=== PATIENT | male | born 1945 | race Caucasian/White ===

== ENCOUNTER 2022-04-04 09:41 | Outpatient (CLI) | payer MEDICARE, SELFPAY | END 2022-04-04 09:42 | disposition home or self-care (01) | LOC: CT 09:46 | PROVIDERS: Visit Provider Internal Medicine Hematology & Oncology | DX: C18.9 Malignant neoplasm of colon, unspecified (principal) | CPT/HCPCS: 80053; 82378; 85025 ==

== ENCOUNTER 2022-09-10 09:00 | Outpatient (RCR) | payer MEDICARE, SELFPAY ==
--- NOTE | 2022-08-13 14:25 | URNOTE ---
Request received for authorization forKathleen ([id number]). Prior authorization is not required per [facility] Injectable Drug Authorization List.
--- NOTE | 2022-08-15 12:15 | ONC.NURNOTE ---
Dx: anemia of chronic kidney disease
[2022-09-03 11:30] VITALS: BP 175/72; PULSE 78; RESP 18; TEMP 36.6; O2SAT 95
[2022-09-03] MEDS: ferumoxytoL 510 MG in 0.9 % SODIUM CHLORIDE 250 ml 250 ML 534 MG IVPB (12:05)
[2022-09-10] MEDS: ferumoxytoL 510 MG in 0.9 % SODIUM CHLORIDE 250 ml 250 ML 1068 MG IVPB (12:03)
[2022-09-10 12:32] VITALS: BP 188/71; PULSE 47; RESP 16; TEMP 36.4; O2SAT 97
[2022-09-10 13:01] VITALS: BP 166/60; PULSE 46; RESP 18; TEMP 36.6; O2SAT 96
== END 2022-10-11 23:59 | disposition home or self-care (01) ==
LOC: CCIC 09:00
PROVIDERS: Visit Provider Internal Medicine Medical Oncology
DX: C18.9 Malignant neoplasm of colon, unspecified (principal)
CPT/HCPCS: 96365; 96374; 99212; 99214; 99215; J7050; Q0138

== ENCOUNTER 2023-05-05 10:34 | Emergency (ER) | payer MEDICARE, SELFPAY ==
[2023-05-05] VITALS (23 sets, daily range): BP systolic 152–191; BP diastolic 61–84; PULSE 54–66; RESP 16; TEMP 36.7; O2SAT 90–94; BMI 47.3
--- NOTE | 2023-05-05 11:22 | CRLHL7_ITS ---
For Patients: As a result of the Cures Act, medical imaging exams and procedure reports are released immediately into your electronic medical record. You may view this report before your referring provider. If you have questions, please contact your health care provider. INDICATION: Shortness of breath. TECHNIQUE: Chest 2 view(s) COMPARISON: Chest radiograph dated 03/26/2018. FINDINGS: Cardiomediastinal silhouette and pulmonary vasculature are normal. Streaky right basilar opacities, likely atelectasis. No focal consolidation. No significant layering pleural effusion. No pneumothorax. Multilevel degenerative changes of the visualized spine. IMPRESSION: Streaky right basilar opacities, likely atelectasis. No focal consolidation. Dictated by Hyacinth Jaramillo MD @ 05/05/2023 1:21:28 PM (Electronically Signed)
--- NOTE | 2023-05-05 11:22 | CRLHL7_ITS ---
For Patients: As a result of the Century Cures Act, medical imaging exams and procedure reports are released immediately into your electronic medical record. You may view this report before your referring provider. If you have questions, please contact your health care provider. INDICATION: L FLANK PAIN, HX OF STONE TECHNIQUE: CT abdomen and pelvis without contrast. COMPARISON: CT chest abdomen pelvis on 04/03/2021 and priors FINDINGS: LOWER CHEST: The heart is normal in size. No pericardial effusion. Coronary artery calcifications. Similar-appearing right basilar atelectasis/scarring with right lower thoracic pleural calcifications and thickening ABDOMEN/PELVIS: Stable low-density 1.2 centimeter lesion at the superior right hepatic lobe, likely benign cyst/hemangioma. The spleen is unremarkable. Pancreatic atrophy. No focal pancreatic lesions or ductal dilatation. The adrenal glands are unremarkable. No renal calculi. No hydroureteronephrosis. There is a dense exophytic cystic-like lesion at the upper pole of the left kidney, incompletely evaluated on this examination but favored to represent a hemorrhagic cyst. Low-density exophytic cystic lesion in the interpolar region of the right kidney measuring approximately 2.8 centimeters on this exam, likely representing a simple cyst, unchanged. There is some perinephric stranding of the left kidney. The bladder is unremarkable in appearance. The seminal vesicles, and prostate are unremarkable in appearance. No evidence of bowel obstruction. The appendix is normal in appearance. Sigmoid diverticulosis with some questionable faint pericolonic inflammatory changes. No free fluid or free air. No pathologically enlarged lymph nodes throughout the abdomen or pelvis. No abdominal aortic aneurysm. SOFT TISSUE/MUSCULOSKELETAL: Fat containing left inguinal hernia. No acute fracture or malalignment. 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 IMPRESSION: 1. No obstructing stones. No hydroureteronephrosis. 2. Minimal left perinephric stranding, a nonspecific finding. 3. Sigmoid diverticulosis with questionable faint pericolonic inflammatory changes, equivocal for mild acute sigmoid diverticulosis. 4. Hyperdense exophytic cystic lesion at the upper pole of the left kidney, favored to represent a hemorrhagic cyst, incompletely characterized on this exam. Recommend nonemergent, outpatient CT or MRI with a renal protocol for further assessment. Please note that all CT scans at this facility use dose modulation, iterative reconstruction, and/or weight-based dosing when appropriate to reduce radiation dose to as low as reasonably achievable. Dictated by Alfredo Smith MD @ 05/05/2023 12:40:42 PM (Electronically Signed)
--- OUTSIDE RECORDS SUMMARY | 2023-05-05 11:57 | XMS_ITS | Clinical Summary ---
Author Name Unknown Organization [facility] Address [address] [place] [address] Care Team Providers Care Process Equipment Operator Name Role Phone Clover Delaney M.D. Primary Care Provider [phone] Source Comments Patient records contain information from all sites at [facility]. For routine questions regarding patient records, call [phone] during business hours, M-F 8:00 AM - 5:00 PM Central Time. Record requests for emergency care only can be directed to [phone] at any time.[facility] Allergies Active Allergy Reactions Criticality Noted Date Comments Epinephrine Palpitations High 11/11/2012 Tachycardia Penicillins Itching,Rash Medium 11/11/2012 Medications Medication Sig Dispensed Refills Start Date End Date Status miscellaneous medical supply mis CPAP Supplies See Instructions, CPAP machine, mask 1 ea x 4 refills, headgear 1 ea x 2 refills, tubing 1 ea x 4 refills, filters 2 ea per month, tub 1 ea x 2 refills, mask seal 1 ea x 2 refills DX G47.33, length of need 99, 1 each, 0 Refill(s) 0 10/20/2016 Active miscellaneous medical supply misc Head Gear for CPAP Machine See Instructions, fax to patient at [phone], 1 each 0 01/17/2014 Active MULTIVITAMIN ORAL Daily Multiple Vitamins See Instructions, Take 1 tablet by mouth daily. 0 07/23/2013 Active ONETOUCH DELICA LANCETS 33 gauge misc 3 08/02/2018 Active loperamide (IMODIUM A-D) 2 mg tablet Take 2 mg by mouth as needed. 0 Active aspirin 81 mg chewable tablet Chew 1 tablet (81 mg total) daily. 90 tablet 3 01/06/2020 Active cyanocobalamin (VITAMIN B12) 1,000 mcg tablet Take 1,000 mcg by mouth daily. 0 Active DME CPAPIndications:Obs tructive Sleep Apnea Adult DME Order 1 each 0 08/27/2021 Active OneTouch Ultra Test stripsIndications:D iabetes Mellitus Type 2 (HCC) Use to test once daily 100 strip 3 12/31/2021 Active UltiCare Pen Needle 31 gauge x 1/4 needleIndications:D iabetes Mellitus Type 2 With Diabetic Neuropathy Hyperglycemic (HCC) Use to inject insulin daily 100 each 3 03/31/2022 Active pen needle, diabetic (UltiCare Pen Needle) 32 gauge x 1/4 needle 1 Injection daily. 100 each 3 04/07/2022 Active cholecalciferol (VITAMIN D3) 50 mcg (2,000 Unit) tablet Take 50 mcg by mouth daily. 0 Active multivitamin-eye (PRESERVISION LUTEIN) 226 mg-90 mg-5 mg-0.8 mg capsule Take 2 capsules by mouth daily. 0 Active iron,carbonyl-vitam in C (VITRON-C) 65 mg iron- [address] tablet Take 65 mg of iron by mouth daily. Do not crush or chew. 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 8 each 3 06/09/2022 4 Active irbesartan (AVAPRO) 75 mg tablet Take 1 tablet (75 mg total) by mouth daily. 90 tablet 3 07/29/2022 Active carvediloL (COREG) 12.5 mg tablet TAKE ONE TABLET BY MOUTH TWICE A DAY WITH MEALS 180 tablet 3 09/03/2022 Active glipiZIDE (GLUCOTROL XL) 10 mg 24 hr tabletIndications:D iabetes Mellitus Type 2 Hyperglycemia (HCC) Take 2 tablets (20 mg total) by mouth daily. 180 tablet 3 09/05/2022 Active predniSONE (DELTASONE) 5 mg tablet TAKE ONE TABLET BY MOUTH ONE TIME DAILY 90 tablet 3 10/23/2022 Active prednisoLONE acetate (PRED FORTE) 1 % ophthalmic suspension Instill 1 drop in left eye once daily 5 mL 0 11/06/2022 Active prednisoLONE acetate (PRED FORTE) 1 % ophthalmic suspension place 1 drop into the left eye once daily. 5 mL 0 11/06/2022 Active torsemide (DEMADEX) 10 mg tablet Take 3 tablets (30 mg total) by mouth daily. 270 tablet 3 01/16/2023 4 Active prednisoLONE acetate (PRED FORTE) 1 % ophthalmic suspension place 1 drop into the left eye once daily. 5 mL 0 02/05/2023 Active polyethylene glycol-electrolytes (GoLYTELY) 236-22.74-6.74 -5.86 gram solutionIndications :Cancer Colon Transverse Personal History Drink 1st portion of prep at 6 PM the evening before. 2nd portion must be started 3 hours before and finished 2 hours prior to report time 4000 mL 0 03/09/2023 Active insulin glargine (Lantus Solostar U-100 Insulin) 100 unit/mL (3 mL) injectionIndication s:Diabetes Mellitus Type 2 Hyperglycemia (HCC) Inject 16 Units under the skin at bedtime. 15 mL 3 03/16/2023 Active amLODIPine (NORVASC) 10 mg tablet Take 1 tablet (10 mg total) by mouth daily. 90 tablet 3 03/30/2023 4 Active doxazosin (CARDURA) 2 mg tablet Take 1 tablet (2 mg total) by mouth daily. 90 tablet 3 04/07/2023 4 Active sodium bicarbonate 650 mg tablet Take 1 tablet (650 mg total) by mouth 2 (two) times a day. 180 tablet 3 04/07/2023 Active sevelamer carbonate (RENVELA) 800 mg tablet Take 1 tablet (800 mg total) by mouth 3 (three) times a day with meals. 270 tablet 3 04/07/2023 4 Active calcium carbonate (TUMS) 500 mg (200 mg calcium) chewable tablet Chew 1 tablet (200 mg of calcium total) 3 (three) times a day with meals. 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 Sewell (oncology, [place]), follow up Dr. Sewell 6-12 months with CEA and labs Future colonoscopies: clear liquid diet (no red liquids) 2-3 days prior ? to beginning colonoscopy preparation. An alternate large-volume ? preparation should be used, given the inadequacy the of the initial ? preparation 03/2022. ? 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 Has benign features. Per oncology and repeat imaging was stable as of 03/2020 and determined to be benign ([facility]). 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 Did not tolerate CCB. Last Assessment & Plan: Tolerating lisinopril 5mg. BP not controlled. Increase to 10mg and recheck BMP in 2-3 weeks. Resolved Problems Problem Noted Date Diagnosed Date Resolved Date Unspecified Purulent Endophthalmitis Left Eye 11/12/19 22 03/04/2022 Wound Foot Open Subsequent Left 01/30/2018 07/01/2018 Wound Foot Open Subsequent Right 01/30/2018 07/01/2018 Wound Lower Leg Open Subsequent Right 01/30/2018 07/01/2018 Enterocolitis Due To Clostri dium Difficile Not Specified As Recurrent 01/29/2018 07/01/2018 Failure Renal Acute (Acute Kidney Injury) 01/26/2018 02/11/2019 Wound Foot Open Initial Right 01/26/2018 03/08/2018 Wound Foot Open Initial Left 01/26/2018 03/08/2018 Edema Leg 01/22/2018 07/01/2018 Fatigue 12/01/2017 07/01/2018 Overview: Added automatically from request for surgery [id number] Hematochezia 11/09/2017 07/01/2018 Overview: Added automatically from request for surgery [id number] Diarrhea 11/09/2017 09/28/2018 Overview: S/P recurrent c diff. Tolerates 1500mg metformin per day. Cancer Colon Family History 01/19/2015 01/06/2020 Encounters Date Type Department Care Team Description 05/05/2023 Refill Department of Community Internal Medicine in [address] [place] [phone] Clover Delaney M.D. Med Refill 04/21/2023 12:33 PM VE TEACHER - 04/21/2023 11:59 PM VE TEACHER Hospital Encounter Department of Laboratory Medicine in [address] [phone] Clover Delaney M.D. Chronic Kidney Disease (CKD), Stage 3b Glomerular Filtration Rate (GFR) 30 To 44 (HCC); 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) Discharge Disposition: Home or Self Care 04/17/2023 Orders Only Department of [facility] Internal Medicine in [place] [address] [place] [phone] Clover Delaney M.D. 04/15/2023 Orders Only Division of Nephrology and Hypertension in [address] [phone] Yris Hughes, L.G.S.W., M.S.W. Chronic Kidney Disease Stage 5 Glomerular Filtration Rate Less Than 15 (HCC) (Primary Dx) 04/13/2023 Orders Only Department of [facility] Internal Medicine in [place] [address] [place] [phone] Clover Delaney M.D. 04/07/2023 1:50 PM VE TEACHER Ancillary Procedure Department of Gastroenterology 04/07/2023 1:01 PM VE TEACHER - 04/07/2023 11:59 PM VE TEACHER Hospital Encounter Division of Gastroenterology in [place], [place] [address] [place] [address] Clover Delaney M.D. Cancer Colon Transverse Personal History Discharge Disposition: Home or Self Care 04/07/2023 9:15 AM VE TEACHER Telemedicine Division of Nephrology and Hypertension in [place], [place] [address] [place] [address] Mónica Portillo APRN, C.N.P., M.S. Hypertension And Chronic Kidney Disease Stage 5 (HCC) (Primary Dx); Proteinuria; 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; Acute Metabolic Acidosis; Hyperphosphatemia; Hypocalcemia 04/06/2023 10:30 AM VE TEACHER Diagnostic Department of Family Medicine, [facility], in [address] [place] [address] Mónica Portillo APRN, C.N.P., M.S. Hypertension And Chronic Kidney Disease Stage 5 (HCC) Discharge Disposition: Home or Self Care 04/01/2023 Orders [facility] [place] [place] [address] [place] [address] Frances Farah R.N. Chronic Kidney Disease (CKD), Stage 3b Glomerular Filtration Rate (GFR) 30 To 44 (HCC) (Primary Dx); Chronic Kidney Disease Stage 4 Glomerular Filtration Rate 15-29 (HCC) 03/30/2023 2:00 PM VE TEACHER Infusion Department of Infusion Therapy in [address] [phone] Mónica Portillo APRN, C.N.P., M.S. Anemia Of Chronic Renal Disease (Primary Dx) 03/30/2023 1:00 PM VE TEACHER Nurse Only Department of Family Medicine, [facility], in [address] [phone] Mónica Portillo APRN, C.N.P., M.S. Basilia Santiago L.P.N. Blood Pressure Check Discharge Disposition: Home or Self Care 03/30/2023 12:14 PM VE TEACHER - 03/30/2023 11:59 PM VE TEACHER Hospital Encounter Department of Laboratory Medicine in [address] [phone] Mónica Portillo APRN C.N.P., M.S. Hypertension And Chronic Kidney Disease Stage 5 (HCC); Anemia Of Chronic Renal Disease Discharge Disposition: Home or Self Care 03/30/2023 12:13 PM VE TEACHER Hospital Encounter Department of Laboratory Medicine in [address] [phone] Mónica Portillo APRN C.N.P., M.S. Hypertension And Chronic Kidney Disease Stage 5 (HCC); Anemia Of Chronic Renal Disease Discharge Disposition: Home or Self Care 03/30/2023 Clinical Communication Department of [facility] Internal Medicine in [place] [address] [place] [phone] Clover Delaney M.D. Follow-up Orders (Patient returning call to [place] to a Kathleen? I do not see any message./ ) 03/30/2023 Orders Only Division of Nephrology and Hypertension in [place], [place] [address] [place] [address] Mónica Portillo APRN, C.N.P., M.S. Hypertension And Chronic Kidney Disease Stage 5 (HCC) (Primary Dx) 03/30/2023 Orders Only Division of Nephrology and Hypertension in [place], [place] [address] [place] [address] Mónica Portillo APRN, C.N.P., M.S. 03/27/2023 Nurse Triage Department of Community Internal Medicine in [place] [address] [place] [phone] Tahira Melton R.N. Earwilbert 03/11/2023 Refill Division of Nephrology and Hypertension in [place], [place] [address] [place] [address] Mónica Portillo APRN, C.N.PJosé Luis, M.S. Med Refill 03/11/2023 Refill Department of [facility] Internal Medicine in [place] [address] [place] [phone] Clover Delaney M.D. Med Refill 03/09/2023 Clinical Communication Department of [facility] Internal Medicine in [address] [place] [phone] Clover Delaney M.D. 03/06/2023 3:00 PM VE TEACHER Office Visit Department of Ophthalmology in [place], [place] [address] [place] [phone] Justin Bunch M.D. 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 Anemia Of Chronic Renal Disease (Primary Dx) 03/02/2023 12:36 PM VE TEACHER - 03/02/2023 11:59 PM VE TEACHER Hospital Encounter Department of Laboratory Medicine in [address] [phone] Mónica Portillo APRN, C.N.P., M.S. Anemia Of Chronic Renal Disease Discharge Disposition: Home or Self Care 03/02/2023 8:30 AM VE TEACHER Telemedicine Division of Nephrology and Hypertension in [place], [place] [address] [place] [phone] Mónica Portillo APRN, Kassandra.N.P., M.S. Hypertension And Chronic Kidney Disease Stage 5 (HCC) (Primary Dx); Anemia Of Chronic Renal Disease 03/02/2023 Orders Only Division of Nephrology and Hypertension in [place], [place] [address] [place] [phone] Mónica Portillo APRN, C.N.P., M.S. 03/02/2023 Clinical Communication Department of Infusion Therapy in [address] [phone] Elaina Rueda R.N. Med Question (Feraheme) 02/26/2023 8:59 AM CDT - 02/26/2023 11:59 PM CDT Hospital Encounter Department of Laboratory Medicine in [address] [place] [phone] Mónica Portillo APRN, C.N.P., M.S. 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 Med Refill from Last 3 Months Immunizations Name Administration Dates Next Due DTaP (Infanrix, Tripedia) 05/08/2008 HepA Adult 11/22/1999,05/17/1999 HepB, Unspecified 09/05/2022(Deferred: Other) Influenza (IM) Preservative Free 01/25/2009,11/0 04/2007 Influenza Split 01/25/2009, 8,02/15/1997,1995 Influenza high dose QV(65 ye ars or older) (PF) 03/10/2022,02/02/2021 Influenza, Seasonal, Injectable 02/18/20 14,03/10/2006,03/10/2006,2004,03/27/2005,04/03/2003,04/03/2003,1 06/07/2001,04/06/2002,04/22/2001, 001,05/01/2000,05/01/2000,03/18/1999,,03/26/1998,03/26/1998,02/15/19 97,02/16/1996 Influenza, Unspecified 03/10/2016,03/08/2015, PCV13 03/08/2015 PPSV23 02/11/2019,03/01/2009,02/16/1996 RZV (SHINGRIX) 09/05/2022(Deferred: Patient dec ision) SARS-COV-2 (COVID-19) - PFIZ ER (12 years or older) 06/19/2020 SARS-COV-2 (COVID-19) - PFIZ ER TS(12 years or older) 10/05/2021 Td Preservative Free (TENIVA C, DECAVAC) 02/11/2019 Td, (Adult) Unspecified 02/16/1996 Tdap 05/08/2008 Tuberculin Skin Test, Unspecified 02/02/2018 influenza high dose (65 year s or older) (PF) 02/11/2019,02/10/2018,03/17/2017,2015,03/08/2015 influenza vaccine QV(FLUBLOK ) (18 years or older) (PF) 01/27/2020 Family History Medical History Relation Name Comments Pancreatic cancer Aunt paternal Cancer Father Sea Sanchez colon Colon cancer Father Sea Sanchez 4 1/2 yrs later after diagnosed Suicide Attempts Maternal Grandfather Benja Bermeo Com mitted suicide in 1955 Anesthesia problems Mother Nora Sanchez ponv Cancer Mother Nora Sanchez colon Colon cancer Mother Nora Sanchez Had it for 7 to 8 yrs prior to Depression Mother Nora Sanchez Hypertension Mother Nora Sanchez Obesity Mother Nora Sanchez Rectal cancer Mother Nora Sanchez Stroke Paternal Grandfather Zurdo sanchez in March 1960 Cancer Sister Kristin Sanchez colon Colon cancer Sister Kristin Sanchez A survivor, lance gnosed March 2005 Depression Sister Kristin Hargrovetad Hypertension Sister Kristin Ruizd Obesity Sister Kristin Sanchez Sleep apnea Sister Kristin Sanchez Heart disease Neg Hx Relation Name Status Comments Aunt paternal Father Sea Sanchez Maternal Grandfather Benja Bermeo Mother Nora Sanchez Paternal Grandfather Zurdo sanchez Sister Kristin Sanchez Alive Social History Tobacco Use Types Packs/Day Years Used Date Smoking Tobacco: Former Cigarettes 0 19 0 1961 - 12/26/1980 Smokeless Tobacco: Never Tobacco Cessation:Counseling Given: Not Answered Alcohol Use Standard Drinks/Week Comments Yes 0 (1 standard drink = 0.6 oz pur e alcohol) Maybe one drink per month Humiliation, Afraid, Rape, and Kick questionnair e Answer Date Recorded Within the last year, have y ou been afraid of your partner or ex-partner? No 07/28/2022 Within the last year, have y ou been humiliated or emotionally abused in other ways by your partner or ex-partner? No Within the last year, have y ou been kicked, hit, slapped, or otherwise physically hurt by your partner or ex-partner? No 07/28/2022 Within the last year, have y ou been raped or forced to have any kind of sexual activity by your partner or ex-partner? No 07/28/2022 Social Connection and Isolation Panel [NHANES] A nswer Date Recorded In a typical week, how many times do you talk on the phone with family, friends, or neighbors? Once a week 07/29/19 How often do you get togethe r with friends or relatives? Once a week 07/28/2022 How often do you attend chur ch or restorationism services? Never 07/28/2022 Do you belong to any clubs o r organizations such as taoist groups, unions, fraternal or athletic groups, or school groups? Yes 07/28/2022 How often do you attend meet ings of the clubs or organizations you belong to? 1 to 4 times per year 07/28/2022 Are you , , di vorced, , never , or living with a partner? 07/28/2022 AUDIT-C Answer Date Recorded Q1: How often do you have a drink containing alc ohol? Monthly or less 07/28/2022 Q2: How many drinks containi ng alcohol do you have on a typical day when you are drinking? 1 or 2 07/28/2022 Q3: How often do you have si x or more drinks on one occasion? Never 07/28/2022 Overall Financial Resource Strain (CARDIA) Answe r Date Recorded How hard is it for you to pa y for the very basics like food, housing, medical care, and heating? Not very hard 07/28/2022 PHQ-2 Answer Date Recorded PHQ-2 Score 0 06/06/2022 [facility] - Occupational Stress Questionnaire Answer Date Recorded Do you feel stress - tense, restless, nervous, or anxious, or unable to sleep at night because your mind is troubled all the time - these days? Only a little 07/28/2022 Exercise Vital Sign Answer Date Recorde d On average, how many days pe r week do you engage in moderate to strenuous exercise (like a brisk walk)? 4 days 07/28/2022 On average, how many minutes do you engage in exercise at this level? 30 min 07/28/2022 Hunger Vital Sign Answer Date Recorded Within the past 12 months, y ou worried that your food would run out before you got the money to buy more. Never true 07/29/19 23 Within the past 12 months, t he food you bought just didn't last and you didn't have money to get more. Never true 07/28/2022 PRAPARE - Transportation Answer Date Re corded In the past 12 months, has l ack of transportation kept you from medical appointments or from getting medications? No 06/2022 In the past 12 months, has l ack of transportation kept you from meetings, work, or from getting things needed for daily living? No 07/28/2022 Housing Stability Vital Sign Answer Awais e Recorded In the last 12 months, was t here a time when you were not able to pay the mortgage or rent on time? No 07/28/2022 In the last 12 months, how many places have you lived? 1 07/28/2022 In the last 12 months, was t here a time when you did not have a steady place to sleep or slept in a snf (including now)? No 07/28/2022 Depression Answer Date Recor ded PHQ-9 Total Score (max 27) 4 06/06 Nutrition Answer Date Recorded Nutrition: EVOO Fat Source Yes 07/28 On average, how many serving s of fruits and vegetables do you eat per day (serving size is equal to 1 cup or approximately the size of a tennis ball)? 4-5 07/28/2022 Dental Answer Date Recorded Dental: Regular Dentist Yes 06/20/19 Employment Answer Date Recorded Employment status Employed and actively working without restrictions 07/28/2022 Education Answer Date Recorded What is the highest level of school you have completed or the highest degree you have received? Professional school degree (e.g., MD, DDS, DVM, NACHO) 10/10/2020 Sex and Gender Information Value Date Recorded Sex Assigned at Male 05/13/2021 10:11 AM VE TEACHER Gender Identity Male 11/02/2017 7:22 PM CDT Sexual Orientation Straight 11/02/2017 7: 22 PM CDT Last Filed Vital Signs Vital Sign Reading Time Taken Comments Blood Pressure 174/83 04/07/2023 2:34 PM VE TEACHER Pulse 56 04/07/2023 2:34 PM VE TEACHER Temperature 36.7 ??C (98.1 ??F) 04/07/2023 2 :34 PM VE TEACHER Respiratory Rate 17 04/07/2023 2:34 PM VE TEACHER Oxygen Saturation 96% 04/07/2023 2:3 4 PM VE TEACHER Inhaled Oxygen Concentration - - Weight 152 kg (335 lb) 03/02/2023 8:22 AM VE TEACHER patient reported Height 177.8 cm (5' 10) 04/07/2023 1:1 9 PM VE TEACHER Body Mass Index 48.5 03/31/2022 2:55 PM VE TEACHER Plan of Treatment Upcoming Encounters Date Type Department Care Team (Latest Contact Info) Description 05/28/2023 10:00 AM VE TEACHER Appointment Department of Laboratory Medicine in [place] [address] [place] [address] Mónica Portillo APRN, C.N.P., M.S. [address] [place] [phone] 05/28/2023 10:10 AM VE TEACHER Appointment Department of Laboratory Medicine in [place] [address] [place] [phone] Mónica Portillo APRN, C.N.P., M.S. [address] [place] [phone] 05/29/2023 8:00 AM VE TEACHER Office Visit Department of Community Internal Medicine in [place] [address] [place] [phone] Clover Delaney M.D. [address] [place] [phone] Discharge Disposition: Home or Self Care 05/29/2023 10:15 AM VE TEACHER Appointment Department of Radiology, [facility], in [place], [place] [address] [place] [phone] Mónica Portillo APRN, C.N.P., M.S. [address] [place] [phone] 05/29/2023 1:00 PM VE TEACHER Procedure visit Department of Urology in [place], [place] [address] [place] [phone] Mónica Portillo APRN, C.N.P., M.S. [address] [place] [phone] 05/29/2023 3:00 PM VE TEACHER Education Division of Nephrology and Hypertension in [place], [place] [address] [place] [phone] Mónica Portillo APRN, C.N.P., M.S. [address] [place] [phone] Sandeep Galicia R.Garima [address] [place] [phone] 05/29/2023 4:00 PM VE TEACHER Comprehensive Visit Division of Nephrology and Hypertension in [place], [place] [address] [place] [phone] Sera Casiano M.D., Ph.D. [address] [place] [phone] 06/15/2023 2:00 PM VE TEACHER Ancillary Procedure Department of Ophthalmology in [place], [place] [address] [place] [phone] Justin Bunch M.D. [address] [place] [phone] 06/15/2023 2:30 PM VE TEACHER Ancillary Procedure Department of Ophthalmology in [place], [place] [address] [place] [phone] Justin Bunch M.D. [address] [place] [phone] 06/15/2023 2:45 PM VE TEACHER Office Visit Department of Ophthalmology in [place], [place] [address] [place] [phone] Justin Bunch M.D. [address] [place] [address] Health Maintenance Due Date Last Done Comments Visit: Medicare Annual Wellness 1945 Zoster Vaccines (1 of 2) 1964 Hepatitis B Vaccines (1 of 3 - Risk 3-dose series) 2005 Diabetic Office Visit with F oot Exam 02/12/2021 02/13/2020 (Performed elsewhere), 02/11/2019, 01/11/2015 Influenza Vaccine (#1) 2023 , 02/02/2021, 01/27/2020, Additional history exists Depression Screening (Annual PHQ-2) 04/27/2023 Fall Risk Screen (Annual) 04/27/2023 Hemoglobin A1C 06/29/2023 03/30/2023, 05/28, 03/31/2022, Additional history exists Office Visit for Blood Press ure Check / Re-check 06/29/2023 03/30/2023 Visit: Chronic Disease, age 18+ 09/06/2023 3, 09/05/2022 Dilated Eye Exam 03/06/2024 03/06/2023, , 09/08/2022, Additional history exists Creatinine Level (Kidney Fun ction Test) 03/30/2024 03/30/2023, 02/26/2023, 09/01/2022, Additional history exists Potassium Level 03/30/2024 03/30/2023, 110 05/2022, 09/01/2022, Additional history exists Sodium Level 03/30/2024 03/30/2023, 110 05/2022, 09/01/2022, Additional history exists Urine Albumin 03/30/2024 03/30/2023, 0511/2022, 07/25/2022, Additional history exists DTaP,Tdap,and Td Vaccines (4 - Td or Tdap) 02/11/2029 02/11/2019, 05/08/2008, 05/08/2008, Additional history exists Hepatitis A Vaccines Completed 11/22/1999, 05/17/19 00 Abdominal Aortic Aneurysm (A AA) Screen Discontinued 07/22/2017, 03/14/1998, 02/10/1998 Hepatitis C Screening Completed 01/27/2018 Pneumococcal vaccine (65+ years) Completed 02/11/2019, 03/08/2015, 03/01/2009, Additional history exists COVID-19 Vaccine Completed 01/24/2023, , 10/05/2021, Additional history exists Colonoscopy Discontinued 04/07/2023, 03/27, 04/08/2022, Additional history exists Colorectal Cancer Surveillance Discontinued CT Colonography Discontinued Cologuard Discontinued Procedures Procedure Name Priority Date/Time Associated Diagnosis Comments ANCA VASCULITIS PANEL, S Routine 04/21/2023 12:38 PM VE TEACHER Chronic Kidney Disease (CKD), Stage 3b Glomerular Filtration Rate (GFR) 30 To 44 (HCC) 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) SURGICAL PATHOLOGY Routine 04/07/2023 2: 10 PM VE TEACHER GASTROENTEROLOGY IMAGE EXAM Routine 04/07/2023 1:50 PM VE TEACHER COLONOSCOPY Routine 04/07/2023 1:48 PM VE TEACHER Cancer Colon Transverse Personal History COLONOSCOPY Routine 04/07/2023 1:48 PM VE TEACHER Cancer Colon Transverse Personal History GLUCOSE POCT, B Routine 04/07/2023 1:28 PM VE TEACHER URINALYSIS WITH MICROSCOPIC Routine 03/30/2023 1:12 PM VE TEACHER Hypertension And Chronic Kidney Disease Stage 5 (HCC) Anemia Of Chronic Renal Disease ALBUMIN, RANDOM, U Routine 03/30/2023 1: 12 PM VE TEACHER Hypertension And Chronic Kidney Disease Stage 5 (HCC) Anemia Of Chronic Renal Disease HEMOGLOBIN A1C, B Routine 03/30/2023 12: 21 PM VE TEACHER Hypertension And Chronic Kidney Disease Stage 5 (HCC) Anemia Of Chronic Renal Disease RENAL FUNCTION PANEL, S Routine 12/04/20 23 12:21 PM VE TEACHER Hypertension And Chronic Kidney Disease Stage 5 (HCC) Anemia Of Chronic Renal Disease CBC WITHOUT DIFFERENTIAL, B Routine 03/30/2023 12:21 PM VE TEACHER Hypertension And Chronic Kidney Disease Stage 5 (HCC) Anemia Of Chronic Renal Disease OPTICAL COHERENCE TOMOGRAPHY - MACULA/RETINA - OU - BOTH EYES Routine 03/06/2023 4:28 PM VE TEACHER 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) ANGIOGRAPHY - OU - BOTH EYES Routine 03/06/2023 4:27 PM VE TEACHER 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) OPHTHALMOLOGY IMAGE EXAM Routine 03/06/2023 12:00 AM VE TEACHER CBC WITH DIFFERENTIAL, B Routine 03/02/2023 12:41 PM VE TEACHER Anemia Of Chronic Renal Disease PARATHYROID HORMONE (PTH), S Routine 02/26/2023 9:14 AM CDT Chronic Kidney Disease Stage 4 Glomerular Filtration Rate 15-29 (HCC) Anemia Of Chronic Renal Disease 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) Proteinuria IRON AND TOT IRON-BINDING CAPACITY, S/P Routine 02/26/2023 9:14 AM CDT Chronic Kidney Disease Stage 4 Glomerular Filtration Rate 15-29 (HCC) Anemia Of Chronic Renal Disease 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) Proteinuria FERRITIN, S Routine 02/26/2023 9:14 AM CDT Chronic Kidney Disease Stage 4 Glomerular Filtration Rate 15-29 (HCC) Anemia Of Chronic Renal Disease 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) Proteinuria RENAL FUNCTION PANEL, S Routine 02/27/20 9:14 AM CDT Chronic Kidney Disease Stage 4 Glomerular Filtration Rate 15-29 (HCC) Anemia Of Chronic Renal Disease 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) Proteinuria CBC WITHOUT DIFFERENTIAL, B Routine 02/26/2023 9:14 AM CDT Chronic Kidney Disease Stage 4 Glomerular Filtration Rate 15-29 (HCC) Anemia Of Chronic Renal Disease 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 LAB BLOOD ADD-ON Performing Organization Address City/State/[facility] Co de Phone Number [facility] [address] [place] [address] [facility] [address] [place] [address] * Surgical Pathology (04/07/2023 2:10 PM VE TEACHER) Pathologist [facility] 04/08/2023 3:39 PM VE TEACHER DTL Report electronically signed by Jayce Rogers M.D. I verify that I have examined all relevant slides/materials for the specimen(s) and rendered or confirmed the diagnosis. 04/08/2023 3:39 PM VE TEACHER DTL Gross Description Received in formalin labeled with the patient's name, medical record number, and colon-cecum, descending colon, sigmoid are eightpale ventura-pink irregular soft tissues, ranging from 0.3-1.1 cm in greatest dimension. The largest fragment is bisected and submittedentirely in cassette A1 with the remaining fragments. ??Grossed by AJB. 04/08/2023 3:39 PM VE TEACHER DTL Interpretation FINAL DIAGNOSIS A. Colon, cecum, descending, sigmoid, endoscopic biopsy: Tubular adenoma, low-grade dysplasia. 04/08/2023 3:39 PM VE TEACHER DTL Polyp (Colon) 04/07/2023 2:1 0 PM VE TEACHER Wilfred Lott M.D. LAB SURG PATH ORD ERABLES Performing Organization Address City/[facility]/ZIP Co de Phone Number [facility] [address] [place] [address], [facility] DTL [address] [place] [address] * Colonoscopy-Gastroenterology Image Exam (04/07/2023 1:50 PM VE TEACHER) 04/07/2023 1:48 PM VE TEACHER Narrative [facility] - 04/07/2023 2:54 PM VE TEACHER This order has been created and auto-finalized to support the import of images acquired without order. The clinical documentation to support these images can be found on the encounter that produced images. Provider Not In System IMG NON RAD IMAGI NG PROCEDURES Performing Organization Address City/[facility] Co de Phone Number [facility] NA * Colonoscopy (04/07/2023 1:48 PM VE TEACHER) 04/07/2023 1:48 PM VE TEACHER Impressions [employer] - 04/07/2023 2:47 PM VE TEACHER Post-op Diagnoses: ? - Diverticulosis in the sigmoid colon. ? - Patent end-to-end colo-colonic anastomosis, characterized by healthy ? appearing mucosa. ? - Three 3 to 4 mm polyps in the sigmoid colon, in the descending colon ? and in the cecum, removed with a cold snare. Resected and retrieved. ? - The examination was otherwise normal on direct and retroflexion views. Narrative [employer] - 04/07/2023 2:47 PM VE TEACHER Gonda 9 GI GI Patient Name: Philip Sanchez Date of : 1945 Age: 77 Procedure Date: 04/07/2023 Procedure: ? Colonoscopy Providers: ? Wilfred Lott MD, PANCHITO Alvarez ? (Fellow) Referring Provider: ?Clover Delaney Pre-op Diagnoses: ?High risk colon cancer surveillance: Personal ? history of colon cancer Recommendation: ? - Follow up recommendations for patients with polyps identified during ? colonoscopy are impacted by several factors including polyp ? characteristics (size, number and histology), adequacy of colonic ? preparation and pertinent family history. For [facility] providers, ? detailed recommendations are available as an AskMayoExpert Care Process ? Model: <[email or web address] ? There may be some circumstances, specifically those patients with a ? personal or family history of significant colorectal neoplasms where ? these guidelines may not apply. Consider consultation in ? Gastroenterology for all other polyp findings or for patients who are ? not at average risk. Findings: ? Diverticula were found in the sigmoid colon. ? There was evidence of a prior end-to-end colo-colonic anastomosis at 40 ? cm in the sigmoid colon. This was patent and was characterized by ? healthy appearing mucosa. The anastomosis was traversed. ? Three sessile polyps were found in the sigmoid colon, descending colon ? and cecum. The polyps were 3 to 4 mm in size. These polyps were removed ? with a cold snare. Resection and retrieval were complete. ? The exam was otherwise without abnormality on direct and retroflexion ? views. Procedural Details: ? The patient was seen, evaluated, history reviewed, airway and heart-lung ? exams were performed by licensed provider and were satisfactory for ? planned level of sedation care. ? The risks, benefits and alternatives for the procedure and sedation were ? discussed and informed consent was obtained. A procedural pause was ? conducted in the presence of assisting personnel to verify the correct ? patient identity and procedure to be performed. Throughout the ? procedure, the patient's blood pressure, pulse, and oxygen saturations ? were monitored continuously. The Pediatric Colonoscope was introduced ? under direct vision through the anus and advanced to 3 cm into the ? ileum. The colonoscopy was performed without difficulty. The patient ? tolerated the procedure well. The quality of the bowel preparation was ? evaluated using the BBPS ([place] Bowel Preparation Scale) with scores ? of: Right Colon = 3, Transverse Colon = 3 and Left Colon = 3 (entire ? mucosa seen well with no residual staining, small fragments of stool or ? opaque liquid). The total BBPS score equals 9. Estimated Blood Loss: ?Estimated blood loss was minimal. Complications: ? No immediate complications. Sedation: ? No sedation administered. Attending Participation: I personally performed the entire procedure. Wilfred Lott MD 04/07/2023 2:46:49 PM This report has been signed electronically. Number of Addenda: 0 Clover Delaney M.D. GI PROCEDURE ORDERA BLEAsh Performing Organization Address [facility] Co de Phone Number [facility] NA * Glucose, POCT (04/07/2023 1:28 PM VE TEACHER) Glucose, POCT, B 134 70 - 140 mg/dL 04/07/2023 1:31 PM VE TEACHER [facility] Cap[facility] 04/07/2023 1:31 PM VE TEACHER [facility] Blood 04/07/2023 1:28 PM VE TEACHER 04/07/2023 1:31 PM VE TEACHER Unknown Provider LAB POCT ORDERABLES- MANUAL Performing Organization Address [facility] Co de Phone Number [facility] [address] [place] [address], [facility] POC [address] [place] [address] * (ABNORMAL) Albumin, Random, Urine (03/30/2023 1:12 PM VE TEACHER) Pathologist [facility] Microalbumin 2148.9 mg/L 03/30/2023 1:47 PM VE TEACHER CNFL Creatinine 31 mg/dL 03/30/2023 1:26 PM VE TEACHER CNFL Albumin/Creatinin e Ratio 6932(H) <17 mg/g 03/30/2023 1:47 PM VE TEACHER CNFL Urine (Urine, Midstream) 03/30/2023 1:12 PM VE TEACHER 03/30/2023 1:12 PM VE TEACHER Mónica Portillo APRN, C.N.P., M.S. LAB URINE ORDERABLES Performing Organization Address City/State/[facility] Co de Phone Number [facility] [address] [place] [address], [facility] CNFL [facility] [place] [address] * (ABNORMAL) Urinalysis with Microscopic: Urine, Midstream (03/30/2023 1:12 PM VE TEACHER) Pathologist [facility] Source Urine, Urine, Midstream 03/30/2023 1:12 PM VE TEACHER CNFL Clarity Clear Clear 03/30/2023 1:15 PM VE TEACHER CNFL Color Yellow 03/30/2023 1:15 PM VE TEACHER CNFL Comment: ----REFERENCE VALUE---- Colorless Yellow Susana Blood Small(A) Negative 03/30/2023 1:15 PM VE TEACHER CNFL Nitrite Negative Negative 03/30/2023 1:15 PM VE TEACHER CNFL Leukocyte Esterase Negative Negative 03/30/2023 1:15 PM VE TEACHER CNFL Protein >=300(A) mg/dL 03/30/2023 1:15 PM VE TEACHER CNFL Comment: ----REFERENCE VALUE---- Negative Trace Glucose 100(A) Negative mg/dL 03/30/2023 1:15 PM VE TEACHER CNFL Ketones, QI(U) Negative Negative mg/dL 03/30/2023 1:15 PM VE TEACHER CNFL Bilirubin Negative Negative 03/30/2023 1:15 PM VE TEACHER CNFL pH 5.5 5.0 - 8.0 03/30/2023 1:15 PM VE TEACHER CNFL Specific [place] 1.020 1.001 - 1.035 03/30/2023 1:15 PM VE TEACHER CNFL Urobilinogen 0.2 0.2 - 1.0 mg/dL 03/30/2023 1:15 PM VE TEACHER CNFL White Blood Cells Occ-3 /hpf 03/30/2023 1:47 PM VE TEACHER CNFL Comment: ----REFERENCE VALUE---- Males: 0-3 Females: 0-10 Unknown: 0-10 Red Blood Cells 3-10(A) 0 - 2 /hpf 1:47 PM VE TEACHER CNFL Urine (Urine, Midstream) 03/30/2023 1:12 PM VE TEACHER 03/30/2023 1:12 PM VE TEACHER Kassandra Couch APRN.N.P., M.S. LAB URINE ORDERABLES Performing Organization Address City/State/[facility] Co de Phone Number [facility] [address] [place] [address], [facility] CNFL [facility] [place] [address] * (ABNORMAL) Renal Function Panel (03/30/2023 12:21 PM VE TEACHER) Only the most recent of2 resultswithin the time period is included. Potassium, P 5.0 3.6 - 5.2 mmol/L 03/30/2023 12:57 PM VE TEACHER CNFL Sodium, P 140 135 - 145 mmol/L 03/30/2023 12:57 PM VE TEACHER CNFL Chloride, P 105 98 - 107 mmol/L 03/30/2023 12:57 PM VE TEACHER CNFL Bicarbonate, P 19(L) 22 - 29 mmol/L 03/30/2023 12:57 PM VE TEACHER CNFL Anion Gap, P 16(H) 7 - 15 03/30/2023 12:57 PM VE TEACHER CNFL BUN (Blood Urea Nitrogen), P 79(H) 8 - 24 mg/dL 03/30/2023 12:57 PM VE TEACHER CNFL Creatinine 4.12(H) 0.74 - 1.35 mg/dL 03/30/2023 12:57 PM VE TEACHER CNFL Estimated GFR (eGFR) <15(L) >=60 mL/min/BSA 03/30/2023 12:57 PM VE TEACHER CNFL Comment: Estimated GFR calculated using the 2020 CKD_EPI creatinine equation. Calcium, Total, P 8.6(L) 8.8 - 10.2 mg/dL 03/30/2023 12:57 PM VE TEACHER CNFL Glucose, P 167(H) 70 - 140 mg/dL 03/30/2023 12:57 PM VE TEACHER CNFL Albumin, P 3.8 3.5 - 5.0 g/dL 03/30/2023 12:57 PM VE TEACHER CNFL Phosphorus (Inorganic), P 7.3(H) 2.5 - 4.5 mg/dL 03/30/2023 12:57 PM VE TEACHER CNFL Blood (Blood, Venous) 03/30/2023 12:21 PM VE TEACHER 03/30/2023 12:23 PM VE TEACHER Mónica Portillo APRN C.N.P., M.S. LAB BLOOD ADD-ON Performing Organization Address City/State/[facility] Co de Phone Number [facility] [address] [place] [address], [facility] [address] * (ABNORMAL) CBC without Differential (03/30/2023 12:21 PM VE TEACHER) Only the most recent of2 resultswithin the time period is included. Hemoglobin 9.9(L) 13.2 - 16.6 g/dL 03/30/2023 12:33 PM VE TEACHER CNFL Hematocrit 30.9(L) 38.3 - 48.6 % 03/30/2023 12:33 PM VE TEACHER CNFL Erythrocytes 3.26(L) 4.35 - 5.65 x10(12)/L 03/30/2023 12:33 PM VE TEACHER CNFL MCV 94.8 78.2 - 97.9 fL 03/30/2023 12:33 PM VE TEACHER CNFL RBC Distrib Width 14.4 11.8 - 14.5 % 03/30/2023 12:33 PM VE TEACHER CNFL Platelet Count 182 135 - 317 x10(9)/L 03/30/2023 12:33 PM VE TEACHER CNFL Leukocytes 10.0(H) 3.4 - 9.6 x10(9)/L 03/30/2023 12:33 PM VE TEACHER CNFL Blood (Blood, Venous) 03/30/2023 12:21 PM VE TEACHER 03/30/2023 12:23 PM VE TEACHER Mónica Portillo APRN, C.N.P., M.S. LAB BLOOD ADD-ON Performing Organization Address [facility] [place] [address], [place] [address] * (ABNORMAL) Hemoglobin A1c (03/30/2023 12:21 PM VE TEACHER) Hemoglobin A1c, B 6.8(H) 4.2 - 5.6 % 03/30/2023 12:36 PM VE TEACHER CNFL Comment: Hemoglobin A1c values greater than or equal to 6.5 percent are diagnostic for diabetes mellitus. ??Diagnosis should be confirmed by repeat testing. ??In diabetic patients, HbA1c goals should be discussed with healthcare provider. Blood (Blood, Venous) 03/30/2023 12:21 PM VE TEACHER 03/30/2023 12:23 PM VE TEACHER Drew Couch APRNNTaylor., M.S. LAB BLOOD ADD-ON Performing Organization Address City/[facility] Co de Phone Number [address] [address], [facility] [place] [address] * Optical Coherence Tomography (OCT) - Macula/Retina - OU - Both Eyes (03/06/2023 4:28 PM VE TEACHER) Narrative OPHTHALMOLOGY IMAGING EXAM - 03/06/2023 4:28 PM VE TEACHER See interpretation in note section Jon Juarez M.D. OPHPAT TOMOGRAP HY Performing Organization Address [facility]/ZIP Co de Phone Number OPHTHALMOLOGY IMAGING EXAM * Fluorescein Angiography - OU - Both Eyes (03/06/2023 4:27 PM VE TEACHER) Narrative OPHTHALMOLOGY IMAGING EXAM - 03/06/2023 4:27 PM VE TEACHER Pt declined Jon FLORES PHOTOGRA PHY Performing Organization Address [facility]/ZIP Co de Phone Number OPHTHALMOLOGY IMAGING EXAM * Eyes Spectralis OCT-Ophthalmology Image Exam (03/06/2023 12:00 AM VE TEACHER) Narrative [facility] - 03/06/2023 2:10 PM VE TEACHER This order has been created and auto-finalized to support the import of images acquired without order. The clinical documentation to support these images can be found on the encounter that produced images. Provider Not In System IMG NON RAD IMAGI NG PROCEDURES Performing Organization Address [facility] Co de Phone Number [facility] NA * (ABNORMAL) CBC with Differential, Blood (03/02/2023 12:41 PM VE TEACHER) Hemoglobin 9.7(L) 13.2 - 16.6 g/dL 03/02/2023 1:10 PM VE TEACHER CNFL Hematocrit 29.4(L) 38.3 - 48.6 % 03/02/2023 1:10 PM VE TEACHER CNFL Erythrocytes 3.17(L) 4.35 - 5.65 x10(12)/L 03/02/2023 1:10 PM VE TEACHER CNFL MCV 92.7 78.2 - 97.9 fL 03/02/2023 1:10 PM VE TEACHER CNFL RBC Distrib Width 14.4 11.8 - 14.5 % 03/02/2023 1:10 PM VE TEACHER CNFL Platelet Count 180 135 - 317 x10(9)/L 03/02/2023 1:10 PM VE TEACHER CNFL Leukocytes 10.3(H) 3.4 - 9.6 x10(9)/L 03/02/2023 1:10 PM VE TEACHER CNFL Neutrophils 8.51(H) 1.56 - 6.45 x10(9)/L 03/02/2023 1:10 PM VE TEACHER CNFL Lymphocytes 0.87(L) 0.95 - 3.07 x10(9)/L 03/02/2023 1:10 PM VE TEACHER CNFL Monocytes 0.71 0.26 - 0.81 x10(9)/L 03/02/2023 1:10 PM VE TEACHER CNFL Eosinophils 0.14 0.03 - 0.48 x10(9)/L 03/02/2023 1:10 PM VE TEACHER CNFL Basophils <0.04 0.01 - 0.08 x10(9)/L 03/02/2023 1:10 PM VE TEACHER CNFL Blood (Blood, Venous) 03/02/2023 12:41 PM VE TEACHER 03/02/2023 12:55 PM VE TEACHER Kassandra Couch APRN.N.P., M.S. LAB BLOOD ADD-ON Performing Organization Address City/[facility]/ZIP Co de Phone Number [facility] [address] [place] [address], [facility] [place] [address] * (ABNORMAL) Iron and Total Iron-Binding Capacity (02/26/2023 9:14 AM CDT) Iron 75 50 - 150 mcg/dL 02/26/2023 12:09 PM CDT RDWG Total Iron Binding Capacity 223(L) 250 - 400 mcg/dL 02/26/2023 12:09 PM CDT RDWG Percent Saturation 34 14 - 50 % 02/26/2023 12:09 PM CDT RDWG Blood (Blood, Venous) 02/26/2023 9:14 AM CDT 02/26/2023 11:45 AM CDT Kassandra Couch APRN.N.P., M.S. LAB BLOOD ADD-ON [facility] [address] [place] [address], [facility] in [address] [address] * (ABNORMAL) Parathyroid Hormone (PTH) (02/26/2023 9:14 AM CDT) Parathyroid Hormone (PTH), S 140(H) 15 - 65 pg/mL 02/26/2023 12:18 PM CDT RDW Comment: Biotin has been identified by the soil conservation aide as a potential interfering substance. Higher concentrations of biotin may be found in multivitamins, hair/nail supplements, and workout supplements. If the result does not match clinical observations, repeat testing after patient refrains from the use of supplements for at least 12 hours. Blood (Blood, Venous) 02/26/2023 9:14 AM CDT 02/26/2023 11:45 AM CDT Kassandra Couch APRN.N.P., M.S. LAB BLOOD ADD-ON [facility] [address] [place] [address], [facility] in [address] [phone] * (ABNORMAL) Ferritin (02/26/2023 9:14 AM CDT) Ferritin, S 533(H) 31 - 409 mcg/L 02/26/2023 12:18 PM CDT RDWG Comment: Biotin has been identified by the soil conservation aide as a potential interfering substance. Higher concentrations of biotin may be found in multivitamins, hair/nail supplements, and workout supplements. If the result does not match clinical observations, repeat testing after patient refrains from the use of supplements for at least 12 hours. Blood (Blood, Venous) 02/26/2023 9:14 AM CDT 02/26/2023 11:45 AM CDT Mónica Jordan Portillo APRN, C.N.P., M.S. LAB BLOOD ADD-ON [facility] [address] [id number], [place] RDWG [facility] [place] [address] [phone] from Last 3 Months Advance Directives For more information, please contact: [phone] Documents on File Type Date Recorded Patient Packer Expl anation Advance Directives 12/22/2017 11:40 AM Hea lt Care Directive Latest Code Status on File Code Status Date Activated Date Inactivated Comments Full Code 03/03/2022 7:19 AM 03/03/2022 1:38 PM Question Answer Comments Full Code: Not Discussed Due to: Not medically appropriate Code Status History Code Status Date Activated Date Inactivated Comments Full Code 01/29/2018 9:20 PM 02/02/2018 5:38 PM Question Answer Comments Full Code: Discussed Full Code 01/18/2018 12:19 AM 01/26/2018 6:38 PM Question Answer Comments Full Code: Not Discussed Due to: Patient not available Full Code 12/08/2017 4:40 PM 12/08/2017 6:46 PM Question Answer Comments Full Code: Discussed Full Code 12/08/2017 12:53 PM 12/08/2017 4:40 PM Question Answer Comments Full Code: Discussed Healthcare Agents on File Name Relationship Healthcare Agent Brenttx solo Communication Sayra Elkesabinemanfred Spouse Health Care Agent Kathie Doranjordan Daughter First Alternate Health Care Agent Monicakristian Boggs Daughter First Alternate Health Care Agent Care Teams Process Equipment Operator Relationship Specialty Start Date End Date Clover Delaney M.D. [address] [place] [phone] PCP - General Internal Medicine 11/23/17
--- OUTSIDE RECORDS SUMMARY | 2023-05-05 11:57 | XMS_ITS | Encounter Summary ---
Author Name Unknown Organization [facility] Address [address] [place] [address] Care Team Providers Care Tank Calibrator Name Role Phone Clover Delaney M.D. Primary Care Provider [phone]- [phone] Encounter Details Date Type Department Care Team (Latest Contact Info) Description 04/21/2023 12:33 PM QC ANALYST - 04/21/2023 11:59 PM QC ANALYST Hospital Encounter Department of Laboratory Medicine in [address] [phone] Clover Delaney M.D. 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 Never 07/28/2022 Do you belong to any clubs o r organizations such as restoration groups, unions, fraternal or athletic groups, or [...] Answer Date Recorded PHQ-2 Score 0 06/06/2022 [facility] [place] of Occupat ional Health - Occupational Stress [...] place to sleep or slept in a usp (including now)? No 07/28/2022 Depression Answer Date [...] Date Recorded Dental: Regular Dentist Yes 06/20/19 21 Employment Answer Date Recorded Employment status Employed and actively working without restrictions 07/28/2022 Education Answer Date Recorded What is the highest level of school you have completed or the highest degree you have received? Professional school degree (e.g., MD, DDS, DVM, NACHO) 10/10/2020 Sex and Gender Information Value Date Recorded Sex Assigned at Male 05/13/2021 10:11 AM QC ANALYST Gender Identity Male 11/02/2017 7:22 PM CDT Sexual Orientation Straight 11/02/2017 7: 22 PM CDT documented as of this encounter Medications at Time of Discharge Medication Sig Dispensed Refills Start Date End Date amLODIPine (NORVASC) 10 mg tablet Take 1 tablet (10 mg total) by mouth daily. 90 tablet 3 03/30/2023 03/29/2024 aspirin 81 mg chewable tablet Chew 1 tablet (81 mg total) daily. 90 tablet 3 01/06/2020 carvediloL (COREG) 12.5 mg tablet TAKE ONE TABLET BY MOUTH TWICE A DAY WITH MEALS 180 tablet 3 09/03/2022 cholecalciferol (VITAMIN D3) 50 mcg (2,000 Unit) tablet Take 50 mcg by mouth daily. 0 cyanocobalamin (VITAMIN B12) 1,000 mcg tablet Take 1,000 mcg by mouth daily. 0 DME CPAPIndications:Obstruct ysabel Sleep Apnea Adult DME Order 1 each 0 08/27/2021 doxazosin (CARDURA) 2 mg tablet Take 1 tablet (2 mg total) by mouth daily. 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 1 each 1 06/09/2022 glipiZIDE (GLUCOTROL XL) 10 mg 24 hr tabletIndications:Diabet es Mellitus Type 2 Hyperglycemia (HCC) Take 2 tablets (20 mg total) by mouth daily. 180 tablet 3 09/05/2022 insulin glargine (Lantus Solostar U-100 Insulin) 100 unit/mL (3 mL) injectionIndications:Subha betes Mellitus Type 2 Hyperglycemia (HCC) Inject 16 Units under the skin at bedtime. 15 mL 3 03/16/2023 irbesartan (AVAPRO) 75 mg tablet Take 1 tablet (75 mg total) by mouth daily. 90 tablet 3 07/29/2022 iron,carbonyl-vitamin C (VITRON-C) 65 mg iron- [address] tablet Take 65 mg of iron by mouth daily. Do not crush or chew. 0 loperamide (IMODIUM A-D) 2 mg tablet Take 2 mg by mouth as needed. 0 miscellaneous medical supply [facility] [place]AP Supplies See Instructions, CPAP machine, mask 1 ea x 4 refills, headgear 1 ea x 2 refills, tubing 1 ea x 4 refills, filters 2 ea per month, tub 1 ea x 2 refills, mask seal 1 ea x 2 refills DX G47.33, length of need 99, 1 each, 0 Refill(s) 0 10/20/2016 miscellaneous medical supply [facility] Head Gear for CPAP Machine See Instructions, fax to patient at [phone], 1 each 0 01/17/2014 MULTIVITAMIN ORAL Daily Multiple Vitamins See Instructions, Take 1 tablet by mouth daily. 0 07/23/2013 multivitamin-eye (PRESERVISION LUTEIN) 226 mg-90 mg-5 mg-0.8 mg capsule Take 2 capsules by mouth daily. 0 ONETOUCH DELICA LANCETS 33 gauge [facility] 3 08/02/2018 OneTouch Ultra Test stripsIndications:Diabet es Mellitus Type 2 (HCC) Use to test once daily 100 strip 3 12/31/2021 polyethylene glycol-electrolytes (GoLYTELY) 236-22.74-6.74 -5.86 gram solutionIndications:Canc er Colon Transverse Personal History Drink 1st portion of prep at 6 PM the evening before. 2nd portion must be started 3 hours before and finished 2 hours prior to report time 4000 mL 0 03/09/2023 prednisoLONE acetate (PRED FORTE) 1 % ophthalmic suspension Instill 1 drop in left eye once daily 5 mL 0 11/06/2022 prednisoLONE acetate (PRED FORTE) 1 % ophthalmic suspension place 1 drop into the left eye once daily. 5 mL 0 11/06/2022 prednisoLONE acetate (PRED FORTE) 1 % ophthalmic suspension place 1 drop into the left eye once daily. 5 mL 0 02/05/2023 predniSONE (DELTASONE) 5 mg tablet TAKE ONE TABLET BY MOUTH ONE TIME DAILY 90 tablet 3 10/23/2022 sevelamer carbonate (RENVELA) 800 mg tablet Take 1 tablet (800 mg total) by mouth 3 (three) times a day with meals. 270 tablet 3 04/07/2023 04/06/2024 sodium bicarbonate 650 mg tablet Take 1 tablet (650 mg total) by mouth 2 (two) times a day. 180 tablet 3 04/07/2023 torsemide (DEMADEX) 10 mg tablet Take 3 tablets (30 mg total) by mouth daily. 270 tablet 3 01/16/2023 01/16/2024 UltiCare Pen Needle 31 gauge x 1/4 needleIndications:Diabet es Mellitus Type 2 With Diabetic Neuropathy Hyperglycemic (HCC) Use to inject insulin daily 100 each 3 03/31/2022 documented as of this encounter Plan of Treatment Upcoming Encounters Date Type Department Care Team (Latest Contact Info) Description 05/28/2023 10:00 AM QC ANALYST Appointment Department of Laboratory Medicine in [place] [address] [place] [phone] Mónica Portillo APRN, C.N.P., M.S. [address] [place] [phone] 05/28/2023 10:10 AM QC ANALYST Appointment Department of Laboratory Medicine in [place] [address] [place] [phone] Mónica Portillo APRN, C.N.P., M.S. [address] [place] [phone] 05/29/2023 8:00 AM QC ANALYST Office Visit Department of Community Internal Medicine in [place] [address] [place] [phone] Clover Delaney M.D. [address] [place] [phone] Discharge Disposition: Home or Self Care 05/29/2023 10:15 AM QC ANALYST Appointment Department of Radiology, [facility] in [place], [place] [address] [place] [phone] Mónica Portillo APRN, C.N.P., M.S. [address] [place] [phone] 05/29/2023 1:00 PM QC ANALYST Procedure visit Department of Urology in [place], [place] [address] [place] [phone] Mónica Portillo APRN, C.N.P., M.S. [address] [place] [phone] 05/29/2023 3:00 PM QC ANALYST Education Division of Nephrology and Hypertension in [place], [place] [address] [place] [phone] Mónica Portillo APRN, C.NJosé LuisP., M.S. [address] [place] [phone] Sandeep Galicia R.N. [address] [place] [phone] 05/29/2023 4:00 PM QC ANALYST Comprehensive Visit Division of Nephrology and Hypertension in [place], [place] [address] [place] [phone] Sera Casiano M.D., Ph.D. [address] [place] [phone] 06/15/2023 2:00 PM QC ANALYST Ancillary Procedure Department of Ophthalmology in [place], [place] [address] [place] [phone] Justin Bunch M.D. [address] [place] [phone] 06/15/2023 2:30 PM QC ANALYST Ancillary Procedure Department of Ophthalmology in [place], [place] [address] [place] [phone] Justin Bunch M.D. [address] [place] [phone] 06/15/2023 2:45 PM QC ANALYST Office Visit Department of Ophthalmology in [place], [place] [address] [place] [phone] Justin Bunch M.D. 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 [address] [place] [phone] PCP - General Internal Medicine 11/23/17 documented as of this encounter
--- OUTSIDE RECORDS SUMMARY | 2023-05-05 11:57 | XMS_ITS | Encounter Summary ---
Author Name Unknown Organization [facility] Address [address] [place] [address] Care Team Providers Care Small Craft Operator Name Role Phone Cloevr Delaney M.D. Primary Care Provider [phone]- [phone] Reason for Visit * Reason Comments Med Refill Encounter Details Date Type Department Care Team (Late st Contact Info) Description 05/05/2023 Refill Department of Community Internal Medicine in [address] [place] [phone] Clover Delaney M.D. [address] [place] [phone] Med Refill Social History Tobacco Use Types Packs/Day Years [...] often do you attend chur ch or islam services? Never 07/28/2022 Do you belong to any clubs o r organizations such as confucianist groups, unions, fraternal or athletic groups, or [...] Answer Date Recorded PHQ-2 Score 0 06/06/2022 [facility] of Occupat ional Health - Occupational Stress [...] place to sleep or slept in a custodial (including now)? No 07/28/2022 Depression Answer Date [...] Sex Assigned at Male 05/13/2021 10:11 AM ORTHOPAEDIC GENERAL Gender Identity Male 11/02/2017 7:22 PM CDT Sexual Orientation Straight 11/02/2017 7: 22 PM CDT documented as of this encounter Plan of Treatment Upcoming Encounters Date Type Department Care Team (Latest Contact Info) Description 05/28/2023 10:00 AM ORTHOPAEDIC GENERAL Appointment Department of Laboratory Medicine in [place], [place] [address] [place] [phone] Mónica Portillo APRN, C.N.P., M.S. [address] [place] [phone] 05/28/2023 10:10 AM ORTHOPAEDIC GENERAL Appointment Department of Laboratory Medicine in [place], [place] [address] [place] [phone] Mónica Portillo APRN, C.N.P., M.S. [address] [place] [phone] 05/29/2023 8:00 AM ORTHOPAEDIC GENERAL Office Visit Department of Community Internal Medicine in [place], [place] [address] [place] [phone] Clover Delaney M.D. [address] [place] [phone] Discharge Disposition: Home or Self Care 05/29/2023 10:15 AM ORTHOPAEDIC GENERAL Appointment Department of Radiology, [facility], in [place], [place] [address] [place] [phone] Mónica Portillo APRN, C.N.P., M.S. [address] [place] [phone] 05/29/2023 1:00 PM ORTHOPAEDIC GENERAL Procedure visit Department of Urology in [place], [place] [address] [place] [phone] Mónica Portillo APRN, C.N.P., M.S. [address] [place] [phone] 05/29/2023 3:00 PM ORTHOPAEDIC GENERAL Education Division of Nephrology and Hypertension in [place], [place] [address] [place] [phone] Mónica Portillo APRN, C.N.P., M.S. [address] [place] [phone] Sandeep Galicia R.N. [address] [place] [phone] 05/29/2023 4:00 PM ORTHOPAEDIC GENERAL Comprehensive Visit Division of Nephrology and Hypertension in [address] [phone] Sera Casiano M.D., Ph.D. [address] [place] [phone] 06/15/2023 2:00 PM ORTHOPAEDIC GENERAL Ancillary Procedure Department of Ophthalmology in [place], [place] [address] [place] [phone] Justin Bunch M.D. [address] [place] [phone] 06/15/2023 2:30 PM ORTHOPAEDIC GENERAL Ancillary Procedure Department of Ophthalmology in [address] [phone] Justin Bunch M.D. [address] [place] [phone] 06/15/2023 2:45 PM ORTHOPAEDIC GENERAL Office Visit Department of Ophthalmology in [address] [phone] Justin Bunch M.D. [address] [place] [phone] documented as of this encounter Visit Diagnoses Not on filedocumented in this encounter Additional Health Concerns Assessment Noted Time PHQ-9 Depression Total Score: 4 06/06/19 23 2:04 PM ORTHOPAEDIC GENERAL documented as of this encounter Care Teams Small Craft Operator Relationship Specialty Start Date End Date Clover Delaney M.D. [address] [place] [phone] PCP - General Internal Medicine 11/23/17 documented as of this encounter
--- OUTSIDE RECORDS SUMMARY | 2023-05-05 11:57 | XMS_ITS ---
Author Name Unknown Organization [facility] Address [address] [place] [address] Care Team Providers Care Experimental Outboard Motors Mechanic Name Role Phone Unavailable Unavailable Unavailable Surgery Details Not on file Complications Check Surgery Details section. Procedure Estimated Blood Loss Check Surgery Details section. Procedure Findings Check Surgery Details section. Procedure Specimens Taken Check Surgery Details section.
--- OUTSIDE RECORDS SUMMARY | 2023-05-05 11:57 | XMS_ITS ---
Author Name Unknown Organization [facility] Address [address] [place] [address] Care Team Providers Care Linen Room Houseperson Name Role Phone Clover Delaney M.D. Primary Care Provider Active Problems Problem Noted Date Diagnosed Date Anemia Of Chronic Renal Disease 07/29/2022 Anemia Iron Deficiency 07/29/2022 Vitrectomy Status Post 03/18/2022 Diabetes Mellitus Type 2 Wit h Proliferative Diabetic Retinopathy Without Macular Edema Bilateral 11/11/2021 Glaucoma Neovascular 11/09/2021 Overview: Added automatically from request for surgery [id number] Cancer Colon Transverse Personal History 020 Overview: 03/2018 No evidence of metastatic disease, stable colon, diverticulosis on CT 04/09/2020 ([facility] CT, [facility]) Repeat colonoscopy fall [address] Sewell (oncology, [place]), follow up Dr. Sewell 6-12 months with [...] of 03/2020 and determined to be benign ([facility]). Leukocytosis 01/22/2018 Malignant Neoplasm [...] 10mg and recheck BMP in 2-3 weeks. Current Oncology Plans darbepoetin kerri (ARANESP)* Plan Start Date:10/03/2022 Plan Provider:Mónica Portillo APRN, C.N.P., M.S. Linked Problems Malignant Neoplasm Of Transv erse Colon (HCC)Anemia Of Chronic Renal Disease Treatment Medications No medications scheduled. Past Plans Infusion Therapy 1 Plan Name Start Date Discontinue Date Treatment Medications Discontinue Reason Plan Provider FERUMOXYTOL (FERAHEME) 07/29/2022 09/03/2022 No medications scheduled. Therapy Complete Mónica Portillo APRN, C.N.P., M.S. ELECTROLYTE ADMINISTRATION 07/29/2022 12/17/2020 No medications scheduled. Upgrade 2019 Therapy Plan Conversion Tahira Fall M.D. Radiation Treatments * No radiation treatments are documented for this patient in [facility]. Treatments may have been administered in another system. Resolved Problems Problem Noted Date Diagnosed Date [...] Overview: Added automatically from request for surgery [id number] Hematochezia 11/09/2017 07/01/2018 Overview: Added automatically from request for surgery [id number] Diarrhea 11/09/2017 09/28/2018 Overview: S/P recurrent c diff. Tolerates 1500mg metformin per day. Cancer Colon Family History 01/19/2015 01/06/2020
--- OUTSIDE RECORDS SUMMARY | 2023-05-05 11:57 | XMS_ITS | Referral Summary ---
Author Name Unknown Organization [facility] Address [address] [place] [address] Care Team Providers Care Engineering Inspection Assistant Name Role Phone Clover Delaney M.D. Primary Care Provider [phone] Source Comments Patient records contain information from all sites at [facility]. For routine questions regarding patient records, call [phone] during business hours, M-F 8:00 AM - 5:00 PM Central Time. Record requests for emergency care only can be directed to [phone] at any time.[facility] Encounters Date Type Department Care Team Description 05/05/2023 Refill Department of Community Internal Medicine in [place] [address] [place] [address] Clover Delaney M.D. Med Refill 04/21/2023 12:33 PM OUTSIDE [employer]S SALESMAN - 04/21/2023 11:59 PM [employer]IDE [employer]S SALESMAN Hospital Encounter Department of Laboratory Medicine in [address] [address] Clover Delaney M.D. 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 04/15/2023 Orders Only Division of Nephrology and Hypertension in [place], [place] [address] [place] [address] Yris Hughes L.G.SSita., M.S.W. Chronic Kidney Disease Stage 5 Glomerular Filtration Rate Less Than 15 (HCC) (Primary Dx) 04/13/2023 Orders Only Department of Community Internal Medicine in [place] [address] [place] [address] Clover Delaney M.D. 04/07/2023 1:50 PM OUTSIDE [employer]S SALESMAN Ancillary Procedure Department of Gastroenterology 04/07/2023 1:01 PM OUTSIDE [employer]S SALESMAN - 04/07/2023 11:59 PM OUTSIDE [employer]S SALESMAN Hospital Encounter Division of Gastroenterology in [place], [place] [address] [place] [address] Clover Delaney M.D. Cancer Colon Transverse Personal History Discharge Disposition: Home or Self Care 04/07/2023 9:15 AM OUTSIDE PARTS SALESMAN Telemedicine Division of Nephrology and Hypertension in [place], [place] [address] [place] [address] Mónica Portillo APRN, C.N.P., M.S. Hypertension And Chronic Kidney Disease Stage 5 (HCC) (Primary Dx); Proteinuria; 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; Acute Metabolic Acidosis; Hyperphosphatemia; Hypocalcemia 04/06/2023 10:30 AM OUTSIDE PARTS SALESMAN Diagnostic Department of Family Medicine, [facility], in [place], [place] [address] [place] [address] Mónica Portillo APRN, C.N.P., M.S. Hypertension And Chronic Kidney Disease Stage 5 (HCC) Discharge Disposition: Home or Self Care 04/01/2023 Orders Only Division of Nephrology and Hypertension, [facility], in [place], [place] [address] [place] [address] Frances Madden R.N. Chronic Kidney Disease (CKD), Stage 3b Glomerular Filtration Rate (GFR) 30 To 44 (HCC) (Primary Dx); Chronic Kidney Disease Stage 4 Glomerular Filtration Rate 15-29 (HCC) 03/30/2023 Clinical Communication Department of Pending Sale To [facility] in [address] [place] [address] Clover Delaney M.D. Follow-up Orders (Patient returning call to [place] to jaquan HebertKathleen? I do not see any message./ ) 03/30/2023 Orders Only Division of Nephrology and Hypertension in [place], [place] [address] [place] [address] Mónica Portillo APRN, C.N.P., M.S. Hypertension And Chronic Kidney Disease Stage 5 (HCC) (Primary Dx) 03/30/2023 Orders Only Division of Nephrology and Hypertension in [place], [place] [address] [place] [address] Mónica Portillo APRN, C.N.P., M.S. 03/30/2023 2:00 PM [employer]IDE [employer]S SALESMAN Infusion Department of Infusion Therapy in [address] [address] Mónica Portillo APRN, Kassandra.N.P., M.S. Anemia Of Chronic Renal Disease (Primary Dx) 03/30/2023 12:14 PM OUTSIDE PARTS SALESMAN - 03/30/2023 11:59 PM OUT[employer]IDE PARTS SALESMAN Hospital Encounter Department of Laboratory Medicine in [address] [phone] Mónica Portillo APRN, C.N.P., M.S. Hypertension And Chronic Kidney Disease Stage 5 (HCC); Anemia Of Chronic Renal Disease Discharge Disposition: Home or Self Care 03/30/2023 12:13 PM [employer]IDE [employer]S SALESMAN Hospital Encounter Department of Laboratory Medicine in [address] [address] Mónica Portillo APRN, C.N.P., M.S. Hypertension And Chronic Kidney Disease Stage 5 (HCC); Anemia Of Chronic Renal Disease Discharge Disposition: Home or Self Care 03/30/2023 1:00 PM [employer]IDE [employer]S SALESMAN Nurse Only Department of Family Medicine, [facility], in [address] [address] Mónica Portillo APRN, C.N.P., M.S. Basilia Santiago L.P.N. Blood Pressure Check Discharge Disposition: Home or Self Care 03/27/2023 Nurse Triage Department of Pending Sale To [facility] in [address] [place] [address] Tahira Melton R.N. Earache 03/11/2023 Refill Division of Nephrology and Hypertension in [address] [address] Mónica Portillo APRN, C.NLesa, M.S. Med Refill 03/11/2023 Refill Department of Pending Sale To [facility] in [address] [place] [address] Clover Delaney M.D. Med Refill 03/09/2023 Clinical Communication Department of Pending Sale To [facility] [place] [address] [place] [address] Clover Delaney M.D. 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 03/02/2023 Clinical Communication Department of Infusion Therapy in [address] [address] Elaina Rueda, RJosé LuisN. Med Question ([facility]) 03/02/2023 1:30 PM OUT[employer]IDE [employer]S SALESMAN Infusion Department of Infusion Therapy in [address] [address] Mónica Portillo APRN, C.N.P., M.S. Anemia Of Chronic Renal Disease (Primary Dx) 03/02/2023 12:36 PM OUTSIDE [employer]S SALESMAN - 03/02/2023 11:59 PM OUTSIDE [employer]S SALESMAN Hospital Encounter Department of Laboratory Medicine in [address] [address] Mónica Portillo APRN, C.N.P., M.S. Anemia Of Chronic Renal Disease Discharge Disposition: Home or Self Care 03/02/2023 8:30 AM OUTSIDE PARTS SALESMAN Telemedicine Division of Nephrology and Hypertension in [place], [place] [address] [place] [address] Mónica Portillo APRN, C.N.P., M.S. Hypertension And Chronic Kidney Disease Stage 5 (HCC) (Primary Dx); Anemia Of Chronic Renal Disease 02/26/2023 8:59 AM CDT - 02/26/2023 11:59 PM CDT Hospital Encounter Department of Laboratory Medicine in [place], [place] [address] [place] [address] [address] [facility] [address] Mónica Portillo APRN, C.N.P., M.S. 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 Med Refill from Last 3 Months Allergies Active Allergy Reactions Criticality Noted Date Comments Epinephrine Palpitations High 11/11/2012 Tachycardia Penicillins Itching,Rash Medium 11/11/2012 Medications Medication Sig Dispensed Refills Start Date End Date Status miscellaneous medical supply [facility] CPAP Supplies See Instructions, CPAP machine, mask 1 ea x 4 refills, headgear 1 ea x 2 refills, tubing 1 ea x 4 refills, filters 2 ea per month, tub 1 ea x 2 refills, mask seal 1 ea x 2 refills DX G47.33, length of need 99, 1 each, 0 Refill(s) 0 10/20/2016 Active miscellaneous medical supply [facility] Head Gear for CPAP Machine See Instructions, fax to patient at [phone], 1 each 0 01/17/2014 Active MULTIVITAMIN ORAL Daily Multiple Vitamins See Instructions, Take 1 tablet by mouth daily. 0 07/23/2013 Active ONETOUCH DELICA LANCETS 33 gauge [facility] 3 08/02/2018 Active loperamide (IMODIUM A-D) 2 [...] Active flash glucose scanning reader (FREESTYLE BRIONNA) miscIndications:Subha betes Mellitus Type 2 With Proliferative Diabetic [...] Overview: Added automatically from request for surgery [id number] Cancer Colon Transverse Personal History 020 Overview: 03/2018 No evidence of metastatic disease, stable colon, diverticulosis on CT 04/09/2020 ([facility], [facility]) Repeat colonoscopy fall [address] Sewell (oncology, [place]), follow up Dr. Sewell 6-12 months with [...] of 03/2020 and determined to be benign ([facility]). Leukocytosis 01/22/2018 Malignant Neoplasm Of [...] Overview: Added automatically from request for surgery [id number] Hematochezia 11/09/2017 07/01/2018 Overview: Added automatically from request for surgery [id number] Diarrhea 11/09/2017 09/28/2018 Overview: S/P recurrent c diff. Tolerates 1500mg metformin per day. Cancer Colon Family History 01/19/2015 01/06/2020 Immunizations Name Administration Dates Next Due DTaP [...] ) (18 years or older) (PF) 01/27/2020 Social History Tobacco Use Types Packs/Day Years [...] often do you attend chur ch or presybeterian services? Never 07/28/2022 Do you belong to any clubs o r organizations such as samaritan groups, unions, fraternal or athletic groups, or [...] Answer Date Recorded PHQ-2 Score 0 06/06/2022 [facility] Occupat ional [facility] - Occupational Stress Questionnaire Answer Date Recorded [...] place to sleep or slept in a mcfp (including now)? No 07/28/2022 Depression Answer Date [...] Sex Assigned at Male 05/13/2021 10:11 AM OUTSIDE [employer]S SALESMAN Gender Identity Male 11/02/2017 7:22 PM CDT Sexual Orientation Straight 11/02/2017 7: 22 PM CDT Last Filed Vital Signs Vital Sign Reading Time Taken Comments Blood Pressure 174/83 04/07/2023 2:34 PM [employer]IDE [employer]S SALESMAN Pulse 56 04/07/2023 2:34 PM OUTSIDE [employer]S SALESMAN Temperature 36.7 ??C (98.1 ??F) 04/07/2023 2 :34 PM OUTSIDE PARTS SALESMAN Respiratory Rate 17 04/07/2023 2:34 PM OUTSIDE PARTS SALESMAN Oxygen Saturation 96% 04/07/2023 2:3 4 PM OUTSIDE PARTS SALESMAN Inhaled Oxygen Concentration - - Weight 152 kg (335 lb) 03/02/2023 8:22 AM OUTSIDE PARTS SALESMAN patient reported Height 177.8 cm (5' 10) 04/07/2023 1:1 9 PM OUTSIDE PARTS SALESMAN Body Mass Index 48.5 03/31/2022 2:55 PM OUTSIDE PARTS SALESMAN Plan of Treatment Upcoming Encounters Date Type Department Care Team (Latest Contact Info) Description 05/28/2023 10:00 AM OUTSIDE PARTS SALESMAN Appointment Department of Laboratory Medicine in [place] [address] [place] [phone] Mónica Portillo APRN, C.N.P., M.S. [address] [place] [phone] 05/28/2023 10:10 AM OUTSIDE PARTS SALESMAN Appointment Department of Laboratory Medicine in [place], [place] [address] [place] [address] Mónica Portillo APRN, C.N.P., M.S. [address] [place] [phone] 05/29/2023 8:00 AM OUTSIDE PARTS SALESMAN Office Visit Department of Community Internal Medicine in [place], [place] [address] [place] [address] Clover Delaney M.D. [address] [place] [phone] Discharge Disposition: Home or Self Care 05/29/2023 10:15 AM OUTSIDE PARTS SALESMAN Appointment Department of Radiology, [facility], in [place], [place] [address] [place] [address] Mónica Portillo APRN, C.N.P., M.S. [address] [place] [phone] 05/29/2023 1:00 PM OUTSIDE [employer]S SALESMAN Procedure visit Department of Urology in [place], [place] [address] [place] [address] Mónica Portillo APRN, C.N.P., M.S. [address] [place] [phone] 05/29/2023 3:00 PM OUTSIDE PARTS SALESMAN Education Division of Nephrology and Hypertension in [place], [place] [address] [place] [phone] Mónica Portillo APRN, C.N.P., M.S. [address] [place] [phone] Sandeep Galicia R.N. [address] [place] [phone] 05/29/2023 4:00 PM OUTSIDE [employer]S SALESMAN Comprehensive Visit Division of Nephrology and Hypertension in [place], [place] [address] [place] [address] Sera Casiano M.D., Ph.D. [address] [place] [phone] 06/15/2023 2:00 PM OUT[employer]IDE [employer]S SALESMAN Ancillary Procedure Department of Ophthalmology in [place], [place] [address] [place] [phone] Justin Bunch M.D. [address] [place] [phone] 06/15/2023 2:30 PM [employer]S SALESMAN Ancillary Procedure Department of Ophthalmology in [place], [place] [address] [place] [phone] Justin Bunch M.D. [address] [place] [phone] 06/15/2023 2:45 PM OUT[employer]IDE [employer]S SALESMAN Office Visit Department of Ophthalmology in [place], [place] [address] [place] [phone] Justin Bunch M.D. 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) SURGICAL PATHOLOGY Routine 04/07/2023 2: 10 PM OUT[employer]IDE PARTS SALESMAN GASTROENTEROLOGY IMAGE EXAM Routine 04/07/2023 1:50 PM OUTSIDE [employer]S SALESMAN COLONOSCOPY Routine 04/07/2023 1:48 PM OUT[employer]IDE [employer]S SALESMAN Cancer Colon Transverse Personal History COLONOSCOPY Routine 04/07/2023 1:48 PM OUT[employer]IDE [employer]S SALESMAN Cancer Colon Transverse Personal History GLUCOSE POCT, B Routine 04/07/2023 1:28 PM [employer]SIDE [employer]S SALESMAN URINALYSIS WITH MICROSCOPIC Routine 03/30/2023 1:12 PM [employer]IDE [employer]S SALESMAN Hypertension And Chronic Kidney Disease Stage 5 (HCC) Anemia Of Chronic Renal Disease ALBUMIN, RANDOM, U Routine 03/30/2023 1: 12 PM OUT[employer]IDE [employer]S SALESMAN Hypertension And Chronic Kidney Disease Stage 5 (HCC) Anemia Of Chronic Renal Disease HEMOGLOBIN A1C, B Routine 03/30/2023 12: 21 PM OUTSIDE [employer]S SALESMAN Hypertension And Chronic Kidney Disease Stage 5 (HCC) Anemia Of Chronic Renal Disease RENAL FUNCTION PANEL, S Routine 03/30/20 12:21 PM OUTSIDE [employer]S SALESMAN Hypertension And Chronic Kidney Disease Stage 5 (HCC) Anemia Of Chronic Renal Disease CBC WITHOUT DIFFERENTIAL, B Routine 03/30/2023 12:21 PM OUTSIDE [employer]S SALESMAN Hypertension And Chronic Kidney Disease Stage 5 (HCC) Anemia Of Chronic Renal Disease OPTICAL COHERENCE TOMOGRAPHY - MACULA/RETINA - OU - BOTH EYES Routine 03/06/2023 4:28 PM [employer]IDE [employer]S SALESMAN 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) ANGIOGRAPHY - OU - BOTH EYES Routine 03/06/2023 4:27 PM OUTSIDE [employer]S SALESMAN 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) OPHTHALMOLOGY IMAGE EXAM Routine 03/06/2023 12:00 AM OUTSIDE PARTS SALESMAN CBC WITH DIFFERENTIAL, B Routine 03/02/2023 12:41 PM OUTSIDE PARTS SALESMAN Anemia Of Chronic Renal Disease PARATHYROID HORMONE [...] Cytoplasmic Antibodies) Vasculitis Panel (04/21/2023 12:38 PM OUTSIDE PARTS SALESMAN) Pathologist [facility] Myeloperoxidase Ab, S <0.2 <0.4 (Negative ) U 04/22/2023 9:00 AM [facility] PARTS SALESM[facility] Protein[facility] 3 Ab (PR3), S <0.2 <0.4 (Negative ) U 04/22/2023 9:00 AM OUTSIDE PARTS SALESMAN [facility] Blood (Blood, Venous) 04/21/2023 12:38 PM OUTSIDE PARTS SALESMAN 04/22/2023 7:07 AM OUTSIDE PARTS SALESMAN Clover Delaney M.D. LAB BLOOD ADD-ON [facility] [address] [place] [address] [facility] [address] [place] [address] * Surgical Pathology (04/07/2023 2:10 PM OUTSIDE PARTS SALESMAN) Pathologist [facility] 04/08/2023 3:39 PM OUTSIDE PARTS SALESMAN DTL Report electronically signed by Jayce Rogers M.D. I verify that I have examined all relevant slides/materials for the specimen(s) and rendered or confirmed the diagnosis. 04/08/2023 3:39 PM OUTSIDE PARTS SALESMAN DTL Gross Description Received in formalin labeled with the patient's name, medical record number, and colon-cecum, descending colon, sigmoid are eightpale ventura-pink irregular soft tissues, ranging from 0.3-1.1 cm in greatest dimension. The largest fragment is bisected and submittedentirely in cassette A1 with the remaining fragments. ??Grossed by AJB. 04/08/2023 3:39 PM OUTSIDE PARTS SALESMAN DTL Interpretation FINAL DIAGNOSIS A. Colon, cecum, descending, sigmoid, endoscopic biopsy: Tubular adenoma, low-grade dysplasia. 04/08/2023 3:39 PM OUTSIDE PARTS SALESMAN DTL Polyp (Colon) 04/07/2023 2:1 0 PM OUTSIDE PARTS SALESMAN Wilfred Lott M.D. LAB SURG PATH ORD ERABLES Performing Organization Address City/[facility]/ZIP Co de Phone Number [facility] [address] [place] [address], [facility] DTL [address] [place] [address] * Colonoscopy-Gastroenterology Image Exam (04/07/2023 1:50 PM OUTSIDE PARTS SALESMAN) 04/07/2023 1:48 PM OUTSIDE PARTS SALESMAN Narrative IIMS - 04/07/2023 2:54 PM OUTSIDE PARTS SALESMAN This order has been created and auto-finalized to support the import of images acquired without order. The clinical documentation to support these images can be found on the encounter that produced images. Provider Not In System IMG NON RAD IMAGI NG PROCEDURES Performing Organization Address [facility] Co de Phone Number IIOR NA * Colonoscopy (04/07/2023 1:48 PM OUTSIDE PARTS SALESMAN) 04/07/2023 1:48 PM OUTSIDE PARTS SALESMAN Impressions [employer] - 04/07/2023 2:47 PM OUTSIDE [employer]S SALESMAN Post-op Diagnoses: ? - Diverticulosis in the sigmoid colon. ? - Patent end-to-end colo-colonic anastomosis, characterized by healthy ? appearing mucosa. ? - Three 3 to 4 mm polyps in the sigmoid colon, in the descending colon ? and in the cecum, removed with a cold snare. Resected and retrieved. ? - The examination was otherwise normal on direct and retroflexion views. Narrative [employer] - 04/07/2023 2:47 PM OUTSIDE PARTS SALESMAN Gonda 9 GI GI Patient Name: Philip Patel Date of : 1945 Age: 77 Procedure [...] ? preparation and pertinent family history. For [facility] providers, ? detailed recommendations are available as an AskMayoExpert Care Process ? Model: <[email or web address] ? There may be some circumstances, specifically [...] preparation was ? evaluated using the BBPS ([place] Bowel Preparation Scale) with scores ? of: [...] Addenda: 0 Clover Delaney M.D. GI PROCEDURE DAMION PEPE MATT BEGUM NA * Glucose, POCT (04/07/2023 1:28 PM OUTSIDE PARTS SALESMAN) Glucose, POCT, B 134 70 - 140 mg/dL 04/07/2023 1:31 PM OUTSIDE PARTS SALESMAN PCMO Site Capillary 04/07/2023 1:31 PM OUTSIDE [employer]S SALESMAN PCMO Blood 04/07/2023 1:28 PM OUTSIDE PARTS SALESMAN 04/07/2023 1:31 PM OUTSIDE PARTS SALESMAN Unknown Provider LAB POCT ORDERABLES- MANUAL POC RST ORIENTAL [facility]THOD[facility] OUTPATIENT LABS [address] [place] [address], [facility] PCMO [facility] POC [address] [place] [address] * (ABNORMAL) Albumin, Random, Urine (03/30/2023 1:12 PM OUTSIDE [employer]S SALESMAN) Microalbumin 2148.9 mg/L 03/30/2023 1:47 PM OUTSIDE PARTS SALESMAN CNFL Creatinine 31 mg/dL 03/30/2023 1:26 PM OUTSIDE PARTS SALESMAN CNFL Albumin/Creatinin e Ratio 6932(H) <17 mg/g 03/30/2023 1:47 PM OUTSIDE PARTS SALESMAN CNFL Urine (Urine, Midstream) 03/30/2023 1:12 PM OUTSIDE [employer]S SALESMAN 03/30/2023 1:12 PM OUTSIDE PARTS SALESMAN Drew Couch APRNN.P., M.S. LAB URINE ORDERABLES Performing Organization Address City/[facility]/ZIP Co de Phone Number [facility] [address] [place] [phone], [facility] in [address] [address] * (ABNORMAL) Urinalysis with Microscopic: Urine, Midstream (03/30/2023 1:12 PM OUTSIDE [employer]S SALESMAN) Source Urine, Urine, Midstream 03/30/2023 1:12 PM OUTSIDE [employer]S SALESMAN CNFL Clarity Clear Clear 03/30/2023 1:15 PM OUTSIDE PARTS SALESMAN CNFL Color Yellow 03/30/2023 1:15 PM OUTSIDE PARTS SALESMAN CNFL Comment: ----REFERENCE VALUE---- Colorless Yellow Susana Blood Small(A) Negative 03/30/2023 1:15 PM OUTSIDE PARTS SALESMAN CNFL Nitrite Negative Negative 03/30/2023 1:15 PM OUTSIDE [employer]S SALESMAN CNFL Leukocyte Esterase Negative Negative 03/30/2023 1:15 PM OUTSIDE [employer]S SALESMAN CNFL Protein >=300(A) mg/dL 03/30/2023 1:15 PM OUTSIDE PARTS SALESMAN CNFL Comment: ----REFERENCE VALUE---- Negative Trace Glucose 100(A) Negative mg/dL 03/30/2023 1:15 PM OUTSIDE PARTS SALESMAN CNFL Ketones, QI(U) Negative Negative mg/dL 03/30/2023 1:15 PM OUTSIDE PARTS SALESMAN CNFL Bilirubin Negative Negative 03/30/2023 1:15 PM OUTSIDE PARTS SALESMAN CNFL pH 5.5 5.0 - 8.0 03/30/2023 1:15 PM OUTSIDE PARTS SALESMAN CNFL Specific [place] 1.020 1.001 - 1.035 03/30/2023 1:15 PM OUTSIDE PARTS SALESMAN CNFL Urobilinogen 0.2 0.2 - 1.0 mg/dL 03/30/2023 1:15 PM OUTSIDE [employer]S SALESMAN CNFL White Blood Cells Occ-3 /hpf 03/30/2023 1:47 PM OUTSIDE PARTS SALESMAN CNFL Comment: ----REFERENCE VALUE---- Males: 0-3 Females: 0-10 Unknown: 0-10 Red Blood Cells 3-10(A) 0 - 2 /hpf 1:47 PM OUTSIDE [employer]S SALESMAN CNFL Urine (Urine, Midstream) 03/30/2023 1:12 PM OUTSIDE [employer]S SALESMAN 03/30/2023 1:12 PM OUTSIDE [employer]S SALESMAN Mónica Portillo APRN C.N.P., M.S. LAB URINE ORDERABLES Performing Organization Address City/State/[facility] Co de Phone Number [facility] [address] [place] [phone], [facility] CNFL [facility] in [address] [address] * (ABNORMAL) Renal Function Panel (03/30/2023 12:21 PM OUTSIDE [employer]S SALESMAN) Only the most recent of2 resultswithin the time period is included. Potassium, P 5.0 3.6 - 5.2 mmol/L 03/30/2023 12:57 PM OUTSIDE [employer]S SALESMAN CNFL Sodium, P 140 135 - 145 mmol/L 03/30/2023 12:57 PM OUTSIDE [employer]S SALESMAN CNFL Chloride, P 105 98 - 107 mmol/L 03/30/2023 12:57 PM OUTSIDE PARTS SALESMAN CNFL Bicarbonate, P 19(L) 22 - 29 mmol/L 03/30/2023 12:57 PM OUTSIDE PARTS SALESMAN CNFL Anion Gap, P 16(H) 7 - 15 03/30/2023 12:57 PM OUTSIDE PARTS SALESMAN CNFL BUN (Blood Urea Nitrogen), P 79(H) 8 - 24 mg/dL 03/30/2023 12:57 PM OUTSIDE PARTS SALESMAN CNFL Creatinine 4.12(H) 0.74 - 1.35 mg/dL 03/30/2023 12:57 PM OUTSIDE PARTS SALESMAN CNFL Estimated GFR (eGFR) <15(L) >=60 mL/min/BSA 03/30/2023 12:57 PM OUTSIDE PARTS SALESMAN CNFL Comment: Estimated GFR calculated using the 2020 CKD_EPI creatinine equation. Calcium, Total, P 8.6(L) 8.8 - 10.2 mg/dL 03/30/2023 12:57 PM OUTSIDE PARTS SALESMAN CNFL Glucose, P 167(H) 70 - 140 mg/dL 03/30/2023 12:57 PM OUTSIDE PARTS SALESMAN CNFL Albumin, P 3.8 3.5 - 5.0 g/dL 03/30/2023 12:57 PM OUTSIDE PARTS SALESMAN CNFL Phosphorus (Inorganic), P 7.3(H) 2.5 - 4.5 mg/dL 03/30/2023 12:57 PM OUTSIDE PARTS SALESMAN CNFL Blood (Blood, Venous) 03/30/2023 12:21 PM OUTSIDE PARTS SALESMAN 03/30/2023 12:23 PM OUTSIDE PARTS SALESMAN Mónica Portillo APRN C.N.P., M.S. LAB BLOOD ADD-ON [facility] [address] [place] [address], [facility] CNFL [facility] in [address] [address] * (ABNORMAL) CBC without Differential (03/30/2023 12:21 PM OUTSIDE PARTS SALESMAN) Only the most recent of2 resultswithin the time period is included. Hemoglobin 9.9(L) 13.2 - 16.6 g/dL 03/30/2023 12:33 PM OUTSIDE PARTS SALESMAN CNFL Hematocrit 30.9(L) 38.3 - 48.6 % 03/30/2023 12:33 PM OUTSIDE PARTS SALESMAN CNFL Erythrocytes 3.26(L) 4.35 - 5.65 x10(12)/L 03/30/2023 12:33 PM OUTSIDE PARTS SALESMAN CNFL MCV 94.8 78.2 - 97.9 fL 03/30/2023 12:33 PM OUTSIDE PARTS SALESMAN CNFL RBC Distrib Width 14.4 11.8 - 14.5 % 03/30/2023 12:33 PM OUTSIDE PARTS SALESMAN CNFL Platelet Count 182 135 - 317 x10(9)/L 03/30/2023 12:33 PM OUTSIDE PARTS SALESMAN CNFL Leukocytes 10.0(H) 3.4 - 9.6 x10(9)/L 03/30/2023 12:33 PM OUTSIDE PARTS SALESMAN CNFL Blood (Blood, Venous) 03/30/2023 12:21 PM OUTSIDE PARTS SALESMAN 03/30/2023 12:23 PM OUTSIDE PARTS SALESMAN Mónica Portillo APRN, C.N.P., M.S. LAB BLOOD ADD-ON [facility] [address] [place] [address], [facility] [place] [address] * (ABNORMAL) Hemoglobin A1c (03/30/2023 12:21 PM OUTSIDE PARTS SALESMAN) Hemoglobin A1c, B 6.8(H) 4.2 - 5.6 % 03/30/2023 12:36 PM OUTSIDE PARTS SALESMAN CNFL Comment: Hemoglobin A1c values greater than or equal to 6.5 percent are diagnostic for diabetes mellitus. ??Diagnosis should be confirmed by repeat testing. ??In diabetic patients, HbA1c goals should be discussed with healthcare provider. Blood (Blood, Venous) 03/30/2023 12:21 PM OUTSIDE PARTS SALESMAN 03/30/2023 12:23 PM OUTSIDE PARTS SALESMAN Drew Couch APRNNTaylor., M.S. LAB BLOOD ADD-ON Performing Organization Address [facility] Co de Phone Number [facility] [address] [place] [address], [facility] CNFL [facility] in [address] [address] * Optical Coherence Tomography (OCT) - Macula/Retina - OU - Both Eyes (03/06/2023 4:28 PM OUTSIDE PARTS SALESMAN) Narrative OPHTHALMOLOGY IMAGING EXAM - 03/06/2023 4:28 PM OUTSIDE PARTS SALESMAN See interpretation in note section Jon Juarez M.D. OPHTH TOMOGRAP HY Performing Organization Address [facility] Co de Phone Number OPHTHALMOLOGY IMAGING EXAM * Fluorescein Angiography - OU - Both Eyes (03/06/2023 4:27 PM OUTSIDE PARTS SALESMAN) Narrative OPHTHALMOLOGY IMAGING EXAM - 03/06/2023 4:27 PM OUTSIDE PARTS SALESMAN Pt declined Jon Juarez M.D. OPHTH PHOTOGRA PHY Performing Organization Address [facility] de Phone Number OPHTHALMOLOGY IMAGING EXAM * Eyes Spectralis OCT-Ophthalmology Image Exam (03/06/2023 12:00 AM OUTSIDE PARTS SALESMAN) Narrative IIMS - 03/06/2023 2:10 PM OUTSIDE PARTS SALESMAN This order has been created and auto-finalized to support the import of images acquired without order. The clinical documentation to support these images can be found on the encounter that produced images. Provider Not In System IMG NON RAD IMAGI NG PROCEDURES Performing Organization Address [facility] Co de Phone Number IIMS NA * (ABNORMAL) CBC with Differential, Blood (03/02/2023 12:41 PM OUTSIDE PARTS SALESMAN) Hemoglobin 9.7(L) 13.2 - 16.6 g/dL 03/02/2023 1:10 PM OUTSIDE PARTS SALESMAN CNFL Hematocrit 29.4(L) 38.3 - 48.6 % 03/02/2023 1:10 PM OUTSIDE PARTS SALESMAN CNFL Erythrocytes 3.17(L) 4.35 - 5.65 x10(12)/L 03/02/2023 1:10 PM OUTSIDE PARTS SALESMAN CNFL MCV 92.7 78.2 - 97.9 fL 03/02/2023 1:10 PM OUTSIDE PARTS SALESMAN CNFL RBC Distrib Width 14.4 11.8 - 14.5 % 03/02/2023 1:10 PM OUTSIDE PARTS SALESMAN CNFL Platelet Count 180 135 - 317 x10(9)/L 03/02/2023 1:10 PM OUTSIDE PARTS SALESMAN CNFL Leukocytes 10.3(H) 3.4 - 9.6 x10(9)/L 03/02/2023 1:10 PM OUTSIDE PARTS SALESMAN CNFL Neutrophils 8.51(H) 1.56 - 6.45 x10(9)/L 03/02/2023 1:10 PM OUTSIDE PARTS SALESMAN CNFL Lymphocytes 0.87(L) 0.95 - 3.07 x10(9)/L 03/02/2023 1:10 PM OUTSIDE PARTS SALESMAN CNFL Monocytes 0.71 0.26 - 0.81 x10(9)/L 03/02/2023 1:10 PM OUTSIDE PARTS SALESMAN CNFL Eosinophils 0.14 0.03 - 0.48 x10(9)/L 03/02/2023 1:10 PM OUTSIDE PARTS SALESMAN CNFL Basophils <0.04 0.01 - 0.08 x10(9)/L 03/02/2023 1:10 PM OUTSIDE PARTS SALESMAN CNFL Blood (Blood, Venous) 03/02/2023 12:41 PM OUTSIDE PARTS SALESMAN 03/02/2023 12:55 PM OUTSIDE PARTS SALESMAN Mónica Portillo APRN C.N.P., M.S. LAB BLOOD ADD-ON [facility] [address] [place] [address], BANNER[facility] in [address] [address] * (ABNORMAL) Iron and Total Iron-Binding Capacity (02/26/2023 9:14 AM CDT) [facility] Iron 75 50 - 150 mcg/dL 02/26/2023 12:09 PM CDT [facility] Total Iron Binding Capacity 223(L) 250 - 400 mcg/dL 02/26/2023 12:09 PM CDT [facility] Percent Saturation 34 14 - 50 % 02/26/2023 12:09 PM CDT [facility] Blood (Blood, Venous) 02/26/2023 9:14 AM CDT 02/26/2023 11:45 AM CDT Mónica Portillo APRN, C.N.P., M.S. LAB BLOOD ADD-ON [facility] [address] [place] [address], [facility] [place] [address] * (ABNORMAL) Parathyroid Hormone (PTH) (02/26/2023 9:14 AM CDT) Parathyroid Hormone (PTH), S 140(H) 15 - 65 pg/mL 02/26/2023 12:18 PM CDT [facility] Comment: Biotin has been identified by the medical affairs manager as a potential interfering substance. Higher concentrations of biotin may be found in multivitamins, hair/nail supplements, and workout supplements. If the result does not match clinical observations, repeat testing after patient refrains from the use of supplements for at least 12 hours. Blood (Blood, Venous) 02/26/2023 9:14 AM CDT 02/26/2023 11:45 AM CDT Mónica Portillo APRN, C.N.P., M.S. LAB BLOOD ADD-ON [facility] [address] [facility] [place] [address], [facility] in [place] [address] [place] [phone] * (ABNORMAL) Ferritin (02/26/2023 9:14 AM CDT) Ferritin, S 533(H) 31 - 409 mcg/L 02/26/2023 12:18 PM CDT [facility] Comment: Biotin has been identified by the medical affairs manager as a potential interfering substance. Higher concentrations of biotin may be found in multivitamins, hair/nail supplements, and workout supplements. If the result does not match clinical observations, repeat testing after patient refrains from the use of supplements for at least 12 hours. Blood (Blood, Venous) 02/26/2023 9:14 AM CDT 02/26/2023 11:45 AM CDT Mónica Portillo APRN, C.N.P., M.S. LAB BLOOD ADD-ON [facility] [address] [place] [address], [facility] in [place] [address] [place] [address] from Last 3 Months Advance Directives For more information, please contact: [phone] Documents on File Type Date Recorded Patient Neighborhood Conservation Officer Expl anation Advance Directives 12/22/2017 11:40 AM [facility] lt Care Directive Latest Code Status on [...] Agents on File Name Relationship Healthcare Agent Relationshi p Communication Sayra Amanda Spouse Health Care Agent Kathie Silveira Daughter First Alternate Health Care Agent Monica Boggs Daughter First Alternate Health Care Agent Care Teams Engineering Inspection Assistant Relationship Specialty Start Date End Date Clover Delaney M.D. [address] [place] [phone] PCP - General Internal Medicine 11/23/17
--- OUTSIDE RECORDS SUMMARY | 2023-05-05 11:58 | XMS_ITS | Encounter Summary ---
Author Name Unknown Organization [facility] Address [address] [place] [address] Care Team Providers Care Dielectric Testing Machine Operator Name Role Phone Clover Delaney M.D. Primary Care Provider [phone] Encounter Details Date Type Department Care Team (Late st Contact Info) Description 04/17/2023 Orders Only Department of Community Internal Medicine in [place], [place] [address] [place] [address] [place] [phone] Clover Delaney M.D. [address] [place] [address] Social History Tobacco Use Types Packs/Day Years [...] often do you attend chur ch or amish services? Never 07/28/2022 Do you belong to any clubs o r organizations such as bahai groups, unions, fraternal or athletic groups, or [...] Answer Date Recorded PHQ-2 Score 0 06/06/2022 [facility] - Occupational Stress [...] place to sleep or slept in a halfway (including now)? No 07/28/2022 Depression Answer Date [...] Sex Assigned at Male 05/13/2021 10:11 AM BEAUTY ADVISOR Gender Identity Male 11/02/2017 7:22 PM CDT Sexual Orientation Straight 11/02/2017 7: 22 PM CDT documented as of this encounter Plan of Treatment Upcoming Encounters Date Type Department Care Team (Latest Contact Info) Description 05/28/2023 10:00 AM BEAUTY ADVISOR Appointment Department of Laboratory Medicine in [place] [address] [place] [address] Mónica Portillo APRN, C.N.P., M.S. [address] [place] [phone] 05/28/2023 10:10 AM BEAUTY ADVISOR Appointment Department of Laboratory Medicine in [place] [address] [place] [phone] Mónica Portillo APRN, Kassandra.N.P., M.S. [address] [place] [phone] 05/29/2023 8:00 AM BEAUTY ADVISOR Office Visit Department of Community Internal Medicine in [place] [address] [place] [address] Clover Delaney M.D. [address] [place] [phone] Discharge Disposition: Home or Self Care 05/29/2023 10:15 AM BEAUTY ADVISOR Appointment Department of Radiology, [facility], in [place], [place] [address] [place] [phone] Mónica Portillo APRN, C.N.P., M.S. [address] [place] [phone] 05/29/2023 1:00 PM BEAUTY ADVISOR Procedure visit Department of Urology in [place], [place] [address] [place] [phone] Mónica Portillo APRN, Kassandra.N.P., M.S. [address] [place] [phone] 05/29/2023 3:00 PM BEAUTY ADVISOR Education Division of Nephrology and Hypertension in [place], [place] [address] [place] [phone] Mónica Portillo APRN, DrewNJosé LuisP., M.S. [address] [place] [phone] Sandeep Galicia R.N. [address] [place] [phone] 05/29/2023 4:00 PM BEAUTY ADVISOR Comprehensive Visit Division of Nephrology and Hypertension in [place], [place] [address] [place] [phone] Sera Casiano M.D., Ph.D. [address] [place] [phone] 06/15/2023 2:00 PM BEAUTY ADVISOR Ancillary Procedure Department of Ophthalmology in [place], [place] [address] [place] [phone] Justin Bunch M.D. [address] [place] [phone] 06/15/2023 2:30 PM BEAUTY ADVISOR Ancillary Procedure Department of Ophthalmology in [address] [phone] Justin Bunch M.D. [address] [place] [phone] 06/15/2023 2:45 PM BEAUTY ADVISOR Office Visit Department of Ophthalmology in [address] [phone] Justin Bunch M.D. [address] [place] [phone] documented as of this encounter Visit Diagnoses Not on filedocumented in this encounter Additional Health Concerns Assessment Noted Time PHQ-9 Depression Total Score: 4 06/06/19 23 2:04 PM BEAUTY ADVISOR documented as of this encounter Care Teams Dielectric Testing Machine Operator Relationship Specialty Start Date End Date Clover Delaney M.D. [address] [place] [phone] PCP - General Internal Medicine 11/23/17 documented as of this encounter
--- OUTSIDE RECORDS SUMMARY | 2023-05-05 11:58 | XMS_ITS | Encounter Summary ---
Author Name Unknown Organization [facility] Address [address] [place] [address] Care Team Providers Care Karate Instructor Name Role Phone Clover Delaney M.D. Primary Care Provider [phone] Reason for Referral * Outpatient (Routine) - Authorized Specialty Diagnoses / Procedures Referred By Yenny hunter Referred To Contact Nephrology and Hypertension Diagnoses Hypertension And Chronic Kidney Disease Stage 5 (HCC) Proteinuria Mónica Barry APRN, C.N.P., M.S. [address] [place] [phone] [facility] Referral ID Status Reason Start Date Expiration Date Visits Requested Visits Authorized [id number] Authorized Specialty Services Required 3 04/06/2024 1 1 Scheduling Instructions PLEASE ADD TO DR. LOUIS'S CALENDAR APRIL 21, [address] LOUIS'S SCHEDULE APRIL 21, 2023 PER HER REQUEST. THANKS! 1:[address] LOUIS'S CALENDAR APRIL 21 CAR ATTENDANT * Outpatient (Routine) - Authorized Specialty Diagnoses / Procedures Referred By Yenny t Referred To Contact Diagnoses Hypertension And Chronic Kidney Disease Stage 5 (HCC) Proteinuria Procedures URO Uroflow Mónica Barry APRN, C.N.P., M.S. [address] [place] [phone] [facility] Referral ID Status Reason Start Date Expiration Date V isits Requested Visits Authorized [id number] Authorized 04/07/2023 04/06/2024 1 1 CAR ATTENDANT * Outpatient (Routine) - Authorized Specialty Diagnoses / Procedures Referred By Contac t Referred To Contact Diagnoses Hypertension And Chronic Kidney Disease Stage 5 (HCC) Proteinuria Procedures US Kidneys Bilateral with Bladder Mónica Barry APRN, C.N.P., M.S. [address] [place] [phone] [facility] Referral ID Status Reason Start Date Expiration Date V isits Requested Visits Authorized [id number] Authorized 04/07/2023 04/06/2024 1 1 CAR ATTENDANT * Outpatient (Routine) - Authorized Specialty Diagnoses / Procedures Referred By Yenny hunter Referred To Contact Nutrition Diagnoses Hypertension And Chronic Kidney Disease Stage 5 (HCC) Proteinuria 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 Acute Metabolic Acidosis Hyperphosphatemia Hypocalcemia Mónica Barry APRN, C.N.P., M.S. [address] [place] [phone] [facility] Referral ID Status Reason Start Date Expiration Date V isits Requested Visits Authorized [id number] Authorized 04/07/2023 04/06/2024 1 1 Scheduling Instructions This appointment should ideally be scheduled AFTER the Optical Scientist Consults, but must at least be scheduled 48 hours after 24-hour urine collection is complete. Virtual visit is acceptable for this dietitian visit. Please coordinate labs with monthly CBC and okay for virtual follow up CAR ATTENDANT Reason for Visit * Outpatient (Routine) - Closed Specialty Diagnoses / Procedures Referred By Yenny hunter Referred To Contact Nephrology and Hypertension Mónica Barry APRN, C.N.P., M.S. [address] [place] [address] [facility] Referral ID Status Reason Start Date Expiration Date Visits Re quested Visits Authorized [id number] Closed 03/02/2023 03/01/2026 1 1 Encounter Details Date Type Department Care Team (Latest Contact Info) Description 04/07/2023 9:15 AM CLUB CAR ATTENDANT Telemedicine Division of Nephrology and Hypertension in [place], [place] [address] [place] [phone] Mónica Barry APRN, C.N.P., M.S. [address] [place] [phone] Hypertension And Chronic Kidney Disease Stage 5 (HCC) (Primary Dx); Proteinuria; 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; Acute Metabolic Acidosis; Hyperphosphatemia; Hypocalcemia Social History Tobacco Use Types Packs/Day Years [...] friends, or neighbors? Once a week 07/29/19 23 How often do you get togethe r with friends or relatives? Once a week 07/28/2022 How often do you attend chur ch or restorationist services? Never 07/28/2022 Do you belong to any clubs o r organizations such as congregation groups, unions, fraternal or athletic groups, or [...] Answer Date Recorded PHQ-2 Score 0 06/06/2022 [facility] Occupat ional Health - Occupational Stress [...] place to sleep or slept in a penitentiary (including now)? No 07/28/2022 Depression Answer Date [...] Sex Assigned at Male 05/13/2021 10:11 AM CLUB CAR ATTENDANT Gender Identity Male 11/02/2017 7:22 PM CDT Sexual Orientation Straight 11/02/2017 7: 22 PM CDT documented as of this encounter Progress Notes * Mónica Barry APRN, C.N.P., M.S. - 04/07/2023 9:15 AM CST SUBJECTIVE CHIEF COMPLAINT / REASON FOR VISIT Chronic kidney disease follow-up Follow-up conducted via real-time audio/video technology by Mónica Barry APRN, C.N.P., M.S. in [facility] to the patient in Patient's Home HISTORY OF PRESENT ILLNESS Mr. Patel is a 77 y.o. 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 He was seen for follow-up chronic kidney disease stage 4 -5 March 02, 2023 when creatinine spiked at 4.02 and GFR was 15 mL/min. At that time, Aranesp increased to 80 mcg every 4 weeks and he was counseled to obtain a home blood pressure monitor, measure and record vital signs daily. He presents for ongoing evaluation of chronic kidney disease. I was contacted by infusion therapy nurse April 01 when his blood pressure was elevated at the time of Aranesp injection. Amlodipine 10mg daily added that day. He does not have home blood pressures available for review but reports they have improved from systolics in the 140s and 150s and heart rate is always 50s. He attributes higher blood pressures to intermittent and self-limiting neuropathic pain to the right face. He did not initiate calcium carbonate phosphorus binding. He denies dyspnea, peripheral edema, chest pain, chest pressure, syncope, presyncope, appetite, nausea or vomiting, hematochezia or melena, dysuria or hematuria, change in urinary stream or difficulty voiding his bladder. Gastrointestinal: Positive for diarrhea (gi prep for colonoscopy later today). The following systems were negative: Constitutional, Respiratory, Cardiovascular, Genitourinary OBJECTIVE Vitals: 04/07/23 0907 PainSc: 0-No pain PHYSICAL EXAMINATION Constitutional General: He is not in acute distress. Neurological Mental Status: He is alert. Mental status is at baseline. Psychiatric Mood and Affect: Mood normal. Behavior: Behavior normal. ASSESSMENT / PLAN #1 Chronic kidney disease (CKD) stage 5, likely multifactorial and secondary to type 2 diabetes mellitus, hypertension, vasculitis, obesity, secondary FSGS and small-vessel renal disease Creatinine remains elevated at 4.12 and GFR is 14 mL/min. Electrolytes are satisfactory. I am alarmed his skyrocketed albumin creatinine ratio which has doubled over the last 6 months to 7000 mg. I will ask a collaborating medical equipment sales to assist with ruling out an acute process. Patient verbalizes u nderstanding and agreement with plan and follow-up in 4 weeks coordinated with next CBC and Aranesp. ADDENDUM: Dr. Louis recommends renal ultrasound and a uroflow to rule out urinary retention as acause. She may recommend kidney biopsy to determine if increased proteinuria and disease progression is related to diabetes or a recurrence/relapse of vasculitis. #2 CKD treatment options Referral placed for Kidney frog or oyster farmworker team to assist with reviewing CKD pathways and dialysis planning #3 Hypertension BP is persistently greater than goal. Albumin creatinine ratio has continued upward trend at [id number] mg per g. I am adding Doxazosin 2 mg at HS. He will continue to monitor home blood pressures and have these available for review when we meet again for follow-up. Anti-Hypertensives amLODIPine (NORVASC) 10 mg tablet Take 1 tablet (10 mg total) by mouth daily. carvediloL (COREG) 12.5 mg tablet TAKE ONE TABLET BY MOUTH TWICE A DAY WITH MEALS irbesartan (AVAPRO) 75 mg tablet Take 1 tablet (75 mg total) by mouth daily. torsemide (DEMADEX) 10 mg tablet Take 3 tablets (30 mg total) by mouth daily. #4 Anemia of CKD Hemoglobin is persistently less than goal at 9.9. February iron stores were replete. He has had 2 doses of Aranesp 80 mcg. I will increase the dose to 100 mcg every 4 weeks. #5 Hyperparathyroidism, renal secondary Persistent mild hypocalcemia. Phosphorus has continued upward trend at 7.3. Discontinue calcium carbonate 500 mg t.i.d. meals and snacks. Initiate sevelamer 800 mg t.i.d. and snacks. Continue vitaminD3 2000 International Unit daily. #6 Metabolic acidosis Bicarbonate is less than goal. Initiate sodium bicarbonate 650 mg twice daily. CAR ATTENDANT documented in this encounter Miscellaneous Notes * Addendum Note - Mónica Barry APRN, C.N.P., M.S. - 04/07/2023 9:15 AM CLUB CAR ATTENDANT Addended by: MÓNICA BARRY on: 04/23/2023 12:57 PM Modules accepted: Orders CAR ATTENDANT documented in this encounter Plan of Treatment Upcoming Encounters Date Type Department Care Team (Latest Contact Info) Description 05/28/2023 10:00 AM CLUB CAR ATTENDANT Appointment Department of Laboratory Medicine in [place], [place] [address] [place] [phone] Mónica Barry APRN, C.N.P., M.S. [address] [place] [phone] 05/28/2023 10:10 AM CLUB CAR ATTENDANT Appointment Department of Laboratory Medicine in [place], [place] [address] [place] [phone] Mónica Barry APRN, C.N.P., M.S. [address] [place] [phone] 05/29/2023 8:00 AM CLUB CAR ATTENDANT Office Visit Department of Community Internal Medicine in [place], [place] [address] [place] [phone] Clover Delaney M.D. [address] [place] [phone] Discharge Disposition: Home or Self Care 05/29/2023 10:15 AM CLUB CAR ATTENDANT Appointment Department of Radiology, [facility] in [place], [place] [address] [place] [address] Mónica Barry APRN, C.N.P., M.S. [address] [place] [phone] 05/29/2023 1:00 PM CLUB CAR ATTENDANT Procedure visit Department of Urology in [place], [place] [address] [place] [phone] Mónica Barry APRN, C.N.P., M.S. [address] [place] [phone] 05/29/2023 3:00 PM CLUB CAR ATTENDANT Education Division of Nephrology and Hypertension in [place], [place] [address] [place] [phone] Mónica Barry APRN, C.N.P., M.S. [address] [place] [phone] Sandeep Galicia R.N. [address] [place] [phone] 05/29/2023 4:00 PM CLUB CAR ATTENDANT Comprehensive Visit Division of Nephrology and Hypertension in [place], [place] [address] [place] [phone] Sera Casiano M.D., Ph.D. [address] [place] [phone] 06/15/2023 2:00 PM CLUB CAR ATTENDANT Ancillary Procedure Department of Ophthalmology in [place], [place] [address] [place] [phone] Justin Bunch M.D. [address] [place] [phone] 06/15/2023 2:30 PM CLUB CAR ATTENDANT Ancillary Procedure Department of Ophthalmology in [place], [place] [address] [place] [phone] Justin Bunch M.D. [address] [place] [phone] 06/15/2023 2:45 PM CLUB CAR ATTENDANT Office Visit Department of Ophthalmology in [place], [place] [address] [place] [phone] Justin Bunch M.D. [address] [place] [phone] Scheduled Orders Name Type Priority Associated Diagnoses Order Schedule Vitamin B12 Assay Lab Routine Hypertension And Chronic Kidney Disease Stage 5 (HCC) Proteinuria 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 Acute Metabolic Acidosis Hyperphosphatemia Hypocalcemia Expected: 05/01/2023, Expires: 04/07/2026 Folate Lab Routine Hypertension And Chronic Kidney Disease Stage 5 (HCC) Proteinuria 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 Acute Metabolic Acidosis Hyperphosphatemia Hypocalcemia Expected: 05/01/2023, Expires: 04/07/2026 US Kidneys Bilateral with Bladder Imaging RAD - Routine (most inpatients and all outpatients) Hypertension And Chronic Kidney Disease Stage 5 (HCC) Proteinuria Expected: 04/21/2023, Expires: 04/07/2024 URO Uroflow Procedure Routine Hypertension And Chronic Kidney Disease Stage 5 (HCC) Proteinuria Expected: 04/21/2023, Expires: 07/06/2024 Renal Function Panel Lab Routine Hypertension And Chronic Kidney Disease Stage 5 (HCC) Proteinuria Expected: 04/21/2023, Expires: 07/06/2024 Urinalysis with Microscopic: Urine, Midstream Lab Routine Hypertension And Chronic Kidney Disease Stage 5 (HCC) Proteinuria Expected: 04/21/2023, Expires: 07/06/2024 Cystatin C with Estimated GFR Lab Routine Hypertension And Chronic Kidney Disease Stage 5 (HCC) Proteinuria Expected: 04/21/2023, Expires: 07/06/2024 Scheduled Referrals Name Type Priority Associated Diagnoses Order Schedule Nutrition - Nephrology medical nutrition therapy consult (clinic) Outpatient Referral Routine Hypertension And Chronic Kidney Disease Stage 5 (HCC) Proteinuria 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 Acute Metabolic Acidosis Hyperphosphatemia Hypocalcemia Expected: 05/01/2023, Expires: 07/05/2024 Nephrology and Hypertension - General consult (clinic) Outpatient Referral Routine Hypertension And Chronic Kidney Disease Stage 5 (HCC) Proteinuria Expected: 04/21/2023, Expires: 07/06/2024 documented as of this encounter Visit Diagnoses Diagnosis Hypertension And Chronic Kidney Disease Stage 5 (HCC)- Primary Proteinuria 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 Acute Metabolic Acidosis Hyperphosphatemia Hypocalcemia documented in this encounter Additional Health Concerns Assessment Noted Time PHQ-9 Depression Total Score: 4 06/06/19 23 2:04 PM CLUB CAR ATTENDANT documented as of this encounter Care Teams Karate Instructor Relationship Specialty Start Date End Date Clover Delaney M.D. [address] [phone] PCP - General Internal Medicine 11/23/17 documented as of this encounter
--- OUTSIDE RECORDS SUMMARY | 2023-05-05 11:58 | XMS_ITS | Encounter Summary ---
Author Name Unknown Organization [facility] Address [address] [place] [address] Care Team Providers Care Engineering Test Mechanic Name Role Phone Clover Delaney M.D. Primary Care Provider [phone]- [phone] Encounter Details Date Type Department Care Team (Late st Contact Info) Description 03/30/2023 Orders Only Division of Nephrology and Hypertension in [place], [place] [address] [place] [address] Mónica Portillo, TRIXIE, C.N.P., M.S. [address] [place] [address] Social History Tobacco Use Types Packs/Day Years [...] often do you attend chur ch or sikh services? Never 07/28/2022 Do you belong to any clubs o r organizations such as rastafarian groups, unions, fraternal or athletic groups, or [...] Answer Date Recorded PHQ-2 Score 0 06/06/2022 [facility] [place] of Occupat ional Health - Occupational Stress [...] place to sleep or slept in a longterm (including now)? No 07/28/2022 Depression Answer Date [...] Sex Assigned at Male 05/13/2021 10:11 AM PRODUCT MARKETING INTERN Gender Identity Male 11/02/2017 7:22 PM CDT Sexual Orientation Straight 11/02/2017 7: 22 PM CDT documented as of this encounter Plan of Treatment Upcoming Encounters Date Type Department Care Team (Latest Contact Info) Description 05/28/2023 10:00 AM PRODUCT MARKETING INTERN Appointment Department of Laboratory Medicine in [place] [address] [place] [phone] Mónica Portillo APRN, C.N.P., M.S. [address] [place] [phone] 05/28/2023 10:10 AM PRODUCT MARKETING INTERN Appointment Department of Laboratory Medicine in [place] [address] [place] [phone] Mónica Portillo APRN, C.N.P., M.S. [address] [place] [phone] 05/29/2023 8:00 AM PRODUCT MARKETING INTERN Office Visit Department of Community Internal Medicine in [place] [address] [place] [phone] Clover Dealney M.D. [address] [place] [phone] Discharge Disposition: Home or Self Care 05/29/2023 10:15 AM PRODUCT MARKETING INTERN Appointment Department of Radiology, [facility], in [place], [place] [address] [place] [phone] Mónica Portillo APRN, Kassandra.N.P., M.S. [address] [place] [phone] 05/29/2023 1:00 PM PRODUCT MARKETING INTERN Procedure visit Department of Urology in [place], [place] [address] [place] [phone] Mónica Portillo APRN, C.N.P., M.S. [address] [place] [phone] 05/29/2023 3:00 PM PRODUCT MARKETING INTERN Education Division of Nephrology and Hypertension in [place], [place] [address] [place] [phone] Mónica Portillo APRN, C.NJosé LuisP., M.S. [address] [place] [phone] Sandeep Galicia R.N. [address] [place] [phone] 05/29/2023 4:00 PM PRODUCT MARKETING INTERN Comprehensive Visit Division of Nephrology and Hypertension in [place], [place] [address] [place] [phone] Sera Casiano M.D., Ph.D. [address] [place] [phone] 06/15/2023 2:00 PM PRODUCT MARKETING INTERN Ancillary Procedure Department of Ophthalmology in [address] [phone] Justin Bunch M.D. [address] [place] [phone] 06/15/2023 2:30 PM PRODUCT MARKETING INTERN Ancillary Procedure Department of Ophthalmology in [address] [phone] Justin Bunhc M.D. [address] [place] [phone] 06/15/2023 2:45 PM PRODUCT MARKETING INTERN Office Visit Department of Ophthalmology in [address] [phone] Justin Bunch M.D. [address] [place] [phone] documented as of this encounter Visit Diagnoses Not on filedocumented in this encounter Additional Health Concerns Assessment Noted Time PHQ-9 Depression Total Score: 4 06/06/19 23 2:04 PM PRODUCT MARKETING INTERN documented as of this encounter Care Teams Engineering Test Mechanic Relationship Specialty Start Date End Date Clover Delaney M.D. [address] [place] [phone] PCP - General Internal Medicine 11/23/17 documented as of this encounter
--- OUTSIDE RECORDS SUMMARY | 2023-05-05 11:58 | XMS_ITS | Encounter Summary ---
Author Name Unknown Organization [facility] Address [address] [place] [address] Care Team Providers Care Supervisor Photostat Name Role Phone Clover Delaney M.D. Primary Care Provider [phone]- [phone] Encounter Details Date Type Department Care Team (Late st Contact Info) Description 03/30/2023 Orders Only Division of Nephrology and Hypertension in [place], [place] [address] [place] [address] Mónica Portillo, TRIXIE, C.N.P., M.S. [address] [place] [address] Hypertension And Chronic Kidney Disease Stage 5 (HCC) (Primary Dx) Social History Tobacco Use Types Packs/Day Years [...] often do you attend chur ch or gnosticist services? Never 07/28/2022 Do you belong to any clubs o r organizations such as scientology groups, unions, fraternal or athletic groups, or [...] Answer Date Recorded PHQ-2 Score 0 06/06/2022 [facility] - Occupational Stress Questionnaire Answer [...] place to sleep or slept in a nursing home (including now)? No 07/28/2022 Depression Answer Date [...] Sex Assigned at Male 05/13/2021 10:11 AM SPECIAL EDUCATION BUS DRIVER Gender Identity Male 11/02/2017 7:22 PM CDT Sexual Orientation Straight 11/02/2017 7: 22 PM CDT documented as of this encounter Plan of Treatment Upcoming Encounters Date Type Department Care Team (Latest Contact Info) Description 05/28/2023 10:00 AM SPECIAL EDUCATION BUS DRIVER Appointment Department of Laboratory Medicine in [place], [place] [address] [place] [phone] Mónica Portillo APRN, C.N.P., M.S. [address] [place] [phone] 05/28/2023 10:10 AM SPECIAL EDUCATION BUS DRIVER Appointment Department of Laboratory Medicine in [place], [place] [address] [place] [phone] Mónica Portillo APRN, C.N.P., M.S. [address] [place] [phone] 05/29/2023 8:00 AM SPECIAL EDUCATION BUS DRIVER Office Visit Department of Community Internal Medicine in [place], [place] [address] [place] [phone] Clover Delaney M.D. [address] [place] [phone] Discharge Disposition: Home or Self Care 05/29/2023 10:15 AM SPECIAL EDUCATION BUS DRIVER Appointment Department of Radiology, [facility], in [place], [place] [address] [place] [phone] Mónica Portillo APRN, C.N.P., M.S. [address] [place] [phone] 05/29/2023 1:00 PM SPECIAL EDUCATION BUS DRIVER Procedure visit Department of Urology in [place], [place] [address] [place] [phone] Mónica Portillo APRN, C.N.P., M.S. [address] [place] [phone] 05/29/2023 3:00 PM SPECIAL EDUCATION BUS DRIVER Education Division of Nephrology and Hypertension in [place], [place] [address] [place] [phone] Mónica Portillo APRN, CJosé LuisN.P., M.S. [address] [place] [phone] Sandeep Galicia R.N. [address] [place] [phone] 05/29/2023 4:00 PM SPECIAL EDUCATION BUS DRIVER Comprehensive Visit Division of Nephrology and Hypertension in [place], [place] [address] [place] [phone] Sera Casiano M.D., Ph.D. [address] [place] [phone] 06/15/2023 2:00 PM SPECIAL EDUCATION BUS DRIVER Ancillary Procedure Department of Ophthalmology in [place], [place] [address] [place] [phone] Justin Bunch M.D. [address] [place] [phone] 06/15/2023 2:30 PM SPECIAL EDUCATION BUS DRIVER Ancillary Procedure Department of Ophthalmology in [address] [phone] Justin Bunch M.D. [address] [place] [phone] 06/15/2023 2:45 PM SPECIAL EDUCATION BUS DRIVER Office Visit Department of Ophthalmology in [address] [phone] Justin Bunch M.D. [address] [place] [phone] Scheduled Orders Name Type Priority Associated Diagnoses Orde r Schedule NEP Blood pressure check ([place], [place], [facility] Only) PFT Routine Hypertension And Chronic Kidney Disease Stage 5 (HCC) Expected: 04/06/2023, Expires: 06/28/2024 documented as of this encounter Visit Diagnoses Diagnosis Hypertension And Chronic Kidney Disease Stage 5 (HCC)- Primary documented in this encounter Additional Health Concerns Assessment Noted Time PHQ-9 Depression Total Score: 4 06/06/19 23 2:04 PM SPECIAL EDUCATION BUS DRIVER documented as of this encounter Care Teams Supervisor Photostat Relationship Specialty Start Date End Date Clover Delaney M.D. [address] [place] [phone] PCP - General Internal Medicine 11/23/17 documented as of this encounter
--- OUTSIDE RECORDS SUMMARY | 2023-05-05 11:58 | XMS_ITS | Encounter Summary ---
Author Name Unknown Organization [facility] Address [address] [place] [address] Care Team Providers Care Ash Handler Name Role Phone Clover Delaney M.D. Primary Care Provider [phone]- [phone] Encounter Details Date Type Department Care Team (Latest Contact Info) Description 04/07/2023 1:50 PM COMMUNICATIONS WRITER Ancillary Procedure Department of Gastroenterology Social History Tobacco Use Types Packs/Day Years [...] often do you attend chur ch or moravian services? Never 07/28/2022 Do you belong to any clubs o r organizations such as caodaism groups, unions, fraternal or athletic groups, or [...] Answer Date Recorded PHQ-2 Score 0 06/06/2022 [facility] - Occupational Stress Questionnaire Answer Date Recorded [...] Sex Assigned at Male 05/13/2021 10:11 AM COMMUNICATIONS WRITER Gender Identity Male 11/02/2017 7:22 PM CDT Sexual Orientation Straight 11/02/2017 7: 22 PM CDT documented as of this encounter Plan of Treatment Upcoming Encounters Date Type Department Care Team (Latest Contact Info) Description 05/28/2023 10:00 AM COMMUNICATIONS WRITER Appointment Department of Laboratory Medicine in [address] [place] [address] Mónica Portillo, TRIXIE, C.N.P., M.S. [address] [place] [phone] 05/28/2023 10:10 AM COMMUNICATIONS WRITER Appointment Department of Laboratory Medicine in [place], [place] [address] [place] [phone] Mónica Portillo APRN, C.N.P., M.S. [address] [place] [phone] 05/29/2023 8:00 AM COMMUNICATIONS WRITER Office Visit Department of Community Internal Medicine in [place], [place] [address] [place] [phone] Clover Delaney M.D. [address] [place] [phone] Discharge Disposition: Home or Self Care 05/29/2023 10:15 AM COMMUNICATIONS WRITER Appointment Department of Radiology, [facility] in [place], [place] [address] [place] [address] Mónica Portillo APRN, C.N.P., M.S. [address] [place] [phone] 05/29/2023 1:00 PM COMMUNICATIONS WRITER Procedure visit Department of Urology in [place], [place] [address] [place] [phone] Mónica Portillo APRN, C.N.P., M.S. [address] [place] [phone] 05/29/2023 3:00 PM COMMUNICATIONS WRITER Education Division of Nephrology and Hypertension in [place], [place] [address] [place] [phone] Mónica Portillo APRN, C.N.P., M.S. [address] [place] [phone] Sandeep Galicia R.N. [address] [place] [phone] 05/29/2023 4:00 PM COMMUNICATIONS WRITER Comprehensive Visit Division of Nephrology and Hypertension in [place], [place] [address] [place] [phone] Sera Casiano M.D., Ph.D. [address] [place] [phone] 06/15/2023 2:00 PM COMMUNICATIONS WRITER Ancillary Procedure Department of Ophthalmology in [place], [place] [address] [place] [phone] Justin Bunch M.D. [address] [place] [phone] 06/15/2023 2:30 PM COMMUNICATIONS WRITER Ancillary Procedure Department of Ophthalmology in [place], [place] [address] [place] [phone] Justin Bunch M.D. [address] [place] [phone] 06/15/2023 2:45 PM COMMUNICATIONS WRITER Office Visit Department of Ophthalmology in [place], [place] [address] [place] [phone] Justin Bunch M.D. [address] [place] [phone] documented as of this encounter Procedures Procedure Name Priority Date/Time Associated Diagnosis Comments GASTROENTEROLOGY IMAGE EXAM Routine 04/07/2023 1:50 PM COMMUNICATIONS WRITER documented in this encounter Results * Colonoscopy-Gastroenterology Image Exam (04/07/2023 1:50 PM COMMUNICATIONS WRITER) 04/07/2023 1:48 PM COMMUNICATIONS WRITER Narrative IIMS - 04/07/2023 2:54 PM COMMUNICATIONS WRITER This order has been created and auto-finalized to support the import of images acquired without order. The clinical documentation to support these images can be found on the encounter that produced images. Provider Not In System IMG NON RAD IMAGI NG PROCEDURES IIMS NA documented in this encounter Visit Diagnoses Not on filedocumented in this encounter Additional Health Concerns Assessment Noted Time PHQ-9 Depression Total Score: 4 06/06/19 23 2:04 PM COMMUNICATIONS WRITER documented as of this encounter Care Teams Ash Handler Relationship Specialty Start Date End Date Clover Delaney M.D. [address] [place] [phone] PCP - General Internal Medicine 11/23/17 documented as of this encounter
--- OUTSIDE RECORDS SUMMARY | 2023-05-05 11:58 | XMS_ITS | Encounter Summary ---
Author Name Unknown Organization [facility] Address [address] [place] [address] Care Team Providers Care Rock Cutter Name Role Phone Clover Delaney M.D. Primary Care Provider [phone]- [phone] Reason for Visit * Reason Comments Injection Visit Aranesp * Episode Based Medications (Routine) - Pending Review Specialty Diagnoses / Procedures Referred By Yenny t Referred To Contact Diagnoses Malignant Neoplasm Of Transverse Colon (HCC) Anemia Of Chronic Renal Disease Procedures AK DARBEPOETIN KERRI, NON-ESRD [place] DARBEPOETIN KERRI, ESRD USE Mónica Portillo APRN, C.N.P., M.S. [address] [place] [phone] [facility] Region Referral ID Status Reason Start Date Expiration Date V isits Requested Visits Authorized [id number] Pending Review 09/03/2022 09/03/2023 12 12 Encounter Details Date Type Department Care Team (Late st Contact Info) Description 03/30/2023 2:00 PM TRUST CLERK Infusion Department of Infusion Therapy in [address] [phone] Mónica Portillo APRN, C.N.P., M.S. [address] [place] [phone] Anemia Of Chronic Renal Disease (Primary Dx) Social History Tobacco Use Types [...] often do you attend chur ch or roman catholic services? Never 07/28/2022 Do you belong to any clubs o r organizations such as voodoo groups, unions, fraternal or athletic groups, or [...] Answer Date Recorded PHQ-2 Score 0 06/06/2022 [facility] - Occupational Stress [...] place to sleep or slept in a long term (including now)? No 07/28/2022 Depression Answer Date [...] Sex Assigned at Male 05/13/2021 10:11 AM TRUST CLERK Gender Identity Male 11/02/2017 7:22 PM CDT Sexual Orientation Straight 11/02/2017 7: 22 PM CDT documented as of this encounter Last Filed Vital Signs Vital Sign Reading Time Taken Comments Blood Pressure 210/90 03/30/2023 1:00 PM TRUST CLERK Pulse - - Temperature - - Respiratory Rate - - Oxygen Saturation - - Inhaled Oxygen Concentration - - Weight - - Height - - Body Mass Index - - documented in this encounter Progress Notes * Clare Eagle R.N. - 03/30/2023 2:00 PM CST Pt here for aranesp injection today. Pt stated he had his b/p taken in FP X3 and readings very high. I had pt sit for a few minutes and b/p taken manually. Reading very high. Msg sent to Mónica Portillo CNP. Orders received to proceed with Aranesp today. RX sent to pts pharmacy for amlodipine. Pt instructed to take daily and have b/p rechecked at the end of the week. Pt verbalized understanding. T CLERK documented in this encounter Plan of Treatment Upcoming Encounters Date Type Department Care Team (Latest Contact Info) Description 05/28/2023 10:00 AM TRUST CLERK Appointment Department of Laboratory Medicine in [address] [place] [address] Mónica Portillo APRN, C.N.P., M.S. [address] [place] [phone] 05/28/2023 10:10 AM TRUST CLERK Appointment Department of Laboratory Medicine in [place], [place] [address] [place] [phone] Mónica Portillo APRN, C.N.P., M.S. [address] [place] [phone] 05/29/2023 8:00 AM TRUST CLERK Office Visit Department of Community Internal Medicine in [place], [place] [address] [place] [phone] Clover Delaney M.D. [address] [place] [phone] Discharge Disposition: Home or Self Care 05/29/2023 10:15 AM TRUST CLERK Appointment Department of Radiology, [facility] in [place], [place] [address] [place] [phone] Mónica Portillo APRN, C.N.P., M.S. [address] [place] [phone] 05/29/2023 1:00 PM TRUST CLERK Procedure visit Department of Urology in [place], [place] [address] [place] [phone] Mónica Portillo APRN, C.N.P., M.S. [address] [place] [phone] 05/29/2023 3:00 PM TRUST CLERK Education Division of Nephrology and Hypertension in [place], [place] [address] [place] [phone] Mónica Portillo APRN, C.N.P., M.S. [address] [place] [phone] Sandeep Galicia R.N. [address] [place] [phone] 05/29/2023 4:00 PM TRUST CLERK Comprehensive Visit Division of Nephrology and Hypertension in [place], [place] [address] [place] [phone] Sera Casiano M.D., Ph.D. [address] [place] [phone] 06/15/2023 2:00 PM TRUST CLERK Ancillary Procedure Department of Ophthalmology in [place], [place] [address] [place] [phone] Justin Bunch M.D. [address] [place] [phone] 06/15/2023 2:30 PM TRUST CLERK Ancillary Procedure Department of Ophthalmology in [place], [place] [address] [place] [phone] Justin Bunch M.D. [address] [place] [phone] 06/15/2023 2:45 PM TRUST CLERK Office Visit Department of Ophthalmology in [place], [place] [address] [place] [phone] Justin Bunch M.D. 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 [address] [place] [phone] PCP - General Internal Medicine 11/23/17 documented as of this encounter
--- OUTSIDE RECORDS SUMMARY | 2023-05-05 11:58 | XMS_ITS | Encounter Summary ---
Author Name Unknown Organization [facility] Address [address] [place] [address] Care Team Providers Care Visual Basic Programmer Name Role Phone Clover Delaney M.D. Primary Care Provider [phone]- [phone] Reason for Referral * Outpatient (Routine) - Closed Specialty Diagnoses / Procedures Referred By Yenny hunter Referred To Contact Diagnoses Cancer Colon Transverse Personal History Procedures Colonoscopy Clover Delaney M.D. [address] [place] [address] [facility] Referral ID Status Reason Start Date Expiration Date Visits Re quested Visits Authorized [id number] Closed 03/09/2023 03/08/2024 1 1 AVED ROLLER INSPECTOR Reason for Visit * Outpatient (Routine) - Closed Specialty Diagnoses / Procedures Referred By Yenny hunter Referred To Contact Diagnoses Cancer Colon Transverse Personal History Procedures Colonoscopy Clover Delaney M.D. [address] [place] [address] [facility] Referral ID Status Reason Start Date Expiration Date Visits Re quested Visits Authorized [id number] Closed 03/09/2023 03/08/2024 1 1 Encounter Details Date Type Department Care Team (Latest Contact Info) Description 04/07/2023 1:01 PM ENGRAVED ROLLER INSPECTOR - 04/07/2023 11:59 PM ENGRAVED ROLLER INSPECTOR Hospital Encounter Division of Gastroenterology in [place], [place] [address] [place] [address] Clover Delaney M.D. [address] [place] [phone] Cancer Colon Transverse Personal History Discharge Disposition: Home or Self Care Social [...] often do you attend chur ch or shinto services? Never 07/28/2022 Do you belong to any clubs o r organizations such as sabianism groups, unions, fraternal or athletic groups, or [...] Answer Date Recorded PHQ-2 Score 0 06/06/2022 [facility] - Occupational [...] place to sleep or slept in a residential (including now)? No 07/28/2022 Depression Answer Date [...] Sex Assigned at Male 05/13/2021 10:11 AM ENGRAVED ROLLER INSPECTOR Gender Identity Male 11/02/2017 7:22 PM CDT Sexual Orientation Straight 11/02/2017 7: 22 PM CDT documented as of this encounter Last Filed Vital Signs Vital Sign Reading Time Taken Comments Blood Pressure 174/83 04/07/2023 2:34 PM ENGRAVED ROLLER INSPECTOR Pulse 56 04/07/2023 2:34 PM ENGRAVED ROLLER INSPECTOR Temperature 36.7 ??C (98.1 ??F) 04/07/2023 2:34 PM CS T Respiratory Rate 17 04/07/2023 2:34 PM ENGRAVED ROLLER INSPECTOR Oxygen Saturation 96% 04/07/2023 2:34 PM ENGRAVED ROLLER INSPECTOR Inhaled Oxygen Concentration - - Weight - - Height 177.8 cm (5' 10) 04/07/2023 1:19 PM ENGRAVED ROLLER INSPECTOR Body Mass Index - - documented in this encounter Medications at Time of Discharge [...] Take 1,000 mcg by mouth daily. 0 doxazosin (CARDURA) 2 mg tablet Take 1 tablet (2 mg total) by mouth daily. 90 tablet 3 04/07/2023 04/06/2024 glipiZIDE (GLUCOTROL XL) 10 mg 24 hr [...] daily. Do not crush or chew. 0 MULTIVITAMIN ORAL Daily Multiple Vitamins See Instructions, Take 1 tablet by mouth daily. 0 07/23/2013 multivitamin-eye (PRESERVISION LUTEIN) 226 mg-90 mg-5 mg-0.8 mg capsule Take 2 capsules by mouth daily. 0 polyethylene glycol-electrolytes (GoLYTELY) 236-22.74-6.74 -5.86 gram solutionIndications:Canc er Colon Transverse Personal History Drink 1st portion of prep at 6 PM the evening before. 2nd portion must be started 3 hours before and finished 2 hours prior to report time 4000 mL 0 03/09/2023 prednisoLONE acetate (PRED FORTE) 1 % ophthalmic suspension Instill 1 drop in left eye once daily 5 mL 0 11/06/2022 predniSONE (DELTASONE) 5 mg tablet TAKE ONE TABLET BY MOUTH ONE TIME DAILY 90 tablet 3 10/23/2022 torsemide (DEMADEX) 10 mg tablet Take 3 tablets (30 mg total) by mouth daily. 270 tablet 3 01/16/2023 01/16/2024 DME CPAPIndications:Obstruct ysabel Sleep Apnea Adult DME Order 1 each 0 08/27/2021 flash glucose scanning reader (FREESTYLE BRIONNA) miscIndications:Diabetes [...] 14 (fourteen) days. 1 each 1 06/09/2022 loperamide (IMODIUM A-D) 2 mg tablet Take 2 mg by mouth as needed. 0 miscellaneous medical supply [facility] CPAP Supplies See Instructions, CPAP machine, mask 1 ea x 4 refills, headgear 1 ea x 2 refills, tubing 1 ea x 4 refills, filters 2 ea per month, tub 1 ea x 2 refills, mask seal 1 ea x 2 refills DX G47.33, length of need 99, 1 each, 0 Refill(s) 0 10/20/2016 miscellaneous medical supply [facility] Head Gear for CPAP Machine See Instructions, fax to patient at [phone], 1 each 0 01/17/2014 ONETOUCH DELICA LANCETS 33 gauge misc 3 08/02/2018 OneTouch Ultra Test stripsIndications:Diabet es Mellitus Type 2 (HCC) Use to test once daily 100 strip 3 12/31/2021 prednisoLONE acetate (PRED FORTE) 1 % ophthalmic suspension place 1 drop into the left eye once daily. 5 mL 0 11/06/2022 prednisoLONE acetate (PRED FORTE) 1 % ophthalmic suspension place 1 drop into the left eye once daily. 5 mL 0 02/05/2023 sevelamer carbonate (RENVELA) 800 mg tablet Take 1 tablet (800 mg total) by mouth 3 (three) times a day with meals. 270 tablet 3 04/07/2023 04/06/2024 sodium bicarbonate 650 mg tablet Take 1 tablet (650 mg total) by mouth 2 (two) times a day. 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 [address] [place] [phone] 05/28/2023 10:10 AM ENGRAVED ROLLER INSPECTOR Appointment Department of Laboratory Medicine in [place] [address] [place] [address] Mónica Portillo APRN, C.N.P., M.S. [address] [place] [phone] 05/29/2023 8:00 AM ENGRAVED ROLLER INSPECTOR Office Visit Department of Community Internal Medicine in [place] [address] [place] [phone] Clover Delaney M.D. [address] [place] [phone] Discharge Disposition: Home or Self Care 05/29/2023 10:15 AM ENGRAVED ROLLER INSPECTOR Appointment Department of Radiology, [facility], in [place], [place] [address] [place] [phone] Mónica Portillo APRN, C.N.P., M.S. [address] [place] [phone] 05/29/2023 1:00 PM ENGRAVED ROLLER INSPECTOR Procedure visit Department of Urology in [place], [place] [address] [place] [phone] Mónica Portillo APRN, C.N.P., M.S. [address] [place] [phone] 05/29/2023 3:00 PM ENGRAVED ROLLER INSPECTOR Education Division of Nephrology and Hypertension in [place], [place] [address] [place] [phone] Mónica Portillo APRN, Buddy., M.S. [address] [place] [phone] Sandeep Galicia R.N. [address] [place] [phone] 05/29/2023 4:00 PM ENGRAVED ROLLER INSPECTOR Comprehensive Visit Division of Nephrology and Hypertension in [place], [place] [address] [place] [phone] Sera Casiano M.D., Ph.D. [address] [place] [phone] 06/15/2023 2:00 PM ENGRAVED ROLLER INSPECTOR Ancillary Procedure Department of Ophthalmology in [place], [place] [address] [place] [phone] Justin Bunch M.D. [address] [place] [phone] 06/15/2023 2:30 PM ENGRAVED ROLLER INSPECTOR Ancillary Procedure Department of Ophthalmology in [place], [place] [address] [place] [phone] Justin Bunch M.D. [address] [place] [phone] 06/15/2023 2:45 PM ENGRAVED ROLLER INSPECTOR Office Visit Department of Ophthalmology in [place], [place] [address] [place] [phone] Justin Bunch M.D. [address] [place] [phone] Scheduled Orders Name Type Priority Associated Diagnoses Orde r Schedule Glucose, POCT Point of Care Testing-Docked Device Routine Cancer Colon Transverse Personal History Routine lab collection (next collection) for 1 Occurrences starting 04/07/2023 until 04/07/2023 documented as of this encounter Procedures Procedure Name Priority Date/Time Associated Diagnosis Comments SURGICAL PATHOLOGY Routine 04/07/2023 2: 10 PM ENGRAVED ROLLER INSPECTOR COLONOSCOPY Routine 04/07/2023 1:48 PM ENGRAVED ROLLER INSPECTOR Cancer Colon Transverse Personal History COLONOSCOPY Routine 04/07/2023 1:48 PM ENGRAVED ROLLER INSPECTOR Cancer Colon Transverse Personal History GLUCOSE POCT, B Routine 04/07/2023 1:28 PM ENGRAVED ROLLER INSPECTOR documented in this encounter Results * Surgical Pathology (04/07/2023 2:10 PM ENGRAVED ROLLER INSPECTOR) 04/08/2023 3:39 PM ENGRAVED ROLLER INSPECTOR DTL Report electronically signed by Jayce Rogers M.D. I verify that I have examined all relevant slides/materials for the specimen(s) and rendered or confirmed the diagnosis. 04/08/2023 3:39 PM ENGRAVED ROLLER INSPECTOR DTL Gross Description Received in formalin labeled with the patient's name, medical record number, and colon-cecum, descending colon, sigmoid are eightpale ventura-pink irregular soft tissues, ranging from 0.3-1.1 cm in greatest dimension. The largest fragment is bisected and submittedentirely in cassette A1 with the remaining fragments. ??Grossed by AJB. 04/08/2023 3:39 PM ENGRAVED ROLLER INSPECTOR DTL Interpretation FINAL DIAGNOSIS A. Colon, cecum, descending, sigmoid, endoscopic biopsy: Tubular adenoma, low-grade dysplasia. 04/08/2023 3:39 PM ENGRAVED ROLLER INSPECTOR DTL Polyp (Colon) 04/07/2023 2:1 0 PM ENGRAVED ROLLER INSPECTOR Wilfred Lott M.D. LAB SURG PATH ORD ERABLES [facility] [address] [place] [address], [facility] DTL [address] [place] [address] * Colonoscopy (04/07/2023 1:48 PM ENGRAVED ROLLER INSPECTOR) 04/07/2023 1:48 PM ENGRAVED ROLLER INSPECTOR Impressions WITTER PROVATION - 04/07/2023 2:47 PM ENGRAVED ROLLER INSPECTOR Post-op Diagnoses: ? - Diverticulosis in the sigmoid colon. ? - Patent end-to-end colo-colonic anastomosis, characterized by healthy ? appearing mucosa. ? - Three 3 to 4 mm polyps in the sigmoid colon, in the descending colon ? and in the cecum, removed with a cold snare. Resected and retrieved. ? - The examination was otherwise normal on direct and retroflexion views. Narrative WITTER PROVATION - 04/07/2023 2:47 PM ENGRAVED ROLLER INSPECTOR Gonda 9 GI GI Patient Name: Philip Patel Date of : 1945 Age: 77 Procedure Date: 04/07/2023 Procedure: ? Colonoscopy Providers: ? Wilfred Lott MD, PANCHITO Alvarez ? (Fellow) Referring Provider: ?Clover EmmaJosé Luis Delaney Pre-op Diagnoses: ?High risk colon cancer surveillance: Personal ? history of colon cancer Recommendation: ? - Follow up recommendations for patients with polyps identified during ? colonoscopy are impacted by several factors including polyp ? characteristics (size, number and histology), adequacy of colonic ? preparation and pertinent family history. For [facility] providers, ? detailed recommendations are available as an [email or web address] Care Process ? Model: <[email or web address] ? There may be some circumstances, [...] preparation was ? evaluated using the BBPS ([place] Bowel Preparation Scale) with scores ? of: [...] 0 Clover Delaney M.D. GI PROCEDURE ORDERA BLES MATT BEGUM NA * Glucose, POCT (04/07/2023 1:28 PM ENGRAVED ROLLER INSPECTOR) Glucose, POCT, B 134 70 - 140 mg/dL 04/07/2023 1:31 PM ENGRAVED ROLLER INSPECTOR PCMO Site Capillary 04/07/2023 1:31 PM ENGRAVED ROLLER INSPECTOR PCMO Blood 04/07/2023 1:28 PM ENGRAVED ROLLER INSPECTOR 04/07/2023 1:31 PM ENGRAVED ROLLER INSPECTOR Unknown Provider LAB POCT ORDERABLES- MANUAL Performing Organization Address City/[facility]/ZIP Co de Phone Number POC [facility] [address] [place] [address], [facility] [address] [facility] [place] [address] documented in this encounter Visit Diagnoses Diagnosis Cancer Colon Transverse Personal History documented in this encounter Administered Medications Inactive Administered Medications - up to 3 most recent administrations Medication Order MAR Action Action Date Dose Rate Site simethicone drops (MYLICON) As needed, Starting on Thu04/07/23 at 1408, Intra-Op Given 04/07/2023 2:08 PM ENGRAVED ROLLER INSPECTOR 1 mg Colon documented in this encounter Additional Health Concerns Assessment Noted Time PHQ-9 Depression Total Score: 4 06/06/19 23 2:04 PM ENGRAVED ROLLER INSPECTOR documented as of this encounter Care Teams Visual Basic Programmer Relationship Specialty Start Date End Date Clover Delaney M.D. [address] [place] [phone] PCP - General Internal Medicine 11/23/17 documented as of this encounter
--- OUTSIDE RECORDS SUMMARY | 2023-05-05 11:58 | XMS_ITS | Encounter Summary ---
Author Name Unknown Organization [facility] Address [address] [place] [address] Care Team Providers Care Plate Take Out Worker Name Role Phone Clover Delaney M.D. Primary Care Provider [phone] Reason for Referral * Specialty Diagnoses / Procedures Referred By Yenny hunter Referred To Contact [facility] [address] [place] [address] [facility] Referral ID Status Reason Start Date Expiration Date Visits Re quested Visits Authorized Scheduling Instructions Please coordinate with next in person CKD appointment TIONAL SERVICES SPECIALIST Encounter Details Date Type Department Care Team ([facility] st Contact Info) Description 04/01/2023 Orders Only Division of Nephrology and Hypertension, [facility], in [place], [place] [address] [place] [phone] Frances Farah R.N. [address] [place] [phone] Chronic Kidney Disease (CKD), Stage 3b Glomerular Filtration Rate (GFR) 30 To 44 (HCC) (Primary Dx); Chronic Kidney Disease Stage 4 Glomerular Filtration Rate 15-29 (HCC) Social History Tobacco Use Types Packs/Day Years [...] often do you attend chur ch or christianity services? Never 07/28/2022 Do you belong to any clubs o r organizations such as oriental orthodox groups, unions, fraternal or athletic groups, or [...] Answer Date Recorded PHQ-2 Score 0 06/06/2022 [facility] - Occupational Stress Questionnaire Answer Date [...] place to sleep or slept in a assisted (including now)? No 07/28/2022 Depression Answer Date [...] Answer Date Recorded Dental: Regular Dentist Yes 02/24/20 21 Employment Answer Date Recorded Employment status Employed and actively working without restrictions 07/28/2022 Education Answer Date Recorded What is the highest level of school you have completed or the highest degree you have received? Professional school degree (e.g., , MAREK, DVM, NACHO) 10/10/2020 Sex and Gender Information Value Date Recorded Sex Assigned at Male 05/13/2021 10:11 AM VOCATIONAL SERVICES SPECIALIST Gender Identity Male 11/02/2017 7:22 PM CDT Sexual Orientation Straight 11/02/2017 7: 22 PM CDT documented as of this encounter Plan of Treatment Upcoming Encounters Date Type Department Care Team (Latest Contact Info) Description 05/28/2023 10:00 AM VOCATIONAL SERVICES SPECIALIST Appointment Department of Laboratory Medicine in [place], [place] [address] [place] [address] Mónica Portillo APRN, C.N.P., M.S. [address] [place] [phone] 05/28/2023 10:10 AM VOCATIONAL SERVICES SPECIALIST Appointment Department of Laboratory Medicine in [place], [place] [address] [place] [address] Mónica Portillo APRN, C.N.P., M.S. [address] [place] [phone] 05/29/2023 8:00 AM VOCATIONAL SERVICES SPECIALIST Office Visit Department of Community Internal Medicine in [place], [place] [address] [place] [address] Clover Delaney M.D. [address] [place] [phone] Discharge Disposition: Home or Self Care 05/29/2023 10:15 AM VOCATIONAL SERVICES SPECIALIST Appointment Department of Radiology, [facility] in [place], [place] [address] [place] [address] Mónica Portillo APRN, C.N.P., M.S. [address] [place] [phone] 05/29/2023 1:00 PM VOCATIONAL SERVICES SPECIALIST Procedure visit Department of Urology in [place], [place] [address] [place] [phone] Mónica Portillo APRN, C.N.P., M.S. [address] [place] [phone] 05/29/2023 3:00 PM VOCATIONAL SERVICES SPECIALIST Education Division of Nephrology and Hypertension in [place], [place] [address] [place] [phone] Mónica Portillo APRN, C.N.P., M.S. [address] [place] [phone] Sandeep Galicia R.N. [address] [place] [phone] 05/29/2023 4:00 PM VOCATIONAL SERVICES SPECIALIST Comprehensive Visit Division of Nephrology and Hypertension in [place], [place] [address] [place] [phone] Sera Casiano M.D., Ph.D. [address] [place] [phone] 06/15/2023 2:00 PM VOCATIONAL SERVICES SPECIALIST Ancillary Procedure Department of Ophthalmology in [address] [phone] Justin Bunch M.D. [address] [place] [phone] 06/15/2023 2:30 PM VOCATIONAL SERVICES SPECIALIST Ancillary Procedure Department of Ophthalmology in [address] [phone] Justin Bunch M.D. [address] [place] [phone] 06/15/2023 2:45 PM VOCATIONAL SERVICES SPECIALIST Office Visit Department of Ophthalmology in [place], [place] [address] [place] [address] Justin Bunch M.D. [address] [place] [address] Scheduled Referrals Name Type Priority Associated Diagnoses Order Schedule Nephrology - Chronic kidney disease education visit (clinic) Outpatient Referral Routine Chronic Kidney Disease Stage 4 Glomerular Filtration Rate 15-29 (HCC) Expected: 04/01/2023 (Approximate), Expires: 06/30/2024 documented as of this encounter Visit Diagnoses Diagnosis Chronic Kidney Disease (CKD), Stage 3b Glomerular Filtration Rate (GFR) 30 To 44 (HCC)- Primary Chronic Kidney Disease Stage 4 Glomerular Filtration Rate 15-29 (HCC) documented in this encounter Additional Health Concerns Assessment Noted Time PHQ-9 Depression Total Score: 4 06/06/19 23 2:04 PM VOCATIONAL SERVICES SPECIALIST documented as of this encounter Care Teams Plate Take Out Worker Relationship Specialty Start Date End Date Clover Delaney M.D. [address] [place] [phone] PCP - General Internal Medicine 11/23/17 documented as of this encounter
--- OUTSIDE RECORDS SUMMARY | 2023-05-05 11:58 | XMS_ITS | Encounter Summary ---
Author Name Unknown Organization [facility] Address [address] [place] [id number] Care Team Providers Care Pharmaceutical Assistant Name Role Phone Clover Delaney M.D. Primary Care Provider +1- [phone] Reason for Visit * Reason Comments Nurse Visit BP check Encounter Details Date Type Department Care Team (Late st Contact Info) Description 04/06/2023 10:30 AM OYSTER WASHER Diagnostic Department of Family Medicine, [facility], in [address] [place] [phone] Mónica Portillo APRN, C.N.P., M.S. [address] [place] [phone] Hypertension And Chronic Kidney Disease Stage 5 [...] often do you attend chur ch or latter-day services? Never 07/28/2022 Do you belong to any clubs o r organizations such as hinduism groups, unions, fraternal or athletic groups, or [...] Answer Date Recorded PHQ-2 Score 0 06/06/2022 [facility] of Occupat ional Health - Occupational Stress [...] place to sleep or slept in a intermediate (including now)? No 07/28/2022 Depression Answer Date [...] have received? Professional school degree (e.g., , DDS, DVM, NACHO) 10/10/2020 Sex and Gender Information Value Date Recorded Sex Assigned at Male 05/13/2021 10:11 AM OYSTER WASHER Gender Identity Male 11/02/2017 7:22 PM CDT Sexual Orientation Straight 11/02/2017 7: 22 PM CDT documented as of this encounter Last Filed Vital Signs Vital Sign Reading Time Taken Comments Blood Pressure 162/74 04/06/2023 10:25 AM OYSTER WASHER Pulse - - Temperature - - Respiratory Rate - - Oxygen Saturation - - Inhaled Oxygen Concentration - - Weight - - Height - - Body Mass Index - - documented in this encounter Progress Notes * Renata Jiang, L.P.N. - 04/06/2023 10:30 AM CST Riccardo is seen today for a blood pressure visit as ordered by Mónica Portillo. Visit was conducted inclinic. Today's blood pressure reading and prior two readings: BP Readings from Last 3 Encounters: 04/06/23 (!) 162/74 03/30/23 (!) 210/90 03/30/23 (!) 213/82 . Medication list was reconciled, and patient is taking their blood pressure medication as prescribed. The patient reports no acute symptoms of hypertension Based on today's readings: The provider will be notified of today's visit and the patient was dismissed ER WASHER documented in this encounter Plan of Treatment Upcoming Encounters Date Type Department Care Team (Latest Contact Info) Description 05/28/2023 10:00 AM OYSTER WASHER Appointment Department of Laboratory Medicine in [place], [place] [address] [place] [place] [address] Mónica Portillo APRN, C.N.P., M.S. [address] [place] [phone] 05/28/2023 10:10 AM OYSTER WASHER Appointment Department of Laboratory Medicine in [place], [place] [address] [place] [address] Mónica Portillo APRN, C.N.P., M.S. [address] [place] [phone] 05/29/2023 8:00 AM OYSTER WASHER Office Visit Department of Community Internal Medicine in [place] [address] [place] [address] Clover Delaney M.D. [address] [place] [address] Discharge Disposition: Home or Self Care 05/29/2023 10:15 AM OYSTER WASHER Appointment Department of Radiology, [facility] in [place], [place] [address] [place] [address] Mónica Portillo APRN, C.N.P., M.S. [address] [place] [phone] 05/29/2023 1:00 PM OYSTER WASHER Procedure visit Department of Urology in [place], [place] [address] [place] [address] Mónica Portillo APRN, C.N.P., M.S. [address] [place] [phone] 05/29/2023 3:00 PM OYSTER WASHER Education Division of Nephrology and Hypertension in [place], [place] [address] [place] [address] Mónica Portillo APRN, C.N.P., M.S. [address] [place] [phone] Sandeep Galicia R.N. [address] [place] [phone] 05/29/2023 4:00 PM OYSTER WASHER Comprehensive Visit Division of Nephrology and Hypertension in [place], [place] [address] [place] [phone] Sera Casiano M.D., Ph.D. [address] [place] [phone] 06/15/2023 2:00 PM OYSTER WASHER Ancillary Procedure Department of Ophthalmology in [place], [place] [address] [place] [phone] Justin Bunch M.D. [address] [place] [phone] 06/15/2023 2:30 PM OYSTER WASHER Ancillary Procedure Department of Ophthalmology in [place], [place] [address] [place] [phone] Justin Bunch M.D. [address] [place] [phone] 06/15/2023 2:45 PM OYSTER WASHER Office Visit Department of Ophthalmology in [place], [place] [address] [place] [phone] Justin Bunch M.D. [address] [place] [phone] documented as of this encounter Visit Diagnoses Diagnosis Hypertension And Chronic Kidney Disease Stage 5 (HCC) documented in this encounter Additional Health Concerns Assessment Noted Time PHQ-9 Depression Total Score: 4 06/06/19 23 2:04 PM OYSTER WASHER documented as of this encounter Care Teams Pharmaceutical Assistant Relationship Specialty Start Date End Date Clover Delaney M.D. [address] [place] [phone] PCP - General Internal Medicine 11/23/17 documented as of this encounter
--- OUTSIDE RECORDS SUMMARY | 2023-05-05 11:58 | XMS_ITS | Encounter Summary ---
Author Name Unknown Organization [facility] Address [address] [place] [address] Care Team Providers Care Special Tax Auditor Name Role Phone Clover Delaney M.D. Primary Care Provider +1- [phone] Encounter Details Date Type Department Care Team (Late st Contact Info) Description 04/13/2023 Orders Only Department of Community Internal Medicine in [place], [place] [address] [place] [address] [place] [phone] Clover Delaney M.D. [address] [place] [address] Social History Tobacco Use Types [...] often do you attend chur ch or voodoo services? Never 07/28/2022 Do you belong to any clubs o r organizations such as zoroastrian groups, unions, fraternal or athletic groups, or [...] Answer Date Recorded PHQ-2 Score 0 06/06/2022 [facility] of Occupat ional Health - Occupational [...] Sex Assigned at Male 05/13/2021 10:11 AM SEED TESTER Gender Identity Male 11/02/2017 7:22 PM CDT Sexual Orientation Straight 11/02/2017 7: 22 PM CDT documented as of this encounter Plan of Treatment Upcoming Encounters Date Type Department Care Team (Latest Contact Info) Description 05/28/2023 10:00 AM SEED TESTER Appointment Department of Laboratory Medicine in [place] [address] [place] [address] Mónica Portillo APRN, C.N.P., M.S. [address] [place] [phone] 05/28/2023 10:10 AM SEED TESTER Appointment Department of Laboratory Medicine in [place] [address] [place] [address] Mónica Portillo APRN, Kassandra.N.P., M.S. [address] [place] [phone] 05/29/2023 8:00 AM SEED TESTER Office Visit Department of Community Internal Medicine in [place] [address] [place] [address] Clover Delaney M.D. [address] [place] [phone] Discharge Disposition: Home or Self Care 05/29/2023 10:15 AM SEED TESTER Appointment Department of Radiology, [facility], in [place], [place] [address] [place] [phone] Mónica Portillo APRN, C.N.P., M.S. [address] [place] [phone] 05/29/2023 1:00 PM SEED TESTER Procedure visit Department of Urology in [place], [place] [address] [place] [phone] Mónica Portillo APRN, Kassandra.N.P., M.S. [address] [place] [phone] 05/29/2023 3:00 PM SEED TESTER Education Division of Nephrology and Hypertension in [place], [place] [address] [place] [phone] Mónica Portillo APRN, DrewNJosé LuisP., M.S. [address] [place] [phone] Sandeep Galicia R.N. [address] [place] [phone] 05/29/2023 4:00 PM SEED TESTER Comprehensive Visit Division of Nephrology and Hypertension in [place], [place] [address] [place] [phone] Sera Casiano M.D., Ph.D. [address] [place] [phone] 06/15/2023 2:00 PM SEED TESTER Ancillary Procedure Department of Ophthalmology in [place], [place] [address] [place] [phone] Justin Bunch M.D. [address] [place] [phone] 06/15/2023 2:30 PM SEED TESTER Ancillary Procedure Department of Ophthalmology in [address] [phone] Justin Bunch M.D. [address] [place] [phone] 06/15/2023 2:45 PM SEED TESTER Office Visit Department of Ophthalmology in [address] [phone] Justin Bunch M.D. [address] [place] [phone] documented as of this encounter Visit Diagnoses Not on filedocumented in this encounter Additional Health Concerns Assessment Noted Time PHQ-9 Depression Total Score: 4 06/06/19 23 2:04 PM SEED TESTER documented as of this encounter Care Teams Special Tax Auditor Relationship Specialty Start Date End Date Clover Delaney M.D. [address] [place] [address] PCP - General Internal Medicine 11/23/17 documented as of this encounter
--- OUTSIDE RECORDS SUMMARY | 2023-05-05 11:58 | XMS_ITS | Encounter Summary ---
Author Name Unknown Organization [facility] Address [address] [place] [address] Care Team Providers Care International Recruiter Name Role Phone Clover Delaney M.D. Primary Care Provider +1- [phone] Reason for Visit * Reason Onset Date Comments Follow-up Orders 03/30/2023 Patient returni ng call to [employer] to [employer]? I do not see any message. Encounter Details Date Type Department Care Team (Latest Contact Info) Description 03/30/2023 Clinical Communication Department of Community Internal Medicine in [address] [place] [phone] Clover Delaney M.D. [address] [place] [phone] Follow-up Orders (Patient returning call to [employer] to [employer]? I do not see any message./ ) Social History Tobacco Use Types Packs/Day Years [...] often do you attend chur ch or baptism services? Never 07/28/2022 Do you belong to any clubs o r organizations such as uatsdin groups, unions, fraternal or athletic groups, or [...] Answer Date Recorded PHQ-2 Score 0 06/06/2022 [facility] of Occupat ional Health - Occupational [...] Sex Assigned at Male 05/13/2021 10:11 AM EDUCATION PARAPROFESSIONAL Gender Identity Male 11/02/2017 7:22 PM CDT Sexual Orientation Straight 11/02/2017 7: 22 PM CDT documented as of this encounter Plan of Treatment Upcoming Encounters Date Type Department Care Team (Latest Contact Info) Description 05/28/2023 10:00 AM EDUCATION PARAPROFESSIONAL Appointment Department of Laboratory Medicine in [place] [address] [place] [address] Mónica Portillo APRN, C.N.P., M.S. [address] [place] [phone] 05/28/2023 10:10 AM EDUCATION PARAPROFESSIONAL Appointment Department of Laboratory Medicine in [place] [address] [place] [address] Mónica Portillo APRN, C.N.P., M.S. [address] [place] [phone] 05/29/2023 8:00 AM EDUCATION PARAPROFESSIONAL Office Visit Department of Community Internal Medicine in [place] [address] [place] [address] Clover Delaney M.D. [address] [place] [phone] Discharge Disposition: Home or Self Care 05/29/2023 10:15 AM EDUCATION PARAPROFESSIONAL Appointment Department of Radiology, [facility], in [place], [place] [address] [place] [phone] Mónica Portillo APRN, C.N.P., M.S. [address] [place] [phone] 05/29/2023 1:00 PM EDUCATION PARAPROFESSIONAL Procedure visit Department of Urology in [place], [place] [address] [place] [phone] Mónica Portillo APRN, Kassandra.N.P., M.S. [address] [place] [phone] 05/29/2023 3:00 PM EDUCATION PARAPROFESSIONAL Education Division of Nephrology and Hypertension in [place], [place] [address] [place] [phone] Mónica Portillo APRN, C.N.P., M.S. [address] [place] [phone] Sandeep Galicia R.N. [address] [place] [phone] 05/29/2023 4:00 PM EDUCATION PARAPROFESSIONAL Comprehensive Visit Division of Nephrology and Hypertension in [place], [place] [address] [place] [phone] Sera Casiano M.D., Ph.D. [address] [place] [phone] 06/15/2023 2:00 PM EDUCATION PARAPROFESSIONAL Ancillary Procedure Department of Ophthalmology in [place], [place] [address] [place] [phone] Justin Bunch M.D. [address] [place] [phone] 06/15/2023 2:30 PM EDUCATION PARAPROFESSIONAL Ancillary Procedure Department of Ophthalmology in [place], [place] [address] [place] [phone] Justin Bunch M.D. [address] [place] [phone] 06/15/2023 2:45 PM EDUCATION PARAPROFESSIONAL Office Visit Department of Ophthalmology in [place], [place] [address] [place] [phone] Justin Bunch M.D. [address] [place] [phone] documented as of this encounter Visit Diagnoses Not on filedocumented in this encounter Additional Health Concerns Assessment Noted Time PHQ-9 Depression Total Score: 4 06/06/19 23 2:04 PM EDUCATION PARAPROFESSIONAL documented as of this encounter Care Teams International Recruiter Relationship Specialty Start Date End Date Clover Delaney M.D. [address] [place] [phone] PCP - General Internal Medicine 11/23/17 documented as of this encounter
--- OUTSIDE RECORDS SUMMARY | 2023-05-05 11:58 | XMS_ITS | Encounter Summary ---
Author Name Unknown Organization [facility] Address [address] [place] [address] Care Team Providers Care Lumber Stacker Operator Name Role Phone Clover Delaney M.D. Primary Care Provider +1- [phone] Reason for Referral * Outpatient (Routine) - Authorized Specialty Diagnoses / Procedures Referred By Contac t Referred To Contact Social Work Diagnoses Chronic Kidney Disease Stage 5 Glomerular Filtration Rate Less Than 15 (HCC) Rst Nep Ellen [address] [place] [address] [facility] Referral ID Status Reason Start Date Expiration Date V isits Requested Visits Authorized [id number] Authorized 04/15/2023 04/14/2024 1 1 ITAL WARD CLERK Encounter Details Date Type Department Care Team (Late st Contact Info) Description 04/15/2023 Orders Only Division of Nephrology and Hypertension in [place], [place] [address] [place] [phone] Yris Hughes L.G.SWilda, M.S.W. Chronic Kidney Disease Stage 5 Glomerular Filtration Rate Less Than 15 (HCC) (Primary Dx) Social History Tobacco Use [...] often do you attend chur ch or yarsani services? Never 07/28/2022 Do you belong to any clubs o r organizations such as jainism groups, unions, fraternal or athletic groups, or [...] Answer Date Recorded PHQ-2 Score 0 06/06/2022 [facility] of Occupat ional Health - Occupational Stress [...] money to buy more. Never true 07/29/19 Within the past 12 months, t he [...] Sex Assigned at Male 05/13/2021 10:11 AM HOSPITAL WARD CLERK Gender Identity Male 11/02/2017 7:22 PM CDT Sexual Orientation Straight 11/02/2017 7: 22 PM CDT documented as of this encounter Plan of Treatment Upcoming Encounters Date Type Department Care Team (Latest Contact Info) Description 05/28/2023 10:00 AM HOSPITAL WARD CLERK Appointment Department of Laboratory Medicine in [place] [address] [place] [phone] Mónica Portillo APRN, C.N.P., M.S. [address] [place] [phone] 05/28/2023 10:10 AM HOSPITAL WARD CLERK Appointment Department of Laboratory Medicine in [place] [address] [place] [phone] Mónica Portillo APRN, C.N.P., M.S. [address] [place] [phone] 05/29/2023 8:00 AM HOSPITAL WARD CLERK Office Visit Department of Community Internal Medicine in [place] [address] [place] [phone] Clover Delaney M.D. [address] [place] [phone] Discharge Disposition: Home or Self Care 05/29/2023 10:15 AM HOSPITAL WARD CLERK Appointment Department of Radiology, [facility] in [place], [place] [address] [place] [phone] Mónica Portillo APRN, C.NTaylor., M.S. [address] [place] [phone] 05/29/2023 1:00 PM HOSPITAL WARD CLERK Procedure visit Department of Urology in [place], [place] [address] [place] [address] Mónica Portillo APRN, C.NTaylor., M.S. [address] [place] [phone] 05/29/2023 3:00 PM HOSPITAL WARD CLERK Education Division of Nephrology and Hypertension in [place], [place] [address] [place] [phone] Mónica Portillo APRN, C.NTaylor., M.S. [address] [place] [phone] Sandeep Galicia R.N. [address] [place] [phone] 05/29/2023 4:00 PM HOSPITAL WARD CLERK Comprehensive Visit Division of Nephrology and Hypertension in [place], [place] [address] [place] [phone] Sera Casiano M.D., Ph.D. [address] [place] [phone] 06/15/2023 2:00 PM HOSPITAL WARD CLERK Ancillary Procedure Department of Ophthalmology in [place], [place] [address] [place] [phone] Justin Bunch M.D. [address] [place] [phone] 06/15/2023 2:30 PM HOSPITAL WARD CLERK Ancillary Procedure Department of Ophthalmology in [place], [place] [address] [place] [address] Justin Bunch M.D. [address] [place] [phone] 06/15/2023 2:45 PM HOSPITAL WARD CLERK Office Visit Department of Ophthalmology in [place], [place] [address] [place] [address] Justin Bunch M.D. [address] [place] [address] Scheduled Referrals Name Type Priority Associated Diagnoses Orde r Schedule Social Work - General consult (clinic) Outpatient Referral Routine Chronic Kidney Disease Stage 5 Glomerular Filtration Rate Less Than 15 (HCC) Expected: 05/06/2023 (Approximate), Expires: 07/14/2024 documented as of this encounter Visit Diagnoses Diagnosis Chronic Kidney Disease Stage 5 Glomerular Filtration Rate Less Than 15 (HCC)- Primary documented in this encounter Additional Health Concerns Assessment Noted Time PHQ-9 Depression Total Score: 4 06/06/19 23 2:04 PM HOSPITAL WARD CLERK documented as of this encounter Care Teams Lumber Stacker Operator Relationship Specialty Start Date End Date Clover Delaney M.D. [address] [place] [phone] PCP - General Internal Medicine 11/23/17 documented as of this encounter
--- OUTSIDE RECORDS SUMMARY | 2023-05-05 11:59 | XMS_ITS | Encounter Summary ---
Author Name Unknown Organization [facility] Address [address] [place] [address] Care Team Providers Care Cross Tie Cutter Name Role Phone Clover Delaney M.D. Primary Care Provider +[phone]- [phone] Reason for Visit * Reason Onset Date Comments Earache 03/27/2023 Encounter Details Date Type Department Care Team (Late st Contact Info) Description 03/27/2023 Nurse Triage Department of Community Internal Medicine in [address] [place] [address] Tahira Melton, RJosé LuisNJosé Luis [address] [place] [phone] Earache Social History Tobacco Use Types Packs/Day Years [...] often do you attend chur ch or synagogue services? Never 07/28/2022 Do you belong to [...] Answer Date Recorded PHQ-2 Score 0 06/06/2022 [facility] of Occupat ional Health - [...] place to sleep or slept in a [place] health care facility (including now)? No 07/28/2022 Depression Answer Date [...] Sex Assigned at Male 05/13/2021 10:11 AM CLINICAL PHLEBOTOMIST Gender Identity Male 11/02/2017 7:22 PM CDT Sexual Orientation Straight 11/02/2017 7: 22 PM CDT documented as of this encounter Miscellaneous Notes * Telephone Encounter - Tahira Melton R.N. - 03/27/2023 9:34 AM CLINICAL PHLEBOTOMIST Chief Complaint / Reason for Call Patient is a 77 y.o. male calling regarding Earache. Assessment Concern: Stabbing sharp pain on Right side of face and ear (mainly in the ear). No redness or swelling. No warmth. No hearing changes. No drainage from the ear. 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 Pain rating an 8. Present for: Episode has been present for 2 days. Home cares tried: Acetaminophen and heating pad. Calling to request: An appointment The recommended disposition is See a health care provider within 4 hours. Care Advice Patient/Caregiver understands and will follow care advice?: Yes, able to teach back SEE HCP WITHIN 4 HOURS: PAIN MEDICINES: * For pain relief, you can take either acetaminophen, ibuprofen, or naproxen. * They are sjes-smd-lageepl (OTC) pain drugs. You can buy them at the drugstore. * ACETAMINOPHEN - REGULAR STRENGTH TYLENOL: Take 650 mg (two 325 mg pills) by mouth every 4 to 6 hours as needed. Each Regular Strength Tylenol pill has 325 mg of acetaminophen. The most you should take is 10 pills a day (3,250 mg total). Note: In [place], the maximum is 12 pills a day (3,900 mg total). * ACETAMINOPHEN - EXTRA STRENGTH TYLENOL: Take 1,000 mg (two 500 mg pills) every 6 to 8 hours as needed. Each Extra Strength Tylenol pill has 500 mg of acetaminophen. The most you should take is 6 pills a day (3,000 mg total). Note: In [place], the maximum is 8 pills a day (4,000 mg total). * IBUPROFEN (E.G., MOTRIN, ADVIL): Take 400 mg (two 200 mg pills) by mouth every 6 hours. The most you should take is 6 pills a day (1,200 mg total). * NAPROXEN (E.G., ALEVE): Take 220 mg (one 220 mg pill) by mouth every 8 to 12 hours as needed. Youmay take 440 mg (two 220 mg pills) for your first dose. The most you should take is 3 pills a day (660 mg total). Note: In [place], the maximum is 2 pills a day (one every 12 hours; 440 mg total). * Use the lowest amount of medicine that makes your pain better. PAIN MEDICINES - EXTRA NOTES AND WARNINGS: * Follow these dosing instructions unless your doctor (or AUTOMOTIVE PROJECT ENGINEER/PA) has told you to take a different dose. * Acetaminophen is thought to be safer than ibuprofen or naproxen in people over 65 years old. Acetaminophen is in many OTC and prescription medicines. It might be in more than one medicine that you are taking. You need to be careful and not take an overdose. An acetaminophen overdose can hurt the liver. * [facility], the company that makes Tylenol, has different maximum dosage instructions for Tylenol in [place] than in the [place]. [place], the company that makes Aleve, has different dosage maximum instructions for Aleve in [place] and the [place]. * CAUTION: Do not take acetaminophen if you have liver disease. * CAUTION: Do not take ibuprofen or naproxen if you have stomach problems, kidney disease, are , or have been told by your doctor to avoid this type of anti-inflammatory drug. Do not take ibuprofen or naproxen for more than 7 days without consulting your doctor. If you take blood thinners, ibuprofen and naproxen can increase the risk of bleeding. * Before taking any medicine, read all the instructions on the package. CALL BACK IF: * You become worse Patient was warm transferred toMehnaz, Patient Appointment Desktop Support Specialist at the clinic for further assistance. and Endpoint: 4. Reason for Visit: Right face and ear pain . Video Visit: not discussed Reason for Disposition [1] SEVERE pain AND [2] not improved 2 hours after taking analgesic medication (e.g., ibuprofen or acetaminophen) Protocols used: [id number] ICAL PHLEBOTOMIST documented in this encounter Plan of Treatment Upcoming Encounters Date Type Department Care Team (Latest Contact Info) Description 05/28/2023 10:00 AM CLINICAL PHLEBOTOMIST Appointment Department of Laboratory Medicine in [place] [address] [place] [address] Mónica Portillo APRN, C.N.P., M.S. [address] [place] [address] 05/28/2023 10:10 AM CLINICAL PHLEBOTOMIST Appointment Department of Laboratory Medicine in [place], [place] [address] [place] [phone] Mónica Portillo APRN, C.N.P., M.S. [address] [place] [address] 05/29/2023 8:00 AM CLINICAL PHLEBOTOMIST Office Visit Department of Community Internal Medicine in [place], [place] [address] [place] [phone] Clover Delaney M.D. [address] [place] [phone] Discharge Disposition: Home or Self Care 05/29/2023 10:15 AM CLINICAL PHLEBOTOMIST Appointment Department of Radiology, [facility] in [place], [place] [address] [place] [phone] Mónica Portillo APRN, C.N.P., M.S. [address] [place] [phone] 05/29/2023 1:00 PM CLINICAL PHLEBOTOMIST Procedure visit Department of Urology in [place], [place] [address] [place] [phone] Mónica Portillo APRN, C.N.P., M.S. [address] [place] [phone] 05/29/2023 3:00 PM CLINICAL PHLEBOTOMIST Education Division of Nephrology and Hypertension in [place], [place] [address] [place] [phone] Mónica Portillo APRN, C.N.P., M.S. [address] [place] [phone] Sandeep Galicia R.N. [address] [place] [phone] 05/29/2023 4:00 PM CLINICAL PHLEBOTOMIST Comprehensive Visit Division of Nephrology and Hypertension in [place], [place] [address] [place] [phone] Sera Casiano M.D., Ph.D. [address] [place] [phone] 06/15/2023 2:00 PM CLINICAL PHLEBOTOMIST Ancillary Procedure Department of Ophthalmology in [place], [place] [address] [place] [phone] Justin Bunch M.D. [address] [place] [phone] 06/15/2023 2:30 PM CLINICAL PHLEBOTOMIST Ancillary Procedure Department of Ophthalmology in [place], [place] [address] [place] [phone] Justin Bunch M.D. [address] [place] [phone] 06/15/2023 2:45 PM CLINICAL PHLEBOTOMIST Office Visit Department of Ophthalmology in [place], [place] [address] [place] [phone] Justin Bunch M.D. [address] [place] [phone] documented as of this encounter Visit Diagnoses Not on filedocumented in this encounter Additional Health Concerns Assessment Noted Time PHQ-9 Depression Total Score: 4 06/06/19 23 2:04 PM CLINICAL PHLEBOTOMIST documented as of this encounter Care Teams Cross Tie Cutter Relationship Specialty Start Date End Date Clover Delaney M.D. [address] [place] [phone] PCP - General Internal Medicine 11/23/17 documented as of this encounter
--- OUTSIDE RECORDS SUMMARY | 2023-05-05 11:59 | XMS_ITS | Encounter Summary ---
Author Name Unknown Organization [facility] Address [address] [place] [address] Care Team Providers Care Distribution Center Supervisor Name Role Phone Clover Delaney M.D. Primary Care Provider [phone]- [phone] Reason for Referral * Outpatient (Routine) - Authorized Specialty Diagnoses / Procedures Referred By Yenny t Referred To Contact Ophthalmology Justin Bunch M.D. 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 Never 07/28/2022 Do you belong to [...] Date Recorded PHQ-2 Score 0 06/06/2022 [facility] of Occupat ional Health - Occupational Stress [...] place to sleep or slept in a skilled nursing (including now)? No 07/28/2022 Depression Answer Date [...] Sex Assigned at Male 05/13/2021 10:11 AM COLLAR SEPARATOR Gender Identity Male 11/02/2017 7:22 PM CDT Sexual Orientation Straight 11/02/2017 7: 22 PM CDT documented as of this encounter Plan of Treatment Upcoming Encounters Date Type Department Care Team (Latest Contact Info) Description 05/28/2023 10:00 AM COLLAR SEPARATOR Appointment Department of Laboratory Medicine in [place] [address] [place] [address] Mónica Portillo APRN, C.N.P., M.S. [address] [place] [phone] 05/28/2023 10:10 AM COLLAR SEPARATOR Appointment Department of Laboratory Medicine in [place] [address] [place] [address] Mónica Portillo APRN, C.N.P., M.S. [address] [place] [phone] 05/29/2023 8:00 AM COLLAR SEPARATOR Office Visit Department of Community Internal Medicine in [place] [address] [place] [address] Clover Delaney M.D. [address] [place] [phone] Discharge Disposition: Home or Self Care 05/29/2023 10:15 AM COLLAR SEPARATOR Appointment Department of Radiology, [facility] in [place], [place] [address] [place] [phone] Mónica Portillo APRN, C.N.P., M.S. [address] [place] [phone] 05/29/2023 1:00 PM COLLAR SEPARATOR Procedure visit Department of Urology in [place], [place] [address] [place] [phone] Mónica Portillo APRN, C.N.P., M.S. [address] [place] [phone] 05/29/2023 3:00 PM COLLAR SEPARATOR Education Division of Nephrology and Hypertension in [place], [place] [address] [place] [phone] Mónica Portillo APRN, C.N.P., M.S. [address] [place] [phone] Sandeep Galicia R.Garima [address] [place] [phone] 05/29/2023 4:00 PM COLLAR SEPARATOR Comprehensive Visit Division of Nephrology and Hypertension in [place], [place] [address] [place] [phone] Sera Casiano M.D., Ph.D. [address] [place] [phone] 06/15/2023 2:00 PM COLLAR SEPARATOR Ancillary Procedure Department of Ophthalmology in [place], [place] [address] [place] [phone] Justin Bunch M.D. [address] [place] [phone] 06/15/2023 2:30 PM COLLAR SEPARATOR Ancillary Procedure Department of Ophthalmology in [place], [place] [address] [place] [phone] Justin Bunch M.D. [address] [place] [phone] 06/15/2023 2:45 PM COLLAR SEPARATOR Office Visit Department of Ophthalmology in [place], [place] [address] [place] [address] Justin Bunch M.D. 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 [address] [place] [address] PCP - General Internal Medicine 11/23/17 documented as of this encounter
--- OUTSIDE RECORDS SUMMARY | 2023-05-05 11:59 | XMS_ITS | Encounter Summary ---
Author Name Unknown Organization [facility] Address [address] [place] [address] Care Team Providers Care Executive Talent Acquisition Consultant Name Role Phone Clover Delaney M.D. Primary Care Provider [phone]- [phone] Reason for Referral * Outpatient (Routine) - Closed Specialty Diagnoses / Procedures Referred By Yenny t Referred To Contact Diagnoses Cancer Colon Transverse Personal History Procedures Colonoscopy Clover Delaney M.D. [address] [place] [address] [facility] Referral ID Status Reason Start Date Expiration Date Visits Re quested Visits Authorized [id number] Closed 03/09/2023 03/08/2024 1 1 [place] AND RESTAURANT Encounter Details Date Type Department Care Team (Late st Contact Info) Description 03/09/2023 Clinical Communication Department of [facility] Internal Medicine in [address] [place] [phone] Clover Delaney M.D. [address] [place] [address] Social History Tobacco Use Types [...] often do you attend chur ch or sabianist services? Never 07/28/2022 Do you belong to any clubs o r organizations such as buddhist groups, unions, fraternal or athletic groups, or [...] Answer Date Recorded PHQ-2 Score 0 06/06/2022 [facility] of Occupat ional [facility] - Occupational Stress Questionnaire Answer [...] place to sleep or slept in a retirement (including now)? No 07/28/2022 Depression Answer Date [...] Sex Assigned at Male 05/13/2021 10:11 AM RETAIL AND RESTAURANT Gender Identity Male 11/02/2017 7:22 PM CDT Sexual Orientation Straight 11/02/2017 7: 22 PM CDT documented as of this encounter Miscellaneous Notes * Telephone Encounter - Renata Jiang L.PJosé LuisN. - 03/09/2023 3:27 PM RETAIL AND RESTAURANT See portal message. [place] AND RESTAURANT documented in this encounter Plan of Treatment Upcoming Encounters Date Type Department Care Team (Latest Contact Info) Description 05/28/2023 10:00 AM RETAIL AND RESTAURANT Appointment Department of Laboratory Medicine in [place] [address] [place] [phone] Mónica Portillo APRN, C.N.P., M.S. [address] [place] [phone] 05/28/2023 10:10 AM RETAIL AND RESTAURANT Appointment Department of Laboratory Medicine in [place] [address] [place] [phone] Mónica Portillo APRN, C.N.P., M.S. [address] [place] [phone] 05/29/2023 8:00 AM RETAIL AND RESTAURANT Office Visit Department of Community Internal Medicine in [place] [address] [place] [phone] Clover Delaney M.D. [address] [place] [phone] Discharge Disposition: Home or Self Care 05/29/2023 10:15 AM RETAIL AND RESTAURANT Appointment Department of Radiology, [facility], in [place], [place] [address] [place] [phone] Mónica Portillo APRN, Kassandra.N.P., M.S. [address] [place] [phone] 05/29/2023 1:00 PM RETAIL AND RESTAURANT Procedure visit Department of Urology in [place], [place] [address] [place] [phone] Mónica Portillo APRN, C.N.P., M.S. [address] [place] [phone] 05/29/2023 3:00 PM RETAIL AND RESTAURANT Education Division of Nephrology and Hypertension in [place], [place] [address] [place] [phone] Mónica Portillo APRN, C.N.P., M.S. [address] [place] [phone] Sandeep Galicia R.N. [address] [place] [phone] 05/29/2023 4:00 PM RETAIL AND RESTAURANT Comprehensive Visit Division of Nephrology and Hypertension in [place], [place] [address] [place] [phone] Sera Casiano M.D., Ph.D. [address] [place] [phone] 06/15/2023 2:00 PM RETAIL AND RESTAURANT Ancillary Procedure Department of Ophthalmology in [place], [place] [address] [place] [phone] Justin Bunch M.D. [address] [place] [phone] 06/15/2023 2:30 PM RETAIL AND RESTAURANT Ancillary Procedure Department of Ophthalmology in [place], [place] [address] [place] [address] Justin Bunch M.D. [address] [place] [phone] 06/15/2023 2:45 PM RETAIL AND RESTAURANT Office Visit Department of Ophthalmology in [place], [place] [address] [place] [address] Justin Bunch M.D. [address] [place] [phone] documented as of this encounter Visit Diagnoses Diagnosis Cancer Colon Transverse Personal History- Primary documented in this encounter Additional Health Concerns Assessment Noted Time PHQ-9 Depression Total Score: 4 06/06/19 23 2:04 PM RETAIL AND RESTAURANT documented as of this encounter Care Teams Executive Talent Acquisition Consultant Relationship Specialty Start Date End Date Clover Delaney M.D. [address] [place] [phone] PCP - General Internal Medicine 11/23/17 documented as of this encounter
--- OUTSIDE RECORDS SUMMARY | 2023-05-05 11:59 | XMS_ITS | Encounter Summary ---
Author Name Unknown Organization [facility] Address [address] [place] [address] Care Team Providers Care Bung Dropper Name Role Phone Clover Delaney M.D. Primary Care Provider +1- [phone] Reason for Visit * Reason Comments Med Refill Encounter Details Date Type Department Care Team (Late st Contact Info) Description 03/11/2023 Refill Division of Nephrology and Hypertension in [place], [place] [address] [place] [phone] Mónica Portillo, TRIXIE, C.N.P., M.S. [address] [place] [phone] Med Refill Social History Tobacco Use Types [...] often do you attend chur ch or yarsanism services? Never 07/28/2022 Do you belong to [...] Answer Date Recorded PHQ-2 Score 0 06/06/2022 [facility] of Occupat ional Health - Occupational Stress [...] Sex Assigned at Male 05/13/2021 10:11 AM ACCOUNTS RECEIVABLE ACCOUNTANT Gender Identity Male 11/02/2017 7:22 PM CDT Sexual Orientation Straight 11/02/2017 7: 22 PM CDT documented as of this encounter Plan of Treatment Upcoming Encounters Date Type Department Care Team (Latest Contact Info) Description 05/28/2023 10:00 AM ACCOUNTS RECEIVABLE ACCOUNTANT Appointment Department of Laboratory Medicine in [place], [place] [address] [place] [address] Mónica Portillo APRN, C.N.P., M.S. [address] [place] [phone] 05/28/2023 10:10 AM ACCOUNTS RECEIVABLE ACCOUNTANT Appointment Department of Laboratory Medicine in [place], [place] [address] [place] [address] Mónica Portillo APRN, C.N.P., M.S. [address] [place] [phone] 05/29/2023 8:00 AM ACCOUNTS RECEIVABLE ACCOUNTANT Office Visit Department of Community Internal Medicine in [place], [place] [address] [place] [address] Clover Delaney M.D. [address] [place] [phone] Discharge Disposition: Home or Self Care 05/29/2023 10:15 AM ACCOUNTS RECEIVABLE ACCOUNTANT Appointment Department of Radiology, [facility], in [place], [place] [address] [place] [phone] Mónica Portillo APRN, C.N.P., M.S. [address] [place] [phone] 05/29/2023 1:00 PM ACCOUNTS RECEIVABLE ACCOUNTANT Procedure visit Department of Urology in [place], [place] [address] [place] [address] Mónica Portillo APRN, C.N.P., M.S. [address] [place] [phone] 05/29/2023 3:00 PM ACCOUNTS RECEIVABLE ACCOUNTANT Education Division of Nephrology and Hypertension in [place], [place] [address] [place] [phone] Mónica Portillo APRN, DrewNJosé LuisP., M.S. [address] [place] [phone] Sandeep Galicia R.N. [address] [place] [phone] 05/29/2023 4:00 PM ACCOUNTS RECEIVABLE ACCOUNTANT Comprehensive Visit Division of Nephrology and Hypertension in [place], [place] [address] [place] [phone] Sera Casiano M.D., Ph.D. [address] [place] [phone] 06/15/2023 2:00 PM ACCOUNTS RECEIVABLE ACCOUNTANT Ancillary Procedure Department of Ophthalmology in [place], [place] [address] [place] [phone] Justin Bunch M.D. [address] [place] [phone] 06/15/2023 2:30 PM ACCOUNTS RECEIVABLE ACCOUNTANT Ancillary Procedure Department of Ophthalmology in [address] [phone] Justin Bunch M.D. [address] [place] [phone] 06/15/2023 2:45 PM ACCOUNTS RECEIVABLE ACCOUNTANT Office Visit Department of Ophthalmology in [address] [phone] Justin Bunch M.D. [address] [place] [phone] documented as of this encounter Visit Diagnoses Not on filedocumented in this encounter Additional Health Concerns Assessment Noted Time PHQ-9 Depression Total Score: 4 06/06/19 23 2:04 PM ACCOUNTS RECEIVABLE ACCOUNTANT documented as of this encounter Care Teams Bung Dropper Relationship Specialty Start Date End Date Clover Delaney M.D. NPK[place]: [phone] [address] [place] [address] PCP - General Internal Medicine 11/23/17 documented as of this encounter
--- OUTSIDE RECORDS SUMMARY | 2023-05-05 11:59 | XMS_ITS | Encounter Summary ---
Author Name Unknown Organization [facility] Address [address] [place] [address] Care Team Providers Care Director Technical Name Role Phone Clover Delaney M.D. Primary Care Provider [phone] Reason for Visit * Reason Comments Blood Pressure Check * Outpatient (Routine) - Authorized Specialty Diagnoses / Procedures Referred By Contanthony t Referred To Contact Family Medicine Mónica Portillo APRN, C.N.P., M.S. [address] [place] [phone] [facility] Region Referral ID Status Reason Start Date Expiration Date V isits Requested Visits Authorized [id number] Authorized 03/02/2023 03/01/2026 1 1 Encounter Details Date Type Department Care Team (Late st Contact Info) Description 03/30/2023 1:00 PM LABOR DELIVERY SPECIALIST Nurse Only Department of Family Medicine, [facility], in [address] [address] Mónica Portillo APRN, C.N.P., M.S. [address] [place] [phone] Basilia Santiago L.P.N. [address] [place] [phone] Blood Pressure Check Discharge Disposition: Home or Self Care Social [...] 07/28/2022 How often do you attend chur or restorationism services? Never 07/28/2022 Do you belong to any clubs o r organizations such as latter-day groups, unions, fraternal or athletic groups, or [...] Answer Date Recorded PHQ-2 Score 0 06/06/2022 [facility] of Occupat ional Health [...] place to sleep or slept in a correction (including now)? No 07/28/2022 Depression Answer Date [...] Sex Assigned at Male 05/13/2021 10:11 AM LABOR DELIVERY SPECIALIST Gender Identity Male 11/02/2017 7:22 PM CDT Sexual Orientation Straight 11/02/2017 7: 22 PM CDT documented as of this encounter Last Filed Vital Signs Vital Sign Reading Time Taken Comments Blood Pressure 213/82 03/30/2023 12:43 PM LABOR DELIVERY SPECIALIST Pulse 50 03/30/2023 12:43 PM LABOR DELIVERY SPECIALIST Temperature - - Respiratory Rate - - Oxygen Saturation - - Inhaled Oxygen Concentration - - Weight - - Height - - Body Mass Index - - documented in this encounter Progress Notes * Basilia Santiago L.P.N. - 03/30/2023 1:00 PM CST Patient was here today in [place] for a blood pressure check and some lab results. He states that his home bp readings have been in the 190's systolically. 1st readin/81 Serial Avg's: 213/82 - 215/82 - 211/84 - 212/81 He is asymptomatic and the provider of the day stated he could go home. Will await your recommendations. He is currently taking his Avapro, 75 mg daily. R DELIVERY SPECIALIST documented in this encounter Plan of Treatment Upcoming Encounters Date Type Department Care Team (Latest Contact Info) Description 05/28/2023 10:00 AM LABOR DELIVERY SPECIALIST Appointment Department of Laboratory Medicine in [address] [place] [address] Mónica Portillo APRN, C.N.P., M.S. [address] [place] [address] 05/28/2023 10:10 AM LABOR DELIVERY SPECIALIST Appointment Department of Laboratory Medicine in [place], [place] [address] [place] [address] Mónica Portillo APRN, C.N.P., M.S. [address] [place] [address] 05/29/2023 8:00 AM LABOR DELIVERY SPECIALIST Office Visit Department of Community Internal Medicine in [place], [place] [address] [place] [address] Clover Delaney M.D. [address] [place] [phone] Discharge Disposition: Home or Self Care 05/29/2023 10:15 AM LABOR DELIVERY SPECIALIST Appointment Department of Radiology, [facility] in [place], [place] [address] [place] [address] Mónica Portillo APRN, C.N.P., M.S. [address] [place] [phone] 05/29/2023 1:00 PM LABOR DELIVERY SPECIALIST Procedure visit Department of Urology in [place], [place] [address] [place] [address] Mónica Portillo APRN, C.N.P., M.S. [address] [place] [phone] 05/29/2023 3:00 PM LABOR DELIVERY SPECIALIST Education Division of Nephrology and Hypertension in [place], [place] [address] [place] [address] Mónica Portillo APRN, C.N.P., M.S. [address] [place] [phone] Sandeep Galicia R.N. [address] [place] [phone] 05/29/2023 4:00 PM LABOR DELIVERY SPECIALIST Comprehensive Visit Division of Nephrology and Hypertension in [place], [place] [address] [place] [phone] Sera Casiano M.D., Ph.D. [address] [place] [phone] 06/15/2023 2:00 PM LABOR DELIVERY SPECIALIST Ancillary Procedure Department of Ophthalmology in [place], [place] [address] [place] [phone] Justin Bunch M.D. [address] [place] [phone] 06/15/2023 2:30 PM LABOR DELIVERY SPECIALIST Ancillary Procedure Department of Ophthalmology in [place], [place] [address] [place] [phone] Justin Bunch M.D. [address] [place] [phone] 06/15/2023 2:45 PM LABOR DELIVERY SPECIALIST Office Visit Department of Ophthalmology in [place], [place] [address] [place] [phone] Justin Bunch M.D. [address] [place] [phone] documented as of this encounter Visit Diagnoses Diagnosis Elevated Blood Pressure- Primary documented in this encounter Additional Health Concerns Assessment Noted Time PHQ-9 Depression Total Score: 4 06/06/19 23 2:04 PM LABOR DELIVERY SPECIALIST documented as of this encounter Care Teams Director Technical Relationship Specialty Start Date End Date Clover Delaney M.D. [address] [place] [phone] PCP - General Internal Medicine 11/23/17 documented as of this encounter
--- OUTSIDE RECORDS SUMMARY | 2023-05-05 11:59 | XMS_ITS | Encounter Summary ---
Author Name Unknown Organization [facility] Address [address] [place] [address] Care Team Providers Care Billing Administrator Name Role Phone Clover Delaney M.D. Primary Care Provider [phone] Encounter Details Date Type Department Care Team (Latest Contact Info) Description 03/30/2023 12:14 PM SENIOR MARKETING ANALYST - 03/30/2023 11:59 PM SENIOR MARKETING ANALYST Hospital Encounter Department of Laboratory Medicine in [address] [phone] Mónica Portillo, TRIXIE, C.N.P., M.S. [address] [place] [phone] Hypertension And Chronic Kidney Disease Stage 5 (HCC); Anemia Of Chronic Renal Disease Discharge Disposition: Home or Self Care Social [...] often do you attend chur ch or anabaptist services? Never 07/28/2022 Do you belong to any clubs o r organizations such as jain groups, unions, fraternal or athletic groups, or [...] Answer Date Recorded PHQ-2 Score 0 06/06/2022 [facility] of Occupat ional Health - Occupational Stress [...] Sex Assigned at Male 05/13/2021 10:11 AM SENIOR MARKETING ANALYST Gender Identity Male 11/02/2017 7:22 PM [...] 1,000 mcg by mouth daily. 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 180 tablet 3 09/05/2022 insulin glargine (Lantus Solostar U-100 Insulin) 100 unit/mL (3 mL) injectionIndications:Di abetes Mellitus Type 2 Hyperglycemia (HCC) Inject 16 [...] mouth as needed. 0 miscellaneous medical supply [facility] CPAP Supplies See Instructions, CPAP machine, mask 1 ea x 4 refills, headgear 1 ea x 2 refills, tubing 1 ea x 4 refills, filters 2 ea per month, tub 1 ea x 2 refills, mask seal 1 ea x 2 refills DX G47.33, length of need 99, 1 each, 0 Refill(s) 0 10/20/2016 miscellaneous medical supply [facility] Head Gear for CPAP Machine See Instructions, fax to patient at [phone], 1 each 0 01/17/2014 MULTIVITAMIN ORAL Daily Multiple Vitamins See Instructions, Take 1 tablet by mouth daily. 0 07/23/2013 multivitamin-eye (PRESERVISION LUTEIN) 226 mg-90 mg-5 mg-0.8 mg capsule Take 2 capsules by mouth daily. 0 ONETOUCH DELICA LANCETS 33 gauge [facility] 3 08/02/2018 OneTouch Ultra Test stripsIndications:Diabe daquan Mellitus Type 2 (HCC) Use to test once daily 100 strip 3 12/31/2021 pen needle, diabetic (UltiCare Pen Needle) 32 gauge x 1/4 needle 1 Injection daily. 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 0 03/02/2023 04/07/2023 documented as of this encounter Plan of Treatment Upcoming Encounters Date Type Department Care Team (Latest Contact Info) Description 05/28/2023 10:00 AM SENIOR MARKETING ANALYST Appointment Department of Laboratory Medicine in [place] [address] [place] [address] Mónica Portillo APRN, C.N.P., M.S. [address] [place] [phone] 05/28/2023 10:10 AM SENIOR MARKETING ANALYST Appointment Department of Laboratory Medicine in [place] [address] [place] [address] Mónica Portillo APRN, C.N.P., M.S. [address] [place] [phone] 05/29/2023 8:00 AM SENIOR MARKETING ANALYST Office Visit Department of Community Internal Medicine in [place] [address] [place] [address] Clover Delaney M.D. [address] [place] [phone] Discharge Disposition: Home or Self Care 05/29/2023 10:15 AM SENIOR MARKETING ANALYST Appointment Department of Radiology, [facility] in [place], [place] [address] [place] [phone] Mónica Portillo APRN, C.N.P., M.S. [address] [place] [phone] 05/29/2023 1:00 PM SENIOR MARKETING ANALYST Procedure visit Department of Urology in [place], [place] [address] [place] [phone] Mónica Portillo APRN, C.N.P., M.S. [address] [place] [phone] 05/29/2023 3:00 PM SENIOR MARKETING ANALYST Education Division of Nephrology and Hypertension in [place], [place] [address] [place] [phone] Mónica Portillo APRN, C.N.P., M.S. [address] [place] [phone] Sandeep Galicia R.Garima [address] [place] [phone] 05/29/2023 4:00 PM SENIOR MARKETING ANALYST Comprehensive Visit Division of Nephrology and Hypertension in [place], [place] [address] [place] [phone] Sera Casiano M.D., Ph.D. [address] [place] [phone] 06/15/2023 2:00 PM SENIOR MARKETING ANALYST Ancillary Procedure Department of Ophthalmology in [place], [place] [address] [place] [phone] Justin Bunch M.D. [address] [place] [phone] 06/15/2023 2:30 PM SENIOR MARKETING ANALYST Ancillary Procedure Department of Ophthalmology in [place], [place] [address] [place] [phone] Justin Bunch M.D. [address] [place] [phone] 06/15/2023 2:45 PM SENIOR MARKETING ANALYST Office Visit Department of Ophthalmology in [place], [place] [address] [place] [address] Justin Bunch M.D. [address] [place] [address] documented as of this encounter Procedures Procedure Name Priority Date/Time Associated Diagnosis Comments RENAL FUNCTION PANEL, S Routine 03/30/2023 12:21 PM SENIOR MARKETING ANALYST Hypertension And Chronic Kidney Disease Stage 5 (HCC) Anemia Of Chronic Renal Disease CBC WITHOUT DIFFERENTIAL, B Routine 03/30/2023 12:21 PM SENIOR MARKETING ANALYST Hypertension And Chronic Kidney Disease Stage 5 (HCC) Anemia Of Chronic Renal Disease HEMOGLOBIN A1C, B Routine 03/30/2023 12: 21 PM SENIOR MARKETING ANALYST Hypertension And Chronic Kidney Disease Stage 5 (HCC) Anemia Of Chronic Renal Disease documented in this encounter Results * (ABNORMAL) Hemoglobin A1c (03/30/2023 12:21 PM SENIOR MARKETING ANALYST) Hemoglobin A1c, B 6.8(H) 4.2 - 5.6 % 03/30/2023 12:36 PM SENIOR MARKETING ANALYST CNFL Comment: Hemoglobin A1c values greater than or equal to 6.5 percent are diagnostic for diabetes mellitus. ??Diagnosis should be confirmed by repeat testing. ??In diabetic patients, HbA1c goals should be discussed with healthcare provider. Blood (Blood, Venous) 03/30/2023 12:21 PM SENIOR MARKETING ANALYST 03/30/2023 12:23 PM SENIOR MARKETING ANALYST Mónica Portillo APRN C.N.P., M.S. LAB BLOOD ADD-ON [facility] [address] [place] [address], [facility] CN[facility] in [address] [address] * (ABNORMAL) Renal Function Panel (03/30/2023 12:21 PM SENIOR MARKETING ANALYST) Potassium, P 5.0 3.6 - 5.2 mmol/L 03/30/2023 12:57 PM SENIOR MARKETING ANALYST CNFL Sodium, P 140 135 - 145 mmol/L 03/30/2023 12:57 PM SENIOR MARKETING ANALYST CNFL Chloride, P 105 98 - 107 mmol/L 03/30/2023 12:57 PM SENIOR MARKETING ANALYST CNFL Bicarbonate, P 19(L) 22 - 29 mmol/L 03/30/2023 12:57 PM SENIOR MARKETING ANALYST CNFL Anion Gap, P 16(H) 7 - 15 03/30/2023 12:57 PM SENIOR MARKETING ANALYST [facility] BUN (Blood Urea Nitrogen), P 79(H) 8 - 24 mg/dL 03/30/2023 12:57 PM SENIOR MARKETING ANALYST CNFL Creatinine 4.12(H) 0.74 - 1.35 mg/dL 03/30/2023 12:57 PM SENIOR MARKETING ANALYST CNFL Estimated GFR (eGFR) <15(L) >=60 mL/min/BSA 03/30/2023 12:57 PM SENIOR MARKETING ANALYST CNFL Comment: Estimated GFR calculated using the 2020 CKD_EPI creatinine equation. Calcium, Total, P 8.6(L) 8.8 - 10.2 mg/dL 03/30/2023 12:57 PM SENIOR MARKETING ANALYST CNFL Glucose, P 167(H) 70 - 140 mg/dL 03/30/2023 12:57 PM SENIOR MARKETING ANALYST CNFL Albumin, P 3.8 3.5 - 5.0 g/dL 03/30/2023 12:57 PM SENIOR MARKETING ANALYST CNFL Phosphorus (Inorganic), P 7.3(H) 2.5 - 4.5 mg/dL 03/30/2023 12:57 PM SENIOR MARKETING ANALYST CNFL Blood (Blood, Venous) 03/30/2023 12:21 PM SENIOR MARKETING ANALYST 03/30/2023 12:23 PM SENIOR MARKETING ANALYST Kassandra Couch APRN.N.P., M.S. LAB BLOOD ADD-ON [facility] [address] [place] [address], [facility] in [address] [address] * (ABNORMAL) CBC without Differential (03/30/2023 12:21 PM SENIOR MARKETING ANALYST) Hemoglobin 9.9(L) 13.2 - 16.6 g/dL 03/30/2023 12:33 PM SENIOR MARKETING ANALYST CNFL Hematocrit 30.9(L) 38.3 - 48.6 % 03/30/2023 12:33 PM SENIOR MARKETING ANALYST CNFL Erythrocytes 3.26(L) 4.35 - 5.65 x10(12)/L 03/30/2023 12:33 PM SENIOR MARKETING ANALYST CNFL MCV 94.8 78.2 - 97.9 fL 03/30/2023 12:33 PM SENIOR MARKETING ANALYST CNFL RBC Distrib Width 14.4 11.8 - 14.5 % 03/30/2023 12:33 PM SENIOR MARKETING ANALYST CNFL Platelet Count 182 135 - 317 x10(9)/L 03/30/2023 12:33 PM SENIOR MARKETING ANALYST CNFL Leukocytes 10.0(H) 3.4 - 9.6 x10(9)/L 03/30/2023 12:33 PM SENIOR MARKETING ANALYST CNFL Blood (Blood, Venous) 03/30/2023 12:21 PM SENIOR MARKETING ANALYST 03/30/2023 12:23 PM SENIOR MARKETING ANALYST Kassandra Couch APRN.N.P., M.S. LAB BLOOD ADD-ON [facility] [address] [place] [address], [facility] in [address] [address] documented in this encounter Visit Diagnoses Diagnosis Hypertension And Chronic Kidney Disease Stage 5 (HCC) Anemia Of Chronic Renal Disease documented in this encounter Additional Health Concerns Assessment Noted Time PHQ-9 Depression Total Score: 4 06/06/19 23 2:04 PM SENIOR MARKETING ANALYST documented as of this encounter Care Teams Billing Administrator Relationship Specialty Start Date End Date Clover Delaney M.D. [address] [place] [phone] PCP - General Internal Medicine 11/23/17 documented as of this encounter
--- OUTSIDE RECORDS SUMMARY | 2023-05-05 11:59 | XMS_ITS | Encounter Summary ---
Author Name Unknown Organization [facility] Address [address] [place] [address] Care Team Providers Care Religious Healer Name Role Phone Clover Delaney M.D. Primary Care Provider [phone] Reason for Visit * Reason Comments Med Refill Encounter Details Date Type Department Care Team (Late st Contact Info) Description 03/11/2023 Refill Department of Community Internal Medicine in [address] [place] [phone] Clover Delaney M.D. [address] [place] [address] Med Refill Social History Tobacco [...] often do you attend chur ch or methodist services? Never 07/28/2022 Do you belong to any clubs o r organizations such as muslim groups, unions, fraternal or athletic groups, or [...] Answer Date Recorded PHQ-2 Score 0 06/06/2022 [facility] of Occupat ional Health - Occupational [...] Sex Assigned at Male 05/13/2021 10:11 AM TUBE PULLER Gender Identity Male 11/02/2017 7:22 PM CDT Sexual Orientation Straight 11/02/2017 7: 22 PM CDT documented as of this encounter Miscellaneous Notes * Telephone Encounter - Ellyn Cunningham - 03/11/2023 4:50 PM CST Nurse review: Unable to forward request to provider; Discrepancy; Patient taking Differently Primary Provider: Clover Delaney M.D. Requested Prescriptions Pending Prescriptions Disp Refills Lantus Solostar U-100 Insulin 100 unit/mL (3 mL) injection [Pharmacy Med Name: Lantus SoloStar Subcutaneous Solution Pen-injector 100 UNIT/ML] 30 mL 0 Sig: Inject 26 Units under the skin at bedtime. PULLER documented in this encounter Plan of Treatment Upcoming Encounters Date Type Department Care Team (Latest Contact Info) Description 05/28/2023 10:00 AM TUBE PULLER Appointment Department of Laboratory Medicine in [place] [address] [place] [address] Mónica Portillo APRN, C.N.P., M.S. [address] [place] [phone] 05/28/2023 10:10 AM TUBE PULLER Appointment Department of Laboratory Medicine in [place] [address] [place] [address] Mónica Portillo APRN, C.N.P., M.S. [address] [place] [phone] 05/29/2023 8:00 AM TUBE PULLER Office Visit Department of Community Internal Medicine in [place] [address] [place] [address] Clover Delaney M.D. [address] [place] [phone] Discharge Disposition: Home or Self Care 05/29/2023 10:15 AM TUBE PULLER Appointment Department of Radiology, [facility], [place] [address] [place] [address] Mónica Portillo APRN, Kassandra.N.P., M.S. [address] [place] [phone] 05/29/2023 1:00 PM TUBE PULLER Procedure visit Department of Urology in [place], [place] [address] [place] [place] [phone] Mónica Portillo APRN, C.NTaylor., M.S. [address] [place] [phone] 05/29/2023 3:00 PM TUBE PULLER Education Division of Nephrology and Hypertension in [place], [place] [address] [place] [phone] Mónica Portillo APRN, C.N.P., M.S. [address] [place] [phone] Sandepe Galicia R.N. [address] [place] [phone] 05/29/2023 4:00 PM TUBE PULLER Comprehensive Visit Division of Nephrology and Hypertension in [place], [place] [address] [place] [phone] Sera Casiano M.D., Ph.D. [address] [place] [phone] 06/15/2023 2:00 PM TUBE PULLER Ancillary Procedure Department of Ophthalmology in [place], [place] [address] [place] [place] [phone] Justin Bunch M.D. [address] [place] [phone] 06/15/2023 2:30 PM TUBE PULLER Ancillary Procedure Department of Ophthalmology in [place], [place] [address] [place] [place] [phone] Justin Bunch M.D. [address] [place] [address] 06/15/2023 2:45 PM TUBE PULLER Office Visit Department of Ophthalmology in [place], [place] [address] [place] [address] Justin Bunch M.D. [address] [place] [address] documented as of this encounter Visit Diagnoses Diagnosis Diabetes Mellitus Type 2 Hyperglycemia (HCC) documented in this encounter Additional Health Concerns Assessment Noted Time PHQ-9 Depression Total Score: 4 06/06/19 23 2:04 PM TUBE PULLER documented as of this encounter Care Teams Religious Healer Relationship Specialty Start Date End Date Clover Delaney M.D. [address] [place] [phone] PCP - General Internal Medicine 11/23/17 documented as of this encounter
--- OUTSIDE RECORDS SUMMARY | 2023-05-05 11:59 | XMS_ITS | Encounter Summary ---
Author Name Unknown Organization [facility] Address [address] [place] [address] Care Team Providers Care Mitten Sewer Name Role Phone Clover Delaney M.D. Primary Care Provider +1- [phone] Encounter Details Date Type Department Care Team (Latest Contact Info) Description 03/30/2023 12:13 PM [facility] Encounter Department of Laboratory Medicine in [address] [phone] Mónica Portillo, TRIXIE, C.N.P., M.S. 200 [place] [address] Hypertension And Chronic Kidney Disease Stage 5 [...] often do you attend chur ch or uatsdin services? Never 07/28/2022 Do you belong to any clubs o r organizations such as lutheran groups, unions, fraternal or athletic groups, or [...] Answer Date Recorded PHQ-2 Score 0 06/06/2022 [facility] of Occupat ional Health - Occupational Stress [...] Sex Assigned at Male 05/13/2021 10:11 AM VP RESPIRATORY Gender Identity Male 11/02/2017 7:22 PM CDT Sexual Orientation Straight 11/02/2017 7: 22 PM CDT documented as of this encounter Medications at Time of Discharge Medication Sig Dispensed Refills Start Date End Date aspirin 81 mg chewable tablet Chew 1 [...] mouth as needed. 0 miscellaneous medical supply misc CPAP Supplies See Instructions, CPAP machine, mask 1 ea x 4 refills, headgear 1 ea x 2 refills, tubing 1 ea x 4 refills, filters 2 ea per month, tub 1 ea x 2 refills, mask seal 1 ea x 2 refills DX G47.33, length of need 99, 1 each, 0 Refill(s) 0 10/20/2016 miscellaneous medical supply [facility] Head Gear for CPAP Machine See Instructions, fax to patient at [phone], 1 each 0 01/17/2014 MULTIVITAMIN ORAL Daily Multiple Vitamins See Instructions, Take 1 tablet by mouth daily. 0 07/23/2013 multivitamin-eye (PRESERVISION LUTEIN) 226 mg-90 mg-5 mg-0.8 mg capsule Take 2 capsules by mouth daily. 0 ONETOUCH DELICA LANCETS 33 gauge [facility] 3 08/02/2018 OneTouch Ultra Test stripsIndications:Diabe daquan [...] (Latest Contact Info) Description 05/28/2023 10:00 AM VP RESPIRATORY Appointment Department of Laboratory Medicine in [place] [address] [place] [phone] Mónica Portillo APRN, C.N.P., M.S. [address] [place] [phone] 05/28/2023 10:10 AM VP RESPIRATORY Appointment Department of Laboratory Medicine in [place] [address] [place] [address] Mónica Portillo APRN, C.N.P., M.S. [address] [place] [phone] 05/29/2023 8:00 AM VP RESPIRATORY Office Visit Department of Community Internal Medicine in [place] [address] [place] [address] Clover Delaney M.D. [address] [place] [phone] Discharge Disposition: Home or Self Care 05/29/2023 10:15 AM VP RESPIRATORY Appointment Department of Radiology, [facility], in [place], [place] [address] [place] [phone] Mónica Portillo APRN, C.N.P., M.S. [address] [place] [phone] 05/29/2023 1:00 PM VP RESPIRATORY Procedure visit Department of Urology in [place], [place] [address] [place] [phone] Mónica Portillo APRN, C.N.P., M.S. [address] [place] [phone] 05/29/2023 3:00 PM VP RESPIRATORY Education Division of Nephrology and Hypertension in [place], [place] [address] [place] [phone] Mónica Portillo APRN, C.NTaylor., M.S. [address] [place] [phone] Sandeep Galicia R.N. [address] [place] [phone] 05/29/2023 4:00 PM VP RESPIRATORY Comprehensive Visit Division of Nephrology and Hypertension in [place], [place] [address] [place] [phone] Sera Casiano M.D., Ph.D. [address] [place] [phone] 06/15/2023 2:00 PM VP RESPIRATORY Ancillary Procedure Department of Ophthalmology in [place], [place] [address] [place] [phone] Justin Bunch M.D. [address] [place] [phone] 06/15/2023 2:30 PM VP RESPIRATORY Ancillary Procedure Department of Ophthalmology in [place], [place] [address] [place] [phone] Justin Bunch M.D. [address] [place] [phone] 06/15/2023 2:45 PM VP RESPIRATORY Office Visit Department of Ophthalmology in [place], [place] [address] [place] [phone] Justin Bunch M.D. [address] [place] [address] [place] [phone] documented as of this encounter Procedures Procedure Name Priority Date/Time Associated Diagnosis Comments ALBUMIN, RANDOM, U Routine 03/30/2023 1: 12 PM VP RESPIRATORY Hypertension And Chronic Kidney Disease Stage 5 (HCC) Anemia Of Chronic Renal Disease URINALYSIS WITH MICROSCOPIC Routine 03/30/2023 1:12 PM VP RESPIRATORY Hypertension And Chronic Kidney Disease Stage 5 (HCC) Anemia Of Chronic Renal Disease documented in this encounter Results * (ABNORMAL) Urinalysis with Microscopic: Urine, Midstream (03/30/2023 1:12 PM VP RESPIRATORY) Source Urine, Urine, Midstream 03/30/2023 1:12 PM VP RESPIRATORY CNFL Clarity Clear Clear 03/30/2023 1:15 PM VP RESPIRATORY CNFL Color Yellow 03/30/2023 1:15 PM VP RESPIRATORY CNFL Comment: ----REFERENCE VALUE---- Colorless Yellow Susana Blood Small(A) Negative 03/30/2023 1:15 PM VP RESPIRATORY CNFL Nitrite Negative Negative 03/30/2023 1:15 PM VP RESPIRATORY CNFL Leukocyte Esterase Negative Negative 03/30/2023 1:15 PM VP RESPIRATORY CNFL Protein >=300(A) mg/dL 03/30/2023 1:15 PM VP RESPIRATORY CNFL Comment: ----REFERENCE VALUE---- Negative Trace Glucose 100(A) Negative mg/dL 03/30/2023 1:15 PM VP RESPIRATORY CNFL Ketones, QI(U) Negative Negative mg/dL 03/30/2023 1:15 PM VP RESPIRATORY CNFL Bilirubin Negative Negative 03/30/2023 1:15 PM VP RESPIRATORY CNFL pH 5.5 5.0 - 8.0 03/30/2023 1:15 PM VP RESPIRATORY CNFL Specific Mckinney 1.020 1.001 - 1.035 03/30/2023 1:15 PM VP RESPIRATORY CNFL Urobilinogen 0.2 0.2 - 1.0 mg/dL 03/30/2023 1:15 PM VP RESPIRATORY CNFL White Blood Cells Occ-3 /hpf 03/30/2023 1:47 PM VP RESPIRATORY CNFL Comment: ----REFERENCE VALUE---- Males: 0-3 Females: 0-10 Unknown: 0-10 Red Blood Cells 3-10(A) 0 - 2 /hpf 1:47 PM VP RESPIRATORY CNFL Urine (Urine, Midstream) 03/30/2023 1:12 PM VP RESPIRATORY 03/30/2023 1:12 PM VP RESPIRATORY Mónica Portillo APRN, C.N.P., M.S. LAB URINE ORDERABLES Performing Organization Address [facility] Co de Phone Number [facility] [address] [place] [address], [place] [address] * (ABNORMAL) Albumin, Random, Urine (03/30/2023 1:12 PM VP RESPIRATORY) Microalbumin 2148.9 mg/L 03/30/2023 1:47 PM VP RESPIRATORY CNFL Creatinine 31 mg/dL 03/30/2023 1:26 PM VP RESPIRATORY CNFL Albumin/Creatinin e Ratio 6932(H) <17 mg/g 03/30/2023 1:47 PM VP RESPIRATORY CNFL Urine (Urine, Midstream) 03/30/2023 1:12 PM VP RESPIRATORY 03/30/2023 1:12 PM VP RESPIRATORY Mónica Portillo APRN, C.N.P., M.S. LAB URINE ORDERABLES Performing Organization Address [facility] Co de Phone Number [facility] [address] [place] [address], [place] [address] documented in this encounter Visit Diagnoses Diagnosis Hypertension And Chronic Kidney Disease Stage 5 (HCC) Anemia Of Chronic Renal Disease documented in this encounter Additional Health Concerns Assessment Noted Time PHQ-9 Depression Total Score: 4 06/06/19 23 2:04 PM VP RESPIRATORY documented as of this encounter Care Teams Mitten Sewer Relationship Specialty Start Date End Date Clover Delaney M.D. [address] [place] [phone] PCP - General Internal Medicine 11/23/17 documented as of this encounter
--- OUTSIDE RECORDS SUMMARY | 2023-05-05 11:59 | XMS_ITS | Encounter Summary ---
Author Name Unknown Organization [facility] Address [address] [place] [address] Care Team Providers Care Automatic Wheel Line Operator Name Role Phone Clover Delaney M.D. Primary Care Provider +1- [phone] Encounter Details Date Type Department Care Team (Late st Contact Info) Description 03/06/2023 Ancillary Procedure Department of Ophthalmology Social History Tobacco Use Types Packs/Day Years [...] any clubs o r organizations such as mandaen groups, unions, fraternal or athletic groups, or [...] Date Recorded PHQ-2 Score 0 06/06/2022 [facility] of Occupat ional Health - Occupational [...] Sex Assigned at Male 05/13/2021 10:11 AM ASSEMBLER TRIM Gender Identity Male 11/02/2017 7:22 PM CDT Sexual Orientation Straight 11/02/2017 7: 22 PM CDT documented as of this encounter Plan of Treatment Upcoming Encounters Date Type Department Care Team (Latest Contact Info) Description 05/28/2023 10:00 AM ASSEMBLER TRIM Appointment Department of Laboratory Medicine in [address] [place] [phone] Mónica Portillo APRN, C.N.P., M.S. [address] [place] [phone] 05/28/2023 10:10 AM ASSEMBLER TRIM Appointment Department of Laboratory Medicine in [place], [place] [address] [place] [phone] Mónica Portillo APRN, C.N.P., M.S. [address] [place] [phone] 05/29/2023 8:00 AM ASSEMBLER TRIM Office Visit Department of Community Internal Medicine in [place], [place] [address] [place] [phone] Clover Delaney M.D. [address] [place] [phone] Discharge Disposition: Home or Self Care 05/29/2023 10:15 AM ASSEMBLER TRIM Appointment Department of Radiology, [facility], in [place], [place] [address] [place] [phone] Mónica Portillo APRN, C.N.P., M.S. [address] [place] [phone] 05/29/2023 1:00 PM ASSEMBLER TRIM Procedure visit Department of Urology in [place], [place] [address] [place] [phone] Mónica Portillo APRN, C.N.P., M.S. [address] [place] [phone] 05/29/2023 3:00 PM ASSEMBLER TRIM Education Division of Nephrology and Hypertension in [place], [place] [address] [place] [phone] Mónica Portillo APRN, C.N.P., M.S. [address] [place] [phone] Sandeep Galicia R.N. [address] [place] [phone] 05/29/2023 4:00 PM ASSEMBLER TRIM Comprehensive Visit Division of Nephrology and Hypertension in [place], [place] [address] [place] [phone] Sera Casiano M.D., Ph.D. [address] [place] [phone] 06/15/2023 2:00 PM ASSEMBLER TRIM Ancillary Procedure Department of Ophthalmology in [place], [place] [address] [place] [phone] Justin Bunch M.D. [address] [place] [phone] 06/15/2023 2:30 PM ASSEMBLER TRIM Ancillary Procedure Department of Ophthalmology in [place], [place] [address] [place] [phone] Justin Bunch M.D. [address] [place] [phone] 06/15/2023 2:45 PM ASSEMBLER TRIM Office Visit Department of Ophthalmology in [place], [place] [address] [place] [phone] Justin Bunch M.D. [address] [place] [phone] documented as of this encounter Procedures Procedure Name Priority Date/Time Associated Diagnosis Comments OPHTHALMOLOGY IMAGE EXAM Routine 03/06/2023 12:00 AM ASSEMBLER TRIM documented in this encounter Results * Eyes Spectralis OCT-Ophthalmology Image Exam (03/06/2023 12:00 AM ASSEMBLER TRIM) Narrative IIIL - 03/06/2023 2:10 PM ASSEMBLER TRIM This order has been created and auto-finalized [...] Total Score: 4 06/06/19 23 2:04 PM ASSEMBLER TRIM documented as of this encounter Care Teams Automatic Wheel Line Operator Relationship Specialty Start Date End Date Clover Delaney M.D. [address] [place] [phone] PCP - General Internal Medicine 11/23/17 documented as of this encounter
--- OUTSIDE RECORDS SUMMARY | 2023-05-05 11:59 | XMS_ITS | Encounter Summary ---
Author Name Unknown Organization [facility] Address [address] [place] [address] Care Team Providers Care Ship Yard Electrical Person Name Role Phone Clover Delaney M.D. Primary Care Provider +1- [phone] Reason for Visit * Outpatient (Routine) - Closed Specialty Diagnoses / Procedures Referred By Yenny t Referred To Contact Ophthalmology Jon Juarez M.D. [address] [place] [address] [facility] Referral ID Status Reason Start Date Expiration Date Visits Re quested Visits Authorized [id number] Closed 01/19/2023 01/18/2026 1 1 Encounter Details Date Type Department Care Team (Latest Contact Info) Description 03/06/2023 3:00 PM RESIDENTIAL DOOR UNIT INSTALLER Office Visit Department of Ophthalmology in [place], [place] [address] [place] [phone] Justin Bunch M.D. 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 Never 07/28/2022 Do you belong to any clubs o r organizations such as taoism groups, unions, fraternal or athletic groups, or [...] Answer Date Recorded PHQ-2 Score 0 06/06/2022 [facility] of Occupat ional Health - Occupational [...] Sex Assigned at Male 05/13/2021 10:11 AM RESIDENTIAL DOOR UNIT INSTALLER Gender Identity Male 11/02/2017 7:22 PM CDT Sexual Orientation Straight 11/02/2017 7: 22 PM CDT documented as of this encounter Progress Notes * Justin Bunch M.D. - 03/06/2023 3:00 PM CST Philip Patel was seen today. # Posterior vitreous detachment, RIGHT eye # hx Endophthalmitis, LEFT eye # hx Total retinal detachment, LEFT eye # Hypotony, LEFT eye -tap/inject (11/10/21 Mandviwala) after intravitreal injection on 11/05/21 -No growth on bacterial cultures -s/p PPV/PPL/360 retinectomy/endolaser/oil (Paez 03/03/22) # Aphakia, LEFT eye # Proliferative diabetic retinopathy, LEFT eye # Neovascular glaucoma, LEFT eye # Cataract, RIGHT eye # Anemia # Chronic kidney disease, stage 4 # Colon cancer # Granulomatosis with polyangiitis Selected imaging: OCT Macula 03/06/2023 : Right: foveal contour ok; tr temp and nasal IRF, MA and IRF superiorly Left: tabletop fibrotic bands; IRF with loss of foveal contour; choroidal folds Impression 03/06/2023 : Mr Patel feels that his vision is better in both eyes. He was seen in 12/2022 for new floaters andPVD right eye with suspicious superior retinal area, for which he underwent laser retinopexy. He did not have fluorescein angiography today due to his concern for destabilizing CKD. We discussed the low but non- zero risk of FA in this situation. If retinopathy worsens then we will rediscuss. Plan FU 14-16 weeks with OCT macula DENTIAL DOOR UNIT INSTALLER documented in this encounter Plan of Treatment Upcoming Encounters Date Type Department Care Team (Latest Contact Info) Description 05/28/2023 10:00 AM RESIDENTIAL DOOR UNIT INSTALLER Appointment Department of Laboratory Medicine in [address] [place] [place] [address] Mónica Portillo APRN, C.N.P., M.S. [address] [place] [phone] 05/28/2023 10:10 AM RESIDENTIAL DOOR UNIT INSTALLER Appointment Department of Laboratory Medicine in [place] [address] [place] [address] Mónica Portillo APRN, Kassandra.N.P., M.S. [address] [place] [phone] 05/29/2023 8:00 AM RESIDENTIAL DOOR UNIT INSTALLER Office Visit Department of Community Internal Medicine in [place] [address] [place] [phone] Clover Delaney M.D. [address] [place] [phone] Discharge Disposition: Home or Self Care 05/29/2023 10:15 AM RESIDENTIAL DOOR UNIT INSTALLER Appointment Department of Radiology, [facility], in [place], [place] [address] [place] [address] Mónica Portillo APRN, C.N.P., M.S. [address] [place] [phone] 05/29/2023 1:00 PM RESIDENTIAL DOOR UNIT INSTALLER Procedure visit Department of Urology in [place], [place] [address] [place] [address] Mónica Portillo APRN, C.N.P., M.S. [address] [place] [phone] 05/29/2023 3:00 PM RESIDENTIAL DOOR UNIT INSTALLER Education Division of Nephrology and Hypertension in [place], [place] [address] [place] [phone] Mónica Portillo APRN, C.N.P., M.S. [address] [place] [phone] Sandeep Galicia R.N. [address] [place] [phone] 05/29/2023 4:00 PM RESIDENTIAL DOOR UNIT INSTALLER Comprehensive Visit Division of Nephrology and Hypertension in [place], [place] [address] [place] [phone] Sera Casiano M.D., Ph.D. [address] [place] [phone] 06/15/2023 2:00 PM RESIDENTIAL DOOR UNIT INSTALLER Ancillary Procedure Department of Ophthalmology in [place], [place] [address] [place] [phone] Justin Bunch M.D. [address] [place] [phone] 06/15/2023 2:30 PM RESIDENTIAL DOOR UNIT INSTALLER Ancillary Procedure Department of Ophthalmology in [address] [phone] Justin Bunch M.D. [address] [place] [phone] 06/15/2023 2:45 PM RESIDENTIAL DOOR UNIT INSTALLER Office Visit Department of Ophthalmology in [address] [phone] Justin Bunch M.D. 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 [address] [place] [phone] PCP - General Internal Medicine 11/23/17 documented as of this encounter
--- OUTSIDE RECORDS SUMMARY | 2023-05-05 12:00 | XMS_ITS | Encounter Summary ---
Author Name Unknown Organization [facility] Address [address] [place] [address] Care Team Providers Care Manager Hospitality Name Role Phone Clover Delaney M.D. Primary Care Provider +1- [phone] Encounter Details Date Type Department Care Team (Late st Contact Info) Description 03/02/2023 Orders Only Division of Nephrology and Hypertension in [place], [place] [address] [place] [address] Mónica Portillo, TRIXIE, C.N.P., M.S. [address] [place] [address] Social History Tobacco Use Types Packs/Day Years [...] often do you attend chur ch or catholic services? Never 07/28/2022 Do you belong to any clubs o r organizations such as adventism groups, unions, fraternal or athletic groups, or [...] Answer Date Recorded PHQ-2 Score 0 06/06/2022 [facility] of Occupat ional Health - Occupational Stress [...] Sex Assigned at Male 05/13/2021 10:11 AM SCHEDULE CLERK Gender Identity Male 11/02/2017 7:22 PM CDT Sexual Orientation Straight 11/02/2017 7: 22 PM CDT documented as of this encounter Plan of Treatment Upcoming Encounters Date Type Department Care Team (Latest Contact Info) Description 05/28/2023 10:00 AM SCHEDULE CLERK Appointment Department of Laboratory Medicine in [place] [address] [place] [phone] Mónica Portillo APRN, C.N.P., M.S. [address] [place] [phone] 05/28/2023 10:10 AM SCHEDULE CLERK Appointment Department of Laboratory Medicine in [place] [address] [place] [address] Mónica Portillo APRN, C.N.P., M.S. [address] [place] [phone] 05/29/2023 8:00 AM SCHEDULE CLERK Office Visit Department of Community Internal Medicine in [place] [address] [place] [phone] Clover Delaney M.D. [address] [place] [phone] Discharge Disposition: Home or Self Care 05/29/2023 10:15 AM SCHEDULE CLERK Appointment Department of Radiology, [facility], in [place], [place] [address] [place] [phone] Mónica Portillo APRN, Kassandra.N.P., M.S. [address] [place] [phone] 05/29/2023 1:00 PM SCHEDULE CLERK Procedure visit Department of Urology in [place], [place] [address] [place] [phone] Mónica Portillo APRN, C.N.P., M.S. [address] [place] [phone] 05/29/2023 3:00 PM SCHEDULE CLERK Education Division of Nephrology and Hypertension in [place], [place] [address] [place] [phone] Mónica Portillo APRN, C.NJosé LuisP., M.S. [address] [place] [phone] Sandeep Galicia R.N. [address] [place] [phone] 05/29/2023 4:00 PM SCHEDULE CLERK Comprehensive Visit Division of Nephrology and Hypertension in [place], [place] [address] [place] [phone] Sera Casiano M.D., Ph.D. [address] [place] [phone] 06/15/2023 2:00 PM SCHEDULE CLERK Ancillary Procedure Department of Ophthalmology in [address] [phone] Justin Bunch M.D. [address] [place] [phone] 06/15/2023 2:30 PM SCHEDULE CLERK Ancillary Procedure Department of Ophthalmology in [address] [address] Justin Bunch M.D. [address] [place] [phone] 06/15/2023 2:45 PM SCHEDULE CLERK Office Visit Department of Ophthalmology in [address] [phone] Justin Bunch M.D. [address] [place] [phone] documented as of this encounter Visit Diagnoses Not on filedocumented in this encounter Additional Health Concerns Assessment Noted Time PHQ-9 Depression Total Score: 4 06/06/19 23 2:04 PM SCHEDULE CLERK documented as of this encounter Care Teams Manager Hospitality Relationship Specialty Start Date End Date Clovre Delaney M.D. [address] [place] [phone] PCP - General Internal Medicine 11/23/17 documented as of this encounter
--- OUTSIDE RECORDS SUMMARY | 2023-05-05 12:00 | XMS_ITS | Encounter Summary ---
Author Name Unknown Organization [facility] Address [address] [place] [address] Care Team Providers Care Activated Sludge Operator Name Role Phone Clover Delaney M.D. 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 200 [place] [address] [facility] Region Referral ID Status Reason Start Date Expiration Date V isits Requested Visits Authorized [id number] Pending Review 09/03/2022 09/03/2023 12 12 Encounter Details Date Type Department Care Team (Late st Contact Info) Description 03/02/2023 1:30 PM CELLULAR EQUIPMENT INSTALLER Infusion Department of Infusion Therapy in [address] [phone] Mónica Portillo APRN, C.N.P., M.S. [address] [place] [phone] Anemia Of Chronic Renal Disease (Primary Dx) [...] often do you attend chur ch or muslim services? Never 07/28/2022 Do you belong to any clubs o r organizations such as judaism groups, unions, fraternal or athletic groups, or [...] Answer Date Recorded PHQ-2 Score 0 06/06/2022 [facility] - [...] Sex Assigned at Male 05/13/2021 10:11 AM CELLULAR EQUIPMENT INSTALLER Gender Identity Male 11/02/2017 7:22 PM CDT Sexual Orientation Straight 11/02/2017 7: 22 PM CDT documented as of this encounter Miscellaneous Notes * Addendum Note - Elle Hawley R.N. - 03/02/2023 1:30 PM CSTAddended by: ELLE HAWLEY on: 03/06/2023 11:24 AM Modules accepted: Orders ULAR EQUIPMENT INSTALLER documented in this encounter Plan of Treatment Upcoming Encounters Date Type Department Care Team (Latest Contact Info) Description 05/28/2023 10:00 AM CELLULAR EQUIPMENT INSTALLER Appointment Department of Laboratory Medicine in [place] [address] [place] [address] Mónica Portillo APRN, C.N.P., M.S. [address] [place] [phone] 05/28/2023 10:10 AM CELLULAR EQUIPMENT INSTALLER Appointment Department of Laboratory Medicine in [place], [place] [address] [place] [place] [address] Mónica Portillo APRN, C.N.P., M.S. [address] [place] [phone] 05/29/2023 8:00 AM CELLULAR EQUIPMENT INSTALLER Office Visit Department of Community Internal Medicine in [place], [place] [address] [place] [address] Clover Delaney M.D. [address] [place] [phone] Discharge Disposition: Home or Self Care 05/29/2023 10:15 AM CELLULAR EQUIPMENT INSTALLER Appointment Department of Radiology, [facility], in [place], [place] [address] [place] [phone] Mónica Portillo APRN, C.N.P., M.S. [address] [place] [phone] 05/29/2023 1:00 PM CELLULAR EQUIPMENT INSTALLER Procedure visit Department of Urology in [place], [place] [address] [place] [phone] Mónica Portillo APRN, C.N.P., M.S. [address] [place] [phone] 05/29/2023 3:00 PM CELLULAR EQUIPMENT INSTALLER Education Division of Nephrology and Hypertension in [place], [place] [address] [place] [phone] Mónica Portillo APRN, C.N.P., M.S. [address] [place] [phone] Sandeep Galicia R.N. [address] [place] [phone] 05/29/2023 4:00 PM CELLULAR EQUIPMENT INSTALLER Comprehensive Visit Division of Nephrology and Hypertension in [place], [place] [address] [place] [phone] Sera Casiano M.D., Ph.D. [address] [place] [phone] 06/15/2023 2:00 PM CELLULAR EQUIPMENT INSTALLER Ancillary Procedure Department of Ophthalmology in [place], [place] [address] [place] [address] Justin Bunch M.D. [address] [place] [phone] 06/15/2023 2:30 PM CELLULAR EQUIPMENT INSTALLER Ancillary Procedure Department of Ophthalmology in [place], [place] [address] [place] [phone] Justin Bunch M.D. [address] [place] [phone] 06/15/2023 2:45 PM CELLULAR EQUIPMENT INSTALLER Office Visit Department of Ophthalmology in [place], [place] [address] [place] [phone] Justin Bunch M.D. 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 [address] [place] [address] PCP - General Internal Medicine 11/23/17 documented as of this encounter
--- OUTSIDE RECORDS SUMMARY | 2023-05-05 12:00 | XMS_ITS | Encounter Summary ---
Author Name Unknown Organization [facility] Address [address] [place] [address] Care Team Providers Care College Physics Instructor Name Role Phone Clover Delaney M.D. Primary Care Provider [phone]- [phone] Reason for Referral * Outpatient (Routine) - Closed Specialty Diagnoses / Procedures Referred By Yenny hunter Referred To Contact Nephrology and Hypertension Mónica Portillo APRN, C.NJosé LuisP., M.S. [address] [place] [phone] [facility] Referral ID Status Reason Start Date Expiration Date Visits Re quested Visits Authorized [id number] Closed 03/02/2023 03/01/2026 1 1 Scheduling Instructions Please coordinate labs with monthly CBC at [facility] and virtual follow up thanks HORSE DRIVER Reason for Visit * Reason Comments Chronic Kidney Disease * Outpatient (Routine) - Closed Specialty Diagnoses / Procedures Referred By Yenny hunter Referred To Contact Nephrology and Hypertension Mónica Portillo APRN, C.N.P., M.S. [address] [place] [phone] [facility] Referral ID Status Reason Start Date Expiration Date Visits Re quested Visits Authorized [id number] Closed 09/03/2022 09/02/2025 1 1 Encounter Details Date Type Department Care Team (Latest Contact Info) Description 03/02/2023 8:30 AM SHOW HORSE DRIVER Telemedicine Division of Nephrology and Hypertension in [place], [place] [address] [place] [address] Mónica Portillo APRN C.N.P., M.S. [address] [place] [address] Hypertension And Chronic Kidney Disease Stage 5 (HCC) (Primary Dx); Anemia Of Chronic Renal Disease Social History Tobacco Use Types Packs/Day Years [...] place to sleep or slept in a group home (including now)? No 07/28/2022 Depression Answer [...] Sex Assigned at Male 05/13/2021 10:11 AM SHOW HORSE DRIVER Gender Identity Male 11/02/2017 7:22 PM CDT Sexual Orientation Straight 11/02/2017 7: 22 PM CDT documented as of this encounter Last Filed Vital Signs Vital Sign Reading Time Taken Comments Blood Pressure - - Pulse - - Temperature - - Respiratory Rate - - Oxygen Saturation - - Inhaled Oxygen Concentration - - Weight 152 kg (335 lb) 03/02/2023 8:22 AM SHOW HORSE DRIVER narayan guzman reported Height - - Body Mass Index 48.5 03/31/2022 2:55 PM SHOW HORSE DRIVER documented in this encounter Progress Notes * Mónica Portillo APRN, C.N.P., M.S. - 03/02/2023 8:30 AM CST SUBJECTIVE CHIEF COMPLAINT / REASON FOR VISIT Chief Complaint Patient presents with Chronic Kidney Disease Follow up conducted via real-time audio/video technology by Mónica Portillo APRN, C.N.P., M.S. in [facility] to the patient in Patient's Home HISTORY OF PRESENT ILLNESS Mr. Patel is a 77 y.o. 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 He was seen for follow-up chronic kidney disease stage 4 September 03, 2022 when creatinine was 3.10 and GFR was 20 mL/min. At that time, 2 Feraheme infusions and monthly Aranesp 60 mcg, consideration for G LP 1 agonist and dialysis Education were recommended. He presents virtually for ongoing evaluation of chronic kidney disease. Unfortunately due to multiple medical events During the month of January; retinal tear, his fell with injuries and then was COVID positive, he missed January Aranesp injection. He reports that his vision has improved and he is working with a sports medicine trainer for improved balance and strength. He admits to dietary indiscretions of high sodium meals and increased caloric intake with sweets. He reports fasting blood glucose of 102 this morning. Home blood pressures range from 140-150 systolic. He says his home blood pressure monitor will not record the diastolic reading. He endorses fatigue tells me that he feels old.He denies chest pain, chest pressure, syncope or presyncope. REVIEW OF SYSTEMS OBJECTIVE Vitals: 03/02/23 0822 BP: Comment: unable to get accurate reading on home machine PainSc: 0-No pain PHYSICAL EXAMINATION Constitutional General: He is not in acute distress. Neurological Mental Status: He is alert and oriented to person, place, and time. Psychiatric Mood and Affect: Mood normal. Behavior: Behavior normal. ASSESSMENT / PLAN #1 Chronic kidney disease (CKD) stage 4-5, likely multifactorial and secondary to type 2 diabetes mellitus, hypertension, vasculitis, obesity, secondary FSGS and small-vessel renal disease Creatinine has spiked at 4.02 and GFR is 15 mL/min. Electrolytes are satisfactory. He reports fasting labs and little to no fluid intake in the 12 hours preceding lab draw. I am reluctant to increaseirbesartan in the setting of elevated creatinine and because I am unable to assess his fluid volume, I am not comfortable increasing the torsemide today. He agrees with the following: Plan Increase Aranesp to 80 mcg monthly beginning with today's injection. Obtain OMRON or comparable home blood pressure monitor. Measure and record daily weight and BP. Measure 3 BP is daily 1 hour after taking a.m. medications and record average or lowest BP. Schedule nurse blood pressure check and compare with home BP monitor. Repeat renal function panel and microalbumin coordinated with monthly CBC. Virtual CKD follow-up 1 month. #2 CKD treatment options Renal replacement therapy options Education has been scheduled for March 03. #3 Hypertension For control. Plan as above. Anti-Hypertensives carvediloL (COREG) 12.5 mg tablet TAKE ONE TABLET BY MOUTH TWICE A DAY WITH MEALS irbesartan (AVAPRO) 75 mg tablet Take 1 tablet (75 mg total) by mouth daily. torsemide (DEMADEX) 10 mg tablet Take 3 tablets (30 mg total) by mouth daily. #4 Anemia of CKD Hemoglobin trended downward at 9.2. #5 Hyperparathyroidism, renal secondary Mild hypocalcemia. Phosphorus and PTH have trended upward. Recommend dietary phosphorus moderation and in addition, add calcium carbonate 500 mg t.i.d. meals and snacks. Continue vitamin D3 2000 International Unit daily. #6 Metabolic acidosis screening At goal without oral replacement. HORSE DRIVER documented in this encounter Plan of Treatment Upcoming Encounters Date Type Department Care Team (Latest Contact Info) Description 05/28/2023 10:00 AM SHOW HORSE DRIVER Appointment Department of Laboratory Medicine in [place] [address] [place] [address] Mónica Portillo APRN, Kassandra.N.P., M.S. [address] [place] [phone] 05/28/2023 10:10 AM SHOW HORSE DRIVER Appointment Department of Laboratory Medicine in [place], [place] [address] [place] [address] Mónica Portillo APRN, C.N.P., M.S. [address] [place] [phone] 05/29/2023 8:00 AM SHOW HORSE DRIVER Office Visit Department of Community Internal Medicine in [place], [place] [address] [place] [address] Clover Delaney M.D. [address] [place] [address] Discharge Disposition: Home or Self Care 05/29/2023 10:15 AM SHOW HORSE DRIVER Appointment Department of Radiology, [facility], in [place], [place] [address] [place] [phone] Mónica Portillo APRN, C.N.P., M.S. [address] [place] [phone] 05/29/2023 1:00 PM SHOW HORSE DRIVER Procedure visit Department of Urology in [place], [place] [address] [place] [phone] Mónica Portillo APRN, C.N.P., M.S. [address] [place] [phone] 05/29/2023 3:00 PM SHOW HORSE DRIVER Education Division of Nephrology and Hypertension in [place], [place] [address] [place] [phone] Mónica Portillo APRN, C.N.P., M.S. [address] [place] [phone] Sandeep Galicia R.N. [address] [place] [phone] 05/29/2023 4:00 PM SHOW HORSE DRIVER Comprehensive Visit Division of Nephrology and Hypertension in [place], [place] [address] [place] [phone] Sera Casiano M.D., Ph.D. [address] [place] [phone] 06/15/2023 2:00 PM SHOW HORSE DRIVER Ancillary Procedure Department of Ophthalmology in [place], [place] [address] [place] [phone] Justin Bunch M.D. [address] [place] [phone] 06/15/2023 2:30 PM SHOW HORSE DRIVER Ancillary Procedure Department of Ophthalmology in [place], [place] [address] [place] [phone] Justin Bunch M.D. [address] [place] [phone] 06/15/2023 2:45 PM SHOW HORSE DRIVER Office Visit Department of Ophthalmology in [place], [place] [address] [place] [phone] Justin Bunch M.D. [address] [place] [phone] Scheduled Referrals Name Type Priority Associated Diagnoses Order Schedule Nephrology and Hypertension office visit (clinic) Outpatient Referral Routine Expected: 04/01/2023, Expires: 05/30/2024 documented as of this encounter Results * (ABNORMAL) Urinalysis with Microscopic: Urine, Midstream (03/30/2023 1:12 PM SHOW HORSE DRIVER) Source Urine, Urine, Midstream 03/30/2023 1:12 PM SHOW HORSE DRIVER CNFL Clarity Clear Clear 03/30/2023 1:15 PM SHOW HORSE DRIVER CNFL Color Yellow 03/30/2023 1:15 PM SHOW HORSE DRIVER CNFL Comment: ----REFERENCE VALUE---- Colorless Yellow Susana Blood Small(A) Negative 03/30/2023 1:15 PM SHOW HORSE DRIVER CNFL Nitrite Negative Negative 03/30/2023 1:15 PM SHOW HORSE DRIVER CNFL Leukocyte Esterase Negative Negative 03/30/2023 1:15 PM SHOW HORSE DRIVER CNFL Protein >=300(A) mg/dL 03/30/2023 1:15 PM SHOW HORSE DRIVER CNFL Comment: ----REFERENCE VALUE---- Negative Trace Glucose 100(A) Negative mg/dL 03/30/2023 1:15 PM SHOW HORSE DRIVER CNFL Ketones, QI(U) Negative Negative mg/dL 03/30/2023 1:15 PM SHOW HORSE DRIVER CNFL Bilirubin Negative Negative 03/30/2023 1:15 PM SHOW HORSE DRIVER CNFL pH 5.5 5.0 - 8.0 03/30/2023 1:15 PM SHOW HORSE DRIVER CNFL Specific [place] 1.020 1.001 - 1.035 03/30/2023 1:15 PM SHOW HORSE DRIVER CNFL Urobilinogen 0.2 0.2 - 1.0 mg/dL 03/30/2023 1:15 PM SHOW HORSE DRIVER CNFL White Blood Cells Occ-3 /hpf 03/30/2023 1:47 PM SHOW HORSE DRIVER CNFL Comment: ----REFERENCE VALUE---- Males: 0-3 Females: 0-10 Unknown: 0-10 Red Blood Cells 3-10(A) 0 - 2 /hpf 1:47 PM SHOW HORSE DRIVER CNFL Urine (Urine, Midstream) 03/30/2023 1:12 PM SHOW HORSE DRIVER 03/30/2023 1:12 PM SHOW HORSE DRIVER Mónica Portillo APRN C.N.P., M.S. LAB URINE ORDERABLES Performing Organization Address City/State/[facility] [[email or web address]] Co de Phone Number [facility] [address] [place] [address], [facility] CNFL [facility] [place] [address] * (ABNORMAL) Albumin, Random, Urine (03/30/2023 1:12 PM SHOW HORSE DRIVER) Microalbumin 2148.9 mg/L 03/30/2023 1:47 PM SHOW HORSE DRIVER CNFL Creatinine 31 mg/dL 03/30/2023 1:26 PM SHOW HORSE DRIVER CNFL Albumin/Creatinin e Ratio 6932(H) <17 mg/g 03/30/2023 1:47 PM SHOW HORSE DRIVER CNFL Urine (Urine, Midstream) 03/30/2023 1:12 PM SHOW HORSE DRIVER 03/30/2023 1:12 PM SHOW HORSE DRIVER Mónica Portillo APRN C.N.P., M.S. LAB URINE ORDERABLES Performing Organization Address [facility]/ZIP Co de Phone Number [facility] [address] [place] [address], [address] [address] * (ABNORMAL) Hemoglobin A1c (03/30/2023 12:21 PM SHOW HORSE DRIVER) Hemoglobin A1c, B 6.8(H) 4.2 - 5.6 % 03/30/2023 12:36 PM SHOW HORSE DRIVER CNFL Comment: Hemoglobin A1c values greater than or equal to 6.5 percent are diagnostic for diabetes mellitus. ??Diagnosis should be confirmed by repeat testing. ??In diabetic patients, HbA1c goals should be discussed with healthcare provider. Blood (Blood, Venous) 03/30/2023 12:21 PM SHOW HORSE DRIVER 03/30/2023 12:23 PM SHOW HORSE DRIVER Mónica Portillo APRN, C.N.P., M.S. LAB BLOOD ADD-ON Performing Organization Address City/[facility]/ZIP Co de Phone Number [facility] [place] [facility] [address] [place] [phone], [facility] in [address] [address] * (ABNORMAL) Renal Function Panel (03/30/2023 12:21 PM SHOW HORSE DRIVER) Potassium, P 5.0 3.6 - 5.2 mmol/L 03/30/2023 12:57 PM SHOW HORSE DRIVER CNFL Sodium, P 140 135 - 145 mmol/L 03/30/2023 12:57 PM SHOW HORSE DRIVER CNFL Chloride, P 105 98 - 107 mmol/L 03/30/2023 12:57 PM SHOW HORSE DRIVER CNFL Bicarbonate, P 19(L) 22 - 29 mmol/L 03/30/2023 12:57 PM SHOW HORSE DRIVER CNFL Anion Gap, P 16(H) 7 - 15 03/30/2023 12:57 PM SHOW HORSE DRIVER CNFL BUN (Blood Urea Nitrogen), P 79(H) 8 - 24 mg/dL 03/30/2023 12:57 PM SHOW HORSE DRIVER CNFL Creatinine 4.12(H) 0.74 - 1.35 mg/dL 03/30/2023 12:57 PM SHOW HORSE DRIVER CNFL Estimated GFR (eGFR) <15(L) >=60 mL/min/BSA 03/30/2023 12:57 PM SHOW HORSE DRIVER CNFL Comment: Estimated GFR calculated using the 2020 CKD_EPI creatinine equation. Calcium, Total, P 8.6(L) 8.8 - 10.2 mg/dL 03/30/2023 12:57 PM SHOW HORSE DRIVER CNFL Glucose, P 167(H) 70 - 140 mg/dL 03/30/2023 12:57 PM SHOW HORSE DRIVER CNFL Albumin, P 3.8 3.5 - 5.0 g/dL 03/30/2023 12:57 PM SHOW HORSE DRIVER CNFL Phosphorus (Inorganic), P 7.3(H) 2.5 - 4.5 mg/dL 03/30/2023 12:57 PM SHOW HORSE DRIVER CNFL Blood (Blood, Venous) 03/30/2023 12:21 PM SHOW HORSE DRIVER 03/30/2023 12:23 PM SHOW HORSE DRIVER Mónica Portillo APRN C.N.P., M.S. LAB BLOOD ADD-ON Performing Organization Address City/State/[facility] [[email or web address]] Co de Phone Number [facility] [address] [place] [address], [facility] CNFL [facility] [place] [address] * (ABNORMAL) CBC without Differential (03/30/2023 12:21 PM SHOW HORSE DRIVER) Hemoglobin 9.9(L) 13.2 - 16.6 g/dL 03/30/2023 12:33 PM SHOW HORSE DRIVER CNFL Hematocrit 30.9(L) 38.3 - 48.6 % 03/30/2023 12:33 PM SHOW HORSE DRIVER CNFL Erythrocytes 3.26(L) 4.35 - 5.65 x10(12)/L 03/30/2023 12:33 PM SHOW HORSE DRIVER CNFL MCV 94.8 78.2 - 97.9 fL 03/30/2023 12:33 PM SHOW HORSE DRIVER CNFL RBC Distrib Width 14.4 11.8 - 14.5 % 03/30/2023 12:33 PM SHOW HORSE DRIVER CNFL Platelet Count 182 135 - 317 x10(9)/L 03/30/2023 12:33 PM SHOW HORSE DRIVER CNFL Leukocytes 10.0(H) 3.4 - 9.6 x10(9)/L 03/30/2023 12:33 PM SHOW HORSE DRIVER CNFL Blood (Blood, Venous) 03/30/2023 12:21 PM SHOW HORSE DRIVER 03/30/2023 12:23 PM SHOW HORSE DRIVER Mónica Portillo APRN, C.N.P., M.S. LAB BLOOD ADD-ON [facility] [address] [place] [address], [facility] CNFL [facility] in [address] [address] documented in this encounter Visit Diagnoses Diagnosis Hypertension And Chronic Kidney Disease Stage 5 (HCC)- Primary Anemia Of Chronic Renal Disease documented in this encounter Additional Health Concerns Assessment Noted Time PHQ-9 Depression Total Score: 4 06/06/19 23 2:04 PM SHOW HORSE DRIVER documented as of this encounter Care Teams College Physics Instructor Relationship Specialty Start Date End Date Clover Delaney M.D. NPKatlin: [phone] [address] [place] [address] PCP - General Internal Medicine 11/23/17 documented as of this encounter
--- OUTSIDE RECORDS SUMMARY | 2023-05-05 12:00 | XMS_ITS | Encounter Summary ---
Author Name Unknown Organization [facility] Address [address] [place] [address] Care Team Providers Care Body Presser Name Role Phone Clover Delaney M.D. 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 200 [place] [address] [facility] Region Referral ID Status Reason Start Date Expiration Date V isits Requested Visits Authorized [id number] Pending Review 09/03/2022 09/03/2023 12 12 Encounter Details Date Type Department Care Team (Latest Contact Info) Description 03/02/2023 12:36 PM ACCOUNT FINANCIAL MANAGER - 03/02/2023 11:59 PM ACCOUNT FINANCIAL MANAGER Hospital Encounter Department of Laboratory Medicine in [address] [phone] Mónica Portillo APRN, C.N.P., M.S. [address] [place] [phone] Anemia Of Chronic Renal Disease Discharge Disposition: [...] often do you attend chur ch or yazdanism services? Never 07/28/2022 Do you belong to any clubs o r organizations such as roman catholic groups, unions, fraternal or athletic groups, or [...] Answer Date Recorded PHQ-2 Score 0 06/06/2022 [facility] - Occupational Stress Questionnaire Answer Date [...] place to sleep or slept in a care home (including now)? No 07/28/2022 Depression Answer [...] have received? Professional school degree (e.g., MD, MAREK, DVM, NACHO) 10/10/2020 Sex and Gender Information Value Date Recorded Sex Assigned at Male 05/13/2021 10:11 AM ACCOUNT FINANCIAL MANAGER Gender Identity Male 11/02/2017 7:22 PM CDT [...] by mouth daily. 180 tablet 3 09/05/2022 irbesartan (AVAPRO) 75 mg tablet Take 1 tablet (75 mg total) by mouth daily. 90 tablet 3 07/29/2022 iron,carbonyl-vitamin C (VITRON-C) 65 mg iron- [address] tablet Take 65 mg of iron by mouth daily. Do not crush or chew. 0 loperamide (IMODIUM A-D) 2 mg tablet Take 2 mg by mouth as needed. 0 miscellaneous medical supply [facility] CPAP Supplies See Instructions, CPAP machine, mask 1 ea x 4 refills, headgear 1 ea x 2 refills, tubing 1 ea x 4 refills, filters 2 ea per month, tub 1 ea x 2 refills, mask seal 1 ea x 2 refills DX G47.33, length of need 99, 1 each, 0 Refill(s) 0 10/20/2016 miscellaneous medical supply [facility] Head Gear for CPAP Machine See Instructions, fax to patient at [phone], 1 each 0 01/17/2014 MULTIVITAMIN ORAL Daily Multiple Vitamins See Instructions, Take 1 tablet by mouth daily. 0 07/23/2013 multivitamin-eye (PRESERVISION LUTEIN) 226 mg-90 mg-5 mg-0.8 mg capsule Take 2 capsules by mouth daily. 0 ONETOUCH DELICA LANCETS 33 gauge [facility] 3 08/02/2018 OneTouch Ultra Test stripsIndications:Diabe daquan Mellitus Type 2 (HCC) Use to test once daily 100 strip 3 12/31/2021 pen needle, diabetic (UltiCare Pen Needle) 32 gauge x 1/4 needle 1 Injection daily. 100 each 3 04/07/2022 prednisoLONE acetate (PRED FORTE) 1 % ophthalmic [...] a day with meals. 0 03/02/2023 04/07/2023 insulin glargine (Lantus Solostar U-100 Insulin) 100 unit/mL (3 mL) injectionIndications:Di abetes Mellitus Type 2 Hyperglycemia (HCC) Inject 26 Units under the skin at bedtime. 30 mL 3 01/27/2022 03/16/2023 documented as of this encounter Plan of Treatment Upcoming Encounters Date Type Department Care Team (Latest Contact Info) Description 05/28/2023 10:00 AM ACCOUNT FINANCIAL MANAGER Appointment Department of Laboratory Medicine in [place] [address] [place] [address] Mónica Portillo APRN, C.N.P., M.S. [address] [place] [phone] 05/28/2023 10:10 AM ACCOUNT FINANCIAL MANAGER Appointment Department of Laboratory Medicine in [place] [address] [place] [phone] Mónica Portillo APRN, C.N.P., M.S. [address] [place] [phone] 05/29/2023 8:00 AM ACCOUNT FINANCIAL MANAGER Office Visit Department of Community Internal Medicine in [place] [address] [place] [address] Clover Delaney M.D. [address] [place] [phone] Discharge Disposition: Home or Self Care 05/29/2023 10:15 AM ACCOUNT FINANCIAL MANAGER Appointment Department of Radiology, [facility], in [place], [place] [address] [place] [phone] Mónica Portillo APRN, C.N.P., M.S. [address] [place] [phone] 05/29/2023 1:00 PM ACCOUNT FINANCIAL MANAGER Procedure visit Department of Urology in [place], [place] [address] [place] [address] Mónica Portillo APRN, C.N.P., M.S. [address] [place] [phone] 05/29/2023 3:00 PM ACCOUNT FINANCIAL MANAGER Education Division of Nephrology and Hypertension in [place], [place] [address] [place] [phone] Mónica Portillo APRN, C.N.P., M.S. [address] [place] [phone] Sandeep Galicia R.N. [address] [place] [phone] 05/29/2023 4:00 PM ACCOUNT FINANCIAL MANAGER Comprehensive Visit Division of Nephrology and Hypertension in [place], [place] [address] [place] [phone] Sera Casiano M.D., Ph.D. [address] [place] [phone] 06/15/2023 2:00 PM ACCOUNT FINANCIAL MANAGER Ancillary Procedure Department of Ophthalmology in [place], [place] [address] [place] [phone] Justin Bunch M.D. [address] [place] [phone] 06/15/2023 2:30 PM ACCOUNT FINANCIAL MANAGER Ancillary Procedure Department of Ophthalmology in [place], [place] [address] [place] [phone] Justin Bunch M.D. [address] [place] [phone] 06/15/2023 2:45 PM ACCOUNT FINANCIAL MANAGER Office Visit Department of Ophthalmology in [place], [place] [address] [place] [phone] Justin Bunch M.D. [address] [place] [phone] documented as of this encounter Procedures Procedure Name Priority Date/Time Associated Diagnosis Comments CBC WITH DIFFERENTIAL, B Routine 03/02/2023 12:41 PM ACCOUNT FINANCIAL MANAGER Anemia Of Chronic Renal Disease documented in this encounter Results * (ABNORMAL) CBC with Differential, Blood (03/02/2023 12:41 PM ACCOUNT FINANCIAL MANAGER) Hemoglobin 9.7(L) 13.2 - 16.6 g/dL 03/02/2023 1:10 PM ACCOUNT FINANCIAL MANAGER CNFL Hematocrit 29.4(L) 38.3 - 48.6 % 03/02/2023 1:10 PM ACCOUNT FINANCIAL MANAGER CNFL Erythrocytes 3.17(L) 4.35 - 5.65 x10(12)/L 03/02/2023 1:10 PM ACCOUNT FINANCIAL MANAGER CNFL MCV 92.7 78.2 - 97.9 fL 03/02/2023 1:10 PM ACCOUNT FINANCIAL MANAGER CNFL RBC Distrib Width 14.4 11.8 - 14.5 % 03/02/2023 1:10 PM ACCOUNT FINANCIAL MANAGER CNFL Platelet Count 180 135 - 317 x10(9)/L 03/02/2023 1:10 PM ACCOUNT FINANCIAL MANAGER CNFL Leukocytes 10.3(H) 3.4 - 9.6 x10(9)/L 03/02/2023 1:10 PM ACCOUNT FINANCIAL MANAGER CNFL Neutrophils 8.51(H) 1.56 - 6.45 x10(9)/L 03/02/2023 1:10 PM ACCOUNT FINANCIAL MANAGER CNFL Lymphocytes 0.87(L) 0.95 - 3.07 x10(9)/L 03/02/2023 1:10 PM ACCOUNT FINANCIAL MANAGER CNFL Monocytes 0.71 0.26 - 0.81 x10(9)/L 03/02/2023 1:10 PM ACCOUNT FINANCIAL MANAGER CNFL Eosinophils 0.14 0.03 - 0.48 x10(9)/L 03/02/2023 1:10 PM ACCOUNT FINANCIAL MANAGER CNFL Basophils <0.04 0.01 - 0.08 x10(9)/L 03/02/2023 1:10 PM ACCOUNT FINANCIAL MANAGER CNFL Blood (Blood, Venous) 03/02/2023 12:41 PM ACCOUNT FINANCIAL MANAGER 03/02/2023 12:55 PM ACCOUNT FINANCIAL MANAGER Mónica Portillo APRN, C.N.P., M.S. LAB BLOOD ADD-ON [facility] [address] [place] [address], [facility] CNFL [facility] in [address] [address] documented in this encounter Visit Diagnoses Diagnosis Anemia Of Chronic Renal Disease documented in this encounter Additional Health Concerns Assessment Noted Time PHQ-9 Depression Total Score: 4 06/06/19 23 2:04 PM ACCOUNT FINANCIAL MANAGER documented as of this encounter Care Teams Body Presser Relationship Specialty Start Date End Date Clover Delaney M.D. [address] [place] [phone] PCP - General Internal Medicine 11/23/17 documented as of this encounter
--- OUTSIDE RECORDS SUMMARY | 2023-05-05 12:00 | XMS_ITS | Encounter Summary ---
Author Name Unknown Organization [facility] Address [address] [place] [address] Care Team Providers Care Director Of Product Design Name Role Phone Clover Delaney M.D. Primary Care Provider +1- [phone] Reason for Visit * Reason Onset Date Comments Med Question 03/02/2023 Kamleshlj Encounter Details Date Type Department Care Team (Latest Contact Info) Description 03/02/2023 Clinical Communication Department of Infusion Therapy in [address] [phone] Elaina Rueda, RJosé LuisN. [address] [place] [phone] Med Question (Feraheme) Social History Tobacco Use Types Packs/Day Years [...] often do you attend chur ch or confucianism services? Never 07/28/2022 Do you belong to any clubs o r organizations such as temple groups, unions, fraternal or athletic groups, or [...] Answer Date Recorded PHQ-2 Score 0 06/06/2022 [facility] [place] [facility] Occupat ional Health - Occupational Stress [...] Sex Assigned at Male 05/13/2021 10:11 AM SR. PRICING ANALYST Gender Identity Male 11/02/2017 7:22 PM CDT Sexual Orientation Straight 11/02/2017 7: 22 PM CDT documented as of this encounter Plan of Treatment Upcoming Encounters Date Type Department Care Team (Latest Contact Info) Description 05/28/2023 10:00 AM SR. PRICING ANALYST Appointment Department of Laboratory Medicine in [place], [place] [address] [place] [address] Mónica Portillo APRN, C.N.P., M.S. [address] [place] [phone] 05/28/2023 10:10 AM SR. PRICING ANALYST Appointment Department of Laboratory Medicine in [place], [place] [address] [place] [address] Mónica Portillo APRN, C.N.P., M.S. [address] [place] [phone] 05/29/2023 8:00 AM SR. PRICING ANALYST Office Visit Department of Community Internal Medicine in [place], [place] [address] [place] [phone] Clover Delaney M.D. [address] [place] [phone] Discharge Disposition: Home or Self Care 05/29/2023 10:15 AM SR. PRICING ANALYST Appointment Department of Radiology, [facility], in [place], [place] [address] [place] [phone] Mónica Portillo APRN, C.N.P., M.S. [address] [place] [phone] 05/29/2023 1:00 PM SR. PRICING ANALYST Procedure visit Department of Urology in [place], [place] [address] [place] [address] Mónica Portillo APRN, C.N.P., M.S. [address] [place] [phone] 05/29/2023 3:00 PM SR. PRICING ANALYST Education Division of Nephrology and Hypertension in [place], [place] [address] [place] [phone] Mónica Portillo APRN, DrewNJosé LuisP., M.S. [address] [place] [phone] Sandeep Galicia R.N. [address] [place] [phone] 05/29/2023 4:00 PM SR. PRICING ANALYST Comprehensive Visit Division of Nephrology and Hypertension in [place], [place] [address] [place] [phone] Sera Casiano M.D., Ph.D. [address] [place] [phone] 06/15/2023 2:00 PM SR. PRICING ANALYST Ancillary Procedure Department of Ophthalmology in [place], [place] [address] [place] [phone] Justin Bunch M.D. [address] [place] [phone] 06/15/2023 2:30 PM SR. PRICING ANALYST Ancillary Procedure Department of Ophthalmology in [address] [phone] Justin Bunch M.D. [address] [place] [phone] 06/15/2023 2:45 PM SR. PRICING ANALYST Office Visit Department of Ophthalmology in [address] [phone] Justin Bunch M.D. [address] [place] [phone] documented as of this encounter Visit Diagnoses Not on filedocumented in this encounter Additional Health Concerns Assessment Noted Time PHQ-9 Depression Total Score: 4 06/06/19 23 2:04 PM SR. PRICING ANALYST documented as of this encounter Care Teams Director Of Product Design Relationship Specialty Start Date End Date Clover Delaney M.D. NPKatlin: [phone] [address] [place] [address] PCP - General Internal Medicine 11/23/17 documented as of this encounter
--- OUTSIDE RECORDS SUMMARY | 2023-05-05 12:00 | XMS_ITS | Encounter Summary ---
Author Name Unknown Organization [facility] Address [address] [place] [address] Care Team Providers Care Telephone Switchboard Operator Name Role Phone Clover Delaney M.D. Primary Care Provider [phone]- [phone] Encounter Details Date Type Department Care Team (Latest Contact Info) Description 02/26/2023 8:59 AM CDT - 02/26/2023 11:59 PM CDT Hospital Encounter Department of Laboratory Medicine in [address] [place] [phone] Mónica Portillo, TRIXIE, C.N.P., M.S. 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 No 07/28/2022 Depression Answer Date [...] Sex Assigned at Male 05/13/2021 10:11 AM LAW PROFESSOR Gender Identity Male 11/02/2017 7:22 PM CDT [...] Machine See Instructions, fax to patient at [phone], 1 each 0 01/17/2014 MULTIVITAMIN ORAL Daily [...] inject insulin daily 100 each 3 03/31/2022 insulin glargine (Lantus Solostar U-100 Insulin) 100 unit/mL (3 mL) injectionIndications:Di abetes Mellitus Type 2 Hyperglycemia (HCC) Inject 26 Units under the skin at bedtime. 30 mL 3 01/27/2022 03/16/2023 documented as of this encounter Plan of Treatment Upcoming Encounters Date Type Department Care Team (Latest Contact Info) Description 05/28/2023 10:00 AM LAW PROFESSOR Appointment Department of Laboratory Medicine in [place], [place] [address] [place] [address] Mónica Portillo APRN, C.N.P., M.S. [address] [place] [phone] 05/28/2023 10:10 AM LAW PROFESSOR Appointment Department of Laboratory Medicine in [place] [address] [place] [address] Mónica Portillo APRN, C.N.P., M.S. [address] [place] [phone] 05/29/2023 8:00 AM LAW PROFESSOR Office Visit Department of Community Internal Medicine in [place] [address] [place] [address] Clover Delaney M.D. [address] [place] [phone] Discharge Disposition: Home or Self Care 05/29/2023 10:15 AM LAW PROFESSOR Appointment Department of Radiology, [facility] in [place], [place] [address] [place] [phone] Mónica Portillo APRN, C.N.P., M.S. [address] [place] [phone] 05/29/2023 1:00 PM LAW PROFESSOR Procedure visit Department of Urology in [place], [place] [address] [place] [phone] Mónica Portillo APRN, C.N.P., M.S. [address] [place] [phone] 05/29/2023 3:00 PM LAW PROFESSOR Education Division of Nephrology and Hypertension in [place], [place] [address] [place] [phone] Mónica Portillo APRN, C.N.P., M.S. [address] [place] [phone] Sandeep Galicia R.N. [address] [place] [phone] 05/29/2023 4:00 PM LAW PROFESSOR Comprehensive Visit Division of Nephrology and Hypertension in [place], [place] [address] [place] [phone] Sera Casiano M.D., Ph.D. [address] [place] [phone] 06/15/2023 2:00 PM LAW PROFESSOR Ancillary Procedure Department of Ophthalmology in [place], [place] [address] [place] [phone] Justin Bunch M.D. [address] [place] [phone] 06/15/2023 2:30 PM LAW PROFESSOR Ancillary Procedure Department of Ophthalmology in [place], [place] [address] [place] [phone] Justin Bunch M.D. [address] [place] [phone] 06/15/2023 2:45 PM LAW PROFESSOR Office Visit Department of Ophthalmology in [address] [phone] Justin Bunch M.D. [address] [place] [phone] documented as of this encounter Procedures Procedure Name Priority Date/Time Associated Diagnosis Comments RENAL FUNCTION PANEL, S Routine 02/26/2023 9:14 AM CDT Chronic [...] Retinopathy Without Macular Edema Bilateral (HCC) Proteinuria PARATHYROID HORMONE (PTH), S Routine 02/26/2023 9:14 [...] Retinopathy Without Macular Edema Bilateral (HCC) Proteinuria documented in this encounter Results * (ABNORMAL) Parathyroid Hormone (PTH) (02/26/2023 9:14 AM CDT) Parathyroid Hormone (PTH), S 140(H) 15 - 65 pg/mL 02/26/2023 12:18 PM CDT [facility] Comment: Biotin has been identified by the geochemist as a potential interfering substance. Higher concentrations [...] M.S. LAB BLOOD ADD-ON [facility] [address] [place] [address], [facility] R[facility] [place] [address] * (ABNORMAL) Iron and Total Iron-Binding Capacity [...] M.S. LAB BLOOD ADD-ON [facility] [address] [place] [address], [facility] [place] in [address] [phone] * (ABNORMAL) Ferritin (02/26/2023 9:14 AM CDT) Ferritin, S 533(H) 31 - 409 mcg/L 02/26/2023 12:18 PM CDT [facility] Comment: Biotin has been identified by the geochemist as a potential interfering substance. Higher concentrations [...] M.S. LAB BLOOD ADD-ON [facility] [address] [place] [address], [facility] [place] [facility] [place] [address] [place] [address] * (ABNORMAL) Renal Function Panel (02/26/2023 9:14 AM CDT) Potassium, P 4.2 3.6 - 5.2 mmol/L 02/26/2023 12:05 PM CDT [facility] Sodium, P 142 135 - 145 mmol/L 02/26/2023 12:05 PM CDT [facility] Chloride, P 107 98 - 107 mmol/L 02/26/2023 12:05 PM CDT [facility] Bicarbonate, P 22 22 - 29 mmol/L 02/26/2023 12:05 PM CDT [facility] Anion Gap, P 13 7 - 15 02/26/2023 12:05 PM CDT [facility] BUN (Blood Urea Nitrogen), P 71(H) 8 - 24 mg/dL 02/26/2023 12:05 PM CDT [facility] Creatinine 4.02(H) 0.74 - 1.35 mg/dL 02/26/2023 12:05 PM CDT [facility] Estimated GFR (eGFR) <15(L) >=60 mL/min/BSA 02/26/2023 12:05 PM CDT [facility] Comment: Estimated GFR calculated using the 2020 CKD_EPI creatinine equation. Calcium, Total, P 8.6(L) 8.8 - 10.2 mg/dL 02/26/2023 12:05 PM CDT [facility] Glucose, P 100 70 - 140 mg/dL 02/26/2023 12:05 PM CDT [facility] Albumin, P 3.6 3.5 - 5.0 g/dL 02/26/2023 12:05 PM CDT [facility] Phosphorus (Inorganic), P 5.6(H) 2.5 - 4.5 mg/dL 02/26/2023 12:05 PM CDT [facility] Blood (Blood, Venous) 02/26/2023 9:14 AM CDT 02/26/2023 11:45 AM CDT Mónica Portillo APRN, C.N.P., M.S. LAB BLOOD ADD-ON [facility] [address] [facility] [address], [facility] RDWG [facility] [place] [facility] [place] [address] [place] [address] * (ABNORMAL) CBC without Differential (02/26/2023 9:14 AM CDT) [facility] Signature Hemoglobin 9.2(L) 13.2 - 16.6 g/dL 02/26/2023 11:58 AM CDT [facility] Hematocrit 29.2(L) 38.3 - 48.6 % 02/26/2023 11:58 AM CDT [facility] Erythrocytes 3.07(L) 4.35 - 5.65 x10(12)/L 02/26/2023 11:58 AM CDT [facility] MCV 95.1 78.2 - 97.9 fL 02/26/2023 11:58 AM CDT [facility] RBC Distrib Width 14.4 11.8 - 14.5 % 02/26/2023 11:58 AM CDT [facility] Platelet Count 189 135 - 317 x10(9)/L 02/26/2023 11:58 AM CDT [facility] Leukocytes 8.2 3.4 - 9.6 x10(9)/L 02/26/2023 11:58 AM CDT [facility] Blood (Blood, Venous) 02/26/2023 9:14 AM CDT 02/26/2023 11:45 AM CDT Mónica Portillo APRN, C.N.P., M.S. 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 [address] [place] [phone] PCP - General Internal Medicine 11/23/17 documented as of this encounter
--- OUTSIDE RECORDS SUMMARY | 2023-05-05 12:00 | XMS_ITS | Encounter Summary ---
Author Name Unknown Organization [facility] Address [address] [place] [address] Care Team Providers Care Curtain Stitcher Name Role Phone Clover Delaney M.D. Primary Care Provider +1- [phone] Reason for Visit * Reason Comments Patient Education Encounter Details Date Type Department Care Team (Latest Contact Info) Description 03/03/2023 11:00 AM COMMISSARY SUPERINTENDENT Telemedicine Department of Patient Education in [place], [place] [address] [place] [address] Mónica Portillo, TRIXIE, C.N.P., M.S. 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 Never 07/28/2022 Do you belong to any clubs o r organizations such as hoahaoism groups, unions, fraternal or athletic groups, or [...] Answer Date Recorded PHQ-2 Score 0 06/06/2022 [facility] of Occupat ional Health - Occupational Stress [...] Sex Assigned at Male 05/13/2021 10:11 AM COMMISSARY SUPERINTENDENT Gender Identity Male 11/02/2017 7:22 PM CDT Sexual Orientation Straight 11/02/2017 7: 22 PM CDT documented as of this encounter Plan of Treatment Upcoming Encounters Date Type Department Care Team (Latest Contact Info) Description 05/28/2023 10:00 AM COMMISSARY SUPERINTENDENT Appointment Department of Laboratory Medicine in [place] [address] [place] [address] Mónica Portillo APRN, C.N.P., M.S. [address] [place] [phone] 05/28/2023 10:10 AM COMMISSARY SUPERINTENDENT Appointment Department of Laboratory Medicine in [place] [address] [place] [address] Mónica Portillo APRN, C.N.P., M.S. [address] [place] [phone] 05/29/2023 8:00 AM COMMISSARY SUPERINTENDENT Office Visit Department of Community Internal Medicine in [place] [address] [place] [phone] Clover Delaney M.D. [address] [place] [phone] Discharge Disposition: Home or Self Care 05/29/2023 10:15 AM COMMISSARY SUPERINTENDENT Appointment Department of Radiology, [facility], in [place], [place] [address] [place] [phone] Mónica Portillo APRN, C.N.P., M.S. [address] [place] [phone] 05/29/2023 1:00 PM COMMISSARY SUPERINTENDENT Procedure visit Department of Urology in [place], [place] [address] [place] [phone] Mónica Portillo APRN, C.N.P., M.S. [address] [place] [phone] 05/29/2023 3:00 PM COMMISSARY SUPERINTENDENT Education Division of Nephrology and Hypertension in [place], [place] [address] [place] [phone] Mónica Portillo APRN, C.N.P., M.S. [address] [place] [phone] Sandeep Galicia R.N. [address] [place] [phone] 05/29/2023 4:00 PM COMMISSARY SUPERINTENDENT Comprehensive Visit Division of Nephrology and Hypertension in [place], [place] [address] [place] [phone] Sera Casiano M.D., Ph.D. [address] [place] [phone] 06/15/2023 2:00 PM COMMISSARY SUPERINTENDENT Ancillary Procedure Department of Ophthalmology in [place], [place] [address] [place] [phone] Justin Bunch M.D. [address] [place] [phone] 06/15/2023 2:30 PM COMMISSARY SUPERINTENDENT Ancillary Procedure Department of Ophthalmology in [place], [place] [address] [place] [phone] Justin Bunch M.D. [address] [place] [phone] 06/15/2023 2:45 PM COMMISSARY SUPERINTENDENT Office Visit Department of Ophthalmology in [place], [place] [address] [place] [phone] Justin Bunch M.D. 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 [address] [place] [phone] PCP - General Internal Medicine 11/23/17 documented as of this encounter
--- OUTSIDE RECORDS SUMMARY | 2023-05-05 12:00 | XMS_ITS | Encounter Summary ---
Author Name Unknown Organization [facility] Address [address] [place] [address] Care Team Providers Care Carbide Operator Name Role Phone Clover Delaney M.D. 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 [address] [place] [address] Rst Oph Ellen [address] [place] [address] Referral ID Status Reason Start Date Expiration Date V isits Requested Visits Authorized [id number] Authorized 03/06/2023 03/05/2024 3 3 Encounter Details Date Type Department Care Team (Latest Contact Info) Description 03/06/2023 1:45 PM BIOCHEMICAL DEVELOPMENT ENGINEER Procedure visit Department of Ophthalmology in [place], [place] [address] [place] [phone] Jon Juarez M.D. 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 No 07/28/2022 Depression Answer Date [...] Sex Assigned at Male 05/13/2021 10:11 AM BIOCHEMICAL DEVELOPMENT ENGINEER Gender Identity Male 11/02/2017 7:22 PM CDT Sexual Orientation Straight 11/02/2017 7: 22 PM CDT documented as of this encounter Plan of Treatment Upcoming Encounters Date Type Department Care Team (Latest Contact Info) Description 05/28/2023 10:00 AM BIOCHEMICAL DEVELOPMENT ENGINEER Appointment Department of Laboratory Medicine in [place], [place] [address] [place] [address] [phone] Mónica Portillo APRN, C.N.P., M.S. [address] [place] [phone] 05/28/2023 10:10 AM BIOCHEMICAL DEVELOPMENT ENGINEER Appointment Department of Laboratory Medicine in [place], [place] [address] [place] [phone] Mónica Portillo APRN, C.N.P., M.S. [address] [place] [phone] 05/29/2023 8:00 AM BIOCHEMICAL DEVELOPMENT ENGINEER Office Visit Department of Community Internal Medicine in [place], [place] [address] [place] [address] [phone] Clover Delaney M.D. [address] [place] [phone] Discharge Disposition: Home or Self Care 05/29/2023 10:15 AM BIOCHEMICAL DEVELOPMENT ENGINEER Appointment Department of Radiology, [facility], in [place], [place] [address] [place] [address] Mónica Portillo APRN, [place]assandra.N.P., M.S. [address] [place] [phone] 05/29/2023 1:00 PM BIOCHEMICAL DEVELOPMENT ENGINEER Procedure visit Department of Urology in [place], [place] [address] [place] [phone] Mónica Portillo APRN, C.N.P., M.S. [address] [place] [phone] 05/29/2023 3:00 PM BIOCHEMICAL DEVELOPMENT ENGINEER Education Division of Nephrology and Hypertension in [place], [place] [address] [place] [phone] Mónica Portillo APRN, C.N.P., M.S. [address] [place] [phone] Sandeep Galicia R.N. [address] [place] [phone] 05/29/2023 4:00 PM BIOCHEMICAL DEVELOPMENT ENGINEER Comprehensive Visit Division of Nephrology and Hypertension in [place], [place] [address] [place] [phone] Sera Casiano M.D., Ph.D. [address] [place] [phone] 06/15/2023 2:00 PM BIOCHEMICAL DEVELOPMENT ENGINEER Ancillary Procedure Department of Ophthalmology in [place], [place] [address] [place] [phone] Justin Bunch M.D. [address] [place] [phone] 06/15/2023 2:30 PM BIOCHEMICAL DEVELOPMENT ENGINEER Ancillary Procedure Department of Ophthalmology in [place], [place] [address] [place] [address] Justin Bunch M.D. [address] [place] [address] 06/15/2023 2:45 PM BIOCHEMICAL DEVELOPMENT ENGINEER Office Visit Department of Ophthalmology in [place], [place] [address] [place] [address] Justin Bunch M.D. 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 [address] [place] [phone] PCP - General Internal Medicine 11/23/17 documented as of this encounter
--- OUTSIDE RECORDS SUMMARY | 2023-05-05 12:00 | XMS_ITS | Encounter Summary ---
Author Name Unknown Organization [facility] Address [address] [place] [address] Care Team Providers Care Service Department Manager Name Role Phone Clover Delaney M.D. 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 [address] [place] [address] Rst Oph Ellen [address] [place] [address] Referral ID Status Reason Start Date Expiration Date V isits Requested Visits Authorized [id number] Authorized 03/06/2023 03/05/2024 3 3 Encounter Details Date Type Department Care Team (Latest Contact Info) Description 03/06/2023 2:40 PM HOSPITAL STAFF PHARMACIST Ancillary Procedure Department of Ophthalmology in [place], [place] [address] [place] [phone] Jon Juarez M.D. [address] [place] [address] Diabetes Mellitus Type 2 With [...] often do you attend chur ch or episcopalian services? Never 07/28/2022 Do you belong to any clubs o r organizations such as mandaeism groups, unions, fraternal or athletic groups, or [...] Date Recorded PHQ-2 Score 0 06/06/2022 [facility] - Occupational Stress Questionnaire [...] Assigned at Male 05/13/2021 10:11 AM HOSPITAL STAFF PHARMACIST Gender Identity Male 11/02/2017 7:22 PM CDT Sexual Orientation Straight 11/02/2017 7: 22 PM CDT documented as of this encounter Plan of Treatment Upcoming Encounters Date Type Department Care Team (Latest Contact Info) Description 05/28/2023 10:00 AM HOSPITAL STAFF PHARMACIST Appointment Department of Laboratory Medicine in [place], [place] [address] [place] [phone] Mónica Portillo APRN, C.N.P., M.S. [address] [place] [phone] 05/28/2023 10:10 AM HOSPITAL STAFF PHARMACIST Appointment Department of Laboratory Medicine in [place], [place] [address] [place] [address] [phone] Mónica Portillo APRN, C.N.P., M.S. [address] [place] [phone] 05/29/2023 8:00 AM HOSPITAL STAFF PHARMACIST Office Visit Department of Community Internal Medicine in [place], [place] [address] [place] [address] [phone] Clover Delaney M.D. [address] [place] [phone] Discharge Disposition: Home or Self Care 05/29/2023 10:15 AM HOSPITAL STAFF PHARMACIST Appointment Department of Radiology, [facility], in [place], [place] [address] [place] [address] Mónica Portillo APRN, Kassandra.N.P., M.S. [address] [place] [phone] 05/29/2023 1:00 PM HOSPITAL STAFF PHARMACIST Procedure visit Department of Urology in [place], [place] [address] [place] [phone] Mónica Portillo APRN, C.N.P., M.S. [address] [place] [phone] 05/29/2023 3:00 PM HOSPITAL STAFF PHARMACIST Education Division of Nephrology and Hypertension in [place], [place] [address] [place] [phone] Mónica Portillo APRN, C.N.P., M.S. [address] [place] [phone] Sandeep Galicia R.N. [address] [place] [phone] 05/29/2023 4:00 PM HOSPITAL STAFF PHARMACIST Comprehensive Visit Division of Nephrology and Hypertension in [place], [place] [address] [place] [phone] Sera Casiano M.D., Ph.D. [address] [place] [phone] 06/15/2023 2:00 PM HOSPITAL STAFF PHARMACIST Ancillary Procedure Department of Ophthalmology in [place], [place] [address] [place] [phone] Justin Bunch M.D. [address] [place] [phone] 06/15/2023 2:30 PM HOSPITAL STAFF PHARMACIST Ancillary Procedure Department of Ophthalmology in [place], [place] [address] [place] [address] Justin Bunch M.D. [address] [place] [address] 06/15/2023 2:45 PM HOSPITAL STAFF PHARMACIST Office Visit Department of Ophthalmology in [place], [place] [address] [place] [address] Justin Bunch M.D. 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 [address] [place] [phone] PCP - General Internal Medicine 11/23/17 documented as of this encounter
--- OUTSIDE RECORDS SUMMARY | 2023-05-05 12:01 | XMS_ITS | Encounter Summary ---
Author Name Unknown Organization [facility] Address [address] [place] [address] Care Team Providers Care Roulette Dealer Name Role Phone Clover Delaney M.D. Primary Care Provider [phone] Reason for Visit * Reason Onset Date Comments phone call 01/15/2023 Encounter Details Date Type Department Care Team (Late st Contact Info) Description 01/15/2023 Clinical Communication Division of Nephrology and Hypertension, [facility], in [place], [place] [address] [place] [phone] Mónica Portillo, TRIXIE, C.N.P., M.S. [address] [place] [phone] phone call Social History Tobacco Use Types Packs/Day Years [...] often do you attend chur ch or oriental orthodox services? Never 07/28/2022 Do you belong to any clubs o r organizations such as mormon groups, unions, fraternal or athletic groups, or [...] Answer Date Recorded PHQ-2 Score 0 06/06/2022 [facility] Occupat ional Health - Occupational Stress [...] place to sleep or slept in a senior living (including now)? No 07/28/2022 Depression Answer Date [...] Sex Assigned at Male 05/13/2021 10:11 AM CAT SCAN TECH Gender Identity Male 11/02/2017 7:22 PM CDT Sexual Orientation Straight 11/02/2017 7: 22 PM CDT documented as of this encounter Plan of Treatment Upcoming Encounters Date Type Department Care Team (Latest Contact Info) Description 05/28/2023 10:00 AM CAT SCAN TECH Appointment Department of Laboratory Medicine in [place] [address] [place] [address] [phone] Mónica Portillo APRN, C.N.P., M.S. [address] [place] [phone] 05/28/2023 10:10 AM CAT SCAN TECH Appointment Department of Laboratory Medicine in [place], [place] [address] [place] [address] [phone] Mónica Portillo APRN, C.N.P., M.S. [address] [place] [phone] 05/29/2023 8:00 AM CAT SCAN TECH Office Visit Department of Community Internal Medicine in [place] [address] [place] [phone] Clover Delaney M.D. [address] [place] [phone] Discharge Disposition: Home or Self Care 05/29/2023 10:15 AM CAT SCAN TECH Appointment Department of Radiology, [facility], in [place], [place] [address] [place] [phone] Mónica Portillo APRN, C.N.P., M.S. [address] [place] [phone] 05/29/2023 1:00 PM CAT SCAN TECH Procedure visit Department of Urology in [place], [place] [address] [place] [phone] Mónica Portillo APRN, Kassandra.N.P., M.S. [address] [place] [phone] 05/29/2023 3:00 PM CAT SCAN TECH Education Division of Nephrology and Hypertension in [place], [place] [address] [place] [phone] Mónica Portillo APRN, C.N.P., M.S. [address] [place] [phone] Sandeep Galicia R.N. [address] [place] [phone] 05/29/2023 4:00 PM CAT SCAN TECH Comprehensive Visit Division of Nephrology and Hypertension in [place], [place] [address] [place] [phone] Sera Casiano M.D., Ph.D. [address] [place] [phone] 06/15/2023 2:00 PM CAT SCAN TECH Ancillary Procedure Department of Ophthalmology in [place], [place] [address] [place] [phone] Justin Bunch M.D. [address] [place] [phone] 06/15/2023 2:30 PM CAT SCAN TECH Ancillary Procedure Department of Ophthalmology in [address] [phone] Justin Bunch M.D. [address] [place] [phone] 06/15/2023 2:45 PM CAT SCAN TECH Office Visit Department of Ophthalmology in [address] [phone] Justin Bunch M.D. [address] [place] [phone] documented as of this encounter Visit Diagnoses Not on filedocumented in this encounter Additional Health Concerns Assessment Noted Time PHQ-9 Depression Total Score: 4 06/06/19 23 2:04 PM CAT SCAN TECH documented as of this encounter Care Teams Roulette Dealer Relationship Specialty Start Date End Date Clover Delaney M.D. [address] [place] [phone] PCP - General Internal Medicine 11/23/17 documented as of this encounter
--- OUTSIDE RECORDS SUMMARY | 2023-05-05 12:01 | XMS_ITS | Encounter Summary ---
Author Name Unknown Organization [facility] Address [address] [place] [address] Care Team Providers Care Sampler Ovens Name Role Phone Clover Delaney M.D. Primary Care Provider +1- [phone] Reason for Visit * Reason Comments Injections aranesp * Episode Based Medications (Routine) - Pending Review Specialty Diagnoses / Procedures Referred By Yenny t Referred To Contact Diagnoses Malignant Neoplasm Of Transverse Colon (HCC) Anemia Of Chronic Renal Disease Procedures CO DARBEPOETIN KERRI, NON-ESRD CO DARBEPOETIN KERRI, ESRD USE Mónica Portillo APRN, C.N.P., M.S. [address] [place] [phone] [facility] Region Referral ID Status Reason Start Date Expiration Date V isits Requested Visits Authorized [id number] Pending Review 09/03/2022 09/03/2023 12 12 Encounter Details Date Type Department Care Team (Late st Contact Info) Description 01/06/2023 10:30 AM CDT Infusion Department of Infusion Therapy in [address] [phone] Mónica Portillo APRN, C.N.P., M.S. [address] [place] [phone] Anemia Of Chronic Renal Disease (Primary Dx) [...] often do you attend chur ch or orthodox services? Never 07/28/2022 Do you belong [...] Answer Date Recorded PHQ-2 Score 0 06/06/2022 [facility] of Occupat ional Health - [...] place to sleep or slept in a prison (including now)? No 07/28/2022 Depression Answer Date [...] Sex Assigned at Male 05/13/2021 10:11 AM CMS EXPERT Gender Identity Male 11/02/2017 7:22 PM CDT Sexual Orientation Straight 11/02/2017 7: 22 PM CDT documented as of this encounter Last Filed Vital Signs Vital Sign Reading Time Taken Comments Blood Pressure 171/74 01/06/2023 11:40 AM CDT Pulse 58 01/06/2023 11:40 AM CDT Temperature 36 ??C (96.8 ??F) 01/06/2023 11:40 AM CDT Respiratory Rate 18 01/06/2023 11:40 AM CDT Oxygen Saturation 98% 01/06/2023 11:40 AM CDT Inhaled Oxygen Concentration - - Weight - - Height - - Body Mass Index - - documented in this encounter Plan of Treatment Upcoming Encounters Date Type Department Care Team (Latest Contact Info) Description 05/28/2023 10:00 AM CMS EXPERT Appointment Department of Laboratory Medicine in [place] [address] [place] [address] Mónica Portillo APRN, C.N.P., M.S. [address] [place] [phone] 05/28/2023 10:10 AM CMS EXPERT Appointment Department of Laboratory Medicine in [place], [place] [address] [place] [address] Mónica Portillo APRN, C.N.P., M.S. [address] [place] [phone] 05/29/2023 8:00 AM CMS EXPERT Office Visit Department of Community Internal Medicine in [place], [place] [address] [place] [address] Clover Delaney M.D. [address] [place] [phone] Discharge Disposition: Home or Self Care 05/29/2023 10:15 AM CMS EXPERT Appointment Department of Radiology, [facility], in [place], [place] [address] [place] [address] Mónica Portillo APRN, C.N.P., M.S. [address] [place] [phone] 05/29/2023 1:00 PM CMS EXPERT Procedure visit Department of Urology in [place], [place] [address] [place] [phone] Mónica Portillo APRN, C.N.P., M.S. [address] [place] [phone] 05/29/2023 3:00 PM CMS EXPERT Education Division of Nephrology and Hypertension in [place], [place] [address] [place] [phone] Mónica Portillo APRN, C.N.P., M.S. [address] [place] [phone] Sandeep Galicia R.N. [address] [place] [phone] 05/29/2023 4:00 PM CMS EXPERT Comprehensive Visit Division of Nephrology and Hypertension in [place], [place] [address] [place] [phone] Sera Casiano M.D., Ph.D. [address] [place] [phone] 06/15/2023 2:00 PM CMS EXPERT Ancillary Procedure Department of Ophthalmology in [place], [place] [address] [place] [phone] Justin Bunch M.D. [address] [place] [phone] 06/15/2023 2:30 PM CMS EXPERT Ancillary Procedure Department of Ophthalmology in [place], [place] [address] [place] [phone] Justin Bunch M.D. [address] [place] [phone] 06/15/2023 2:45 PM CMS EXPERT Office Visit Department of Ophthalmology in [place], [place] [address] [place] [phone] Justin Bunch M.D. 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 [address] [place] [phone] PCP - General Internal Medicine 11/23/17 documented as of this encounter
--- OUTSIDE RECORDS SUMMARY | 2023-05-05 12:01 | XMS_ITS | Encounter Summary ---
Author Name Unknown Organization [facility] Address [address] [place] [address] Care Team Providers Care Lottery Clerk Name Role Phone Clover Delaney M.D. Primary Care Provider [phone]- [phone] Reason for Visit * Reason Comments Med Refill Encounter Details Date Type Department Care Team (Late st Contact Info) Description 01/12/2023 Refill Division of Nephrology and Hypertension, [facility], in [place], [place] [address] [place] [phone] Mónica Portillo, TRIXIE, C.N.P., M.S. [address] [place] [phone] Med Refill Social History Tobacco Use Types [...] often do you attend chur ch or caodaism services? Never 07/28/2022 Do you belong to any clubs o r organizations such as mosque groups, unions, fraternal or athletic groups, or [...] Answer Date Recorded PHQ-2 Score 0 06/06/2022 [facility] of Occupat ional Health - Occupational [...] Sex Assigned at Male 05/13/2021 10:11 AM BURN OUT SCARFING OPERATOR Gender Identity Male 11/02/2017 7:22 PM CDT Sexual Orientation Straight 11/02/2017 7: 22 PM CDT documented as of this encounter Miscellaneous Notes * Telephone Encounter - Cira García M.S.N., R.N. - 01/15/2023 3:43 PM CDT SUBJECTIVE CHIEF COMPLAINT / REASON FOR CALL Med Refill ASSESSMENT Mr. Patel reports that he did try torsemide 20 mg daily for about 1 month and found that his lower extremities were edematous and increase the torsemide dose independently to 30 mg daily. 30 mg daily did help alleviate the lower extremity swelling. Patient reports that systolic blood pressures are ranging 130-150. Mr. Patel has also started working with a personal banking officer and having the increased dose of torsemide at 30 mg is beneficial to exercise. PLAN Disposition/Recommendation: notified provider and awaiting recommendations. Will transfer message to Mónica Portillo APRN Information/Education: patient/caller able to teach back. Caller agreeable to plan of care: yes. The following references were used: nursing clinical judgement. documented in this encounter Plan of Treatment Upcoming Encounters Date Type Department Care Team (Latest Contact Info) Description 05/28/2023 10:00 AM BURN OUT SCARFING OPERATOR Appointment Department of Laboratory Medicine in [place] [address] [place] [address] Mónica Portillo APRN, C.N.P., M.S. [address] [place] [phone] 05/28/2023 10:10 AM BURN OUT SCARFING OPERATOR Appointment Department of Laboratory Medicine in [place], [place] [address] [address] Mónica Portillo APRN, C.N.P., M.S. [address] [place] [phone] 05/29/2023 8:00 AM BURN OUT SCARFING OPERATOR Office Visit Department of Community Internal Medicine in [place], [place] [address] Clover Delaney M.D. [address] [place] [phone] Discharge Disposition: Home or Self Care 05/29/2023 10:15 AM BURN OUT SCARFING OPERATOR Appointment Department of Radiology, [facility], in [place], [place] [address] [place] [phone] Mónica Portillo APRN, C.N.P., M.S. [address] [place] [phone] 05/29/2023 1:00 PM BURN OUT SCARFING OPERATOR Procedure visit Department of Urology in [place], [place] [address] [place] [phone] Mónica Portillo APRN, C.N.P., M.S. [address] [place] [phone] 05/29/2023 3:00 PM BURN OUT SCARFING OPERATOR Education Division of Nephrology and Hypertension in [place], [place] [address] [place] [phone] Mónica Portillo APRN, C.N.P., M.S. [address] [place] [phone] Sandeep Galicia R.N. [address] [place] [phone] 05/29/2023 4:00 PM BURN OUT SCARFING OPERATOR Comprehensive Visit Division of Nephrology and Hypertension in [place], [place] [address] [place] [phone] Sera Casiano M.D., Ph.D. [address] [place] [phone] 06/15/2023 2:00 PM BURN OUT SCARFING OPERATOR Ancillary Procedure Department of Ophthalmology in [place], [place] [address] [place] [address] Justin Bunch M.D. [address] [place] [phone] 06/15/2023 2:30 PM BURN OUT SCARFING OPERATOR Ancillary Procedure Department of Ophthalmology in [place], [place] [address] [place] [phone] Justin Bunch M.D. [address] [place] [phone] 06/15/2023 2:45 PM BURN OUT SCARFING OPERATOR Office Visit Department of Ophthalmology in [place], [place] [address] [place] [phone] Justin Bunch M.D. [address] [place] [phone] documented as of this encounter Visit Diagnoses Not on filedocumented in this encounter Additional Health Concerns Assessment Noted Time PHQ-9 Depression Total Score: 4 06/06/19 23 2:04 PM BURN OUT SCARFING OPERATOR documented as of this encounter Care Teams Lottery Clerk Relationship Specialty Start Date End Date Clover Delaney M.D. [address] [place] [phone] PCP - General Internal Medicine 11/23/17 documented as of this encounter
--- OUTSIDE RECORDS SUMMARY | 2023-05-05 12:01 | XMS_ITS | Encounter Summary ---
Author Name Unknown Organization [facility] Address [address] [place] [address] Care Team Providers Care Clinical Documentation Specialist Name Role Phone Clover Delaney M.D. Primary Care Provider [phone]- [phone] Reason for Visit * Reason Comments Med Refill Encounter Details Date Type Department Care Team (Late st Contact Info) Description 02/05/2023 Refill Department of Ophthalmology in [place], [place] [address] [place] [phone] Jon Juarez M.D. [address] [place] [phone] Med Refill Social History Tobacco Use Types [...] often do you attend chur ch or yazidism services? Never 07/28/2022 Do you belong to any clubs o r organizations such as anabaptism groups, unions, fraternal or athletic groups, or [...] Answer Date Recorded PHQ-2 Score 0 06/06/2022 [facility] of Occupat ional Health - Occupational Stress [...] Sex Assigned at Male 05/13/2021 10:11 AM ENVIRONMENTAL AIR SPECIALIST Gender Identity Male 11/02/2017 7:22 PM CDT Sexual Orientation Straight 11/02/2017 7: 22 PM CDT documented as of this encounter Plan of Treatment Upcoming Encounters Date Type Department Care Team (Latest Contact Info) Description 05/28/2023 10:00 AM ENVIRONMENTAL AIR SPECIALIST Appointment Department of Laboratory Medicine in [place] [address] [place] [address] Mónica Portillo APRN, Kassandra.N.P., M.S. [address] [place] [phone] 05/28/2023 10:10 AM ENVIRONMENTAL AIR SPECIALIST Appointment Department of Laboratory Medicine in [place] [address] [place] [address] Mónica Portillo APRN, Kassandra.N.P., M.S. [address] [place] [phone] 05/29/2023 8:00 AM ENVIRONMENTAL AIR SPECIALIST Office Visit Department of Community Internal Medicine in [place] [address] [place] [phone] Clover Delaney M.D. [address] [place] [phone] Discharge Disposition: Home or Self Care 05/29/2023 10:15 AM ENVIRONMENTAL AIR SPECIALIST Appointment Department of Radiology, [facility], in [place], [place] [address] [place] [phone] Mónica Portillo APRN, Kassandra.N.P., M.S. [address] [place] [phone] 05/29/2023 1:00 PM ENVIRONMENTAL AIR SPECIALIST Procedure visit Department of Urology in [place], [place] [address] [place] [phone] Mónica Portilol APRN, Kassandra.N.P., M.S. [address] [place] [phone] 05/29/2023 3:00 PM ENVIRONMENTAL AIR SPECIALIST Education Division of Nephrology and Hypertension in [place], [place] [address] [place] [phone] Mónica Portillo APRN, C.N.P., M.S. [address] [place] [phone] Sandeep Galicia R.N. [address] [place] [phone] 05/29/2023 4:00 PM ENVIRONMENTAL AIR SPECIALIST Comprehensive Visit Division of Nephrology and Hypertension in [place], [place] [address] [place] [phone] Sera Casiano M.D., Ph.D. [address] [place] [phone] 06/15/2023 2:00 PM ENVIRONMENTAL AIR SPECIALIST Ancillary Procedure Department of Ophthalmology in [place], [place] [address] [place] [phone] Justin Bunch M.D. [address] [place] [phone] 06/15/2023 2:30 PM ENVIRONMENTAL AIR SPECIALIST Ancillary Procedure Department of Ophthalmology in [address] [phone] Justin Bunch M.D. [address] [place] [phone] 06/15/2023 2:45 PM ENVIRONMENTAL AIR SPECIALIST Office Visit Department of Ophthalmology in [address] [phone] Justin Bunch M.D. [address] [place] [phone] documented as of this encounter Visit Diagnoses Not on filedocumented in this encounter Additional Health Concerns Assessment Noted Time PHQ-9 Depression Total Score: 4 06/06/19 23 2:04 PM ENVIRONMENTAL AIR SPECIALIST documented as of this encounter Care Teams Clinical Documentation Specialist Relationship Specialty Start Date End Date Clover Delaney M.D. [address] [place] [phone] PCP - General Internal Medicine 11/23/17 documented as of this encounter
--- OUTSIDE RECORDS SUMMARY | 2023-05-05 12:01 | XMS_ITS | Encounter Summary ---
Author Name Unknown Organization [facility] Address [address] [place] [address] Care Team Providers Care Churn Operator Margarine Name Role Phone Clover Delaney M.D. Primary Care Provider +1- [phone] Encounter Details Date Type Department Care Team (Latest Contact Info) Description 01/19/2023 Clinical Communication Department of Ophthalmology in [place], [place] [address] [place] [address] Provider, Unknown Social History Tobacco Use Types Packs/Day Years [...] often do you attend chur ch or jehovah's witness services? Never 07/28/2022 Do you belong to [...] 06/06/2022 [facility] - Occupational Stress Questionnaire Answer Date [...] place to sleep or slept in a fpc (including now)? No 07/28/2022 Depression Answer Date [...] Sex Assigned at Male 05/13/2021 10:11 AM CORN POPPER Gender Identity Male 11/02/2017 7:22 PM CDT Sexual Orientation Straight 11/02/2017 7: 22 PM CDT documented as of this encounter Miscellaneous Notes * Telephone Encounter - Yennifer Coello Ash - 01/19/2023 8:17 AM CDT ???We are considered an Urgent Eye Care clinic, we do see patients based on urgencies. There are a few questions we will go through with you to send to our on-call Diamond Finishing Supervisor to determine if we are able to offer you a more urgent appointment. Typically, it would be a same day or next day appointment. If our providers do not think it is necessary for you to be seen, you may be given medical advice. Regardless of the outcome, you should expect a call back from us within the next hour to let you know what our provider has considered.?? Which eye is bothering you? Patient only has one eye so right eye Have you had eye surgery in the past 90 days (with who and when)? NO Please describe all of the concerns/symptoms you are experiencing and how long it has been going on: Yesterday - black lacy line(moves all the time) blurry when looking at a white wall, Symptoms are staying the same, getting better, getting worse? Staying the same Have you noticed any changes in your vision? Blurry Are you currently having any pain with your eye(s)? (If so, on a scale of 1-10, 10 being the worst,what would you rate your pain)? NO Do you wear contact lens? NO Is there anything you have tried to do to help your eyes (warm/cold compress, irrigation, artificial tears, etc)? NO Are you followed by an eye doctor at [facility]? Dr. Bunch Do you see anyone regularly for eye exams? NO What is the best phone number to reach you at? [phone] If our provider would like to see you, about how long would it take to get to [facility]?1.5 hours Request taken by Yennifer documented in this encounter Plan of Treatment Upcoming Encounters Date Type Department Care Team (Latest Contact Info) Description 05/28/2023 10:00 AM CORN POPPER Appointment Department of Laboratory Medicine in [place], [place] [address] [place] [phone] Mónica Portillo, TRIXIE, C.N.P., M.S. [address] [place] [address] 05/28/2023 10:10 AM CORN POPPER Appointment Department of Laboratory Medicine in [place], [place] [address] [place] [address] Mónica Portillo APRN, C.N.P., M.S. [address] [place] [phone] 05/29/2023 8:00 AM CORN POPPER Office Visit Department of Community Internal Medicine in [place], [place] [address] [place] [address] Clover Delaney M.D. [address] [place] [phone] Discharge Disposition: Home or Self Care 05/29/2023 10:15 AM CORN POPPER Appointment Department of Radiology, [facility], in [place], [place] [address] [place] [phone] Mónica Portillo APRN, C.N.P., M.S. [address] [place] [phone] 05/29/2023 1:00 PM CORN POPPER Procedure visit Department of Urology in [place], [place] [address] [place] [phone] Mónica Portillo APRN, Kassandra.N.P., M.S. [address] [place] [phone] 05/29/2023 3:00 PM CORN POPPER Education Division of Nephrology and Hypertension in [place], [place] [address] [place] [phone] Mónica Portillo APRN, C.N.P., M.S. [address] [place] [phone] Sandeep Galicia R.N. [address] [place] [phone] 05/29/2023 4:00 PM CORN POPPER Comprehensive Visit Division of Nephrology and Hypertension in [place], [place] [address] [place] [phone] Sera Casiano M.D., Ph.D. [address] [place] [phone] 06/15/2023 2:00 PM CORN POPPER Ancillary Procedure Department of Ophthalmology in [place], [place] [address] [place] [phone] Justin Bunch M.D. [address] [place] [phone] 06/15/2023 2:30 PM CORN POPPER Ancillary Procedure Department of Ophthalmology in [place], [place] [address] [place] [phone] Justin Bunch M.D. [address] [place] [phone] 06/15/2023 2:45 PM CORN POPPER Office Visit Department of Ophthalmology in [place], [place] [address] [place] [phone] Justin Bunch M.D. [address] [place] [phone] documented as of this encounter Visit Diagnoses Not on filedocumented in this encounter Additional Health Concerns Assessment Noted Time PHQ-9 Depression Total Score: 4 06/06/19 23 2:04 PM CORN POPPER documented as of this encounter Care Teams Churn Operator Margarine Relationship Specialty Start Date End Date Clover Delaney M.D. [address] [place] [phone] PCP - General Internal Medicine 11/23/17 documented as of this encounter
--- OUTSIDE RECORDS SUMMARY | 2023-05-05 12:01 | XMS_ITS | Encounter Summary ---
Author Name Unknown Organization [facility] Address [address] [place] [address] Care Team Providers Care Trailer Rental Clerk Name Role Phone Clover Delaney M.D. 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 200 [place] [address] [facility] Region Referral ID Status Reason Start Date Expiration Date V isits Requested Visits Authorized [id number] Pending Review 09/03/2022 09/03/2023 12 12 Encounter Details Date Type Department Care Team (Latest Contact Info) Description 01/06/2023 10:19 AM CDT - 01/06/2023 11:59 PM CDT Hospital Encounter Department of Laboratory Medicine in [address] [phone] Mónica Portillo APRN, C.N.P., M.S. [address] [place] [phone] (work) Anemia Of Chronic Renal Disease Discharge Disposition: [...] How often do you attend chur or episcopal services? Never 07/28/2022 Do you belong to any clubs o r organizations such as confucianism groups, unions, fraternal or athletic groups, or [...] Answer Date Recorded PHQ-2 Score 0 06/06/2022 [facility] of Occupat ional Health [...] Sex Assigned at Male 05/13/2021 10:11 AM FABRICATION AND LAYOUT CRAFTSMAN Gender Identity Male 11/02/2017 7:22 PM CDT [...] mouth as needed. 0 miscellaneous medical supply [facility] CPAP Supplies See Instructions, CPAP machine, mask 1 ea x 4 refills, headgear 1 ea x 2 refills, tubing 1 ea x 4 refills, filters 2 ea per month, tub 1 ea x 2 refills, mask seal 1 ea x 2 refills DX G47.33, length of need 99, 1 each, 0 Refill(s) 0 10/20/2016 miscellaneous medical supply [facility] Head Gear for CPAP Machine See Instructions, fax to patient at [phone], 1 each 0 01/17/2014 MULTIVITAMIN ORAL Daily Multiple Vitamins See Instructions, Take 1 tablet by mouth daily. 0 07/23/2013 multivitamin-eye (PRESERVISION LUTEIN) 226 mg-90 mg-5 mg-0.8 mg capsule Take 2 capsules by mouth daily. 0 ONETOUCH DELICA LANCETS 33 gauge [facility] 3 08/02/2018 OneTouch Ultra Test stripsIndications:Diabe daquan [...] eye once daily. 5 mL 0 11/06/2022 predniSONE (DELTASONE) 5 mg tablet TAKE ONE TABLET BY MOUTH ONE TIME DAILY 90 tablet 3 10/23/2022 UltiCare Pen Needle 31 gauge x 1/4 needleIndications:Diabe daquan Mellitus Type 2 With Diabetic Neuropathy Hyperglycemic (HCC) Use to inject insulin daily 100 each 3 03/31/2022 insulin glargine (Lantus Solostar U-100 Insulin) 100 unit/mL (3 mL) injectionIndications:Di abetes Mellitus Type 2 Hyperglycemia (HCC) Inject 26 Units under the skin at bedtime. 30 mL 3 01/27/2022 03/16/2023 torsemide (DEMADEX) 20 mg tablet TAKE ONE TABLET BY MOUTH ONE TIME DAILY 90 tablet 3 09/03/2022 01/16/2023 documented as of this encounter Plan of Treatment Upcoming Encounters Date Type Department Care Team (Latest Contact Info) Description 05/28/2023 10:00 AM FABRICATION AND LAYOUT CRAFTSMAN Appointment Department of Laboratory Medicine in [place], [place] [address] [place] [address] Mónica Portillo APRN, C.N.P., M.S. [address] [place] [phone] 05/28/2023 10:10 AM FABRICATION AND LAYOUT CRAFTSMAN Appointment Department of Laboratory Medicine in [place], [place] [address] [place] [address] Mónica Portillo APRN, C.N.P., M.S. [address] [place] [phone] 05/29/2023 8:00 AM FABRICATION AND LAYOUT CRAFTSMAN Office Visit Department of Community Internal Medicine in [place], [place] [address] [place] [address] Clover Delaney M.D. [address] [place] [phone] Discharge Disposition: Home or Self Care 05/29/2023 10:15 AM FABRICATION AND LAYOUT CRAFTSMAN Appointment Department of Radiology, [facility], in [place], [place] [address] [place] [phone] Mónica Portillo APRN, C.N.P., M.S. [address] [place] [phone] 05/29/2023 1:00 PM FABRICATION AND LAYOUT CRAFTSMAN Procedure visit Department of Urology in [place], [place] [address] [place] [phone] Mónica Portillo APRN, Kassandra.N.P., M.S. [address] [place] [phone] 05/29/2023 3:00 PM FABRICATION AND LAYOUT CRAFTSMAN Education Division of Nephrology and Hypertension in [place], [place] [address] [place] [phone] Mónica Portillo APRN, C.NTaylor., M.S. [address] [place] [phone] Sandeep Galicia R.N. [address] [place] [phone] 05/29/2023 4:00 PM FABRICATION AND LAYOUT CRAFTSMAN Comprehensive Visit Division of Nephrology and Hypertension in [place], [place] [address] [place] [phone] Sera Casiano M.D., Ph.D. [address] [place] [phone] 06/15/2023 2:00 PM FABRICATION AND LAYOUT CRAFTSMAN Ancillary Procedure Department of Ophthalmology in [place], [place] [address] [place] [phone] Justin Bunch M.D. [address] [place] [phone] 06/15/2023 2:30 PM FABRICATION AND LAYOUT CRAFTSMAN Ancillary Procedure Department of Ophthalmology in [place], [place] [address] [place] [phone] Justin Bunch M.D. [address] [place] [phone] 06/15/2023 2:45 PM FABRICATION AND LAYOUT CRAFTSMAN Office Visit Department of Ophthalmology in [place], [place] [address] [place] [phone] Justin Bunch M.D. [address] [place] [address] documented as of this encounter Procedures Procedure Name Priority Date/Time Associated Diagnosis Comments CBC WITH DIFFERENTIAL, B Routine 01/06/2023 10:24 AM CDT Anemia Of Chronic Renal Disease documented in this encounter Results * (ABNORMAL) CBC with Differential, Blood (01/06/2023 10:24 AM CDT) Pathologist [facility] Hemoglobin 10.1(L) 13.2 - 16.6 g/dL 01/06/2023 10:45 AM CDT CNFL Hematocrit 31.3(L) 38.3 - 48.6 % 01/06/2023 10:45 AM CDT CNFL Erythrocytes 3.32(L) 4.35 - 5.65 x10(12)/L 01/06/2023 10:45 AM CDT CNFL MCV 94.3 78.2 - 97.9 fL 01/06/2023 10:45 AM CDT CNFL RBC Distrib Width 14.2 11.8 - 14.5 % 01/06/2023 10:45 AM CDT CNFL Platelet Count 186 135 - 317 x10(9)/L 01/06/2023 10:45 AM CDT CNFL Leukocytes 11.1(H) 3.4 - 9.6 x10(9)/L 01/06/2023 10:45 AM CDT CNFL Neutrophils 9.41(H) 1.56 - 6.45 x10(9)/L 01/06/2023 10:45 AM CDT CNFL Lymphocytes 0.70(L) 0.95 - 3.07 x10(9)/L 01/06/2023 10:45 AM CDT CNFL Monocytes 0.69 0.26 - 0.81 x10(9)/L 01/06/2023 10:45 AM CDT CNFL Eosinophils 0.20 0.03 - 0.48 x10(9)/L 01/06/2023 10:45 AM CDT CNFL Basophils 0.05 0.01 - 0.08 x10(9)/L 01/06/2023 10:45 AM CDT CNFL Blood (Blood, Venous) 01/06/2023 10:24 AM CDT 01/06/2023 10:25 AM CDT Mónica Portillo APRN, C.N.P., M.S. LAB BLOOD ADD-ON [facility] [address] [place] [phone], [facility] CNFL [facility] in [address] [address] documented in this encounter Visit Diagnoses Diagnosis Anemia Of Chronic Renal Disease documented in this encounter Additional Health Concerns Assessment Noted Time PHQ-9 Depression Total Score: 4 06/06/19 23 2:04 PM FABRICATION AND LAYOUT CRAFTSMAN documented as of this encounter Care Teams Trailer Rental Clerk Relationship Specialty Start Date End Date Clover Delaney M.D. [address] [place] [phone] PCP - General Internal Medicine 11/23/17 documented as of this encounter
--- OUTSIDE RECORDS SUMMARY | 2023-05-05 12:01 | XMS_ITS | Encounter Summary ---
Author Name Unknown Organization [facility] Address [address] [place] [address] Care Team Providers Care Hat Block Bench Hand Name Role Phone Clover Delaney M.D. Primary Care Provider [phone] [phone] Reason for Visit * Reason Comments Outpatient Infusion * Episode Based Medications (Routine) - Closed Specialty Diagnoses / Procedures Referred By Contanthony t Referred To Contact Diagnoses Anemia Of Chronic Renal Disease Anemia Iron Deficiency Procedures [place] FERUMOXYTOL NON-ESRD Mónica Portillo APRN, C.N.P., M.S. [address] [place] [phone] [facility] Region Referral ID Status Reason Start Date Expiration Date Visits Re quested Visits Authorized [id number] Closed 09/18/2022 09/18/2023 2 2 Encounter Details Date Type Department Care Team (Late st Contact Info) Description 11/28/2022 12:00 PM CDT Infusion Department of Infusion Therapy in [address] [phone] Mónica Portillo APRN, C.N.P., M.S. [address] [place] [phone] Anemia Of Chronic Renal Disease (Primary Dx); Anemia Iron Deficiency Social History Tobacco Use Types Packs/Day Years [...] often do you attend chur ch or pentecostal services? Never 07/28/2022 Do you belong to any clubs o r organizations such as denominational groups, unions, fraternal or athletic groups, or [...] Recorded PHQ-2 Score 0 06/06/2022 [facility] - Occupational Stress Questionnaire Answer Date Recorded [...] have received? Professional school degree (e.g., , DDAsh, DVM, NACHO) 10/10/2020 Sex and Gender Information Value Date Recorded Sex Assigned at Male 05/13/2021 10:11 AM TRUCK ENGINE TECHNICIAN Gender Identity Male 11/02/2017 7:22 PM CDT Sexual Orientation Straight 11/02/2017 7: 22 PM CDT documented as of this encounter Last Filed Vital Signs Vital Sign Reading Time Taken Comments Blood Pressure 209/61 11/28/2022 12:03 PM CDT Patient states that this is a normal blood preasure for him. Patient states that he has no symptoms of hypertension Pulse 55 11/28/2022 12:03 PM CDT Temperature 36 ??C (96.8 ??F) 11/28/2022 12: 03 PM CDT Respiratory Rate 18 11/28/2022 12:0 3 PM CDT Oxygen Saturation 98% 11/28/2022 12: 03 PM CDT Inhaled Oxygen Concentration - - Weight - - Height - - Body Mass Index - - documented in this encounter Plan of Treatment Upcoming Encounters Date Type Department Care Team (Latest Contact Info) Description 05/28/2023 10:00 AM TRUCK ENGINE TECHNICIAN Appointment Department of Laboratory Medicine in [place], [place] [address] [place] [address] Mónica Portillo APRN, C.N.P., M.S. [address] [place] [phone] 05/28/2023 10:10 AM TRUCK ENGINE TECHNICIAN Appointment Department of Laboratory Medicine in [place], [place] [address] [place] [phone] Mónica Portillo APRN, C.N.P., M.S. [address] [place] [phone] 05/29/2023 8:00 AM TRUCK ENGINE TECHNICIAN Office Visit Department of Community Internal Medicine in [address] [place] [address] Clover Delaney M.D. [address] [place] [phone] Discharge Disposition: Home or Self Care 05/29/2023 10:15 AM TRUCK ENGINE TECHNICIAN Appointment Department of Radiology, [facility], in [place], [place] [address] [place] [address] Mónica Portillo APRN, C.N.P., M.S. [address] [place] [phone] 05/29/2023 1:00 PM TRUCK ENGINE TECHNICIAN Procedure visit Department of Urology in [place], [place] [address] [place] [phone] Mónica Portillo APRN, C.N.P., M.S. [address] [place] [phone] 05/29/2023 3:00 PM TRUCK ENGINE TECHNICIAN Education Division of Nephrology and Hypertension in [place], [place] [address] [place] [phone] Mónica Portillo APRN, C.N.P., M.S. [address] [place] [phone] Sandeep Galicia R.N. [address] [place] [phone] 05/29/2023 4:00 PM TRUCK ENGINE TECHNICIAN Comprehensive Visit Division of Nephrology and Hypertension in [place], [place] [address] [place] [phone] Sera Casiano M.D., Ph.D. [address] [place] [phone] 06/15/2023 2:00 PM TRUCK ENGINE TECHNICIAN Ancillary Procedure Department of Ophthalmology in [place], [place] [address] [place] [phone] Justin Bunch M.D. [address] [place] [phone] 06/15/2023 2:30 PM TRUCK ENGINE TECHNICIAN Ancillary Procedure Department of Ophthalmology in [place], [place] [address] [place] [phone] Justin Bunch M.D. [address] [place] [phone] 06/15/2023 2:45 PM TRUCK ENGINE TECHNICIAN Office Visit Department of Ophthalmology in [place], [place] [address] [place] [phone] Justin Bunch M.D. 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 [address] [place] [phone] PCP - General Internal Medicine 7/30/18 documented as of this encounter
--- OUTSIDE RECORDS SUMMARY | 2023-05-05 12:01 | XMS_ITS | Encounter Summary ---
Author Name Unknown Organization [facility] Address [address] [place] [address] Care Team Providers Care Stitch Wheeler Name Role Phone Clover Delaney M.D. Primary Care Provider [phone]- [phone] Reason for Visit * Episode Based Medications (Routine) - Pending Review Specialty Diagnoses / Procedures Referred By Contanthony t Referred To Contact Diagnoses Malignant Neoplasm Of Transverse Colon (HCC) Anemia Of Chronic Renal Disease Procedures [place] DARBEPOETIN SHER, NON-ESRD [place] DARBEPOETIN SHER, ESRD USE Mónica Portillo APRN, C.N.P., M.S. 200 [place] [address] [facility] Region Referral ID Status Reason Start Date Expiration Date V isits Requested Visits Authorized [id number] Pending Review 09/03/2022 09/03/2023 12 12 Encounter Details Date Type Department Care Team (Latest Contact Info) Description 11/28/2022 11:35 AM CDT - 11/28/2022 11:59 PM CDT Hospital Encounter Department of Laboratory Medicine in [address] [phone] Mónica Portillo APRN, C.N.P., M.S. [address] [place] [phone] (work) Anemia Of Chronic Renal Disease Discharge [...] How often do you attend chur or faith services? Never 07/28/2022 Do you belong to any clubs o r organizations such as nondenominational groups, unions, fraternal or athletic groups, or [...] Recorded PHQ-2 Score 0 06/06/2022 [facility] of Occupat ional Health - Occupational [...] Sex Assigned at Male 05/13/2021 10:11 AM PHOTOCOPYING EQUIPMENT REPAIRER Gender Identity Male 11/02/2017 7:22 PM CDT [...] mouth as needed. 0 miscellaneous medical supply [facility] CPAP Supplies See Instructions, CPAP machine, mask 1 ea x 4 refills, headgear 1 ea x 2 refills, tubing 1 ea x 4 refills, filters 2 ea per month, tub 1 ea x 2 refills, mask seal 1 ea x 2 refills DX G47.33, length of need 99, 1 each, 0 Refill(s) 0 10/20/2016 miscellaneous medical supply [facility] Head Gear for CPAP Machine See Instructions, fax to patient at [phone], 1 each 0 01/17/2014 MULTIVITAMIN ORAL Daily Multiple Vitamins See Instructions, Take 1 tablet by mouth daily. 0 07/23/2013 multivitamin-eye (PRESERVISION LUTEIN) 226 mg-90 mg-5 mg-0.8 mg capsule Take 2 capsules by mouth daily. 0 ONETOUCH DELICA LANCETS 33 gauge [facility] 3 08/02/2018 OneTouch Ultra Test stripsIndications:Diabe daquan [...] (Latest Contact Info) Description 05/28/2023 10:00 AM PHOTOCOPYING EQUIPMENT REPAIRER Appointment Department of Laboratory Medicine in [place], [place] [address] [place] [address] Mónica Portillo APRN, C.N.P., M.S. [address] [place] [phone] 05/28/2023 10:10 AM PHOTOCOPYING EQUIPMENT REPAIRER Appointment Department of Laboratory Medicine in [place], [place] [address] [place] [phone] Mónica Portillo APRN, C.N.P., M.S. [address] [place] [phone] 05/29/2023 8:00 AM PHOTOCOPYING EQUIPMENT REPAIRER Office Visit Department of Community Internal Medicine in [place], [place] [address] [place] [address] Clover Delaney M.D. [address] [place] [phone] Discharge Disposition: Home or Self Care 05/29/2023 10:15 AM PHOTOCOPYING EQUIPMENT REPAIRER Appointment Department of Radiology, [facility], in [place], [place] [address] [place] [phone] Mónica Portillo APRN, C.N.P., M.S. [address] [place] [phone] 05/29/2023 1:00 PM PHOTOCOPYING EQUIPMENT REPAIRER Procedure visit Department of Urology in [place], [place] [address] [place] [phone] Mónica Portillo APRN, Kassandra.N.P., M.S. [address] [place] [phone] 05/29/2023 3:00 PM PHOTOCOPYING EQUIPMENT REPAIRER Education Division of Nephrology and Hypertension in [place], [place] [address] [place] [phone] Mónica Portillo APRN, C.NTaylor., M.S. [address] [place] [phone] Sandeep Galicia R.N. [address] [place] [phone] 05/29/2023 4:00 PM PHOTOCOPYING EQUIPMENT REPAIRER Comprehensive Visit Division of Nephrology and Hypertension in [place], [place] [address] [place] [phone] Sera Casiano M.D., Ph.D. [address] [place] [phone] 06/15/2023 2:00 PM PHOTOCOPYING EQUIPMENT REPAIRER Ancillary Procedure Department of Ophthalmology in [place], [place] [address] [place] [phone] Justni Bunch M.D. [address] [place] [phone] 06/15/2023 2:30 PM PHOTOCOPYING EQUIPMENT REPAIRER Ancillary Procedure Department of Ophthalmology in [place], [place] [address] [place] [phone] Justin Bunch M.D. [address] [place] [phone] 06/15/2023 2:45 PM PHOTOCOPYING EQUIPMENT REPAIRER Office Visit Department of Ophthalmology in [place], [place] [address] [place] [phone] Justin Bunch M.D. [address] [place] [phone] documented as of this encounter Procedures Procedure Name Priority Date/Time Associated Diagnosis Comments CBC WITH DIFFERENTIAL, B Routine 11/28/2022 11:45 AM CDT Anemia Of Chronic Renal Disease documented in this encounter Results * (ABNORMAL) CBC with Differential, Blood (11/28/2022 11:45 AM CDT) Pathologist [facility] Hemoglobin 9.6(L) 13.2 - 16.6 g/dL 11/28/2022 11:54 AM CDT CNFL Hematocrit 29.6(L) 38.3 - 48.6 % 11/28/2022 11:54 AM CDT CNFL Erythrocytes 3.12(L) 4.35 - 5.65 x10(12)/L 11/28/2022 11:54 AM CDT CNFL MCV 94.9 78.2 - 97.9 fL 11/28/2022 11:54 AM CDT CNFL RBC Distrib Width 14.4 11.8 - 14.5 % 11/28/2022 11:54 AM CDT CNFL Platelet Count 194 135 - 317 x10(9)/L 11/28/2022 11:54 AM CDT CNFL Leukocytes 11.1(H) 3.4 - 9.6 x10(9)/L 11/28/2022 11:54 AM CDT CNFL Neutrophils 9.62(H) 1.56 - 6.45 x10(9)/L 11/28/2022 11:54 AM CDT CNFL Lymphocytes 0.60(L) 0.95 - 3.07 x10(9)/L 11/28/2022 11:54 AM CDT CNFL Monocytes 0.65 0.26 - 0.81 x10(9)/L 11/28/2022 11:54 AM CDT CNFL Eosinophils 0.17 0.03 - 0.48 x10(9)/L 11/28/2022 11:54 AM CDT CNFL Basophils <0.04 0.01 - 0.08 x10(9)/L 11/28/2022 11:54 AM CDT CNFL Blood (Blood, Venous) 11/28/2022 11:45 AM CDT 11/28/2022 11:47 AM CDT Mónica Portillo APRN, C.N.P., M.S. LAB BLOOD ADD-ON [facility] [address] [place] [address], [facility] CNFL [facility] in [address] [address] documented in this encounter Visit Diagnoses Diagnosis Anemia Of Chronic Renal Disease documented in this encounter Additional Health Concerns Assessment Noted Time PHQ-9 Depression Total Score: 4 06/06/19 23 2:04 PM PHOTOCOPYING EQUIPMENT REPAIRER documented as of this encounter Care Teams Stitch Wheeler Relationship Specialty Start Date End Date Clover Delaney M.D. [address] [place] [phone] PCP - General Internal Medicine 11/23/17 documented as of this encounter
--- OUTSIDE RECORDS SUMMARY | 2023-05-05 12:01 | XMS_ITS | Encounter Summary ---
Author Name Unknown Organization [facility] Address [address] [place] [address] Care Team Providers Care Customer Advisor Specialist Name Role Phone Clover Delaney M.D. Primary Care Provider [phone]- [phone] Reason for Visit * Reason Comments Med Refill Encounter Details Date Type Department Care Team (Late st Contact Info) Description 11/06/2022 Refill Department of Ophthalmology in [place], [place] [address] [place] [phone] Jon Juarez M.D. [address] [place] [address] Med Refill Social History Tobacco Use Types [...] often do you attend chur ch or scientologist services? Never 07/28/2022 Do you belong to [...] Answer Date Recorded PHQ-2 Score 0 06/06/2022 [facility] [place] of Occupat ional Health - Occupational Stress [...] Sex Assigned at Male 05/13/2021 10:11 AM HARVEST WORKER FIELD CROP Gender Identity Male 11/02/2017 7:22 PM CDT Sexual Orientation Straight 11/02/2017 7: 22 PM CDT documented as of this encounter Miscellaneous Notes * Telephone Encounter - Cari Butcher - 11/06/2022 10:28 AM CDT Please send to [facility] documented in this encounter Plan of Treatment Upcoming Encounters Date Type Department Care Team (Latest Contact Info) Description 05/28/2023 10:00 AM HARVEST WORKER FIELD CROP Appointment Department of Laboratory Medicine in [place], [place] [address] [place] [address] Mónica Portillo APRN, C.N.P., M.S. [address] [place] [phone] 05/28/2023 10:10 AM HARVEST WORKER FIELD CROP Appointment Department of Laboratory Medicine in [place], [place] [address] [place] [address] Mónica Portillo APRN, C.N.P., M.S. [address] [place] [phone] 05/29/2023 8:00 AM HARVEST WORKER FIELD CROP Office Visit Department of Community Internal Medicine in [place], [place] [address] [place] [address] Clover Delaney M.D. [address] [place] [phone] Discharge Disposition: Home or Self Care 05/29/2023 10:15 AM HARVEST WORKER FIELD CROP Appointment Department of Radiology, [facility], in [place], [place] [address] [place] [phone] Mónica Portillo APRN, C.N.P., M.S. [address] [place] [phone] 05/29/2023 1:00 PM HARVEST WORKER FIELD CROP Procedure visit Department of Urology in [place], [place] [address] [place] [phone] Mónica Portillo APRN, Kassandra.N.P., M.S. [address] [place] [phone] 05/29/2023 3:00 PM HARVEST WORKER FIELD CROP Education Division of Nephrology and Hypertension in [place], [place] [address] [place] [phone] Mónica Portillo APRN, C.NTaylor., M.S. [address] [place] [phone] Sandeep Galicia R.N. [address] [place] [phone] 05/29/2023 4:00 PM HARVEST WORKER FIELD CROP Comprehensive Visit Division of Nephrology and Hypertension in [place], [place] [address] [place] [phone] Sera Casiano M.D., Ph.D. [address] [place] [phone] 06/15/2023 2:00 PM HARVEST WORKER FIELD CROP Ancillary Procedure Department of Ophthalmology in [place], [place] [address] [place] [phone] Justin Bunch M.D. [address] [place] [phone] 06/15/2023 2:30 PM HARVEST WORKER FIELD CROP Ancillary Procedure Department of Ophthalmology in [place], [place] [address] [place] [phone] Justin Bunch M.D. [address] [place] [phone] 06/15/2023 2:45 PM HARVEST WORKER FIELD CROP Office Visit Department of Ophthalmology in [place], [place] [address] [place] [phone] Justin Bunch M.D. [address] [place] [phone] documented as of this encounter Visit Diagnoses Not on filedocumented in this encounter Additional Health Concerns Assessment Noted Time PHQ-9 Depression Total Score: 4 06/06/19 23 2:04 PM HARVEST WORKER FIELD CROP documented as of this encounter Care Teams Customer Advisor Specialist Relationship Specialty Start Date End Date Clover Delaney M.D. [address] [place] [phone] PCP - General Internal Medicine 11/23/17 documented as of this encounter
--- OUTSIDE RECORDS SUMMARY | 2023-05-05 12:01 | XMS_ITS | Encounter Summary ---
Author Name Unknown Organization [facility] Address [address] [place] [address] Care Team Providers Care Reinforcing Steel Worker Wire Mesh Name Role Phone Clover Delaney M.D. Primary Care Provider [phone] Reason for Referral * Outpatient (Routine) - Closed Specialty Diagnoses / Procedures Referred By Yenny t Referred To Contact Ophthalmology Jon Juarez M.D. [address] [place] [address] [facility] Referral ID Status Reason Start Date Expiration Date Visits Re quested Visits Authorized [id number] Closed 01/19/2023 01/18/2026 1 1 Encounter Details Date Type Department Care Team (Latest Contact Info) Description 01/19/2023 11:00 AM CDT Office Visit Department of Ophthalmology in [place], [place] [address] [place] [phone] Jon Juarez M.D. [address] [place] [phone] Diabetes Mellitus Type 2 With Proliferative Diabetic [...] often do you attend chur ch or congregational services? Never 07/28/2022 Do you belong to any clubs o r organizations such as moravian groups, unions, fraternal or athletic groups, or [...] Answer Date Recorded PHQ-2 Score 0 06/06/2022 [facility] [place] of Occupat ional Health - Occupational Stress [...] Sex Assigned at Male 05/13/2021 10:11 AM FOOD PREPARATION WORKER Gender Identity Male 11/02/2017 7:22 PM CDT Sexual Orientation Straight 11/02/2017 7: 22 PM CDT documented as of this encounter Progress Notes * Jon Juarez M.D. - 01/19/2023 11:00 AM CDT Philip Jaret Patel was seen today. # Posterior vitreous detachment, RIGHT eye # Scant Vitreous hemorrhage, RIGHT eye # Endophthalmitis, LEFT eye # Total retinal detachment, LEFT eye # Hypotony, LEFT eye -status post tap/inject (11/10/21 Ann) after intravitreal injection on 11/05/21 -No growth on bacterial cultures -status post vitrectomy/pars plana lensectomy/360 retinectomy/endolaser/oil (Jeannine 03/03/22) # Aphakia, LEFT eye # Proliferative diabetic retinopathy, LEFT eye # Neovascular glaucoma, LEFT eye # Cataract, RIGHT eye # Anemia # Chronic kidney disease, stage 4 # Colon cancer # Granulomatosis with polyangiitis Imaging: OCT Macula 09/08/22: Right: Normal foveal contour; some scarce temporal and nasal IRF Left: tabletop fibrotic bands; IRF with loss of foveal contour; choroidal folds Impression 01/19/23: Patient here for urgent visit due to new floaters in right eye. Vision is mildly decreased (20/40 compared to 20/30 at last visit). There is a PVD on exam with scant VH. Superiorly suspicious area ofstrand of VH. This was lasered today. Plan: Laser retinopexy today Follow up in [address] Bunch with Optos fluorescein angiography and OCT macula both eyes documented in this encounter Plan of Treatment Upcoming Encounters Date Type Department Care Team (Latest Contact Info) Description 05/28/2023 10:00 AM FOOD PREPARATION WORKER Appointment Department of Laboratory Medicine in [place] [address] [place] [address] Mónica Portillo APRN, C.N.P., M.S. [address] [place] [phone] 05/28/2023 10:10 AM FOOD PREPARATION WORKER Appointment Department of Laboratory Medicine in [place], [place] [address] [place] [address] Mónica Portillo APRN, C.N.P., M.S. [address] [place] [phone] 05/29/2023 8:00 AM FOOD PREPARATION WORKER Office Visit Department of Community Internal Medicine in [place] [address] [place] [address] Clover Delaney M.D. [address] [place] [phone] Discharge Disposition: Home or Self Care 05/29/2023 10:15 AM FOOD PREPARATION WORKER Appointment Department of Radiology, [facility], in [place], [place] [address] [place] [phone] Mónica Portillo APRN, C.N.P., M.S. [address] [place] [phone] 05/29/2023 1:00 PM FOOD PREPARATION WORKER Procedure visit Department of Urology in [place], [place] [address] [place] [address] Mónica Portillo APRN, C.N.P., M.S. [address] [place] [phone] 05/29/2023 3:00 PM FOOD PREPARATION WORKER Education Division of Nephrology and Hypertension in [place], [place] [address] [place] [phone] Mónica Portillo APRN, CJosé LuisN.P., M.S. [address] [place] [phone] Sandeep Galicia R.N. [address] [place] [phone] 05/29/2023 4:00 PM FOOD PREPARATION WORKER Comprehensive Visit Division of Nephrology and Hypertension in [place], [place] [address] [place] [phone] Sera Casiano M.D., Ph.D. [address] [place] [phone] 06/15/2023 2:00 PM FOOD PREPARATION WORKER Ancillary Procedure Department of Ophthalmology in [place], [place] [address] [place] [phone] Justin Bunch M.D. [address] [place] [phone] 06/15/2023 2:30 PM FOOD PREPARATION WORKER Ancillary Procedure Department of Ophthalmology in [address] [phone] Justin Bunch M.D. [address] [place] [phone] 06/15/2023 2:45 PM FOOD PREPARATION WORKER Office Visit Department of Ophthalmology in [address] [phone] Justin Bunch M.D. [address] [place] [phone] Scheduled Referrals Name Type Priority Associated Diagnoses Order Schedule Ophthalmology office visit (clinic) Outpatient Referral Routine Expected: 02/18/2023 (Approximate), Expires: 04/20/2024 documented as of this encounter Results * Optical Coherence Tomography (OCT) - Macula/Retina - OU - Both Eyes (03/06/2023 4:28 PM FOOD PREPARATION WORKER) Narrative OPHTHALMOLOGY IMAGING EXAM - 03/06/2023 4:28 PM FOOD PREPARATION WORKER See interpretation in note section Jon Juarez M.D. 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 [address] [place] [phone] PCP - General Internal Medicine 11/23/17 documented as of this encounter
[2023-05-05 12:02] LABS: Troponin, Point-of-Care* 0.01 ng/ml (0.01-0.04)
[2023-05-05 12:02] LABS: Basophils Percent Auto 0.2 % (0.0-3.0); Hematocrit 27.9 % (37.0-53.0); Hemoglobin* 8.9 gm/dL (13.5-17.5); Immature Granulocytes Pct Auto 0.4 %; Lymphocytes Percent Auto 3.5 % (20-44); Mean Corpuscular HGB Conc 32 gm/dL (32-36); Mean Corpuscular Hemoglobin 31 pg (26-34); Mean Corpuscular Volume 96 fL (80-100); Monocytes Percent Auto 7.6 % (0.0-11.0); Neutrophils Percent Auto 87.3 % (42.0-72.0); Platelet Count* 157 K/uL (140-440); RDW Coefficient of Variation % 14.1 % (11.5-15.5); Red Blood Count 2.92 m/uL (4.30-5.90); White Blood Count* 12.68 K/uL (4.50-11.00)
--- OUTSIDE RECORDS SUMMARY | 2023-05-05 12:02 | XMS_ITS | Encounter Summary ---
Author Name Unknown Organization [facility] Address [address] [place] [address] Care Team Providers Care Rivet Passer Name Role Phone Clover Delaney M.D. Primary Care Provider [phone]- [phone] Encounter Details Date Type Department Care Team (Late st Contact Info) Description 09/08/2022 Orders Only Department of Ophthalmology in [place], [place] [address] [place] [address] Justin Bunch M.D. [address] [place] [phone] Diabetes Mellitus Type 2 With Proliferative Diabetic [...] often do you attend chur ch or lutheran services? Never 07/28/2022 Do you belong to any clubs o r organizations such as yazidi groups, unions, fraternal or athletic groups, or [...] Answer Date Recorded PHQ-2 Score 0 06/06/2022 [facility] [place] of Occupat ional Health - Occupational Stress [...] Sex Assigned at Male 05/13/2021 10:11 AM WHALE FISHERMAN Gender Identity Male 11/02/2017 7:22 PM CDT Sexual Orientation Straight 11/02/2017 7: 22 PM CDT documented as of this encounter Plan of Treatment Upcoming Encounters Date Type Department Care Team (Latest Contact Info) Description 05/28/2023 10:00 AM WHALE FISHERMAN Appointment Department of Laboratory Medicine in [place], [place] [address] [place] [phone] Mónica Portillo APRN, C.N.P., M.S. [address] [place] [phone] 05/28/2023 10:10 AM WHALE FISHERMAN Appointment Department of Laboratory Medicine in [place], [place] [address] [place] [address] Mónica Portillo APRN, C.N.P., M.S. [address] [place] [phone] 05/29/2023 8:00 AM WHALE FISHERMAN Office Visit Department of Community Internal Medicine in [place] [address] [place] [address] [phone] Colver Delaney M.D. [address] [place] [phone] Discharge Disposition: Home or Self Care 05/29/2023 10:15 AM WHALE FISHERMAN Appointment Department of Radiology, [facility], in [place], [place] [address] [place] [phone] Mónica Portillo APRN, C.N.P., M.S. [address] [place] [phone] 05/29/2023 1:00 PM WHALE FISHERMAN Procedure visit Department of Urology in [place], [place] [address] [place] [phone] Mónica Portillo APRN, C.N.P., M.S. [address] [place] [phone] 05/29/2023 3:00 PM WHALE FISHERMAN Education Division of Nephrology and Hypertension in [place], [place] [address] [place] [phone] Mónica Portillo APRN, C.NJosé LuisP., M.S. [address] [place] [phone] Sandeep Galicia R.N. [address] [place] [phone] 05/29/2023 4:00 PM WHALE FISHERMAN Comprehensive Visit Division of Nephrology and Hypertension in [place], [place] [address] [place] [phone] Sera Casiano M.D., Ph.D. [address] [place] [phone] 06/15/2023 2:00 PM WHALE FISHERMAN Ancillary Procedure Department of Ophthalmology in [place], [place] [address] [place] [phone] Justin Bunch M.D. [address] [place] [phone] 06/15/2023 2:30 PM WHALE FISHERMAN Ancillary Procedure Department of Ophthalmology in [address] [phone] Justin Bunch M.D. [address] [place] [phone] 06/15/2023 2:45 PM WHALE FISHERMAN Office Visit Department of Ophthalmology in [address] [phone] Justin Bunch M.D. 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 [address] [place] [phone] PCP - General Internal Medicine 11/23/17 documented as of this encounter
--- OUTSIDE RECORDS SUMMARY | 2023-05-05 12:02 | XMS_ITS | Encounter Summary ---
Author Name Unknown Organization [facility] Address [address] [place] [address] Care Team Providers Care Candy Waffle Assembler Name Role Phone Clover Delaney M.D. 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 200 [place] [address] [facility] Region Referral ID Status Reason Start Date Expiration Date V isits Requested Visits Authorized [id number] Pending Review 09/03/2022 09/03/2023 12 12 Encounter Details Date Type Department Care Team (Latest Contact Info) Description 10/03/2022 11:30 AM CDT - 10/03/2022 11:59 PM CDT Hospital Encounter Department of Laboratory Medicine in [address] [phone] Mónica Portillo APRN, C.N.P., M.S. [address] [place] [phone] (work) Anemia Of Chronic Renal Disease Discharge [...] How often do you attend chur or christianity services? Never 07/28/2022 Do you belong to any clubs o r organizations such as synagogue groups, unions, fraternal or athletic groups, or [...] Sex Assigned at Male 05/13/2021 10:11 AM REVERSER Gender Identity Male 11/02/2017 7:22 PM CDT [...] 1,000 mcg by mouth daily. 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 8 each 3 06/09/2022 06/09/2023 flash glucose sensor (FreeStyle Brionna 2 Sensor) kitIndications:Diabete s Mellitus Type 2 With Proliferative Diabetic Retinopathy Without Macular Edema Bilateral (HCC) Inject 1 each (1 kit total) under the skin every 14 (fourteen) days. 1 each 1 06/09/2022 glipiZIDE (GLUCOTROL XL) 10 mg 24 hr tabletIndications:Diab etes Mellitus Type 2 Hyperglycemia (HCC) Take 2 [...] mouth as needed. 0 miscellaneous medical supply [facility] CPAP Supplies See Instructions, CPAP machine, mask 1 ea x 4 refills, headgear 1 ea x 2 refills, tubing 1 ea x 4 refills, filters 2 ea per month, tub 1 ea x 2 refills, mask seal 1 ea x 2 refills DX G47.33, length of need 99, 1 each, 0 Refill(s) 0 10/20/2016 miscellaneous medical supply [facility] Head Gear for CPAP Machine See Instructions, fax to patient at [phone], 1 each 0 01/17/2014 MULTIVITAMIN ORAL Daily Multiple Vitamins See Instructions, Take 1 tablet by mouth daily. 0 07/23/2013 multivitamin-eye (PRESERVISION LUTEIN) 226 mg-90 mg-5 mg-0.8 mg capsule Take 2 capsules by mouth daily. 0 ONETOUCH DELICA LANCETS 33 gauge [facility] 3 08/02/2018 OneTouch Ultra Test stripsIndications:Diab etes Mellitus Type 2 (HCC) Use to test once daily 100 strip 3 12/31/2021 pen needle, diabetic (UltiCare Pen Needle) 32 gauge x 1/4 needle 1 Injection daily. 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 30 mL 3 01/27/2022 03/16/2023 prednisoLONE acetate (PRED FORTE) 1 % ophthalmic suspension Follow prednisolone taper in left eye per Dr. Paez's handout 5 mL 0 07/04/2022 11/06/2022 predniSONE (DELTASONE) 5 mg tablet TAKE ONE TABLET BY MOUTH ONE TIME DAILY 90 tablet 3 10/15/2021 10/23/2022 torsemide (DEMADEX) 20 mg tablet TAKE ONE TABLET BY MOUTH ONE TIME DAILY 90 tablet 3 09/03/2022 01/16/2023 documented as of this encounter Plan of Treatment Upcoming Encounters Date Type Department Care Team (Latest Contact Info) Description 05/28/2023 10:00 AM REVERSER Appointment Department of Laboratory Medicine in [place] [address] [place] [address] Mónica Portillo APRN, C.N.P., M.S. [address] [place] [phone] 05/28/2023 10:10 AM REVERSER Appointment Department of Laboratory Medicine in [place] [address] [place] [address] Mónica Portillo APRN, C.N.P., M.S. [address] [place] [phone] 05/29/2023 8:00 AM REVERSER Office Visit Department of Community Internal Medicine in [place] [address] [place] [address] Clover Delaney M.D. [address] [place] [phone] Discharge Disposition: Home or Self Care 05/29/2023 10:15 AM REVERSER Appointment Department of Radiology, [facility], in [place], [place] [address] [place] [phone] Mónica Portillo APRN, C.N.P., M.S. [address] [place] [phone] 05/29/2023 1:00 PM REVERSER Procedure visit Department of Urology in [place], [place] [address] [place] [phone] Mónica Portillo APRN, C.N.P., M.S. [address] [place] [phone] 05/29/2023 3:00 PM REVERSER Education Division of Nephrology and Hypertension in [place], [place] [address] [place] [phone] Mónica Portillo APRN, C.NTaylor., M.S. [address] [place] [phone] Sandeep Galicia R.N. [address] [place] [phone] 05/29/2023 4:00 PM REVERSER Comprehensive Visit Division of Nephrology and Hypertension in [place], [place] [address] [place] [phone] Sera Casiano M.D., Ph.D. [address] [place] [phone] 06/15/2023 2:00 PM REVERSER Ancillary Procedure Department of Ophthalmology in [place], [place] [address] [place] [phone] Justin Bunch M.D. [address] [place] [phone] 06/15/2023 2:30 PM REVERSER Ancillary Procedure Department of Ophthalmology in [place], [place] [address] [place] [phone] Justin Bunch M.D. [address] [place] [phone] 06/15/2023 2:45 PM REVERSER Office Visit Department of Ophthalmology in [place], [place] [address] [place] [phone] Justin Bunch M.D. [address] [place] [address] documented as of this encounter Procedures Procedure Name Priority Date/Time Associated Diagnosis Comments CBC WITH DIFFERENTIAL, B Routine 10/03/2022 11:43 AM CDT Anemia Of Chronic Renal Disease documented in this encounter Results * (ABNORMAL) CBC with Differential, Blood (10/03/2022 11:43 AM CDT) Hemoglobin 9.4(L) 13.2 - 16.6 g/dL 10/03/2022 12:04 PM CDT CNFL Hematocrit 29.4(L) 38.3 - 48.6 % 10/03/2022 12:04 PM CDT CNFL Erythrocytes 3.11(L) 4.35 - 5.65 x10(12)/L 10/03/2022 12:04 PM CDT CNFL MCV 94.5 78.2 - 97.9 fL 10/03/2022 12:04 PM CDT CNFL RBC Distrib Width 15.3(H) 11.8 - 14.5 % 10/03/2022 12:04 PM CDT CNFL Platelet Count 179 135 - 317 x10(9)/L 10/03/2022 12:04 PM CDT CNFL Leukocytes 10.5(H) 3.4 - 9.6 x10(9)/L 10/03/2022 12:04 PM CDT CNFL Neutrophils 8.94(H) 1.56 - 6.45 x10(9)/L 10/03/2022 12:04 PM CDT CNFL Lymphocytes 0.74(L) 0.95 - 3.07 x10(9)/L 10/03/2022 12:04 PM CDT CNFL Monocytes 0.58 0.26 - 0.81 x10(9)/L 10/03/2022 12:04 PM CDT CNFL Eosinophils 0.20 0.03 - 0.48 x10(9)/L 10/03/2022 12:04 PM CDT CNFL Basophils 0.05 0.01 - 0.08 x10(9)/L 10/03/2022 12:04 PM CDT CNFL Blood (Blood, Venous) 10/03/2022 11:43 AM CDT 10/03/2022 11:43 AM CDT Mónica Portillo APRN, C.N.P., M.S. LAB BLOOD ADD-ON [facility] [address] [place] [address], [facility] CNFL [facility] in [address] [address] documented in this encounter Visit Diagnoses Diagnosis Anemia Of Chronic Renal Disease documented in this encounter Additional Health Concerns Assessment Noted Time PHQ-9 Depression Total Score: 4 06/06/19 23 2:04 PM REVERSER documented as of this encounter Care Teams Candy Waffle Assembler Relationship Specialty Start Date End Date Clover Delaney M.D. [address] [place] [phone] PCP - General Internal Medicine 11/23/17 documented as of this encounter
--- OUTSIDE RECORDS SUMMARY | 2023-05-05 12:02 | XMS_ITS | Encounter Summary ---
Author Name Unknown Organization [facility] Address [address] [place] [address] Care Team Providers Care Auto Body Man Name Role Phone Clover Delaney M.D. Primary Care Provider +1- [phone] Reason for Visit * Reason Comments Med Refill Encounter Details Date Type Department Care Team (Late st Contact Info) Description 11/05/2022 Refill Department of Ophthalmology in [place], [place] [address] [place] [phone] Jon Juarez M.D. [address] [place] [phone] Med Refill Social History Tobacco Use Types [...] often do you attend chur ch or confucianist services? Never 07/28/2022 Do you belong to [...] Answer Date Recorded PHQ-2 Score 0 06/06/2022 [facility] of Occupat ional Health - Occupational Stress [...] Sex Assigned at Male 05/13/2021 10:11 AM DRILL SHARPENER Gender Identity Male 11/02/2017 7:22 PM CDT Sexual Orientation Straight 11/02/2017 7: 22 PM CDT documented as of this encounter Plan of Treatment Upcoming Encounters Date Type Department Care Team (Latest Contact Info) Description 05/28/2023 10:00 AM DRILL SHARPENER Appointment Department of Laboratory Medicine in [place] [address] [place] [address] Mónica Portillo APRN, Kassandra.N.P., M.S. [address] [place] [phone] 05/28/2023 10:10 AM DRILL SHARPENER Appointment Department of Laboratory Medicine in [place] [address] [place] [address] Mónica Portillo APRN, Kassandra.N.P., M.S. [address] [place] [phone] 05/29/2023 8:00 AM DRILL SHARPENER Office Visit Department of Community Internal Medicine in [place] [address] [place] [address] Clover Delaney M.D. [address] [place] [phone] Discharge Disposition: Home or Self Care 05/29/2023 10:15 AM DRILL SHARPENER Appointment Department of Radiology, [facility], in [place], [place] [address] [place] [phone] Mónica Portillo APRN, Kassandra.N.P., M.S. [address] [place] [phone] 05/29/2023 1:00 PM DRILL SHARPENER Procedure visit Department of Urology in [place], [place] [address] [place] [phone] Mónica Portillo APRN, Kassandra.N.P., M.S. [address] [place] [phone] 05/29/2023 3:00 PM DRILL SHARPENER Education Division of Nephrology and Hypertension in [place], [place] [address] [place] [phone] Mónica Portillo APRN, C.N.P., M.S. [address] [place] [phone] Sandeep Galicia R.N. [address] [place] [phone] 05/29/2023 4:00 PM DRILL SHARPENER Comprehensive Visit Division of Nephrology and Hypertension in [place], [place] [address] [place] [phone] Sera Casiano M.D., Ph.D. [address] [place] [phone] 06/15/2023 2:00 PM DRILL SHARPENER Ancillary Procedure Department of Ophthalmology in [place], [place] [address] [place] [phone] Justin Bunch M.D. [address] [place] [phone] 06/15/2023 2:30 PM DRILL SHARPENER Ancillary Procedure Department of Ophthalmology in [address] [phone] Justin Bunch M.D. [address] [place] [phone] 06/15/2023 2:45 PM DRILL SHARPENER Office Visit Department of Ophthalmology in [address] [phone] Justin Bunch M.D. [address] [place] [phone] documented as of this encounter Visit Diagnoses Not on filedocumented in this encounter Additional Health Concerns Assessment Noted Time PHQ-9 Depression Total Score: 4 06/06/19 23 2:04 PM DRILL SHARPENER documented as of this encounter Care Teams Auto Body Man Relationship Specialty Start Date End Date Clover Delaney M.D. [address] [place] [phone] PCP - General Internal Medicine 11/23/17 documented as of this encounter
--- OUTSIDE RECORDS SUMMARY | 2023-05-05 12:02 | XMS_ITS | Encounter Summary ---
Author Name Unknown Organization [facility] Address [address] [place] [address] Care Team Providers Care Pulper Operator Name Role Phone Clover Delaney M.D. Primary Care Provider +1- [phone] Reason for Visit * Reason Comments Injections aranesp * Episode Based Medications (Routine) - Pending Review Specialty Diagnoses / Procedures Referred By Yenny t Referred To Contact Diagnoses Malignant Neoplasm Of Transverse Colon (HCC) Anemia Of Chronic Renal Disease Procedures [place] DARBEPOETIN KERRI, NON-ESRD [place] DARBEPOETIN KERRI, ESRD USE Mónica Portillo APRN, C.N.P., M.S. [address] [place] [phone] [facility] Region Referral ID Status Reason Start Date Expiration Date V isits Requested Visits Authorized [id number] Pending Review 09/03/2022 09/03/2023 12 12 Encounter Details Date Type Department Care Team (Late st Contact Info) Description 10/03/2022 12:00 PM CDT Infusion Department of Infusion Therapy in [address] [phone] Mónica Portillo APRN, C.N.P., M.S. [address] [place] [phone] Anemia Of Chronic Renal Disease (Primary Dx) [...] often do you attend chur ch or cheondoism services? Never 07/28/2022 Do you belong to [...] Answer Date Recorded PHQ-2 Score 0 06/06/2022 [facility] of Occupat ional Health - Occupational [...] place to sleep or slept in a long-term (including now)? No 07/28/2022 Depression Answer Date [...] Sex Assigned at Male 05/13/2021 10:11 AM ELECTRONICS DETAIL DRAFTSPERSON Gender Identity Male 11/02/2017 7:22 PM CDT Sexual Orientation Straight 11/02/2017 7: 22 PM CDT documented as of this encounter Last Filed Vital Signs Vital Sign Reading Time Taken Comments Blood Pressure - - Pulse 47 10/03/2022 12:10 PM CDT Temperature 36 ??C (96.8 ??F) 10/03/2022 12:10 PM CDT Respiratory Rate 18 10/03/2022 12:10 PM CDT Oxygen Saturation 98% 10/03/2022 12:10 PM CDT Inhaled Oxygen Concentration - - Weight - - Height - - Body Mass Index - - documented in this encounter Plan of Treatment Upcoming Encounters Date Type Department Care Team (Latest Contact Info) Description 05/28/2023 10:00 AM ELECTRONICS DETAIL DRAFTSPERSON Appointment Department of Laboratory Medicine in [place] [address] [place] [phone] Mónica Portillo APRN, C.N.P., M.S. [address] [place] [phone] 05/28/2023 10:10 AM ELECTRONICS DETAIL DRAFTSPERSON Appointment Department of Laboratory Medicine in [place], [place] [address] [place] [phone] Mónica Portillo APRN, C.N.P., M.S. [address] [place] [phone] 05/29/2023 8:00 AM ELECTRONICS DETAIL DRAFTSPERSON Office Visit Department of Community Internal Medicine in [place], [place] [address] [place] [address] Clover Delaney M.D. 701 [place] [phone] Discharge Disposition: Home or Self Care 05/29/2023 10:15 AM ELECTRONICS DETAIL DRAFTSPERSON Appointment Department of Radiology, [facility] in [place], [place] [address] [place] [address] Mónica Portillo APRN, C.N.P., M.S. [address] [place] [phone] 05/29/2023 1:00 PM ELECTRONICS DETAIL DRAFTSPERSON Procedure visit Department of Urology in [place], [place] [address] [place] [phone] Mónica Portillo APRN, C.N.P., M.S. [address] [place] [phone] 05/29/2023 3:00 PM ELECTRONICS DETAIL DRAFTSPERSON Education Division of Nephrology and Hypertension in [place], [place] [address] [place] [phone] Mónica Portillo APRN, C.N.P., M.S. [address] [place] [phone] Sandeep Galicia R.N. [address] [place] [phone] 05/29/2023 4:00 PM ELECTRONICS DETAIL DRAFTSPERSON Comprehensive Visit Division of Nephrology and Hypertension in [place], [place] [address] [place] [phone] Sera Casiano M.D., Ph.D. [address] [place] [phone] 06/15/2023 2:00 PM ELECTRONICS DETAIL DRAFTSPERSON Ancillary Procedure Department of Ophthalmology in [place], [place] [address] [place] [address] Justin Bunch M.D. [address] [place] [phone] 06/15/2023 2:30 PM ELECTRONICS DETAIL DRAFTSPERSON Ancillary Procedure Department of Ophthalmology in [place], [place] [address] [place] [phone] Justin Bunch M.D. [address] [place] [phone] 06/15/2023 2:45 PM ELECTRONICS DETAIL DRAFTSPERSON Office Visit Department of Ophthalmology in [place], [place] [address] [place] [phone] Justin Bunch M.D. 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 [address] [place] [phone] PCP - General Internal Medicine 11/23/17 documented as of this encounter
--- OUTSIDE RECORDS SUMMARY | 2023-05-05 12:02 | XMS_ITS | Encounter Summary ---
Author Name Unknown Organization [facility] Address [address] [place] [address] Care Team Providers Care Radiology Services Manager Name Role Phone Clover Delaney M.D. Primary Care Provider +1- [phone] Reason for Visit * Episode Based Medications (Routine) - Pending Review Specialty Diagnoses / Procedures Referred By Contanthony t Referred To Contact Diagnoses Malignant Neoplasm Of Transverse Colon (HCC) Anemia Of Chronic Renal Disease Procedures [place] DARBEPOETIN KERRI, NON-ESRD [place] DARBEPOETIN KERRI, ESRD USE Mónica Portillo APRN, C.N.P., M.S. [address] [place] [phone] [facility] Region Referral ID Status Reason Start Date Expiration Date V isits Requested Visits Authorized [id number] Pending Review 09/03/2022 09/03/2023 12 12 Encounter Details Date Type Department Care Team (Late st Contact Info) Description 10/31/2022 12:00 PM CDT Infusion Department of Infusion Therapy in [address] [phone] Mónica Portillo APRN, C.N.P., M.S. [address] [place] [phone] Anemia Of Chronic Renal Disease (Primary Dx) [...] often do you attend chur ch or sikhism services? Never 07/28/2022 Do you belong to [...] 0 06/06/2022 [facility] of Occupat ional Health - [...] Sex Assigned at Male 05/13/2021 10:11 AM WORSHIP PASTOR Gender Identity Male 11/02/2017 7:22 PM CDT Sexual Orientation Straight 11/02/2017 7: 22 PM CDT documented as of this encounter Last Filed Vital Signs Vital Sign Reading Time Taken Comments Blood Pressure 10/31/2022 11:56 AM CDT patient states this is normal pressure for him. Patient has no verbal or non verbal complaints of hypertension Pulse 49 10/31/2022 11:56 AM CDT Temperature 36 ??C (96.8 ??F) 10/31/2022 11: 56 AM CDT Respiratory Rate 18 10/31/2022 11:5 6 AM CDT Oxygen Saturation 95% 10/31/2022 11: 56 AM CDT Inhaled Oxygen Concentration - - Weight - - Height - - Body Mass Index - - documented in this encounter Plan of Treatment Upcoming Encounters Date Type Department Care Team (Latest Contact Info) Description 05/28/2023 10:00 AM WORSHIP PASTOR Appointment Department of Laboratory Medicine in [place] [address] [place] [phone] Mónica Portillo APRN, C.N.P., M.S. [address] [place] [phone] 05/28/2023 10:10 AM WORSHIP PASTOR Appointment Department of Laboratory Medicine in [place] [address] [place] [phone] Mónica Portillo APRN, C.N.P., M.S. [address] [place] [phone] 05/29/2023 8:00 AM WORSHIP PASTOR Office Visit Department of Community Internal Medicine in [place], [place] [address] [place] [address] Clover Delaney M.D. [address] [place] [address] Discharge Disposition: Home or Self Care 05/29/2023 10:15 AM WORSHIP PASTOR Appointment Department of Radiology, [facility] in [place], [place] [address] [place] [address] Mónica Portillo APRN, C.N.P., M.S. [address] [place] [phone] 05/29/2023 1:00 PM WORSHIP PASTOR Procedure visit Department of Urology in [place], [place] [address] [place] [phone] Mónica Portillo APRN, C.N.P., M.S. [address] [place] [phone] 05/29/2023 3:00 PM WORSHIP PASTOR Education Division of Nephrology and Hypertension in [place], [place] [address] [place] [phone] Mónica Portillo APRN, C.N.P., M.S. [address] [place] [phone] Sandeep Galicia R.N. [address] [place] [phone] 05/29/2023 4:00 PM WORSHIP PASTOR Comprehensive Visit Division of Nephrology and Hypertension in [place], [place] [address] [place] [phone] Sera Casiano M.D., Ph.D. [address] [place] [phone] 06/15/2023 2:00 PM WORSHIP PASTOR Ancillary Procedure Department of Ophthalmology in [place], [place] [address] [place] [phone] Justin Bunch M.D. [address] [place] [phone] 06/15/2023 2:30 PM WORSHIP PASTOR Ancillary Procedure Department of Ophthalmology in [place], [place] [address] [place] [phone] Justin Bunch M.D. [address] [place] [phone] 06/15/2023 2:45 PM WORSHIP PASTOR Office Visit Department of Ophthalmology in [place], [place] [address] [place] [phone] Justin Bunch M.D. 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 [address] [place] [phone] PCP - General Internal Medicine 11/23/17 documented as of this encounter
--- OUTSIDE RECORDS SUMMARY | 2023-05-05 12:02 | XMS_ITS | Encounter Summary ---
Author Name Unknown Organization [facility] Address [address] [place] [address] Care Team Providers Care Technical Services Consultant Name Role Phone Clover Delaney M.D. Primary Care Provider +1- [phone] Encounter Details Date Type Department Care Team (Latest Contact Info) Description 10/31/2022 11:26 AM CDT - 10/31/2022 11:59 PM CDT Hospital Encounter Department of Laboratory Medicine in [address] [phone] Clover Delaney M.D. [address] [place] [phone] Anemia Discharge Disposition: Home or Self Care Social [...] often do you attend chur ch or mormonism services? Never 07/28/2022 Do you belong to [...] Answer Date Recorded PHQ-2 Score 0 06/06/2022 [facility] [place] of Occupat ional Health - Occupational Stress [...] Sex Assigned at Male 05/13/2021 10:11 AM PRICING STRATEGIST Gender Identity Male 11/02/2017 7:22 PM CDT [...] mouth as needed. 0 miscellaneous medical supply [facility] CPAP Supplies See Instructions, CPAP machine, mask 1 ea x 4 refills, headgear 1 ea x 2 refills, tubing 1 ea x 4 refills, filters 2 ea per month, tub 1 ea x 2 refills, mask seal 1 ea x 2 refills DX G47.33, length of need 99, 1 each, 0 Refill(s) 0 10/20/2016 miscellaneous medical supply [facility] Head Gear for CPAP Machine See Instructions, fax to patient at [phone], 1 each 0 01/17/2014 MULTIVITAMIN ORAL Daily Multiple Vitamins See Instructions, Take 1 tablet by mouth daily. 0 07/23/2013 multivitamin-eye (PRESERVISION LUTEIN) 226 mg-90 mg-5 mg-0.8 mg capsule Take 2 capsules by mouth daily. 0 ONETOUCH DELICA LANCETS 33 gauge [facility] 3 08/02/2018 OneTouch Ultra Test stripsIndications:Diab etes Mellitus Type 2 (HCC) Use to test once daily 100 strip 3 12/31/2021 pen needle, diabetic (UltiCare Pen Needle) 32 gauge x 1/4 needle 1 Injection daily. 100 each 3 04/07/2022 predniSONE (DELTASONE) 5 mg tablet TAKE ONE [...] Paez's handout 5 mL 0 07/04/2022 11/06/2022 torsemide (DEMADEX) 20 mg tablet TAKE ONE TABLET BY MOUTH ONE TIME DAILY 90 tablet 3 09/03/2022 01/16/2023 documented as of this encounter Plan of Treatment Upcoming Encounters Date Type Department Care Team (Latest Contact Info) Description 05/28/2023 10:00 AM PRICING STRATEGIST Appointment Department of Laboratory Medicine in [address] [place] [phone] Mónica Portillo APRN, C.N.P., M.S. [address] [place] [address] 05/28/2023 10:10 AM PRICING STRATEGIST Appointment Department of Laboratory Medicine in [place], [place] [address] [place] [phone] Mónica Portillo APRN, C.N.P., M.S. [address] [place] [phone] 05/29/2023 8:00 AM PRICING STRATEGIST Office Visit Department of Community Internal Medicine in [place], [place] [address] [place] [phone] Clover Delaney M.D. [address] [place] [phone] Discharge Disposition: Home or Self Care 05/29/2023 10:15 AM PRICING STRATEGIST Appointment Department of Radiology, [facility] in [place], [place] [address] [place] [phone] Mónica Portillo APRN, C.N.P., M.S. [address] [place] [phone] 05/29/2023 1:00 PM PRICING STRATEGIST Procedure visit Department of Urology in [place], [place] [address] [place] [phone] Mónica Portillo APRN, C.N.P., M.S. [address] [place] [phone] 05/29/2023 3:00 PM PRICING STRATEGIST Education Division of Nephrology and Hypertension in [place], [place] [address] [place] [phone] Mónica Portillo APRN, C.N.P., M.S. [address] [place] [phone] Sandeep Galicia R.N. [address] [place] [phone] 05/29/2023 4:00 PM PRICING STRATEGIST Comprehensive Visit Division of Nephrology and Hypertension in [place], [place] [address] [place] [phone] Sera Casiano M.D., Ph.D. [address] [place] [phone] 06/15/2023 2:00 PM PRICING STRATEGIST Ancillary Procedure Department of Ophthalmology in [place], [place] [address] [place] [phone] Justin Bunch M.D. [address] [place] [phone] 06/15/2023 2:30 PM PRICING STRATEGIST Ancillary Procedure Department of Ophthalmology in [place], [place] [address] [place] [phone] Justin Bunch M.D. [address] [place] [phone] 06/15/2023 2:45 PM PRICING STRATEGIST Office Visit Department of Ophthalmology in [place], [place] [address] [place] [phone] Justin Bunch M.D. [address] [place] [phone] documented as of this encounter Procedures Procedure Name Priority Date/Time Associated Diagnosis Comments CBC WITH DIFFERENTIAL, B Routine 10/31/2022 11:39 AM CDT Anemia documented in this encounter Results * (ABNORMAL) CBC with Differential, Blood (10/31/2022 11:39 AM CDT) Hemoglobin 9.2(L) 13.2 - 16.6 g/dL 10/31/2022 11:48 AM CDT CNFL Hematocrit 28.9(L) 38.3 - 48.6 % 10/31/2022 11:48 AM CDT CNFL Erythrocytes 3.04(L) 4.35 - 5.65 x10(12)/L 10/31/2022 11:48 AM CDT CNFL MCV 95.1 78.2 - 97.9 fL 10/31/2022 11:48 AM CDT CNFL RBC Distrib Width 14.7(H) 11.8 - 14.5 % 10/31/2022 11:48 AM CDT CNFL Platelet Count 159 135 - 317 x10(9)/L 10/31/2022 11:48 AM CDT CNFL Leukocytes 9.6 3.4 - 9.6 x10(9)/L 10/31/2022 11:48 AM CDT CNFL Neutrophils 8.31(H) 1.56 - 6.45 x10(9)/L 10/31/2022 11:48 AM CDT CNFL Lymphocytes 0.60(L) 0.95 - 3.07 x10(9)/L 10/31/2022 11:48 AM CDT CNFL Monocytes 0.55 0.26 - 0.81 x10(9)/L 10/31/2022 11:48 AM CDT CNFL Eosinophils 0.13 0.03 - 0.48 x10(9)/L 10/31/2022 11:48 AM CDT CNFL Basophils <0.04 0.01 - 0.08 x10(9)/L 10/31/2022 11:48 AM CDT CNFL Blood (Blood, Venous) 10/31/2022 11:39 AM CDT 10/31/2022 11:41 AM CDT Clover Delaney M.D. LAB BLOOD ADD-ON [facility] [address] [place] [phone], [facility] CNFL [facility] in [address] [address] documented in this encounter Visit Diagnoses Diagnosis Anemia documented in this encounter Additional Health Concerns Assessment Noted Time PHQ-9 Depression Total Score: 4 06/06/19 23 2:04 PM PRICING STRATEGIST documented as of this encounter Care Teams Technical Services Consultant Relationship Specialty Start Date End Date Clover Delaney M.D. [address] [place] [phone] PCP - General Internal Medicine 11/23/17 documented as of this encounter
--- OUTSIDE RECORDS SUMMARY | 2023-05-05 12:02 | XMS_ITS | Encounter Summary ---
Author Name Unknown Organization [facility] Address [address] [place] [address] Care Team Providers Care Hazmat Technician Name Role Phone Clover Delaney M.D. Primary Care Provider +1- [phone] Encounter Details Date Type Department Care Team (Late st Contact Info) Description 10/01/2022 Orders Only [facility] PCP [facility] NAVT Clvoer Delaney M.D. [address] [place] [phone] Social History Tobacco Use Types [...] How often do you attend chur or amish services? Never 07/28/2022 Do you [...] Answer Date Recorded PHQ-2 Score 0 06/06/2022 [facility] of Occupat ional Health - Occupational [...] Sex Assigned at Male 05/13/2021 10:11 AM DEPARTMENT HEAD JUNIOR COLLEGE Gender Identity Male 11/02/2017 7:22 PM CDT Sexual Orientation Straight 11/02/2017 7: 22 PM CDT documented as of this encounter Plan of Treatment Upcoming Encounters Date Type Department Care Team (Latest Contact Info) Description 05/28/2023 10:00 AM DEPARTMENT HEAD JUNIOR COLLEGE Appointment Department of Laboratory Medicine in [place] [address] [place] [phone] Mónica Portillo APRN, Kassandra.N.P., M.S. [address] [place] [phone] 05/28/2023 10:10 AM DEPARTMENT HEAD JUNIOR COLLEGE Appointment Department of Laboratory Medicine in [place], [place] [address] [place] [phone] Mónica Portillo APRN, C.N.P., M.S. [address] [place] [phone] 05/29/2023 8:00 AM DEPARTMENT HEAD JUNIOR COLLEGE Office Visit Department of Community Internal Medicine in [place], [place] [address] [place] [phone] Clover Delaney M.D. [address] [place] [phone] Discharge Disposition: Home or Self Care 05/29/2023 10:15 AM DEPARTMENT HEAD JUNIOR COLLEGE Appointment Department of Radiology, [facility], in [place], [place] [address] [place] [phone] Mónica Portillo APRN, Kassandra.N.P., M.S. [address] [place] [phone] 05/29/2023 1:00 PM DEPARTMENT HEAD JUNIOR COLLEGE Procedure visit Department of Urology in [place], [place] [address] [place] [phone] Mónica Portillo APRN, Kassandra.N.P., M.S. [address] [place] [phone] 05/29/2023 3:00 PM DEPARTMENT HEAD JUNIOR COLLEGE Education Division of Nephrology and Hypertension in [place], [place] [address] [place] [phone] Mónica Portillo APRN, Kassandra.N.P., M.S. [address] [place] [phone] Sandeep Galicia R.N. [address] [place] [phone] 05/29/2023 4:00 PM DEPARTMENT HEAD JUNIOR COLLEGE Comprehensive Visit Division of Nephrology and Hypertension in [place], [place] [address] [place] [phone] Sera Casiano M.D., Ph.D. [address] [place] [phone] 06/15/2023 2:00 PM DEPARTMENT HEAD JUNIOR COLLEGE Ancillary Procedure Department of Ophthalmology in [address] [phone] Justin Bunch M.D. [address] [place] [phone] 06/15/2023 2:30 PM DEPARTMENT HEAD JUNIOR COLLEGE Ancillary Procedure Department of Ophthalmology in [address] [phone] Justin Bunch M.D. [address] [place] [phone] 06/15/2023 2:45 PM DEPARTMENT HEAD JUNIOR COLLEGE Office Visit Department of Ophthalmology in [address] [phone] Justin Bunch M.D. [address] [place] [phone] documented as of this encounter Visit Diagnoses Not on filedocumented in this encounter Additional Health Concerns Assessment Noted Time PHQ-9 Depression Total Score: 4 06/06/19 23 2:04 PM DEPARTMENT HEAD JUNIOR COLLEGE documented as of this encounter Care Teams Hazmat Technician Relationship Specialty Start Date End Date Clover Delaney M.D. [address] [place] [phone] PCP - General Internal Medicine 11/23/17 documented as of this encounter
--- OUTSIDE RECORDS SUMMARY | 2023-05-05 12:02 | XMS_ITS | Encounter Summary ---
Author Name Unknown Organization [facility] Address [address] [place] [address] Care Team Providers Care Senior Policy Advisor Name Role Phone Clover Delaney M.D. Primary Care Provider +1- [phone] Reason for Visit * Reason Comments Med Refill Encounter Details Date Type Department Care Team (Late st Contact Info) Description 11/06/2022 Refill Department of Ophthalmology in [place], [place] [address] [place] [phone] Justin Bunch M.D. [address] [place] [phone] Med Refill Social History Tobacco Use Types [...] often do you attend chur ch or anabaptism services? Never 07/28/2022 Do you belong to any clubs o r organizations such as amish groups, unions, fraternal or athletic groups, or [...] Answer Date Recorded PHQ-2 Score 0 06/06/2022 [facility] [place] of Occupat ional Health - Occupational Stress [...] Assigned at Male 05/13/2021 10:11 AM BEAUTY DIRECTOR Gender Identity Male 11/02/2017 7:22 PM CDT Sexual Orientation Straight 11/02/2017 7: 22 PM CDT documented as of this encounter Miscellaneous Notes * Telephone Encounter - Cari Butcher - 11/06/2022 10:15 AM CDT Patient is leaving for vacation in about an hour. They are completely out of this medication. Last seen by Dr. Bunch on 09/12 Please send over medications if appropriate. documented in this encounter Plan of Treatment Upcoming Encounters Date Type Department Care Team (Latest Contact Info) Description 05/28/2023 10:00 AM BEAUTY DIRECTOR Appointment Department of Laboratory Medicine in [place] [address] [place] [phone] Mónica Portillo APRN, C.N.P., M.S. [address] [place] [phone] 05/28/2023 10:10 AM BEAUTY DIRECTOR Appointment Department of Laboratory Medicine in [place] [address] [place] [phone] Mónica Portillo APRN, C.N.P., M.S. [address] [place] [phone] 05/29/2023 8:00 AM BEAUTY DIRECTOR Office Visit Department of Community Internal Medicine in [place] [address] [place] [phone] Clover Delaney M.D. [address] [place] [phone] Discharge Disposition: Home or Self Care 05/29/2023 10:15 AM BEAUTY DIRECTOR Appointment Department of Radiology, [facility] in [place], [place] [address] [place] [phone] Mónica Portillo APRN, C.N.P., M.S. [address] [place] [phone] 05/29/2023 1:00 PM BEAUTY DIRECTOR Procedure visit Department of Urology in [place], [place] [address] [place] [phone] Mónica Portillo APRN, C.N.P., M.S. [address] [place] [phone] 05/29/2023 3:00 PM BEAUTY DIRECTOR Education Division of Nephrology and Hypertension in [place], [place] [address] [place] [phone] Mónica Portillo APRN, Kassandra.N.P., M.S. [address] [place] [phone] Sandeep Galicia R.NJosé Luis [address] [place] [phone] 05/29/2023 4:00 PM BEAUTY DIRECTOR Comprehensive Visit Division of Nephrology and Hypertension in [place], [place] [address] [place] [phone] Sera Casiano M.D., Ph.D. [address] [place] [phone] 06/15/2023 2:00 PM BEAUTY DIRECTOR Ancillary Procedure Department of Ophthalmology in [place], [place] [address] [place] [phone] Justin Bunch M.D. [address] [place] [phone] 06/15/2023 2:30 PM BEAUTY DIRECTOR Ancillary Procedure Department of Ophthalmology in [place], [place] [address] [place] [phone] Justin Bunch M.D. [address] [place] [phone] 06/15/2023 2:45 PM BEAUTY DIRECTOR Office Visit Department of Ophthalmology in [place], [place] [address] [place] [address] Justin Bunch M.D. [address] [place] [phone] documented as of this encounter Visit Diagnoses Not on filedocumented in this encounter Additional Health Concerns Assessment Noted Time PHQ-9 Depression Total Score: 4 06/06/19 23 2:04 PM BEAUTY DIRECTOR documented as of this encounter Care Teams Senior Policy Advisor Relationship Specialty Start Date End Date Clover Delaney M.D. [address] [place] [phone] PCP - General Internal Medicine 11/23/17 documented as of this encounter
--- OUTSIDE RECORDS SUMMARY | 2023-05-05 12:02 | XMS_ITS | Encounter Summary ---
Author Name Unknown Organization [facility] Address [address] [place] [address] Care Team Providers Care Ferris Wheel Attendant Name Role Phone Clover Delaney M.D. Primary Care Provider +1- [phone] Reason for Visit * Reason Comments Med Refill Encounter Details Date Type Department Care Team (Late st Contact Info) Description 10/21/2022 Refill Department of Family Medicine, [facility] [place], in [address] [place] [address] Clover Delaney M.D. [address] [place] [address] Med Refill Social History Tobacco [...] often do you attend chur ch or christian services? Never 07/28/2022 Do you belong to any clubs o r organizations such as presybeterian groups, unions, fraternal or athletic groups, or [...] Answer Date Recorded PHQ-2 Score 0 06/06/2022 [facility] [place] of Occupat ional Health - Occupational Stress [...] place to sleep or slept in a fci (including now)? No 07/28/2022 Depression Answer Date [...] Sex Assigned at Male 05/13/2021 10:11 AM SHIPPING ORDER CLERK Gender Identity Male 11/02/2017 7:22 PM CDT Sexual Orientation Straight 11/02/2017 7: 22 PM CDT documented as of this encounter Plan of Treatment Upcoming Encounters Date Type Department Care Team (Latest Contact Info) Description 05/28/2023 10:00 AM SHIPPING ORDER CLERK Appointment Department of Laboratory Medicine in [place] [address] [place] [phone] Mónica Portillo APRN, C.N.P., M.S. [address] [place] [phone] 05/28/2023 10:10 AM SHIPPING ORDER CLERK Appointment Department of Laboratory Medicine in [place], [place] [address] [place] [phone] Mónica Portillo APRN, C.N.P., M.S. [address] [place] [phone] 05/29/2023 8:00 AM SHIPPING ORDER CLERK Office Visit Department of Community Internal Medicine in [place] [address] [place] [phone] Clover Delaney M.D. [address] [place] [phone] Discharge Disposition: Home or Self Care 05/29/2023 10:15 AM SHIPPING ORDER CLERK Appointment Department of Radiology, [facility], in [place], [place] [address] [place] [phone] Mónica Portillo APRN, C.N.P., M.S. [address] [place] [phone] 05/29/2023 1:00 PM SHIPPING ORDER CLERK Procedure visit Department of Urology in [place], [place] [address] [place] [phone] Mónica Portillo APRN, Kassandra.N.P., M.S. [address] [place] [phone] 05/29/2023 3:00 PM SHIPPING ORDER CLERK Education Division of Nephrology and Hypertension in [place], [place] [address] [place] [phone] Mónica Portillo APRN, C.N.P., M.S. [address] [place] [phone] Sandeep Galicia R.N. [address] [place] [phone] 05/29/2023 4:00 PM SHIPPING ORDER CLERK Comprehensive Visit Division of Nephrology and Hypertension in [place], [place] [address] [place] [phone] Sera Casiano M.D., Ph.D. [address] [place] [phone] 06/15/2023 2:00 PM SHIPPING ORDER CLERK Ancillary Procedure Department of Ophthalmology in [place], [place] [address] [place] [phone] Justin Bunch M.D. [address] [place] [phone] 06/15/2023 2:30 PM SHIPPING ORDER CLERK Ancillary Procedure Department of Ophthalmology in [address] [phone] Justin Bunch M.D. [address] [place] [phone] 06/15/2023 2:45 PM SHIPPING ORDER CLERK Office Visit Department of Ophthalmology in [address] [phone] Justin Bunch M.D. [address] [place] [phone] documented as of this encounter Visit Diagnoses Not on filedocumented in this encounter Additional Health Concerns Assessment Noted Time PHQ-9 Depression Total Score: 4 06/06/19 23 2:04 PM SHIPPING ORDER CLERK documented as of this encounter Care Teams Ferris Wheel Attendant Relationship Specialty Start Date End Date Clover Delaney M.D. [address] [place] [phone] PCP - General Internal Medicine 11/23/17 documented as of this encounter
--- OUTSIDE RECORDS SUMMARY | 2023-05-05 12:02 | XMS_ITS | Encounter Summary ---
Author Name Unknown Organization [facility] Address [address] [place] [address] Care Team Providers Care Meat Cutting Teacher Name Role Phone Clover Delaney M.D. Primary Care Provider [phone]- [phone] Encounter Details Date Type Department Care Team (Late st Contact Info) Description 09/08/2022 Ancillary Procedure Department of Ophthalmology Social History [...] often do you attend chur ch or denominational services? Never 07/28/2022 Do you belong to [...] Answer Date Recorded PHQ-2 Score 0 06/06/2022 [facility] of Occupat ional Health - Occupational [...] Sex Assigned at Male 05/13/2021 10:11 AM BRAID FOLDER Gender Identity Male 11/02/2017 7:22 PM CDT Sexual Orientation Straight 11/02/2017 7: 22 PM CDT documented as of this encounter Plan of Treatment Upcoming Encounters Date Type Department Care Team (Latest Contact Info) Description 05/28/2023 10:00 AM BRAID FOLDER Appointment Department of Laboratory Medicine in [address] [place] [address] Mónica Portillo APRN, C.N.P., M.S. [address] [place] [phone] 05/28/2023 10:10 AM BRAID FOLDER Appointment Department of Laboratory Medicine in [place], [place] [address] [place] [phone] Mónica Portillo APRN, C.N.P., M.S. [address] [place] [phone] 05/29/2023 8:00 AM BRAID FOLDER Office Visit Department of Community Internal Medicine in [place], [place] [address] [place] [phone] Clover Delaney M.D. [address] [place] [phone] Discharge Disposition: Home or Self Care 05/29/2023 10:15 AM BRAID FOLDER Appointment Department of Radiology, [facility], in [place], [place] [address] [place] [phone] Mónica Portillo APRN, C.N.P., M.S. [address] [place] [phone] 05/29/2023 1:00 PM BRAID FOLDER Procedure visit Department of Urology in [place], [place] [address] [place] [phone] Mónica Portillo APRN, C.N.P., M.S. [address] [place] [phone] 05/29/2023 3:00 PM BRAID FOLDER Education Division of Nephrology and Hypertension in [place], [place] [address] [place] [phone] Mónica Portillo APRN, C.N.P., M.S. [address] [place] [phone] Sandeep Galicia R.N. [address] [place] [phone] 05/29/2023 4:00 PM BRAID FOLDER Comprehensive Visit Division of Nephrology and Hypertension in [place], [place] [address] [place] [phone] Sera Casiano M.D., Ph.D. [address] [place] [phone] 06/15/2023 2:00 PM BRAID FOLDER Ancillary Procedure Department of Ophthalmology in [place], [place] [address] [place] [phone] Justin Bunch M.D. [address] [place] [phone] 06/15/2023 2:30 PM BRAID FOLDER Ancillary Procedure Department of Ophthalmology in [place], [place] [address] [place] [phone] Justin Bunch M.D. [address] [place] [phone] 06/15/2023 2:45 PM BRAID FOLDER Office Visit Department of Ophthalmology in [place], [place] [address] [place] [phone] Justin Bunch M.D. [address] [place] [phone] documented as of this encounter Procedures Procedure Name Priority Date/Time Associated Diagnosis Comments OPHTHALMOLOGY IMAGE EXAM Routine 09/08/2022 12:00 AM CDT documented in this encounter Results * Eyes Spectralis OCT-Ophthalmology Image Exam (09/08/2022 12:00 AM CDT) Narrative IIIN - 09/08/2022 4:02 PM CDT This order has been created and auto-finalized [...] Total Score: 4 06/06/19 23 2:04 PM BRAID FOLDER documented as of this encounter Care Teams Meat Cutting Teacher Relationship Specialty Start Date End Date Clover Delaney M.D. [address] [place] [phone] PCP - General Internal Medicine 11/23/17 documented as of this encounter
--- OUTSIDE RECORDS SUMMARY | 2023-05-05 12:03 | XMS_ITS | Encounter Summary ---
Author Name Unknown Organization [facility] Address [address] [place] [address] Care Team Providers Care Supervisor [place] Name Role Phone Clover Delaney M.D. Primary Care Provider [phone] Reason for Referral * Outpatient (Routine) - Authorized Specialty Diagnoses / Procedures Referred By Yenny hunter Referred To Contact Sleep Medicine Diagnoses Obstructive Sleep Apnea Adult Clover Delaney M.D. [address] [place] [phone] [address] Phone: [phone] Referral ID Status Reason Start Date Expiration Date Visits Requested Visits Authorized [id number] Authorized Patient Preference 09/08/2022 09/08/2023 1 1 Reason for Visit * Reason Comments Shortness of Breath * Appointment Request (Routine) - Closed Specialty Diagnoses / Procedures Referred By Yenny hunter Referred To Contact Family Medicine Referral ID Status Reason Start Date Expiration Date Visits Re quested Visits Authorized [id number] Closed 09/02/2022 09/02/2023 1 1 Encounter Details Date Type Department Care Team (Latest Contact Info) Description 09/05/2022 2:00 PM CDT Office Visit Department of Community Internal Medicine in [place], [place] [address] [place] [address] [place] [address] Clover Delaney M.D. 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 Never 07/28/2022 Do you belong to any clubs o r organizations such as religion groups, unions, fraternal or athletic groups, or [...] Answer Date Recorded PHQ-2 Score 0 06/06/2022 [facility] - Occupational [...] Assigned at Male 05/13/2021 10:11 AM HARVEST FIELD TICKETER Gender Identity Male 11/02/2017 7:22 PM CDT Sexual Orientation Straight 11/02/2017 7: 22 PM CDT documented as of this encounter Last Filed Vital Signs Vital Sign Reading Time Taken Comments Blood Pressure 214/81 09/05/2022 1:55 PM CDT Pulse 58 09/05/2022 1:55 PM CDT Temperature 36.3 ??C (97.3 ??F) 09/05/2022 1 :55 PM CDT Respiratory Rate - - Oxygen Saturation 96% 09/05/2022 1:5 5 PM CDT room are at rest; 92% with exertion Inhaled Oxygen Concentration - - Weight 157 kg (346 lb 9 oz) 09/05/2022 1:55 PM CDT Height - - Body Mass Index 50.18 03/31/2022 2:55 PM HARVEST FIELD TICKETER documented in this encounter Progress Notes * Clover Delaney M.D. - 09/05/2022 2:00 PM CDT SUBJECTIVE CHIEF COMPLAINT / REASON FOR VISIT Philip Patel is a 76 y.o. male who presents for evaluation of Shortness of Breath. HISTORY OF PRESENT ILLNESS Here for evaluation of dyspnea on exertion, noted more when he was on a trip to [facility]] last month that required more walking. 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 He was prescribed darbepoetin infusions and had first Feraheme infusion on 09/04/22 with no change in symptoms yet. He is scheduled for second Feraheme infusion next week. Monitors home blood pressure daily and readings have been 140s/70s, (this morning was 144/73). Using Brionna he has had significantly better BG control. He is down to 20 units glargine daily and FBG Is under 90, during the day in the 180 postprandial. He does have some delay in getting his eyes adjusted in the morning, maybe 15 minutes. Uses CPAP religiously. The following portions of the patient's history were reviewed and updated as appropriate: allergies, current medications, family history, medical history, social history, surgical history, and problem list. Social History Tobacco Use Smoking status: Former Packs/day: 0.00 Years: 19.00 Pack years: 0.00 Types: Cigarettes Start date: 1961 Quit date: 12/26/1980 Years since quittin.7 Smokeless tobacco: Never Vaping Use Vaping Use: never used Substance Use Topics Alcohol use: Yes Comment: Maybe one drink per month Drug use: No Allergies Allergen Reactions Epinephrine Palpitations Tachycardia Penicillins Itching and Rash Current Outpatient Medications Medication Sig aspirin 81 mg chewable tablet Chew 1 tablet (81 mg total) daily. carvediloL (COREG) 12.5 mg tablet TAKE ONE TABLET BY MOUTH TWICE A DAY WITH MEALS cholecalciferol (VITAMIN D3) 50 mcg (2,000 Unit) tablet Take 50 mcg by mouth daily. cyanocobalamin (VITAMIN B12) 1,000 mcg tablet Take 1,000 mcg by mouth daily. DME CPAP DME Order flash glucose scanning reader (SendMeHome.comSTYLE BRIONNA) misc 1 each (1 Device total) every 14 (fourteen) days. flash glucose sensor (FreeStyle Brionna 2 Sensor) kit Inject 1 each (1 kit total) under the skin every 14 (fourteen) days. glipiZIDE (GLUCOTROL XL) 10 mg 24 hr tablet Take 1 tablet (10 mg total) by mouth daily. glipiZIDE (GLUCOTROL XL) 5 mg 24 hr tablet Take 1 tablet (5 mg total) by mouth daily with breakfast. With 10mg for total 15mg glipizide XL daily (Patient taking differently: Take 10 mg by mouth dailywith breakfast. With 10mg for total 20mg glipizide XL daily) insulin glargine (Lantus Solostar U-100 Insulin) 100 unit/mL (3 mL) injection Inject 26 Units underthe skin at bedtime. (Patient taking differently: Inject 22 Units under the skin at bedtime.) irbesartan (AVAPRO) 75 mg tablet Take 1 tablet (75 mg total) by mouth daily. iron,carbonyl-vitamin C (VITRON-C) 65 mg iron- [address] tablet Take 65 mg of iron by mouth daily. Do not crush or chew. loperamide (IMODIUM A-D) 2 mg tablet Take 2 mg by mouth as needed. miscellaneous medical supply [facility] CPAP Supplies See Instructions, CPAP machine, mask 1 ea x 4 refills, headgear 1 ea x 2 refills, tubing 1 ea x 4 refills, filters 2 ea per month, tub 1 ea x 2 refills, mask seal 1 ea x 2 refills DX G47.33, length of need 99, 1 each, 0 Refill(s) [facility] Head Gear for CPAP Machine See Instructions, fax to patient at [phone], 1 each MULTIVITAMIN ORAL Daily Multiple Vitamins See Instructions, Take 1 tablet by mouth daily. multivitamin-eye (PRESERVISION LUTEIN) 226 mg-90 mg-5 mg-0.8 mg capsule Take 2 capsules by mouth daily. ONETOUCH DELICA LANCETS 33 gauge [facility] OneTouch Ultra Test strips Use to test once daily pen needle, diabetic (UltiCare Pen Needle) 32 gauge x 1/4 needle 1 Injection daily. prednisoLONE acetate (PRED FORTE) 1 % ophthalmic suspension Follow prednisolone taper in left eye per Dr. Paez's handout predniSONE (DELTASONE) 5 mg tablet TAKE ONE TABLET BY MOUTH ONE TIME DAILY torsemide (DEMADEX) 20 mg tablet TAKE ONE TABLET BY MOUTH ONE TIME DAILY UltiCare Pen Needle 31 gauge x 1/4 needle Use to inject insulin daily OBJECTIVE PHYSICAL EXAMINATION BP (!) 214/81 (BP Location: Left arm, Patient Position: Sitting, Cuff Size: Large) Pulse (!) 58 Temp 36.3 ??C (Temporal) Wt (!) 157 kg SpO2 96% Comment: room are at rest; 92% with exertion BMI 50.18 kg/m?? Body mass index is 50.18 kg/m??. General: Alert and in no acute distress Neck: Supple without lymphadenopathy or bruit Respiratory: Effort is easy, lung sounds are clear to auscultation with no wheezes or crackles Cardiovascular: S1 & S2 are present, normal rate and rhythm, no murmur, no significant edema Musculoskeletal: Grossly intact, no deformities are noted, uses walking stick Skin: Normal color, temperature and moisture, no rashes or lesions are noted Neuro: Face symmetric. Speech and gait normal Psych: Behavior, mood, affect, cognition and insight are all appropriate DIAGNOSTICS Lab Results Component Value Date WBC 9.2 09/01/2022 HGB 8.9 (L) 09/01/2022 HCT 28.7 (L) 09/01/2022 MCV 96.0 09/01/2022 PLT 202 09/01/2022 Results for orders placed or performed during the hospital encounter of 09/01/22 Urinalysis with Microscopic: Urine, Midstream Result Value Ref Range Source Urine, Urine, Midstream Clarity Clear Clear Color Yellow Blood Negative Negative Nitrite Negative Negative Leukocyte Esterase Negative Negative Protein >=300 (A) mg/dL Glucose Negative Negative mg/dL Ketone Negative Negative mg/dL Bilirubin Negative Negative pH 5.5 5.0 - 8.0 Specific [place] 1.010 1.001 - 1.035 Urobilinogen 0.2 0.2 - 1.0 mg/dL White Blood Cells None Seen /hpf Red Blood Cells Occ-2 0 - 2 /hpf Hyaline Casts 1-3 /lpf Albumin, Random, Urine Result Value Ref Range Microalbumin 1436.4 mg/L Creatinine 42 mg/dL Albumin/Creatinine Ratio 3420 (H) <17 mg/g Lab Results Component Value Date HGBA1C 8.3 (H) 06/06/2022 ASSESSMENT / PLAN #1 Dyspnea On Exertion Multifactorial. His resting O2 was 96% today and 92% with exertion. He will get iron infusions and darbepoetin per nephrology. He will work on getting more daily activity. He will be referred to [facility] for evaluation of his CPAP/KIMBER therapy (see below). #2 Diabetes Mellitus Type 2 With Diabetic Neuropathy Hyperglycemic (HCC) BG better controlled. Discussed GLP1-RA like Ozempic per recommendation from nephrology. This wouldbe a good option for diabetes control in context of advanced kidney disease and morbid obesity. He has no absolute contraindications including no personal history of pancreatitis, or have had a medullary thyroid cancer, or have a family history of medullary thyroid cancer or MEN-2. 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 He cannot have CT or MRI with contrast due to his renal disease, so the only other available evaluation would be endoscopic ultrasound (with possible FNA if accessible). He would like to consider the GLP1-RA and read about it some more before deciding. Discussed that if he agrees to proceed, we would order and see whether insurance will cover, that we would start with low dose and increase each month or as tolerated, monitor for side effects, and likely decrease glipizide and/or insulin glargine. He will let me know if he'd like referral to pancreas clinic or if he would like to proceed with Ozempic. #3 Hypertension And Chronic Kidney Disease Stage 4 (HCC) Has been mildly high with goal <130/80. He is not willing to increase irbesartan yet, but that would be the next planned change if persistently above goal. Declined repeat blood pressure in officetoday since checking at home daily. Overview: Was doing well on lisinopril, until INDIO and hyperkalemia. Did not tolerate CCB. #4 Anemia Iron Deficiency As above, iron infusions and darbepoetin. 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 Appreciate nephrology assessment and plan. #6 Obstructive Sleep Apnea Adult Compliant with CPAP and has great benefit from using this. He states he cannot sleep without it. However, last evaluation was >20 years ago and has had a new machine after the recall. Would like to reassess, and he prefers to do this through [facility] and clinics. External medical referral ordered. Overview: The AHI/RDI was greater than or equal to 15 events per hour on 07/23/1993 Medications, proper use, and common and severe side effects were reviewed with the patient/caregiver. If new or concerning symptoms develop, patient/caregiver understands to seek medical attention. Patient/caregiver verbalizes understanding and acceptance of this plan of care and denies any further needs at this time. Return to clinic 6 months, or sooner as needed. I spent 35 minutes on the date of this visit in record review, coordination of care and face to face or virtual patient care regarding the above chronic conditions. Clover Delaney M.D. documented in this encounter Plan of Treatment Upcoming Encounters Date Type Department Care Team (Latest Contact Info) Description 05/28/2023 10:00 AM HARVEST FIELD TICKETER Appointment Department of Laboratory Medicine in [place], [place] [address] [place] [phone] Mónica Portillo APRN, C.N.P., M.S. [address] [place] [phone] 05/28/2023 10:10 AM HARVEST FIELD TICKETER Appointment Department of Laboratory Medicine in [place], [place] [address] [place] [phone] Mónica Portillo APRN, C.N.P., M.S. [address] [place] [phone] 05/29/2023 8:00 AM HARVEST FIELD TICKETER Office Visit Department of Community Internal Medicine in [place], [place] [address] [place] [phone] Clover Delaney M.D. [address] [place] [phone] Discharge Disposition: Home or Self Care 05/29/2023 10:15 AM HARVEST FIELD TICKETER Appointment Department of Radiology, [facility], in [place], [place] [address] [place] [address] Mónica Portillo APRN, Kassandra.N.P., M.S. [address] [place] [phone] 05/29/2023 1:00 PM HARVEST FIELD TICKETER Procedure visit Department of Urology in [place], [place] [address] [place] [phone] Mónica Portillo APRN, C.N.P., M.S. [address] [place] [phone] 05/29/2023 3:00 PM HARVEST FIELD TICKETER Education Division of Nephrology and Hypertension in [place], [place] [address] [place] [phone] Mónica Portillo APRN, Kassandra.N.P., M.S. [address] [place] [phone] Sandeep Galicia R.N. [address] [place] [phone] 05/29/2023 4:00 PM HARVEST FIELD TICKETER Comprehensive Visit Division of Nephrology and Hypertension in [place], [place] [address] [place] [phone] Sera Casiano M.D., Ph.D. [address] [place] [phone] 06/15/2023 2:00 PM HARVEST FIELD TICKETER Ancillary Procedure Department of Ophthalmology in [place], [place] [address] [place] [phone] Justin Bunch M.D. [address] [place] [phone] 06/15/2023 2:30 PM HARVEST FIELD TICKETER Ancillary Procedure Department of Ophthalmology in [place], [place] [address] [place] [address] [place] [address] Justin Bunch M.D. [address] [place] [address] 06/15/2023 2:45 PM HARVEST FIELD TICKETER Office Visit Department of Ophthalmology in [place], [place] [address] [place] [address] Justin Bunch M.D. 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 [address] [place] [address] PCP - General Internal Medicine 11/23/17 documented as of this encounter
--- OUTSIDE RECORDS SUMMARY | 2023-05-05 12:03 | XMS_ITS | Encounter Summary ---
Author Name Unknown Organization [facility] Address [address] [place] [address] Care Team Providers Care [place] Name Role Phone Clover Delaney M.D. Primary Care Provider [phone] Reason for Visit * Reason Comments Med Refill Encounter Details Date Type Department Care Team (Late st Contact Info) Description 09/03/2022 Refill Division of Nephrology and Hypertension in [place], [place] [address] [place] [address] Cameron Cuevas M.D. [address] [place] [address] Med Refill Social History Tobacco Use Types [...] any clubs o r organizations such as sikhism groups, unions, fraternal or athletic groups, or [...] Answer Date Recorded PHQ-2 Score 0 06/06/2022 [facility] Occup[facility] ional [facility] - Occupational Stress [...] Sex Assigned at Male 05/13/2021 10:11 AM SEWER CONTRACTOR Gender Identity Male 11/02/2017 7:22 PM CDT Sexual Orientation Straight 11/02/2017 7: 22 PM CDT documented as of this encounter Plan of Treatment Upcoming Encounters Date Type Department Care Team (Latest Contact Info) Description 05/28/2023 10:00 AM SEWER CONTRACTOR Appointment Department of Laboratory Medicine in [place] [address] [place] [address] Mónica Portillo APRN, C.N.P., M.S. [address] [place] [phone] 05/28/2023 10:10 AM SEWER CONTRACTOR Appointment Department of Laboratory Medicine in [place] [address] [place] [address] Mónica Portillo APRN, C.N.P., M.S. [address] [place] [phone] 05/29/2023 8:00 AM SEWER CONTRACTOR Office Visit Department of Community Internal Medicine in [place] [address] [place] [address] Clover Delaney M.D. [address] [place] [phone] Discharge Disposition: Home or Self Care 05/29/2023 10:15 AM SEWER CONTRACTOR Appointment Department of Radiology, [facility], in [place], [place] [address] [place] [phone] Mónica Portillo APRN, Kassandra.N.P., M.S. [address] [place] [phone] 05/29/2023 1:00 PM SEWER CONTRACTOR Procedure visit Department of Urology in [place], [place] [address] [place] [phone] Mónica Portillo APRN, C.N.P., M.S. [address] [place] [phone] 05/29/2023 3:00 PM SEWER CONTRACTOR Education Division of Nephrology and Hypertension in [place], [place] [address] [place] [phone] Mónica Portillo APRN, C.NJosé LuisP., M.S. [address] [place] [phone] Sandeep Galicia R.N. [address] [place] [phone] 05/29/2023 4:00 PM SEWER CONTRACTOR Comprehensive Visit Division of Nephrology and Hypertension in [address] [phone] Sera Casiano M.D., Ph.D. [address] [place] [phone] 06/15/2023 2:00 PM SEWER CONTRACTOR Ancillary Procedure Department of Ophthalmology in [address] [phone] Justin Bunch M.D. [address] [place] [phone] 06/15/2023 2:30 PM SEWER CONTRACTOR Ancillary Procedure Department of Ophthalmology in [address] [phone] Justin Bunch M.D. [address] [place] [phone] 06/15/2023 2:45 PM SEWER CONTRACTOR Office Visit Department of Ophthalmology in [address] [phone] Justin Bunch M.D. [address] [place] [phone] documented as of this encounter Visit Diagnoses Not on filedocumented in this encounter Additional Health Concerns Assessment Noted Time PHQ-9 Depression Total Score: 4 06/06/19 23 2:04 PM SEWER CONTRACTOR documented as of this encounter Care Teams [place] Relationship Specialty Start Date End Date Clover Delaney M.D. [address] [place] [phone] PCP - General Internal Medicine 11/23/17 documented as of this encounter
--- OUTSIDE RECORDS SUMMARY | 2023-05-05 12:03 | XMS_ITS | Encounter Summary ---
Author Name Unknown Organization [facility] Address [address] [place] [address] Care Team Providers Care Molded Goods Inspector Trimmer Name Role Phone Clover Delaney M.D. Primary Care Provider [phone]- [phone] Encounter Details Date Type Department Care Team (Latest Contact Info) Description 09/08/2022 2:50 PM CDT Ancillary Procedure Department of Ophthalmology in [place], [place] [address] [place] [address] Da Paez M.D. [address] [place] [phone] Diabetes Mellitus Type 2 With Proliferative Diabetic [...] often do you attend chur ch or church services? Never 07/28/2022 Do you belong to any clubs o r organizations such as yarsani groups, unions, fraternal or athletic groups, or [...] Answer Date Recorded PHQ-2 Score 0 06/06/2022 [facility] of Occupat ional Health - Occupational Stress [...] Sex Assigned at Male 05/13/2021 10:11 AM MOLECULAR PATHOLOGIST Gender Identity Male 11/02/2017 7:22 PM CDT Sexual Orientation Straight 11/02/2017 7: 22 PM CDT documented as of this encounter Plan of Treatment Upcoming Encounters Date Type Department Care Team (Latest Contact Info) Description 05/28/2023 10:00 AM MOLECULAR PATHOLOGIST Appointment Department of Laboratory Medicine in [place] [address] [place] [address] Mónica Portillo APRN, C.N.P., M.S. [address] [place] [phone] 05/28/2023 10:10 AM MOLECULAR PATHOLOGIST Appointment Department of Laboratory Medicine in [place], [place] [address] [place] [address] Mónica Portillo APRN, C.N.P., M.S. [address] [place] [phone] 05/29/2023 8:00 AM MOLECULAR PATHOLOGIST Office Visit Department of Community Internal Medicine in [place] [address] [place] [address] Clover Delaney M.D. [address] [place] [phone] Discharge Disposition: Home or Self Care 05/29/2023 10:15 AM MOLECULAR PATHOLOGIST Appointment Department of Radiology, [facility], in [place], [place] [address] [place] [phone] Mónica Portillo APRN, C.N.P., M.S. [address] [place] [phone] 05/29/2023 1:00 PM MOLECULAR PATHOLOGIST Procedure visit Department of Urology in [place], [place] [address] [place] [address] Mónica Portillo APRN, C.N.P., M.S. [address] [place] [phone] 05/29/2023 3:00 PM MOLECULAR PATHOLOGIST Education Division of Nephrology and Hypertension in [place], [place] [address] [place] [phone] Mónica Portillo APRN, CJosé LuisN.P., M.S. [address] [place] [phone] Sandeep Galicia R.N. [address] [place] [phone] 05/29/2023 4:00 PM MOLECULAR PATHOLOGIST Comprehensive Visit Division of Nephrology and Hypertension in [place], [place] [address] [place] [phone] Sera Casiano M.D., Ph.D. [address] [place] [phone] 06/15/2023 2:00 PM MOLECULAR PATHOLOGIST Ancillary Procedure Department of Ophthalmology in [place], [place] [address] [place] [phone] Justin Bunch M.D. [address] [place] [phone] 06/15/2023 2:30 PM MOLECULAR PATHOLOGIST Ancillary Procedure Department of Ophthalmology in [address] [place] [address] [phone] Justin Bunch M.D. [address] [place] [phone] 06/15/2023 2:45 PM MOLECULAR PATHOLOGIST Office Visit Department of Ophthalmology in [address] [place] [address] [address] Justin Bunch M.D. 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 Fundus photo type obtained is Color, Autofluorescence. Notes C/w exam Justin Bunch M.D. 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 [address] [place] [address] PCP - General Internal Medicine 11/23/17 documented as of this encounter
--- OUTSIDE RECORDS SUMMARY | 2023-05-05 12:03 | XMS_ITS | Encounter Summary ---
Author Name Unknown Organization [facility] Address [address] [place] [address] Care Team Providers Care Allocation Analyst Name Role Phone Clover Delaney M.D. Primary Care Provider [phone]- [phone] Encounter Details Date Type Department Care Team (Latest Contact Info) Description 09/08/2022 4:50 PM CDT Ancillary Procedure Department of Ophthalmology in [place], [place] [address] [place] [address] Justin Bunch M.D. [address] [place] [address] Unspecified Purulent Endophthalmitis Left Eye Social History Tobacco Use Types Packs/Day Years [...] any clubs o r organizations such as catholic groups, unions, fraternal or athletic groups, [...] Answer Date Recorded PHQ-2 Score 0 06/06/2022 [facility] [place] of Occupat ional Health - Occupational Stress [...] place to sleep or slept in a chcf (including now)? No 07/28/2022 Depression Answer Date [...] Sex Assigned at Male 05/13/2021 10:11 AM ORDER BUILDER LOADER Gender Identity Male 11/02/2017 7:22 PM CDT Sexual Orientation Straight 11/02/2017 7: 22 PM CDT documented as of this encounter Plan of Treatment Upcoming Encounters Date Type Department Care Team (Latest Contact Info) Description 05/28/2023 10:00 AM ORDER BUILDER LOADER Appointment Department of Laboratory Medicine in [place] [address] [place] [address] Mónica Portillo APRN, C.N.P., M.S. [address] [place] [phone] 05/28/2023 10:10 AM ORDER BUILDER LOADER Appointment Department of Laboratory Medicine in [place] [address] [place] [address] Mónica Portillo APRN, C.N.P., M.S. [address] [place] [phone] 05/29/2023 8:00 AM ORDER BUILDER LOADER Office Visit Department of Community Internal Medicine in [place] [address] [place] [address] Clover Delaney M.D. [address] [place] [phone] Discharge Disposition: Home or Self Care 05/29/2023 10:15 AM ORDER BUILDER LOADER Appointment Department of Radiology, [facility], in [place], [place] [address] [place] [phone] Mónica Portillo APRN, Kassandra.N.P., M.S. [address] [place] [phone] 05/29/2023 1:00 PM ORDER BUILDER LOADER Procedure visit Department of Urology in [place], [place] [address] [place] [phone] Mónica Portillo APRN, Kassandra.N.P., M.S. [address] [place] [phone] 05/29/2023 3:00 PM ORDER BUILDER LOADER Education Division of Nephrology and Hypertension in [place], [place] [address] [place] [phone] Mónica Portillo APRN, C.NTaylor., M.S. [address] [place] [phone] Sandeep Galicia R.N. [address] [place] [phone] 05/29/2023 4:00 PM ORDER BUILDER LOADER Comprehensive Visit Division of Nephrology and Hypertension in [place], [place] [address] [place] [phone] Sera Casiano M.D., Ph.D. [address] [place] [phone] 06/15/2023 2:00 PM ORDER BUILDER LOADER Ancillary Procedure Department of Ophthalmology in [place], [place] [address] [place] [phone] Justin Bunch M.D. [address] [place] [phone] 06/15/2023 2:30 PM ORDER BUILDER LOADER Ancillary Procedure Department of Ophthalmology in [address] [address] Justin Bunch M.D. [address] [place] [phone] 06/15/2023 2:45 PM ORDER BUILDER LOADER Office Visit Department of Ophthalmology in [address] [phone] Justin Bunch M.D. [address] [place] [phone] documented as of this encounter Procedures Procedure Name Priority Date/Time Associated Diagnosis Comments OPTICAL COHERENCE TOMOGRAPHY - MACULA/RETINA - OU - BOTH EYES Routine 09/08/2022 4:01 PM CDT Unspecified Purulent Endophthalmitis Left Eye documented in this encounter Results * Optical Coherence Tomography - Macula/Retina - OU - Both Eyes (09/08/2022 4:01 PM CDT) Narrative OPHTHALMOLOGY IMAGING EXAM - 10/27/2022 5:10 PM CDT Right Eye OCT device used was Spectralis . Left Eye OCT device used was Spectralis . Notes See interpretation in note section Justin Bunch M.D. OPHTH TOMOGRAPHY OPHTHALMOLOGY IMAGING EXAM documented in this encounter Visit Diagnoses Diagnosis Unspecified Purulent Endophthalmitis Left Eye documented in this encounter Additional Health Concerns Assessment Noted Time PHQ-9 Depression Total Score: 4 06/06/19 23 2:04 PM ORDER BUILDER LOADER documented as of this encounter Care Teams Allocation Analyst Relationship Specialty Start Date End Date Clover Delaney M.D. [address] [place] [address] PCP - General Internal Medicine 11/23/17 documented as of this encounter
--- OUTSIDE RECORDS SUMMARY | 2023-05-05 12:03 | XMS_ITS | Encounter Summary ---
Author Name Unknown Organization [facility] Address [address] [place] [address] Care Team Providers Care Microcomputer Support Specialist Name Role Phone Clover Delaney M.D. Primary Care Provider [phone]- [phone] Reason for Referral * Specialty Diagnoses / Procedures Referred By Contanthony t Referred To Contact Mónica Portillo APRN, C.N.P., M.S. [address] [place] [address] [facility] Referral ID Status Reason Start Date Expiration Date Visits Re quested Visits Authorized Scheduling Instructions Virtual education preferred Labs at [facility] please and okay for virtual follow up * Outpatient (Routine) - Closed Specialty Diagnoses / Procedures Referred By Yenny t Referred To Contact Nephrology and Hypertension Mónica Portillo APRN, C.NTaylor., M.S. [address] [place] [address] [facility] Referral ID Status Reason Start Date Expiration Date Visits Re quested Visits Authorized [id number] Closed 09/03/2022 09/02/2025 1 1 Scheduling Instructions Labs at [facility] please and okay for virtual follow up Reason for Visit * Outpatient (Routine) - Closed Specialty Diagnoses / Procedures Referred By Yenny hunter Referred To Contact Nephrology and Hypertension Mónica Portillo APRN, C.N.P., M.S. [address] [place] [address] [facility] Referral ID Status Reason Start Date Expiration Date Visits Re quested Visits Authorized [id number] Closed 07/29/2022 07/28/2025 1 1 Encounter Details Date Type Department Care Team (Latest Contact Info) Description 09/03/2022 9:15 AM CDT Telemedicine Division of Nephrology and Hypertension in [place], [place] [address] [place] [phone] Mónica Portillo APRN, C.N.P., M.S. [address] [place] [phone] Chronic Kidney Disease Stage 4 Glomerular Filtration Rate 15-29 (HCC) (Primary Dx); Anemia Of Chronic Renal Disease; Diabetes Mellitus [...] Answer Date Recorded PHQ-2 Score 0 06/06/2022 [facility] of Occupat ional [facility] - Occupational Stress Questionnaire Answer Date Recorded [...] Sex Assigned at Male 05/13/2021 10:11 AM MANAGER ADVANCED Gender Identity Male 11/02/2017 7:22 PM CDT Sexual Orientation Straight 11/02/2017 7: 22 PM CDT documented as of this encounter Last Filed Vital Signs Vital Sign Reading Time Taken Comments Blood Pressure 141/73 09/03/2022 9:04 AM CDT fro m a couple days Pulse - - Temperature - - Respiratory Rate - - Oxygen Saturation - - Inhaled Oxygen Concentration - - Weight - - Height - - Body Mass Index - - documented in this encounter Progress Notes * Mónica Portillo APRN, C.N.P., M.S. - 09/03/2022 9:15 AM CDT SUBJECTIVE CHIEF COMPLAINT / REASON FOR VISIT Chronic kidney disease follow-up Follow up via real-time audio/video technology by Mónica Portillo APRN, C.N.P., M.S. in [facility] to the patient in Patient's Home HISTORY OF PRESENT ILLNESS Mr. Patel is a 76 y.o. 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 He was seen for follow-up chronic kidney disease stage 4-5 July 29, 2022 when creatinine trended upward at 3.44 and CKD-EP I GFR was 18 mL/min. EGFR by Cystatin C was 11 mL/min. At that time, torsemide was reduced to 20 mg daily. Lisinopril was discontinued and irbesartan 75 mg daily was initi ated with goal BP 130/80 or less. Two Feraheme infusions were recommended at [facility] infusion center. He presents for ongoing evaluation of chronic kidney disease. He and his have just returned from there 50 year wedding anniversary trip to [place] and the [facility]. He notes that travel was difficult due to fatigue and he feels deconditioned. He endorses dyspnea after walking 100 ydswhen he requires a short rest before continuing onward. He has not monitor home blood pressures regularly since returning from his trip. He reports blood pressures in the low 140s systolic and 70s diastolic. Heart rate is in the 50s to 60s. He denies chest pain, chest pressure, syncope, presyncope,hematochezia or melena, dysuria or hematuria. Constitutional: Positive for fatigue. Eyes: Positive for visual problems. The following systems were negative: Skin, ENT, Respiratory, Cardiovascular, Gastrointestinal, Genitourinary, Hematologic, Musculoskeletal, Neurological, Psychiatric OBJECTIVE Vitals: 09/03/22 0904 BP: 141/73 Comment: from a couple days PainSc: 0-No pain PHYSICAL EXAMINATION Constitutional General: He is not in acute distress. Comments: Fatigued-appearing Skin Coloration: Skin is pale. Neurological Mental Status: He is alert and oriented to person, place, and time. Psychiatric Mood and Affect: Mood normal. Behavior: Behavior normal. ASSESSMENT / PLAN #1 Chronic kidney disease (CKD) stage 4, likely multifactorial and secondary to type 2 diabetes mellitus, hypertension, vasculitis, obesity, secondary FSGS and small-vessel renal disease Kidney function appears stable overall with downward trend in creatinine of 3.10 and GFR is 20 mL/min. Electrolytes are satisfactory. He agrees with the following plan: He will have 2 feraheme infusions at [facility]; one time this week and again next week. Anemia management plan will be monthly CBC with Aranesp 60 mcg; hold for hemoglobin greater than 11. I will ask the CKD RN to fax request to his [place] provider. He will discuss trial of a GLP-1 receptor agonist such as liraglutide or semaglutide if no contraindication and in effort to improve Hgb A1c and proteinuria. He will monitor BP and pulse daily and plan will be to increase irbesartan if BP is persistently greater than 130/80. He will attend virtual education: Renal replacement therapy options. We will discuss with CKD follow up in 3 months and formulate a dialysis plan in the event of ESKD. GLP-1 receptor agonists (like Victoza, Ozempic, Trulicity, Exenatide-LAR) are injections that increase endogenous insulin secretion and cause significant weight loss by decreasing appetite and increasing satiety. Some of these agents (Victoza, Ozempic, Trulicity) can be used in stage 5 kidney disease also. The use of these agents has been associated with nausea, vomiting and diarrhea, especially if doses are escalated quickly. These agents have been shown to be associated with decrease in progression of kidney disease, especially decrease in urinary albumin excretion. Patient who have had pancreatitis or pancreatic cancer, or have had a medullary thyroid cancer, or have a family history of m edullary thyroid cancer or MEN-2 should not use these agents. #2 CKD treatment options He will attend renal replacement therapy options education. We discussed option of home peritoneal dialysis. #3 Hypertension BP is greater than goal. Persistent severe albuminuria with upward trend in ACR. Plan as above. Anti-Hypertensives carvediloL (COREG) 12.5 mg tablet TAKE ONE TABLET BY MOUTH TWICE A DAY WITH MEALS irbesartan (AVAPRO) 75 mg tablet Take 1 tablet (75 mg total) by mouth daily. torsemide (DEMADEX) 20 mg tablet TAKE ONE TABLET BY MOUTH ONE TIME DAILY #4 Anemia of CKD Hemoglobin trended downward. Iron stores are not replete. Plan as above: 2 Feraheme infusions and recommend initiate monthly CBC with Aranesp 60 mcg; home for hemoglobin greater than 11. If unable toarrange monthly CBC and aranesp at [place], we will try to arrange anemia management at [place]. If unable to get the aranesp injections at [facility], he will travel to [facility]. #5 Hyperparathyroidism, renal secondary Calcium, phosphorus and PTH are in desired range. Phosphorus now improved. #6 Metabolic acidosis screening Bicarbonate is at goal without oral replacement. documented in this encounter Plan of Treatment Upcoming Encounters Date Type Department Care Team (Latest Contact Info) Description 05/28/2023 10:00 AM MANAGER ADVANCED Appointment Department of Laboratory Medicine in [place] [address] [place] [address] Mónica Portillo APRN, Kassandra.N.P., M.S. [address] [place] [address] 05/28/2023 10:10 AM MANAGER ADVANCED Appointment Department of Laboratory Medicine in [place], [place] [address] [address] Mónica Portillo APRN, C.N.P., M.S. [address] [place] [phone] 05/29/2023 8:00 AM MANAGER ADVANCED Office Visit Department of Community Internal Medicine in [place] [address] [place] [address] Clover Delaney M.D. [address] [place] [phone] Discharge Disposition: Home or Self Care 05/29/2023 10:15 AM MANAGER ADVANCED Appointment Department of Radiology, [facility], in [place], [place] [address] [place] [phone] Mónica Portillo APRN, C.N.P., M.S. [address] [place] [phone] 05/29/2023 1:00 PM MANAGER ADVANCED Procedure visit Department of Urology in [place], [place] [address] [place] [phone] Mónica Portillo APRN, C.N.P., M.S. [address] [place] [phone] 05/29/2023 3:00 PM MANAGER ADVANCED Education Division of Nephrology and Hypertension in [place], [place] [address] [place] [phone] Mónica Portillo APRN, C.N.P., M.S. [address] [place] [phone] Sandeep Galicia R.N. [address] [place] [phone] 05/29/2023 4:00 PM MANAGER ADVANCED Comprehensive Visit Division of Nephrology and Hypertension in [place], [place] [address] [place] [phone] Sera Casiano M.D., Ph.D. [address] [place] [phone] 06/15/2023 2:00 PM MANAGER ADVANCED Ancillary Procedure Department of Ophthalmology in [place], [place] [address] [place] [phone] Justin Bunch M.D. [address] [place] [phone] 06/15/2023 2:30 PM MANAGER ADVANCED Ancillary Procedure Department of Ophthalmology in [place], [place] [address] [place] [address] Justin Bunch M.D. [address] [place] [phone] 06/15/2023 2:45 PM MANAGER ADVANCED Office Visit Department of Ophthalmology in [place], [place] [address] [place] [phone] Justin Bunch M.D. 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 Higher concentrations [...] M.S. LAB BLOOD ADD-ON Performing Organization Address City/[facility]/ZIP Co de Phone Number [facility] [address] [place] [address], [facility] [place] [address] * (ABNORMAL) Iron and Total Iron-Binding Capacity [...] M.S. LAB BLOOD ADD-ON Performing Organization Address City/[facility] Co de Phone Number [facility] [address] [place] [address], [facility] in [address] [address] * (ABNORMAL) Ferritin (02/26/2023 9:14 AM CDT) Ferritin, S 533(H) 31 - 409 mcg/L 02/26/2023 12:18 PM CDT [facility] Comment: Biotin has been identified by the plastics engineering teacher as a potential interfering substance. Higher concentrations of biotin may be found in multivitamins, hair/nail supplements, and workout supplements. If the result does not match clinical observations, repeat testing after patient refrains from the use of supplements for at least 12 hours. Blood (Blood, Venous) 02/26/2023 9:14 AM CDT 02/26/2023 11:45 AM CDT Mónica Portillo APRN, C.N.P., M.S. LAB BLOOD ADD-ON [facility] [address] [place] [address], [facility] [place] [address] [place] [address] * (ABNORMAL) Renal Function Panel (02/26/2023 9:14 [...] 9:14 AM CDT 02/26/2023 11:45 AM CDT Drew Couch APRNNTaylor., M.S. LAB BLOOD ADD-ON Performing Organization Address City/[facility]/ZIP Co de Phone Number [facility] [address] [place] [address], [facility] RDW[facility] [place] [address] [place] [phone] * (ABNORMAL) CBC without Differential (02/26/2023 9:14 AM CDT) Hemoglobin 9.2(L) 13.2 - 16.6 g/dL 02/26/2023 [...] Kassandra Couch APRN.N.P., M.S. LAB BLOOD ADD-ON [facility] [address] [place] [address], [facility] 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 [address] [place] [address] PCP - General Internal Medicine 11/23/17 documented as of this encounter
--- OUTSIDE RECORDS SUMMARY | 2023-05-05 12:03 | XMS_ITS | Encounter Summary ---
Author Name Unknown Organization [facility] Address [address] [place] [address] Care Team Providers Care Plumbing Foreman Name Role Phone Clover Delaney M.D. Primary Care Provider +1- [phone] Encounter Details Date Type Department Care Team (Late st Contact Info) Description 09/08/2022 3:25 PM CDT Silent Schedule Department of Ophthalmology in [place], [place] [address] [place] [address] Justin Bunch M.D. [address] [place] [phone] Social History Tobacco Use Types Packs/Day Years [...] any clubs o r organizations such as spiritism groups, unions, fraternal or athletic groups, or [...] Answer Date Recorded PHQ-2 Score 0 06/06/2022 [facility] of Occupat ional Health - Occupational Stress [...] Sex Assigned at Male 05/13/2021 10:11 AM CEMENT PATCHER Gender Identity Male 11/02/2017 7:22 PM CDT Sexual Orientation Straight 11/02/2017 7: 22 PM CDT documented as of this encounter Plan of Treatment Upcoming Encounters Date Type Department Care Team (Latest Contact Info) Description 05/28/2023 10:00 AM CEMENT PATCHER Appointment Department of Laboratory Medicine in [place], [place] [address] [place] [address] Mónica Portillo APRN, C.N.P., M.S. [address] [place] [phone] 05/28/2023 10:10 AM CEMENT PATCHER Appointment Department of Laboratory Medicine in [place], [place] [address] [place] [address] Mónica Portillo APRN, C.N.P., M.S. [address] [place] [phone] 05/29/2023 8:00 AM CEMENT PATCHER Office Visit Department of Community Internal Medicine in [place] [address] [place] [address] Clover Delaney M.D. [address] [place] [phone] Discharge Disposition: Home or Self Care 05/29/2023 10:15 AM CEMENT PATCHER Appointment Department of Radiology, [facility], in [place], [place] [address] [place] [phone] Mónica Portillo APRN, C.N.P., M.S. [address] [place] [phone] 05/29/2023 1:00 PM CEMENT PATCHER Procedure visit Department of Urology in [place], [place] [address] [place] [phone] Mónica Portillo APRN, C.N.P., M.S. [address] [place] [phone] 05/29/2023 3:00 PM CEMENT PATCHER Education Division of Nephrology and Hypertension in [place], [place] [address] [place] [phone] Mónica Portillo APRN, C.N.P., M.S. [address] [place] [phone] Sandeep Galicia R.N. [address] [place] [phone] 05/29/2023 4:00 PM CEMENT PATCHER Comprehensive Visit Division of Nephrology and Hypertension in [place], [place] [address] [place] [phone] Sera Casiano M.D., Ph.D. [address] [place] [phone] 06/15/2023 2:00 PM CEMENT PATCHER Ancillary Procedure Department of Ophthalmology in [place], [place] [address] [place] [phone] Justin Bunch M.D. [address] [place] [phone] 06/15/2023 2:30 PM CEMENT PATCHER Ancillary Procedure Department of Ophthalmology in [address] [phone] Justin Bunch M.D. [address] [place] [phone] 06/15/2023 2:45 PM CEMENT PATCHER Office Visit Department of Ophthalmology in [address] [phone] Justin Bunch M.D. [address] [place] [phone] documented as of this encounter Procedures Procedure [...] EXAM documented in this encounter Visit Diagnoses Not on filedocumented in this encounter Additional Health Concerns Assessment Noted Time PHQ-9 Depression Total Score: 4 06/06/19 23 2:04 PM CEMENT PATCHER documented as of this encounter Care Teams Plumbing Foreman Relationship Specialty Start Date End Date Clover Delaney M.D. [address] [place] [phone] PCP - General Internal Medicine 11/23/17 documented as of this encounter
--- OUTSIDE RECORDS SUMMARY | 2023-05-05 12:03 | XMS_ITS | Encounter Summary ---
Author Name Unknown Organization [facility] Address [address] [place] [address] Care Team Providers Care Disease Control Inspector Name Role Phone Clover Delaney M.D. Primary Care Provider +1- [phone] Encounter Details Date Type Department Care Team (Late st Contact Info) Description 09/04/2022 Clinical Communication Division of Nephrology and Hypertension, [facility], in [place], [place] [address] [place] [phone] Mónica Portillo, TRIXIE, C.N.P., M.S. [address] [place] [address] Social History Tobacco Use Types Packs/Day Years [...] often do you attend chur ch or advent services? Never 07/28/2022 Do you belong to [...] Answer Date Recorded PHQ-2 Score 0 06/06/2022 [facility] of Occupat ional Health - [...] Sex Assigned at Male 05/13/2021 10:11 AM ANILINE PRESS WORKER Gender Identity Male 11/02/2017 7:22 PM CDT Sexual Orientation Straight 11/02/2017 7: 22 PM CDT documented as of this encounter Plan of Treatment Upcoming Encounters Date Type Department Care Team (Latest Contact Info) Description 05/28/2023 10:00 AM ANILINE PRESS WORKER Appointment Department of Laboratory Medicine in [place] [address] [place] [address] Mónica Portillo APRN, C.N.P., M.S. [address] [place] [phone] 05/28/2023 10:10 AM ANILINE PRESS WORKER Appointment Department of Laboratory Medicine in [place] [address] [place] [phone] Mónica Portillo APRN, Kassandra.N.P., M.S. [address] [place] [phone] 05/29/2023 8:00 AM ANILINE PRESS WORKER Office Visit Department of Community Internal Medicine in [place] [address] [place] [address] Clover Delaney M.D. [address] [place] [phone] Discharge Disposition: Home or Self Care 05/29/2023 10:15 AM ANILINE PRESS WORKER Appointment Department of Radiology, [facility], in [place], [place] [address] [place] [phone] Mónica Portillo APRN, C.N.P., M.S. [address] [place] [phone] 05/29/2023 1:00 PM ANILINE PRESS WORKER Procedure visit Department of Urology in [place], [place] [address] [place] [phone] Mónica Portillo APRN, Kassandra.N.P., M.S. [address] [place] [phone] 05/29/2023 3:00 PM ANILINE PRESS WORKER Education Division of Nephrology and Hypertension in [place], [place] [address] [place] [phone] Mónica Portillo APRN, DrewNJosé LuisP., M.S. [address] [place] [phone] Sandeep Galicia R.N. [address] [place] [phone] 05/29/2023 4:00 PM ANILINE PRESS WORKER Comprehensive Visit Division of Nephrology and Hypertension in [place], [place] [address] [place] [phone] Sera Casiano M.D., Ph.D. [address] [place] [phone] 06/15/2023 2:00 PM ANILINE PRESS WORKER Ancillary Procedure Department of Ophthalmology in [place], [place] [address] [place] [phone] Justin Bunch M.D. [address] [place] [phone] 06/15/2023 2:30 PM ANILINE PRESS WORKER Ancillary Procedure Department of Ophthalmology in [address] [phone] Justin Bunch M.D. [address] [place] [phone] 06/15/2023 2:45 PM ANILINE PRESS WORKER Office Visit Department of Ophthalmology in [address] [phone] Justin Bunch M.D. [address] [place] [phone] documented as of this encounter Visit Diagnoses Not on filedocumented in this encounter Additional Health Concerns Assessment Noted Time PHQ-9 Depression Total Score: 4 06/06/19 23 2:04 PM ANILINE PRESS WORKER documented as of this encounter Care Teams Disease Control Inspector Relationship Specialty Start Date End Date Clover Delaney M.D. [address] [place] [phone] PCP - General Internal Medicine 11/23/17 documented as of this encounter
--- OUTSIDE RECORDS SUMMARY | 2023-05-05 12:03 | XMS_ITS | Encounter Summary ---
Author Name Unknown Organization [facility] Address [address] [place] [address] Care Team Providers Care Clerical Proofreader Name Role Phone Clover Delaney M.D. Primary Care Provider +1- [phone] Encounter Details Date Type Department Care Team (Late st Contact Info) Description 09/08/2022 3:20 PM CDT Ancillary Procedure Department of Ophthalmology Social History [...] often do you attend chur ch or adventist services? Never 07/28/2022 Do you belong to any clubs o r organizations such as rastafari groups, unions, fraternal or athletic groups, or [...] Answer Date Recorded PHQ-2 Score 0 06/06/2022 [facility] of Occupat ional Health - [...] Sex Assigned at Male 05/13/2021 10:11 AM TRAINING AND DEVELOPMENT DIRECTOR Gender Identity Male 11/02/2017 7:22 PM CDT Sexual Orientation Straight 11/02/2017 7: 22 PM CDT documented as of this encounter Plan of Treatment Upcoming Encounters Date Type Department Care Team (Latest Contact Info) Description 05/28/2023 10:00 AM TRAINING AND DEVELOPMENT DIRECTOR Appointment Department of Laboratory Medicine in [address] [place] [address] Mónica Portillo, TRIXIE, C.N.P., M.S. [address] [place] [phone] 05/28/2023 10:10 AM TRAINING AND DEVELOPMENT DIRECTOR Appointment Department of Laboratory Medicine in [place], [place] [address] [place] [phone] Mónica Portillo APRN, C.N.P., M.S. [address] [place] [phone] 05/29/2023 8:00 AM TRAINING AND DEVELOPMENT DIRECTOR Office Visit Department of Community Internal Medicine in [place], [place] [address] [place] [phone] Clover Delaney M.D. [address] [place] [phone] Discharge Disposition: Home or Self Care 05/29/2023 10:15 AM TRAINING AND DEVELOPMENT DIRECTOR Appointment Department of Radiology, [facility] in [place], [place] [address] [place] [address] Mónica Portillo APRN, C.N.P., M.S. [address] [place] [phone] 05/29/2023 1:00 PM TRAINING AND DEVELOPMENT DIRECTOR Procedure visit Department of Urology in [place], [place] [address] [place] [phone] Mónica Portillo APRN, C.N.P., M.S. [address] [place] [phone] 05/29/2023 3:00 PM TRAINING AND DEVELOPMENT DIRECTOR Education Division of Nephrology and Hypertension in [place], [place] [address] [place] [phone] Mónica Portillo APRN, C.N.P., M.S. [address] [place] [phone] Sandeep Galicia R.N. [address] [place] [phone] 05/29/2023 4:00 PM TRAINING AND DEVELOPMENT DIRECTOR Comprehensive Visit Division of Nephrology and Hypertension in [place], [place] [address] [place] [phone] Sera Casiano M.D., Ph.D. [address] [place] [phone] 06/15/2023 2:00 PM TRAINING AND DEVELOPMENT DIRECTOR Ancillary Procedure Department of Ophthalmology in [place], [place] [address] [place] [phone] Justin Bunch M.D. [address] [place] [phone] 06/15/2023 2:30 PM TRAINING AND DEVELOPMENT DIRECTOR Ancillary Procedure Department of Ophthalmology in [place], [place] [address] [place] [phone] Justin Bunch M.D. [address] [place] [phone] 06/15/2023 2:45 PM TRAINING AND DEVELOPMENT DIRECTOR Office Visit Department of Ophthalmology in [place], [place] [address] [place] [phone] Justin Bunch M.D. [address] [place] [phone] documented as of this encounter Procedures Procedure Name Priority Date/Time Associated Diagnosis Comments OPHTHALMOLOGY IMAGE EXAM Routine 09/08/2022 3:20 PM CDT documented in this encounter Results * [employer]-Ophthalmology Image Exam (09/08/2022 3:20 PM CDT) 09/08/2022 3:17 PM CDT Narrative [facility]IM[facility] - 09/08/2022 3:27 PM CDT This order has been created [...] Total Score: 4 06/06/19 23 2:04 PM TRAINING AND DEVELOPMENT DIRECTOR documented as of this encounter Care Teams Clerical Proofreader Relationship Specialty Start Date End Date Clover Delaney M.D. [address] [place] [phone] PCP - General Internal Medicine 11/23/17 documented as of this encounter
--- OUTSIDE RECORDS SUMMARY | 2023-05-05 12:03 | XMS_ITS | Encounter Summary ---
Author Name Unknown Organization [facility] Address [address] [place] [address] Care Team Providers Care Popcorn Candy Maker Name Role Phone Clover Delaney M.D. Primary Care Provider +1- [phone] Reason for Visit * Reason Comments Retina Follow Up * Outpatient (Routine) - Closed Specialty Diagnoses / Procedures Referred By Yenny hunter Referred To Contact Ophthalmology Da Paez M.D. [address] [place] [phone] [facility] Referral ID Status Reason Start Date Expiration Date Visits Re quested Visits Authorized [id number] Closed 04/07/2022 04/06/2025 1 1 Encounter Details Date Type Department Care Team (Latest Contact Info) Description 09/08/2022 3:00 PM CDT Comprehensive Visit Department of Ophthalmology in [place], [place] [address] [place] [phone] Justin Bunch M.D. 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 Never 07/28/2022 Do you belong to [...] Answer Date Recorded PHQ-2 Score 0 06/06/2022 [facility]at ional [facility] - Occupational Stress Questionnaire Answer Date [...] Sex Assigned at Male 05/13/2021 10:11 AM RENAL CASE MANAGER Gender Identity Male 11/02/2017 7:22 PM CDT Sexual Orientation Straight 11/02/2017 7: 22 PM CDT documented as of this encounter Progress Notes * Justin Bunch M.D. - 09/08/2022 3:00 PM CDT Philip Jaret Patel was seen today. # Endophthalmitis, LEFT eye # Total retinal [...] loss of foveal contour; choroidal folds Impression 09/08/22: Previous Dr. Paez patient. Patient currently has oil in his LEFT eye after total retinal detachment repair after endophthalmitis in 02/2022. 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 Discussed poor prognosis in detail. He is currently comfortable without any new concerns or changes. Although the intra-ocular pressure measures 11 today, palpation suggests it is closer to 4, as before. We discussed options including observation versus surgery, including the possibility of multiple surgeries and destabilization of the eye that is currently comfortable. We also discussed the need to closely monitor the right eye given that his systemic health is not currently optimized. He will let us know if there are any new changes and we will follow very closely. Plan: FU 3 months with [facility] OCT and [employer] FA transit RIGHT documented in this encounter Plan of Treatment Upcoming Encounters Date Type Department Care Team (Latest Contact Info) Description 05/28/2023 10:00 AM RENAL CASE MANAGER Appointment Department of Laboratory Medicine in [place] [address] [place] [address] Mónica Portillo APRN, C.N.P., M.S. [address] [place] [phone] 05/28/2023 10:10 AM RENAL CASE MANAGER Appointment Department of Laboratory Medicine in [place] [address] [place] [phone] Mónica Portillo APRN, C.N.P., M.S. [address] [place] [phone] 05/29/2023 8:00 AM RENAL CASE MANAGER Office Visit Department of Community Internal Medicine in [place] [address] [place] [phone] Clover Delaney M.D. [address] [place] [phone] Discharge Disposition: Home or Self Care 05/29/2023 10:15 AM RENAL CASE MANAGER Appointment Department of Radiology, [facility], in [place], [place] [address] [place] [phone] Mónica Portillo APRN, C.N.P., M.S. [address] [place] [phone] 05/29/2023 1:00 PM RENAL CASE MANAGER Procedure visit Department of Urology in [place], [place] [address] [place] [phone] Mónica Portillo APRN, C.N.P., M.S. [address] [place] [phone] 05/29/2023 3:00 PM RENAL CASE MANAGER Education Division of Nephrology and Hypertension in [place], [place] [address] [place] [phone] Mónica Portillo APRN, C.N.P., M.S. [address] [place] [phone] Sandeep Galicia R.N. [address] [place] [phone] 05/29/2023 4:00 PM RENAL CASE MANAGER Comprehensive Visit Division of Nephrology and Hypertension in [place], [place] [address] [place] [phone] Sera Casiano M.D., Ph.D. [address] [place] [phone] 06/15/2023 2:00 PM RENAL CASE MANAGER Ancillary Procedure Department of Ophthalmology in [place], [place] [address] [place] [phone] Justin Bunch M.D. [address] [place] [phone] 06/15/2023 2:30 PM RENAL CASE MANAGER Ancillary Procedure Department of Ophthalmology in [place], [place] [address] [place] [phone] Justin Bunch M.D. [address] [place] [phone] 06/15/2023 2:45 PM RENAL CASE MANAGER Office Visit Department of Ophthalmology in [place], [place] [address] [place] [phone] Justin Bunch M.D. [address] [place] [phone] documented as of this encounter Results * [...] Retinopathy Without Macular Edema Bilateral (HCC)- Primary Unspecified Purulent Endophthalmitis Left Eye Glaucoma Neovascular Unspecified Purulent Endophthalmitis Left Eye documented in this encounter Additional Health Concerns Assessment Noted Time PHQ-9 Depression Total Score: 4 06/06/19 23 2:04 PM RENAL CASE MANAGER documented as of this encounter Care Teams Popcorn Candy Maker Relationship Specialty Start Date End Date Clover Delaney M.D. [address] [place] [phone] PCP - General Internal Medicine 11/23/17 documented as of this encounter
--- OUTSIDE RECORDS SUMMARY | 2023-05-05 12:04 | XMS_ITS | Encounter Summary ---
Author Name Unknown Organization [facility] Address [address] [place] [address] Care Team Providers Care Audit Spec Name Role Phone Clover Delaney M.D. Primary Care Provider [phone]- [phone] Encounter Details Date Type Department Care Team (Latest Contact Info) Description 09/01/2022 9:03 AM CDT - 09/01/2022 11:59 PM CDT Hospital Encounter Department of Laboratory Medicine in [address] [place] [phone] Mónica Portillo, TRIXIE, C.N.P., M.S. [address] [place] [phone] Anemia Of Chronic Renal Disease; Hypertension And Chronic Kidney Disease Stage 4 (HCC) Discharge Disposition: Home or Self Care [...] How often do you attend chur or catholic services? Never 07/28/2022 Do you [...] Answer Date Recorded PHQ-2 Score 0 06/06/2022 [facility] [place] of Occupat ional Health - Occupational Stress [...] place to sleep or slept in a half-way (including now)? No 07/28/2022 Depression Answer Date [...] Assigned at Male 05/13/2021 10:11 AM MANAGER SPECIAL EVENTS Gender Identity Male 11/02/2017 7:22 PM CDT Sexual Orientation Straight 11/02/2017 7: 22 PM CDT documented as of this encounter Medications at Time of Discharge Medication Sig Dispensed Refills Start Date End Date aspirin 81 mg chewable tablet Chew 1 tablet (81 mg total) daily. 90 tablet 3 01/06/2020 cholecalciferol (VITAMIN D3) 50 mcg (2,000 Unit) [...] 14 (fourteen) days. 1 each 1 06/09/2022 irbesartan (AVAPRO) 75 mg tablet Take 1 tablet (75 mg total) by mouth daily. 90 tablet 3 07/29/2022 iron,carbonyl-vitamin C (VITRON-C) 65 mg iron- [address] tablet Take 65 mg of iron by mouth daily. Do not crush or chew. 0 loperamide (IMODIUM A-D) 2 mg tablet Take 2 mg by mouth as needed. 0 miscellaneous medical supply [facility] CPAP Supplies See Instructions, CPAP machine, mask 1 ea x 4 refills, headgear 1 ea x 2 refills, tubing 1 ea x 4 refills, filters 2 ea per month, tub 1 ea x 2 refills, mask seal 1 ea x 2 refills DX G47.33, length of need 99, 1 each, 0 Refill(s) 0 10/20/2016 miscellaneous medical supply [facility] Head Gear for CPAP Machine See Instructions, fax to patient at [phone], 1 each 0 01/17/2014 MULTIVITAMIN ORAL Daily Multiple Vitamins See Instructions, Take 1 tablet by mouth daily. 0 07/23/2013 multivitamin-eye (PRESERVISION LUTEIN) 226 mg-90 mg-5 mg-0.8 mg capsule Take 2 capsules by mouth daily. 0 HearMeOutTOUCH DELICA LANCETS 33 gauge misc 3 08/02/2018 SensicoreTouch Ultra Test stripsIndications:Diab etes Mellitus Type 2 (HCC) Use to test once daily 100 strip 3 12/31/2021 pen needle, diabetic (UltiCare Pen Needle) 32 gauge x 1/4 needle 1 Injection daily. 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 90 tablet 3 01/27/2022 09/05/2022 glipiZIDE (GLUCOTROL XL) 5 mg 24 hr tablet Take 1 tablet (5 mg total) by mouth daily with breakfast. With 10mg for total 15mg glipizide XL daily 90 tablet 3 07/05/2022 09/05/2022 insulin glargine (Lantus Solostar U-100 Insulin) [...] BY MOUTH ONE TIME DAILY 90 tablet 1 01/13/2022 09/03/2022 documented as of this encounter Plan of Treatment Upcoming Encounters Date Type Department Care Team (Latest Contact Info) Description 05/28/2023 10:00 AM MANAGER SPECIAL EVENTS Appointment Department of Laboratory Medicine in [place] [address] [place] [address] Mónica Portillo APRN, C.N.P., M.S. [address] [place] [phone] 05/28/2023 10:10 AM MANAGER SPECIAL EVENTS Appointment Department of Laboratory Medicine in [place] [address] [place] [address] Mónica Portillo APRN, C.N.P., M.S. [address] [place] [phone] 05/29/2023 8:00 AM MANAGER SPECIAL EVENTS Office Visit Department of Community Internal Medicine in [place] [address] [place] [address] Clover Delaney M.D. [address] [place] [phone] Discharge Disposition: Home or Self Care 05/29/2023 10:15 AM MANAGER SPECIAL EVENTS Appointment Department of Radiology, [facility], in [place], [place] [address] [place] [phone] Mónica Portillo APRN, C.N.P., M.S. [address] [place] [phone] 05/29/2023 1:00 PM MANAGER SPECIAL EVENTS Procedure visit Department of Urology in [place], [place] [address] [place] [phone] Mónica Portillo APRN, C.N.P., M.S. [address] [place] [phone] 05/29/2023 3:00 PM MANAGER SPECIAL EVENTS Education Division of Nephrology and Hypertension in [place], [place] [address] [place] [phone] Mónica Portillo APRN, Buddy., M.S. [address] [place] [phone] Sandeep Galicia R.N. [address] [place] [phone] 05/29/2023 4:00 PM MANAGER SPECIAL EVENTS Comprehensive Visit Division of Nephrology and Hypertension in [place], [place] [address] [place] [phone] Sera Casiano M.D., Ph.D. [address] [place] [phone] 06/15/2023 2:00 PM MANAGER SPECIAL EVENTS Ancillary Procedure Department of Ophthalmology in [place], [place] [address] [place] [phone] Justin Bunch M.D. [address] [place] [phone] 06/15/2023 2:30 PM MANAGER SPECIAL EVENTS Ancillary Procedure Department of Ophthalmology in [place], [place] [address] [place] [phone] Justin Bunch M.D. [address] [place] [phone] 06/15/2023 2:45 PM MANAGER SPECIAL EVENTS Office Visit Department of Ophthalmology in [address] [phone] Justin Bunch M.D. [address] [place] [phone] documented as of this encounter Procedures Procedure Name Priority Date/Time Associated Diagnosis Comments ALBUMIN, RANDOM, U Routine 09/01/2022 9: 08 AM CDT Anemia Of Chronic Renal Disease Hypertension And Chronic Kidney Disease Stage 4 (HCC) URINALYSIS WITH MICROSCOPIC Routine 09/01/2022 9:08 AM CDT Anemia Of Chronic Renal Disease Hypertension And Chronic Kidney Disease Stage 4 (HCC) documented in this encounter Results * (ABNORMAL) Albumin, Random, Urine (09/01/2022 9:08 AM CDT) Microalbumin 1436.4 mg/L 09/01/2022 1:45 PM CDT [facility] Creatinine 42 mg/dL 09/01/2022 12:49 PM CDT [facility] Albumin/Creatinin e Ratio 3420(H) <17 mg/g 09/01/2022 1:45 PM CDT [facility] Urine (Urine, Midstream) 09/01/2022 9:08 AM CDT 09/01/2022 12:09 PM CDT Kassandra Couch APRN.N.P., M.S. LAB URINE ORDERABLES [facility] [address] [place] [address], [facility] [place] [address] [place] [phone] * (ABNORMAL) Urinalysis with Microscopic: Urine, Midstream (09/01/2022 9:08 AM CDT) Source Urine, Urine, Midstream 09/01/2022 12:09 PM CDT [facility] Clarity Clear Clear 09/01/2022 12:24 PM CDT [facility] Color Yellow 09/01/2022 12:24 PM CDT [facility] Comment: ----REFERENCE VALUE---- Colorless Yellow Susana Blood Negative Negative 09/01/2022 12:24 PM CDT [facility] Nitrite Negative Negative 09/01/2022 12:24 PM CDT [facility] Leukocyte Esterase Negative Negative 09/01/2022 12:24 PM CDT [facility] Protein >=300(A) mg/dL 09/01/2022 12:24 PM CDT [facility] Comment: ----REFERENCE VALUE---- Negative Trace Glucose Negative Negative mg/dL 09/01/2022 12:24 PM CDT [facility] Ketone Negative Negative mg/dL 09/01/2022 12:24 PM CDT [facility] Bilirubin Negative Negative 09/01/2022 12:24 PM CDT [facility] pH 5.5 5.0 - 8.0 09/01/2022 12:24 PM CDT [facility] Specific [place] 1.010 1.001 - 1.035 09/01/2022 12:24 PM CDT [facility] Urobilinogen 0.2 0.2 - 1.0 mg/dL 09/01/2022 12:24 PM CDT [facility] White Blood Cells None Seen /hpf 09/01/2022 12:26 PM CDT [facility] Comment: ----REFERENCE VALUE---- Males: 0-3 Females: 0-10 Unknown: 0-10 Red Blood Cells Occ-2 0 - 2 /hpf 12:26 PM CDT [facility] Hyaline Casts 1-3 /lpf 09/01/2022 12:26 PM CDT [facility] Urine (Urine, Midstream) 09/01/2022 9:08 AM CDT 09/01/2022 12:09 PM CDT Drew Couch APRNN.P., M.S. LAB URINE ORDERABLES [facility] [address] [facility] [place] [address], [facility] [place] [address] [place] [address] documented in this encounter Visit Diagnoses Diagnosis Anemia Of Chronic Renal Disease Hypertension And Chronic Kidney Disease Stage 4 (HCC) documented in this encounter Additional Health Concerns Assessment Noted Time PHQ-9 Depression Total Score: 4 06/06/19 23 2:04 PM MANAGER SPECIAL EVENTS documented as of this encounter Care Teams Audit Spec Relationship Specialty Start Date End Date Clover Delaney M.D. [address] [place] [phone] PCP - General Internal Medicine 11/23/17 documented as of this encounter
--- OUTSIDE RECORDS SUMMARY | 2023-05-05 12:04 | XMS_ITS | Encounter Summary ---
Author Name Unknown Organization [facility] Address [address] [place] [address] Care Team Providers Care Supervisor Abattoir Name Role Phone Clover Delaney M.D. Primary Care Provider [phone]- [phone] Encounter Details Date Type Department Care Team (Latest Contact Info) Description 07/25/2022 9:58 AM CDT - 07/25/2022 11:59 PM CDT Hospital Encounter Department of Laboratory Medicine in [address] [place] [phone] Mónica Portillo, TRIXIE, C.N.P., M.S. [address] [place] [phone] Hypertension And Chronic Kidney Disease Stage 4 (HCC); Anemia Of Chronic Renal Disease Discharge Disposition: Home or Self Care Social History Tobacco Use Types Packs/Day Years Used Date Smoking Tobacco: Former Cigarettes 0 36 0 1961 - 12/26/1980 Smokeless Tobacco: Never Alcohol Use Standard Drinks/Week Comments Yes 0 (1 standard drink = 0.6 oz pur e alcohol) Maybe one drink per month Humiliation, Afraid, Rape, and Kick questionnair e Answer Date Recorded Within the last year, have y ou been afraid of your partner or ex-partner? No 11/17/2021 Within the last year, have y ou been humiliated or emotionally abused in other ways by your partner or ex-partner? No Within the last year, have y ou been kicked, hit, slapped, or otherwise physically hurt by your partner or ex-partner? No 11/17/2021 Within the last year, have y ou been raped or forced to have any kind of sexual activity by your partner or ex-partner? No 11/17/2021 Social Connection and Isolat ion Panel [NHANES] Answer Date Recorded In a typical week, how many times do you talk on the phone with family, friends, or neighbors? More than three times a week 11/17/2021 How often do you get togethe r with friends or relatives? Twice a week 11/17/2021 How often do you attend chur or buddhist services? 1 to 4 times per year 11/17/2021 Do you belong to any clubs o r organizations such as episcopal groups, unions, fraternal or athletic groups, or school groups? Yes 11/17/2021 How often do you attend meet ings of the clubs or organizations you belong to? More than 4 times per year 11/17/2021 Are you , , di vorced, , never , or living with a partner? 11/17/2021 AUDIT-C Answer Date Recorded Q1: How often do you have a drink containing alc ohol? Monthly or less 11/17/2021 Q2: How many drinks containi ng alcohol do you have on a typical day when you are drinking? 1 or 2 11/17/2021 Q3: How often do you have si x or more drinks on one occasion? Never 11/17/2021 Overall Financial Resource Strain (CARDIA) Answe r Date Recorded How hard is it for you to pa y for the very basics like food, housing, medical care, and heating? Not hard at all 11/17/2021 PHQ-2 Answer Date Recorded PHQ-2 Score 0 06/06/2022 [facility] of Occupat ional Health - Occupational Stress Questionnaire Answer Date Recorded Do you feel stress - tense, restless, nervous, or anxious, or unable to sleep at night because your mind is troubled all the time - these days? Not at all 11/17/2021 Exercise Vital Sign Answer Date Recorde d On average, how many days pe r week do you engage in moderate to strenuous exercise (like a brisk walk)? 0 days 11/17/2021 On average, how many minutes do you engage in exercise at this level? 0 min 11/17/2021 Hunger Vital Sign Answer Date Recorded Within the past 12 months, y ou worried that your food would run out before you got the money to buy more. Never true 11/18/19 22 Within the past 12 months, t he food you bought just didn't last and you didn't have money to get more. Never true 11/17/2021 PRAPARE - Transportation Answer Date Re corded In the past 12 months, has l ack of transportation kept you from medical appointments or from getting medications? No 10/26 In the past 12 months, has l ack of transportation kept you from meetings, work, or from getting things needed for daily living? No 11/17/2021 Housing Stability Vital Sign Answer Awais e Recorded In the last 12 months, was t here a time when you were not able to pay the mortgage or rent on time? No 11/17/2021 In the last 12 months, how many places have you lived? 1 11/17/2021 In the last 12 months, was t here a time when you did not have a steady place to sleep or slept in a snf (including now)? No 11/17/2021 Depression Answer Date Recor ded PHQ-9 Total Score (max 27) 4 06/06 Nutrition Answer Date Recorded Nutrition: EVOO Fat Source Yes 11/17 On average, how many serving s of fruits and vegetables do you eat per day (serving size is equal to 1 cup or approximately the size of a tennis ball)? 2-3 11/17/2021 Dental Answer Date Recorded Dental: Regular Dentist Yes 06/20/19 21 Employment Answer Date Recorded Employment status Employed and actively working without restrictions 11/17/2021 Education Answer Date Recorded What is the highest level of school you have completed or the highest degree you have received? Professional school degree (e.g., MD, DDS, DVM, NACHO) 10/10/2020 Sex and Gender Information Value Date Recorded Sex Assigned at Male 05/13/2021 10:11 AM FOOD AND BEVERAGE ANALYST Gender Identity Male 11/02/2017 7:22 PM [...] 14 (fourteen) days. 1 each 1 06/09/2022 iron,carbonyl-vitamin C (VITRON-C) 65 mg iron- [address] tablet Take 65 mg of iron by mouth daily. Do not crush or chew. 0 loperamide (IMODIUM A-D) 2 mg tablet Take 2 mg by mouth as needed. 0 miscellaneous medical supply [facility] CPAP Supplies See Instructions, CPAP machine, mask 1 ea x 4 refills, headgear 1 ea x 2 refills, tubing 1 ea x 4 refills, filters 2 ea per month, tub 1 ea x 2 refills, mask seal 1 ea x 2 refills DX G47.33, length of need 99, 1 each, 0 Refill(s) 0 10/20/2016 miscellaneous medical supply [facility] Head Gear for CPAP Machine See Instructions, fax to patient at [phone], 1 each 0 01/17/2014 MULTIVITAMIN ORAL Daily Multiple Vitamins See Instructions, Take 1 tablet by mouth daily. 0 07/23/2013 multivitamin-eye (PRESERVISION LUTEIN) 226 mg-90 mg-5 mg-0.8 mg capsule Take 2 capsules by mouth daily. 0 ONETOUCH DELICA LANCETS 33 gauge misc 3 08/02/2018 OneTouch Ultra Test stripsIndications:Diab etes [...] at bedtime. 30 mL 3 01/27/2022 03/16/2023 lisinopriL (PRINIVIL,ZESTRIL) 40 mg tabletIndications:Hype rtension And Chronic Kidney Disease Stage 3 (HCC) Take 1 tablet (40 mg total) by mouth daily. 90 tablet 3 01/27/2022 07/29/2022 prednisoLONE acetate (PRED FORTE) 1 % ophthalmic suspension Follow prednisolone taper in left eye per Dr. Paez's handout 5 mL 0 07/04/2022 11/06/2022 predniSONE (DELTASONE) 5 mg tablet TAKE ONE TABLET BY MOUTH ONE TIME DAILY 90 tablet 3 10/15/2021 10/23/2022 torsemide (DEMADEX) 10 mg tablet Take 1 tablet (10 mg total) by mouth daily. 90 tablet 3 03/31/2022 07/29/2022 torsemide (DEMADEX) 20 mg tablet TAKE ONE TABLET BY MOUTH ONE TIME DAILY 90 tablet 1 01/13/2022 09/03/2022 documented as of this encounter Plan of Treatment Upcoming Encounters Date Type Department Care Team (Latest Contact Info) Description 05/28/2023 10:00 AM FOOD AND BEVERAGE ANALYST Appointment Department of Laboratory Medicine in [place], [place] [address] [place] [phone] Mónica Portillo APRN, C.N.P., M.S. [address] [place] [phone] 05/28/2023 10:10 AM FOOD AND BEVERAGE ANALYST Appointment Department of Laboratory Medicine in [place], [place] [address] [place] [phone] Mónica Portillo APRN, C.N.P., M.S. [address] [place] [phone] 05/29/2023 8:00 AM FOOD AND BEVERAGE ANALYST Office Visit Department of Community Internal Medicine in [place], [place] [address] [place] [phone] Clover Delaney M.D. [address] [place] [phone] Discharge Disposition: Home or Self Care 05/29/2023 10:15 AM FOOD AND BEVERAGE ANALYST Appointment Department of Radiology, [facility] in [place], [place] [address] [place] [phone] Mónica Portillo APRN, C.N.P., M.S. [address] [place] [phone] 05/29/2023 1:00 PM FOOD AND BEVERAGE ANALYST Procedure visit Department of Urology in [place], [place] [address] [place] [phone] Mónica Portillo APRN, C.N.P., M.S. [address] [place] [phone] 05/29/2023 3:00 PM FOOD AND BEVERAGE ANALYST Education Division of Nephrology and Hypertension in [place], [place] [address] [place] [phone] Mónica Portillo APRN, C.N.Allie., M.S. [address] [place] [phone] Sandeep Galicia R.N. [address] [place] [phone] 05/29/2023 4:00 PM FOOD AND BEVERAGE ANALYST Comprehensive Visit Division of Nephrology and Hypertension in [place], [place] [address] [place] [phone] Sera Casiano M.D., Ph.D. [address] [place] [phone] 06/15/2023 2:00 PM FOOD AND BEVERAGE ANALYST Ancillary Procedure Department of Ophthalmology in [place], [place] [address] [place] [phone] Justin Bunch M.D. [address] [place] [phone] 06/15/2023 2:30 PM FOOD AND BEVERAGE ANALYST Ancillary Procedure Department of Ophthalmology in [place], [place] [address] [place] [phone] Justin Bunch M.D. [address] [place] [phone] 06/15/2023 2:45 PM FOOD AND BEVERAGE ANALYST Office Visit Department of Ophthalmology in [place], [place] [address] [place] [address] Justin Bunch M.D. [address] [place] [address] documented as of this encounter Procedures Procedure Name Priority Date/Time Associated Diagnosis Comments ALBUMIN, RANDOM, U Routine 07/25/2022 10 :10 AM CDT Hypertension And Chronic Kidney Disease Stage 4 (HCC) Anemia Of Chronic Renal Disease URINALYSIS WITH MICROSCOPIC Routine 07/25/2022 10:10 AM CDT Hypertension And Chronic Kidney Disease Stage 4 (HCC) Anemia Of Chronic Renal Disease documented in this encounter Results * (ABNORMAL) Albumin, Random, Urine (07/25/2022 10:10 AM CDT) Microalbumin 974.3 mg/L 07/25/2022 12:56 PM CDT [facility] Creatinine 33 mg/dL 07/25/2022 12:40 PM CDT [facility] Albumin/Creatinin e Ratio 2952(H) <17 mg/g 07/25/2022 12:56 PM CDT [facility] Urine (Urine, Midstream) 07/25/2022 10:10 AM CDT 07/25/2022 11:52 AM CDT Kassandra Couch APRN.N.P., M.S. LAB URINE ORDERABLES [facility] [address] [place] [address], [facility] [place] [address] [place] [phone] * (ABNORMAL) Urinalysis with Microscopic: Urine, Midstream (07/25/2022 10:10 AM CDT) Source Urine, Urine, Midstream 07/25/2022 11:53 AM CDT [facility] Clarity Clear Clear 07/25/2022 12:05 PM CDT [facility] Color Yellow 07/25/2022 12:05 PM CDT [facility] Comment: ----REFERENCE VALUE---- Colorless Yellow Susana Blood Negative Negative 07/25/2022 12:05 PM CDT [facility] Nitrite Negative Negative 07/25/2022 12:05 PM CDT [facility] Leukocyte Esterase Negative Negative 07/25/2022 12:05 PM CDT [facility] Protein >=300(A) mg/dL 07/25/2022 12:05 PM CDT [facility] Comment: ----REFERENCE VALUE---- Negative Trace Glucose Negative Negative mg/dL 07/25/2022 12:05 PM CDT [facility] Ketone Negative Negative mg/dL 07/25/2022 12:05 PM CDT [facility] Bilirubin Negative Negative 07/25/2022 12:05 PM CDT [facility] pH 5.5 5.0 - 8.0 07/25/2022 12:05 PM CDT [facility] Specific [place] 1.010 1.001 - 1.035 07/25/2022 12:05 PM CDT [facility] Urobilinogen 0.2 0.2 - 1.0 mg/dL 07/25/2022 12:05 PM CDT [facility] White Blood Cells None Seen /hpf 07/25/2022 12:06 PM CDT [facility] Comment: ----REFERENCE VALUE---- Males: 0-3 Females: 0-10 Unknown: 0-10 Red Blood Cells Occ-2 0 - 2 /hpf 12:06 PM CDT [facility] Hyaline Casts 1-3 /lpf 07/25/2022 12:06 PM CDT [facility] Urine (Urine, Midstream) 07/25/2022 10:10 AM CDT 07/25/2022 11:52 AM CDT Mónica Portillo APRN C.N.P., M.S. LAB URINE ORDERABLES [facility] [address] [place] [address], [facility] [place] [address] [place] [phone] documented in this encounter Visit Diagnoses Diagnosis Hypertension And Chronic Kidney Disease Stage 4 (HCC) Anemia Of Chronic Renal Disease documented in this encounter Additional Health Concerns Assessment Noted Time PHQ-9 Depression Total Score: 4 06/06/19 23 2:04 PM FOOD AND BEVERAGE ANALYST documented as of this encounter Care Teams Supervisor Abattoir Relationship Specialty Start Date End Date Clover Delaney M.D. [address] [place] [phone] PCP - General Internal Medicine 11/23/17 documented as of this encounter
--- OUTSIDE RECORDS SUMMARY | 2023-05-05 12:04 | XMS_ITS | Encounter Summary ---
Author Name Unknown Organization [facility] Address [address] [place] [address] Care Team Providers Care Physician Specialist Name Role Phone Clover Delaney M.D. Primary Care Provider [phone] Encounter Details Date Type Department Care Team (Late st Contact Info) Description 08/19/2022 Clinical Communication Division of Nephrology and Hypertension, [facility], in [place], [place] [address] [place] [phone] Mónica Portillo, TRIXIE, C.N.P., M.S. [address] [place] [address] Social History Tobacco Use Types Packs/Day Years [...] any clubs o r organizations such as anabaptist groups, unions, fraternal or athletic groups, or [...] Answer Date Recorded PHQ-2 Score 0 06/06/2022 [facility] of Occupat ional Health - Occupational Stress [...] Sex Assigned at Male 05/13/2021 10:11 AM EXHAUST EQUIPMENT OPERATOR Gender Identity Male 11/02/2017 7:22 PM CDT Sexual Orientation Straight 11/02/2017 7: 22 PM CDT documented as of this encounter Plan of Treatment Upcoming Encounters Date Type Department Care Team (Latest Contact Info) Description 05/28/2023 10:00 AM EXHAUST EQUIPMENT OPERATOR Appointment Department of Laboratory Medicine in [place] [address] [place] [address] Mónica Portillo APRN, C.N.P., M.S. [address] [place] [phone] 05/28/2023 10:10 AM EXHAUST EQUIPMENT OPERATOR Appointment Department of Laboratory Medicine in [place] [address] [place] [phone] Mónica Portillo APRN, Kassandra.N.P., M.S. [address] [place] [phone] 05/29/2023 8:00 AM EXHAUST EQUIPMENT OPERATOR Office Visit Department of Community Internal Medicine in [place] [address] [place] [address] Clover Delaney M.D. [address] [place] [phone] Discharge Disposition: Home or Self Care 05/29/2023 10:15 AM EXHAUST EQUIPMENT OPERATOR Appointment Department of Radiology, [facility], in [place], [place] [address] [place] [phone] Mónica Portillo APRN, C.N.P., M.S. [address] [place] [phone] 05/29/2023 1:00 PM EXHAUST EQUIPMENT OPERATOR Procedure visit Department of Urology in [place], [place] [address] [place] [phone] Mónica Portillo APRN, Kassandra.N.P., M.S. [address] [place] [phone] 05/29/2023 3:00 PM EXHAUST EQUIPMENT OPERATOR Education Division of Nephrology and Hypertension in [place], [place] [address] [place] [phone] Mónica Portillo APRN, DrewNJosé LuisP., M.S. [address] [place] [phone] Sandeep Galicia R.N. [address] [place] [phone] 05/29/2023 4:00 PM EXHAUST EQUIPMENT OPERATOR Comprehensive Visit Division of Nephrology and Hypertension in [place], [place] [address] [place] [phone] Sera Casiano M.D., Ph.D. [address] [place] [phone] 06/15/2023 2:00 PM EXHAUST EQUIPMENT OPERATOR Ancillary Procedure Department of Ophthalmology in [place], [place] [address] [place] [phone] Justin Bunch M.D. [address] [place] [phone] 06/15/2023 2:30 PM EXHAUST EQUIPMENT OPERATOR Ancillary Procedure Department of Ophthalmology in [address] [phone] Justin Bunch M.D. [address] [place] [phone] 06/15/2023 2:45 PM EXHAUST EQUIPMENT OPERATOR Office Visit Department of Ophthalmology in [address] [phone] Justin Bunch M.D. [address] [place] [phone] documented as of this encounter Visit Diagnoses Not on filedocumented in this encounter Additional Health Concerns Assessment Noted Time PHQ-9 Depression Total Score: 4 06/06/19 23 2:04 PM EXHAUST EQUIPMENT OPERATOR documented as of this encounter Care Teams Physician Specialist Relationship Specialty Start Date End Date Clover Delaney M.D. [address] [place] [address] PCP - General Internal Medicine 11/23/17 documented as of this encounter
--- OUTSIDE RECORDS SUMMARY | 2023-05-05 12:04 | XMS_ITS | Encounter Summary ---
Author Name Unknown Organization [facility] Address [address] [place] [address] Care Team Providers Care Power Plant Installer Name Role Phone Clover Delaney M.D. Primary Care Provider [phone] Reason for Referral * Outpatient (Routine) - Authorized Specialty Diagnoses / Procedures Referred By Contanthony t Referred To Contact Nutrition Diagnoses Anemia Of Chronic Renal Disease Hypertension And Chronic Kidney Disease Stage 4 (HCC) Mónica Portillo APRN, C.NJosé LuisP., M.S. [address] [place] [phone] [facility] Referral ID Status Reason Start Date Expiration Date V isits Requested Visits Authorized [id number] Authorized 07/29/2022 07/29/2023 1 1 Scheduling Instructions This appointment should ideally be scheduled AFTER the Stationary Fireman Consults, but must at least be scheduled 48 hours after 24-hour urine collection is complete. Virtual visit is acceptable for this dietitian visit. Labs at [facility] and virtual follow up at patient's convenience during the month of August please * Outpatient (Routine) - Closed Specialty Diagnoses / Procedures Referred By Contanthony t Referred To Contact Nephrology and Hypertension Mónica Portillo APRN, C.N.Allie., M.S. [address] [place] [phone] [facility] Referral ID Status Reason Start Date Expiration Date Visits Re quested Visits Authorized [id number] Closed 07/29/2022 07/28/2025 1 1 Scheduling Instructions Labs at [facility] and virtual follow up at patient's convenience during the month of August please Reason for Visit * Reason Comments Nephropathy * Outpatient (Routine) - Closed Specialty Diagnoses / Procedures Referred By Yenny t Referred To Contact Nephrology and Hypertension Mónica Portillo APRN, C.N.Allie., M.S. [address] [place] [phone] [facility] Referral ID Status Reason Start Date Expiration Date Visits Re quested Visits Authorized [id number] Closed 04/10/2022 04/09/2025 1 1 Encounter Details Date Type Department Care Team (Latest Contact Info) Description 07/29/2022 10:00 AM CDT Office Visit Division of Nephrology and Hypertension in [place], [place] [address] [place] [phone] Mónica Portillo APRN, C.N.P., M.S. [address] [place] [phone] Anemia Of Chronic Renal Disease (Primary Dx); Hypertension And Chronic Kidney Disease Stage 4 (HCC) Social History Tobacco Use Types Packs/Day [...] often do you attend chur ch or hindu services? Never 07/28/2022 Do you belong to any clubs o r organizations such as jehovah's witness groups, unions, fraternal or athletic groups, or [...] Score 0 06/06/2022 [facility] [place] of Occupat ional Health - Occupational Stress [...] Sex Assigned at Male 05/13/2021 10:11 AM SUPERINTENDENT COMPRESSOR STATIONS Gender Identity Male 11/02/2017 7:22 PM CDT Sexual Orientation Straight 11/02/2017 7: 22 PM CDT documented as of this encounter Last Filed Vital Signs Vital Sign Reading Time Taken Comments Blood Pressure 179/73 07/29/2022 10:16 AM CDT Pulse 71 07/29/2022 10:16 AM CDT Temperature - - Respiratory Rate - - Oxygen Saturation - - Inhaled Oxygen Concentration - - Weight - - Height - - Body Mass Index - - documented in this encounter Progress Notes * Mónica Portillo APRN, C.N.P., M.S. - 07/29/2022 10:00 AM CDT SUBJECTIVE CHIEF COMPLAINT / REASON FOR VISIT Chief Complaint Patient presents with Nephropathy HISTORY OF PRESENT ILLNESS Mr. Patel is a very pleasant 76 y.o. 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 He was seen for follow-up chronic kidney disease stage 4 March 31, 2022 when creatinine was 3.27. At that time torsemide was increased to 30 mg daily. He presents for ongoing evaluation of chronic kidney disease. 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 He endorses fatigue. Daily oral water intake is typically less than 48 oz.. He tells me that his blood pressure is persistently elevated inclinic. He measures home blood pressures 3-4 times weekly and values range from 130-140 systolic and 70s diastolic. He reports heart rate is always in the 40s upon rising. Heart rate during the day is typically in the 50s. He struggles with diabetic and renal diet. He denies dyspnea, chest pain, chest pressure, syncope, presyncope, hematochezia or melena, dysuria or hematuria. Constitutional: Positive for fatigue. Eyes: Positive for visual problems. The following systems were negative: Skin, ENT, Respiratory, Cardiovascular, Gastrointestinal, Genitourinary, Hematologic, Musculoskeletal, Neurological, Psychiatric OBJECTIVE Vitals: 07/29/22 1016 BP: (!) 179/73 BP Location: Right arm Pulse: 71 PHYSICAL EXAMINATION Constitutional General: He is not in acute distress. Pulmonary Effort: Pulmonary effort is normal. Skin General: Skin is warm and dry. Neurological Mental Status: He is alert and oriented to person, place, and time. Gait: Gait abnormal. Comments: Ambulates with a cane Psychiatric Mood and Affect: Mood normal. Behavior: Behavior normal. ASSESSMENT / PLAN #1 Chronic kidney disease (CKD) stage 4-5, likely multifactorial and secondary to type 2 diabetes mellitus, hypertension, vasculitis history, obesity, secondary FSGS and small-vessel renal disease It was a pleasure to meet Mr. Patel today in clinic. Creatinine has trended upward at 3.44 and CKD-EP I GFR is 18 mL/min. EGFR by Cystatin C is 11 mL/min. Electrolytes are satisfactory. BUN to creatinine ratio is mildly elevated indicating pre renal azotemia. He agrees with plan to reduce torsemide to 20 mg daily. He will discontinue lisinopril and switch to irbesartan 75 mg daily. He will monitor home blood pressure daily with goal BP 130/80 or less. Will plan to uptitrate irbesartan as tolerated by stable creatinine in an effort to reduce severe proteinuria. He is not a candidate for SGL T2 inhibitor due to reduced GFR. He will provide a copy of my anemia management recommendations for 2 Feraheme infusions to his oncologist at the [facility]. Virtual CKD follow-up in 1 month with labs at [facility]. #2 CKD treatment options Today's focus was slowing the progression of renal disease with adequate blood pressure, adequate hydration, glycemic control, avoidance of any nephrotoxic medications and adjusting drug doses for level of estimated glomerular filtration rate (eGFR). He agrees with plan for nephrology registered dietitian referral and I will order renal replacement therapy options Education with follow-up in 1 month. #3 Hypertension Clinic BP is elevated. Recommend switch from lisinopril to irbesartan and reduce torsemide to 20 mgdaily. May need to reduce beta-luis antonio if persistent bradycardia. Anti-Hypertensives carvediloL (COREG) 12.5 mg tablet TAKE ONE TABLET BY MOUTH TWICE A DAY WITH MEALS torsemide (DEMADEX) 20 mg tablet TAKE ONE TABLET BY MOUTH ONE TIME DAILY irbesartan (AVAPRO) 75 mg tablet Take 1 tablet (75 mg total) by mouth daily. #4 Anemia of CKD Hemoglobin has been persistently less than goal. Iron stores are not replete. Recommend 2 Feraheme infusions. KDIGO guidelines recommend trial of IV iron if an increase in Hb concentration without starting MANJU treatment is desired and TSAT is less than 30% and ferritin is less than 500 ng/ml for adult CKD patients with anemia not on iron or MANJU therapy. #5 Hyperparathyroidism, renal secondary Calcium and PTH are in desired range. Phosphorus is greater than goal. Recommend dietary phosphorusmodification and nephrology dietitian referral. #6 Metabolic acidosis screening Bicarbonate is at goal without oral replacement. documented in this encounter Plan of Treatment Upcoming Encounters Date Type Department Care Team (Latest Contact Info) Description 05/28/2023 10:00 AM SUPERINTENDENT COMPRESSOR STATIONS Appointment Department of Laboratory Medicine in [place] [address] [place] [phone] Mónica Portillo APRN, C.N.P., M.S. [address] [place] [phone] 05/28/2023 10:10 AM SUPERINTENDENT COMPRESSOR STATIONS Appointment Department of Laboratory Medicine in [place] [address] [place] [phone] Mónica Portillo APRN, C.N.P., M.S. [address] [place] [phone] 05/29/2023 8:00 AM SUPERINTENDENT COMPRESSOR STATIONS Office Visit Department of Community Internal Medicine in [place] [address] [place] [phone] Clover Delaney M.D. [address] [place] [phone] Discharge Disposition: Home or Self Care 05/29/2023 10:15 AM SUPERINTENDENT COMPRESSOR STATIONS Appointment Department of Radiology, [facility], in [place], [place] [address] [place] [phone] Mónica Portillo APRN, C.N.P., M.S. [address] [place] [phone] 05/29/2023 1:00 PM SUPERINTENDENT COMPRESSOR STATIONS Procedure visit Department of Urology in [place], [place] [address] [place] [phone] Mónica Portillo APRN, C.NTaylor., M.S. [address] [place] [phone] 05/29/2023 3:00 PM SUPERINTENDENT COMPRESSOR STATIONS Education Division of Nephrology and Hypertension in [place], [place] [address] [place] [phone] Mónica Portillo APRN, C.NJosé LuisP., M.S. [address] [place] [phone] Sandeep Galicia R.N. [address] [place] [phone] 05/29/2023 4:00 PM SUPERINTENDENT COMPRESSOR STATIONS Comprehensive Visit Division of Nephrology and Hypertension in [place], [place] [address] [place] [phone] Sera Casiano M.D., Ph.D. [address] [place] [phone] 06/15/2023 2:00 PM SUPERINTENDENT COMPRESSOR STATIONS Ancillary Procedure Department of Ophthalmology in [place], [place] [address] [place] [phone] Justin Bunch M.D. [address] [place] [phone] 06/15/2023 2:30 PM SUPERINTENDENT COMPRESSOR STATIONS Ancillary Procedure Department of Ophthalmology in [place], [place] [address] [place] [address] Justin Bunch M.D. [address] [place] [address] 06/15/2023 2:45 PM SUPERINTENDENT COMPRESSOR STATIONS Office Visit Department of Ophthalmology in [place], [place] [address] [place] [address] Justin Bunch M.D. [address] [place] [address] Scheduled Referrals Name Type Priority Associated Diagnoses Order Schedule Nephrology and Hypertension office visit (clinic) Outpatient Referral Routine Expected: 09/01/2022, Expires: 10/28/2023 Nutrition - Nephrology medical nutrition therapy consult (clinic) Outpatient Referral Routine Anemia Of Chronic Renal Disease Hypertension And Chronic Kidney Disease Stage 4 (HCC) Expected: 09/01/2022, Expires: 10/29/2023 documented as of this encounter Results * Ferritin (09/01/2022 9:12 AM CDT) Ferritin, S 190 31 - 409 mcg/L 09/01/2022 12:40 PM CDT [facility] Comment: Biotin has been identified by the inspector hot forgings as a potential interfering substance. Higher concentrations of biotin may be found in multivitamins, hair/nail supplements, and workout supplements. If the result does not match clinical observations, repeat testing after patient refrains from the use of supplements for at least 12 hours. Blood (Blood, Venous) 09/01/2022 9:12 AM CDT 09/01/2022 12:11 PM CDT Mónica Portillo APRN C.N.P., M.S. LAB BLOOD ADD-ON [facility] [address] [place] [address], [facility] in [place] [address] [place] [phone] * Iron and Total Iron-Binding Capacity (09/01/2022 9:12 AM CDT) Iron 59 50 - 150 mcg/dL 09/01/2022 12:32 PM CDT [facility] Total Iron Binding Capacity 262 250 - 400 mcg/dL 09/01/2022 12:32 PM CDT [facility] Percent Saturation 23 14 - 50 % 09/01/2022 12:32 PM CDT [facility] Blood (Blood, Venous) 09/01/2022 9:12 AM CDT 09/01/2022 12:11 PM CDT Drew Couch APRNNTaylor., M.S. LAB BLOOD ADD-ON [facility] [address] [place] [address], [facility] in [address] [phone] * (ABNORMAL) Uric Acid (09/01/2022 9:12 AM CDT) Uric Acid, P 8.7(H) 3.7 - 8.0 mg/dL 09/01/2022 12:33 PM CDT [facility] Blood (Blood, Venous) 09/01/2022 9:12 AM CDT 09/01/2022 12:10 PM CDT Kassandra Couch APRN.N.P., M.S. LAB BLOOD ADD-ON [facility] [address] [place] [address], [facility] in [address] [phone] * (ABNORMAL) Parathyroid Hormone (PTH) (09/01/2022 9:12 AM CDT) Parathyroid Hormone (PTH), S 114(H) 15 - 65 pg/mL 09/01/2022 12:40 PM CDT [facility] Comment: Biotin has been identified by the inspector hot forgings as a potential interfering substance. Higher concentrations of biotin may be found in multivitamins, hair/nail supplements, and workout supplements. If the result does not match clinical observations, repeat testing after patient refrains from the use of supplements for at least 12 hours. Blood (Blood, Venous) 09/01/2022 9:12 AM CDT 09/01/2022 12:11 PM CDT Drew Couch APRNN.P., M.S. LAB BLOOD ADD-ON [facility] [address] [place] [address], [facility] [place] [address] [place] [phone] * (ABNORMAL) Renal Function Panel (09/01/2022 9:12 AM CDT) Potassium, P 4.6 3.6 - 5.2 mmol/L 09/01/2022 12:33 PM CDT [facility] Sodium, P 142 135 - 145 mmol/L 09/01/2022 12:33 PM CDT [facility] Chloride, P 107 98 - 107 mmol/L 09/01/2022 12:33 PM CDT [facility] Bicarbonate, P 22 22 - 29 mmol/L 09/01/2022 12:33 PM CDT [facility] Anion Gap, P 13 7 - 15 09/01/2022 12:33 PM CDT [facility] BUN (Blood Urea Nitrogen), P 63(H) 8 - 24 mg/dL 09/01/2022 12:33 PM CDT [facility] Creatinine 3.10(H) 0.74 - 1.35 mg/dL 09/01/2022 12:33 PM CDT [facility] Estimated GFR (eGFR) 20(L) >=60 mL/min/BSA 09/01/2022 12:33 PM CDT [facility] Comment: Estimated GFR calculated using the 2020 CKD_EPI creatinine equation. Calcium, Total, P 8.8 8.8 - 10.2 mg/dL 09/01/2022 12:33 PM CDT [facility] Glucose, P 113 70 - 140 mg/dL 09/01/2022 12:33 PM CDT [facility] Albumin, P 3.6 3.5 - 5.0 g/dL 09/01/2022 12:33 PM CDT [facility] Phosphorus (Inorganic), P 5.1(H) 2.5 - 4.5 mg/dL 09/01/2022 12:33 PM CDT [facility] Blood (Blood, Venous) 09/01/2022 9:12 AM CDT 09/01/2022 12:10 PM CDT Mónica Portillo APRN, C.N.P., M.S. LAB BLOOD ADD-ON [facility] [address] [place] [address], [facility] [place] [address] [place] [address] * (ABNORMAL) CBC without Differential (09/01/2022 9:12 AM CDT) Hemoglobin 8.9(L) 13.2 - 16.6 g/dL 09/01/2022 12:30 PM CDT [facility] Hematocrit 28.7(L) 38.3 - 48.6 % 09/01/2022 12:30 PM CDT [facility] Erythrocytes 2.99(L) 4.35 - 5.65 x10(12)/L 09/01/2022 12:30 PM CDT [facility] MCV 96.0 78.2 - 97.9 fL 09/01/2022 12:30 PM CDT [facility] RBC Distrib Width 15.2(H) 11.8 - 14.5 % 09/01/2022 12:30 PM CDT [facility] Platelet Count 202 135 - 317 x10(9)/L 09/01/2022 12:30 PM CDT [facility] Leukocytes 9.2 3.4 - 9.6 x10(9)/L 09/01/2022 12:30 PM CDT [facility] Blood (Blood, Venous) 09/01/2022 9:12 AM CDT 09/01/2022 12:11 PM CDT Drew Couch APRNNTaylor., M.S. LAB BLOOD ADD-ON Performing Organization Address City/[facility] Co de Phone Number [facility] [address] [place] [address], [facility] [place] [address] [place] [phone] * (ABNORMAL) Albumin, Random, Urine (09/01/2022 9:08 AM CDT) Microalbumin 1436.4 mg/L 09/01/2022 1:45 PM CDT [facility] Creatinine 42 mg/dL 09/01/2022 12:49 PM CDT [facility] Albumin/Creatinin e Ratio 3420(H) <17 mg/g 09/01/2022 1:45 PM CDT [facility] Urine (Urine, Midstream) 09/01/2022 9:08 AM CDT 09/01/2022 12:09 PM CDT Drew Couch APRNNTaylor., M.S. LAB URINE ORDERABLES Performing Organization Address [facility] Co de Phone Number [facility] [address] [place] [address], [facility] [place] [address] [place] [address], [place] [phone] * (ABNORMAL) Urinalysis with Microscopic: Urine, Midstream [...] 8.0 09/01/2022 12:24 PM CDT [facility] [address] 1.010 1.001 - 1.035 09/01/2022 12:24 PM [...] 9:08 AM CDT 09/01/2022 12:09 PM CDT Mónica Portillo APRN C.N.P., M.S. LAB URINE ORDERABLES [facility] [address] [place] [phone], [facility] [place] [address] [phone] documented in this encounter Visit Diagnoses Diagnosis Anemia Of Chronic Renal Disease- Primary Hypertension And Chronic Kidney Disease Stage 4 (HCC) documented in this encounter Additional Health Concerns Assessment Noted Time PHQ-9 Depression Total Score: 4 06/06/19 23 2:04 PM SUPERINTENDENT COMPRESSOR STATIONS documented as of this encounter Care Teams Power Plant Installer Relationship Specialty Start Date End Date Clover Delaney M.D. [address] [phone] PCP - General Internal Medicine 11/23/17 documented as of this encounter
--- OUTSIDE RECORDS SUMMARY | 2023-05-05 12:04 | XMS_ITS | Encounter Summary ---
Author Name Unknown Organization [facility] Address [address] [place] [address] Care Team Providers Care Powertrain Design Engineer Name Role Phone Clover Delaney M.D. Primary Care Provider +1- [phone] Encounter Details Date Type Department Care Team (Latest Contact Info) Description 09/01/2022 9:03 AM CDT - 09/01/2022 11:59 PM CDT Hospital Encounter Department of Laboratory Medicine in [address] [place] [phone] Mónica Portillo, TRIXIE, C.N.P., M.S. [address] [place] [phone] Anemia Of Chronic Renal Disease; Hypertension And [...] How often do you attend chur or gnosticist services? Never 07/28/2022 Do you [...] Answer Date Recorded PHQ-2 Score 0 06/06/2022 [facility] of Occupat ional Health - Occupational Stress [...] Sex Assigned at Male 05/13/2021 10:11 AM PHLEBOTOMIST MEDICAL LAB ASSISTANT Gender Identity Male 11/02/2017 7:22 PM CDT [...] mouth as needed. 0 miscellaneous medical supply [facility] CPAP Supplies See Instructions, CPAP machine, mask 1 ea x 4 refills, headgear 1 ea x 2 refills, tubing 1 ea x 4 refills, filters 2 ea per month, tub 1 ea x 2 refills, mask seal 1 ea x 2 refills DX G47.33, length of need 99, 1 each, 0 Refill(s) 0 10/20/2016 miscellaneous medical supply [facility] Head Gear for CPAP Machine See Instructions, fax to patient at [phone], 1 each 0 01/17/2014 MULTIVITAMIN ORAL Daily Multiple Vitamins See Instructions, Take 1 tablet by mouth daily. 0 07/23/2013 multivitamin-eye (PRESERVISION LUTEIN) 226 mg-90 mg-5 mg-0.8 mg capsule Take 2 capsules by mouth daily. 0 CitymapsTOUCH DELICA LANCETS 33 gauge misc 3 08/02/2018 ApartamaTouch Ultra Test stripsIndications:Diab etes Mellitus Type 2 [...] (Latest Contact Info) Description 05/28/2023 10:00 AM PHLEBOTOMIST MEDICAL LAB ASSISTANT Appointment Department of Laboratory Medicine in [place] [address] [place] [address] Mónica Portillo APRN, C.N.P., M.S. [address] [place] [phone] 05/28/2023 10:10 AM PHLEBOTOMIST MEDICAL LAB ASSISTANT Appointment Department of Laboratory Medicine in [place] [address] [place] [address] Mónica Portillo APRN, C.N.P., M.S. [address] [place] [phone] 05/29/2023 8:00 AM PHLEBOTOMIST MEDICAL LAB ASSISTANT Office Visit Department of Community Internal Medicine in [place] [address] [place] [address] Clover Delaney M.D. [address] [place] [phone] Discharge Disposition: Home or Self Care 05/29/2023 10:15 AM PHLEBOTOMIST MEDICAL LAB ASSISTANT Appointment Department of Radiology, [facility], in [place], [place] [address] [place] [phone] Mónica Portillo APRN, C.N.P., M.S. [address] [place] [phone] 05/29/2023 1:00 PM PHLEBOTOMIST MEDICAL LAB ASSISTANT Procedure visit Department of Urology in [place], [place] [address] [place] [phone] Mónica Portillo APRN, C.N.P., M.S. [address] [place] [phone] 05/29/2023 3:00 PM PHLEBOTOMIST MEDICAL LAB ASSISTANT Education Division of Nephrology and Hypertension in [place], [place] [address] [place] [phone] Mónica Portillo APRN, Buddy., M.S. [address] [place] [phone] Sandeep Galicia R.N. [address] [place] [phone] 05/29/2023 4:00 PM PHLEBOTOMIST MEDICAL LAB ASSISTANT Comprehensive Visit Division of Nephrology and Hypertension in [place], [place] [address] [place] [phone] Sera Casiano M.D., Ph.D. [address] [place] [phone] 06/15/2023 2:00 PM PHLEBOTOMIST MEDICAL LAB ASSISTANT Ancillary Procedure Department of Ophthalmology in [place], [place] [address] [place] [phone] Justin Bunch M.D. [address] [place] [phone] 06/15/2023 2:30 PM PHLEBOTOMIST MEDICAL LAB ASSISTANT Ancillary Procedure Department of Ophthalmology in [place], [place] [address] [place] [phone] Justin Bunch M.D. [address] [place] [phone] 06/15/2023 2:45 PM PHLEBOTOMIST MEDICAL LAB ASSISTANT Office Visit Department of Ophthalmology in [address] [phone] Justin Bunch M.D. [address] [place] [phone] documented as of this encounter Procedures Procedure Name Priority Date/Time Associated Diagnosis Comments RENAL FUNCTION PANEL, S Routine 09/01/2022 9:12 AM CDT Anemia Of Chronic Renal Disease Hypertension And Chronic Kidney Disease Stage 4 (HCC) IRON AND TOT IRON-BINDING CAPACITY, S/P Routine 09/01/2022 9:12 AM CDT Anemia Of Chronic Renal Disease Hypertension And Chronic Kidney Disease Stage 4 (HCC) CBC WITHOUT DIFFERENTIAL, B Routine 09/01/2022 9:12 AM CDT Anemia Of Chronic Renal Disease Hypertension And Chronic Kidney Disease Stage 4 (HCC) URIC ACID, S/P Routine 09/01/2022 9:12 AM CDT Anemia Of Chronic Renal Disease Hypertension And Chronic Kidney Disease Stage 4 (HCC) PARATHYROID HORMONE (PTH), S Routine 09/01/2022 9:12 AM CDT Anemia Of Chronic Renal Disease Hypertension And Chronic Kidney Disease Stage 4 (HCC) FERRITIN, S Routine 09/01/2022 9:12 AM CDT Anemia Of Chronic Renal Disease Hypertension And Chronic Kidney Disease Stage 4 (HCC) documented in this encounter Results * Ferritin (09/01/2022 9:12 AM CDT) Ferritin, S 190 31 - 409 mcg/L 09/01/2022 12:40 PM CDT [facility] Comment: Biotin has been identified by the manager heavy equipment as a potential interfering substance. Higher concentrations of biotin may be found in multivitamins, hair/nail supplements, and workout supplements. If the result does not match clinical observations, repeat testing after patient refrains from the use of supplements for at least 12 hours. Blood (Blood, Venous) 09/01/2022 9:12 AM CDT 09/01/2022 12:11 PM CDT Mónica Portillo APRN, C.N.P., M.S. LAB BLOOD ADD-ON [facility] [address] [place] [address], [facility] [place] [phone] * Iron and Total Iron-Binding Capacity (09/01/2022 9:12 AM CDT) Iron 59 50 - 150 mcg/dL 09/01/2022 12:32 PM CDT [facility] Total Iron Binding Capacity 262 250 - 400 mcg/dL 09/01/2022 12:32 PM CDT [facility] Percent Saturation 23 14 - 50 % 09/01/2022 12:32 PM CDT [facility] Blood (Blood, Venous) 09/01/2022 9:12 AM CDT 09/01/2022 12:11 PM CDT Mónica Portillo APRN, Kassandra.N.P., M.S. LAB BLOOD ADD-ON [facility] [place] [address], [facility] [place] [address] * (ABNORMAL) Uric Acid (09/01/2022 9:12 AM CDT) Uric Acid, P 8.7(H) 3.7 - 8.0 mg/dL 09/01/2022 12:33 PM CDT [facility] Blood (Blood, Venous) 09/01/2022 9:12 AM CDT 09/01/2022 12:10 PM CDT Kassandra Couch APRN.N.P., M.S. LAB BLOOD ADD-ON [facility] [address] [place] [address], [facility] [place] [address] * (ABNORMAL) Parathyroid Hormone (PTH) (09/01/2022 9:12 AM CDT) Parathyroid Hormone (PTH), S 114(H) 15 - 65 pg/mL 09/01/2022 12:40 PM CDT [facility] Comment: Biotin has been identified by the manager heavy equipment as a potential interfering substance. Higher concentrations of biotin may be found in multivitamins, hair/nail supplements, and workout supplements. If the result does not match clinical observations, repeat testing after patient refrains from the use of supplements for at least 12 hours. Blood (Blood, Venous) 09/01/2022 9:12 AM CDT 09/01/2022 12:11 PM CDT Mónica Portillo APRN, C.N.P., M.S. LAB BLOOD ADD-ON [facility] [address] [place] [address], [facility] [place] [address] [place] [address] * (ABNORMAL) Renal Function Panel (09/01/2022 9:12 [...] Kassandra Couch APRN.N.P., M.S. LAB BLOOD ADD-ON [facility] [address] [place] [address], [facility] [place] [address] [place] [address], [place] [address] * (ABNORMAL) CBC without Differential (09/01/2022 9:12 [...] CDT 09/01/2022 12:11 PM CDT Mónica Portillo APRN, C.N.P., M.S. LAB BLOOD ADD-ON [facility] [address] [address], [facility] [place] [address] [place] [phone] documented in this encounter Visit Diagnoses Diagnosis Anemia Of Chronic Renal Disease Hypertension And Chronic Kidney Disease Stage 4 (HCC) documented in this encounter Additional Health Concerns Assessment Noted Time PHQ-9 Depression Total Score: 4 06/06/19 23 2:04 PM PHLEBOTOMIST MEDICAL LAB ASSISTANT documented as of this encounter Care Teams Powertrain Design Engineer Relationship Specialty Start Date End Date Clover Delaney M.D. [facility] [place] [phone] PCP - General Internal Medicine 11/23/17 documented as of this encounter
--- OUTSIDE RECORDS SUMMARY | 2023-05-05 12:04 | XMS_ITS | Encounter Summary ---
Author Name Unknown Organization [facility] Address [address] [place] [id number] Care Team Providers Care Compensation Intern Name Role Phone Clover Delaney M.D. Primary Care Provider +1- [phone] Reason for Visit * Reason Onset Date Comments infusions 08/08/2022 Encounter Details Date Type Department Care Team (Late st Contact Info) Description 08/08/2022 Clinical Communication Division of Nephrology and Hypertension, [facility], in [place], [place] [address] [place] [phone] Mónica Portillo, TRIXIE, C.N.P., M.S. [address] [place] [phone] infusions Social History Tobacco Use Types Packs/Day Years [...] often do you attend chur ch or bahai services? Never 07/28/2022 Do you belong to any clubs o r organizations such as restorationism groups, unions, fraternal or athletic groups, or [...] Date Recorded PHQ-2 Score 0 06/06/2022 [facility] of Occupat ional Health - Occupational Stress [...] Sex Assigned at Male 05/13/2021 10:11 AM HOME SECURITY PROFESSIONAL Gender Identity Male 11/02/2017 7:22 PM CDT Sexual Orientation Straight 11/02/2017 7: 22 PM CDT documented as of this encounter Plan of Treatment Upcoming Encounters Date Type Department Care Team (Latest Contact Info) Description 05/28/2023 10:00 AM HOME SECURITY PROFESSIONAL Appointment Department of Laboratory Medicine in [place], [place] [address] [place] [address] Mónica Portillo APRN, C.N.P., M.S. [address] [place] [phone] 05/28/2023 10:10 AM HOME SECURITY PROFESSIONAL Appointment Department of Laboratory Medicine in [place], [place] [address] [place] [address] [address] Mónica Portillo APRN, Kassandra.N.P., M.S. [address] [place] [phone] 05/29/2023 8:00 AM HOME SECURITY PROFESSIONAL Office Visit Department of Community Internal Medicine in [place], [place] [address] [place] [address] [address] Clover Delaney M.D. [address] [place] [phone] Discharge Disposition: Home or Self Care 05/29/2023 10:15 AM HOME SECURITY PROFESSIONAL Appointment Department of Radiology, [facility], in [place], [place] [address] [place] [phone] Mónica Portillo APRN, Kassandra.N.P., M.S. [address] [place] [phone] 05/29/2023 1:00 PM HOME SECURITY PROFESSIONAL Procedure visit Department of Urology in [place], [place] [address] [place] [phone] Mónica Portillo APRN, Kassandra.N.P., M.S. [address] [place] [phone] 05/29/2023 3:00 PM HOME SECURITY PROFESSIONAL Education Division of Nephrology and Hypertension in [place], [place] [address] [place] [phone] Mónica Portillo APRN, C.N.P., M.S. [address] [place] [phone] Sandeep Galicia R.N. [address] [place] [phone] 05/29/2023 4:00 PM HOME SECURITY PROFESSIONAL Comprehensive Visit Division of Nephrology and Hypertension in [place], [place] [address] [place] [phone] Sera Casiano M.D., Ph.D. [address] [place] [phone] 06/15/2023 2:00 PM HOME SECURITY PROFESSIONAL Ancillary Procedure Department of Ophthalmology in [place], [place] [address] [place] [phone] Justin Bunch M.D. [address] [place] [phone] 06/15/2023 2:30 PM HOME SECURITY PROFESSIONAL Ancillary Procedure Department of Ophthalmology in [address] [phone] Justin Bunch M.D. [address] [place] [phone] 06/15/2023 2:45 PM HOME SECURITY PROFESSIONAL Office Visit Department of Ophthalmology in [address] [phone] Justin Bunch M.D. [address] [place] [phone] documented as of this encounter Visit Diagnoses Not on filedocumented in this encounter Additional Health Concerns Assessment Noted Time PHQ-9 Depression Total Score: 4 06/06/19 23 2:04 PM HOME SECURITY PROFESSIONAL documented as of this encounter Care Teams Compensation Intern Relationship Specialty Start Date End Date Clover Delaney M.D. [address] [place] [phone] PCP - General Internal Medicine 11/23/17 documented as of this encounter
--- OUTSIDE RECORDS SUMMARY | 2023-05-05 12:04 | XMS_ITS | Encounter Summary ---
Author Name Unknown Organization [facility] Address [address] [place] [address] Care Team Providers Care Wing Coverer Name Role Phone Clover Delaney M.D. Primary Care Provider +1- [phone] Reason for Visit * Reason Onset Date Comments Shortness of Breath 09/02/2022 Encounter Details Date Type Department Care Team (Late st Contact Info) Description 09/02/2022 Nurse Triage Department of Community Internal Medicine in [address] [place] [phone] Rachel Victoria, R.N. [address] [phone] Shortness of Breath Social History Tobacco Use Types Packs/Day Years [...] often do you attend chur ch or hinduism services? Never 07/28/2022 Do you belong to any clubs o r organizations such as zoroastrianism groups, unions, fraternal or athletic groups, or [...] Answer Date Recorded PHQ-2 Score 0 06/06/2022 [facility] - Occupational Stress Questionnaire [...] Sex Assigned at Male 05/13/2021 10:11 AM FACILITIES OPERATIONS TECHNICIAN Gender Identity Male 11/02/2017 7:22 PM CDT Sexual Orientation Straight 11/02/2017 7: 22 PM CDT documented as of this encounter Miscellaneous Notes * Telephone Encounter - Rachel Victoria R.N. - 09/02/2022 12:07 PM CDT Chief Complaint / Reason for Call Patient is a 76 y.o. male calling regarding Shortness of Breath. Assessment Concern: Patient is having shortness of breath with exertion and extreme fatigue. Denies shortness of breat at rest. States symptoms started when he went on a trip to [place] on 08/12/22 and have continued. States he is scheduled for an iron infusion tomorrow. Present for: since 08/12/22 Home cares tried: none Calling to request: appointment The recommended disposition is See a health care provider within 4 hours. Patient was warm transferred to, Dionna, Patient Appointment Woods Rider at the clinic for further assistance. Patient provided education on options if no clinic access is available within the recommended timeframe to include local Urgent Care or Emergency Department. Patient verbalizes understanding of this. Patient declined being seen in ED stating he will wait for available appointment. Reason for Disposition [1] MILD difficulty breathing (e.g., minimal/no SOB at rest, SOB with walking, pulse <100) AND [2] NEW-onset or WORSE than normal Protocols used: Breathing [id number] Care Advice Patient/Caregiver understands and will follow care advice?: Yes, able to teach back CALL BACK IF: * You become worse CARE ADVICE given per Breathing Difficulty (Adult) guideline. documented in this encounter Plan of Treatment Upcoming Encounters Date Type Department Care Team (Latest Contact Info) Description 05/28/2023 10:00 AM FACILITIES OPERATIONS TECHNICIAN Appointment Department of Laboratory Medicine in [place], [place] [address] [place] [place] [address] Mónica Portillo APRN, C.N.P., M.S. [address] [place] [phone] 05/28/2023 10:10 AM FACILITIES OPERATIONS TECHNICIAN Appointment Department of Laboratory Medicine in [place], [place] [address] [phone] Mónica Portillo APRN, C.N.P., M.S. [address] [place] [phone] 05/29/2023 8:00 AM FACILITIES OPERATIONS TECHNICIAN Office Visit Department of Community Internal Medicine in [place], [place] [address] [place] [address] Clover Delaney M.D. [address] [place] [phone] Discharge Disposition: Home or Self Care 05/29/2023 10:15 AM FACILITIES OPERATIONS TECHNICIAN Appointment Department of Radiology, [facility], in [place], [place] [address] [place] [phone] Mónica Portillo APRN, C.N.P., M.S. [address] [place] [phone] 05/29/2023 1:00 PM FACILITIES OPERATIONS TECHNICIAN Procedure visit Department of Urology in [place], [place] [address] [place] [phone] Mónica Portillo APRN, C.N.P., M.S. [address] [place] [phone] 05/29/2023 3:00 PM FACILITIES OPERATIONS TECHNICIAN Education Division of Nephrology and Hypertension in [place], [place] [address] [place] [phone] Mónica Portillo APRN, C.N.P., M.S. [address] [place] [phone] Sandeep Galicia R.N. [address] [place] [phone] 05/29/2023 4:00 PM FACILITIES OPERATIONS TECHNICIAN Comprehensive Visit Division of Nephrology and Hypertension in [place], [place] [address] [place] [phone] Sera Casiano M.D., Ph.D. [address] [place] [phone] 06/15/2023 2:00 PM FACILITIES OPERATIONS TECHNICIAN Ancillary Procedure Department of Ophthalmology in [place], [place] [address] [place] [phone] Justin Bunch M.D. [address] [place] [phone] 06/15/2023 2:30 PM FACILITIES OPERATIONS TECHNICIAN Ancillary Procedure Department of Ophthalmology in [place], [place] [address] [place] [phone] Justin Bunch M.D. [address] [place] [phone] 06/15/2023 2:45 PM FACILITIES OPERATIONS TECHNICIAN Office Visit Department of Ophthalmology in [place], [place] [address] [place] [phone] Justin Bunch M.D. [address] [place] [phone] documented as of this encounter Visit Diagnoses Not on filedocumented in this encounter Additional Health Concerns Assessment Noted Time PHQ-9 Depression Total Score: 4 06/06/19 23 2:04 PM FACILITIES OPERATIONS TECHNICIAN documented as of this encounter Care Teams Wing Coverer Relationship Specialty Start Date End Date Clover Delaney M.D. [address] [place] [phone] PCP - General Internal Medicine 11/23/17 documented as of this encounter
--- OUTSIDE RECORDS SUMMARY | 2023-05-05 12:05 | XMS_ITS | Encounter Summary ---
Author Name Unknown Organization [facility] Address [address] [place] [address] Care Team Providers Care Photonics Engineering Technician Name Role Phone Clover Delaney M.D. Primary Care Provider +1- [phone] Encounter Details Date Type Department Care Team (Late st Contact Info) Description 04/28/2022 Orders Only Department of Community Internal Medicine in [place], [place] [address] [place] [address] [place] [phone] Clover Delaney M.D. [address] [place] [phone] Hypertension And Chronic Kidney Disease Stage 4 (HCC) (Primary Dx) Social History Tobacco Use [...] How often do you attend chur or temple services? 1 to 4 times per year [...] PHQ-2 Answer Date Recorded PHQ-2 Score 0 06/07/2021 [facility] of Occupat ional Health - Occupational Stress [...] slept in a residential (including now)? No 11/17/2021 Depression Answer Date Recor ded PHQ-9 Total Score (max 27) 7 05/17 Nutrition Answer Date Recorded Nutrition: EVOO Fat [...] Sex Assigned at Male 05/13/2021 10:11 AM SEMAPHORE OPERATOR Gender Identity Male 11/02/2017 7:22 PM CDT Sexual Orientation Straight 11/02/2017 7: 22 PM CDT documented as of this encounter Plan of Treatment Upcoming Encounters Date Type Department Care Team (Latest Contact Info) Description 05/28/2023 10:00 AM SEMAPHORE OPERATOR Appointment Department of Laboratory Medicine in [place] [address] [place] [address] Mónica Portillo APRN, C.N.P., M.S. [address] [place] [phone] 05/28/2023 10:10 AM SEMAPHORE OPERATOR Appointment Department of Laboratory Medicine in [place] [address] [place] [address] Mónica Portillo APRN, C.N.P., M.S. [address] [place] [phone] 05/29/2023 8:00 AM SEMAPHORE OPERATOR Office Visit Department of Community Internal Medicine in [place] [address] [place] [address] Clover Delaney M.D. [address] [place] [phone] Discharge Disposition: Home or Self Care 05/29/2023 10:15 AM SEMAPHORE OPERATOR Appointment Department of Radiology, [facility], in [place], [place] [address] [place] [phone] Mónica Portillo APRN, C.N.P., M.S. [address] [place] [phone] 05/29/2023 1:00 PM SEMAPHORE OPERATOR Procedure visit Department of Urology in [place], [place] [address] [place] [phone] Mónica Portillo APRN, C.N.P., M.S. [address] [place] [phone] 05/29/2023 3:00 PM SEMAPHORE OPERATOR Education Division of Nephrology and Hypertension in [place], [place] [address] [place] [phone] Mónica Portillo APRN, C.N.P., M.S. [address] [place] [phone] Sandeep Galicia R.N. [address] [place] [phone] 05/29/2023 4:00 PM SEMAPHORE OPERATOR Comprehensive Visit Division of Nephrology and Hypertension in [place], [place] [address] [place] [phone] Sera Casiano M.D., Ph.D. [address] [place] [phone] 06/15/2023 2:00 PM SEMAPHORE OPERATOR Ancillary Procedure Department of Ophthalmology in [place], [place] [address] [place] [phone] Justin Bunch M.D. [address] [place] [phone] 06/15/2023 2:30 PM SEMAPHORE OPERATOR Ancillary Procedure Department of Ophthalmology in [place], [place] [address] [place] [phone] Justin Bunch M.D. [address] [place] [phone] 06/15/2023 2:45 PM SEMAPHORE OPERATOR Office Visit Department of Ophthalmology in [address] [phone] Justin Bunch M.D. [address] [place] [phone] documented as of this encounter Visit Diagnoses Diagnosis Hypertension And Chronic Kidney Disease Stage 4 (HCC)- Primary documented in this encounter Additional Health Concerns Assessment Noted Time PHQ-9 Depression Total Score: 7 05/17/19 21 11:27 AM SEMAPHORE OPERATOR documented as of this encounter Care Teams Photonics Engineering Technician Relationship Specialty Start Date End Date Clover Delaney M.D. [address] [place] [phone] PCP - General Internal Medicine 11/23/17 documented as of this encounter
--- OUTSIDE RECORDS SUMMARY | 2023-05-05 12:05 | XMS_ITS | Encounter Summary ---
Author Name Unknown Organization [facility] Address [address] [place] [address] Care Team Providers Care Slitter And Rewinder Name Role Phone Clover Delaney M.D. Primary Care Provider [phone] Encounter Details Date Type Department Care Team (Late st Contact Info) Description 06/07/2022 Orders Only Department of Community Internal Medicine in [place], [place] [address] [place] [address] [place] [phone] Clover Delaney M.D. [address] [place] [phone] Social History Tobacco Use Types [...] 11/17/2021 How often do you attend chur ch or buddhism services? 1 to 4 times per year [...] slept in a assisted (including now)? No 11/17/2021 Depression Answer Date [...] Sex Assigned at Male 05/13/2021 10:11 AM ASSOCIATE Gender Identity Male 11/02/2017 7:22 PM CDT Sexual Orientation Straight 11/02/2017 7: 22 PM CDT documented as of this encounter Plan of Treatment Upcoming Encounters Date Type Department Care Team (Latest Contact Info) Description 05/28/2023 10:00 AM ASSOCIATE Appointment Department of Laboratory Medicine in [place], [place] [address] [place] [phone] Mónica Portillo APRN, C.N.P., M.S. [address] [place] [phone] 05/28/2023 10:10 AM ASSOCIATE Appointment Department of Laboratory Medicine in [place], [place] [address] [place] [phone] Mónica Portillo APRN, C.N.P., M.S. [address] [place] [phone] 05/29/2023 8:00 AM ASSOCIATE Office Visit Department of Community Internal Medicine in [place], [place] [address] [place] [phone] Clover Delaney M.D. [address] [place] [phone] Discharge Disposition: Home or Self Care 05/29/2023 10:15 AM ASSOCIATE Appointment Department of Radiology, [facility], in [place], [place] [address] [place] [phone] Mónica Portillo APRN, C.N.P., M.S. [address] [place] [phone] 05/29/2023 1:00 PM ASSOCIATE Procedure visit Department of Urology in [place], [place] [address] [place] [phone] Mónica Portillo APRN, C.N.P., M.S. [address] [place] [phone] 05/29/2023 3:00 PM ASSOCIATE Education Division of Nephrology and Hypertension in [place], [place] [address] [place] [phone] Mónica Portillo APRN, DrewNJosé LuisP., M.S. [address] [place] [phone] Sandeep Galicia R.N. [address] [place] [phone] 05/29/2023 4:00 PM ASSOCIATE Comprehensive Visit Division of Nephrology and Hypertension in [place], [place] [address] [place] [phone] Sera Casiano M.D., Ph.D. [address] [place] [phone] 06/15/2023 2:00 PM ASSOCIATE Ancillary Procedure Department of Ophthalmology in [place], [place] [address] [place] [phone] Justin Bunch M.D. [address] [place] [phone] 06/15/2023 2:30 PM ASSOCIATE Ancillary Procedure Department of Ophthalmology in [address] [phone] Justin Bunch M.D. [address] [place] [phone] 06/15/2023 2:45 PM ASSOCIATE Office Visit Department of Ophthalmology in [address] [phone] Justin Bunch M.D. [address] [place] [phone] documented as of this encounter Visit Diagnoses Not on filedocumented in this encounter Additional Health Concerns Assessment Noted Time PHQ-9 Depression Total Score: 4 06/06/19 23 2:04 PM ASSOCIATE documented as of this encounter Care Teams Slitter And Rewinder Relationship Specialty Start Date End Date Clover Delaney M.D. [address] [place] [phone] PCP - General Internal Medicine 11/23/17 documented as of this encounter
--- OUTSIDE RECORDS SUMMARY | 2023-05-05 12:05 | XMS_ITS | Encounter Summary ---
Author Name Unknown Organization [facility] Address [address] [place] [address] Care Team Providers Care Priming Powder Premix Blender Name Role Phone Clover Delaney M.D. 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 [address] [place] [address] Referral ID Status Reason Start Date Expiration Date V isits Requested Visits Authorized [id number] Authorized 1 1 BRA TEACHER Reason for Visit * Reason Comments Fatigue * Appointment Request (Routine) - Closed Specialty Diagnoses / Procedures Referred By Yenny hunter Referred To Contact [facility] Referral ID Status Reason Start Date Expiration Date Visits Re quested Visits Authorized [id number] Closed 06/02/2022 06/02/2023 1 1 Encounter Details Date Type Department Care Team (Latest Contact Info) Description 06/06/2022 1:30 PM ALGEBRA TEACHER Office Visit Department of Community Internal Medicine in [address] [place] [phone] Clover Delaney M.D. 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 1 to 4 times per year 11/17/2021 Do you belong to any clubs o r organizations such as restorationist groups, unions, fraternal or athletic groups, or [...] Answer Date Recorded PHQ-2 Score 0 06/06/2022 [facility] - Occupational [...] slept in a [facility] (including now)? No 11/17/2021 Depression Answer Date [...] Sex Assigned at Male 05/13/2021 10:11 AM ALGEBRA TEACHER Gender Identity Male 11/02/2017 7:22 PM CDT Sexual Orientation Straight 11/02/2017 7: 22 PM CDT documented as of this encounter Last Filed Vital Signs Vital Sign Reading Time Taken Comments Blood Pressure 182/72 06/06/2022 1:31 PM ALGEBRA TEACHER Pulse 57 06/06/2022 1:31 PM ALGEBRA TEACHER Temperature 35.9 ??C (96.6 ??F) 06/06/2022 1:22 PM CS T Respiratory Rate - - Oxygen Saturation 95% 06/06/2022 1:31 PM ALGEBRA TEACHER Inhaled Oxygen Concentration - - Weight 157 kg (345 lb 10.9 oz) 06/06/2022 1:22 P M ALGEBRA TEACHER Height - - Body Mass Index 50.05 03/31/2022 2:55 PM ALGEBRA TEACHER documented in this encounter Progress Notes * Clover Delaney M.D. - 06/06/2022 1:30 PM CST SUBJECTIVE CHIEF COMPLAINT / REASON FOR VISIT Philip Patel is a 76 y.o. male who presents for evaluation of Fatigue. HISTORY OF PRESENT ILLNESS About 6-8 weeks of fatigue. May be some depression from difficulty with vision and lack of improvement with surgery. Also short of breath and limited exertion. No orthopnea. Uses CPAP and does feel rested when he wakes up after 8 hours, could nap 1 hour in pm and this is refreshing. Has been taking Vitron C 1 tablet daily since March. Tolerating. Had colonoscopy and despite 2 full days of clears and MiraLax prep, had poor prep in the transverse colon. Recommend follow up within 1 year. He saw oncology end of March. Deferred CT since he can't get contrast and labs were stable. At home, blood pressure has been fairly well controlled, 130-150 systolic after increase torsemide.He did note increase UOP after increased torsemide. Will still get some swelling at his ankles. Brought home blood pressure cuff to verify accuracy. Has had a URI with head congestion for 2 weeks. The following portions of the patient's history were reviewed and updated as appropriate: allergies, current medications, family history, medical history, social history, surgical history, and problem list. Social History Tobacco Use Smoking status: Former Packs/day: 0.00 Years: 36.00 Pack years: 0.00 Types: Cigarettes Start date: 1961 Quit date: 12/26/1980 Years since quittin.4 Smokeless tobacco: Never Vaping Use Vaping Use: never used Substance Use Topics Alcohol use: Yes Comment: Maybe one drink per month Drug use: No Allergies Allergen Reactions Epinephrine Palpitations Tachycardia Penicillins Itching and Rash Current Outpatient Medications Medication Sig aspirin 81 mg chewable tablet Chew 1 tablet (81 mg total) daily. BD Ultra-Fine Josefina Pen Needle 32 gauge x needle USE TO INJECT ONCE DAILY carvediloL (COREG) 12.5 mg tablet TAKE ONE TABLET BY MOUTH TWICE A DAY WITH MEALS cholecalciferol (VITAMIN D3) 50 mcg (2,000 Unit) tablet Take 50 mcg by mouth daily. cyanocobalamin (VITAMIN B12) 1,000 mcg tablet Take 1,000 mcg by mouth daily. DME CPAP DME Order glipiZIDE (GLUCOTROL XL) 10 mg 24 hr tablet Take 1 tablet (10 mg total) by mouth daily. insulin glargine (Lantus Solostar U-100 Insulin) 100 unit/mL (3 mL) injection Inject 26 Units underthe skin at bedtime. (Patient taking differently: Inject 18 Units under the skin at bedtime.) lisinopriL (PRINIVIL,ZESTRIL) 40 mg tablet Take 1 tablet (40 mg total) by mouth daily. loperamide (IMODIUM A-D) 2 mg tablet Take 2 mg by mouth 3 (three) times a day as needed. miscellaneous medical supply [facility] CPAP Supplies See Instructions, CPAP machine, mask 1 ea x 4 refills, headgear 1 ea x 2 refills, tubing 1 ea x 4 refills, filters 2 ea per month, tub 1 ea x 2 refills, mask seal 1 ea x 2 refills DX G47.33, length of need 99, 1 each, 0 Refill(s) miscellaneous medical supply [facility] Head Gear for CPAP Machine See Instructions, fax to patient at [phone], 1 each MULTIVITAMIN ORAL Daily Multiple Vitamins See Instructions, Take 1 tablet by mouth daily. multivitamin-eye (PRESERVISION LUTEIN) 226 mg-90 mg-5 mg-0.8 mg capsule Take 2 capsules by mouth daily. ONETOUCH DELICA LANCETS 33 gauge [facility] OneTouch Ultra Test strips Use to test once daily pen needle, diabetic (UltiCare Pen Needle) 32 gauge x 1/4 needle 1 Injection daily. prednisoLONE acetate (PRED FORTE) 1 % ophthalmic suspension Follow prednisolone taper in left eye per Dr. Paez's handout predniSONE (DELTASONE) 5 mg tablet TAKE ONE TABLET BY MOUTH ONE TIME DAILY torsemide (DEMADEX) 10 mg tablet Take 1 tablet (10 mg total) by mouth daily. torsemide (DEMADEX) 20 mg tablet TAKE ONE TABLET BY MOUTH ONE TIME DAILY UltiCare Pen Needle 31 gauge x 1/4 needle Use to inject insulin daily flash glucose sensor (FREESTYLE BRIONNA 10 DAY SENSOR) kit 1 each as directed. (Patient not taking: Reported on 06/06/2022) OBJECTIVE PHYSICAL EXAMINATION BP (!) 182/72 (BP Location: Left arm, Patient Position: Sitting, Cuff Size: Large) Pulse (!) 57 Temp (!) 35.9 ??C (Temporal) Wt (!) 157 kg BMI 50.05 kg/m?? Body mass index is 50.05 kg/m??. General: Alert and in no acute distress HEENT: Pupils are equal, round, and reactive, lids and conjunctivae clear without hemorrhages or exudates Auditory canals are normal without erythema or edema, TMs are pearly coyle and intact without erythema or effusion Oral cavity with moist mucosa, no lesions, posterior pharynx is normal without erythema or drainagepresent Neck: Supple without lymphadenopathy, or bruits Respiratory: Effort is easy, lung sounds are clear to auscultation with no wheezes or crackles Cardiovascular: S1 & S2 are present, normal rate and rhythm, no murmur, no significant edema Abdomen: Soft, non-tender, bowel sounds present Musculoskeletal: Grossly intact, no deformities are noted Skin: Mildly pale, normal temperature and moisture, no rashes or lesions are noted Neuro: Face symmetric. Speech and gait normal Psych: Behavior, mood, affect, cognition and insight are all appropriate DIAGNOSTICS Results for orders placed or performed during the hospital encounter of 04/08/22 Surgical Pathology Result Value Ref Range Report electronically signed by Eva Robles M.D., Ph.D. I verify that I have examined all relevant slides/materials for the specimen(s) and rendered or confirmed the diagnosis. Gross Description A: Received in formalin labeled with the patient's name, medical record number, and colon-colon, ascending colon are six pale ventura-pink polypoid soft tissues, ranging from 0.3-0.7 cm in greatest dimension. Specimens are submitted EN toto in cassette A1. Grossed by MBB. B: Received in formalin labeled with the patient's name, medical record number, and colon-colon, hepatic flexure is a 0.8 x 0.6 x 0.2 cm pale ventura-pink polypoid soft tissue. Specimen is trisected and submitted entirely in cassette B1. Grossed by MBB. Interpretation FINAL DIAGNOSIS A. Colon, ascending colon, polyps, endoscopic biopsy: Fragments of tubular adenoma, low grade dysplasia. B. Colon, hepatic flexure, polyp, endoscopic biopsy: Tubular adenoma, low grade dysplasia. Glucose, POCT Result Value Ref Range Glucose, POCT, B 162 (H) 70 - 140 mg/dL Site Capillary Lab Results Component Value Date HGBA1C 7.5 (H) 03/31/2022 Labs pending at time of visit. 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 Recommend resume checking blood glucose at least 2 times a day (fasting and 2 hourspostprandial) and increase glargine by 2 units every 3 days if consistently over 120 fasting. May also need to increase glipizide in the future. He may also benefit from the immediate feedback of User Replay CGM system, so will try to get that apprved again. #2 Hypertension And Chronic Kidney Disease Stage 4 (HCC) Not well controlled here, but has been well controlled at nephrology. Overview: Was doing well on lisinopril, until INDIO and hyperkalemia. Did not tolerate CCB. 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 Appreciate nephrology assessment. #4 Malignant Neoplasm Of Transverse Colon (HCC) No evidence of active disease. Will use golytely prep for next colonoscopy in 03/2023. 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 #6 Morbid Obesity Body Mass Index 50-50.9 Adult (HCC) Worsened with less physical activity. Will focus on management of DM. Also see #8. #7 Anemia On oral iron supplement. Repeat CBC planned in July. #8 Fatigue As above. Check TSH, CBC, A1c today. PHQ9 is not indicative of major depression but he has entertained the diagnosis. If improvement in his DM control and hgb with iron supplementation does not improve his energy level and mood, consider treating depressive disorder with medication and/or therapy. Other orders - Thyroid Function Richardson; Future; Expected date: 06/06/2022 - Hemoglobin A1c; Future; Expected date: 06/06/2022 - flash glucose sensor (FreeStyle Brionna 2 Sensor) kit; Inject 1 each (1 kit total) under the skin every 14 (fourteen) days., Starting Thu06/09/2022, Normal - flash glucose scanning reader (FREESTYLE BRIONNA) misc; 1 each (1 Device total) every 14 (fourteen)days., Starting Thu06/09/2022, Until Thu06/09/2023, Normal - Nutrition - Medical nutrition therapy consult (clinic); Future; Expected date: 06/09/2022 - Comprehensive Metabolic Panel; Future; Expected date: 06/06/2022 - CBC with Differential, Blood; Future; Expected date: 06/06/2022 Medications, proper use, and common and severe side effects were reviewed with the patient/caregiver. If new or concerning symptoms develop, patient/caregiver understands to seek medical attention. Patient/caregiver verbalizes understanding and acceptance of this plan of care and denies any further needs at this time. Return to clinic July (as previously ordered, after labs) or sooner as needed. I spent 33 minutes on the date of this visit in record review, coordination of care and face to face or virtual patient care regarding the above chronic conditions. Clover Delaney M.D. BRA TEACHER documented in this encounter Plan of Treatment Upcoming Encounters Date Type Department Care Team (Latest Contact Info) Description 05/28/2023 10:00 AM ALGEBRA TEACHER Appointment Department of Laboratory Medicine in [address] [place] [address] Mónica Portillo APRN, C.N.P., M.S. [address] [place] [phone] 05/28/2023 10:10 AM ALGEBRA TEACHER Appointment Department of Laboratory Medicine in [place] [address] [place] [address] Mónica Portillo APRN, Kassandra.N.P., M.S. [address] [place] [phone] 05/29/2023 8:00 AM ALGEBRA TEACHER Office Visit Department of Community Internal Medicine in [place] [address] [place] [address] Clover Delaney M.D. [address] [place] [phone] Discharge Disposition: Home or Self Care 05/29/2023 10:15 AM ALGEBRA TEACHER Appointment Department of Radiology, [facility], in [place], [place] [address] [place] [phone] Mónica Portillo APRN, C.N.P., M.S. [address] [place] [phone] 05/29/2023 1:00 PM ALGEBRA TEACHER Procedure visit Department of Urology in [place], [place] [address] [place] [phone] Mónica Portillo APRN, C.N.P., M.S. [address] [place] [phone] 05/29/2023 3:00 PM ALGEBRA TEACHER Education Division of Nephrology and Hypertension in [place], [place] [address] [place] [phone] Mónica Portillo APRN, C.N.P., M.S. [address] [place] [phone] Sandeep Galicia R.N. [address] [place] [phone] 05/29/2023 4:00 PM ALGEBRA TEACHER Comprehensive Visit Division of Nephrology and Hypertension in [place], [place] [address] [place] [phone] Sera Casiano M.D., Ph.D. [address] [place] [phone] 06/15/2023 2:00 PM ALGEBRA TEACHER Ancillary Procedure Department of Ophthalmology in [address] [phone] Justin Bunch M.D. [address] [place] [phone] 06/15/2023 2:30 PM ALGEBRA TEACHER Ancillary Procedure Department of Ophthalmology in [address] [phone] Justin Bunch M.D. [address] [place] [phone] 06/15/2023 2:45 PM ALGEBRA TEACHER Office Visit Department of Ophthalmology in [address] [phone] Justin Bunch M.D. 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) Expected: 06/09/2022 (Approximate), Expires: 09/07/2023 documented as of this encounter Procedures Procedure Name Priority Date/Time Associated Diagnosis Comments THYROID FUNCTION CASCADE, S Routine 06/06/2022 2:31 PM ALGEBRA TEACHER Hypertension And Chronic Kidney Disease Stage 4 (HCC) Anemia Fatigue CBC WITH DIFFERENTIAL, B Routine 06/06/2022 2:31 PM ALGEBRA TEACHER Anemia HEMOGLOBIN A1C, B Routine 06/06/2022 2:3 0 PM ALGEBRA TEACHER 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 LAB BLOOD ADD-[facility] [address] [place] [address], [facility] RDW[facility] in [place] [address] [place] [phone] * (ABNORMAL) CBC with Differential, Blood (06/06/2022 2:31 PM ALGEBRA TEACHER) Hemoglobin 9.6(L) 13.2 - 16.6 g/dL 06/06/2022 7:44 PM ALGEBRA TEACHER RDWG Hematocrit 30.0(L) 38.3 - 48.6 % 06/06/2022 7:44 PM ALGEBRA TEACHER RDWG Erythrocytes 3.21(L) 4.35 - 5.65 x10(12)/L 06/06/2022 7:44 PM ALGEBRA TEACHER RDWG MCV 93.5 78.2 - 97.9 fL 06/06/2022 7:44 PM ALGEBRA TEACHER RDWG RBC Distrib Width 14.0 11.8 - 14.5 % 06/06/2022 7:44 PM ALGEBRA TEACHER RDWG Platelet Count 226 135 - 317 x10(9)/L 06/06/2022 7:44 PM ALGEBRA TEACHER RDWG Leukocytes 12.0(H) 3.4 - 9.6 x10(9)/L 06/06/2022 7:44 PM ALGEBRA TEACHER RDWG Neutrophils 10.71(H) 1.56 - 6.45 x10(9)/L 06/06/2022 7:44 PM ALGEBRA TEACHER RDWG Lymphocytes 0.62(L) 0.95 - 3.07 x10(9)/L 06/06/2022 7:44 PM ALGEBRA TEACHER RDWG Monocytes 0.52 0.26 - 0.81 x10(9)/L 06/06/2022 7:44 PM ALGEBRA TEACHER RDWG Eosinophils 0.13 0.03 - 0.48 x10(9)/L 06/06/2022 7:44 PM ALGEBRA TEACHER RDWG Basophils 0.04 0.01 - 0.08 x10(9)/L 06/06/2022 7:44 PM ALGEBRA TEACHER RDWG Blood (Blood, Venous) 06/06/2022 2:31 PM ALGEBRA TEACHER 06/06/2022 7:17 PM ALGEBRA TEACHER Clover Delaney M.D. LAB BLOOD ADD[facility] [address] [place] [address], [facility] R[facility] in [place] [address] [place] [address] * (ABNORMAL) Hemoglobin A1c (06/06/2022 2:30 PM ALGEBRA TEACHER) Hemoglobin A1c, B 8.3(H) 4.2 - 5.6 % 06/06/2022 7:59 PM ALGEBRA TEACHER RDWG Comment: Hemoglobin A1c values greater than or equal to 6.5 percent are diagnostic for diabetes mellitus. ??Diagnosis should be confirmed by repeat testing. ??In diabetic patients, HbA1c goals should be discussed with healthcare provider. Blood (Blood, Peripheral Draw) 06/06/2022 2:30 PM ALGEBRA TEACHER 06/06/2022 7:17 PM ALGEBRA TEACHER Clover Delaney M.D. LAB BLOOD ADD-[facility] [address] [place] [address], [facility] in [place] [address] [place] [address] * (ABNORMAL) Comprehensive Metabolic Panel (06/06/2022 2:30 PM ALGEBRA TEACHER) Potassium, P 4.4 3.6 - 5.2 mmol/L 06/06/2022 7:49 PM ALGEBRA TEACHER RDWG Sodium, P 133(L) 135 - 145 mmol/L 06/06/2022 7:49 PM ALGEBRA TEACHER RDWG Chloride, P 98 98 - 107 mmol/L 06/06/2022 7:49 PM ALGEBRA TEACHER RDWG Bicarbonate, P 23 22 - 29 mmol/L 06/06/2022 7:49 PM ALGEBRA TEACHER RDWG Anion Gap, P 12 7 - 15 06/06/2022 7:49 PM ALGEBRA TEACHER RDWG BUN (Blood Urea Nitrogen), P 60(H) 8 - 24 mg/dL 06/06/2022 7:49 PM ALGEBRA TEACHER RDWG Creatinine 2.84(H) 0.74 - 1.35 mg/dL 06/06/2022 7:49 PM ALGEBRA TEACHER RDWG Estimated GFR (eGFR) 22(L) >=60 mL/min/BS A 06/06/2022 7:49 PM ALGEBRA TEACHER RDWG Comment: Estimated GFR calculated using the 2020 CKD_EPI creatinine equation. Calcium, Total, P 8.5(L) 8.8 - 10.2 mg/dL 06/06/2022 7:49 PM ALGEBRA TEACHER RDWG Glucose, P 435(CH) 70 - 140 mg/dL 06/06/2022 8:03 PM ALGEBRA TEACHER RDWG Protein, Total, P 6.4 6.3 - 7.9 g/dL 06/06/2022 7:49 PM ALGEBRA TEACHER RDWG Albumin, P 3.4(L) 3.5 - 5.0 g/dL 06/06/2022 7:49 PM ALGEBRA TEACHER RDWG Aspartate Aminotransferase (AST), P 18 8 - 48 U/L 06/06/2022 7:49 PM ALGEBRA TEACHER RDWG Alkaline Phosphatase, P 95 40 - 129 U/L 06/06/2022 7:49 PM ALGEBRA TEACHER RDWG Alanine Aminotransferase (ALT), P 14 7 - 55 U/L 06/06/2022 7:49 PM ALGEBRA TEACHER RDWG Bilirubin, Total, P 0.3 <=1.2 mg/dL 06/06/2022 7:49 PM ALGEBRA TEACHER RDWG Blood (Blood, Venous) 06/06/2022 2:30 PM ALGEBRA TEACHER 06/06/2022 7:18 PM ALGEBRA TEACHER Clover Delaney M.D. 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 [address] [place] [address] [place] [address] PCP - General Internal Medicine 11/23/17 documented as of this encounter
--- OUTSIDE RECORDS SUMMARY | 2023-05-05 12:05 | XMS_ITS | Encounter Summary ---
Author Name Unknown [facility] Address [address] [place] [address] Care Team Providers Care Allergy Specialist Name Role Phone Clover Delaney M.D. Primary Care Provider +1- [phone] Encounter Details Date Type Department Care Team (Late st Contact Info) Description 06/12/2022 Clinical Communication Department of Community Internal Medicine in [place], [place] [address] [place] [address] [place] [phone] Clover Delaney M.D. [address] [place] [address] Social History Tobacco Use Types [...] often do you attend chur ch or temple services? 1 to 4 times [...] Answer Date Recorded PHQ-2 Score 0 06/06/2022 [facility] ional [facility] - Occupational [...] slept in a halfway (including now)? No 11/17/2021 Depression Answer Date [...] Sex Assigned at Male 05/13/2021 10:11 AM SERVICE ENGINE REPAIRER Gender Identity Male 11/02/2017 7:22 PM CDT Sexual Orientation Straight 11/02/2017 7: 22 PM CDT documented as of this encounter Miscellaneous Notes * Telephone Encounter - Clover Murillo M.S., [place], C.C.T.C. - 06/12/2022 8:35 AM CST ----- Message from Clover Delaney M.D. sent at 06/09/2022 8:48 AM SERVICE ENGINE REPAIRER ----- Sorry if this is duplicate. Can you please check in with patient on BG today or tomorrow (I told him midweek)? Advised to increase glargine by 2 units every 3 days of consistently >120 fasting. Thank you. ICE ENGINE REPAIRER documented in this encounter Plan of Treatment Upcoming Encounters Date Type Department Care Team (Latest Contact Info) Description 05/28/2023 10:00 AM SERVICE ENGINE REPAIRER Appointment Department of Laboratory Medicine in [place] [address] [place] [phone] Mónica Portillo APRN, Kassandra.N.P., M.S. [address] [place] [phone] 05/28/2023 10:10 AM SERVICE ENGINE REPAIRER Appointment Department of Laboratory Medicine in [place] [address] [place] [phone] Mónica Portillo APRN, C.N.P., M.S. [address] [place] [phone] 05/29/2023 8:00 AM SERVICE ENGINE REPAIRER Office Visit Department of Community Internal Medicine in [place], [place] [address] [place] [phone] Clover Delaney M.D. [address] [place] [phone] Discharge Disposition: Home or Self Care 05/29/2023 10:15 AM SERVICE ENGINE REPAIRER Appointment Department of Radiology, [facility], in [place], [place] [address] [place] [phone] Mónica Portillo APRN, C.N.P., M.S. [address] [place] [phone] 05/29/2023 1:00 PM SERVICE ENGINE REPAIRER Procedure visit Department of Urology in [place], [place] [address] [place] [phone] Mónica Portillo APRN, C.N.P., M.S. [address] [place] [phone] 05/29/2023 3:00 PM SERVICE ENGINE REPAIRER Education Division of Nephrology and Hypertension in [place], [place] [address] [place] [phone] Mónica Portillo APRN, Kassandra.N.P., M.S. [address] [place] [phone] Sandeep Galicia R.N. [address] [place] [phone] 05/29/2023 4:00 PM SERVICE ENGINE REPAIRER Comprehensive Visit Division of Nephrology and Hypertension in [place], [place] [address] [place] [phone] Sera Casiano M.D., Ph.D. [address] [place] [phone] 06/15/2023 2:00 PM SERVICE ENGINE REPAIRER Ancillary Procedure Department of Ophthalmology in [place], [place] [address] [place] [phone] Justin Bunch M.D. [address] [place] [phone] 06/15/2023 2:30 PM SERVICE ENGINE REPAIRER Ancillary Procedure Department of Ophthalmology in [place], [place] [address] [place] [address] Justin Bunch M.D. [address] [place] [phone] 06/15/2023 2:45 PM SERVICE ENGINE REPAIRER Office Visit Department of Ophthalmology in [place], [place] [address] [place] [phone] Justin Bunch M.D. [address] [place] [phone] documented as of this encounter Visit Diagnoses Not on filedocumented in this encounter Additional Health Concerns Assessment Noted Time PHQ-9 Depression Total Score: 4 06/06/19 23 2:04 PM SERVICE ENGINE REPAIRER documented as of this encounter Care Teams Allergy Specialist Relationship Specialty Start Date End Date Clover Delaney M.D. [address] [place] [address] PCP - General Internal Medicine 11/23/17 documented as of this encounter
--- OUTSIDE RECORDS SUMMARY | 2023-05-05 12:05 | XMS_ITS | Encounter Summary ---
Author Name Unknown Organization [facility] Address [address] [place] [address] Care Team Providers Care Water Use Inspector Name Role Phone Clover Delaney M.D. Primary Care Provider +1- [phone] Encounter Details Date Type Department Care Team (Late st Contact Info) Description 07/05/2022 Orders Only Department of Community Internal Medicine in [place], [place] [address] [place] [address] [place] [phone] Clover Delaney M.D. [address] [place] [phone] Diabetes Mellitus Type 2 Hyperglycemia (HCC) Social [...] How often do you attend chur or evangelical services? 1 to 4 times per year [...] Answer Date Recorded PHQ-2 Score 0 06/06/2022 [facility] of Occupat ional Health - Occupational Stress [...] Sex Assigned at Male 05/13/2021 10:11 AM WINE PASTEURIZER Gender Identity Male 11/02/2017 7:22 PM CDT Sexual Orientation Straight 11/02/2017 7: 22 PM CDT documented as of this encounter Plan of Treatment Upcoming Encounters Date Type Department Care Team (Latest Contact Info) Description 05/28/2023 10:00 AM WINE PASTEURIZER Appointment Department of Laboratory Medicine in [place], [place] [address] [place] [address] Mónica Portillo APRN, C.N.P., M.S. [address] [place] [phone] 05/28/2023 10:10 AM WINE PASTEURIZER Appointment Department of Laboratory Medicine in [place], [place] [address] [place] [address] [phone] Mónica Portillo APRN, C.N.P., M.S. [address] [place] [phone] 05/29/2023 8:00 AM WINE PASTEURIZER Office Visit Department of Community Internal Medicine in [place], [place] [address] [place] [address] Clover Delaney M.D. [address] [place] [phone] Discharge Disposition: Home or Self Care 05/29/2023 10:15 AM WINE PASTEURIZER Appointment Department of Radiology, [facility], in [place], [place] [address] [place] [phone] Mónica Portillo APRN, C.N.P., M.S. [address] [place] [phone] 05/29/2023 1:00 PM WINE PASTEURIZER Procedure visit Department of Urology in [place], [place] [address] [place] [phone] Mónica Portillo APRN, Kassandra.N.P., M.S. [address] [place] [phone] 05/29/2023 3:00 PM WINE PASTEURIZER Education Division of Nephrology and Hypertension in [place], [place] [address] [place] [phone] Mónica Portillo APRN, C.N.P., M.S. [address] [place] [phone] Sandeep Galicia R.N. [address] [place] [phone] 05/29/2023 4:00 PM WINE PASTEURIZER Comprehensive Visit Division of Nephrology and Hypertension in [place], [place] [address] [place] [phone] Sera Casiano M.D., Ph.D. [address] [place] [phone] 06/15/2023 2:00 PM WINE PASTEURIZER Ancillary Procedure Department of Ophthalmology in [place], [place] [address] [place] [phone] Justin Bunch M.D. [address] [place] [phone] 06/15/2023 2:30 PM WINE PASTEURIZER Ancillary Procedure Department of Ophthalmology in [address] [phone] Justin Bunch M.D. [address] [place] [phone] 06/15/2023 2:45 PM WINE PASTEURIZER Office Visit Department of Ophthalmology in [address] [phone] Justin Bunch M.D. [address] [place] [phone] documented as of this encounter Visit Diagnoses Diagnosis Diabetes Mellitus Type 2 Hyperglycemia (HCC) documented in this encounter Additional Health Concerns Assessment Noted Time PHQ-9 Depression Total Score: 4 06/06/19 23 2:04 PM WINE PASTEURIZER documented as of this encounter Care Teams Water Use Inspector Relationship Specialty Start Date End Date Clover Delaney M.D. [address] [place] [phone] PCP - General Internal Medicine 11/23/17 documented as of this encounter
--- OUTSIDE RECORDS SUMMARY | 2023-05-05 12:05 | XMS_ITS | Encounter Summary ---
Author Name Unknown Organization [facility] Address [address] [place] [address] Care Team Providers Care Licensed Land Surveyor Name Role Phone Clover Delaney M.D. Primary Care Provider +1- [phone] Reason for Visit * Reason Comments Med Refill Encounter Details Date Type Department Care Team (Late st Contact Info) Description 07/04/2022 Refill Department of Ophthalmology in [place], [place] [address] [place] [phone] Jon Juarez M.D. [address] [place] [address] Med Refill Social History Tobacco Use Types [...] you attend chur ch or gnosticist services? 1 to 4 times per year [...] in a group home (including now)? No 11/17/2021 Depression Answer Date [...] Sex Assigned at Male 05/13/2021 10:11 AM HORSES OR MULES TEAMSTER Gender Identity Male 11/02/2017 7:22 PM CDT Sexual Orientation Straight 11/02/2017 7: 22 PM CDT documented as of this encounter Plan of Treatment Upcoming Encounters Date Type Department Care Team (Latest Contact Info) Description 05/28/2023 10:00 AM HORSES OR MULES TEAMSTER Appointment Department of Laboratory Medicine in [place], [place] [address] [place] [address] Mónica Portillo APRN, C.N.P., M.S. [address] [place] [phone] 05/28/2023 10:10 AM HORSES OR MULES TEAMSTER Appointment Department of Laboratory Medicine in [place], [place] [address] [place] [address] Mónica Portillo APRN, C.N.P., M.S. [address] [place] [phone] 05/29/2023 8:00 AM HORSES OR MULES TEAMSTER Office Visit Department of Community Internal Medicine in [place], [place] [address] [place] [address] Clover Delaney M.D. [address] [place] [phone] Discharge Disposition: Home or Self Care 05/29/2023 10:15 AM HORSES OR MULES TEAMSTER Appointment Department of Radiology, [facility], in [place], [place] [address] [place] [phone] Mónica Portillo APRN, C.N.P., M.S. [address] [place] [phone] 05/29/2023 1:00 PM HORSES OR MULES TEAMSTER Procedure visit Department of Urology in [place], [place] [address] [place] [address] Mónica Portillo APRN, C.N.P., M.S. [address] [place] [phone] 05/29/2023 3:00 PM HORSES OR MULES TEAMSTER Education Division of Nephrology and Hypertension in [place], [place] [address] [place] [phone] Mónica Portillo APRN, DrewNJosé LuisP., M.S. [address] [place] [phone] Sandeep Galicia R.N. [address] [place] [phone] 05/29/2023 4:00 PM HORSES OR MULES TEAMSTER Comprehensive Visit Division of Nephrology and Hypertension in [place], [place] [address] [place] [phone] Sera Casiano M.D., Ph.D. [address] [place] [phone] 06/15/2023 2:00 PM HORSES OR MULES TEAMSTER Ancillary Procedure Department of Ophthalmology in [place], [place] [address] [place] [phone] Justin Bunch M.D. [address] [place] [phone] 06/15/2023 2:30 PM HORSES OR MULES TEAMSTER Ancillary Procedure Department of Ophthalmology in [address] [phone] Justin Bunch M.D. [address] [place] [phone] 06/15/2023 2:45 PM HORSES OR MULES TEAMSTER Office Visit Department of Ophthalmology in [address] [phone] Justin Bunch M.D. [address] [place] [phone] documented as of this encounter Visit Diagnoses Not on filedocumented in this encounter Additional Health Concerns Assessment Noted Time PHQ-9 Depression Total Score: 4 06/06/19 23 2:04 PM HORSES OR MULES TEAMSTER documented as of this encounter Care Teams Licensed Land Surveyor Relationship Specialty Start Date End Date Clover Delaney M.D. NPKatlin: [phone] [address] [place] [address] PCP - General Internal Medicine 11/23/17 documented as of this encounter
--- OUTSIDE RECORDS SUMMARY | 2023-05-05 12:05 | XMS_ITS ---
Author Name Unknown Organization [facility] Address [address] [place] [address] Care Team Providers Care Prototype Model Maker Name Role Phone Clover Delaney M.D. Primary Care Provider +1- [phone] Kidney Concrete Journeyman Program Status:Identified (Enrolling) Start date:04/01/2023 Continued Care and Services Coordination
--- OUTSIDE RECORDS SUMMARY | 2023-05-05 12:05 | XMS_ITS | Encounter Summary ---
Author Name Unknown Organization [facility] Address [address] [place] [address] Care Team Providers Care Rn Obgyn Name Role Phone Clover Delaney M.D. Primary Care Provider +1- [phone] Reason for Visit * Reason Comments Med Refill Encounter Details Date Type Department Care Team (Late st Contact Info) Description 05/23/2022 Refill Department of Ophthalmology in [place], [place] [address] [place] [phone] Jon Juarez M.D. [address] [place] [phone] Med Refill Social History Tobacco Use Types [...] attend chur ch or jehovah's witness services? 1 to 4 times per year [...] Answer Date Recorded PHQ-2 Score 0 06/07/2021 [facility] of Occupat ional Health - Occupational [...] [place] [facility] ([place] [facility] No 11/17/2021 Depression Answer Date [...] Sex Assigned at Male 05/13/2021 10:11 AM INDUSTRIAL REGISTERED NURSE Gender Identity Male 11/02/2017 7:22 PM CDT Sexual Orientation Straight 11/02/2017 7: 22 PM CDT documented as of this encounter Miscellaneous Notes * Telephone Encounter - Edwina Hernandez - 05/23/2022 1:13 PM CST I found this communication from 04/18 regarding the pred forte rx: Hi Mr. Patel, I am one of the retina doctors working with Dr. Paez. Please continue to follow your instructions for your drops given to you by Dr. Paez until your appointment with Dr. Bunch in June 2022. Thanks! Jon Juarez MD STRIAL REGISTERED NURSE documented in this encounter Plan of Treatment Upcoming Encounters Date Type Department Care Team (Latest Contact Info) Description 05/28/2023 10:00 AM INDUSTRIAL REGISTERED NURSE Appointment Department of Laboratory Medicine in [place] [address] [place] [address] Mónica Portillo APRN, C.N.P., M.S. [address] [place] [phone] 05/28/2023 10:10 AM INDUSTRIAL REGISTERED NURSE Appointment Department of Laboratory Medicine in [place] [address] [place] [address] Mónica Portillo APRN, C.N.P., M.S. [address] [place] [phone] 05/29/2023 8:00 AM INDUSTRIAL REGISTERED NURSE Office Visit Department of Community Internal Medicine in [place] [address] [place] [address] Clover Delaney M.D. [address] [place] [phone] Discharge Disposition: Home or Self Care 05/29/2023 10:15 AM INDUSTRIAL REGISTERED NURSE Appointment Department of Radiology, [facility], in [place], [place] [address] [place] [phone] Mónica Portillo APRN, C.N.P., M.S. [address] [place] [phone] 05/29/2023 1:00 PM INDUSTRIAL REGISTERED NURSE Procedure visit Department of Urology in [place], [place] [address] [place] [address] Mónica Portillo APRN, C.N.P., M.S. [address] [place] [phone] 05/29/2023 3:00 PM INDUSTRIAL REGISTERED NURSE Education Division of Nephrology and Hypertension in [place], [place] [address] [place] [phone] Mónica Portillo APRN, Kassandra.N.P., M.S. [address] [place] [phone] Sandeep Galicia R.N. [address] [place] [phone] 05/29/2023 4:00 PM INDUSTRIAL REGISTERED NURSE Comprehensive Visit Division of Nephrology and Hypertension in [place], [place] [address] [place] [phone] Sera Casiano M.D., Ph.D. [address] [place] [phone] 06/15/2023 2:00 PM INDUSTRIAL REGISTERED NURSE Ancillary Procedure Department of Ophthalmology in [place], [place] [address] [place] [phone] Justin Bunch M.D. [address] [place] [phone] 06/15/2023 2:30 PM INDUSTRIAL REGISTERED NURSE Ancillary Procedure Department of Ophthalmology in [place], [place] [address] [place] [address] Justin Bunch M.D. [address] [place] [address] 06/15/2023 2:45 PM INDUSTRIAL REGISTERED NURSE Office Visit Department of Ophthalmology in [place], [place] [address] [place] [address] Justin Bunch M.D. [address] [place] [address] documented as of this encounter Visit Diagnoses Not on filedocumented in this encounter Additional Health Concerns Assessment Noted Time PHQ-9 Depression Total Score: 7 05/17/19 21 11:27 AM INDUSTRIAL REGISTERED NURSE documented as of this encounter Care Teams Rn Obgyn Relationship Specialty Start Date End Date Clover Delaney M.D. [address] [place] [address] PCP - General Internal Medicine 11/23/17 documented as of this encounter
--- OUTSIDE RECORDS SUMMARY | 2023-05-05 12:05 | XMS_ITS | Encounter Summary ---
Author Name Unknown Organization [facility] Address [address] [place] [address] Care Team Providers Care Electric Tape Slitter Name Role Phone Clover Delaney M.D. Primary Care Provider +1- [phone] Encounter Details Date Type Department Care Team (Late st Contact Info) Description 06/10/2022 Orders Only Pharmacy Prior Auth RO [phone] Sadia Bernardo Social History Tobacco Use Types Packs/Day Years [...] you attend chur ch or mormonism services? 1 to 4 times per year [...] Answer Date Recorded PHQ-2 Score 0 06/06/2022 [facility] Questionnaire Answer Date Recorded [...] Sex Assigned at Male 05/13/2021 10:11 AM WEIGHT AND TEST BAR CLERK Gender Identity Male 11/02/2017 7:22 PM CDT Sexual Orientation Straight 11/02/2017 7: 22 PM CDT documented as of this encounter Plan of Treatment Upcoming Encounters Date Type Department Care Team (Latest Contact Info) Description 05/28/2023 10:00 AM WEIGHT AND TEST BAR CLERK Appointment Department of Laboratory Medicine in [place] [address] [place] [address] Mónica Portillo APRN, C.N.P., M.S. [address] [place] [phone] 05/28/2023 10:10 AM WEIGHT AND TEST BAR CLERK Appointment Department of Laboratory Medicine in [place], [place] [address] [place] [address] Mónica Portillo APRN, Kassandra.N.P., M.S. [address] [place] [phone] 05/29/2023 8:00 AM WEIGHT AND TEST BAR CLERK Office Visit Department of [facility] Internal Medicine in [place] [address] [place] [phone] Clover Delaney M.D. [address] [place] [phone] Discharge Disposition: Home or Self Care 05/29/2023 10:15 AM WEIGHT AND TEST BAR CLERK Appointment Department of Radiology, [facility], in [place], [place] [address] [place] [phone] Mónica Portillo APRN, Kassandra.N.P., M.S. [address] [place] [phone] 05/29/2023 1:00 PM WEIGHT AND TEST BAR CLERK Procedure visit Department of Urology in [place], [place] [address] [place] [phone] Mónica Portillo APRN, Kassandra.N.P., M.S. [address] [place] [phone] 05/29/2023 3:00 PM WEIGHT AND TEST BAR CLERK Education Division of Nephrology and Hypertension in [place], [place] [address] [place] [phone] Mónica Portillo APRN, C.N.P., M.S. [address] [place] [phone] Sandeep Galicia R.N. [address] [place] [phone] 05/29/2023 4:00 PM WEIGHT AND TEST BAR CLERK Comprehensive Visit Division of Nephrology and Hypertension in [place], [place] [address] [place] [phone] Sera Casiano M.D., Ph.D. [address] [place] [phone] 06/15/2023 2:00 PM WEIGHT AND TEST BAR CLERK Ancillary Procedure Department of Ophthalmology in [place], [place] [address] [place] [phone] Justin Bunch M.D. [address] [place] [phone] 06/15/2023 2:30 PM WEIGHT AND TEST BAR CLERK Ancillary Procedure Department of Ophthalmology in [address] [phone] Justin Bunch M.D. [address] [place] [phone] 06/15/2023 2:45 PM WEIGHT AND TEST BAR CLERK Office Visit Department of Ophthalmology in [address] [phone] Justin Bunch M.D. [address] [place] [phone] documented as of this encounter Visit Diagnoses Not on filedocumented in this encounter Additional Health Concerns Assessment Noted Time PHQ-9 Depression Total Score: 4 06/06/19 23 2:04 PM WEIGHT AND TEST BAR CLERK documented as of this encounter Care Teams Electric Tape Slitter Relationship Specialty Start Date End Date Clover Delaney M.D. [address] [place] [phone] PCP - General Internal Medicine 11/23/17 documented as of this encounter
--- OUTSIDE RECORDS SUMMARY | 2023-05-05 12:05 | XMS_ITS | Encounter Summary ---
Author Name Unknown Organization [facility] Address [address] [place] [address] Care Team Providers Care Front Desk Team Member Name Role Phone Clover Delaney M.D. Primary Care Provider [phone] Encounter Details Date Type Department Care Team (Latest Contact Info) Description 07/25/2022 9:58 AM CDT - 07/25/2022 11:59 PM CDT Hospital Encounter Department of Laboratory Medicine in [address] [place] [phone] Mónica Portillo, TRIXIE, C.N.P., M.S. [address] [place] [phone] Hypertension And Chronic Kidney Disease Stage 4 [...] How often do you attend chur or presybeterian services? 1 to 4 times per year 11/17/2021 Do you belong to any clubs o r organizations such as shinto groups, unions, fraternal or athletic groups, or [...] Answer Date Recorded PHQ-2 Score 0 06/06/2022 [facility] [place] [facility] Occupat ional [facility] - Occupational Stress [...] slept in a correction (including now)? No 11/17/2021 Depression Answer Date [...] Sex Assigned at Male 05/13/2021 10:11 AM ORIENTOR Gender Identity Male 11/02/2017 7:22 PM CDT [...] as needed. 0 [facility]ellaneous medical [facility] [place] Supp[place] See Instructions, CPAP machine, mask 1 ea x 4 refills, headgear 1 ea x 2 refills, tubing 1 ea x 4 refills, filters 2 ea per month, tub 1 ea x 2 refills, mask seal 1 ea x 2 refills DX G47.33, length of need 99, 1 each, 0 Refill(s) 0 10/20/2016 miscellaneous medical supply [facility] Head Gear for CPAP Machine See Instructions, fax to patient at [phone], 1 each 0 01/17/2014 MULTIVITAMIN ORAL Daily [...] (Latest Contact Info) Description 05/28/2023 10:00 AM ORIENTOR Appointment Department of Laboratory Medicine in [place], [place] [address] [place] [address] Mónica Portillo APRN, C.N.P., M.S. [address] [place] [phone] 05/28/2023 10:10 AM ORIENTOR Appointment Department of Laboratory Medicine in [place], [place] [address] [place] [address] Mónica Portillo APRN, C.N.P., M.S. [address] [place] [phone] 05/29/2023 8:00 AM ORIENTOR Office Visit Department of Community Internal Medicine in [place], [place] [address] [place] [address] Clover Delaney M.D. [address] [place] [phone] Discharge Disposition: Home or Self Care 05/29/2023 10:15 AM ORIENTOR Appointment Department of Radiology, [facility] in [place], [place] [address] [place] [phone] Mónica Portillo APRN, C.N.P., M.S. [address] [place] [phone] 05/29/2023 1:00 PM ORIENTOR Procedure visit Department of Urology in [place], [place] [address] [place] [phone] Mónica Portillo APRN, C.N.P., M.S. [address] [place] [phone] 05/29/2023 3:00 PM ORIENTOR Education Division of Nephrology and Hypertension in [place], [place] [address] [place] [phone] Mónica Portillo APRN, C.N.Allie., M.S. [address] [place] [phone] Sandeep Galicia R.N. [address] [place] [phone] 05/29/2023 4:00 PM ORIENTOR Comprehensive Visit Division of Nephrology and Hypertension in [place], [place] [address] [place] [phone] Sera Casiano M.D., Ph.D. [address] [place] [phone] 06/15/2023 2:00 PM ORIENTOR Ancillary Procedure Department of Ophthalmology in [place], [place] [address] [place] [phone] Justin Bunch M.D. [address] [place] [phone] 06/15/2023 2:30 PM ORIENTOR Ancillary Procedure Department of Ophthalmology in [place], [place] [address] [place] [phone] Justin Bunch M.D. [address] [place] [phone] 06/15/2023 2:45 PM ORIENTOR Office Visit Department of Ophthalmology in [place], [place] [address] [place] [address] Justin Bunch M.D. [address] [place] [phone] documented as of this encounter Procedures Procedure Name Priority Date/Time Associated Diagnosis Comments RENAL FUNCTION PANEL, S Routine 07/25/2022 10:10 AM CDT Hypertension And Chronic Kidney Disease Stage 4 (HCC) Anemia Of Chronic Renal Disease CYSTATIN C WITH EGFR Routine 07/25/2022 10:10 AM CDT Hypertension And Chronic Kidney Disease Stage 4 (HCC) Anemia Of Chronic Renal Disease IRON AND TOT IRON-BINDING CAPACITY, S/P Routine 07/25/2022 10:10 AM CDT Hypertension And Chronic Kidney Disease Stage 4 (HCC) Anemia Of Chronic Renal Disease CBC WITHOUT DIFFERENTIAL, B Routine 07/25/2022 10:10 AM CDT Hypertension And Chronic Kidney Disease Stage 4 (HCC) Anemia Of Chronic Renal Disease PARATHYROID HORMONE (PTH), S Routine 07/25/2022 10:10 AM CDT Hypertension And Chronic Kidney Disease Stage 4 (HCC) Anemia Of Chronic Renal Disease FERRITIN, S Routine 07/25/2022 10:10 AM CDT Hypertension And Chronic Kidney Disease Stage 4 (HCC) Anemia Of Chronic Renal Disease documented in this encounter Results * Iron and Total Iron-Binding Capacity (07/25/2022 10:10 AM CDT) Iron 62 50 - 150 mcg/dL 07/25/2022 8:09 PM CDT RDWG Total Iron Binding Capacity 260 250 - 400 mcg/dL 07/25/2022 8:09 PM CDT RDW[facility] Percent Saturation 24 14 - 50 % 07/25/2022 8:09 PM CDT RDW[facility] Blood (Blood, Venous) 07/25/2022 10:10 AM CDT 07/25/2022 7:32 PM CDT Mónica Portillo APRN, C.N.P., M.S. LAB BLOOD ADD-ON Performing Organization Address City/[facility] Co de Phone Number [facility] [address] [place] [address], [facility] [place] [address] * Ferritin (07/25/2022 10:10 AM CDT) Ferritin, S 231 31 - 409 mcg/L 07/25/2022 8:11 PM CDT RDW Comment: Biotin has been identified by the garment looper as a potential interfering substance. Higher concentrations of biotin may be found in multivitamins, hair/nail supplements, and workout supplements. If the result does not match clinical observations, repeat testing after patient refrains from the use of supplements for at least 12 hours. Blood (Blood, Venous) 07/25/2022 10:10 AM CDT 07/25/2022 7:32 PM CDT Mónica Portillo APRN, C.N.P., M.S. LAB BLOOD ADD-ON Performing Organization Address [facility] Co de Phone Number [facility] [place] [address], [facility] [place] [address] * (ABNORMAL) Cystatin C with Estimated GFR (07/25/2022 10:10 AM CDT) eGFR by Cystatin C 11(L) >60 mL/min/BSA 07/27/2022 11:25 AM CDT DTL Comment: Estimated GFR calculated using the CKD-EPI Cystatin C (2012) equation. ----ADDITIONAL INFORMATION---- Cystatin C-based eGFR may differ substantially from creatinine- based eGFR in patients with abnormal muscle mass or acutely changing renal function. ??Please interpret together with relevant clinical features. On 09/20/2020 the cystatin C assay method changed. Cystatin C eGFR results > 50 ml/min/1.73m2 are approximately 10% lower with the new assay. Cystatin C 4.27(H) 0.67 - 1.21 mg/L 07/27/2022 11:25 AM CDT DTL Blood (Blood, Venous) 07/25/2022 10:10 AM CDT 07/27/2022 11:10 AM CDT Mónica Portillo APRN, C.N.P., M.S. LAB BLOOD ADD-ON [facility] [address] [place] [address], [facility] [address] [place] [address] * (ABNORMAL) Parathyroid Hormone (PTH) (07/25/2022 10:10 AM CDT) Parathyroid Hormone (PTH), S 102(H) 15 - 65 pg/mL 07/25/2022 8:11 PM CDT RDWG Comment: Biotin has been identified by the garment looper as a potential interfering substance. Higher concentrations of biotin may be found in multivitamins, hair/nail supplements, and workout supplements. If the result does not match clinical observations, repeat testing after patient refrains from the use of supplements for at least 12 hours. Blood (Blood, Venous) 07/25/2022 10:10 AM CDT 07/25/2022 7:32 PM CDT Mónica Portillo APRN, C.N.P., M.S. LAB BLOOD ADD-ON [facility] [address] [place] [address], [place] RDWG [facility] in [place] [address] [place] [phone] * (ABNORMAL) Renal Function Panel (07/25/2022 10:10 AM CDT) Potassium, P 4.2 3.6 - 5.2 mmol/L 07/25/2022 12:24 PM CDT RDWG Sodium, P 141 135 - 145 mmol/L 07/25/2022 12:24 PM CDT RDWG Chloride, P 105 98 - 107 mmol/L 07/25/2022 12:24 PM CDT RDWG Bicarbonate, P 22 22 - 29 mmol/L 07/25/2022 12:24 PM CDT RDWG Anion Gap, P 14 7 - 15 07/25/2022 12:24 PM CDT RDWG BUN (Blood Urea Nitrogen), P 75(H) 8 - 24 mg/dL 07/25/2022 12:24 PM CDT RDWG Creatinine 3.44(H) 0.74 - 1.35 mg/dL 07/25/2022 12:24 PM CDT RDWG Estimated GFR (eGFR) 18(L) >=60 mL/min/BSA 07/25/2022 12:24 PM CDT RDWG Comment: Estimated GFR calculated using the 2020 CKD_EPI creatinine equation. Calcium, Total, P 9.0 8.8 - 10.2 mg/dL 07/25/2022 12:24 PM CDT RDWG Glucose, P 84 70 - 140 mg/dL 07/25/2022 12:24 PM CDT RDWG Albumin, P 4.0 3.5 - 5.0 g/dL 07/25/2022 12:24 PM CDT RDWG Phosphorus (Inorganic), P 5.7(H) 2.5 - 4.5 mg/dL 07/25/2022 12:24 PM CDT RDWG Blood (Blood, Venous) 07/25/2022 10:10 AM CDT 07/25/2022 11:54 AM CDT Mónica Portillo APRN C.N.P., M.S. LAB BLOOD ADD-ON [facility] [address] [place] [address], [facility] RDWG [facility] [place] [address] [place] [phone] * (ABNORMAL) CBC without Differential (07/25/2022 10:10 AM CDT) Hemoglobin 9.7(L) 13.2 - 16.6 g/dL 07/25/2022 12:06 PM CDT RDWG Hematocrit 31.3(L) 38.3 - 48.6 % 07/25/2022 12:06 PM CDT RDWG Erythrocytes 3.29(L) 4.35 - 5.65 x10(12)/L 07/25/2022 12:06 PM CDT RDWG MCV 95.1 78.2 - 97.9 fL 07/25/2022 12:06 PM CDT RDWG RBC Distrib Width 14.4 11.8 - 14.5 % 07/25/2022 12:06 PM CDT RDWG Platelet Count 225 135 - 317 x10(9)/L 07/25/2022 12:06 PM CDT RDWG Leukocytes 11.8(H) 3.4 - 9.6 x10(9)/L 07/25/2022 12:06 PM CDT RDWG Blood (Blood, Venous) 07/25/2022 10:10 AM CDT 07/25/2022 11:55 AM CDT Mónica Portillo APRN, C.N.P., M.S. LAB BLOOD ADD-ON [facility] [address] [address], [facility] RDWG [facility] [place] [address] [place] [phone] documented in this encounter Visit Diagnoses Diagnosis Hypertension And Chronic Kidney Disease Stage 4 (HCC) Anemia Of Chronic Renal Disease documented in this encounter Additional Health Concerns Assessment Noted Time PHQ-9 Depression Total Score: 4 06/06/19 23 2:04 PM ORIENTOR documented as of this encounter Care Teams Front Desk Team Member Relationship Specialty Start Date End Date Clover Delaney M.D. [facility] [address] [facility] [place] [phone] PCP - General Internal Medicine 11/23/17 documented as of this encounter
--- NOTE | 2023-05-05 12:26 | ED.GENADULT ---
HPI - General Adult General Date Seen: 05/05/23 Chief complaint: Lower Extremity Swelling Stated complaint: Short of breath following kidney stone Time Seen by Provider: 05/05/23 11:13 Source: patient Mode of arrival: ambulatory Limitations: no limitations History of Present Illness HPI narrative: Patient is a 77-year-old male who comes in for evaluation of a few different concerns. 1., yesterday he had flank pain which he says was severe and felt like prior kidney stones. He has a history of stage 4 kidney disease and worries about his kidneys quite a bit. The pain is resolved but he wanted to make sure he did not have stone there. He also feels that he is urinating less today than usual although he is still making urine. He has not had any blood in his urine or dysuria. Secondly, for the past couple of weeks he has had more shortness of breath than usual, feels okay when he is sitting still but with any exertion he starts to get short of breath. Has not had chest pain. Denies fevers or cough. Thirdly, he was started on amlodipine for high blood pressure recently and then developed significant swelling in both legs. He discussed this with his prescribing doctor who recommended having the dose but he instead decided to stop it completely. Continues to note some swelling in his legs, no erythema or pain. No history of prior DVT or PE. He cannot have IV contrast secondary to his kidney status. He denies a history of congestive heart failure, coronary artery disease, or liver disease. He does not smoke, quit 1980. Here today with his . Related Data Home Medications Medication Instructions Recorded Confirmed aspirin 81 mg tablet,delayed 81 mg PO QDAY 04/14/22 05/05/23 release blood sugar diagnostic (OneTouch #10 ea 04/14/22 03/28/23 Ultra Test strips) carvedilol 12.5 mg tablet 12.5 mg PO DAILY 04/14/22 05/05/23 cholecalciferol (vitamin D3) 50 50 mcg PO QDAY 04/14/22 05/05/23 mcg (2,000 unit) capsule insulin glargine 100 unit/mL (3 16 unit subcut QHS 04/14/22 05/05/23 mL) subcutaneous pen (Lantus Solostar U-100 Insulin) mecobalamin (vitamin B12) 1,000 1,000 mcg PO QDAY 04/14/22 05/05/23 mcg chewable tablet multivitamin 1 tab PO QAM 04/14/22 05/05/23 pen needle, diabetic 31 gauge x #50 ea 04/14/22 03/28/2304/30 (UltiCare Pen Needle) pen needle, diabetic 32 gauge x #50 ea 04/14/22 03/28/2332 (BD Ultra-Fine Josefina Pen Needle) prednisolone acetate 1 % eye 2 drp ophthalmic (eye) DAILY 04/14/22 05/05/23 drops,suspension prednisone 5 mg tablet 5 mg PO QDAY 04/14/22 05/05/23 torsemide 10 mg tablet 30 mg PO QDAY 04/14/22 05/05/23 vit C 250 mg-vit E 200 unit-zinc 1 tab PO DAILY 04/14/22 03/28/23 12.5 mg-copper 1 [id number] tablet (ICaps AREDS2 (copper citrate)) irbesartan 75 mg tablet (Avapro) 75 mg PO DAILY 09/10/22 05/05/23 doxazosin 2 mg tablet 2 mg PO QDAY 04/13/23 05/05/23 glipizide 10 mg tablet, extended 20 mg PO DAILY 04/13/23 05/05/23 release 24 hr sevelamer HCl 800 mg tablet 800 mg PO TID 04/13/23 05/05/23 sodium bicarbonate 650 mg tablet 650 mg PO BID 04/13/23 05/05/23 amlodipine 10 mg tablet 10 mg PO DAILY 05/05/23 05/05/23 Allergies Allergy/AdvReac Type Severity Reaction Status Date / Time epinephrine Allergy Intermediate Hypertensio Verified 05/05/23 10:51 n Penicillins Allergy Verified 05/05/23 10:51 Review of Systems Status of ROS: Reports: 10 or more systems reviewed and unremarkable except as noted in History and below [facility] Social History Smoking Status: Former smoker How often do you have a drink containing alcohol: monthly or less AUDIT-C Alcohol total score: 1 Non-prescribed substance use: denies use service: No Exam Narrative: Exam Narrative: Vital signs as noted above. In general, an alert, nontoxic male, breathing easily. Head: Normocephalic, atraumatic. Eyes: Pupils are equal reactive. Extraocular movements are full. Conjunctivae are normal. No scleral icterus. ENT: Mucous membranes are moist. Delete Neck: Supple without lymphadenopathy. Heart: Regular rate and rhythm. No murmur or rub. Lungs: Clear bilaterally. No increased work of breathing, crackles or wheezes. Abdomen: Obese, soft, nontender. Extremities: Some edema noted in bilateral lower extremities, no calf tenderness or erythema. Neurologic: Patient is alert and oriented to person and place. Speech is fluent. Face is symmetric. Moves all extremities equally. Affect: Normal. Skin: Warm and dry. Well perfused. Const: Vital Signs, click to edit/add: Vital Signs - 24 hr 05/05/23 10:55 05/05/23 11:00 05/05/23 11:30 Temperature 98.0 F Pulse Rate 57 L 57 L Pulse Rate [Pulse Oximeter] 59 L Respiratory Rate 16 16 16 Blood Pressure 191/78 H 161/70 H Blood Pressure [Ri ght Upper Arm] 179/68 H Pulse Oximetry 93 94 [facility] 05/05/23 11:52 05/05/23 12:00 05/05/23 12:03 Temperature Pulse Rate 60 58 L 58 L Pulse Rate [Pulse Oximeter] Respiratory Rate 16 Blood Pressure 155/71 H Blood Pressure [Ri ght Upper Arm] Pulse Oximetry 91 93 92 [facility] 05/[facility]/23 12:17 05/05/23 12:30 05/05/23 12:32 Temperature Pulse Rate 62 58 L 61 Pulse Rate [Pulse Oximeter] Respiratory Rate 16 Blood Pressure 159/84 H Blood Pressure [Ri ght Upper Arm] Pulse Oximetry 91 94 92 [facility] 05/05/23 12:33 05/05/23 12:45 05/05/23 13:00 Temperature Pulse Rate 58 L 63 66 Pulse Rate [Pulse Oximeter] Respiratory Rate Blood Pressure Blood Pressure [Ri ght Upper Arm] Pulse Oximetry 94 90 94 [facility] 05/05/23 13:03 05/05/23 13:04 05/05/23 13:30 Temperature Pulse Rate 57 L 58 L 56 L Pulse Rate [Pulse Oximeter] Respiratory Rate 16 Blood Pressure 155/64 H Blood Pressure [Ri ght Upper Arm] Pulse Oximetry 93 92 93 [facility] 05/05/23 13:32 05/05/23 13:33 05/05/23 13:55 Temperature Pulse Rate 60 54 L 59 L Pulse Rate [Pulse Oximeter] Respiratory Rate 16 Blood Pressure 152/72 H Blood Pressure [Ri ght Upper Arm] Pulse Oximetry 93 94 93 Oxygen Delivery Me thod 05/05/23 14:00 05/05/23 14:03 05/05/23 14:15 Temperature Pulse Rate 60 58 L 54 L Pulse Rate [Pulse Oximeter] Respiratory Rate 16 Blood Pressure 153/61 H Blood Pressure [Ri ght Upper Arm] Pulse Oximetry 94 94 93 Oxygen Delivery Me thod 05/05/23 14:30 05/05/23 14:32 Temperature Pulse Rate 57 L 59 L Pulse Rate [Pulse Oximeter] Respiratory Rate 16 Blood Pressure 162/65 H Blood Pressure [Ri ght Upper Arm] Pulse Oximetry 94 93 Oxygen Delivery Me thod Documenting provider has reviewed patient's vital signs: yes Course Course ED Course: Patient presents with a few different concerns, left flank pain which has resolved, history of kidney stones, stable dyspnea on exertion over the past couple of weeks, and leg swelling which started after starting amiodarone. Am going to get a D-dimer, if this is elevated I would do Dopplers of the legs, but if normal I suspect that amiodarone is the culprit in terms of his lower extremity edema. Will get a chest x-ray and BNP to evaluate for possible congestive heart failure today. Labs to evaluate for kidney function, CT of the abdomen without contrast to evaluate for possible kidney stone or other renal pathology. EKG by my review showed a sinus rhythm, ventricular rate of 61, is first-degree AV block with a ND of 296. No concerning ST segment changes or T-wave abnormalities. Point of care troponin is 0.01. Chest x-ray by my review did not show evidence of infiltrate, effusion, or pulmonary edema. Radiology read this as unremarkable. Labs are notable for a white blood cell count of 12.7, hemoglobin of 8.9 which patient says is in his normal range of 8-10. His D-dimer was elevated at 1.28, I did Dopplers of bilateral lower extremities which were negative for clot. He was ambulatory around the emergency department without significant hypoxia, O2 sats were 91-94% when ambulatory. My suspicion for pulmonary embolism is low in the absence of tachycardia, tachypnea, chest pain and with persistent symptoms for 2 weeks. Atypical angina cannot be entirely ruled out. I have discussed all this with the patient and his . His creatinine today is 4.9, BUN of 83. Electrolytes are normal. His BNP is 3300, again I do not see evidence of fluid affecting his lungs, but I would say overall he appears to be fluid overloaded. TSH is normal. COVID, influenza and RSV are negative. CT scan by my review did not show a kidney stone stone or ureteral stone, hydronephrosis, did see some fat stranding around the left kidney. Final radiology read is as follows: FINDINGS: LOWER CHEST: The heart is normal in size. No pericardial effusion. Coronary artery calcifications. Similar-appearing right basilar atelectasis/scarring with right lower thoracic pleural calcifications and thickening ABDOMEN/PELVIS: Stable low-density 1.2 centimeter lesion at the superior right hepatic lobe, likely benign cyst/hemangioma. The spleen is unremarkable. Pancreatic atrophy. No focal pancreatic lesions or ductal dilatation. The adrenal glands are unremarkable. No renal calculi. No hydroureteronephrosis. There is a dense exophytic cystic-like lesion at the upper pole of the left kidney, incompletely evaluated on this examination but favored to represent a hemorrhagic cyst. Low-density exophytic cystic lesion in the interpolar region of the right kidney measuring approximately 2.8 centimeters on this exam, likely representing a simple cyst, unchanged. There is some perinephric stranding of the left kidney. The bladder is unremarkable in appearance. The seminal vesicles, and prostate are unremarkable in appearance. No evidence of bowel obstruction. The appendix is normal in appearance. Sigmoid diverticulosis with some questionable faint pericolonic inflammatory changes. No free fluid or free air. No pathologically enlarged lymph nodes throughout the abdomen or pelvis. No abdominal aortic aneurysm. SOFT TISSUE/MUSCULOSKELETAL: Fat containing left inguinal hernia. No acute fracture or malalignment. 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 IMPRESSION: 1. No obstructing stones. No hydroureteronephrosis. 2. Minimal left perinephric stranding, a nonspecific finding. 3. Sigmoid diverticulosis with questionable faint pericolonic inflammatory changes, equivocal for mild acute sigmoid diverticulosis. 4. Hyperdense exophytic cystic lesion at the upper pole of the left kidney, favored to represent a hemorrhagic cyst, incompletely characterized on this exam. Recommend nonemergent, outpatient CT or MRI with a renal protocol for further assessment. I spoke with Dr. Ordaz, who was on-call for Nephrology at [place] where the patient is followed. I reviewed all of these findings with her. Overall she felt the best course of action would be to have him increase his torsemide to 60 mg every morning. She notes that he is probably progressing closer toward needing dialysis. He was not able to urinate while here, we did a bladder scan which showed just a small amount, 30 mL of urine in the bladder. He notes he has not had very much to drink today. Will give some IV Lasix here. He has an appointment on May 29 with Nephrology, they will check in with him over the next week or so. She recommended if he is not losing weight on the higher dose of torsemide that he call the clinic. Return any time for acute worsening. Note patient was finally able to void after Lasix, UA dip has returned negative side from protein, cell counts are pending, will discharge patient in anticipation of these being normal. Vital Signs Vital signs: Initial Vital Signs Temperature 98.0 F 05/05/23 10:55 Temperature Source Temporal Artery Scan 05/05/23 10:55 Pulse Rate 59 L 05/05/23 10:55 Pulse Rhythm Regular 05/05/23 10:55 Pulse Strength 3+ Normal 05/05/23 10:55 Respiratory Rate 16 05/05/23 10:55 Blood Pressure 179/68 H 05/05/23 10:55 Blood Pressure Mean 105 05/05/23 10:55 Blood Pressure Position Sitting 05/05/23 10:55 Pulse Oximetry 93 05/05/23 10:55 Oxygen Delivery Method Room Air 05/05/23 10:55 Vital Signs Temperature 98.0 F 05/05/23 10:55 Pulse Rate 59 L 05/05/23 10:55 Respiratory Rate 16 05/05/23 10:55 Blood Pressure 179/68 H 05/05/23 10:55 Pulse Oximetry 93 05/05/23 10:55 Oxygen Delivery Method Room Air 05/05/23 10:55 Temperature 98.0 F 05/05/23 10:55 Pulse Rate 59 L 05/05/23 14:32 Respiratory Rate 16 05/05/23 14:32 Blood Pressure 162/65 H 05/05/23 14:32 Pulse Oximetry 93 05/05/23 14:32 Oxygen Delivery Method Room Air 05/05/23 10:55 Medications Administered Medications: Discontinued Medications Generic Name Dose Route Start Last Admin Trade Name Iza PRN Reason Stop Dose Admin Furosemide 40 mg 05/05/23 14:55 05/05/23 15:00 Furosemide 10 Mg/Ml Inj IVP 05/05/23 14:56 40 mg ONCE ONE Administration Medical Decision Making Lab Data Labs: Lab Results 05/05/23 05/05/23 05/05/23 Range/Units 11:23 11:30 15:30 WBC 12.68 H (4.50-11.00) K/uL RBC 2.92 L (4.30-5.90) m/uL Hgb 8.9 L (13.5-17.5) gm/dL Hct 27.9 L (37.0-53.0) % MCV 96 (80-100) fL MCH 31 (26-34) pg MCHC 32 (32-36) gm/dL RDW Coeff of Rita 14.1 (11.5-15.5) % Plt Count 157 (140-440) K/uL Neut % (Auto) 87.3 H (42.0-72.0) % Lymph % (Auto) 3.5 L (20-44) % Rice % (Auto) 7.6 (0.0-11.0) % Eos % (Auto) 1.0 (0.0-7.0) % Baso % (Auto) 0.2 (0.0-3.0) % Neut # (Auto) 11.10 H (1.7-7.0) K/uL Lymph # (Auto) 0.40 L (0.90-2.90) K/uL Rice # (Auto) 1.00 H (0.00-0.90) K/UL Eos # (Auto) 0.10 (0.00-0.50) K/uL Baso # (Auto) 0.00 (0.00-0.30) K/uL Abs Immat Gran (auto) 0.10 (0.00-0.30) K/uL Imm/Tot Granulo (auto) 0.4 % D-Dimer Quant (PE/DVT) 1.28 H (0.00-0.50) ug/ml Sodium 136 (135-149) mmol/L Potassium 4.9 (3.6-5.1) mmol/L Chloride 103 (96-114) mmol/L Carbon Dioxide 21 (20-32) mmol/L Anion Gap 12 (7-15) mEq/L BUN 83 H (7-30) mg/dL Creatinine 4.9 H (0.5-1.5) mg/dL Estimated Creat Clear 13.04 Estimated GFR 12 ml/min Glucose 66 (60-115) mg/dL Calcium 8.4 (8.4-10.6) mg/dL C-Reactive Protein 5.7 H (0.5-1.0) mg/dL NT-Pro-B Natriuret Pep 3330 pg/mL TSH 2.680 (0.270-4.200) uIU/mL Urine Color Yellow (Yellow) Urine Appearance Clear (Clear) Urine pH 5.5 (5.0-8.5) Ur Specific [place] 1.020 (1.000-1.030) Urine Protein 3+ A (Negative) Urine Glucose (UA) Negative (Negative) Urine Ketones Negative (Negative) Urine Blood 1+ A (Negative) Urine Nitrite Negative (Negative) Urine Bilirubin Negative (Negative) Urine Urobilinogen 0.2 (0.2-1.0) Ur Leukocyte Esterase Negative (Negative) SARS-CoV-2 (PCR) (Negative) Influenza Type A (PCR) (Negative) Influenza Type B (PCR) (Negative) RSV (PCR) (Negative) POC Troponin I 0.01 (0.01-0.04) ng/ml 05/05/23 Range/Units Unknown WBC (4.50-11.00) K/uL RBC (4.30-5.90) m/uL Hgb (13.5-17.5) gm/dL Hct (37.0-53.0) % MCV (80-100) fL MCH (26-34) pg MCHC (32-36) gm/dL RDW Coeff of Rita (11.5-15.5) % Plt Count (140-440) K/uL Neut % (Auto) (42.0-72.0) % Lymph % (Auto) (20-44) % Rice % (Auto) (0.0-11.0) % Eos % (Auto) (0.0-7.0) % Baso % (Auto) (0.0-3.0) % Neut # (Auto) (1.7-7.0) K/uL Lymph # (Auto) (0.90-2.90) K/uL Rice # (Auto) (0.00-0.90) K/UL Eos # (Auto) (0.00-0.50) K/uL Baso # (Auto) (0.00-0.30) K/uL Abs Immat Gran (auto) (0.00-0.30) K/uL Imm/Tot Granulo (auto) % D-Dimer Quant (PE/DVT) (0.00-0.50) ug/ml Sodium (135-149) mmol/L Potassium (3.6-5.1) mmol/L Chloride (96-114) mmol/L Carbon Dioxide (20-32) mmol/L Anion Gap (7-15) mEq/L BUN (7-30) mg/dL Creatinine (0.5-1.5) mg/dL Estimated Creat Clear Estimated GFR ml/min Glucose (60-115) mg/dL Calcium (8.4-10.6) mg/dL C-Reactive Protein (0.5-1.0) mg/dL NT-Pro-B Natriuret Pep pg/mL TSH (0.270-4.200) uIU/mL Urine Color (Yellow) Urine Appearance (Clear) Urine pH (5.0-8.5) Ur Specific [place] (1.000-1.030) Urine Protein (Negative) Urine Glucose (UA) (Negative) Urine Ketones (Negative) Urine Blood (Negative) Urine Nitrite (Negative) Urine Bilirubin (Negative) Urine Urobilinogen (0.2-1.0) Ur Leukocyte Esterase (Negative) SARS-CoV-2 (PCR) Negative SARS-CoV-2 (Negative) Influenza Type A (PCR) Negative PCR FLU A (Negative) Influenza Type B (PCR) Negative PCR FLU B (Negative) RSV (PCR) Negative PCR RSV (Negative) POC Troponin I (0.01-0.04) ng/ml Discharge Plan Discharge Clinical Impression: Renal failure, chronic Patient Disposition: Home, Self-Care Condition: Stable Instructions: Chronic Kidney Disease (ED) Additional Instructions: I spoke with 1 of the doctors on-call for the renal department at [place]. Her recommendation is that for both fluid overload and blood pressure we have you increase your torsemide dosing to 60 mg instead of 30 mg. You can take that all at once in the morning. She will let your nurse practitioner and Dr. Armenta know of today's events, and they will check in with you in the next week or so . If you are not losing weight over the next few days despite the higher dose of torsemide, please call the nephrology clinic at [place]. Follow-up as planned with Dr. Armenta. Your x-ray and ultrasound of your legs are both unremarkable. Return at any time for acute worsening. Prescriptions: No Action (DME) pen needle, diabetic [BD Ultra-Fine Josefina Pen Needle] 32 gauge x / needle See Rx Instructions .ROUTE .MEDSUPPLY Qty: 50 Patient Comments: USE TO INJECT ONCE DAILY Rx Instructions: As directed torsemide 10 mg tablet 30 mg PO QDAY Patient Comments: TAKE ONE TABLET BY MOUTH ONE TIME DAILY prednisolone acetate 1 % drops,suspension 2 drp ophthalmic (eye) DAILY Patient Comments: Follow prednisolone taper in left eye per Dr. Paez's handout insulin glargine [Lantus Solostar U-100 Insulin] 100 unit/mL (3 mL) insulin pen 16 unit subcut QHS prednisone 5 mg tablet 5 mg PO QDAY Patient Comments: TAKE ONE TABLET BY MOUTH ONE TIME DAILY carvedilol 12.5 mg tablet 12.5 mg PO DAILY Patient Comments: TAKE ONE TABLET BY MOUTH TWICE A DAY WITH MEALS (DME) OneTouch Ultra Test Strip See Rx Instructions .ROUTE .MEDSUPPLY Qty: 10 Patient Comments: Use to test once daily. Rx Instructions: As directed (DME) pen needle, diabetic [UltiCare Pen Needle] 31 gauge x 1/4 needle See Rx Instructions .ROUTE .MEDSUPPLY Qty: 50 Rx Instructions: As directed aspirin 81 mg tablet,delayed release (DR/EC) 81 mg PO QDAY cholecalciferol (vitamin D3) 50 mcg (2,000 unit) capsule 50 mcg PO QDAY mecobalamin (vitamin B12) 1,000 mcg tablet,chewable 1,000 mcg PO QDAY multivitamin Tablet 1 tab PO QAM ICaps AREDS2 (copper citrate) 250 mg-200 unit -12.5 mg-1 mg tablet 1 tab PO DAILY glipizide 10 mg tablet extended release 24hr 20 mg PO DAILY Patient Comments: TAKE ONE TABLET BY MOUTH ONE TIME DAILY doxazosin 2 mg tablet 2 mg PO QDAY sodium bicarbonate 650 mg tablet 650 mg PO BID sevelamer HCl 800 mg tablet 800 mg PO TID Rx Instructions: must administer with a meal/food irbesartan [Avapro] 75 mg tablet 75 mg PO DAILY amlodipine 10 mg tablet 10 mg PO DAILY Hold Instructions: Doctor's Order Follow Up/Referrals: Clover Boothe MD [Primary Care Provider] - Stand Alone Forms: [employer] Info Instructions
[2023-05-05 12:27] LABS: Chloride* 103 mmol/L (96-114); Potassium* 4.9 mmol/L (3.6-5.1); Sodium* 136 mmol/L (135-149)
[2023-05-05 12:30] LABS: Creatinine* 4.9 mg/dL (0.5-1.5); Est. Creatinine Clearance* 13.04; Estimated Glomerular Filt Rate 12 ml/min
[2023-05-05 12:31] LABS: Anion Gap 12 mEq/L (7-15); Blood Urea Nitrogen* 83 mg/dL (7-30); Calcium* 8.4 mg/dL (8.4-10.6); Carbon Dioxide* 21 mmol/L (20-32); Glucose* 66 mg/dL (60-115)
[2023-05-05 12:33] LABS: Slide Review Reflex No
[2023-05-05 12:34] LABS: C Reactive Protein* 5.7 mg/dL (0.5-1.0)
[2023-05-05 12:36] LABS: D Dimer Quantitative* 1.28 ug/ml (0.00-0.50)
[2023-05-05 12:39] LABS: PCR FLU A Negative PCR FLU A (Negative); PCR FLU B Negative PCR FLU B (Negative); PCR RSV Negative PCR RSV (Negative); SARS PCR* Negative SARS-CoV-2 (Negative)
[2023-05-05 12:49] LABS: NT Pro B Type NatriureticPept* 3330 pg/mL
--- NOTE | 2023-05-05 13:16 | CRLHL7_ITS ---
For Patients: As a result of the Century Cures Act, medical imaging exams and procedure reports are released immediately into your electronic medical record. You may view this report before your referring provider. If you have questions, please contact your health care provider. INDICATION: Bilateral leg swelling. TECHNIQUE: Ultrasound venous duplex bilateral lower extremity. Compression venous exam was performed using coyle-scale, color Doppler, and spectral Doppler analysis. COMPARISON: None. FINDINGS: Limitations: Slightly suboptimal examination secondary to body habitus and diffuse lower extremity swelling/edema. Deep veins: Sonographic imaging demonstrates the right and left common femoral, deep femoral, superficial femoral, popliteal, posterior tibial veins to be compressible. There is normal color Doppler blood flow within the right and left common femoral, femoral and popliteal arteries. Superficial veins: Greater saphenous vein is fully compressible. No popliteal cyst. IMPRESSION: No deep venous thrombosis identified within either lower extremity. Dictated by Bladimir Tucker MD @ 05/05/2023 2:51:46 PM (Electronically Signed)
--- NOTE | 2023-05-05 13:54 | PC.NURSE ---
Patient ambulated around unit. Maintained oxygen saturation of 91%-94%. Attempted to void and unable to at this time. MD notified.
--- NOTE | 2023-05-05 14:51 | ED.NURSE ---
Patient unable to void. bladder scanned fo 36cc. notified.
[2023-05-05] MEDS: FUROSEMIDE 10 MG/ML inj 40 MG IVP (15:00)
--- NOTE | 2023-05-05 15:32 | PC.NURSE ---
Pt able to void small amount of urine, sample sent to lab.
[2023-05-05 15:40] LABS: Appearance Urine Clear (Clear); Bilirubin Urine Negative (Negative); Blood Urine 1+ (Negative); Color Urine Yellow (Yellow); Glucose Urine Negative (Negative); Ketones Urine Negative (Negative); Leukocyte Esterase Urine Negative (Negative); Nitrite Urine Negative (Negative); Protein Urine 3+ (Negative); Urobilinogen Urine 0.2 (0.2-1.0); pH Urine 5.5 (5.0-8.5)
[2023-05-05 15:59] LABS: Amorphous Sediment Urine Few; RBC Urine 0-2 (0-2); Squamous Epithelial Cell Urine Few (None-Few); WBC Urine 0-2 (0-5)
[2023-05-05 16:00] LABS: Coarse Granular Casts Urine Few
== END 2023-05-05 16:38 | disposition home or self-care (01) ==
PROVIDERS: Emergency Provider Emergency Medicine; PCP Pediatrics
DX: N19 Unspecified kidney failure (principal); R06.02 Shortness of breath; R60.0 Localized edema
CPT/HCPCS: 36415; 51798; 71046; 74176; 80048; 81001; 83880; 84443; 84484; 85025; 85379; 86140; 87631; 93005; 93970; 96374; 99284; 99285; J1940

== ENCOUNTER 2023-05-06 12:44 | Outpatient (CLI) | payer MEDICARE, SELFPAY ==
--- OUTSIDE RECORDS SUMMARY | 2023-05-11 02:08 | XMS_ITS | Referral Summary ---
Author Name Unknown Organization [facility] Address [address] [place] [address] Care Team Providers Care Gear Coding Machine Operator Name Role Phone Clover Delaney M.D. Primary Care Provider [phone] Source Comments Patient records contain information from all sites at [facility]. For routine questions regarding patient records, call [phone] during business hours, M-F 8:00 AM - 5:00 PM Central Time. Record requests for emergency care only can be directed to [phone] at any time.[facility] Encounters Date Type Department Care Team Description 05/05/2023 Intake [facility] 05/05/2023 Refill Department of Community Internal Medicine in [address] [place] [address] Clover Delaney M.D. Med Refill 04/21/2023 12:33 PM TEST TECHNICIAN - 04/21/2023 11:59 PM TEST TECHNICIAN Hospital Encounter Department of Laboratory Medicine in [address] [phone] Clover Delaney M.D. 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 04/15/2023 Orders Only Division of Nephrology and Hypertension in [place], [place] [address] [place] [phone] Yris Hughes L.Boni.S.Bernabe., M.S.W. Chronic Kidney Disease Stage 5 Glomerular Filtration Rate Less Than 15 (HCC) (Primary Dx) 04/13/2023 Orders Only Department of Community Internal Medicine in [place] [address] [place] [address] Clover Delaney M.D. 04/07/2023 1:50 PM TEST TECHNICIAN Ancillary Procedure Department of Gastroenterology 04/07/2023 1:01 PM TEST TECHNICIAN - 04/07/2023 11:59 PM TEST TECHNICIAN Hospital Encounter Division of Gastroenterology in [place], [place] [address] [place] [phone] Clover Delaney M.D. Cancer Colon Transverse Personal History Discharge Disposition: Home or Self Care 04/07/2023 9:15 AM TEST TECHNICIAN Telemedicine Division of Nephrology and Hypertension in [place], [place] [address] [place] [phone] Mónica Portillo APRN, C.N.P., M.S. Hypertension And Chronic Kidney Disease Stage 5 (HCC) (Primary Dx); Proteinuria; 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; Acute Metabolic Acidosis; Hyperphosphatemia; Hypocalcemia 04/06/2023 10:30 AM TEST TECHNICIAN Diagnostic Department of Family Medicine, [facility], in [place], [place] [address] [place] [address] Mónica Portillo APRN, C.N.P., M.S. Hypertension And Chronic Kidney Disease Stage 5 (HCC) Discharge Disposition: Home or Self Care 04/01/2023 Orders Only Division of Nephrology and Hypertension, [facility], in [place], [place] [address] [place] [phone] Frances Farah R.N. Chronic Kidney Disease (CKD), Stage 3b Glomerular Filtration Rate (GFR) 30 To 44 (HCC) (Primary Dx); Chronic Kidney Disease Stage 4 Glomerular Filtration Rate 15-29 (HCC) 03/30/2023 Clinical Communication Department of [facility] Internal Medicine in [address] [place] [address] Clover Delaney M.D. Follow-up Orders (Patient returning call to [place] to jaquan Wang? I do not see any message./ ) 03/30/2023 Orders Only Division of Nephrology and Hypertension in [place], [place] [address] [place] [address] Mónica Portillo APRN, C.N.P., M.S. Hypertension And Chronic Kidney Disease Stage 5 (HCC) (Primary Dx) 03/30/2023 Orders Only Division of Nephrology and Hypertension in [place], [place] [address] [place] [address] Mónica Portillo APRN, C.N.P., M.S. 03/30/2023 2:00 PM TEST TECHNICIAN Infusion Department of Infusion Therapy in [address] [address] Mónica Portillo APRN, C.N.P., M.S. Anemia Of Chronic Renal Disease (Primary Dx) 03/30/2023 12:14 PM TEST TECHNICIAN - 03/30/2023 11:59 PM TEST TECHNICIAN Hospital Encounter Department of Laboratory Medicine in [address] [address] Mónica Portillo APRN, C.N.P., M.S. Hypertension And Chronic Kidney Disease Stage 5 (HCC); Anemia Of Chronic Renal Disease Discharge Disposition: Home or Self Care 03/30/2023 12:13 PM TEST TECHNICIAN Hospital Encounter Department of Laboratory Medicine in [address] [address] Mónica Portillo APRN, C.N.P., M.S. Hypertension And Chronic Kidney Disease Stage 5 (HCC); Anemia Of Chronic Renal Disease Discharge Disposition: Home or Self Care 03/30/2023 1:00 PM TEST TECHNICIAN Nurse Only Department of Family Medicine, [facility], in [address] [address] Mónica Portillo APRN, C.N.P., M.S. Basilia Santiago L.Allie.Cally. Blood Pressure Check Discharge Disposition: Home or Self Care 03/27/2023 Nurse Triage Department of [facility] Internal Medicine in [place] [address] [place] [address] Tahira Melton R.N. Earache 03/11/2023 Refill Division of Nephrology and Hypertension in [place], [place] [address] [place] [address] Mónica Portillo APRN, C.N.P., M.S. Med Refill 03/11/2023 Refill Department of [facility] Internal Medicine in [place] [address] [place] [address] Clover Delaney M.D. Med Refill 03/09/2023 Clinical Communication Department of [facility] Internal Medicine in [place] [address] [place] [address] Clover Delaney M.D. 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 03/02/2023 Clinical Communication Department of Infusion Therapy in [address] [phone] Elaina Rueda, RJosé LuisN. Med Question (Fereme) 03/02/2023 1:30 PM TEST TECHNICIAN Infusion Department of Infusion Therapy in [address] [phone] Mónica Portillo APRN, C.N.P., M.S. Anemia Of Chronic Renal Disease (Primary Dx) 03/02/2023 12:36 PM TEST TECHNICIAN - 03/02/2023 11:59 PM TEST TECHNICIAN Hospital Encounter Department of Laboratory Medicine in [address] [phone] Mónica Portillo APRN, C.N.P., M.S. Anemia Of Chronic Renal Disease Discharge Disposition: Home or Self Care 03/02/2023 8:30 AM TEST TECHNICIAN Telemedicine Division of Nephrology and Hypertension in [place], [place] [address] [place] [address] Mónica Portillo APRN, C.N.P., M.S. Hypertension And Chronic Kidney Disease Stage 5 (HCC) (Primary Dx); Anemia Of Chronic Renal Disease 02/26/2023 8:59 AM CDT - 02/26/2023 11:59 PM CDT Hospital Encounter Department of Laboratory Medicine in [address] [place] [address] Mónica Portillo APRN, C.N.Allie., M.S. 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); Proteinuria Discharge Disposition: Home or Self Care from Last 3 Months Allergies Active Allergy Reactions Criticality Noted Date Comments Epinephrine Palpitations High 11/11/2012 Tachycardia Penicillins Itching,Rash Medium 11/11/2012 Medications Medication Sig Dispensed Refills Start Date End Date Status miscellaneous medical supply [facility] CPAP Supplies See Instructions, CPAP machine, mask 1 ea x 4 refills, headgear 1 ea x 2 refills, tubing 1 ea x 4 refills, filters 2 ea per month, tub 1 ea x 2 refills, mask seal 1 ea x 2 refills DX G47.33, length of need 99, 1 each, 0 Refill(s) 0 10/20/2016 Active miscellaneous medical supply [facility] Head Gear for CPAP Machine See Instructions, fax to patient at [phone], 1 each 0 01/17/2014 Active MULTIVITAMIN ORAL Daily Multiple Vitamins See Instructions, Take 1 tablet by mouth daily. 0 07/23/2013 Active ONETOUCH DELICA LANCETS 33 gauge [facility] 3 08/02/2018 Active loperamide (IMODIUM A-D) 2 mg tablet Take 2 mg by mouth as needed. 0 Active aspirin 81 mg chewable tablet Chew 1 tablet (81 mg total) daily. 90 tablet 3 01/06/2020 Active cyanocobalamin (VITAMIN B12) 1,000 mcg tablet Take 1,000 mcg by mouth daily. 0 Active DME CPAPIndications:Ob structive Sleep Apnea Adult DME Order 1 each 0 08/27/2021 Active OneTouch Ultra Test stripsIndications: Diabetes Mellitus Type 2 (HCC) Use to test once daily 100 strip 3 12/31/2021 Active UltiCare Pen Needle 31 gauge x 1/4 needleIndications: Diabetes Mellitus Type 2 With Diabetic Neuropathy Hyperglycemic (HCC) Use to inject insulin daily 100 each 3 03/31/2022 Active cholecalciferol (VITAMIN D3) 50 mcg (2,000 Unit) tablet Take 50 mcg by mouth daily. 0 Active multivitamin-eye (PRESERVISION LUTEIN) 226 mg-90 mg-5 mg-0.8 mg capsule Take 2 capsules by mouth daily. 0 Active iron,carbonyl-shannan min C (VITRON-C) 65 mg iron- [address] tablet Take 65 mg of iron by mouth daily. Do not crush or chew. 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 1 each 1 06/09/2022 Active flash glucose scanning reader (FREESTYLE BRIONNA) miscIndications:Di abetes Mellitus Type 2 With Proliferative Diabetic Retinopathy [...] glipiZIDE (GLUCOTROL XL) 10 mg 24 hr tabletIndications: Diabetes Mellitus Type 2 Hyperglycemia (HCC) Take 2 [...] daily. 5 mL 0 02/05/2023 Active polyethylene glycol-electrolyte s (GoLYTELY) 236-22.74-6.74 -5.86 gram solutionIndication s:Cancer Colon Transverse Personal History Drink 1st portion of prep at 6 PM the evening before. 2nd portion must be started 3 hours before and finished 2 hours prior to report time 4000 mL 0 03/09/2023 Active insulin glargine (Lantus Solostar U-100 Insulin) 100 unit/mL (3 mL) injectionIndicatio ns:Diabetes Mellitus Type 2 Hyperglycemia (HCC) Inject 16 [...] meals. 270 tablet 3 04/07/2023 4 Active BD Ultra-Fine Josefina Pen Needle 32 gauge x 32 needle USE TO INJECT ONCE DAILY 100 each 3 05/08/2023 Active pen needle, diabetic (UltiCare Pen Needle) 32 gauge x 1/4 needle 1 Injection daily. 100 each 3 04/07/2022 4 Discontinued Hospital, Clinic, or Other Facility Administered Medication [...] Overview: Added automatically from request for surgery [id number] Cancer Colon Transverse Personal History 020 Overview: 03/2018 No evidence of metastatic disease, stable colon, diverticulosis on CT 04/09/2020 ([facility], [facility]) Repeat colonoscopy fall [address] Sewell (oncology, [place]), follow up Dr. Sewell 6-12 months with [...] of 03/2020 and determined to be benign ([facility]). Leukocytosis 01/22/2018 Malignant [...] Overview: Added automatically from request for surgery [id number] Hematochezia 11/09/2017 07/01/2018 Overview: Added automatically from request for surgery [id number] Diarrhea 11/09/2017 09/28/2018 Overview: S/P recurrent c diff. Tolerates 1500mg metformin per day. Cancer Colon Family History 01/19/2015 01/06/2020 Immunizations Name Administration Dates Next Due DTaP (Infanrix, [employer]) 05/08/2008 HepA Adult 11/22/1999,05/17/1999 HepB, Unspecified 09/05/2022(Deferred: Other) Influenza (IM) Preservative Free 01/25/2009,1104/2007 Influenza Split 01/25/2009, 8,02/15/1997,1995 Influenza high dose [...] How often do you attend chur or tenriism services? Never 07/28/2022 Do you belong to any clubs o r organizations such as christianity groups, unions, fraternal or athletic groups, or [...] to sleep or slept in a senior care (including now)? No 07/28/2022 Depression Answer Date [...] Sex Assigned at Male 05/13/2021 10:11 AM TEST TECHNICIAN Gender Identity Male 11/02/2017 7:22 PM CDT Sexual Orientation Straight 11/02/2017 7: 22 PM CDT Last Filed Vital Signs Vital Sign Reading Time Taken Comments Blood Pressure 174/83 04/07/2023 2:34 PM TEST TECHNICIAN Pulse 56 04/07/2023 2:34 PM TEST TECHNICIAN Temperature 36.7 ??C (98.1 ??F) 04/07/2023 2 :34 PM TEST TECHNICIAN Respiratory Rate 17 04/07/2023 2:34 PM TEST TECHNICIAN Oxygen Saturation 96% 04/07/2023 2:3 4 PM TEST TECHNICIAN Inhaled Oxygen Concentration - - Weight 152 kg (335 lb) 03/02/2023 8:22 AM TEST TECHNICIAN patient reported Height 177.8 cm (5' 10) 04/07/2023 1:1 9 PM TEST TECHNICIAN Body Mass Index 48.5 03/31/2022 2:55 PM TEST TECHNICIAN Plan of Treatment Upcoming Encounters Date Type Department Care Team (Latest Contact Info) Description 05/28/2023 10:00 AM TEST TECHNICIAN Appointment Department of Laboratory Medicine in [place] [address] [place] [place] [address] Mónica Portillo APRN, C.N.P., M.S. [address] [place] [phone] 05/28/2023 10:10 AM TEST TECHNICIAN Appointment Department of Laboratory Medicine in [place], [place] [address] [place] [place] [address] Mónica Portillo APRN, C.N.P., M.S. [address] [place] [phone] 05/29/2023 8:00 AM TEST TECHNICIAN Office Visit Department of Community Internal Medicine in [place], [place] [address] [address] Clover Delaney M.D. [address] [place] [phone] Discharge Disposition: Home or Self Care 05/29/2023 10:15 AM TEST TECHNICIAN Appointment Department of Radiology, [facility], in [place], [place] [address] [place] [phone] Mónica Portillo APRN, C.N.P., M.S. [address] [place] [phone] 05/29/2023 1:00 PM TEST TECHNICIAN Procedure visit Department of Urology in [place], [place] [address] [place] [phone] Mónica Portillo APRN, C.N.P., M.S. [address] [place] [phone] 05/29/2023 3:00 PM TEST TECHNICIAN Education Division of Nephrology and Hypertension in [place], [place] [address] [place] [phone] Mónica Portillo APRN, C.N.P., M.S. [address] [place] [phone] Sandeep Galicia R.N. [address] [place] [phone] 05/29/2023 4:00 PM TEST TECHNICIAN Comprehensive Visit Division of Nephrology and Hypertension in [address] [phone] Sera Casiano M.D., Ph.D. [address] [place] [phone] 06/15/2023 2:00 PM TEST TECHNICIAN Ancillary Procedure Department of Ophthalmology in [place], [place] [address] [place] [address] Justin Bunch M.D. [address] [place] [phone] 06/15/2023 2:30 PM TEST TECHNICIAN Ancillary Procedure Department of Ophthalmology in [place], [place] [address] [place] [phone] Justin Bunch M.D. [address] [place] [phone] 06/15/2023 2:45 PM TEST TECHNICIAN Office Visit Department of Ophthalmology in [place], [place] [address] [place] [phone] Justin Bunch M.D. 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) SURGICAL PATHOLOGY Routine 04/07/2023 2: 10 PM TEST TECHNICIAN GASTROENTEROLOGY IMAGE EXAM Routine 04/07/2023 1:50 PM TEST TECHNICIAN COLONOSCOPY Routine 04/07/2023 1:48 PM TEST TECHNICIAN Cancer Colon Transverse Personal History COLONOSCOPY Routine 04/07/2023 1:48 PM TEST TECHNICIAN Cancer Colon Transverse Personal History GLUCOSE POCT, B Routine 04/07/2023 1:28 PM TEST TECHNICIAN URINALYSIS WITH MICROSCOPIC Routine 03/30/2023 1:12 PM TEST TECHNICIAN Hypertension And Chronic Kidney Disease Stage 5 (HCC) Anemia Of Chronic Renal Disease ALBUMIN, RANDOM, U Routine 03/30/2023 1: 12 PM TEST TECHNICIAN Hypertension And Chronic Kidney Disease Stage 5 (HCC) Anemia Of Chronic Renal Disease HEMOGLOBIN A1C, B Routine 03/30/2023 12: 21 PM TEST TECHNICIAN Hypertension And Chronic Kidney Disease Stage 5 (HCC) Anemia Of Chronic Renal Disease RENAL FUNCTION PANEL, S Routine 03/30/20 12:21 PM TEST TECHNICIAN Hypertension And Chronic Kidney Disease Stage 5 (HCC) Anemia Of Chronic Renal Disease CBC WITHOUT DIFFERENTIAL, B Routine 03/30/2023 12:21 PM TEST TECHNICIAN Hypertension And Chronic Kidney Disease Stage 5 (HCC) Anemia Of Chronic Renal Disease OPTICAL COHERENCE TOMOGRAPHY - MACULA/RETINA - OU - BOTH EYES Routine 03/06/2023 4:28 PM TEST TECHNICIAN 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) ANGIOGRAPHY - OU - BOTH EYES Routine 03/06/2023 4:27 PM TEST TECHNICIAN 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) OPHTHALMOLOGY IMAGE EXAM Routine 03/06/2023 12:00 AM TEST TECHNICIAN CBC WITH DIFFERENTIAL, B Routine 03/02/2023 12:41 PM TEST TECHNICIAN Anemia Of Chronic Renal Disease PARATHYROID HORMONE [...] Cytoplasmic Antibodies) Vasculitis Panel (04/21/2023 12:38 PM TEST TECHNICIAN) Myeloperoxidase Ab, S <0.2 <0.4 (Negative ) U 04/22/2023 9:00 AM TEST TECHNICIAN [facility] Protein[facility] 3 Ab (PR3), S <0.2 <0.4 (Negative ) U 04/22/2023 9:00 AM TEST TECHNICIAN [facility] Blood (Blood, Venous) 04/21/2023 12:38 PM TEST TECHNICIAN 04/22/2023 7:07 AM TEST TECHNICIAN Clover Delaney M.D. LAB BLOOD ADD-ON [facility] [address] [place] [address] [facility] [address] [place] [address] * Surgical Pathology (04/07/2023 2:10 PM TEST TECHNICIAN) 04/08/2023 3:39 PM TEST TECHNICIAN DTL Report electronically signed by Jayce [place] M.D. I verify that I have examined all relevant slides/materials for the specimen(s) and rendered or confirmed the diagnosis. 04/08/2023 3:39 PM TEST TECHNICIAN DTL Gross Description Received in formalin labeled with the patient's name, medical record number, and colon-cecum, descending colon, sigmoid are eightpale ventura-pink irregular soft tissues, ranging from 0.3-1.1 cm in greatest dimension. The largest fragment is bisected and submittedentirely in cassette A1 with the remaining fragments. ??Grossed by AJB. 04/08/2023 3:39 PM TEST TECHNICIAN DTL Interpretation FINAL DIAGNOSIS A. Colon, cecum, descending, sigmoid, endoscopic biopsy: Tubular adenoma, low-grade dysplasia. 04/08/2023 3:39 PM TEST TECHNICIAN DTL Polyp (Colon) 04/07/2023 2:1 0 PM TEST TECHNICIAN Wilfred Lott M.D. LAB SURG PATH ORD ERABLES Performing Organization Address City/[facility]/ZIP Co de Phone Number [facility] [address] [place] [address], [facility] DTL [address] [place] [address] * Colonoscopy-Gastroenterology Image Exam (04/07/2023 1:50 PM TEST TECHNICIAN) 04/07/2023 1:48 PM TEST TECHNICIAN Narrative IIMS - 04/07/2023 2:54 PM TEST TECHNICIAN This order has been created and auto-finalized to support the import of images acquired without order. The clinical documentation to support these images can be found on the encounter that produced images. Provider Not In System IMG NON RAD IMAGI NG PROCEDURES Performing Organization Address [facility] Co de Phone Number IISC NA * Colonoscopy (04/07/2023 1:48 PM TEST TECHNICIAN) 04/07/2023 1:48 PM TEST TECHNICIAN Impressions [employer] - 04/07/2023 2:47 PM TEST TECHNICIAN Post-op Diagnoses: ? - Diverticulosis in the [...] Narrative [employer] - 04/07/2023 2:47 PM TEST TECHNICIAN Gonda 9 GI GI Patient Name: Philip [...] ? preparation and pertinent family history. For [facility] providers, ? detailed recommendations are available as an [email or web address] Care Process ? Model: <[email or web address] ? There may be some circumstances, [...] preparation was ? evaluated using the BBPS (Lejunior Bowel Preparation Scale) with scores ? of: [...] Clover Delaney M.D. GI PROCEDURE DAMION PEPE [employer] NA * Glucose, POCT (04/07/2023 1:28 PM TEST TECHNICIAN) Glucose, POCT, B 134 70 - 140 mg/dL 04/07/2023 1:31 PM TEST TECHNICIAN PCMO Site Capillary 04/07/2023 1:31 PM TEST TECHNICIAN PCMO Blood 04/07/2023 1:28 PM TEST TECHNICIAN 04/07/2023 1:31 PM TEST TECHNICIAN Unknown Provider LAB POCT ORDERABLES- MANUAL POC [facility] [address] [facility] [address] [place] [address], [facility] POC [address] [place] [address] * (ABNORMAL) Albumin, Random, Urine (03/30/2023 1:12 PM TEST TECHNICIAN) Microalbumin 2148.9 mg/L 03/30/2023 1:47 PM TEST TECHNICIAN CNFL Creatinine 31 mg/dL 03/30/2023 1:26 PM TEST TECHNICIAN CNFL Albumin/Creatinin e Ratio 6932(H) <17 mg/g 03/30/2023 1:47 PM TEST TECHNICIAN CNFL Urine (Urine, Midstream) 03/30/2023 1:12 PM TEST TECHNICIAN 03/30/2023 1:12 PM TEST TECHNICIAN Drew Couch APRNN.P., M.S. LAB URINE ORDERABLES Performing Organization Address City/State/[facility] Co de Phone Number [facility] [address] [place] [address], [facility] CNFL [facility] [place] [address] * (ABNORMAL) Urinalysis with Microscopic: Urine, Midstream (03/30/2023 1:12 PM TEST TECHNICIAN) Source Urine, Urine, Midstream 03/30/2023 1:12 PM TEST TECHNICIAN CNFL Clarity Clear Clear 03/30/2023 1:15 PM TEST TECHNICIAN CNFL Color Yellow 03/30/2023 1:15 PM TEST TECHNICIAN CNFL Comment: ----REFERENCE VALUE---- Colorless Yellow Susana Blood Small(A) Negative 03/30/2023 1:15 PM TEST TECHNICIAN CNFL Nitrite Negative Negative 03/30/2023 1:15 PM TEST TECHNICIAN CNFL Leukocyte Esterase Negative Negative 03/30/2023 1:15 PM TEST TECHNICIAN CNFL Protein >=300(A) mg/dL 03/30/2023 1:15 PM TEST TECHNICIAN CNFL Comment: ----REFERENCE VALUE---- Negative Trace Glucose 100(A) Negative mg/dL 03/30/2023 1:15 PM TEST TECHNICIAN CNFL Ketones, QI(U) Negative Negative mg/dL 03/30/2023 1:15 PM TEST TECHNICIAN CNFL Bilirubin Negative Negative 03/30/2023 1:15 PM TEST TECHNICIAN CNFL pH 5.5 5.0 - 8.0 03/30/2023 1:15 PM TEST TECHNICIAN CNFL Specific H[place]ita 1.020 1.001 - 1.035 03/30/2023 1:15 PM TEST TECHNICIAN CNFL Urobilinogen 0.2 0.2 - 1.0 mg/dL 03/30/2023 1:15 PM TEST TECHNICIAN CNFL White Blood Cells Occ-3 /hpf 03/30/2023 1:47 PM TEST TECHNICIAN CNFL Comment: ----REFERENCE VALUE---- Males: 0-3 Females: 0-10 Unknown: 0-10 Red Blood Cells 3-10(A) 0 - 2 /hpf 1:47 PM TEST TECHNICIAN CNFL Urine (Urine, Midstream) 03/30/2023 1:12 PM TEST TECHNICIAN 03/30/2023 1:12 PM TEST TECHNICIAN Mónica Portillo APRN C.N.P., M.S. LAB URINE ORDERABLES [facility] [address] [place] [address], [facility] CNFL [facility] [place] [address] * (ABNORMAL) Renal Function Panel (03/30/2023 12:21 PM TEST TECHNICIAN) Only the most recent of2 resultswithin the time period is included. Potassium, P 5.0 3.6 - 5.2 mmol/L 03/30/2023 12:57 PM TEST TECHNICIAN CNFL Sodium, P 140 135 - 145 mmol/L 03/30/2023 12:57 PM TEST TECHNICIAN CNFL Chloride, P 105 98 - 107 mmol/L 03/30/2023 12:57 PM TEST TECHNICIAN CNFL Bicarbonate, P 19(L) 22 - 29 mmol/L 03/30/2023 12:57 PM TEST TECHNICIAN CNFL Anion Gap, P 16(H) 7 - 15 03/30/2023 12:57 PM TEST TECHNICIAN CNFL BUN (Blood Urea Nitrogen), P 79(H) 8 - 24 mg/dL 03/30/2023 12:57 PM TEST TECHNICIAN CNFL Creatinine 4.12(H) 0.74 - 1.35 mg/dL 03/30/2023 12:57 PM TEST TECHNICIAN CNFL Estimated GFR (eGFR) <15(L) >=60 mL/min/BSA 03/30/2023 12:57 PM TEST TECHNICIAN CNFL Comment: Estimated GFR calculated using the 2020 CKD_EPI creatinine equation. Calcium, Total, P 8.6(L) 8.8 - 10.2 mg/dL 03/30/2023 12:57 PM TEST TECHNICIAN CNFL Glucose, P 167(H) 70 - 140 mg/dL 03/30/2023 12:57 PM TEST TECHNICIAN CNFL Albumin, P 3.8 3.5 - 5.0 g/dL 03/30/2023 12:57 PM TEST TECHNICIAN CNFL Phosphorus (Inorganic), P 7.3(H) 2.5 - 4.5 mg/dL 03/30/2023 12:57 PM TEST TECHNICIAN CNFL Blood (Blood, Venous) 03/30/2023 12:21 PM TEST TECHNICIAN 03/30/2023 12:23 PM TEST TECHNICIAN Mónica Portillo APRN C.N.P., M.S. LAB BLOOD ADD-ON Performing Organization Address [facility]/State/[facility] Co de Phone Number [facility] [address] [place] [phone], [facility] in [address] [address] * (ABNORMAL) CBC without Differential (03/30/2023 12:21 PM TEST TECHNICIAN) Only the most recent of2 resultswithin the time period is included. Hemoglobin 9.9(L) 13.2 - 16.6 g/dL 03/30/2023 12:33 PM TEST TECHNICIAN CNFL Hematocrit 30.9(L) 38.3 - 48.6 % 03/30/2023 12:33 PM TEST TECHNICIAN CNFL Erythrocytes 3.26(L) 4.35 - 5.65 x10(12)/L 03/30/2023 12:33 PM TEST TECHNICIAN CNFL MCV 94.8 78.2 - 97.9 fL 03/30/2023 12:33 PM TEST TECHNICIAN CNFL RBC Distrib Width 14.4 11.8 - 14.5 % 03/30/2023 12:33 PM TEST TECHNICIAN CNFL Platelet Count 182 135 - 317 x10(9)/L 03/30/2023 12:33 PM TEST TECHNICIAN CNFL Leukocytes 10.0(H) 3.4 - 9.6 x10(9)/L 03/30/2023 12:33 PM TEST TECHNICIAN CNFL Blood (Blood, Venous) 03/30/2023 12:21 PM TEST TECHNICIAN 03/30/2023 12:23 PM TEST TECHNICIAN Drew Couch APRNNTaylor., M.S. LAB BLOOD ADD-ON Performing Organization Address City/[facility] [place] [address], [facility] [place] [address] * (ABNORMAL) Hemoglobin A1c (03/30/2023 12:21 PM TEST TECHNICIAN) Hemoglobin A1c, B 6.8(H) 4.2 - 5.6 % 03/30/2023 12:36 PM TEST TECHNICIAN CNFL Comment: Hemoglobin A1c values greater than or equal to 6.5 percent are diagnostic for diabetes mellitus. ??Diagnosis should be confirmed by repeat testing. ??In diabetic patients, HbA1c goals should be discussed with healthcare provider. Blood (Blood, Venous) 03/30/2023 12:21 PM TEST TECHNICIAN 03/30/2023 12:23 PM TEST TECHNICIAN Kassandra Couch APRN.N.P., M.S. LAB BLOOD ADD-ON [address] [address], [place] [address] * Optical Coherence Tomography (OCT) - Macula/Retina - OU - Both Eyes (03/06/2023 4:28 PM TEST TECHNICIAN) Narrative OPHTHALMOLOGY IMAGING EXAM - 03/06/2023 4:28 PM TEST TECHNICIAN See interpretation in note section Jon ARITA TOMOGRAP HY Performing Organization Address [facility] de Phone Number OPHTHALMOLOGY IMAGING EXAM * Fluorescein Angiography - OU - Both Eyes (03/06/2023 4:27 PM TEST TECHNICIAN) Narrative OPHTHALMOLOGY IMAGING EXAM - 03/06/2023 4:27 PM TEST TECHNICIAN Pt declined Jon ARITA PHOTOGRA PHY Performing Organization Address [facility] de Phone Number OPHTHALMOLOGY IMAGING EXAM * Eyes Spectralis OCT-Ophthalmology Image Exam (03/06/2023 12:00 AM TEST TECHNICIAN) Narrative IIMS - 03/06/2023 2:10 PM TEST TECHNICIAN This order has been created and auto-finalized to support the import of images acquired without order. The clinical documentation to support these images can be found on the encounter that produced images. Provider Not In System IMG NON RAD IMAGI NG PROCEDURES Performing Organization Address [facility] Co de Phone Number IIMS NA * (ABNORMAL) CBC with Differential, Blood (03/02/2023 12:41 PM TEST TECHNICIAN) Hemoglobin 9.7(L) 13.2 - 16.6 g/dL 03/02/2023 1:10 PM TEST TECHNICIAN CNFL Hematocrit 29.4(L) 38.3 - 48.6 % 03/02/2023 1:10 PM TEST TECHNICIAN CNFL Erythrocytes 3.17(L) 4.35 - 5.65 x10(12)/L 03/02/2023 1:10 PM TEST TECHNICIAN CNFL MCV 92.7 78.2 - 97.9 fL 03/02/2023 1:10 PM TEST TECHNICIAN CNFL RBC Distrib Width 14.4 11.8 - 14.5 % 03/02/2023 1:10 PM TEST TECHNICIAN CNFL Platelet Count 180 135 - 317 x10(9)/L 03/02/2023 1:10 PM TEST TECHNICIAN CNFL Leukocytes 10.3(H) 3.4 - 9.6 x10(9)/L 03/02/2023 1:10 PM TEST TECHNICIAN CNFL Neutrophils 8.51(H) 1.56 - 6.45 x10(9)/L 03/02/2023 1:10 PM TEST TECHNICIAN CNFL Lymphocytes 0.87(L) 0.95 - 3.07 x10(9)/L 03/02/2023 1:10 PM TEST TECHNICIAN CNFL Monocytes 0.71 0.26 - 0.81 x10(9)/L 03/02/2023 1:10 PM TEST TECHNICIAN CNFL Eosinophils 0.14 0.03 - 0.48 x10(9)/L 03/02/2023 1:10 PM TEST TECHNICIAN CNFL Basophils <0.04 0.01 - 0.08 x10(9)/L 03/02/2023 1:10 PM TEST TECHNICIAN CNFL Blood (Blood, Venous) 03/02/2023 12:41 PM TEST TECHNICIAN 03/02/2023 12:55 PM TEST TECHNICIAN Mónica Portillo APRN C.N.P., M.S. LAB BLOOD ADD-ON [facility] [address] [place] [id number], [facility] in [address] [address] * (ABNORMAL) Iron and Total Iron-Binding Capacity (02/26/2023 9:14 AM CDT) [facility] Iron 75 50 - 150 mcg/dL 02/26/2023 12:09 PM CDT [facility] Total Iron Binding Capacity 223(L) 250 - 400 mcg/dL 02/26/2023 12:09 PM CDT [facility] Percent Saturation 34 14 - 50 % 02/26/2023 12:09 PM CDT [facility] Blood (Blood, Venous) 02/26/2023 9:14 AM CDT 02/26/2023 11:45 AM CDT Mónica Portillo APRN, C.N.P., M.S. LAB BLOOD ADD-ON [facility]NOTE 2[facility] [address] [address], [facility] [place] [address] * (ABNORMAL) Parathyroid Hormone (PTH) (02/26/2023 9:14 AM CDT) Parathyroid Hormone (PTH), S 140(H) 15 - 65 pg/mL 02/26/2023 12:18 PM CDT RDW Comment: Biotin has been identified by the ladle operator as a potential interfering substance. Higher concentrations [...] M.S. LAB BLOOD ADD-ON Performing Organization Address City/[facility]/ZIP Co de Phone Number [facility] [place]NOTE 2[facility] [place] [address], [facility] RDW[facility] [place] [address] * (ABNORMAL) Ferritin (02/26/2023 9:14 AM CDT) Ferritin, S 533(H) 31 - 409 mcg/L 02/26/2023 12:18 PM CDT [facility] Comment: Biotin has been identified by the ladle operator as a potential interfering substance. Higher concentrations of biotin may be found in multivitamins, hair/nail supplements, and workout supplements. If the result does not match clinical observations, repeat testing after patient refrains from the use of supplements for at least 12 hours. Blood (Blood, Venous) 02/26/2023 9:14 AM CDT 02/26/2023 11:45 AM CDT Mónica Portillo APRN, C.N.P., M.S. LAB BLOOD ADD-ON [facility] [address] [place] [address], [facility] R[facility] [place] [address] [place] [address] from Last 3 Months Advance Directives For more information, please contact: [phone] Documents on File Type Date Recorded Patient Manager Body Expl anation Advance Directives 12/22/2017 11:[address] [facility] Care Directive Latest Code Status on File [...] First Alternate Health Care Agent Care Teams Gear Coding Machine Operator Relationship Specialty Start Date End Date Clover Delaney M.D. [address] [place] [id number] PCP - General Internal Medicine 11/23/17
--- OUTSIDE RECORDS SUMMARY | 2023-05-11 02:08 | XMS_ITS | Clinical Summary ---
Author Name Unknown Organization [facility] Address [address] [place] [address] Care Team Providers Care Alto Singer Name Role Phone Clover Delaney M.D. Primary Care Provider [phone] Source Comments Patient records contain information from all sites at [facility]. For routine questions regarding patient records, call [phone] during business hours, M-F 8:00 AM - 5:00 PM Central Time. 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 100 each 3 [...] Overview: Added automatically from request for surgery [id number] Cancer Colon Transverse Personal History 020 Overview: 03/2018 No evidence of metastatic disease, stable colon, diverticulosis on CT 04/09/2020 ([facility], [facility]) Repeat colonoscopy fall [address] Sewell (oncology, [place]), follow up Dr. Sewell 6-12 months with [...] of 03/2020 and determined to be benign ([facility] records). Leukocytosis 01/22/2018 Malignant Neoplasm Of [...] Overview: Added automatically from request for surgery [id number] Hematochezia 11/09/2017 07/01/2018 Overview: Added automatically from request for surgery [id number] Diarrhea 11/09/2017 09/28/2018 Overview: S/P recurrent c diff. Tolerates 1500mg metformin per day. Cancer Colon Family History 01/19/2015 01/06/2020 Encounters Date Type Department Care Team Description 05/05/2023 Intake [facility] 05/05/2023 Refill Department of Community Internal Medicine in [place] [address] [place] [phone] Clover Delaney M.D. Med Refill 04/21/2023 12:33 PM PROCESS TREATER - 04/21/2023 11:59 PM PROCESS TREATER Hospital Encounter Department of Laboratory Medicine in [address] [phone] Clover Delaney M.D. 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 04/15/2023 Orders Only Division of Nephrology and Hypertension in [place], [place] [address] [place] [phone] Yris Hughes, L.G.S.W., M.S.W. Chronic Kidney Disease Stage 5 Glomerular Filtration Rate Less Than 15 (HCC) (Primary Dx) 04/13/2023 Orders Only Department of Community Internal Medicine in [place] [address] [place] [phone] Clover Delaney M.D. 04/07/2023 1:50 PM PROCESS TREATER Ancillary Procedure Department of Gastroenterology 04/07/2023 1:01 PM PROCESS TREATER - 04/07/2023 11:59 PM PROCESS TREATER Hospital Encounter Division of Gastroenterology in [place], [place] [address] [place] [phone] Clover Delaney M.D. Cancer Colon Transverse Personal History Discharge Disposition: Home or Self Care 04/07/2023 9:15 AM PROCESS TREATER Telemedicine Division of Nephrology and Hypertension in [place], [place] [address] [place] [address] Mónica Portillo APRN, C.N.P., M.S. Hypertension And Chronic Kidney Disease Stage 5 (HCC) (Primary Dx); Proteinuria; 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; Acute Metabolic Acidosis; Hyperphosphatemia; Hypocalcemia 04/06/2023 10:30 AM PROCESS TREATER Diagnostic Department of Family Medicine, [facility], in [address] [place] [address] Mónica Portillo APRN, C.N.P., M.S. Hypertension And Chronic Kidney Disease Stage 5 (HCC) Discharge Disposition: Home or Self Care 04/01/2023 Orders Only Division of Nephrology and Hypertension, [facility], [place], [place] [address] [place] [phone] Frances Farah R.N. Chronic Kidney Disease (CKD), Stage 3b Glomerular Filtration Rate (GFR) 30 To 44 (HCC) (Primary Dx); Chronic Kidney Disease Stage 4 Glomerular Filtration Rate 15-29 (HCC) 03/30/2023 2:00 PM PROCESS TREATER Infusion Department of Infusion Therapy in [address] [phone] Mónica Portillo APRN C.N.P., M.S. Anemia Of Chronic Renal Disease (Primary Dx) 03/30/2023 1:00 PM PROCESS TREATER Nurse Only Department of Family Medicine, [facility], in [address] [phone] Mónica Portillo APRN, C.N.P., M.S. Basilia Santiago L.P.N. Blood Pressure Check Discharge Disposition: Home or Self Care 03/30/2023 12:14 PM PROCESS TREATER - 03/30/2023 11:59 PM PROCESS TREATER Hospital Encounter Department of Laboratory Medicine in [address] [phone] Mónica Portillo APRN, C.N.P., M.S. Hypertension And Chronic Kidney Disease Stage 5 (HCC); Anemia Of Chronic Renal Disease Discharge Disposition: Home or Self Care 03/30/2023 12:13 PM PROCESS TREATER Hospital Encounter Department of Laboratory Medicine in [address] [phone] Mónica Portillo APRN, C.N.Leela, M.S. Hypertension And Chronic Kidney Disease Stage 5 (HCC); Anemia Of Chronic Renal Disease Discharge Disposition: Home or Self Care 03/30/2023 Clinical Communication Department of [facility] Internal Medicine in [place] [address] [place] [phone] Clover Delaney M.D. Follow-up Orders (Patient returning call to [place] to a Kathleen? I do not see any message./ ) 03/30/2023 Orders Only Division of Nephrology and Hypertension in [place], [place] [address] [place] [address] Mónica Portillo APRN, C.N.P., M.S. Hypertension And Chronic Kidney Disease Stage 5 (HCC) (Primary Dx) 03/30/2023 Orders Only Division of Nephrology and Hypertension in [place], [place] [address] [place] [address] Mónica Portillo APRN C.N.P., M.S. 03/27/2023 Nurse Triage Department of [facility] Internal Medicine in [place] [address] [place] [address] [phone] Tahira Melton R.N. Earache 03/11/2023 Refill Division of Nephrology and Hypertension in [place], [place] [address] [place] [address] Mónica Portillo APRN, C.N.PJosé Luis, M.S. Med Refill 03/11/2023 Refill Department of [facility] in [place] [address] [place] [phone] Clover Delaney M.D. Med Refill 03/09/2023 Clinical Communication Department of [facility] in [address] [place] [address] Clover Delaney M.D. 03/06/2023 3:00 PM PROCESS TREATER Office Visit Department of Ophthalmology in [place], [place] [address] [place] [address] Justin Bunch M.D. 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 Anemia Of Chronic Renal Disease (Primary Dx) 03/02/2023 12:36 PM PROCESS TREATER - 03/02/2023 11:59 PM PROCESS TREATER Hospital Encounter Department of Laboratory Medicine in [address] [phone] Mónica Portillo APRN, C.N.P., M.S. Anemia Of Chronic Renal Disease Discharge Disposition: Home or Self Care 03/02/2023 8:30 AM PROCESS TREATER Telemedicine Division of Nephrology and Hypertension in [place], [place] [address] [place] [address] Mónica Portillo APRN, C.N.P., M.S. Hypertension And Chronic Kidney Disease Stage 5 (HCC) (Primary Dx); Anemia Of Chronic Renal Disease 03/02/2023 Orders Only Division of Nephrology and Hypertension in [place], [place] [address] [place] [address] Mónica Portillo APRN, C.N.P., M.S. 03/02/2023 Clinical Communication Department of Infusion Therapy in [address] [phone] Elaina Rueda, ShoaibN. Med Question ([place]) 02/26/2023 8:59 AM CDT - 02/26/2023 11:59 PM CDT Hospital Encounter Department of Laboratory Medicine in [address] [place] [address] Mónica Portillo APRN, C.N.P., M.S. 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); Proteinuria Discharge Disposition: Home or Self Care from Last 3 Months Immunizations Name Administration [...] Comments Pancreatic cancer Aunt paternal Cancer Father eSa Sanchez colon Colon cancer Father Sea Sanchez 4 1/2 yrs later after diagnosed Suicide Attempts Maternal Grandfather Benja Bermeo Com mitted suicide in 1956 Anesthesia problems Mother Nora Sanchez ponv Cancer Mother Nora Sanchez colon Colon cancer Mother Nora Sanchez Had it for 7 to 8 yrs prior to Depression Mother Nora Sanchez Hypertension Mother Nora Sanchez Obesity Mother Nora Sanchez Rectal cancer Mother Nora Sanchez Stroke Paternal Grandfather Zurdo sanchez in March 1960 Cancer Sister Pat Amanda colon Colon cancer Sister Kristin Sanchez A survivor, lance gnosed March 2005 Depression Sister Pat Amanda Hypertension Sister Pat Amanda Obesity Sister Kristin Sanchez Sleep apnea Sister [...] week 07/28/2022 How often do you attend [facility] or mormon services? Never 07/28/2022 Do you belong to [...] 0 06/06/2022 [facility] - Occupational [...] Sex Assigned at Male 05/13/2021 10:11 AM PROCESS TREATER Gender Identity Male 11/02/2017 7:22 PM CDT Sexual Orientation Straight 11/02/2017 7: 22 PM CDT Last Filed Vital Signs Vital Sign Reading Time Taken Comments Blood Pressure 174/83 04/07/2023 2:34 PM PROCESS TREATER Pulse 56 04/07/2023 2:34 PM PROCESS TREATER Temperature 36.7 ??C (98.1 ??F) 04/07/2023 2 :34 PM PROCESS TREATER Respiratory Rate 17 04/07/2023 2:34 PM PROCESS TREATER Oxygen Saturation 96% 04/07/2023 2:3 4 PM PROCESS TREATER Inhaled Oxygen Concentration - - Weight 152 kg (335 lb) 03/02/2023 8:22 AM PROCESS TREATER patient reported Height 177.8 cm (5' 10) 04/07/2023 1:1 9 PM PROCESS TREATER Body Mass Index 48.5 03/31/2022 2:55 PM PROCESS TREATER Plan of Treatment Upcoming Encounters Date Type Department Care Team (Latest Contact Info) Description 05/28/2023 10:00 AM PROCESS TREATER Appointment Department of Laboratory Medicine in [place] [address] [place] [phone] Mónica Portillo APRN, Kassandra.N.P., M.S. [address] [place] [phone] 05/28/2023 10:10 AM PROCESS TREATER Appointment Department of Laboratory Medicine in [place] [address] [place] [phone] Mónica Portillo APRN, Kassandra.N.P., M.S. [address] [place] [phone] 05/29/2023 8:00 AM PROCESS TREATER Office Visit Department of Community Internal Medicine in [place] [address] [place] [phone] Clover Delaney M.D. [address] [place] [phone] Discharge Disposition: Home or Self Care 05/29/2023 10:15 AM PROCESS TREATER Appointment Department of Radiology, [facility], in [place], [place] [address] [place] [phone] Mónica Portillo APRN, C.N.P., M.S. [address] [place] [phone] 05/29/2023 1:00 PM PROCESS TREATER Procedure visit Department of Urology in [place], [place] [address] [place] [phone] Mónica Portillo APRN, Kassandra.N.P., M.S. [address] [place] [phone] 05/29/2023 3:00 PM PROCESS TREATER Education Division of Nephrology and Hypertension in [place], [place] [address] [place] [phone] Mónica Portillo APRN, C.N.P., M.S. [address] [place] [phone] Sandeep Galicia R.N. [address] [place] [phone] 05/29/2023 4:00 PM PROCESS TREATER Comprehensive Visit Division of Nephrology and Hypertension in [place], [place] [address] [place] [phone] Sera Casiano M.D., Ph.D. [address] [place] [phone] 06/15/2023 2:00 PM PROCESS TREATER Ancillary Procedure Department of Ophthalmology in [place], [place] [address] [place] [phone] Justin Bunch M.D. [address] [place] [phone] 06/15/2023 2:30 PM PROCESS TREATER Ancillary Procedure Department of Ophthalmology in [place], [place] [address] [place] [phone] Justin Bunch M.D. [address] [place] [phone] 06/15/2023 2:45 PM PROCESS TREATER Office Visit Department of Ophthalmology in [place], [place] [address] [place] [phone] Justin Bunch M.D. [address] [place] [phone] Health Maintenance Due Date Last Done Comments Visit: Medicare Annual Wellness 1945 Diabetic Office Visit with F oot Exam 02/12/2021 02/13/2020 (Performed elsewhere), 02/11/2019, 01/11/2015 Zoster Vaccines (2 of 2) 08/02/2021 06/07/2021 Depression Screening (Annual PHQ-2) 04/27/2023 Fall Risk Screen (Annual) 04/27/2023 Hemoglobin A1C 06/29/2023 03/30/2023, 05/28, 03/31/2022, Additional history exists Office Visit for Blood Press ure Check / Re-check 06/29/2023 03/30/2023 Visit: Chronic Disease, age 18+ 09/06/2023 , 09/05/2022 Dilated Eye Exam 03/06/2024 03/06/2023, , 09/08/2022, Additional history exists Creatinine Level (Kidney Fun ction Test) 03/30/2024 03/30/2023, 02/26/2023, 09/01/2022, Additional history exists Potassium Level 03/30/2024 03/30/2023, 11/0 05/2022, 09/01/2022, Additional history exists Sodium Level 03/30/2024 03/30/2023, 11/0 05/2022, 09/01/2022, Additional history exists Urine Albumin 03/30/2024 03/30/2023, 050 11/2022, 07/25/2022, Additional history exists DTaP,Tdap,and Td Vaccines (4 - Td or Tdap) 02/11/2029 02/11/2019, 05/08/2008, 05/08/2008, Additional history exists Hepatitis A Vaccines Completed 11/22/1999, 05/17/19 Abdominal Aortic Aneurysm (A AA) Screen Discontinued 07/22/2017, 03/14/1998, 02/10/1998 Hepatitis C Screening Completed 01/27/2018 Pneumococcal vaccine (65+ years) Completed 02/11/2019, 03/08/2015, 03/01/2009, Additional history exists COVID-19 Vaccine Completed 01/24/2023, , 10/05/2021, Additional history exists Influenza Vaccine Completed 03/05/2023, , 02/02/2021, Additional history exists Colonoscopy Discontinued 04/07/2023, 03/27, 04/08/2022, Additional history exists Colorectal Cancer Surveillance Discontinued CT Colonography Discontinued Cologuard Discontinued Procedures Procedure Name Priority Date/Time Associated Diagnosis Comments ANCA VASCULITIS PANEL, S Routine 04/21/2023 12:38 PM PROCESS TREATER Chronic Kidney Disease (CKD), Stage 3b Glomerular Filtration Rate (GFR) 30 To 44 (HCC) 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) SURGICAL PATHOLOGY Routine 04/07/2023 2: 10 PM PROCESS TREATER GASTROENTEROLOGY IMAGE EXAM Routine 04/07/2023 1:50 PM PROCESS TREATER COLONOSCOPY Routine 04/07/2023 1:48 PM PROCESS TREATER Cancer Colon Transverse Personal History COLONOSCOPY Routine 04/07/2023 1:48 PM PROCESS TREATER Cancer Colon Transverse Personal History GLUCOSE POCT, B Routine 04/07/2023 1:28 PM PROCESS TREATER URINALYSIS WITH MICROSCOPIC Routine 03/30/2023 1:12 PM PROCESS TREATER Hypertension And Chronic Kidney Disease Stage 5 (HCC) Anemia Of Chronic Renal Disease ALBUMIN, RANDOM, U Routine 03/30/2023 1: 12 PM PROCESS TREATER Hypertension And Chronic Kidney Disease Stage 5 (HCC) Anemia Of Chronic Renal Disease HEMOGLOBIN A1C, B Routine 03/30/2023 12: 21 PM PROCESS TREATER Hypertension And Chronic Kidney Disease Stage 5 (HCC) Anemia Of Chronic Renal Disease RENAL FUNCTION PANEL, S Routine 03/30/20 12:21 PM PROCESS TREATER Hypertension And Chronic Kidney Disease Stage 5 (HCC) Anemia Of Chronic Renal Disease CBC WITHOUT DIFFERENTIAL, B Routine 03/30/2023 12:21 PM PROCESS TREATER Hypertension And Chronic Kidney Disease Stage 5 (HCC) Anemia Of Chronic Renal Disease OPTICAL COHERENCE TOMOGRAPHY - MACULA/RETINA - OU - BOTH EYES Routine 03/06/2023 4:28 PM PROCESS TREATER 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) ANGIOGRAPHY - OU - BOTH EYES Routine 03/06/2023 4:27 PM PROCESS TREATER 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) OPHTHALMOLOGY IMAGE EXAM Routine 03/06/2023 12:00 AM PROCESS TREATER CBC WITH DIFFERENTIAL, B Routine 03/02/2023 12:41 PM PROCESS TREATER Anemia Of Chronic Renal Disease PARATHYROID HORMONE [...] Cytoplasmic Antibodies) Vasculitis Panel (04/21/2023 12:38 PM PROCESS TREATER) Myeloperoxidase Ab, S <0.2 <0.4 (Negative ) U 04/22/2023 9:00 AM PROCESS TREATER [facility] Proteinase 3 Ab (PR3), S <0.2 <0.4 (Negative ) U 04/22/2023 9:00 AM PROCESS TREATER [facility] Blood (Blood, Venous) 04/21/2023 12:38 PM PROCESS TREATER 04/22/2023 7:07 AM PROCESS TREATER Clover Delaney M.D. LAB BLOOD ADD-ON [facility] [address] [place] [address] [facility] [address] [place] [address] * Surgical Pathology (04/07/2023 2:10 PM PROCESS TREATER) Pathologist [facility] 04/08/2023 3:39 PM PROCESS TREATER DTL Report electronically signed by Jayce Rogers M.D. I verify that I have examined all relevant slides/materials for the specimen(s) and rendered or confirmed the diagnosis. 04/08/2023 3:39 PM PROCESS TREATER DTL Gross Description Received in formalin labeled with the patient's name, medical record number, and colon-cecum, descending colon, sigmoid are eightpale ventura-pink irregular soft tissues, ranging from 0.3-1.1 cm in greatest dimension. The largest fragment is bisected and submittedentirely in cassette A1 with the remaining fragments. ??Grossed by AJB. 04/08/2023 3:39 PM PROCESS TREATER DTL Interpretation FINAL DIAGNOSIS A. Colon, cecum, descending, sigmoid, endoscopic biopsy: Tubular adenoma, low-grade dysplasia. 04/08/2023 3:39 PM PROCESS TREATER DTL Polyp (Colon) 04/07/2023 2:1 0 PM PROCESS TREATER Wilfred Lott M.D. LAB SURG PATH ORD ERABLES [facility] [address] [place] [address], [facility] DTL [address] [place] [address] * Colonoscopy-Gastroenterology Image Exam (04/07/2023 1:50 PM PROCESS TREATER) 04/07/2023 1:48 PM PROCESS TREATER Narrative IIMS - 04/07/2023 2:54 PM PROCESS TREATER This order has been created and auto-finalized to support the import of images acquired without order. The clinical documentation to support these images can be found on the encounter that produced images. Provider Not In System IMG NON RAD IMAGI NG PROCEDURES IIOR NA * Colonoscopy (04/07/2023 1:48 PM PROCESS TREATER) 04/07/2023 1:48 PM PROCESS TREATER Impressions [facility] - 04/07/2023 2:47 PM PROCESS TREATER Post-op Diagnoses: ? - Diverticulosis in the sigmoid colon. ? - Patent end-to-end colo-colonic anastomosis, characterized by healthy ? appearing mucosa. ? - Three 3 to 4 mm polyps in the sigmoid colon, in the descending colon ? and in the cecum, removed with a cold snare. Resected and retrieved. ? - The examination was otherwise normal on direct and retroflexion views. Narrative [facility] - 04/07/2023 2:47 PM PROCESS TREATER Gonda 9 GI GI Patient Name: Philip [...] ? preparation and pertinent family history. For [facility] providers, ? detailed recommendations are available as an AskMayoExpert Care Process ? Model: <[email or web address] ? There may be some circumstances, specifically [...] preparation was ? evaluated using the BBPS (Orange Bowel Preparation Scale) with scores ? of: [...] Clover Delaney M.D. GI PROCEDURE ORDERA BLES Performing Organization Address City/[facility]/ZIP Co de Phone Number [facility] * Glucose, POCT (04/07/2023 1:28 PM PROCESS TREATER) Glucose, POCT, B 134 70 - 140 mg/dL 04/07/2023 1:31 PM PROCESS TREATER PCMO Site Capillary 04/07/2023 1:31 PM PROCESS TREATER PCMO Blood 04/07/2023 1:28 PM PROCESS TREATER 04/07/2023 1:31 PM PROCESS TREATER Unknown Provider LAB POCT ORDERABLES- MANUAL Performing Organization Address City/[facility] Co de Phone Number [facility] [address] [facility] [address] [place] [address] * (ABNORMAL) Albumin, Random, Urine (03/30/2023 1:12 PM PROCESS TREATER) Microalbumin 2148.9 mg/L 03/30/2023 1:47 PM PROCESS TREATER [facility] Creatinine 31 mg/dL 03/30/2023 1:26 PM PROCESS TREATER [facility] Albumin/Creatinin e Ratio 6932(H) <17 mg/g 03/30/2023 1:47 PM PROCESS TREATER [facility] Urine (Urine, Midstream) 03/30/2023 1:12 PM PROCESS TREATER 03/30/2023 1:12 PM PROCESS TREATER Mónica Portillo APRN, C.N.P., M.S. LAB URINE ORDERABLES [facility] [address] [place] [phone], [facility] CN[facility] in [address] [address] * (ABNORMAL) Urinalysis with Microscopic: Urine, Midstream (03/30/2023 1:12 PM PROCESS TREATER) Source Urine, Urine, Midstream 03/30/2023 1:12 PM PROCESS TREATER [facility] Clarity Clear Clear 03/30/2023 1:15 PM PROCESS TREATER [facility] Color Yellow 03/30/2023 1:15 PM PROCESS TREATER [facility] Comment: ----REFERENCE VALUE---- Colorless Yellow Susana Blood Small(A) Negative 03/30/2023 1:15 PM PROCESS TREATER CNFL Nitrite Negative Negative 03/30/2023 1:15 PM PROCESS TREATER CNFL Leukocyte Esterase Negative Negative 03/30/2023 1:15 PM PROCESS TREATER CN[facility] Protein >=300(A) mg/dL 03/30/2023 1:15 PM PROCESS TREATER CNFL Comment: ----REFERENCE VALUE---- Negative Trace Glucose 100(A) Negative mg/dL 03/30/2023 1:15 PM PROCESS TREATER CNFL Ketones, QI(U) Negative Negative mg/dL 03/30/2023 1:15 PM PROCESS TREATER CNFL Bilirubin Negative Negative 03/30/2023 1:15 PM PROCESS TREATER CNFL pH 5.5 5.0 - 8.0 03/30/2023 1:15 PM PROCESS TREATER CNFL Specific [place] 1.020 1.001 - 1.035 03/30/2023 1:15 PM PROCESS TREATER CNFL Urobilinogen 0.2 0.2 - 1.0 mg/dL 03/30/2023 1:15 PM PROCESS TREATER [facility] White Blood Cells Occ-3 /hpf 03/30/2023 1:47 PM PROCESS TREATER CNFL Comment: ----REFERENCE VALUE---- Males: 0-3 Females: 0-10 Unknown: 0-10 Red Blood Cells 3-10(A) 0 - 2 /hpf 1:47 PM PROCESS TREATER [facility] Urine (Urine, Midstream) 03/30/2023 1:12 PM PROCESS TREATER 03/30/2023 1:12 PM PROCESS TREATER Mónica Portillo APRN, C.N.P., M.S. LAB URINE ORDERABLES [facility] [address] [place] [id number], [facility] [place] [address] * (ABNORMAL) Renal Function Panel (03/30/2023 12:21 PM PROCESS TREATER) Only the most recent of2 resultswithin the time period is included. Potassium, P 5.0 3.6 - 5.2 mmol/L 03/30/2023 12:57 PM PROCESS TREATER CNFL Sodium, P 140 135 - 145 mmol/L 03/30/2023 12:57 PM PROCESS TREATER CNFL Chloride, P 105 98 - 107 mmol/L 03/30/2023 12:57 PM PROCESS TREATER CNFL Bicarbonate, P 19(L) 22 - 29 mmol/L 03/30/2023 12:57 PM PROCESS TREATER CNFL Anion Gap, P 16(H) 7 - 15 03/30/2023 12:57 PM PROCESS TREATER CNFL BUN (Blood Urea Nitrogen), P 79(H) 8 - 24 mg/dL 03/30/2023 12:57 PM PROCESS TREATER CNFL Creatinine 4.12(H) 0.74 - 1.35 mg/dL 03/30/2023 12:57 PM PROCESS TREATER CNFL Estimated GFR (eGFR) <15(L) >=60 mL/min/BSA 03/30/2023 12:57 PM PROCESS TREATER CNFL Comment: Estimated GFR calculated using the 2020 CKD_EPI creatinine equation. Calcium, Total, P 8.6(L) 8.8 - 10.2 mg/dL 03/30/2023 12:57 PM PROCESS TREATER CNFL Glucose, P 167(H) 70 - 140 mg/dL 03/30/2023 12:57 PM PROCESS TREATER CNFL Albumin, P 3.8 3.5 - 5.0 g/dL 03/30/2023 12:57 PM PROCESS TREATER CNFL Phosphorus (Inorganic), P 7.3(H) 2.5 - 4.5 mg/dL 03/30/2023 12:57 PM PROCESS TREATER CNFL Blood (Blood, Venous) 03/30/2023 12:21 PM PROCESS TREATER 03/30/2023 12:23 PM PROCESS TREATER Mónica Portillo APRN, C.N.P., M.S. LAB BLOOD ADD-ON [facility] [address] [place] [address], [facility] CNFL [facility] [place] [address] * (ABNORMAL) CBC without Differential (03/30/2023 12:21 PM PROCESS TREATER) Only the most recent of2 resultswithin the time period is included. Hemoglobin 9.9(L) 13.2 - 16.6 g/dL 03/30/2023 12:33 PM PROCESS TREATER CNFL Hematocrit 30.9(L) 38.3 - 48.6 % 03/30/2023 12:33 PM PROCESS TREATER CNFL Erythrocytes 3.26(L) 4.35 - 5.65 x10(12)/L 03/30/2023 12:33 PM PROCESS TREATER CNFL MCV 94.8 78.2 - 97.9 fL 03/30/2023 12:33 PM PROCESS TREATER CNFL RBC Distrib Width 14.4 11.8 - 14.5 % 03/30/2023 12:33 PM PROCESS TREATER CNFL Platelet Count 182 135 - 317 x10(9)/L 03/30/2023 12:33 PM PROCESS TREATER CNFL Leukocytes 10.0(H) 3.4 - 9.6 x10(9)/L 03/30/2023 12:33 PM PROCESS TREATER CNFL Blood (Blood, Venous) 03/30/2023 12:21 PM PROCESS TREATER 03/30/2023 12:23 PM PROCESS TREATER Mónica Portillo APRN, C.N.P., M.S. LAB BLOOD ADD-ON [address] [address], [facility] in [address] [address] * (ABNORMAL) Hemoglobin A1c (03/30/2023 12:21 PM PROCESS TREATER) Hemoglobin A1c, B 6.8(H) 4.2 - 5.6 % 03/30/2023 12:36 PM PROCESS TREATER CNFL Comment: Hemoglobin A1c values greater than or equal to 6.5 percent are diagnostic for diabetes mellitus. ??Diagnosis should be confirmed by repeat testing. ??In diabetic patients, HbA1c goals should be discussed with healthcare provider. Blood (Blood, Venous) 03/30/2023 12:21 PM PROCESS TREATER 03/30/2023 12:23 PM PROCESS TREATER Mónica Portillo APRN, C.N.P., M.S. LAB BLOOD ADD-ON Performing Organization Address [facility] Co de Phone Number [address] [address], [facility] in [address] [address] * Optical Coherence Tomography (OCT) - Macula/Retina - OU - Both Eyes (03/06/2023 4:28 PM PROCESS TREATER) Narrative OPHTHALMOLOGY IMAGING EXAM - 03/06/2023 4:28 PM PROCESS TREATER See interpretation in note section Jon Juarez M.D. OPHTH TOMOGRAP HY OPHTHALMOLOGY IMAGING EXAM * Fluorescein Angiography - OU - Both Eyes (03/06/2023 4:27 PM PROCESS TREATER) Narrative OPHTHALMOLOGY IMAGING EXAM - 03/06/2023 4:27 PM PROCESS TREATER Pt declined Jon Juarez M.D. OPHTH PHOTOGRA PHY OPHTHALMOLOGY IMAGING EXAM * Eyes Spectralis OCT-Ophthalmology Image Exam (03/06/2023 12:00 AM PROCESS TREATER) Narrative IIMS - 03/06/2023 2:10 PM PROCESS TREATER This order has been created and auto-finalized to support the import of images acquired without order. The clinical documentation to support these images can be found on the encounter that produced images. Provider Not In System IMG NON RAD IMAGI NG PROCEDURES [facility] NA * (ABNORMAL) CBC with Differential, Blood (03/02/2023 12:41 PM PROCESS TREATER) Hemoglobin 9.7(L) 13.2 - 16.6 g/dL 03/02/2023 1:10 PM PROCESS TREATER CNFL Hematocrit 29.4(L) 38.3 - 48.6 % 03/02/2023 1:10 PM PROCESS TREATER CNFL Erythrocytes 3.17(L) 4.35 - 5.65 x10(12)/L 03/02/2023 1:10 PM PROCESS TREATER CNFL MCV 92.7 78.2 - 97.9 fL 03/02/2023 1:10 PM PROCESS TREATER CNFL RBC Distrib Width 14.4 11.8 - 14.5 % 03/02/2023 1:10 PM PROCESS TREATER CNFL Platelet Count 180 135 - 317 x10(9)/L 03/02/2023 1:10 PM PROCESS TREATER CNFL Leukocytes 10.3(H) 3.4 - 9.6 x10(9)/L 03/02/2023 1:10 PM PROCESS TREATER CNFL Neutrophils 8.51(H) 1.56 - 6.45 x10(9)/L 03/02/2023 1:10 PM PROCESS TREATER CNFL Lymphocytes 0.87(L) 0.95 - 3.07 x10(9)/L 03/02/2023 1:10 PM PROCESS TREATER CNFL Monocytes 0.71 0.26 - 0.81 x10(9)/L 03/02/2023 1:10 PM PROCESS TREATER CNFL Eosinophils 0.14 0.03 - 0.48 x10(9)/L 03/02/2023 1:10 PM PROCESS TREATER CNFL Basophils <0.04 0.01 - 0.08 x10(9)/L 03/02/2023 1:10 PM PROCESS TREATER CNFL Blood (Blood, Venous) 03/02/2023 12:41 PM PROCESS TREATER 03/02/2023 12:55 PM PROCESS TREATER Drew Couch APRNNTaylor., M.S. LAB BLOOD ADD-ON [facility] [address] [place] [id number], [facility] CNFL [facility] in [address] [address] * (ABNORMAL) Iron and Total Iron-Binding Capacity (02/26/2023 9:14 AM CDT) Iron 75 50 - 150 mcg/dL 02/26/2023 12:09 PM CDT [facility] Total Iron Binding Capacity 223(L) 250 - 400 mcg/dL 02/26/2023 12:09 PM CDT [facility] Percent Saturation 34 14 - 50 % 02/26/2023 12:09 PM CDT [facility] Blood (Blood, Venous) 02/26/2023 9:14 AM CDT 02/26/2023 11:45 AM CDT Drew Couch APRNN.Allie., M.S. LAB BLOOD ADD-ON [facility] [address] [place] [address], [place] [facility] [place] [address] [place] [address] * (ABNORMAL) Parathyroid Hormone (PTH) (02/26/2023 9:14 AM CDT) Parathyroid Hormone (PTH), S 140(H) 15 - 65 pg/mL 02/26/2023 12:18 PM CDT [facility] Comment: Biotin has been identified by the associate chief nurse as a potential interfering substance. Higher concentrations [...] M.S. LAB BLOOD ADD-ON Performing Organization Address City/[facility] Co de Phone Number [facility] [address] [place] [address], [facility] in [address] [phone] * (ABNORMAL) Ferritin (02/26/2023 9:14 AM CDT) Ferritin, S 533(H) 31 - 409 mcg/L 02/26/2023 12:18 PM CDT [facility] Comment: Biotin has been identified by the associate chief nurse as a potential interfering substance. Higher concentrations of biotin may be found in multivitamins, hair/nail supplements, and workout supplements. If the result does not match clinical observations, repeat testing after patient refrains from the use of supplements for at least 12 hours. Blood (Blood, Venous) 02/26/2023 9:14 AM CDT 02/26/2023 11:45 AM CDT Drew Couch APRNNTaylor., M.S. LAB BLOOD ADD-ON Performing Organization Address City/[facility]/ZIP Co de Phone Number [facility] [address] [place] [address], [facility] in [place] [address] [place] [phone] from Last 3 Months Advance Directives For more information, please contact: [phone] Documents on File Type Date Recorded Patient Workshop Manager Expl anation Advance Directives 12/22/2017 11:40 AM [facility] Care Directive Latest Code Status on [...] Agents on File Name Relationship Healthcare [facility] Sayra Sanchez Spouse Health Care Agent Kathie Silveira Daughter First Alternate Health Care Agent Monica Flakita Daughter First Alternate Health Care Agent Care Teams Alto Singer Relationship Specialty Start Date End Date Clover Delaney M.D. [address] [place] [address] PCP - General Internal Medicine 11/23/17
--- OUTSIDE RECORDS SUMMARY | 2023-05-11 02:09 | XMS_ITS | Encounter Summary ---
Author Name Unknown Organization [facility] Address [address] [place] [address] Care Team Providers Care Call Or Contact Centre Team Leader Name Role Phone Clover Delaney M.D. Primary Care Provider [phone]- [phone] Reason for Visit * Reason Comments Nurse Visit BP check Encounter Details Date Type Department Care Team (Late st Contact Info) Description 04/06/2023 10:30 AM CARDIAC CATH TECH Diagnostic Department of Family Medicine, [facility], in [address] [place] [phone] Mónica Portillo APRN, C.N.P., M.S. [address] [place] [phone] Hypertension And Chronic Kidney Disease Stage 5 [...] often do you attend chur ch or baptist services? Never 07/28/2022 Do you belong to [...] Score 0 06/06/2022 [facility] [place] of Occupat ional Health - Occupational Stress [...] Sex Assigned at Male 05/13/2021 10:11 AM CARDIAC CATH TECH Gender Identity Male 11/02/2017 7:22 PM CDT Sexual Orientation Straight 11/02/2017 7: 22 PM CDT documented as of this encounter Last Filed Vital Signs Vital Sign Reading Time Taken Comments Blood Pressure 162/74 04/06/2023 10:25 AM CARDIAC CATH TECH Pulse - - Temperature - - Respiratory [...] today's visit and the patient was dismissed IAC CATH TECH documented in this encounter Plan of Treatment Upcoming Encounters Date Type Department Care Team (Latest Contact Info) Description 05/28/2023 10:00 AM CARDIAC CATH TECH Appointment Department of Laboratory Medicine in [place], [place] [address] [place] [place] [phone] Mónica Portillo APRN, C.N.P., M.S. [address] [place] [phone] 05/28/2023 10:10 AM CARDIAC CATH TECH Appointment Department of Laboratory Medicine in [place], [place] [address] [place] [place] [phone] Mónica Portillo APRN, C.N.P., M.S. [address] [place] [phone] 05/29/2023 8:00 AM CARDIAC CATH TECH Office Visit Department of Community Internal Medicine in [place] [id number] [place] [phone] Clover Delaney M.D. [address] [place] [address] Discharge Disposition: Home or Self Care 05/29/2023 10:15 AM CARDIAC CATH TECH Appointment Department of Radiology, [facility] in [place], [place] [address] [place] [address] Mónica Portillo APRN, C.N.P., M.S. [address] [place] [phone] 05/29/2023 1:00 PM CARDIAC CATH TECH Procedure visit Department of Urology in [place], [place] [address] [place] [phone] Mónica Portillo APRN, C.N.P., M.S. [address] [place] [phone] 05/29/2023 3:00 PM CARDIAC CATH TECH Education Division of Nephrology and Hypertension in [place], [place] [address] [place] [address] Mónica Portillo APRN, C.N.P., M.S. [address] [place] [phone] Sandeep Galicia R.N. [address] [place] [phone] 05/29/2023 4:00 PM CARDIAC CATH TECH Comprehensive Visit Division of Nephrology and Hypertension in [place], [place] [address] [place] [phone] Sera Casiano M.D., Ph.D. [address] [place] [phone] 06/15/2023 2:00 PM CARDIAC CATH TECH Ancillary Procedure Department of Ophthalmology in [place], [place] [address] [place] [phone] Justin Bunch M.D. [address] [place] [phone] 06/15/2023 2:30 PM CARDIAC CATH TECH Ancillary Procedure Department of Ophthalmology in [place], [place] [address] [place] [phone] Justin Bunch M.D. [address] [place] [phone] 06/15/2023 2:45 PM CARDIAC CATH TECH Office Visit Department of Ophthalmology in [place], [place] [address] [place] [phone] Justin Bunch M.D. [address] [place] [phone] documented as of this encounter Visit Diagnoses Diagnosis Hypertension And Chronic Kidney Disease Stage 5 (HCC) documented in this encounter Additional Health Concerns Assessment Noted Time PHQ-9 Depression Total Score: 4 06/06/19 23 2:04 PM CARDIAC CATH TECH documented as of this encounter Care Teams Call Or Contact Centre Team Leader Relationship Specialty Start Date End Date Clover Delaney M.D. [address] [place] [phone] PCP - General Internal Medicine 11/23/17 documented as of this encounter
--- OUTSIDE RECORDS SUMMARY | 2023-05-11 02:09 | XMS_ITS | Encounter Summary ---
Author Name Unknown Organization [facility] Address [address] [place] [address] Care Team Providers Care Design And Sales Consultant Name Role Phone Clover Delaney M.D. Primary Care Provider [phone]- [phone] Reason for Referral * Outpatient (Routine) - Authorized Specialty Diagnoses / Procedures Referred By Yenny hunter Referred To Contact Nephrology and Hypertension Diagnoses Hypertension And Chronic Kidney Disease Stage 5 (HCC) Proteinuria Mónica Barry APRN, C.N.P., M.S. [address] [place] [phone] [facility] Referral ID Status Reason Start Date Expiration Date Visits Requested Visits Authorized [id number] Authorized Specialty Services Required 3 04/06/2024 1 1 Scheduling Instructions PLEASE ADD TO DR. LOUIS'S CALENDAR APRIL 21, [address] LOUIS'S SCHEDULE APRIL 21, 2023 PER HER REQUEST. THANKS! 1:[address] LOUIS'S CALENDAR APRIL 21 ICAL LEAD * Outpatient (Routine) - Authorized Specialty Diagnoses / Procedures Referred By Yenny t Referred To Contact Diagnoses Hypertension And Chronic Kidney Disease Stage 5 (HCC) Proteinuria Procedures URO Uroflow Mónica Barry APRN, C.N.P., M.S. [address] [place] [phone] [facility] Referral ID Status Reason Start Date Expiration Date V isits Requested Visits Authorized [id number] Authorized 04/07/2023 04/06/2024 1 1 ICAL LEAD * Outpatient (Routine) - Authorized Specialty Diagnoses / Procedures Referred By Contac t Referred To Contact Diagnoses Hypertension And Chronic Kidney Disease Stage 5 (HCC) Proteinuria Procedures US Kidneys Bilateral with Bladder Mónica Barry APRN, C.N.P., M.S. [address] [place] [phone] [facility] Referral ID Status Reason Start Date Expiration Date V isits Requested Visits Authorized [id number] Authorized 04/07/2023 04/06/2024 1 1 ICAL LEAD * Outpatient (Routine) - Authorized Specialty Diagnoses / Procedures Referred By Yenny hunter Referred To Contact Nutrition Diagnoses Hypertension And Chronic Kidney Disease Stage 5 (HCC) Proteinuria 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 Acute Metabolic Acidosis Hyperphosphatemia Hypocalcemia Mónica Barry APRN, C.N.P., M.S. [address] [place] [phone] [facility] Referral ID Status Reason Start Date Expiration Date V isits Requested Visits Authorized [id number] Authorized 04/07/2023 04/06/2024 1 1 Scheduling Instructions This appointment should ideally be scheduled AFTER the Curtain Drier Consults, but must at least be scheduled 48 hours after 24-hour urine collection is complete. Virtual visit is acceptable for this dietitian visit. Please coordinate labs with monthly CBC and okay for virtual follow up ICAL LEAD Reason for Visit * Outpatient (Routine) - Closed Specialty Diagnoses / Procedures Referred By Yenny hunter Referred To Contact Nephrology and Hypertension Mónica Barry APRN, C.N.P., M.S. [address] [place] [address] [facility] Referral ID Status Reason Start Date Expiration Date Visits Re quested Visits Authorized [id number] Closed 03/02/2023 03/01/2026 1 1 Encounter Details Date Type Department Care Team (Latest Contact Info) Description 04/07/2023 9:15 AM SURGICAL LEAD Telemedicine Division of Nephrology and Hypertension in [place], [place] [address] [place] [phone] Mónica Barry APRN, C.N.P., M.S. [address] [place] [phone] Hypertension And Chronic Kidney Disease Stage 5 [...] often do you attend chur ch or alevism services? Never 07/28/2022 Do you belong to any clubs o r organizations such as religious groups, unions, fraternal or athletic groups, or [...] Answer Date Recorded PHQ-2 Score 0 06/06/2022 [facility] of Occupat ional Health [...] Sex Assigned at Male 05/13/2021 10:11 AM SURGICAL LEAD Gender Identity Male 11/02/2017 7:22 PM CDT Sexual Orientation Straight 11/02/2017 7: 22 PM CDT documented as of this encounter Progress Notes * Mónica Barry APRN, C.N.P., M.S. - 04/07/2023 9:15 AM CST SUBJECTIVE CHIEF COMPLAINT / REASON FOR VISIT Chronic kidney disease follow-up Follow-up conducted via real-time audio/video technology by Mónica Barry APRN, C.N.P., M.S. in [facility] to the patient in Patient's Home HISTORY OF PRESENT ILLNESS Mr. Patel is a 77 y.o. 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 I will ask a collaborating tool grinding machine operator to assist with ruling out an acute [...] CKD treatment options Referral placed for Kidney dragline oiler team to assist with reviewing CKD pathways and dialysis planning #3 Hypertension BP is persistently greater than goal. Albumin creatinine ratio has continued upward trend at [id number] mg per g. I am adding Doxazosin [...] Initiate sodium bicarbonate 650 mg twice daily. ICAL LEAD documented in this encounter Miscellaneous Notes * Addendum Note - Mónica Barry APRN, C.N.P., M.S. - 04/07/2023 9:15 AM SURGICAL LEAD Addended by: MÓNICA BARRY on: 04/23/2023 12:57 PM Modules accepted: Orders ICAL LEAD documented in this encounter Plan of Treatment Upcoming Encounters Date Type Department Care Team (Latest Contact Info) Description 05/28/2023 10:00 AM SURGICAL LEAD Appointment Department of Laboratory Medicine in [place], [place] [address] [place] [phone] Mónica Barry APRN, C.N.P., M.S. [address] [place] [phone] 05/28/2023 10:10 AM SURGICAL LEAD Appointment Department of Laboratory Medicine in [place], [place] [address] [place] [phone] Mónica Barry APRN, C.N.P., M.S. [address] [place] [phone] 05/29/2023 8:00 AM SURGICAL LEAD Office Visit Department of Community Internal Medicine in [place], [place] [address] [place] [phone] Clover Delaney M.D. [address] [place] [phone] Discharge Disposition: Home or Self Care 05/29/2023 10:15 AM SURGICAL LEAD Appointment Department of Radiology, [facility] in [place], [place] [address] [place] [address] Mónica Barry APRN, C.N.P., M.S. [address] [place] [phone] 05/29/2023 1:00 PM SURGICAL LEAD Procedure visit Department of Urology in [place], [place] [address] [place] [phone] Mónica Barry APRN, C.N.P., M.S. [address] [place] [phone] 05/29/2023 3:00 PM SURGICAL LEAD Education Division of Nephrology and Hypertension in [place], [place] [address] [place] [phone] Mónica Barry APRN, C.N.P., M.S. [address] [place] [phone] Sandeep Galicia R.N. [address] [place] [phone] 05/29/2023 4:00 PM SURGICAL LEAD Comprehensive Visit Division of Nephrology and Hypertension in [place], [place] [address] [place] [phone] Sera Casiano M.D., Ph.D. [address] [place] [phone] 06/15/2023 2:00 PM SURGICAL LEAD Ancillary Procedure Department of Ophthalmology in [place], [place] [address] [place] [phone] Justin Bunch M.D. [address] [place] [phone] 06/15/2023 2:30 PM SURGICAL LEAD Ancillary Procedure Department of Ophthalmology in [place], [place] [address] [place] [phone] Justin Bunch M.D. [address] [place] [phone] 06/15/2023 2:45 PM SURGICAL LEAD Office Visit Department of Ophthalmology in [place], [place] [address] [place] [phone] Justin Bunch M.D. [address] [place] [phone] Scheduled Orders Name Type Priority Associated Diagnoses [...] Total Score: 4 06/06/19 23 2:04 PM SURGICAL LEAD documented as of this encounter Care Teams Design And Sales Consultant Relationship Specialty Start Date End Date Clover Delaney M.D. [address] [place] [phone] PCP - General Internal Medicine 11/23/17 documented as of this encounter
--- OUTSIDE RECORDS SUMMARY | 2023-05-11 02:09 | XMS_ITS ---
Author Name Unknown Organization [facility] Address [address] [place] [address] Care Team Providers Care Protein Chemist Name Role Phone Unavailable Unavailable Unavailable Surgery Details Not on file Complications Check Surgery Details section. Procedure Estimated Blood Loss Check Surgery Details section. Procedure Findings Check Surgery Details section. Procedure Specimens Taken Check Surgery Details section.
--- OUTSIDE RECORDS SUMMARY | 2023-05-11 02:09 | XMS_ITS | Encounter Summary ---
Author Name Unknown Organization [facility] Address [address] [place] [address] Care Team Providers Care Data Communications Technician Name Role Phone Clover Delaney M.D. 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 Chronic Kidney Disease [...] often do you attend chur ch or zoroastrianism services? Never 07/28/2022 Do you belong to [...] Answer Date Recorded PHQ-2 Score 0 06/06/2022 [facility] of Occupat ional Health - Occupational Stress [...] Sex Assigned at Male 05/13/2021 10:11 AM CONTAINER PACKER OPERATOR Gender Identity Male 11/02/2017 7:22 PM CDT Sexual Orientation Straight 11/02/2017 7: 22 PM CDT documented as of this encounter Plan of Treatment Upcoming Encounters Date Type Department Care Team (Latest Contact Info) Description 05/28/2023 10:00 AM CONTAINER PACKER OPERATOR Appointment Department of Laboratory Medicine in [place] [address] [place] [address] Mónica Portillo APRN, C.N.P., M.S. [address] [place] [phone] 05/28/2023 10:10 AM CONTAINER PACKER OPERATOR Appointment Department of Laboratory Medicine in [place] [address] [place] [phone] Mónica Portillo APRN, C.N.P., M.S. [address] [place] [phone] 05/29/2023 8:00 AM CONTAINER PACKER OPERATOR Office Visit Department of Community Internal Medicine in [place] [address] [place] [phone] Clover Delaney M.D. [address] [place] [phone] Discharge Disposition: Home or Self Care 05/29/2023 10:15 AM CONTAINER PACKER OPERATOR Appointment Department of Radiology, [facility] in [place], [place] [address] [place] [phone] Mónica Portillo APRN, C.NTaylor., M.S. [address] [place] [phone] 05/29/2023 1:00 PM CONTAINER PACKER OPERATOR Procedure visit Department of Urology in [place], [place] [address] [place] [address] Mónica Portillo APRN, C.NTaylor., M.S. [address] [place] [phone] 05/29/2023 3:00 PM CONTAINER PACKER OPERATOR Education Division of Nephrology and Hypertension in [place], [place] [address] [place] [phone] Mónica Portillo APRN, C.NTaylor., M.S. [address] [place] [phone] Sandeep Galicia R.N. [address] [place] [phone] 05/29/2023 4:00 PM CONTAINER PACKER OPERATOR Comprehensive Visit Division of Nephrology and Hypertension in [place], [place] [address] [place] [phone] Sera Casiano M.D., Ph.D. [address] [place] [phone] 06/15/2023 2:00 PM CONTAINER PACKER OPERATOR Ancillary Procedure Department of Ophthalmology in [place], [place] [address] [place] [phone] Justin Bunch M.D. [address] [place] [phone] 06/15/2023 2:30 PM CONTAINER PACKER OPERATOR Ancillary Procedure Department of Ophthalmology in [place], [place] [address] [place] [address] Justin Bunch M.D. [address] [place] [phone] 06/15/2023 2:45 PM CONTAINER PACKER OPERATOR Office Visit Department of Ophthalmology in [place], [place] [address] [place] [address] Justin Bunch M.D. [address] [place] [address] Scheduled Referrals Name Type Priority Associated Diagnoses [...] Total Score: 4 06/06/19 23 2:04 PM CONTAINER PACKER OPERATOR documented as of this encounter Care Teams Data Communications Technician Relationship Specialty Start Date End Date Clover Delaney M.D. [address] [place] [phone] PCP - General Internal Medicine 11/23/17 documented as of this encounter
--- OUTSIDE RECORDS SUMMARY | 2023-05-11 02:09 | XMS_ITS | Encounter Summary ---
Author Name Unknown Organization [facility] Address [address] [place] [address] Care Team Providers Care Or Nurse Manager Name Role Phone Clover Delaney M.D. Primary Care Provider [phone]- [phone] Encounter Details Date Type Department Care Team (Late st Contact Info) Description 04/13/2023 Orders Only Department of Community Internal Medicine in [place], [place] [address] [place] [address] [place] [phone] Clover Delaney M.D. [address] [place] [phone] Social History Tobacco Use Types [...] [facility] of Occupat ional Health [...] Sex Assigned at Male 05/13/2021 10:11 AM GAS METER READER Gender Identity Male 11/02/2017 7:22 PM CDT Sexual Orientation Straight 11/02/2017 7: 22 PM CDT documented as of this encounter Plan of Treatment Upcoming Encounters Date Type Department Care Team (Latest Contact Info) Description 05/28/2023 10:00 AM GAS METER READER Appointment Department of Laboratory Medicine in [place] [address] [place] [address] Mónica Portillo APRN, C.N.P., M.S. [address] [place] [phone] 05/28/2023 10:10 AM GAS METER READER Appointment Department of Laboratory Medicine in [place] [address] [place] [phone] Mónica Portillo APRN, Kassandra.N.P., M.S. [address] [place] [phone] 05/29/2023 8:00 AM GAS METER READER Office Visit Department of Community Internal Medicine in [place] [address] [place] [address] Clover Delaney M.D. [address] [place] [phone] Discharge Disposition: Home or Self Care 05/29/2023 10:15 AM GAS METER READER Appointment Department of Radiology, [facility], in [place], [place] [address] [place] [phone] Mónica Portillo APRN, C.N.P., M.S. [address] [place] [phone] 05/29/2023 1:00 PM GAS METER READER Procedure visit Department of Urology in [place], [place] [address] [place] [phone] Mónica Portillo APRN, Kassandra.N.P., M.S. [address] [place] [phone] 05/29/2023 3:00 PM GAS METER READER Education Division of Nephrology and Hypertension in [place], [place] [address] [place] [phone] Mónica Portillo APRN, DrewNJosé LuisP., M.S. [address] [place] [phone] Sandeep Galicia R.N. [address] [place] [phone] 05/29/2023 4:00 PM GAS METER READER Comprehensive Visit Division of Nephrology and Hypertension in [place], [place] [address] [place] [phone] Sera Casiano M.D., Ph.D. [address] [place] [phone] 06/15/2023 2:00 PM GAS METER READER Ancillary Procedure Department of Ophthalmology in [place], [place] [address] [place] [phone] Justin Bunch M.D. [address] [place] [phone] 06/15/2023 2:30 PM GAS METER READER Ancillary Procedure Department of Ophthalmology in [address] [phone] Justin Bunch M.D. [address] [place] [phone] 06/15/2023 2:45 PM GAS METER READER Office Visit Department of Ophthalmology in [address] [phone] Justin Bunch M.D. [address] [place] [phone] documented as of this encounter Visit Diagnoses Not on filedocumented in this encounter Additional Health Concerns Assessment Noted Time PHQ-9 Depression Total Score: 4 06/06/19 23 2:04 PM GAS METER READER documented as of this encounter Care Teams Or Nurse Manager Relationship Specialty Start Date End Date Clover Delaney M.D. [address] [place] [phone] PCP - General Internal Medicine 11/23/17 documented as of this encounter
--- OUTSIDE RECORDS SUMMARY | 2023-05-11 02:09 | XMS_ITS | Encounter Summary ---
Author Name Unknown Organization [facility] Address [address] [place] [address] Care Team Providers Care It Systems Analyst Consultant Name Role Phone Clover Delaney M.D. Primary Care Provider [phone]- [phone] Encounter Details Date Type Department Care Team (Latest Contact Info) Description 04/21/2023 12:33 PM LAWN CARE SPECIALIST - 04/21/2023 11:59 PM LAWN CARE SPECIALIST Hospital Encounter Department of Laboratory Medicine in [address] [phone] Clover Delaney M.D. [address] [place] [phone] Chronic Kidney Disease (CKD), Stage 3b Glomerular [...] often do you attend chur ch or quaker services? Never 07/28/2022 Do you belong to [...] Answer Date Recorded PHQ-2 Score 0 06/06/2022 [facility] [place] of Occupat ional Health - Occupational Stress [...] Sex Assigned at Male 05/13/2021 10:11 AM LAWN CARE SPECIALIST Gender Identity Male 11/02/2017 7:22 PM [...] 04/06/2024 flash glucose scanning reader (FREESTYLE BRIONNA) miscIndications:Diabete [...] mouth as needed. 0 miscellaneous medical supply [facility] [place] Supp[place] See Instructions, CPAP machine, mask 1 ea x 4 refills, headgear 1 ea x 2 refills, tubing 1 ea x 4 refills, filters 2 ea per month, tub 1 ea x 2 refills, mask seal 1 ea x 2 refills DX G47.33, length of need 99, 1 each, 0 Refill(s) 0 10/20/2016 miscellaneous medical supply [facility] Head Gear for CPAP Machine See Instructions, fax to patient at [phone], 1 each 0 01/17/2014 MULTIVITAMIN ORAL Daily Multiple Vitamins See Instructions, Take 1 tablet by mouth daily. 0 07/23/2013 multivitamin-eye (PRESERVISION LUTEIN) 226 mg-90 mg-5 mg-0.8 mg capsule Take 2 capsules by mouth daily. 0 ONETOUCH DELICA LANCETS 33 gauge [facility] 3 08/02/2018 OneTouch Ultra Test stripsIndications:Diabe daquan Mellitus Type 2 (HCC) Use to test once daily 100 strip 3 12/31/2021 polyethylene glycol-electrolytes (GoLYTELY) 236-22.74-6.74 -5.86 gram solutionIndications:Can [...] inject insulin daily 100 each 3 03/31/2022 pen needle, diabetic (UltiCare Pen Needle) 32 gauge x 1/4 needle 1 Injection daily. 100 each 3 04/07/2022 05/08/2023 documented as of this encounter Plan of Treatment Upcoming Encounters Date Type Department Care Team (Latest Contact Info) Description 05/28/2023 10:00 AM LAWN CARE SPECIALIST Appointment Department of Laboratory Medicine in [place], [place] [address] [place] [address] [phone] Mónica Portillo APRN, C.N.P., M.S. [address] [place] [phone] 05/28/2023 10:10 AM LAWN CARE SPECIALIST Appointment Department of Laboratory Medicine in [place], [place] [address] [place] [phone] Mónica Portillo APRN, C.N.P., M.S. [address] [place] [phone] 05/29/2023 8:00 AM LAWN CARE SPECIALIST Office Visit Department of Community Internal Medicine in [place], [place] [address] [place] [address] [phone] Clover Delaney M.D. [address] [place] [phone] Discharge Disposition: Home or Self Care 05/29/2023 10:15 AM LAWN CARE SPECIALIST Appointment Department of Radiology, [facility], in [place], [place] [address] [place] [phone] Mónica Portillo APRN, C.N.P., M.S. [address] [place] [phone] 05/29/2023 1:00 PM LAWN CARE SPECIALIST Procedure visit Department of Urology in [place], [place] [address] [place] [phone] Mónica Portillo APRN, Kassandra.N.P., M.S. [address] [place] [phone] 05/29/2023 3:00 PM LAWN CARE SPECIALIST Education Division of Nephrology and Hypertension in [place], [place] [address] [place] [phone] Mónica Portillo APRN, Kassandra.N.P., M.S. [address] [place] [phone] Sandeep Galicia R.N. [address] [place] [phone] 05/29/2023 4:00 PM LAWN CARE SPECIALIST Comprehensive Visit Division of Nephrology and Hypertension in [place], [place] [address] [place] [phone] Sera Casiano M.D., Ph.D. [address] [place] [phone] 06/15/2023 2:00 PM LAWN CARE SPECIALIST Ancillary Procedure Department of Ophthalmology in [place], [place] [address] [place] [phone] Justin Bunch M.D. [address] [place] [phone] 06/15/2023 2:30 PM LAWN CARE SPECIALIST Ancillary Procedure Department of Ophthalmology in [place], [place] [address] [place] [phone] Justin Bunch M.D. [address] [place] [phone] 06/15/2023 2:45 PM LAWN CARE SPECIALIST Office Visit Department of Ophthalmology in [place], [place] [address] [place] [phone] Justin Bunch M.D. 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 LAB BLOOD ADD-ON [facility] [address] [place] [address] [facility] [address] 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 [address] [place] [phone] PCP - General Internal Medicine 11/23/17 documented as of this encounter
--- OUTSIDE RECORDS SUMMARY | 2023-05-11 02:09 | XMS_ITS ---
Author Name Unknown Organization [facility] Address [address] [place] [address] Care Team Providers Care Installation Engineer Name Role Phone Clover Delaney M.D. 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 Sewell (oncology, [place]), follow up Dr. Sewell 6-12 months with [...] of 03/2020 and determined to be benign ([facility] records). Leukocytosis 01/22/2018 Malignant Neoplasm [...] treatments are documented for this patient in [facility]. Treatments may have been administered in [...] Overview: Added automatically from request for surgery [id number] Hematochezia 11/09/2017 07/01/2018 Overview: Added automatically from request for surgery [id number] Diarrhea 11/09/2017 09/28/2018 Overview: S/P recurrent c diff. Tolerates 1500mg metformin per day. Cancer Colon Family History 01/19/2015 01/06/2020
--- OUTSIDE RECORDS SUMMARY | 2023-05-11 02:09 | XMS_ITS | Encounter Summary ---
Author Name Unknown Organization [facility] Address [address] [place] [address] Care Team Providers Care Television Agent Name Role Phone Clover Delaney M.D. Primary Care Provider +1- [phone] Reason for Referral * Outpatient (Routine) - Closed Specialty Diagnoses / Procedures Referred By Yenny hunter Referred To Contact Diagnoses Cancer Colon Transverse Personal History Procedures Colonoscopy Clover Delaney M.D. [address] [place] [address] [facility] Referral ID Status Reason Start Date Expiration Date Visits Re quested Visits Authorized [id number] Closed 03/09/2023 03/08/2024 1 1 INE QUILT STUFFER Reason for Visit * Outpatient (Routine) - Closed Specialty Diagnoses / Procedures Referred By Yenny hunter Referred To Contact Diagnoses Cancer Colon Transverse Personal History Procedures Colonoscopy Clover Delaney M.D. [address] [place] [address] [facility] Referral ID Status Reason Start Date Expiration Date Visits Re quested Visits Authorized [id number] Closed 03/09/2023 03/08/2024 1 1 Encounter Details Date Type Department Care Team (Latest Contact Info) Description 04/07/2023 1:01 PM MACHINE QUILT STUFFER - 04/07/2023 11:59 PM MACHINE QUILT STUFFER Hospital Encounter Division of Gastroenterology in [place], [place] [address] [place] [address] Clover Delaney M.D. [address] [place] [phone] Cancer Colon Transverse Personal History Discharge Disposition: [...] often do you attend chur ch or sabianism services? Never 07/28/2022 Do you belong to [...] Answer Date Recorded PHQ-2 Score 0 06/06/2022 [facility] of Occupat ional Health [...] Sex Assigned at Male 05/13/2021 10:11 AM MACHINE QUILT STUFFER Gender Identity Male 11/02/2017 7:22 PM CDT Sexual Orientation Straight 11/02/2017 7: 22 PM CDT documented as of this encounter Last Filed Vital Signs Vital Sign Reading Time Taken Comments Blood Pressure 174/83 04/07/2023 2:34 PM MACHINE QUILT STUFFER Pulse 56 04/07/2023 2:34 PM MACHINE QUILT STUFFER Temperature 36.7 ??C (98.1 ??F) 04/07/2023 2:34 PM CS T Respiratory Rate 17 04/07/2023 2:34 PM MACHINE QUILT STUFFER Oxygen Saturation 96% 04/07/2023 2:34 PM MACHINE QUILT STUFFER Inhaled Oxygen Concentration - - Weight - - Height 177.8 cm (5' 10) 04/07/2023 1:19 PM MACHINE QUILT STUFFER Body Mass Index - - documented in [...] as needed. 0 miscellaneous medical supply [facility] CPAP Supplies See Instructions, CPAP machine, mask 1 ea x 4 refills, headgear 1 ea x 2 refills, tubing 1 ea x 4 refills, filters 2 ea per month, tub 1 ea x 2 refills, mask seal 1 ea x 2 refills DX G47.33, length of need 99, 1 each, 0 Refill(s) 0 10/20/2016 miscellaneous medical supply [facility] Head Gear for CPAP Machine See Instructions, fax to patient at [phone], 1 each 0 01/17/2014 MULTIVITAMIN ORAL Daily Multiple Vitamins See Instructions, Take 1 tablet by mouth daily. 0 07/23/2013 multivitamin-eye (PRESERVISION LUTEIN) 226 mg-90 mg-5 mg-0.8 mg capsule Take 2 capsules by mouth daily. 0 ONETOUCH DELICA LANCETS [facility] 08/02/2018 OneTouch Ultra Test stripsIndications:Diabe daquan [...] (Latest Contact Info) Description 05/28/2023 10:00 AM MACHINE QUILT STUFFER Appointment Department of Laboratory Medicine in [place] [address] [place] [address] Mónica Portillo APRN, C.N.P., M.S. [address] [place] [phone] 05/28/2023 10:10 AM MACHINE QUILT STUFFER Appointment Department of Laboratory Medicine in [place], [place] [address] [place] [address] Mónica Portillo APRN, Kassandra.N.P., M.S. [address] [place] [phone] 05/29/2023 8:00 AM MACHINE QUILT STUFFER Office Visit Department of Community Internal Medicine in [place] [address] [place] [address] Clover Delaney M.D. [address] [place] [phone] Discharge Disposition: Home or Self Care 05/29/2023 10:15 AM MACHINE QUILT STUFFER Appointment Department of Radiology, [facility], in [place], [place] [address] [place] [address] Mónica Portillo APRN, C.N.P., M.S. [address] [place] [phone] 05/29/2023 1:00 PM MACHINE QUILT STUFFER Procedure visit Department of Urology in [place], [place] [address] [place] [phone] Mónica Portillo APRN, C.N.P., M.S. [address] [place] [phone] 05/29/2023 3:00 PM MACHINE QUILT STUFFER Education Division of Nephrology and Hypertension in [place], [place] [address] [place] [phone] Mónica Portillo APRN, C.NTaylor., M.S. [address] [place] [phone] Sandeep Galicia R.N. [address] [place] [phone] 05/29/2023 4:00 PM MACHINE QUILT STUFFER Comprehensive Visit Division of Nephrology and Hypertension in [place], [place] [address] [place] [phone] Sera Casiano M.D., Ph.D. [address] [place] [phone] 06/15/2023 2:00 PM MACHINE QUILT STUFFER Ancillary Procedure Department of Ophthalmology in [place], [place] [address] [place] [phone] Justin Bunch M.D. [address] [place] [phone] 06/15/2023 2:30 PM MACHINE QUILT STUFFER Ancillary Procedure Department of Ophthalmology in [place], [place] [address] [place] [phone] Justin Bunch M.D. [address] [place] [phone] 06/15/2023 2:45 PM MACHINE QUILT STUFFER Office Visit Department of Ophthalmology in [place], [place] [address] [place] [phone] Justin Bunch M.D. [address] [place] [address] [place] [address] Scheduled Orders Name Type Priority Associated Diagnoses Orde r Schedule Glucose, POCT Point of Care Testing-Docked Device Routine Cancer Colon Transverse Personal History Routine lab collection (next collection) for 1 Occurrences starting 04/07/2023 until 04/07/2023 documented as of this encounter Procedures Procedure Name Priority Date/Time Associated Diagnosis Comments SURGICAL PATHOLOGY Routine 04/07/2023 2: 10 PM MACHINE QUILT STUFFER COLONOSCOPY Routine 04/07/2023 1:48 PM MACHINE QUILT STUFFER Cancer Colon Transverse Personal History COLONOSCOPY Routine 04/07/2023 1:48 PM MACHINE QUILT STUFFER Cancer Colon Transverse Personal History GLUCOSE POCT, B Routine 04/07/2023 1:28 PM MACHINE QUILT STUFFER documented in this encounter Results * Surgical Pathology (04/07/2023 2:10 PM MACHINE QUILT STUFFER) 04/08/2023 3:39 PM MACHINE QUILT STUFFER DTL Report electronically signed by Jayce Rogers M.D. I verify that I have examined all relevant slides/materials for the specimen(s) and rendered or confirmed the diagnosis. 04/08/2023 3:39 PM MACHINE QUILT STUFFER DTL Gross Description Received in formalin labeled with the patient's name, medical record number, and colon-cecum, descending colon, sigmoid are eightpale ventura-pink irregular soft tissues, ranging from 0.3-1.1 cm in greatest dimension. The largest fragment is bisected and submittedentirely in cassette A1 with the remaining fragments. ??Grossed by AJB. 04/08/2023 3:39 PM MACHINE QUILT STUFFER DTL Interpretation FINAL DIAGNOSIS A. Colon, cecum, descending, sigmoid, endoscopic biopsy: Tubular adenoma, low-grade dysplasia. 04/08/2023 3:39 PM MACHINE QUILT STUFFER DTL Polyp (Colon) 04/07/2023 2:1 0 PM MACHINE QUILT STUFFER Wilfred Lott M.D. LAB SURG PATH ORD ERABLES [facility] [address] [place] [address], [facility] DT [address] [place] [address] * Colonoscopy (04/07/2023 1:48 PM MACHINE QUILT STUFFER) 04/07/2023 1:48 PM MACHINE QUILT STUFFER Impressions [employer] - 04/07/2023 2:47 PM MACHINE QUILT STUFFER Post-op Diagnoses: ? - Diverticulosis in the sigmoid colon. ? - Patent end-to-end colo-colonic anastomosis, characterized by healthy ? appearing mucosa. ? - Three 3 to 4 mm polyps in the sigmoid colon, in the descending colon ? and in the cecum, removed with a cold snare. Resected and retrieved. ? - The examination was otherwise normal on direct and retroflexion views. Narrative [employer] - 04/07/2023 2:47 PM MACHINE QUILT STUFFER Gonda 9 GI GI Patient Name: Philip [...] ? preparation and pertinent family history. For [facility] providers, ? detailed recommendations are available as an AskMayoExpert Care Process ? Model: <[email or web address] ? There may be some circumstances, specifically [...] preparation was ? evaluated using the BBPS ([place] Bowel Preparation Scale) with scores ? of: [...] Clover Delaney M.D. GI PROCEDURE ORDERA BLES [employer] NA * Glucose, POCT (04/07/2023 1:28 PM MACHINE QUILT STUFFER) Glucose, POCT, B 134 70 - 140 mg/dL 04/07/2023 1:31 PM MACHINE QUILT STUFFER PCMO Site Capillary 04/07/2023 1:31 PM MACHINE QUILT STUFFER PCMO Blood 04/07/2023 1:28 PM MACHINE QUILT STUFFER 04/07/2023 1:31 PM MACHINE QUILT STUFFER Unknown Provider LAB POCT ORDERABLES- MANUAL POC [facility] [address] [place] [address], [facility] POC [address] [place] [address] documented in this encounter Visit Diagnoses Diagnosis Cancer Colon Transverse Personal History documented in this encounter Administered Medications Inactive Administered Medications - up to 3 most recent administrations Medication Order MAR Action Action Date Dose Rate Site simethicone drops (MYLICON) As needed, Starting on Tu04/07/23 at 1408, Intra-Op Given 04/07/2023 2:08 PM MACHINE QUILT STUFFER 1 mg Colon documented in this encounter Additional Health Concerns Assessment Noted Time PHQ-9 Depression Total Score: 4 06/06/19 2:04 PM MACHINE QUILT STUFFER documented as of this encounter Care Teams Television Agent Relationship Specialty Start Date End Date Clover Delaney M.D. [address] [place] [phone] PCP - General Internal Medicine 11/23/17 documented as of this encounter
--- OUTSIDE RECORDS SUMMARY | 2023-05-11 02:09 | XMS_ITS | Encounter Summary ---
Author Name Unknown Organization [facility] Address [address] [place] [address] Care Team Providers Care Building Services Engineer Name Role Phone Clover Delaney M.D. Primary Care Provider [phone]- [phone] Encounter Details Date Type Department Care Team (Latest Contact Info) Description 05/05/2023 Intake [facility] Social History Tobacco Use Types Packs/Day Years [...] any clubs o r organizations such as anglican groups, unions, fraternal or athletic groups, or [...] Answer Date Recorded PHQ-2 Score 0 06/06/2022 [facility] of Occupat ional Health - Occupational [...] Sex Assigned at Male 05/13/2021 10:11 AM EVALUATION ANALYST Gender Identity Male 11/02/2017 7:22 PM CDT Sexual Orientation Straight 11/02/2017 7: 22 PM CDT documented as of this encounter Progress Notes * Trice Ordaz M.D., Ph.D. - 05/05/2023 1:56 PM CST Was called about this patient as documented in the ER note from today. 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 He was recently noted to have worsening proteinuria. There is a plan in place for an ultrasound and follow-up with Dr. North. The patient also receives ongoing CKD care from TRIXIE Portillo. The patient was noted to have worsening lower extremity edema with a negative evaluation in the ER.His creatinine was up to 4.9 but his other electrolytes were stable. He would stopped amlodipine because of worsening edema. I asked him to increase his torsemide from 30 mg daily to 60 mg daily. I will let Dr. North and TRIXIE Portillo know of his ED visit, and let him decide if he should be seen sooner than 05/29/23. UATION ANALYST documented in this encounter Plan of Treatment Upcoming Encounters Date Type Department Care Team (Latest Contact Info) Description 05/28/2023 10:00 AM EVALUATION ANALYST Appointment Department of Laboratory Medicine in [place] [address] [place] [address] Mónica Portillo APRN, C.N.P., M.S. [address] [place] [phone] 05/28/2023 10:10 AM EVALUATION ANALYST Appointment Department of Laboratory Medicine in [place] [address] [place] [address] Mónica Portillo APRN, C.N.P., M.S. [address] [place] [phone] 05/29/2023 8:00 AM EVALUATION ANALYST Office Visit Department of Community Internal Medicine in [place] [address] [place] [phone] Clover Delaney M.D. [address] [place] [phone] Discharge Disposition: Home or Self Care 05/29/2023 10:15 AM EVALUATION ANALYST Appointment Department of Radiology, [facility] in [place], [place] [address] [place] [phone] Mónica Portillo APRN, C.N.P., M.S. [address] [place] [phone] 05/29/2023 1:00 PM EVALUATION ANALYST Procedure visit Department of Urology in [place], [place] [address] [place] [phone] Mónica Portillo APRN, C.N.Allie., M.S. [address] [place] [phone] 05/29/2023 3:00 PM EVALUATION ANALYST Education Division of Nephrology and Hypertension in [place], [place] [address] [place] [phone] Mónica Portillo APRN, C.NTaylor., M.S. [address] [place] [phone] Sandeep Galicia R.N. [address] [place] [phone] 05/29/2023 4:00 PM EVALUATION ANALYST Comprehensive Visit Division of Nephrology and Hypertension in [place], [place] [address] [place] [phone] Sera Casiano M.D., Ph.D. [address] [place] [phone] 06/15/2023 2:00 PM EVALUATION ANALYST Ancillary Procedure Department of Ophthalmology in [place], [place] [address] [place] [phone] Justin Bunch M.D. [address] [place] [phone] 06/15/2023 2:30 PM EVALUATION ANALYST Ancillary Procedure Department of Ophthalmology in [place], [place] [address] [place] [phone] Justin Bunch M.D. [address] [place] [phone] 06/15/2023 2:45 PM EVALUATION ANALYST Office Visit Department of Ophthalmology in [place], [place] [address] [place] [address] Justin Bunch M.D. [address] [place] [phone] documented as of this encounter Visit Diagnoses Not on filedocumented in this encounter Additional Health Concerns Assessment Noted Time PHQ-9 Depression Total Score: 4 06/06/19 23 2:04 PM EVALUATION ANALYST documented as of this encounter Care Teams Building Services Engineer Relationship Specialty Start Date End Date Clover Delaney M.D. [address] [place] [phone] PCP - General Internal Medicine 11/23/17 documented as of this encounter
--- OUTSIDE RECORDS SUMMARY | 2023-05-11 02:09 | XMS_ITS | Encounter Summary ---
Author Name Unknown Organization [facility] Address [address] [place] [address] Care Team Providers Care Pilot Plant Supervisor Name Role Phone Clover Delaney M.D. Primary Care Provider +1- [phone] Encounter Details Date Type Department Care Team (Late st Contact Info) Description 04/17/2023 Orders Only Department of Community Internal Medicine in [place], [place] [address] [place] [address] [place] [phone] Clover Delaney M.D. [address] [place] [phone] Social History Tobacco Use Types [...] often do you attend chur ch or adventism services? Never 07/28/2022 Do you belong to [...] Date Recorded PHQ-2 Score 0 06/06/2022 [facility] of Occupat ional Health [...] Sex Assigned at Male 05/13/2021 10:11 AM CASEWORKER Gender Identity Male 11/02/2017 7:22 PM CDT Sexual Orientation Straight 11/02/2017 7: 22 PM CDT documented as of this encounter Plan of Treatment Upcoming Encounters Date Type Department Care Team (Latest Contact Info) Description 05/28/2023 10:00 AM CASEWORKER Appointment Department of Laboratory Medicine in [place] [address] [place] [address] Mónica Portillo APRN, C.N.P., M.S. [address] [place] [phone] 05/28/2023 10:10 AM CASEWORKER Appointment Department of Laboratory Medicine in [place] [address] [place] [phone] Mónica Portillo APRN, Kassandra.N.P., M.S. [address] [place] [phone] 05/29/2023 8:00 AM CASEWORKER Office Visit Department of Community Internal Medicine in [place] [address] [place] [address] Clover Delaney M.D. [address] [place] [phone] Discharge Disposition: Home or Self Care 05/29/2023 10:15 AM CASEWORKER Appointment Department of Radiology, [facility], in [place], [place] [address] [place] [phone] Mónica Portillo APRN, C.N.P., M.S. [address] [place] [phone] 05/29/2023 1:00 PM CASEWORKER Procedure visit Department of Urology in [place], [place] [address] [place] [phone] Mónica Portillo APRN, Kassandra.N.P., M.S. [address] [place] [phone] 05/29/2023 3:00 PM CASEWORKER Education Division of Nephrology and Hypertension in [place], [place] [address] [place] [phone] Mónica Portillo APRN, DrewNJosé LuisP., M.S. [address] [place] [phone] Sandeep Galicia R.N. [address] [place] [phone] 05/29/2023 4:00 PM CASEWORKER Comprehensive Visit Division of Nephrology and Hypertension in [place], [place] [address] [place] [phone] Sera Casiano M.D., Ph.D. [address] [place] [phone] 06/15/2023 2:00 PM CASEWORKER Ancillary Procedure Department of Ophthalmology in [place], [place] [address] [place] [phone] Justin Bunch M.D. [address] [place] [phone] 06/15/2023 2:30 PM CASEWORKER Ancillary Procedure Department of Ophthalmology in [address] [phone] Justin Bunch M.D. [address] [place] [phone] 06/15/2023 2:45 PM CASEWORKER Office Visit Department of Ophthalmology in [address] [phone] Justin Bunch M.D. [address] [place] [phone] documented as of this encounter Visit Diagnoses Not on filedocumented in this encounter Additional Health Concerns Assessment Noted Time PHQ-9 Depression Total Score: 4 06/06/19 23 2:04 PM CASEWORKER documented as of this encounter Care Teams Pilot Plant Supervisor Relationship Specialty Start Date End Date Clover Delaney M.D. [address] [place] [phone] PCP - General Internal Medicine 11/23/17 documented as of this encounter
--- OUTSIDE RECORDS SUMMARY | 2023-05-11 02:09 | XMS_ITS | Encounter Summary ---
Author Name Unknown Organization [facility] Address [address] [place] [address] Care Team Providers Care Machine Wedger Name Role Phone Clover Delaney M.D. Primary Care Provider +1- [phone] Reason for Visit * Reason Comments Med Refill Encounter Details Date Type Department Care Team (Late st Contact Info) Description 05/05/2023 Refill Department of Community Internal Medicine in [address] [place] [phone] Clover Delaney M.D. [address] [place] [phone] Med Refill Social History Tobacco [...] Answer Date Recorded PHQ-2 Score 0 06/06/2022 [facility] of Occupat ional Health - [...] Sex Assigned at Male 05/13/2021 10:11 AM MAINTENANCE SUPERINTENDENT Gender Identity Male 11/02/2017 7:22 PM CDT Sexual Orientation Straight 11/02/2017 7: 22 PM CDT documented as of this encounter Miscellaneous Notes * Telephone Encounter - Phuong Peres - 05/06/2023 8:08 AM CST Lab Results Component Value Date HGBA1C 6.8 (H) 03/30/2023 TENANCE SUPERINTENDENT documented in this encounter Plan of Treatment Upcoming Encounters Date Type Department Care Team (Latest Contact Info) Description 05/28/2023 10:00 AM MAINTENANCE SUPERINTENDENT Appointment Department of Laboratory Medicine in [place] [address] [place] [phone] Mónica Portillo APRN, C.N.P., M.S. [address] [place] [phone] 05/28/2023 10:10 AM MAINTENANCE SUPERINTENDENT Appointment Department of Laboratory Medicine in [place] [address] [place] [phone] Mónica Portillo APRN, C.N.P., M.S. [address] [place] [phone] 05/29/2023 8:00 AM MAINTENANCE SUPERINTENDENT Office Visit Department of Community Internal Medicine in [place] [address] [place] [phone] Clover Delaney M.D. [address] [place] [phone] Discharge Disposition: Home or Self Care 05/29/2023 10:15 AM MAINTENANCE SUPERINTENDENT Appointment Department of Radiology, [facility] in [place], [place] [address] [place] [phone] Mónica Portillo APRN, C.N.P., M.S. [address] [place] [phone] 05/29/2023 1:00 PM MAINTENANCE SUPERINTENDENT Procedure visit Department of Urology in [place], [place] [address] [place] [phone] Mónica Portillo APRN, C.NJosé LuisP., M.S. [address] [place] [phone] 05/29/2023 3:00 PM MAINTENANCE SUPERINTENDENT Education Division of Nephrology and Hypertension in [place], [place] [address] [place] [phone] Mónica Portillo APRN, C.N.Allie., M.S. [address] [place] [phone] Sandeep Galicia R.N. [address] [place] [phone] 05/29/2023 4:00 PM MAINTENANCE SUPERINTENDENT Comprehensive Visit Division of Nephrology and Hypertension in [place], [place] [address] [place] [phone] Sera Casiano M.D., Ph.D. [address] [place] [phone] 06/15/2023 2:00 PM MAINTENANCE SUPERINTENDENT Ancillary Procedure Department of Ophthalmology in [address] [phone] Justin Bunch M.D. [address] [place] [phone] 06/15/2023 2:30 PM MAINTENANCE SUPERINTENDENT Ancillary Procedure Department of Ophthalmology in [place], [place] [address] [place] [phone] Justin Bunch M.D. [address] [place] [phone] 06/15/2023 2:45 PM MAINTENANCE SUPERINTENDENT Office Visit Department of Ophthalmology in [place], [place] [address] [place] [address] Justin Bunch M.D. [address] [place] [phone] documented as of this encounter Visit Diagnoses Not on filedocumented in this encounter Additional Health Concerns Assessment Noted Time PHQ-9 Depression Total Score: 4 06/06/19 23 2:04 PM MAINTENANCE SUPERINTENDENT documented as of this encounter Care Teams Machine Wedger Relationship Specialty Start Date End Date Clover Delaney M.D. [address] [place] [phone] PCP - General Internal Medicine 11/23/17 documented as of this encounter
--- OUTSIDE RECORDS SUMMARY | 2023-05-11 02:09 | XMS_ITS | Encounter Summary ---
Author Name Unknown Organization [facility] Address [address] [place] [address] Care Team Providers Care Surgical Technology Instructor Name Role Phone Clover Delaney M.D. Primary Care Provider +1- [phone] Encounter Details Date Type Department Care Team (Latest Contact Info) Description 04/07/2023 1:50 PM COMMUNICATION MANAGER Ancillary Procedure Department of Gastroenterology Social History [...] PHQ-2 Score 0 06/06/2022 [facility] - Occupational Stress Questionnaire Answer Date Recorded [...] Sex Assigned at Male 05/13/2021 10:11 AM COMMUNICATION MANAGER Gender Identity Male 11/02/2017 7:22 PM CDT Sexual Orientation Straight 11/02/2017 7: 22 PM CDT documented as of this encounter Plan of Treatment Upcoming Encounters Date Type Department Care Team (Latest Contact Info) Description 05/28/2023 10:00 AM COMMUNICATION MANAGER Appointment Department of Laboratory Medicine in [address] [place] [address] Mónica Portillo, TRIXIE, C.N.P., M.S. [address] [place] [phone] 05/28/2023 10:10 AM COMMUNICATION MANAGER Appointment Department of Laboratory Medicine in [place], [place] [address] [place] [address] Mónica Portillo APRN, C.N.P., M.S. [address] [place] [phone] 05/29/2023 8:00 AM COMMUNICATION MANAGER Office Visit Department of Community Internal Medicine in [place], [place] [address] [place] [phone] Clover Delaney M.D. [address] [place] [phone] Discharge Disposition: Home or Self Care 05/29/2023 10:15 AM COMMUNICATION MANAGER Appointment Department of Radiology, [facility] in [place], [place] [address] [place] [address] Mónica Portillo APRN, C.N.P., M.S. [address] [place] [phone] 05/29/2023 1:00 PM COMMUNICATION MANAGER Procedure visit Department of Urology in [place], [place] [address] [place] [phone] Mónica Portillo APRN, C.N.P., M.S. [address] [place] [phone] 05/29/2023 3:00 PM COMMUNICATION MANAGER Education Division of Nephrology and Hypertension in [place], [place] [address] [place] [phone] Mónica Portillo APRN, C.N.P., M.S. [address] [place] [phone] Sandeep Galicia R.N. [address] [place] [phone] 05/29/2023 4:00 PM COMMUNICATION MANAGER Comprehensive Visit Division of Nephrology and Hypertension in [place], [place] [address] [place] [phone] Sera Casiano M.D., Ph.D. [address] [place] [phone] 06/15/2023 2:00 PM COMMUNICATION MANAGER Ancillary Procedure Department of Ophthalmology in [place], [place] [address] [place] [phone] Justin Bunch M.D. [address] [place] [phone] 06/15/2023 2:30 PM COMMUNICATION MANAGER Ancillary Procedure Department of Ophthalmology in [place], [place] [address] [place] [phone] Justin Bunch M.D. [address] [place] [phone] 06/15/2023 2:45 PM COMMUNICATION MANAGER Office Visit Department of Ophthalmology in [place], [place] [address] [place] [phone] Justin Bunch M.D. [address] [place] [phone] documented as of this encounter Procedures Procedure Name Priority Date/Time Associated Diagnosis Comments GASTROENTEROLOGY IMAGE EXAM Routine 04/07/2023 1:50 PM COMMUNICATION MANAGER documented in this encounter Results * Colonoscopy-Gastroenterology Image Exam (04/07/2023 1:50 PM COMMUNICATION MANAGER) 04/07/2023 1:48 PM COMMUNICATION MANAGER Narrative IIMS - 04/07/2023 2:54 PM COMMUNICATION MANAGER This order has been created and auto-finalized [...] Total Score: 4 06/06/19 23 2:04 PM COMMUNICATION MANAGER documented as of this encounter Care Teams Surgical Technology Instructor Relationship Specialty Start Date End Date Clover Delaney M.D. [address] [place] [phone] PCP - General Internal Medicine 11/23/17 documented as of this encounter
--- OUTSIDE RECORDS SUMMARY | 2023-05-11 02:10 | XMS_ITS | Encounter Summary ---
Author Name Unknown Organization [facility] [place] Address [address] [place] [address] Care Team Providers Care Bar Supervisor Name Role Phone Clover Delaney M.D. Primary Care Provider +1- [phone] Reason for Visit * Reason Comments Injection Visit Aranesp * Episode Based Medications (Routine) - Pending Review Specialty Diagnoses / Procedures Referred By Yenny t Referred To Contact Diagnoses Malignant Neoplasm Of Transverse Colon (HCC) Anemia Of Chronic Renal Disease Procedures NV DARBEPOETIN KERRI, NON-ESRD NV DARBEPOETIN KERRI, ESRD USE Mónica Portillo APRN, C.N.P., M.S. [address] [place] [phone] [facility] Region Referral ID Status Reason Start Date Expiration Date V isits Requested Visits Authorized [id number] Pending Review 09/03/2022 09/03/2023 12 12 Encounter Details Date Type Department Care Team (Late st Contact Info) Description 03/30/2023 2:00 PM ENGLISH PROFESSOR Infusion Department of Infusion Therapy in [address] [phone] Mónica Portillo APRN, C.N.P., M.S. [address] [place] [phone] Anemia Of Chronic Renal Disease (Primary Dx) [...] often do you attend chur ch or taoist services? Never 07/28/2022 Do you belong to [...] Answer Date Recorded PHQ-2 Score 0 06/06/2022 [facility] of Occupat ional Health - [...] Sex Assigned at Male 05/13/2021 10:11 AM ENGLISH PROFESSOR Gender Identity Male 11/02/2017 7:22 PM CDT Sexual Orientation Straight 11/02/2017 7: 22 PM CDT documented as of this encounter Last Filed Vital Signs Vital Sign Reading Time Taken Comments Blood Pressure 210/90 03/30/2023 1:00 PM ENGLISH PROFESSOR Pulse - - Temperature - - Respiratory [...] end of the week. Pt verbalized understanding. ISH PROFESSOR documented in this encounter Plan of Treatment Upcoming Encounters Date Type Department Care Team (Latest Contact Info) Description 05/28/2023 10:00 AM ENGLISH PROFESSOR Appointment Department of Laboratory Medicine in [address] [place] [address] Mónica Portillo APRN, C.N.P., M.S. [address] [place] [address] 05/28/2023 10:10 AM ENGLISH PROFESSOR Appointment Department of Laboratory Medicine in [place], [place] [address] [place] [phone] Mónica Portillo APRN, C.N.P., M.S. [address] [place] [phone] 05/29/2023 8:00 AM ENGLISH PROFESSOR Office Visit Department of Community Internal Medicine in [place], [place] [address] [place] [phone] Clover Delaney M.D. [address] [place] [phone] Discharge Disposition: Home or Self Care 05/29/2023 10:15 AM ENGLISH PROFESSOR Appointment Department of Radiology, [facility] in [place], [place] [address] [place] [phone] Mónica Portillo APRN, C.N.P., M.S. [address] [place] [phone] 05/29/2023 1:00 PM ENGLISH PROFESSOR Procedure visit Department of Urology in [place], [place] [address] [place] [phone] Mónica Portillo APRN, C.N.P., M.S. [address] [place] [phone] 05/29/2023 3:00 PM ENGLISH PROFESSOR Education Division of Nephrology and Hypertension in [place], [place] [address] [place] [phone] Mónica Portillo APRN, C.N.P., M.S. [address] [place] [phone] Sandeep Galicia R.N. [address] [place] [phone] 05/29/2023 4:00 PM ENGLISH PROFESSOR Comprehensive Visit Division of Nephrology and Hypertension in [place], [place] [address] [place] [phone] Sera Casiano M.D., Ph.D. [address] [place] [phone] 06/15/2023 2:00 PM ENGLISH PROFESSOR Ancillary Procedure Department of Ophthalmology in [place], [place] [address] [place] [phone] Justin Bunch M.D. [address] [place] [phone] 06/15/2023 2:30 PM ENGLISH PROFESSOR Ancillary Procedure Department of Ophthalmology in [place], [place] [address] [place] [phone] Justin Bunch M.D. [address] [place] [phone] 06/15/2023 2:45 PM ENGLISH PROFESSOR Office Visit Department of Ophthalmology in [place], [place] [address] [place] [phone] Justin Bunch M.D. [address] [place] [phone] documented as of this encounter Visit Diagnoses [...] chronic kidney disease Given 03/30/2023 1:58 PM ENGLISH PROFESSOR 80 mcg Right Upper Arm (Back) documented in this encounter Additional Health Concerns Assessment Noted Time PHQ-9 Depression Total Score: 4 06/06/19 23 2:04 PM ENGLISH PROFESSOR documented as of this encounter Care Teams Bar Supervisor Relationship Specialty Start Date End Date Clover Delaney M.D. [address] [place] [phone] PCP - General Internal Medicine 11/23/17 documented as of this encounter
--- OUTSIDE RECORDS SUMMARY | 2023-05-11 02:10 | XMS_ITS | Encounter Summary ---
Author Name Unknown Organization [facility] Address [address] [place] [address] Care Team Providers Care Director Of Land Name Role Phone Clover Delaney M.D. Primary Care Provider +1- [phone] Encounter Details Date Type Department Care Team (Latest Contact Info) Description 03/30/2023 12:13 PM [facility] Hospital Encounter Department of Laboratory Medicine in [address] [phone] Mónica Portillo, TRIXIE, C.N.P., M.S. 200 [place] [address] Hypertension And Chronic Kidney Disease Stage 5 [...] Date Recorded PHQ-2 Score 0 06/06/2022 [facility] of Occupat ional Health - Occupational Stress [...] Sex Assigned at Male 05/13/2021 10:11 AM INSIDE BARREL LATHE OPERATOR Gender Identity Male 11/02/2017 7:22 PM [...] 0 Refill(s) 0 10/20/[address] [facility] [place] Gear for CPAP Machine See Instructions, fax to patient at [phone], 1 each 0 01/17/2014 MULTIVITAMIN ORAL Daily Multiple Vitamins See Instructions, Take 1 tablet by mouth daily. 0 07/23/2013 multivitamin-eye (PRESERVISION LUTEIN) 226 mg-90 mg-5 mg-0.8 mg capsule Take 2 capsules by mouth daily. 0 ONETOUCH DELICA LANCETS [address] [facility] 3 08/02/2018 eBureauTouch Ultra Test stripsIndications:Diabe daquan Mellitus Type 2 [...] a day with meals. 0 03/02/2023 04/07/2023 pen needle, diabetic (UltiCare Pen Needle) 32 gauge x 1/4 needle 1 Injection daily. 100 each 3 04/07/2022 05/08/2023 documented as of this encounter Plan of Treatment Upcoming Encounters Date Type Department Care Team (Latest Contact Info) Description 05/28/2023 10:00 AM INSIDE BARREL LATHE OPERATOR Appointment Department of Laboratory Medicine in [place] [address] [place] [address] Mónica Portillo APRN, C.N.P., M.S. [address] [place] [phone] 05/28/2023 10:10 AM INSIDE BARREL LATHE OPERATOR Appointment Department of Laboratory Medicine in [place], [place] [address] [place] [phone] Mónica Portillo APRN, C.N.P., M.S. [address] [place] [phone] 05/29/2023 8:00 AM INSIDE BARREL LATHE OPERATOR Office Visit Department of Community Internal Medicine in [place] [address] [place] [phone] Clover Delaney M.D. [address] [place] [phone] Discharge Disposition: Home or Self Care 05/29/2023 10:15 AM INSIDE BARREL LATHE OPERATOR Appointment Department of Radiology, [facility], in [place], [place] [address] [place] [phone] Mónica Portillo APRN, C.N.P., M.S. [address] [place] [phone] 05/29/2023 1:00 PM INSIDE BARREL LATHE OPERATOR Procedure visit Department of Urology in [place], [place] [address] [place] [address] Mónica Portillo APRN, C.N.P., M.S. [address] [place] [phone] 05/29/2023 3:00 PM INSIDE BARREL LATHE OPERATOR Education Division of Nephrology and Hypertension in [place], [place] [address] [place] [phone] Mónica Portillo APRN, C.N.P., M.S. [address] [place] [phone] Sandeep Galicia R.N. [address] [place] [phone] 05/29/2023 4:00 PM INSIDE BARREL LATHE OPERATOR Comprehensive Visit Division of Nephrology and Hypertension in [place], [place] [address] [place] [phone] Sera Casiano M.D., Ph.D. [address] [place] [phone] 06/15/2023 2:00 PM INSIDE BARREL LATHE OPERATOR Ancillary Procedure Department of Ophthalmology in [place], [place] [address] [place] [phone] Justin Bunch M.D. [address] [place] [phone] 06/15/2023 2:30 PM INSIDE BARREL LATHE OPERATOR Ancillary Procedure Department of Ophthalmology in [place], [place] [address] [place] [phone] Justin Bunch M.D. [address] [place] [phone] 06/15/2023 2:45 PM INSIDE BARREL LATHE OPERATOR Office Visit Department of Ophthalmology in [place], [place] [address] [place] [phone] Justin Bunch M.D. [address] [place] [address] documented as of this encounter Procedures Procedure Name Priority Date/Time Associated Diagnosis Comments ALBUMIN, RANDOM, U Routine 03/30/2023 1: 12 PM INSIDE BARREL LATHE OPERATOR Hypertension And Chronic Kidney Disease Stage 5 (HCC) Anemia Of Chronic Renal Disease URINALYSIS WITH MICROSCOPIC Routine 03/30/2023 1:12 PM INSIDE BARREL LATHE OPERATOR Hypertension And Chronic Kidney Disease Stage 5 (HCC) Anemia Of Chronic Renal Disease documented in this encounter Results * (ABNORMAL) Urinalysis with Microscopic: Urine, Midstream (03/30/2023 1:12 PM INSIDE BARREL LATHE OPERATOR) Source Urine, Urine, Midstream 03/30/2023 1:12 PM INSIDE BARREL LATHE OPERATOR CNFL Clarity Clear Clear 03/30/2023 1:15 PM INSIDE BARREL LATHE OPERATOR CNFL Color Yellow 03/30/2023 1:15 PM INSIDE BARREL LATHE OPERATOR CNFL Comment: ----REFERENCE VALUE---- Colorless Yellow Susana Blood Small(A) Negative 03/30/2023 1:15 PM INSIDE BARREL LATHE OPERATOR CNFL Nitrite Negative Negative 03/30/2023 1:15 PM INSIDE BARREL LATHE OPERATOR CNFL Leukocyte Esterase Negative Negative 03/30/2023 1:15 PM INSIDE BARREL LATHE OPERATOR CNFL Protein >=300(A) mg/dL 03/30/2023 1:15 PM INSIDE BARREL LATHE OPERATOR CNFL Comment: ----REFERENCE VALUE---- Negative Trace Glucose 100(A) Negative mg/dL 03/30/2023 1:15 PM INSIDE BARREL LATHE OPERATOR CNFL Ketones, QI(U) Negative Negative mg/dL 03/30/2023 1:15 PM INSIDE BARREL LATHE OPERATOR CNFL Bilirubin Negative Negative 03/30/2023 1:15 PM INSIDE BARREL LATHE OPERATOR CNFL pH 5.5 5.0 - 8.0 03/30/2023 1:15 PM INSIDE BARREL LATHE OPERATOR CNFL Specific Kake 1.020 1.001 - 1.035 03/30/2023 1:15 PM INSIDE BARREL LATHE OPERATOR CNFL Urobilinogen 0.2 0.2 - 1.0 mg/dL 03/30/2023 1:15 PM INSIDE BARREL LATHE OPERATOR CNFL White Blood Cells Occ-3 /hpf 03/30/2023 1:47 PM INSIDE BARREL LATHE OPERATOR CNFL Comment: ----REFERENCE VALUE---- Males: 0-3 Females: 0-10 Unknown: 0-10 Red Blood Cells 3-10(A) 0 - 2 /hpf 1:47 PM INSIDE BARREL LATHE OPERATOR CNFL Urine (Urine, Midstream) 03/30/2023 1:12 PM INSIDE BARREL LATHE OPERATOR 03/30/2023 1:12 PM INSIDE BARREL LATHE OPERATOR Mónica Portillo APRN, C.N.P., M.S. LAB URINE ORDERABLES Performing Organization Address [facility] de Phone Number [facility] [address] [place] [address], [place] [address] * (ABNORMAL) Albumin, Random, Urine (03/30/2023 1:12 PM INSIDE BARREL LATHE OPERATOR) Microalbumin 2148.9 mg/L 03/30/2023 1:47 PM INSIDE BARREL LATHE OPERATOR CNFL Creatinine 31 mg/dL 03/30/2023 1:26 PM INSIDE BARREL LATHE OPERATOR CNFL Albumin/Creatinin e Ratio 6932(H) <17 mg/g 03/30/2023 1:47 PM INSIDE BARREL LATHE OPERATOR CNFL Urine (Urine, Midstream) 03/30/2023 1:12 PM INSIDE BARREL LATHE OPERATOR 03/30/2023 1:12 PM INSIDE BARREL LATHE OPERATOR Mónica Portillo APRN, C.N.P., M.S. LAB URINE ORDERABLES Performing Organization Address [facility] Co de Phone Number [address] [address], [address] [address] documented in this encounter Visit Diagnoses Diagnosis Hypertension And Chronic Kidney Disease Stage 5 (HCC) Anemia Of Chronic Renal Disease documented in this encounter Additional Health Concerns Assessment Noted Time PHQ-9 Depression Total Score: 4 06/06/19 23 2:04 PM INSIDE BARREL LATHE OPERATOR documented as of this encounter Care Teams Director Of Land Relationship Specialty Start Date End Date Clover Delaney M.D. [address] [place] [phone] PCP - General Internal Medicine 11/23/17 documented as of this encounter
--- OUTSIDE RECORDS SUMMARY | 2023-05-11 02:10 | XMS_ITS | Encounter Summary ---
Author Name Unknown Organization [facility] Address [address] [place] [address] Care Team Providers Care Language Path Name Role Phone Clover Delaney M.D. Primary Care Provider +1- [phone] Encounter Details Date Type Department Care Team (Late st Contact Info) Description 03/30/2023 Orders Only Division of Nephrology and Hypertension in [place], [place] [address] [place] [address] Mónica Portillo, TRIXIE, C.N.P., M.S. [address] [place] [address] Hypertension And Chronic Kidney Disease Stage 5 [...] any clubs o r organizations such as mormonism groups, unions, fraternal or athletic groups, or [...] PHQ-2 Score 0 06/06/2022 [facility] - Occupational Stress Questionnaire [...] Sex Assigned at Male 05/13/2021 10:11 AM SWEAT BOX ATTENDANT Gender Identity Male 11/02/2017 7:22 PM CDT Sexual Orientation Straight 11/02/2017 7: 22 PM CDT documented as of this encounter Plan of Treatment Upcoming Encounters Date Type Department Care Team (Latest Contact Info) Description 05/28/2023 10:00 AM SWEAT BOX ATTENDANT Appointment Department of Laboratory Medicine in [place], [place] [address] [place] [address] Mónica Potrillo APRN, C.N.P., M.S. [address] [place] [phone] 05/28/2023 10:10 AM SWEAT BOX ATTENDANT Appointment Department of Laboratory Medicine in [place], [place] [address] [place] [phone] Mónica Portillo APRN, C.N.P., M.S. [address] [place] [phone] 05/29/2023 8:00 AM SWEAT BOX ATTENDANT Office Visit Department of Community Internal Medicine in [place], [place] [address] [place] [phone] Clover Delaney M.D. [address] [place] [phone] Discharge Disposition: Home or Self Care 05/29/2023 10:15 AM SWEAT BOX ATTENDANT Appointment Department of Radiology, [facility], in [place], [place] [address] [place] [phone] Mónica Portillo APRN, C.N.P., M.S. [address] [place] [phone] 05/29/2023 1:00 PM SWEAT BOX ATTENDANT Procedure visit Department of Urology in [place], [place] [address] [place] [phone] Mónica Portillo APRN, C.N.P., M.S. [address] [place] [phone] 05/29/2023 3:00 PM SWEAT BOX ATTENDANT Education Division of Nephrology and Hypertension in [place], [place] [address] [place] [phone] Mónica Portillo APRN, CJosé LuisN.P., M.S. [address] [place] [phone] Sandeep Galicia R.N. [address] [place] [phone] 05/29/2023 4:00 PM SWEAT BOX ATTENDANT Comprehensive Visit Division of Nephrology and Hypertension in [place], [place] [address] [place] [phone] Sera Casiano M.D., Ph.D. [address] [place] [phone] 06/15/2023 2:00 PM SWEAT BOX ATTENDANT Ancillary Procedure Department of Ophthalmology in [place], [place] [address] [place] [phone] Justin Bunch M.D. [address] [place] [phone] 06/15/2023 2:30 PM SWEAT BOX ATTENDANT Ancillary Procedure Department of Ophthalmology in [address] [phone] Justin Bunch M.D. [address] [place] [phone] 06/15/2023 2:45 PM SWEAT BOX ATTENDANT Office Visit Department of Ophthalmology in [address] [phone] Justin Bunch M.D. [address] [place] [phone] Scheduled Orders Name Type Priority Associated Diagnoses [...] Total Score: 4 06/06/19 23 2:04 PM SWEAT BOX ATTENDANT documented as of this encounter Care Teams Language Path Relationship Specialty Start Date End Date Clover Delaney M.D. [address] [place] [phone] PCP - General Internal Medicine 11/23/17 documented as of this encounter
--- OUTSIDE RECORDS SUMMARY | 2023-05-11 02:10 | XMS_ITS | Encounter Summary ---
Author Name Unknown Organization [facility] Address [address] [place] [address] Care Team Providers Care Catering Barista Name Role Phone Clover Delaney M.D. Primary Care Provider [phone] Reason for Visit * Reason Onset Date Comments Follow-up Orders 03/30/2023 Patient returni ng call to [employer] to [employer]? I do not see any message. Encounter Details Date Type Department Care Team (Latest Contact Info) Description 03/30/2023 Clinical Communication Department of Community Internal Medicine in [address] [place] [phone] Clover Delaney M.D. [address] [place] [phone] Follow-up Orders (Patient returning call to [employer] to [employer]? I do not see any message./ ) [...] any clubs o r organizations such as orthodox groups, unions, fraternal or athletic groups, [...] Answer Date Recorded PHQ-2 Score 0 06/06/2022 [facility] Occupat ional [facility] - Occupational [...] place to sleep or slept in a alf (including now)? No 07/28/2022 Depression Answer Date [...] Sex Assigned at Male 05/13/2021 10:11 AM WELLNESS SPA MANAGER Gender Identity Male 11/02/2017 7:22 PM CDT Sexual Orientation Straight 11/02/2017 7: 22 PM CDT documented as of this encounter Plan of Treatment Upcoming Encounters Date Type Department Care Team (Latest Contact Info) Description 05/28/2023 10:00 AM WELLNESS SPA MANAGER Appointment Department of Laboratory Medicine in [place] [address] [place] [address] Mónica Portillo APRN, C.N.P., M.S. [address] [place] [phone] 05/28/2023 10:10 AM WELLNESS SPA MANAGER Appointment Department of Laboratory Medicine in [place] [address] [place] [address] Mónica Portillo APRN, C.N.P., M.S. [address] [place] [phone] 05/29/2023 8:00 AM WELLNESS SPA MANAGER Office Visit Department of Community Internal Medicine in [place] [address] [place] [address] Clover Delaney M.D. [address] [place] [phone] Discharge Disposition: Home or Self Care 05/29/2023 10:15 AM WELLNESS SPA MANAGER Appointment Department of Radiology, [facility], in [place], [place] [address] [place] [phone] Mónica Portillo APRN, C.N.P., M.S. [address] [place] [phone] 05/29/2023 1:00 PM WELLNESS SPA MANAGER Procedure visit Department of Urology in [place], [place] [address] [place] [phone] Mónica Portillo APRN, Kassandra.N.P., M.S. [address] [place] [phone] 05/29/2023 3:00 PM WELLNESS SPA MANAGER Education Division of Nephrology and Hypertension in [place], [place] [address] [place] [phone] Mónica Portillo APRN, C.N.P., M.S. [address] [place] [phone] Sandeep Galicia R.N. [address] [place] [phone] 05/29/2023 4:00 PM WELLNESS SPA MANAGER Comprehensive Visit Division of Nephrology and Hypertension in [place], [place] [address] [place] [phone] Sera Casiano M.D., Ph.D. [address] [place] [phone] 06/15/2023 2:00 PM WELLNESS SPA MANAGER Ancillary Procedure Department of Ophthalmology in [place], [place] [address] [place] [phone] Justin Bunch M.D. [address] [place] [phone] 06/15/2023 2:30 PM WELLNESS SPA MANAGER Ancillary Procedure Department of Ophthalmology in [place], [place] [address] [place] [phone] Justin Bunch M.D. [address] [place] [phone] 06/15/2023 2:45 PM WELLNESS SPA MANAGER Office Visit Department of Ophthalmology in [place], [place] [address] [place] [phone] Justin Bunch M.D. [address] [place] [phone] documented as of this encounter Visit Diagnoses Not on filedocumented in this encounter Additional Health Concerns Assessment Noted Time PHQ-9 Depression Total Score: 4 06/06/19 23 2:04 PM WELLNESS SPA MANAGER documented as of this encounter Care Teams Catering Barista Relationship Specialty Start Date End Date Clover Delaney M.D. [address] [place] [phone] PCP - General Internal Medicine 11/23/17 documented as of this encounter
--- OUTSIDE RECORDS SUMMARY | 2023-05-11 02:10 | XMS_ITS | Encounter Summary ---
Author Name Unknown Organization [facility] Address [address] [place] [address] Care Team Providers Care Excavating Contractor Name Role Phone Clover Delaney M.D. Primary Care Provider [phone] Reason for Visit * Reason Comments Med Refill Encounter Details Date Type Department Care Team (Late st Contact Info) Description 03/11/2023 Refill Division of Nephrology and Hypertension in [place], [place] [address] [place] [phone] Mónica Portillo, TRIXIE, C.N.P., M.S. [address] [place] [phone] Med Refill Social History Tobacco Use Types [...] any clubs o r organizations such as yarsanism groups, unions, fraternal or athletic groups, or [...] Recorded PHQ-2 Score 0 06/06/2022 [facility] of Occupat ional Health - Occupational Stress [...] Sex Assigned at Male 05/13/2021 10:11 AM METAL SPRAYER PRODUCTION Gender Identity Male 11/02/2017 7:22 PM CDT Sexual Orientation Straight 11/02/2017 7: 22 PM CDT documented as of this encounter Plan of Treatment Upcoming Encounters Date Type Department Care Team (Latest Contact Info) Description 05/28/2023 10:00 AM METAL SPRAYER PRODUCTION Appointment Department of Laboratory Medicine in [place], [place] [address] [place] [address] Mónica Portillo APRN, C.N.P., M.S. [address] [place] [phone] 05/28/2023 10:10 AM METAL SPRAYER PRODUCTION Appointment Department of Laboratory Medicine in [place], [place] [address] [place] [address] Mónica Portillo APRN, C.N.P., M.S. [address] [place] [phone] 05/29/2023 8:00 AM METAL SPRAYER PRODUCTION Office Visit Department of Community Internal Medicine in [place], [place] [address] [place] [address] Clover Delaney M.D. [address] [place] [phone] Discharge Disposition: Home or Self Care 05/29/2023 10:15 AM METAL SPRAYER PRODUCTION Appointment Department of Radiology, [facility], in [place], [place] [address] [place] [phone] Mónica Portillo APRN, C.N.P., M.S. [address] [place] [phone] 05/29/2023 1:00 PM METAL SPRAYER PRODUCTION Procedure visit Department of Urology in [place], [place] [address] [place] [address] Mónica Portillo APRN, C.N.P., M.S. [address] [place] [phone] 05/29/2023 3:00 PM METAL SPRAYER PRODUCTION Education Division of Nephrology and Hypertension in [place], [place] [address] [place] [phone] Mónica Portillo APRN, DrewNJosé LuisP., M.S. [address] [place] [phone] Sandeep Galicia R.N. [address] [place] [phone] 05/29/2023 4:00 PM METAL SPRAYER PRODUCTION Comprehensive Visit Division of Nephrology and Hypertension in [place], [place] [address] [place] [phone] Sera Casiano M.D., Ph.D. [address] [place] [phone] 06/15/2023 2:00 PM METAL SPRAYER PRODUCTION Ancillary Procedure Department of Ophthalmology in [place], [place] [address] [place] [phone] Justin Bunch M.D. [address] [place] [phone] 06/15/2023 2:30 PM METAL SPRAYER PRODUCTION Ancillary Procedure Department of Ophthalmology in [address] [phone] Justin Bunch M.D. [address] [place] [phone] 06/15/2023 2:45 PM METAL SPRAYER PRODUCTION Office Visit Department of Ophthalmology in [address] [phone] Justin Bunch M.D. [address] [place] [phone] documented as of this encounter Visit Diagnoses Not on filedocumented in this encounter Additional Health Concerns Assessment Noted Time PHQ-9 Depression Total Score: 4 06/06/19 23 2:04 PM METAL SPRAYER PRODUCTION documented as of this encounter Care Teams Excavating Contractor Relationship Specialty Start Date End Date Clover Delaney M.D. NPKatlin: [phone] [address] [place] [address] PCP - General Internal Medicine 11/23/17 documented as of this encounter
--- OUTSIDE RECORDS SUMMARY | 2023-05-11 02:10 | XMS_ITS | Encounter Summary ---
Author Name Unknown Organization [facility] Address [address] [place] [address] Care Team Providers Care Front Office Spec Name Role Phone Clover Delaney M.D. Primary Care Provider [phone] Reason for Visit * Reason Comments Blood Pressure Check * Outpatient (Routine) - Authorized Specialty Diagnoses / Procedures Referred By Contanthony t Referred To Contact Family Medicine Mónica Portillo APRN, C.N.P., M.S. [address] [place] [phone] [facility] Region Referral ID Status Reason Start Date Expiration Date V isits Requested Visits Authorized [id number] Authorized 03/02/2023 03/01/2026 1 1 Encounter Details Date Type Department Care Team (Late st Contact Info) Description 03/30/2023 1:00 PM AUTOMATIC CENTRIFUGAL STATION OPERATOR Nurse Only Department of Family Medicine, [facility], in [address] [phone] Mónica Portillo APRN, C.N.P., M.S. [address] [place] [phone] Basilia Santiago L.P.N. [address] [place] [phone] Blood Pressure Check Discharge Disposition: Home [...] How often do you attend chur or zoroastrianism services? Never 07/28/2022 Do you [...] Answer Date Recorded PHQ-2 Score 0 06/06/2022 [facility] of Occupat ional Health - Occupational Stress [...] Sex Assigned at Male 05/13/2021 10:11 AM AUTOMATIC CENTRIFUGAL STATION OPERATOR Gender Identity Male 11/02/2017 7:22 PM CDT Sexual Orientation Straight 11/02/2017 7: 22 PM CDT documented as of this encounter Last Filed Vital Signs Vital Sign Reading Time Taken Comments Blood Pressure 213/82 03/30/2023 12:43 PM AUTOMATIC CENTRIFUGAL STATION OPERATOR Pulse 50 03/30/2023 12:43 PM AUTOMATIC CENTRIFUGAL STATION OPERATOR Temperature - - Respiratory Rate - - Oxygen Saturation - - Inhaled Oxygen Concentration - - Weight - - Height - - Body Mass Index - - documented in this encounter Progress Notes * Basilia Santiago L.P.N. - 03/30/2023 1:00 PM CST Patient was here today in [place] for a blood pressure check and some lab results. He states that his home bp readings have been in the 190's systolically. 1st readin/81 Serial Avg's: 213/82 - 215/82 - 211/84 - 212/81 He is asymptomatic and the provider of the day stated he could go home. Will await your recommendations. He is currently taking his Avapro, 75 mg daily. MATIC CENTRIFUGAL STATION OPERATOR documented in this encounter Plan of Treatment Upcoming Encounters Date Type Department Care Team (Latest Contact Info) Description 05/28/2023 10:00 AM AUTOMATIC CENTRIFUGAL STATION OPERATOR Appointment Department of Laboratory Medicine in [address] [place] [address] Mónica Portillo APRN, C.N.P., M.S. [address] [place] [address] 05/28/2023 10:10 AM AUTOMATIC CENTRIFUGAL STATION OPERATOR Appointment Department of Laboratory Medicine in [place], [place] [address] [place] [address] Mónica Portillo APRN, C.N.P., M.S. [address] [place] [address] 05/29/2023 8:00 AM AUTOMATIC CENTRIFUGAL STATION OPERATOR Office Visit Department of Community Internal Medicine in [place], [place] [address] [place] [phone] Clover Delaney M.D. [address] [place] [phone] Discharge Disposition: Home or Self Care 05/29/2023 10:15 AM AUTOMATIC CENTRIFUGAL STATION OPERATOR Appointment Department of Radiology, [facility] in [place], [place] [address] [place] [address] Mónica Portillo APRN, C.N.P., M.S. [address] [place] [phone] 05/29/2023 1:00 PM AUTOMATIC CENTRIFUGAL STATION OPERATOR Procedure visit Department of Urology in [place], [place] [address] [place] [address] Mónica Portillo APRN, C.N.P., M.S. [address] [place] [phone] 05/29/2023 3:00 PM AUTOMATIC CENTRIFUGAL STATION OPERATOR Education Division of Nephrology and Hypertension in [place], [place] [address] [place] [address] Mónica Portillo APRN, C.N.P., M.S. [address] [place] [phone] Sandeep Galicia R.N. [address] [place] [phone] 05/29/2023 4:00 PM AUTOMATIC CENTRIFUGAL STATION OPERATOR Comprehensive Visit Division of Nephrology and Hypertension in [place], [place] [address] [place] [phone] Sera Casiano M.D., Ph.D. [address] [place] [phone] 06/15/2023 2:00 PM AUTOMATIC CENTRIFUGAL STATION OPERATOR Ancillary Procedure Department of Ophthalmology in [place], [place] [address] [place] [phone] Justin Bunch M.D. [address] [place] [phone] 06/15/2023 2:30 PM AUTOMATIC CENTRIFUGAL STATION OPERATOR Ancillary Procedure Department of Ophthalmology in [place], [place] [address] [place] [phone] Justin Bunch M.D. [address] [place] [phone] 06/15/2023 2:45 PM AUTOMATIC CENTRIFUGAL STATION OPERATOR Office Visit Department of Ophthalmology in [place], [place] [address] [place] [phone] Justin Bunch M.D. [address] [place] [phone] documented as of this encounter Visit Diagnoses Diagnosis Elevated Blood Pressure- Primary documented in this encounter Additional Health Concerns Assessment Noted Time PHQ-9 Depression Total Score: 4 06/06/19 23 2:04 PM AUTOMATIC CENTRIFUGAL STATION OPERATOR documented as of this encounter Care Teams Front Office Spec Relationship Specialty Start Date End Date Clover Delaney M.D. [address] [place] [phone] PCP - General Internal Medicine 11/23/17 documented as of this encounter
--- OUTSIDE RECORDS SUMMARY | 2023-05-11 02:10 | XMS_ITS | Encounter Summary ---
Author Name Unknown Organization [facility] Address [address] [place] [address] Care Team Providers Care Mercury Cracking Tester Name Role Phone Clover Delaney M.D. Primary Care Provider [phone] Reason for Visit * Reason Comments Med Refill Encounter Details Date Type Department Care Team (Late st Contact Info) Description 03/11/2023 Refill Department of Community Internal Medicine in [address] [place] [phone] Clover Delaney M.D. [address] [place] [address] Med Refill Social History Tobacco [...] Sex Assigned at Male 05/13/2021 10:11 AM BALL ROLLING MACHINE OPERATOR Gender Identity Male 11/02/2017 7:22 PM [...] 26 Units under the skin at bedtime. ROLLING MACHINE OPERATOR documented in this encounter Plan of Treatment Upcoming Encounters Date Type Department Care Team (Latest Contact Info) Description 05/28/2023 10:00 AM BALL ROLLING MACHINE OPERATOR Appointment Department of Laboratory Medicine in [place] [address] [place] [phone] Mónica Portillo APRN, C.N.P., M.S. [address] [place] [phone] 05/28/2023 10:10 AM BALL ROLLING MACHINE OPERATOR Appointment Department of Laboratory Medicine in [place] [address] [place] [phone] Mónica Portillo APRN, C.N.P., M.S. [address] [place] [phone] 05/29/2023 8:00 AM BALL ROLLING MACHINE OPERATOR Office Visit Department of Community Internal Medicine in [place] [address] [place] [phone] Clover Delaney M.D. [address] [place] [phone] Discharge Disposition: Home or Self Care 05/29/2023 10:15 AM BALL ROLLING MACHINE OPERATOR Appointment Department of Radiology, [facility], [place] [address] [place] [address] Mónica Portillo APRN, Kassandra.N.P., M.S. [address] [place] [phone] 05/29/2023 1:00 PM BALL ROLLING MACHINE OPERATOR Procedure visit Department of Urology in [place], [place] [address] [place] [phone] Mónica Portillo APRN, C.NTaylor., M.S. [address] [place] [phone] 05/29/2023 3:00 PM BALL ROLLING MACHINE OPERATOR Education Division of Nephrology and Hypertension in [place], [place] [address] [place] [phone] Mónica Portillo APRN, C.N.P., M.S. [address] [place] [phone] Sandeep Galicia R.N. [address] [place] [phone] 05/29/2023 4:00 PM BALL ROLLING MACHINE OPERATOR Comprehensive Visit Division of Nephrology and Hypertension in [place], [place] [address] [place] [phone] Sera Casiano M.D., Ph.D. [address] [place] [phone] 06/15/2023 2:00 PM BALL ROLLING MACHINE OPERATOR Ancillary Procedure Department of Ophthalmology in [place], [place] [address] [place] [phone] Justin Bunch M.D. [address] [place] [phone] 06/15/2023 2:30 PM BALL ROLLING MACHINE OPERATOR Ancillary Procedure Department of Ophthalmology in [place], [place] [address] [place] [phone] Justin Bunch M.D. [address] [place] [address] 06/15/2023 2:45 PM BALL ROLLING MACHINE OPERATOR Office Visit Department of Ophthalmology in [place], [place] [address] [place] [address] Justin Bunch M.D. [address] [place] [phone] documented as of this encounter Visit Diagnoses Diagnosis Diabetes Mellitus Type 2 Hyperglycemia (HCC) documented in this encounter Additional Health Concerns Assessment Noted Time PHQ-9 Depression Total Score: 4 06/06/19 23 2:04 PM BALL ROLLING MACHINE OPERATOR documented as of this encounter Care Teams Mercury Cracking Tester Relationship Specialty Start Date End Date Clover Delaney M.D. [address] [place] [phone] PCP - General Internal Medicine 11/23/17 documented as of this encounter
--- OUTSIDE RECORDS SUMMARY | 2023-05-11 02:10 | XMS_ITS | Encounter Summary ---
Author Name Unknown Organization [facility] Address [address] [place] [address] Care Team Providers Care Project Management Director Name Role Phone Clover Delaney M.D. Primary Care Provider +1- [phone] Encounter Details Date Type Department Care Team (Latest Contact Info) Description 03/30/2023 12:14 PM BASKET HAND BRAIDER - 03/30/2023 11:59 PM BASKET HAND BRAIDER Hospital Encounter Department of Laboratory Medicine in [address] [phone] Mónica Portillo, TRIXIE, C.N.P., M.S. [address] [place] [phone] Hypertension And Chronic Kidney Disease Stage 5 [...] Date Recorded PHQ-2 Score 0 06/06/2022 [facility] [place] of Occupat ional Health - Occupational Stress [...] Sex Assigned at Male 05/13/2021 10:11 AM BASKET HAND BRAIDER Gender Identity Male 11/02/2017 7:22 PM CDT [...] mouth as needed. 0 miscellaneous medical supply [facility] CPAP Supplies See Instructions, CPAP machine, mask 1 ea x 4 refills, headgear 1 ea x 2 refills, tubing 1 ea x 4 refills, filters 2 ea per month, tub 1 ea x 2 refills, mask seal 1 ea x 2 refills DX G47.33, length of need 99, 1 each, 0 Refill(s) 0 10/20/2016 miscellaneous medical supply [facility] Head Gear for CPAP Machine See Instructions, fax to patient at [phone], 1 each 0 01/17/2014 MULTIVITAMIN ORAL Daily Multiple Vitamins See Instructions, Take 1 tablet by mouth daily. 0 07/23/2013 multivitamin-eye (PRESERVISION LUTEIN) 226 mg-90 mg-5 mg-0.8 mg capsule Take 2 capsules by mouth daily. 0 ONETOUCH DELICA LANCETS 33 gauge [facility] 3 08/02/2018 OneTouch Ultra Test stripsIndications:Diabe daquan [...] (Latest Contact Info) Description 05/28/2023 10:00 AM BASKET HAND BRAIDER Appointment Department of Laboratory Medicine in [place], [place] [address] [place] [address] Mónica Portillo APRN, C.N.P., M.S. [address] [place] [phone] 05/28/2023 10:10 AM BASKET HAND BRAIDER Appointment Department of Laboratory Medicine in [place], [place] [address] [place] [address] Mónica Portillo APRN, C.N.P., M.S. [address] [place] [phone] 05/29/2023 8:00 AM BASKET HAND BRAIDER Office Visit Department of Community Internal Medicine in [place], [place] [address] [place] [address] Clover Delaney M.D. [address] [place] [phone] Discharge Disposition: Home or Self Care 05/29/2023 10:15 AM BASKET HAND BRAIDER Appointment Department of Radiology, [facility], in [place], [place] [address] [place] [phone] Mónica Portillo APRN, C.N.P., M.S. [address] [place] [phone] 05/29/2023 1:00 PM BASKET HAND BRAIDER Procedure visit Department of Urology in [place], [place] [address] [place] [phone] Mónica Portillo APRN, C.N.P., M.S. [address] [place] [phone] 05/29/2023 3:00 PM BASKET HAND BRAIDER Education Division of Nephrology and Hypertension in [place], [place] [address] [place] [phone] Mónica Portillo APRN, C.N.Allie., M.S. [address] [place] [phone] Sandeep Galicia R.N. [address] [place] [phone] 05/29/2023 4:00 PM BASKET HAND BRAIDER Comprehensive Visit Division of Nephrology and Hypertension in [place], [place] [address] [place] [phone] Sera Casiano M.D., Ph.D. [address] [place] [phone] 06/15/2023 2:00 PM BASKET HAND BRAIDER Ancillary Procedure Department of Ophthalmology in [place], [place] [address] [place] [phone] Justin Bunch M.D. [address] [place] [phone] 06/15/2023 2:30 PM BASKET HAND BRAIDER Ancillary Procedure Department of Ophthalmology in [place], [place] [address] [place] [phone] Justin Bunch M.D. [address] [place] [phone] 06/15/2023 2:45 PM BASKET HAND BRAIDER Office Visit Department of Ophthalmology in [place], [place] [address] [place] [phone] Justin Bunch M.D. [address] [place] [address] documented as of this encounter Procedures Procedure Name Priority Date/Time Associated Diagnosis Comments RENAL FUNCTION PANEL, S Routine 03/30/2023 12:21 PM BASKET HAND BRAIDER Hypertension And Chronic Kidney Disease Stage 5 (HCC) Anemia Of Chronic Renal Disease CBC WITHOUT DIFFERENTIAL, B Routine 03/30/2023 12:21 PM BASKET HAND BRAIDER Hypertension And Chronic Kidney Disease Stage 5 (HCC) Anemia Of Chronic Renal Disease HEMOGLOBIN A1C, B Routine 03/30/2023 12: 21 PM BASKET HAND BRAIDER Hypertension And Chronic Kidney Disease Stage 5 (HCC) Anemia Of Chronic Renal Disease documented in this encounter Results * (ABNORMAL) Hemoglobin A1c (03/30/2023 12:21 PM BASKET HAND BRAIDER) Hemoglobin A1c, B 6.8(H) 4.2 - 5.6 % 03/30/2023 12:36 PM BASKET HAND BRAIDER CNFL Comment: Hemoglobin A1c values greater than or equal to 6.5 percent are diagnostic for diabetes mellitus. ??Diagnosis should be confirmed by repeat testing. ??In diabetic patients, HbA1c goals should be discussed with healthcare provider. Blood (Blood, Venous) 03/30/2023 12:21 PM BASKET HAND BRAIDER 03/30/2023 12:23 PM BASKET HAND BRAIDER Mónica Portillo APRN C.N.P., M.S. LAB BLOOD ADD-ON [facility] [address] [place] [address], [place] CNFL [facility] in [address] [address] * (ABNORMAL) Renal Function Panel (03/30/2023 12:21 PM BASKET HAND BRAIDER) Pathologist [facility] Potassium, P 5.0 3.6 - 5.2 mmol/L 03/30/2023 12:57 PM BASKET HAND BRAIDER CNFL Sodium, P 140 135 - 145 mmol/L 03/30/2023 12:57 PM BASKET HAND BRAIDER CNFL Chloride, P 105 98 - 107 mmol/L 03/30/2023 12:57 PM BASKET HAND BRAIDER CNFL Bicarbonate, P 19(L) 22 - 29 mmol/L 03/30/2023 12:57 PM BASKET HAND BRAIDER CNFL Anion Gap, P 16(H) 7 - 15 03/30/2023 12:57 PM BASKET HAND BRAIDER CNFL BUN (Blood Urea Nitrogen), P 79(H) 8 - 24 mg/dL 03/30/2023 12:57 PM BASKET HAND BRAIDER CNFL Creatinine 4.12(H) 0.74 - 1.35 mg/dL 03/30/2023 12:57 PM BASKET HAND BRAIDER CNFL Estimated GFR (eGFR) <15(L) >=60 mL/min/BSA 03/30/2023 12:57 PM BASKET HAND BRAIDER CNFL Comment: Estimated GFR calculated using the 2020 CKD_EPI creatinine equation. Calcium, Total, P 8.6(L) 8.8 - 10.2 mg/dL 03/30/2023 12:57 PM BASKET HAND BRAIDER CNFL Glucose, P 167(H) 70 - 140 mg/dL 03/30/2023 12:57 PM BASKET HAND BRAIDER CNFL Albumin, P 3.8 3.5 - 5.0 g/dL 03/30/2023 12:57 PM BASKET HAND BRAIDER CNFL Phosphorus (Inorganic), P 7.3(H) 2.5 - 4.5 mg/dL 03/30/2023 12:57 PM BASKET HAND BRAIDER CNFL Blood (Blood, Venous) 03/30/2023 12:21 PM BASKET HAND BRAIDER 03/30/2023 12:23 PM BASKET HAND BRAIDER Mónica Portillo APRN C.N.P., M.S. LAB BLOOD ADD-ON [facility] [address] [place] [address], [facility] CNFL [facility] in [address] [address] * (ABNORMAL) CBC without Differential (03/30/2023 12:21 PM BASKET HAND BRAIDER) Hemoglobin 9.9(L) 13.2 - 16.6 g/dL 03/30/2023 12:33 PM BASKET HAND BRAIDER CNFL Hematocrit 30.9(L) 38.3 - 48.6 % 03/30/2023 12:33 PM BASKET HAND BRAIDER CNFL Erythrocytes 3.26(L) 4.35 - 5.65 x10(12)/L 03/30/2023 12:33 PM BASKET HAND BRAIDER CNFL MCV 94.8 78.2 - 97.9 fL 03/30/2023 12:33 PM BASKET HAND BRAIDER CNFL RBC Distrib Width 14.4 11.8 - 14.5 % 03/30/2023 12:33 PM BASKET HAND BRAIDER CNFL Platelet Count 182 135 - 317 x10(9)/L 03/30/2023 12:33 PM BASKET HAND BRAIDER CNFL Leukocytes 10.0(H) 3.4 - 9.6 x10(9)/L 03/30/2023 12:33 PM BASKET HAND BRAIDER CNFL Blood (Blood, Venous) 03/30/2023 12:21 PM BASKET HAND BRAIDER 03/30/2023 12:23 PM BASKET HAND BRAIDER Kassandra Couch APRN.N.P., M.S. LAB BLOOD ADD-ON [facility] [address] [place] [address], [facility] in [address] [address] documented in this encounter Visit Diagnoses Diagnosis Hypertension And Chronic Kidney Disease Stage 5 (HCC) Anemia Of Chronic Renal Disease documented in this encounter Additional Health Concerns Assessment Noted Time PHQ-9 Depression Total Score: 4 06/06/19 23 2:04 PM BASKET HAND BRAIDER documented as of this encounter Care Teams Project Management Director Relationship Specialty Start Date End Date Clover Delaney M.D. [address] [place] [address] [place] [address] PCP - General Internal Medicine 11/23/17 documented as of this encounter
--- OUTSIDE RECORDS SUMMARY | 2023-05-11 02:10 | XMS_ITS | Encounter Summary ---
Author Name Unknown Organization [facility] Address [address] [place] [address] Care Team Providers Care Medical Lab Assistant Name Role Phone Clover Delaney M.D. Primary Care Provider +1- [phone] Encounter Details Date Type Department Care Team (Late st Contact Info) Description 03/30/2023 Orders Only Division of Nephrology and Hypertension in [place], [place] [address] [place] [address] Mónica Portillo, TRIXIE, C.N.P., M.S. [address] [place] [address] Social History Tobacco Use Types Packs/Day Years [...] often do you attend chur ch or worship services? Never 07/28/2022 Do you belong to any clubs o r organizations such as baptism groups, unions, fraternal or athletic groups, or [...] Date Recorded PHQ-2 Score 0 06/06/2022 [facility] of Occupat ional Health - Occupational Stress [...] place to sleep or slept in a mcc (including now)? No 07/28/2022 Depression Answer Date [...] Sex Assigned at Male 05/13/2021 10:11 AM DIRECTOR OF MARKETING OPERATIONS Gender Identity Male 11/02/2017 7:22 PM CDT Sexual Orientation Straight 11/02/2017 7: 22 PM CDT documented as of this encounter Plan of Treatment Upcoming Encounters Date Type Department Care Team (Latest Contact Info) Description 05/28/2023 10:00 AM DIRECTOR OF MARKETING OPERATIONS Appointment Department of Laboratory Medicine in [place] [address] [place] [address] Mónica Portillo APRN, C.N.P., M.S. [address] [place] [phone] 05/28/2023 10:10 AM DIRECTOR OF MARKETING OPERATIONS Appointment Department of Laboratory Medicine in [place] [address] [place] [address] Mónica Portillo APRN, C.N.P., M.S. [address] [place] [phone] 05/29/2023 8:00 AM DIRECTOR OF MARKETING OPERATIONS Office Visit Department of Community Internal Medicine in [place] [address] [place] [address] Clover Delaney M.D. [address] [place] [phone] Discharge Disposition: Home or Self Care 05/29/2023 10:15 AM DIRECTOR OF MARKETING OPERATIONS Appointment Department of Radiology, [facility], in [place], [place] [address] [place] [phone] Mónica Portillo APRN, Kassandra.N.P., M.S. [address] [place] [phone] 05/29/2023 1:00 PM DIRECTOR OF MARKETING OPERATIONS Procedure visit Department of Urology in [place], [place] [address] [place] [phone] Mónica Portillo APRN, C.N.P., M.S. [address] [place] [phone] 05/29/2023 3:00 PM DIRECTOR OF MARKETING OPERATIONS Education Division of Nephrology and Hypertension in [place], [place] [address] [place] [phone] Mónica Portillo APRN, C.NJosé LuisP., M.S. [address] [place] [phone] Sandeep Galicia R.N. [address] [place] [phone] 05/29/2023 4:00 PM DIRECTOR OF MARKETING OPERATIONS Comprehensive Visit Division of Nephrology and Hypertension in [place], [place] [address] [place] [phone] Sera Casiano M.D., Ph.D. [address] [place] [phone] 06/15/2023 2:00 PM DIRECTOR OF MARKETING OPERATIONS Ancillary Procedure Department of Ophthalmology in [address] [phone] Justin Bunch M.D. [address] [place] [phone] 06/15/2023 2:30 PM DIRECTOR OF MARKETING OPERATIONS Ancillary Procedure Department of Ophthalmology in [address] [address] Justin Bunch M.D. [address] [place] [phone] 06/15/2023 2:45 PM DIRECTOR OF MARKETING OPERATIONS Office Visit Department of Ophthalmology in [address] [phone] Justin Bunch M.D. [address] [place] [phone] documented as of this encounter Visit Diagnoses Not on filedocumented in this encounter Additional Health Concerns Assessment Noted Time PHQ-9 Depression Total Score: 4 06/06/19 23 2:04 PM DIRECTOR OF MARKETING OPERATIONS documented as of this encounter Care Teams Medical Lab Assistant Relationship Specialty Start Date End Date Clover Delaney M.D. [address] [place] [phone] PCP - General Internal Medicine 11/23/17 documented as of this encounter
--- OUTSIDE RECORDS SUMMARY | 2023-05-11 02:10 | XMS_ITS | Encounter Summary ---
Author Name Unknown Organization [facility] Address [address] [place] [address] Care Team Providers Care Gluer Machine Setup Operator Name Role Phone Clover Delaney M.D. Primary Care Provider +1- [phone] Reason for Visit * Reason Onset Date Comments Earache 03/27/2023 Encounter Details Date Type Department Care Team (Late st Contact Info) Description 03/27/2023 Nurse Triage Department of Community Internal Medicine in [address] [place] [address] Tahira Melton, RJosé LuisNJosé Luis [address] [place] [phone] Earache Social History Tobacco Use Types Packs/Day [...] any clubs o r organizations such as methodist groups, unions, fraternal or athletic groups, or [...] Answer Date Recorded PHQ-2 Score 0 06/06/2022 [facility] of Occupat ional Health [...] Sex Assigned at Male 05/13/2021 10:11 AM WINDOWS SERVER SUPPORT TECHNICIAN Gender Identity Male 11/02/2017 7:22 PM CDT Sexual Orientation Straight 11/02/2017 7: 22 PM CDT documented as of this encounter Miscellaneous Notes * Telephone Encounter - Tahira Melton R.N. - 03/27/2023 9:34 AM WINDOWS SERVER SUPPORT TECHNICIAN Chief Complaint / Reason for Call Patient [...] acetaminophen, ibuprofen, or naproxen. * They are jlis-zgy-oifkhsx (OTC) pain drugs. You can buy them [...] these dosing instructions unless your doctor (or EXTERIOR DESIGNER/PA) has told you to take a different dose. * Acetaminophen is thought to be safer than ibuprofen or naproxen in people over 65 years old. Acetaminophen is in many OTC and prescription medicines. It might be in more than one medicine that you are taking. You need to be careful and not take an overdose. An acetaminophen overdose can hurt the liver. * [employer], the company that makes Tylenol, has different [...] Patient was warm transferred toMehnaz, Patient Appointment Sewer Builder at the clinic for further assistance. and Endpoint: 4. Reason for Visit: Right face and ear pain . Video Visit: not discussed Reason for Disposition [1] SEVERE pain AND [2] not improved 2 hours after taking analgesic medication (e.g., ibuprofen or acetaminophen) Protocols used: [id number] OWS SERVER SUPPORT TECHNICIAN documented in this encounter Plan of Treatment Upcoming Encounters Date Type Department Care Team (Latest Contact Info) Description 05/28/2023 10:00 AM WINDOWS SERVER SUPPORT TECHNICIAN Appointment Department of Laboratory Medicine in [place] [address] [place] [address] Mónica Portillo APRN, C.N.P., M.S. [address] [place] [address] 05/28/2023 10:10 AM WINDOWS SERVER SUPPORT TECHNICIAN Appointment Department of Laboratory Medicine in [place], [place] [address] [place] [phone] Mónica Portillo APRN, C.N.P., M.S. [address] [place] [address] 05/29/2023 8:00 AM WINDOWS SERVER SUPPORT TECHNICIAN Office Visit Department of Community Internal Medicine in [place], [place] [address] [place] [phone] Clover Delaney M.D. [address] [place] [phone] Discharge Disposition: Home or Self Care 05/29/2023 10:15 AM WINDOWS SERVER SUPPORT TECHNICIAN Appointment Department of Radiology, [facility] in [place], [place] [address] [place] [phone] Mónica Portillo APRN, C.N.P., M.S. [address] [place] [phone] 05/29/2023 1:00 PM WINDOWS SERVER SUPPORT TECHNICIAN Procedure visit Department of Urology in [place], [place] [address] [place] [phone] Mónica Portillo APRN, C.N.P., M.S. [address] [place] [phone] 05/29/2023 3:00 PM WINDOWS SERVER SUPPORT TECHNICIAN Education Division of Nephrology and Hypertension in [place], [place] [address] [place] [phone] Mónica Portillo APRN, C.N.P., M.S. [address] [place] [phone] Sandeep Galicia R.N. [address] [place] [phone] 05/29/2023 4:00 PM WINDOWS SERVER SUPPORT TECHNICIAN Comprehensive Visit Division of Nephrology and Hypertension in [place], [place] [address] [place] [phone] Sera Casiano M.D., Ph.D. [address] [place] [phone] 06/15/2023 2:00 PM WINDOWS SERVER SUPPORT TECHNICIAN Ancillary Procedure Department of Ophthalmology in [place], [place] [address] [place] [phone] Justin Bunch M.D. [address] [place] [phone] 06/15/2023 2:30 PM WINDOWS SERVER SUPPORT TECHNICIAN Ancillary Procedure Department of Ophthalmology in [place], [place] [address] [place] [phone] Justin Bunch M.D. [address] [place] [phone] 06/15/2023 2:45 PM WINDOWS SERVER SUPPORT TECHNICIAN Office Visit Department of Ophthalmology in [place], [place] [address] [place] [phone] Justin Bunch M.D. [address] [place] [phone] documented as of this encounter Visit Diagnoses Not on filedocumented in this encounter Additional Health Concerns Assessment Noted Time PHQ-9 Depression Total Score: 4 06/06/19 23 2:04 PM WINDOWS SERVER SUPPORT TECHNICIAN documented as of this encounter Care Teams Gluer Machine Setup Operator Relationship Specialty Start Date End Date Clover Delaney M.D. [address] [place] [phone] PCP - General Internal Medicine 11/23/17 documented as of this encounter
--- OUTSIDE RECORDS SUMMARY | 2023-05-11 02:10 | XMS_ITS | Encounter Summary ---
Author Name Unknown Organization [facility] Address [address] [place] [address] Care Team Providers Care Machine Hoop Maker Helper Name Role Phone Clover Delaney M.D. Primary Care Provider [phone] Reason for Referral * Specialty Diagnoses / Procedures Referred By Yenny hunter Referred To Contact [facility] [address] [place] [address] [facility] Referral ID Status Reason Start Date Expiration Date Visits Re quested Visits Authorized Scheduling Instructions Please coordinate with next in person CKD appointment MFITTER SUPERVISOR Encounter Details Date Type Department Care Team ([facility] st Contact Info) Description 04/01/2023 Orders Only Division of Nephrology and Hypertension, [facility], in [place], [place] [address] [place] [phone] Frances Farah R.N. [address] [place] [phone] Chronic Kidney Disease (CKD), Stage 3b Glomerular [...] Date Recorded PHQ-2 Score 0 06/06/2022 [facility] - Occupational Stress Questionnaire Answer [...] Sex Assigned at Male 05/13/2021 10:11 AM STEAMFITTER SUPERVISOR Gender Identity Male 11/02/2017 7:22 PM CDT Sexual Orientation Straight 11/02/2017 7: 22 PM CDT documented as of this encounter Plan of Treatment Upcoming Encounters Date Type Department Care Team (Latest Contact Info) Description 05/28/2023 10:00 AM STEAMFITTER SUPERVISOR Appointment Department of Laboratory Medicine in [place], [place] [address] [place] [address] Mónica Portillo APRN, C.N.P., M.S. [address] [place] [phone] 05/28/2023 10:10 AM STEAMFITTER SUPERVISOR Appointment Department of Laboratory Medicine in [place], [place] [address] [place] [address] Mónica Portillo APRN, C.N.P., M.S. [address] [place] [phone] 05/29/2023 8:00 AM STEAMFITTER SUPERVISOR Office Visit Department of Community Internal Medicine in [place], [place] [address] [place] [address] Clover Delaney M.D. [address] [place] [phone] Discharge Disposition: Home or Self Care 05/29/2023 10:15 AM STEAMFITTER SUPERVISOR Appointment Department of Radiology, [facility] in [place], [place] [address] [place] [address] Mónica Portillo APRN, C.N.P., M.S. [address] [place] [phone] 05/29/2023 1:00 PM STEAMFITTER SUPERVISOR Procedure visit Department of Urology in [place], [place] [address] [place] [phone] Mónica Portillo APRN, C.N.P., M.S. [address] [place] [phone] 05/29/2023 3:00 PM STEAMFITTER SUPERVISOR Education Division of Nephrology and Hypertension in [place], [place] [address] [place] [phone] Mónica Portillo APRN, C.N.P., M.S. [address] [place] [phone] Sandeep Galicia R.N. [address] [place] [phone] 05/29/2023 4:00 PM STEAMFITTER SUPERVISOR Comprehensive Visit Division of Nephrology and Hypertension in [place], [place] [address] [place] [phone] Sera Casiano M.D., Ph.D. [address] [place] [phone] 06/15/2023 2:00 PM STEAMFITTER SUPERVISOR Ancillary Procedure Department of Ophthalmology in [address] [phone] Justin Bunch M.D. [address] [place] [phone] 06/15/2023 2:30 PM STEAMFITTER SUPERVISOR Ancillary Procedure Department of Ophthalmology in [address] [phone] Justin Bunch M.D. [address] [place] [phone] 06/15/2023 2:45 PM STEAMFITTER SUPERVISOR Office Visit Department of Ophthalmology in [place], [place] [address] [place] [address] Justin Bunch M.D. [address] [place] [address] Scheduled Referrals Name Type Priority Associated Diagnoses [...] Total Score: 4 06/06/19 23 2:04 PM STEAMFITTER SUPERVISOR documented as of this encounter Care Teams Machine Hoop Maker Helper Relationship Specialty Start Date End Date Clover Delaney M.D. [address] [place] [phone] PCP - General Internal Medicine 11/23/17 documented as of this encounter
--- OUTSIDE RECORDS SUMMARY | 2023-05-11 02:11 | XMS_ITS | Encounter Summary ---
Author Name Unknown Organization [facility] Address [address] [place] [address] Care Team Providers Care Medical Information Officer Name Role Phone Clover Delaney M.D. Primary Care Provider +1- [phone] Encounter Details Date Type Department Care Team (Late st Contact Info) Description 03/02/2023 Orders Only Division of Nephrology and Hypertension in [place], [place] [address] [place] [address] Mónica Portillo, TRIXIE, C.N.P., M.S. [address] [place] [address] Social History Tobacco Use Types Packs/Day Years [...] often do you attend chur ch or jainism services? Never 07/28/2022 Do you belong to [...] Recorded PHQ-2 Score 0 06/06/2022 [facility] of Occupat ional Health - Occupational Stress [...] Sex Assigned at Male 05/13/2021 10:11 AM VOLUNTEER FIRE FIGHTER Gender Identity Male 11/02/2017 7:22 PM CDT Sexual Orientation Straight 11/02/2017 7: 22 PM CDT documented as of this encounter Plan of Treatment Upcoming Encounters Date Type Department Care Team (Latest Contact Info) Description 05/28/2023 10:00 AM VOLUNTEER FIRE FIGHTER Appointment Department of Laboratory Medicine in [place] [address] [place] [address] Mónica Portillo APRN, C.N.P., M.S. [address] [place] [phone] 05/28/2023 10:10 AM VOLUNTEER FIRE FIGHTER Appointment Department of Laboratory Medicine in [place] [address] [place] [address] Mónica Portillo APRN, C.N.P., M.S. [address] [place] [phone] 05/29/2023 8:00 AM VOLUNTEER FIRE FIGHTER Office Visit Department of Community Internal Medicine in [place] [address] [place] [address] Clover Delaney M.D. [address] [place] [phone] Discharge Disposition: Home or Self Care 05/29/2023 10:15 AM VOLUNTEER FIRE FIGHTER Appointment Department of Radiology, [facility], in [place], [place] [address] [place] [phone] Mónica Portillo APRN, Kassandra.N.P., M.S. [address] [place] [phone] 05/29/2023 1:00 PM VOLUNTEER FIRE FIGHTER Procedure visit Department of Urology in [place], [place] [address] [place] [phone] Mónica Portillo APRN, C.N.P., M.S. [address] [place] [phone] 05/29/2023 3:00 PM VOLUNTEER FIRE FIGHTER Education Division of Nephrology and Hypertension in [place], [place] [address] [place] [phone] Mónica Portillo APRN, C.NJosé LuisP., M.S. [address] [place] [phone] Sandeep Galicia R.N. [address] [place] [phone] 05/29/2023 4:00 PM VOLUNTEER FIRE FIGHTER Comprehensive Visit Division of Nephrology and Hypertension in [place], [place] [address] [place] [phone] Sera Casiano M.D., Ph.D. [address] [place] [phone] 06/15/2023 2:00 PM VOLUNTEER FIRE FIGHTER Ancillary Procedure Department of Ophthalmology in [address] [address] Justin Bunch M.D. [address] [place] [phone] 06/15/2023 2:30 PM VOLUNTEER FIRE FIGHTER Ancillary Procedure Department of Ophthalmology in [address] [phone] Justin Bunch M.D. [address] [place] [phone] 06/15/2023 2:45 PM VOLUNTEER FIRE FIGHTER Office Visit Department of Ophthalmology in [address] [address] Justin Bunch M.D. [address] [place] [phone] documented as of this encounter Visit Diagnoses Not on filedocumented in this encounter Additional Health Concerns Assessment Noted Time PHQ-9 Depression Total Score: 4 06/06/19 23 2:04 PM VOLUNTEER FIRE FIGHTER documented as of this encounter Care Teams Medical Information Officer Relationship Specialty Start Date End Date Clover Delaney M.D. [address] [place] [phone] PCP - General Internal Medicine 11/23/17 documented as of this encounter
--- OUTSIDE RECORDS SUMMARY | 2023-05-11 02:11 | XMS_ITS | Encounter Summary ---
Author Name Unknown Organization [facility] Address [address] [place] [address] Care Team Providers Care Life Skills Worker Name Role Phone Clover Delaney M.D. Primary Care Provider +1- [phone] Reason for Visit * Reason Comments Injections Aranesp 80mcg (hgb 9 .7) * Episode Based Medications (Routine) - Pending Review Specialty Diagnoses / Procedures Referred By Contac t Referred To Contact Diagnoses Malignant Neoplasm Of Transverse Colon (HCC) Anemia Of Chronic Renal Disease Procedures CO DARBEPOETIN KERRI, NON-ESRD CO DARBEPOETIN KERRI, ESRD USE Mónica Portillo APRN, C.N.P., M.S. 200 [place] [address] [facility] Region Referral ID Status Reason Start Date Expiration Date V isits Requested Visits Authorized [id number] Pending Review 09/03/2022 09/03/2023 12 12 Encounter Details Date Type Department Care Team (Late st Contact Info) Description 03/02/2023 1:30 PM INSOLE AND HEEL STIFFENER Infusion Department of Infusion Therapy in [address] [phone] Mónica Portillo APRN, C.N.P., M.S. [address] [place] [phone] Anemia Of Chronic Renal Disease (Primary [...] 06/06/2022 [facility] of Occupat ional Health [...] Sex Assigned at Male 05/13/2021 10:11 AM INSOLE AND HEEL STIFFENER Gender Identity Male 11/02/2017 7:22 PM CDT Sexual Orientation Straight 11/02/2017 7: 22 PM CDT documented as of this encounter Miscellaneous Notes * Addendum Note - Elle Hawley R.N. - 03/02/2023 1:30 PM CSTAddended by: ELLE HAWLEY on: 03/06/2023 11:24 AM Modules accepted: Orders LE AND HEEL STIFFENER documented in this encounter Plan of Treatment Upcoming Encounters Date Type Department Care Team (Latest Contact Info) Description 05/28/2023 10:00 AM INSOLE AND HEEL STIFFENER Appointment Department of Laboratory Medicine in [place] [address] [place] [address] Mónica Portillo APRN, C.N.P., M.S. [address] [place] [phone] 05/28/2023 10:10 AM INSOLE AND HEEL STIFFENER Appointment Department of Laboratory Medicine in [place], [place] [address] [place] [address] Mónica Portillo APRN, C.N.P., M.S. [address] [place] [phone] 05/29/2023 8:00 AM INSOLE AND HEEL STIFFENER Office Visit Department of Community Internal Medicine in [place], [place] [address] [place] [address] Clover Delaney M.D. [address] [place] [phone] Discharge Disposition: Home or Self Care 05/29/2023 10:15 AM INSOLE AND HEEL STIFFENER Appointment Department of Radiology, [facility], in [place], [place] [address] [place] [phone] Mónica Portillo APRN, C.N.P., M.S. [address] [place] [phone] 05/29/2023 1:00 PM INSOLE AND HEEL STIFFENER Procedure visit Department of Urology in [place], [place] [address] [place] [phone] Mónica Portillo APRN, C.N.P., M.S. [address] [place] [phone] 05/29/2023 3:00 PM INSOLE AND HEEL STIFFENER Education Division of Nephrology and Hypertension in [place], [place] [address] [place] [phone] Mónica Portillo APRN, C.N.P., M.S. [address] [place] [phone] Sandeep Galicia R.N. [address] [place] [phone] 05/29/2023 4:00 PM INSOLE AND HEEL STIFFENER Comprehensive Visit Division of Nephrology and Hypertension in [place], [place] [address] [place] [phone] Sera Casiano M.D., Ph.D. [address] [place] [phone] 06/15/2023 2:00 PM INSOLE AND HEEL STIFFENER Ancillary Procedure Department of Ophthalmology in [place], [place] [address] [place] [address] Justin Bunch M.D. [address] [place] [phone] 06/15/2023 2:30 PM INSOLE AND HEEL STIFFENER Ancillary Procedure Department of Ophthalmology in [place], [place] [address] [place] [phone] Justin Bunch M.D. [address] [place] [phone] 06/15/2023 2:45 PM INSOLE AND HEEL STIFFENER Office Visit Department of Ophthalmology in [place], [place] [address] [place] [phone] Justin Bunch M.D. [address] [place] [phone] documented as of this encounter Visit Diagnoses [...] chronic kidney disease Given 03/02/2023 1:23 PM INSOLE AND HEEL STIFFENER 80 mcg Oth er documented in this encounter Additional Health Concerns Assessment Noted Time PHQ-9 Depression Total Score: 4 06/06/19 2:04 PM INSOLE AND HEEL STIFFENER documented as of this encounter Care Teams Life Skills Worker Relationship Specialty Start Date End Date Clover Delaney M.D. [address] [address] PCP - General Internal Medicine 11/23/17 documented as of this encounter
--- OUTSIDE RECORDS SUMMARY | 2023-05-11 02:11 | XMS_ITS | Encounter Summary ---
Author Name Unknown Organization [facility] Address [address] [place] [address] Care Team Providers Care Mill Beam Fitter Name Role Phone Clover Delaney M.D. Primary Care Provider +1- [phone] Reason for Visit * Reason Onset Date Comments Med Question 03/02/2023 Kamleshlj Encounter Details Date Type Department Care Team (Latest Contact Info) Description 03/02/2023 Clinical Communication Department of Infusion Therapy in [address] [phone] Elaina Rueda, RJosé LuisN. [address] [place] [phone] Med Question (Feraheme) Social History Tobacco Use [...] Answer Date Recorded PHQ-2 Score 0 06/06/2022 [facility] of Occupat ional Health - Occupational Stress [...] Sex Assigned at Male 05/13/2021 10:11 AM JANITORIAL MANAGER Gender Identity Male 11/02/2017 7:22 PM CDT Sexual Orientation Straight 11/02/2017 7: 22 PM CDT documented as of this encounter Plan of Treatment Upcoming Encounters Date Type Department Care Team (Latest Contact Info) Description 05/28/2023 10:00 AM JANITORIAL MANAGER Appointment Department of Laboratory Medicine in [place], [place] [address] [place] [address] Mónica Portillo APRN, C.N.P., M.S. [address] [place] [phone] 05/28/2023 10:10 AM JANITORIAL MANAGER Appointment Department of Laboratory Medicine in [place], [place] [address] [place] [address] Mónica Portillo APRN, C.N.P., M.S. [address] [place] [phone] 05/29/2023 8:00 AM JANITORIAL MANAGER Office Visit Department of Community Internal Medicine in [place], [place] [address] [place] [address] Clover Delaney M.D. [address] [place] [phone] Discharge Disposition: Home or Self Care 05/29/2023 10:15 AM JANITORIAL MANAGER Appointment Department of Radiology, [facility], in [place], [place] [address] [place] [phone] Mónica Portillo APRN, C.N.P., M.S. [address] [place] [phone] 05/29/2023 1:00 PM JANITORIAL MANAGER Procedure visit Department of Urology in [place], [place] [address] [place] [address] Mónica Portillo APRN, C.N.P., M.S. [address] [place] [phone] 05/29/2023 3:00 PM JANITORIAL MANAGER Education Division of Nephrology and Hypertension in [place], [place] [address] [place] [phone] Mónica Portillo APRN, DrewNJosé LuisP., M.S. [address] [place] [phone] Sandeep Galicia R.N. [address] [place] [phone] 05/29/2023 4:00 PM JANITORIAL MANAGER Comprehensive Visit Division of Nephrology and Hypertension in [place], [place] [address] [place] [phone] Sera Casiano M.D., Ph.D. [address] [place] [phone] 06/15/2023 2:00 PM JANITORIAL MANAGER Ancillary Procedure Department of Ophthalmology in [place], [place] [address] [place] [phone] Justin Bunch M.D. [address] [place] [phone] 06/15/2023 2:30 PM JANITORIAL MANAGER Ancillary Procedure Department of Ophthalmology in [address] [address] Justin Bunch M.D. [address] [place] [phone] 06/15/2023 2:45 PM JANITORIAL MANAGER Office Visit Department of Ophthalmology in [address] [phone] Justin Bunch M.D. [address] [place] [phone] documented as of this encounter Visit Diagnoses Not on filedocumented in this encounter Additional Health Concerns Assessment Noted Time PHQ-9 Depression Total Score: 4 06/06/19 23 2:04 PM JANITORIAL MANAGER documented as of this encounter Care Teams Mill Beam Fitter Relationship Specialty Start Date End Date Clover Delaney M.D. NPKatlin: [phone] [address] [place] [address] PCP - General Internal Medicine 11/23/17 documented as of this encounter
--- OUTSIDE RECORDS SUMMARY | 2023-05-11 02:11 | XMS_ITS | Encounter Summary ---
Author Name Unknown Organization [facility] Address [address] [place] [address] Care Team Providers Care Review Coordinator Name Role Phone Clover Delaney M.D. Primary Care Provider +1- [phone] Reason for Referral * Outpatient (Routine) - Authorized Specialty Diagnoses / Procedures Referred By Yenny t Referred To Contact Ophthalmology Justin Bunch M.D. [address] [place] [address] [facility] Referral ID Status Reason Start Date Expiration Date V isits Requested Visits Authorized [id number] Authorized 03/06/2023 03/05/2026 1 1 WORKER Encounter Details Date Type Department Care Team (Late st Contact Info) Description 03/06/2023 Orders Only Department of Ophthalmology in [place], [place] [address] [place] [phone] Tanisha Epps Diabetes Mellitus Type 2 With [...] week 07/28/2022 How often do you attend [facility] or confucianism services? Never 07/28/2022 Do you [...] [facility] of Occupat ional Health - [...] Sex Assigned at Male 05/13/2021 10:11 AM CALL WORKER Gender Identity Male 11/02/2017 7:22 PM CDT Sexual Orientation Straight 11/02/2017 7: 22 PM CDT documented as of this encounter Plan of Treatment Upcoming Encounters Date Type Department Care Team (Latest Contact Info) Description 05/28/2023 10:00 AM CALL WORKER Appointment Department of Laboratory Medicine in [place] [address] [place] [address] Mónica Portillo APRN, C.N.P., M.S. [address] [place] [phone] 05/28/2023 10:10 AM CALL WORKER Appointment Department of Laboratory Medicine in [place] [address] [place] [phone] Mónica Portillo APRN, C.N.P., M.S. [address] [place] [phone] 05/29/2023 8:00 AM CALL WORKER Office Visit Department of Community Internal Medicine in [place] [address] [place] [address] Clover Delaney M.D. [address] [place] [phone] Discharge Disposition: Home or Self Care 05/29/2023 10:15 AM CALL WORKER Appointment Department of Radiology, [facility] in [place], [place] [address] [place] [phone] Mónica Portillo APRN, C.N.P., M.S. [address] [place] [phone] 05/29/2023 1:00 PM CALL WORKER Procedure visit Department of Urology in [place], [place] [address] [place] [phone] Mónica Portillo APRN, C.N.P., M.S. [address] [place] [phone] 05/29/2023 3:00 PM CALL WORKER Education Division of Nephrology and Hypertension in [place], [place] [address] [place] [phone] Mónica Portillo APRN, C.N.P., M.S. [address] [place] [phone] Sandeep Galicia R.Garima [address] [place] [phone] 05/29/2023 4:00 PM CALL WORKER Comprehensive Visit Division of Nephrology and Hypertension in [place], [place] [address] [place] [phone] Sera Casiano M.D., Ph.D. [address] [place] [phone] 06/15/2023 2:00 PM CALL WORKER Ancillary Procedure Department of Ophthalmology in [place], [place] [address] [place] [phone] Justin Bunch M.D. [address] [place] [phone] 06/15/2023 2:30 PM CALL WORKER Ancillary Procedure Department of Ophthalmology in [place], [place] [address] [place] [phone] Justin Bunch M.D. [address] [place] [phone] 06/15/2023 2:45 PM CALL WORKER Office Visit Department of Ophthalmology in [place], [place] [address] [place] [address] Justin Bunch M.D. [address] [place] [address] Scheduled Orders Name Type Priority Associated Diagnoses [...] Total Score: 4 06/06/19 23 2:04 PM CALL WORKER documented as of this encounter Care Teams Review Coordinator Relationship Specialty Start Date End Date Clover Delaney M.D. [address] [place] [address] PCP - General Internal Medicine 11/23/17 documented as of this encounter
--- OUTSIDE RECORDS SUMMARY | 2023-05-11 02:11 | XMS_ITS | Encounter Summary ---
Author Name Unknown Organization [facility] Address [address] [place] [address] Care Team Providers Care Home Companion Name Role Phone Clover Delaney M.D. 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 [address] [place] [address] Rst Oph Ellen [address] [place] [address] Referral ID Status Reason Start Date Expiration Date V isits Requested Visits Authorized [id number] Authorized 03/06/2023 03/05/2024 3 3 Encounter Details Date Type Department Care Team (Latest Contact Info) Description 03/06/2023 2:40 PM SWEET PICKLE MAKER Ancillary Procedure Department of Ophthalmology in [place], [place] [address] [place] [phone] Jon Juarez M.D. [address] [place] [address] Diabetes Mellitus Type 2 With [...] often do you attend chur ch or latter day services? Never 07/28/2022 Do you belong to [...] Answer Date Recorded PHQ-2 Score 0 06/06/[address] [facility] [place] [facility] - Occupational Stress Questionnaire Answer [...] place to sleep or slept in a detention (including now)? No 07/28/2022 Depression Answer Date [...] Sex Assigned at Male 05/13/2021 10:11 AM SWEET PICKLE MAKER Gender Identity Male 11/02/2017 7:22 PM CDT Sexual Orientation Straight 11/02/2017 7: 22 PM CDT documented as of this encounter Plan of Treatment Upcoming Encounters Date Type Department Care Team (Latest Contact Info) Description 05/28/2023 10:00 AM SWEET PICKLE MAKER Appointment Department of Laboratory Medicine in [place], [place] [address] [place] [address] Mónica Portillo APRN, C.N.P., M.S. [address] [place] [phone] 05/28/2023 10:10 AM SWEET PICKLE MAKER Appointment Department of Laboratory Medicine in [place], [place] [address] [place] [address] Mónica Portillo APRN, C.N.P., M.S. [address] [place] [phone] 05/29/2023 8:00 AM SWEET PICKLE MAKER Office Visit Department of Community Internal Medicine in [place], [place] [address] [place] [address] [address] Clover Delaney M.D. [address] [place] [phone] Discharge Disposition: Home or Self Care 05/29/2023 10:15 AM SWEET PICKLE MAKER Appointment Department of Radiology, [facility], in [place], [place] [address] [place] [address] Mónica Portillo APRN, Kassandra.N.P., M.S. [address] [place] [phone] 05/29/2023 1:00 PM SWEET PICKLE MAKER Procedure visit Department of Urology in [place], [place] [address] [place] [phone] Mónica Portillo APRN, C.N.P., M.S. [address] [place] [phone] 05/29/2023 3:00 PM SWEET PICKLE MAKER Education Division of Nephrology and Hypertension in [place], [place] [address] [place] [phone] Mónica Portillo APRN, C.N.P., M.S. [address] [place] [phone] Sandeep Galicia R.N. [address] [place] [phone] 05/29/2023 4:00 PM SWEET PICKLE MAKER Comprehensive Visit Division of Nephrology and Hypertension in [place], [place] [address] [place] [phone] Sera Casiano M.D., Ph.D. [address] [place] [phone] 06/15/2023 2:00 PM SWEET PICKLE MAKER Ancillary Procedure Department of Ophthalmology in [place], [place] [address] [place] [phone] Justin Bunch M.D. [address] [place] [phone] 06/15/2023 2:30 PM SWEET PICKLE MAKER Ancillary Procedure Department of Ophthalmology in [place], [place] [address] [place] [address] Justin Bunch M.D. [address] [place] [address] 06/15/2023 2:45 PM SWEET PICKLE MAKER Office Visit Department of Ophthalmology in [place], [place] [address] [place] [address] Justin Bunch M.D. 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 [address] [place] [phone] PCP - General Internal Medicine 11/23/17 documented as of this encounter
--- OUTSIDE RECORDS SUMMARY | 2023-05-11 02:11 | XMS_ITS | Encounter Summary ---
Author Name Unknown Organization [facility] Address [address] [place] [address] Care Team Providers Care Business Strategist Name Role Phone Clover Delaney M.D. Primary Care Provider +1- [phone] Reason for Visit * Episode Based Medications (Routine) - Pending Review Specialty Diagnoses / Procedures Referred By Contanthony t Referred To Contact Diagnoses Malignant Neoplasm Of Transverse Colon (HCC) Anemia Of Chronic Renal Disease Procedures ME DARBEPOETIN SHER, NON-ESRD ME DARBEPOETIN SHER, ESRD USE Mónica Portillo APRN, C.N.P., M.S. 200 [place] [address] [facility] Region Referral ID Status Reason Start Date Expiration Date V isits Requested Visits Authorized [id number] Pending Review 09/03/2022 09/03/2023 12 12 Encounter Details Date Type Department Care Team (Latest Contact Info) Description 03/02/2023 12:36 PM FIBERGLASS QUALITY TECHNICIAN - 03/02/2023 11:59 PM FIBERGLASS QUALITY TECHNICIAN Hospital Encounter Department of Laboratory Medicine in [address] [phone] Mónica Portillo APRN, C.N.P., M.S. [address] [place] [phone] Anemia Of Chronic Renal Disease Discharge Disposition: [...] Answer Date Recorded PHQ-2 Score 0 06/06/2022 [facility] - Occupational Stress Questionnaire Answer Date Recorded [...] Sex Assigned at Male 05/13/2021 10:11 AM FIBERGLASS QUALITY TECHNICIAN Gender Identity Male 11/02/2017 7:22 PM [...] mouth as needed. 0 miscellaneous medical supply [facility] CPAP Supplies See Instructions, CPAP machine, mask 1 ea x 4 refills, headgear 1 ea x 2 refills, tubing 1 ea x 4 refills, filters 2 ea per month, tub 1 ea x 2 refills, mask seal 1 ea x 2 refills DX G47.33, length of need 99, 1 each, 0 Refill(s) 0 10/20/2016 miscellaneous medical supply [facility] Head Gear for CPAP Machine See Instructions, fax to patient at [phone], 1 each 0 01/17/2014 MULTIVITAMIN ORAL Daily Multiple Vitamins See Instructions, Take 1 tablet by mouth daily. 0 07/23/2013 multivitamin-eye (PRESERVISION LUTEIN) 226 mg-90 mg-5 mg-0.8 mg capsule Take 2 capsules by mouth daily. 0 ONETOUCH DELICA LANCETS 33 gauge [facility] 3 08/02/2018 OneTouch Ultra Test stripsIndications:Diabe daquan [...] at bedtime. 30 mL 3 01/27/2022 03/16/2023 pen needle, diabetic (UltiCare Pen Needle) 32 gauge x 1/4 needle 1 Injection daily. 100 each 3 04/07/2022 05/08/2023 documented as of this encounter Plan of Treatment Upcoming Encounters Date Type Department Care Team (Latest Contact Info) Description 05/28/2023 10:00 AM FIBERGLASS QUALITY TECHNICIAN Appointment Department of Laboratory Medicine in [place] [address] [place] [address] Mónica Portillo APRN, C.N.P., M.S. [address] [place] [phone] 05/28/2023 10:10 AM FIBERGLASS QUALITY TECHNICIAN Appointment Department of Laboratory Medicine in [place] [address] [place] [phone] Mónica Portillo APRN, C.N.P., M.S. [address] [place] [phone] 05/29/2023 8:00 AM FIBERGLASS QUALITY TECHNICIAN Office Visit Department of Community Internal Medicine in [place], [place] [address] [place] [phone] Clover Delaney M.D. [address] [place] [phone] Discharge Disposition: Home or Self Care 05/29/2023 10:15 AM FIBERGLASS QUALITY TECHNICIAN Appointment Department of Radiology, [facility] in [place], [place] [address] [place] [phone] Mónica Portillo APRN, C.N.P., M.S. [address] [place] [phone] 05/29/2023 1:00 PM FIBERGLASS QUALITY TECHNICIAN Procedure visit Department of Urology in [place], [place] [address] [place] [phone] Mónica Portillo APRN, C.N.P., M.S. [address] [place] [phone] 05/29/2023 3:00 PM FIBERGLASS QUALITY TECHNICIAN Education Division of Nephrology and Hypertension in [place], [place] [address] [place] [phone] Mónica Portillo APRN, C.NTaylor., M.S. [address] [place] [phone] Sandeep Galicia R.N. [address] [place] [phone] 05/29/2023 4:00 PM FIBERGLASS QUALITY TECHNICIAN Comprehensive Visit Division of Nephrology and Hypertension in [address] [phone] Sera Casiano M.D., Ph.D. [address] [place] [phone] 06/15/2023 2:00 PM FIBERGLASS QUALITY TECHNICIAN Ancillary Procedure Department of Ophthalmology in [place], [place] [address] [place] [phone] Justin Bunch M.D. [address] [place] [phone] 06/15/2023 2:30 PM FIBERGLASS QUALITY TECHNICIAN Ancillary Procedure Department of Ophthalmology in [place], [place] [address] [place] [phone] Justin Bunch M.D. [address] [place] [phone] 06/15/2023 2:45 PM FIBERGLASS QUALITY TECHNICIAN Office Visit Department of Ophthalmology in [place], [place] [address] [place] [phone] Justin Bunch M.D. [address] [place] [phone] documented as of this encounter Procedures Procedure Name Priority Date/Time Associated Diagnosis Comments CBC WITH DIFFERENTIAL, B Routine 03/02/2023 12:41 PM FIBERGLASS QUALITY TECHNICIAN Anemia Of Chronic Renal Disease documented in this encounter Results * (ABNORMAL) CBC with Differential, Blood (03/02/2023 12:41 PM FIBERGLASS QUALITY TECHNICIAN) Hemoglobin 9.7(L) 13.2 - 16.6 g/dL 03/02/2023 1:10 PM FIBERGLASS QUALITY TECHNICIAN CNFL Hematocrit 29.4(L) 38.3 - 48.6 % 03/02/2023 1:10 PM FIBERGLASS QUALITY TECHNICIAN CNFL Erythrocytes 3.17(L) 4.35 - 5.65 x10(12)/L 03/02/2023 1:10 PM FIBERGLASS QUALITY TECHNICIAN CNFL MCV 92.7 78.2 - 97.9 fL 03/02/2023 1:10 PM FIBERGLASS QUALITY TECHNICIAN CNFL RBC Distrib Width 14.4 11.8 - 14.5 % 03/02/2023 1:10 PM FIBERGLASS QUALITY TECHNICIAN CNFL Platelet Count 180 135 - 317 x10(9)/L 03/02/2023 1:10 PM FIBERGLASS QUALITY TECHNICIAN CNFL Leukocytes 10.3(H) 3.4 - 9.6 x10(9)/L 03/02/2023 1:10 PM FIBERGLASS QUALITY TECHNICIAN CNFL Neutrophils 8.51(H) 1.56 - 6.45 x10(9)/L 03/02/2023 1:10 PM FIBERGLASS QUALITY TECHNICIAN CNFL Lymphocytes 0.87(L) 0.95 - 3.07 x10(9)/L 03/02/2023 1:10 PM FIBERGLASS QUALITY TECHNICIAN CNFL Monocytes 0.71 0.26 - 0.81 x10(9)/L 03/02/2023 1:10 PM FIBERGLASS QUALITY TECHNICIAN CNFL Eosinophils 0.14 0.03 - 0.48 x10(9)/L 03/02/2023 1:10 PM FIBERGLASS QUALITY TECHNICIAN CNFL Basophils <0.04 0.01 - 0.08 x10(9)/L 03/02/2023 1:10 PM FIBERGLASS QUALITY TECHNICIAN CNFL Blood (Blood, Venous) 03/02/2023 12:41 PM FIBERGLASS QUALITY TECHNICIAN 03/02/2023 12:55 PM FIBERGLASS QUALITY TECHNICIAN Mónica Portillo APRN C.N.P., M.S. LAB BLOOD ADD-ON [facility] [address] [place] [address], [facility] CNFL [facility] in [address] [address] documented in this encounter Visit Diagnoses Diagnosis Anemia Of Chronic Renal Disease documented in this encounter Additional Health Concerns Assessment Noted Time PHQ-9 Depression Total Score: 4 06/06/19 23 2:04 PM FIBERGLASS QUALITY TECHNICIAN documented as of this encounter Care Teams Business Strategist Relationship Specialty Start Date End Date Clover Delaney M.D. NPKatlin: [id number] [address] [place] [address] PCP - General Internal Medicine 11/23/17 documented as of this encounter
--- OUTSIDE RECORDS SUMMARY | 2023-05-11 02:11 | XMS_ITS | Encounter Summary ---
Author Name Unknown Organization [facility] Address [address] [place] [address] Care Team Providers Care Rest Room Attendant Name Role Phone Clover Delaney M.D. Primary Care Provider +1- [phone] Reason for Visit * Reason Comments Patient Education Encounter Details Date Type Department Care Team (Latest Contact Info) Description 03/03/2023 11:00 AM MAINTENANCE SCHEDULER Telemedicine Department of Patient Education in [place], [place] [address] [place] [address] Mónica Portillo, TRIXIE, C.N.P., M.S. [address] [place] [address] Chronic Kidney Disease Stage 4 Glomerular Filtration [...] How often do you attend chur or samaritan services? Never 07/28/2022 Do you belong to any clubs o r organizations such as baptist groups, unions, fraternal or athletic groups, or [...] Answer Date Recorded PHQ-2 Score 0 06/06/2022 [facility] of Occupat ional Health - Occupational Stress [...] Assigned at Male 05/13/2021 10:11 AM MAINTENANCE SCHEDULER Gender Identity Male 11/02/2017 7:22 PM CDT Sexual Orientation Straight 11/02/2017 7: 22 PM CDT documented as of this encounter Plan of Treatment Upcoming Encounters Date Type Department Care Team (Latest Contact Info) Description 05/28/2023 10:00 AM MAINTENANCE SCHEDULER Appointment Department of Laboratory Medicine in [place] [address] [place] [address] Mónica Portillo APRN, C.N.P., M.S. [address] [place] [phone] 05/28/2023 10:10 AM MAINTENANCE SCHEDULER Appointment Department of Laboratory Medicine in [place] [address] [place] [address] Mónica Portillo APRN, C.N.P., M.S. [address] [place] [phone] 05/29/2023 8:00 AM MAINTENANCE SCHEDULER Office Visit Department of Community Internal Medicine in [place] [address] [place] [phone] Clover Delaney M.D. [address] [place] [phone] Discharge Disposition: Home or Self Care 05/29/2023 10:15 AM MAINTENANCE SCHEDULER Appointment Department of Radiology, [facility], in [place], [place] [address] [place] [phone] Mónica Portillo APRN, C.N.P., M.S. [address] [place] [phone] 05/29/2023 1:00 PM MAINTENANCE SCHEDULER Procedure visit Department of Urology in [place], [place] [address] [place] [phone] Mónica Portillo APRN, C.N.P., M.S. [address] [place] [phone] 05/29/2023 3:00 PM MAINTENANCE SCHEDULER Education Division of Nephrology and Hypertension in [place], [place] [address] [place] [phone] Mónica Portillo APRN, C.N.P., M.S. [address] [place] [phone] Sandeep Galicia R.N. [address] [place] [phone] 05/29/2023 4:00 PM MAINTENANCE SCHEDULER Comprehensive Visit Division of Nephrology and Hypertension in [place], [place] [address] [place] [phone] Sera Casiano M.D., Ph.D. [address] [place] [phone] 06/15/2023 2:00 PM MAINTENANCE SCHEDULER Ancillary Procedure Department of Ophthalmology in [place], [place] [address] [place] [phone] Justin Bunch M.D. [address] [place] [phone] 06/15/2023 2:30 PM MAINTENANCE SCHEDULER Ancillary Procedure Department of Ophthalmology in [place], [place] [address] [place] [phone] Justin Bunch M.D. [address] [place] [phone] 06/15/2023 2:45 PM MAINTENANCE SCHEDULER Office Visit Department of Ophthalmology in [place], [place] [address] [place] [phone] Justin Bunch M.D. 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 [address] [place] [phone] PCP - General Internal Medicine 11/23/17 documented as of this encounter
--- OUTSIDE RECORDS SUMMARY | 2023-05-11 02:11 | XMS_ITS | Encounter Summary ---
Author Name Unknown Organization [facility] Address [address] [place] [address] Care Team Providers Care Reverse Logistics Analyst Name Role Phone Clover Delaney M.D. Primary Care Provider [phone]- [phone] Encounter Details Date Type Department Care Team [...] any clubs o r organizations such as congregational groups, unions, fraternal or athletic groups, or [...] 0 06/06/2022 [facility] of Occupat ional Health - [...] Sex Assigned at Male 05/13/2021 10:11 AM FIRE BOAT ENGINEER Gender Identity Male 11/02/2017 7:22 PM CDT Sexual Orientation Straight 11/02/2017 7: 22 PM CDT documented as of this encounter Plan of Treatment Upcoming Encounters Date Type Department Care Team (Latest Contact Info) Description 05/28/2023 10:00 AM FIRE BOAT ENGINEER Appointment Department of Laboratory Medicine in [address] [place] [phone] Mónica Portillo APRN, C.N.P., M.S. [address] [place] [phone] 05/28/2023 10:10 AM FIRE BOAT ENGINEER Appointment Department of Laboratory Medicine in [place], [place] [address] [place] [phone] Mónica Portillo APRN, C.N.P., M.S. [address] [place] [phone] 05/29/2023 8:00 AM FIRE BOAT ENGINEER Office Visit Department of Community Internal Medicine in [place], [place] [address] [place] [phone] Clover Delaney M.D. [address] [place] [phone] Discharge Disposition: Home or Self Care 05/29/2023 10:15 AM FIRE BOAT ENGINEER Appointment Department of Radiology, [facility], in [place], [place] [address] [place] [phone] Mónica Portillo APRN, C.N.P., M.S. [address] [place] [phone] 05/29/2023 1:00 PM FIRE BOAT ENGINEER Procedure visit Department of Urology in [place], [place] [address] [place] [phone] Mónica Portillo APRN, C.N.P., M.S. [address] [place] [phone] 05/29/2023 3:00 PM FIRE BOAT ENGINEER Education Division of Nephrology and Hypertension in [place], [place] [address] [place] [phone] Mónica Portillo APRN, C.N.P., M.S. [address] [place] [phone] Sandeep Galicia R.N. [address] [place] [phone] 05/29/2023 4:00 PM FIRE BOAT ENGINEER Comprehensive Visit Division of Nephrology and Hypertension in [place], [place] [address] [place] [phone] Sera Casiano M.D., Ph.D. [address] [place] [phone] 06/15/2023 2:00 PM FIRE BOAT ENGINEER Ancillary Procedure Department of Ophthalmology in [place], [place] [address] [place] [phone] Justin Bunch M.D. [address] [place] [phone] 06/15/2023 2:30 PM FIRE BOAT ENGINEER Ancillary Procedure Department of Ophthalmology in [place], [place] [address] [place] [phone] Justin Bunch M.D. [address] [place] [phone] 06/15/2023 2:45 PM FIRE BOAT ENGINEER Office Visit Department of Ophthalmology in [place], [place] [address] [place] [phone] Justin Bunch M.D. [address] [place] [phone] documented as of this encounter Procedures Procedure Name Priority Date/Time Associated Diagnosis Comments OPHTHALMOLOGY IMAGE EXAM Routine 03/06/2023 12:00 AM FIRE BOAT ENGINEER documented in this encounter Results * Eyes Spectralis OCT-Ophthalmology Image Exam (03/06/2023 12:00 AM FIRE BOAT ENGINEER) Narrative IINH - 03/06/2023 2:10 PM FIRE BOAT ENGINEER This order has been created and auto-finalized [...] Total Score: 4 06/06/19 23 2:04 PM FIRE BOAT ENGINEER documented as of this encounter Care Teams Reverse Logistics Analyst Relationship Specialty Start Date End Date Clover Delaney M.D. [address] [place] [phone] PCP - General Internal Medicine 11/23/17 documented as of this encounter
--- OUTSIDE RECORDS SUMMARY | 2023-05-11 02:11 | XMS_ITS | Encounter Summary ---
Author Name Unknown Organization [facility] Address [address] [place] [address] Care Team Providers Care Small Machine Bindery Operator Name Role Phone Clover Delaney M.D. Primary Care Provider +1- [phone] Reason for Visit * Outpatient (Routine) - Closed Specialty Diagnoses / Procedures Referred By Yenny t Referred To Contact Ophthalmology Jon Juarez M.D. [address] [place] [address] [facility] Referral ID Status Reason Start Date Expiration Date Visits Re quested Visits Authorized [id number] Closed 01/19/2023 01/18/2026 1 1 Encounter Details Date Type Department Care Team (Latest Contact Info) Description 03/06/2023 3:00 PM STATE'S ATTORNEY Office Visit Department of Ophthalmology in [place], [place] [address] [place] [phone] Justin Bunch M.D. [address] [place] [phone] Diabetes Mellitus Type 2 With [...] How often do you attend chur or hoahaoism services? Never 07/28/2022 Do you belong to any clubs o r organizations such as yazdanism groups, unions, fraternal or athletic groups, or [...] Sex Assigned at Male 05/13/2021 10:11 AM STATE'S ATTORNEY Gender Identity Male 11/02/2017 7:22 PM CDT [...] Plan FU 14-16 weeks with OCT macula E'S ATTORNEY documented in this encounter Plan of Treatment Upcoming Encounters Date Type Department Care Team (Latest Contact Info) Description 05/28/2023 10:00 AM STATE'S ATTORNEY Appointment Department of Laboratory Medicine in [address] [place] [phone] Mónica Portillo APRN, C.N.P., M.S. [address] [place] [phone] 05/28/2023 10:10 AM STATE'S ATTORNEY Appointment Department of Laboratory Medicine in [place] [address] [place] [phone] Mónica Portillo APRN, Kassandra.N.P., M.S. [address] [place] [phone] 05/29/2023 8:00 AM STATE'S ATTORNEY Office Visit Department of Community Internal Medicine in [place] [address] [place] [phone] Clover Delaney M.D. [address] [place] [phone] Discharge Disposition: Home or Self Care 05/29/2023 10:15 AM STATE'S ATTORNEY Appointment Department of Radiology, [facility], in [place], [place] [address] [place] [address] Mónica Portillo APRN, C.N.P., M.S. [address] [place] [phone] 05/29/2023 1:00 PM STATE'S ATTORNEY Procedure visit Department of Urology in [place], [place] [address] [place] [phone] Mónica Portillo APRN, C.N.P., M.S. [address] [place] [phone] 05/29/2023 3:00 PM STATE'S ATTORNEY Education Division of Nephrology and Hypertension in [place], [place] [address] [place] [phone] Mónica Portillo APRN, C.N.P., M.S. [address] [place] [phone] Snadeep Galicia R.N. [address] [place] [phone] 05/29/2023 4:00 PM STATE'S ATTORNEY Comprehensive Visit Division of Nephrology and Hypertension in [place], [place] [address] [place] [phone] Sera Casiano M.D., Ph.D. [address] [place] [phone] 06/15/2023 2:00 PM STATE'S ATTORNEY Ancillary Procedure Department of Ophthalmology in [place], [place] [address] [place] [phone] Justin Bunch M.D. [address] [place] [phone] 06/15/2023 2:30 PM STATE'S ATTORNEY Ancillary Procedure Department of Ophthalmology in [address] [phone] Justin Bunch M.D. [address] [place] [phone] 06/15/2023 2:45 PM STATE'S ATTORNEY Office Visit Department of Ophthalmology in [address] [phone] Justin Bunch M.D. 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 [address] [place] [phone] PCP - General Internal Medicine 11/23/17 documented as of this encounter
--- OUTSIDE RECORDS SUMMARY | 2023-05-11 02:11 | XMS_ITS | Encounter Summary ---
Author Name Unknown Organization [facility] Address [address] [place] [address] Care Team Providers Care Roving Department End Finder Name Role Phone Clover Delaney M.D. 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 [address] [place] [address] Rst Oph Ellen [address] [place] [address] Referral ID Status Reason Start Date Expiration Date V isits Requested Visits Authorized [id number] Authorized 03/06/2023 03/05/2024 3 3 Encounter Details Date Type Department Care Team (Latest Contact Info) Description 03/06/2023 1:45 PM MANUFACTURING SUPERVISOR Procedure visit Department of Ophthalmology in [place], [place] [address] [place] [phone] Jon Juarez M.D. [address] [place] [address] Diabetes Mellitus Type 2 With [...] any clubs o r organizations such as pentecostalism groups, unions, fraternal or athletic groups, or [...] Answer Date Recorded PHQ-2 Score 0 06/06/2022 [facility] - Occupational Stress Questionnaire [...] Sex Assigned at Male 05/13/2021 10:11 AM MANUFACTURING SUPERVISOR Gender Identity Male 11/02/2017 7:22 PM CDT Sexual Orientation Straight 11/02/2017 7: 22 PM CDT documented as of this encounter Plan of Treatment Upcoming Encounters Date Type Department Care Team (Latest Contact Info) Description 05/28/2023 10:00 AM MANUFACTURING SUPERVISOR Appointment Department of Laboratory Medicine in [place], [place] [address] [place] [address] Mónica Portillo APRN, C.N.P., M.S. [address] [place] [phone] 05/28/2023 10:10 AM MANUFACTURING SUPERVISOR Appointment Department of Laboratory Medicine in [place], [place] [address] [place] [address] [address] Mónica Portillo APRN, C.N.P., M.S. [address] [place] [phone] 05/29/2023 8:00 AM MANUFACTURING SUPERVISOR Office Visit Department of Community Internal Medicine in [place], [place] [address] [place] [address] Clover Delaney M.D. [address] [place] [phone] Discharge Disposition: Home or Self Care 05/29/2023 10:15 AM MANUFACTURING SUPERVISOR Appointment Department of Radiology, [facility], in [place], [place] [address] [place] [address] Mónica Portillo APRN, Kassandra.N.P., M.S. [address] [place] [phone] 05/29/2023 1:00 PM MANUFACTURING SUPERVISOR Procedure visit Department of Urology in [place], [place] [address] [place] [phone] Mónica Portillo APRN, C.N.P., M.S. [address] [place] [phone] 05/29/2023 3:00 PM MANUFACTURING SUPERVISOR Education Division of Nephrology and Hypertension in [place], [place] [address] [place] [phone] Mónica Portillo APRN, C.N.P., M.S. [address] [place] [phone] Sandeep Galicia R.N. [address] [place] [phone] 05/29/2023 4:00 PM MANUFACTURING SUPERVISOR Comprehensive Visit Division of Nephrology and Hypertension in [place], [place] [address] [place] [phone] Sera Casiano M.D., Ph.D. [address] [place] [phone] 06/15/2023 2:00 PM MANUFACTURING SUPERVISOR Ancillary Procedure Department of Ophthalmology in [place], [place] [address] [place] [phone] Justin Bunch M.D. [address] [place] [phone] 06/15/2023 2:30 PM MANUFACTURING SUPERVISOR Ancillary Procedure Department of Ophthalmology in [place], [place] [address] [place] [address] Justin Bunch M.D. [address] [place] [address] 06/15/2023 2:45 PM MANUFACTURING SUPERVISOR Office Visit Department of Ophthalmology in [place], [place] [address] [place] [address] Justin Bunch M.D. 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 [address] [place] [phone] PCP - General Internal Medicine 11/23/17 documented as of this encounter
--- OUTSIDE RECORDS SUMMARY | 2023-05-11 02:11 | XMS_ITS | Encounter Summary ---
Author Name Unknown Organization [facility] Address [address] [place] [address] Care Team Providers Care Kidney Trimmer Name Role Phone Clover Delaney M.D. Primary Care Provider [phone] Reason for Referral * Outpatient (Routine) - Closed Specialty Diagnoses / Procedures Referred By Yenny hunter Referred To Contact Nephrology and Hypertension Mónica Portillo APRN, C.NJosé LuisP., M.S. [address] [place] [phone] [facility] Referral ID Status Reason Start Date Expiration Date Visits Re quested Visits Authorized [id number] Closed 03/02/2023 03/01/2026 1 1 Scheduling Instructions Please coordinate labs with monthly CBC at [facility] and virtual follow up thanks E MAKER Reason for Visit * Reason Comments Chronic Kidney Disease * Outpatient (Routine) - Closed Specialty Diagnoses / Procedures Referred By Yenny hunter Referred To Contact Nephrology and Hypertension Mónica Portillo APRN, C.N.P., M.S. [address] [place] [phone] [facility] Referral ID Status Reason Start Date Expiration Date Visits Re quested Visits Authorized [id number] Closed 09/03/2022 09/02/2025 1 1 Encounter Details Date Type Department Care Team (Latest Contact Info) Description 03/02/2023 8:30 AM CABLE MAKER Telemedicine Division of Nephrology and Hypertension in [place], [place] [address] [place] [address] Mónica Portillo APRN C.N.P., M.S. [address] [place] [address] Hypertension And Chronic Kidney Disease Stage 5 [...] any clubs o r organizations such as latter day groups, unions, fraternal or athletic groups, or [...] Sex Assigned at Male 05/13/2021 10:11 AM CABLE MAKER Gender Identity Male 11/02/2017 7:22 PM CDT Sexual Orientation Straight 11/02/2017 7: 22 PM CDT documented as of this encounter Last Filed Vital Signs Vital Sign Reading Time Taken Comments Blood Pressure - - Pulse - - Temperature - - Respiratory Rate - - Oxygen Saturation - - Inhaled Oxygen Concentration - - Weight 152 kg (335 lb) 03/02/2023 8:22 AM CABLE MAKER narayan guzman reported Height - - Body Mass Index 48.5 03/31/2022 2:55 PM CABLE MAKER documented in this encounter Progress Notes * Móniac Portillo APRN, C.N.P., M.S. - 03/02/2023 8:30 AM CST SUBJECTIVE CHIEF COMPLAINT / REASON FOR VISIT Chief Complaint Patient presents with Chronic Kidney Disease Follow up conducted via real-time audio/video technology by Mónica Portillo APRN, C.N.P., M.S. in [facility] to the patient in Patient's Home HISTORY OF PRESENT ILLNESS Mr. Patel is a 77 y.o. 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 He [...] acidosis screening At goal without oral replacement. E MAKER documented in this encounter Plan of Treatment Upcoming Encounters Date Type Department Care Team (Latest Contact Info) Description 05/28/2023 10:00 AM CABLE MAKER Appointment Department of Laboratory Medicine in [place] [address] [place] [place] [address] Mónica Portillo APRN, Kassandra.N.P., M.S. [address] [place] [phone] 05/28/2023 10:10 AM CABLE MAKER Appointment Department of Laboratory Medicine in [place], [place] [address] [place] [place] [address] Mónica Portillo APRN, C.N.P., M.S. [address] [place] [phone] 05/29/2023 8:00 AM CABLE MAKER Office Visit Department of Community Internal Medicine in [place], [place] [address] [place] [address] Clover Delaney M.D. [address] [place] [address] Discharge Disposition: Home or Self Care 05/29/2023 10:15 AM CABLE MAKER Appointment Department of Radiology, [facility], in [place], [place] [address] [place] [phone] Mónica Portillo APRN, C.N.P., M.S. [address] [place] [phone] 05/29/2023 1:00 PM CABLE MAKER Procedure visit Department of Urology in [place], [place] [address] [place] [phone] Mónica Portillo APRN, C.N.P., M.S. [address] [place] [phone] 05/29/2023 3:00 PM CABLE MAKER Education Division of Nephrology and Hypertension in [place], [place] [address] [place] [phone] Mónica Portillo APRN, C.N.P., M.S. [address] [place] [phone] Sandeep Galicia R.N. [address] [place] [phone] 05/29/2023 4:00 PM CABLE MAKER Comprehensive Visit Division of Nephrology and Hypertension in [place], [place] [address] [place] [phone] Sera Casiano M.D., Ph.D. [address] [place] [phone] 06/15/2023 2:00 PM CABLE MAKER Ancillary Procedure Department of Ophthalmology in [place], [place] [address] [place] [phone] Justin Bunch M.D. [address] [place] [phone] 06/15/2023 2:30 PM CABLE MAKER Ancillary Procedure Department of Ophthalmology in [place], [place] [address] [place] [place] [phone] Justin Bunch M.D. [address] [place] [phone] 06/15/2023 2:45 PM CABLE MAKER Office Visit Department of Ophthalmology in [place], [place] [address] [place] [phone] Justin Bunch M.D. [address] [place] [phone] Scheduled Referrals Name Type Priority Associated Diagnoses Order Schedule Nephrology and Hypertension office visit (clinic) Outpatient Referral Routine Expected: 04/01/2023, Expires: 05/30/2024 documented as of this encounter Results * (ABNORMAL) Urinalysis with Microscopic: Urine, Midstream (03/30/2023 1:12 PM CABLE MAKER) Source Urine, Urine, Midstream 03/30/2023 1:12 PM CABLE MAKER CNFL Clarity Clear Clear 03/30/2023 1:15 PM CABLE MAKER CNFL Color Yellow 03/30/2023 1:15 PM CABLE MAKER CNFL Comment: ----REFERENCE VALUE---- Colorless Yellow Susana Blood Small(A) Negative 03/30/2023 1:15 PM CABLE MAKER CNFL Nitrite Negative Negative 03/30/2023 1:15 PM CABLE MAKER CNFL Leukocyte Esterase Negative Negative 03/30/2023 1:15 PM CABLE MAKER CNFL Protein >=300(A) mg/dL 03/30/2023 1:15 PM CABLE MAKER CNFL Comment: ----REFERENCE VALUE---- Negative Trace Glucose 100(A) Negative mg/dL 03/30/2023 1:15 PM CABLE MAKER CNFL Ketones, QI(U) Negative Negative mg/dL 03/30/2023 1:15 PM CABLE MAKER CNFL Bilirubin Negative Negative 03/30/2023 1:15 PM CABLE MAKER CNFL pH 5.5 5.0 - 8.0 03/30/2023 1:15 PM CABLE MAKER CNFL Specific Clare 1.020 1.001 - 1.035 03/30/2023 1:15 PM CABLE MAKER CNFL Urobilinogen 0.2 0.2 - 1.0 mg/dL 03/30/2023 1:15 PM CABLE MAKER CNFL White Blood Cells Occ-3 /hpf 03/30/2023 1:47 PM CABLE MAKER CNFL Comment: ----REFERENCE VALUE---- Males: 0-3 Females: 0-10 Unknown: 0-10 Red Blood Cells 3-10(A) 0 - 2 /hpf 1:47 PM CABLE MAKER CNFL Urine (Urine, Midstream) 03/30/2023 1:12 PM CABLE MAKER 03/30/2023 1:12 PM CABLE MAKER Mónica Portillo APRN C.N.P., M.S. LAB URINE ORDERABLES Performing Organization Address City/State/[facility] Co de Phone Number [facility] [address] [place] [address], [facility] CNFL [facility] [place] [address] * (ABNORMAL) Albumin, Random, Urine (03/30/2023 1:12 PM CABLE MAKER) Microalbumin 2148.9 mg/L 03/30/2023 1:47 PM CABLE MAKER CNFL Creatinine 31 mg/dL 03/30/2023 1:26 PM CABLE MAKER CNFL Albumin/Creatinin e Ratio 6932(H) <17 mg/g 03/30/2023 1:47 PM CABLE MAKER CNFL Urine (Urine, Midstream) 03/30/2023 1:12 PM CABLE MAKER 03/30/2023 1:12 PM CABLE MAKER Mónica Portillo APRN C.N.P., M.S. LAB URINE ORDERABLES Performing Organization Address [facility]/ZIP Co de Phone Number [facility] [address] [place] [address], [address] [address] * (ABNORMAL) Hemoglobin A1c (03/30/2023 12:21 PM CABLE MAKER) Hemoglobin A1c, B 6.8(H) 4.2 - 5.6 % 03/30/2023 12:36 PM CABLE MAKER CNFL Comment: Hemoglobin A1c values greater than or equal to 6.5 percent are diagnostic for diabetes mellitus. ??Diagnosis should be confirmed by repeat testing. ??In diabetic patients, HbA1c goals should be discussed with healthcare provider. Blood (Blood, Venous) 03/30/2023 12:21 PM CABLE MAKER 03/30/2023 12:23 PM CABLE MAKER Mónica Portillo APRN, C.N.P., M.S. LAB BLOOD ADD-ON Performing Organization Address City/[facility]/ZIP Co de Phone Number [facility] [address] [place] [phone], [facility] in [address] [address] * (ABNORMAL) Renal Function Panel (03/30/2023 12:21 PM CABLE MAKER) Potassium, P 5.0 3.6 - 5.2 mmol/L 03/30/2023 12:57 PM CABLE MAKER CNFL Sodium, P 140 135 - 145 mmol/L 03/30/2023 12:57 PM CABLE MAKER CNFL Chloride, P 105 98 - 107 mmol/L 03/30/2023 12:57 PM CABLE MAKER CNFL Bicarbonate, P 19(L) 22 - 29 mmol/L 03/30/2023 12:57 PM CABLE MAKER CNFL Anion Gap, P 16(H) 7 - 15 03/30/2023 12:57 PM CABLE MAKER CNFL BUN (Blood Urea Nitrogen), P 79(H) 8 - 24 mg/dL 03/30/2023 12:57 PM CABLE MAKER CNFL Creatinine 4.12(H) 0.74 - 1.35 mg/dL 03/30/2023 12:57 PM CABLE MAKER CNFL Estimated GFR (eGFR) <15(L) >=60 mL/min/BSA 03/30/2023 12:57 PM CABLE MAKER CNFL Comment: Estimated GFR calculated using the 2020 CKD_EPI creatinine equation. Calcium, Total, P 8.6(L) 8.8 - 10.2 mg/dL 03/30/2023 12:57 PM CABLE MAKER CNFL Glucose, P 167(H) 70 - 140 mg/dL 03/30/2023 12:57 PM CABLE MAKER CNFL Albumin, P 3.8 3.5 - 5.0 g/dL 03/30/2023 12:57 PM CABLE MAKER CNFL Phosphorus (Inorganic), P 7.3(H) 2.5 - 4.5 mg/dL 03/30/2023 12:57 PM CABLE MAKER CNFL Blood (Blood, Venous) 03/30/2023 12:21 PM CABLE MAKER 03/30/2023 12:23 PM CABLE MAKER Móniac Portillo APRN C.N.P., M.S. LAB BLOOD ADD-ON Performing Organization Address City/State/[facility] Co de Phone Number [facility] [address] [place] [address], [facility] CNFL [facility] [place] [address] * (ABNORMAL) CBC without Differential (03/30/2023 12:21 PM CABLE MAKER) Hemoglobin 9.9(L) 13.2 - 16.6 g/dL 03/30/2023 12:33 PM CABLE MAKER CNFL Hematocrit 30.9(L) 38.3 - 48.6 % 03/30/2023 12:33 PM CABLE MAKER CNFL Erythrocytes 3.26(L) 4.35 - 5.65 x10(12)/L 03/30/2023 12:33 PM CABLE MAKER CNFL MCV 94.8 78.2 - 97.9 fL 03/30/2023 12:33 PM CABLE MAKER CNFL RBC Distrib Width 14.4 11.8 - 14.5 % 03/30/2023 12:33 PM CABLE MAKER CNFL Platelet Count 182 135 - 317 x10(9)/L 03/30/2023 12:33 PM CABLE MAKER CNFL Leukocytes 10.0(H) 3.4 - 9.6 x10(9)/L 03/30/2023 12:33 PM CABLE MAKER CNFL Blood (Blood, Venous) 03/30/2023 12:21 PM CABLE MAKER 03/30/2023 12:23 PM CABLE MAKER Mónica Portillo APRN, C.N.P., M.S. LAB BLOOD ADD-ON [facility] [address] [place] [address], [facility] CNFL [facility] in [address] [address] documented in this encounter Visit Diagnoses Diagnosis Hypertension And Chronic Kidney Disease Stage 5 (HCC)- Primary Anemia Of Chronic Renal Disease documented in this encounter Additional Health Concerns Assessment Noted Time PHQ-9 Depression Total Score: 4 06/06/19 23 2:04 PM CABLE MAKER documented as of this encounter Care Teams Kidney Trimmer Relationship Specialty Start Date End Date Clover Delaney M.D. NPKatlin: [phone] [address] [place] [phone] PCP - General Internal Medicine 11/23/17 documented as of this encounter
--- OUTSIDE RECORDS SUMMARY | 2023-05-11 02:12 | XMS_ITS | Encounter Summary ---
Author Name Unknown Organization [facility] Address [address] [place] [address] Care Team Providers Care Credentialing Specialist Name Role Phone Clover Delaney M.D. Primary Care Provider [phone]- [phone] Reason for Visit * Reason Comments Med Refill Encounter Details Date Type Department Care Team (Late st Contact Info) Description 01/12/2023 Refill Division of Nephrology and Hypertension, [facility], in [place], [place] [address] [place] [phone] Mónica Portillo, TRIXIE, C.N.P., M.S. [address] [place] [phone] Med Refill Social History Tobacco Use Types [...] Answer Date Recorded PHQ-2 Score 0 06/06/2022 [facility] [...] Sex Assigned at Male 05/13/2021 10:11 AM CONSTRUCTION PLUMBER Gender Identity Male 11/02/2017 7:22 PM CDT [...] Patel has also started working with a assistant athletic trainer and having the increased dose of torsemide [...] (Latest Contact Info) Description 05/28/2023 10:00 AM CONSTRUCTION PLUMBER Appointment Department of Laboratory Medicine in [place] [address] [place] [place] [address] Mónica Portillo APRN, C.N.P., M.S. [address] [place] [phone] 05/28/2023 10:10 AM CONSTRUCTION PLUMBER Appointment Department of Laboratory Medicine in [place], [place] [address] [address] Mónica Portillo APRN, C.N.P., M.S. [address] [place] [phone] 05/29/2023 8:00 AM CONSTRUCTION PLUMBER Office Visit Department of Community Internal Medicine in [place], [place] [address] Clover Delaney M.D. [address] [place] [phone] Discharge Disposition: Home or Self Care 05/29/2023 10:15 AM CONSTRUCTION PLUMBER Appointment Department of Radiology, [facility], in [place], [place] [address] [place] [phone] Mónica Portillo APRN, C.N.P., M.S. [address] [place] [phone] 05/29/2023 1:00 PM CONSTRUCTION PLUMBER Procedure visit Department of Urology in [place], [place] [address] [place] [phone] Mónica Portillo APRN, C.N.P., M.S. [address] [place] [phone] 05/29/2023 3:00 PM CONSTRUCTION PLUMBER Education Division of Nephrology and Hypertension in [place], [place] [address] [place] [phone] Mónica Portillo APRN, C.N.P., M.S. [address] [place] [phone] Sandeep Galicia R.N. [address] [place] [phone] 05/29/2023 4:00 PM CONSTRUCTION PLUMBER Comprehensive Visit Division of Nephrology and Hypertension in [place], [place] [address] [place] [phone] Sera Casiano M.D., Ph.D. [address] [place] [phone] 06/15/2023 2:00 PM CONSTRUCTION PLUMBER Ancillary Procedure Department of Ophthalmology in [place], [place] [address] [place] [address] Justin Bunch M.D. [address] [place] [phone] 06/15/2023 2:30 PM CONSTRUCTION PLUMBER Ancillary Procedure Department of Ophthalmology in [place], [place] [address] [place] [phone] Justin Bunch M.D. [address] [place] [phone] 06/15/2023 2:45 PM CONSTRUCTION PLUMBER Office Visit Department of Ophthalmology in [place], [place] [address] [place] [phone] Justin Bunch M.D. [address] [place] [phone] documented as of this encounter Visit Diagnoses Not on filedocumented in this encounter Additional Health Concerns Assessment Noted Time PHQ-9 Depression Total Score: 4 06/06/19 23 2:04 PM CONSTRUCTION PLUMBER documented as of this encounter Care Teams Credentialing Specialist Relationship Specialty Start Date End Date Clover Delaney M.D. [address] [place] [phone] PCP - General Internal Medicine 11/23/17 documented as of this encounter
--- OUTSIDE RECORDS SUMMARY | 2023-05-11 02:12 | XMS_ITS | Encounter Summary ---
Author Name Unknown Organization [facility] Address [address] [place] [address] Care Team Providers Care Instructional Support Services Director Name Role Phone Clover Delaney M.D. Primary Care Provider [phone] Reason for Visit * Reason Comments Outpatient Infusion * Episode Based Medications (Routine) - Closed Specialty Diagnoses / Procedures Referred By Contanthony t Referred To Contact Diagnoses Anemia Of Chronic Renal Disease Anemia Iron Deficiency Procedures SD FERUMOXYTOL NON-ESRD Mónica Portillo APRN, C.N.P., M.S. [address] [place] [phone] [facility] Region Referral ID Status Reason Start Date Expiration Date Visits Re quested Visits Authorized [id number] Closed 09/18/2022 09/18/2023 2 2 Encounter Details Date Type Department Care Team (Late st Contact Info) Description 11/28/2022 12:00 PM CDT Infusion Department of Infusion Therapy in [address] [phone] Mónica Portillo APRN, C.N.P., M.S. [address] [place] [phone] Anemia Of Chronic Renal Disease (Primary Dx); [...] Answer Date Recorded PHQ-2 Score 0 06/06/2022 [facility] - Occupational Stress Questionnaire Answer Date Recorded [...] Sex Assigned at Male 05/13/2021 10:11 AM PREVOCATIONAL/REHABILITATION COUNSELOR Gender Identity Male 11/02/2017 7:22 PM CDT [...] (Latest Contact Info) Description 05/28/2023 10:00 AM PREVOCATIONAL/REHABILITATION COUNSELOR Appointment Department of Laboratory Medicine in [place], [place] [address] [place] [address] [phone] Mónica Portillo APRN, C.N.P., M.S. [address] [place] [phone] 05/28/2023 10:10 AM PREVOCATIONAL/REHABILITATION COUNSELOR Appointment Department of Laboratory Medicine in [place], [place] [address] [place] [address] [phone] Mónica Portillo APRN, C.N.P., M.S. [address] [place] [phone] 05/29/2023 8:00 AM PREVOCATIONAL/REHABILITATION COUNSELOR Office Visit Department of Community Internal Medicine in [address] [place] [phone] Clover Delaney M.D. [address] [place] [phone] Discharge Disposition: Home or Self Care 05/29/2023 10:15 AM PREVOCATIONAL/REHABILITATION COUNSELOR Appointment Department of Radiology, [facility], in [place], [place] [address] [place] [address] Mónica Portillo APRN, C.N.P., M.S. [address] [place] [phone] 05/29/2023 1:00 PM PREVOCATIONAL/REHABILITATION COUNSELOR Procedure visit Department of Urology in [place], [place] [address] [place] [phone] Mónica Portillo APRN, C.N.P., M.S. [address] [place] [phone] 05/29/2023 3:00 PM PREVOCATIONAL/REHABILITATION COUNSELOR Education Division of Nephrology and Hypertension in [place], [place] [address] [place] [phone] Mónica Portillo APRN, C.N.P., M.S. [address] [place] [phone] Sandeep Galicia R.N. [address] [place] [phone] 05/29/2023 4:00 PM PREVOCATIONAL/REHABILITATION COUNSELOR Comprehensive Visit Division of Nephrology and Hypertension in [place], [place] [address] [place] [phone] Sera Casiano M.D., Ph.D. [address] [place] [phone] 06/15/2023 2:00 PM PREVOCATIONAL/REHABILITATION COUNSELOR Ancillary Procedure Department of Ophthalmology in [place], [place] [address] [place] [phone] Justin Bunch M.D. [address] [place] [phone] 06/15/2023 2:30 PM PREVOCATIONAL/REHABILITATION COUNSELOR Ancillary Procedure Department of Ophthalmology in [place], [place] [address] [place] [phone] Justin Bunch M.D. [address] [place] [phone] 06/15/2023 2:45 PM PREVOCATIONAL/REHABILITATION COUNSELOR Office Visit Department of Ophthalmology in [place], [place] [address] [place] [phone] Justin Bunch M.D. [address] [place] [phone] documented as of this encounter Visit Diagnoses [...] Depression Total Score: 4 06/06/19 2:04 PM PREVOCATIONAL/REHABILITATION COUNSELOR documented as of this encounter Care Teams Instructional Support Services Director Relationship Specialty Start Date End Date Clover Delaney M.D. [address] [place] [phone] PCP - General Internal Medicine 7/30/18 documented as of this encounter
--- OUTSIDE RECORDS SUMMARY | 2023-05-11 02:12 | XMS_ITS | Encounter Summary ---
Author Name Unknown Organization [facility] Address [address] [place] [address] Care Team Providers Care Distribution Sales Manager Name Role Phone Clover Delaney M.D. Primary Care Provider [phone] Reason for Visit * Reason Onset Date Comments phone call 01/15/2023 Encounter Details Date Type Department Care Team (Late st Contact Info) Description 01/15/2023 Clinical Communication Division of Nephrology and Hypertension, [facility], in [place], [place] [address] [place] [phone] Mónica Portillo, TRIXIE, C.N.P., M.S. [address] [place] [phone] phone call Social History Tobacco Use Types [...] Answer Date Recorded PHQ-2 Score 0 06/06/2022 [facility] of Occupat ional Health - Occupational Stress [...] Sex Assigned at Male 05/13/2021 10:11 AM CLIENT PROJECT COORDINATOR Gender Identity Male 11/02/2017 7:22 PM CDT Sexual Orientation Straight 11/02/2017 7: 22 PM CDT documented as of this encounter Plan of Treatment Upcoming Encounters Date Type Department Care Team (Latest Contact Info) Description 05/28/2023 10:00 AM CLIENT PROJECT COORDINATOR Appointment Department of Laboratory Medicine in [place] [address] [place] [phone] Mónica Portillo APRN, C.N.P., M.S. [address] [place] [phone] 05/28/2023 10:10 AM CLIENT PROJECT COORDINATOR Appointment Department of Laboratory Medicine in [place], [place] [address] [place] [address] [phone] Mónica Portillo APRN, C.N.P., M.S. [address] [place] [phone] 05/29/2023 8:00 AM CLIENT PROJECT COORDINATOR Office Visit Department of Community Internal Medicine in [place] [address] [place] [phone] Clover Delaney M.D. [address] [place] [phone] Discharge Disposition: Home or Self Care 05/29/2023 10:15 AM CLIENT PROJECT COORDINATOR Appointment Department of Radiology, [facility], in [place], [place] [address] [place] [phone] Mónica Portillo APRN, C.N.P., M.S. [address] [place] [phone] 05/29/2023 1:00 PM CLIENT PROJECT COORDINATOR Procedure visit Department of Urology in [place], [place] [address] [place] [phone] Mónica Portillo APRN, Kassandra.N.P., M.S. [address] [place] [phone] 05/29/2023 3:00 PM CLIENT PROJECT COORDINATOR Education Division of Nephrology and Hypertension in [place], [place] [address] [place] [phone] Mónica Portillo APRN, C.N.P., M.S. [address] [place] [phone] Sandeep Galicia R.N. [address] [place] [phone] 05/29/2023 4:00 PM CLIENT PROJECT COORDINATOR Comprehensive Visit Division of Nephrology and Hypertension in [place], [place] [address] [place] [phone] Sera Casiano M.D., Ph.D. [address] [place] [phone] 06/15/2023 2:00 PM CLIENT PROJECT COORDINATOR Ancillary Procedure Department of Ophthalmology in [place], [place] [address] [place] [phone] Justin Bunch M.D. [address] [place] [phone] 06/15/2023 2:30 PM CLIENT PROJECT COORDINATOR Ancillary Procedure Department of Ophthalmology in [address] [phone] Justin Bunch M.D. [address] [place] [phone] 06/15/2023 2:45 PM CLIENT PROJECT COORDINATOR Office Visit Department of Ophthalmology in [address] [phone] Justin Bunch M.D. [address] [place] [phone] documented as of this encounter Visit Diagnoses Not on filedocumented in this encounter Additional Health Concerns Assessment Noted Time PHQ-9 Depression Total Score: 4 06/06/19 23 2:04 PM CLIENT PROJECT COORDINATOR documented as of this encounter Care Teams Distribution Sales Manager Relationship Specialty Start Date End Date Clover Delaney M.D. [address] [place] [phone] PCP - General Internal Medicine 11/23/17 documented as of this encounter
--- OUTSIDE RECORDS SUMMARY | 2023-05-11 02:12 | XMS_ITS | Encounter Summary ---
Author Name Unknown Organization [facility] Address [address] [place] [address] Care Team Providers Care Food Production Associate Name Role Phone Clover Delaney M.D. 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 200 [place] [phone] [facility] Region Referral ID Status Reason Start Date Expiration Date V isits Requested Visits Authorized [id number] Pending Review 09/03/2022 09/03/2023 12 12 Encounter Details Date Type Department Care Team (Latest Contact Info) Description 11/28/2022 11:35 AM CDT - 11/28/2022 11:59 PM CDT Hospital Encounter Department of Laboratory Medicine in [address] [phone] Mónica Portillo APRN, C.N.P., M.S. [address] [place] [phone] (work) Anemia Of Chronic Renal Disease Discharge [...] How often do you attend chur or latter day services? Never 07/28/2022 Do you belong to any clubs o r organizations such as islam groups, unions, fraternal or athletic groups, or [...] Answer Date Recorded PHQ-2 Score 0 06/06/2022 [employer] of Occupat ional Health - Occupational Stress [...] Assigned at Male 05/13/2021 10:11 AM MACHINE LAY OUT WORKER Gender Identity Male 11/02/2017 7:22 PM [...] mouth as needed. 0 miscellaneous medical supply [facility] [...] 0 Refill(s) 0 10/20/2016 miscellaneous medical [facility] Head Gear for CPAP Machine See Instructions, fax to patient at [phone], 1 each 0 01/17/2014 MULTIVITAMIN ORAL Daily Multiple Vitamins See Instructions, Take 1 tablet by mouth daily. 0 07/23/2013 multivitamin-eye (PRESERVISION LUTEIN) 226 mg-90 mg-5 mg-0.8 mg capsule Take 2 capsules by mouth daily. 0 ONETOUCH DELICA LANCETS 33 gauge [facility] 3 08/02/2018 OneTouch Ultra Test stripsIndications:Diabe daquan [...] Injection daily. 100 each 3 04/07/2022 05/08/2023 torsemide (DEMADEX) 20 mg tablet TAKE ONE TABLET BY MOUTH ONE TIME DAILY 90 tablet 3 09/03/2022 01/16/2023 documented as of this encounter Plan of Treatment Upcoming Encounters Date Type Department Care Team (Latest Contact Info) Description 05/28/2023 10:00 AM MACHINE LAY OUT WORKER Appointment Department of Laboratory Medicine in [place] [address] [place] [phone] Mónica Portillo APRN, C.N.P., M.S. [address] [place] [phone] 05/28/2023 10:10 AM MACHINE LAY OUT WORKER Appointment Department of Laboratory Medicine in [place], [place] [address] [place] [address] [phone] Mónica Portillo APRN, C.N.P., M.S. [address] [place] [phone] 05/29/2023 8:00 AM MACHINE LAY OUT WORKER Office Visit Department of Community Internal Medicine in [place], [place] [address] [place] [address] [phone] Clover Delaney M.D. [address] [place] [phone] Discharge Disposition: Home or Self Care 05/29/2023 10:15 AM MACHINE LAY OUT WORKER Appointment Department of Radiology, [facility], in [place], [place] [address] [place] [phone] Mónica Portillo APRN, C.N.P., M.S. [address] [place] [phone] 05/29/2023 1:00 PM MACHINE LAY OUT WORKER Procedure visit Department of Urology in [place], [place] [address] [place] [phone] Mónica Portillo APRN, Kassandra.N.P., M.S. [address] [place] [phone] 05/29/2023 3:00 PM MACHINE LAY OUT WORKER Education Division of Nephrology and Hypertension in [place], [place] [address] [place] [phone] Mónica Portillo APRN, C.N.P., M.S. [address] [place] [phone] Sandeep Galicia R.Garima [address] [place] [phone] 05/29/2023 4:00 PM MACHINE LAY OUT WORKER Comprehensive Visit Division of Nephrology and Hypertension in [place], [place] [address] [place] [phone] Sera Casiano M.D., Ph.D. [address] [place] [phone] 06/15/2023 2:00 PM MACHINE LAY OUT WORKER Ancillary Procedure Department of Ophthalmology in [place], [place] [address] [place] [phone] Justin Bunch M.D. [address] [place] [phone] 06/15/2023 2:30 PM MACHINE LAY OUT WORKER Ancillary Procedure Department of Ophthalmology in [place], [place] [address] [place] [phone] Justin Bunch M.D. [address] [place] [phone] 06/15/2023 2:45 PM MACHINE LAY OUT WORKER Office Visit Department of Ophthalmology in [place], [place] [address] [place] [phone] Justin Bunch M.D. [address] [place] [phone] documented as of this encounter Procedures Procedure Name Priority Date/Time Associated Diagnosis Comments CBC WITH DIFFERENTIAL, B Routine 11/28/2022 11:45 AM CDT Anemia Of Chronic Renal Disease documented in this encounter Results * (ABNORMAL) CBC with Differential, Blood (11/28/2022 11:45 AM CDT) Hemoglobin 9.6(L) 13.2 - 16.6 g/dL 11/28/2022 [...] M.S. LAB BLOOD ADD-ON Performing Organization Address City/State/[facility] Co de Phone Number [facility] [address] [place] [address], [facility] CNFL [facility] in [address] [address] documented in this encounter Visit Diagnoses Diagnosis Anemia Of Chronic Renal Disease documented in this encounter Additional Health Concerns Assessment Noted Time PHQ-9 Depression Total Score: 4 06/06/19 23 2:04 PM MACHINE LAY OUT WORKER documented as of this encounter Care Teams Food Production Associate Relationship Specialty Start Date End Date Clover Delaney M.D. [address] [place] [phone] PCP - General Internal Medicine 11/23/17 documented as of this encounter
--- OUTSIDE RECORDS SUMMARY | 2023-05-11 02:12 | XMS_ITS | Encounter Summary ---
Author Name Unknown Organization [facility] Address [address] [place] [address] Care Team Providers Care Equestrian Trainer Name Role Phone Clover Delaney M.D. Primary Care Provider [phone]- [phone] Reason for Visit * Episode Based Medications (Routine) - Pending Review Specialty Diagnoses / Procedures Referred By Contanthony t Referred To Contact Diagnoses Malignant Neoplasm Of Transverse Colon (HCC) Anemia Of Chronic Renal Disease Procedures IN DARBEPOETIN SHER, NON-ESRD IN DARBEPOETIN SHER, ESRD USE Mónica Portillo APRN, C.N.P., M.S. 200 [place] [phone] [facility] Region Referral ID Status Reason Start Date Expiration Date V isits Requested Visits Authorized [id number] Pending Review 09/03/2022 09/03/2023 12 12 Encounter Details Date Type Department Care Team (Latest Contact Info) Description 01/06/2023 10:19 AM CDT - 01/06/2023 11:59 PM CDT Hospital Encounter Department of Laboratory Medicine in [address] [phone] Mónica Portillo APRN, C.N.P., M.S. [address] [place] [phone] (work) Anemia Of Chronic Renal Disease Discharge [...] How often do you attend chur or lutheran services? Never 07/28/2022 Do you [...] Date Recorded PHQ-2 Score 0 06/06/2022 [facility] of Occupat ional Health - Occupational [...] Sex Assigned at Male 05/13/2021 10:11 AM HEALTHCARE EDUCATOR Gender Identity Male 11/02/2017 7:22 PM CDT [...] needed. 0 miscellaneous medical supply [facility] CPAP Supplies See Instructions, CPAP machine, mask 1 ea x 4 refills, headgear 1 ea x 2 refills, tubing 1 ea x 4 refills, filters 2 ea per month, tub 1 ea x 2 refills, mask seal 1 ea x 2 refills DX G47.33, length of need 99, 1 each, 0 Refill(s) 0 10/20/2016 miscellaneous medical supply [facility] Head Gear for CPAP Machine See Instructions, fax to patient at [phone], 1 each 0 01/17/2014 MULTIVITAMIN ORAL Daily Multiple Vitamins See Instructions, Take 1 tablet by mouth daily. 0 07/23/2013 multivitamin-eye (PRESERVISION LUTEIN) 226 mg-90 mg-5 mg-0.8 mg capsule Take 2 capsules by mouth daily. 0 ONETOUCH DELICA LANCETS 33 gauge [facility] 3 08/02/2018 OneTouch Ultra Test stripsIndications:Diabe daquan [...] (Latest Contact Info) Description 05/28/2023 10:00 AM HEALTHCARE EDUCATOR Appointment Department of Laboratory Medicine in [place] [address] [place] [phone] Mónica Portillo APRN, C.N.P., M.S. [address] [place] [phone] 05/28/2023 10:10 AM HEALTHCARE EDUCATOR Appointment Department of Laboratory Medicine in [place], [place] [address] [place] [phone] Mónica Portillo APRN, C.N.P., M.S. [address] [place] [phone] 05/29/2023 8:00 AM HEALTHCARE EDUCATOR Office Visit Department of Community Internal Medicine in [place], [place] [address] [place] [phone] Clover Delaney M.D. [address] [place] [phone] Discharge Disposition: Home or Self Care 05/29/2023 10:15 AM HEALTHCARE EDUCATOR Appointment Department of Radiology, [facility], in [place], [place] [address] [place] [phone] Mónica Portillo APRN, C.N.P., M.S. [address] [place] [phone] 05/29/2023 1:00 PM HEALTHCARE EDUCATOR Procedure visit Department of Urology in [place], [place] [address] [place] [phone] Mónica Portillo APRN, Kassandra.N.P., M.S. [address] [place] [phone] 05/29/2023 3:00 PM HEALTHCARE EDUCATOR Education Division of Nephrology and Hypertension in [place], [place] [address] [place] [phone] Mónica Portillo APRN, C.N.P., M.S. [address] [place] [phone] Sandeep Galicia R.Garima [address] [place] [phone] 05/29/2023 4:00 PM HEALTHCARE EDUCATOR Comprehensive Visit Division of Nephrology and Hypertension in [place], [place] [address] [place] [phone] Sera Casiano M.D., Ph.D. [address] [place] [phone] 06/15/2023 2:00 PM HEALTHCARE EDUCATOR Ancillary Procedure Department of Ophthalmology in [place], [place] [address] [place] [phone] Justin Bunch M.D. [address] [place] [phone] 06/15/2023 2:30 PM HEALTHCARE EDUCATOR Ancillary Procedure Department of Ophthalmology in [place], [place] [address] [place] [phone] Justin Bunch M.D. [address] [place] [phone] 06/15/2023 2:45 PM HEALTHCARE EDUCATOR Office Visit Department of Ophthalmology in [place], [place] [address] [place] [phone] Justin Bunch M.D. [address] [place] [phone] documented as of this encounter Procedures Procedure Name Priority Date/Time Associated Diagnosis Comments CBC WITH DIFFERENTIAL, B Routine 01/06/2023 10:24 AM CDT Anemia Of Chronic Renal Disease documented in this encounter Results * (ABNORMAL) CBC with Differential, Blood (01/06/2023 10:24 AM CDT) Hemoglobin 10.1(L) 13.2 - 16.6 g/dL 01/06/2023 [...] Portillo APRN, C.N.P., M.S. LAB BLOOD ADD-ON [facility] [address] [place] [address], [facility] CNFL [facility] in [address] [address] documented in this encounter Visit Diagnoses Diagnosis Anemia Of Chronic Renal Disease documented in this encounter Additional Health Concerns Assessment Noted Time PHQ-9 Depression Total Score: 4 06/06/19 23 2:04 PM HEALTHCARE EDUCATOR documented as of this encounter Care Teams Equestrian Trainer Relationship Specialty Start Date End Date Clover Delaney M.D. [address] [place] [phone] PCP - General Internal Medicine 11/23/17 documented as of this encounter
--- OUTSIDE RECORDS SUMMARY | 2023-05-11 02:12 | XMS_ITS | Encounter Summary ---
Author Name Unknown Organization [facility] Address [address] [place] [address] Care Team Providers Care Homogenizer Operator Name Role Phone Clover Delaney M.D. Primary Care Provider +1- [phone] Encounter Details Date Type Department Care Team (Latest Contact Info) Description 02/26/2023 8:59 AM CDT - 02/26/2023 11:59 PM CDT Hospital Encounter Department of Laboratory Medicine in [address] [place] [phone] Mónica Portillo, TRIXIE, C.N.P., M.S. [address] [place] [phone] Chronic Kidney Disease Stage 4 Glomerular Filtration [...] any clubs o r organizations such as evangelical groups, unions, fraternal or athletic groups, or [...] Answer Date Recorded PHQ-2 Score 0 06/06/2022 [facility] [place] of Occupat ional Health - Occupational Stress [...] Sex Assigned at Male 05/13/2021 10:11 AM VEHICLE CONTROLS ENGINEER Gender Identity Male 11/02/2017 7:22 PM [...] mouth as needed. 0 miscellaneous medical supply [facility] CPAP Supplies See Instructions, CPAP machine, mask 1 ea x 4 refills, headgear 1 ea x 2 refills, tubing 1 ea x 4 refills, filters 2 ea per month, tub 1 ea x 2 refills, mask seal 1 ea x 2 refills DX G47.33, length of need 99, 1 each, 0 Refill(s) 0 10/20/2016 miscellaneous medical supply [facility] Head Gear for CPAP Machine See Instructions, fax to patient at [phone], 1 each 0 01/17/2014 MULTIVITAMIN ORAL Daily Multiple Vitamins See Instructions, Take 1 tablet by mouth daily. 0 07/23/2013 multivitamin-eye (PRESERVISION LUTEIN) 226 mg-90 mg-5 mg-0.8 mg capsule Take 2 capsules by mouth daily. 0 ONETOUCH DELICA LANCETS 33 gauge [facility] 3 08/02/2018 OneTouch Ultra Test stripsIndications:Diabe daquan [...] (Latest Contact Info) Description 05/28/2023 10:00 AM VEHICLE CONTROLS ENGINEER Appointment Department of Laboratory Medicine in [place], [place] [address] [place] [address] Mónica Portillo APRN, C.N.P., M.S. [address] [place] [phone] 05/28/2023 10:10 AM VEHICLE CONTROLS ENGINEER Appointment Department of Laboratory Medicine in [place], [place] [address] [place] [phone] Mónica Portillo APRN, C.N.P., M.S. [address] [place] [phone] 05/29/2023 8:00 AM VEHICLE CONTROLS ENGINEER Office Visit Department of Community Internal Medicine in [place] [address] [place] [phone] Clover Delaney M.D. [address] [place] [phone] Discharge Disposition: Home or Self Care 05/29/2023 10:15 AM VEHICLE CONTROLS ENGINEER Appointment Department of Radiology, [facility], in [place], [place] [address] [place] [phone] Mónica Portillo APRN, Kassandra.N.P., M.S. [address] [place] [phone] 05/29/2023 1:00 PM VEHICLE CONTROLS ENGINEER Procedure visit Department of Urology in [place], [place] [address] [place] [phone] Mónica Portillo APRN, C.N.P., M.S. [address] [place] [phone] 05/29/2023 3:00 PM VEHICLE CONTROLS ENGINEER Education Division of Nephrology and Hypertension in [place], [place] [address] [place] [phone] Mónica Portillo APRN, C.N.P., M.S. [address] [place] [phone] Sandeep Galicia R.N. [address] [place] [phone] 05/29/2023 4:00 PM VEHICLE CONTROLS ENGINEER Comprehensive Visit Division of Nephrology and Hypertension in [place], [place] [address] [place] [phone] Sera Casiano M.D., Ph.D. [address] [place] [phone] 06/15/2023 2:00 PM VEHICLE CONTROLS ENGINEER Ancillary Procedure Department of Ophthalmology in [place], [place] [address] [place] [phone] Justin Bunch M.D. [address] [place] [phone] 06/15/2023 2:30 PM VEHICLE CONTROLS ENGINEER Ancillary Procedure Department of Ophthalmology in [address] [phone] Justin Bunch M.D. [address] [place] [phone] 06/15/2023 2:45 PM VEHICLE CONTROLS ENGINEER Office Visit Department of Ophthalmology in [address] [phone] Justin Bunch M.D. [address] [place] [phone] documented as of this encounter Procedures Procedure [...] Comment: Biotin has been identified by the pit tanner as a potential interfering substance. Higher concentrations of biotin may be found in multivitamins, hair/nail supplements, and workout supplements. If the result does not match clinical observations, repeat testing after patient refrains from the use of supplements for at least 12 hours. Blood (Blood, Venous) 02/26/2023 9:14 AM CDT 02/26/2023 11:45 AM CDT Mónica Portillo APRN, C.N.P., M.S. LAB BLOOD ADD-ON [facility] [address] [place] [address], [facility] [place] [address] * (ABNORMAL) Iron and Total Iron-Binding Capacity [...] Portillo APRN, C.N.P., M.S. LAB BLOOD ADD-ON [facility] [address] [place] [address], [facility] in [address] [phone] * (ABNORMAL) Ferritin (02/26/2023 9:14 AM CDT) Ferritin, S 533(H) 31 - 409 mcg/L 02/26/2023 12:18 PM CDT [facility] Comment: Biotin has been identified by the pit tanner as a potential interfering substance. Higher concentrations of biotin may be found in multivitamins, hair/nail supplements, and workout supplements. If the result does not match clinical observations, repeat testing after patient refrains from the use of supplements for at least 12 hours. Blood (Blood, Venous) 02/26/2023 9:14 AM CDT 02/26/2023 11:45 AM CDT Mónica Portillo APRN, C.N.P., M.S. LAB BLOOD ADD-ON [facility] [address] [place] [address], [facility] [place] [address] [facility] [address] * (ABNORMAL) Renal Function Panel (02/26/2023 9:14 AM CDT) [facility] Potassium, P 4.2 3.6 - 5.2 mmol/L [...] Portillo APRN, C.N.P., M.S. LAB BLOOD ADD-ON [facility] [address] [facility] [address], [facility] [place] [address] [place] [address] * (ABNORMAL) CBC without Differential (02/26/2023 9:14 AM CDT) [facility] Hemoglobin 9.2(L) 13.2 - 16.6 g/dL 02/26/2023 [...] Drew Couch APRNNTaylor., M.S. LAB BLOOD ADD-ON [facility] [place] [facility] [address] [address], 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 [address] [place] [address] PCP - General Internal Medicine 11/23/17 documented as of this encounter
--- OUTSIDE RECORDS SUMMARY | 2023-05-11 02:12 | XMS_ITS | Encounter Summary ---
Author Name Unknown Organization [facility] Address [address] [place] [address] Care Team Providers Care Aircraft Structure Mechanic Name Role Phone Clover Delaney M.D. Primary Care Provider +1- [phone] Reason for Visit * Reason Comments Injections aranesp * Episode Based Medications (Routine) - Pending Review Specialty Diagnoses / Procedures Referred By Yenny t Referred To Contact Diagnoses Malignant Neoplasm Of Transverse Colon (HCC) Anemia Of Chronic Renal Disease Procedures [place] DARBEPOETIN KERRI, NON-ESRD [place] DARBEPOETIN KERRI, ESRD USE Mónica Portillo APRN, C.N.P., M.S. [address] [place] [phone] [facility] Region Referral ID Status Reason Start Date Expiration Date V isits Requested Visits Authorized [id number] Pending Review 09/03/2022 09/03/2023 12 12 Encounter Details Date Type Department Care Team (Late st Contact Info) Description 01/06/2023 10:30 AM CDT Infusion Department of Infusion Therapy in [address] [phone] Mónica Portillo APRN, C.N.P., M.S. [address] [place] [phone] Anemia Of Chronic Renal Disease (Primary Dx) [...] any clubs o r organizations such as yazidism groups, unions, fraternal or athletic groups, or [...] Answer Date Recorded PHQ-2 Score 0 06/06/2022 [facility] of Occupat ional Health - Occupational [...] Assigned at Male 05/13/2021 10:11 AM WINDOWS DESKTOP ENGINEER Gender Identity Male 11/02/2017 7:22 PM [...] Contact Info) Description 05/28/2023 10:00 AM WINDOWS DESKTOP ENGINEER Appointment Department of Laboratory Medicine in [place] [address] [place] [address] Mónica Portillo APRN, C.N.P., M.S. [address] [place] [phone] 05/28/2023 10:10 AM WINDOWS DESKTOP ENGINEER Appointment Department of Laboratory Medicine in [place], [place] [address] [place] [phone] Mónica Portillo APRN, C.N.P., M.S. [address] [place] [phone] 05/29/2023 8:00 AM WINDOWS DESKTOP ENGINEER Office Visit Department of Community Internal Medicine in [place], [place] [address] [place] [address] Clover Delaney M.D. [address] [place] [phone] Discharge Disposition: Home or Self Care 05/29/2023 10:15 AM WINDOWS DESKTOP ENGINEER Appointment Department of Radiology, [facility], in [place], [place] [address] [place] [address] Mónica Portillo APRN, C.N.P., M.S. [address] [place] [phone] 05/29/2023 1:00 PM WINDOWS DESKTOP ENGINEER Procedure visit Department of Urology in [place], [place] [address] [place] [phone] Mónica Portillo APRN, C.N.P., M.S. [address] [place] [phone] 05/29/2023 3:00 PM WINDOWS DESKTOP ENGINEER Education Division of Nephrology and Hypertension in [place], [place] [address] [place] [phone] Mónica Portillo APRN, C.N.P., M.S. [address] [place] [phone] Sandeep Galicia R.N. [address] [place] [phone] 05/29/2023 4:00 PM WINDOWS DESKTOP ENGINEER Comprehensive Visit Division of Nephrology and Hypertension in [place], [place] [address] [place] [phone] Sera Casiano M.D., Ph.D. [address] [place] [phone] 06/15/2023 2:00 PM WINDOWS DESKTOP ENGINEER Ancillary Procedure Department of Ophthalmology in [place], [place] [address] [place] [phone] Justin Bunch M.D. [address] [place] [phone] 06/15/2023 2:30 PM WINDOWS DESKTOP ENGINEER Ancillary Procedure Department of Ophthalmology in [place], [place] [address] [place] [phone] Justin Bunch M.D. [address] [place] [phone] 06/15/2023 2:45 PM WINDOWS DESKTOP ENGINEER Office Visit Department of Ophthalmology in [place], [place] [address] [place] [phone] Justin Bunch M.D. [address] [place] [phone] documented as of this encounter Visit Diagnoses [...] Score: 4 06/06/19 23 2:04 PM WINDOWS DESKTOP ENGINEER documented as of this encounter Care Teams Aircraft Structure Mechanic Relationship Specialty Start Date End Date Clover Delaney M.D. [address] [place] [phone] PCP - General Internal Medicine 11/23/17 documented as of this encounter
--- OUTSIDE RECORDS SUMMARY | 2023-05-11 02:12 | XMS_ITS | Encounter Summary ---
Author Name Unknown Organization [facility] Address [address] [place] [address] Care Team Providers Care Industrial Economist Name Role Phone Clover Delaney M.D. Primary Care Provider +1 [phone] Reason for Referral * Outpatient (Routine) - Closed Specialty Diagnoses / Procedures Referred By Yenny t Referred To Contact Ophthalmology Jon Juarez M.D. [address] [place] [address] [facility] Referral ID Status Reason Start Date Expiration Date Visits Re quested Visits Authorized [id number] Closed 01/19/2023 01/18/2026 1 1 Encounter Details Date Type Department Care Team (Latest Contact Info) Description 01/19/2023 11:00 AM CDT Office Visit Department of Ophthalmology in [place], [place] [address] [place] [phone] Jon Juarez M.D. [address] [place] [phone] Diabetes Mellitus Type 2 With Proliferative Diabetic [...] PHQ-2 Score 0 06/06/2022 [facility] [place] of Occupat ional Health - Occupational Stress [...] Sex Assigned at Male 05/13/2021 10:11 AM DENTURES LAB TECHNICIAN Gender Identity Male 11/02/2017 7:22 PM [...] (Latest Contact Info) Description 05/28/2023 10:00 AM DENTURES LAB TECHNICIAN Appointment Department of Laboratory Medicine in [place] [address] [place] [address] Mónica Portillo APRN, C.N.P., M.S. [address] [place] [phone] 05/28/2023 10:10 AM DENTURES LAB TECHNICIAN Appointment Department of Laboratory Medicine in [place], [place] [address] [place] [address] Mónica Portillo APRN, C.N.P., M.S. [address] [place] [phone] 05/29/2023 8:00 AM DENTURES LAB TECHNICIAN Office Visit Department of Community Internal Medicine in [place] [address] [place] [address] Clover Delaney M.D. [address] [place] [phone] Discharge Disposition: Home or Self Care 05/29/2023 10:15 AM DENTURES LAB TECHNICIAN Appointment Department of Radiology, [facility], in [place], [place] [address] [place] [phone] Mónica Portillo APRN, C.N.P., M.S. [address] [place] [phone] 05/29/2023 1:00 PM DENTURES LAB TECHNICIAN Procedure visit Department of Urology in [place], [place] [address] [place] [address] Mónica Portillo APRN, C.N.P., M.S. [address] [place] [phone] 05/29/2023 3:00 PM DENTURES LAB TECHNICIAN Education Division of Nephrology and Hypertension in [place], [place] [address] [place] [phone] Mónica Portillo APRN, CJosé LuisN.P., M.S. [address] [place] [phone] Sandeep Galicia R.N. [address] [place] [phone] 05/29/2023 4:00 PM DENTURES LAB TECHNICIAN Comprehensive Visit Division of Nephrology and Hypertension in [place], [place] [address] [place] [phone] Sera Casiano M.D., Ph.D. [address] [place] [phone] 06/15/2023 2:00 PM DENTURES LAB TECHNICIAN Ancillary Procedure Department of Ophthalmology in [place], [place] [address] [place] [phone] Justin Bunch M.D. [address] [place] [phone] 06/15/2023 2:30 PM DENTURES LAB TECHNICIAN Ancillary Procedure Department of Ophthalmology in [address] [phone] Justin Bunch M.D. [address] [place] [phone] 06/15/2023 2:45 PM DENTURES LAB TECHNICIAN Office Visit Department of Ophthalmology in [address] [phone] Justin Bunch M.D. [address] [place] [phone] Scheduled Referrals Name Type Priority Associated Diagnoses Order Schedule Ophthalmology office visit (clinic) Outpatient Referral Routine Expected: 02/18/2023 (Approximate), Expires: 04/20/2024 documented as of this encounter Results * Optical Coherence Tomography (OCT) - Macula/Retina - OU - Both Eyes (03/06/2023 4:28 PM DENTURES LAB TECHNICIAN) Narrative OPHTHALMOLOGY IMAGING EXAM - 03/06/2023 4:28 PM DENTURES LAB TECHNICIAN See interpretation in note section Jon Juarez M.D. OPHPAT TOMOGRAP HY Performing Organization Address [facility] Co de Phone Number OPHTHALMOLOGY IMAGING EXAM * Fluorescein Angiography - OU - Both Eyes (03/06/2023 4:27 PM DENTURES LAB TECHNICIAN) Narrative OPHTHALMOLOGY IMAGING EXAM - 03/06/2023 4:27 PM DENTURES LAB TECHNICIAN Pt declined Jon ARITA PHOTOGRA PHY Performing Organization Address [facility] Co de Phone Number OPHTHALMOLOGY [...] Total Score: 4 06/06/19 23 2:04 PM DENTURES LAB TECHNICIAN documented as of this encounter Care Teams Industrial Economist Relationship Specialty Start Date End Date Clover Delaney M.D. [address] [place] [address] PCP - General Internal Medicine 11/23/17 documented as of this encounter
--- OUTSIDE RECORDS SUMMARY | 2023-05-11 02:12 | XMS_ITS | Encounter Summary ---
Author Name Unknown Organization [facility] Address [address] [place] [address] Care Team Providers Care Beet Topper Name Role Phone Clover Delaney M.D. Primary Care Provider +1- [phone] Reason for Visit * Reason Comments Med Refill Encounter Details Date Type Department Care Team (Late st Contact Info) Description 02/05/2023 Refill Department of Ophthalmology in [place], [place] [address] [place] [phone] Jon Juarez M.D. [address] [place] [phone] Med Refill Social History Tobacco Use Types [...] any clubs o r organizations such as jew groups, unions, fraternal or athletic groups, or [...] Answer Date Recorded PHQ-2 Score 0 06/06/2022 [facility] [place] of Occupat ional Health - Occupational Stress [...] Assigned at Male 05/13/2021 10:11 AM MANAGER MAIL Gender Identity Male 11/02/2017 7:22 PM CDT Sexual Orientation Straight 11/02/2017 7: 22 PM CDT documented as of this encounter Plan of Treatment Upcoming Encounters Date Type Department Care Team (Latest Contact Info) Description 05/28/2023 10:00 AM MANAGER MAIL Appointment Department of Laboratory Medicine in [place] [address] [place] [phone] Mónica Portillo APRN, Kassandra.N.P., M.S. [address] [place] [phone] 05/28/2023 10:10 AM MANAGER MAIL Appointment Department of Laboratory Medicine in [place] [address] [place] [address] Mónica Portillo APRN, Kassandra.N.P., M.S. [address] [place] [phone] 05/29/2023 8:00 AM MANAGER MAIL Office Visit Department of Community Internal Medicine in [place] [address] [place] [phone] Clover Delaney M.D. [address] [place] [phone] Discharge Disposition: Home or Self Care 05/29/2023 10:15 AM MANAGER MAIL Appointment Department of Radiology, [facility], in [place], [place] [address] [place] [phone] Mónica Portillo APRN, Kassandra.N.P., M.S. [address] [place] [phone] 05/29/2023 1:00 PM MANAGER MAIL Procedure visit Department of Urology in [place], [place] [address] [place] [phone] Mónica Portillo APRN, Kassandra.N.P., M.S. [address] [place] [phone] 05/29/2023 3:00 PM MANAGER MAIL Education Division of Nephrology and Hypertension in [place], [place] [address] [place] [phone] Mónica Portillo APRN, C.N.P., M.S. [address] [place] [phone] Sandeep Galicia R.N. [address] [place] [phone] 05/29/2023 4:00 PM MANAGER MAIL Comprehensive Visit Division of Nephrology and Hypertension in [place], [place] [address] [place] [phone] Sera Casiano M.D., Ph.D. [address] [place] [phone] 06/15/2023 2:00 PM MANAGER MAIL Ancillary Procedure Department of Ophthalmology in [place], [place] [address] [place] [phone] Justin Bunch M.D. [address] [place] [phone] 06/15/2023 2:30 PM MANAGER MAIL Ancillary Procedure Department of Ophthalmology in [address] [phone] Justin Bunch M.D. [address] [place] [phone] 06/15/2023 2:45 PM MANAGER MAIL Office Visit Department of Ophthalmology in [address] [phone] Justin Bunch M.D. [address] [place] [phone] documented as of this encounter Visit Diagnoses Not on filedocumented in this encounter Additional Health Concerns Assessment Noted Time PHQ-9 Depression Total Score: 4 06/06/19 23 2:04 PM MANAGER MAIL documented as of this encounter Care Teams Beet Topper Relationship Specialty Start Date End Date Clover Delaney M.D. [address] [place] [phone] PCP - General Internal Medicine 11/23/17 documented as of this encounter
--- OUTSIDE RECORDS SUMMARY | 2023-05-11 02:12 | XMS_ITS | Encounter Summary ---
Author Name Unknown Organization [facility] Address [address] [place] [address] Care Team Providers Care Supervisor [place] Name Role Phone Clover Delaney M.D. Primary Care Provider +1- [phone] Reason for Visit * Reason Comments Med Refill Encounter Details Date Type Department Care Team (Late st Contact Info) Description 11/06/2022 Refill Department of Ophthalmology in [place], [place] [address] [place] [phone] Jon Juarez M.D. [address] [place] [address] Med Refill Social History Tobacco Use Types [...] Answer Date Recorded PHQ-2 Score 0 06/06/2022 [facility] [place] of Occupat ional Health - Occupational Stress [...] Sex Assigned at Male 05/13/2021 10:11 AM CONTACT ASSEMBLER Gender Identity Male 11/02/2017 7:22 PM CDT Sexual Orientation Straight 11/02/2017 7: 22 PM CDT documented as of this encounter Miscellaneous Notes * Telephone Encounter - Cari Butcher - 11/06/2022 10:28 AM CDT Please send to [facility] documented in this encounter Plan of Treatment Upcoming Encounters Date Type Department Care Team (Latest Contact Info) Description 05/28/2023 10:00 AM CONTACT ASSEMBLER Appointment Department of Laboratory Medicine in [place], [place] [address] [place] [address] Mónica Portillo APRN, C.N.P., M.S. [address] [place] [phone] 05/28/2023 10:10 AM CONTACT ASSEMBLER Appointment Department of Laboratory Medicine in [place], [place] [address] [place] [address] Mónica Portillo APRN, C.N.P., M.S. [address] [place] [phone] 05/29/2023 8:00 AM CONTACT ASSEMBLER Office Visit Department of Community Internal Medicine in [place], [place] [address] [place] [address] Clover Delaney M.D. [address] [place] [phone] Discharge Disposition: Home or Self Care 05/29/2023 10:15 AM CONTACT ASSEMBLER Appointment Department of Radiology, [facility], in [place], [place] [address] [place] [phone] Mónica Portillo APRN, C.N.P., M.S. [address] [place] [phone] 05/29/2023 1:00 PM CONTACT ASSEMBLER Procedure visit Department of Urology in [place], [place] [address] [place] [phone] Mónica Portillo APRN, Kassandra.N.P., M.S. [address] [place] [phone] 05/29/2023 3:00 PM CONTACT ASSEMBLER Education Division of Nephrology and Hypertension in [place], [place] [address] [place] [phone] Mónica Portillo APRN, C.NTaylor., M.S. [address] [place] [phone] Sandeep Galicia R.N. [address] [place] [phone] 05/29/2023 4:00 PM CONTACT ASSEMBLER Comprehensive Visit Division of Nephrology and Hypertension in [place], [place] [address] [place] [phone] Sera Casiano M.D., Ph.D. [address] [place] [phone] 06/15/2023 2:00 PM CONTACT ASSEMBLER Ancillary Procedure Department of Ophthalmology in [place], [place] [address] [place] [phone] Justin Bunch M.D. [address] [place] [phone] 06/15/2023 2:30 PM CONTACT ASSEMBLER Ancillary Procedure Department of Ophthalmology in [place], [place] [address] [place] [phone] Justin Bunch M.D. [address] [place] [phone] 06/15/2023 2:45 PM CONTACT ASSEMBLER Office Visit Department of Ophthalmology in [place], [place] [address] [place] [phone] Justin Bunch M.D. [address] [place] [phone] documented as of this encounter Visit Diagnoses Not on filedocumented in this encounter Additional Health Concerns Assessment Noted Time PHQ-9 Depression Total Score: 4 06/06/19 23 2:04 PM CONTACT ASSEMBLER documented as of this encounter Care Teams Supervisor [place] Relationship Specialty Start Date End Date Clover Delaney M.D. [address] [place] [phone] PCP - General Internal Medicine 11/23/17 documented as of this encounter
--- OUTSIDE RECORDS SUMMARY | 2023-05-11 02:12 | XMS_ITS | Encounter Summary ---
Author Name Unknown Organization [facility] Address [address] [place] [address] Care Team Providers Care Sawmill Hand Name Role Phone Clover Delaney M.D. Primary Care Provider +1- [phone] Encounter Details Date Type Department Care Team (Latest Contact Info) Description 01/19/2023 Clinical Communication Department of Ophthalmology in [place], [place] [address] [place] [address] Provider, Unknown Social History Tobacco Use Types [...] any clubs o r organizations such as episcopalian groups, unions, fraternal or athletic groups, or [...] Answer Date Recorded PHQ-2 Score 0 06/06/2022 [facility] - Occupational Stress Questionnaire Answer Date [...] Assigned at Male 05/13/2021 10:11 AM ASSEMBLER ERECTOR Gender Identity Male 11/02/2017 7:22 PM CDT [...] with you to send to our on-call Nurse'S Assistant to determine if we are able to [...] you followed by an eye doctor at [facility]? Dr. Bunch Do you see anyone regularly for eye exams? NO What is the best phone number to reach you at? [phone] If our provider would like to see you, about how long would it take to get to [facility]?1.5 hours Request taken by Yennifer documented in this encounter Plan of Treatment Upcoming Encounters Date Type Department Care Team (Latest Contact Info) Description 05/28/2023 10:00 AM ASSEMBLER ERECTOR Appointment Department of Laboratory Medicine in [place], [place] [address] [place] [phone] Mónica Portillo, TRIXIE, C.N.P., M.S. [address] [place] [address] 05/28/2023 10:10 AM ASSEMBLER ERECTOR Appointment Department of Laboratory Medicine in [place], [place] [address] [place] [address] Mónica Portillo APRN, C.N.P., M.S. [address] [place] [phone] 05/29/2023 8:00 AM ASSEMBLER ERECTOR Office Visit Department of Community Internal Medicine in [place], [place] [address] [place] [address] Clover Delaney M.D. [address] [place] [phone] Discharge Disposition: Home or Self Care 05/29/2023 10:15 AM ASSEMBLER ERECTOR Appointment Department of Radiology, [facility], in [place], [place] [address] [place] [phone] Mónica Portillo APRN, C.N.P., M.S. [address] [place] [phone] 05/29/2023 1:00 PM ASSEMBLER ERECTOR Procedure visit Department of Urology in [place], [place] [address] [place] [phone] Mónica Portillo APRN, Kassandra.N.P., M.S. [address] [place] [phone] 05/29/2023 3:00 PM ASSEMBLER ERECTOR Education Division of Nephrology and Hypertension in [place], [place] [address] [place] [phone] Mónica Portillo APRN, C.N.P., M.S. [address] [place] [phone] Sandeep Galicia R.N. [address] [place] [phone] 05/29/2023 4:00 PM ASSEMBLER ERECTOR Comprehensive Visit Division of Nephrology and Hypertension in [place], [place] [address] [place] [phone] Sera Casiano M.D., Ph.D. [address] [place] [phone] 06/15/2023 2:00 PM ASSEMBLER ERECTOR Ancillary Procedure Department of Ophthalmology in [place], [place] [address] [place] [phone] Justin Bunch M.D. [address] [place] [phone] 06/15/2023 2:30 PM ASSEMBLER ERECTOR Ancillary Procedure Department of Ophthalmology in [place], [place] [address] [place] [phone] Justin Bunch M.D. [address] [place] [phone] 06/15/2023 2:45 PM ASSEMBLER ERECTOR Office Visit Department of Ophthalmology in [place], [place] [address] [place] [phone] Justin Bunch M.D. [address] [place] [phone] documented as of this encounter Visit Diagnoses Not on filedocumented in this encounter Additional Health Concerns Assessment Noted Time PHQ-9 Depression Total Score: 4 06/06/19 23 2:04 PM ASSEMBLER ERECTOR documented as of this encounter Care Teams Sawmill Hand Relationship Specialty Start Date End Date Clover Delaney M.D. [address] [place] [phone] PCP - General Internal Medicine 11/23/17 documented as of this encounter
--- OUTSIDE RECORDS SUMMARY | 2023-05-11 02:13 | XMS_ITS | Encounter Summary ---
Author Name Unknown Organization [facility] Address [address] [place] [address] Care Team Providers Care Patient Information Coordinator Name Role Phone Clover Delaney M.D. Primary Care Provider +1- [phone] Reason for Visit * Reason Comments Injections aranesp * Episode Based Medications (Routine) - Pending Review Specialty Diagnoses / Procedures Referred By Yenny t Referred To Contact Diagnoses Malignant Neoplasm Of Transverse Colon (HCC) Anemia Of Chronic Renal Disease Procedures FL DARBEPOETIN KERRI, NON-ESRD FL DARBEPOETIN KERRI, ESRD USE Mónica Portillo APRN, C.N.P., M.S. [address] [place] [phone] [facility] Region Referral ID Status Reason Start Date Expiration Date V isits Requested Visits Authorized [id number] Pending Review 09/03/2022 09/03/2023 12 12 Encounter Details Date Type Department Care Team (Late st Contact Info) Description 10/03/2022 12:00 PM CDT Infusion Department of Infusion Therapy in [address] [phone] Mónica Portillo APRN, C.N.P., M.S. [address] [place] [phone] Anemia Of Chronic Renal Disease (Primary Dx) [...] Sex Assigned at Male 05/13/2021 10:11 AM SERVICES REP Gender Identity Male 11/02/2017 7:22 PM CDT [...] (Latest Contact Info) Description 05/28/2023 10:00 AM SERVICES REP Appointment Department of Laboratory Medicine in [place] [address] [place] [address] Mónica Portillo APRN, C.N.P., M.S. [address] [place] [phone] 05/28/2023 10:10 AM SERVICES REP Appointment Department of Laboratory Medicine in [place], [place] [address] [place] [address] Mónica Portillo APRN, C.N.P., M.S. [address] [place] [phone] 05/29/2023 8:00 AM SERVICES REP Office Visit Department of Community Internal Medicine in [place], [place] [address] [place] [address] Clover Delaney M.D. 701 [place] [address] Discharge Disposition: Home or Self Care 05/29/2023 10:15 AM SERVICES REP Appointment Department of Radiology, [facility] in [place], [place] [address] [place] [address] Mónica Portillo APRN, C.N.P., M.S. [address] [place] [phone] 05/29/2023 1:00 PM SERVICES REP Procedure visit Department of Urology in [place], [place] [address] [place] [phone] Mónica Portillo APRN, C.N.P., M.S. [address] [place] [phone] 05/29/2023 3:00 PM SERVICES REP Education Division of Nephrology and Hypertension in [place], [place] [address] [place] [phone] Mónica Portillo APRN, C.N.P., M.S. [address] [place] [phone] Sandeep Galicia R.N. [address] [place] [phone] 05/29/2023 4:00 PM SERVICES REP Comprehensive Visit Division of Nephrology and Hypertension in [place], [place] [address] [place] [phone] Sera Casiano M.D., Ph.D. [address] [place] [phone] 06/15/2023 2:00 PM SERVICES REP Ancillary Procedure Department of Ophthalmology in [place], [place] [address] [place] [address] Justin Bunch M.D. [address] [place] [phone] 06/15/2023 2:30 PM SERVICES REP Ancillary Procedure Department of Ophthalmology in [place], [place] [address] [place] [phone] Justin Bunch M.D. [address] [place] [phone] 06/15/2023 2:45 PM SERVICES REP Office Visit Department of Ophthalmology in [place], [place] [address] [place] [phone] Justin Bunch M.D. [address] [place] [phone] documented as of this encounter Visit Diagnoses [...] Depression Total Score: 4 06/06/19 2:04 PM SERVICES REP documented as of this encounter Care Teams Patient Information Coordinator Relationship Specialty Start Date End Date Clover Delaney M.D. [address] [place] [phone] PCP - General Internal Medicine 11/23/17 documented as of this encounter
--- OUTSIDE RECORDS SUMMARY | 2023-05-11 02:13 | XMS_ITS | Encounter Summary ---
Author Name Unknown Organization [facility] Address [address] [place] [address] Care Team Providers Care Accounting Analyst Name Role Phone Clover Delaney M.D. Primary Care Provider +1- [phone] Encounter Details Date Type Department Care Team (Late st Contact Info) Description 09/08/2022 Orders Only Department of Ophthalmology in [place], [place] [address] [place] [address] Justin Bunch M.D. 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 [...] any clubs o r organizations such as faith groups, unions, fraternal or athletic groups, or [...] Answer Date Recorded PHQ-2 Score 0 06/06/2022 [facility] of Occupat ional Health - Occupational Stress [...] Sex Assigned at Male 05/13/2021 10:11 AM PARK ATTENDANT Gender Identity Male 11/02/2017 7:22 PM CDT Sexual Orientation Straight 11/02/2017 7: 22 PM CDT documented as of this encounter Plan of Treatment Upcoming Encounters Date Type Department Care Team (Latest Contact Info) Description 05/28/2023 10:00 AM PARK ATTENDANT Appointment Department of Laboratory Medicine in [place], [place] [address] [place] [address] Mónica Portillo APRN, C.N.P., M.S. [address] [place] [phone] 05/28/2023 10:10 AM PARK ATTENDANT Appointment Department of Laboratory Medicine in [place], [place] [address] [place] [address] Mónica Portillo APRN, C.N.P., M.S. [address] [place] [phone] 05/29/2023 8:00 AM PARK ATTENDANT Office Visit Department of Community Internal Medicine in [place] [address] [place] [address] [phone] Clover Delaney M.D. [address] [place] [phone] Discharge Disposition: Home or Self Care 05/29/2023 10:15 AM PARK ATTENDANT Appointment Department of Radiology, [facility], in [place], [place] [address] [place] [phone] Mónica Portillo APRN, C.N.P., M.S. [address] [place] [phone] 05/29/2023 1:00 PM PARK ATTENDANT Procedure visit Department of Urology in [place], [place] [address] [place] [phone] Mónica Portillo APRN, C.N.P., M.S. [address] [place] [phone] 05/29/2023 3:00 PM PARK ATTENDANT Education Division of Nephrology and Hypertension in [place], [place] [address] [place] [phone] Mónica Portillo APRN, C.NJosé LuisP., M.S. [address] [place] [phone] Sandeep Galicia R.N. [address] [place] [phone] 05/29/2023 4:00 PM PARK ATTENDANT Comprehensive Visit Division of Nephrology and Hypertension in [place], [place] [address] [place] [phone] Sera Casiano M.D., Ph.D. [address] [place] [phone] 06/15/2023 2:00 PM PARK ATTENDANT Ancillary Procedure Department of Ophthalmology in [place], [place] [address] [place] [phone] Justin Bunch M.D. [address] [place] [phone] 06/15/2023 2:30 PM PARK ATTENDANT Ancillary Procedure Department of Ophthalmology in [address] [phone] Justin Bunch M.D. [address] [place] [phone] 06/15/2023 2:45 PM PARK ATTENDANT Office Visit Department of Ophthalmology in [address] [phone] Justin Bunch M.D. 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 [address] [place] [phone] PCP - General Internal Medicine 11/23/17 documented as of this encounter
--- OUTSIDE RECORDS SUMMARY | 2023-05-11 02:13 | XMS_ITS | Encounter Summary ---
Author Name Unknown Organization [facility] Address [address] [place] [address] Care Team Providers Care Hand Inspector Name Role Phone Clover Delaney M.D. Primary Care Provider +1- [phone] Reason for Visit * Episode Based Medications (Routine) - Pending Review Specialty Diagnoses / Procedures Referred By Contanthony t Referred To Contact Diagnoses Malignant Neoplasm Of Transverse Colon (HCC) Anemia Of Chronic Renal Disease Procedures RI DARBEPOETIN SHER, NON-ESRD RI DARBEPOETIN SHER, ESRD USE Mónica Portillo APRN, C.N.P., M.S. 200 [place] [address] [facility] Region Referral ID Status Reason Start Date Expiration Date V isits Requested Visits Authorized [id number] Pending Review 09/03/2022 09/03/2023 12 12 Encounter Details Date Type Department Care Team (Latest Contact Info) Description 10/03/2022 11:30 AM CDT - 10/03/2022 11:59 PM CDT Hospital Encounter Department of Laboratory Medicine in [address] [phone] Mónica Portillo APRN, C.N.P., M.S. [address] [place] [phone] (work) Anemia Of Chronic Renal Disease Discharge [...] How often do you attend chur or hinduism services? Never 07/28/2022 Do you [...] Answer Date Recorded PHQ-2 Score 0 06/06/2022 [facility] of Occupat ional Health - Occupational [...] Sex Assigned at Male 05/13/2021 10:11 AM ADDICTION PSYCHIATRIST Gender Identity Male 11/02/2017 7:22 PM CDT [...] Machine See Instructions, fax to patient at [phone], 1 each 0 01/17/2014 MULTIVITAMIN ORAL Daily Multiple Vitamins See Instructions, Take 1 tablet by mouth daily. 0 07/23/2013 multivitamin-eye (PRESERVISION LUTEIN) 226 mg-90 mg-5 mg-0.8 mg capsule Take 2 capsules by mouth daily. 0 ONETOUCH DELICA LANCETS 33 gauge [facility] 3 08/02/2018 OneTouch Ultra Test stripsIndications:Diab etes Mellitus Type 2 (HCC) Use to test once daily 100 strip 3 12/31/2021 UltiCare Pen Needle 31 gauge x 1/4 [...] Injection daily. 100 each 3 04/07/2022 05/08/2023 prednisoLONE acetate (PRED FORTE) 1 % ophthalmic [...] (Latest Contact Info) Description 05/28/2023 10:00 AM ADDICTION PSYCHIATRIST Appointment Department of Laboratory Medicine in [place] [address] [place] [address] Mónica Portillo APRN, C.N.P., M.S. [address] [place] [phone] 05/28/2023 10:10 AM ADDICTION PSYCHIATRIST Appointment Department of Laboratory Medicine in [place], [place] [address] [place] [address] Mónica Portillo APRN, C.N.P., M.S. [address] [place] [phone] 05/29/2023 8:00 AM ADDICTION PSYCHIATRIST Office Visit Department of Community Internal Medicine in [place], [place] [address] [place] [address] Clover Delaney M.D. [address] [place] [phone] Discharge Disposition: Home or Self Care 05/29/2023 10:15 AM ADDICTION PSYCHIATRIST Appointment Department of Radiology, [facility], in [place], [place] [address] [place] [phone] Mónica Portillo APRN, C.N.P., M.S. [address] [place] [phone] 05/29/2023 1:00 PM ADDICTION PSYCHIATRIST Procedure visit Department of Urology in [place], [place] [address] [place] [phone] Mónica Portillo APRN, Kassandra.N.P., M.S. [address] [place] [phone] 05/29/2023 3:00 PM ADDICTION PSYCHIATRIST Education Division of Nephrology and Hypertension in [place], [place] [address] [place] [phone] Mónica Portillo APRN, C.NTaylor., M.S. [address] [place] [phone] Sandeep Galicia R.N. [address] [place] [phone] 05/29/2023 4:00 PM ADDICTION PSYCHIATRIST Comprehensive Visit Division of Nephrology and Hypertension in [place], [place] [address] [place] [phone] Sera Casiano M.D., Ph.D. [address] [place] [phone] 06/15/2023 2:00 PM ADDICTION PSYCHIATRIST Ancillary Procedure Department of Ophthalmology in [place], [place] [address] [place] [phone] Justin Bunch M.D. [address] [place] [phone] 06/15/2023 2:30 PM ADDICTION PSYCHIATRIST Ancillary Procedure Department of Ophthalmology in [place], [place] [address] [place] [phone] Justin Bunch M.D. [address] [place] [phone] 06/15/2023 2:45 PM ADDICTION PSYCHIATRIST Office Visit Department of Ophthalmology in [place], [place] [address] [place] [phone] Justin Bunch M.D. [address] [place] [phone] documented as of this encounter Procedures Procedure [...] Portillo APRN, C.N.P., M.S. LAB BLOOD ADD-ON [facility] [address] [place] [address], [facility] in [address] [address] documented in this encounter Visit Diagnoses Diagnosis Anemia Of Chronic Renal Disease documented in this encounter Additional Health Concerns Assessment Noted Time PHQ-9 Depression Total Score: 4 06/06/19 23 2:04 PM ADDICTION PSYCHIATRIST documented as of this encounter Care Teams Hand Inspector Relationship Specialty Start Date End Date Clover Delaney M.D. [address] [place] [phone] PCP - General Internal Medicine 11/23/17 documented as of this encounter
--- OUTSIDE RECORDS SUMMARY | 2023-05-11 02:13 | XMS_ITS | Encounter Summary ---
Author Name Unknown Organization [facility] Address [address] [place] [address] Care Team Providers Care Tailing Hand Name Role Phone Clover Delaney M.D. Primary Care Provider +1- [phone] Encounter Details Date Type Department Care Team (Late st Contact Info) Description 10/01/2022 Orders Only [facility] PCP [facility] NAVT Clover Delaney M.D. [address] [place] [address] Social History Tobacco Use [...] How often do you attend chur or roman catholic services? Never 07/28/2022 Do you belong to any clubs o r organizations such as buddhism groups, unions, fraternal or athletic groups, or [...] 0 06/06/2022 [facility] of Occupat ional Health - Occupational Stress [...] Sex Assigned at Male 05/13/2021 10:11 AM RUBBER TURNER Gender Identity Male 11/02/2017 7:22 PM CDT Sexual Orientation Straight 11/02/2017 7: 22 PM CDT documented as of this encounter Plan of Treatment Upcoming Encounters Date Type Department Care Team (Latest Contact Info) Description 05/28/2023 10:00 AM RUBBER TURNER Appointment Department of Laboratory Medicine in [place] [address] [place] [address] Mónica Portillo APRN, Kassandra.N.P., M.S. [address] [place] [phone] 05/28/2023 10:10 AM RUBBER TURNER Appointment Department of Laboratory Medicine in [place], [place] [address] [place] [address] Mónica Portillo APRN, C.N.P., M.S. [address] [place] [phone] 05/29/2023 8:00 AM RUBBER TURNER Office Visit Department of Community Internal Medicine in [place], [place] [address] [place] [address] Clover Delaney M.D. [address] [place] [phone] Discharge Disposition: Home or Self Care 05/29/2023 10:15 AM RUBBER TURNER Appointment Department of Radiology, [facility], in [place], [place] [address] [place] [phone] Mónica Portillo APRN, Kassandra.N.P., M.S. [address] [place] [phone] 05/29/2023 1:00 PM RUBBER TURNER Procedure visit Department of Urology in [place], [place] [address] [place] [phone] Mónica Portillo APRN, Kassandra.N.P., M.S. [address] [place] [phone] 05/29/2023 3:00 PM RUBBER TURNER Education Division of Nephrology and Hypertension in [place], [place] [address] [place] [phone] Mónica Portillo APRN, Kassandra.N.P., M.S. [address] [place] [phone] Sandeep Galicia R.N. [address] [place] [phone] 05/29/2023 4:00 PM RUBBER TURNER Comprehensive Visit Division of Nephrology and Hypertension in [place], [place] [address] [place] [phone] Sera Casiano M.D., Ph.D. [address] [place] [phone] 06/15/2023 2:00 PM RUBBER TURNER Ancillary Procedure Department of Ophthalmology in [address] [phone] Justin Bunch M.D. [address] [place] [phone] 06/15/2023 2:30 PM RUBBER TURNER Ancillary Procedure Department of Ophthalmology in [address] [phone] Justin Bunch M.D. [address] [place] [phone] 06/15/2023 2:45 PM RUBBER TURNER Office Visit Department of Ophthalmology in [address] [phone] Justin Bunch M.D. [address] [place] [phone] documented as of this encounter Visit Diagnoses Not on filedocumented in this encounter Additional Health Concerns Assessment Noted Time PHQ-9 Depression Total Score: 4 06/06/19 23 2:04 PM RUBBER TURNER documented as of this encounter Care Teams Tailing Hand Relationship Specialty Start Date End Date Clover Delaney M.D. [address] [place] [phone] PCP - General Internal Medicine 11/23/17 documented as of this encounter
--- OUTSIDE RECORDS SUMMARY | 2023-05-11 02:13 | XMS_ITS | Encounter Summary ---
Author Name Unknown Organization [facility] Address [address] [place] [address] Care Team Providers Care Pattern Chart Writer Name Role Phone Clover Delaney M.D. Primary Care Provider +1- [phone] Encounter Details Date Type Department Care Team [...] Sex Assigned at Male 05/13/2021 10:11 AM STOVE FITTER Gender Identity Male 11/02/2017 7:22 PM CDT Sexual Orientation Straight 11/02/2017 7: 22 PM CDT documented as of this encounter Plan of Treatment Upcoming Encounters Date Type Department Care Team (Latest Contact Info) Description 05/28/2023 10:00 AM STOVE FITTER Appointment Department of Laboratory Medicine in [address] [place] [address] Mónica Portillo APRN, C.N.P., M.S. [address] [place] [phone] 05/28/2023 10:10 AM STOVE FITTER Appointment Department of Laboratory Medicine in [place], [place] [address] [place] [phone] Mónica Portillo APRN, C.N.P., M.S. [address] [place] [phone] 05/29/2023 8:00 AM STOVE FITTER Office Visit Department of Community Internal Medicine in [place], [place] [address] [place] [phone] Clover Delaney M.D. [address] [place] [phone] Discharge Disposition: Home or Self Care 05/29/2023 10:15 AM STOVE FITTER Appointment Department of Radiology, [facility], in [place], [place] [address] [place] [phone] Mónica Portillo APRN, C.N.P., M.S. [address] [place] [phone] 05/29/2023 1:00 PM STOVE FITTER Procedure visit Department of Urology in [place], [place] [address] [place] [phone] Mónica Portillo APRN, C.N.P., M.S. [address] [place] [phone] 05/29/2023 3:00 PM STOVE FITTER Education Division of Nephrology and Hypertension in [place], [place] [address] [place] [phone] Mónica Portillo APRN, C.N.P., M.S. [address] [place] [phone] Sandeep Galicia R.N. [address] [place] [phone] 05/29/2023 4:00 PM STOVE FITTER Comprehensive Visit Division of Nephrology and Hypertension in [place], [place] [address] [place] [phone] Sera Casiano M.D., Ph.D. [address] [place] [phone] 06/15/2023 2:00 PM STOVE FITTER Ancillary Procedure Department of Ophthalmology in [place], [place] [address] [place] [phone] Justin Bunch M.D. [address] [place] [phone] 06/15/2023 2:30 PM STOVE FITTER Ancillary Procedure Department of Ophthalmology in [place], [place] [address] [place] [phone] Justin Bunch M.D. [address] [place] [phone] 06/15/2023 2:45 PM STOVE FITTER Office Visit Department of Ophthalmology in [place], [place] [address] [place] [phone] Justin Bunch M.D. [address] [place] [phone] documented as of this encounter Procedures Procedure Name Priority Date/Time Associated Diagnosis Comments OPHTHALMOLOGY IMAGE EXAM Routine 09/08/2022 12:00 AM CDT documented in this encounter Results * Eyes Spectralis OCT-Ophthalmology Image Exam (09/08/2022 12:00 AM CDT) Narrative IINE - 09/08/2022 4:02 PM CDT This order [...] Total Score: 4 06/06/19 23 2:04 PM STOVE FITTER documented as of this encounter Care Teams Pattern Chart Writer Relationship Specialty Start Date End Date Clover Delaney M.D. [address] [place] [address] PCP - General Internal Medicine 11/23/17 documented as of this encounter
--- OUTSIDE RECORDS SUMMARY | 2023-05-11 02:13 | XMS_ITS | Encounter Summary ---
Author Name Unknown Organization [facility] Address [address] [place] [address] Care Team Providers Care Biostatistics Director Name Role Phone Clover Delaney M.D. Primary Care Provider +1- [phone] Reason for Visit * Reason Comments Med Refill Encounter Details Date Type Department Care Team (Late st Contact Info) Description 10/21/2022 Refill Department of Family Medicine, [facility], in [address] [place] [address] Clover Delaney M.D. [address] [place] [address] Med Refill Social History Tobacco [...] often do you attend chur ch or faith services? Never 07/28/2022 Do you [...] Answer Date Recorded PHQ-2 Score 0 06/06/2022 [facility] of Occupat ional Health - Occupational Stress [...] Sex Assigned at Male 05/13/2021 10:11 AM HEALTH IT SPECIALIST Gender Identity Male 11/02/2017 7:22 PM CDT Sexual Orientation Straight 11/02/2017 7: 22 PM CDT documented as of this encounter Plan of Treatment Upcoming Encounters Date Type Department Care Team (Latest Contact Info) Description 05/28/2023 10:00 AM HEALTH IT SPECIALIST Appointment Department of Laboratory Medicine in [place] [address] [place] [address] [phone] Mónica Portillo APRN, C.N.P., M.S. [address] [place] [phone] 05/28/2023 10:10 AM HEALTH IT SPECIALIST Appointment Department of Laboratory Medicine in [place], [place] [address] [place] [address] [address] Mónica Portillo APRN, C.N.P., M.S. [address] [place] [phone] 05/29/2023 8:00 AM HEALTH IT SPECIALIST Office Visit Department of Community Internal Medicine in [place] [address] [place] [phone] Clover Delaney M.D. [address] [place] [phone] Discharge Disposition: Home or Self Care 05/29/2023 10:15 AM HEALTH IT SPECIALIST Appointment Department of Radiology, [facility], in [place], [place] [address] [place] [phone] Mónica Portillo APRN, C.N.P., M.S. [address] [place] [phone] 05/29/2023 1:00 PM HEALTH IT SPECIALIST Procedure visit Department of Urology in [place], [place] [address] [place] [phone] Mónica Portillo APRN, Kassandra.N.P., M.S. [address] [place] [phone] 05/29/2023 3:00 PM HEALTH IT SPECIALIST Education Division of Nephrology and Hypertension in [place], [place] [address] [place] [phone] Mónica Portillo APRN, C.N.P., M.S. [address] [place] [phone] Sandeep Galicia R.N. [address] [place] [phone] 05/29/2023 4:00 PM HEALTH IT SPECIALIST Comprehensive Visit Division of Nephrology and Hypertension in [place], [place] [address] [place] [phone] Sera Casiano M.D., Ph.D. [address] [place] [phone] 06/15/2023 2:00 PM HEALTH IT SPECIALIST Ancillary Procedure Department of Ophthalmology in [place], [place] [address] [place] [phone] Justin Bunch M.D. [address] [place] [phone] 06/15/2023 2:30 PM HEALTH IT SPECIALIST Ancillary Procedure Department of Ophthalmology in [address] [phone] Justin Bunch M.D. [address] [place] [phone] 06/15/2023 2:45 PM HEALTH IT SPECIALIST Office Visit Department of Ophthalmology in [address] [phone] Justin Bunch M.D. [address] [place] [phone] documented as of this encounter Visit Diagnoses Not on filedocumented in this encounter Additional Health Concerns Assessment Noted Time PHQ-9 Depression Total Score: 4 06/06/19 23 2:04 PM HEALTH IT SPECIALIST documented as of this encounter Care Teams Biostatistics Director Relationship Specialty Start Date End Date Clover Delaney M.D. [address] [place] [phone] PCP - General Internal Medicine 11/23/17 documented as of this encounter
--- OUTSIDE RECORDS SUMMARY | 2023-05-11 02:13 | XMS_ITS | Encounter Summary ---
Author Name Unknown Organization [facility] Address [address] [place] [address] Care Team Providers Care Bicycle Subassembler Name Role Phone Clover Delaney M.D. Primary Care Provider [phone]- [phone] Reason for Visit * Episode Based Medications (Routine) - Pending Review Specialty Diagnoses / Procedures Referred By Contanthony t Referred To Contact Diagnoses Malignant Neoplasm Of Transverse Colon (HCC) Anemia Of Chronic Renal Disease Procedures NV DARBEPOETIN KERRI, NON-ESRD [place] DARBEPOETIN KERRI, ESRD USE Mónica Portillo APRN, C.N.P., M.S. [address] [place] [phone] [facility] Region Referral ID Status Reason Start Date Expiration Date V isits Requested Visits Authorized [id number] Pending Review 09/03/2022 09/03/2023 12 12 Encounter Details Date Type Department Care Team (Late st Contact Info) Description 10/31/2022 12:00 PM CDT Infusion Department of Infusion Therapy in [address] [phone] Mónica Portillo APRN, C.N.P., M.S. [address] [place] [phone] Anemia Of Chronic Renal Disease (Primary Dx) [...] Date Recorded PHQ-2 Score 0 06/06/2022 [facility] of Occupat ional Health - Occupational [...] Sex Assigned at Male 05/13/2021 10:11 AM THERMOMETER PRODUCTION WORKER Gender Identity Male 11/02/2017 7:22 PM [...] (Latest Contact Info) Description 05/28/2023 10:00 AM THERMOMETER PRODUCTION WORKER Appointment Department of Laboratory Medicine in [place] [address] [place] [phone] Mónica Portillo APRN, C.N.P., M.S. [address] [place] [phone] 05/28/2023 10:10 AM THERMOMETER PRODUCTION WORKER Appointment Department of Laboratory Medicine in [place] [address] [place] [address] Mónica Portillo APRN, C.N.P., M.S. [address] [place] [phone] 05/29/2023 8:00 AM THERMOMETER PRODUCTION WORKER Office Visit Department of Community Internal Medicine in [place], [place] [address] [place] [address] Clover Delaney M.D. [address] [place] [address] Discharge Disposition: Home or Self Care 05/29/2023 10:15 AM THERMOMETER PRODUCTION WORKER Appointment Department of Radiology, [facility] in [place], [place] [address] [place] [address] Mónica Portillo APRN, C.N.P., M.S. [address] [place] [phone] 05/29/2023 1:00 PM THERMOMETER PRODUCTION WORKER Procedure visit Department of Urology in [place], [place] [address] [place] [phone] Mónica Portillo APRN, C.N.P., M.S. [address] [place] [phone] 05/29/2023 3:00 PM THERMOMETER PRODUCTION WORKER Education Division of Nephrology and Hypertension in [place], [place] [address] [place] [phone] Mónica Portillo APRN, C.N.P., M.S. [address] [place] [phone] Sandeep Galicia R.N. [address] [place] [phone] 05/29/2023 4:00 PM THERMOMETER PRODUCTION WORKER Comprehensive Visit Division of Nephrology and Hypertension in [place], [place] [address] [place] [phone] Sera Casiano M.D., Ph.D. [address] [place] [phone] 06/15/2023 2:00 PM THERMOMETER PRODUCTION WORKER Ancillary Procedure Department of Ophthalmology in [place], [place] [address] [place] [phone] Justin Bunch M.D. [address] [place] [phone] 06/15/2023 2:30 PM THERMOMETER PRODUCTION WORKER Ancillary Procedure Department of Ophthalmology in [place], [place] [address] [place] [phone] Justin Bunch M.D. [address] [place] [phone] 06/15/2023 2:45 PM THERMOMETER PRODUCTION WORKER Office Visit Department of Ophthalmology in [place], [place] [address] [place] [phone] Justin Bunch M.D. [address] [place] [phone] documented as of this encounter Visit Diagnoses [...] Depression Total Score: 4 06/06/19 2:04 PM THERMOMETER PRODUCTION WORKER documented as of this encounter Care Teams Bicycle Subassembler Relationship Specialty Start Date End Date Clover Delaney M.D. [address] [place] [phone] PCP - General Internal Medicine 11/23/17 documented as of this encounter
--- OUTSIDE RECORDS SUMMARY | 2023-05-11 02:13 | XMS_ITS | Encounter Summary ---
Author Name Unknown Organization [facility] Address [address] [place] [address] Care Team Providers Care Red Hat Linux Administrator Name Role Phone Clover Delaney M.D. Primary Care Provider +1- [phone] Encounter Details Date Type Department Care Team (Latest Contact Info) Description 10/31/2022 11:26 AM CDT - 10/31/2022 11:59 PM CDT Hospital Encounter Department of Laboratory Medicine in [address] [phone] Clover Delaney M.D. [address] [place] [phone] Anemia Discharge Disposition: Home or Self Care [...] Answer Date Recorded PHQ-2 Score 0 06/06/2022 [facility] [place] of Occupat ional Health - Occupational Stress [...] Assigned at Male 05/13/2021 10:11 AM ASSOCIATE PROFESSOR Gender Identity Male 11/02/2017 7:22 PM [...] mouth as needed. 0 miscellaneous medical supply [facility] CPAP Supplies See Instructions, CPAP machine, mask 1 ea x 4 refills, headgear 1 ea x 2 refills, tubing 1 ea x 4 refills, filters 2 ea per month, tub 1 ea x 2 refills, mask seal 1 ea x 2 refills DX G47.33, length of need 99, 1 each, 0 Refill(s) 0 10/20/2016 miscellaneous medical supply [facility] Head Gear for CPAP Machine See Instructions, fax to patient at [phone], 1 each 0 01/17/2014 MULTIVITAMIN ORAL Daily Multiple Vitamins See Instructions, Take 1 tablet by mouth daily. 0 07/23/2013 multivitamin-eye (PRESERVISION LUTEIN) 226 mg-90 mg-5 mg-0.8 mg capsule Take 2 capsules by mouth daily. 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 [address] [place] [phone] 05/28/2023 10:10 AM ASSOCIATE PROFESSOR Appointment Department of Laboratory Medicine in [place], [place] [address] [place] [phone] Mónica Portillo APRN, C.N.P., M.S. [address] [place] [phone] 05/29/2023 8:00 AM ASSOCIATE PROFESSOR Office Visit Department of Community Internal Medicine in [place], [place] [address] [place] [phone] Clover Delaney M.D. [address] [place] [phone] Discharge Disposition: Home or Self Care 05/29/2023 10:15 AM ASSOCIATE PROFESSOR Appointment Department of Radiology, [facility] in [place], [place] [address] [place] [phone] Mónica Portillo APRN, C.N.P., M.S. [address] [place] [phone] 05/29/2023 1:00 PM ASSOCIATE PROFESSOR Procedure visit Department of Urology in [place], [place] [address] [place] [phone] Mónica Portillo APRN, C.N.P., M.S. [address] [place] [phone] 05/29/2023 3:00 PM ASSOCIATE PROFESSOR Education Division of Nephrology and Hypertension in [place], [place] [address] [place] [phone] Mónica Portillo APRN, C.N.P., M.S. [address] [place] [phone] Sandeep Galicia R.N. [address] [place] [phone] 05/29/2023 4:00 PM ASSOCIATE PROFESSOR Comprehensive Visit Division of Nephrology and Hypertension in [place], [place] [address] [place] [phone] Sera Casiano M.D., Ph.D. [address] [place] [phone] 06/15/2023 2:00 PM ASSOCIATE PROFESSOR Ancillary Procedure Department of Ophthalmology in [place], [place] [address] [place] [phone] Justin Bunch M.D. [address] [place] [phone] 06/15/2023 2:30 PM ASSOCIATE PROFESSOR Ancillary Procedure Department of Ophthalmology in [place], [place] [address] [place] [phone] Justin Bunch M.D. [address] [place] [phone] 06/15/2023 2:45 PM ASSOCIATE PROFESSOR Office Visit Department of Ophthalmology in [place], [place] [address] [place] [phone] Justin Bunch M.D. [address] [place] [phone] documented as of this encounter Procedures Procedure [...] CDT Clover Delaney M.D. LAB BLOOD ADD-ON Performing Organization Address City/State/[facility] Co de Phone Number [facility] [address] [place] [address], [facility] in [address] [address] documented in this encounter Visit Diagnoses Diagnosis Anemia documented in this encounter Additional Health Concerns Assessment Noted Time PHQ-9 Depression Total Score: 4 06/06/19 23 2:04 PM ASSOCIATE PROFESSOR documented as of this encounter Care Teams Red Hat Linux Administrator Relationship Specialty Start Date End Date Clover Delaney M.D. [address] [place] [phone] PCP - General Internal Medicine 11/23/17 documented as of this encounter
--- OUTSIDE RECORDS SUMMARY | 2023-05-11 02:13 | XMS_ITS | Encounter Summary ---
Author Name Unknown Organization [facility] Address [address] [place] [address] Care Team Providers Care Electrical Maintenance Mechanic Name Role Phone Clover Delaney M.D. Primary Care Provider +1- [phone] Encounter Details Date Type Department Care Team [...] Answer Date Recorded PHQ-2 Score 0 06/06/2022 [facility] of Occupat ional Health - [...] Sex Assigned at Male 05/13/2021 10:11 AM STAFFING CLERK Gender Identity Male 11/02/2017 7:22 PM CDT Sexual Orientation Straight 11/02/2017 7: 22 PM CDT documented as of this encounter Plan of Treatment Upcoming Encounters Date Type Department Care Team (Latest Contact Info) Description 05/28/2023 10:00 AM STAFFING CLERK Appointment Department of Laboratory Medicine in [address] [place] [address] Mónica Portillo, TRIXIE, C.N.P., M.S. [address] [place] [phone] 05/28/2023 10:10 AM STAFFING CLERK Appointment Department of Laboratory Medicine in [place], [place] [address] [place] [address] Mónica Portillo APRN, C.N.P., M.S. [address] [place] [phone] 05/29/2023 8:00 AM STAFFING CLERK Office Visit Department of Community Internal Medicine in [place], [place] [address] [place] [phone] Clover Delaney M.D. [address] [place] [phone] Discharge Disposition: Home or Self Care 05/29/2023 10:15 AM STAFFING CLERK Appointment Department of Radiology, [facility] in [place], [place] [address] [place] [address] Mónica Portillo APRN, C.N.P., M.S. [address] [place] [phone] 05/29/2023 1:00 PM STAFFING CLERK Procedure visit Department of Urology in [place], [place] [address] [place] [phone] Mónica Portillo APRN, C.N.P., M.S. [address] [place] [phone] 05/29/2023 3:00 PM STAFFING CLERK Education Division of Nephrology and Hypertension in [place], [place] [address] [place] [phone] Mónica Portillo APRN, C.N.P., M.S. [address] [place] [phone] Sandeep Galicia R.N. [address] [place] [phone] 05/29/2023 4:00 PM STAFFING CLERK Comprehensive Visit Division of Nephrology and Hypertension in [place], [place] [address] [place] [phone] Sera Casiano M.D., Ph.D. [address] [place] [phone] 06/15/2023 2:00 PM STAFFING CLERK Ancillary Procedure Department of Ophthalmology in [place], [place] [address] [place] [phone] Justin Bunch M.D. [address] [place] [phone] 06/15/2023 2:30 PM STAFFING CLERK Ancillary Procedure Department of Ophthalmology in [place], [place] [address] [place] [phone] Justin Bunch M.D. [address] [place] [phone] 06/15/2023 2:45 PM STAFFING CLERK Office Visit Department of Ophthalmology in [place], [place] [address] [place] [phone] Justin Bunch M.D. [address] [place] [phone] documented as of this encounter Procedures Procedure [...] Total Score: 4 06/06/19 23 2:04 PM STAFFING CLERK documented as of this encounter Care Teams Electrical Maintenance Mechanic Relationship Specialty Start Date End Date Clover Delaney M.D. [address] [place] [phone] PCP - General Internal Medicine 11/23/17 documented as of this encounter
--- OUTSIDE RECORDS SUMMARY | 2023-05-11 02:13 | XMS_ITS | Encounter Summary ---
Author Name Unknown Organization [facility] Address [address] [place] [address] Care Team Providers Care Tape Cutter Name Role Phone Clover Delaney M.D. Primary Care Provider +1- [phone] Encounter Details Date Type Department Care Team (Latest Contact Info) Description 09/08/2022 4:50 PM CDT Ancillary Procedure Department of Ophthalmology in [place], [place] [address] [place] [address] Justin Bunch M.D. [address] [place] [phone] Unspecified Purulent Endophthalmitis Left Eye Social History [...] Answer Date Recorded PHQ-2 Score 0 06/06/2022 [facility] of Occupat ional Health - Occupational Stress [...] Assigned at Male 05/13/2021 10:11 AM COMMUNICATION AND OUTREACH MANAGER Gender Identity Male 11/02/2017 7:22 PM CDT Sexual Orientation Straight 11/02/2017 7: 22 PM CDT documented as of this encounter Plan of Treatment Upcoming Encounters Date Type Department Care Team (Latest Contact Info) Description 05/28/2023 10:00 AM COMMUNICATION AND OUTREACH MANAGER Appointment Department of Laboratory Medicine in [place] [address] [place] [address] Mónica Portillo APRN, C.N.P., M.S. [address] [place] [phone] 05/28/2023 10:10 AM COMMUNICATION AND OUTREACH MANAGER Appointment Department of Laboratory Medicine in [place] [address] [place] [address] Mónica Portillo APRN, C.N.P., M.S. [address] [place] [phone] 05/29/2023 8:00 AM COMMUNICATION AND OUTREACH MANAGER Office Visit Department of Community Internal Medicine in [place] [address] [place] [address] Clover Delaney M.D. [address] [place] [phone] Discharge Disposition: Home or Self Care 05/29/2023 10:15 AM COMMUNICATION AND OUTREACH MANAGER Appointment Department of Radiology, [facility], in [place], [place] [address] [place] [phone] Mónica Portillo APRN, Kassandra.N.P., M.S. [address] [place] [phone] 05/29/2023 1:00 PM COMMUNICATION AND OUTREACH MANAGER Procedure visit Department of Urology in [place], [place] [address] [place] [phone] Mónica Portillo APRN, Kassandra.N.P., M.S. [address] [place] [phone] 05/29/2023 3:00 PM COMMUNICATION AND OUTREACH MANAGER Education Division of Nephrology and Hypertension in [place], [place] [address] [place] [phone] Mónica Portillo APRN, C.NTaylor., M.S. [address] [place] [phone] Sandeep Galicia R.N. [address] [place] [phone] 05/29/2023 4:00 PM COMMUNICATION AND OUTREACH MANAGER Comprehensive Visit Division of Nephrology and Hypertension in [place], [place] [address] [place] [phone] Sera Casiano M.D., Ph.D. [address] [place] [phone] 06/15/2023 2:00 PM COMMUNICATION AND OUTREACH MANAGER Ancillary Procedure Department of Ophthalmology in [place], [place] [address] [place] [phone] Justin Bunch M.D. [address] [place] [phone] 06/15/2023 2:30 PM COMMUNICATION AND OUTREACH MANAGER Ancillary Procedure Department of Ophthalmology in [address] [phone] Justin Bunch M.D. [address] [place] [phone] 06/15/2023 2:45 PM COMMUNICATION AND OUTREACH MANAGER Office Visit Department of Ophthalmology in [address] [phone] Justin Bunch M.D. [address] [place] [phone] documented as of this encounter Procedures Procedure [...] Score: 4 06/06/19 23 2:04 PM COMMUNICATION AND OUTREACH MANAGER documented as of this encounter Care Teams Tape Cutter Relationship Specialty Start Date End Date Clover Delaney M.D. [address] [place] [phone] PCP - General Internal Medicine 11/23/17 documented as of this encounter
--- OUTSIDE RECORDS SUMMARY | 2023-05-11 02:13 | XMS_ITS | Encounter Summary ---
Author Name Unknown Organization [facility] Address [address] [place] [address] Care Team Providers Care Wildlife Officer Name Role Phone Clover Delaney M.D. Primary Care Provider +1- [phone] Reason for Visit * Reason Comments Med Refill Encounter Details Date Type Department Care Team (Late st Contact Info) Description 11/05/2022 Refill Department of Ophthalmology in [place], [place] [address] [place] [phone] Jon Juarez M.D. [address] [place] [phone] Med Refill Social History Tobacco Use Types [...] any clubs o r organizations such as adventist groups, unions, fraternal or athletic groups, or [...] Answer Date Recorded PHQ-2 Score 0 06/06/2022 [facility] [place] of Occupat ional Health - Occupational Stress [...] Sex Assigned at Male 05/13/2021 10:11 AM DETECTIVE CHIEF Gender Identity Male 11/02/2017 7:22 PM CDT Sexual Orientation Straight 11/02/2017 7: 22 PM CDT documented as of this encounter Plan of Treatment Upcoming Encounters Date Type Department Care Team (Latest Contact Info) Description 05/28/2023 10:00 AM DETECTIVE CHIEF Appointment Department of Laboratory Medicine in [place] [address] [place] [address] Mónica Portillo APRN, Kassandra.N.P., M.S. [address] [place] [phone] 05/28/2023 10:10 AM DETECTIVE CHIEF Appointment Department of Laboratory Medicine in [place] [address] [place] [address] Mónica Portillo APRN, Kassandra.N.P., M.S. [address] [place] [phone] 05/29/2023 8:00 AM DETECTIVE CHIEF Office Visit Department of Community Internal Medicine in [place] [address] [place] [address] Clover Delaney M.D. [address] [place] [phone] Discharge Disposition: Home or Self Care 05/29/2023 10:15 AM DETECTIVE CHIEF Appointment Department of Radiology, [facility], in [place], [place] [address] [place] [phone] Mónica Portillo APRN, Kassandra.N.P., M.S. [address] [place] [phone] 05/29/2023 1:00 PM DETECTIVE CHIEF Procedure visit Department of Urology in [place], [place] [address] [place] [phone] Mónica Portillo APRN, Kassandra.N.P., M.S. [address] [place] [phone] 05/29/2023 3:00 PM DETECTIVE CHIEF Education Division of Nephrology and Hypertension in [place], [place] [address] [place] [phone] Mónica Portillo APRN, C.N.P., M.S. [address] [place] [phone] Sandeep Galicia R.N. [address] [place] [phone] 05/29/2023 4:00 PM DETECTIVE CHIEF Comprehensive Visit Division of Nephrology and Hypertension in [place], [place] [address] [place] [phone] Sera Casiano M.D., Ph.D. [address] [place] [phone] 06/15/2023 2:00 PM DETECTIVE CHIEF Ancillary Procedure Department of Ophthalmology in [place], [place] [address] [place] [phone] Justin Bunch M.D. [address] [place] [phone] 06/15/2023 2:30 PM DETECTIVE CHIEF Ancillary Procedure Department of Ophthalmology in [address] [phone] Justin Bunch M.D. [address] [place] [phone] 06/15/2023 2:45 PM DETECTIVE CHIEF Office Visit Department of Ophthalmology in [address] [phone] Justin Bunch M.D. [address] [place] [phone] documented as of this encounter Visit Diagnoses Not on filedocumented in this encounter Additional Health Concerns Assessment Noted Time PHQ-9 Depression Total Score: 4 06/06/19 23 2:04 PM DETECTIVE CHIEF documented as of this encounter Care Teams Wildlife Officer Relationship Specialty Start Date End Date Clover Delaney M.D. [address] [place] [phone] PCP - General Internal Medicine 11/23/17 documented as of this encounter
--- OUTSIDE RECORDS SUMMARY | 2023-05-11 02:13 | XMS_ITS | Encounter Summary ---
Author Name Unknown Organization [facility] Address [address] [place] [address] Care Team Providers Care Commercial Announcer Name Role Phone Clover Delaney M.D. Primary Care Provider +1- [phone] Reason for Visit * Reason Comments Med Refill Encounter Details Date Type Department Care Team (Late st Contact Info) Description 11/06/2022 Refill Department of Ophthalmology in [place], [place] [address] [place] [phone] Justin Bunch M.D. [address] [place] [address] Med Refill Social History Tobacco Use Types [...] often do you attend chur ch or anglican services? Never 07/28/2022 Do you belong to [...] Answer Date Recorded PHQ-2 Score 0 06/06/2022 [facility] of Occupat ional Health - Occupational Stress [...] Sex Assigned at Male 05/13/2021 10:11 AM MEDICAL LIBRARIAN Gender Identity Male 11/02/2017 7:22 PM CDT [...] (Latest Contact Info) Description 05/28/2023 10:00 AM MEDICAL LIBRARIAN Appointment Department of Laboratory Medicine in [place] [address] [place] [address] Mónica Portillo APRN, C.N.P., M.S. [address] [place] [phone] 05/28/2023 10:10 AM MEDICAL LIBRARIAN Appointment Department of Laboratory Medicine in [place] [address] [place] [address] Mónica Portillo APRN, C.N.P., M.S. [address] [place] [phone] 05/29/2023 8:00 AM MEDICAL LIBRARIAN Office Visit Department of Community Internal Medicine in [place] [address] [place] [address] Clover Delaney M.D. [address] [place] [phone] Discharge Disposition: Home or Self Care 05/29/2023 10:15 AM MEDICAL LIBRARIAN Appointment Department of Radiology, [facility] in [place], [place] [address] [place] [phone] Mónica Portillo APRN, C.N.P., M.S. [address] [place] [phone] 05/29/2023 1:00 PM MEDICAL LIBRARIAN Procedure visit Department of Urology in [place], [place] [address] [place] [phone] Mónica Portillo APRN, C.N.P., M.S. [address] [place] [phone] 05/29/2023 3:00 PM MEDICAL LIBRARIAN Education Division of Nephrology and Hypertension in [place], [place] [address] [place] [phone] Mónica Portillo APRN, Kassandra.N.P., M.S. [address] [place] [phone] Sandeep Galicia R.NJosé Luis [address] [place] [phone] 05/29/2023 4:00 PM MEDICAL LIBRARIAN Comprehensive Visit Division of Nephrology and Hypertension in [place], [place] [address] [place] [phone] Sera Casiano M.D., Ph.D. [address] [place] [phone] 06/15/2023 2:00 PM MEDICAL LIBRARIAN Ancillary Procedure Department of Ophthalmology in [place], [place] [address] [place] [phone] Justin Bunch M.D. [address] [place] [phone] 06/15/2023 2:30 PM MEDICAL LIBRARIAN Ancillary Procedure Department of Ophthalmology in [place], [place] [address] [place] [phone] Justin Bunch M.D. [address] [place] [phone] 06/15/2023 2:45 PM MEDICAL LIBRARIAN Office Visit Department of Ophthalmology in [place], [place] [address] [place] [address] Justin Bunch M.D. [address] [place] [phone] documented as of this encounter Visit Diagnoses Not on filedocumented in this encounter Additional Health Concerns Assessment Noted Time PHQ-9 Depression Total Score: 4 06/06/19 23 2:04 PM MEDICAL LIBRARIAN documented as of this encounter Care Teams Commercial Announcer Relationship Specialty Start Date End Date Clover Delaney M.D. [address] [place] [phone] PCP - General Internal Medicine 11/23/17 documented as of this encounter
--- OUTSIDE RECORDS SUMMARY | 2023-05-11 02:14 | XMS_ITS | Encounter Summary ---
Author Name Unknown Organization [facility] Address [address] [place] [address] Care Team Providers Care Steward/Stewardess Dining Room Name Role Phone Clover Delaney M.D. Primary Care Provider +1- [phone] Reason for Visit * Reason Comments Retina Follow Up * Outpatient (Routine) - Closed Specialty Diagnoses / Procedures Referred By Yenny hunter Referred To Contact Ophthalmology Da Paez M.D. [address] [place] [phone] [facility] Referral ID Status Reason Start Date Expiration Date Visits Re quested Visits Authorized [id number] Closed 04/07/2022 04/06/2025 1 1 Encounter Details Date Type Department Care Team (Latest Contact Info) Description 09/08/2022 3:00 PM CDT Comprehensive Visit Department of Ophthalmology in [place], [place] [address] [place] [phone] Justin Bunch M.D. 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 [address] [place] [phone] 05/28/2023 10:10 AM SPONGE PACKER Appointment Department of Laboratory Medicine in [place] [address] [place] [address] Mónica Portillo APRN, C.N.P., M.S. [address] [place] [phone] 05/29/2023 8:00 AM SPONGE PACKER Office Visit Department of Community Internal Medicine in [place] [address] [place] [phone] Clover Delaney M.D. [address] [place] [phone] Discharge Disposition: Home or Self Care 05/29/2023 10:15 AM SPONGE PACKER Appointment Department of Radiology, [facility], in [place], [place] [address] [place] [phone] Mónica Portillo APRN, C.N.P., M.S. [address] [place] [phone] 05/29/2023 1:00 PM SPONGE PACKER Procedure visit Department of Urology in [place], [place] [address] [place] [phone] Mónica Portillo APRN, C.N.P., M.S. [address] [place] [phone] 05/29/2023 3:00 PM SPONGE PACKER Education Division of Nephrology and Hypertension in [place], [place] [address] [place] [phone] Mónica Portillo APRN, C.N.P., M.S. [address] [place] [phone] Sandeep Galicia R.N. [address] [place] [phone] 05/29/2023 4:00 PM SPONGE PACKER Comprehensive Visit Division of Nephrology and Hypertension in [place], [place] [address] [place] [phone] Sera Casiano M.D., Ph.D. [address] [place] [phone] 06/15/2023 2:00 PM SPONGE PACKER Ancillary Procedure Department of Ophthalmology in [place], [place] [address] [place] [phone] Justin Bunch M.D. [address] [place] [phone] 06/15/2023 2:30 PM SPONGE PACKER Ancillary Procedure Department of Ophthalmology in [place], [place] [address] [place] [phone] Justin Bunch M.D. [address] [place] [phone] 06/15/2023 2:45 PM SPONGE PACKER Office Visit Department of Ophthalmology in [place], [place] [address] [place] [phone] Justin Bunch M.D. [address] [place] [phone] documented as of this encounter Results * [...] Total Score: 4 06/06/19 23 2:04 PM SPONGE PACKER documented as of this encounter Care Teams Steward/Stewardess Dining Room Relationship Specialty Start Date End Date Clover Delaney M.D. [address] [place] [phone] PCP - General Internal Medicine 11/23/17 documented as of this encounter
--- OUTSIDE RECORDS SUMMARY | 2023-05-11 02:14 | XMS_ITS | Encounter Summary ---
Author Name Unknown Organization [facility] Address [address] [place] [address] Care Team Providers Care Oil Processing Technician Name Role Phone Clover Delaney M.D. Primary Care Provider +1- [phone] Reason for Visit * Reason Comments Med Refill Encounter Details Date Type Department Care Team (Late st Contact Info) Description 09/03/2022 Refill Division of Nephrology and Hypertension in [place], [place] [address] [place] [address] Cameron Cuevas M.D. [address] [place] [phone] Med Refill Social History Tobacco Use Types [...] often do you attend chur ch or mandaeism services? Never 07/28/2022 Do you belong to any clubs o r organizations such as gnosticism groups, unions, fraternal or athletic groups, or [...] Score 0 06/06/2022 [facility] [place] of Occupat ional Health - Occupational Stress [...] Sex Assigned at Male 05/13/2021 10:11 AM REGULATORY AFFAIRS COORDINATOR Gender Identity Male 11/02/2017 7:22 PM CDT Sexual Orientation Straight 11/02/2017 7: 22 PM CDT documented as of this encounter Plan of Treatment Upcoming Encounters Date Type Department Care Team (Latest Contact Info) Description 05/28/2023 10:00 AM REGULATORY AFFAIRS COORDINATOR Appointment Department of Laboratory Medicine in [place] [address] [place] [address] Mónica Portillo APRN, C.N.P., M.S. [address] [place] [phone] 05/28/2023 10:10 AM REGULATORY AFFAIRS COORDINATOR Appointment Department of Laboratory Medicine in [place] [address] [place] [address] Mónica Portillo APRN, C.N.P., M.S. [address] [place] [phone] 05/29/2023 8:00 AM REGULATORY AFFAIRS COORDINATOR Office Visit Department of Community Internal Medicine in [place] [address] [place] [phone] Clovre Delaney M.D. [address] [place] [phone] Discharge Disposition: Home or Self Care 05/29/2023 10:15 AM REGULATORY AFFAIRS COORDINATOR Appointment Department of Radiology, [facility], in [place], [place] [address] [place] [phone] Mónica Portillo APRN, Kassandra.N.P., M.S. [address] [place] [phone] 05/29/2023 1:00 PM REGULATORY AFFAIRS COORDINATOR Procedure visit Department of Urology in [place], [place] [address] [place] [phone] Mónica Portillo APRN, C.N.P., M.S. [address] [place] [phone] 05/29/2023 3:00 PM REGULATORY AFFAIRS COORDINATOR Education Division of Nephrology and Hypertension in [place], [place] [address] [place] [phone] Mónica Portillo APRN, C.NJosé LuisP., M.S. [address] [place] [phone] Sandeep Galicia R.N. [address] [place] [phone] 05/29/2023 4:00 PM REGULATORY AFFAIRS COORDINATOR Comprehensive Visit Division of Nephrology and Hypertension in [address] [phone] Sera Casiano M.D., Ph.D. [address] [place] [phone] 06/15/2023 2:00 PM REGULATORY AFFAIRS COORDINATOR Ancillary Procedure Department of Ophthalmology in [address] [phone] Justin Bunch M.D. [address] [place] [phone] 06/15/2023 2:30 PM REGULATORY AFFAIRS COORDINATOR Ancillary Procedure Department of Ophthalmology in [address] [phone] Jusitn Bunch M.D. [address] [place] [phone] 06/15/2023 2:45 PM REGULATORY AFFAIRS COORDINATOR Office Visit Department of Ophthalmology in [address] [phone] Justin Bunch M.D. [address] [place] [phone] documented as of this encounter Visit Diagnoses Not on filedocumented in this encounter Additional Health Concerns Assessment Noted Time PHQ-9 Depression Total Score: 4 06/06/19 23 2:04 PM REGULATORY AFFAIRS COORDINATOR documented as of this encounter Care Teams Oil Processing Technician Relationship Specialty Start Date End Date Clover Delaney M.D. [address] [place] [phone] PCP - General Internal Medicine 11/23/17 documented as of this encounter
--- OUTSIDE RECORDS SUMMARY | 2023-05-11 02:14 | XMS_ITS | Encounter Summary ---
Author Name Unknown Organization [facility] Address [address] [place] [address] Care Team Providers Care Certified Medical Records Coder Name Role Phone Clover Delaney M.D. Primary Care Provider +1- [phone] Reason for Visit * Reason Onset Date Comments Shortness of Breath 09/02/2022 Encounter Details Date Type Department Care Team (Late st Contact Info) Description 09/02/2022 Nurse Triage Department of Community Internal Medicine in [address] [place] [phone] Rachel Victoria, R.N. [address] [phone] Shortness of Breath Social History [...] Answer Date Recorded PHQ-2 Score 0 06/06/2022 [facility] [...] Sex Assigned at Male 05/13/2021 10:11 AM IT DATA ARCHITECT Gender Identity Male 11/02/2017 7:22 PM CDT [...] when he went on a trip to [place] on 08/12/22 and have continued. States he is scheduled for an iron infusion tomorrow. Present for: since 08/12/22 Home cares tried: none Calling to request: appointment The recommended disposition is See a health care provider within 4 hours. Patient was warm transferred to, Dionna, Patient Appointment Labor Training Manager at the clinic for further assistance. Patient [...] or WORSE than normal Protocols used: Breathing [id number]-[id number] Care Advice Patient/Caregiver understands and will follow care advice?: Yes, able to teach back CALL BACK IF: * You become worse CARE ADVICE given per Breathing Difficulty (Adult) guideline. documented in this encounter Plan of Treatment Upcoming Encounters Date Type Department Care Team (Latest Contact Info) Description 05/28/2023 10:00 AM IT DATA ARCHITECT Appointment Department of Laboratory Medicine in [place], [place] [address] [place] [address] Mónica Portillo APRN, C.N.P., M.S. [address] [place] [phone] 05/28/2023 10:10 AM IT DATA ARCHITECT Appointment Department of Laboratory Medicine in [place], [place] [address] [phone] Mónica Portillo APRN, C.N.P., M.S. [address] [place] [phone] 05/29/2023 8:00 AM IT DATA ARCHITECT Office Visit Department of Community Internal Medicine in [place], [place] [address] [place] [address] Clover Delaney M.D. [address] [place] [phone] Discharge Disposition: Home or Self Care 05/29/2023 10:15 AM IT DATA ARCHITECT Appointment Department of Radiology, [facility], in [place], [place] [address] [place] [phone] Mónica Portillo APRN, C.N.P., M.S. [address] [place] [phone] 05/29/2023 1:00 PM IT DATA ARCHITECT Procedure visit Department of Urology in [place], [place] [address] [place] [phone] Mónica Portillo APRN, C.N.P., M.S. [address] [place] [phone] 05/29/2023 3:00 PM IT DATA ARCHITECT Education Division of Nephrology and Hypertension in [place], [place] [address] [place] [phone] Mónica Portillo APRN, C.N.P., M.S. [address] [place] [phone] Sandeep Galicia R.N. [address] [place] [phone] 05/29/2023 4:00 PM IT DATA ARCHITECT Comprehensive Visit Division of Nephrology and Hypertension in [place], [place] [address] [place] [phone] Sera Casiano M.D., Ph.D. [address] [place] [phone] 06/15/2023 2:00 PM IT DATA ARCHITECT Ancillary Procedure Department of Ophthalmology in [place], [place] [address] [place] [phone] Justin Bunch M.D. [address] [place] [phone] 06/15/2023 2:30 PM IT DATA ARCHITECT Ancillary Procedure Department of Ophthalmology in [place], [place] [address] [place] [phone] Justin Bunch M.D. [address] [place] [phone] 06/15/2023 2:45 PM IT DATA ARCHITECT Office Visit Department of Ophthalmology in [place], [place] [address] [place] [phone] Justin Bunch M.D. [address] [place] [phone] documented as of this encounter Visit Diagnoses Not on filedocumented in this encounter Additional Health Concerns Assessment Noted Time PHQ-9 Depression Total Score: 4 06/06/19 23 2:04 PM IT DATA ARCHITECT documented as of this encounter Care Teams Certified Medical Records Coder Relationship Specialty Start Date End Date Clover Delaney M.D. [address] [place] [phone] PCP - General Internal Medicine 11/23/17 documented as of this encounter
--- OUTSIDE RECORDS SUMMARY | 2023-05-11 02:14 | XMS_ITS | Encounter Summary ---
Author Name Unknown Organization [facility] Address [address] [place] [address] Care Team Providers Care Shake Backboard Notcher Name Role Phone Clover Delaney M.D. Primary Care Provider +1- [phone] Encounter Details Date Type Department Care Team (Late st Contact Info) Description 09/04/2022 Clinical Communication Division of Nephrology and Hypertension, [facility], in [place], [place] [address] [place] [phone] Mónica Portillo, TRIXIE, C.N.P., M.S. [address] [place] [address] Social History Tobacco Use Types Packs/Day Years [...] Sex Assigned at Male 05/13/2021 10:11 AM VASCULAR NURSE Gender Identity Male 11/02/2017 7:22 PM CDT Sexual Orientation Straight 11/02/2017 7: 22 PM CDT documented as of this encounter Plan of Treatment Upcoming Encounters Date Type Department Care Team (Latest Contact Info) Description 05/28/2023 10:00 AM VASCULAR NURSE Appointment Department of Laboratory Medicine in [place] [address] [place] [address] Mónica Portillo APRN, C.N.P., M.S. [address] [place] [phone] 05/28/2023 10:10 AM VASCULAR NURSE Appointment Department of Laboratory Medicine in [place] [address] [place] [address] Mónica Portillo APRN, Kassandra.N.P., M.S. [address] [place] [phone] 05/29/2023 8:00 AM VASCULAR NURSE Office Visit Department of Community Internal Medicine in [place] [address] [place] [address] Clover Delaney M.D. [address] [place] [phone] Discharge Disposition: Home or Self Care 05/29/2023 10:15 AM VASCULAR NURSE Appointment Department of Radiology, [facility], in [place], [place] [address] [place] [phone] Mónica Portillo APRN, C.N.P., M.S. [address] [place] [phone] 05/29/2023 1:00 PM VASCULAR NURSE Procedure visit Department of Urology in [place], [place] [address] [place] [phone] Mónica Portillo APRN, Kassandra.N.P., M.S. [address] [place] [phone] 05/29/2023 3:00 PM VASCULAR NURSE Education Division of Nephrology and Hypertension in [place], [place] [address] [place] [phone] Mónica Portillo APRN, DrewNJosé LuisP., M.S. [address] [place] [phone] Sandeep Galicia R.N. [address] [place] [phone] 05/29/2023 4:00 PM VASCULAR NURSE Comprehensive Visit Division of Nephrology and Hypertension in [place], [place] [address] [place] [phone] Sera Casiano M.D., Ph.D. [address] [place] [phone] 06/15/2023 2:00 PM VASCULAR NURSE Ancillary Procedure Department of Ophthalmology in [place], [place] [address] [place] [phone] Justin Bunch M.D. [address] [place] [phone] 06/15/2023 2:30 PM VASCULAR NURSE Ancillary Procedure Department of Ophthalmology in [address] [phone] Justin Bunch M.D. [address] [place] [phone] 06/15/2023 2:45 PM VASCULAR NURSE Office Visit Department of Ophthalmology in [address] [phone] Justin Bunch M.D. [address] [place] [phone] documented as of this encounter Visit Diagnoses Not on filedocumented in this encounter Additional Health Concerns Assessment Noted Time PHQ-9 Depression Total Score: 4 06/06/19 23 2:04 PM VASCULAR NURSE documented as of this encounter Care Teams Shake Backboard Notcher Relationship Specialty Start Date End Date Clover Delaney M.D. [address] [place] [address] PCP - General Internal Medicine 11/23/17 documented as of this encounter
--- OUTSIDE RECORDS SUMMARY | 2023-05-11 02:14 | XMS_ITS | Encounter Summary ---
Author Name Unknown Organization [facility] Address [address] [place] [address] Care Team Providers Care Keyboarding Teacher Name Role Phone Clover Delaney M.D. Primary Care Provider +1- [phone] Encounter Details Date Type Department Care Team (Latest Contact Info) Description 09/01/2022 9:03 AM CDT - 09/01/2022 11:59 PM CDT Hospital Encounter Department of Laboratory Medicine in [address] [place] [phone] Mónica Portillo, TRIXIE, C.N.P., M.S. [address] [place] [phone] Anemia Of Chronic Renal Disease; Hypertension And [...] Answer Date Recorded PHQ-2 Score 0 06/06/2022 [facility] [place] of Occupat ional Health - Occupational Stress [...] Sex Assigned at Male 05/13/2021 10:11 AM SALT GRINDER Gender Identity Male 11/02/2017 7:22 PM CDT [...] Machine See Instructions, fax to patient at [phone], 1 each 0 01/17/2014 MULTIVITAMIN ORAL Daily [...] (Latest Contact Info) Description 05/28/2023 10:00 AM SALT GRINDER Appointment Department of Laboratory Medicine in [place], [place] [address] [place] [address] Mónica Portillo APRN, C.N.P., M.S. [address] [place] [phone] 05/28/2023 10:10 AM SALT GRINDER Appointment Department of Laboratory Medicine in [place], [place] [address] [place] [address] Mónica Portillo APRN, C.N.P., M.S. [address] [place] [phone] 05/29/2023 8:00 AM SALT GRINDER Office Visit Department of Community Internal Medicine in [place], [place] [address] [place] [address] Clover Delaney M.D. [address] [place] [phone] Discharge Disposition: Home or Self Care 05/29/2023 10:15 AM SALT GRINDER Appointment Department of Radiology, [facility] in [place], [place] [address] [place] [address] Mónica Portillo APRN, C.N.P., M.S. [address] [place] [phone] 05/29/2023 1:00 PM SALT GRINDER Procedure visit Department of Urology in [place], [place] [address] [place] [address] Mónica Portillo APRN, C.N.P., M.S. [address] [place] [phone] 05/29/2023 3:00 PM SALT GRINDER Education Division of Nephrology and Hypertension in [place], [place] [address] [place] [phone] Mónica Portillo APRN, DrewNTaylor., M.S. [address] [place] [phone] Sandeep Galicia R.N. [address] [place] [phone] 05/29/2023 4:00 PM SALT GRINDER Comprehensive Visit Division of Nephrology and Hypertension in [place], [place] [address] [place] [phone] Sera Casiano M.D., Ph.D. [address] [place] [phone] 06/15/2023 2:00 PM SALT GRINDER Ancillary Procedure Department of Ophthalmology in [place], [place] [address] [place] [phone] Justin Bunch M.D. [address] [place] [phone] 06/15/2023 2:30 PM SALT GRINDER Ancillary Procedure Department of Ophthalmology in [place], [place] [address] [place] [phone] Justin Bunch M.D. [address] [place] [phone] 06/15/2023 2:45 PM SALT GRINDER Office Visit Department of Ophthalmology in [address] [phone] Justin Bunch M.D. [address] [place] [phone] documented as of this encounter Procedures Procedure [...] Kassandra Couch APRN.N.P., M.S. LAB URINE ORDERABLES [facility] [address] [place] [address], [facility] RDW[facility] in [place] [address] [place] [phone] * (ABNORMAL) Urinalysis with Microscopic: Urine, Midstream [...] 8.0 09/01/2022 12:24 PM CDT RDWG Specific Erhard 1.010 1.001 - 1.035 09/01/2022 12:24 PM [...] Drew Couch APRNN.P., M.S. LAB URINE ORDERABLES [facility] [address] [place] [address], [facility] RDW[facility] in [place] [address] [facility] [place], [place] [address] documented in this encounter Visit Diagnoses Diagnosis Anemia Of Chronic Renal Disease Hypertension And Chronic Kidney Disease Stage 4 (HCC) documented in this encounter Additional Health Concerns Assessment Noted Time PHQ-9 Depression Total Score: 4 06/06/19 23 2:04 PM SALT GRINDER documented as of this encounter Care Teams Keyboarding Teacher Relationship Specialty Start Date End Date Clover Delaney M.D. [address] [place] [phone] PCP - General Internal Medicine 11/23/17 documented as of this encounter
--- OUTSIDE RECORDS SUMMARY | 2023-05-11 02:14 | XMS_ITS | Encounter Summary ---
Author Name Unknown Organization [facility] Address [address] [place] [address] Care Team Providers Care Auto Technician Mechanic Name Role Phone Clover Delaney M.D. Primary Care Provider +1- [phone] Reason for Referral * Specialty Diagnoses / Procedures Referred By Contanthony t Referred To Contact Mónica Portillo APRN, C.N.P., M.S. 200 [place] [address] [facility] Referral ID Status Reason Start Date Expiration Date Visits Re quested Visits Authorized Scheduling Instructions Virtual education preferred Labs at [facility] please and okay for virtual follow up * Outpatient (Routine) - Closed Specialty Diagnoses / Procedures Referred By Yenny t Referred To Contact Nephrology and Hypertension Mónica Portillo APRN, C.NTaylor., M.S. 200 [place] [address] [facility] Referral ID Status Reason Start Date Expiration Date Visits Re quested Visits Authorized [id number] Closed 09/03/2022 09/02/2025 1 1 Scheduling Instructions Labs at [facility] please and okay for virtual follow up Reason for Visit * Outpatient (Routine) - Closed Specialty Diagnoses / Procedures Referred By Yenny hunter Referred To Contact Nephrology and Hypertension Mónica Portillo APRN, C.N.P., M.S. [address] [place] [address] [facility] Referral ID Status Reason Start Date Expiration Date Visits Re quested Visits Authorized [id number] Closed 07/29/2022 07/28/2025 1 1 Encounter Details Date Type Department Care Team (Latest Contact Info) Description 09/03/2022 9:15 AM CDT Telemedicine Division of Nephrology and Hypertension in [place], [place] [address] [place] [phone] Mónica Portillo APRN, C.N.P., M.S. [address] [place] [phone] Chronic Kidney Disease Stage 4 Glomerular Filtration [...] Date Recorded PHQ-2 Score 0 06/06/2022 [facility] Occupat ional [facility] - Occupational Stress Questionnaire Answer [...] Sex Assigned at Male 05/13/2021 10:11 AM COMPO CASTER Gender Identity Male 11/02/2017 7:22 PM CDT [...] by Mónica Portillo APRN, C.N.P., M.S. in [facility] to the patient in Patient's Home HISTORY OF PRESENT ILLNESS Mr. Patel is a 76 y.o. 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 Two Feraheme infusions were recommended at [facility] infusion center. He presents for ongoing evaluation of chronic kidney disease. He and his have just returned from there 50 year wedding anniversary trip to [place] and the [facility]. He notes that travel was difficult due [...] He will have 2 feraheme infusions at [facility]; one time this week and again next week. Anemia management plan will be monthly CBC with Aranesp 60 mcg; hold for hemoglobin greater than 11. I will ask the CKD RN to fax request to his [facility] provider. He will discuss trial of a [...] unable toarrange monthly CBC and aranesp at [facility], we will try to arrange anemia management at [place]. If unable to get the aranesp injections at [facility], he will travel to [facility]. #5 Hyperparathyroidism, renal secondary Calcium, phosphorus and PTH are in desired range. Phosphorus now improved. #6 Metabolic acidosis screening Bicarbonate is at goal without oral replacement. documented in this encounter Plan of Treatment Upcoming Encounters Date Type Department Care Team (Latest Contact Info) Description 05/28/2023 10:00 AM COMPO CASTER Appointment Department of Laboratory Medicine in [place] [id number] [place] [address] Mónica Portillo APRN, Kassandra.N.P., M.S. 200 [place] [address] 05/28/2023 10:10 AM COMPO CASTER Appointment Department of Laboratory Medicine in [place], [place] [address] [address] Mónica Portillo APRN, C.N.P., M.S. [address] [place] [phone] 05/29/2023 8:00 AM COMPO CASTER Office Visit Department of Community Internal Medicine in [place] [id number] [place] [address] Clover Delaney M.D. [address] [place] [phone] Discharge Disposition: Home or Self Care 05/29/2023 10:15 AM COMPO CASTER Appointment Department of Radiology, [facility], in [place], [place] [address] [place] [phone] Mónica Portillo APRN, C.N.P., M.S. [address] [place] [phone] 05/29/2023 1:00 PM COMPO CASTER Procedure visit Department of Urology in [place], [place] [address] [place] [phone] Mónica Portillo APRN, C.N.P., M.S. [address] [place] [phone] 05/29/2023 3:00 PM COMPO CASTER Education Division of Nephrology and Hypertension in [place], [place] [address] [place] [phone] Mónica Portillo APRN, C.N.P., M.S. [address] [place] [phone] Sandeep Galicia R.N. [address] [place] [phone] 05/29/2023 4:00 PM COMPO CASTER Comprehensive Visit Division of Nephrology and Hypertension in [place], [place] [address] [place] [phone] Sera Casiano M.D., Ph.D. [address] [place] [phone] 06/15/2023 2:00 PM COMPO CASTER Ancillary Procedure Department of Ophthalmology in [place], [place] [address] [place] [phone] Justin Bunch M.D. [address] [place] [phone] 06/15/2023 2:30 PM COMPO CASTER Ancillary Procedure Department of Ophthalmology in [place], [place] [address] [place] [address] Justin Bunch M.D. [address] [place] [phone] 06/15/2023 2:45 PM COMPO CASTER Office Visit Department of Ophthalmology in [place], [place] [address] [place] [phone] Justin Bunch M.D. [address] [place] [phone] Scheduled Referrals Name Type Priority Associated Diagnoses [...] Comment: Biotin has been identified by the attache as a potential interfering substance. Higher concentrations [...] [facility]/ZIP Co de Phone Number [facility] [address] [place] [address], [facility] [place] [address] * (ABNORMAL) Iron and Total Iron-Binding Capacity [...] ADD-ON Performing Organization Address City/[facility] Co de Phone Number [facility] [address] [place] [address], [facility] in [address] [address] * (ABNORMAL) Ferritin (02/26/2023 9:14 AM CDT) Ferritin, S 533(H) 31 - 409 mcg/L 02/26/2023 12:18 PM CDT [facility] Comment: Biotin has been identified by the attache as a potential interfering substance. Higher concentrations of biotin may be found in multivitamins, hair/nail supplements, and workout supplements. If the result does not match clinical observations, repeat testing after patient refrains from the use of supplements for at least 12 hours. Blood (Blood, Venous) 02/26/2023 9:14 AM CDT 02/26/2023 11:45 AM CDT Mónica Portillo APRN, C.N.P., M.S. LAB BLOOD ADD-ON [facility] [address] [place] [address], [facility] in [place] [address] [place] [address] * (ABNORMAL) Renal Function Panel (02/26/2023 9:14 [...] [facility]/ZIP Co de Phone Number [facility] [place] [address] [place] [address], [facility] in [place] [address] [place] [phone] * (ABNORMAL) CBC without Differential (02/26/2023 9:14 [...] Kassandra Couch APRN.N.P., M.S. 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 [address] [place] [address] PCP - General Internal Medicine 11/23/17 documented as of this encounter
--- OUTSIDE RECORDS SUMMARY | 2023-05-11 02:14 | XMS_ITS | Encounter Summary ---
Author Name Unknown Organization [facility] Address [address] [place] [address] Care Team Providers Care Community Pharmacist Name Role Phone Clover Delaney M.D. Primary Care Provider +1- [phone] Reason for Referral * Outpatient (Routine) - Authorized Specialty Diagnoses / Procedures Referred By Yenny hunter Referred To Contact Sleep Medicine Diagnoses Obstructive Sleep Apnea Adult Clover Delaney M.D. [address] [place] [phone] [address] Phone: [phone] Referral ID Status Reason Start Date Expiration Date Visits Requested Visits Authorized [id number] Authorized Patient Preference 09/08/2022 09/08/2023 1 1 Reason for Visit * Reason Comments Shortness of Breath * Appointment Request (Routine) - Closed Specialty Diagnoses / Procedures Referred By Yenny hunter Referred To Contact Family Medicine Referral ID Status Reason Start Date Expiration Date Visits Re quested Visits Authorized [id number] Closed 09/02/2022 09/02/2023 1 1 Encounter Details Date Type Department Care Team (Latest Contact Info) Description 09/05/2022 2:00 PM CDT Office Visit Department of Community Internal Medicine in [place], [place] [address] [place] [address] [place] [address] Clovre Delaney M.D. [address] [place] [address] Dyspnea On Exertion (Primary Dx); [...] often do you attend chur ch or jain services? Never 07/28/2022 Do you belong to any clubs o r organizations such as scientologist groups, unions, fraternal or athletic groups, or [...] Recorded PHQ-2 Score 0 06/06/2022 [facility] of Occupat ional Health [...] Assigned at Male 05/13/2021 10:11 AM GAS DISTRIBUTION AND EMERGENCY CLERK Gender Identity Male 11/02/2017 7:22 PM [...] Body Mass Index 50.18 03/31/2022 2:55 PM GAS DISTRIBUTION AND EMERGENCY CLERK documented in this encounter Progress Notes * Clover Delaney M.D. - 09/05/2022 2:00 PM CDT SUBJECTIVE CHIEF COMPLAINT / REASON FOR VISIT Philip Patel is a 76 y.o. male who presents for evaluation of Shortness of Breath. HISTORY OF PRESENT ILLNESS Here for evaluation of dyspnea on exertion, noted more when he was on a trip to [facility] last month that required more walking. He [...] CPAP DME Order flash glucose scanning reader ([facility] [employer] [facility]) misc 1 each (1 Device total) [...] by mouth as needed. miscellaneous medical supply [facility] [place] CPAP Supplies See Instructions, CPAP machine, mask 1 ea x 4 refills, headgear 1 ea x 2 refills, tubing 1 ea x 4 refills, filters 2 ea per month, tub 1 ea x 2 refills, mask seal 1 ea x 2 refills DX G47.33, length of need 99, 1 each, 0 Refill(s) [facility] [place] Head Gear for CPAP Machine See Instructions, fax to patient at [phone], 1 each MULTIVITAMIN ORAL Daily Multiple Vitamins See Instructions, Take 1 tablet by mouth daily. multivitamin-eye (PRESERVISION LUTEIN) 226 mg-90 mg-5 mg-0.8 mg capsule Take 2 capsules by mouth daily. ONETOUCH DELICA LANCETS 33 gauge [facility] [place] OneTouch Ultra Test strips Use to test [...] Negative pH 5.5 5.0 - 8.0 Specific [place] 1.010 1.001 - 1.035 Urobilinogen 0.2 0.2 [...] daily activity. He will be referred to [facility] for evaluation of his CPAP/KIMBER [...] and he prefers to do this through [facility] and clinics. External medical referral ordered. Overview: [...] Contact Info) Description 05/28/2023 10:00 AM GAS DISTRIBUTION AND EMERGENCY CLERK Appointment Department of Laboratory Medicine in [place], [place] [address] [place] [address] Mónica Portillo APRN, C.N.P., M.S. [address] [place] [phone] 05/28/2023 10:10 AM GAS DISTRIBUTION AND EMERGENCY CLERK Appointment Department of Laboratory Medicine in [place], [place] [address] [place] [address] [address] Mónica Portillo APRN, C.N.P., M.S. [address] [place] [phone] 05/29/2023 8:00 AM GAS DISTRIBUTION AND EMERGENCY CLERK Office Visit Department of Community Internal Medicine in [place], [place] [address] [place] [address] Clover Delaney M.D. [address] [place] [phone] Discharge Disposition: Home or Self Care 05/29/2023 10:15 AM GAS DISTRIBUTION AND EMERGENCY CLERK Appointment Department of Radiology, [facility], in [place], [place] [address] [place] [address] Mónica Portillo APRN, Kassandra.N.P., M.S. [address] [place] [phone] 05/29/2023 1:00 PM GAS DISTRIBUTION AND EMERGENCY CLERK Procedure visit Department of Urology in [place], [place] [address] [place] [phone] Mónica Portillo APRN, C.N.P., M.S. [address] [place] [phone] 05/29/2023 3:00 PM GAS DISTRIBUTION AND EMERGENCY CLERK Education Division of Nephrology and Hypertension in [place], [place] [address] [place] [phone] Mónica Portillo APRN, Kassandra.N.P., M.S. [address] [place] [phone] Sandeep Galicia R.N. [address] [place] [phone] 05/29/2023 4:00 PM GAS DISTRIBUTION AND EMERGENCY CLERK Comprehensive Visit Division of Nephrology and Hypertension in [place], [place] [address] [place] [phone] Sera Casiano M.D., Ph.D. [address] [place] [phone] 06/15/2023 2:00 PM GAS DISTRIBUTION AND EMERGENCY CLERK Ancillary Procedure Department of Ophthalmology in [place], [place] [address] [place] [phone] Justin Bunch M.D. [address] [place] [phone] 06/15/2023 2:30 PM GAS DISTRIBUTION AND EMERGENCY CLERK Ancillary Procedure Department of Ophthalmology in [place], [place] [address] [place] [address] [place] [address] Justin Bunch M.D. [address] [place] [address] 06/15/2023 2:45 PM GAS DISTRIBUTION AND EMERGENCY CLERK Office Visit Department of Ophthalmology in [place], [place] [address] [place] [address] Justin Bunch M.D. [address] [place] [address] documented as of this encounter Visit Diagnoses [...] Score: 4 06/06/19 23 2:04 PM GAS DISTRIBUTION AND EMERGENCY CLERK documented as of this encounter Care Teams Community Pharmacist Relationship Specialty Start Date End Date Clover Delaney M.D. [address] [place] [address] PCP - General Internal Medicine 11/23/17 documented as of this encounter
--- OUTSIDE RECORDS SUMMARY | 2023-05-11 02:14 | XMS_ITS | Encounter Summary ---
Author Name Unknown Organization [facility] Address [address] [place] [address] Care Team Providers Care Diesel Engine Mechanic Apprentice Name Role Phone Clover Delaney M.D. Primary Care Provider +1- [phone] Encounter Details Date Type Department Care Team (Late st Contact Info) Description 09/08/2022 3:25 PM CDT Silent Schedule Department of Ophthalmology in [place], [place] [address] [place] [address] Justin Bunch M.D. [address] [place] [phone] Social History Tobacco Use Types Packs/Day Years [...] any clubs o r organizations such as hindu groups, unions, fraternal or athletic groups, or [...] Score 0 06/06/2022 [facility] of Occupat ional Health - Occupational Stress [...] Sex Assigned at Male 05/13/2021 10:11 AM FRUIT PICKER MACHINE OPERATOR Gender Identity Male 11/02/2017 7:22 PM CDT Sexual Orientation Straight 11/02/2017 7: 22 PM CDT documented as of this encounter Plan of Treatment Upcoming Encounters Date Type Department Care Team (Latest Contact Info) Description 05/28/2023 10:00 AM FRUIT PICKER MACHINE OPERATOR Appointment Department of Laboratory Medicine in [place], [place] [address] [place] [address] Mónica Portillo APRN, C.N.P., M.S. [address] [place] [phone] 05/28/2023 10:10 AM FRUIT PICKER MACHINE OPERATOR Appointment Department of Laboratory Medicine in [place], [place] [address] [place] [address] Mónica Portillo APRN, C.N.P., M.S. [address] [place] [phone] 05/29/2023 8:00 AM FRUIT PICKER MACHINE OPERATOR Office Visit Department of Community Internal Medicine in [place] [address] [place] [address] Clover Delaney M.D. [address] [place] [phone] Discharge Disposition: Home or Self Care 05/29/2023 10:15 AM FRUIT PICKER MACHINE OPERATOR Appointment Department of Radiology, [facility], in [place], [place] [address] [place] [phone] Mónica Portillo APRN, C.N.P., M.S. [address] [place] [phone] 05/29/2023 1:00 PM FRUIT PICKER MACHINE OPERATOR Procedure visit Department of Urology in [place], [place] [address] [place] [phone] Mónica Portillo APRN, C.N.P., M.S. [address] [place] [phone] 05/29/2023 3:00 PM FRUIT PICKER MACHINE OPERATOR Education Division of Nephrology and Hypertension in [place], [place] [address] [place] [phone] Mónica Portillo APRN, C.N.P., M.S. [address] [place] [phone] Sandeep Galicia R.N. [address] [place] [phone] 05/29/2023 4:00 PM FRUIT PICKER MACHINE OPERATOR Comprehensive Visit Division of Nephrology and Hypertension in [place], [place] [address] [place] [phone] Sera Casiano M.D., Ph.D. [address] [place] [phone] 06/15/2023 2:00 PM FRUIT PICKER MACHINE OPERATOR Ancillary Procedure Department of Ophthalmology in [place], [place] [address] [place] [phone] Justin Bunch M.D. [address] [place] [phone] 06/15/2023 2:30 PM FRUIT PICKER MACHINE OPERATOR Ancillary Procedure Department of Ophthalmology in [address] [phone] Justin Bunch M.D. [address] [place] [phone] 06/15/2023 2:45 PM FRUIT PICKER MACHINE OPERATOR Office Visit Department of Ophthalmology in [address] [address] Justin Bunch M.D. [address] [place] [phone] documented as of this encounter Procedures Procedure [...] Total Score: 4 06/06/19 23 2:04 PM FRUIT PICKER MACHINE OPERATOR documented as of this encounter Care Teams Diesel Engine Mechanic Apprentice Relationship Specialty Start Date End Date Clover Delaney M.D. [address] [place] [phone] PCP - General Internal Medicine 11/23/17 documented as of this encounter
--- OUTSIDE RECORDS SUMMARY | 2023-05-11 02:14 | XMS_ITS | Encounter Summary ---
Author Name Unknown Organization [facility] Address [address] [place] [address] Care Team Providers Care Critical Care Unit Nurse Name Role Phone Clover Delaney M.D. Primary Care Provider +1- [phone] Encounter Details Date Type Department Care Team (Late st Contact Info) Description 08/19/2022 Clinical Communication Division of Nephrology and Hypertension, [facility], in [place], [place] [address] [place] [phone] Mónica Portillo, TRIXIE, C.N.P., M.S. [address] [place] [address] Social History Tobacco Use Types Packs/Day Years [...] Sex Assigned at Male 05/13/2021 10:11 AM EYE PHYSICIAN Gender Identity Male 11/02/2017 7:22 PM CDT Sexual Orientation Straight 11/02/2017 7: 22 PM CDT documented as of this encounter Plan of Treatment Upcoming Encounters Date Type Department Care Team (Latest Contact Info) Description 05/28/2023 10:00 AM EYE PHYSICIAN Appointment Department of Laboratory Medicine in [place] [address] [place] [address] Mónica Portillo APRN, C.N.P., M.S. [address] [place] [phone] 05/28/2023 10:10 AM EYE PHYSICIAN Appointment Department of Laboratory Medicine in [place] [address] [place] [address] Mónica Portillo APRN, Kassandra.N.P., M.S. [address] [place] [phone] 05/29/2023 8:00 AM EYE PHYSICIAN Office Visit Department of Community Internal Medicine in [place] [address] [place] [address] Clover Delaney M.D. [address] [place] [phone] Discharge Disposition: Home or Self Care 05/29/2023 10:15 AM EYE PHYSICIAN Appointment Department of Radiology, [facility], in [place], [place] [address] [place] [phone] Mónica Portillo APRN, C.N.P., M.S. [address] [place] [phone] 05/29/2023 1:00 PM EYE PHYSICIAN Procedure visit Department of Urology in [place], [place] [address] [place] [phone] Mónica Portillo APRN, Kassandra.N.P., M.S. [address] [place] [phone] 05/29/2023 3:00 PM EYE PHYSICIAN Education Division of Nephrology and Hypertension in [place], [place] [address] [place] [phone] Mónica Portillo APRN, DrewNJosé LuisP., M.S. [address] [place] [phone] Sandeep Galicia R.N. [address] [place] [phone] 05/29/2023 4:00 PM EYE PHYSICIAN Comprehensive Visit Division of Nephrology and Hypertension in [place], [place] [address] [place] [phone] Sera Casiano M.D., Ph.D. [address] [place] [phone] 06/15/2023 2:00 PM EYE PHYSICIAN Ancillary Procedure Department of Ophthalmology in [place], [place] [address] [place] [phone] Justin Bunch M.D. [address] [place] [phone] 06/15/2023 2:30 PM EYE PHYSICIAN Ancillary Procedure Department of Ophthalmology in [address] [phone] Justin Bunch M.D. [address] [place] [phone] 06/15/2023 2:45 PM EYE PHYSICIAN Office Visit Department of Ophthalmology in [address] [phone] Justin Bunch M.D. [address] [place] [phone] documented as of this encounter Visit Diagnoses Not on filedocumented in this encounter Additional Health Concerns Assessment Noted Time PHQ-9 Depression Total Score: 4 06/06/19 23 2:04 PM EYE PHYSICIAN documented as of this encounter Care Teams Critical Care Unit Nurse Relationship Specialty Start Date End Date Clover Delaney M.D. [address] [place] [address] PCP - General Internal Medicine 11/23/17 documented as of this encounter
--- OUTSIDE RECORDS SUMMARY | 2023-05-11 02:14 | XMS_ITS | Encounter Summary ---
Author Name Unknown Organization [facility] Address [address] [place] [address] Care Team Providers Care Jack Spooler Tender Name Role Phone Clover Delaney M.D. Primary Care Provider +1- [phone] Encounter Details Date Type Department Care Team (Latest Contact Info) Description 09/08/2022 2:50 PM CDT Ancillary Procedure Department of Ophthalmology in [place], [place] [address] [place] [address] Da Paez M.D. 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 [...] Answer Date Recorded PHQ-2 Score 0 06/06/2022 [facility] of Occupat ional Health - Occupational Stress [...] Sex Assigned at Male 05/13/2021 10:11 AM STATIONARY PLANT OPERATORS Gender Identity Male 11/02/2017 7:22 PM CDT Sexual Orientation Straight 11/02/2017 7: 22 PM CDT documented as of this encounter Plan of Treatment Upcoming Encounters Date Type Department Care Team (Latest Contact Info) Description 05/28/2023 10:00 AM STATIONARY PLANT OPERATORS Appointment Department of Laboratory Medicine in [place] [address] [place] [address] Mónica Portillo APRN, C.N.P., M.S. [address] [place] [phone] 05/28/2023 10:10 AM STATIONARY PLANT OPERATORS Appointment Department of Laboratory Medicine in [place], [place] [address] [place] [address] Mónica Portillo APRN, C.N.P., M.S. [address] [place] [phone] 05/29/2023 8:00 AM STATIONARY PLANT OPERATORS Office Visit Department of Community Internal Medicine in [place] [address] [place] [address] Clover Delaney M.D. [address] [place] [phone] Discharge Disposition: Home or Self Care 05/29/2023 10:15 AM STATIONARY PLANT OPERATORS Appointment Department of Radiology, [facility], in [place], [place] [address] [place] [phone] Mónica Portillo APRN, C.N.P., M.S. [address] [place] [phone] 05/29/2023 1:00 PM [employer]ANT OPER[employer] Procedure visit Department of Urology in [place], [place] [address] [place] [address] Mónica Portillo APRN, C.N.P., M.S. [address] [place] [phone] 05/29/2023 3:00 PM [employer]ATIONARY PLANT OPERAT[employer] Education Division of Nephrology and Hypertension in [place], [place] [address] [place] [phone] Mónica Portillo APRN, CJosé LuisN.P., M.S. [address] [place] [phone] Sandeep Galicia R.N. [address] [place] [phone] 05/29/2023 4:00 PM [employer]ATION[employer] PLANT OPER[employer] Comprehensive Visit Division of Nephrology and Hypertension in [place], [place] [address] [place] [phone] Sera Casiano M.D., Ph.D. [address] [place] [phone] 06/15/2023 2:00 PM [employer] PLANT [employer]PER[employer] Ancillary Procedure Department of Ophthalmology in [place], [place] [address] [place] [phone] Justin Bunch M.D. [address] [place] [phone] 06/15/2023 2:30 PM [employer] PLANT OPER[employer] Ancillary Procedure Department of Ophthalmology in [address] [phone] uJstin Bunch M.D. [address] [place] [phone] 06/15/2023 2:45 PM [employer]ANT [employer] Office Visit Department of Ophthalmology in [address] [phone] Justin Bunch M.D. [address] [place] [phone] documented as of this encounter Procedures Procedure [...] Total Score: 4 06/06/19 23 2:04 PM [employer] documented as of this encounter Care Teams Jack Spooler Tender Relationship Specialty Start Date End Date Clover Delanye M.D. [address] [place] [address] PCP - General Internal Medicine 11/23/17 documented as of this encounter
--- OUTSIDE RECORDS SUMMARY | 2023-05-11 02:14 | XMS_ITS | Encounter Summary ---
Author Name Unknown Organization [facility] Address [address] [place] [address] Care Team Providers Care Mold Insert Changer Name Role Phone Clover Delaney M.D. Primary Care Provider +1- [phone] Encounter Details Date Type Department Care Team (Latest Contact Info) Description 09/01/2022 9:03 AM CDT - 09/01/2022 11:59 PM CDT Hospital Encounter Department of Laboratory Medicine in [address] [place] [phone] Mónica Portillo, TRIXIE, C.N.P., M.S. [address] [place] [phone] Anemia Of Chronic Renal Disease; Hypertension And [...] any clubs o r organizations such as sikh groups, unions, fraternal or athletic groups, or [...] Answer Date Recorded PHQ-2 Score 0 06/06/2022 [facility] of Occupat ional Health - Occupational Stress [...] Sex Assigned at Male 05/13/2021 10:11 AM ULTRASOUND TESTER Gender Identity Male 11/02/2017 7:22 PM [...] mouth as needed. 0 miscellaneous medical supply [facility] CPAP Supplies See Instructions, CPAP machine, mask 1 ea x 4 refills, headgear 1 ea x 2 refills, tubing 1 ea x 4 refills, filters 2 ea per month, tub 1 ea x 2 refills, mask seal 1 ea x 2 refills DX G47.33, length of need 99, 1 each, 0 Refill(s) 0 10/20/2016 miscellaneous medical supply [facility] Head Gear for CPAP Machine See Instructions, fax to patient at [phone], 1 each 0 01/17/2014 MULTIVITAMIN ORAL Daily [...] (Latest Contact Info) Description 05/28/2023 10:00 AM ULTRASOUND TESTER Appointment Department of Laboratory Medicine in [place], [place] [address] [place] [address] Mónica Portillo APRN, C.N.P., M.S. [address] [place] [phone] 05/28/2023 10:10 AM ULTRASOUND TESTER Appointment Department of Laboratory Medicine in [place], [place] [address] [place] [address] Mónica Portillo APRN, C.N.P., M.S. [address] [place] [phone] 05/29/2023 8:00 AM ULTRASOUND TESTER Office Visit Department of Community Internal Medicine in [place], [place] [address] [place] [address] Clover Delaney M.D. [address] [place] [phone] Discharge Disposition: Home or Self Care 05/29/2023 10:15 AM ULTRASOUND TESTER Appointment Department of Radiology, [facility] in [place], [place] [address] [place] [address] Mónica Portillo APRN, C.N.P., M.S. [address] [place] [phone] 05/29/2023 1:00 PM ULTRASOUND TESTER Procedure visit Department of Urology in [place], [place] [address] [place] [address] Mónica Portillo APRN, C.N.P., M.S. [address] [place] [phone] 05/29/2023 3:00 PM ULTRASOUND TESTER Education Division of Nephrology and Hypertension in [place], [place] [address] [place] [phone] Mónica Portillo APRN, DrewNTaylor., M.S. [address] [place] [phone] Sandeep Galicia R.N. [address] [place] [phone] 05/29/2023 4:00 PM ULTRASOUND TESTER Comprehensive Visit Division of Nephrology and Hypertension in [place], [place] [address] [place] [phone] Sera Casiano M.D., Ph.D. [address] [place] [phone] 06/15/2023 2:00 PM ULTRASOUND TESTER Ancillary Procedure Department of Ophthalmology in [place], [place] [address] [place] [phone] Justin Bunch M.D. [address] [place] [phone] 06/15/2023 2:30 PM ULTRASOUND TESTER Ancillary Procedure Department of Ophthalmology in [place], [place] [address] [place] [phone] Justin Bunch M.D. [address] [place] [phone] 06/15/2023 2:45 PM ULTRASOUND TESTER Office Visit Department of Ophthalmology in [address] [phone] Justin Bunch M.D. [address] [place] [phone] documented as of this encounter Procedures Procedure [...] Comment: Biotin has been identified by the hydrodynamics professor as a potential interfering substance. Higher concentrations [...] M.S. LAB BLOOD ADD-ON [facility] [address] [place] [address], [facility] RDWG [facility] [place] [address] * Iron and Total Iron-Binding Capacity (09/01/2022 9:12 AM CDT) Iron 59 50 - 150 mcg/dL 09/01/2022 12:32 PM CDT RDWG Total Iron Binding Capacity 262 250 - 400 mcg/dL 09/01/2022 12:32 PM CDT RDWG Percent Saturation 23 14 - 50 % 09/01/2022 12:32 PM CDT RDWG Blood (Blood, Venous) 09/01/2022 9:12 AM CDT 09/01/2022 12:11 PM CDT Kassandra Couch APRN.N.P., M.S. LAB BLOOD ADD-ON [facility] [place] [address], [facility] RDWG [facility] [place] [address] * (ABNORMAL) Uric Acid (09/01/2022 9:12 AM CDT) Uric Acid, P 8.7(H) 3.7 - 8.0 mg/dL 09/01/2022 12:33 PM CDT RDWG Blood (Blood, Venous) 09/01/2022 9:12 AM CDT 09/01/2022 12:10 PM CDT Kassandra Couch APRN.N.P., M.S. LAB BLOOD ADD-ON [facility] [address] [place] [address], [facility] RDWG [facility] [place] [address] * (ABNORMAL) Parathyroid Hormone (PTH) (09/01/2022 9:12 AM CDT) Parathyroid Hormone (PTH), S 114(H) 15 - 65 pg/mL 09/01/2022 12:40 PM CDT RDWG Comment: Biotin has been identified by the hydrodynamics professor as a potential interfering substance. Higher concentrations of biotin may be found in multivitamins, hair/nail supplements, and workout supplements. If the result does not match clinical observations, repeat testing after patient refrains from the use of supplements for at least 12 hours. Blood (Blood, Venous) 09/01/2022 9:12 AM CDT 09/01/2022 12:11 PM CDT Kassandra Couch APRN.N.P., M.S. LAB BLOOD ADD-ON [facility] [address] [place] [address], [facility] RDWG [facility] [place] [address] [place] [phone] * (ABNORMAL) Renal Function Panel (09/01/2022 9:12 [...] Kassandra Couch APRN.N.P., M.S. LAB BLOOD ADD-ON [facility] [address] [place] [address], [facility] RDWG [facility] [place] [address] [place] [phone] * (ABNORMAL) CBC without Differential (09/01/2022 9:12 [...] C.N.P., M.S. LAB BLOOD ADD-ON [facility] [address] [place] [address], [facility] [place] [address] [place] [address] documented in this encounter Visit Diagnoses Diagnosis Anemia Of Chronic Renal Disease Hypertension And Chronic Kidney Disease Stage 4 (HCC) documented in this encounter Additional Health Concerns Assessment Noted Time PHQ-9 Depression Total Score: 4 06/06/19 23 2:04 PM ULTRASOUND TESTER documented as of this encounter Care Teams Mold Insert Changer Relationship Specialty Start Date End Date Clover Delaney [facility].D. [address] [phone] PCP - General Internal Medicine 11/23/17 documented as of this encounter
--- OUTSIDE RECORDS SUMMARY | 2023-05-11 02:15 | XMS_ITS | Encounter Summary ---
Author Name Unknown Organization [facility] Address [address] [place] [address] Care Team Providers Care Wheel Press Clerk Name Role Phone Clover Delaney M.D. Primary Care Provider [phone] Encounter Details Date Type Department Care Team (Late st Contact Info) Description 06/10/2022 Orders Only Pharmacy Prior Auth RO [phone] Sadia Bernardo Social History Tobacco Use Types [...] often do you attend chur ch or pentecostalism services? 1 to 4 times per year [...] Answer Date Recorded PHQ-2 Score 0 06/06/2022 [facility] Answer [...] Sex Assigned at Male 05/13/2021 10:11 AM MAILS SUPERVISOR Gender Identity Male 11/02/2017 7:22 PM CDT Sexual Orientation Straight 11/02/2017 7: 22 PM CDT documented as of this encounter Plan of Treatment Upcoming Encounters Date Type Department Care Team (Latest Contact Info) Description 05/28/2023 10:00 AM MAILS SUPERVISOR Appointment Department of Laboratory Medicine in [place] [address] [place] [address] Mónica Portillo APRN, C.N.P., M.S. [address] [place] [phone] 05/28/2023 10:10 AM MAILS SUPERVISOR Appointment Department of Laboratory Medicine in [place], [place] [address] [place] [address] Mónica Portillo APRN, Kassandra.N.P., M.S. [address] [place] [phone] 05/29/2023 8:00 AM MAILS SUPERVISOR Office Visit Department of Community Internal Medicine in [place] [address] [place] [phone] Clover Delaney M.D. [address] [place] [phone] Discharge Disposition: Home or Self Care 05/29/2023 10:15 AM MAILS SUPERVISOR Appointment Department of Radiology, [facility], in [place], [place] [address] [place] [phone] Mónica Portillo APRN, Kassandra.N.P., M.S. [address] [place] [phone] 05/29/2023 1:00 PM MAILS SUPERVISOR Procedure visit Department of Urology in [place], [place] [address] [place] [phone] Mónica Portillo APRN, Kassandra.N.P., M.S. [address] [place] [phone] 05/29/2023 3:00 PM MAILS SUPERVISOR Education Division of Nephrology and Hypertension in [place], [place] [address] [place] [phone] Mónica Portillo APRN, C.N.P., M.S. [address] [place] [phone] Sandeep Galicia R.N. [address] [place] [phone] 05/29/2023 4:00 PM MAILS SUPERVISOR Comprehensive Visit Division of Nephrology and Hypertension in [place], [place] [address] [place] [phone] Sera Casiano M.D., Ph.D. [address] [place] [phone] 06/15/2023 2:00 PM MAILS SUPERVISOR Ancillary Procedure Department of Ophthalmology in [place], [place] [address] [place] [phone] Justin Bunch M.D. [address] [place] [phone] 06/15/2023 2:30 PM MAILS SUPERVISOR Ancillary Procedure Department of Ophthalmology in [address] [phone] Justin Bunch M.D. [address] [place] [phone] 06/15/2023 2:45 PM MAILS SUPERVISOR Office Visit Department of Ophthalmology in [address] [phone] Justin Bunch M.D. [address] [place] [phone] documented as of this encounter Visit Diagnoses Not on filedocumented in this encounter Additional Health Concerns Assessment Noted Time PHQ-9 Depression Total Score: 4 06/06/19 23 2:04 PM MAILS SUPERVISOR documented as of this encounter Care Teams Wheel Press Clerk Relationship Specialty Start Date End Date Clover Delaney M.D. [address] [place] [phone] PCP - General Internal Medicine 11/23/17 documented as of this encounter
--- OUTSIDE RECORDS SUMMARY | 2023-05-11 02:15 | XMS_ITS | Encounter Summary ---
Author Name Unknown Organization [facility] Address [address] [place] [address] Care Team Providers Care Clinical Exercise Physiologist Name Role Phone Clover Delaney M.D. Primary Care Provider [phone]- [phone] Encounter Details Date Type Department Care Team (Latest Contact Info) Description 07/25/2022 9:58 AM CDT - 07/25/2022 11:59 PM CDT Hospital Encounter Department of Laboratory Medicine in [address] [place] [phone] Mónica Portillo, TRIXIE, C.N.P., M.S. [address] [place] [phone] Hypertension And Chronic Kidney Disease Stage 4 [...] How often do you attend chur or baptism services? 1 to 4 times [...] Answer Date Recorded PHQ-2 Score 0 06/06/2022 [facility] [place] of Occupat ional Health - Occupational [...] in a long term (including now)? No 11/17/2021 Depression Answer Date [...] Sex Assigned at Male 05/13/2021 10:11 AM AS400 ADMINISTRATOR Gender Identity Male 11/02/2017 7:22 PM CDT [...] mouth as needed. 0 miscellaneous medical supply [facility] CPAP Supplies See Instructions, CPAP machine, mask 1 ea x 4 refills, headgear 1 ea x 2 refills, tubing 1 ea x 4 refills, filters 2 ea per month, tub 1 ea x 2 refills, mask seal 1 ea x 2 refills DX G47.33, length of need 99, 1 each, 0 Refill(s) 0 10/20/2016 miscellaneous medical supply [facility] Head Gear for CPAP Machine See Instructions, fax to patient at [phone], 1 each 0 01/17/2014 MULTIVITAMIN ORAL Daily [...] mouth daily. 90 tablet 3 01/27/2022 07/29/2022 pen needle, diabetic (UltiCare Pen Needle) 32 [...] (Latest Contact Info) Description 05/28/2023 10:00 AM AS400 ADMINISTRATOR Appointment Department of Laboratory Medicine in [place] [address] [place] [address] Mónica Portillo APRN, C.N.P., M.S. [address] [place] [phone] 05/28/2023 10:10 AM AS400 ADMINISTRATOR Appointment Department of Laboratory Medicine in [place] [address] [place] [phone] Mónica Portillo APRN, C.N.P., M.S. [address] [place] [phone] 05/29/2023 8:00 AM AS400 ADMINISTRATOR Office Visit Department of Community Internal Medicine in [place] [address] [place] [phone] Clover Delaney M.D. [address] [place] [phone] Discharge Disposition: Home or Self Care 05/29/2023 10:15 AM AS400 ADMINISTRATOR Appointment Department of Radiology, [facility] in [place], [place] [address] [place] [phone] Mónica Portillo APRN, C.N.P., M.S. [address] [place] [phone] 05/29/2023 1:00 PM AS400 ADMINISTRATOR Procedure visit Department of Urology in [place], [place] [address] [place] [phone] Mónica Portillo APRN, C.N.P., M.S. [address] [place] [phone] 05/29/2023 3:00 PM AS400 ADMINISTRATOR Education Division of Nephrology and Hypertension in [place], [place] [address] [place] [phone] Mónica Portillo APRN, Kassandra.N.P., M.S. [address] [place] [phone] Sandeep Galicia R.NJosé Luis [address] [place] [phone] 05/29/2023 4:00 PM AS400 ADMINISTRATOR Comprehensive Visit Division of Nephrology and Hypertension in [place], [place] [address] [place] [phone] Sera Casiano M.D., Ph.D. [address] [place] [phone] 06/15/2023 2:00 PM AS400 ADMINISTRATOR Ancillary Procedure Department of Ophthalmology in [place], [place] [address] [place] [phone] Justin Bunch M.D. [address] [place] [phone] 06/15/2023 2:30 PM AS400 ADMINISTRATOR Ancillary Procedure Department of Ophthalmology in [place], [place] [address] [place] [phone] Justin Bunch M.D. [address] [place] [phone] 06/15/2023 2:45 PM AS400 ADMINISTRATOR Office Visit Department of Ophthalmology in [place], [place] [address] [place] [address] Justin Bunch M.D. [address] [place] [address] documented as of this encounter Procedures Procedure [...] M.S. LAB BLOOD ADD-ON Performing Organization Address City/[facility]/ZIP Co de Phone Number [facility] [address] [address], [facility] [place] [address] * Ferritin (07/25/2022 10:10 AM CDT) Ferritin, S 231 31 - 409 mcg/L 07/25/2022 8:11 PM CDT RDW Comment: Biotin has been identified by the warehouse examiner as a potential interfering substance. Higher concentrations [...] M.S. LAB BLOOD ADD-ON Performing Organization Address [facility] de Phone Number [facility] [place] [address], [facility] [place] [address] * (ABNORMAL) Cystatin C with Estimated GFR [...] M.S. LAB BLOOD ADD-ON Performing Organization Address City/[facility]/ZIP Co de Phone Number [facility] [address] [place] [address], [facility] [address] [place] [address] * (ABNORMAL) Parathyroid Hormone (PTH) (07/25/2022 10:10 AM CDT) Parathyroid Hormone (PTH), S 102(H) 15 - 65 pg/mL 07/25/2022 8:11 PM CDT RDW Comment: Biotin has been identified by the warehouse examiner as a potential interfering substance. Higher concentrations of biotin may be found in multivitamins, hair/nail supplements, and workout supplements. If the result does not match clinical observations, repeat testing after patient refrains from the use of supplements for at least 12 hours. Blood (Blood, Venous) 07/25/2022 10:10 AM CDT 07/25/2022 7:32 PM CDT Drew Couch APRNNTaylor., M.S. LAB BLOOD ADD-ON [facility] [address] [place] [address], [place] RDWG [facility] [place] [address] [place] [address] * (ABNORMAL) Renal Function Panel (07/25/2022 10:10 [...] 10:10 AM CDT 07/25/2022 11:54 AM CDT Kassandra Couch APRN.N.P., M.S. LAB BLOOD ADD-ON [facility] [address] [place] [address], [facility] RDWG [facility] [place] [address] [place] [phone] * (ABNORMAL) CBC without Differential (07/25/2022 10:10 [...] Portillo APRN, C.N.P., M.S. LAB BLOOD ADD-ON [facility] [address] [place] [address], [facility] [place] [address] [place] [phone] documented in this encounter Visit Diagnoses Diagnosis Hypertension And Chronic Kidney Disease Stage 4 (HCC) Anemia Of Chronic Renal Disease documented in this encounter Additional Health Concerns Assessment Noted Time PHQ-9 Depression Total Score: 4 06/06/19 23 2:04 PM AS400 ADMINISTRATOR documented as of this encounter Care Teams Clinical Exercise Physiologist Relationship Specialty Start Date End Date Clover Delaney M.D. [address] [facility] [place] [phone] PCP - General Internal Medicine 11/23/17 documented as of this encounter
--- OUTSIDE RECORDS SUMMARY | 2023-05-11 02:15 | XMS_ITS | Encounter Summary ---
Author Name Unknown Organization [facility] Address [address] [place] [address] Care Team Providers Care Plant Inspector Name Role Phone Clover Delaney M.D. Primary Care Provider [phone]- [phone] Reason for Visit * Reason Onset Date Comments infusions 08/08/2022 Encounter Details Date Type Department Care Team (Late st Contact Info) Description 08/08/2022 Clinical Communication Division of Nephrology and Hypertension, [facility], in [place], [place] [address] [place] [phone] Mónica Portillo, TRIXIE, C.N.P., M.S. [address] [place] [phone] infusions Social History Tobacco Use Types Packs/Day [...] often do you attend chur ch or judaism services? Never 07/28/2022 Do you belong to [...] Answer Date Recorded PHQ-2 Score 0 06/06/2022 [facility] of Occupat ional Health - Occupational [...] Sex Assigned at Male 05/13/2021 10:11 AM MOLDED GOODS OPERATOR Gender Identity Male 11/02/2017 7:22 PM CDT Sexual Orientation Straight 11/02/2017 7: 22 PM CDT documented as of this encounter Plan of Treatment Upcoming Encounters Date Type Department Care Team (Latest Contact Info) Description 05/28/2023 10:00 AM MOLDED GOODS OPERATOR Appointment Department of Laboratory Medicine in [place], [place] [address] [place] [phone] Mónica Portillo APRN, C.N.P., M.S. [address] [place] [phone] 05/28/2023 10:10 AM MOLDED GOODS OPERATOR Appointment Department of Laboratory Medicine in [place], [place] [address] [place] [address] [phone] Mónica Portillo APRN, Kassandra.N.P., M.S. [address] [place] [phone] 05/29/2023 8:00 AM MOLDED GOODS OPERATOR Office Visit Department of Community Internal Medicine in [place], [place] [address] [place] [address] [phone] Clover Delaney M.D. [address] [place] [phone] Discharge Disposition: Home or Self Care 05/29/2023 10:15 AM MOLDED GOODS OPERATOR Appointment Department of Radiology, [facility], in [place], [place] [address] [place] [phone] Mónica Portillo APRN, Kassandra.N.P., M.S. [address] [place] [phone] 05/29/2023 1:00 PM MOLDED GOODS OPERATOR Procedure visit Department of Urology in [place], [place] [address] [place] [phone] Mónica Portillo APRN, Kassandra.N.P., M.S. [address] [place] [phone] 05/29/2023 3:00 PM MOLDED GOODS OPERATOR Education Division of Nephrology and Hypertension in [place], [place] [address] [place] [phone] Mónica Portillo APRN, C.N.P., M.S. [address] [place] [phone] Sandeep Galicia R.N. [address] [place] [phone] 05/29/2023 4:00 PM MOLDED GOODS OPERATOR Comprehensive Visit Division of Nephrology and Hypertension in [place], [place] [address] [place] [phone] Sera Casiano M.D., Ph.D. [address] [place] [phone] 06/15/2023 2:00 PM MOLDED GOODS OPERATOR Ancillary Procedure Department of Ophthalmology in [place], [place] [address] [place] [phone] Justin Bunch M.D. [address] [place] [phone] 06/15/2023 2:30 PM MOLDED GOODS OPERATOR Ancillary Procedure Department of Ophthalmology in [address] [phone] Justin Bunch M.D. [address] [place] [phone] 06/15/2023 2:45 PM MOLDED GOODS OPERATOR Office Visit Department of Ophthalmology in [address] [phone] Justin Bunch M.D. [address] [place] [phone] documented as of this encounter Visit Diagnoses Not on filedocumented in this encounter Additional Health Concerns Assessment Noted Time PHQ-9 Depression Total Score: 4 06/06/19 23 2:04 PM MOLDED GOODS OPERATOR documented as of this encounter Care Teams Plant Inspector Relationship Specialty Start Date End Date Clover Delaney M.D. [address] [place] [address] PCP - General Internal Medicine 11/23/17 documented as of this encounter
--- OUTSIDE RECORDS SUMMARY | 2023-05-11 02:15 | XMS_ITS | Encounter Summary ---
Author Name Unknown Organization [facility] Address [address] [place] [address] Care Team Providers Care Passenger Booking Clerk Name Role Phone Clover Delaney M.D. Primary Care Provider [phone]- [phone] Encounter Details Date Type Department Care Team (Late st Contact Info) Description 07/05/2022 Orders Only Department of Community Internal Medicine in [place], [place] [address] [place] [address] [place] [phone] Clover Delaney M.D. [address] [place] [address] Diabetes Mellitus Type 2 Hyperglycemia [...] How often do you attend chur or uatsdin services? 1 to 4 times per year [...] Answer Date Recorded PHQ-2 Score 0 06/06/2022 [facility] of Occupat ional Health - Occupational Stress [...] slept in a mcc (including now)? No 11/17/2021 Depression Answer Date [...] Sex Assigned at Male 05/13/2021 10:11 AM WIRE TWISTING MACHINE OPERATOR Gender Identity Male 11/02/2017 7:22 PM CDT Sexual Orientation Straight 11/02/2017 7: 22 PM CDT documented as of this encounter Plan of Treatment Upcoming Encounters Date Type Department Care Team (Latest Contact Info) Description 05/28/2023 10:00 AM WIRE TWISTING MACHINE OPERATOR Appointment Department of Laboratory Medicine in [place], [place] [address] [place] [phone] Mónica Portillo APRN, C.N.P., M.S. [address] [place] [phone] 05/28/2023 10:10 AM WIRE TWISTING MACHINE OPERATOR Appointment Department of Laboratory Medicine in [place], [place] [address] [place] [address] [phone] Mónica Portillo APRN, C.N.P., M.S. [address] [place] [phone] 05/29/2023 8:00 AM WIRE TWISTING MACHINE OPERATOR Office Visit Department of Community Internal Medicine in [place], [place] [address] [place] [phone] Clover Delaney M.D. [address] [place] [phone] Discharge Disposition: Home or Self Care 05/29/2023 10:15 AM WIRE TWISTING MACHINE OPERATOR Appointment Department of Radiology, [facility], in [place], [place] [address] [place] [phone] Mónica Portillo APRN, C.N.P., M.S. [address] [place] [phone] 05/29/2023 1:00 PM WIRE TWISTING MACHINE OPERATOR Procedure visit Department of Urology in [place], [place] [address] [place] [phone] Mónica Portillo APRN, Kassandra.N.P., M.S. [address] [place] [phone] 05/29/2023 3:00 PM WIRE TWISTING MACHINE OPERATOR Education Division of Nephrology and Hypertension in [place], [place] [address] [place] [phone] Mónica Portillo APRN, C.N.P., M.S. [address] [place] [phone] Sandeep Galicia R.N. [address] [place] [phone] 05/29/2023 4:00 PM WIRE TWISTING MACHINE OPERATOR Comprehensive Visit Division of Nephrology and Hypertension in [place], [place] [address] [place] [phone] Sera Casiano M.D., Ph.D. [address] [place] [phone] 06/15/2023 2:00 PM WIRE TWISTING MACHINE OPERATOR Ancillary Procedure Department of Ophthalmology in [place], [place] [address] [place] [phone] Justin Bunch M.D. [address] [place] [phone] 06/15/2023 2:30 PM WIRE TWISTING MACHINE OPERATOR Ancillary Procedure Department of Ophthalmology in [address] [phone] Justin Bunch M.D. [address] [place] [phone] 06/15/2023 2:45 PM WIRE TWISTING MACHINE OPERATOR Office Visit Department of Ophthalmology in [address] [phone] Justin Bunch M.D. [address] [place] [phone] documented as of this encounter Visit Diagnoses Diagnosis Diabetes Mellitus Type 2 Hyperglycemia (HCC) documented in this encounter Additional Health Concerns Assessment Noted Time PHQ-9 Depression Total Score: 4 06/06/19 23 2:04 PM WIRE TWISTING MACHINE OPERATOR documented as of this encounter Care Teams Passenger Booking Clerk Relationship Specialty Start Date End Date Clover Delaney M.D. [address] [place] [address] PCP - General Internal Medicine 11/23/17 documented as of this encounter
--- OUTSIDE RECORDS SUMMARY | 2023-05-11 02:15 | XMS_ITS | Encounter Summary ---
Author Name Unknown Organization [facility] Address [address] [place] [address] Care Team Providers Care Director Of Business Applications Name Role Phone Clover Delaney M.D. 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 [address] [place] [address] Referral ID Status Reason Start Date Expiration Date V isits Requested Visits Authorized [id number] Authorized 1 1 SPORTATION JOB TITLES Reason for Visit * Reason Comments Fatigue * Appointment Request (Routine) - Closed Specialty Diagnoses / Procedures Referred By Yenny hunter Referred To Contact Community Internal Medicine Referral ID Status Reason Start Date Expiration Date Visits Re quested Visits Authorized [id number] Closed 06/02/2022 06/02/2023 1 1 Encounter Details Date Type Department Care Team (Latest Contact Info) Description 06/06/2022 1:30 PM TRANSPORTATION JOB TITLES Office Visit Department of Community Internal Medicine in [address] [place] [phone] Clover Delaney M.D. [address] [place] [phone] Anemia (Primary Dx); Diabetes Mellitus Type 2 [...] week 11/17/2021 How often do you attend [facility] or cheondoism services? 1 to 4 times per year [...] slept in a fpc (including now)? No 11/17/2021 Depression Answer Date [...] Sex Assigned at Male 05/13/2021 10:11 AM TRANSPORTATION JOB TITLES Gender Identity Male 11/02/2017 7:22 PM CDT Sexual Orientation Straight 11/02/2017 7: 22 PM CDT documented as of this encounter Last Filed Vital Signs Vital Sign Reading Time Taken Comments Blood Pressure 182/72 06/06/2022 1:31 PM TRANSPORTATION JOB TITLES Pulse 57 06/06/2022 1:31 PM TRANSPORTATION JOB TITLES Temperature 35.9 ??C (96.6 ??F) 06/06/2022 1:22 PM CS T Respiratory Rate - - Oxygen Saturation 95% 06/06/2022 1:31 PM TRANSPORTATION JOB TITLES Inhaled Oxygen Concentration - - Weight 157 kg (345 lb 10.9 oz) 06/06/2022 1:22 P M TRANSPORTATION JOB TITLES Height - - Body Mass Index 50.05 03/31/2022 2:55 PM TRANSPORTATION JOB TITLES documented in this encounter Progress Notes * [...] a day as needed. miscellaneous medical supply [facility] CPAP Supplies See Instructions, CPAP machine, mask 1 ea x 4 refills, headgear 1 ea x 2 refills, tubing 1 ea x 4 refills, filters 2 ea per month, tub 1 ea x 2 refills, mask seal 1 ea x 2 refills DX G47.33, length of need 99, 1 each, 0 Refill(s) miscellaneous medical supply [facility] Head Gear for CPAP Machine See Instructions, fax to patient at [phone], 1 each MULTIVITAMIN ORAL Daily Multiple Vitamins See Instructions, Take 1 tablet by mouth daily. multivitamin-eye (PRESERVISION LUTEIN) 226 mg-90 mg-5 mg-0.8 mg capsule Take 2 capsules by mouth daily. ONETOUCH DELICA LANCETS 33 gauge [facility] OneTouch Ultra Test strips Use to test [...] also benefit from the immediate feedback of [employer] CGM system, so will try to get [...] and/or therapy. Other orders - Thyroid Function Crowheart; Future; Expected date: 06/06/2022 - Hemoglobin A1c; [...] the above chronic conditions. Clover Delaney M.D. SPORTATION JOB TITLES documented in this encounter Plan of Treatment Upcoming Encounters Date Type Department Care Team (Latest Contact Info) Description 05/28/2023 10:00 AM TRANSPORTATION JOB TITLES Appointment Department of Laboratory Medicine in [address] [place] [address] Mónica Portillo APRN, C.N.P., M.S. [address] [place] [phone] 05/28/2023 10:10 AM TRANSPORTATION JOB TITLES Appointment Department of Laboratory Medicine in [place] [address] [place] [address] Mónica Portillo APRN, Kassandra.N.P., M.S. [address] [place] [phone] 05/29/2023 8:00 AM TRANSPORTATION JOB TITLES Office Visit Department of Community Internal Medicine in [place] [address] [place] [address] Clover Delaney M.D. [address] [place] [phone] Discharge Disposition: Home or Self Care 05/29/2023 10:15 AM TRANSPORTATION JOB TITLES Appointment Department of Radiology, [facility], in [place], [place] [address] [place] [phone] Mónica Portillo APRN, C.N.P., M.S. [address] [place] [phone] 05/29/2023 1:00 PM TRANSPORTATION JOB TITLES Procedure visit Department of Urology in [place], [place] [address] [place] [phone] Mónica Portillo APRN, C.N.P., M.S. [address] [place] [phone] 05/29/2023 3:00 PM TRANSPORTATION JOB TITLES Education Division of Nephrology and Hypertension in [place], [place] [address] [place] [phone] Mónica Portillo APRN, C.N.P., M.S. [address] [place] [phone] Sandeep Galicia R.N. [address] [place] [phone] 05/29/2023 4:00 PM TRANSPORTATION JOB TITLES Comprehensive Visit Division of Nephrology and Hypertension in [place], [place] [address] [place] [phone] Sera Casiano M.D., Ph.D. [address] [place] [phone] 06/15/2023 2:00 PM TRANSPORTATION JOB TITLES Ancillary Procedure Department of Ophthalmology in [address] [phone] Justin Bunch M.D. [address] [place] [phone] 06/15/2023 2:30 PM TRANSPORTATION JOB TITLES Ancillary Procedure Department of Ophthalmology in [address] [phone] Justin Bunch M.D. [address] [place] [phone] 06/15/2023 2:45 PM TRANSPORTATION JOB TITLES Office Visit Department of Ophthalmology in [address] [phone] Justin Bunch M.D. 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) Expected: 06/09/2022 (Approximate), Expires: 09/07/2023 documented as of this encounter Procedures Procedure Name Priority Date/Time Associated Diagnosis Comments THYROID FUNCTION CASCADE, S Routine 06/06/2022 2:31 PM TRANSPORTATION JOB TITLES Hypertension And Chronic Kidney Disease Stage 4 (HCC) Anemia Fatigue CBC WITH DIFFERENTIAL, B Routine 06/06/2022 2:31 PM TRANSPORTATION JOB TITLES Anemia HEMOGLOBIN A1C, B Routine 06/06/2022 2:3 0 PM TRANSPORTATION JOB TITLES 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 LAB BLOOD ADD-ON [facility] [address] [place] [address], [facility] in [place] [address] [place] [phone] * (ABNORMAL) CBC with Differential, Blood (06/06/2022 2:31 PM TRANSPORTATION JOB TITLES) Hemoglobin 9.6(L) 13.2 - 16.6 g/dL 06/06/2022 7:44 PM TRANSPORTATION JOB TITLES [facility] Hematocrit 30.0(L) 38.3 - 48.6 % 06/06/2022 7:44 PM TRANSPORTATION JOB TITLES [facility] Erythrocytes 3.21(L) 4.35 - 5.65 x10(12)/L 06/06/2022 7:44 PM TRANSPORTATION JOB TITLES [facility] MCV 93.5 78.2 - 97.9 fL 06/06/2022 7:44 PM TRANSPORTATION JOB TITLES [facility] RBC Distrib Width 14.0 11.8 - 14.5 % 06/06/2022 7:44 PM TRANSPORTATION JOB TITLES [facility] Platelet Count 226 135 - 317 x10(9)/L 06/06/2022 7:44 PM TRANSPORTATION JOB TITLES [facility] Leukocytes 12.0(H) 3.4 - 9.6 x10(9)/L 06/06/2022 7:44 PM TRANSPORTATION JOB TITLES [facility] Neutrophils 10.71(H) 1.56 - 6.45 x10(9)/L 06/06/2022 7:44 PM TRANSPORTATION JOB TITLES [facility] Lymphocytes 0.62(L) 0.95 - 3.07 x10(9)/L 06/06/2022 7:44 PM TRANSPORTATION JOB TITLES [facility] Monocytes 0.52 0.26 - 0.81 x10(9)/L 06/06/2022 7:44 PM TRANSPORTATION JOB TITLES [facility] Eosinophils 0.13 0.03 - 0.48 x10(9)/L 06/06/2022 7:44 PM TRANSPORTATION JOB TITLES [facility] Basophils 0.04 0.01 - 0.08 x10(9)/L 06/06/2022 7:44 PM TRANSPORTATION JOB TITLES [facility] Blood (Blood, Venous) 06/06/2022 2:31 PM TRANSPORTATION JOB TITLES 06/06/2022 7:17 PM TRANSPORTATION JOB TITLES Clover Delaney M.D. LAB BLOOD ADD-ON [facility] [address] [place] [address], [facility] in [place] [address] [place] [address] * (ABNORMAL) Hemoglobin A1c (06/06/2022 2:30 PM TRANSPORTATION JOB TITLES) Hemoglobin A1c, B 8.3(H) 4.2 - 5.6 % 06/06/2022 7:59 PM TRANSPORTATION JOB TITLES [facility] Comment: Hemoglobin A1c values greater than or equal to 6.5 percent are diagnostic for diabetes mellitus. ??Diagnosis should be confirmed by repeat testing. ??In diabetic patients, HbA1c goals should be discussed with healthcare provider. Blood (Blood, Peripheral Draw) 06/06/2022 2:30 PM TRANSPORTATION JOB TITLES 06/06/2022 7:17 PM TRANSPORTATION JOB TITLES Clover Delaney M.D. LAB BLOOD ADD-ON [facility] [address] [place] [address], [facility] in [place] [address] [place] [address] * (ABNORMAL) Comprehensive Metabolic Panel (06/06/2022 2:30 PM TRANSPORTATION JOB TITLES) Potassium, P 4.4 3.6 - 5.2 mmol/L 06/06/2022 7:49 PM TRANSPORTATION JOB TITLES RDWG Sodium, P 133(L) 135 - 145 mmol/L 06/06/2022 7:49 PM TRANSPORTATION JOB TITLES [facility] Chloride, P 98 98 - 107 mmol/L 06/06/2022 7:49 PM TRANSPORTATION JOB TITLES [facility] Bicarbonate, P 23 22 - 29 mmol/L 06/06/2022 7:49 PM TRANSPORTATION JOB TITLES [facility] Anion Gap, P 12 7 - 15 06/06/2022 7:49 PM TRANSPORTATION JOB TITLES [facility] BUN (Blood Urea Nitrogen), P 60(H) 8 - 24 mg/dL 06/06/2022 7:49 PM TRANSPORTATION JOB TITLES [facility] Creatinine 2.84(H) 0.74 - 1.35 mg/dL 06/06/2022 7:49 PM TRANSPORTATION JOB TITLES [facility]DW[facility] Estimated GFR (eGFR) 22(L) >=60 mL/min/BS A 06/06/2022 7:49 PM TRANSPORTATION JOB TITLES [facility] Comment: Estimated GFR calculated using the 2020 CKD_EPI creatinine equation. Calcium, Total, P 8.5(L) 8.8 - 10.2 mg/dL 06/06/2022 7:49 PM TRANSPORTATION JOB TITLES RDW[facility] Glucose, P 435(CH) 70 - 140 mg/dL 06/06/2022 8:03 PM TRANSPORTATION JOB TITLES [facility] Protein, Total, P 6.4 6.3 - 7.9 g/dL 06/06/2022 7:49 PM TRANSPORTATION JOB TITLES [facility] Albumin, P 3.4(L) 3.5 - 5.0 g/dL 06/06/2022 7:49 PM TRANSPORTATION JOB TITLES [facility] Aspartate Aminotransferase (AST), P 18 8 - 48 U/L 06/06/2022 7:49 PM TRANSPORTATION JOB TITLES [facility] Alkaline Phosphatase, P 95 40 - 129 U/L 06/06/2022 7:49 PM TRANSPORTATION JOB TITLES [facility] Alanine Aminotransferase (ALT), P 14 7 - 55 U/L 06/06/2022 7:49 PM TRANSPORTATION JOB TITLES RDW[facility] Bilirubin, Total, P 0.3 <=1.2 mg/dL 06/06/2022 7:49 PM TRANSPORTATION JOB TITLES [facility] Blood (Blood, Venous) 06/06/2022 2:30 PM TRANSPORTATION JOB TITLES 06/06/2022 7:18 PM TRANSPORTATION JOB TITLES Clover Delaney M.D. LAB BLOOD ADD-ON [facility] [address] [place] [address], [facility] in [place] [address] [place] [address] documented in this encounter Visit Diagnoses Diagnosis [...] Total Score: 4 06/06/19 23 2:04 PM TRANSPORTATION JOB TITLES documented as of this encounter Care Teams Director Of Business Applications Relationship Specialty Start Date End Date Clover Delaney M.D. [address] [place] [address] [place] [phone] PCP - General Internal Medicine 11/23/17 documented as of this encounter
--- OUTSIDE RECORDS SUMMARY | 2023-05-11 02:15 | XMS_ITS | Encounter Summary ---
Author Name Unknown Organization [facility] Address [address] [place] [address] Care Team Providers Care Vehicle Delivery Worker Name Role Phone Clover Delaney M.D. Primary Care Provider [phone] Reason for Referral * Outpatient (Routine) - Authorized Specialty Diagnoses / Procedures Referred By Contanthony t Referred To Contact Nutrition Diagnoses Anemia Of Chronic Renal Disease Hypertension And Chronic Kidney Disease Stage 4 (HCC) Mónica Portillo APRN, C.NJosé LuisP., M.S. [address] [place] [phone] [facility] Referral ID Status Reason Start Date Expiration Date V isits Requested Visits Authorized [id number] Authorized 07/29/2022 07/29/2023 1 1 Scheduling Instructions This appointment should ideally be scheduled AFTER the [facility] Worker Consults, but must at least be scheduled 48 hours after 24-hour urine collection is complete. Virtual visit is acceptable for this dietitian visit. Labs at [facility] and virtual follow up at patient's convenience during the month of August please * Outpatient (Routine) - Closed Specialty Diagnoses / Procedures Referred By Contanthony t Referred To Contact Nephrology and Hypertension Mónica Portillo APRN, C.N.Allie., M.S. [address] [place] [phone] [facility] Referral ID Status Reason Start Date Expiration Date Visits Re quested Visits Authorized [id number] Closed 07/29/2022 07/28/2025 1 1 Scheduling Instructions Labs at [facility] and virtual follow up at patient's convenience during the month of August please Reason for Visit * Reason Comments Nephropathy * Outpatient (Routine) - Closed Specialty Diagnoses / Procedures Referred By Yenny t Referred To Contact Nephrology and Hypertension Mónica Portillo APRN, C.N.Allie., M.S. [address] [place] [phone] [facility] Referral ID Status Reason Start Date Expiration Date Visits Re quested Visits Authorized [id number] Closed 04/10/2022 04/09/2025 1 1 Encounter Details Date Type Department Care Team (Latest Contact Info) Description 07/29/2022 10:00 AM CDT Office Visit Division of Nephrology and Hypertension in [place], [place] [address] [place] [phone] Mónica Portillo APRN, C.N.P., M.S. [address] [place] [phone] Anemia Of Chronic Renal Disease (Primary Dx); [...] often do you attend chur ch or buddhist services? Never 07/28/2022 Do you belong to [...] Answer Date Recorded PHQ-2 Score 0 06/06/2022 [facility] [place] of Occupat ional Health - Occupational Stress [...] Sex Assigned at Male 05/13/2021 10:11 AM GLASSWARE MAKER Gender Identity Male 11/02/2017 7:22 PM [...] and maintained on prednisone and with flare [id number] in the setting of surgical intervention for [...] Feraheme infusions to his oncologist at [facility]. Virtual CKD follow-up in 1 month with labs at [facility]. #2 CKD treatment options Today's focus [...] (Latest Contact Info) Description 05/28/2023 10:00 AM GLASSWARE MAKER Appointment Department of Laboratory Medicine in [place] [address] [place] [phone] Mónica Portillo APRN, C.N.P., M.S. [address] [place] [phone] 05/28/2023 10:10 AM GLASSWARE MAKER Appointment Department of Laboratory Medicine in [place] [address] [place] [phone] Mónica Portillo APRN, C.N.P., M.S. [address] [place] [phone] 05/29/2023 8:00 AM GLASSWARE MAKER Office Visit Department of Community Internal Medicine in [place] [address] [place] [phone] Clover Delaney M.D. [address] [place] [phone] Discharge Disposition: Home or Self Care 05/29/2023 10:15 AM GLASSWARE MAKER Appointment Department of Radiology, [facility], in [place], [place] [address] [place] [address] Mónica Portillo APRN, C.N.P., M.S. [address] [place] [phone] 05/29/2023 1:00 PM GLASSWARE MAKER Procedure visit Department of Urology in [place], [place] [address] [place] [phone] Mónica Portillo APRN, C.NTaylor., M.S. [address] [place] [phone] 05/29/2023 3:00 PM GLASSWARE MAKER Education Division of Nephrology and Hypertension in [place], [place] [address] [place] [phone] Mónica Portillo APRN, C.NJosé LuisP., M.S. [address] [place] [phone] Sandeep Galicia R.N. [address] [place] [phone] 05/29/2023 4:00 PM GLASSWARE MAKER Comprehensive Visit Division of Nephrology and Hypertension in [place], [place] [address] [place] [phone] Sera Casiano M.D., Ph.D. [address] [place] [phone] 06/15/2023 2:00 PM GLASSWARE MAKER Ancillary Procedure Department of Ophthalmology in [place], [place] [address] [place] [phone] Justin Bunch M.D. [address] [place] [phone] 06/15/2023 2:30 PM GLASSWARE MAKER Ancillary Procedure Department of Ophthalmology in [place], [place] [address] [place] [phone] Justin Bunch M.D. [address] [place] [phone] 06/15/2023 2:45 PM GLASSWARE MAKER Office Visit Department of Ophthalmology in [place], [place] [address] [place] [address] Justin Bunch M.D. [address] [place] [phone] Scheduled Referrals Name Type Priority Associated Diagnoses [...] Comment: Biotin has been identified by the securities underwriter as a potential interfering substance. Higher concentrations of biotin may be found in multivitamins, hair/nail supplements, and workout supplements. If the result does not match clinical observations, repeat testing after patient refrains from the use of supplements for at least 12 hours. Blood (Blood, Venous) 09/01/2022 9:12 AM CDT 09/01/2022 12:11 PM CDT Mónica Portillo APRN C.N.P., M.S. LAB BLOOD ADD-ON [facility] [address] [place] [address], [facility] in [place] [address] [place] [phone] * Iron and Total Iron-Binding Capacity (09/01/2022 [...] Drew Couch APRNNTaylor., M.S. LAB BLOOD ADD-ON [facility] [address] [place] [address], [facility] in [address] [phone] * (ABNORMAL) Uric Acid (09/01/2022 9:12 AM CDT) Uric Acid, P 8.7(H) 3.7 - 8.0 mg/dL 09/01/2022 12:33 PM CDT [facility] Blood (Blood, Venous) 09/01/2022 9:12 AM CDT 09/01/2022 12:10 PM CDT Kassandra Couch APRN.N.P., M.S. LAB BLOOD ADD-ON [facility] [address] [place] [address], [facility] in [address] [phone] * (ABNORMAL) Parathyroid Hormone (PTH) (09/01/2022 9:12 AM CDT) Parathyroid Hormone (PTH), S 114(H) 15 - 65 pg/mL 09/01/2022 12:40 PM CDT [facility] Comment: Biotin has been identified by the securities underwriter as a potential interfering substance. Higher concentrations of biotin may be found in multivitamins, hair/nail supplements, and workout supplements. If the result does not match clinical observations, repeat testing after patient refrains from the use of supplements for at least 12 hours. Blood (Blood, Venous) 09/01/2022 9:12 AM CDT 09/01/2022 12:11 PM CDT Drew Couch APRNN.P., M.S. LAB BLOOD ADD-ON [facility] [address] [place] [address], [facility] in [place] [address] [place] [phone] * (ABNORMAL) Renal Function Panel (09/01/2022 9:12 [...] Portillo APRN, C.N.P., M.S. LAB BLOOD ADD-ON [facility] 701 [place] [address], [facility] in [place] 701 [place] [address] * (ABNORMAL) CBC without Differential (09/01/2022 9:12 [...] M.S. LAB BLOOD ADD-ON Performing Organization Address City/[facility] Co de Phone Number [facility] 701 [place] [address], [facility] in [place] [address] [place] [phone] * (ABNORMAL) Albumin, Random, Urine (09/01/2022 9:08 AM CDT) Microalbumin 1436.4 mg/L 09/01/2022 1:45 PM CDT [facility] Creatinine 42 mg/dL 09/01/2022 12:49 PM CDT [facility] Albumin/Creatinin e Ratio 3420(H) <17 mg/g 09/01/2022 1:45 PM CDT [facility] Urine (Urine, Midstream) 09/01/2022 9:08 AM CDT 09/01/2022 12:09 PM CDT Drew Couch APRNNTaylor., M.S. LAB URINE ORDERABLES Performing Organization Address [facility] Co de Phone Number [facility] 701 [place] [address], [facility] in [place] [address] [place] [address], [place] [phone] * (ABNORMAL) Urinalysis with Microscopic: Urine, Midstream [...] 8.0 09/01/2022 12:24 PM CDT [facility] Specific Una 1.010 1.001 - 1.035 09/01/2022 12:24 PM [...] Portillo APRN C.N.P., M.S. LAB URINE ORDERABLES [facility] [address] [address], [facility] in [place] [address] [phone] documented in this encounter Visit Diagnoses Diagnosis Anemia Of Chronic Renal Disease- Primary Hypertension And Chronic Kidney Disease Stage 4 (HCC) documented in this encounter Additional Health Concerns Assessment Noted Time PHQ-9 Depression Total Score: 4 06/06/19 23 2:04 PM GLASSWARE MAKER documented as of this encounter Care Teams Vehicle Delivery Worker Relationship Specialty Start Date End Date Clover Delaney M.D. [address] [phone] PCP - General Internal Medicine 11/23/17 documented as of this encounter
--- OUTSIDE RECORDS SUMMARY | 2023-05-11 02:15 | XMS_ITS | Encounter Summary ---
Author Name Unknown Organization [facility] Address [address] [place] [address] Care Team Providers Care Matting Press Tender Name Role Phone Clover Delaney M.D. Primary Care Provider +[phone]- [phone] Encounter Details Date Type Department Care Team (Latest Contact Info) Description 07/25/2022 9:58 AM CDT - 07/25/2022 11:59 PM CDT Hospital Encounter Department of Laboratory Medicine in [address] [place] [phone] Mónica Portillo, TRIXIE, C.N.P., M.S. [address] [place] [phone] Hypertension And Chronic Kidney Disease Stage 4 [...] How often do you attend chur or yarsanism services? 1 to 4 times per year [...] Answer Date Recorded PHQ-2 Score 0 06/06/2022 [facility] [place] of Occupat ional Health - Occupational Stress [...] slept in a detention (including now)? No 11/17/2021 Depression Answer Date [...] Sex Assigned at Male 05/13/2021 10:11 AM CANE FLUME WATCHMAN Gender Identity Male 11/02/2017 7:22 PM CDT [...] mouth as needed. 0 miscellaneous medical supply [facility] CPAP Supplies See Instructions, CPAP machine, mask 1 ea x 4 refills, headgear 1 ea x 2 refills, tubing 1 ea x 4 refills, filters 2 ea per month, tub 1 ea x 2 refills, mask seal 1 ea x 2 refills DX G47.33, length of need 99, 1 each, 0 Refill(s) 0 10/20/2016 miscellaneous medical supply [facility] [place] [place] Head Gear for CPAP Machine See Instructions, fax to patient at [phone], 1 each 0 01/17/2014 MULTIVITAMIN ORAL Daily [...] (Latest Contact Info) Description 05/28/2023 10:00 AM CANE FLUME WATCHMAN Appointment Department of Laboratory Medicine in [place] [address] [place] [phone] Mónica Portillo APRN, C.N.P., M.S. [address] [place] [phone] 05/28/2023 10:10 AM CANE FLUME WATCHMAN Appointment Department of Laboratory Medicine in [place] [address] [place] [phone] Mónica Portillo APRN, C.N.P., M.S. [address] [place] [phone] 05/29/2023 8:00 AM CANE FLUME WATCHMAN Office Visit Department of Community Internal Medicine in [place] [address] [place] [phone] Clover Delaney M.D. [address] [place] [phone] Discharge Disposition: Home or Self Care 05/29/2023 10:15 AM CANE FLUME WATCHMAN Appointment Department of Radiology, [facility] in [place], [place] [address] [place] [phone] Mónica Portillo APRN, C.N.P., M.S. [address] [place] [phone] 05/29/2023 1:00 PM CANE FLUME WATCHMAN Procedure visit Department of Urology in [place], [place] [address] [place] [phone] Mónica Portillo APRN, C.N.P., M.S. [address] [place] [phone] 05/29/2023 3:00 PM CANE FLUME WATCHMAN Education Division of Nephrology and Hypertension in [place], [place] [address] [place] [phone] Mónica Portillo APRN, Kassandra.N.P., M.S. [address] [place] [phone] Sandeep Galicia R.NoJsé Luis [address] [place] [phone] 05/29/2023 4:00 PM CANE FLUME WATCHMAN Comprehensive Visit Division of Nephrology and Hypertension in [place], [place] [address] [place] [phone] Sera Casiano M.D., Ph.D. [address] [place] [phone] 06/15/2023 2:00 PM CANE FLUME WATCHMAN Ancillary Procedure Department of Ophthalmology in [place], [place] [address] [place] [phone] Justin Bunch M.D. [address] [place] [phone] 06/15/2023 2:30 PM CANE FLUME WATCHMAN Ancillary Procedure Department of Ophthalmology in [place], [place] [address] [place] [phone] Justin Bunch M.D. [address] [place] [phone] 06/15/2023 2:45 PM CANE FLUME WATCHMAN Office Visit Department of Ophthalmology in [place], [place] [address] [place] [address] Justin Bunch M.D. [address] [place] [phone] documented as of this encounter Procedures Procedure [...] 10:10 AM CDT 07/25/2022 11:52 AM CDT Drew Cuoch APRNN.P., M.S. LAB URINE ORDERABLES [facility] [address] [place] [address], [facility] in [place] [address] [place] [address] * (ABNORMAL) Urinalysis with Microscopic: Urine, Midstream [...] 8.0 07/25/2022 12:05 PM CDT [facility] Specific [place] 1.010 1.001 - 1.035 07/25/2022 12:05 PM [...] Kassandra Couch APRN.N.P., M.S. LAB URINE ORDERABLES [facility] [address] [place] [address], [facility] in [place] [address] [place] [phone] documented in this encounter Visit Diagnoses Diagnosis Hypertension And Chronic Kidney Disease Stage 4 (HCC) Anemia Of Chronic Renal Disease documented in this encounter Additional Health Concerns Assessment Noted Time PHQ-9 Depression Total Score: 4 06/06/19 23 2:04 PM CANE FLUME WATCHMAN documented as of this encounter Care Teams Matting Press Tender Relationship Specialty Start Date End Date Clover Delaney M.D. [address] [place] [phone] PCP - General Internal Medicine 11/23/17 documented as of this encounter
--- OUTSIDE RECORDS SUMMARY | 2023-05-11 02:15 | XMS_ITS | Encounter Summary ---
Author Name Unknown Organization [facility] Address [address] [place] [address] Care Team Providers Care Drapery Sewer Hand Name Role Phone Clover Delaney M.D. Primary Care Provider [phone]- [phone] Encounter Details Date Type Department Care Team (Late st Contact Info) Description 06/07/2022 Orders Only Department of Community Internal Medicine in [place], [place] [address] [place] [address] [place] [phone] Clover Delaney M.D. [address] [place] [phone] Social History Tobacco Use Types [...] you attend chur ch or christianity services? 1 to 4 times per year 11/17/2021 Do you belong to any clubs o r organizations such as sabianist groups, unions, fraternal or athletic groups, or [...] Sex Assigned at Male 05/13/2021 10:11 AM DIAL POLISHER Gender Identity Male 11/02/2017 7:22 PM CDT Sexual Orientation Straight 11/02/2017 7: 22 PM CDT documented as of this encounter Plan of Treatment Upcoming Encounters Date Type Department Care Team (Latest Contact Info) Description 05/28/2023 10:00 AM DIAL POLISHER Appointment Department of Laboratory Medicine in [place], [place] [address] [place] [phone] Mónica Portillo APRN, C.N.P., M.S. [address] [place] [phone] 05/28/2023 10:10 AM DIAL POLISHER Appointment Department of Laboratory Medicine in [place], [place] [address] [place] [phone] Mónica Portillo APRN, C.N.P., M.S. [address] [place] [phone] 05/29/2023 8:00 AM DIAL POLISHER Office Visit Department of Community Internal Medicine in [place], [place] [address] [place] [phone] Clover Delaney M.D. [address] [place] [phone] Discharge Disposition: Home or Self Care 05/29/2023 10:15 AM DIAL POLISHER Appointment Department of Radiology, [facility], in [place], [place] [address] [place] [phone] Mónica Portillo APRN, C.N.P., M.S. [address] [place] [phone] 05/29/2023 1:00 PM DIAL POLISHER Procedure visit Department of Urology in [place], [place] [address] [place] [phone] Mónica Portillo APRN, C.N.P., M.S. [address] [place] [phone] 05/29/2023 3:00 PM DIAL POLISHER Education Division of Nephrology and Hypertension in [place], [place] [address] [place] [phone] Mónica Portillo APRN, DrewNJosé LuisP., M.S. [address] [place] [phone] Sandeep Galicia R.N. [address] [place] [phone] 05/29/2023 4:00 PM DIAL POLISHER Comprehensive Visit Division of Nephrology and Hypertension in [place], [place] [address] [place] [phone] Sera Casiano M.D., Ph.D. [address] [place] [phone] 06/15/2023 2:00 PM DIAL POLISHER Ancillary Procedure Department of Ophthalmology in [place], [place] [address] [place] [phone] Justin Bunch M.D. [address] [place] [phone] 06/15/2023 2:30 PM DIAL POLISHER Ancillary Procedure Department of Ophthalmology in [address] [phone] Justin Bunch M.D. [address] [place] [phone] 06/15/2023 2:45 PM DIAL POLISHER Office Visit Department of Ophthalmology in [address] [phone] Justin Bunch M.D. [address] [place] [phone] documented as of this encounter Visit Diagnoses Not on filedocumented in this encounter Additional Health Concerns Assessment Noted Time PHQ-9 Depression Total Score: 4 06/06/19 23 2:04 PM DIAL POLISHER documented as of this encounter Care Teams Drapery Sewer Hand Relationship Specialty Start Date End Date Clover Delaney M.D. [address] [place] [phone] PCP - General Internal Medicine 11/23/17 documented as of this encounter
--- OUTSIDE RECORDS SUMMARY | 2023-05-11 02:15 | XMS_ITS | Encounter Summary ---
Author Name Unknown Organization [facility] Address [address] [place] [address] Care Team Providers Care Training And Development Assistant Name Role Phone Clover Delaney M.D. Primary Care Provider Encounter Details Date Type Department Care Team (Late st Contact Info) Description 06/12/2022 Clinical Communication Department of Community Internal Medicine in [place], [place] [address] [place] [address] [place] [phone] Clover Delaney M.D. [address] [place] [address] Social History Tobacco Use Types [...] you attend chur ch or amish services? 1 to 4 times per year [...] Answer Date Recorded PHQ-2 Score 0 06/06/2022 [facility] of Occupat ional Health - Occupational Stress [...] slept in a retirement (including now)? No 11/17/2021 Depression Answer Date [...] Sex Assigned at Male 05/13/2021 10:11 AM FERRY BOAT CAPTAIN Gender Identity Male 11/02/2017 7:22 PM CDT Sexual Orientation Straight 11/02/2017 7: 22 PM CDT documented as of this encounter Miscellaneous Notes * Telephone Encounter - Clover Murillo M.S., [place], C.C.T.C. - 06/12/2022 8:35 AM CST ----- Message from Clover Delaney M.D. sent at 06/09/2022 8:48 AM FERRY BOAT CAPTAIN ----- Sorry if this is duplicate. Can you please check in with patient on BG today or tomorrow (I told him midweek)? Advised to increase glargine by 2 units every 3 days of consistently >120 fasting. Thank you. Y BOAT CAPTAIN documented in this encounter Plan of Treatment Upcoming Encounters Date Type Department Care Team (Latest Contact Info) Description 05/28/2023 10:00 AM FERRY BOAT CAPTAIN Appointment Department of Laboratory Medicine in [place] [address] [place] [phone] Mónica Portillo APRN, Kassandra.N.P., M.S. [address] [place] [phone] 05/28/2023 10:10 AM FERRY BOAT CAPTAIN Appointment Department of Laboratory Medicine in [place] [address] [place] [phone] Mónica Portillo APRN, C.N.P., M.S. [address] [place] [phone] 05/29/2023 8:00 AM FERRY BOAT CAPTAIN Office Visit Department of Community Internal Medicine in [place], [place] [address] [place] [phone] Clover Delaney M.D. [address] [place] [phone] Discharge Disposition: Home or Self Care 05/29/2023 10:15 AM FERRY BOAT CAPTAIN Appointment Department of Radiology, [facility], in [place], [place] [address] [place] [phone] Mónica Portillo APRN, C.N.P., M.S. [address] [place] [phone] 05/29/2023 1:00 PM FERRY BOAT CAPTAIN Procedure visit Department of Urology in [place], [place] [address] [place] [phone] Mónica Portillo APRN, C.N.P., M.S. [address] [place] [phone] 05/29/2023 3:00 PM FERRY BOAT CAPTAIN Education Division of Nephrology and Hypertension in [place], [place] [address] [place] [phone] Mónica Portillo APRN, Kassandra.N.P., M.S. [address] [place] [phone] Sandeep Galicia R.N. [address] [place] [phone] 05/29/2023 4:00 PM FERRY BOAT CAPTAIN Comprehensive Visit Division of Nephrology and Hypertension in [place], [place] [address] [place] [phone] Sera Casiano M.D., Ph.D. [address] [place] [phone] 06/15/2023 2:00 PM FERRY BOAT CAPTAIN Ancillary Procedure Department of Ophthalmology in [place], [place] [address] [place] [phone] Justin Bunch M.D. [address] [place] [phone] 06/15/2023 2:30 PM FERRY BOAT CAPTAIN Ancillary Procedure Department of Ophthalmology in [place], [place] [address] [place] [address] Justin Bunch M.D. [address] [place] [phone] 06/15/2023 2:45 PM FERRY BOAT CAPTAIN Office Visit Department of Ophthalmology in [place], [place] [address] [place] [phone] Justin Bunch M.D. [address] [place] [phone] documented as of this encounter Visit Diagnoses Not on filedocumented in this encounter Additional Health Concerns Assessment Noted Time PHQ-9 Depression Total Score: 4 06/06/19 23 2:04 PM FERRY BOAT CAPTAIN documented as of this encounter Care Teams Training And Development Assistant Relationship Specialty Start Date End Date Clover Delaney M.D. [address] [place] [phone] PCP - General Internal Medicine 11/23/17 documented as of this encounter
--- OUTSIDE RECORDS SUMMARY | 2023-05-11 02:15 | XMS_ITS | Encounter Summary ---
Author Name Unknown Organization [facility] Address [address] [place] [address] Care Team Providers Care Transactional Attorney Name Role Phone Clover Delaney M.D. Primary Care Provider +1- [phone] Reason for Visit * Reason Comments Med Refill Encounter Details Date Type Department Care Team (Late st Contact Info) Description 07/04/2022 Refill Department of Ophthalmology in [place], [place] [address] [place] [phone] Jon Juarez M.D. [address] [place] [address] Med Refill Social History Tobacco Use Types [...] you attend chur ch or mandaen services? 1 to 4 times per year [...] slept in a fci (including now)? No 11/17/2021 Depression Answer Date [...] Sex Assigned at Male 05/13/2021 10:11 AM HUMAN RESOURCES GENERALIST Gender Identity Male 11/02/2017 7:22 PM CDT Sexual Orientation Straight 11/02/2017 7: 22 PM CDT documented as of this encounter Plan of Treatment Upcoming Encounters Date Type Department Care Team (Latest Contact Info) Description 05/28/2023 10:00 AM HUMAN RESOURCES GENERALIST Appointment Department of Laboratory Medicine in [place], [place] [address] [place] [address] Mónica Portillo APRN, C.N.P., M.S. [address] [place] [phone] 05/28/2023 10:10 AM HUMAN RESOURCES GENERALIST Appointment Department of Laboratory Medicine in [place], [place] [address] [place] [address] Mónica Portillo APRN, C.N.P., M.S. [address] [place] [phone] 05/29/2023 8:00 AM HUMAN RESOURCES GENERALIST Office Visit Department of Community Internal Medicine in [place], [place] [address] [place] [address] Clover Delaney M.D. [address] [place] [phone] Discharge Disposition: Home or Self Care 05/29/2023 10:15 AM HUMAN RESOURCES GENERALIST Appointment Department of Radiology, [facility], in [place], [place] [address] [place] [phone] Mónica Portillo APRN, C.N.P., M.S. [address] [place] [phone] 05/29/2023 1:00 PM HUMAN RESOURCES GENERALIST Procedure visit Department of Urology in [place], [place] [address] [place] [address] Mónica Portillo APRN, C.N.P., M.S. [address] [place] [phone] 05/29/2023 3:00 PM HUMAN RESOURCES GENERALIST Education Division of Nephrology and Hypertension in [place], [place] [address] [place] [phone] Mónica Portillo APRN, DrewNJosé LuisP., M.S. [address] [place] [phone] Sandeep Galicia R.N. [address] [place] [phone] 05/29/2023 4:00 PM HUMAN RESOURCES GENERALIST Comprehensive Visit Division of Nephrology and Hypertension in [place], [place] [address] [place] [phone] Sera Casiano M.D., Ph.D. [address] [place] [phone] 06/15/2023 2:00 PM HUMAN RESOURCES GENERALIST Ancillary Procedure Department of Ophthalmology in [place], [place] [address] [place] [phone] Justin Bunch M.D. [address] [place] [phone] 06/15/2023 2:30 PM HUMAN RESOURCES GENERALIST Ancillary Procedure Department of Ophthalmology in [address] [phone] Justin Bunch M.D. [address] [place] [phone] 06/15/2023 2:45 PM HUMAN RESOURCES GENERALIST Office Visit Department of Ophthalmology in [address] [phone] Justin Bunch M.D. [address] [place] [phone] documented as of this encounter Visit Diagnoses Not on filedocumented in this encounter Additional Health Concerns Assessment Noted Time PHQ-9 Depression Total Score: 4 06/06/19 23 2:04 PM HUMAN RESOURCES GENERALIST documented as of this encounter Care Teams Transactional Attorney Relationship Specialty Start Date End Date Clover Delaney M.D. NPKatlin: [phone] [address] [place] [address] PCP - General Internal Medicine 11/23/17 documented as of this encounter
--- OUTSIDE RECORDS SUMMARY | 2023-05-11 02:16 | XMS_ITS ---
Author Name Unknown Organization [facility] Address [address] [place] [address] Care Team Providers Care Cullet Crusher And Washer Name Role Phone Clover Delaney M.D. Primary Care Provider +1- [phone] Kidney Risk Compliance Manager Program Status:Identified (Enrolling) Start date:04/01/2023 Continued Care and Services Coordination
--- OUTSIDE RECORDS SUMMARY | 2023-05-11 02:16 | XMS_ITS | Encounter Summary ---
Author Name Unknown Organization [facility] Address [address] [place] [address] Care Team Providers Care Pile Driving Technician Name Role Phone Clover Delaney M.D. Primary Care Provider +1- [phone] Encounter Details Date Type Department Care Team (Late st Contact Info) Description 04/28/2022 Orders Only Department of Community Internal Medicine in [place], [place] [address] [place] [address] [place] [phone] Clover Delaney M.D. [address] [place] [address] Hypertension And Chronic Kidney Disease [...] How often do you attend chur or spiritism services? 1 to 4 times per year [...] Answer Date Recorded PHQ-2 Score 0 06/07/2021 [facility] - Occupational Stress [...] Sex Assigned at Male 05/13/2021 10:11 AM RECREATION THERAPIST Gender Identity Male 11/02/2017 7:22 PM CDT Sexual Orientation Straight 11/02/2017 7: 22 PM CDT documented as of this encounter Plan of Treatment Upcoming Encounters Date Type Department Care Team (Latest Contact Info) Description 05/28/2023 10:00 AM RECREATION THERAPIST Appointment Department of Laboratory Medicine in [place] [address] [place] [address] Mónica Portillo APRN, C.N.P., M.S. [address] [place] [phone] 05/28/2023 10:10 AM RECREATION THERAPIST Appointment Department of Laboratory Medicine in [place] [address] [place] [address] Mónica Portillo APRN, C.N.P., M.S. [address] [place] [phone] 05/29/2023 8:00 AM RECREATION THERAPIST Office Visit Department of Community Internal Medicine in [place] [address] [place] [address] Clover Delaney M.D. [address] [place] [phone] Discharge Disposition: Home or Self Care 05/29/2023 10:15 AM RECREATION THERAPIST Appointment Department of Radiology, [facility], in [place], [place] [address] [place] [phone] Mónica Portillo APRN, C.N.P., M.S. [address] [place] [phone] 05/29/2023 1:00 PM RECREATION THERAPIST Procedure visit Department of Urology in [place], [place] [address] [place] [phone] Mónica Portillo APRN, C.N.P., M.S. [address] [place] [phone] 05/29/2023 3:00 PM RECREATION THERAPIST Education Division of Nephrology and Hypertension in [place], [place] [address] [place] [phone] Mónica Portillo APRN, C.N.P., M.S. [address] [place] [phone] Sandeep Galicia R.N. [address] [place] [phone] 05/29/2023 4:00 PM RECREATION THERAPIST Comprehensive Visit Division of Nephrology and Hypertension in [place], [place] [address] [place] [phone] Sera Casiano M.D., Ph.D. [address] [place] [phone] 06/15/2023 2:00 PM RECREATION THERAPIST Ancillary Procedure Department of Ophthalmology in [place], [place] [address] [place] [phone] Justin Bunch M.D. [address] [place] [phone] 06/15/2023 2:30 PM RECREATION THERAPIST Ancillary Procedure Department of Ophthalmology in [place], [place] [address] [place] [phone] Justin Bunch M.D. [address] [place] [phone] 06/15/2023 2:45 PM RECREATION THERAPIST Office Visit Department of Ophthalmology in [address] [phone] Justin Bunch M.D. [address] [place] [phone] documented as of this encounter Visit Diagnoses Diagnosis Hypertension And Chronic Kidney Disease Stage 4 (HCC)- Primary documented in this encounter Additional Health Concerns Assessment Noted Time PHQ-9 Depression Total Score: 7 05/17/19 21 11:27 AM RECREATION THERAPIST documented as of this encounter Care Teams Pile Driving Technician Relationship Specialty Start Date End Date Clover Delaney M.D. [address] [place] [phone] PCP - General Internal Medicine 11/23/17 documented as of this encounter
--- OUTSIDE RECORDS SUMMARY | 2023-05-11 02:16 | XMS_ITS | Encounter Summary ---
Author Name Unknown Organization [facility] Address [address] [place] [address] Care Team Providers Care Drum Worker Name Role Phone Clover Delaney M.D. Primary Care Provider +1- [phone] Reason for Visit * Reason Comments Med Refill Encounter Details Date Type Department Care Team (Late st Contact Info) Description 05/23/2022 Refill Department of Ophthalmology in [place], [place] [address] [place] [phone] Jon Juarez M.D. [address] [place] [phone] Med Refill Social History Tobacco Use Types [...] you attend chur ch or uatsdin services? 1 to 4 times [...] Answer Date Recorded PHQ-2 Score 0 06/07/2021 [facility] - [...] slept in a half-way (including now)? No 11/17/2021 Depression Answer Date [...] Sex Assigned at Male 05/13/2021 10:11 AM AIR BRAKE TESTER Gender Identity Male 11/02/2017 7:22 PM [...] in June 2022. Thanks! Jon Juarez MD BRAKE TESTER documented in this encounter Plan of Treatment Upcoming Encounters Date Type Department Care Team (Latest Contact Info) Description 05/28/2023 10:00 AM AIR BRAKE TESTER Appointment Department of Laboratory Medicine in [place] [address] [place] [address] Mónica Portillo APRN, C.N.P., M.S. [address] [place] [phone] 05/28/2023 10:10 AM AIR BRAKE TESTER Appointment Department of Laboratory Medicine in [place] [address] [place] [phone] Mónica Portillo APRN, C.N.P., M.S. [address] [place] [phone] 05/29/2023 8:00 AM AIR BRAKE TESTER Office Visit Department of Community Internal Medicine in [place] [address] [place] [address] Clover Delaney M.D. [address] [place] [phone] Discharge Disposition: Home or Self Care 05/29/2023 10:15 AM AIR BRAKE TESTER Appointment Department of Radiology, [facility], in [place], [place] [address] [place] [phone] Mónica Portillo APRN, C.N.P., M.S. [address] [place] [phone] 05/29/2023 1:00 PM AIR BRAKE TESTER Procedure visit Department of Urology in [place], [place] [address] [place] [address] Mónica Portillo APRN, C.N.P., M.S. [address] [place] [phone] 05/29/2023 3:00 PM AIR BRAKE TESTER Education Division of Nephrology and Hypertension in [place], [place] [address] [place] [phone] Mónica Portillo APRN, Kassandra.N.P., M.S. [address] [place] [phone] Sandeep Galicia R.N. [address] [place] [phone] 05/29/2023 4:00 PM AIR BRAKE TESTER Comprehensive Visit Division of Nephrology and Hypertension in [place], [place] [address] [place] [phone] Sera Casiano M.D., Ph.D. [address] [place] [phone] 06/15/2023 2:00 PM AIR BRAKE TESTER Ancillary Procedure Department of Ophthalmology in [place], [place] [address] [place] [phone] Justin Bunch M.D. [address] [place] [phone] 06/15/2023 2:30 PM AIR BRAKE TESTER Ancillary Procedure Department of Ophthalmology in [place], [place] [address] [place] [address] Justin Bunch M.D. [address] [place] [address] 06/15/2023 2:45 PM AIR BRAKE TESTER Office Visit Department of Ophthalmology in [place], [place] [address] [place] [address] Justin Bunch M.D. [address] [place] [phone] documented as of this encounter Visit Diagnoses Not on filedocumented in this encounter Additional Health Concerns Assessment Noted Time PHQ-9 Depression Total Score: 7 05/17/19 21 11:27 AM AIR BRAKE TESTER documented as of this encounter Care Teams Drum Worker Relationship Specialty Start Date End Date Clover Delaney M.D. [address] [place] [phone] PCP - General Internal Medicine 11/23/17 documented as of this encounter
== END 2023-05-06 12:45 | disposition home or self-care (01) ==
LOC: AMB 05-11 02:05
PROVIDERS: PCP Pediatrics; Visit Provider Family Medicine
DX: R53.1 Weakness (principal)
CPT/HCPCS: A0998

== ENCOUNTER 2023-08-16 13:05 | Emergency (ER) | payer MEDICARE, SELFPAY ==
[2023-08-16] VITALS (19 sets, daily range): BP systolic 148–203; BP diastolic 67–84; PULSE 45–61; RESP 18; TEMP 35.7; O2SAT 93–99; BMI 45.8
--- NOTE | 2023-08-16 13:47 | ED.WEAKNESS ---
HPI - Weakness General Date Seen: 08/16/23 <Martell Ang MD - Last Filed: 08/18/23 02:47> Chief complaint: Weakness <Martell Ang MD - Last Filed: 08/18/23 02:47> Stated complaint: Low pulse <Martell Ang MD - Last Filed: 08/18/23 02:47> Time Seen by Provider: 08/16/23 13:07 <Martell Ang MD - Last Filed: 08/18/23 02:47> Source: patient and family <Martell Ang MD - Last Filed: 08/18/23 02:47> Mode of arrival: ambulatory <Martell Ang MD - Last Filed: 08/18/23 02:47> Limitations: no limitations <Martell Ang MD - Last Filed: 08/18/23 02:47> History of Present Illness HPI Narrative: Started a new blood pressure medication, says they doubled the dose. Woke up with low pulse 45-47. Says he feels like he has rubber legs , has felt weaker than normal today. Reports he feels fine otherwise. Does have kidney failure and says he is anemic. -Date of Onset of Symptoms 07/27 Patient is a very nice gentleman who presents here with the above history. Ambulatory, cyanosis symptoms worse in the morning in any feels fine in the afternoon. He describes just weak legs when he is walking around, he does not describe any chest pain shortness of breath or feeling his heart rate is rapid or irregular. He does notice that it seems to be slower than normal. Normally was in the 50s and now is in the upper 40s, 50s he is also being diuresed, which she says is been working well as he has lost over 20 lb. His blood pressure is always been an issue in the recent addition of the clonidine, along with the increased dose of the torsemide is also Denies any fevers chills or sweats chest pain shortness of breath his legs are much less swollen than normal. 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 <Martell Ang MD - Last Filed: 08/18/23 02:47> MD Complaint: generalized weakness <Martell Ang MD - Last Filed: 08/18/23 02:47> Related Data Home medications: Home Medications Medication Instructions Recorded Confirmed aspirin 81 mg tablet,delayed 81 mg PO QDAY 04/14/22 08/16/23 release blood sugar diagnostic (OneTouch #10 ea 04/14/22 08/05/23 Ultra Test strips) carvedilol 12.5 mg tablet 12.5 mg PO DAILY 04/14/22 08/16/23 cholecalciferol (vitamin D3) 50 50 mcg PO QDAY 04/14/22 08/05/23 mcg (2,000 unit) capsule insulin glargine 100 unit/mL (3 16 unit subcut QHS 04/14/22 08/16/23 mL) subcutaneous pen (Lantus Solostar U-100 Insulin) mecobalamin (vitamin B12) 1,000 1,000 mcg PO QDAY 04/14/22 08/16/23 mcg chewable tablet multivitamin 1 tab PO QAM 04/14/22 08/16/23 pen needle, diabetic 31 gauge x #50 ea 04/14/22 08/05/23 1/4 (UltiCare Pen Needle) pen needle, diabetic 32 gauge x #50 ea 04/14/22 08/05/23 5/32 (BD Ultra-Fine Josefina Pen Needle) prednisolone acetate 1 % eye 2 drp ophthalmic (eye) DAILY 04/14/22 08/05/23 drops,suspension prednisone 5 mg tablet 5 mg PO QDAY 04/14/22 08/16/23 torsemide 10 mg tablet 30 mg PO QDAY 04/14/22 08/16/23 vit C 250 mg-vit E 200 unit-zinc 1 tab PO DAILY 04/14/22 08/16/23 12.5 mg-copper 1 as-arr-gyykzn tablet (ICaps AREDS2 (copper citrate)) irbesartan 75 mg tablet (Avapro) 75 mg PO DAILY 09/10/22 08/16/23 doxazosin 2 mg tablet 2 mg PO QDAY 04/13/23 08/05/23 sevelamer HCl 800 mg tablet 800 mg PO TID 04/13/23 08/16/23 sodium bicarbonate 650 mg tablet 650 mg PO BID 04/13/23 08/16/23 clonidine HCl 0.1 mg tablet 0.05 mg PO BID 08/05/23 08/16/23 tirzepatide 5 mg/0.5 mL 5 mg subcut QWEEK 08/05/23 08/16/23 subcutaneous pen injector (Cali) atorvastatin 40 mg tablet 40 mg PO DAILY 08/16/23 08/16/23 clonidine HCl 0.2 mg tablet 0.2 mg PO BID 08/16/23 08/16/23 doxazosin 4 mg tablet 4 mg PO DAILY 08/16/23 08/16/23 fluoxetine 10 mg capsule 10 mg PO DAILY 08/16/23 08/16/23 Previous Rx's Medication Instructions Recorded apixaban 2.5 mg tablet (Eliquis) 2.5 mg PO BID #60 tabs 08/16/23 <Martell Ang MD - Last Filed: 08/18/23 02:47> Allergies/Adverse reactions: Allergies Allergy/AdvReac Type Severity Reaction Status Date / Time epinephrine Allergy Intermediate Hypertensio Verified 08/16/23 13:14 n Penicillins Allergy Verified 08/16/23 13:14 <Martell Ang MD - Last Filed: 08/18/23 02:47> Review of Systems Status of ROS: Reports: 10 or more systems reviewed and unremarkable except as noted in History and below <Martell Ang MD - Last Filed: 08/18/23 02:47> [facility] Social History: Social History Smoking Status: Former smoker Do you use any of these nicotine containing products: None How often do you have a drink containing alcohol: monthly or less How often do you have six or more drinks on one occasion: Never AUDIT-C Alcohol total score: 1 Non-prescribed substance use: denies use service: No <Martell Ang MD - Last Filed: 08/18/23 02:47> Exam Narrative: Exam Narrative: On examination he appears to be in no distress in room 5, he appears to be pale. Pupils are equal round reactive to light there is no scleral icterus redness TM TMs are normal, I am unable to sees JVP due to the size of his neck, his lungs however are very clear with no wheezing crackles noted his heart sounds no clicks murmurs or gallops his abdomen is soft, obese, with no tenderness to palpation bowel sounds are normal, he has 2+ pitting edema in his lower extremities he moves all extremities independently well, there are no rashes. <Martell Ang MD - Last Filed: 08/18/23 02:47> Const: Vital Signs, click to edit/add: Vital Signs - 24 hr 08/16/23 13:08 08/16/23 14:16 08/16/23 14:18 Temperature 96.2 F L Pulse Rate 54 L 49 L Pulse Rate [Right Pulse Oximeter] 49 L Respiratory Rate 18 Blood Pressure 168/75 H Blood Pressure [Ri ght Upper Arm] 203/67 H Pulse Oximetry 99 96 96 Oxygen Delivery Me thod Room Air 08/16/23 14:30 08/16/23 14:32 08/16/23 14:45 Temperature Pulse Rate 48 L 51 L 50 L Pulse Rate [Right Pulse Oximeter] Respiratory Rate Blood Pressure 171/84 H Blood Pressure [Ri ght Upper Arm] Pulse Oximetry 95 96 97 Oxygen Delivery Me thod 08/16/23 15:00 08/16/23 15:01 08/16/23 15:02 Temperature Pulse Rate 54 L 45 L 46 L Pulse Rate [Right Pulse Oximeter] Respiratory Rate Blood Pressure 178/81 H Blood Pressure [Ri ght Upper Arm] Pulse Oximetry 96 96 95 Oxygen Delivery Me thod 08/16/23 15:15 08/16/23 15:30 08/16/23 15:33 Temperature Pulse Rate 51 L 50 L 50 L Pulse Rate [Right Pulse Oximeter] Respiratory Rate Blood Pressure 178/76 H Blood Pressure [Ri ght Upper Arm] Pulse Oximetry 96 97 93 Oxygen Delivery Me thod <Martell Ang MD - Last Filed: 08/18/23 02:47> Vital Signs, click to edit/add: Vital Signs - 24 hr 08/16/23 13:08 08/16/23 14:16 08/16/23 14:18 Temperature 96.2 F L Pulse Rate 54 L 49 L Pulse Rate [Right Pulse Oximeter] 49 L Respiratory Rate 18 Blood Pressure 168/75 H Blood Pressure [Ri ght Upper Arm] 203/67 H Pulse Oximetry 99 96 96 Oxygen Delivery Me thod Room Air 08/16/23 14:30 08/16/23 14:32 08/16/23 14:45 Temperature Pulse Rate 48 L 51 L 50 L Pulse Rate [Right Pulse Oximeter] Respiratory Rate Blood Pressure 171/84 H Blood Pressure [Ri ght Upper Arm] Pulse Oximetry 95 96 97 Oxygen Delivery Me thod 08/16/23 15:00 08/16/23 15:01 08/16/23 15:02 Temperature Pulse Rate 54 L 45 L 46 L Pulse Rate [Right Pulse Oximeter] Respiratory Rate Blood Pressure 178/81 H Blood Pressure [Ri ght Upper Arm] Pulse Oximetry 96 96 95 Oxygen Delivery Me thod 08/16/23 15:15 08/16/23 15:30 08/16/23 15:33 Temperature Pulse Rate 51 L 50 L 50 L Pulse Rate [Right Pulse Oximeter] Respiratory Rate Blood Pressure 178/76 H Blood Pressure [Ri ght Upper Arm] Pulse Oximetry 96 97 93 Oxygen Delivery Me thod <Abbe Poole MD - Last Filed: 08/16/23 16:40> Documenting provider has reviewed patient's vital signs: yes <Martell Ang MD - Last Filed: 08/18/23 02:47> Course Course ED Course: I spoke to the patient and . I signed out to . Anticipate discharge home on Eliquis and follow up with [facility] for JEANNA +/_ cardioversion. This can be through the Nephrolgist He sees a [facility]. <Martell Ang MD - Last Filed: 08/18/23 02:47> Vital Signs Vital signs: Initial Vital Signs Temperature 96.2 F L 08/16/23 13:08 Temperature Source Temporal Artery Scan 08/16/23 13:08 Pulse Rate 49 L 08/16/23 13:08 Pulse Rhythm Regular 08/16/23 13:08 Respiratory Rate 18 08/16/23 13:08 Blood Pressure 203/67 H 08/16/23 13:08 Blood Pressure Mean 112 H 08/16/23 13:08 Blood Pressure Position Sitting 08/16/23 13:08 Pulse Oximetry 99 08/16/23 13:08 Oxygen Delivery Method Room Air 08/16/23 13:08 Vital Signs Temperature 96.2 F L 08/16/23 13:08 Pulse Rate 49 L 08/16/23 13:08 Respiratory Rate 18 08/16/23 13:08 Blood Pressure 203/67 H 08/16/23 13:08 Pulse Oximetry 99 08/16/23 13:08 Oxygen Delivery Method Room Air 08/16/23 13:08 Temperature 96.2 F L 08/16/23 13:08 Pulse Rate 47 L 08/16/23 16:33 Respiratory Rate 18 08/16/23 13:08 Blood Pressure 148/77 H 08/16/23 16:33 Pulse Oximetry 97 08/16/23 16:33 Oxygen Delivery Method Room Air 08/16/23 13:08 <Martell Ang MD - Last Filed: 08/18/23 02:47> Initial Vital Signs Temperature 96.2 F L 08/16/23 13:08 Temperature Source Temporal Artery Scan 08/16/23 13:08 Pulse Rate 49 L 08/16/23 13:08 Pulse Rhythm Regular 08/16/23 13:08 Respiratory Rate 18 08/16/23 13:08 Blood Pressure 203/67 H 08/16/23 13:08 Blood Pressure Mean 112 H 08/16/23 13:08 Blood Pressure Position Sitting 08/16/23 13:08 Pulse Oximetry 99 08/16/23 13:08 Oxygen Delivery Method Room Air 08/16/23 13:08 Vital Signs Temperature 96.2 F L 08/16/23 13:08 Pulse Rate 49 L 08/16/23 13:08 Respiratory Rate 18 08/16/23 13:08 Blood Pressure 203/67 H 08/16/23 13:08 Pulse Oximetry 99 08/16/23 13:08 Oxygen Delivery Method Room Air 08/16/23 13:08 Temperature 96.2 F L 08/16/23 13:08 Pulse Rate 47 L 08/16/23 16:33 Respiratory Rate 18 08/16/23 13:08 Blood Pressure 148/77 H 08/16/23 16:33 Pulse Oximetry 97 08/16/23 16:33 Oxygen Delivery Method Room Air 08/16/23 13:08 <Abbe Poole MD - Last Filed: 08/16/23 16:40> Medications Administered Medications: Discontinued Medications Generic Name Dose Route Start Last Admin Trade Name Freq PRN Reason Stop Dose Admin Apixaban 2.5 mg 08/16/23 16:37 08/16/23 16:52 Apixaban 5 Mg Tablet PO 08/16/23 16:38 2.5 mg ONCE ONE Administration <Martell Ang MD - Last Filed: 08/18/23 02:47> Discontinued Medications Generic Name Dose Route Start Last Admin Trade Name Iza PRN Reason Stop Dose Admin Apixaban 2.5 mg 08/16/23 16:37 08/16/23 16:52 Apixaban 5 Mg Tablet PO 08/16/23 16:38 2.5 mg ONCE ONE Administration <Abbe Poole MD - Last Filed: 08/16/23 16:40> MDM - Weakness MDM Narrative Medical decision making narrative: Life-threatening differential diagnosis considered include stroke, coronary artery disease, pneumonia, and heart failure. Other differential diagnosis include but are not limited to electrolyte imbalances, anemia, medication reactions, and urinary tract infection Patient is in new onset AFib when I compared to other EKGs, his chads 2 score is elevated, with a number of 4, this would mandate that he go on anticoagulation on but also for the reason that he will need to likely have the cardioversion in the future, plus or minus jeanna. I think Eliquis is a better option for him than Xarelto, depending on what her laboratory work look like, I think a reasonable approach here would be to start him on anticoagulation, have him call his marriage and family teacher from [facility], get him in to see Cardiology therefore a formal consultation. I discussed with the patient and his . <Martell Ang MD - Last Filed: 08/18/23 02:47> Life-threatening differential diagnosis considered include stroke, coronary artery disease, pneumonia, and heart failure. Other differential diagnosis include but are not limited to electrolyte imbalances, anemia, medication reactions, and urinary tract infection Patient is in new onset AFib when I compared to other EKGs, his chads 2 score is elevated, with a number of 4, this would mandate that he go on anticoagulation on but also for the reason that he will need to likely have the cardioversion in the future, plus or minus jeanna. I think Eliquis is a better option for him than Xarelto, depending on what her laboratory work look like, I think a reasonable approach here would be to start him on anticoagulation, have him call his marriage and family teacher from [facility], get him in to see Cardiology therefore a formal consultation. I discussed with the patient and his . Lab results returned for this patient and was noted that his troponin returned at 0.14. This was repeated a couple hours later and was unchanged. Additionally his creatinine is at 4.8. This likely explains the increase in the troponin in his labs. The patient is denying having any chest pain. He needs to be placed on Eliquis but because of the renal function the dosage needs to be at 2.5 mg twice daily. This prescription is provided for him. He did receive his 1st dose here in the emergency department. Dr. Carlin Poole <Abbe Poole MD - Last Filed: 08/16/23 16:40> Differential Diagnosis Differential diagnosis: Likely acute myocardial infarction, anemia, hypoglycemia, hypothyroidism, rhabdomyolysis, sepsis and dehydration <Martell Ang MD - Last Filed: 08/18/23 02:47> Medical Records Attestation: I reviewed the patient's medical records. <Martell Ang MD - Last Filed: 08/18/23 02:47> Lab Data Attestation: I reviewed the patient's lab results. <Martell Ang MD - Last Filed: 08/18/23 02:47> Labs: Lab Results 08/16/23 08/16/23 Range/Units 14:15 15:18 WBC 11.56 H (4.50-11.00) K/uL RBC 2.88 L (4.30-5.90) m/uL Hgb 8.9 L (13.5-17.5) gm/dL Hct 27.0 L (37.0-53.0) % MCV 94 (80-100) fL MCH 31 (26-34) pg MCHC 33 (32-36) gm/dL RDW Coeff of Rita 14.8 (11.5-15.5) % Plt Count 156 (140-440) K/uL Neut % (Auto) 85.6 H (42.0-72.0) % Lymph % (Auto) 6.4 L (20-44) % Dixie % (Auto) 5.4 (0.0-11.0) % Eos % (Auto) 1.0 (0.0-7.0) % Baso % (Auto) 0.3 (0.0-3.0) % Neut # (Auto) 9.90 H (1.7-7.0) K/uL Lymph # (Auto) 0.70 L (0.90-2.90) K/uL Dixie # (Auto) 0.60 (0.00-0.90) K/UL Eos # (Auto) 0.10 (0.00-0.50) K/uL Baso # (Auto) 0.00 (0.00-0.30) K/uL Abs Immat Gran (auto) 0.20 (0.00-0.30) K/uL Imm/Tot Granulo (auto) 1.3 % INR 0.97 (0.91-1.10) APTT 27 (23-33) Seconds Sodium 133 L (135-149) mmol/L Potassium 4.1 (3.6-5.1) mmol/L Chloride 100 (96-114) mmol/L Carbon Dioxide 27 (20-32) mmol/L Anion Gap 6 L (7-15) mEq/L BUN 81 H (7-30) mg/dL Creatinine 4.8 H (0.5-1.5) mg/dL Estimated Creat Clear 13.31 Estimated GFR 12 ml/min Glucose 375 H* (60-115) mg/dL Calcium 8.7 (8.4-10.6) mg/dL Troponin I 0.14 H* (0.01-0.04) ng/mL NT-Pro-B Natriuret Pep 96836 pg/mL Lab Acknowledgement Test Added POC Troponin I 0.14 H (0.01-0.04) ng/ml Blood Type B Negative Antibody Screen NEGATIVE <Martell Ang MD - Last Filed: 08/18/23 02:47> Lab Results 08/16/23 08/16/23 Range/Units 14:15 15:18 WBC 11.56 H (4.50-11.00) K/uL RBC 2.88 L (4.30-5.90) m/uL Hgb 8.9 L (13.5-17.5) gm/dL Hct 27.0 L (37.0-53.0) % MCV 94 (80-100) fL MCH 31 (26-34) pg MCHC 33 (32-36) gm/dL RDW Coeff of Rita 14.8 (11.5-15.5) % Plt Count 156 (140-440) K/uL Neut % (Auto) 85.6 H (42.0-72.0) % Lymph % (Auto) 6.4 L (20-44) % Dixie % (Auto) 5.4 (0.0-11.0) % Eos % (Auto) 1.0 (0.0-7.0) % Baso % (Auto) 0.3 (0.0-3.0) % Neut # (Auto) 9.90 H (1.7-7.0) K/uL Lymph # (Auto) 0.70 L (0.90-2.90) K/uL Dixie # (Auto) 0.60 (0.00-0.90) K/UL Eos # (Auto) 0.10 (0.00-0.50) K/uL Baso # (Auto) 0.00 (0.00-0.30) K/uL Abs Immat Gran (auto) 0.20 (0.00-0.30) K/uL Imm/Tot Granulo (auto) 1.3 % INR 0.97 (0.91-1.10) APTT 27 (23-33) Seconds Sodium 133 L (135-149) mmol/L Potassium 4.1 (3.6-5.1) mmol/L Chloride 100 (96-114) mmol/L Carbon Dioxide 27 (20-32) mmol/L Anion Gap 6 L (7-15) mEq/L BUN 81 H (7-30) mg/dL Creatinine 4.8 H (0.5-1.5) mg/dL Estimated Creat Clear 13.31 Estimated GFR 12 ml/min Glucose 375 H* (60-115) mg/dL Calcium 8.7 (8.4-10.6) mg/dL Troponin I 0.14 H* (0.01-0.04) ng/mL NT-Pro-B Natriuret Pep 08522 pg/mL Lab Acknowledgement Test Added POC Troponin I 0.14 H (0.01-0.04) ng/ml Blood Type B Negative Antibody Screen NEGATIVE <Abbe Poole MD - Last Filed: 08/16/23 16:40> ECG Data Attestation: I personally reviewed and interpreted this ECG as follows: <Martell Ang MD - Last Filed: 08/18/23 02:47> ECG interpretation date: 08/16/23 <Martell Ang MD - Last Filed: 08/18/23 02:47> Prior ECG tracings: available for review <Martell Ang MD - Last Filed: 08/18/23 02:47> Interpretation: Atrial fibrillation with a controlled rate of 47, this is new in comparison to EKG from April 2023. When he was in sinus rhythm. <Martell Ang MD - Last Filed: 08/18/23 02:47> Discharge Plan Discharge Clinical Impression: Atrial fibrillation, Renal failure, chronic, Anemia, Bradycardia, Chronic hypertension <Martell Ang MD - Last Filed: 08/18/23 02:47> Patient Disposition: Home, Self-Care <Martell Ang MD - Last Filed: 08/18/23 02:47> Condition: Stable <Martell Ang MD - Last Filed: 08/18/23 02:47> Instructions: A-fib (Atrial Fibrillation) (ED), Chronic Kidney Disease (ED), Chronic Hypertension (DC), Bradycardia (ED), Anemia (ED), Blood Thinners (ED), Cardioversion (DC), Sick Sinus Syndrome (ED), Watchman Implant (DC) <Martell Ang MD - Last Filed: 08/18/23 02:47> Activity Level: Light activity <Martell Ang MD - Last Filed: 08/18/23 02:47> Light activity <Abbe Poole MD - Last Filed: 08/16/23 16:40> Prescriptions: New Eliquis 2.5 mg tablet 2.5 mg PO BID Qty: 60 2RF No Action (DME) pen needle, diabetic [BD Ultra-Fine Josefina Pen Needle] 32 gauge x 5/32 needle See Rx Instructions .ROUTE .MEDSUPPLY Qty: 50 Patient Comments: USE TO INJECT ONCE DAILY Rx Instructions: As directed torsemide 10 mg tablet 30 mg PO QDAY Patient Comments: TAKE ONE TABLET BY MOUTH ONE TIME DAILY prednisolone acetate 1 % drops,suspension 2 drp ophthalmic (eye) DAILY Patient Comments: Follow prednisolone taper in left eye per Dr. Paez's handout insulin glargine [Lantus Solostar U-100 Insulin] 100 unit/mL (3 mL) insulin pen 16 unit subcut QHS prednisone 5 mg tablet 5 mg PO QDAY Patient Comments: TAKE ONE TABLET BY MOUTH ONE TIME DAILY carvedilol 12.5 mg tablet 12.5 mg PO DAILY Patient Comments: TAKE ONE TABLET BY MOUTH TWICE A DAY WITH MEALS (DME) OneTouch Ultra Test Strip See Rx Instructions .ROUTE .MEDSUPPLY Qty: 10 Patient Comments: Use to test once daily. Rx Instructions: As directed (DME) pen needle, diabetic [UltiCare Pen Needle] 31 gauge x 1/4 needle See Rx Instructions .ROUTE .MEDSUPPLY Qty: 50 Rx Instructions: As directed aspirin 81 mg tablet,delayed release (DR/EC) 81 mg PO QDAY cholecalciferol (vitamin D3) 50 mcg (2,000 unit) capsule 50 mcg PO QDAY mecobalamin (vitamin B12) 1,000 mcg tablet,chewable 1,000 mcg PO QDAY multivitamin Tablet 1 tab PO QAM ICaps AREDS2 (copper citrate) 250 mg-200 unit -12.5 mg-1 mg tablet 1 tab PO DAILY doxazosin 2 mg tablet 2 mg PO QDAY sodium bicarbonate 650 mg tablet 650 mg PO BID sevelamer HCl 800 mg tablet 800 mg PO TID Rx Instructions: must administer with a meal/food clonidine HCl 0.1 mg tablet 0.05 mg PO BID Mounjaro 5 mg/0.5 mL pen injector 5 mg subcut QWEEK irbesartan [Avapro] 75 mg tablet 75 mg PO DAILY atorvastatin 40 mg tablet 40 mg PO DAILY clonidine HCl 0.2 mg tablet 0.2 mg PO BID fluoxetine 10 mg capsule 10 mg PO DAILY doxazosin 4 mg tablet 4 mg PO DAILY <Martell Ang MD - Last Filed: 08/18/23 02:47> Follow Up/Referrals: Provider,Not a Local [Referring] - <Martell Ang MD - Last Filed: 08/18/23 02:47> Stand Alone Forms: MyHealth Info Instructions <Martell Ang MD - Last Filed: 08/18/23 02:47>
--- OUTSIDE RECORDS SUMMARY | 2023-08-16 13:55 | XMS_ITS | Clinical Summary ---
Author Name Unknown Organization [facility] Address [address] [place] [address] Care Team Providers Care Copier Field Service Technician Name Role Phone Clover Delaney M.D. Primary Care Provider [phone] Source Comments Patient records contain information from all sites at [facility]. For routine questions regarding patient records, call [phone] during business hours, M-F 8:00 AM - 5:00 PM Central Time. Record requests for emergency care only can be directed to [phone] at any time.[facility] Allergies Active Allergy Reactions Criticality Noted Date Comments Amlodipine Edema High 07/10/2023 Epinephrine Palpitations High 11/11/2012 Tachycardia Penicillins Itching,Rash Medium 11/11/2012 Medications Medication Sig Dispensed Refills Start Date End Date Status miscellaneous medical supply [facility] CP[place] Supplies See Instructions, CPAP machine, mask 1 ea x 4 refills, headgear 1 ea x 2 refills, tubing 1 ea x 4 refills, filters 2 ea per month, tub 1 ea x 2 refills, mask seal 1 ea x 2 refills DX G47.33, length of need 99, 1 each, 0 Refill(s) 10/20/2016 Active miscellaneous medical supply [facility] Head Gear for CPAP Machine See Instructions, fax to patient at [phone], 1 each 01/17/2014 Active MULTIVITAMIN ORAL Daily Multiple Vitamins See Instructions, Take 1 tablet by mouth daily. 07/23/2013 Active ONETOUCH DELICA LANCETS 33 gauge misc 3 08/02/2018 Active loperamide (IMODIUM A-D) 2 mg tablet Take 2 mg by mouth as needed. Active aspirin 81 mg chewable tablet Chew 1 tablet (81 mg total) daily. 90 tablet 3 01/06/2020 Active cyanocobalamin (VITAMIN B12) 1,000 mcg tablet Take 1,000 mcg by mouth daily. 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 Active iron,carbonyl-vitam in C (VITRON-C) 65 mg iron- [address] tablet Take 65 mg of iron by mouth daily. Do not crush or chew. Active carvediloL (COREG) 12.5 mg tablet TAKE ONE TABLET BY MOUTH TWICE A DAY WITH MEALS 180 tablet 3 09/03/2022 Active predniSONE (DELTASONE) 5 mg tablet TAKE ONE TABLET BY MOUTH ONE TIME DAILY 90 tablet 3 10/23/2022 Active prednisoLONE acetate (PRED FORTE) 1 % ophthalmic suspension Instill 1 drop in left eye once daily 5 mL 11/06/2022 Active prednisoLONE acetate (PRED FORTE) 1 % ophthalmic suspension place 1 drop into the left eye once daily. 5 mL 11/06/2022 Active prednisoLONE acetate (PRED FORTE) 1 % ophthalmic suspension place 1 drop into the left eye once daily. 5 mL 02/05/2023 Active sodium bicarbonate 650 mg tablet Take 1 tablet (650 mg total) by mouth 2 (two) times a day. 180 tablet 3 04/07/2023 Active sevelamer carbonate (RENVELA) 800 mg tablet Take 1 tablet (800 mg total) by mouth 3 (three) times a day with meals. 270 tablet 3 04/07/2023 Active BD Ultra-Fine Josefina Pen Needle 32 gauge x needle USE TO INJECT ONCE DAILY 100 each 3 05/08/2023 Active OneTouch Ultra Test StripsIndications:D iabetes Mellitus Type 2 (HCC) Use to test once daily. 100 strip 3 06/03/2023 Active FLUoxetine (PROzac) 10 mg capsule Take 1 capsule (10 mg total) by mouth daily. 90 capsule 1 06/05/2023 Active doxazosin (CARDURA) 4 mg tablet Take 1 tablet (4 mg total) by mouth daily. 90 tablet 3 06/26/2023 5 Active tirzepatide (Mounjaro) 5 mg/0.5 mL pen injector injectionIndication s:Morbid Obesity (HCC) Inject 0.5 mL (5 mg total) under the skin every 7 (seven) days for 4 doses. 2 mL 07/21/2023 Active tirzepatide (Mounjaro) 7.5 mg/0.5 mL pen injector injectionIndication s:Morbid Obesity (HCC) Inject 0.5 mL (7.5 mg total) under the skin every 7 (seven) days for 4 doses. 2 mL 08/12/2023 4 Active tirzepatide (Mounjaro) 2.5 mg/0.5 mL pen injector injectionIndication s:Morbid Obesity (HCC) Inject 0.5 mL (2.5 mg total) under the skin every 7 (seven) days for 4 doses. From week 1 to week 4. 2 mL 06/29/2023 Active tirzepatide (Mounjaro) 10 mg/0.5 mL pen injector injectionIndication s:Morbid Obesity (HCC) Inject 0.5 mL (10 mg total) under the skin every 7 (seven) days. 6 mL 3 09/03/2023 5 Active atorvastatin (LIPITOR) 40 mg tabletIndications:M orbid Obesity (HCC) Take 1 tablet (40 mg total) by mouth daily. 90 tablet 3 06/29/2023 Active irbesartan (AVAPRO) 75 mg tablet Take 1 tablet (75 mg total) by mouth daily. 90 tablet 3 07/13/2023 Active cloNIDine (CATAPRES) 0.2 mg tablet Take 1 tablet (0.2 mg total) by mouth 2 (two) times a day. 180 tablet 3 08/05/2023 5 Active torsemide (DEMADEX) 20 mg tablet Take 3 tablets (60 mg total) by mouth daily. 270 tablet 3 08/05/2023 5 Active torsemide (DEMADEX) 20 mg tablet Take 2 tablets (40 mg total) by mouth daily. 180 tablet 3 06/26/2023 4 Discontinued cloNIDine (CATAPRES) 0.1 mg tablet Take 1 tablet (0.1 mg total) by mouth 2 (two) times a day. 180 tablet 3 07/17/2023 4 Discontinued Hospital, Clinic, or Other Facility Administered Medication Ordered Dose Route Frequency Start Date End Date Status sodium chloride 0.9 % injection 3 mL 3 mL IV As needed 09/08/2022 Active fluorescein 100 mg/mL (10 %) injection 500 mg (AK-FLUOR/FLUORESCEIN) 500 mg IV Once in imaging 09/08/2022 Active Active Problems Problem Noted Date Diagnosed Date Failure Renal End Stage 07/29/2023 Hypertension And Chronic Kidney Disease Stage 5 05/26/2023 Hyperparathyroidism 05/26/2023 Anemia Of Chronic Renal Disease 07/29/2022 Anemia Iron Deficiency 07/29/2022 Vitrectomy Status Post 03/18/2022 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 Sewell (oncology, [facility]), follow up Dr. Sewell 6-12 months with CEA and labs Future colonoscopies: clear liquid diet (no red liquids) 2-3 days prior to beginning colonoscopy preparation. An alternate large-volume preparation should be used, given the inadequacy the of the initial preparation 03/2022. - Given poor prep, recommend repeat colonoscopy w/i 1 year 03/2023 1.1cm tubular adenoma with low grade dysplasia. 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 Has benign features. Per oncology and repeat imaging was stable as of 03/2020 and determined to be benign ([facility]). 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 Tolerates 1500mg metformin per day. Cancer Colon Family History 01/19/2015 01/06/2020 Encounters Date Type Department Care Team Description 08/16/2023 Nurse Triage Department of [facility] Internal Medicine in [address] [place] [address] Philomena Raya R.N. Bradycardia; Weakness - Generalized 08/10/2023 Clinical Communication Division of Nephrology and Hypertension in [place], [place] [address] [place] [address] Kanwal Roberts RJosé LuisN. 08/05/2023 4:00 PM CDT External Outreach Division of Nephrology and Hypertension in [place], [place] [address] [place] [address] Sera Casiano M.D., Ph.D. Chronic Kidney Disease Stage 5 Glomerular Filtration Rate Less Than 15 (HCC) (Primary Dx); Preoperative Exam; Hypertension And Chronic Kidney Disease Stage 5 (HCC) 07/29/2023 2:40 PM CDT - 07/29/2023 11:59 PM CDT Hospital Encounter Division of Nephrology and Hypertension, [facility], in [place], [place] [address] [place] [address] Sera Casiano M.D., Ph.D. Sandeep Kuo M.D., Ph.D. Chronic Kidney Disease Stage 5 Glomerular Filtration Rate Less Than 15 (HCC) Discharge Disposition: Home or Self Care 07/29/2023 12:13 PM CDT - 07/29/2023 2:39 PM CDT Hospital Encounter Department of Radiology, [facility], in [place], [place] [address] [place] [address] Sera Casiano M.D., Ph.D. Chronic Kidney Disease Stage 5 Glomerular Filtration Rate Less Than 15 (HCC) Discharge Disposition: Home or Self Care 07/29/2023 10:52 AM CDT - 07/29/2023 12:12 PM CDT Hospital Encounter Department of Radiology, [place], [place] [address] [place] [address] Sera Casiano M.D., Ph.D. 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 07/23/2023 Clinical Communication Division of Nephrology and Hypertension in [place], [place] [address] [place] [address] Monica Ferreira R.N., C.M.S.R.N. 07/17/2023 1:00 PM CDT Virtual Visit Division of Nephrology and Hypertension in [place], [place] [address] [place] [address] Sera Casiano M.D., Ph.D. Kanwal Roberts R.N. Chronic Kidney Disease Stage 5 Glomerular Filtration Rate Less Than 15 (HCC) (Primary Dx) 07/17/2023 Orders Only Division of Nephrology and Hypertension in [place], [place] [address] [place] [address] Sera Casiano M.D., Ph.D. 07/11/2023 Refill Division of Nephrology and Hypertension in [place], [place] [address] [place] [address] Mónica Portillo APRN, C.N.P., M.S. Med Refill 07/10/2023 2:30 PM CDT Nurse Only Division of Nephrology and Hypertension in [place], [place] [address] [place] [address] Sera Casiano M.D., Ph.D. Aislinn Sharma R.N. home blood pressure monitor check 07/10/2023 1:00 PM CDT Comprehensive Visit Division of Nephrology and Hypertension in [place], [place] [address] [place] [address] Sera Casiano M.D., Ph.D. Elana Almonte, JANINAN, LD Chronic Kidney Disease Stage 5 Glomerular Filtration Rate Less Than 15 (HCC) 07/06/2023 9:06 AM CDT - 07/06/2023 11:59 PM CDT Hospital Encounter Department of Laboratory Medicine in [place] [address] [place] [address] Sera Casiano M.D., Ph.D. Hypertension And Chronic Kidney Disease Stage 5 (HCC); Proteinuria; 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 Discharge Disposition: Home or Self Care 07/06/2023 9:06 AM CDT - 07/06/2023 11:59 PM CDT Hospital Encounter Department of Laboratory Medicine in [place] [address] [place] [phone] Sera Casiano M.D., Ph.D. Hypertension And Chronic Kidney Disease Stage 5 (HCC); Proteinuria; 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 Discharge Disposition: Home or Self Care 06/30/2023 Orders Only Division of Nephrology and Hypertension in [place], [place] [address] [place] [phone] Sera Casiano M.D., Ph.D. 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 06/29/2023 1:30 PM TUBE PUSHER Comprehensive Visit Division of Endocrinology in [place], [place] [address] [place] [phone] Sera Casiano M.D., Ph.D. Cammy Silva M.D. Diabetes Mellitus Type 2 (HCC) (Primary Dx); Hypertension And Chronic Kidney Disease Stage 5 (HCC); Proteinuria; Insufficiency Adrenal Secondary (HCC); Morbid Obesity (HCC) 06/29/2023 11:47 AM TUBE PUSHER - 06/29/2023 11:59 PM TUBE PUSHER [facility] Department of Laboratory Medicine and Pathology, [facility], in [place], [place] [address] [place] [phone] Sera Casiano M.D., Ph.D. Hyperkalemia; 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 Discharge Disposition: Home or Self Care 06/26/2023 4:00 PM TUBE PUSHER Office Visit Division of Nephrology and Hypertension in [place], [place] [address] [place] [address] Sera Casiano M.D., Ph.D. Chronic Kidney Disease Stage 5 Glomerular Filtration Rate Less Than 15 (HCC) (Primary Dx); Hyperkalemia; 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 06/26/2023 3:00 PM TUBE PUSHER Education Division of Nephrology and Hypertension in [place], [place] [address] [place] [address] Sera Casiano M.D., Ph.D. Sandeep Galicia R.N. Chronic Kidney Disease Stage 4 Glomerular Filtration Rate 15-29 (HCC) 06/26/2023 8:15 AM TUBE PUSHER Internal E-Consult Division of Pulmonary Medicine in [address] [address] Louie Aleman M.D. 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 06/16/2023 Orders Only Division of Nephrology and Hypertension in [address] [address] Sandeep Galicia R.N. Chronic Kidney Disease Stage 4 Glomerular Filtration Rate 15-29 (HCC) (Primary Dx) 06/15/2023 3:20 PM TUBE PUSHER - 06/15/2023 11:59 PM TUBE PUSHER Hospital Encounter Department of Laboratory Medicine and Pathology, [facility] in [address] [address] Sera Casiano M.D., Ph.D. Chronic Kidney Disease Stage 5 Glomerular Filtration Rate Less Than 15 (HCC) Discharge Disposition: Home or Self Care 06/15/2023 2:45 PM TUBE PUSHER Office Visit Department of Ophthalmology in [address] [address] Justin Bunch M.D. 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 Sandeep Galicia R.Cally. Chronic Kidney Disease Stage 5 Glomerular Filtration Rate Less Than 15 (HCC) 06/15/2023 Orders Only Department of Ophthalmology in [place], [place] [address] [place] [phone] Bailey Campo C.O.A. 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 06/15/2023 Orders Only Division of Nephrology and Hypertension in [place], [place] [address] [place] [phone] Sera Casiano M.D., Ph.D. Chronic Kidney Disease Stage 5 Glomerular Filtration Rate Less Than 15 (HCC) (Primary Dx) 06/15/2023 Ancillary Procedure Department of Ophthalmology 06/15/2023 Orders Only Division of Nephrology and Hypertension in [place], [place] [address] [place] [phone] Sera Casiano M.D., Ph.D. Chronic Kidney Disease Stage 5 Glomerular Filtration Rate Less Than 15 (HCC) (Primary Dx) 06/12/2023 10:50 AM TUBE PUSHER - 06/12/2023 11:59 PM TUBE PUSHER Hospital Encounter Department of Laboratory Medicine in [address] [place] [address] Mónica Portillo APRN, C.N.P., M.S. Hypertension And Chronic Kidney Disease Stage 5 (HCC); Proteinuria; 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; Acute Metabolic Acidosis; Hyperphosphatemia; Hypocalcemia; Anemia Of Chronic Renal Disease Discharge Disposition: Home or Self Care 06/05/2023 Orders Only Department of Community Internal Medicine in [address] [place] [address] Clover Delaney M.D. 06/04/2023 Orders Only Division of Gastroenterology in [place], [place] [address] [place] [phone] Evelio Graham M.D. Genetic Susceptibility To Disease 06/04/2023 Clinical Communication Division of Nephrology and Hypertension in [place], [place] [address] [place] [phone] Sera Casiano M.D., Ph.D. Clarification on Aranesp 06/02/2023 Refill Department of Community Internal Medicine in [address] [place] [address] Karlene Rodríguez APRN, C.N.P., D.N.P. Med Refill 05/29/2023 4:00 PM TUBE PUSHER Comprehensive Visit Division of Nephrology and Hypertension in [place], [place] [address] [place] [phone] Sera Casiano M.D., Ph.D. 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 Sandeep Galicia, R.N. Chronic Kidney Disease Stage 5 Glomerular Filtration Rate Less Than 15 (HCC) (Primary Dx); Chronic Kidney Disease Stage 4 Glomerular Filtration Rate 15-29 (HCC) 05/29/2023 1:00 PM TUBE PUSHER Procedure visit Department of Urology in [place], [place] [address] [place] [phone] Mónica Portillo APRN, C.N.P., MLauren Jacobs Incomplete Bladder Emptying (Primary Dx); Hypertension And Chronic Kidney Disease Stage 5 (HCC); Proteinuria 05/29/2023 9:24 AM TUBE PUSHER - 05/29/2023 11:59 PM TUBE PUSHER Hospital Encounter Department of Radiology, [facility], in [place], [place] [address] [place] [address] Mónica Portillo APRN, C.N.P., M.S. Hypertension And Chronic Kidney Disease Stage 5 (HCC); Proteinuria Discharge Disposition: Home or Self Care 05/29/2023 8:00 AM TUBE PUSHER Office Visit Department of Community Internal Medicine in [place] [address] [place] [phone] Clover Delaney M.D. 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 Hypertension And Chronic Kidney Disease Stage 5 (HCC); Proteinuria Discharge Disposition: Home or Self Care 05/28/2023 10:00 AM TUBE PUSHER - 05/28/2023 10:01 AM TUBE PUSHER Hospital Encounter Department of Laboratory Medicine in [place] [address] [place] [phone] Mónica Portillo APRN, C.N.P., M.S. Hypertension And Chronic Kidney Disease Stage 5 (HCC); Proteinuria Discharge Disposition: Home or Self Care from Last 3 Months Immunizations Name Administration Dates Next Due DTaP (Infanrix, [employer]) 05/08/2008 HepA Adult 11/22/1999,05/17/1999 HepB Adult 02/21/2020 HepB Adult (HEPLISAV-B) 05/29/2023 HepB, Unspecified 09/05/2022(Deferred: Other) Influenza (IM) Preservative Free 01/25/2009,11/0 04/2007 Influenza Split 01/25/2009, 8,02/15/1997,1995 Influenza high dose QV(65 ye ars or older) (PF) 03/05/2023,03/10/2022,02/02/2021 Influenza, Seasonal, Injectable 02/18/20 14,03/10/2006,03/10/2006,2004,03/27/2005,04/03/2003,04/03/2003,1 06/07/2001,04/06/2002,04/22/2001, 001,05/01/2000,05/01/2000,03/18/1999,,03/26/1998,03/26/1998,02/15/19 97,02/16/1996 Influenza, Unspecified 03/10/2016,03/08/2015, PCV13 03/08/2015 PPSV23(Discontinued) 02/11/2019,03/01/2009,02/15 RSV: respiratory syncytial v irus (AREXVY) recombinant vaccine 03/05/2023 RZV (SHINGRIX) 09/05/2022(Deferred: Patient decision),06/07/2021 SARS-COV-2 (COVID-19) - PFIZ ER (Discontinued)(12 years or older) 06/19/2020 SARS-COV-2 (COVID-19) - PFIZ ER TS(Discontinued)(12 years or older) 10/05/2021 Td Preservative Free (TENIVA C, DECAVAC) 02/11/2019 Td, (Adult) Unspecified 02/16/1996 Tdap 05/08/2008 Tetanus Toxoid, Adsorbed (discontinued) 02/11/2019,02/16/1996 Tuberculin Skin Test, Unspecified 02/02/2018 influenza high dose (65 year s or older) (PF) 02/11/2019,02/10/2018,03/17/2017,2015,03/08/2015 influenza vaccine QV(FLUBLOK ) (18 years or older) (PF) 01/27/2020 influenza vaccine quad (FLUZONE/FLUARIX) (6 months and older)(PF) 01/27/2020,02/11/2019,02/10/2018,2016,03/10/2016,03/08/2015,02/17/2014,1 ,02/26/2008,03/10/2006, 005,04/03/2003,04/06/2002,04/22/2001,,03/18/1999,03/26/1998,02/15/19 97,02/16/1996 Family History Medical History Relation Name Comments [...] 8 yrs prior to Depression Mother Nora Hargrovetaemmanuelle Hypertension Mother Nora Hargrovetaemmanuelle Obesity Mother Nora Hargrovetaemmanuelle Rectal cancer Mother Nora Sanchez Stroke Paternal Grandfather Zurdo sanchez in March 1960 Cancer Sister Pat Jorstad colon Colon cancer Sister Pat Josabinetad A survivor, lance gnosed March 2005 Depression Sister Pat Jorstad Hypertension Sister Pat Jorstad Obesity Sister Pat Jorstad Sleep apnea Sister Pat Jorstad Heart disease Neg Hx Relation Name Status Comments Aunt paternal Father Sea Sanchez Maternal Grandfather Benja Bermeo Mother Nora Sanchez Paternal Grandfather Zurdo sanchez Sister Pat Josabinetaemmanuelle Alive Social History Tobacco Use Types Packs/Day Years Used Date Smoking Tobacco: Former Cigarettes 0 1961 - 12/26/1980 Passive Smoke Exposure: Never Smokeless Tobacco: Never Tobacco Cessation:Counseling Given: Not [...] 07/28/2022 PHQ-2 Answer Date Recorded PHQ-2 Score 2 05/28/2023 [facility] - Occupational Stress Questionnaire Answer Date [...] Assigned at Male 05/13/2021 10:11 AM TUBE PUSHER Gender Identity Male 11/02/2017 7:22 PM CDT Sexual Orientation Straight 11/02/2017 7: 22 PM CDT Last Filed Vital Signs Vital Sign Reading Time Taken Comments Blood Pressure 204/78 07/10/2023 3:05 PM CDT Pulse 52 06/15/2023 2:08 PM TUBE PUSHER Temperature 36.7 ??C (98.1 ??F) 04/07/2023 2:34 PM CS T Respiratory Rate 17 04/07/2023 2:34 PM TUBE PUSHER Oxygen Saturation 96% 04/07/2023 2:34 PM TUBE PUSHER Inhaled Oxygen Concentration - - Weight 157 kg (346 lb 2 oz) 07/10/2023 1:33 PM C DT Height 176.9 cm (5' 9.65) 07/10/2023 1:33 PM CD T Body Mass Index 50.17 07/10/2023 1:33 PM CDT Plan of Treatment Upcoming Encounters Date Type Department Care Team (Latest Contact Info) Description 08/19/2023 3:00 PM CDT Clinical Communication Virtual Review in [place], [place] [address] [place] [address] 08/21/2023 1:30 PM CDT Comprehensive Visit Division of Pulmonary Medicine in [place], [place] [address] [place] [phone] Gallito Crabtree M.D. [address] [place] [phone] 09/08/2023 10:00 AM CDT Appointment Department of Laboratory Medicine in [address] [place] [phone] Sera Casiano M.D., Ph.D. [address] [place] [phone] 09/08/2023 10:10 AM CDT Appointment Department of Laboratory Medicine in [address] [place] [phone] Sera Casiano M.D., Ph.D. [address] [place] [address] 09/28/2023 8:15 AM CDT Hospital Encounter Outpatient Surgery Unit in [place], [place] [address] [place] [address] Sandeep Kuo M.D., Ph.D. [address] [place] [phone] 09/28/2023 8:15 AM CDT - 09/28/2023 11:06 AM CDT Surgery [facility] [address] [place] [address] Sandeep Kuo M.D., Ph.D. 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) 09/28/2023 8:15 AM CDT Health Maintenance Due Date Last Done Comments Visit: Medicare Annual Wellness 1945 Diabetic Office Visit with F oot Exam 02/12/2021 02/13/2020 (Performed elsewhere), 02/11/2019, 01/11/2015 Zoster Vaccines (2 of 2) 08/02/2021 06/07/2021 COVID-19 Vaccine (2022-2 4 season) 2023 01/24/2023, 04/10/2022, 10/05/2021, Additional history exists Hepatitis B Vaccines (3 of 3 - Risk 3-dose series) 07/24/2023 05/29/2023, 02/21/2020 Hemoglobin A1C 09/29/2023 03/30/2023, 05/28, 03/31/2022, Additional history exists Office Visit for Blood Press ure Check / Re-check 10/23/2023 07/23/2023, 07/23/2023, 07/10/2023 Visit: Chronic Disease, age 18+ 05/29/2024 , 05/29/2023 Dilated Eye Exam 06/15/2024 06/15/2023, 01/2023, 01/19/2023, Additional history exists Urine Albumin 07/05/2024 07/06/2023, 12/07/2022, 09/01/2022, Additional history exists Creatinine Level (Kidney Fun ction Test) 07/28/2024 07/29/2023, 07/06/2023, 06/29/2023, Additional history exists Potassium Level 07/28/2024 07/29/2023, 06/25, 06/29/2023, Additional history exists Sodium Level 07/28/2024 07/29/2023, 06/25, 06/29/2023, Additional history exists DTaP,Tdap,and Td Vaccines (4 - Td or Tdap) 02/11/2029 02/11/2019, 05/08/2008, 05/08/2008, Additional history exists Hepatitis A Vaccines Completed 11/22/1999, 05/17/19 00 Abdominal Aortic Aneurysm (A AA) Screen Discontinued 07/22/2017, 03/14/1998, 02/10/1998 Pneumococcal vaccine (65+ years) Completed 02/11/2019, 03/08/2015, 03/01/2009, Additional history exists Influenza Vaccine Completed 03/05/2023, , 02/02/2021, Additional history exists RSV vaccine - (32-3 6 weeks) or 60+ years Completed 03/05/2023 Colonoscopy Discontinued 04/07/2023, 03/27, 04/08/2022, Additional history exists Colorectal Cancer Surveillance Discontinued Depression Screening (Annual PHQ-2) Completed 05/29/2023, 05/28/2023 Fall Risk Screen (Annual) Completed 05/29/2023 CT Colonography Discontinued Cologuard Discontinued Procedures Procedure Name Priority Date/Time Associated Diagnosis Comments US UPPER EXTREMITY BILATERAL DIALYSIS MAPPING RAD - Routine (most inpatients and all outpatients) 07/29/2023 2:41 PM CDT Chronic Kidney Disease Stage 5 Glomerular Filtration Rate Less Than 15 (HCC) CT CHEST WITHOUT IV CONTRAST RAD - Routine (most inpatients and all outpatients) 07/29/2023 11:22 AM CDT 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) MICROSCOPIC MANUAL Routine 07/29/2023 10:27 AM CDT DIPSTICK, U Routine 07/29/2023 10:27 AM CDT PH, U Routine 07/29/2023 10:27 AM CDT OSMOLALITY, U Routine 07/29/2023 10:27 AM CDT URINALYSIS WITH MICROSCOPIC Routine 07/29/2023 10:27 AM CDT 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) URIC ACID, S/P Routine 07/29/2023 10:17 AM CDT 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) PHOSPHORUS (INORGANIC), S Routine 07/29/2023 10:17 AM CDT 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) GLUCOSE, FASTING, S/P Routine 07/29/2023 10:17 AM CDT 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) C-REACTIVE PROTEIN (CRP), S/P Routine 07/29/2023 10:17 AM CDT 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) COMPREHENSIVE METABOLIC PANEL, S/P Routine 07/29/2023 10:17 AM CDT 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) CBC WITH DIFFERENTIAL, B Routine 07/29/2023 10:17 AM CDT 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) ANCA VASCULITIS PANEL, S Routine 07/29/2023 10:17 AM CDT 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) PULMONARY FUNCTION TESTS Routine 07/29/2023 9:02 AM CDT 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) ALBUMIN, RANDOM, U Routine 07/06/2023 9: 22 AM CDT Hypertension And Chronic Kidney Disease Stage 5 (HCC) Proteinuria 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 PROTEIN/CREATININE RATIO, RANDOM, URINE Routine 07/06/2023 9:22 AM CDT Hypertension And Chronic Kidney Disease Stage 5 (HCC) Proteinuria 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 URINALYSIS WITH MICROSCOPIC Routine 07/06/2023 9:22 AM CDT Hypertension And Chronic Kidney Disease Stage 5 (HCC) Proteinuria 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 FERRITIN, S Routine 07/06/2023 9:22 AM CDT Hypertension And Chronic Kidney Disease Stage 5 (HCC) Proteinuria 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 IRON AND TOT IRON-BINDING CAPACITY, S/P Routine 07/06/2023 9:22 AM CDT Hypertension And Chronic Kidney Disease Stage 5 (HCC) Proteinuria 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 CBC WITH DIFFERENTIAL, B Routine 07/06/2023 9:22 AM CDT Hypertension And Chronic Kidney Disease Stage 5 (HCC) Proteinuria 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 URIC ACID, S/P Routine 07/06/2023 9:22 AM CDT Hypertension And Chronic Kidney Disease Stage 5 (HCC) Proteinuria 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 CYSTATIN C WITH EGFR Routine 07/06/2023 9:22 AM CDT Hypertension And Chronic Kidney Disease Stage 5 (HCC) Proteinuria 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 RENAL FUNCTION PANEL, S Routine 07/06/2023 9:22 AM CDT Hypertension And Chronic Kidney Disease Stage 5 (HCC) Proteinuria 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 FERRITIN, S Routine 06/29/2023 12:11 PM TUBE PUSHER 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 IRON AND TOT IRON-BINDING CAPACITY, S/P Routine 06/29/2023 12:11 PM TUBE PUSHER 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 RENAL FUNCTION PANEL, S Routine 06/29/2023 12:11 PM TUBE PUSHER Hyperkalemia QUANTIFERON-TB GOLD PLUS, B Routine 06/15/2023 4:07 PM TUBE PUSHER Chronic Kidney Disease Stage 5 Glomerular Filtration Rate Less Than 15 (HCC) BASIC METABOLIC PANEL, S/P Routine 06/15/2023 4:06 PM TUBE PUSHER Chronic Kidney Disease Stage 5 Glomerular Filtration Rate Less Than 15 (HCC) HEPATITIS B SURFACE ANTIGEN Routine 06/15/2023 4:06 PM TUBE PUSHER Chronic Kidney Disease Stage 5 Glomerular Filtration Rate Less Than 15 (HCC) HCV AB W/REFLEX TO HCV PCR, S Routine 06/15/2023 4:06 PM TUBE PUSHER Chronic Kidney Disease Stage 5 Glomerular Filtration Rate Less Than 15 (HCC) HBC TOTAL AB, SERUM Routine 06/15/2023 4 :06 PM TUBE PUSHER Chronic Kidney Disease Stage 5 Glomerular Filtration Rate Less Than 15 (HCC) HBS ANTIBODY, SERUM Routine 06/15/2023 4 :06 PM TUBE PUSHER Chronic Kidney Disease Stage 5 Glomerular Filtration Rate Less Than 15 (HCC) OPTICAL COHERENCE TOMOGRAPHY - MACULA/RETINA - OU - BOTH EYES Routine 06/15/2023 2:26 PM TUBE PUSHER 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) OPHTHALMOLOGY IMAGE EXAM Routine 06/15/2023 12:00 AM TUBE PUSHER CBC WITH DIFFERENTIAL, B Routine 06/12/2023 10:53 AM TUBE PUSHER Anemia Of Chronic Renal Disease FOLATE, S Routine 06/12/2023 10:53 AM TUBE PUSHER Hypertension And Chronic Kidney Disease Stage 5 (HCC) Proteinuria 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 Acute Metabolic Acidosis Hyperphosphatemia Hypocalcemia VITAMIN B12 ASSAY, S Routine 06/12/2023 10:53 AM TUBE PUSHER Hypertension And Chronic Kidney Disease Stage 5 (HCC) Proteinuria 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 Acute Metabolic Acidosis Hyperphosphatemia Hypocalcemia URO UROFLOW Routine 05/29/2023 1:00 PM TUBE PUSHER Hypertension And Chronic Kidney Disease Stage 5 (HCC) Proteinuria US KIDNEYS BILATERAL WITH BLADDER RAD - Routine (most inpatients and all outpatients) 05/29/2023 10:33 AM TUBE PUSHER Hypertension And Chronic Kidney Disease Stage 5 (HCC) Proteinuria URINALYSIS WITH MICROSCOPIC Routine 05/28/2023 10:13 AM TUBE PUSHER Hypertension And Chronic Kidney Disease Stage 5 (HCC) Proteinuria CYSTATIN C WITH EGFR Routine 05/28/2023 10:08 AM TUBE PUSHER Hypertension And Chronic Kidney Disease Stage 5 (HCC) Proteinuria RENAL FUNCTION PANEL, S Routine 05/28/2023 10:08 AM TUBE PUSHER Hypertension And Chronic Kidney Disease Stage 5 (HCC) Proteinuria COLONOSCOPY Routine 04/07/2023 1:48 PM TUBE PUSHER Cancer Colon Transverse Personal History HEMOGLOBIN A1C, B Routine 03/30/2023 12:21 PM TUBE PUSHER Hypertension And Chronic Kidney Disease Stage 5 (HCC) Anemia Of Chronic Renal Disease US AORTA AAA SCREENING RAD - Routine (most inpatients and all outpatients) 07/22/2017 7:39 AM CDT Maintenance Health Adult from Last 3 Months or Most Recently Relevant to Health Maintenance Results * US Upper Extremity Bilateral Dialysis Mapping (07/29/2023 2:41 PM CDT) Anatomical Region Laterality Modality Upper Extremity, Ultrasound RST LOS, Ultrasound ARZ LOS, Ultrasound FLA LOS, Procedural, Vascular Interventional NWWI LOS Bilateral Ultrasound Impressions 07/29/2023 2:50 PM CDT Sonographic vein mapping with measurements per full report. Narrative 07/29/2023 2:50 PM CDT EXAM: US UPPER EXTREMITY BILATERAL DIALYSIS MAPPING Exam performed with color and spectral Doppler analysis. COMPARISON: None FINDINGS: RIGHT Deep Vein Assessment: Normal. Central Arterial Assessment: Normal. ARTERIAL DIAMETERS Brachial artery: 4.7 mm Radial artery: 2.4 mm Ulnar artery: 1.7 mm Distance from right elbow crease to brachial artery bifurcation: 2.5 cm below. CEPHALIC VEIN Upper humerus: 3.8 mm Mid humerus: 3.8 mm Lower humerus: 3.7 mm Antecubital fossa: 5.0 mm Upper forearm: 2.1 mm Mid forearm: 2.7 mm Wrist: 1.8 mm BASILIC VEIN Upper humerus: 4.5 mm Mid humerus: 1.9 mm Lower humerus: Antecubital fossa: Upper forearm: Mid forearm: Wrist: LEFT Deep Vein Assessment: Normal. Central Arterial Assessment: Normal. ARTERIAL DIAMETERS Brachial artery: 5.6 mm Radial artery: 1.8 mm Ulnar artery: 2.0 mm Distance from left elbow crease to brachial artery bifurcation: 2.7cm below. CEPHALIC VEIN Upper humerus: 3.4 mm Mid humerus: 2.9 mm Lower humerus: 2.7 mm Antecubital fossa: 2.4 mm Upper forearm: 1.7 mm Mid forearm: Wrist: BASILIC VEIN Upper humerus: 2.7 mm Mid humerus: 2.5 mm Lower humerus: 2.1 mm Antecubital fossa: 2.0 mm Upper forearm: 1.6 mm Mid forearm: Wrist: Stoddard: ( * ) = too small (<2mm) or not visualized ( X ) = not examined Procedure Note Prieto Brown M.D. - 07/29/2023 EXAM: US UPPER EXTREMITY BILATERAL DIALYSIS MAPPING Exam performed with color and spectral Doppler analysis. COMPARISON: None FINDINGS: RIGHT Deep Vein Assessment: Normal. Central Arterial Assessment: Normal. ARTERIAL DIAMETERS Brachial artery: 4.7 mm Radial artery: 2.4 mm Ulnar artery: 1.7 mm Distance from right elbow crease to brachial artery bifurcation: 2.5 cmbelow. CEPHALIC VEIN Upper humerus: 3.8 mm Mid humerus: 3.8 mm Lower humerus: 3.7 mm Antecubital fossa: 5.0 mm Upper forearm: 2.1 mm Mid forearm: 2.7 mm Wrist: 1.8 mm BASILIC VEIN Upper humerus: 4.5 mm Mid humerus: 1.9 mm Lower humerus: Antecubital fossa: Upper forearm: Mid forearm: Wrist: LEFT Deep Vein Assessment: Normal. Central Arterial Assessment: Normal. ARTERIAL DIAMETERS Brachial artery: 5.6 mm Radial artery: 1.8 mm Ulnar artery: 2.0 mm Distance from left elbow crease to brachial artery bifurcation: 2.7cmbelow. CEPHALIC VEIN Upper humerus: 3.4 mm Mid humerus: 2.9 mm Lower humerus: 2.7 mm Antecubital fossa: 2.4 mm Upper forearm: 1.7 mm Mid forearm: Wrist: BASILIC VEIN Upper humerus: 2.7 mm Mid humerus: 2.5 mm Lower humerus: 2.1 mm Antecubital fossa: 2.0 mm Upper forearm: 1.6 mm Mid forearm: Wrist: Stoddard: ( * ) = too small (<2mm) or not visualized ( X ) = not examined IMPRESSION: Sonographic vein mapping with measurements per full report. Sera Hyman M.D., Ph.D. IMG US PROCEDURES * CT Chest without IV Contrast (07/29/2023 11:22 AM CDT) Anatomical Region Laterality Modality Chest, Thoracic RST LOS, Tho racic ARZ LOS, Thoracic FLA LOS N/A Computed Tomography, Compute d Tomography Impressions 07/29/2023 2:29 PM CDT 1. Stable nodule in the right middle lobe should be benign. 2. New increased attenuation in a left renal cyst likely due to interval hemorrhage. Narrative 07/29/2023 2:29 PM CDT EXAM: CT CHEST WITHOUT IV CONTRAST COMPARISON: CT chest 08/26/[address] abdomen 02/07/2019 FINDINGS: Small nodule in the right middle lobe laterally (series 3, image 351) is unchanged since 08/26/2018. Tiny bilateral calcified granulomas. No new nodules. Scattered areas of scarring in the lower lungs without evidence of interstitial lung disease. No significant air trapping on expiratory imaging. Scattered nodes in the chest without adenopathy. Mildly patulous esophagus. Partially calcified pleural thickening in the right lower chest with some associated scarring/atelectasis in the adjacent right lower lobe. Marked coronary artery calcification. There is increased attenuation in the previously noted cyst in the upper pole of the left kidney (image 535). Hypertrophic changes in the spine. Mild degenerative changes both shoulders. Procedure Note Wilfred Bell M.D. - 07/29/2023 EXAM: CT CHEST WITHOUT IV CONTRAST COMPARISON: CT chest 08/26/[address] abdomen 02/07/2019 FINDINGS: Small nodule in the right middle lobe laterally (series 3, image 351) isunchanged since 08/26/2018. Tiny bilateral calcified granulomas. No newnodules. Scattered areas of scarring in the lower lungs without evidenceof interstitial lung disease. No significant air trapping on expiratory imaging. Scattered nodes in the chest without adenopathy. Mildly patulousesophagus. Partially calcified pleural thickening in the right lower chestwith some associated scarring/atelectasis in the adjacent right lowerlobe. Marked coronary artery calcification. There is increased attenuation inthe previously noted cyst in the upper pole of the left kidney ([id number]). Hypertrophic changes in the spine. Mild degenerative changes bothshoulders. IMPRESSION: 1. Stable nodule in the right middle lobe should be benign. 2. New increased attenuation in a left renal cyst likely due to intervalhemorrhage. Sera Hyman M.D., Ph.D. IMG CT PROCEDURES * (ABNORMAL) Dipstick, Urine (07/29/2023 10:27 AM CDT) Hemoglobin, QL, U Trace(A) Negative 07/29/2023 11:25 AM CDT DTL Leukocyte Esterase, U Negative Negative 07/29/2023 11:25 AM CDT DTL Nitrite, U Negative Negative 07/29/2023 11:25 AM CDT DTL Ketone, U Negative Negative mg/dL 07/29/2023 11:25 AM CDT DTL Glucose, U 150(A) Negative mg/dL 07/29/2023 11:25 AM CDT DTL Urine 07/29/2023 10:2 7 AM CDT 07/29/2023 10:35 AM CDT Sera Hyman M.D., Ph.D. LAB UR INE ORDERABLES Performing Organization Address [facility] Co de Phone Number [facility] [address] [place] [address] * (ABNORMAL) Microscopic Manual (07/29/2023 10:27 AM CDT) Microscopy Abnormal 07/29/2023 1:01 PM CDT DTL RBC <3 <3 /hpf 07/29/2023 1:01 PM CDT DTL WBC None Seen /hpf 07/29/2023 1:01 PM CDT DTL Comment: ----REFERENCE VALUE---- <4 ??(Males) <11 (Females) Casts, Hyaline Occas /lpf 07/29/2023 1:01 PM CDT DTL Casts, Fatty Occas(A) /lpf 07/29/2023 1:01 PM CDT DTL Fat, Free Occas(A) /hpf 07/29/2023 1:01 PM CDT DTL Oval Fat Body Occas(A) /hpf 07/29/2023 1:01 PM CDT DTL Urine 07/29/2023 10:2 7 AM CDT 07/29/2023 11:25 AM CDT Sera Hyman M.D., Ph.D. LAB UR INE ORDERABLES Performing Organization Address City/[facility]/ZIP Co de Phone Number [facility] [address] [place] [address] * pH, Urine (07/29/2023 10:27 AM CDT) pH, U 6.2 4.5 - 8.0 07/29/2023 11: 02 AM CDT DTL Urine 07/29/2023 10:2 7 AM CDT 07/29/2023 10:35 AM CDT Sera Hyman M.D., Ph.D. LAB UR INE ORDERABLES Performing Organization Address City/[facility] Co de Phone Number [facility] [address] [place] [address] * Osmolality, Urine (07/29/2023 10:27 AM CDT) Osmolality, U 323 150 - 1150 mOsm/kg 07/29/2023 11:02 AM CDT DTL Urine 07/29/2023 10:2 7 AM CDT 07/29/2023 10:35 AM CDT Sera Hyman M.D., Ph.D. LAB UR INE ORDERABLES Performing Organization Address City/[facility] Co de Phone Number [facility] 200 [place], [place] [phone] [place] [address] * (ABNORMAL) Urinalysis, with Microscopic: Urine, Midstream (07/29/2023 10:27 AM CDT) Only the most recent of3 resultswithin the time period is included. Source Urine, Urine, Midstream 07/29/2023 10:35 AM CDT DTL Color, U Yellow 07/29/2023 10:35 AM CDT DTL Clarity, U Clear 07/29/2023 10:35 AM CDT DTL Protein, U 308(H) <26 mg/dL 07/29/2023 11:44 AM CDT DTL Protein/Osmol ality 9.54(H) <0.42 ratio 07/29/2023 11:44 AM CDT DTL Predicted 24 HR Protein, U 8076(H) <229 mg/24 h 07/29/2023 11:44 AM CDT DTL Predicted Range 2563-08121 mg/24 h 07/29/2023 11:44 AM CDT DTL Comment Micro done on <10 mL 07/29/2023 1:01 PM CDT DTL Urine (Urine, Midstream) 07/29/2023 10:27 AM CDT 07/29/2023 10:35 AM CDT Sera Hyman M.D., Ph.D. LAB UR INE ORDERABLES Performing Organization Address City/[facility]/ZIP Co de Phone Number [facility] [address] [place] [address], [facility] [address] [place] [address] * ANCA (Antineutrophil Cytoplasmic Antibodies) Vasculitis Panel (07/29/2023 10:17 AM CDT) Pathologist [facility] [place] Myeloperoxidase Ab, S <0.2 <0.4 (Negative ) U 07/29/2023 4:45 PM CDT SDSC Proteinase 3 Ab (PR3), S <0.2 <0.4 (Negative ) U 07/29/2023 4:45 PM CDT [facility] Blood (Blood, Venous) 07/29/2023 10:17 AM CDT 07/29/2023 2:52 PM CDT Sera Hyman M.D., Ph.D. LAB BL OOD ADD-ON Performing Organization Address City/[facility]/ZIP Co de Phone Number [facility] [address] [place] [address] [facility][note 3] [address] [place] [address] * (ABNORMAL) CBC with Differential, Blood (07/29/2023 10:17 AM CDT) Only the most recent of3 resultswithin the time period is included. Hemoglobin 8.2(L) 13.2 - 16.6 g/dL 07/29/2023 11:03 AM CDT DTL Hematocrit 25.4(L) 38.3 - 48.6 % 07/29/2023 11:03 AM CDT DTL Erythrocytes 2.71(L) 4.35 - 5.65 x10(12)/L 07/29/2023 11:03 AM CDT DTL MCV 93.7 78.2 - 97.9 fL 07/29/2023 11:03 AM CDT DTL RBC Distrib Width 14.5 11.8 - 14.5 % 07/29/2023 11:03 AM CDT DTL Platelet Count 135 135 - 317 x10(9)/L 07/29/2023 11:03 AM CDT DTL Leukocytes 9.3 3.4 - 9.6 x10(9)/L 07/29/2023 11:03 AM CDT DTL Neutrophils 8.17(H) 1.56 - 6.45 x10(9)/L 07/29/2023 11:03 AM CDT [facility] Lymphocytes 0.49(L) 0.95 - 3.07 x10(9)/L 07/29/2023 11:03 AM CDT DTL Monocytes 0.54 0.26 - 0.81 x10(9)/L 07/29/2023 11:03 AM CDT DTL Eosinophils 0.12 0.03 - 0.48 x10(9)/L 07/29/2023 11:03 AM CDT DTL Basophils <0.03 0.01 - 0.08 x10(9)/L 07/29/2023 11:03 AM CDT DTL Blood (Blood, Venous) 07/29/2023 10:17 AM CDT 07/29/2023 10:45 AM CDT Sera Hyman M.D., Ph.D. LAB BL OOD ADD-ON [facility] [address] [place] [address], [facility] DTL [facility] [address] [place] [address] [facility] [address] [place] [address] * CRP (C-Reactive Protein) (07/29/2023 10:17 AM CDT) Pathologist [facility] C-Reactive Protein (CRP), S <3.0 <5.0 mg/L 07/29/2023 12:32 PM CDT DTL Blood (Blood, Venous) 07/29/2023 10:17 AM CDT 07/29/2023 10:55 AM CDT Sera Hyman M.D., Ph.D. LAB BL OOD ADD-ON Performing Organization Address City/[facility]/ZIP Co de Phone Number [facility] [address] [place] [address] * (ABNORMAL) Uric Acid (07/29/2023 10:17 AM CDT) Only the most recent of2 resultswithin the time period is included. Uric Acid, S 11.2(H) 3.7 - 8.0 mg/dL 07/29/2023 12:32 PM CDT DTL Blood (Blood, Venous) 07/29/2023 10:17 AM CDT 07/29/2023 10:55 AM CDT Sera Hyman M.D., Ph.D. LAB BL OOD ADD-ON Performing Organization Address [facility] Co de Phone Number [facility] 200 [place] [address], [facility] 200 [place] [address] * Phosphorus Inorganic (07/29/2023 10:17 AM CDT) Phosphorus (Inorganic), S 4.5 2.5 - 4.5 mg/dL 07/29/2023 12:32 PM CDT DTL Blood (Blood, Venous) 07/29/2023 10:17 AM CDT 07/29/2023 10:55 AM CDT Sera Hyman M.D., Ph.D. LAB BL OOD ADD-ON Performing Organization Address City/[facility]/ZIP Co de Phone Number [facility] [address] [place] [address], [facility] 200 [place] [address] * (ABNORMAL) Glucose, Fasting (07/29/2023 10:17 AM CDT) [facility] Glucose, P 256(H) 70 - 100 mg/dL 07/29/2023 11:15 AM CDT DTL Last Intake 16 hr 07/29/2023 10:52 AM CDT DTL Blood (Blood, Venous) 07/29/2023 10:17 AM CDT 07/29/2023 10:52 AM CDT Sera Hyman M.D., Ph.D. LAB BL OOD NON ADD-ON [facility] [address] [place] [address], [facility] 200 [place] [address] * (ABNORMAL) Comprehensive Metabolic Panel (07/29/2023 10:17 AM CDT) [facility] Potassium, S 4.2 3.6 - 5.2 mmol/L 07/29/2023 12:32 PM CDT DTL Sodium, S 137 135 - 145 mmol/L 07/29/2023 12:32 PM CDT DTL Chloride, S 98 98 - 107 mmol/L 07/29/2023 12:32 PM CDT DTL Bicarbonate, S 24 22 - 29 mmol/L 07/29/2023 12:32 PM CDT DTL Anion Gap 15 7 - 15 07/29/2023 12:32 PM CDT DTL BUN (Blood Urea Nitrogen), S 78(H) 8 - 24 mg/dL 07/29/2023 12:32 PM CDT DTL Creatinine 4.57(H) 0.74 - 1.35 mg/dL 07/29/2023 12:32 PM CDT DTL Estimated GFR (eGFR) <15(L) >=60 mL/min/BS A 07/29/2023 12:32 PM CDT DTL Comment: Estimated GFR calculated using the 2020 CKD_EPI creatinine equation. Calcium, Total, S 8.8 8.8 - 10.2 mg/dL 07/29/2023 12:32 PM CDT DTL Glucose, S CANCELED mg/dL 07/29/2023 10:55 AM CDT DTL Comment: Duplicate test request. Result canceled by the ancillary. Protein, Total, S 5.8(L) 6.3 - 7.9 g/dL 07/29/2023 12:32 PM CDT DTL Albumin, S 3.7 3.5 - 5.0 g/dL 07/29/2023 12:32 PM CDT DTL Aspartate Aminotransferase (AST), S 11 8 - 48 U/L 07/29/2023 12:32 PM CDT DTL Alkaline Phosphatase, S 80 40 - 129 U/L 07/29/2023 12:32 PM CDT DTL Alanine Aminotransferase (ALT), S 14 7 - 55 U/L 07/29/2023 12:32 PM CDT DTL Bilirubin, Total, S 0.7 0.0 - 1.2 mg/dL 07/29/2023 12:32 PM CDT DTL Blood (Blood, Venous) 07/29/2023 10:17 AM CDT 07/29/2023 10:55 AM CDT Sera Hyman M.D., Ph.D. LAB BL OOD ADD-ON [facility] [address] [place] [address], [facility] [address] [place] [address] * Pulmonary Function Tests (07/29/2023 9:02 AM CDT) FVC 2.15 L 07/29/2023 10:32 AM CDT [facility] FEV1 1.56 L 07/29/2023 10:32 AM CDT [facility] FEV1/FVC 72.56 % 07/29/2023 10:32 AM CDT [facility] JRD36-60% 1.03 L/s 07/29/2023 10:32 AM CDT [facility] PEF PRE 5.91 L/s 07/29/2023 10:32 AM CDT [facility] PIF PRE 3.35 L/s 07/29/2023 10:32 AM CDT [facility] FEF 50 % FIF 50 PRE 54.00 % 07/29/2023 10:32 AM CDT [facility] FET PRE 9.49 sec 07/29/2023 10:32 AM CDT [facility] DLCO 10.65 ml/(min*mm Hg) 07/29/2023 10:32 AM CDT [facility] DLCOc 14.91 ml/(min*mm Hg) 07/29/2023 10:32 AM CDT [facility] HB 7.40 g(Hb)/dL 07/29/2023 10:32 AM CDT [facility] VA 4.05 L 07/29/2023 10:32 AM CDT [facility] PulseRest 50.00 1/min 07/29/2023 10:32 AM CDT [facility] TLC 4.43 L 07/29/2023 10:32 AM CDT [facility] FRCPLETH PROVBASE 2.72 L 07/29/2023 10:32 AM CDT [facility] RV 1.96 L 07/29/2023 10:32 AM CDT [facility] RV % TLC PRE 44.12 % 07/29/2023 10:32 AM CDT [facility] 07/29/2023 9:02 AM CDT Impressions [facility] - 07/29/2023 10:32 AM CDT Abnormal study. Moderate restriction. Diffusing capacity ( adjusted for low hemoglobin) is mildly reduced consistent with pulmonary parenchymal and/or vascular process. Normal resting oximetry with exercise oximetry not performed due to fall risk. Compared to 06/11/2006, FEV1, FVC and DLCO are decreased. Narrative Procedure Note Da Reed M.D. - 07/29/2023 IMPRESSION: Abnormal study. Moderate restriction. Diffusing capacity ( adjusted forlow hemoglobin) is mildly reduced consistent with pulmonary parenchymaland/or vascular process. Normal resting oximetry with exercise oximetrynot performed due to fall risk. Compared to 06/11/2006, FEV1, FVC and DLCO are decreased. Sera Hyman M.D., Ph.D. PFT OR DERABLES MATT ARAYA [address] * (ABNORMAL) Renal Function Panel (07/06/2023 9:22 AM CDT) Only the most recent of3 resultswithin the time period is included. Potassium, P 4.3 3.6 - 5.2 mmol/L 07/06/2023 12:36 PM CDT [facility] Sodium, P 141 135 - 145 mmol/L 07/06/2023 12:36 PM CDT [facility] Chloride, P 103 98 - 107 mmol/L 07/06/2023 12:36 PM CDT [facility] Bicarbonate, P 25 22 - 29 mmol/L 07/06/2023 12:35 PM CDT [facility] Anion Gap, P 13 7 - 15 07/06/2023 12:36 PM CDT [facility] BUN (Blood Urea Nitrogen), P 77(H) 8 - 24 mg/dL 07/06/2023 12:35 PM CDT [facility] Creatinine 4.47(H) 0.74 - 1.35 mg/dL 07/06/2023 12:35 PM CDT [facility] Estimated GFR (eGFR) <15(L) >=60 mL/min/BSA 07/06/2023 12:35 PM CDT [facility] Comment: Estimated GFR calculated using the 2020 CKD_EPI creatinine equation. Calcium, Total, P 8.8 8.8 - 10.2 mg/dL 07/06/2023 12:35 PM CDT [facility] Glucose, P 198(H) 70 - 140 mg/dL 07/06/2023 12:35 PM CDT [facility] Albumin, P 3.8 3.5 - 5.0 g/dL 07/06/2023 12:35 PM CDT [facility] Phosphorus (Inorganic), P 5.6(H) 2.5 - 4.5 mg/dL 07/06/2023 12:35 PM CDT [facility] Blood (Blood, Venous) 07/06/2023 9:22 AM CDT 07/06/2023 11:51 AM CDT Sera Hyman M.D., Ph.D. LAB BL OOD ADD-ON [facility] [address] [place] [address], [place] RDWG [facility] in [place] [address] [place] [address] * (ABNORMAL) Cystatin C with Estimated GFR (07/06/2023 9:22 AM CDT) Only the most recent of2 resultswithin the time period is included. eGFR by Cystatin C 9(L) >60 mL/min/BSA 07/07/2023 12:38 PM CDT DTL Comment: Estimated GFR calculated using [...] lower with the new assay. Cystatin C 4.64(H) 0.67 - 1.21 mg/L 07/07/2023 12:38 PM CDT DTL Blood (Blood, Venous) 07/06/2023 9:22 AM CDT 07/07/2023 12:19 PM CDT Sera Hyman M.D., Ph.D. LAB BL OOD ADD-ON [facility] [address] [place] [address], [place] DTL [facility] [address] [place] [address] * (ABNORMAL) Iron and Total Iron-Binding Capacity (07/06/2023 9:22 AM CDT) Only the most recent of2 resultswithin the time period is included. Iron 52 50 - 150 mcg/dL 07/06/2023 12:48 PM CDT RDWG Total Iron Binding Capacity 222(L) 250 - 400 mcg/dL 07/06/2023 12:48 PM CDT [facility] Percent Saturation 23 14 - 50 % 07/06/2023 12:48 PM CDT [facility] Blood (Blood, Venous) 07/06/2023 9:22 AM CDT 07/06/2023 11:51 AM CDT Sera Hyman M.D., Ph.D. LAB BL OOD ADD-ON [facility] [address] [place] [address], [facility] RDWG [facility] in [address] [address] * (ABNORMAL) Albumin, Random, Urine (07/06/2023 9:22 AM CDT) Microalbumin 2309.6 mg/L 07/06/2023 1:30 PM CDT [facility] Creatinine 69 mg/dL 07/06/2023 12:51 PM CDT R[facility] Albumin/Creatinin e Ratio 3347(H) <17 mg/g 07/06/2023 1:30 PM CDT [facility] Urine (Urine, Voided) 07/06/2023 9:22 AM CDT 07/06/2023 11:59 AM CDT Sera Hyman M.D., Ph.D. LAB UR INE ORDERABLES [facility] [address] [place] [address], [facility] RDWG [facility] in [place] [address] [place] [id number] * (ABNORMAL) Protein/Creatinine Ratio, Random, Urine (07/06/2023 9:22 AM CDT) Protein, Total, Random, U 328 mg/dL 07/06/2023 1:30 PM CDT [facility] Creatinine, Random, U 68 16 - 326 mg/dL 07/06/2023 12:51 PM CDT [facility] Protein/Creati nine Ratio 4.82(H) <0.18 mg/mg 07/06/2023 1:30 PM CDT [facility] Urine (Urine, Midstream) 07/06/2023 9:22 AM CDT 07/06/2023 11:58 AM CDT Sera Hyman M.D., Ph.D. LAB UR INE ORDERABLES Performing Organization Address City/[facility]/ZIP Co de Phone Number [facility] [address] [place] [address], [facility] RDWG [facility] in [address] [address] * (ABNORMAL) Ferritin (07/06/2023 9:22 AM CDT) Only the most recent of2 resultswithin the time period is included. Ferritin, S 457(H) 31 - 409 mcg/L 07/06/2023 12:57 PM CDT RDWG Comment: Biotin has been identified by the physical director as a potential interfering substance. Higher concentrations of biotin may be found in multivitamins, hair/nail supplements, and workout supplements. If the result does not match clinical observations, repeat testing after patient refrains from the use of supplements for at least 12 hours. Blood (Blood, Venous) 07/06/2023 9:22 AM CDT 07/06/2023 11:51 AM CDT Sera Hyman M.D., Ph.D. LAB BL OOD ADD-ON Performing Organization Address City/[facility]/ZIP Co de Phone Number [facility] [address] [place] [address], [facility] RDWG [facility] in [address] [address] * QuantiFERON-Tb Gold Plus, Blood (06/15/2023 4:07 PM TUBE PUSHER) [facility] QuantiFERON-TB Gold Plus Result Negative Negative 06/16/2023 12:08 PM TUBE PUSHER SDS Comment: No interferon-gamma response to M. tuberculosis antigens was detected. Latent infection with M. tuberculosis is unlikely. A single negative result does not exclude infection with M. tuberculosis. In patients at high risk for M.tuberculosis infection, a second test should be considered in accordance with the 2017 ATS/IDSA/CDC Clinical Practice Guidelines for Diagnosis of Tuberculosis in Adults and Children [Kateryna KUHN et. al. Clin. Infect. Dis. 2017;64(2):111-115]. The reference range for the 'TB1 Ag minus Nil Result' and 'TB2 Ag minus Nil Result' is an Interferon-gamma level <0.35 IU/mL. TB1 Ag minus Nil Result 0.02 IU/mL 06/16/2023 12:08 PM TUBE PUSHER SDSC TB2 Ag minus Nil Result 0.01 IU/mL 06/16/2023 12:08 PM TUBE PUSHER SDSC Mitogen minus Nil Result 3.42 IU/mL 06/16/2023 12:08 PM TUBE PUSHER SDSC Nil Result 0.04 IU/mL 06/16/2023 12:08 PM TUBE PUSHER SDSC Blood (Blood, Venous) 06/15/2023 4:07 PM TUBE PUSHER 06/15/2023 5:59 PM TUBE PUSHER Narrative [facility] - 06/16/2023 12:08 PM TUBE PUSHER Specimen Information: Specimen ID: [id number] Specimen Type: Blood Specimen Collection Start Date: 06/15/2023 ??4:07 PM Specimen Received Date: 06/15/2023 ??5:59 PM Specimen ID: [id number] Specimen Type: Blood Specimen Collection Start Date: 06/15/2023 ??4:07 PM Specimen Received Date: 06/15/2023 ??5:59 PM Specimen ID: [id number] Specimen Type: Blood Specimen Collection Start Date: 06/15/2023 ??4:07 PM Specimen Received Date: 06/15/2023 ??5:59 PM Specimen ID: [id number] Specimen Type: Blood Specimen Collection Start Date: 06/15/2023 ??4:07 PM Specimen Received Date: 06/15/2023 ??5:59 PM Sera Hyman M.D., Ph.D. LAB [facility] BLOOD ORDERABLES Performing Organization Address City/[facility]/ZIP Co de Phone Number [facility] [address] [place], [place] [id number] [place] [address] [place] [address] * HCV Ab w/Reflex to HCV PCR, Serum (06/15/2023 4:06 PM TUBE PUSHER) [facility] HCV Ab, S Negative Negative 06/15/2023 10:21 PM TUBE PUSHER [facility] Comment:Gfxjje-ay-iaqdac rat io is <1.00. Blood (Blood, Venous) 06/15/2023 4:06 PM TUBE PUSHER 06/15/2023 8:15 PM TUBE PUSHER Sera Hyman M.D., Ph.D. LAB [facility] - BLOOD ORDERABLES Performing Organization Address [facility] Co de Phone Number [facility] [address] [place] [address] [facility][note 3] [address] [place] [address] * HBc Total Ab, Serum (06/15/2023 4:06 PM TUBE PUSHER) [facility] HBc Total Ab, S Negative Negative 06/15/2023 10:17 PM TUBE PUSHER [facility] Blood (Blood, Venous) 06/15/2023 4:06 PM TUBE PUSHER 06/15/2023 8:15 PM TUBE PUSHER Sera Hyman M.D., Ph.D. LAB [facility] - BLOOD ORDERABLES Performing Organization Address City/[facility]/ZIP Co de Phone Number [facility] [address] [place] [address] [facility][note 3] [address] [place] [address] * HBs Antibody, Serum (06/15/2023 4:06 PM TUBE PUSHER) HBs Antibody, S Negative 06/15/2023 10:18 PM TUBE PUSHER [facility] Comment: Patient is presumed to be not immune to infection with HBV. ----REFERENCE VALUE---- Unvaccinated: Negative Vaccinated: Positive HBs Antibody, Quantitative, S <5.0 mIU/mL 06/15/2023 10:18 PM TUBE PUSHER [facility] Comment: ----REFERENCE VALUE---- Unvaccinated: <5.0 Vaccinated: >=12.0 Blood (Blood, Venous) 06/15/2023 4:06 PM TUBE PUSHER 06/15/2023 8:15 PM TUBE PUSHER Sera Hyman M.D., Ph.D. LAB [facility]ITALTreasury Intelligence SolutionsFRANCISCAN HEALTH - BLOOD ORDERABLES Performing Organization Address [facility]/ZIP Co de Phone Number [facility] [address] [place] [address] [facility][note 3] [address] [place] [address] * Hepatitis B Surface Antigen (06/15/2023 4:06 PM TUBE PUSHER) Pathologist [facility] HBs Antigen, S Negative Negative 06/15/2023 10:03 PM TUBE PUSHER [facility] Blood (Blood, Venous) 06/15/2023 4:06 PM TUBE PUSHER 06/15/2023 8:15 PM TUBE PUSHER Sera Hyman M.D., Ph.D. LAB [facility]ITALTreasury Intelligence SolutionsOTHELLO COMMUN[facility] BLOOD ORDERABLES [facility] [address] [place] [address] [facility][note 3] [address] [place] [address] * (ABNORMAL) Basic Metabolic Panel (06/15/2023 4:06 PM TUBE PUSHER) Potassium, S 5.6(H) 3.6 - 5.2 mmol/L 06/15/2023 4:59 PM TUBE PUSHER DTL Sodium, S 142 135 - 145 mmol/L 06/15/2023 4:59 PM TUBE PUSHER DTL Chloride, S 105 98 - 107 mmol/L 06/15/2023 4:59 PM TUBE PUSHER DTL Bicarbonate, S 23 22 - 29 mmol/L 06/15/2023 4:59 PM TUBE PUSHER DTL Anion Gap 14 7 - 15 06/15/2023 4:59 PM TUBE PUSHER DTL BUN (Blood Urea Nitrogen), S 68(H) 8 - 24 mg/dL 06/15/2023 4:59 PM TUBE PUSHER DTL Creatinine 4.61(H) 0.74 - 1.35 mg/dL 06/15/2023 4:59 PM TUBE PUSHER DTL Estimated GFR (eGFR) <15(L) >=60 mL/min/BSA 06/15/2023 4:59 PM TUBE PUSHER DTL Comment: Estimated GFR calculated using the 2020 CKD_EPI creatinine equation. Calcium, Total, S 8.8 8.8 - 10.2 mg/dL 06/15/2023 4:59 PM TUBE PUSHER DTL Glucose, S 130 70 - 140 mg/dL 06/15/2023 4:59 PM TUBE PUSHER DTL Blood (Blood, Venous) 06/15/2023 4:06 PM TUBE PUSHER 06/15/2023 4:42 PM TUBE PUSHER Sera Hyman M.D., Ph.D. LAB BL OOD ADD-ON Performing Organization Address City/[facility]/ZIP Co de Phone Number [facility] [address] [place] [address], [facility] DTV[facility] [address] [place] [address] * Optical Coherence Tomography - Macula/Retina - OU - Both Eyes (06/15/2023 2:26 PM TUBE PUSHER) Narrative OPHTHALMOLOGY IMAGING EXAM - 06/15/2023 3:45 PM TUBE PUSHER Right Eye Reliability was good. OCT device used was Spectralis . Left Eye It was a technically difficult scan. OCT device used was Spectralis . Notes FREDY/JH See interpretation in note section Justin Bunch M.D. OPHTH TOMOGRAPHY OPHTHALMOLOGY IMAGING EXAM * Eyes Spectralis OCT-Ophthalmology Image Exam (06/15/2023 12:00 AM TUBE PUSHER) Narrative IIMS - 06/15/2023 2:28 PM TUBE PUSHER This order has been created and auto-finalized to support the import of images acquired without order. The clinical documentation to support these images can be found on the encounter that produced images. Provider Not In System IMG NON RAD IMAGI NG PROCEDURES Performing Organization Address [facility] Co de Phone Number [facility] NA * Folate (06/12/2023 10:53 AM TUBE PUSHER) Folate, S 12.6 >=4.0 mcg/L 06/13/2023 2:09 AM TUBE PUSHER ECLR Comment: Biotin has been identified by the physical director as a potential interfering substance. Higher concentrations of biotin may be found in multivitamins, hair/nail supplements, and workout supplements. If the result does not match clinical observations, repeat testing after patient refrains from the use of supplements for at least 12 hours. Blood (Blood, Venous) 06/12/2023 10:53 AM TUBE PUSHER 06/12/2023 9:30 PM TUBE PUSHER Mónica Portillo APRN, C.N.P., M.S. LAB BLOOD ADD-ON Performing Organization Address [facility] de Phone Number [facility] [address] [place] [address], [facility] ECLR [facility] [place] [address] * (ABNORMAL) Vitamin B12 Assay (06/12/2023 10:53 AM TUBE PUSHER) Vitamin B12 Assay, S 1249(H) 232 - 1245 ng/L 06/13/2023 2:09 AM TUBE PUSHER ECLR Comment: Biotin has been identified by the physical director as a potential interfering substance. Higher concentrations of biotin may be found in multivitamins, hair/nail supplements, and workout supplements. If the result does not match clinical observations, repeat testing after patient refrains from the use of supplements for at least 12 hours. Blood (Blood, Venous) 06/12/2023 10:53 AM TUBE PUSHER 06/12/2023 9:30 PM TUBE PUSHER Mónica Portillo APRN, C.N.P., M.S. LAB BLOOD ADD-ON [facility] [address] [place] [address], [facility] ECLR [facility] in [address] [address] * URO Uroflow (05/29/2023 1:00 PM TUBE PUSHER) Narrative Burke Hanna M.D. - 05/29/2023 1:00 PM TUBE PUSHER Burke Hanna M.D. ? 05/29/2023 ??4:49 PM Reason for visit: UROFLOW The patient is here for a complex uroflow via calibrated electronic equipment and residual urine checked by ultrasound. Indications: ??Incomplete bladder emptying Peak flow: ??16 ml/sec Average flow: ??8.6 ml/sec Voiding time: ??24.3 sec Total voided volume: ??208 mls Continuous (smooth) flow pattern Residual urine: ??45 ml by ultrasound Impression: Normal variant uroflow. Mónica Portillo APRN, C.N.P., M.S. UROL OGY ORDERABLES * US Kidneys Bilateral with Bladder (05/29/2023 10:33 AM TUBE PUSHER) Anatomical Region Laterality Modality Abdomen, Renal, Ultrasound R ST LOS, Ultrasound ARZ LOS, Ultrasound FLA LOS Bilateral Ultrasound Impressions 05/29/2023 11:37 AM TUBE PUSHER 1. Slightly thinned and hyperechoic appearance of the kidneys suggestive of chronic medical renal disease. No hydronephrosis. 2. The previously seen solid appearing lesion in the upper pole left kidney measuring up to 1.8 cm is not identified sonographically. This is likely due to the small size and location of the lesion. If clinically indicated, this can be better assessed with dedicated CT or MR. Narrative 05/29/2023 11:37 AM TUBE PUSHER EXAM: US KIDNEYS BILATERAL WITH BLADDER COMPARISON: US Kidney 01/15/2021, CT abdomen/pelvis 02/07/2019 FINDINGS: Right kidney: 12.3 cm. Cortical thickness: Mildly thinned. Parenchymal echogenicity: Slightly hyperechoic Collecting system: No hydronephrosis. Masses: There are several cysts in the right kidney. The largest of which measures up to 3.3 cm. Additional smaller cysts measuring up to 1.5 cm likely contains layering echogenic debris. Left kidney: 11.7 cm. Cortical thickness: Mildly thinned Parenchymal echogenicity: Slightly hyperechoic Collecting system: No hydronephrosis. Masses: Due to the small size and location, the previously seen solid appearing lesion in the upper pole left kidney measuring up to 1.[address] 02/07/2019 is not identified sonographically. Bladder: Normal. Procedure Note Da Noel M.D. - 05/29/2023 EXAM: US KIDNEYS BILATERAL WITH BLADDER COMPARISON: US Kidney 01/15/2021, CT abdomen/pelvis 02/07/2019 FINDINGS: Right kidney: 12.3 cm. Cortical thickness: Mildly thinned. Parenchymal echogenicity: Slightly hyperechoic Collecting system: No hydronephrosis. Masses: There are several cysts in the right kidney. The largest of whichmeasures up to 3.3 cm. Additional smaller cysts measuring up to 1.5 cmlikely contains layering echogenic debris. Left kidney: 11.7 cm. Cortical thickness: Mildly thinned Parenchymal echogenicity: Slightly hyperechoic Collecting system: No hydronephrosis. Masses: Due to the small size and location, the previously seen solidappearing lesion in the upper pole left kidney measuring up to 1.8 cm onCT 02/07/2019 is not identified sonographically. Bladder: Normal. IMPRESSION: 1. Slightly thinned and hyperechoic appearance of the kidneys suggestiveof chronic medical renal disease. No hydronephrosis. 2. The previously seen solid appearing lesion in the upper pole leftkidney measuring up to 1.8 cm is not identified sonographically. This islikely due to the small size and location of the lesion. If clinicallyindicated, this can be better assessed with dedicated CT or MR. Mónica Portillo APRN, C.N.P., M.S. IMG US PROCEDURES * (ABNORMAL) Hemoglobin A1c (03/30/2023 12:21 PM TUBE PUSHER) Hemoglobin A1c, B 6.8(H) 4.2 - 5.6 % 03/30/2023 12:36 PM TUBE PUSHER CNFL Comment: Hemoglobin A1c values greater than or equal to 6.5 percent are diagnostic for diabetes mellitus. ??Diagnosis should be confirmed by repeat testing. ??In diabetic patients, HbA1c goals should be discussed with healthcare provider. Blood (Blood, Venous) 03/30/2023 12:21 PM TUBE PUSHER 03/30/2023 12:23 PM TUBE PUSHER Mónica Portillo APRN, C.N.P., M.S. LAB BLOOD ADD-ON Performing Organization Address City/State/[facility] Co de Phone Number [facility] [address] [place] [address], [facility] CNFL [facility] in [address] [address] * US Aorta AAA Screening (07/22/2017 7:39 AM CDT) Anatomical Region Laterality Modality Abdomen, Pelvis N/A Ultrasound 07/22/2017 7:45 AM CDT Impressions 07/22/2017 7:47 AM CDT IMPRESSION: Significantly limited exam as detailed above as the proximal and mid abdominal aorta could not be visualized. Distal abdominal aorta and visualized common iliac arteries are nonaneurysmal. Narrative 07/22/2017 7:47 AM CDT EXAM: US AORTA AAA SCREENING COMPARISON: None. TECHNIQUE: Real-time imaging, spectral, and color flow doppler was performed in transverse and longitudinal planes utilizing high resolution transducer. FINDINGS: Despite multiple attempts, the proximal and mid abdominal aorta could not be visualized due to patient body habitus and obscuration. By report, patient was only able to lie in the left lateral decubitus position secondary to vertigo symptoms. Distal abdominal aorta is normal in caliber measuring 2.0 x 2.3 cm. Peak systolic velocity distal abdominal aorta is 84 cm/s. Iliac Artery measurements Right common iliac: 1.3 x 0.9 cm Left common iliac: 1.1 x 1.0 cm Procedure Note Dev Coats M.D. - 07/22/2017 EXAM: US AORTA AAA SCREENING COMPARISON: None. TECHNIQUE: Real-time imaging, spectral, and color flow doppler wasperformed in transverse and longitudinal planes utilizing high resolution transducer. FINDINGS: Despite multiple attempts, the proximal and mid abdominal aorta could notbe visualized due to patient body habitus and obscuration. By report, patientwas only able to lie in the left lateral decubitus position secondary tovertigo symptoms. Distal abdominal aorta is normal in caliber measuring 2.0 x 2.3 cm. Peak systolic velocity distal abdominal aorta is 84 cm/s. Iliac Artery measurements Right common iliac: 1.3 x 0.9 cm Left common iliac: 1.1 x 1.0 cm IMPRESSION: Significantly limited exam as detailed above as the proximaland mid abdominal aorta could not be visualized. Distal abdominal aorta andvisualized common iliac arteries are nonaneurysmal. Clover Delaney M.D. 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 Advance Directives 12/22/2017 11:40 AM a [facility] Care Directive * Full Code (Latest Code Status on File) Date Activated Date Inactivated Comments 03/03/2022 7:19 AM 03/03/2022 1:38 PM Question Answer Comments Full Code: Not Discussed Due to: Not medically appropriate * Full Code Date Activated Date Inactivated Comments 01/29/2018 9:20 PM 02/02/2018 5:38 PM Question Answer Comments Full Code: Discussed * Full Code Date Activated Date Inactivated Comments 01/18/2018 12:19 AM 01/26/2018 6:38 PM Question Answer Comments Full Code: Not Discussed Due to: Patient not available * Full Code Date Activated Date Inactivated Comments 12/08/2017 4:40 PM 12/08/2017 6:46 PM Question Answer Comments Full Code: Discussed * Full Code Date Activated Date Inactivated Comments 12/08/2017 12:53 PM 12/08/2017 4:40 PM Question Answer Comments Full Code: Discussed Healthcare Agents on File Name Relationship Healthcare Agent [facility] Communication Sayra Elkesabinemanfred Spouse Health Care Agent Kathie Silveira Daughter First Alternate Health Care Agent Monica Boggs Daughter First Alternate Health Care Agent Care Teams [employer] Technician Relationship Specialty Start Date End Date Clover Delaney M.D. [address] [place] [address] PCP - General Internal Medicine 11/23/17
--- OUTSIDE RECORDS SUMMARY | 2023-08-16 13:56 | XMS_ITS ---
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 Procedure Estimated Blood Loss Check Surgery Details section. Procedure Findings Check Surgery Details section. Procedure Specimens Taken Check Surgery Details section.
--- OUTSIDE RECORDS SUMMARY | 2023-08-16 13:56 | XMS_ITS | Encounter Summary ---
Author Name Unknown Organization [facility] Address [address] [place] [address] Care Team Providers Care Pet Caretaker Name Role Phone Clover Delaney M.D. Primary Care Provider [phone]- [phone] Reason for Referral * Outpatient (Routine) - Closed Specialty Diagnoses / Procedures Referred By Contac t Referred To Contact Nephrology and Hypertension / Dialysis Diagnoses Chronic Kidney Disease Stage 5 Glomerular Filtration Rate Less Than 15 (HCC) Sera Casiano M.D., Ph.D. [address] [place] [phone] [facility] Referral ID Status Reason Start Date Expiration Date Visits Re quested Visits Authorized [id number] Closed 06/26/2023 12/25/2024 1 1 Reason for Visit * Outpatient (Routine) - Closed Specialty Diagnoses / Procedures Referred By Contanthony t Referred To Contact Nephrology and Hypertension / Dialysis Diagnoses Chronic Kidney Disease Stage 5 Glomerular Filtration Rate Less Than 15 (HCC) Sera Casiano M.D., Ph.D. [address] [place] [phone] [facility] Referral ID Status Reason Start Date Expiration Date Visits Re quested Visits Authorized [id number] Closed 06/26/2023 12/25/2024 1 1 Encounter Details Date Type Department Care Team (Latest Contact Info) Description 07/29/2023 2:40 PM CDT - 07/29/2023 11:59 PM CDT Hospital Encounter Division of Nephrology and Hypertension, [facility], in [place], [place] [address] [place] [address] Sera Casiano M.D., Ph.D. [address] [place] [phone] Sandeep Kuo M.D., Ph.D. [address] [place] [phone] Chronic Kidney Disease Stage 5 Glomerular Filtration Rate Less Than 15 (HCC) Discharge Disposition: Home or Self Care Social History Tobacco Use Types Packs/Day Years Used Date Smoking Tobacco: Former Cigarettes 0 1961 - 12/26/1980 Passive Smoke Exposure: Never Smokeless Tobacco: Never Alcohol Use Standard Drinks/Week [...] week 07/28/2022 How often do you attend [facility] or confucianism services? Never 07/28/2022 Do [...] Answer Date Recorded PHQ-2 Score 2 05/28/2023 [facility] - [...] Sex Assigned at Male 05/13/2021 10:11 AM FOREMAN/PILE DRIVING AND ERECTION Gender Identity Male 11/02/2017 7:22 PM CDT Sexual Orientation Straight 11/02/2017 7: 22 PM CDT documented as of this encounter Medications at Time of Discharge Medication Sig Dispensed Refills Start Date End Date aspirin 81 mg chewable tablet Chew 1 tablet (81 mg total) daily. 90 tablet 3 01/06/2020 atorvastatin (LIPITOR) 40 mg tabletIndications:Morbid Obesity (HCC) Take 1 tablet (40 mg total) by mouth daily. 90 tablet 3 06/29/2023 BD Ultra-Fine Josefina Pen Needle 32 gauge x 5/32 needle USE TO INJECT ONCE DAILY 100 each 3 05/08/2023 carvediloL (COREG) 12.5 mg tablet TAKE ONE TABLET BY MOUTH TWICE A DAY WITH MEALS 180 tablet 3 09/03/2022 cholecalciferol (VITAMIN D3) 50 mcg (2,000 Unit) tablet Take 50 mcg by mouth daily. cyanocobalamin (VITAMIN B12) 1,000 mcg tablet Take 1,000 mcg by mouth daily. DME CPAPIndications:Obstruct ysabel Sleep Apnea Adult DME Order 1 each 08/27/2021 doxazosin (CARDURA) 4 mg tablet Take 1 tablet (4 mg total) by mouth daily. 90 tablet 3 06/26/2023 06/25/2024 FLUoxetine (PROzac) 10 mg capsule Take 1 capsule (10 mg total) by mouth daily. 90 capsule 1 06/05/2023 irbesartan (AVAPRO) 75 mg tablet Take 1 tablet (75 mg total) by mouth daily. 90 tablet 3 07/13/2023 iron,carbonyl-vitamin C (VITRON-C) 65 mg iron- [address] tablet Take 65 mg of iron by mouth daily. Do not crush or chew. loperamide (IMODIUM A-D) 2 mg tablet Take 2 mg by mouth as needed. miscellaneous medical supply [facility] CPAP Supplies See Instructions, CPAP machine, mask 1 ea x 4 refills, headgear 1 ea x 2 refills, tubing 1 ea x 4 refills, filters 2 ea per month, tub 1 ea x 2 refills, mask seal 1 ea x 2 refills DX G47.33, length of need 99, 1 each, 0 Refill(s) 10/20/2016 miscellaneous medical supply [facility] Head Gear for CPAP Machine See Instructions, fax to patient at [phone], 1 each 01/17/2014 MULTIVITAMIN ORAL Daily Multiple Vitamins See Instructions, Take 1 tablet by mouth daily. 07/23/2013 ONETOUCH DELICA LANCETS 33 gauge [facility] 3 08/02/2018 OneTouch Ultra Test StripsIndications:Diabet es Mellitus Type 2 (HCC) Use to test once daily. 100 strip 3 06/03/2023 prednisoLONE acetate (PRED FORTE) 1 % ophthalmic suspension Instill 1 drop in left eye once daily 5 mL 11/06/2022 prednisoLONE acetate (PRED FORTE) 1 % ophthalmic suspension place 1 drop into the left eye once daily. 5 mL 11/06/2022 prednisoLONE acetate (PRED FORTE) 1 % ophthalmic suspension place 1 drop into the left eye once daily. 5 mL 02/05/2023 predniSONE (DELTASONE) 5 mg tablet TAKE [...] times a day. 180 tablet 3 04/07/2023 tirzepatide (Mounjaro) 10 mg/0.5 mL pen injector injectionIndications:Mor bid Obesity (HCC) Inject 0.5 mL (10 mg total) under the skin every 7 (seven) days. 6 mL 3 09/03/2023 09/02/2024 tirzepatide (Mounjaro) 5 mg/0.5 mL pen injector injectionIndications:Mor bid Obesity (HCC) Inject 0.5 mL (5 mg total) under the skin every 7 (seven) days for 4 doses. 2 mL 07/21/2023 tirzepatide (Mounjaro) 7.5 mg/0.5 mL pen injector injectionIndications:Mor bid Obesity (HCC) Inject 0.5 mL (7.5 mg total) under the skin every 7 (seven) days for 4 doses. 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 180 tablet 3 07/17/2023 08/05/2023 torsemide (DEMADEX) 20 mg tablet Take 2 tablets (40 mg total) by mouth daily. 180 tablet 3 06/26/2023 08/05/2023 documented as of this encounter Consult Notes * Sandeep Kuo M.D., Ph.D. - 07/29/2023 2:40 PM CDT Patient is a 77-year-old male with chronic progressive renal failure here for hemodialysis access evaluation. Patient underwent ultrasound mapping earlier today and I also examined his arms using theSonoSite ultrasound here in the clinic. Appears that his best option for primary AV fistula is on the right side using the right brachial artery and right cephalic vein. 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 Patient understands this possibility of a second-stage procedure. Consent was obtained today in clinic for surgery as an outpatient under MAC anesthesia here at [facility] on Sep 03 2023. All questions were answered and consent was obtained here from the patient in the presence of his . documented in this encounter Plan of Treatment Upcoming Encounters Date Type Department Care Team (Latest Contact Info) Description 08/19/2023 3:00 PM CDT Clinical Communication Virtual Review in [address] [phone] 08/21/2023 1:30 PM CDT Comprehensive Visit Division of Pulmonary Medicine in [address] [phone] Gallito Crabtree M.D. [address] [place] [phone] 09/08/2023 10:00 AM CDT Appointment Department of Laboratory Medicine in [place] [address] [place] [phone] Sera Casiano M.D., Ph.D. [address] [place] [phone] 09/08/2023 10:10 AM CDT Appointment Department of Laboratory Medicine in [place] [address] [place] [address] Sera Casiano M.D., Ph.D. [address] [place] [phone] 09/28/2023 8:15 AM CDT Hospital Encounter Outpatient Surgery Unit in [place], [place] [address] [place] [address] Sandeep Kuo M.D., Ph.D. [address] [place] [address] 09/28/2023 8:15 AM CDT - 09/28/2023 11:06 AM CDT Surgery [facility] [address] [place] [address] Sandeep Kuo M.D., Ph.D. [address] [place] [address] CREATION FISTULA BRACHIOCEPHALIC ARTERIOVENOUS Scheduled Procedures Name Priority Associated Diagnoses Date/Ti me CREATION 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) 09/28/2023 8:15 AM CDT Scheduled Referrals Name Type Priority Associated Diagnoses Order Schedule Dialysis - Hemodialysis access consult (clinic) Outpatient Referral Routine Chronic Kidney Disease Stage 5 Glomerular Filtration Rate Less Than 15 (HCC) Once for 1 Occurrences starting 07/29/2023 until 07/29/2023 documented as of this encounter Visit Diagnoses Diagnosis Chronic Kidney Disease Stage 5 Glomerular Filtration Rate Less Than 15 (HCC) Failure Renal End Stage (HCC)- Primary Failure Renal End Stage (HCC) documented in this encounter Additional Health Concerns Assessment Noted Time PHQ-9 Depression Total Score: 4 06/06/19 23 2:04 PM FOREMAN/PILE DRIVING AND ERECTION documented as of this encounter Care Teams Pet Caretaker Relationship Specialty Start Date End Date Clover Delaney M.D. [address] [place] [address] PCP - General Internal Medicine 11/23/17 documented as of this encounter
--- OUTSIDE RECORDS SUMMARY | 2023-08-16 13:56 | XMS_ITS | Encounter Summary ---
Author Name Unknown Organization [facility] Address [address] [place] [address] Care Team Providers Care Support Services Specialist Name Role Phone Clover Delaney M.D. Primary Care Provider [phone]- [phone] Encounter Details Date Type Department Care Team (Latest Contact Info) Description 07/29/2023 9:49 AM CDT - 07/29/2023 10:51 AM CDT Hospital Encounter Department of Laboratory Medicine and Pathology, [facility], in [place], [place] [address] [place] [phone] Sera Casiano M.D., Ph.D. 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 miscellaneous medical supply [facility] CPAP Supplies See Instructions, CPAP machine, mask 1 ea x 4 refills, headgear 1 ea x 2 refills, tubing 1 ea x 4 refills, filters 2 ea per month, tub 1 ea x 2 refills, mask seal 1 ea x 2 refills DX G47.33, length of need 99, 1 each, 0 Refill(s) 10/20/2016 miscellaneous medical supply [facility] Head Gear for CPAP Machine See Instructions, fax to patient at [phone], 1 each 01/17/2014 MULTIVITAMIN ORAL Daily Multiple Vitamins See Instructions, Take 1 tablet by mouth daily. 07/23/2013 ONETOUCH DELICA LANCETS 33 gauge misc 3 08/02/2018 OneTouch Ultra Test StripsIndications:Diabet es [...] 06/26/2023 08/05/2023 documented as of this encounter Plan of Treatment Upcoming Encounters Date Type Department Care Team (Latest Contact Info) Description 08/19/2023 3:00 PM CDT Clinical Communication Virtual Review in [place], [place] 200 [place] [address] 08/21/2023 1:30 PM CDT Comprehensive Visit Division of Pulmonary Medicine in [place], [place] [address] [place] [phone] Gallito Crabtree M.D. [address] [place] [phone] 09/08/2023 10:00 AM CDT Appointment Department of Laboratory Medicine in [place] [address] [place] [address] Sera Casiano M.D., Ph.D. [address] [place] [phone] 09/08/2023 10:10 AM CDT Appointment Department of Laboratory Medicine in [place] [address] [place] [phone] Sera Casiano M.D., Ph.D. [address] [place] [phone] 09/28/2023 8:15 AM CDT Hospital Encounter Outpatient Surgery Unit in [place], [place] [address] [place] [phone] Sandeep Kuo M.D., Ph.D. [address] [place] [phone] 09/28/2023 8:15 AM CDT - 09/28/2023 11:06 AM CDT Surgery [facility] [address] [place] [phone] Sandeep Kuo M.D., Ph.D. 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 LAB BL OOD ADD-ON Performing Organization Address City/[facility]/ZIP Co de Phone Number [facility] 200 [place] [address], [facility] [address] [place] [address] * Phosphorus Inorganic (07/29/2023 10:17 AM CDT) Phosphorus (Inorganic), S 4.5 2.5 - 4.5 mg/dL 07/29/2023 12:32 PM CDT DTL Blood (Blood, Venous) 07/29/2023 10:17 AM CDT 07/29/2023 10:55 AM CDT Sera Hyman M.D., Ph.D. LAB BL OOD ADD-ON Performing Organization Address [facility] Co de Phone Number [facility] [address] [place] [address], [facility] [address] [place] [address] * (ABNORMAL) Glucose, Fasting (07/29/2023 10:17 AM CDT) Glucose, P 256(H) 70 - 100 mg/dL 07/29/2023 11:15 AM CDT DTL Last Intake 16 hr 07/29/2023 10:52 AM CDT DTL Blood (Blood, Venous) 07/29/2023 10:17 AM CDT 07/29/2023 10:52 AM CDT Sera Hyman M.D., Ph.D. LAB BL OOD NON ADD-ON Performing Organization Address City/[facility]/ZIP Co de Phone Number [facility] [address] [place] [address], [facility] [address] [place] [address] * CRP (C-Reactive Protein) (07/29/2023 10:17 AM CDT) [facility] C-Reactive Protein (CRP), S <3.0 <5.0 mg/L 07/29/2023 12:32 PM CDT DTL Blood (Blood, Venous) 07/29/2023 10:17 AM CDT 07/29/2023 10:55 AM CDT Sera Hyman M.D., Ph.D. LAB BL OOD ADD-ON [facility] [address] [place] [address], [facility] [address] [place] [address] * (ABNORMAL) Comprehensive Metabolic Panel (07/29/2023 10:17 AM CDT) [facility] Potassium, S 4.2 3.6 - 5.2 mmol/L [...] Hyman M.D., Ph.D. LAB BL OOD ADD-ON [facility] [address] [place] [address], [facility] [address] [place] [address] * (ABNORMAL) CBC with Differential, Blood (07/29/2023 10:17 AM CDT) Hemoglobin 8.2(L) 13.2 - 16.6 g/dL 07/29/2023 [...] - 6.45 x10(9)/L 07/29/2023 11:03 AM CDT DHPM Lymphocytes 0.49(L) 0.95 - 3.07 x10(9)/L 07/29/2023 11:03 AM CDT DTL Monocytes 0.54 0.26 - 0.81 x10(9)/L 07/29/2023 11:03 AM CDT DTL Eosinophils 0.12 0.03 - 0.48 x10(9)/L 07/29/2023 11:03 AM CDT DTL Basophils <0.03 0.01 - 0.08 x10(9)/L 07/29/2023 11:03 AM CDT DTL Blood (Blood, Venous) 07/29/2023 10:17 AM CDT 07/29/2023 10:45 AM CDT Sera Hyman M.D., Ph.D. LAB BL OOD ADD-ON [facility] [address] [place] [address], [facility] DTL [facility] [address] [place] [address] DHPM [facility] [address] [place] [address] * ANCA (Antineutrophil Cytoplasmic Antibodies) Vasculitis Panel (07/29/2023 10:17 AM CDT) Myeloperoxidase Ab, S <0.2 <0.4 (Negative ) U 07/29/2023 4:45 PM CDT [facility]SC Proteinase 3 Ab (PR3), S <0.2 <0.4 (Negative ) U 07/29/2023 4:45 PM CDT [facility] Blood (Blood, Venous) 07/29/2023 10:17 AM CDT 07/29/2023 2:52 PM CDT Sera Hyman M.D., Ph.D. LAB BL OOD ADD-ON [facility] [address] [place] [address] [facility] [address] 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 [address] [place] [address] PCP - General Internal Medicine 11/23/17 documented as of this encounter
--- OUTSIDE RECORDS SUMMARY | 2023-08-16 13:56 | XMS_ITS | Encounter Summary ---
Author Name Unknown Organization [facility] Address [address] [place] [address] Care Team Providers Care Inbound Telemarketer Name Role Phone Clover Delaney M.D. 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 [address] [place] [phone] [facility] Referral ID Status Reason Start Date Expiration Date Visits Re quested Visits Authorized [id number] Closed 06/30/2023 06/29/2024 1 1 Encounter Details Date Type Department Care Team (Latest Contact Info) Description 07/29/2023 10:52 AM CDT - 07/29/2023 12:12 PM CDT Hospital Encounter Department of Radiology, [facility], in [place], [place] [address] [place] [address] Sera Casiano M.D., Ph.D. 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 miscellaneous medical supply [facility] CPAP Supplies See Instructions, CPAP machine, mask 1 ea x 4 refills, headgear 1 ea x 2 refills, tubing 1 ea x 4 refills, filters 2 ea per month, tub 1 ea x 2 refills, mask seal 1 ea x 2 refills DX G47.33, length of need 99, 1 each, 0 Refill(s) 10/20/2016 miscellaneous medical supply [facility] Head Gear for CPAP Machine See Instructions, fax to patient at [phone], 1 each 01/17/2014 MULTIVITAMIN ORAL Daily Multiple Vitamins See Instructions, Take 1 tablet by mouth daily. 07/23/2013 ONETOUCH DELICA LANCETS 33 gauge [facility] 3 08/02/2018 OneTouch Ultra Test StripsIndications:Diabet es [...] PM CDT Clinical Communication Virtual Review in [place], [place] 200 [place] [phone] 08/21/2023 1:30 PM CDT Comprehensive Visit Division of Pulmonary Medicine in [place], [place] [address] [place] [phone] Gallito Crabtree M.D. [address] [place] [phone] 09/08/2023 10:00 AM CDT Appointment Department of Laboratory Medicine in [place], [place] [address] [place] [address] Sera Casiano M.D., Ph.D. [address] [place] [phone] 09/08/2023 10:10 AM CDT Appointment Department of Laboratory Medicine in [place], [place] [address] [place] [address] Sera Casiano M.D., Ph.D. [address] [place] [phone] 09/28/2023 8:15 AM CDT Hospital Encounter Outpatient Surgery Unit in [place], [place] [address] [place] [phone] Sandeep Kuo M.D., Ph.D. [address] [place] [phone] 09/28/2023 8:15 AM CDT - 09/28/2023 11:06 AM CDT Surgery [facility] [address] [place] [address] Sandeep Kuo M.D., Ph.D. 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 Hypertrophic changes in the spine. Mild degenerative changes bothshoulders. IMPRESSION: 1. Stable nodule in the right middle lobe should be benign. 2. New increased attenuation in a left renal cyst likely due to intervalhemorrhage. Sera Hyman M.D., Ph.D. 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 [address] [place] [phone] PCP - General Internal Medicine 11/23/17 documented as of this encounter
--- OUTSIDE RECORDS SUMMARY | 2023-08-16 13:56 | XMS_ITS | Encounter Summary ---
Author Name Unknown Organization [facility] Address [address] [place] [address] Care Team Providers Care Local Coordinator Name Role Phone Clover Delaney M.D. Primary Care Provider [phone] Reason for Visit * Reason Onset Date Comments Bradycardia 08/16/2023 Weakness - Generalized 08/16/2023 Encounter Details Date Type Department Care Team (Late st Contact Info) Description 08/16/2023 Nurse Triage Department of Community Internal Medicine in [address] [place] [phone] Philomena Raya, R.N. Bradycardia; Weakness - Generalized Social History Tobacco Use Types Packs/Day Years [...] any clubs o r organizations such as quaker groups, unions, fraternal or athletic groups, or [...] Answer Date Recorded PHQ-2 Score 2 05/28/2023 [facility] - [...] Sex Assigned at Male 05/13/2021 10:11 AM HITCHER Gender Identity Male 11/02/2017 7:22 PM CDT Sexual Orientation Straight 11/02/2017 7: 22 PM CDT documented as of this encounter Miscellaneous Notes * Telephone Encounter - Philomena Raya R.N. - 08/16/2023 12:40 PM CDT Chief Complaint / Reason for Call Patient is a 77 y.o. male calling regarding Bradycardia and Weakness - Generalized. Assessment Concern: He is in kidney failure, his clonidine was increased from 0.1 mg to 0.2 mg 11 days ago, his pulse is 45-47 for 4 the last hours, and he feels weak. His pulse is normally 50-55. States his legs feel like rubber. Present for: 4 hours Home cares tried: nothing Calling to request: advice The recommended disposition is Call EMS 911 Now. Declines calling [address] him to the nearest ED. Reason for Disposition [1] Dizziness, lightheadedness, or weakness AND [2] heart beating very slowly (e.g., < 50 / minute) Protocols used: Heart Rate and Heartbeat [id number] Care Advice Patient/Caregiver understands and will follow care advice?: Yes, able to teach back Heart Rate and Heartbeat [id number] Philomena Raya R.N. Sun Aug 16, 2023 12:46 PM Care Advice CALL EMS 911 NOW: documented in this encounter Plan of Treatment Upcoming Encounters Date Type Department Care Team (Latest Contact Info) Description 08/19/2023 3:00 PM CDT Clinical Communication Virtual Review in [place], [place] [address] [place] [phone] 08/21/2023 1:30 PM CDT Comprehensive Visit Division of Pulmonary Medicine in [place], [place] [address] [place] [phone] Gallito Crabtree M.D. [address] [place] [phone] 09/08/2023 10:00 AM CDT Appointment Department of Laboratory Medicine in [address] [place] [phone] Sera Casiano M.D., Ph.D. [address] [place] [phone] 09/08/2023 10:10 AM CDT Appointment Department of Laboratory Medicine in [place], [place] [address] [place] [phone] Sera Casiano M.D., Ph.D. [address] [place] [phone] 09/28/2023 8:15 AM CDT Hospital Encounter Outpatient Surgery Unit in [place], [place] [address] [place] [phone] Sandeep Kuo M.D., Ph.D. [address] [place] [phone] 09/28/2023 8:15 AM CDT - 09/28/2023 11:06 AM CDT Surgery [facility] [address] [place] [phone] Sandeep Kuo M.D., Ph.D. [address] [place] [phone] CREATION FISTULA BRACHIOCEPHALIC ARTERIOVENOUS Scheduled Procedures Name Priority Associated Diagnoses Date/Ti me CREATION 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) 09/28/2023 8:15 AM CDT documented as of this encounter Visit Diagnoses Not on filedocumented in this encounter Additional Health Concerns Assessment Noted Time PHQ-9 Depression Total Score: 4 06/06/19 23 2:04 PM HITCHER documented as of this encounter Care Teams Local Coordinator Relationship Specialty Start Date End Date Clover Delaney M.D. [address] [place] [phone] PCP - General Internal Medicine 11/23/17 documented as of this encounter
--- OUTSIDE RECORDS SUMMARY | 2023-08-16 13:56 | XMS_ITS | Referral Summary ---
Author Name Unknown Organization [facility] Address [address] [place] [address] Care Team Providers Care Medical Equipment Technician Name Role Phone Clover Delaney M.D. Primary Care Provider [phone] Source Comments Patient records contain information from all sites at [facility]. For routine questions regarding patient records, call [phone] during business hours, M-F 8:00 AM - 5:00 PM Central Time. Record requests for emergency care only can be directed to [phone] at any time.[facility] Encounters Date Type Department Care Team Description 08/16/2023 Nurse Triage Department of Community Internal Medicine in [place], [place] [address] [place] [address] [place] [address] Philomena Raya R.N. Bradycardia; Weakness - Generalized 08/10/2023 Clinical Communication Division of Nephrology and Hypertension in [place], [place] [address] [place] [address] Kanwal Roberts R.N. 08/05/2023 4:00 PM CDT External Outreach Division of Nephrology and Hypertension in [place], [place] [address] [place] [address] Sera Casiano M.D., Ph.D. Chronic Kidney Disease Stage 5 Glomerular Filtration Rate Less Than 15 (HCC) (Primary Dx); Preoperative Exam; Hypertension And Chronic Kidney Disease Stage 5 (HCC) 07/29/2023 Documentation Division of Nephrology and Hypertension in [place], [place] [address] [place] [phone] Kanwal Roberts R.N. 07/29/2023 9:49 AM CDT - 07/29/2023 10:51 AM CDT Hospital Encounter Department of Laboratory Medicine and Pathology, [place], [place] [address] [place] [phone] Sera Casiano M.D., Ph.D. 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 Sandeep Kuo M.D., Ph.D. Chronic Kidney Disease Stage 5 Glomerular Filtration Rate Less Than 15 (HCC) Discharge Disposition: Home or Self Care 07/29/2023 12:13 PM CDT - 07/29/2023 2:39 PM CDT Hospital Encounter Department of Radiology, [facility] in [place], [place] [address] [place] [phone] Sera Casiano M.D., Ph.D. Chronic Kidney Disease Stage 5 Glomerular Filtration Rate Less Than 15 (HCC) Discharge Disposition: Home or Self Care 07/23/2023 Clinical Communication Division of Nephrology and Hypertension in [place], [place] [address] [place] [address] Monica Ferreira R.N., C.M.S.R.N. 07/17/2023 Orders Only Division of Nephrology and Hypertension in [place], [place] [address] [place] [address] Sera Casiano M.D., Ph.D. 07/17/2023 1:00 PM CDT Virtual Visit Division of Nephrology and Hypertension in [place], [place] [address] [place] [address] Sera Casiano M.D., Ph.D. Kanwal Roberts, R.N. Chronic Kidney Disease Stage 5 Glomerular Filtration Rate Less Than 15 (HCC) (Primary Dx) 07/11/2023 Refill Division of Nephrology and Hypertension in [place], [place] [address] [place] [address] Mnóica Portillo APRN, C.N.P., M.S. Med Refill 07/10/2023 1:00 PM CDT Comprehensive Visit Division of Nephrology and Hypertension in [place], [place] [address] [place] [address] Sera Casiano M.D., Ph.D. Elana Almonte, JANINAN, LD Chronic Kidney Disease Stage 5 Glomerular Filtration Rate Less Than 15 (HCC) 07/10/2023 2:30 PM CDT Nurse Only Division of Nephrology and Hypertension in [place], [place] [address] [place] [address] Sera Casiano M.D., Ph.D. Aislinn Sharma, R.N. home blood pressure monitor check 07/06/2023 9:06 AM CDT - 07/06/2023 11:59 PM CDT Hospital Encounter Department of Laboratory Medicine in [address] [place] [address] Sera Casiano M.D., Ph.D. Hypertension And Chronic Kidney Disease Stage 5 (HCC); Proteinuria; 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 Discharge Disposition: Home or Self Care 07/06/2023 9:06 AM CDT - 07/06/2023 11:59 PM CDT Hospital Encounter Department of Laboratory Medicine in [place], [place] [address] [place] [address] Sera Casiano M.D., Ph.D. Hypertension And Chronic Kidney Disease Stage 5 (HCC); Proteinuria; 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 Discharge Disposition: Home or Self Care 06/30/2023 Orders Only Division of Nephrology and Hypertension in [place], [place] [address] [place] [address] Sera Casiano M.D., Ph.D. 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 06/29/2023 11:47 AM MACHINING AND ASSEMBLY SUPERVISOR - 06/29/2023 11:59 PM MACHINING AND ASSEMBLY SUPERVISOR Hospital Encounter Department of Laboratory Medicine and Pathology, [facility] in [place], [place] [address] [place] [address] Sera Casiano M.D., Ph.D. Hyperkalemia; 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 Discharge Disposition: Home or Self Care 06/29/2023 1:30 PM MACHINING AND ASSEMBLY SUPERVISOR Comprehensive Visit Division of Endocrinology in [place], [place] [address] [place] [address] Sera Casiano M.D., Ph.D. Cammy Silva M.D. Diabetes Mellitus Type 2 (HCC) (Primary Dx); Hypertension And Chronic Kidney Disease Stage 5 (HCC); Proteinuria; Insufficiency Adrenal Secondary (HCC); Morbid Obesity (HCC) 06/26/2023 3:00 PM MACHINING AND ASSEMBLY SUPERVISOR Education Division of Nephrology and Hypertension in [address] [address] Sera Casiano M.D., Ph.D. Sandeep Galicia RMonster. Chronic Kidney Disease Stage 4 Glomerular Filtration Rate 15-29 (HCC) 06/26/2023 4:00 PM MACHINING AND ASSEMBLY SUPERVISOR Office Visit Division of Nephrology and Hypertension in [place], [place] [address] [place] [phone] Sera Casiano M.D., Ph.D. Chronic Kidney Disease Stage 5 Glomerular Filtration Rate Less Than 15 (HCC) (Primary Dx); Hyperkalemia; 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 06/26/2023 8:15 AM MACHINING AND ASSEMBLY SUPERVISOR Internal E-Consult Division of Pulmonary Medicine in [address] [phone] Louie Aleman M.D. 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 06/16/2023 Orders Only Division of Nephrology and Hypertension in [address] [phone] Sandeep Galicia RJosé LuisNJosé Luis Chronic Kidney Disease Stage 4 Glomerular Filtration Rate 15-29 (HCC) (Primary Dx) 06/15/2023 Orders Only Department of Ophthalmology in [address] [phone] Bailey Campo C.O.A. 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, in [place], [place] [address] [place] [address] Sandeep Galicia, RJosé LuisN. 06/15/2023 Orders Only Division of Nephrology and Hypertension in [place], [place] [address] [place] [phone] Sera Casiano M.D., Ph.D. Chronic Kidney Disease Stage 5 Glomerular Filtration Rate Less Than 15 (HCC) (Primary Dx) 06/15/2023 3:20 PM MACHINING AND ASSEMBLY SUPERVISOR - 06/15/2023 11:59 PM MACHINING AND ASSEMBLY SUPERVISOR Hospital Encounter Department of Laboratory Medicine and Pathology, [facility] in [place], [place] [address] [place] [phone] Sera Casiano M.D., Ph.D. Chronic Kidney Disease Stage 5 Glomerular Filtration Rate Less Than 15 (HCC) Discharge Disposition: Home or Self Care 06/15/2023 Ancillary Procedure Department of Ophthalmology 06/15/2023 Orders Only Division of Nephrology and Hypertension in [place], [place] [address] [place] [phone] Sera Casiano M.D., Ph.D. Chronic Kidney Disease Stage 5 Glomerular Filtration Rate Less Than 15 (HCC) (Primary Dx) 06/15/2023 1:00 PM MACHINING AND ASSEMBLY SUPERVISOR Education Division of Nephrology and Hypertension in [place], [place] [address] [place] [phone] Sera Casiano M.D., Ph.D. Sandeep Galicia, R.N. Chronic Kidney Disease Stage 5 Glomerular Filtration Rate Less Than 15 (HCC) 06/15/2023 2:30 PM MACHINING AND ASSEMBLY SUPERVISOR Ancillary Procedure Department of Ophthalmology in [place], [place] [address] [place] [phone] Justin Bunch M.D. 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 Hypertension And Chronic Kidney Disease Stage 5 (HCC); Proteinuria; 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; Acute Metabolic Acidosis; Hyperphosphatemia; Hypocalcemia; Anemia Of Chronic Renal Disease Discharge Disposition: Home or Self Care 06/05/2023 Orders Only Department of Community Internal Medicine in [address] [place] [address] Clover Delaney M.D. 06/04/2023 Orders Only Division of Gastroenterology in [place], [place] [address] [place] [phone] Evelio Graham M.D. Genetic Susceptibility To Disease 06/04/2023 Clinical Communication Division of Nephrology and Hypertension in [place], [place] [address] [place] [phone] Sera Casiano M.D., Ph.D. Clarification on Aranes 06/02/2023 Refill Department of Community Internal Medicine in [place] [address] [place] [address] Karlene Rodríguez APRN, C.N.P., D.N.P. Med Refill 05/29/2023 3:00 PM MACHINING AND ASSEMBLY SUPERVISOR Education Division of Nephrology and Hypertension in [place], [place] [address] [place] [address] Mónica Portillo APRN, C.N.P., M.S. Sandeep Galicia, R.N. Chronic Kidney Disease Stage 5 Glomerular Filtration Rate Less Than 15 (HCC) (Primary Dx); Chronic Kidney Disease Stage 4 Glomerular Filtration Rate 15-29 (HCC) 05/29/2023 4:00 PM MACHINING AND ASSEMBLY SUPERVISOR Comprehensive Visit Division of Nephrology and Hypertension in [place], [place] [address] [place] [address] Sera Casiano M.D., Ph.D. 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 Lauren Madden Incomplete Bladder Emptying (Primary Dx); Hypertension And Chronic Kidney Disease Stage 5 (HCC); Proteinuria 05/29/2023 9:24 AM MACHINING AND ASSEMBLY SUPERVISOR - 05/29/2023 11:59 PM MACHINING AND ASSEMBLY SUPERVISOR Hospital Encounter Department of Radiology, [facility] in [place], [place] [address] [place] [address] Mónica Portillo APRN, C.N.P., M.S. Hypertension And Chronic Kidney Disease Stage 5 (HCC); Proteinuria Discharge Disposition: Home or Self Care 05/29/2023 8:00 AM MACHINING AND ASSEMBLY SUPERVISOR Office Visit Department of Community Internal Medicine in [place] [address] [place] [address] Clover Delaney M.D. Hypertension And Chronic Kidney [...] Home or Self Care 05/28/2023 10:02 AM MACHINING AND ASSEMBLY SUPERVISOR - 05/28/2023 11:59 PM MACHINING AND ASSEMBLY SUPERVISOR Hospital Encounter Department of Laboratory Medicine in [place] [address] [place] [phone] Mónica Portillo APRN, C.N.Allie., M.S. Hypertension And Chronic Kidney Disease Stage 5 (HCC); Proteinuria Discharge Disposition: Home or Self Care 05/28/2023 10:00 AM MACHINING AND ASSEMBLY SUPERVISOR - 05/28/2023 10:01 AM MACHINING AND ASSEMBLY SUPERVISOR Hospital Encounter Department of Laboratory Medicine in [address] [place] [address] Mónica Portillo APRN, C.N.P., M.S. Hypertension And Chronic Kidney Disease Stage 5 (HCC); Proteinuria Discharge Disposition: Home or Self Care from Last 3 Months Allergies Active Allergy Reactions Criticality Noted Date Comments Amlodipine Edema High 07/10/2023 Epinephrine Palpitations High 11/11/2012 Tachycardia Penicillins Itching,Rash Medium 11/11/2012 Medications Medication Sig Dispensed Refills Start Date End Date Status miscellaneous medical supply [facility] CPAP Supplies See Instructions, CPAP machine, mask 1 ea x 4 refills, headgear 1 ea x 2 refills, tubing 1 ea x 4 refills, filters 2 ea per month, tub 1 ea x 2 refills, mask seal 1 ea x 2 refills DX G47.33, length of need 99, 1 each, 0 Refill(s) 10/20/2016 Active miscellaneous medical supply [facility] Head Gear for CPAP Machine See Instructions, fax to patient at [phone], 1 each 01/17/2014 Active MULTIVITAMIN ORAL Daily [...] by mouth daily. 90 tablet 3 06/26/2023 Active tirzepatide (Mounjaro) 5 mg/0.5 mL pen [...] Overview: Added automatically from request for surgery [id number] Cancer Colon Transverse Personal History 020 Overview: 03/2018 No evidence of metastatic disease, stable colon, diverticulosis on CT 04/09/2020 ([facility], [facility]) Repeat colonoscopy fall [address] Sewell (oncology, [place]), follow up Dr. Sewell 6-12 months with [...] of 03/2020 and determined to be benign ([facility] records). Leukocytosis 01/22/2018 Malignant [...] Overview: Added automatically from request for surgery [id number] Hematochezia 11/09/2017 07/01/2018 Overview: Added automatically from request for surgery [id number] Diarrhea 11/09/2017 09/28/2018 Overview: S/P recurrent c [...] months and older)(PF) 01/27/2020,02/11/2019,02/10/2018,2016,03/10/2016,03/08/2015,02/17/2014,1 ,02/26/2008,03/10/2006, 005,04/03/2003,04/06/2002,04/22/2001,,03/18/1999,03/26/1998,02/15/19 97,02/16/1996 Social History Tobacco Use Types Packs/Day Years [...] any clubs o r organizations such as holiness groups, unions, fraternal or athletic groups, or [...] Answer Date Recorded PHQ-2 Score 2 05/28/2023 [facility] of Occupat [...] Sex Assigned at Male 05/13/2021 10:11 AM MACHINING AND ASSEMBLY SUPERVISOR Gender Identity Male 11/02/2017 7:22 PM CDT Sexual Orientation Straight 11/02/2017 7: 22 PM CDT Last Filed Vital Signs Vital Sign Reading Time Taken Comments Blood Pressure 204/78 07/10/2023 3:05 PM CDT Pulse 52 06/15/2023 2:08 PM MACHINING AND ASSEMBLY SUPERVISOR Temperature 36.7 ??C (98.1 ??F) 04/07/2023 2:34 PM CS T Respiratory Rate 17 04/07/2023 2:34 PM MACHINING AND ASSEMBLY SUPERVISOR Oxygen Saturation 96% 04/07/2023 2:34 PM MACHINING AND ASSEMBLY SUPERVISOR Inhaled Oxygen Concentration - - Weight 157 kg (346 lb 2 oz) 07/10/2023 1:33 PM C DT Height 176.9 cm (5' 9.65) 07/10/2023 1:33 PM CD T Body Mass Index 50.17 07/10/2023 1:33 PM CDT Plan of Treatment Upcoming Encounters Date Type Department Care Team (Latest Contact Info) Description 08/19/2023 3:00 PM CDT Clinical Communication Virtual Review in [place], [place] [address] [place] [address] 08/21/2023 1:30 PM CDT Comprehensive Visit Division of Pulmonary Medicine in [place], [place] [address] [place] [phone] Gallito Crabtree M.D. [address] [place] [phone] 09/08/2023 10:00 AM CDT Appointment Department of Laboratory Medicine in [place] [address] [place] [address] Sera Casiano M.D., Ph.D. [address] [place] [phone] 09/08/2023 10:10 AM CDT Appointment Department of Laboratory Medicine in [place] [address] [place] [phone] Sera Casiano M.D., Ph.D. [address] [place] [phone] 09/28/2023 8:15 AM CDT Hospital Encounter Outpatient Surgery Unit in [place], [place] [address] [place] [phone] Sandeep Kuo M.D., Ph.D. [address] [place] [phone] 09/28/2023 8:15 AM CDT - 09/28/2023 11:06 AM CDT Surgery [facility] [address] [place] [address] Sandeep Kuo M.D., Ph.D. 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) 09/28/2023 8:15 AM CDT Procedures Procedure Name Priority Date/Time Associated Diagnosis [...] Erythropoietin FERRITIN, S Routine 06/29/2023 12:11 PM MACHINING AND ASSEMBLY SUPERVISOR 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 IRON AND TOT IRON-BINDING CAPACITY, S/P Routine 06/29/2023 12:11 PM MACHINING AND ASSEMBLY SUPERVISOR 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 RENAL FUNCTION PANEL, S Routine 06/29/2023 12:11 PM MACHINING AND ASSEMBLY SUPERVISOR Hyperkalemia QUANTIFERON-TB GOLD PLUS, B Routine 06/15/2023 4:07 PM MACHINING AND ASSEMBLY SUPERVISOR Chronic Kidney Disease Stage 5 Glomerular Filtration Rate Less Than 15 (HCC) BASIC METABOLIC PANEL, S/P Routine 06/15/2023 4:06 PM MACHINING AND ASSEMBLY SUPERVISOR Chronic Kidney Disease Stage 5 Glomerular Filtration Rate Less Than 15 (HCC) HEPATITIS B SURFACE ANTIGEN Routine 06/15/2023 4:06 PM MACHINING AND ASSEMBLY SUPERVISOR Chronic Kidney Disease Stage 5 Glomerular Filtration Rate Less Than 15 (HCC) HCV AB W/REFLEX TO HCV PCR, S Routine 06/15/2023 4:06 PM MACHINING AND ASSEMBLY SUPERVISOR Chronic Kidney Disease Stage 5 Glomerular Filtration Rate Less Than 15 (HCC) HBC TOTAL AB, SERUM Routine 06/15/2023 4 :06 PM MACHINING AND ASSEMBLY SUPERVISOR Chronic Kidney Disease Stage 5 Glomerular Filtration Rate Less Than 15 (HCC) HBS ANTIBODY, SERUM Routine 06/15/2023 4 :06 PM MACHINING AND ASSEMBLY SUPERVISOR Chronic Kidney Disease Stage 5 Glomerular Filtration Rate Less Than 15 (HCC) OPTICAL COHERENCE TOMOGRAPHY - MACULA/RETINA - OU - BOTH EYES Routine 06/15/2023 2:26 PM MACHINING AND ASSEMBLY SUPERVISOR 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) OPHTHALMOLOGY IMAGE EXAM Routine 06/15/2023 12:00 AM MACHINING AND ASSEMBLY SUPERVISOR CBC WITH DIFFERENTIAL, B Routine 06/12/2023 10:53 AM MACHINING AND ASSEMBLY SUPERVISOR Anemia Of Chronic Renal Disease FOLATE, S Routine 06/12/2023 10:53 AM MACHINING AND ASSEMBLY SUPERVISOR Hypertension And Chronic Kidney Disease Stage 5 (HCC) Proteinuria 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 Acute Metabolic Acidosis Hyperphosphatemia Hypocalcemia VITAMIN B12 ASSAY, S Routine 06/12/2023 10:53 AM MACHINING AND ASSEMBLY SUPERVISOR Hypertension And Chronic Kidney Disease Stage 5 (HCC) Proteinuria 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 Acute Metabolic Acidosis Hyperphosphatemia Hypocalcemia URO UROFLOW Routine 05/29/2023 1:00 PM MACHINING AND ASSEMBLY SUPERVISOR Hypertension And Chronic Kidney Disease Stage 5 (HCC) Proteinuria US KIDNEYS BILATERAL WITH BLADDER RAD - Routine (most inpatients and all outpatients) 05/29/2023 10:33 AM MACHINING AND ASSEMBLY SUPERVISOR Hypertension And Chronic Kidney Disease Stage 5 (HCC) Proteinuria URINALYSIS WITH MICROSCOPIC Routine 05/28/2023 10:13 AM MACHINING AND ASSEMBLY SUPERVISOR Hypertension And Chronic Kidney Disease Stage 5 (HCC) Proteinuria CYSTATIN C WITH EGFR Routine 05/28/2023 10:08 AM MACHINING AND ASSEMBLY SUPERVISOR Hypertension And Chronic Kidney Disease Stage 5 (HCC) Proteinuria RENAL FUNCTION PANEL, S Routine 05/28/2023 10:08 AM MACHINING AND ASSEMBLY SUPERVISOR Hypertension And Chronic Kidney Disease Stage 5 (HCC) Proteinuria COLONOSCOPY Routine 04/07/2023 1:48 PM MACHINING AND ASSEMBLY SUPERVISOR Cancer Colon Transverse Personal History HEMOGLOBIN A1C, B Routine 03/30/2023 12:21 PM MACHINING AND ASSEMBLY SUPERVISOR Hypertension And Chronic Kidney Disease Stage 5 [...] the upper pole of the left kidney ([id number]). Hypertrophic changes in the spine. Mild degenerative [...] LAB UR INE ORDERABLES Performing Organization Address City/[facility]/ZIP Co de Phone Number [facility] [address] [facility] [address] [place] [address] * (ABNORMAL) Microscopic Manual (07/29/2023 10:27 AM [...] LAB UR INE ORDERABLES Performing Organization Address City/[facility]/ZIP Co de Phone Number [facility] [address] [place] [address] * pH, Urine (07/29/2023 10:27 AM CDT) Pathologist [facility] pH, U 6.2 4.5 - 8.0 07/29/2023 11: 02 AM CDT DTL Urine 07/29/2023 10:2 7 AM CDT 07/29/2023 10:35 AM CDT Sera Hyman M.D., Ph.D. LAB UR INE ORDERABLES Performing Organization Address City/[facility]/ZIP Co de Phone Number [facility] [address] [place] [address] * Osmolality, Urine (07/29/2023 10:27 AM CDT) [facility] Osmolality, U 323 150 - 1150 mOsm/kg 07/29/2023 11:02 AM CDT DT Urine 07/29/2023 10:2 7 AM CDT 07/29/2023 10:35 AM CDT Sera Hyman M.D., Ph.D. LAB UR INE ORDERABLES Performing Organization Address City/[facility]/ZIP Co de Phone Number [facility] 200 [place] [address] * (ABNORMAL) Urinalysis, with Microscopic: Urine, Midstream (07/29/2023 10:27 AM CDT) Only the most recent of3 resultswithin the time period is included. Pathologist [facility] Source Urine, Urine, Midstream 07/29/2023 10:35 AM CDT DTL Color, U Yellow 07/29/2023 10:35 AM CDT DTL Clarity, U Clear 07/29/2023 10:35 AM CDT DTL Protein, U 308(H) <26 mg/dL 07/29/2023 11:44 AM CDT DTL Protein/Osmol ality 9.54(H) <0.42 ratio 07/29/2023 11:44 AM CDT DTL Predicted 24 HR Protein, U 8076(H) <229 mg/24 h 07/29/2023 11:44 AM CDT DTL Predicted Range 2563-73677 mg/24 h 07/29/2023 11:44 AM CDT DTL Comment Micro done on <10 mL 07/29/2023 1:01 PM CDT DTL Urine (Urine, Midstream) 07/29/2023 10:27 AM CDT 07/29/2023 10:35 AM CDT Sera Hyman M.D., Ph.D. LAB UR INE ORDERABLES Performing Organization Address City/[facility]/ZIP Co de Phone Number [facility] [address] [place] [address], [facility] [address] [place] [address] * ANCA (Antineutrophil Cytoplasmic Antibodies) Vasculitis Panel (07/29/2023 10:17 AM CDT) Myeloperoxidase Ab, S <0.2 <0.4 (Negative ) U 07/29/2023 4:45 PM CDT SDSC Proteinase 3 Ab (PR3), S <0.2 <0.4 (Negative ) U 07/29/2023 4:45 PM CDT [facility] Blood (Blood, Venous) 07/29/2023 10:17 AM CDT 07/29/2023 2:52 PM CDT Sera Hyman M.D., Ph.D. LAB BL OOD ADD-ON [facility] [address] [place] [address] [facility] [address] [place] [address] * (ABNORMAL) CBC with Differential, Blood (07/29/2023 [...] Hyman M.D., Ph.D. LAB BL OOD ADD-ON [facility] [address] [place] [address], [facility] DTL [facility] [address] [place] [address] [facility] 200 [place] [address] * CRP (C-Reactive Protein) (07/29/2023 10:17 AM CDT) C-Reactive Protein (CRP), S <3.0 <5.0 mg/L 07/29/2023 12:32 PM CDT DTL Blood (Blood, Venous) 07/29/2023 10:17 AM CDT 07/29/2023 10:55 AM CDT Sera Hyman M.D., Ph.D. LAB BL OOD ADD-ON [facility] [address] [address] * (ABNORMAL) Uric Acid (07/29/2023 10:17 AM CDT) Only the most recent of2 resultswithin the time period is included. Uric Acid, S 11.2(H) 3.7 - 8.0 mg/dL 07/29/2023 12:32 PM CDT DTL Blood (Blood, Venous) 07/29/2023 10:17 AM CDT 07/29/2023 10:55 AM CDT Sera Hyman M.D., Ph.D. LAB BL OOD ADD-ON [facility] [address] 200 [place] [address] * Phosphorus Inorganic (07/29/2023 10:17 AM CDT) Phosphorus (Inorganic), S 4.5 2.5 - 4.5 mg/dL 07/29/2023 12:32 PM CDT DTL Blood (Blood, Venous) 07/29/2023 10:17 AM CDT 07/29/2023 10:55 AM CDT Sera Hyman M.D., Ph.D. LAB BL OOD ADD-ON [facility] 200 [place] [address], [facility] 200 [place] [address] * (ABNORMAL) Glucose, Fasting (07/29/2023 10:17 AM CDT) Glucose, P 256(H) 70 - 100 mg/dL 07/29/2023 11:15 AM CDT DTL Last Intake 16 hr 07/29/2023 10:52 AM CDT DTL Blood (Blood, Venous) 07/29/2023 10:17 AM CDT 07/29/2023 10:52 AM CDT Sera Hyman M.D., Ph.D. LAB BL OOD NON ADD-ON Performing Organization Address City/[facility]/ZIP Co de Phone Number [facility] 200 [place] [address], [facility] 200 [place] [address] * (ABNORMAL) Comprehensive Metabolic Panel (07/29/2023 10:17 AM CDT) Potassium, S 4.2 3.6 - 5.2 mmol/L [...] Hyman M.D., Ph.D. LAB BL OOD ADD-ON [facility] [address] [place] [address], [facility] [address] [place] [address] * Pulmonary Function Tests (07/29/2023 9:02 AM CDT) FVC 2.15 L 07/29/2023 10:[address] [facility] FEV1 1.56 L 07/29/2023 10:[address] [facility] FEV1/FVC 72.56 % 07/29/2023 10:[address] [facility] YKS63-50% 1.03 L/s 07/29/2023 10:[address] [facility] PEF PRE 5.91 L/s 07/29/2023 10:[address] [facility] PIF PRE 3.35 L/s 07/29/2023 10:[address] [facility] FEF 50 % FIF 50 PRE 54.00 % 07/29/2023 10:[address] [facility] FET PRE 9.49 sec 07/29/2023 10:[address] [facility] DLCO 10.65 ml/(min*mm Hg) 07/29/2023 10:[address] [facility] DLCOc 14.91 ml/(min*mm Hg) 07/29/2023 10:[address] [facility] HB 7.40 g(Hb)/dL 07/29/2023 10:[address] [facility] VA 4.05 L 07/29/2023 10:[address] [facility] PulseRest 50.00 1/min 07/29/2023 10:[address] [facility] TLC 4.43 L 07/29/2023 10:[address] [facility] FRCPLETH PROVBASE 2.72 L 07/29/2023 10:[address] [facility] RV 1.96 L 07/29/2023 10:[address] [facility] RV % TLC PRE 44.12 % 07/29/2023 10:[address] [facility] 07/29/2023 9:02 AM CDT Impressions [facility] - 07/29/2023 10:32 AM CDT Abnormal study. [...] Sera Hyman M.D., Ph.D. PFT OR DERABLES [facility] NA * (ABNORMAL) Renal Function Panel (07/06/2023 [...] Hyman M.D., Ph.D. LAB BL OOD ADD-ON [facility] [address] [facility] [place] [address], [facility] RDWG [facility] in [place] [address] [place] [address] * (ABNORMAL) Cystatin C with Estimated GFR [...] Hyman M.D., Ph.D. LAB BL OOD ADD-ON [facility] [address] [place] [address], [facility] DTL [facility] [address] [place] [address] * (ABNORMAL) Iron and Total Iron-Binding Capacity [...] LAB BL OOD ADD-ON Performing Organization Address City/[facility]/ZIP Co de Phone Number [facility] [address] [place] [address], [facility] RDWG [facility] in [place] [address] * (ABNORMAL) Albumin, Random, Urine (07/06/2023 9:22 AM CDT) Microalbumin 2309.6 mg/L 07/06/2023 1:30 PM CDT [facility] Creatinine 69 mg/dL 07/06/2023 12:51 PM CDT [facility] Albumin/Creatinin e Ratio 3347(H) <17 mg/g 07/06/2023 1:30 PM CDT [facility] Urine (Urine, Voided) 07/06/2023 9:22 AM CDT 07/06/2023 11:59 AM CDT Sera Hyman M.D., Ph.D. LAB UR INE ORDERABLES [facility] [address] [place] [address], [facility] RDWG [facility] in [address] [address] * (ABNORMAL) Protein/Creatinine Ratio, Random, Urine (07/06/2023 [...] Hyman M.D., Ph.D. LAB UR INE ORDERABLES [facility] [address] [place] [address], [facility] in [address] [address] * (ABNORMAL) Ferritin (07/06/2023 9:22 AM CDT) Only the most recent of2 resultswithin the time period is included. Ferritin, S 457(H) 31 - 409 mcg/L 07/06/2023 12:57 PM CDT RDW[facility] Comment: Biotin has been identified by the clay preparation supervisor as a potential interfering substance. Higher concentrations of biotin may be found in multivitamins, hair/nail supplements, and workout supplements. If the result does not match clinical observations, repeat testing after patient refrains from the use of supplements for at least 12 hours. Blood (Blood, Venous) 07/06/2023 9:22 AM CDT 07/06/2023 11:51 AM CDT Sera Hyman M.D., Ph.D. LAB BL OOD ADD-ON [facility] [address] [place] [address], [facility] RDWG [facility] in [place] [address] [place] [address] * QuantiFERON-Tb Gold Plus, Blood (06/15/2023 4:07 PM MACHINING AND ASSEMBLY SUPERVISOR) [facility] QuantiFERON-TB Gold Plus Result Negative Negative 06/16/2023 12:08 PM MACHINING AND ASSEMBLY SUPERVISOR SDSC Comment: No interferon-gamma response to M. tuberculosis antigens was detected. Latent infection with M. tuberculosis is unlikely. A single negative result does not exclude infection with M. tuberculosis. In patients at high risk for M.tuberculosis infection, a second test should be considered in accordance with the 2017 ATS/IDSA/CDC Clinical Practice Guidelines for Diagnosis of Tuberculosis in Adults and Children [Salbadorinsphiln DM et. al. Clin. Infect. Dis. 2017;64(2):111-115]. The reference range for the 'TB1 Ag minus Nil Result' and 'TB2 Ag minus Nil Result' is an Interferon-gamma level <0.35 IU/mL. TB1 Ag minus Nil Result 0.02 IU/mL 06/16/2023 12:08 PM MACHINING AND ASSEMBLY SUPERVISOR SDSC TB2 Ag minus Nil Result 0.01 IU/mL 06/16/2023 12:08 PM MACHINING AND ASSEMBLY SUPERVISOR SDSC Mitogen minus Nil Result 3.42 IU/mL 06/16/2023 12:08 PM MACHINING AND ASSEMBLY SUPERVISOR SDSC Nil Result 0.04 IU/mL 06/16/2023 12:08 PM MACHINING AND ASSEMBLY SUPERVISOR SDSC Blood (Blood, Venous) 06/15/2023 4:07 PM MACHINING AND ASSEMBLY SUPERVISOR 06/15/2023 5:59 PM MACHINING AND ASSEMBLY SUPERVISOR Narrative [facility] - 06/16/2023 12:08 PM MACHINING AND ASSEMBLY SUPERVISOR Specimen Information: Specimen ID: [id number] Specimen Type: Blood Specimen Collection Start Date: 06/15/2023 ??4:07 PM Specimen Received Date: 06/15/2023 ??5:59 PM Specimen ID: [id number] Specimen Type: Blood Specimen Collection Start Date: 06/15/2023 ??4:07 PM Specimen Received Date: 06/15/2023 ??5:59 PM Specimen ID: [id number] Specimen Type: Blood Specimen Collection Start Date: 06/15/2023 ??4:07 PM Specimen Received Date: 06/15/2023 ??5:59 PM Specimen ID: [id number] Specimen Type: Blood Specimen Collection Start Date: 06/15/2023 ??4:07 PM Specimen Received Date: 06/15/2023 ??5:59 PM Sera Hyman M.D., Ph.D. LAB [facility] BLOOD ORDERABLES Performing Organization Address City/[facility] Co de Phone Number [facility] [address] [place], [place] [address] [place] [address] [place] [address] [place] [address] * HCV Ab w/Reflex to HCV PCR, Serum (06/15/2023 4:06 PM MACHINING AND ASSEMBLY SUPERVISOR) Pathologist [facility] HCV Ab, S Negative Negative 06/15/2023 10:21 PM MACHINING AND ASSEMBLY SUPERVISOR [facility] Comment:Zulysm-iq-iqocap rat io is <1.00. Blood (Blood, Venous) 06/15/2023 4:06 PM MACHINING AND ASSEMBLY SUPERVISOR 06/15/2023 8:15 PM MACHINING AND ASSEMBLY SUPERVISOR Sera Hyman M.D., Ph.D. LAB [facility] BLOOD ORDERABLES Performing Organization Address City/[facility]/ZIP Co de Phone Number [facility] [address] [place] [address] [facility] [address] [address] * HBc Total Ab, Serum (06/15/2023 4:06 PM MACHINING AND ASSEMBLY SUPERVISOR) HBc Total Ab, S Negative Negative 06/15/2023 10:17 PM MACHINING AND ASSEMBLY SUPERVISOR [facility] Blood (Blood, Venous) 06/15/2023 4:06 PM MACHINING AND ASSEMBLY SUPERVISOR 06/15/2023 8:15 PM MACHINING AND ASSEMBLY SUPERVISOR Sera Hyman M.D., Ph.D. LAB [facility] BLOOD ORDERABLES [facility] [address] [place] [address] [facility] [address] [place] [address] * HBs Antibody, Serum (06/15/2023 4:06 PM MACHINING AND ASSEMBLY SUPERVISOR) HBs Antibody, S Negative 06/15/2023 10:18 PM MACHINING AND ASSEMBLY SUPERVISOR [facility] Comment: Patient is presumed to be not immune to infection with HBV. ----REFERENCE VALUE---- Unvaccinated: Negative Vaccinated: Positive HBs Antibody, Quantitative, S <5.0 mIU/mL 06/15/2023 10:18 PM MACHINING AND ASSEMBLY SUPERVISOR [facility] Comment: ----REFERENCE VALUE---- Unvaccinated: <5.0 Vaccinated: >=12.0 Blood (Blood, Venous) 06/15/2023 4:06 PM MACHINING AND ASSEMBLY SUPERVISOR 06/15/2023 8:15 PM MACHINING AND ASSEMBLY SUPERVISOR Sera Hyman M.D., Ph.D. LAB [facility] - BLOOD ORDERABLES Performing Organization Address City/[facility]/ZIP Co de Phone Number [facility] [address] [place] [address] [facility] [address] [place] [address] * Hepatitis B Surface Antigen (06/15/2023 4:06 PM MACHINING AND ASSEMBLY SUPERVISOR) HBs Antigen, S Negative Negative 06/15/2023 10:03 PM MACHINING AND ASSEMBLY SUPERVISOR [facility] Blood (Blood, Venous) 06/15/2023 4:06 PM MACHINING AND ASSEMBLY SUPERVISOR 06/15/2023 8:15 PM MACHINING AND ASSEMBLY SUPERVISOR Sera Hyman M.D., Ph.D. LAB [facility] BLOOD ORDERABLES [facility] [address] [place] [address] [facility] [address] [place] [address] * (ABNORMAL) Basic Metabolic Panel (06/15/2023 4:06 PM MACHINING AND ASSEMBLY SUPERVISOR) Potassium, S 5.6(H) 3.6 - 5.2 mmol/L 06/15/2023 4:59 PM MACHINING AND ASSEMBLY SUPERVISOR DTL Sodium, S 142 135 - 145 mmol/L 06/15/2023 4:59 PM MACHINING AND ASSEMBLY SUPERVISOR DTL Chloride, S 105 98 - 107 mmol/L 06/15/2023 4:59 PM MACHINING AND ASSEMBLY SUPERVISOR DTL Bicarbonate, S 23 22 - 29 mmol/L 06/15/2023 4:59 PM MACHINING AND ASSEMBLY SUPERVISOR DTL Anion Gap 14 7 - 15 06/15/2023 4:59 PM MACHINING AND ASSEMBLY SUPERVISOR DTL BUN (Blood Urea Nitrogen), S 68(H) 8 - 24 mg/dL 06/15/2023 4:59 PM MACHINING AND ASSEMBLY SUPERVISOR DTL Creatinine 4.61(H) 0.74 - 1.35 mg/dL 06/15/2023 4:59 PM MACHINING AND ASSEMBLY SUPERVISOR DTL Estimated GFR (eGFR) <15(L) >=60 mL/min/BSA 06/15/2023 4:59 PM MACHINING AND ASSEMBLY SUPERVISOR DTL Comment: Estimated GFR calculated using the 2020 CKD_EPI creatinine equation. Calcium, Total, S 8.8 8.8 - 10.2 mg/dL 06/15/2023 4:59 PM MACHINING AND ASSEMBLY SUPERVISOR DTL Glucose, S 130 70 - 140 mg/dL 06/15/2023 4:59 PM MACHINING AND ASSEMBLY SUPERVISOR DTL Blood (Blood, Venous) 06/15/2023 4:06 PM MACHINING AND ASSEMBLY SUPERVISOR 06/15/2023 4:42 PM MACHINING AND ASSEMBLY SUPERVISOR Sera Hyman M.D., Ph.D. LAB BL OOD ADD-ON [facility] [address] [place] [address], [place] [facility] [address] [place] [address] * Optical Coherence Tomography - Macula/Retina - OU - Both Eyes (06/15/2023 2:26 PM MACHINING AND ASSEMBLY SUPERVISOR) Narrative OPHTHALMOLOGY IMAGING EXAM - 06/15/2023 3:45 PM MACHINING AND ASSEMBLY SUPERVISOR Right Eye Reliability was good. OCT device used was Spectralis . Left Eye It was a technically difficult scan. OCT device used was Spectralis . Notes FREDY/JH See interpretation in note section Justin Bunch M.D. OPHTH TOMOGRAPHY Performing Organization Address [facility] Co de Phone Number OPHTHALMOLOGY IMAGING EXAM * Eyes Spectralis OCT-Ophthalmology Image Exam (06/15/2023 12:00 AM MACHINING AND ASSEMBLY SUPERVISOR) Narrative IIMS - 06/15/2023 2:28 PM MACHINING AND ASSEMBLY SUPERVISOR This order has been created and auto-finalized to support the import of images acquired without order. The clinical documentation to support these images can be found on the encounter that produced images. Provider Not In System IMG NON RAD IMAGI NG PROCEDURES Performing Organization Address [facility] Co de Phone Number [facility] NA * Folate (06/12/2023 10:53 AM MACHINING AND ASSEMBLY SUPERVISOR) Folate, S 12.6 >=4.0 mcg/L 06/13/2023 2:09 AM MACHINING AND ASSEMBLY SUPERVISOR ECLR Comment: Biotin has been identified by the clay preparation supervisor as a potential interfering substance. Higher concentrations of biotin may be found in multivitamins, hair/nail supplements, and workout supplements. If the result does not match clinical observations, repeat testing after patient refrains from the use of supplements for at least 12 hours. Blood (Blood, Venous) 06/12/2023 10:53 AM MACHINING AND ASSEMBLY SUPERVISOR 06/12/2023 9:30 PM MACHINING AND ASSEMBLY SUPERVISOR Kassandra Couch APRN.N.P., M.S. LAB BLOOD ADD-ON Performing Organization Address [facility] Co de Phone Number [facility] [address] [place] [address], [facility] ECLR [facility] in [address] [address] * (ABNORMAL) Vitamin B12 Assay (06/12/2023 10:53 AM MACHINING AND ASSEMBLY SUPERVISOR) Pathologist [facility] Vitamin B12 Assay, S 1249(H) 232 - 1245 ng/L 06/13/2023 2:09 AM MACHINING AND ASSEMBLY SUPERVISOR ECLR Comment: Biotin has been identified by the clay preparation supervisor as a potential interfering substance. Higher concentrations of biotin may be found in multivitamins, hair/nail supplements, and workout supplements. If the result does not match clinical observations, repeat testing after patient refrains from the use of supplements for at least 12 hours. Blood (Blood, Venous) 06/12/2023 10:53 AM MACHINING AND ASSEMBLY SUPERVISOR 06/12/2023 9:30 PM MACHINING AND ASSEMBLY SUPERVISOR Mónica Portillo APRN, C.N.P., M.S. LAB BLOOD ADD-ON [facility] [address] [place] [address], [facility] ECLR [facility] [place] [address] * URO Uroflow (05/29/2023 1:00 PM MACHINING AND ASSEMBLY SUPERVISOR) Narrative Burke Hanna M.D. - 05/29/2023 1:00 PM MACHINING AND ASSEMBLY SUPERVISOR Burke Hanna M.D. ? 05/29/2023 ??4:49 PM [...] Kidneys Bilateral with Bladder (05/29/2023 10:33 AM MACHINING AND ASSEMBLY SUPERVISOR) Anatomical Region Laterality Modality Abdomen, Renal, Ultrasound R ST LOS, Ultrasound ARZ LOS, Ultrasound FLA LOS Bilateral Ultrasound Impressions 05/29/2023 11:37 AM MACHINING AND ASSEMBLY SUPERVISOR 1. Slightly thinned and hyperechoic appearance of [...] CT or MR. Narrative 05/29/2023 11:37 AM MACHINING AND ASSEMBLY SUPERVISOR EXAM: US KIDNEYS BILATERAL WITH BLADDER COMPARISON: [...] * (ABNORMAL) Hemoglobin A1c (03/30/2023 12:21 PM MACHINING AND ASSEMBLY SUPERVISOR) Hemoglobin A1c, B 6.8(H) 4.2 - 5.6 % 03/30/2023 12:36 PM MACHINING AND ASSEMBLY SUPERVISOR CNFL Comment: Hemoglobin A1c values greater than or equal to 6.5 percent are diagnostic for diabetes mellitus. ??Diagnosis should be confirmed by repeat testing. ??In diabetic patients, HbA1c goals should be discussed with healthcare provider. Blood (Blood, Venous) 03/30/2023 12:21 PM MACHINING AND ASSEMBLY SUPERVISOR 03/30/2023 12:23 PM MACHINING AND ASSEMBLY SUPERVISOR Drew Couch APRNNTaylor., M.S. LAB BLOOD ADD-ON [facility] [address] [place] [address], [facility] in [address] [address] * US Aorta AAA Screening (07/22/2017 7:39 [...] andvisualized common iliac arteries are nonaneurysmal. 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 Care Directive * Full Code (Latest [...] Relationship Healthcare Agent Relationshi p Communication Sayra Elkersmanfred Spouse Health Care Agent Kathie Silveira Daughter First Alternate Health Care Agent Monica Boggs Daughter First Alternate Health Care Agent Care Teams Medical Equipment Technician Relationship Specialty Start Date End Date Clover Delaney M.D. [address] [place] [phone] PCP - General Internal Medicine 11/23/17
--- OUTSIDE RECORDS SUMMARY | 2023-08-16 13:56 | XMS_ITS | Encounter Summary ---
Author Name Unknown Organization [facility] Address [address] [place] [address] Care Team Providers Care Residential Specialist Name Role Phone Clover Delaney M.D. Primary Care Provider [phone] Encounter Details Date Type Department Care Team (Late st Contact Info) Description 07/29/2023 Documentation Division of Nephrology and Hypertension in [place], [place] [address] [place] [address] Kanwal Roberts, RLance [address] [place] [phone] Social History Tobacco Use Types Packs/Day Years [...] Date Recorded PHQ-2 Score 2 05/28/2023 [facility] Occupat ional Health - [...] Assigned at Male 05/13/2021 10:11 AM MANAGER CORPORATE COMMUNICATIONS Gender Identity Male 11/02/2017 7:22 PM CDT Sexual Orientation Straight 11/02/2017 7: 22 PM CDT documented as of this encounter Progress Notes * Kanwal Roberts, RJosé LuisNJosé Luis - 07/29/2023 12:05 PM CDT REFERRAL Sera Casiano M.D., Ph.D. CHIEF COMPLAINT/PURPOSE OF VISIT REASON FOR REFERRAL: Needs evaluation for permanent vascular access for dialysis PERTINENT PROCEDURAL HISTORY: Patient received vascular access education on 07/17/2023 with myself over the phone. He meets with Dr. Kuo today. He has not yet started dialysis. IMPRESSION/REPORT/PLAN Surgeon: Patient seen by Dr. Kuo Plan: Right Brachial cephalic AV fistula with possible subsequent superficialization after AVF matures. Surgery: Is scheduled for 09/03/2023. Checklist: The Checklist for Surgical Patients ([id number]) was given to the patient with the following instructions: Report to [facility] admissions at the time told to you when you call in the night before. Report fasting after midnight, no am breakfast, but take your am meds with water. Insulin Directions: Per Diabetes Medication Guidelines for [place]. Anticoagulation medications directions: Aspirin: Per Dr. Kuo, please hold your Aspirin for 5 days prior to procedure. LEXI: Next CKD appointment with Dr. Can Hyman is on 08/04 at 3:45 pm at the [facility]. Other: INFORMED CONSENT Patient signed the consent form electronically. documented in this encounter Plan of Treatment Upcoming Encounters Date Type Department Care Team (Latest Contact Info) Description 08/19/2023 3:00 PM CDT Clinical Communication Virtual Review in [place], [place] [address] [place] [address] 08/21/2023 1:30 PM CDT Comprehensive Visit Division of Pulmonary Medicine in [place], [place] [address] [place] [phone] Gallito Crabtree M.D. [address] [place] [phone] 09/08/2023 10:00 AM CDT Appointment Department of Laboratory Medicine in [address] [place] [address] Sera Casiano M.D., Ph.D. [address] [place] [phone] 09/08/2023 10:10 AM CDT Appointment Department of Laboratory Medicine in [place], [place] [address] [place] [address] Sera Casiano M.D., Ph.D. [address] [place] [phone] 09/28/2023 8:15 AM CDT Hospital Encounter Outpatient Surgery Unit in [place], [place] [address] [place] [phone] Sandeep Kuo M.D., Ph.D. [address] [place] [phone] 09/28/2023 8:15 AM CDT - 09/28/2023 11:06 AM CDT Surgery [facility] [address] [place] [address] Sandeep Kuo M.D., Ph.D. 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 [address] [place] [phone] PCP - General Internal Medicine 11/23/17 documented as of this encounter
--- OUTSIDE RECORDS SUMMARY | 2023-08-16 13:56 | XMS_ITS | Encounter Summary ---
Author Name Unknown Organization [facility] Address [address] [place] [address] Care Team Providers Care Head Inspector Name Role Phone Clover Delaney M.D. Primary Care Provider [phone]- [phone] Encounter Details Date Type Department Care Team (Late st Contact Info) Description 08/10/2023 Clinical Communication Division of Nephrology and Hypertension in [place], [place] [address] [place] [address] Kanwal Roberts, RJosé LuisNJosé Luis [address] [place] [phone] Social History Tobacco Use Types Packs/Day Years [...] How often do you attend chur or sabianist services? Never 07/28/2022 Do you [...] Answer Date Recorded PHQ-2 Score 2 05/28/2023 [facility] - Occupational [...] Sex Assigned at Male 05/13/2021 10:11 AM AUTOMOBILE UPHOLSTERER Gender Identity Male 11/02/2017 7:22 PM CDT Sexual Orientation Straight 11/02/2017 7: 22 PM CDT documented as of this encounter Miscellaneous Notes * Telephone Encounter - Kawnal Roberts R.N. - 08/10/2023 12:17 PM CDT RE: Surgical date change from 09/02 to September 27. Patient is not yet on dialysis. I spoke with Mr. Patel. He would like to accept the new surgical date of 09/28/2023 at this time. No further questions. Surgeon: Dr. Kuo Plan: Right Brachial cephalic AV fistula with possible subsequent superficialization after AVF matures Surgery: New date of 09/28/2023. Surgical Checklist ([id number]): Has been reviewed with the patient on 07/28 Insulin Directions: Per Diabetes Medication Guidelines for Mounjaro. Anticoagulation medications directions: Aspirin: Per Dr. Kuo, please hold your Aspirin for 5 days prior to procedure. LEXI: Pre-op exam occurred on 08/05/[address] Can Hyman documented in this encounter Plan of Treatment Upcoming Encounters Date Type Department Care Team (Latest Contact Info) Description 08/19/2023 3:00 PM CDT Clinical Communication Virtual Review in [place], [place] 200 [place] [address] 08/21/2023 1:30 PM CDT Comprehensive Visit Division of Pulmonary Medicine in [place], [place] [address] [place] [phone] Gallito Crabtree M.D. [address] [place] [phone] 09/08/2023 10:00 AM CDT Appointment Department of Laboratory Medicine in [place] [address] [place] [phone] Sera Casiano M.D., Ph.D. [address] [place] [phone] 09/08/2023 10:10 AM CDT Appointment Department of Laboratory Medicine in [place] [address] [place] [place] [phone] Sera Casiano M.D., Ph.D. [address] [place] [phone] 09/28/2023 8:15 AM CDT Hospital Encounter Outpatient Surgery Unit in [place], [place] [address] [place] [address] Sandeep Kuo M.D., Ph.D. [address] [place] [phone] 09/28/2023 8:15 AM CDT - 09/28/2023 11:06 AM CDT Surgery [facility] [address] [place] [address] Sandeep Kuo M.D., Ph.D. 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 [address] [place] [phone] PCP - General Internal Medicine 11/23/17 documented as of this encounter
--- OUTSIDE RECORDS SUMMARY | 2023-08-16 13:56 | XMS_ITS ---
Author Name Unknown Organization [facility] Address [address] [place] [address] Care Team Providers Care Sld Inclusion Teacher Name Role Phone Clover Delaney M.D. [...] Overview: Added automatically from request for surgery [id number] Cancer Colon Transverse Personal History 020 Overview: 03/2018 No evidence of metastatic disease, stable colon, diverticulosis on CT 04/09/2020 ([facility], [facility]) Repeat colonoscopy fall [address] Sewell (oncology, [place]), follow up Dr. Sewell 6-12 months with [...] of 03/2020 and determined to be benign ([facility] records). Leukocytosis 01/22/2018 Malignant [...] treatments are documented for this patient in [facility]. Treatments may have been administered in another [...] Overview: Added automatically from request for surgery [id number] Hematochezia 11/09/2017 07/01/2018 Overview: Added automatically from request for surgery [id number] Diarrhea 11/09/2017 09/28/2018 Overview: S/P recurrent c diff. Tolerates 1500mg metformin per day. Cancer Colon Family History 01/19/2015 01/06/2020
--- OUTSIDE RECORDS SUMMARY | 2023-08-16 13:56 | XMS_ITS | Encounter Summary ---
Author Name Unknown Organization [facility] Address [address] [place] [address] Care Team Providers Care Data Power Consultant Name Role Phone Clover Delaney M.D. Primary Care Provider +1- [phone] Encounter Details Date Type Department Care Team (Latest Contact Info) Description 07/29/2023 9:49 AM CDT - 07/29/2023 10:51 AM CDT Hospital Encounter Department of Laboratory Medicine and Pathology, [facility], in [place], [place] [address] [place] [phone] Sera Casiano M.D., Ph.D. 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 DME CPAPIndications:Obstruct yasbel Sleep Apnea Adult DME Order 1 each [...] by mouth as needed. miscellaneous medical supply [facility] [place] Supp[place] See Instructions, CPAP machine, mask 1 ea x 4 refills, headgear 1 ea x 2 refills, tubing 1 ea x 4 refills, filters 2 ea per month, tub 1 ea x 2 refills, mask seal 1 ea x 2 refills DX G47.33, length of need 99, 1 each, 0 Refill(s) 10/20/2016 miscellaneous medical supply [facility] [place] Head Gear for CPAP Machine See Instructions, fax to patient at [phone], 1 each 01/17/2014 MULTIVITAMIN ORAL Daily Multiple [...] PM CDT Clinical Communication Virtual Review in [place], [place] 200 [place] [address] 08/21/2023 1:30 PM CDT Comprehensive Visit Division of Pulmonary Medicine in [place], [place] [address] [place] [phone] Gallito Crabtree M.D. [address] [place] [phone] 09/08/2023 10:00 AM CDT Appointment Department of Laboratory Medicine in [place] [address] [place] [phone] Sera Casiano M.D., Ph.D. [address] [place] [phone] 09/08/2023 10:10 AM CDT Appointment Department of Laboratory Medicine in [place] [address] [place] [phone] Sera Casiano M.D., Ph.D. [address] [place] [phone] 09/28/2023 8:15 AM CDT Hospital Encounter Outpatient Surgery Unit in [place], [place] [address] [place] [phone] Sandeep Kou M.D., Ph.D. [address] [place] [phone] 09/28/2023 8:15 AM CDT - 09/28/2023 11:06 AM CDT Surgery [facility] [address] [place] [phone] Sandeep Kuo M.D., Ph.D. 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) documented in this encounter Results * (ABNORMAL) Microscopic Manual (07/29/2023 10:27 AM [...] LAB UR INE ORDERABLES Performing Organization Address [facility] Co de Phone Number [facility] 200 [place], [place] [address] 200 [place] [address] * (ABNORMAL) Dipstick, Urine (07/29/2023 10:27 AM [...] LAB UR INE ORDERABLES Performing Organization Address City/[facility] Co de Phone Number [facility] [address] [place] [address], [facility] [place] 200 [place] [address] * pH, Urine (07/29/2023 10:27 AM CDT) pH, U 6.2 4.5 - 8.0 07/29/2023 11: 02 AM CDT DTL Urine 07/29/2023 10:2 7 AM CDT 07/29/2023 10:35 AM CDT Sera Hyman M.D., Ph.D. LAB UR INE ORDERABLES Performing Organization Address City/[facility] Co de Phone Number [facility] 200 [place] [address] * Osmolality, Urine (07/29/2023 10:27 AM CDT) Pathologist [facility] Osmolality, U 323 150 - 1150 mOsm/kg 07/29/2023 11:02 AM CDT DTL Urine 07/29/2023 10:2 7 AM CDT 07/29/2023 10:35 AM CDT Sera Hyman M.D., Ph.D. LAB UR INE ORDERABLES Performing Organization Address [facility] de Phone Number [phone] [place] [address] * (ABNORMAL) Urinalysis, with Microscopic: Urine, Midstream (07/29/2023 10:27 AM CDT) Source Urine, Urine, Midstream 07/29/2023 10:35 AM CDT DTL Color, U Yellow 07/29/2023 10:35 AM CDT DTL Clarity, U Clear 07/29/2023 10:35 AM CDT DTL Protein, U 308(H) <26 mg/dL 07/29/2023 11:44 AM CDT DTL Protein/Osmol ality 9.54(H) <0.42 ratio 07/29/2023 11:44 AM CDT DTL Predicted 24 HR Protein, U 8076(H) <229 mg/24 h 07/29/2023 11:44 AM CDT DTL Predicted Range 2563-66564 mg/24 h 07/29/2023 11:44 AM CDT DTL Comment Micro done on <10 mL 07/29/2023 1:01 PM CDT DTL Urine (Urine, Midstream) 07/29/2023 10:27 AM CDT 07/29/2023 10:35 AM CDT Sera Hyman M.D., Ph.D. 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 [address] [place] [phone] PCP - General Internal Medicine 11/23/17 documented as of this encounter
--- OUTSIDE RECORDS SUMMARY | 2023-08-16 13:56 | XMS_ITS | Encounter Summary ---
Author Name Unknown Organization [facility] Address [address] [place] [address] Care Team Providers Care Wrapper Layer Name Role Phone Clover Delaney M.D. Primary Care Provider +1- [phone] Reason for Referral * Outpatient (Routine) - Authorized Specialty Diagnoses / Procedures Referred By Contac t Referred To Contact Diagnoses Preoperative Exam Procedures ECG 12 Lead Sera Casiano M.D., Ph.D. 200 [place] [address] [facility] Referral ID Status Reason Start Date Expiration Date V isits Requested Visits Authorized [id number] Authorized 08/05/2023 08/04/2024 1 1 Reason for Visit * Appointment Request (Routine) - Closed Specialty Diagnoses / Procedures Referred By Yenny t Referred To Contact Nephrology and Hypertension Referral ID Status Reason Start Date Expiration Date Visits Re quested Visits Authorized [id number] Closed 07/03/2023 07/02/2024 1 1 Encounter Details Date Type Department Care Team (Latest Contact Info) Description 08/05/2023 4:00 PM CDT External Outreach Division of Nephrology and Hypertension in [place], [place] 200 [place] [phone] Sera Casiano M.D., Ph.D. 200 [place] [address] Chronic Kidney Disease Stage 5 Glomerular Filtration Rate Less Than 15 (HCC) (Primary Dx); Preoperative Exam; Hypertension And Chronic Kidney Disease Stage 5 (HCC) Social History Tobacco Use Types Packs/Day [...] any clubs o r organizations such as christian groups, unions, fraternal or athletic groups, or [...] Answer Date Recorded PHQ-2 Score 2 05/28/2023 [facility]at ional Health - [...] Sex Assigned at Male 05/13/2021 10:11 AM ECOMMERCE MARKETING SPECIALIST Gender Identity Male 11/02/2017 7:22 PM CDT Sexual Orientation Straight 11/02/2017 7: 22 PM CDT documented as of this encounter Progress Notes * Sera Casiano M.D., Ph.D. - 08/05/2023 4:00 PM CDT PROGRESS NOTE SUBJECTIVE CHIEF COMPLAINT / REASON FOR VISIT Follow up CKD 5 [facility] Outreach Visit Location: [facility] HISTORY OF PRESENT ILLNESS Philip Patel is a 77 y.o. male who is seen for follow up. Patient's shortness of breath has resolved. Lower extremity edema is improved but remains present. No signs of uremia. He reports good urinary output. His BP at home ranges in the 170s/90s but in clinic it is usually in the 180s-200s/60s. We had increased doxazosin to 4 mg night time during his last visit. BP was still uncontrolled, therefore he was started on clonidine after our last visit and has tolerated it well. OBJECTIVE 180/60 pulse 67 PHYSICAL EXAMINATION Physical Exam Lungs are clear to auscultation (he had rhonchi previously). No signs of uremia, no asterixis. Lower extremity edema 3+ DIAGNOSTICS I have reviewed available labs in detail with patient. ASSESSMENT / PLAN #1 Preoperative Exam #2 Chronic Kidney Disease Stage 5 Glomerular Filtration Rate Less Than 15 (HCC) We discussed his CKD status, and risk of dialysis in the near future. He does not present signs of uremia, and would like to continue to close monitor and wait. We will continue with close monitoring. Low potassium diet. Rechecked potassium level is at goal BP device has been validated (nurse visit) Increase dose of clonidine to 0.2 mg BID and increase torsemide to 60 mg daily. Continue to monitor your BP Vascular access scheduled for August. Preop done today, pending EKG to be done next week. Continue Aranesp and Iron for anemia management Return visit in August at [facility]. Jessica Hyman M.D., Ph.D. * Sera Casiano M.D., Ph.D. - 08/05/2023 4:00 PM CDT LEXI for DIALYSIS ACCESS PROCEDURE (To be done within 3 months prior to the planned procedure) [x] Patient medically stable for his planned surgery [] Patient not medically stable for surgery Comments: He is currently at his baseline. No shortness of breath. Uncontrolled hypertension, antihypertensive therapy is being adjusted. Increased clonidine and torsemide during his visit today. EKG has been ordered and pending, anticipating to be normal, he may proceed with surgery if EKG is unremarkable. Anticoagulation/blood thinner Instruction (if applicable): No For Diabetics Last HbA1c (required within 3 months of the procedure): Lab Results Component Value Date HGBA1C 6.8 (H) 03/30/2023 Diabetic Instruction (if applicable): Continue weekly Mounjaro Serum Potassium - Required within 1 week of the procedure for non-dialysis patient [goal: 5.2 mEq/L or less] Plan to repeat Potassium on 09/02/2023 [facility] - Required the day of the procedure for dialysis patients with history of hyperkalemia Lab Results Component Value Date KSERUM 4.2 07/29/2023 CBC and Electrolytes (Required within 3 months): Reviewed EKG (not required unless > 60 y/o or if clinically indicated): Ordered and pending for next week documented in this encounter Plan of Treatment Upcoming Encounters Date Type Department Care Team (Latest Contact Info) Description 08/19/2023 3:00 PM CDT Clinical Communication Virtual Review in [place], [place] 200 [place] [address] 08/21/2023 1:30 PM CDT Comprehensive Visit Division of Pulmonary Medicine in [place], [place] [address] [place] [phone] Gallito Crabtree M.D. [address] [place] [phone] 09/08/2023 10:00 AM CDT Appointment Department of Laboratory Medicine in [place] [address] [place] [phone] Sera Casiano M.D., Ph.D. [address] [place] [phone] 09/08/2023 10:10 AM CDT Appointment Department of Laboratory Medicine in [place], [place] [address] [place] [phone] Sera Casiano M.D., Ph.D. [address] [place] [phone] 09/28/2023 8:15 AM CDT Hospital Encounter Outpatient Surgery Unit in [place], [place] [address] [place] [phone] Sandeep Kuo M.D., Ph.D. [address] [place] [phone] 09/28/2023 8:15 AM CDT - 09/28/2023 11:06 AM CDT Surgery [facility] [address] [place] [address] Sandeep Kuo M.D., Ph.D. [address] [place] [phone] CREATION FISTULA BRACHIOCEPHALIC ARTERIOVENOUS Scheduled Orders Name Type Priority Associated Diagnoses Orde r Schedule ECG 12 Lead ECG Routine Preoperative Exam Expected: 08/05/2023, Expires: 11/03/2024 CBC with Differential, Blood Lab Routine Chronic Kidney Disease Stage 5 Glomerular Filtration Rate Less Than 15 (HCC) Expected: 09/02/2023 (Approximate), Expires: 11/03/2024 Cystatin C with Estimated GFR Lab Routine Chronic Kidney Disease Stage 5 Glomerular Filtration Rate Less Than 15 (HCC) Expected: 09/02/2023 (Approximate), Expires: 11/03/2024 Ferritin Lab Routine Chronic Kidney Disease Stage 5 Glomerular Filtration Rate Less Than 15 (HCC) Expected: 09/02/2023, Expires: 11/03/2024 Iron and Total Iron-Binding Capacity Lab Routine Chronic Kidney Disease Stage 5 Glomerular Filtration Rate Less Than 15 (HCC) Expected: 09/02/2023, Expires: 11/03/2024 Renal Function Panel Lab Routine Chronic Kidney Disease Stage 5 Glomerular Filtration Rate Less Than 15 (HCC) Expected: 09/02/2023 (Approximate), Expires: 11/03/2024 Scheduled Procedures Name Priority Associated Diagnoses Date/Ti me 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 [address] [place] [phone] PCP - General Internal Medicine 11/23/17 documented as of this encounter
--- OUTSIDE RECORDS SUMMARY | 2023-08-16 13:57 | XMS_ITS | Encounter Summary ---
Author Name Unknown Organization [facility] Address [address] [place] [address] Care Team Providers Care Senior Microsoft Consultant Name Role Phone Clover Delaney M.D. Primary Care Provider [phone]- [phone] Encounter Details Date Type Department Care Team (Late st Contact Info) Description 07/17/2023 Orders Only Division of Nephrology and Hypertension in [place], [place] [address] [place] [address] Sera Casiano M.D., Ph.D. [address] [place] [address] Social History Tobacco Use Types Packs/Day Years [...] Answer Date Recorded PHQ-2 Score 2 05/28/2023 [facility] of Occupat ional Health - [...] Sex Assigned at Male 05/13/2021 10:11 AM COMMODITY SPECIALIST Gender Identity Male 11/02/2017 7:22 PM CDT Sexual Orientation Straight 11/02/2017 7: 22 PM CDT documented as of this encounter Plan of Treatment Upcoming Encounters Date Type Department Care Team (Latest Contact Info) Description 08/19/2023 3:00 PM CDT Clinical Communication Virtual Review in [place], [place] [address] [place] [address] 08/21/2023 1:30 PM CDT Comprehensive Visit Division of Pulmonary Medicine in [place], [place] [address] [place] [phone] Gallito Crabtree M.D. [address] [place] [phone] 09/08/2023 10:00 AM CDT Appointment Department of Laboratory Medicine in [place], [place] [address] [place] [phone] Sera Casiano M.D., Ph.D. [address] [place] [phone] 09/08/2023 10:10 AM CDT Appointment Department of Laboratory Medicine in [place], [place] [address] [place] [address] Sera Casiano M.D., Ph.D. [address] [place] [phone] 09/28/2023 8:15 AM CDT Hospital Encounter Outpatient Surgery Unit in [place], [place] [address] [place] [phone] Sandeep Kuo M.D., Ph.D. [address] [place] [phone] 09/28/2023 8:15 AM CDT - 09/28/2023 11:06 AM CDT Surgery [facility] [address] [place] [address] Sandeep Kuo M.D., Ph.D. 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 [address] [place] [phone] PCP - General Internal Medicine 11/23/17 documented as of this encounter
--- OUTSIDE RECORDS SUMMARY | 2023-08-16 13:57 | XMS_ITS | Encounter Summary ---
Author Name Unknown Organization [facility] Address [address] [place] [id number] Care Team Providers Care Gas Engine Operator Compressors Name Role Phone Clover Delaney M.D. Primary Care Provider +1- [phone] Reason for Visit * Outpatient (Routine) - Closed Specialty Diagnoses / Procedures Referred By Yenny t Referred To Contact Nutrition Diagnoses Chronic Kidney Disease Stage 5 Glomerular Filtration Rate Less Than 15 (HCC) Sera Casiano M.D., Ph.D. [address] [place] [phone] [facility] Referral ID Status Reason Start Date Expiration Date Visits Re quested Visits Authorized [id number] Closed 06/26/2023 12/25/2024 1 1 Encounter Details Date Type Department Care Team (Latest Contact Info) Description 07/10/2023 1:00 PM CDT Comprehensive Visit Division of Nephrology and Hypertension in [address] [place] [phone] Sera Casiano M.D., Ph.D. [address] [place] [phone] Elana Almonte, RDN, LD [address] [place] [address] [phone] Chronic Kidney Disease Stage 5 Glomerular Filtration Rate Less Than 15 (HCC) Social History Tobacco Use Types Packs/Day [...] Date Recorded PHQ-2 Score 2 05/28/2023 [facility] - Occupational [...] Sex Assigned at Male 05/13/2021 10:11 AM PICK PULLING MACHINE OPERATOR Gender Identity Male 11/02/2017 7:22 PM CDT Sexual Orientation Straight 11/02/2017 7: 22 PM CDT documented as of this encounter Last Filed Vital Signs Vital Sign Reading Time Taken Comments Blood Pressure - - Pulse - - Temperature - - Respiratory Rate - - Oxygen Saturation - - Inhaled Oxygen Concentration - - Weight 157 kg (346 lb 2 oz) 07/10/2023 1:33 PM C DT Height 176.9 cm (5' 9.65) 07/10/2023 1:33 PM CD T Body Mass Index 50.17 07/10/2023 1:33 PM CDT documented in this encounter Progress Notes * Elana Almonte, RDN, LD - 07/10/2023 1:00 PM CDT CHIEF COMPLAINT/REASON FOR VISIT MNT for CKD stage 5 Met with patient and spouse [id number] HISTORY OF PRESENT ILLNESS Pertinent PMH: HTN, DM, h/o colon cancer ASSESSMENT Relevant Social and Food/Nutrition Related History: Philip Raygoza Amanda reports he is eating no processed foods, they are label reading. He eats no tomatoes, or high potassium foods and is now watching his phosphorus intake. does the cooking andis interested in meal plans, recipes and possibly meal delivery services that may be helpful in regards to following the renal diet. He started on Mounjaro a week ago and has had a decreased appetiteever since. GI concerns: decrease appetitie, no other sx Weight changes: stable Nutrition Questionnaire Typical Daily Intake Breakfast: Perham 1 slice, one egg and butter and jam Morning Snack: None Noon Meal: Soup a cup and 1/2 sandwich Afternoon Snack: 1oz cheese and ritz crackers 7 Evening meal: Chicken breast, veggie Evening Snack: One cookie What are three of your most frequently consumed beverages?: Water, coffee and crystal light How much fluid do you drink in a day? (One cup is 8 ounces) : 41-50 ounces Beverage intake: Water, coffee and crystal light Vitamins/Supplement Intake: Yes D3, vitron-c, B-12, MVI Salt/Seasoning Use: no salt use Physical Activity: Reports doing walking for 0-15 minutes an average of None per week Nutrition Focused Physical Findings Morbid obesity BMI> 40 Pertinent labs: K+: 4.3 P: 4.9 (S), 5.6 (P) Cystatin C:4.64 eGFR by cystatin: 9 Pertinent Medications: Mounjaro, insulin, prednisone Weight History Ht Readings from Last 1 Encounters: 06/29/23 176.9 cm Wt Readings from Last 1 Encounters: 06/29/23 (!) 157 kg BMI Readings from Last 1 Encounters: 06/29/23 50.14 kg/m?? Estimation of Nutritional Needs: PROTEIN Weight:93 kg (adjusted body weight (due to obesity)) Protein Range: 0.6 to 0.8 grams/kg Protein Goal: 60 to 75 grams per day NUTRITION DIAGNOSIS Food- and nutrition-related knowledge deficit related to limited exposure to specific nutritional guidelines for CKD as evidenced by patient questions and diet recall. Nutrition Prescription/Recommendation 2784-1906 mg sodium; 75 g protein INTERVENTION Counseling: Discussed limiting sodium intake to 7136-0999 mg per day Encouraged continuing to limit processed foods Encouraged incorporating more plant based proteins into diet Discussed fluid intake Discussed adding more fruits and veggies into diet Education Materials provided: Guidelines on Controlling Sodium; Calorie and Protein Content of common Foods; Making Good Phosphorus Food Choices; Guidelines for a Potassium-Controlled Diet; kidney friendly shopping guide Also See Patient Education Record for information. MONITORING AND EVALUATION: Nutrition parameter to monitor: Food intake Desired Outcome: Maintain nutrition related lab values within target range Plan/Patient Goal(s): 1. 6858-6717 mg sodium 2. 75 gm total protein from both animal and plant-based sources 3. Avoid processed food 4.. At least 5+ fruits and vegetables daily FOLLOW UP PLAN: Provided name and phone number if questions should arise Time spent with patient (minutes): 45 documented in this encounter Plan of Treatment Upcoming Encounters Date Type Department Care Team (Latest Contact Info) Description 08/19/2023 3:00 PM CDT Clinical Communication Virtual Review in 200 [place] [phone] 08/21/2023 1:30 PM CDT Comprehensive Visit Division of Pulmonary Medicine in [address] [place] [phone] Gallito Crabtree M.D. [address] [place] [phone] 09/08/2023 10:00 AM CDT Appointment Department of Laboratory Medicine in [place] [address] [place] [phone] Sera Casiano M.D., Ph.D. [address] [place] [phone] 09/08/2023 10:10 AM CDT Appointment Department of Laboratory Medicine in [place] [address] [place] [phone] Sera Casiano M.D., Ph.D. [address] [place] [phone] 09/28/2023 8:15 AM CDT Hospital Encounter Outpatient Surgery Unit in [address] [place] [phone] Sandeep Kuo M.D., Ph.D. [address] [place] [phone] 09/28/2023 8:15 AM CDT - 09/28/2023 11:06 AM CDT Surgery [facility] [address] [place] [phone] Sandeep Kuo M.D., Ph.D. 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 [address] [place] [phone] PCP - General Internal Medicine 11/23/17 documented as of this encounter
--- OUTSIDE RECORDS SUMMARY | 2023-08-16 13:57 | XMS_ITS | Encounter Summary ---
Author Name Unknown Organization [facility] Address [address] [place] [id number] Care Team Providers Care Climbing Guide Name Role Phone Clover Delaney M.D. Primary Care Provider [phone]- [phone] Reason for Visit * Reason Comments home blood pressure monitor check * Outpatient (Routine) - Closed Specialty Diagnoses / Procedures Referred By Contanthony t Referred To Contact Nephrology and Hypertension Sera Casiano M.D., Ph.D. [address] [place] [phone] [facility] Referral ID Status Reason Start Date Expiration Date Visits Re quested Visits Authorized [id number] Closed 06/26/2023 12/25/2024 1 1 Encounter Details Date Type Department Care Team (Late st Contact Info) Description 07/10/2023 2:30 PM CDT Nurse Only Division of Nephrology and Hypertension in [place], [place] [address] [place] [phone] Sera Casiano M.D., Ph.D. [address] [place] [address] [phone] Aislinn Sharma R.N. [address] [place] [phone] home blood pressure monitor check Social History Tobacco Use Types Packs/Day Years [...] 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 - 07/10/2023 2:30 PM CDT Riccardo brought their OMRON home blood pressure monitoring device to the visit today for accuracy test. The patient's home device uses a upper arm cuff location. The left arm was used for measurement. The results were all differences between comparisons were 5 mmHg or less, the comparisons are acceptable and the device is considered accurate. The manual blood pressure readings taken during the test were as follows: BP Readings from Last 1 Encounters: 07/10/23 1505 (!) 78 07/10/23 1504 (!) 203/86 07/10/23 1501 (!) Denies signs/symptoms of stroke or heart attack. We reviewed these symptoms and to call 911 if theyoccur. He states his home blood pressure readings run 170- 182/76 and usually runs 20 points higher in the clinic setting. documented in this encounter Plan of Treatment Upcoming Encounters Date Type Department Care Team (Latest Contact Info) Description 08/19/2023 3:00 PM CDT Clinical Communication Virtual Review in [address] [phone] 08/21/2023 1:30 PM CDT Comprehensive Visit Division of Pulmonary Medicine in [place], [place] [address] [place] [phone] Gallito Crabtree M.D. [address] [place] [phone] 09/08/2023 10:00 AM CDT Appointment Department of Laboratory Medicine in [place] [address] [place] [phone] Sera Casiano M.D., Ph.D. [address] [place] [phone] 09/08/2023 10:10 AM CDT Appointment Department of Laboratory Medicine in [place] [address] [place] [phone] Sera Casiano M.D., Ph.D. [address] [place] [phone] 09/28/2023 8:15 AM CDT Hospital Encounter Outpatient Surgery Unit in [place], [place] [address] [place] [phone] Sandeep Kuo M.D., Ph.D. [address] [place] [phone] 09/28/2023 8:15 AM CDT - 09/28/2023 11:06 AM CDT Surgery [facility] [address] [place] [address] Sandeep Kuo M.D., Ph.D. [address] [place] [phone] CREATION FISTULA BRACHIOCEPHALIC ARTERIOVENOUS Scheduled Procedures Name Priority Associated Diagnoses Date/Ti me CREATION 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) 09/28/2023 8:15 AM CDT documented as of this encounter Visit Diagnoses Diagnosis Hypertension And Chronic Kidney Disease Stage 5 (HCC)- Primary Failure Renal End Stage (HCC) documented in this encounter Additional Health Concerns Assessment Noted Time PHQ-9 Depression Total Score: 4 06/06/19 23 2:04 PM SENIOR NATIONAL ACCOUNT MANAGER documented as of this encounter Care Teams Climbing Guide Relationship Specialty Start Date End Date Clover Delaney M.D. [address] [place] [phone] PCP - General Internal Medicine 11/23/17 documented as of this encounter
--- OUTSIDE RECORDS SUMMARY | 2023-08-16 13:57 | XMS_ITS | Encounter Summary ---
Author Name Unknown Organization [facility] Address [address] [place] [phone] Care Team Providers Care Manager Of It Name Role Phone Clover Delaney M.D. Primary Care Provider [phone]- [phone] Reason for Visit * Outpatient (Routine) - Closed Specialty Diagnoses / Procedures Referred By Contanthony t Referred To Contact Nephrology and Hypertension Sera Casiano M.D., Ph.D. [address] [place] [phone] [facility] Referral ID Status Reason Start Date Expiration Date Visits Re quested Visits Authorized [id number] Closed 06/26/2023 12/25/2024 1 1 Encounter Details Date Type Department Care Team (Late st Contact Info) Description 07/17/2023 1:00 PM CDT Virtual Visit Division of Nephrology and Hypertension in [place], [place] [address] [place] [phone] Sera Casiano M.D., Ph.D. [address] [place] [address] [phone] Kanwal Roberts R.N. [address] [place] [phone] Chronic Kidney Disease Stage 5 Glomerular Filtration [...] Answer Date Recorded PHQ-2 Score 2 05/28/2023 [facility] - Occupational Stress Questionnaire Answer [...] Sex Assigned at Male 05/13/2021 10:11 AM POWER TRUCK DRIVER Gender Identity Male 11/02/2017 7:22 PM CDT Sexual Orientation Straight 11/02/2017 7: 22 PM CDT documented as of this encounter Progress Notes * Kanwal Roberts, RMonster. - 07/17/2023 1:00 PM CDT REFERRAL Sera Casiano M.D., Ph.D. CHIEF COMPLAINT/PURPOSE OF VISIT REASON FOR REFERRAL: Needs education and evaluation for permanent vascular access for dialysis PERTINENT PROCEDURAL HISTORY: 77 y.o., male, referred for education and evaluation for permanent vascular access for dialysis. 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 His eGFR by Cystatin C is 9 mL/min. (He is not yet on dialysis, but will likely do dialysis at [facility]). He next sees CKD provider on 08/05/2023. Significant Medical History: obesity, colon malignant neoplasm, DM2, KIMBER, etc PACEMAKER: None noted. DIABETES: DM2: Mounjaro injectable ANTICOAGULATION: Takes Aspirin only. LABORATORY RESULTS: Please see [facility] for current labs. BMI: Body mass index is 50.17 kg/m??. VEIN MAPPING: Scheduled prior to consult. ECHOCARDIOGRAM: N/A PHONE ASSESSMENT Patient is right handed. He has no hand complaints. He is a diabetic and checks his blood sugars. Iinstructed him once the fistula side is known to not check blood sugars on that side anymore. IMPRESSION/REPORT/PLAN I reviewed the following booklets with the patient over the phone: Hemodialysis Catheters ([id number]),Hemodialysis Fistula and Graft ([id number]). I gave him an red/orange Save your Vein bracelet. Discussed with the patient, not able to do PD due to likely adhesion issues. All questions were answered. Surgeon: Patient will be seen by Dr. Kuo Plan: Consult on 07/29/23. documented in this encounter Plan of Treatment Upcoming Encounters Date Type Department Care Team (Latest Contact Info) Description 08/19/2023 3:00 PM CDT Clinical Communication Virtual Review in [place], [place] 200 [place] [address] 08/21/2023 1:30 PM CDT Comprehensive Visit Division of Pulmonary Medicine in [place], [place] [address] [place] [phone] Gallito Crabtree M.D. [address] [place] [phone] 09/08/2023 10:00 AM CDT Appointment Department of Laboratory Medicine in [place] [address] [place] [address] Sera Casiano M.D., Ph.D. [address] [place] [phone] 09/08/2023 10:10 AM CDT Appointment Department of Laboratory Medicine in [place] [address] [place] [phone] Sera Casiano M.D., Ph.D. [address] [place] [phone] 09/28/2023 8:15 AM CDT Hospital Encounter Outpatient Surgery Unit in [place], [place] [address] [place] [phone] Sandeep Kuo M.D., Ph.D. [address] [place] [phone] 09/28/2023 8:15 AM CDT - 09/28/2023 11:06 AM CDT Surgery [facility] [address] [place] [address] Sandeep Kuo M.D., Ph.D. [address] [place] [phone] CREATION FISTULA BRACHIOCEPHALIC ARTERIOVENOUS Scheduled Procedures Name Priority Associated Diagnoses Date/Ti me CREATION 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) 09/28/2023 8:15 AM CDT documented as of this encounter Visit Diagnoses Diagnosis Chronic Kidney Disease Stage 5 Glomerular Filtration Rate Less Than 15 (HCC)- Primary Failure Renal End Stage (HCC) documented in this encounter Additional Health Concerns Assessment Noted Time PHQ-9 Depression Total Score: 4 06/06/19 23 2:04 PM POWER TRUCK DRIVER documented as of this encounter Care Teams Manager Of It Relationship Specialty Start Date End Date Clover Delaney M.D. [address] [place] [phone] PCP - General Internal Medicine 11/23/17 documented as of this encounter
--- OUTSIDE RECORDS SUMMARY | 2023-08-16 13:57 | XMS_ITS | Encounter Summary ---
Author Name Unknown Organization [facility] Address [address] [place] [address] Care Team Providers Care Ammunition Storage Superintendent Name Role Phone Clover Delaney M.D. 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 [address] [place] [phone] [facility] Referral ID Status Reason Start Date Expiration Date V isits Requested Visits Authorized [id number] Authorized 06/30/2023 12/29/2024 1 1 LOADER OPERATOR Encounter Details Date Type Department Care Team (Late st Contact Info) Description 06/30/2023 Orders Only Division of Nephrology and Hypertension in [place], [place] [address] [place] [address] Sera Casiano M.D., Ph.D. 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 Never 07/28/2022 Do you belong to [...] Answer Date Recorded PHQ-2 Score 2 05/28/2023 [facility] [...] Sex Assigned at Male 05/13/2021 10:11 AM YARD LOADER OPERATOR Gender Identity Male 11/02/2017 7:22 PM CDT Sexual Orientation Straight 11/02/2017 7: 22 PM CDT documented as of this encounter Plan of Treatment Upcoming Encounters Date Type Department Care Team (Latest Contact Info) Description 08/19/2023 3:00 PM CDT Clinical Communication Virtual Review in [place], [place] [address] [place] [address] 08/21/2023 1:30 PM CDT Comprehensive Visit Division of Pulmonary Medicine in [place], [place] [address] [place] [phone] Gallito Crabtree M.D. [address] [place] [phone] 09/08/2023 10:00 AM CDT Appointment Department of Laboratory Medicine in [place], [place] [address] [place] [address] Sera Casiano M.D., Ph.D. [address] [place] [phone] 09/08/2023 10:10 AM CDT Appointment Department of Laboratory Medicine in [address] [place] [address] Sera Casiano M.D., Ph.D. [address] [place] [address] 09/28/2023 8:15 AM CDT Hospital Encounter Outpatient Surgery Unit in [place], [place] [address] [place] [address] Sandeep Kuo M.D., Ph.D. [address] [place] [phone] 09/28/2023 8:15 AM CDT - 09/28/2023 11:06 AM CDT Surgery [facility] OR [address] [place] [address] Sandeep Kuo M.D., Ph.D. 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 Hypertrophic changes in the spine. Mild degenerative changes bothshoulders. IMPRESSION: 1. Stable nodule in the right middle lobe should be benign. 2. New increased attenuation in a left renal cyst likely due to intervalhemorrhage. Sera Hyman M.D., Ph.D. IMG CT PROCEDURES * (ABNORMAL) Urinalysis, with Microscopic: Urine, Midstream [...] 07/29/2023 11:44 AM CDT DTL Predicted Range [id number] mg/24 h 07/29/2023 11:44 AM CDT DTL Comment Micro done on <10 mL 07/29/2023 1:01 PM CDT DTL Urine (Urine, Midstream) 07/29/2023 10:27 AM CDT 07/29/2023 10:35 AM CDT Sera Hyman M.D., Ph.D. LAB UR INE ORDERABLES Performing Organization Address City/[facility]/ZIP Co de Phone Number [facility] [address] 200 [place] [address] * (ABNORMAL) Uric Acid (07/29/2023 10:17 AM CDT) Uric Acid, S 11.2(H) 3.7 - 8.0 mg/dL 07/29/2023 12:32 PM CDT DTL Blood (Blood, Venous) 07/29/2023 10:17 AM CDT 07/29/2023 10:55 AM CDT Sera Hyman M.D., Ph.D. LAB BL OOD ADD-ON [facility] [address] 200 [place] [address] * Phosphorus Inorganic (07/29/2023 10:17 AM CDT) Phosphorus (Inorganic), S 4.5 2.5 - 4.5 mg/dL 07/29/2023 12:32 PM CDT DTL Blood (Blood, Venous) 07/29/2023 10:17 AM CDT 07/29/2023 10:55 AM CDT Sera Hyman M.D., Ph.D. LAB BL OOD ADD-ON Performing Organization Address City/[facility]/ZIP Co de Phone Number [facility] [address] 200 [place] [address] * (ABNORMAL) Glucose, Fasting (07/29/2023 10:17 AM CDT) Pathologist [facility] Glucose, P 256(H) 70 - 100 mg/dL 07/29/2023 11:15 AM CDT DTL Last Intake 16 hr 07/29/2023 10:52 AM CDT DTL Blood (Blood, Venous) 07/29/2023 10:17 AM CDT 07/29/2023 10:52 AM CDT Sera Hyman M.D., Ph.D. LAB BL OOD NON ADD-ON Performing Organization Address City/[facility]/ZIP Co de Phone Number [facility] 200 [place], [place] [phone] [place] [address] 200 [place] [address] * CRP (C-Reactive Protein) (07/29/2023 10:17 AM CDT) C-Reactive Protein (CRP), S <3.0 <5.0 mg/L 07/29/2023 12:32 PM CDT DTL Blood (Blood, Venous) 07/29/2023 10:17 AM CDT 07/29/2023 10:55 AM CDT Sera Hyman M.D., Ph.D. LAB BL OOD ADD-ON [facility] [address] [place] [address], [facility] [address] [place] [address] * (ABNORMAL) Comprehensive Metabolic Panel (07/29/2023 10:17 AM CDT) [facility] Potassium, S 4.2 3.6 - 5.2 mmol/L [...] Hyman M.D., Ph.D. LAB BL OOD ADD-ON [facility] 200 [place] [address], [facility] 200 [place] [address] * (ABNORMAL) CBC with Differential, Blood (07/29/2023 10:17 AM CDT) Pathologist [facility] Hemoglobin 8.2(L) 13.2 - 16.6 g/dL 07/29/2023 [...] City/[facility]/ZIP Co de Phone Number [facility] [address] [place] [address], [facility] DTL [facility] [address] [place] [address] [facility] [address] [place] [address] * ANCA (Antineutrophil Cytoplasmic Antibodies) Vasculitis Panel (07/29/2023 10:17 AM CDT) Pathologist [facility] Myeloperoxidase Ab, S <0.2 <0.4 (Negative ) U 07/29/2023 4:45 PM CDT [facility] Protein[facility] 3 Ab (PR3), S <0.2 <0.4 (Negative ) U 07/29/2023 4:45 PM CDT [facility] Blood (Blood, Venous) 07/29/2023 10:17 AM CDT 07/29/2023 2:52 PM CDT Sera Hyman M.D., Ph.D. LAB BL OOD ADD-ON [facility] [address] [place] [address] [facility] [address] [place] [address] * Pulmonary Function Tests (07/29/2023 9:02 AM CDT) FVC 2.15 L 07/29/2023 10:32 AM CDT [facility] FEV1 1.56 L 07/29/2023 10:32 AM CDT [facility] FEV1/FVC 72.56 % 07/29/2023 10:32 AM CDT [facility] XZI67-15% 1.03 L/s 07/29/2023 10:32 AM CDT [facility] PEF PRE 5.91 L/s 07/29/2023 10:32 AM CDT [facility] PIF PRE 3.35 L/s 07/29/2023 10:32 AM CDT [facility] FEF 50 % FIF 50 PRE 54.00 % 07/29/2023 10:32 AM CDT [facility] FET PRE 9.49 sec 07/29/2023 10:32 AM CDT [facility] DLCO 10.65 ml/(min*mm Hg) 07/29/2023 10:32 AM CDT [facility] DLCOc 14.91 ml/(min*mm Hg) 07/29/2023 10:32 AM CDT [facility] HB 7.40 g(Hb)/dL 07/29/2023 10:32 AM CDT [facility] VA 4.05 L 07/29/2023 10:32 AM CDT [facility] PulseRest 50.00 1/min 07/29/2023 10:32 AM CDT [facility] TLC 4.43 L 07/29/2023 10:32 AM CDT [facility] FRCPLETH PROVBASE 2.72 L 07/29/2023 10:32 AM CDT [facility] RV 1.96 L 07/29/2023 10:32 AM CDT [facility] RV % TLC PRE 44.12 % 07/29/2023 10:32 AM CDT [facility] 07/29/2023 9:02 AM CDT Impressions [facility] - 07/29/2023 10:32 AM CDT Abnormal study. [...] Sera Hyman M.D., Ph.D. 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 [address] [place] [phone] PCP - General Internal Medicine 11/23/17 documented as of this encounter
--- OUTSIDE RECORDS SUMMARY | 2023-08-16 13:57 | XMS_ITS | Encounter Summary ---
Author Name Unknown Organization [facility] Address [address] [place] [address] Care Team Providers Care Dietitian Therapeutic Name Role Phone Clover Delaney M.D. Primary Care Provider [phone] Encounter Details Date Type Department Care Team (Late st Contact Info) Description 06/30/2023 Orders Only Division of Nephrology and Hypertension in [place], [place] [address] [place] [address] Sera Casiano M.D., Ph.D. 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) (Primary [...] Answer Date Recorded PHQ-2 Score 2 05/28/2023 [facility] [place] [facility] - Occupational Stress [...] Assigned at Male 05/13/2021 10:11 AM CONSTRUCTION ASSISTANT Gender Identity Male 11/02/2017 7:22 PM CDT Sexual Orientation Straight 11/02/2017 7: 22 PM CDT documented as of this encounter Plan of Treatment Upcoming Encounters Date Type Department Care Team (Latest Contact Info) Description 08/19/2023 3:00 PM CDT Clinical Communication Virtual Review in [place], [place] 200 [place] [address] 08/21/2023 1:30 PM CDT Comprehensive Visit Division of Pulmonary Medicine in [place], [place] [address] [place] [phone] Gallito Crabtree M.D. [address] [place] [phone] 09/08/2023 10:00 AM CDT Appointment Department of Laboratory Medicine in [place] [address] [place] [phone] Sera Casiano M.D., Ph.D. [address] [place] [phone] 09/08/2023 10:10 AM CDT Appointment Department of Laboratory Medicine in [place] [address] [place] [phone] Sera Casiano M.D., Ph.D. [address] [place] [phone] 09/28/2023 8:15 AM CDT Hospital Encounter Outpatient Surgery Unit in [place], [place] [address] [place] [phone] Sandeep Kuo M.D., Ph.D. [address] [place] [phone] 09/28/2023 8:15 AM CDT - 09/28/2023 11:06 AM CDT Surgery [facility] OR [address] [place] [address] Sandeep Kuo M.D., Ph.D. 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 [address] [place] [address] PCP - General Internal Medicine 11/23/17 documented as of this encounter
--- OUTSIDE RECORDS SUMMARY | 2023-08-16 13:57 | XMS_ITS | Encounter Summary ---
Author Name Unknown Organization [facility] Address [address] [place] [address] Care Team Providers Care Mri Assistant Name Role Phone Clover Delaney M.D. Primary Care Provider [phone] Reason for Visit * Reason Comments Med Refill Encounter Details Date Type Department Care Team (Late st Contact Info) Description 07/11/2023 Refill Division of Nephrology and Hypertension in [place], [place] [address] [place] [phone] Mónica Portillo, TRIXIE, C.N.P., M.S. 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 [address] [place] [phone] 09/08/2023 10:00 AM CDT Appointment Department of Laboratory Medicine in [place] [address] [place] [phone] Sera Casiano M.D., Ph.D. [address] [place] [phone] 09/08/2023 10:10 AM CDT Appointment Department of Laboratory Medicine in [place], [place] [address] [place] [phone] Sera Casiano M.D., Ph.D. [address] [place] [phone] 09/28/2023 8:15 AM CDT Hospital Encounter Outpatient Surgery Unit in [place], [place] [address] [place] [phone] Sandeep Kuo M.D., Ph.D. [address] [place] [phone] 09/28/2023 8:15 AM CDT - 09/28/2023 11:06 AM CDT Surgery [facility]ST [facility] MAIN OR [address] [place] [address] Sandeep Kuo M.D., Ph.D. [address] [place] [phone] CREATION FISTULA BRACHIOCEPHALIC ARTERIOVENOUS Scheduled Procedures Name Priority Associated Diagnoses Date/Ti me CREATION 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) 09/28/2023 8:15 AM CDT documented as of this encounter Visit Diagnoses Not on filedocumented in this encounter Additional Health Concerns Assessment Noted Time PHQ-9 Depression Total Score: 4 06/06/19 23 2:04 PM TOBACCO WRAPPING MACHINE TENDER documented as of this encounter Care Teams Mri Assistant Relationship Specialty Start Date End Date Clover Delaney M.D. [address] [place] [address] PCP - General Internal Medicine 11/23/17 documented as of this encounter
--- OUTSIDE RECORDS SUMMARY | 2023-08-16 13:57 | XMS_ITS | Encounter Summary ---
Author Name Unknown Organization [facility] Address [address] [place] [address] Care Team Providers Care Hazmat Cdl A Driver Name Role Phone Clover Delaney M.D. Primary Care Provider [phone] Encounter Details Date Type Department Care Team (Latest Contact Info) Description 07/06/2023 9:06 AM CDT - 07/06/2023 11:59 PM CDT Hospital Encounter Department of Laboratory Medicine in [address] [place] [phone] Sera Casiano M.D., Ph.D. [address] [place] [address] Hypertension And Chronic Kidney Disease Stage 5 (HCC); Proteinuria; 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 Discharge Disposition: Home or Self Care Social [...] any clubs o r organizations such as tenriism groups, unions, fraternal or athletic groups, or [...] Answer Date Recorded PHQ-2 Score 2 05/28/2023 [facility] Occup[facility] ional Health - Occupational Stress [...] Sex Assigned at Male 05/13/2021 10:11 AM HEEL SEAT FILLER Gender Identity Male 11/02/2017 7:22 PM CDT [...] Ultra-Fine Josefina Pen Needle 32 gauge x /32 needle USE TO INJECT ONCE DAILY 100 [...] by mouth daily. 90 capsule 1 06/05/2023 iron,carbonyl-vitamin C (VITRON-C) 65 mg iron- [address] tablet Take 65 mg of iron by mouth daily. Do not crush or chew. loperamide (IMODIUM A-D) 2 mg tablet Take 2 mg by mouth as needed. miscellaneous medical [place] [facility] [place] See Instructions, CPAP machine, mask 1 ea x 4 refills, headgear 1 ea x 2 refills, tubing 1 ea x 4 refills, filters 2 ea per month, tub 1 ea x 2 refills, mask seal 1 ea x 2 refills DX G47.33, length of need 99, 1 each, 0 Refill(s) 10/20/2016 miscellaneous medical [place] [facility] [place] Head Gear for CPAP Machine See Instructions, fax to patient at [phone], 1 each 01/17/2014 MULTIVITAMIN ORAL Daily Multiple [...] 6 mL 3 09/03/2023 09/02/2024 tirzepatide (Mounjaro) 2.5 mg/0.5 mL pen injector injectionIndications:Mor bid Obesity (HCC) Inject 0.5 mL (2.5 mg total) under the skin every 7 (seven) days for 4 doses. From week 1 to week 4. 2 mL 06/29/2023 tirzepatide (Mounjaro) 5 mg/0.5 mL pen injector [...] inject insulin daily 100 each 3 03/31/2022 irbesartan (AVAPRO) 75 mg tablet Take 1 tablet (75 mg total) by mouth daily. 90 tablet 3 07/29/2022 07/13/2023 torsemide (DEMADEX) 20 mg tablet Take 2 tablets (40 mg total) by mouth daily. 180 tablet 3 06/26/2023 08/05/2023 documented as of this encounter Plan of Treatment Upcoming Encounters Date Type Department Care Team (Latest Contact Info) Description 08/19/2023 3:00 PM CDT Clinical Communication Virtual Review in [place], [place] 200 [place] [address] 08/21/2023 1:30 PM CDT Comprehensive Visit Division of Pulmonary Medicine in [place], [place] [address] [place] [phone] Gallito Crabtree M.D. [address] [place] [phone] 09/08/2023 10:00 AM CDT Appointment Department of Laboratory Medicine in [place] [address] [place] [address] Sera Casiano M.D., Ph.D. [address] [place] [phone] 09/08/2023 10:10 AM CDT Appointment Department of Laboratory Medicine in [place], [place] [address] [place] [phone] Sera Casiano M.D., Ph.D. [address] [place] [phone] 09/28/2023 8:15 AM CDT Hospital Encounter Outpatient Surgery Unit in [place], [place] [address] [place] [phone] Sandeep Kuo M.D., Ph.D. [address] [place] [address] 09/28/2023 8:15 AM CDT - 09/28/2023 11:06 AM CDT Surgery [facility]IN OR [address] [place] [address] Sandeep Kuo M.D., Ph.D. 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 Higher concentrations [...] LAB BL OOD ADD-ON Performing Organization Address [facility] Co de Phone Number [facility] [address] [place] [address], [facility] in [place] [address] [place] [phone] * (ABNORMAL) Iron and Total Iron-Binding Capacity (07/06/2023 9:22 AM CDT) Iron 52 50 - 150 mcg/dL 07/06/2023 12:48 PM CDT [facility] Total Iron Binding Capacity 222(L) 250 - 400 mcg/dL 07/06/2023 12:48 PM CDT [facility] Percent Saturation 23 14 - 50 % 07/06/2023 12:48 PM CDT [facility] Blood (Blood, Venous) 07/06/2023 9:22 AM CDT 07/06/2023 11:51 AM CDT Sera Hyman M.D., Ph.D. LAB BL OOD ADD-ON Performing Organization Address City/[facility]/ZIP Co de Phone Number [facility] [address] [place] [address], [facility] R[facility] in [place] [address] [place] [address] * (ABNORMAL) CBC with Differential, Blood (07/06/2023 9:22 AM CDT) Hemoglobin 7.4(L) 13.2 - 16.6 g/dL 07/06/2023 12:56 PM CDT [facility] Hematocrit 24.4(L) 38.3 - 48.6 % 07/06/2023 12:56 PM CDT [facility] Erythrocytes 2.47(L) 4.35 - 5.65 x10(12)/L 07/06/2023 12:56 PM CDT [facility] MCV 98.8(H) 78.2 - 97.9 fL 07/06/2023 12:56 PM CDT [facility] RBC Distrib Width 15.2(H) 11.8 - 14.5 % 07/06/2023 12:56 PM CDT [facility] Platelet Count 169 135 - 317 x10(9)/L 07/06/2023 12:56 PM CDT [facility] Leukocytes 7.9 3.4 - 9.6 x10(9)/L 07/06/2023 12:56 PM CDT [facility] Neutrophils 6.54(H) 1.56 - 6.45 x10(9)/L 07/06/2023 12:56 PM CDT [facility] Lymphocytes 0.63(L) 0.95 - 3.07 x10(9)/L 07/06/2023 12:56 PM CDT [facility] Monocytes 0.58 0.26 - 0.81 x10(9)/L 07/06/2023 12:56 PM CDT [facility] Eosinophils 0.13 0.03 - 0.48 x10(9)/L 07/06/2023 12:56 PM CDT [facility] Basophils 0.04 0.01 - 0.08 x10(9)/L 07/06/2023 12:56 PM CDT [facility] Blood (Blood, Venous) 07/06/2023 9:22 AM CDT 07/06/2023 11:51 AM CDT Sera Can Hyman M.D., Ph.D. LAB BL OOD ADD-ON [facility] [address] [place] [address], [facility] [place] [address] * (ABNORMAL) Uric Acid (07/06/2023 9:22 AM CDT) Uric Acid, P 10.4(H) 3.7 - 8.0 mg/dL 07/06/2023 12:35 PM CDT [facility] Blood (Blood, Venous) 07/06/2023 9:22 AM CDT 07/06/2023 11:51 AM CDT Sera Hyman M.D., Ph.D. LAB BL OOD ADD-ON Performing Organization Address City/[facility]/ZIP Co de Phone Number [facility] [address] [place] [address], [facility] [place] [address] * (ABNORMAL) Cystatin C with Estimated GFR (07/06/2023 9:22 AM CDT) eGFR by Cystatin C 9(L) >60 mL/min/BSA [...] Hyman M.D., Ph.D. LAB BL OOD ADD-ON [facility] [address] [place] [address], [facility] [address] [place] [address] * (ABNORMAL) Renal Function Panel (07/06/2023 9:22 AM CDT) Potassium, P 4.3 3.6 - 5.2 mmol/L [...] Hyman M.D., Ph.D. LAB BL OOD ADD-ON [facility] [address] [place] [address], [facility] R[facility] in [place] [address] [place] [address] documented in this encounter Visit Diagnoses Diagnosis Hypertension And Chronic Kidney Disease Stage 5 (HCC) Proteinuria 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 Failure Renal End Stage (HCC) documented in this encounter Additional Health Concerns Assessment Noted Time PHQ-9 Depression Total Score: 4 06/06/19 23 2:04 PM HEEL SEAT FILLER documented as of this encounter Care Teams Hazmat Cdl A Driver Relationship Specialty Start Date End Date Clover Delaney M.D. [address] [place] [phone] PCP - General Internal Medicine 11/23/17 documented as of this encounter
--- OUTSIDE RECORDS SUMMARY | 2023-08-16 13:57 | XMS_ITS | Encounter Summary ---
Author Name Unknown Organization [facility] Address [address] [place] [address] Care Team Providers Care Quality Manager Name Role Phone Clover Delaney M.D. Primary Care Provider [phone]- [phone] Encounter Details Date Type Department Care Team (Latest Contact Info) Description 07/06/2023 9:06 AM CDT - 07/06/2023 11:59 PM CDT Hospital Encounter Department of Laboratory Medicine in [address] [place] [phone] Sera Casiano M.D., Ph.D. [address] [place] [address] Hypertension And Chronic Kidney Disease Stage 5 [...] Answer Date Recorded PHQ-2 Score 2 05/28/2023 [facility] [place] of Occupat ional Health - Occupational Stress [...] Assigned at Male 05/13/2021 10:11 AM CLINICAL SERVICES ASSISTANT Gender Identity Male 11/02/2017 7:22 PM [...] by mouth as needed. miscellaneous medical supply [facility] CPAP Supplies See Instructions, CPAP machine, mask 1 ea x 4 refills, headgear 1 ea x 2 refills, tubing 1 ea x 4 refills, filters 2 ea per month, tub 1 ea x 2 refills, mask seal 1 ea x 2 refills DX G47.33, length of need 99, 1 each, 0 Refill(s) 10/20/2016 miscellaneous medical supply [facility] Head Gear for CPAP Machine See Instructions, fax to patient at [phone], 1 each 01/17/2014 MULTIVITAMIN ORAL Daily Multiple [...] PM CDT Clinical Communication Virtual Review in [place], [place] 200 [place] [address] 08/21/2023 1:30 PM CDT Comprehensive Visit Division of Pulmonary Medicine in [place], [place] [address] [place] [phone] Gallito Crabtree M.D. [address] [place] [phone] 09/08/2023 10:00 AM CDT Appointment Department of Laboratory Medicine in [place] [address] [place] [address] Sera Casiano M.D., Ph.D. [address] [place] [phone] 09/08/2023 10:10 AM CDT Appointment Department of Laboratory Medicine in [place], [place] [address] [place] [address] [phone] Sera Casiano M.D., Ph.D. [address] [place] [phone] 09/28/2023 8:15 AM CDT Hospital Encounter Outpatient Surgery Unit in [place], [place] [address] [place] [phone] Sandeep Kuo M.D., Ph.D. [address] [place] [address] 09/28/2023 8:15 AM CDT - 09/28/2023 11:06 AM CDT Surgery [facility] [address] [place] [address] Sandeep Kuo M.D., Ph.D. 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 LAB UR INE ORDERABLES Performing Organization Address City/[facility]/ZIP Co de Phone Number [facility] [address] [place] [address], [facility] [place] [address] * (ABNORMAL) Protein/Creatinine Ratio, Random, Urine (07/06/2023 [...] LAB UR INE ORDERABLES Performing Organization Address [facility] Co de Phone Number [facility] [address] [address], [facility] [place] [address] * (ABNORMAL) Urinalysis, with Microscopic: Urine, Midstream (07/06/2023 9:22 AM CDT) Source Urine, Urine, Midstream 07/06/2023 11:59 AM CDT [facility] Clarity Clear Clear 07/06/2023 12:06 PM CDT [facility] Color Yellow 07/06/2023 12:06 PM CDT [facility] Comment: ----REFERENCE VALUE---- Colorless Yellow Susana Blood Negative Negative 07/06/2023 12:06 PM CDT [facility] Nitrite Negative Negative 07/06/2023 12:06 PM CDT [facility] Leukocyte Esterase Negative Negative 07/06/2023 12:06 PM CDT [facility] Protein >=300(A) mg/dL 07/06/2023 12:06 PM CDT [facility] Comment: ----REFERENCE VALUE---- Negative Trace Glucose Trace(A) Negative mg/dL 07/06/2023 12:06 PM CDT [facility] Ketone Negative Negative mg/dL 07/06/2023 12:06 PM CDT [facility] Bilirubin Negative Negative 07/06/2023 12:06 PM CDT [facility] pH 5.5 5.0 - 8.0 07/06/2023 12:06 PM CDT [facility] Specific Mather 1.013 1.001 - 1.035 07/06/2023 12:06 PM CDT [facility] Urobilinogen 0.2 0.2 - 1.0 mg/dL 07/06/2023 12:06 PM CDT [facility] White Blood Cells None Seen /hpf 07/06/2023 12:09 PM CDT [facility] Comment: ----REFERENCE VALUE---- Males: 0-3 Females: 0-10 Unknown: 0-10 Red Blood Cells Occ-2 0 - 2 /hpf 12:09 PM CDT [facility] Hyaline Casts 1-3 /lpf 07/06/2023 12:09 PM CDT [facility] Urine (Urine, Midstream) 07/06/2023 9:22 AM CDT 07/06/2023 11:58 AM CDT Sera Hyman M.D., Ph.D. LAB UR INE ORDERABLES [facility] [address] [address], [facility] [place] [address] [phone] documented in this encounter Visit Diagnoses Diagnosis Hypertension And Chronic Kidney Disease Stage 5 (HCC) Proteinuria 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 Failure Renal End Stage (HCC) documented in this encounter Additional Health Concerns Assessment Noted Time PHQ-9 Depression Total Score: 4 06/06/19 23 2:04 PM CLINICAL SERVICES ASSISTANT documented as of this encounter Care Teams Quality Manager Relationship Specialty Start Date End Date Clover Delaney M.D. [address] [place] [phone] PCP - General Internal Medicine 11/23/17 documented as of this encounter
--- OUTSIDE RECORDS SUMMARY | 2023-08-16 13:57 | XMS_ITS | Encounter Summary ---
Author Name Unknown Organization [facility] Address [address] [place] [address] Care Team Providers Care Life Educator Name Role Phone Clover Delaney M.D. Primary Care Provider [phone]- [phone] Reason for Referral * Outpatient (Routine) - Closed Specialty Diagnoses / Procedures Referred By Contac t Referred To Contact Diagnoses Chronic Kidney Disease Stage 5 Glomerular Filtration Rate Less Than 15 (HCC) Procedures US Upper Extremity Bilateral Dialysis Mapping Sera Casiano M.D., Ph.D. [address] [place] [phone] [facility] Referral ID Status Reason Start Date Expiration Date Visits Re quested Visits Authorized [id number] Closed 06/26/2023 06/25/2024 1 1 Reason for Visit * Outpatient (Routine) - Closed Specialty Diagnoses / Procedures Referred By Contanthony t Referred To Contact Diagnoses Chronic Kidney Disease Stage 5 Glomerular Filtration Rate Less Than 15 (HCC) Procedures US Upper Extremity Bilateral Dialysis Mapping Sera Casiano M.D., Ph.D. [address] [place] [phone] [facility] Referral ID Status Reason Start Date Expiration Date Visits Re quested Visits Authorized [id number] Closed 06/26/2023 06/25/2024 1 1 Encounter Details Date Type Department Care Team (Latest Contact Info) Description 07/29/2023 12:13 PM CDT - 07/29/2023 2:39 PM CDT Hospital Encounter Department of Radiology, [facility], in [place], [place] [address] [place] [address] Sera Casiano M.D., Ph.D. [address] [place] [address] Chronic Kidney Disease Stage 5 Glomerular Filtration [...] Answer Date Recorded PHQ-2 Score 2 05/28/2023 [facility] of Occupat ional [facility] - Occupational Stress Questionnaire Answer Date [...] Sex Assigned at Male 05/13/2021 10:11 AM SUPERVISOR GENERAL Gender Identity Male 11/02/2017 7:22 PM [...] by mouth as needed. miscellaneous medical supply [facility] CPAP Supplies See Instructions, CPAP machine, mask 1 ea x 4 refills, headgear 1 ea x 2 refills, tubing 1 ea x 4 refills, filters 2 ea per month, tub 1 ea x 2 refills, mask seal 1 ea x 2 refills DX G47.33, length of need 99, 1 each, 0 Refill(s) 10/20/2016 [facility] Head Gear for CPAP Machine See Instructions, fax to patient at [phone], 1 each 01/17/2014 MULTIVITAMIN ORAL Daily Multiple Vitamins See Instructions, Take 1 tablet by mouth daily. 07/23/2013 ONETOUCH DELICA LANCETS 33 gauge [facility] 3 08/02/2018 OneTouch Ultra Test StripsIndications:Diabet es [...] PM CDT Clinical Communication Virtual Review in [place], [place] 200 [place] [phone] 08/21/2023 1:30 PM CDT Comprehensive Visit Division of Pulmonary Medicine in [place], [place] [address] [place] [phone] Gallito Crabtree M.D. [address] [place] [phone] 09/08/2023 10:00 AM CDT Appointment Department of Laboratory Medicine in [place], [place] [address] [place] [address] Sera Casiano M.D., Ph.D. [address] [place] [phone] 09/08/2023 10:10 AM CDT Appointment Department of Laboratory Medicine in [place], [place] [address] [place] [address] Sera Casiano M.D., Ph.D. [address] [place] [phone] 09/28/2023 8:15 AM CDT Hospital Encounter Outpatient Surgery Unit in [place], [place] [address] [place] [phone] Sandeep Kuo M.D., Ph.D. [address] [place] [phone] 09/28/2023 8:15 AM CDT - 09/28/2023 11:06 AM CDT Surgery [facility] [address] [place] [address] Sandeep Kuo M.D., Ph.D. [address] [place] [phone] CREATION FISTULA BRACHIOCEPHALIC ARTERIOVENOUS Scheduled Procedures Name [...] Glomerular Filtration Rate Less Than 15 (HCC) documented in this encounter Results * US Upper Extremity Bilateral Dialysis [...] Sera Hyman M.D., Ph.D. IMG US PROCEDURES documented in this encounter Visit Diagnoses Diagnosis Chronic Kidney Disease Stage 5 Glomerular Filtration Rate Less Than 15 (HCC) Failure Renal End Stage (HCC) documented in this encounter Additional Health Concerns Assessment Noted Time PHQ-9 Depression Total Score: 4 06/06/19 23 2:04 PM SUPERVISOR GENERAL documented as of this encounter Care Teams Life Educator Relationship Specialty Start Date End Date Clover Delaney M.D. 701 [facility] [place] [address] PCP - General Internal Medicine 11/23/17 documented as of this encounter
--- OUTSIDE RECORDS SUMMARY | 2023-08-16 13:57 | XMS_ITS | Encounter Summary ---
Author Name Unknown Organization [facility] Address [address] [place] [address] Care Team Providers Care Financial Solutions Advisor Name Role Phone Clover Delaney M.D. Primary Care Provider [phone] Reason for Referral * Outpatient (Routine) - Authorized Specialty Diagnoses / Procedures Referred By Contac t Referred To Contact Clover Delaney M.D. [address] [place] [address] [facility] Region Referral ID Status Reason Start Date Expiration Date V isits Requested Visits Authorized [id number] Authorized 06/30/2023 12/29/2024 1 1 Scheduling Instructions Nurse AWV Do not schedule prior to due date to ensure insurance coverage Visit: Medicare Annual Wellness Never done. [place] CITIZENSHIP Encounter Details Date Type Department Care Team (Late st Contact Info) Description 06/30/2023 Orders Only [facility] Clover Delaney M.D. [address] [place] [address] Social History Tobacco Use Types [...] Answer Date Recorded PHQ-2 Score 2 05/28/2023 [facility] - Occupational Stress Questionnaire Answer [...] Sex Assigned at Male 05/13/2021 10:11 AM TEACHER CITIZENSHIP Gender Identity Male 11/02/2017 7:22 PM CDT Sexual Orientation Straight 11/02/2017 7: 22 PM CDT documented as of this encounter Plan of Treatment Upcoming Encounters Date Type Department Care Team (Latest Contact Info) Description 08/19/2023 3:00 PM CDT Clinical Communication Virtual Review in [place], [place] 200 [place] [address] 08/21/2023 1:30 PM CDT Comprehensive Visit Division of Pulmonary Medicine in [place], [place] [address] [place] [phone] Gallito Crabtree M.D. [address] [place] [phone] 09/08/2023 10:00 AM CDT Appointment Department of Laboratory Medicine in [place] [address] [place] [phone] Sera Casiano M.D., Ph.D. [address] [place] [phone] 09/08/2023 10:10 AM CDT Appointment Department of Laboratory Medicine in [place], [place] [address] [place] [address] Sera Casiano M.D., Ph.D. [address] [place] [phone] 09/28/2023 8:15 AM CDT Hospital Encounter Outpatient Surgery Unit in [address] [phone] Sandeep Kuo M.D., Ph.D. [address] [place] [address] 09/28/2023 8:15 AM CDT - 09/28/2023 11:06 AM CDT Surgery [facility] [address] [place] [address] Sandeep Kuo M.D., Ph.D. 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) 09/28/2023 8:15 AM CDT Scheduled Referrals Name Type Priority Associated Diagnoses Orde r Schedule Primary Care nurse visit (clinic) - [facility] Region; Medicare Annual Wellness Outpatient Referral Routine Expected: 07/28/2023, Expires: 12/27/2023 documented as of this encounter Visit Diagnoses Not on filedocumented in this encounter Additional Health Concerns Assessment Noted Time PHQ-9 Depression Total Score: 4 06/06/19 23 2:04 PM TEACHER CITIZENSHIP documented as of this encounter Care Teams Financial Solutions Advisor Relationship Specialty Start Date End Date Clover Delaney M.D. [address] [place] [address] PCP - General Internal Medicine 11/23/17 documented as of this encounter
--- OUTSIDE RECORDS SUMMARY | 2023-08-16 13:57 | XMS_ITS | Encounter Summary ---
Author Name Unknown Organization [facility] Address [address] [place] [address] Care Team Providers Care Florist Designer Name Role Phone Clover Delaney M.D. Primary Care Provider [phone] Encounter Details Date Type Department Care Team (Late st Contact Info) Description 07/23/2023 Clinical Communication Division of Nephrology and Hypertension in [place], [place] [address] [place] [address] Monica Ferreira RMonster., C.M.S.R.N. [address] [place] [phone] Social History Tobacco Use Types Packs/Day Years [...] Date Recorded PHQ-2 Score 2 05/28/2023 [facility] [place] of Occupat ional Health - [...] Sex Assigned at Male 05/13/2021 10:11 AM BROACHING MACHINE SET UP OPERATOR Gender Identity Male 11/02/2017 7:22 PM CDT Sexual Orientation Straight 11/02/2017 7: 22 PM CDT documented as of this encounter Miscellaneous Notes * Telephone Encounter - Monica Ferreira R.N., C.M.S.R.N. - 07/23/2023 10:25 AM CDT Remote Patient Monitoring vitals for last 7 days Remote Monitoring- Vitals Last 7 days Systolic (Home) Diastolic (Home) 07/22/2023 9:12 AM 168 79 07/21/2023 2:21 PM 183 87 07/20/2023 9:57 AM 178 79 07/17/2023 12:30 PM 203 87 documented in this encounter Plan of Treatment Upcoming Encounters Date Type Department Care Team (Latest Contact Info) Description 08/19/2023 3:00 PM CDT Clinical Communication Virtual Review in [place], [place] 200 [place] [address] 08/21/2023 1:30 PM CDT Comprehensive Visit Division of Pulmonary Medicine in [place], [place] [address] [place] [phone] Gallito Crabtree M.D. [address] [place] [phone] 09/08/2023 10:00 AM CDT Appointment Department of Laboratory Medicine in [place] [address] [place] [address] Sera Casiano M.D., Ph.D. [address] [place] [phone] 09/08/2023 10:10 AM CDT Appointment Department of Laboratory Medicine in [place] [address] [place] [address] [address] Sera Casiano M.D., Ph.D. [address] [place] [phone] 09/28/2023 8:15 AM CDT Hospital Encounter Outpatient Surgery Unit in [address] [phone] Sandeep Kuo M.D., Ph.D. [address] [place] [address] 09/28/2023 8:15 AM CDT - 09/28/2023 11:06 AM CDT Surgery [facility] [address] [place] [address] Sandeep Kuo M.D., Ph.D. 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 [address] [place] [phone] PCP - General Internal Medicine 11/23/17 documented as of this encounter
--- OUTSIDE RECORDS SUMMARY | 2023-08-16 13:58 | XMS_ITS | Encounter Summary ---
Author Name Unknown Organization [facility] Address [address] [place] [address] Care Team Providers Care Psych Np Name Role Phone Clover Delaney M.D. Primary Care Provider +[phone]- [phone] Reason for Referral * Outpatient (Routine) - Closed Specialty Diagnoses / Procedures Referred By Yenny hunter Referred To Contact Nutrition Diagnoses Chronic Kidney Disease Stage 5 Glomerular Filtration Rate Less Than 15 (HCC) Sera Casiano M.D., Ph.D. 200 [place] [address] [facility] Referral ID Status Reason Start Date Expiration Date Visits Re quested Visits Authorized [id number] Closed 06/26/2023 12/25/2024 1 1 Scheduling Instructions VIDEO VISIT. This appointment should ideally be scheduled AFTER the Cryptographic Vulnerability Analyst Consults, but must at least be scheduled 48 hours after 24-hour urine collection is complete. Virtual visit is acceptable for this dietitian visit. P REMOVER * Outpatient (Routine) - Closed Specialty Diagnoses / Procedures Referred By Yenny hunter Referred To Contact Nephrology and Hypertension Sera Casiano M.D., Ph.D. 200 [place] [address] [facility] Referral ID Status Reason Start Date Expiration Date Visits Re quested Visits Authorized [id number] Closed 06/26/2023 12/25/2024 1 1 P REMOVER * Outpatient (Routine) - Closed Specialty Diagnoses / Procedures Referred By Contac t Referred To Contact Diagnoses Chronic Kidney Disease Stage 5 Glomerular Filtration Rate Less Than 15 (HCC) Procedures US Upper Extremity Bilateral Dialysis Mapping Sera Casiano M.D., Ph.D. [address] [place] [phone] [facility] Referral ID Status Reason Start Date Expiration Date Visits Re quested Visits Authorized [id number] Closed 06/26/2023 06/25/2024 1 1 P REMOVER * Outpatient (Routine) - Closed Specialty Diagnoses / Procedures Referred By Contac t Referred To Contact Nephrology and Hypertension / Dialysis Diagnoses Chronic Kidney Disease Stage 5 Glomerular Filtration Rate Less Than 15 (HCC) Sera Casiano M.D., Ph.D. [address] [place] [phone] [facility] Referral ID Status Reason Start Date Expiration Date Visits Re quested Visits Authorized [id number] Closed 06/26/2023 12/25/2024 1 1 P REMOVER * Outpatient (Routine) - Closed Specialty Diagnoses / Procedures Referred By Contac t Referred To Contact Nephrology and Hypertension Sera Casiano M.D., Ph.D. [address] [place] [phone] [facility] Referral ID Status Reason Start Date Expiration Date Visits Re quested Visits Authorized [id number] Closed 06/26/2023 12/25/2024 1 1 P REMOVER Reason for Visit * Outpatient (Routine) - Closed Specialty Diagnoses / Procedures Referred By Yenny hunter Referred To Contact Nephrology and Hypertension Sera Casiano M.D., Ph.D. [address] [place] [address] [facility] Referral ID Status Reason Start Date Expiration Date Visits Re quested Visits Authorized [id number] Closed 06/15/2023 12/14/2024 1 1 Encounter Details Date Type Department Care Team (Latest Contact Info) Description 06/26/2023 4:00 PM CLAMP REMOVER Office Visit Division of Nephrology and Hypertension in [place], [place] [address] [place] [phone] Sera Casiano M.D., Ph.D. [address] [place] [address] Chronic Kidney Disease Stage 5 Glomerular Filtration Rate Less Than 15 (HCC) (Primary Dx); Hyperkalemia; 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 Social History Tobacco Use Types Packs/Day Years [...] Answer Date Recorded PHQ-2 Score 2 05/28/2023 [facility] of Occupat ional [facility] - Occupational Stress Questionnaire Answer [...] Sex Assigned at Male 05/13/2021 10:11 AM CLAMP REMOVER Gender Identity Male 11/02/2017 7:22 PM CDT Sexual Orientation Straight 11/02/2017 7: 22 PM CDT documented as of this encounter Patient Instructions * Patient Instructions* Sera Casiano M.D., Ph.D. - 06/26/2023 4:00 PM CLAMP REMOVER Low potassium diet. Recheck potassium level on Thursday Bring your BP device for validation (nurse visit) Increase dose of doxazosin to 4 mg at bedtime Continue to monitor your BP Referral to vascular access clinic Ultrasound of arms to check for vessels for vascular access Dietitian appointment Continue Aranesp and Iron P REMOVER documented in this encounter Progress Notes * Sera Casiano M.D., Ph.D. - 06/26/2023 4:00 PM CST PROGRESS NOTE SUBJECTIVE CHIEF COMPLAINT / REASON FOR VISIT Follow up CKD progression now CKD 5 HISTORY OF PRESENT ILLNESS Philip Patel is a 77 y.o. male who is seen for follow up. Patient's lower extremity edema and shortness of breath have significantly improved as per his report. No signs of uremia. He reports good urinary output. His BP at home ranges in the 150s/60s but in clinic it is usually in the 180s-200s/60s. OBJECTIVE 200/60 pulse 56 PHYSICAL EXAMINATION Physical Exam Bilateral rhonchi at bases. No signs of uremia, no asterixis. Lower extremity edema 3+ DIAGNOSTICS I have reviewed available labs in detail with patient. ASSESSMENT / PLAN #1 Chronic Kidney Disease Stage 5 Glomerular Filtration Rate Less Than 15 (HCC) #2 Hyperkalemia #3 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 We discussed his CKD status, and risk of dialysis in the near future. He does not present signs of uremia, and would like to wait. We will continue with close monitoring. Low potassium diet. Recheck potassium level on Thursday Bring your BP device for validation (nurse visit) Increase dose of doxazosin to 4 mg at bedtime Continue to monitor your BP Referral to vascular access clinic Ultrasound of arms to check for vessels for vascular access Dietitian video appointment Continue Aranesp and Iron for anemia management Return visit in July to be done at [facility]. P REMOVER documented in this encounter Plan of Treatment Upcoming Encounters Date Type Department Care Team (Latest Contact Info) Description 08/19/2023 3:00 PM CDT Clinical Communication Virtual Review in [place], [place] [address] [place] [phone] 08/21/2023 1:30 PM CDT Comprehensive Visit Division of Pulmonary Medicine in [place], [place] [address] [place] [phone] Gallito Crabtree M.D. [address] [place] [phone] 09/08/2023 10:00 AM CDT Appointment Department of Laboratory Medicine in [place] [address] [place] [address] Sera Casiano M.D., Ph.D. [address] [place] [phone] 09/08/2023 10:10 AM CDT Appointment Department of Laboratory Medicine in [address] [place] [phone] Sera Casiano M.D., Ph.D. [address] [place] [phone] 09/28/2023 8:15 AM CDT Hospital Encounter Outpatient Surgery Unit in [place], [place] [address] [place] [phone] Sandeep Kuo M.D., Ph.D. [address] [place] [phone] 09/28/2023 8:15 AM CDT - 09/28/2023 11:06 AM CDT Surgery [facility] [address] [place] [address] Sandeep Kou M.D., Ph.D. 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) 09/28/2023 8:15 AM CDT Scheduled Referrals Name Type Priority Associated Diagnoses Order Schedule Nephrology nurse visit (clinic) Outpatient Referral Routine 1 Occurrences starting 06/26/2023 until 09/25/2024 Dialysis - Hemodialysis access consult (clinic) Outpatient Referral Routine Chronic Kidney Disease Stage 5 Glomerular Filtration Rate Less Than 15 (HCC) 1 Occurrences starting 06/26/2023 until 09/25/2024 Nephrology nurse visit (clinic) Outpatient Referral Routine Expected: 06/29/2023, Expires: 09/25/2024 Nutrition - Nephrology medical nutrition therapy consult (clinic) Outpatient Referral Routine Chronic Kidney Disease Stage 5 Glomerular Filtration Rate Less Than 15 (HCC) Expected: 06/26/2023 (Approximate), Expires: 09/25/2024 documented as of this encounter Results * US Upper Extremity [...] Hyman M.D., Ph.D. IMG US PROCEDURES * (ABNORMAL) Ferritin (06/29/2023 12:11 PM CLAMP REMOVER) Ferritin, S 487(H) 31 - 409 mcg/L 06/29/2023 1:44 PM CLAMP REMOVER DTL Blood (Blood, Venous) 06/29/2023 12:11 PM CLAMP REMOVER 06/29/2023 12:47 PM CLAMP REMOVER Sera Hyman M.D., Ph.D. LAB BL OOD ADD-ON Performing Organization Address City/[facility]/ZIP Co de Phone Number [facility] [address] [place] [address], [facility] 200 [place] [address] * (ABNORMAL) Iron and Total Iron-Binding Capacity (06/29/2023 12:11 PM CLAMP REMOVER) Pathologist [facility] Iron 51 50 - 150 mcg/dL 06/29/2023 1:44 PM CLAMP REMOVER DTL Total Iron Binding Capacity 221(L) 250 - 400 mcg/dL 06/29/2023 1:44 PM CLAMP REMOVER DTL Percent Saturation 23 14 - 50 % 06/29/2023 1:44 PM CLAMP REMOVER DTL Blood (Blood, Venous) 06/29/2023 12:11 PM CLAMP REMOVER 06/29/2023 12:47 PM CLAMP REMOVER Sera Hyman M.D., Ph.D. LAB BL OOD ADD-ON Performing Organization Address City/[facility] Co de Phone Number [facility] [address] [place] [address], [facility] DTL [facility] 200 [place] [address] * (ABNORMAL) Renal Function Panel (06/29/2023 12:11 PM CLAMP REMOVER) Potassium, S 4.5 3.6 - 5.2 mmol/L 06/29/2023 1:44 PM CLAMP REMOVER DTL Sodium, S 143 135 - 145 mmol/L 06/29/2023 1:44 PM CLAMP REMOVER DTL Chloride, S 104 98 - 107 mmol/L 06/29/2023 1:44 PM CLAMP REMOVER DTL Bicarbonate, S 24 22 - 29 mmol/L 06/29/2023 1:44 PM CLAMP REMOVER DTL Anion Gap 15 7 - 15 06/29/2023 1:44 PM CLAMP REMOVER DTL BUN (Blood Urea Nitrogen), S 69(H) 8 - 24 mg/dL 06/29/2023 1:44 PM CLAMP REMOVER DTL Creatinine 4.51(H) 0.74 - 1.35 mg/dL 06/29/2023 1:44 PM CLAMP REMOVER DTL Estimated GFR (eGFR) <15(L) >=60 mL/min/BSA 06/29/2023 1:44 PM CLAMP REMOVER DTL Comment: Estimated GFR calculated using the 2020 CKD_EPI creatinine equation. Calcium, Total, S 8.5(L) 8.8 - 10.2 mg/dL 06/29/2023 1:44 PM CLAMP REMOVER DTL Glucose, S 97 70 - 140 mg/dL 06/29/2023 1:44 PM CLAMP REMOVER DTL Albumin, S 4.0 3.5 - 5.0 g/dL 06/29/2023 1:44 PM CLAMP REMOVER DTL Phosphorus (Inorganic), S 4.9(H) 2.5 - 4.5 mg/dL 06/29/2023 1:44 PM CLAMP REMOVER DTL Blood (Blood, Venous) 06/29/2023 12:11 PM CLAMP REMOVER 06/29/2023 12:47 PM CLAMP REMOVER Sera Hyman M.D., Ph.D. LAB BL OOD ADD-ON [facility] [address] [place] [address], [facility] [address] [place] [address] documented in this encounter Visit Diagnoses Diagnosis Chronic Kidney Disease Stage 5 Glomerular Filtration Rate Less Than 15 (HCC)- Primary Hyperkalemia 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 Chronic Kidney Disease Stage 5 Glomerular Filtration Rate Less Than 15 (HCC) Failure Renal End Stage (HCC) documented in this encounter Additional Health Concerns Assessment Noted Time PHQ-9 Depression Total Score: 4 06/06/19 23 2:04 PM CLAMP REMOVER documented as of this encounter Care Teams Psych Np Relationship Specialty Start Date End Date Clover Delaney M.D. [address] [place] [address] PCP - General Internal Medicine 11/23/17 documented as of this encounter
--- OUTSIDE RECORDS SUMMARY | 2023-08-16 13:58 | XMS_ITS | Encounter Summary ---
Author Name Unknown Organization [facility] Address [address] [place] [address] Care Team Providers Care Support Merchandiser Name Role Phone Clover Delaney M.D. Primary Care Provider [phone] Reason for Referral * Specialty Diagnoses / Procedures Referred By Yenny hunter Referred To Contact RST [facility] [address] [place] [address] [facility] Referral ID Status Reason Start Date Expiration Date Visits Re quested Visits Authorized Scheduling Instructions Coordinate with Dr. North's visit please - kandice Hopkins LE GRINDER Encounter Details Date Type Department Care Team (Late st Contact Info) Description 06/16/2023 Orders Only Division of Nephrology and Hypertension in [place], [place] [address] [place] [phone] Sandeep Galicia, R.N. [address] [place] [phone] Chronic Kidney Disease Stage 4 Glomerular Filtration Rate 15-29 (HCC) (Primary Dx) Social History Tobacco Use Types Packs/Day Years Used Date Smoking Tobacco: Former Cigarettes 0 1961 - 12/26/1980 Smokeless Tobacco: Never [...] How often do you attend [facility] or jainism services? Never 07/28/2022 Do you belong to any clubs o r organizations such as advent groups, unions, fraternal or athletic groups, or [...] Date Recorded PHQ-2 Score 2 05/28/2023 [facility] of Occupat ional Health [...] Sex Assigned at Male 05/13/2021 10:11 AM NEEDLE GRINDER Gender Identity Male 11/02/2017 7:22 PM CDT Sexual Orientation Straight 11/02/2017 7: 22 PM CDT documented as of this encounter Plan of Treatment Upcoming Encounters Date Type Department Care Team (Latest Contact Info) Description 08/19/2023 3:00 PM CDT Clinical Communication Virtual Review in [place], [place] 200 [place] [address] 08/21/2023 1:30 PM CDT Comprehensive Visit Division of Pulmonary Medicine in [place], [place] [address] [place] [phone] Gallito Crabtree M.D. [address] [place] [phone] 09/08/2023 10:00 AM CDT Appointment Department of Laboratory Medicine in [place] [address] [place] [address] Sera Casiano M.D., Ph.D. [address] [place] [phone] 09/08/2023 10:10 AM CDT Appointment Department of Laboratory Medicine in [place] [address] [place] [phone] Sera Casiano M.D., Ph.D. [address] [place] [phone] 09/28/2023 8:15 AM CDT Hospital Encounter Outpatient Surgery Unit in [address] [phone] Sandeep Kuo M.D., Ph.D. [address] [place] [phone] 09/28/2023 8:15 AM CDT - 09/28/2023 11:06 AM CDT Surgery [facility] [address] [place] [phone] Sandeep Kuo M.D., Ph.D. 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) 09/28/2023 8:15 AM CDT Scheduled Referrals Name Type Priority Associated Diagnoses Order Schedule Nephrology - Chronic kidney disease education visit (clinic) Outpatient Referral Routine Chronic Kidney Disease Stage 4 Glomerular Filtration Rate 15-29 (HCC) Expected: 06/26/2023, Expires: 09/13/2024 documented as of this encounter Visit Diagnoses Diagnosis Chronic Kidney Disease Stage 4 Glomerular Filtration Rate 15-29 (HCC)- Primary Failure Renal End Stage (HCC) documented in this encounter Additional Health Concerns Assessment Noted Time PHQ-9 Depression Total Score: 4 06/06/19 23 2:04 PM NEEDLE GRINDER documented as of this encounter Care Teams Support Merchandiser Relationship Specialty Start Date End Date Clover Delaney M.D. [address] [place] [address] PCP - General Internal Medicine 11/23/17 documented as of this encounter
--- OUTSIDE RECORDS SUMMARY | 2023-08-16 13:58 | XMS_ITS | Encounter Summary ---
Author Name Unknown Organization [facility] Address [address] [place] [address] Care Team Providers Care Drier Unloader Name Role Phone Clover Delaney M.D. Primary Care Provider [phone]- [phone] Reason for Referral * Outpatient (Routine) - Authorized Specialty Diagnoses / Procedures Referred By Contanthony t Referred To Contact Ophthalmology Justin Bunch M.D. [address] [place] [address] [facility] Referral ID Status Reason Start Date Expiration Date V isits Requested Visits Authorized [id number] Authorized 06/15/2023 12/14/2024 1 1 T PAINTING AND SEALING SUPERVISOR Encounter Details Date Type Department Care Team (Late st Contact Info) Description 06/15/2023 Orders Only Department of Ophthalmology in [place], [place] [address] [place] [phone] Bailey Campo, C.OJosé LuisAJosé Luis [address] [place] [phone] Diabetes Mellitus Type 2 With Proliferative Diabetic [...] any clubs o r organizations such as orthodoxy groups, unions, fraternal or athletic groups, or [...] Answer Date Recorded PHQ-2 Score 2 05/28/2023 [facility]at [facility] - Occupational Stress [...] have received? Professional school degree (e.g., , MICKIS, DVM, NACHO) 10/10/2020 Sex and Gender Information Value Date Recorded Sex Assigned at Male 05/13/2021 10:11 AM CHEST PAINTING AND SEALING SUPERVISOR Gender Identity Male 11/02/2017 7:22 PM CDT Sexual Orientation Straight 11/02/2017 7: 22 PM CDT documented as of this encounter Plan of Treatment Upcoming Encounters Date Type Department Care Team (Latest Contact Info) Description 08/19/2023 3:00 PM CDT Clinical Communication Virtual Review in [place], [place] 200 [place] [address] 08/21/2023 1:30 PM CDT Comprehensive Visit Division of Pulmonary Medicine in [place], [place] [address] [place] [phone] Gallito Crabtree M.D. [address] [place] [phone] 09/08/2023 10:00 AM CDT Appointment Department of Laboratory Medicine in [place] [address] [place] [phone] Sera Casiano M.D., Ph.D. [address] [place] [phone] 09/08/2023 10:10 AM CDT Appointment Department of Laboratory Medicine in [place] [address] [place] [phone] Sera Casiano M.D., Ph.D. [address] [place] [phone] 09/28/2023 8:15 AM CDT Hospital Encounter Outpatient Surgery Unit in [address] [phone] Sandeep Kuo M.D., Ph.D. [address] [place] [phone] 09/28/2023 8:15 AM CDT - 09/28/2023 11:06 AM CDT Surgery [facility] [address] [place] [address] Sandeep Kuo M.D., Ph.D. 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) 09/28/2023 8:15 AM CDT Scheduled Referrals Name Type Priority Associated Diagnoses Order Schedule Ophthalmology office visit (clinic) Outpatient Referral Routine Expected: 09/13/2023 (Approximate), Expires: 06/15/2026 documented as of this encounter Visit Diagnoses Diagnosis 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 [address] [place] [phone] PCP - General Internal Medicine 11/23/17 documented as of this encounter
--- OUTSIDE RECORDS SUMMARY | 2023-08-16 13:58 | XMS_ITS | Encounter Summary ---
Author Name Unknown Organization [facility] Address [address] [place] [address] Care Team Providers Care Technician Plant And Maintenance Name Role Phone Clover Delaney M.D. Primary Care Provider [phone] Reason for Visit * Reason Onset Date Comments Pre-visit Intake 06/24/2023 Encounter Details Date Type Department Care Team (Latest Contact Info) Description 06/24/2023 9:45 AM DIRECTOR EXECUTIVE COMMUNICATIONS Clinical Communication Virtual Review in [place], [place] 200 [place] [phone] Pre-visit Intake Social History Tobacco Use Types Packs/Day Years [...] any clubs o r organizations such as protestant groups, unions, fraternal or athletic groups, or [...] Answer Date Recorded PHQ-2 Score 2 05/28/2023 [facility] of Occupat [...] Assigned at Male 05/13/2021 10:11 AM DIRECTOR EXECUTIVE COMMUNICATIONS Gender Identity Male 11/02/2017 7:22 PM CDT Sexual Orientation Straight 11/02/2017 7: 22 PM CDT documented as of this encounter Plan of Treatment Upcoming Encounters Date Type Department Care Team (Latest Contact Info) Description 08/19/2023 3:00 PM CDT Clinical Communication Virtual Review in [place], [place] [address] [place] [address] 08/21/2023 1:30 PM CDT Comprehensive Visit Division of Pulmonary Medicine in [place], [place] [address] [place] [phone] Gallito Crabtree M.D. [address] [place] [phone] 09/08/2023 10:00 AM CDT Appointment Department of Laboratory Medicine in [place] [address] [place] [address] Sera Casiano M.D., Ph.D. [address] [place] [phone] 09/08/2023 10:10 AM CDT Appointment Department of Laboratory Medicine in [place] [address] [place] [phone] Sera Casiano M.D., Ph.D. [address] [place] [phone] 09/28/2023 8:15 AM CDT Hospital Encounter Outpatient Surgery Unit in [place], [place] [address] [place] [phone] Sandeep Kuo M.D., Ph.D. [address] [place] [phone] 09/28/2023 8:15 AM CDT - 09/28/2023 11:06 AM CDT Surgery [facility] [address] [place] [address] Sandeep Kuo M.D., Ph.D. 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 [address] [place] [phone] PCP - General Internal Medicine 11/23/17 documented as of this encounter
--- OUTSIDE RECORDS SUMMARY | 2023-08-16 13:58 | XMS_ITS | Encounter Summary ---
Author Name Unknown Organization [facility] Address [address] [place] [address] Care Team Providers Care Editorial Project Manager Name Role Phone Clover Delaney M.D. Primary Care Provider [phone]- [phone] Encounter Details Date Type Department Care Team (Late st Contact Info) Description 06/15/2023 Orders Only Division of Nephrology and Hypertension in [place], [place] [address] [place] [address] Sera Casiano M.D., Ph.D. [address] [place] [address] Chronic Kidney Disease Stage 5 Glomerular Filtration [...] Answer Date Recorded PHQ-2 Score 2 05/28/2023 [facility] [...] Sex Assigned at Male 05/13/2021 10:11 AM MOTION PICTURE DIRECTOR Gender Identity Male 11/02/2017 7:22 PM CDT Sexual Orientation Straight 11/02/2017 7: 22 PM CDT documented as of this encounter Plan of Treatment Upcoming Encounters Date Type Department Care Team (Latest Contact Info) Description 08/19/2023 3:00 PM CDT Clinical Communication Virtual Review in [place], [place] 200 [place] [address] 08/21/2023 1:30 PM CDT Comprehensive Visit Division of Pulmonary Medicine in [place], [place] [address] [place] [phone] Gallito Crabtree M.D. [address] [place] [phone] 09/08/2023 10:00 AM CDT Appointment Department of Laboratory Medicine in [place] [address] [place] [phone] Sera Casiano M.D., Ph.D. [address] [place] [phone] 09/08/2023 10:10 AM CDT Appointment Department of Laboratory Medicine in [place] [address] [place] [phone] Sera Casiano M.D., Ph.D. [address] [place] [phone] 09/28/2023 8:15 AM CDT Hospital Encounter Outpatient Surgery Unit in [place], [place] [address] [place] [phone] Sandeep Kuo M.D., Ph.D. [address] [place] [phone] 09/28/2023 8:15 AM CDT - 09/28/2023 11:06 AM CDT Surgery [facility] [address] [place] [address] Sandeep Kuo M.D., Ph.D. 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 [...] Nil Result 0.02 IU/mL 06/16/2023 12:08 PM MOTION PICTURE DIRECTOR [facility] TB2 Ag minus Nil Result 0.01 IU/mL 06/16/2023 12:08 PM MOTION PICTURE DIRECTOR [facility] Mitogen minus Nil Result 3.42 IU/mL 06/16/2023 12:08 PM MOTION PICTURE DIRECTOR [facility] Nil Result 0.04 IU/mL 06/16/2023 12:08 PM MOTION PICTURE DIRECTOR [facility] Blood (Blood, Venous) 06/15/2023 4:07 PM MOTION PICTURE DIRECTOR 06/15/2023 5:59 PM MOTION PICTURE DIRECTOR Narrative [facility] - 06/16/2023 12:08 PM MOTION PICTURE DIRECTOR Specimen Information: Specimen ID: [id number] Specimen Type: Blood Specimen Collection Start Date: 06/15/2023 ??4:07 PM Specimen Received Date: 06/15/2023 ??5:59 PM Specimen ID: [id number] Specimen Type: Blood Specimen Collection Start Date: 06/15/2023 ??4:07 PM Specimen Received Date: 06/15/2023 ??5:59 PM Specimen ID: [id number] Specimen Type: Blood Specimen Collection Start Date: 06/15/2023 ??4:07 PM Specimen Received Date: 06/15/2023 ??5:59 PM Specimen ID: [id number] Specimen Type: Blood Specimen Collection Start Date: 06/15/2023 ??4:07 PM Specimen Received Date: 06/15/2023 ??5:59 PM Sera Hyman M.D., Ph.D. LAB [facility] BLOOD ORDERABLES Performing Organization Address City/[facility]/ZIP Co de Phone Number [address] [place], [place] [id number] [place] [address] [place] [address] * Hepatitis B Surface Antigen (06/15/2023 4:06 PM MOTION PICTURE DIRECTOR) HBs Antigen, S Negative Negative 06/15/2023 10:03 PM MOTION PICTURE DIRECTOR [facility] Blood (Blood, Venous) 06/15/2023 4:06 PM MOTION PICTURE DIRECTOR 06/15/2023 8:15 PM MOTION PICTURE DIRECTOR Sera Hyman M.D., Ph.D. LAB [facility] BLOOD ORDERABLES Performing Organization Address [facility] Co de Phone Number [address] [place], [place] [phone] [place] [address] [place] [address] * HCV Ab w/Reflex to HCV PCR, Serum (06/15/2023 4:06 PM MOTION PICTURE DIRECTOR) HCV Ab, S Negative Negative 06/15/2023 10:21 PM MOTION PICTURE DIRECTOR [facility] Comment:Cswwxc-ao-laqoli rat io is <1.00. Blood (Blood, Venous) 06/15/2023 4:06 PM MOTION PICTURE DIRECTOR 06/15/2023 8:15 PM MOTION PICTURE DIRECTOR Sera Hyman M.D., Ph.D. LAB [facility] - BLOOD ORDERABLES [facility] [address] [place] [address] [facility] [address] [place] [address] * HBc Total Ab, Serum (06/15/2023 4:06 PM MOTION PICTURE DIRECTOR) HBc Total Ab, S Negative Negative 06/15/2023 10:17 PM MOTION PICTURE DIRECTOR [facility] Blood (Blood, Venous) 06/15/2023 4:06 PM MOTION PICTURE DIRECTOR 06/15/2023 8:15 PM MOTION PICTURE DIRECTOR Sera Hyman M.D., Ph.D. [facility]OD ORDERAB[facility] Performing Organization Address City/[facility]/ZIP Co de Phone Number [facility] [address] [place] [address] [facility] [address] [place] [address] * HBs Antibody, Serum (06/15/2023 4:06 PM MOTION PICTURE DIRECTOR) HBs Antibody, S Negative 06/15/2023 10:18 PM MOTION PICTURE DIRECTOR [facility] Comment: Patient is presumed to be not immune to infection with HBV. ----REFERENCE VALUE---- Unvaccinated: Negative Vaccinated: Positive HBs Antibody, Quantitative, S <5.0 mIU/mL 06/15/2023 10:18 PM MOTION PICTURE DIRECTOR [facility] Comment: ----REFERENCE VALUE---- Unvaccinated: <5.0 Vaccinated: >=12.0 Blood (Blood, Venous) 06/15/2023 4:06 PM MOTION PICTURE DIRECTOR 06/15/2023 8:15 PM MOTION PICTURE DIRECTOR Sera Hyman M.D., Ph.D. 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 [address] [place] [phone] PCP - General Internal Medicine 11/23/17 documented as of this encounter
--- OUTSIDE RECORDS SUMMARY | 2023-08-16 13:58 | XMS_ITS | Encounter Summary ---
Author Name Unknown Organization [facility] Address [address] [place] [address] Care Team Providers Care Bread Pan Greaser Name Role Phone Clover Delaney M.D. Primary Care Provider [phone]- [phone] Encounter Details Date Type Department Care Team (Late st Contact Info) Description 06/26/2023 3:00 PM ONLINE COMMUNITY MANAGER Education Division of Nephrology and Hypertension in [place], [place] [address] [place] [phone] Sera Casiano M.D., Ph.D. [address] [place] [phone] Sandeep Galicia, R.N. [address] [place] [phone] Chronic Kidney Disease Stage 4 Glomerular Filtration [...] How often do you attend chur or islam services? Never 07/28/2022 Do you [...] Answer Date Recorded PHQ-2 Score 2 05/28/2023 [employer] [place] [facility] - Occupational [...] Sex Assigned at Male 05/13/2021 10:11 AM ONLINE COMMUNITY MANAGER Gender Identity Male 11/02/2017 7:22 PM CDT Sexual Orientation Straight 11/02/2017 7: 22 PM CDT documented as of this encounter Progress Notes * Sandeep Galicia R.N. - 06/26/2023 3:00 PM CST Patient was here today for third education visit on renal replacement therapies with Kidney Kettle Coordinator Nurse patient states that he is feeling better than earlier this month. We reviewed patient'sblood pressure, dietary restrictions and weights. We discussed that he will need to plan soon for dialysis catheter/fistula placement soon at his local [facility] dialysis clinic in [place]. I discussed that the decision to stat dialysis is decided by a decision with Dr. Armenta and him. Patient and verbalized understanding. Contact information for Kidney Kettle Coordinator nurse was provided. Patient will be scheduled for follow up with Kidney Kettle Coordinator nurse. [place] COMMUNITY MANAGER documented in this encounter Plan of Treatment Upcoming Encounters Date Type Department Care Team (Latest Contact Info) Description 08/19/2023 3:00 PM CDT Clinical Communication Virtual Review in [place], [place] [address] [place] [address] 08/21/2023 1:30 PM CDT Comprehensive Visit Division of Pulmonary Medicine in [place], [place] [address] [place] [phone] Gallito Crabtree M.D. [address] [place] [phone] 09/08/2023 10:00 AM CDT Appointment Department of Laboratory Medicine in [place], [place] [address] [place] [address] [phone] Sera Casiano M.D., Ph.D. [address] [place] [phone] 09/08/2023 10:10 AM CDT Appointment Department of Laboratory Medicine in [place], [place] [address] [place] [address] [phone] Sera Casiano M.D., Ph.D. [address] [place] [phone] 09/28/2023 8:15 AM CDT Hospital Encounter Outpatient Surgery Unit in [place], [place] [address] [place] [phone] Sandeep Kuo M.D., Ph.D. [address] [place] [phone] 09/28/2023 8:15 AM CDT - 09/28/2023 11:06 AM CDT Surgery [facility] [address] [place] [address] Sandeep Kuo M.D., Ph.D. 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 [address] [place] [phone] PCP - General Internal Medicine 11/23/17 documented as of this encounter
--- OUTSIDE RECORDS SUMMARY | 2023-08-16 13:58 | XMS_ITS | Encounter Summary ---
Author Name Unknown Organization [facility] Address [address] [place] [address] Care Team Providers Care Belt Turner Name Role Phone Clover Delaney M.D. Primary Care Provider [phone]- [phone] Encounter Details Date Type Department Care Team (Latest Contact Info) Description 06/15/2023 3:20 PM OFFSET PROOF PRESS OPERATOR - 06/15/2023 11:59 PM [facility] Hospital Encounter Department of Laboratory Medicine and Pathology, [facility], in [place], [place] [address] [place] [address] Sera Casiano M.D., Ph.D. [address] [place] [phone] Chronic Kidney Disease Stage 5 Glomerular Filtration [...] often do you attend chur ch or zoroastrian services? Never 07/28/2022 Do you [...] Answer Date Recorded PHQ-2 Score 2 05/28/2023 [facility] of Occupat ional Health - Occupational Stress [...] Sex Assigned at Male 05/13/2021 10:11 AM OFFSET PROOF PRESS OPERATOR Gender Identity Male 11/02/2017 7:22 PM CDT Sexual Orientation Straight 11/02/2017 7: 22 PM CDT documented as of this encounter Medications at Time of Discharge Medication Sig Dispensed Refills Start Date End Date aspirin 81 mg chewable tablet Chew 1 tablet (81 mg total) daily. 90 tablet 3 01/06/2020 BD Ultra-Fine Josefina Pen Needle 32 gauge [...] Apnea Adult DME Order 1 each 08/27/2021 FLUoxetine (PROzac) 10 mg capsule Take 1 capsule (10 mg total) by mouth daily. 90 capsule 1 06/05/2023 iron,carbonyl-vitamin C (VITRON-C) 65 mg iron- [address] tablet Take 65 mg of iron by mouth daily. Do not crush or chew. loperamide (IMODIUM A-D) 2 mg tablet Take 2 mg by mouth as needed. miscellaneous medical supply [facility] [...] each, 0 Refill(s) 10/20/2016 miscellaneous medical supply [facility] Head Gear for CPAP Machine See Instructions, fax to patient at [phone], 1 each 01/17/2014 MULTIVITAMIN ORAL Daily Multiple Vitamins See Instructions, Take 1 tablet by mouth daily. 07/23/2013 ONETOUCH DELICA LANCETS 33 gauge [facility] 3 08/02/2018 OneTouch Ultra Test StripsIndications:Diabet es [...] inject insulin daily 100 each 3 03/31/2022 amLODIPine (NORVASC) 5 mg tablet Take 1 tablet (5 mg total) by mouth daily. 90 tablet 3 05/29/2023 06/16/2023 doxazosin (CARDURA) 2 mg tablet Take 1 tablet (2 mg total) by mouth daily. 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 1 each 1 06/09/2022 06/29/2023 glipiZIDE (GLUCOTROL XL) 10 mg 24 hr tabletIndications:Diabet es Mellitus Type 2 With Proliferative Diabetic Retinopathy Without Macular Edema Bilateral (HCC) Take 2 tablets (20 mg total) by mouth daily. 180 tablet 3 05/29/2023 06/29/2023 insulin glargine (Lantus Solostar U-100 Insulin) 100 unit/mL (3 mL) injectionIndications:Subha betes Mellitus Type 2 Hyperglycemia (HCC) Inject 16 Units under the skin at bedtime. 15 mL 3 03/16/2023 06/29/2023 irbesartan (AVAPRO) 75 mg tablet Take 1 tablet (75 mg total) by mouth daily. 90 tablet 3 07/29/2022 07/13/2023 torsemide (DEMADEX) 10 mg tablet Take 3 tablets (30 mg total) by mouth daily. 270 tablet 3 01/16/2023 06/26/2023 documented as of this encounter Plan of Treatment Upcoming Encounters Date Type Department Care Team (Latest Contact Info) Description 08/19/2023 3:00 PM CDT Clinical Communication Virtual Review in [place], [place] 200 [place] [address] 08/21/2023 1:30 PM CDT Comprehensive Visit Division of Pulmonary Medicine in [place], [place] [address] [place] [phone] Gallito Crabtree M.D. [address] [place] [phone] 09/08/2023 10:00 AM CDT Appointment Department of Laboratory Medicine in [place] [address] [place] [phone] Sera Casiano M.D., Ph.D. [address] [place] [phone] 09/08/2023 10:10 AM CDT Appointment Department of Laboratory Medicine in [place] [address] [place] [phone] Sera Casiano M.D., Ph.D. [address] [place] [phone] 09/28/2023 8:15 AM CDT Hospital Encounter Outpatient Surgery Unit in [place], [place] [address] [place] [phone] Sandeep Kuo M.D., Ph.D. [address] [place] [phone] 09/28/2023 8:15 AM CDT - 09/28/2023 11:06 AM CDT Surgery [facility] OR [address] [place] [phone] Sandeep Kuo M.D., Ph.D. 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 Rate Less Than 15 (HCC) HCV AB W/REFLEX TO HCV PCR, S Routine 06/15/2023 4:06 PM OFFSET PROOF PRESS OPERATOR Chronic Kidney Disease Stage 5 Glomerular Filtration Rate Less Than 15 (HCC) HBC TOTAL AB, SERUM Routine 06/15/2023 4 :06 PM OFFSET PROOF PRESS OPERATOR Chronic Kidney Disease Stage 5 Glomerular Filtration Rate Less Than 15 (HCC) HBS ANTIBODY, SERUM Routine 06/15/2023 4 :06 PM OFFSET PROOF PRESS OPERATOR Chronic Kidney Disease Stage 5 Glomerular Filtration Rate Less Than 15 (HCC) HEPATITIS B SURFACE ANTIGEN Routine 06/15/2023 4:06 PM OFFSET PROOF PRESS OPERATOR Chronic Kidney Disease Stage 5 Glomerular Filtration Rate Less Than 15 (HCC) BASIC METABOLIC PANEL, S/P Routine 06/15/2023 4:06 PM OFFSET PROOF PRESS OPERATOR Chronic Kidney Disease Stage 5 Glomerular Filtration Rate Less Than 15 (HCC) documented in this encounter Results * QuantiFERON-Tb Gold Plus, Blood (06/15/2023 4:07 PM OFFSET PROOF PRESS OPERATOR) [facility] QuantiFERON-TB Gold Plus Result Negative Negative 06/16/2023 12:08 PM OFFSET PROOF PRESS OPERATOR [facility] Comment: No interferon-gamma response to M. tuberculosis antigens was detected. Latent infection with M. tuberculosis is unlikely. A single negative result does not exclude infection with M. tuberculosis. In patients at high risk for M.tuberculosis infection, a second test should be considered in accordance with the 2017 ATS/IDSA/CDC Clinical Practice Guidelines for Diagnosis of Tuberculosis in Adults and Children [Lewinsohn DM et. al. Clin. Infect. Dis. 2017;64(2):111-115]. The reference range for the 'TB1 Ag minus Nil Result' and 'TB2 Ag minus Nil Result' is an Interferon-gamma level <0.35 IU/mL. TB1 Ag minus Nil Result 0.02 IU/mL 06/16/2023 12:08 PM OFFSET PROOF PRESS OPERATOR [facility] TB2 Ag minus Nil Result 0.01 IU/mL 06/16/2023 12:08 PM OFFSET PROOF PRESS OPERATOR [facility] Mitogen minus Nil Result 3.42 IU/mL 06/16/2023 12:08 PM OFFSET PROOF PRESS OPERATOR [facility] Nil Result 0.04 IU/mL 06/16/2023 12:08 PM OFFSET PROOF PRESS OPERATOR [facility] Blood (Blood, Venous) 06/15/2023 4:07 PM OFFSET PROOF PRESS OPERATOR 06/15/2023 5:59 PM OFFSET PROOF PRESS OPERATOR Narrative [facility] - 06/16/2023 12:08 PM OFFSET PROOF PRESS OPERATOR Specimen Information: Specimen ID: [id number] Specimen Type: Blood Specimen Collection Start Date: 06/15/2023 ??4:07 PM Specimen Received Date: 06/15/2023 ??5:59 PM Specimen ID: [id number] Specimen Type: Blood Specimen Collection Start Date: 06/15/2023 ??4:07 PM Specimen Received Date: 06/15/2023 ??5:59 PM Specimen ID: [id number] Specimen Type: Blood Specimen Collection Start Date: 06/15/2023 ??4:07 PM Specimen Received Date: 06/15/2023 ??5:59 PM Specimen ID: [id number] Specimen Type: Blood Specimen Collection Start Date: 06/15/2023 ??4:07 PM Specimen Received Date: 06/15/2023 ??5:59 PM Sera Hyman M.D., Ph.D. LAB [facility] [facility] - BLOOD ORDERABLES [facility] [address] [place] [address] [facility] Laboratories [facility] [address] [place] [address] * (ABNORMAL) Basic Metabolic Panel (06/15/2023 4:06 PM OFFSET PROOF PRESS OPERATOR) Pathologist [facility] Potassium, S 5.6(H) 3.6 - 5.2 mmol/L 06/15/2023 4:59 PM OFFSET PROOF PRESS OPERATOR DTL Sodium, S 142 135 - 145 mmol/L 06/15/2023 4:59 PM OFFSET PROOF PRESS OPERATOR DTL Chloride, S 105 98 - 107 mmol/L 06/15/2023 4:59 PM OFFSET PROOF PRESS OPERATOR DTL Bicarbonate, S 23 22 - 29 mmol/L 06/15/2023 4:59 PM OFFSET PROOF PRESS OPERATOR DTL Anion Gap 14 7 - 15 06/15/2023 4:59 PM OFFSET PROOF PRESS OPERATOR DTL BUN (Blood Urea Nitrogen), S 68(H) 8 - 24 mg/dL 06/15/2023 4:59 PM OFFSET PROOF PRESS OPERATOR DTL Creatinine 4.61(H) 0.74 - 1.35 mg/dL 06/15/2023 4:59 PM OFFSET PROOF PRESS OPERATOR DTL Estimated GFR (eGFR) <15(L) >=60 mL/min/BSA 06/15/2023 4:59 PM OFFSET PROOF PRESS OPERATOR DTL Comment: Estimated GFR calculated using the 2020 CKD_EPI creatinine equation. Calcium, Total, S 8.8 8.8 - 10.2 mg/dL 06/15/2023 4:59 PM OFFSET PROOF PRESS OPERATOR DTL Glucose, S 130 70 - 140 mg/dL 06/15/2023 4:59 PM OFFSET PROOF PRESS OPERATOR DTL Blood (Blood, Venous) 06/15/2023 4:06 PM OFFSET PROOF PRESS OPERATOR 06/15/2023 4:42 PM OFFSET PROOF PRESS OPERATOR Sera Hyamn M.D., Ph.D. LAB BL OOD ADD-ON [facility] [address] [place] [address], [facility] [address] [place] [address] * Hepatitis B Surface Antigen (06/15/2023 4:06 PM OFFSET PROOF PRESS OPERATOR) Pathologist [facility] HBs Antigen, S Negative Negative 06/15/2023 10:03 PM OFFSET PROOF PRESS OPERATOR [facility] Blood (Blood, Venous) 06/15/2023 4:06 PM OFFSET PROOF PRESS OPERATOR 06/15/2023 8:15 PM OFFSET PROOF PRESS OPERATOR Sera Hymna M.D., Ph.D. [facility] [address] [place] [address] [facility] [address] [place] [address] * HCV Ab w/Reflex to HCV PCR, Serum (06/15/2023 4:06 PM OFFSET PROOF PRESS OPERATOR) HCV Ab, S Negative Negative 06/15/2023 10:21 PM OFFSET PROOF PRESS OPERATOR [facility] Comment:Pwpcec-[id number] rat io is <1.00. Blood (Blood, Venous) 06/15/2023 4:06 PM OFFSET PROOF PRESS OPERATOR 06/15/2023 8:15 PM OFFSET PROOF PRESS OPERATOR Sera Hyman M.D., Ph.D. LAB [facility] BLOOD ORDERABLES Performing Organization Address City/[facility]/ZIP Co de Phone Number [facility] [address] [place] [address] [facility] [address] [place] [address] * HBc Total Ab, Serum (06/15/2023 4:06 PM OFFSET PROOF PRESS OPERATOR) HBc Total Ab, S Negative Negative 06/15/2023 10:17 PM OFFSET PROOF PRESS OPERATOR [facility] Blood (Blood, Venous) 06/15/2023 4:06 PM OFFSET PROOF PRESS OPERATOR 06/15/2023 8:15 PM OFFSET PROOF PRESS OPERATOR Sera Hyman M.D., Ph.D. LAB [facility] BLOOD ORDERABLES [facility] [address] [place] [address] [facility] [address] [place] [address] * HBs Antibody, Serum (06/15/2023 4:06 PM OFFSET PROOF PRESS OPERATOR) HBs Antibody, S Negative 06/15/2023 10:18 PM OFFSET PROOF PRESS OPERATOR [facility] Comment: Patient is presumed to be not immune to infection with HBV. ----REFERENCE VALUE---- Unvaccinated: Negative Vaccinated: Positive HBs Antibody, Quantitative, S <5.0 mIU/mL 06/15/2023 10:18 PM OFFSET PROOF PRESS OPERATOR [facility] Comment: ----REFERENCE VALUE---- Unvaccinated: <5.0 Vaccinated: >=12.0 Blood (Blood, Venous) 06/15/2023 4:06 PM OFFSET PROOF PRESS OPERATOR 06/15/2023 8:15 PM OFFSET PROOF PRESS OPERATOR Sera Hyman M.D., Ph.D. LAB [place] [facility] - BLOOD ORDERABLES [facility] [address] [place] [address] [facility] [address] 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 [address] [place] [phone] PCP - General Internal Medicine 11/23/17 documented as of this encounter
--- OUTSIDE RECORDS SUMMARY | 2023-08-16 13:58 | XMS_ITS | Encounter Summary ---
Author Name Unknown Organization [facility] Address [address] [place] [address] Care Team Providers Care Dorr Operator Name Role Phone Clover Delaney M.D. Primary Care Provider [phone]- [phone] Encounter Details Date Type Department Care Team (Late st Contact Info) Description 06/15/2023 Ancillary Procedure Department of Ophthalmology Social History [...] Answer Date Recorded PHQ-2 Score 2 05/28/2023 [facility] Occupat ional Health [...] Sex Assigned at Male 05/13/2021 10:11 AM ALTERATIONS SUPERVISOR Gender Identity Male 11/02/2017 7:22 PM CDT Sexual Orientation Straight 11/02/2017 7: 22 PM CDT documented as of this encounter Plan of Treatment Upcoming Encounters Date Type Department Care Team (Latest Contact Info) Description 08/19/2023 3:00 PM CDT Clinical Communication Virtual Review in [place], [place] [address] [place] [address] 08/21/2023 1:30 PM CDT Comprehensive Visit Division of Pulmonary Medicine in [place], [place] [address] [place] [phone] Gallito Crabtree M.D. [address] [place] [phone] 09/08/2023 10:00 AM CDT Appointment Department of Laboratory Medicine in [place], [place] [address] [place] [address] Sera Casiano M.D., Ph.D. [address] [place] [phone] 09/08/2023 10:10 AM CDT Appointment Department of Laboratory Medicine in [place], [place] [address] [place] [address] Sera Casiano M.D., Ph.D. [address] [place] [phone] 09/28/2023 8:15 AM CDT Hospital Encounter Outpatient Surgery Unit in [place], [place] [address] [place] [phone] Sandeep Kuo M.D., Ph.D. [address] [place] [phone] 09/28/2023 8:15 AM CDT - 09/28/2023 11:06 AM CDT Surgery [facility] [address] [place] [address] Sandeep Kuo M.D., Ph.D. [address] [place] [phone] CREATION FISTULA BRACHIOCEPHALIC ARTERIOVENOUS Scheduled Procedures Name Priority Associated Diagnoses Date/Ti me CREATION 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) 09/28/2023 8:15 AM CDT documented as of this encounter Procedures Procedure Name Priority Date/Time Associated Diagnosis Comments OPHTHALMOLOGY IMAGE EXAM Routine 06/15/2023 12:00 AM ALTERATIONS SUPERVISOR documented in this encounter Results * Eyes Spectralis OCT-Ophthalmology Image Exam (06/15/2023 12:00 AM ALTERATIONS SUPERVISOR) Narrative [facility] - 06/15/2023 2:28 PM ALTERATIONS SUPERVISOR This order has been created and [...] Total Score: 4 06/06/19 23 2:04 PM ALTERATIONS SUPERVISOR documented as of this encounter Care Teams Dorr Operator Relationship Specialty Start Date End Date Clover Delaney M.D. [address] [place] [phone] PCP - General Internal Medicine 11/23/17 documented as of this encounter
--- OUTSIDE RECORDS SUMMARY | 2023-08-16 13:58 | XMS_ITS | Encounter Summary ---
Author Name Unknown Organization [facility] Address [address] [place] [address] Care Team Providers Care Supervisor Electronic Testing Name Role Phone Clover Delaney M.D. Primary Care Provider [phone] Reason for Referral * Outpatient (Routine) - Authorized Specialty Diagnoses / Procedures Referred By Yenny hunter Referred To Contact Endocrinology Diagnoses Diabetes Mellitus Type 2 (HCC) Cammy Silva M.D. [address] [place] [address] [facility] Referral ID Status Reason Start Date Expiration Date V isits Requested Visits Authorized [id number] Authorized 06/29/2023 12/28/2024 1 1 NICS SYSTEMS TECHNICIAN * Medication Prior Authorization - Closed Specialty Diagnoses / Procedures Referred By Yenny hunter Referred To Contact Diagnoses Morbid Obesity (HCC) Cammy Silva M.D. [address] [place] [address] Referral ID Status Reason Start Date Expiration Date Visits Re quested Visits Authorized [id number] Closed 1 1 NICS SYSTEMS TECHNICIAN * Medication Prior Authorization - Authorized Specialty Diagnoses / Procedures Referred By Contac t Referred To Contact Diagnoses Morbid Obesity (HCC) Cammy Silva M.D. [address] [place] [phone] Referral ID Status Reason Start Date Expiration Date V isits Requested Visits Authorized [id number] Authorized 07/01/2023 06/30/2024 1 1 NICS SYSTEMS TECHNICIAN * Medication Prior Authorization - Closed Specialty Diagnoses / Procedures Referred By Yenny t Referred To Contact Diagnoses Morbid Obesity (HCC) Cammy Silva M.D. [address] [place] [phone] Referral ID Status Reason Start Date Expiration Date Visits Re quested Visits Authorized [id number] Closed 1 1 NICS SYSTEMS TECHNICIAN * Medication Prior Authorization - Closed Specialty Diagnoses / Procedures Referred By Yenny hunter Referred To Contact Diagnoses Morbid Obesity (HCC) Cammy Silva M.D. [address] [place] [phone] Referral ID Status Reason Start Date Expiration Date Visits Re quested Visits Authorized [id number] Closed 1 1 NICS SYSTEMS TECHNICIAN * Specialty Diagnoses / Procedures Referred By Contanthony t Referred To Contact Cammy Silva M.D. [address] [place] [phone] [facility] Referral ID Status Reason Start Date Expiration Date Visits Re quested Visits Authorized NICS SYSTEMS TECHNICIAN Reason for Visit * Outpatient (Routine) - Closed Specialty Diagnoses / Procedures Referred By Yenny hunter Referred To Contact Endocrinology Diagnoses Hypertension And Chronic Kidney Disease Stage 5 (HCC) Proteinuria Sera Casiano M.D., Ph.D. [address] [place] [address] [facility] Referral ID Status Reason Start Date Expiration Date Visits Re quested Visits Authorized [id number] Closed 05/29/2023 11/27/2024 1 1 Encounter Details Date Type Department Care Team (Latest Contact Info) Description 06/29/2023 1:30 PM AVIONICS SYSTEMS TECHNICIAN Comprehensive Visit Division of Endocrinology in [place], [place] [address] [place] [phone] Sera Casiano M.D., Ph.D. [address] [place] [address] Cammy Silva M.D. [address] [place] [address] Diabetes Mellitus Type 2 (HCC) (Primary Dx); Hypertension And Chronic Kidney Disease Stage 5 (HCC); Proteinuria; Insufficiency Adrenal Secondary (HCC); Morbid Obesity (HCC) Social History Tobacco Use Types Packs/Day [...] Answer Date Recorded PHQ-2 Score 2 05/28/2023 [facility] - Occupational Stress Questionnaire Answer Date [...] Sex Assigned at Male 05/13/2021 10:11 AM AVIONICS SYSTEMS TECHNICIAN Gender Identity Male 11/02/2017 7:22 PM CDT Sexual Orientation Straight 11/02/2017 7: 22 PM CDT documented as of this encounter Last Filed Vital Signs Vital Sign Reading Time Taken Comments Blood Pressure - - Pulse - - Temperature - - Respiratory Rate - - Oxygen Saturation - - Inhaled Oxygen Concentration - - Weight 157 kg (345 lb 14.4 oz) 06/29/2023 1:19 P M AVIONICS SYSTEMS TECHNICIAN in shoes Height 176.9 cm (5' 9.65) 06/29/2023 1:19 PM CS T in shoes Body Mass Index 50.14 06/29/2023 1:19 PM AVIONICS SYSTEMS TECHNICIAN documented in this encounter Consult Notes * Cammy Silva M.D. - 06/29/2023 1:30 PM CST SUBJECTIVE CHIEF COMPLAINT / REASON FOR VISIT Philip Patel is a 77 y.o. male who presents for an evaluation of diabetes mellitus. 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 He reports being diagnosed with type 2 diabetes over 12-15 years ago through routine blood work. Hewas initially on metformin and has been on long-acting insulin for 8-10 years now. Metformin was eventually discontinued due to decline on renal function. His most recent GFR is <15 and he is now being prepared for hemodialysis which will be started within the next 3 months. He is also on ARB. He is currently on insulin Lantus 14 units at bedtime and glipizide 20 mg daily. He has been prescribed CGM Syncano Brionna 2 but unfortunately he has experienced difficulties obtaining data from thesensor. He has checked his capillary glucose through a meter but we were not able to obtain data ontoday's visit. I was able only to see the average glucose for the last 7, 14 and 30 days which has been ranging from 90-95 mg/dL. He reports experiencing fasting glucose always below 100 mg/dL and has now regularly taken glucose tablets to bring those numbers up to 100 mg/dL. He reports experiencing occasionally hypoglycemia symptoms but not objective evidence of glucose <70 mg/dL. His last HbA1C was 6.8% on 03/30/2023 with a hemoglobin level of 9.9%. His last LDL was 114 and he is not on statin therapy. 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 He has been following regularly with Ophthalmology here at [place]. Last visit on 06/15/2023. The following portions of the patient's history were reviewed and updated as appropriate: allergies, current medications, family history, medical history, social history, surgical history, and problem list. REVIEW OF SYSTEMS REVIEW OF SYSTEMS As HPI OBJECTIVE PHYSICAL EXAM Constitutional Appearance: Normal appearance. Feet Comments: Declined monofilament test as this will be performed by his PCP in November Neurological General: No focal deficit present. Mental Status: He is alert. Diagnostics Lab Results Component Value Date GLUCOSE 97 06/29/2023 Lab Results Component Value Date HGBA1C 6.8 (H) 03/30/2023 ASSESSMENT / PLAN #1 Type 2 diabetes mellitus, HbA1C 6.8% in the context of chronic normocytic anemia #2 Chronic kidney disease stage 5 on preparation for hemodialysis #3 Morbid obesity BMI 50 #4 High ASCVD with LDL 114 #5 On chronic glucocorticoid therapy for vasculitis management, likely high risk for secondary adrenal insufficiency We discussed that due to chronic anemia, his HbA1C values could be impacted by it in terms of interpretation. However, with the limited information obtained from glucometer and last HbA1C, one could conclude that his endogenous insulin production is preserved at this point in time. In addition, because weight management will have a positive impact on glycemic control and decreasing cardiovascular risk, we will start GIP/GLPA RA with Tirzepatide (Mounjaro) at 2.5 mg weekly and will be uptitrated to a maintenance dose of 10 mg to 12 mg weekly depending on medication tolerance. Patient was advised Mounjaro should be discontinued if develops pancreatitis, diarrhea, vomiting, heartburn, intractable abdominal pain, and to let me know about this. We expect an average of 15% weight loss within 12-18 months of Mounjaro use. Patient does not any contraindication for initiation ofMounjaro such as history of medullary thyroid carcinoma (MTC), personal or family history of Multiple Endocrine Neoplasia syndrome type 2 (MEN 2), nor history of pancreatitis or pancreatic cancer. We have set up glucose target goals as fasting glucose to be <150 mg/dL and postprandial glucose<200 mg/dL. The safest strategy is to avoid hypoglycemia events which are most likely to occur with glipizide and supratherapeutic doses of long acting insulin. We recommend stopping glipizide altogether now, and continue insulin Lantus 10 units at bedtime until pharmacy delivers Mounjaro. Once he starts Mounjaro, he should stop insulin Lantus altogether. He could monitor capillary glucose only 2-3 times a week at fasting. We will also recommend starting high intensity statin such as atorvastatin 40 mg daily aiming for an LDL >70. Regarding chronic glucocorticoid use, Pulmonology will evaluate whether patient should stop prednisone in an in person visit based on e-consultation note. 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 Evaluating endogenous cortisol production (AM cortisol holding prednisone for 24 hours) would be useful to safely discontinue prednisone. I have referred him to [facility] RN for further discussion of sick day rules, perioperative glucocorticoid management, and I have activated his adrenal action plan. Recommendations: - Stop glipizide now - Decrease insulin Lantus to 10 units nightly until tirzepatide is initiated. He is aware to decrease dosage by 2 units if fasting glucose is persistently found <100 mg/dL. Stop insulin altogetheronce Tirzepatide is initiated. - Start tirzepatide 2.5 mg weekly (week 1-4), then increase to 5 mg weekly (week 5-8), then increase to 7.5 mg weekly (week 9-12), and up to 10 mg weekly from week 13 and onwards. Based on medicationtolerance we can further increase the dose up to 12 mg weekly. He is aware to stop medication if experiencing severe nausea, vomiting, abdominal pain, diarrhea/constipation and notify me through portal messaging system. 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 To be determined by Pulmonology. - HbA1C and lipid panel in 6 months - Return visit [facility] at [facility] Complications: proliferative diabetic retinopathy, Chronic kidney disease stage 5, and peripheral neuropathy Self-monitoring of blood glucose: 2-3 days/week, Goal hemoglobin A1C: less than 8 Goal capillary plasma glucose: fasting and preprandial 100-140 mg/dL Frequency of hemoglobin A1C measurement: Every 6 months Frequency of eye exam: as determined by Ophthalmology Patient verbalized understanding and agreed with plan. Case seen and discussed with Supervisor Steno Pool Dr. Ochoa. Cammy Jacques MD Endocrinology Fellow Pager [phone] NICS SYSTEMS TECHNICIAN Associated attestation - Edmundo Ochoa M.D. - 06/29/2023 4:08 PM AVIONICS SYSTEMS TECHNICIAN I saw and evaluated the patient, participating in the thakkar portions of the service. I reviewed the fellow???s note. I agree with the fellow???s findings and plan. documented in this encounter Plan of Treatment Upcoming Encounters Date Type Department Care Team (Latest Contact Info) Description 08/19/2023 3:00 PM CDT Clinical Communication Virtual Review in [place], [place] [address] [place] [address] 08/21/2023 1:30 PM CDT Comprehensive Visit Division of Pulmonary Medicine in [address] [phone] Gallito Crabtree M.D. [address] [place] [phone] 09/08/2023 10:00 AM CDT Appointment Department of Laboratory Medicine in [place] [address] [place] [address] Sera Casiano M.D., Ph.D. [address] [place] [phone] 09/08/2023 10:10 AM CDT Appointment Department of Laboratory Medicine in [place] [address] [place] [address] Sera Casiano M.D., Ph.D. [address] [place] [phone] 09/28/2023 8:15 AM CDT Hospital Encounter Outpatient Surgery Unit in [address] [phone] Sandeep Kuo M.D., Ph.D. [address] [place] [phone] 09/28/2023 8:15 AM CDT - 09/28/2023 11:06 AM CDT Surgery [facility] [address] [place] [address] Sandeep Kuo M.D., Ph.D. [address] [place] [address] CREATION FISTULA BRACHIOCEPHALIC ARTERIOVENOUS Scheduled Orders Name Type Priority Associated Diagnoses Orde r Schedule Hemoglobin A1c Lab Routine Diabetes Mellitus Type 2 (HCC) Expected: 12/30/2023 (Approximate), Expires: 09/28/2024 Lipid Panel Lab Routine Diabetes Mellitus Type 2 (HCC) Expected: 12/30/2023 (Approximate), Expires: 09/28/2024 Scheduled Procedures Name Priority Associated Diagnoses Date/Ti me CREATION 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) 09/28/2023 8:15 AM CDT Scheduled Referrals Name Type Priority Associated Diagnoses Order Schedule Endocrinology - [facility] nurse education visit (clinic) Outpatient Referral Routine Insufficiency Adrenal Secondary (HCC) Expected: 12/30/2023 (Approximate), Expires: 09/28/2024 Endocrinology office visit (clinic) Outpatient Referral Routine Diabetes Mellitus Type 2 (HCC) Expected: 12/30/2023 (Approximate), Expires: 09/28/2024 documented as of this encounter Visit Diagnoses Diagnosis Diabetes Mellitus Type 2 (HCC)- Primary Hypertension And Chronic Kidney Disease Stage 5 (HCC) Proteinuria Insufficiency Adrenal Secondary (HCC) Morbid Obesity (HCC) Failure Renal End Stage (HCC) documented in this encounter Additional Health Concerns Assessment Noted Time PHQ-9 Depression Total Score: 4 06/06/19 23 2:04 PM AVIONICS SYSTEMS TECHNICIAN documented as of this encounter Care Teams Supervisor Electronic Testing Relationship Specialty Start Date End Date Clover Delaney M.D. [address] [place] [phone] PCP - General Internal Medicine 11/23/17 documented as of this encounter
--- OUTSIDE RECORDS SUMMARY | 2023-08-16 13:58 | XMS_ITS | Encounter Summary ---
Author Name Unknown Organization [facility] Address [address] [place] [address] Care Team Providers Care Painting Contractor Name Role Phone Clover Delaney M.D. Primary Care Provider [phone]- [phone] Encounter Details Date Type Department Care Team (Latest Contact Info) Description 06/29/2023 11:47 AM AUTOMOTIVE ENGINEERING TEACHER - 06/29/2023 11:59 PM [facility] Hospital Encounter Department of Laboratory Medicine and Pathology, [facility], in [place], [place] [address] [place] [phone] Sera Casiano M.D., Ph.D. [address] [place] [phone] Hyperkalemia; Anemia Of Renal Failure Chronic Kidney [...] Answer Date Recorded PHQ-2 Score 2 05/28/2023 [facility] - Occupational Stress [...] Sex Assigned at Male 05/13/2021 10:11 AM AUTOMOTIVE ENGINEERING TEACHER Gender Identity Male 11/02/2017 7:22 PM [...] by mouth as needed. miscellaneous medical supply [facility] CPAP Supplies See Instructions, CPAP machine, mask 1 ea x 4 refills, headgear 1 ea x 2 refills, tubing 1 ea x 4 refills, filters 2 ea per month, tub 1 ea x 2 refills, mask seal 1 ea x 2 refills DX G47.33, length of need 99, 1 each, 0 Refill(s) 10/20/2016 miscellaneous medical supply [facility] Head Gear for CPAP Machine See Instructions, fax to patient at [phone], 1 each 01/17/2014 MULTIVITAMIN ORAL Daily Multiple Vitamins See Instructions, Take 1 tablet by mouth daily. 07/23/2013 ONETOUCH DELICA LANCETS 33 gauge [facility] 3 08/02/2018 OneTouch Ultra Test StripsIndications:Diabet es [...] PM CDT Clinical Communication Virtual Review in [place], [place] [address] [place] [address] 08/21/2023 1:30 PM CDT Comprehensive Visit Division of Pulmonary Medicine in [place], [place] [address] [place] [phone] Gallito Crabtree M.D. [address] [place] [phone] 09/08/2023 10:00 AM CDT Appointment Department of Laboratory Medicine in [place] [address] [place] [address] Sera Casiano M.D., Ph.D. [address] [place] [phone] 09/08/2023 10:10 AM CDT Appointment Department of Laboratory Medicine in [place], [place] [address] [place] [address] Sera Casiano M.D., Ph.D. [address] [place] [phone] 09/28/2023 8:15 AM CDT Hospital Encounter Outpatient Surgery Unit in [place], [place] [address] [place] [phone] Sandeep Kuo M.D., Ph.D. [address] [place] [address] 09/28/2023 8:15 AM CDT - 09/28/2023 11:06 AM CDT Surgery [facility] [address] [place] [address] Sandeep Kuo M.D., Ph.D. [address] [place] [address] CREATION FISTULA BRACHIOCEPHALIC ARTERIOVENOUS Scheduled Procedures Name Priority Associated Diagnoses Date/Ti me CREATION 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) 09/28/2023 8:15 AM CDT documented as of this encounter Procedures Procedure Name Priority Date/Time Associated Diagnosis Comments RENAL FUNCTION PANEL, S Routine 06/29/2023 12:11 PM AUTOMOTIVE ENGINEERING TEACHER Hyperkalemia IRON AND TOT IRON-BINDING CAPACITY, S/P Routine 06/29/2023 12:11 PM AUTOMOTIVE ENGINEERING TEACHER 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 FERRITIN, S Routine 06/29/2023 12:11 PM AUTOMOTIVE ENGINEERING TEACHER 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 documented in this encounter Results * (ABNORMAL) Ferritin (06/29/2023 12:11 PM AUTOMOTIVE ENGINEERING TEACHER) Ferritin, S 487(H) 31 - 409 mcg/L 06/29/2023 1:44 PM AUTOMOTIVE ENGINEERING TEACHER DTL Blood (Blood, Venous) 06/29/2023 12:11 PM AUTOMOTIVE ENGINEERING TEACHER 06/29/2023 12:47 PM AUTOMOTIVE ENGINEERING TEACHER Sera Hyman M.D., Ph.D. LAB BL OOD ADD-ON [facility] [address] [place] [address], [place] DTL [facility] [address] [place] [address] * (ABNORMAL) Iron and Total Iron-Binding Capacity (06/29/2023 12:11 PM AUTOMOTIVE ENGINEERING TEACHER) Iron 51 50 - 150 mcg/dL 06/29/2023 1:44 PM AUTOMOTIVE ENGINEERING TEACHER DTL Total Iron Binding Capacity 221(L) 250 - 400 mcg/dL 06/29/2023 1:44 PM AUTOMOTIVE ENGINEERING TEACHER DTL Percent Saturation 23 14 - 50 % 06/29/2023 1:44 PM AUTOMOTIVE ENGINEERING TEACHER DTL Blood (Blood, Venous) 06/29/2023 12:11 PM AUTOMOTIVE ENGINEERING TEACHER 06/29/2023 12:47 PM AUTOMOTIVE ENGINEERING TEACHER Sera Hyman M.D., Ph.D. LAB BL OOD ADD-ON [facility] [address] [place] [address], [facility] [address] [place] [address] * (ABNORMAL) Renal Function Panel (06/29/2023 12:11 PM AUTOMOTIVE ENGINEERING TEACHER) Pathologist [facility] Potassium, S 4.5 3.6 - 5.2 mmol/L 06/29/2023 1:44 PM AUTOMOTIVE ENGINEERING TEACHER DTL Sodium, S 143 135 - 145 mmol/L 06/29/2023 1:44 PM AUTOMOTIVE ENGINEERING TEACHER DTL Chloride, S 104 98 - 107 mmol/L 06/29/2023 1:44 PM AUTOMOTIVE ENGINEERING TEACHER DTL Bicarbonate, S 24 22 - 29 mmol/L 06/29/2023 1:44 PM AUTOMOTIVE ENGINEERING TEACHER DTL Anion Gap 15 7 - 15 06/29/2023 1:44 PM AUTOMOTIVE ENGINEERING TEACHER DTL BUN (Blood Urea Nitrogen), S 69(H) 8 - 24 mg/dL 06/29/2023 1:44 PM AUTOMOTIVE ENGINEERING TEACHER DTL Creatinine 4.51(H) 0.74 - 1.35 mg/dL 06/29/2023 1:44 PM AUTOMOTIVE ENGINEERING TEACHER DTL Estimated GFR (eGFR) <15(L) >=60 mL/min/BSA 06/29/2023 1:44 PM AUTOMOTIVE ENGINEERING TEACHER DTL Comment: Estimated GFR calculated using the 2020 CKD_EPI creatinine equation. Calcium, Total, S 8.5(L) 8.8 - 10.2 mg/dL 06/29/2023 1:44 PM AUTOMOTIVE ENGINEERING TEACHER DTL Glucose, S 97 70 - 140 mg/dL 06/29/2023 1:44 PM AUTOMOTIVE ENGINEERING TEACHER DTL Albumin, S 4.0 3.5 - 5.0 g/dL 06/29/2023 1:44 PM AUTOMOTIVE ENGINEERING TEACHER DTL Phosphorus (Inorganic), S 4.9(H) 2.5 - 4.5 mg/dL 06/29/2023 1:44 PM AUTOMOTIVE ENGINEERING TEACHER DTL Blood (Blood, Venous) 06/29/2023 12:11 PM AUTOMOTIVE ENGINEERING TEACHER 06/29/2023 12:47 PM AUTOMOTIVE ENGINEERING TEACHER Sera Hyman M.D., Ph.D. LAB BL OOD ADD-ON [facility] [address] [place] [address], [facility] DTL [facility] [address] [place] [phone] documented in this encounter Visit Diagnoses Diagnosis Hyperkalemia 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 Failure Renal End Stage (HCC) documented in this encounter Additional Health Concerns Assessment Noted Time PHQ-9 Depression Total Score: 4 06/06/19 23 2:04 PM AUTOMOTIVE ENGINEERING TEACHER documented as of this encounter Care Teams Painting Contractor Relationship Specialty Start Date End Date Clover Delaney M.D. [address] [place] [address] PCP - General Internal Medicine 11/23/17 documented as of this encounter
--- OUTSIDE RECORDS SUMMARY | 2023-08-16 13:58 | XMS_ITS | Encounter Summary ---
Author Name Unknown Organization [facility] Address [address] [place] [address] Care Team Providers Care Blend Plant Operator Name Role Phone Clover Delaney M.D. Primary Care Provider +1- [phone] Reason for Referral * Outpatient (Routine) - Closed Specialty Diagnoses / Procedures Referred By Contanthony t Referred To Contact Nephrology and Hypertension Sera Casiano M.D., Ph.D. [address] [place] [phone] [facility] Referral ID Status Reason Start Date Expiration Date Visits Re quested Visits Authorized [id number] Closed 06/15/2023 12/14/2024 1 1 Scheduling Instructions 4 PM OR OUTSIDE SALES REPRESENTATIVE Encounter Details Date Type Department Care Team (Late st Contact Info) Description 06/15/2023 Orders Only Division of Nephrology and Hypertension in [place], [place] [address] [place] [phone] Sera Casiano M.D., Ph.D. [address] [place] [phone] Chronic Kidney Disease Stage 5 Glomerular Filtration [...] Answer Date Recorded PHQ-2 Score 2 05/28/2023 [facility] of Occupat ional Health - Occupational Stress [...] Assigned at Male 05/13/2021 10:11 AM SENIOR OUTSIDE SALES REPRESENTATIVE Gender Identity Male 11/02/2017 7:22 PM CDT Sexual Orientation Straight 11/02/2017 7: 22 PM CDT documented as of this encounter Plan of Treatment Upcoming Encounters Date Type Department Care Team (Latest Contact Info) Description 08/19/2023 3:00 PM CDT Clinical Communication Virtual Review in [place], [place] 200 [place] [address] 08/21/2023 1:30 PM CDT Comprehensive Visit Division of Pulmonary Medicine in [address] [phone] Gallito Crabtree M.D. [address] [place] [phone] 09/08/2023 10:00 AM CDT Appointment Department of Laboratory Medicine in [place] [address] [place] [address] Sera Casiano M.D., Ph.D. [address] [place] [phone] 09/08/2023 10:10 AM CDT Appointment Department of Laboratory Medicine in [place], [place] [address] [place] [phone] Sera Casiano M.D., Ph.D. [address] [place] [phone] 09/28/2023 8:15 AM CDT Hospital Encounter Outpatient Surgery Unit in [address] [address] Sandeep Kuo M.D., Ph.D. [address] [place] [address] 09/28/2023 8:15 AM CDT - 09/28/2023 11:06 AM CDT Surgery [facility] OR [address] [place] [address] Sandeep Kuo M.D., Ph.D. 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) 09/28/2023 8:15 AM CDT Scheduled Referrals Name Type Priority Associated Diagnoses Order Schedule Nephrology and Hypertension office visit (clinic) Outpatient Referral Routine Expected: 06/26/2023, Expires: 09/12/2024 documented as of this encounter Results * (ABNORMAL) Basic Metabolic Panel (06/15/2023 4:06 PM SENIOR OUTSIDE SALES REPRESENTATIVE) Potassium, S 5.6(H) 3.6 - 5.2 mmol/L 06/15/2023 4:59 PM SENIOR OUTSIDE SALES REPRESENTATIVE DTL Sodium, S 142 135 - 145 mmol/L 06/15/2023 4:59 PM SENIOR OUTSIDE SALES REPRESENTATIVE DTL Chloride, S 105 98 - 107 mmol/L 06/15/2023 4:59 PM SENIOR OUTSIDE SALES REPRESENTATIVE DTL Bicarbonate, S 23 22 - 29 mmol/L 06/15/2023 4:59 PM SENIOR OUTSIDE SALES REPRESENTATIVE DTL Anion Gap 14 7 - 15 06/15/2023 4:59 PM SENIOR OUTSIDE SALES REPRESENTATIVE DTL BUN (Blood Urea Nitrogen), S 68(H) 8 - 24 mg/dL 06/15/2023 4:59 PM SENIOR OUTSIDE SALES REPRESENTATIVE DTL Creatinine 4.61(H) 0.74 - 1.35 mg/dL 06/15/2023 4:59 PM SENIOR OUTSIDE SALES REPRESENTATIVE DTL Estimated GFR (eGFR) <15(L) >=60 mL/min/BSA 06/15/2023 4:59 PM SENIOR OUTSIDE SALES REPRESENTATIVE DTL Comment: Estimated GFR calculated using the 2020 CKD_EPI creatinine equation. Calcium, Total, S 8.8 8.8 - 10.2 mg/dL 06/15/2023 4:59 PM SENIOR OUTSIDE SALES REPRESENTATIVE DTL Glucose, S 130 70 - 140 mg/dL 06/15/2023 4:59 PM SENIOR OUTSIDE SALES REPRESENTATIVE DTL Blood (Blood, Venous) 06/15/2023 4:06 PM SENIOR OUTSIDE SALES REPRESENTATIVE 06/15/2023 4:42 PM SENIOR OUTSIDE SALES REPRESENTATIVE Sera Hyman M.D., Ph.D. LAB BL OOD ADD-ON [facility] [address] [place] [address], [facility] [place] [place] [address] [place] [address] documented in this encounter Visit Diagnoses Diagnosis Chronic Kidney Disease Stage 5 Glomerular Filtration Rate Less Than 15 (HCC)- Primary Failure Renal End Stage (HCC) documented in this encounter Additional Health Concerns Assessment Noted Time PHQ-9 Depression Total Score: 4 06/06/19 23 2:04 PM SENIOR OUTSIDE SALES REPRESENTATIVE documented as of this encounter Care Teams Blend Plant Operator Relationship Specialty Start Date End Date Clover Delaney M.D. [address] [place] [phone] PCP - General Internal Medicine 11/23/17 documented as of this encounter
--- OUTSIDE RECORDS SUMMARY | 2023-08-16 13:58 | XMS_ITS | Encounter Summary ---
Author Name Unknown Organization [facility] Address [address] [place] [address] Care Team Providers Care Civil Engineering Designer Name Role Phone Clover Delaney M.D. Primary Care Provider [phone]- [phone] Reason for Visit * Outpatient (Routine) - Closed Specialty Diagnoses / Procedures Referred By Contac t Referred To Contact Pulmonary Medicine Diagnoses 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) Procedures Pulmonary Medicine - Abnormal CXR or CT eConsult Sera Casiano M.D., Ph.D. [address] [place] [phone] [facility] Referral ID Status Reason Start Date Expiration Date Visits Re quested Visits Authorized [id number] Closed 06/01/2023 05/31/2024 1 1 Encounter Details Date Type Department Care Team (Latest Contact Info) Description 06/26/2023 8:15 AM LAWN MOWER OPERATOR Internal E-Consult Division of Pulmonary Medicine in [place], [place] [address] [place] [phone] Louie Aleman M.D. [address] [place] [phone] 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) Social History Tobacco Use Types Packs/Day [...] Answer Date Recorded PHQ-2 Score 2 05/28/2023 [facility] - Occupational Stress Questionnaire Answer [...] Assigned at Male 05/13/2021 10:11 AM LAWN MOWER OPERATOR Gender Identity Male 11/02/2017 7:22 PM CDT Sexual Orientation Straight 11/02/2017 7: 22 PM CDT documented as of this encounter Consult Notes * Louie Aleman M.D. - 06/26/2023 8:15 AM CST SUBJECTIVE This is an eConsult note. REFERRAL SOURCE Dr. Sera Hyman. REASON FOR CONSULT ANCA-associated vasculitis. HISTORY OF PRESENT ILLNESS Mr. 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 Review of Mr. Patel's medical records indicate that he has been seen by our Pulmonary colleague, Dr. Gallito Crabtree, for his ANCA-related vasculitis since 1997 with the last visits occurring in 2017. At that time Mr. Patel was felt to have inactive ANCA-related vasculitis. He was being treated for C. difficile infection. Prednisone dose reduction from 40 mg per day was advised. Mr. Patel's last visit in our Pulmonary Clinic occurred with Dr. Luis Carrion, in April 2018 atwhich time Mr. Patel had appeared to have no relevant symptoms related to his underlying vasculitis. Mr. Patel's prednisone dose at that time was 5 mg per day. I gather he has continued on this dose of prednisone since. Review of Mr. Patel's medical records indicate that his last chest imaging was a CT scan of the chest performed back in August of 2018. Pulmonary function testing was last performed in 2006 and demonstrated a complex restrictive pattern with a normal diffusing capacity. 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 Patel is a 77-year-old ex-smoker who has a history of ANCA-associated vasculitis dating back to the 1990s and was seen by our Pulmonary colleagues. He appears to have had mainly renal involvement. However, his pulmonary function testing back in 2006 demonstrated abnormal results. I gather that Mr. Patel's vasculitis is felt to have been inactive in recent years. However, it is difficult to comment on his current pulmonary aspects in the absence of relevant information such as recent chest imaging or pulmonary function testing. Mr. Patel would benefit from seeing one of our Pulmonary colleagues in Pulmonary Vasculitis Clinic for a reassessment of his ANCA-related vasculitis situation, particularly regarding the question of eventually discontinuing current low-dose prednisone treatment. Chest radiography and pulmonary function testing would be informative. #2 Abnormal pulmonary function results, 2006 #3 Chronic kidney disease, stage 5 #4 Hypertension #5 Anemia Louie Aleman M.D. CT CT Job ID: [id number] MOWER OPERATOR documented in this encounter Plan of Treatment Upcoming Encounters Date Type Department Care Team (Latest Contact Info) Description 08/19/2023 3:00 PM CDT Clinical Communication Virtual Review in [place], [place] 200 [place] [address] 08/21/2023 1:30 PM CDT Comprehensive Visit Division of Pulmonary Medicine in [place], [place] [address] [place] [phone] Gallito Crabtree M.D. [address] [place] [phone] 09/08/2023 10:00 AM CDT Appointment Department of Laboratory Medicine in [address] [place] [phone] Sera Casiano M.D., Ph.D. [address] [place] [phone] 09/08/2023 10:10 AM CDT Appointment Department of Laboratory Medicine in [place], [place] [address] [place] [address] Sera Casiano M.D., Ph.D. [address] [place] [phone] 09/28/2023 8:15 AM CDT Hospital Encounter Outpatient Surgery Unit in [place], [place] [address] [place] [address] Sandeep Kuo M.D., Ph.D. [address] [place] [phone] 09/28/2023 8:15 AM CDT - 09/28/2023 11:06 AM CDT Surgery [facility] [address] [place] [address] Sandeep Kuo M.D., Ph.D. [address] [place] [phone] CREATION FISTULA BRACHIOCEPHALIC ARTERIOVENOUS Scheduled Procedures Name [...] Score: 4 06/06/19 23 2:04 PM LAWN MOWER OPERATOR documented as of this encounter Care Teams Civil Engineering Designer Relationship Specialty Start Date End Date Clover Delaney M.D. [address] [place] [phone] PCP - General Internal Medicine 11/23/17 documented as of this encounter
--- OUTSIDE RECORDS SUMMARY | 2023-08-16 13:58 | XMS_ITS | Encounter Summary ---
Author Name Unknown Organization [facility] Address [address] [place] [address] Care Team Providers Care Orthophotography Technician Name Role Phone Clover Delaney M.D. Primary Care Provider [phone]- [phone] Encounter Details Date Type Department Care Team (Late st Contact Info) Description 06/15/2023 Clinical Communication Division of Nephrology and Hypertension, [facility], in [place], [place] [address] [place] [address] Sandeep Galicia, RJosé LuisN. [address] [place] [phone] Social History Tobacco Use Types Packs/Day Years [...] do you attend chur or yarsanism services? Never 07/28/2022 Do you [...] Answer Date Recorded PHQ-2 Score 2 05/28/2023 [facility] of Occupat ional Health - Occupational [...] Sex Assigned at Male 05/13/2021 10:11 AM CONCESSIONIST Gender Identity Male 11/02/2017 7:22 PM CDT Sexual Orientation Straight 11/02/2017 7: 22 PM CDT documented as of this encounter Miscellaneous Notes * Telephone Encounter - Sandeep Galicia R.N. - 06/15/2023 3:04 PM CST I called patient to discuss that I spoke with Dr. North about him stopping Norvasc, and increasing Torsemide daily to 40 mg I discussed that she would like for him to get labs today as ordered by Dr. North and she would like to move his appointment up to ThursdayJune 25 at 3:45 pm. Patient verbalized understanding plan. ESSIONIST documented in this encounter Plan of Treatment Upcoming Encounters Date Type Department Care Team (Latest Contact Info) Description 08/19/2023 3:00 PM CDT Clinical Communication Virtual Review in [place], [place] 200 [place] [address] 08/21/2023 1:30 PM CDT Comprehensive Visit Division of Pulmonary Medicine in [address] [phone] Gallito Crabtree M.D. [address] [place] [phone] 09/08/2023 10:00 AM CDT Appointment Department of Laboratory Medicine in [place] [address] [place] [address] Sera Casiano M.D., Ph.D. [address] [place] [phone] 09/08/2023 10:10 AM CDT Appointment Department of Laboratory Medicine in [place] [address] [place] [address] Sera Casiano M.D., Ph.D. [address] [place] [phone] 09/28/2023 8:15 AM CDT Hospital Encounter Outpatient Surgery Unit in [address] [phone] Sandeep Kuo M.D., Ph.D. [address] [place] [phone] 09/28/2023 8:15 AM CDT - 09/28/2023 11:06 AM CDT Surgery [facility] OR [address] [place] [address] Sandeep Kuo M.D., Ph.D. 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 [address] [place] [phone] PCP - General Internal Medicine 11/23/17 documented as of this encounter
--- OUTSIDE RECORDS SUMMARY | 2023-08-16 13:59 | XMS_ITS | Encounter Summary ---
Author Name Unknown Organization [facility] Address [address] [place] [address] Care Team Providers Care Correctional Cook Name Role Phone Clover Delaney M.D. Primary Care Provider [phone]- [phone] Encounter Details Date Type Department Care Team (Late st Contact Info) Description 06/15/2023 1:00 PM CAR STEREO INSTALLER Education Division of Nephrology and Hypertension in [place], [place] [address] [place] [phone] Sera Casiano M.D., Ph.D. [address] [place] [phone] Sandeep Galicia, R.N. [address] [place] [phone] Chronic Kidney Disease Stage 5 Glomerular Filtration [...] Answer Date Recorded PHQ-2 Score 2 05/28/2023 [facility] [place] of Occupat ional Health - Occupational Stress [...] Sex Assigned at Male 05/13/2021 10:11 AM CAR STEREO INSTALLER Gender Identity Male 11/02/2017 7:22 PM CDT Sexual Orientation Straight 11/02/2017 7: 22 PM CDT documented as of this encounter Last Filed Vital Signs Vital Sign Reading Time Taken Comments Blood Pressure 189/70 06/15/2023 2:08 PM CAR STEREO INSTALLER Pulse 52 06/15/2023 2:08 PM CAR STEREO INSTALLER Temperature - - Respiratory Rate - - Oxygen Saturation - - Inhaled Oxygen Concentration - - Weight 157 kg (345 lb 7.4 oz) 06/15/2023 2:08 PM CAR STEREO INSTALLER Height - - Body Mass Index 49.18 05/29/2023 7:57 AM CAR STEREO INSTALLER documented in this encounter Progress Notes * Sandeep Galicia R.N. - 06/15/2023 1:00 PM CST Patient was here today for second education visit on renal replacement therapies with Kidney Bender Machine Nurse. Patient reports that he noted leg swelling so stopped taking Norvasc this past Thursday. I communicated to him that I would speak with Dr North and discuss stopping Norvasc and dialysis plan. Patient was noted to be hypertensive at 189/70, HR 52. We discussed starting in center hemodialysis, dialysis catheter placement and dialysis fistula at length with patient and . Patientinstructed to report to local ER or pimary if symptoms worsen. He reports that he feels better thanwhen we saw on May 29. Patient reported that he is comfortable starting in center hemodialysis in [facility] if nephrology deem it necessary. Contact information for Kidney Care Advocatenurse was provided. Patient will be scheduled for follow up with Kidney Bender Machine nurse. STEREO INSTALLER documented in this encounter Plan of Treatment Upcoming Encounters Date Type Department Care Team (Latest Contact Info) Description 08/19/2023 3:00 PM CDT Clinical Communication Virtual Review in [place], [place] 200 [place] [phone] 08/21/2023 1:30 PM CDT Comprehensive Visit Division of Pulmonary Medicine in [place], [place] [address] [place] [phone] Gallito Crabtree M.D. [address] [place] [phone] 09/08/2023 10:00 AM CDT Appointment Department of Laboratory Medicine in [place], [place] [address] [place] [address] Sera Casiano M.D., Ph.D. [address] [place] [phone] 09/08/2023 10:10 AM CDT Appointment Department of Laboratory Medicine in [place], [place] [address] [place] [address] Sera Casiano M.D., Ph.D. [address] [place] [phone] 09/28/2023 8:15 AM CDT Hospital Encounter Outpatient Surgery Unit in [place], [place] [address] [place] [phone] Sandeep Kuo M.D., Ph.D. [address] [place] [phone] 09/28/2023 8:15 AM CDT - 09/28/2023 11:06 AM CDT Surgery [facility] OR [address] [place] [address] Sandeep Kuo M.D., Ph.D. [address] [place] [phone] CREATION FISTULA BRACHIOCEPHALIC ARTERIOVENOUS Scheduled Procedures Name [...] Total Score: 4 06/06/19 23 2:04 PM CAR STEREO INSTALLER documented as of this encounter Care Teams Correctional Cook Relationship Specialty Start Date End Date Clover Delaney M.D. [address] [place] [phone] PCP - General Internal Medicine 11/23/17 documented as of this encounter
--- OUTSIDE RECORDS SUMMARY | 2023-08-16 13:59 | XMS_ITS | Encounter Summary ---
Author Name Unknown Organization [facility] Address [address] [place] [address] Care Team Providers Care Tax Accountant Name Role Phone Clover Delaney M.D. Primary Care Provider [phone] [phone] Reason for Visit * Reason Comments Med Refill Encounter Details Date Type Department Care Team (Late st Contact Info) Description 06/02/2023 Refill Department of Community Internal Medicine in [address] [place] [phone] Karlene Rodríguez, TRIXIE, C.N.P., D.N.P. [address] [place] [phone] Med Refill Social History Tobacco Use Types [...] Answer Date Recorded PHQ-2 Score 2 05/28/2023 [facility] of Occupat ional Health - Occupational Stress [...] Sex Assigned at Male 05/13/2021 10:11 AM JUKE BOX SERVICER Gender Identity Male 11/02/2017 7:22 PM CDT Sexual Orientation Straight 11/02/2017 7: 22 PM CDT documented as of this encounter Miscellaneous Notes * Telephone Encounter - Alanis Rodriguez - 06/03/2023 7:44 AM CST Lab Results Component Value Date HGBA1C 6.8 (H) 03/30/2023 BOX SERVICER documented in this encounter Plan of Treatment Upcoming Encounters Date Type Department Care Team (Latest Contact Info) Description 08/19/2023 3:00 PM CDT Clinical Communication Virtual Review in [place], [place] 200 [place] [address] 08/21/2023 1:30 PM CDT Comprehensive Visit Division of Pulmonary Medicine in [place], [place] [address] [place] [phone] Gallito Crabtree M.D. [address] [place] [phone] 09/08/2023 10:00 AM CDT Appointment Department of Laboratory Medicine in [place] [address] [place] [address] Sera Casiano M.D., Ph.D. [address] [place] [phone] 09/08/2023 10:10 AM CDT Appointment Department of Laboratory Medicine in [place] [address] [place] [address] Sera Casiano M.D., Ph.D. [address] [place] [phone] 09/28/2023 8:15 AM CDT Hospital Encounter Outpatient Surgery Unit in [place], [place] [address] [place] [phone] Sandeep Kuo M.D., Ph.D. [address] [place] [phone] 09/28/2023 8:15 AM CDT - 09/28/2023 11:06 AM CDT Surgery [facility] OR [address] [place] [address] Sandeep Kuo M.D., Ph.D. 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 [address] [place] [address] PCP - General Internal Medicine 11/23/17 documented as of this encounter
--- OUTSIDE RECORDS SUMMARY | 2023-08-16 13:59 | XMS_ITS | Encounter Summary ---
Author Name Unknown Organization [facility] Address [address] [place] [address] Care Team Providers Care Ios Software Engineer Name Role Phone Clover Delaney M.D. Primary Care Provider [phone]- [phone] Reason for Visit * Reason Comments Incomplete Bladder Emptying * Outpatient (Routine) - Closed Specialty Diagnoses / Procedures Referred By Yenny t Referred To Contact Diagnoses Hypertension And Chronic Kidney Disease Stage 5 (HCC) Proteinuria Procedures URO Uroflow Mónica Portillo APRN, C.N.P., M.S. [address] [place] [phone] [facility] Referral ID Status Reason Start Date Expiration Date Visits Re quested Visits Authorized [id number] Closed 04/07/2023 04/06/2024 1 1 Encounter Details Date Type Department Care Team (Latest Contact Info) Description 05/29/2023 1:00 PM AIRCRAFT LOG CLERK Procedure visit Department of Urology in [place], [place] [address] [place] [phone] Mónica Portillo APRN, C.N.P., M.S. [address] [place] [phone] Lauren Madden [address] [place] [phone] Incomplete Bladder Emptying (Primary Dx); Hypertension And Chronic Kidney Disease Stage 5 (HCC); Proteinuria Social History Tobacco Use Types [...] often do you attend chur ch or rastafarian services? Never 07/28/2022 Do you belong to [...] Answer Date Recorded PHQ-2 Score 2 05/28/2023 [facility] - [...] Sex Assigned at Male 05/13/2021 10:11 AM AIRCRAFT LOG CLERK Gender Identity Male 11/02/2017 7:22 PM CDT Sexual Orientation Straight 11/02/2017 7: 22 PM CDT documented as of this encounter Progress Notes * Lauren Madden - 05/29/2023 1:00 PM CST CHIEF COMPLAINT Patient here for a complex uroflow via calibrated electronic equipment and a residual urine check by ultrasound. IMPRESSION/REPORT/PLAN Mónica Portillo APRN, C.N.P., M.S. ordered the patient to have a complex uroflow with residual urine check via ultrasound. Patient hada moderate urge to void. Uroflow was completed at this time. Patient voided 208 mL's and had a ultrasound residual of 45 mL's. Patient rates pain at 0 on the 0 to 10 pain scale post procedure. RAFT LOG CLERK documented in this encounter Procedure Notes * Burke Hanna M.D. - 05/29/2023 1:00 PM CSTAssociated Order(s): URO UROFLOW Reason for visit: UROFLOW The patient is here for a complex uroflow via calibrated electronic equipment and residual urine checked by ultrasound. Indications: Incomplete bladder emptying Peak flow: 16 ml/sec Average flow: 8.6 ml/sec Voiding time: 24.3 sec Total voided volume: 208 mls Continuous (smooth) flow pattern Residual urine: 45 ml by ultrasound Impression: Normal variant uroflow. RAFT LOG CLERK documented in this encounter Plan of Treatment Upcoming Encounters Date Type Department Care Team (Latest Contact Info) Description 08/19/2023 3:00 PM CDT Clinical Communication Virtual Review in [place], [place] 200 [place] [address] 08/21/2023 1:30 PM CDT Comprehensive Visit Division of Pulmonary Medicine in [place], [place] [address] [place] [phone] Gallito Crabtree M.D. [address] [place] [phone] 09/08/2023 10:00 AM CDT Appointment Department of Laboratory Medicine in [place] [address] [place] [phone] Sera Casiano M.D., Ph.D. [address] [place] [phone] 09/08/2023 10:10 AM CDT Appointment Department of Laboratory Medicine in [place] [address] [place] [phone] Sera Casiano M.D., Ph.D. [address] [place] [phone] 09/28/2023 8:15 AM CDT Hospital Encounter Outpatient Surgery Unit in [place], [place] [address] [place] [phone] Sandeep Kou M.D., Ph.D. [address] [place] [phone] 09/28/2023 8:15 AM CDT - 09/28/2023 11:06 AM CDT Surgery [facility] [address] [place] [phone] Sandeep Kuo M.D., Ph.D. 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 - 05/29/2023 1:00 PM AIRCRAFT LOG CLERK Burke Hanna M.D. ? 05/29/2023 ??4:49 PM [...] ultrasound Impression: Normal variant uroflow. Mónica Portillo APRN C.N.P., M.S. UROL OGY ORDERABLES documented in this encounter Visit Diagnoses Diagnosis Incomplete Bladder Emptying- Primary Hypertension And Chronic Kidney Disease Stage 5 (HCC) Proteinuria Failure Renal End Stage (HCC) documented in this encounter Additional Health Concerns Assessment Noted Time PHQ-9 Depression Total Score: 4 06/06/19 23 2:04 PM AIRCRAFT LOG CLERK documented as of this encounter Care Teams Ios Software Engineer Relationship Specialty Start Date End Date Clover Delaney M.D. [address] [place] [phone] PCP - General Internal Medicine 11/23/17 documented as of this encounter
--- OUTSIDE RECORDS SUMMARY | 2023-08-16 13:59 | XMS_ITS | Encounter Summary ---
Author Name Unknown Organization [facility] Address [address] [place] [address] Care Team Providers Care Timber Robber Name Role Phone Clover Delaney M.D. Primary Care Provider [phone] Reason for Referral * Specialty Diagnoses / Procedures Referred By Yenny hunter Referred To Contact RST [facility] [address] [place] [phone] [facility] Referral ID Status Reason Start Date Expiration Date Visits Re quested Visits Authorized Scheduling Instructions Patient requested appt on 06/15 while they are here for Opth appt. Schedule with Sandeep SERVICE CONSULTANT Reason for Visit * Reason Comments Chronic Kidney Disease Encounter Details Date Type Department Care Team (Late st Contact Info) Description 05/29/2023 3:00 PM JOB SERVICE CONSULTANT Education Division of Nephrology and Hypertension in [place], [place] [address] [place] [phone] Mónica Portillo, TRIXIE, C.N.P., M.S. [address] [place] [phone] Sandeep Galicia, R.N. [address] [place] [phone] Chronic Kidney Disease Stage 5 Glomerular Filtration [...] PHQ-2 Score 2 05/28/2023 [facility] - Occupational [...] Sex Assigned at Male 05/13/2021 10:11 AM JOB SERVICE CONSULTANT Gender Identity Male 11/02/2017 7:22 PM CDT Sexual Orientation Straight 11/02/2017 7: 22 PM CDT documented as of this encounter Progress Notes * Sandeep Galicia R.N. - 05/29/2023 3:00 PM CST Patient was here today for first education visit on renal replacement therapies with Kidney Production Sound Mixer Nurse. We reviewed contents of education folder which included: 0533 Chronic Kidney Disease Treatment Options, 2877 Living Donor Kidney Transplant, 6228-01 Palliative and Supportive Care Service, 2540 Palliative Care for people with serious illness, 1181 Home Dialysis, 1181- 11 Basics of Hemodialysis, 1697 Basics of Peritoneal Dialysis. Contact information for Kidney Production Sound Mixer nurse was provided. Patient will be scheduled for follow up with Kidney Production Sound Mixer nurse. SERVICE CONSULTANT documented in this encounter Plan of Treatment Upcoming Encounters Date Type Department Care Team (Latest Contact Info) Description 08/19/2023 3:00 PM CDT Clinical Communication Virtual Review in [place], [place] 200 [place] [address] 08/21/2023 1:30 PM CDT Comprehensive Visit Division of Pulmonary Medicine in [place], [place] [address] [place] [phone] Gallito Crabtree M.D. [address] [place] [phone] 09/08/2023 10:00 AM CDT Appointment Department of Laboratory Medicine in [place], [place] [address] [place] [phone] Sera Casiano M.D., Ph.D. [address] [place] [phone] 09/08/2023 10:10 AM CDT Appointment Department of Laboratory Medicine in [place], [place] [address] [place] [phone] Sera Casiano M.D., Ph.D. [address] [place] [phone] 09/28/2023 8:15 AM CDT Hospital Encounter Outpatient Surgery Unit in [place], [place] [address] [place] [phone] Sandeep Kuo M.D., Ph.D. [address] [place] [phone] 09/28/2023 8:15 AM CDT - 09/28/2023 11:06 AM CDT Surgery [facility] [address] [place] [address] Sandeep Kuo M.D., Ph.D. 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) 09/28/2023 8:15 AM CDT Scheduled Referrals Name Type Priority Associated Diagnoses Order Schedule Nephrology - Chronic kidney disease education visit (clinic) Outpatient Referral Routine Chronic Kidney Disease Stage 5 Glomerular Filtration Rate Less Than 15 (HCC) Expected: 06/15/2023, Expires: 08/26/2024 documented as of this encounter Visit Diagnoses Diagnosis Chronic Kidney Disease Stage 5 Glomerular Filtration Rate Less Than 15 (HCC)- Primary Chronic Kidney Disease Stage 4 Glomerular Filtration Rate 15-29 (HCC) Failure Renal End Stage (HCC) documented in this encounter Additional Health Concerns Assessment Noted Time PHQ-9 Depression Total Score: 4 06/06/19 23 2:04 PM JOB SERVICE CONSULTANT documented as of this encounter Care Teams Timber Robber Relationship Specialty Start Date End Date Clover Delaney M.D. 701 [place] [phone] PCP - General Internal Medicine 11/23/17 documented as of this encounter
--- OUTSIDE RECORDS SUMMARY | 2023-08-16 13:59 | XMS_ITS | Encounter Summary ---
Author Name Unknown Organization [facility] Address [address] [place] [address] Care Team Providers Care Copra Sampler Name Role Phone Clover Delaney M.D. Primary Care Provider [phone]- [phone] Reason for Visit * Reason Onset Date Comments Clarification on Aranesp 06/04/2023 Encounter Details Date Type Department Care Team (Latest Contact Info) Description 06/04/2023 Clinical Communication Division of Nephrology and Hypertension in [place], [place] [address] [place] [phone] Sera Casiano M.D., Ph.D. [address] [place] [phone] Clarification on [facility] Social History Tobacco Use Types Packs/Day Years [...] Answer Date Recorded PHQ-2 Score 2 05/28/2023 [facility] Occupational Stress [...] Sex Assigned at Male 05/13/2021 10:11 AM NETWORK PROGRAMMER Gender Identity Male 11/02/2017 7:22 PM CDT Sexual Orientation Straight 11/02/2017 7: 22 PM CDT documented as of this encounter Miscellaneous Notes * Telephone Encounter - Kirstie Ramirez - 06/04/2023 8:18 AM CST Caller is: other: Authorization YES Preferred Communication Method: [phone] Reason for call: [facility] [place] called regarding the Aranesp order that they receivedfrom Dr. North for Mr. Patel. They need parameters on when to give the medication as well as whether Dr. North wants them to check hemoglobin every time and then give Aranesp if below 10, or just give without doing labs. ORK PROGRAMMER documented in this encounter Plan of Treatment Upcoming Encounters Date Type Department Care Team (Latest Contact Info) Description 08/19/2023 3:00 PM CDT Clinical Communication Virtual Review in [address] [phone] 08/21/2023 1:30 PM CDT Comprehensive Visit Division of Pulmonary Medicine in [address] [phone] Gallito Crabtree M.D. [address] [place] [phone] 09/08/2023 10:00 AM CDT Appointment Department of Laboratory Medicine in [place] [address] [place] [phone] Sera Casiano M.D., Ph.D. [address] [place] [phone] 09/08/2023 10:10 AM CDT Appointment Department of Laboratory Medicine in [place] [address] [place] [phone] Sera Casiano M.D., Ph.D. [address] [place] [phone] 09/28/2023 8:15 AM CDT Hospital Encounter Outpatient Surgery Unit in [place], [place] [address] [place] [address] Sandeep Kuo M.D., Ph.D. [address] [place] [address] 09/28/2023 8:15 AM CDT - 09/28/2023 11:06 AM CDT Surgery [facility] [address] [place] [address] Sandeep Kuo M.D., Ph.D. 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 [address] [place] [phone] PCP - General Internal Medicine 11/23/17 documented as of this encounter
--- OUTSIDE RECORDS SUMMARY | 2023-08-16 13:59 | XMS_ITS | Encounter Summary ---
Author Name Unknown Organization [facility] Address [address] [place] [address] Care Team Providers Care Statistician Theoretical Name Role Phone Clover Delaney M.D. Primary Care Provider [phone] [phone] Reason for Visit * Episode Based Medications (Routine) - Pending Review Specialty Diagnoses / Procedures Referred By Contac t Referred To Contact Diagnoses Malignant Neoplasm Of Transverse Colon (HCC) Anemia Of Chronic Renal Disease Procedures [place] DARBEPOETIN SHER, NON-ESRD [place] DARBEPOETIN SHER, ESRD USE Mónica Portillo APRN, C.N.P., M.S. 200 [place] [phone] [facility] Region Referral ID Status Reason Start Date Expiration Date V isits Requested Visits Authorized [id number] Pending Review 09/03/2022 04/26/2024 12 12 Encounter Details Date Type Department Care Team (Latest Contact Info) Description 06/12/2023 10:50 AM CARPENTER MATE - 06/12/2023 11:59 PM CARPENTER MATE Hospital Encounter Department of Laboratory Medicine in [address] [place] [phone] Mónica Portillo APRN, C.N.P., M.S. [address] [place] [phone] Hypertension And Chronic Kidney Disease Stage 5 [...] Date Recorded PHQ-2 Score 2 05/28/2023 [facility] [...] Sex Assigned at Male 05/13/2021 10:11 AM CARPENTER MATE Gender Identity Male 11/02/2017 7:22 PM CDT [...] by mouth as needed. miscellaneous medical supply [facility] CPAP Supplies See Instructions, CPAP machine, mask 1 ea x 4 refills, headgear 1 ea x 2 refills, tubing 1 ea x 4 refills, filters 2 ea per month, tub 1 ea x 2 refills, mask seal 1 ea x 2 refills DX G47.33, length of need 99, 1 each, 0 Refill(s) 10/20/2016 miscellaneous medical supply [facility] Head Gear for CPAP Machine See Instructions, fax to patient at [phone], 1 each 01/17/2014 MULTIVITAMIN ORAL Daily Multiple [...] PM CDT Clinical Communication Virtual Review in [place], [place] [address] [place] [address] 08/21/2023 1:30 PM CDT Comprehensive Visit Division of Pulmonary Medicine in [place], [place] [address] [place] [phone] Gallito Crabtree M.D. [address] [place] [phone] 09/08/2023 10:00 AM CDT Appointment Department of Laboratory Medicine in [place] [address] [place] [phone] Sera Casiano M.D., Ph.D. [address] [place] [phone] 09/08/2023 10:10 AM CDT Appointment Department of Laboratory Medicine in [place], [place] [address] [place] [phone] Sera Casiano M.D., Ph.D. [address] [place] [address] 09/28/2023 8:15 AM CDT Hospital Encounter Outpatient Surgery Unit in [place], [place] [address] [place] [address] Sandeep Kuo M.D., Ph.D. [address] [place] [phone] 09/28/2023 8:15 AM CDT - 09/28/2023 11:06 AM CDT Surgery [facility] [address] [place] [address] Sandeep Kuo M.D., Ph.D. 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) 09/28/2023 8:15 AM CDT documented as of this encounter Procedures Procedure Name Priority Date/Time Associated Diagnosis Comments CBC WITH DIFFERENTIAL, B Routine 06/12/2023 10:53 AM CARPENTER MATE Anemia Of Chronic Renal Disease FOLATE, S Routine 06/12/2023 10:53 AM CARPENTER MATE Hypertension And Chronic Kidney Disease Stage 5 (HCC) Proteinuria 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 Acute Metabolic Acidosis Hyperphosphatemia Hypocalcemia VITAMIN B12 ASSAY, S Routine 06/12/2023 10:53 AM CARPENTER MATE Hypertension And Chronic Kidney Disease Stage 5 (HCC) Proteinuria 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 Acute Metabolic Acidosis Hyperphosphatemia Hypocalcemia documented in this encounter Results * (ABNORMAL) CBC with Differential, Blood (06/12/2023 10:53 AM CARPENTER MATE) Hemoglobin 7.4(L) 13.2 - 16.6 g/dL 06/12/2023 7:24 PM CARPENTER MATE [facility] Hematocrit 24.1(L) 38.3 - 48.6 % 06/12/2023 7:24 PM CARPENTER MATE [facility] Erythrocytes 2.42(L) 4.35 - 5.65 x10(12)/L 06/12/2023 7:24 PM CARPENTER MATE [facility] MCV 99.6(H) 78.2 - 97.9 fL 06/12/2023 7:24 PM CARPENTER MATE [facility] RBC Distrib Width 14.7(H) 11.8 - 14.5 % 06/12/2023 7:24 PM CARPENTER MATE [facility] Platelet Count 159 135 - 317 x10(9)/L 06/12/2023 7:24 PM CARPENTER MATE [facility] Leukocytes 7.6 3.4 - 9.6 x10(9)/L 06/12/2023 7:24 PM CARPENTER MATE [facility] Neutrophils 6.33 1.56 - 6.45 x10(9)/L 06/12/2023 7:23 PM CARPENTER MATE [facility] Lymphocytes 0.55(L) 0.95 - 3.07 x10(9)/L 06/12/2023 7:24 PM CARPENTER MATE [facility] Monocytes 0.52 0.26 - 0.81 x10(9)/L 06/12/2023 7:24 PM CARPENTER MATE [facility] Eosinophils 0.16 0.03 - 0.48 x10(9)/L 06/12/2023 7:24 PM CARPENTER MATE [facility] Basophils 0.03 0.01 - 0.08 x10(9)/L 06/12/2023 7:24 PM CARPENTER MATE [facility] Blood (Blood, Venous) 06/12/2023 10:53 AM CARPENTER MATE 06/12/2023 7:04 PM CARPENTER MATE Mónica Portillo APRN C.N.P., M.S. LAB BLOOD ADD-ON [facility] [address] [place] [address], [facility] RDWG [facility] [place] [address] [place] [address] * Folate (06/12/2023 10:53 AM CARPENTER MATE) Folate, S 12.6 >=4.0 mcg/L 06/13/2023 2:09 AM CARPENTER MATE ECLR Comment: Biotin has been identified by the stack yield engineer as a potential interfering substance. Higher concentrations of biotin may be found in multivitamins, hair/nail supplements, and workout supplements. If the result does not match clinical observations, repeat testing after patient refrains from the use of supplements for at least 12 hours. Blood (Blood, Venous) 06/12/2023 10:53 AM CARPENTER MATE 06/12/2023 9:30 PM CARPENTER MATE Mónica Portillo APRN, C.N.P., M.S. LAB BLOOD ADD-ON Performing Organization Address [facility] de Phone Number [facility] [address] [place] [address], [facility] ECLR [facility] [place] [address] * (ABNORMAL) Vitamin B12 Assay (06/12/2023 10:53 AM CARPENTER MATE) Vitamin B12 Assay, S 1249(H) 232 - 1245 ng/L 06/13/2023 2:09 AM CARPENTER MATE ECLR Comment: Biotin has been identified by the stack yield engineer as a potential interfering substance. Higher concentrations of biotin may be found in multivitamins, hair/nail supplements, and workout supplements. If the result does not match clinical observations, repeat testing after patient refrains from the use of supplements for at least 12 hours. Blood (Blood, Venous) 06/12/2023 10:53 AM CARPENTER MATE 06/12/2023 9:30 PM CARPENTER MATE Mónica Portillo APRN, C.N.P., M.S. LAB BLOOD ADD-ON Performing Organization Address [facility] Co de Phone Number [facility] [address] [place] [address], [facility] ECLR [employer] [address] [address] documented in this encounter Visit Diagnoses Diagnosis Hypertension And Chronic Kidney Disease Stage 5 (HCC) Proteinuria 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 Acute Metabolic Acidosis Hyperphosphatemia Hypocalcemia Anemia Of Chronic Renal Disease Failure Renal End Stage (HCC) documented in this encounter Additional Health Concerns Assessment Noted Time PHQ-9 Depression Total Score: 4 06/06/19 23 2:04 PM CARPENTER MATE documented as of this encounter Care Teams Statistician Theoretical Relationship Specialty Start Date End Date Clover Delaney M.D. [address] [place] [phone] PCP - General Internal Medicine 11/23/17 documented as of this encounter
--- OUTSIDE RECORDS SUMMARY | 2023-08-16 13:59 | XMS_ITS | Encounter Summary ---
Author Name Unknown Organization [facility] Address [address] [place] [address] Care Team Providers Care Museum Technician Name Role Phone Clover Delaney M.D. Primary Care Provider [phone] Encounter Details Date Type Department Care Team (Latest Contact Info) Description 06/15/2023 2:30 PM MEDICAL RECORDS RECEPTIONIST Ancillary Procedure Department of Ophthalmology in [place], [place] [address] [place] [address] Justin Bunch M.D. [address] [place] [address] Diabetes Mellitus Type 2 With Proliferative Diabetic [...] any clubs o r organizations such as mu-ism groups, unions, fraternal or athletic groups, or [...] Answer Date Recorded PHQ-2 Score 2 05/28/2023 [facility] - [...] Assigned at Male 05/13/2021 10:11 AM MEDICAL RECORDS RECEPTIONIST Gender Identity Male 11/02/2017 7:22 PM CDT Sexual Orientation Straight 11/02/2017 7: 22 PM CDT documented as of this encounter Plan of Treatment Upcoming Encounters Date Type Department Care Team (Latest Contact Info) Description 08/19/2023 3:00 PM CDT Clinical Communication Virtual Review in [place], [place] [address] [place] [address] 08/21/2023 1:30 PM CDT Comprehensive Visit Division of Pulmonary Medicine in [place], [place] [address] [place] [phone] Gallito Crabtree M.D. [address] [place] [phone] 09/08/2023 10:00 AM CDT Appointment Department of Laboratory Medicine in [place] [address] [place] [phone] Sera Casiano M.D., Ph.D. [address] [place] [phone] 09/08/2023 10:10 AM CDT Appointment Department of Laboratory Medicine in [place] [address] [place] [phone] Sera Casiano M.D., Ph.D. [address] [place] [phone] 09/28/2023 8:15 AM CDT Hospital Encounter Outpatient Surgery Unit in [place], [place] [address] [place] [phone] Sandeep Kuo M.D., Ph.D. [address] [place] [phone] 09/28/2023 8:15 AM CDT - 09/28/2023 11:06 AM CDT Surgery [facility] [address] [place] [address] Sandeep Kuo M.D., Ph.D. 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 OCT device used was Spectralis . Left Eye It was a technically difficult scan. OCT device used was Spectralis . Notes FREDY/JH See interpretation in note section Justin Bunch M.D. 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 [address] [place] [phone] PCP - General Internal Medicine 11/23/17 documented as of this encounter
--- OUTSIDE RECORDS SUMMARY | 2023-08-16 13:59 | XMS_ITS | Encounter Summary ---
Author Name Unknown Organization [facility] Address [address] [place] [address] Care Team Providers Care City Surveyor Name Role Phone Clover Delaney M.D. Primary Care Provider [phone]- [phone] Reason for Referral * Outpatient (Routine) - Authorized Specialty Diagnoses / Procedures Referred By Yenny hunter Referred To Contact [facility] Internal Medicine Clover Delaney M.D. [address] [place] [address] [facility] Region Referral ID Status Reason Start Date Expiration Date V isits Requested Visits Authorized [id number] Authorized 05/29/2023 11/27/2024 1 1 Scheduling Instructions DM, Labs ~1-[address] Reason for Visit * Reason Comments Medication Reaction amolodipine * Outpatient (Routine) - Closed Specialty Diagnoses / Procedures Referred By Yenny hunter Referred To Contact [facility] Internal Medicine Diagnoses Anemia Diabetes Mellitus Type 2 With Diabetic Neuropathy Hyperglycemic (HCC) Chronic Kidney Disease (CKD), Stage 3b 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 [address] [place] [phone] [facility] Region Referral ID Status Reason Start Date Expiration Date Visits Re quested Visits Authorized [id number] Closed 09/02/2022 09/01/2025 1 1 Encounter Details Date Type Department Care Team (Latest Contact Info) Description 05/29/2023 8:[address] Office Visit Department of Community Internal Medicine in [place], [place] [address] [place] [phone] Clvoer Delaney M.D. [address] [place] [address] Hypertension And Chronic Kidney Disease Stage 5 [...] B Discharge Disposition: Home or Self Care Social [...] Sex Assigned at Male 05/13/2021 10:[address] WORK[address] Gender Identity Male 11/02/2017 7:22 PM CDT Sexual Orientation Straight 11/02/2017 7: 22 PM CDT documented as of this encounter Last Filed Vital Signs Vital Sign Reading Time Taken Comments Blood Pressure 203/83 05/29/2023 8:[address] Pulse 54 05/29/2023 8:[address] Temperature - - Respiratory Rate - - Oxygen Saturation - - Inhaled Oxygen Concentration - - Weight 156 kg (343 lb 0.6 oz) 05/29/2023 7:[address] Height 178.5 cm (5' 10.28) 05/29/2023 7:57 AM Kassandra GOMEZ Body Mass Index 48.83 05/29/2023 7:[address] WORK[address] documented in this encounter Patient Instructions * Patient Instructions* Clover Delaney M.D. - 05/29/2023 8:[address] WORK[address] Check with insurance to see if and where (ie doctor's office? Pharmacy?) Shingrix (new shingles vaccine) is covered. You just need the 2nd dose likely at the pharmacy. ROAD WORKER documented in this encounter Progress Notes * Clover Delaney M.D. - 05/29/2023 8:00 AM CST SUBJECTIVE CHIEF COMPLAINT / REASON FOR VISIT Philip Patel is a 77 y.o. male who presents for evaluation of Medication Reaction (amolodipine). HISTORY OF PRESENT ILLNESS Patient is here for follow up of chronic conditions. Has urology and nephrology appointments today. He was seen in [place] ED 05/05/23 for edema after resuming amlodipine on 04/11/23. It was thoughtto be due to amlodipine. He was taken off amlodipine and now home blood pressure have risen to 150ssystolic (on torsemide 60mg). Was on increased torsemide since 05/05 (60mg daily) with improvement inedema gradually which continues to improve. He was getting lightheaded and feels weak when he is up. He notes that feeling has improved since cutting back torsemide to 30mg daily earlier this week atmy advice. He continues to have increased urine output. No gross hematuria. Appetite is down. Activity is verylimited. He spends a lot of time in his bed or recliner but is still working a little. Feels quite deconditioned. Patient is here to follow up chronic conditions. Hyperlipidemia The patient has hyperlipidemia of moderate severity and long standing duration. Patient has attempted cholesterol lowering measures in the diet and is compliant. LDL goal is under 70. Patient denies myalgias. Diabetes The patient has diabetes mellitus of moderate severity and long standing duration with no acute modifying factors. does follow diet as prescribed, does perform home glucose monitoring using Brionna. Patient reports blood sugars have been ranging 90s fasting, up to 130, lowest is 70s. Had 4 consecutive Brionna sensorsthat did not work. Present therapy includes Lantus 16 units. No polyuria, polydipsia, blurry vision, chest pain, dyspnea, dysesthesia or claudication. Last Hemoglobin A1c was 6.8. The following portions of the patient's history were reviewed and updated as appropriate: allergies, current medications, family history, medical history, social history, surgical history, and problem list. Social History Tobacco Use Smoking status: Former Packs/day: 0.00 Years: 19.00 Additional pack years: 0.00 Total pack years: 0.00 Types: Cigarettes Start date: 1961 [...] 5/32 needle USE TO INJECT ONCE DAILY carvediloL (COREG) 12.5 mg tablet TAKE ONE TABLET BY MOUTH TWICE A DAY WITH MEALS cholecalciferol (VITAMIN D3) 50 mcg (2,000 Unit) tablet Take 50 mcg by mouth daily. cyanocobalamin (VITAMIN B12) 1,000 mcg tablet Take 1,000 mcg by mouth daily. DME CPAP DME Order doxazosin (CARDURA) 2 mg tablet Take 1 tablet (2 mg total) by mouth daily. flash glucose scanning reader (FREESTYLE BRIONNA) misc 1 each (1 Device total) every 14 (fourteen) days. flash glucose sensor (FreeStyle Brionna 2 Sensor) kit Inject 1 each (1 kit total) under the skin every 14 (fourteen) days. glipiZIDE (GLUCOTROL XL) 10 mg 24 hr tablet Take 2 tablets (20 mg total) by mouth daily. insulin glargine (Lantus Solostar U-100 Insulin) 100 unit/mL (3 mL) injection Inject 16 Units underthe skin at bedtime. irbesartan (AVAPRO) 75 mg tablet Take 1 tablet (75 mg total) by mouth daily. iron,carbonyl-vitamin C (VITRON-C) 65 mg iron- [address] tablet Take 65 mg of iron by mouth daily. Do not crush or chew. loperamide (IMODIUM A-D) 2 mg tablet Take 2 mg by mouth as needed. [facility] CPAP Supplies See Instructions, CPAP machine, mask 1 ea x 4 refills, headgear 1 ea x 2 refills, tubing 1 ea x 4 refills, filters 2 ea per month, tub 1 ea x 2 refills, mask seal 1 ea x 2 refills DX G47.33, length of need 99, 1 each, 0 Refill(s) [facility] Head Gear for CPAP Machine See Instructions, fax to patient at [phone], 1 each MULTIVITAMIN ORAL Daily Multiple Vitamins See Instructions, Take 1 tablet by mouth daily. multivitamin-eye (PRESERVISION LUTEIN) 226 mg-90 mg-5 mg-0.8 mg capsule Take 2 capsules by mouth daily. ONETOUCH DELICA LANCETS 33 gauge [facility] OneTouch Ultra Test strips Use to test once daily prednisoLONE acetate (PRED FORTE) 1 % ophthalmic suspension Instill 1 drop in left eye once daily prednisoLONE acetate (PRED FORTE) 1 % ophthalmic suspension place 1 drop into the left eye once daily. prednisoLONE acetate (PRED FORTE) 1 % ophthalmic suspension place 1 drop into the left eye once daily. predniSONE (DELTASONE) 5 mg tablet TAKE ONE TABLET BY MOUTH ONE TIME DAILY sevelamer carbonate (RENVELA) 800 mg tablet Take 1 tablet (800 mg total) by mouth 3 (three) times aday with meals. sodium bicarbonate 650 mg tablet Take 1 tablet (650 mg total) by mouth 2 (two) times a day. torsemide (DEMADEX) 10 mg tablet Take 3 tablets (30 mg total) by mouth daily. UltiCare Pen Needle 31 gauge x 1/4 needle Use to inject insulin daily amLODIPine (NORVASC) 10 mg tablet Take 1 tablet (10 mg total) by mouth daily. polyethylene glycol-electrolytes (GoLYTELY) 236-22.74-6.74 -5.86 gram solution Drink 1st portion ofprep at 6 PM the evening before. 2nd portion must be started 3 hours before and finished 2 hours prior to report time OBJECTIVE PHYSICAL EXAMINATION BP (!) 207/70 (BP Location: Left arm, Patient Position: Sitting, Cuff Size: Large) Pulse (!) 51 Ht 178.5 cm Wt (!) 156 kg BMI 48.83 kg/m?? Body mass index is 48.83 kg/m??. BP (!) 203/83 (BP Location: Left arm, Patient Position: Sitting, Cuff Size: Large) General: Alert and in no acute distress HEENT: Pupils are equal, round, and reactive, lids and conjunctivae clear without hemorrhages or exudates Auditory canals are normal without erythema or edema, TMs are pearly coyle and intact without erythema Oral cavity with moist mucosa, no lesions, posterior pharynx is normal without erythema or drainagepresent Neck: Supple without lymphadenopathy Respiratory: Effort is easy, lung sounds are clear to auscultation with no wheezes or crackles Cardiovascular: S1 & S2 are present, normal rate and rhythm, no murmur, + bilateral leg edema Musculoskeletal: Grossly intact, no deformities are noted. Uses cane. Skin: Mild pallor, normal temperature and moisture, no rashes or lesions are noted Psych: Behavior, mood, affect, cognition and insight are all appropriate DIAGNOSTICS Results for orders placed or performed during the hospital encounter of 05/28/23 Urinalysis with Microscopic: Urine, Midstream Result Value Ref Range Source Urine, Urine, Midstream Clarity Clear Clear Color Yellow Blood Trace (A) Negative Nitrite Negative Negative Leukocyte Esterase Negative Negative Protein >=300 (A) mg/dL Glucose Negative Negative mg/dL Ketone Negative Negative mg/dL Bilirubin Negative Negative pH 6.5 5.0 - 8.0 Specific [place] 1.012 1.001 - 1.035 Urobilinogen 0.2 0.2 - 1.0 mg/dL White Blood Cells None Seen /hpf Red Blood Cells 3-10 (A) 0 - 2 /hpf Dysmorphic Red Blood Cells <=25 <=25 % Hyaline Casts 1-3 /lpf Lab Results Component Value Date HGBA1C 6.8 (H) 03/30/2023 Lab Results Component Value Date NA 140 05/28/2023 KSERUM 4.7 03/31/2022 KPLASMA 4.4 05/28/2023 CL 101 05/28/2023 BICARB 25 05/28/2023 CREATININE 4.24 (H) 05/28/2023 EGFRBLKAA 24 (L) 11/07/2021 EGFRNONBLKAA 21 (L) 11/07/2021 EGFR <15 (L) 05/28/2023 BUN 66 (H) 05/28/2023 ANIONGAP 14 05/28/2023 GLUCOSE 68 (L) 05/28/2023 GLUCOSEPOC 134 04/07/2023 CALCIUM 8.5 (L) 05/28/2023 ASSESSMENT / PLAN #1 Hypertension And Chronic Kidney Disease Stage 5 (HCC) Blood pressure is not controlled. He will see nephrology and urology today. Will note he continues to mobilize fluid on torsemide 30mg with less lightheadedness than 60mg dose. I don't recommend any dose or med changes today but will defer to specialist recommendations to get his blood pressure to goal. 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 Low Calcium. 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 Appreciate nephrology specialty input. #4 Morbid Obesity Body Mass Index 45.0-49.9 Adult (HCC) Worsened, though down since ED visit. 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 Discussed that he may wean glargine if FBG<100 3 days in a row or more. He will continue working with Brionna CGM and once daily fingerstickglucose testing. Mobility is limited due to vision changes causing limited depth perception. As a result he has beenreliant on cane. [employer] parking application completed for permanent permit. 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 #7 Cancer Colon Transverse Personal History Resolved per oncologists >5 years after surgery. Unable to resolve diagnosis since it is linked to Aranesp infusion order set. Overview: 03/2018 No evidence of metastatic disease, stable colon, diverticulosis on CT 04/09/2020 ([facility], [facility]) Repeat colonoscopy fall [address] Sewell (oncology, [place]), follow up Dr. Sewell 6-12 months with CEA and labs Future colonoscopies: clear liquid diet (no red liquids) 2-3 days prior to beginning colonoscopy preparation. An alternate large-volume preparation should be used, given the inadequacy the of the initial preparation 03/2022. - Given poor prep, recommend repeat colonoscopy within 1 year - 1.1cm tubular adenoma with low grade dysplasia: repeat 3 years per current guidelines which is age>80 and may be discontinued. #8 Maintenance Health Adult After discussion of benefits, risks, side effects, and alternatives to the recommended immunizations, the patient/parent gave verbal permission for the following immunizations, which were given today: Hep B #2 Recommend Shingrix #2 at the pharmacy (after checking with insurance coverage) #9 Anemia Anemia of chronic renal disease and iron deficiency. Has been getting darbepoetin at [place] but is interested in getting them at [place] but needs a form for this to be continued in that setting. This form should be completed by nephrology who prescribes this infusion therapy. #10 Diabetes Mellitus Type 2 With Diabetic Neuropathy (HCC) As above. Will do foot exam at summer visit. #11 Need Vaccine Immunization Hepatitis B - HepB: hepatitis B adult (Heplisav-B) vaccine (age 18 years and older) Other orders - [facility] office visit (clinic) - [facility] office visit (clinic); Future; Expected date: 11/27/2023 (After tests) Medications, proper use, and common and severe side effects were reviewed with the patient/caregiver. If new or concerning symptoms develop, patient/caregiver understands to seek medical attention. Patient/caregiver verbalizes understanding and acceptance of this plan of care and denies any further needs at this time. Return to clinic 6 months, or sooner as needed. I spent 45 minutes on the date of this visit in record review, coordination of care and face to face or virtual patient care regarding the above chronic conditions. Clover Delaney M.D. ROAD WORKER documented in this encounter Plan of Treatment Upcoming Encounters Date Type Department Care Team (Latest Contact Info) Description 08/19/2023 3:00 PM CDT Clinical Communication Virtual Review in [place], [place] [address] [place] [phone] 08/21/2023 1:30 PM CDT Comprehensive Visit Division of Pulmonary Medicine in [address] [phone] Gallito Crabtree M.D. [address] [place] [phone] 09/08/2023 10:00 AM CDT Appointment Department of Laboratory Medicine in [place], [place] [address] [place] [phone] Sera Casiano M.D., Ph.D. [address] [place] [phone] 09/08/2023 10:10 AM CDT Appointment Department of Laboratory Medicine in [place], [place] [address] [place] [phone] Sera Casiano M.D., Ph.D. [address] [place] [phone] 09/28/2023 8:15 AM CDT Hospital Encounter Outpatient Surgery Unit in [place], [place] [address] [place] [phone] Sandeep Kuo M.D., Ph.D. [address] [place] [phone] 09/28/2023 8:15 AM CDT - 09/28/2023 11:06 AM CDT Surgery [facility] [address] [place] [address] Sandeep Kuo M.D., Ph.D. 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) Expected: 11/27/2023 (Approximate), Expires: 05/29/2024 Scheduled Procedures Name Priority Associated Diagnoses Date/Ti me CREATION 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) 09/28/2023 8:15 AM CDT Scheduled Referrals Name Type Priority Associated Diagnoses Orde r Schedule [facility] office visit (clinic) Outpatient Referral Routine Expected: 11/27/2023 (Approximate), Expires: 08/26/2024 documented as of this encounter Visit Diagnoses Diagnosis Hypertension And Chronic Kidney Disease Stage 5 (HCC)- Primary Hyperparathyroidism (HCC) 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) Morbid Obesity Body Mass Index 45.0-49.9 Adult (HCC) 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 NPKatlin: [phone] [address] [place] [address] PCP - General Internal Medicine 11/23/17 documented as of this encounter
--- OUTSIDE RECORDS SUMMARY | 2023-08-16 13:59 | XMS_ITS | Encounter Summary ---
Author Name Unknown Organization [facility] Address [address] [place] [id number] Care Team Providers Care Segmental Paving Supervisor Name Role Phone Clover Delaney M.D. Primary Care Provider [phone]- [phone] Encounter Details Date Type Department Care Team (Late st Contact Info) Description 06/04/2023 Orders Only Division of Gastroenterology in [place], [place] [address] [place] [phone] Evelio Graham M.D. [address] [place] [phone] Genetic Susceptibility To Disease Social History Tobacco Use Types Packs/Day [...] Answer Date Recorded PHQ-2 Score 2 05/28/2023 [facility] [place] of Occupat ional Health - Occupational Stress [...] Sex Assigned at Male 05/13/2021 10:11 AM ADMINISTRATIVE SERVICES COORDINATOR Gender Identity Male 11/02/2017 7:22 PM CDT Sexual Orientation Straight 11/02/2017 7: 22 PM CDT documented as of this encounter Plan of Treatment Upcoming Encounters Date Type Department Care Team (Latest Contact Info) Description 08/19/2023 3:00 PM CDT Clinical Communication Virtual Review in [place], [place] 200 [place] [phone] 08/21/2023 1:30 PM CDT Comprehensive Visit Division of Pulmonary Medicine in [place], [place] [address] [place] [phone] Gallito Crabtree M.D. [address] [place] [phone] 09/08/2023 10:00 AM CDT Appointment Department of Laboratory Medicine in [place] [address] [place] [address] Sera Casiano M.D., Ph.D. [address] [place] [phone] 09/08/2023 10:10 AM CDT Appointment Department of Laboratory Medicine in [place] [address] [place] [phone] Sera Casiano M.D., Ph.D. [address] [place] [phone] 09/28/2023 8:15 AM CDT Hospital Encounter Outpatient Surgery Unit in [place], [place] [address] [place] [phone] Sandeep Kuo M.D., Ph.D. [address] [place] [phone] 09/28/2023 8:15 AM CDT - 09/28/2023 11:06 AM CDT Surgery [facility] [address] [place] [phone] Sandeep Kuo M.D., Ph.D. 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) 09/28/2023 8:15 AM CDT documented as of this encounter Procedures Procedure Name Priority Date/Time Associated Diagnosis Comments EXT TAPESTRY Routine 05/21/2021 12:00 AM ADMINISTRATIVE SERVICES COORDINATOR Genetic Susceptibility To Disease documented in this encounter Results * EXT Tapestry (05/21/2021 12:00 AM ADMINISTRATIVE SERVICES COORDINATOR) Gene Studied BRCA1,BRCA2,MLH1,MSH 2, MSH6,PMS2,EPCAM,APOB,L DLR,LDLRAP1,PCSK9 08/22/2021 12:00 AM CDT [facility] Genetic Disease Assessed Evaluation of 11 genes associated with Hereditary Breast and Ovarian Cancer, Dykes Syndrome and Familial Hypercholesterolemia. 08/22/2021 12:00 AM CDT [facility] Genetic Analysis Overall Interpretation Negative results through Tapestry do not replace diagnostic testing for patients with a personal or family history of cancer/hypercholestero lemia due to limitations with methodology. Consider a referral to a genetic counselor for diagnostic testing if warranted. 08/22/2021 12:00 AM CDT [facility] Genetic Analysis Report See Tapestry PDF Report No actionable gene changes were detected in the genes that cause Familial Hypercholesterolemia. The genes tested for this condition were APOB, LDLR, LDLRAP1, and PCSK9.No actionable gene changes were detected in the genes that cause Hereditary Breast and Ovarian Cancer. The genes tested for this condition were BRCA1 and BRCA2.No actionable gene changes were detected in the genes that cause Dykes Syndrome. The genes tested for this condition were MLH1, MSH2, MSH6, PMS2 and EPCAM. DNA extracted from your saliva sample was captured and enriched using a custom set of reagents (Thefuture.fm+ chemistry). Targeted regions were sequenced using an Illumina DNA sequencing system. Your sequence was matched to a modified version of the industry standard reference genome (GRCh38). Variant calling was completed using a customized version of [employer]'s [employer] software, requiring 20x coverage for validated variant calls. Copy Number Variants (CNVs) were called using a proprietary bioinformatics pipeline that compared the coverage profile of your sample with the coverage profiles of other reference set samples. [facility] Tagboard then analyzed the generated variant data for the exons and 10 bp of flanking intronic sequence (and select tagged intronic variants) of the 11 genes included in [place] from the atokore Database. Your sample was reviewed for single nucleotide variants (SNVs), indels up to 20 bp in length, and CNVs that are known or predicted to be actionable. NOTE: This assay has limited sensitivity to CNVs smaller than a few exons. APOB, PCSK9, and LDLR interpretation and reporting is specific to the Familial Hypercholesterolemia phenotype. Variants associated with other phenotypes such as Hypobetalipoproteinemi a are not included. Some known complex variants like the inversion of exons 1-7 in the MSH2 gene (Rolando inversion), exons 11-15 of the PMS2 gene, or variants within or immediately adjacent to long homopolymer runs are not analyzed or reported. There are regions that are not covered, such as deep intronic, promoter, and enhancer regions. This assay cannot detect all variants known to increase disease risk. Other clinical diagnostic testing for these conditions could identify variants not detected by this test. If you have had previous testing, these results should be taken into consideration during risk assessments and medical management. 08/22/2021 12:00 AM T [facility] Human Reference Sequence Assembly [id number] 08/22/2021 12:00 AM [facility] Saliva (Mouth) 05/21/2021 Evelio Graham M.D. LAB GENETI C TESTING [facility] [address] [facility], [address] [place] [address], [facility] [address] [facility], [address]. 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 [address] [place] [phone] PCP - General Internal Medicine 11/23/17 documented as of this encounter
--- OUTSIDE RECORDS SUMMARY | 2023-08-16 13:59 | XMS_ITS | Encounter Summary ---
Author Name Unknown Organization [facility] Address [address] [place] [address] Care Team Providers Care Curriculum Developer Name Role Phone Clover Delaney M.D. Primary Care Provider [phone]- [phone] Reason for Visit * Reason Comments Eye Exam * Outpatient (Routine) - Closed Specialty Diagnoses / Procedures Referred By Yenny hunter Referred To Contact Ophthalmology Justin Bunch M.D. [address] [place] [address] [facility] Referral ID Status Reason Start Date Expiration Date Visits Re quested Visits Authorized [id number] Closed 03/06/2023 03/05/2026 1 1 Encounter Details Date Type Department Care Team (Latest Contact Info) Description 06/15/2023 2:45 PM RAILWAY TRACK WORKER Office Visit Department of Ophthalmology in [place], [place] [address] [place] [phone] Justin Bunch M.D. 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 - 06/15/2023 2:45 PM CST Philip Patel was seen today for PDR/DME # Posterior vitreous detachment, RIGHT eye # [...] Granulomatosis with polyangiitis Selected imaging: OCT Macula 05/2023 Right: increased DME Left: tabletop fibrotic bands; IRF with loss of foveal contour; choroidal folds Impression 06/15/2023: Mr Patel feels that his vision is stable. He was last seen 02/2023. He did not have fluorescein angiography again today due to his concern for destabilizing CKD. His renal function is failing and arrangements are being made to start hemodialysis. Increased DME may improve with dialysis. Will observe closely Plan FU 12-14 weeks with OCT macula WAY TRACK WORKER documented in this encounter Plan of Treatment Upcoming Encounters Date Type Department Care Team (Latest Contact Info) Description 08/19/2023 3:00 PM CDT Clinical Communication Virtual Review in [place], [place] [address] [place] [address] 08/21/2023 1:30 PM CDT Comprehensive Visit Division of Pulmonary Medicine in [place], [place] [address] [place] [phone] Gallito Crabtree M.D. [address] [place] [phone] 09/08/2023 10:00 AM CDT Appointment Department of Laboratory Medicine in [place] [address] [place] [phone] Sera Casiano M.D., Ph.D. [address] [place] [phone] 09/08/2023 10:10 AM CDT Appointment Department of Laboratory Medicine in [place] [address] [place] [phone] Sera Casiano M.D., Ph.D. [address] [place] [phone] 09/28/2023 8:15 AM CDT Hospital Encounter Outpatient Surgery Unit in [place], [place] [address] [place] [phone] Sandeep Kuo M.D., Ph.D. [address] [place] [phone] 09/28/2023 8:15 AM CDT - 09/28/2023 11:06 AM CDT Surgery [facility] [address] [place] [address] Sandeep Kuo M.D., Ph.D. 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 [address] [place] [phone] PCP - General Internal Medicine 11/23/17 documented as of this encounter
--- OUTSIDE RECORDS SUMMARY | 2023-08-16 13:59 | XMS_ITS | Encounter Summary ---
Author Name Unknown Organization [facility] Address [address] [place] [address] Care Team Providers Care Milking Worker Name Role Phone Clover Delaney M.D. 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 [address] [place] [phone] [facility] Referral ID Status Reason Start Date Expiration Date Visits Re quested Visits Authorized [id number] Closed 06/01/2023 05/31/2024 1 1 ER SERVICE WAITER * Outpatient (Routine) - Closed Specialty Diagnoses / Procedures Referred By Contac t Referred To Contact Endocrinology Diagnoses Hypertension And Chronic Kidney Disease Stage 5 (HCC) Proteinuria Sera Casiano M.D., Ph.D. [address] [place] [phone] [facility] Referral ID Status Reason Start Date Expiration Date Visits Re quested Visits Authorized [id number] Closed 05/29/2023 11/27/2024 1 1 ER SERVICE WAITER Reason for Visit * Outpatient (Routine) - Closed Specialty Diagnoses / Procedures Referred By Yenny hunter Referred To Contact Nephrology and Hypertension Diagnoses Hypertension And Chronic Kidney Disease Stage 5 (HCC) Proteinuria Mónica Portillo APRN, C.N.P., M.S. [address] [place] [address] [facility] Referral ID Status Reason Start Date Expiration Date V isits Requested Visits Authorized [id number] Closed Specialty Services Required 04/07/2023 04/06/2024 1 1 Encounter Details Date Type Department Care Team (Latest Contact Info) Description 05/29/2023 4:00 PM SILVER SERVICE WAITER Comprehensive Visit Division of Nephrology and Hypertension in [place], [place] [address] [place] [phone] Sera Casiano M.D., Ph.D. 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) Social [...] Answer Date Recorded PHQ-2 Score 2 05/28/2023 [facility] of Occupat ional [facility] - Occupational Stress Questionnaire Answer Date [...] Sex Assigned at Male 05/13/2021 10:11 AM SILVER SERVICE WAITER Gender Identity Male 11/02/2017 7:22 PM CDT Sexual Orientation Straight 11/02/2017 7: 22 PM CDT documented as of this encounter Last Filed Vital Signs Vital Sign Reading Time Taken Comments Blood Pressure 225/83 05/29/2023 3:56 PM SILVER SERVICE WAITER Pulse 69 05/29/2023 3:56 PM SILVER SERVICE WAITER Temperature - - Respiratory Rate - - Oxygen Saturation - - Inhaled Oxygen Concentration - - Weight - - Height - - Body Mass Index - - documented in this encounter Progress Notes * Sera Casiano M.D., Ph.D. - 05/29/2023 4:00 PM CST PROGRESS NOTE SUBJECTIVE CHIEF COMPLAINT / REASON FOR VISIT CKD 4-5 in the setting of type 2 diabetes, hypertension, remote history of ANCA vasculitis HISTORY OF PRESENT ILLNESS Philip Patel is a 77 y.o. male who is seen for follow-up. Previously monitored by TRIXIE Portillo in CKD clinic. 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 He has been of cancer more than 5 yearsafter surgical intervention. His monitored by Dr. Sewell in [facility]. She has type 2 diabetes complicated with proliferative diabetic retinopathy. His diabetes has been better control. Currently on glipizide and insulin. He has a BMI of 48.8, and he has been wondering about initiation of a GLP1 agonist. He has obstructive sleep apnea and he is compliant with his CPAP. He has presented a relatively rapid decline on his kidney function over the past few months. He hasnot presented gross hematuria, no foamy urine. No changes in his urinary habits. He checks his blood pressure on a daily basis. His blood pressure yesterday was 150/70. Today in clinic he presents systolic blood pressure above 200. He is asymptomatic. He feels that his elevated blood pressures associated with white coat hypertension, as he usually gets elevated blood pressure in doctor's clinic visits. No chest pain, shortness of breath, no headaches, no blurred vision. Patient has not noticed any lightheadedness, dizziness, vision changes, diaphoresis, chest pain, difficulty breathing, or edema. Patient has not noticed any changes in urinary habits. No hesitancy tourinate, no difficulty to urinate. OBJECTIVE BP (!) 225/83 Pulse 69 PHYSICAL EXAMINATION Constitutional Appearance: Normal appearance. HENT Head: Normocephalic and atraumatic. Cardiovascular Rate and Rhythm: Normal rate and regular rhythm. Musculoskeletal General: Normal range of motion. Neurological General: No focal deficit present. Mental Status: He is alert. Mental status is at baseline. Psychiatric Mood and Affect: Mood normal. Thought Content: Thought content normal. DIAGNOSTICS I have reviewed available labs in detail with patient. ASSESSMENT / PLAN #1 Hypertension And Chronic Kidney Disease Stage 5 (HCC) #2 Proteinuria #3 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 I have met with Mr. Patel and his for the first time today. He they have previously met withpatient advocate. They are aware of his current kidney function. Patient is agreeable up on starting dialysis when needed. Patient is interested in home therapies. He is interested on peritoneal dialysis however he acknowledged that this may be challenging with his current weight and therefore his plans to lose weight prior to proceeding with any future plans of peritoneal dialysis are important.I have also mentioned to him that candidates for PD need to be evaluated by surgery, especially those that have prior history of abdominal surgeries such as his prior history of colon cancer surgical intervention. I anticipate that he will likely be started on in center hemodialysis, and posteriorly he can consider home therapies. I have explained to patient that unfortunately due to his kidney function his not a candidate for SGLT2 inhibitors, however he is interested on GLP 1 agonists. I have referred him to our colleagues in Endocrinology for further assistance, I appreciate their input. He will also follow-up with his PCP regarding initiation of Trulicity. There was a concern of possible ANCA flare causing a progression of his rapid decline in kidney function. ANCA titers were negative. This progression is likely associated with his longstanding type 2diabetes, especially after clinical presentation of diabetic retinopathy. I consider that at this current point a kidney biopsy will not be helpful as likely it will not exchange floor manager. He wonders if he should continue on chronic use of prednisone 5 mg daily. I will reach out to our colleagues in Pulmonary for their input. I have requested patient to bring his blood pressure home device to his next visit to check for accuracy. I have added amlodipine 5 mg daily to his current regimen. His currently at asymptomatic, however it is concerning that his systolic blood pressure in clinic today is above 200. We have reviewed concerning signs and symptoms for him to be evaluated in the emergency department if needed. Patient will continue to monitor his blood pressure at home and he will bring his blood pressure readingsto his next visit for antihypertensive medication adjustments. He was on 60 mg of torsemide for 2 we eks and he has now decreased to 30 mg daily. He will continue to monitor his weight on this currenttherapy as he may require a higher dose of torsemide in the near future. He has been receiving Aranesp once a month and he is requesting this therapy to be given at [facility]. I have faxed order for Aranesp to [facility] to be given 100 mcg per month. There is no acute indication of initiation of dialysis during this visit. We will continue to closely monitor. He requires close monitoring that we are planning to do at [facility]. Jessica Hyman M.D., Ph.D. ER SERVICE WAITER documented in this encounter Plan of Treatment Upcoming Encounters Date Type Department Care Team (Latest Contact Info) Description 08/19/2023 3:00 PM CDT Clinical Communication Virtual Review in [address] [phone] 08/21/2023 1:30 PM CDT Comprehensive Visit Division of Pulmonary Medicine in [address] [phone] Gallito Crabtree M.D. [address] [place] [phone] 09/08/2023 10:00 AM CDT Appointment Department of Laboratory Medicine in [place] [address] [place] [phone] Sera Casiano M.D., Ph.D. [address] [place] [phone] 09/08/2023 10:10 AM CDT Appointment Department of Laboratory Medicine in [place] [address] [place] [phone] Sera Casiano M.D., Ph.D. [address] [place] [phone] 09/28/2023 8:15 AM CDT Hospital Encounter Outpatient Surgery Unit in [address] [phone] Sandeep Kuo M.D., Ph.D. [address] [place] [address] 09/28/2023 8:15 AM CDT - 09/28/2023 11:06 AM CDT Surgery [facility] [address] [place] [address] Sandeep Kuo M.D., Ph.D. [address] [place] [address] CREATION FISTULA BRACHIOCEPHALIC ARTERIOVENOUS Scheduled Procedures Name Priority Associated Diagnoses Date/Ti me CREATION 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) 09/28/2023 8:15 AM CDT Scheduled Referrals Name Type Priority Associated Diagnoses Order Schedule Endocrinology - Diabetes consult (clinic) Outpatient Referral Routine Hypertension And Chronic Kidney Disease Stage 5 (HCC) Proteinuria Expected: 05/29/2023 (Approximate), Expires: 08/26/2024 documented as of this encounter Results * (ABNORMAL) Ferritin (07/06/2023 9:22 AM CDT) Ferritin, S 457(H) 31 - 409 mcg/L 07/06/2023 12:57 PM CDT [facility] Comment: Biotin has been identified by the materials specialist as a potential interfering substance. Higher concentrations of biotin may be found in multivitamins, hair/nail supplements, and workout supplements. If the result does not match clinical observations, repeat testing after patient refrains from the use of supplements for at least 12 hours. Blood (Blood, Venous) 07/06/2023 9:22 AM CDT 07/06/2023 11:51 AM CDT Sera Hyman M.D., Ph.D. LAB BL OOD ADD-ON [facility] [address] [place] [address], [facility] [place] [address] [place] [address] * (ABNORMAL) Iron and Total Iron-Binding Capacity [...] Hyman M.D., Ph.D. LAB BL OOD ADD-ON [facility] [address] [facility] [place] [address], [facility] [place] [address] [place] [address] * (ABNORMAL) CBC with Differential, Blood (07/06/2023 [...] Hyman M.D., Ph.D. LAB BL OOD ADD-ON [facility] [address] [place] [address], [place] [address], [facility] [place] [address] [place] [address], [place] [address] * (ABNORMAL) Uric Acid (07/06/2023 9:22 AM CDT) Uric Acid, P 10.4(H) 3.7 - 8.0 mg/dL 07/06/2023 12:35 PM CDT [facility] Blood (Blood, Venous) 07/06/2023 9:22 AM CDT 07/06/2023 11:51 AM CDT Sera Hyman M.D., Ph.D. LAB BL OOD ADD-ON [facility] [address] [place], [place] [address] in [address] [phone] * (ABNORMAL) Albumin, Random, Urine (07/06/2023 9:22 AM CDT) Microalbumin 2309.6 mg/L 07/06/2023 1:30 PM CDT [facility] Creatinine 69 mg/dL 07/06/2023 12:51 PM CDT [facility] Albumin/Creatinin e Ratio 3347(H) <17 mg/g 07/06/2023 1:30 PM CDT [facility] Urine (Urine, Voided) 07/06/2023 9:22 AM CDT 07/06/2023 11:59 AM CDT Sera Hyman M.D., Ph.D. LAB UR INE ORDERABLES Performing Organization Address City/[facility] [[email or web address]] Co de Phone Number [facility] [address] [place] [address] in [address] [phone] * (ABNORMAL) Protein/Creatinine Ratio, Random, Urine (07/06/2023 [...] LAB UR INE ORDERABLES Performing Organization Address City/[facility]/ZIP Co de Phone Number [facility] [address] [place] [address], [facility] [place] [address] [place] [address] * (ABNORMAL) Urinalysis, with Microscopic: Urine, Midstream [...] 8.0 07/06/2023 12:06 PM CDT [facility] Specific [place] 1.013 1.001 - 1.035 07/06/2023 12:06 PM [...] LAB UR INE ORDERABLES Performing Organization Address City/[facility]/ZIP Co de Phone Number [facility] [address] [place] [address], [facility] [place] [address] [place] [address] * (ABNORMAL) Cystatin C with Estimated GFR [...] Hyman M.D., Ph.D. LAB BL OOD ADD-ON [facility] [address] [place] [address], [place] [facility] [address] [place] [address] * (ABNORMAL) Renal Function Panel (07/06/2023 9:22 [...] Hyman M.D., Ph.D. 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 [address] [place] [phone] PCP - General Internal Medicine 11/23/17 documented as of this encounter
--- OUTSIDE RECORDS SUMMARY | 2023-08-16 13:59 | XMS_ITS | Encounter Summary ---
Author Name Unknown Organization [facility] Address [address] [place] [address] Care Team Providers Care Asthma Educator Name Role Phone Clover Delaney M.D. Primary Care Provider [phone]- [phone] Encounter Details Date Type Department Care Team (Late st Contact Info) Description 06/05/2023 Orders Only Department of Community Internal Medicine in [place], [place] [address] [place] [address] [place] [phone] Clover Delaney M.D. [address] [place] [address] Social History Tobacco Use Types [...] Answer Date Recorded PHQ-2 Score 2 05/28/2023 [facility] [place] of Occupat ional Health - Occupational Stress [...] Sex Assigned at Male 05/13/2021 10:11 AM REJOGGER Gender Identity Male 11/02/2017 7:22 PM CDT Sexual Orientation Straight 11/02/2017 7: 22 PM CDT documented as of this encounter Plan of Treatment Upcoming Encounters Date Type Department Care Team (Latest Contact Info) Description 08/19/2023 3:00 PM CDT Clinical Communication Virtual Review in [place], [place] 200 [place] [address] 08/21/2023 1:30 PM CDT Comprehensive Visit Division of Pulmonary Medicine in [place], [place] [address] [place] [phone] Gallito Crabtree M.D. [address] [place] [phone] 09/08/2023 10:00 AM CDT Appointment Department of Laboratory Medicine in [place] [address] [place] [address] Sera Casiano M.D., Ph.D. [address] [place] [phone] 09/08/2023 10:10 AM CDT Appointment Department of Laboratory Medicine in [place] [address] [place] [phone] Sera Casiano M.D., Ph.D. [address] [place] [phone] 09/28/2023 8:15 AM CDT Hospital Encounter Outpatient Surgery Unit in [place], [place] [address] [place] [phone] Sandeep Kuo M.D., Ph.D. [address] [place] [phone] 09/28/2023 8:15 AM CDT - 09/28/2023 11:06 AM CDT Surgery [facility] [address] [place] [address] Sandeep Kuo M.D., Ph.D. [address] [place] [phone] CREATION FISTULA BRACHIOCEPHALIC ARTERIOVENOUS Scheduled Procedures Name Priority Associated Diagnoses Date/Ti me CREATION 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) 09/28/2023 8:15 AM CDT documented as of this encounter Visit Diagnoses Not on filedocumented in this encounter Additional Health Concerns Assessment Noted Time PHQ-9 Depression Total Score: 4 06/06/19 23 2:04 PM REJOGGER documented as of this encounter Care Teams Asthma Educator Relationship Specialty Start Date End Date Clover Delaney M.D. [address] [place] [phone] PCP - General Internal Medicine 11/23/17 documented as of this encounter
--- OUTSIDE RECORDS SUMMARY | 2023-08-16 13:59 | XMS_ITS | Encounter Summary ---
Author Name Unknown Organization [facility] Address [address] [place] [address] Care Team Providers Care Marker Machine Attendant Name Role Phone Clover Delaney M.D. Primary Care Provider [phone]- [phone] Reason for Referral * Outpatient (Routine) - Closed Specialty Diagnoses / Procedures Referred By Yenny hunter Referred To Contact Diagnoses Hypertension And Chronic Kidney Disease Stage 5 (HCC) Proteinuria Procedures US Kidneys Bilateral with Bladder Mónica Portillo APRN, C.NTaylor., M.S. [address] [place] [phone] [facility] Referral ID Status Reason Start Date Expiration Date Visits Re quested Visits Authorized [id number] Closed 04/07/2023 04/06/2024 1 1 ORT COORDINATOR Reason for Visit * Outpatient (Routine) - Closed Specialty Diagnoses / Procedures Referred By Yenny hunter Referred To Contact Diagnoses Hypertension And Chronic Kidney Disease Stage 5 (HCC) Proteinuria Procedures US Kidneys Bilateral with Bladder Mónica Portillo APRN, C.NTaylor., M.S. [address] [place] [phone] [facility] Referral ID Status Reason Start Date Expiration Date Visits Re quested Visits Authorized [id number] Closed 04/07/2023 04/06/2024 1 1 Encounter Details Date Type Department Care Team (Latest Contact Info) Description 05/29/2023 9:24 AM SUPPORT COORDINATOR - 05/29/2023 11:59 PM SUPPORT COORDINATOR Hospital Encounter Department of Radiology, [facility], in [place], [place] [address] [place] [address] Mónica Portillo APRN, C.N.P., M.S. [address] [place] [address] Hypertension And Chronic Kidney Disease Stage 5 [...] How often do you attend chur or jewish services? Never 07/28/2022 Do you belong to [...] 2 05/28/2023 [facility] - Occupational Stress Questionnaire Answer [...] Sex Assigned at Male 05/13/2021 10:11 AM SUPPORT COORDINATOR Gender Identity Male 11/02/2017 7:22 PM [...] Apnea Adult DME Order 1 each 08/27/2021 iron,carbonyl-vitamin C (VITRON-C) 65 mg iron- [address] tablet Take 65 mg of iron by mouth daily. Do not crush or chew. loperamide (IMODIUM A-D) 2 mg tablet Take 2 mg by mouth as needed. miscellaneous medical supply [facility] CPAP Supplies See Instructions, CPAP machine, mask 1 ea x 4 refills, headgear 1 ea x 2 refills, tubing 1 ea x 4 refills, filters 2 ea per month, tub 1 ea x 2 refills, mask seal 1 ea x 2 refills DX G47.33, length of need 99, 1 each, 0 Refill(s) 10/20/2016 miscellaneous medical supply [facility] Head Gear for CPAP Machine See Instructions, fax to patient at [phone], 1 each 01/17/2014 MULTIVITAMIN ORAL Daily Multiple Vitamins See Instructions, Take 1 tablet by mouth daily. 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 8 each 3 06/09/2022 06/09/2023 amLODIPine (NORVASC) 5 mg tablet Take 1 [...] mouth daily. 90 tablet 3 07/29/2022 07/13/2023 OneTouch Ultra Test stripsIndications:Diabet es Mellitus Type 2 (HCC) Use to test once daily 100 strip 3 12/31/2021 06/03/2023 torsemide (DEMADEX) 10 mg tablet Take 3 tablets (30 mg total) by mouth daily. 270 tablet 3 01/16/2023 06/26/2023 documented as of this encounter Plan of Treatment Upcoming Encounters Date Type Department Care Team (Latest Contact Info) Description 08/19/2023 3:00 PM CDT Clinical Communication Virtual Review in [place], [place] 200 [place] [phone] 08/21/2023 1:30 PM CDT Comprehensive Visit Division of Pulmonary Medicine in [place], [place] [address] [place] [phone] Gallito Crabtree M.D. [address] [place] [phone] 09/08/2023 10:00 AM CDT Appointment Department of Laboratory Medicine in [place], [place] [address] [place] [address] Sera Casiano M.D., Ph.D. [address] [place] [phone] 09/08/2023 10:10 AM CDT Appointment Department of Laboratory Medicine in [place], [place] [address] [place] [address] Sera Casiano M.D., Ph.D. [address] [place] [phone] 09/28/2023 8:15 AM CDT Hospital Encounter Outpatient Surgery Unit in [place], [place] [address] [place] [phone] Sandeep Kuo M.D., Ph.D. [address] [place] [phone] 09/28/2023 8:15 AM CDT - 09/28/2023 11:06 AM CDT Surgery [facility] [address] [place] [address] Sandeep Kuo M.D., Ph.D. 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) 09/28/2023 8:15 AM CDT documented as of this encounter Procedures Procedure Name Priority Date/Time Associated Diagnosis Comments US KIDNEYS BILATERAL WITH BLADDER RAD - Routine (most inpatients and all outpatients) 05/29/2023 10:33 AM SUPPORT COORDINATOR Hypertension And Chronic Kidney Disease Stage 5 (HCC) Proteinuria documented in this encounter Results * US Kidneys Bilateral with Bladder (05/29/2023 10:33 AM SUPPORT COORDINATOR) Anatomical Region Laterality Modality Abdomen, Renal, Ultrasound R ST LOS, Ultrasound ARZ LOS, Ultrasound FLA LOS Bilateral Ultrasound Impressions 05/29/2023 11:37 AM SUPPORT COORDINATOR 1. Slightly thinned and hyperechoic appearance of [...] CT or MR. Narrative 05/29/2023 11:37 AM SUPPORT COORDINATOR EXAM: US KIDNEYS BILATERAL WITH BLADDER COMPARISON: [...] assessed with dedicated CT or MR. Mónica Portlilo APRN, C.N.P., M.S. IMG US PROCEDURES documented in this encounter Visit Diagnoses Diagnosis Hypertension And Chronic Kidney Disease Stage 5 (HCC) Proteinuria Failure Renal End Stage (HCC) documented in this encounter Additional Health Concerns Assessment Noted Time PHQ-9 Depression Total Score: 4 06/06/19 23 2:04 PM SUPPORT COORDINATOR documented as of this encounter Care Teams Marker Machine Attendant Relationship Specialty Start Date End Date Clover Delaney M.D. [address] [place] [phone] PCP - General Internal Medicine 11/23/17 documented as of this encounter
--- OUTSIDE RECORDS SUMMARY | 2023-08-16 14:00 | XMS_ITS | Encounter Summary ---
Author Name Unknown Organization [facility] Address [address] [place] [address] Care Team Providers Care Map Maker Name Role Phone Clover Delaney M.D. Primary Care Provider [phone]- [phone] Reason for Visit * Reason Comments Med Refill Encounter Details Date Type Department Care Team (Late st Contact Info) Description 05/05/2023 Refill Department of Community Internal Medicine in [address] [place] [phone] Clover Delaney M.D. [address] [place] [phone] Med Refill Social History Tobacco [...] Answer Date Recorded PHQ-2 Score 0 06/06/2022 [facility] - Occupational Stress Questionnaire Answer [...] Sex Assigned at Male 05/13/2021 10:11 AM DOOR MACHINE OPERATOR Gender Identity Male 11/02/2017 7:22 PM CDT Sexual Orientation Straight 11/02/2017 7: 22 PM CDT documented as of this encounter Miscellaneous Notes * Telephone Encounter - Jassi Peresi K - 05/06/2023 8:08 AM CST Lab Results Component Value Date HGBA1C 6.8 (H) 03/30/2023 MACHINE OPERATOR documented in this encounter Plan of Treatment Upcoming Encounters Date Type Department Care Team (Latest Contact Info) Description 08/19/2023 3:00 PM CDT Clinical Communication Virtual Review in [place], [place] 200 [place] [address] 08/21/2023 1:30 PM CDT Comprehensive Visit Division of Pulmonary Medicine in [place], [place] [address] [place] [phone] Gallito Crabtree M.D. [address] [place] [phone] 09/08/2023 10:00 AM CDT Appointment Department of Laboratory Medicine in [place] [address] [place] [phone] Sera Casiano M.D., Ph.D. [address] [place] [phone] 09/08/2023 10:10 AM CDT Appointment Department of Laboratory Medicine in [place] [address] [place] [phone] Sera Casiano M.D., Ph.D. [address] [place] [phone] 09/28/2023 8:15 AM CDT Hospital Encounter Outpatient Surgery Unit in [place], [place] [address] [place] [phone] Sandeep Kuo M.D., Ph.D. [address] [place] [phone] 09/28/2023 8:15 AM CDT - 09/28/2023 11:06 AM CDT Surgery [facility] [address] [place] [phone] Sandeep Kuo M.D., Ph.D. 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 [address] [place] [phone] PCP - General Internal Medicine 11/23/17 documented as of this encounter
--- OUTSIDE RECORDS SUMMARY | 2023-08-16 14:00 | XMS_ITS ---
Author Name Unknown Organization [facility] Address [address] [place] [address] Care Team Providers Care Supervisor Component Assembler Name Role Phone Clover Delaney M.D. Primary Care Provider +1 [phone] Status:Identified (Enrolling) Start date:04/01/2023 Continued Care and Services Coordination
--- OUTSIDE RECORDS SUMMARY | 2023-08-16 14:00 | XMS_ITS | Encounter Summary ---
Author Name Unknown Organization [facility] Address [address] [place] [address] Care Team Providers Care Change Director Name Role Phone Clover Delaney M.D. Primary Care Provider [phone] [phone] Encounter Details Date Type Department Care Team (Latest Contact Info) Description 05/28/2023 10:00 AM COATER CARBON PAPER - 05/28/2023 10:01 AM [facility] Hospital Encounter Department of Laboratory Medicine in [address] [place] [phone] Mónica Portillo, TRIXIE, C.N.P., M.S. [address] [place] [phone] Hypertension And Chronic Kidney Disease Stage 5 [...] Answer Date Recorded PHQ-2 Score 2 05/28/2023 [facility] of Occupat ional Health - Occupational Stress [...] Sex Assigned at Male 05/13/2021 10:11 AM COATER CARBON PAPER Gender Identity Male 11/02/2017 7:22 PM CDT [...] by mouth as needed. miscellaneous medical supply [facility] CPAP Supplies See Instructions, CPAP machine, mask 1 ea x 4 refills, headgear 1 ea x 2 refills, tubing 1 ea x 4 refills, filters 2 ea per month, tub 1 ea x 2 refills, mask seal 1 ea x 2 refills DX G47.33, length of need 99, 1 each, 0 Refill(s) 10/20/2016 miscellaneous medical supply [facility] Head Gear for CPAP Machine See Instructions, fax to patient at [phone], 1 each 01/17/2014 MULTIVITAMIN ORAL Daily Multiple Vitamins See Instructions, Take 1 tablet by mouth daily. 07/23/2013 ONETOUCH DELICA LANCETS 33 gauge [facility] 3 08/02/2018 prednisoLONE acetate (PRED FORTE) 1 [...] 8 each 3 06/09/2022 06/09/2023 amLODIPine (NORVASC) 10 mg tablet Take 1 tablet (10 mg total) by mouth daily. 90 tablet 3 03/30/2023 05/29/2023 doxazosin (CARDURA) 2 mg tablet Take 1 [...] by mouth daily. 180 tablet 3 09/05/2022 05/29/2023 insulin glargine (Lantus Solostar U-100 Insulin) 100 unit/mL (3 mL) injectionIndications:Subha betes Mellitus Type 2 Hyperglycemia (HCC) Inject 16 Units under the skin at bedtime. 15 mL 3 03/16/2023 06/29/2023 irbesartan (AVAPRO) 75 mg tablet Take 1 tablet (75 mg total) by mouth daily. 90 tablet 3 07/29/2022 07/13/2023 multivitamin-eye (PRESERVISION LUTEIN) 226 mg-90 mg-5 mg-0.8 mg capsule Take 2 capsules by mouth daily. 05/29/2023 OneTouch Ultra Test stripsIndications:Diabet es Mellitus Type 2 (HCC) Use to test once daily 100 strip 3 12/31/2021 06/03/2023 polyethylene glycol-electrolytes (GoLYTELY) 236-22.74-6.74 -5.86 gram solutionIndications:Canc er Colon Transverse Personal History Drink 1st portion of prep at 6 PM the evening before. 2nd portion must be started 3 hours before and finished 2 hours prior to report time 4000 mL 03/09/2023 05/29/2023 torsemide (DEMADEX) 10 mg tablet Take 3 tablets (30 mg total) by mouth daily. 270 tablet 3 01/16/2023 06/26/2023 documented as of this encounter Plan of Treatment Upcoming Encounters Date Type Department Care Team (Latest Contact Info) Description 08/19/2023 3:00 PM CDT Clinical Communication Virtual Review in [place], [place] 200 [place] [address] 08/21/2023 1:30 PM CDT Comprehensive Visit Division of Pulmonary Medicine in [place], [place] [address] [place] [phone] Gallito Crabtree M.D. [address] [place] [phone] 09/08/2023 10:00 AM CDT Appointment Department of Laboratory Medicine in [place] [address] [place] [phone] Sera Casiano M.D., Ph.D. [address] [place] [phone] 09/08/2023 10:10 AM CDT Appointment Department of Laboratory Medicine in [place] [address] [place] [phone] Sera Casiano M.D., Ph.D. [address] [place] [phone] 09/28/2023 8:15 AM CDT Hospital Encounter Outpatient Surgery Unit in [place], [place] [address] [place] [address] Sandeep Kuo M.D., Ph.D. [address] [place] [address] 09/28/2023 8:15 AM CDT - 09/28/2023 11:06 AM CDT Surgery [facility] [address] [place] [phone] Sandeep Kuo M.D., Ph.D. 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) 09/28/2023 8:15 AM CDT documented as of this encounter Procedures Procedure Name Priority Date/Time Associated Diagnosis Comments RENAL FUNCTION PANEL, S Routine 05/28/2023 10:08 AM COATER CARBON PAPER Hypertension And Chronic Kidney Disease Stage 5 (HCC) Proteinuria CYSTATIN C WITH EGFR Routine 05/28/2023 10:08 AM COATER CARBON PAPER Hypertension And Chronic Kidney Disease Stage 5 (HCC) Proteinuria documented in this encounter Results * (ABNORMAL) Cystatin C with Estimated GFR (05/28/2023 10:08 AM COATER CARBON PAPER) eGFR by Cystatin C 10(L) >60 mL/min/BSA 05/29/2023 1:20 PM COATER CARBON PAPER DTL Comment: Estimated GFR calculated using the [...] lower with the new assay. Cystatin C 4.35(H) 0.67 - 1.21 mg/L 05/29/2023 1:20 PM COATER CARBON PAPER DTL Blood (Blood, Venous) 05/28/2023 10:08 AM COATER CARBON PAPER 05/29/2023 12:56 PM COATER CARBON PAPER Mónica Portillo APRN, C.N.P., M.S. LAB BLOOD ADD-ON [facility] [address] [place] [address], [facility] [address] [place] [address] * (ABNORMAL) Renal Function Panel (05/28/2023 10:08 AM COATER CARBON PAPER) Potassium, P 4.4 3.6 - 5.2 mmol/L 05/28/2023 7:36 PM COATER CARBON PAPER RDWG Sodium, P 140 135 - 145 mmol/L 05/28/2023 7:36 PM COATER CARBON PAPER RDWG Chloride, P 101 98 - 107 mmol/L 05/28/2023 7:36 PM COATER CARBON PAPER RDWG Bicarbonate, P 25 22 - 29 mmol/L 05/28/2023 7:36 PM COATER CARBON PAPER RDWG Anion Gap, P 14 7 - 15 05/28/2023 7:36 PM COATER CARBON PAPER RDWG BUN (Blood Urea Nitrogen), P 66(H) 8 - 24 mg/dL 05/28/2023 7:36 PM COATER CARBON PAPER RDWG Creatinine 4.24(H) 0.74 - 1.35 mg/dL 05/28/2023 7:36 PM COATER CARBON PAPER RDWG Estimated GFR (eGFR) <15(L) >=60 mL/min/BSA 05/28/2023 7:36 PM COATER CARBON PAPER RDWG Comment: Estimated GFR calculated using the 2020 CKD_EPI creatinine equation. Calcium, Total, P 8.5(L) 8.8 - 10.2 mg/dL 05/28/2023 7:36 PM COATER CARBON PAPER RDWG Glucose, P 68(L) 70 - 140 mg/dL 05/28/2023 7:36 PM COATER CARBON PAPER RDWG Albumin, P 3.6 3.5 - 5.0 g/dL 05/28/2023 7:36 PM COATER CARBON PAPER RDWG Phosphorus (Inorganic), P 4.1 2.5 - 4.5 mg/dL 05/28/2023 7:36 PM COATER CARBON PAPER RDWG Blood (Blood, Venous) 05/28/2023 10:08 AM COATER CARBON PAPER 05/28/2023 7:36 PM COATER CARBON PAPER Mónica Portillo APRN, C.N.P., M.S. LAB BLOOD ADD-ON [facility] [address] [place] [address], [facility] RDWG [facility] in [place] [address] [place] [phone] documented in this encounter Visit Diagnoses Diagnosis Hypertension And Chronic Kidney Disease Stage 5 (HCC) Proteinuria Failure Renal End Stage (HCC) documented in this encounter Additional Health Concerns Assessment Noted Time PHQ-9 Depression Total Score: 4 06/06/19 23 2:04 PM COATER CARBON PAPER documented as of this encounter Care Teams Change Director Relationship Specialty Start Date End Date Clover Delaney M.D. [facility] [place] [phone] PCP - General Internal Medicine 11/23/17 documented as of this encounter
--- OUTSIDE RECORDS SUMMARY | 2023-08-16 14:00 | XMS_ITS | Encounter Summary ---
Author Name Unknown Organization [facility] Address [address] [place] [address] Care Team Providers Care Laboratory Cureman Name Role Phone Clover Delaney M.D. Primary Care Provider [phone] [phone] Encounter Details Date Type Department Care Team (Latest Contact Info) Description 05/28/2023 10:02 AM PHOTO PRINT SPECIALIST - 05/28/2023 11:59 PM [facility] Hospital Encounter Department of Laboratory Medicine in [address] [place] [phone] Mónica Portillo, TRIXIE, C.N.P., M.S. [address] [place] [phone] Hypertension And Chronic Kidney Disease Stage 5 [...] often do you attend chur ch or taoism services? Never 07/28/2022 Do you belong to any clubs o r organizations such as worship groups, unions, fraternal or athletic groups, or [...] Answer Date Recorded PHQ-2 Score 2 05/28/2023 [facility] of Occupat ional Health - Occupational Stress [...] Sex Assigned at Male 05/13/2021 10:11 AM PHOTO PRINT SPECIALIST Gender Identity Male 11/02/2017 7:22 PM [...] mouth as needed. miscellaneous medical supply [facility] CPAP Supplies See Instructions, CPAP machine, mask 1 ea x 4 refills, headgear 1 ea x 2 refills, tubing 1 ea x 4 refills, filters 2 ea per month, tub 1 ea x 2 refills, mask seal 1 ea x 2 refills DX G47.33, length of need 99, 1 each, 0 Refill(s) 10/20/2016 miscellaneous medical supply [facility] Head Gear for CPAP Machine See Instructions, fax to patient at [phone], 1 each 01/17/2014 MULTIVITAMIN ORAL Daily Multiple Vitamins See Instructions, Take 1 tablet by mouth daily. 07/23/2013 ONETOUCH DELICA LANCETS 33 gauge [facility] 3 08/02/2018 prednisoLONE acetate (PRED FORTE) 1 [...] PM CDT Clinical Communication Virtual Review in [place], [place] 200 [place] [address] 08/21/2023 1:30 PM CDT Comprehensive Visit Division of Pulmonary Medicine in [place], [place] [address] [place] [phone] Gallito Crabtree M.D. [address] [place] [phone] 09/08/2023 10:00 AM CDT Appointment Department of Laboratory Medicine in [place] [address] [place] [phone] Sera Casiano M.D., Ph.D. [address] [place] [phone] 09/08/2023 10:10 AM CDT Appointment Department of Laboratory Medicine in [place] [address] [place] [phone] Sera Casiano M.D., Ph.D. [address] [place] [phone] 09/28/2023 8:15 AM CDT Hospital Encounter Outpatient Surgery Unit in [place], [place] [address] [place] [address] Sandeep Kuo M.D., Ph.D. [address] [place] [address] 09/28/2023 8:15 AM CDT - 09/28/2023 11:06 AM CDT Surgery [facility] [address] [place] [phone] Sandeep Kuo M.D., Ph.D. 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) 09/28/2023 8:15 AM CDT documented as of this encounter Procedures Procedure Name Priority Date/Time Associated Diagnosis Comments URINALYSIS WITH MICROSCOPIC Routine 05/28/2023 10:13 AM PHOTO PRINT SPECIALIST Hypertension And Chronic Kidney Disease Stage 5 (HCC) Proteinuria documented in this encounter Results * (ABNORMAL) Urinalysis with Microscopic: Urine, Midstream (05/28/2023 10:13 AM PHOTO PRINT SPECIALIST) Source Urine, Urine, Midstream 05/28/2023 11:59 AM PHOTO PRINT SPECIALIST RDWG Clarity Clear Clear 05/28/2023 11:59 AM PHOTO PRINT SPECIALIST RDWG Color Yellow 05/28/2023 11:59 AM PHOTO PRINT SPECIALIST RDWG Comment: ----REFERENCE VALUE---- Colorless Yellow Susana Blood Trace(A) Negative 05/28/2023 11:59 AM PHOTO PRINT SPECIALIST RDWG Nitrite Negative Negative 05/28/2023 11:59 AM PHOTO PRINT SPECIALIST RDWG Leukocyte Esterase Negative Negative 05/28/2023 11:59 AM PHOTO PRINT SPECIALIST RDWG Protein >=300(A) mg/dL 05/28/2023 11:59 AM PHOTO PRINT SPECIALIST RDWG Comment: ----REFERENCE VALUE---- Negative Trace Glucose Negative Negative mg/dL 05/28/2023 11:59 AM PHOTO PRINT SPECIALIST RDWG Ketone Negative Negative mg/dL 05/28/2023 11:59 AM PHOTO PRINT SPECIALIST RDWG Bilirubin Negative Negative 05/28/2023 11:59 AM PHOTO PRINT SPECIALIST RDWG pH 6.5 5.0 - 8.0 05/28/2023 11:59 AM PHOTO PRINT SPECIALIST RDWG Specific [place] 1.012 1.001 - 1.035 05/28/2023 11:59 AM PHOTO PRINT SPECIALIST RDWG Urobilinogen 0.2 0.2 - 1.0 mg/dL 05/28/2023 11:59 AM PHOTO PRINT SPECIALIST RDWG White Blood Cells None Seen /hpf 05/28/2023 12:13 PM PHOTO PRINT SPECIALIST RDWG Comment: ----REFERENCE VALUE---- Males: 0-3 Females: 0-10 Unknown: 0-10 Red Blood Cells 3-10(A) 0 - 2 /hpf 12:13 PM PHOTO PRINT SPECIALIST RDWG Dysmorphic Red Blood Cells <=25 <=25 % 05/28/2023 12:13 PM PHOTO PRINT SPECIALIST RDWG Hyaline Casts 1-3 /lpf 05/28/2023 12:13 PM PHOTO PRINT SPECIALIST RDWG Urine (Urine, Midstream) 05/28/2023 10:13 AM PHOTO PRINT SPECIALIST 05/28/2023 11:30 AM PHOTO PRINT SPECIALIST Kassandra Couch APRN.N.P., M.S. LAB URINE ORDERABLES [facility] [address] [place] [address], [facility] R[facility] in [place] [address] [place] [phone] documented in this encounter Visit Diagnoses Diagnosis Hypertension And Chronic Kidney Disease Stage 5 (HCC) Proteinuria Failure Renal End Stage (HCC) documented in this encounter Additional Health Concerns Assessment Noted Time PHQ-9 Depression Total Score: 4 06/06/19 23 2:04 PM PHOTO PRINT SPECIALIST documented as of this encounter Care Teams Laboratory Cureman Relationship Specialty Start Date End Date Clover Delaney M.D. [address] [place] [phone] PCP - General Internal Medicine 11/23/17 documented as of this encounter
[2023-08-16 14:23] LABS: Basophils Percent Auto 0.3 % (0.0-3.0); Hemoglobin* 8.9 gm/dL (13.5-17.5); Immature Granulocytes Pct Auto 1.3 %; Lymphocytes Percent Auto 6.4 % (20-44); Mean Corpuscular HGB Conc 33 gm/dL (32-36); Mean Corpuscular Hemoglobin 31 pg (26-34); Mean Corpuscular Volume 94 fL (80-100); Monocytes Percent Auto 5.4 % (0.0-11.0); Neutrophils Percent Auto 85.6 % (42.0-72.0); Platelet Count* 156 K/uL (140-440); RDW Coefficient of Variation % 14.8 % (11.5-15.5); Red Blood Count 2.88 m/uL (4.30-5.90); White Blood Count* 11.56 K/uL (4.50-11.00)
[2023-08-16 14:26] LABS: Slide Review Reflex No
[2023-08-16 14:36] LABS: Chloride* 100 mmol/L (96-114); Potassium* 4.1 mmol/L (3.6-5.1); Sodium* 133 mmol/L (135-149)
[2023-08-16 14:38] LABS: INR 0.97 (0.91-1.10); Prothrombin Time 13.5 Seconds
[2023-08-16 14:39] LABS: Anion Gap 6 mEq/L (7-15); Carbon Dioxide* 27 mmol/L (20-32); Creatinine* 4.8 mg/dL (0.5-1.5); Est. Creatinine Clearance* 13.31; Estimated Glomerular Filt Rate 12 ml/min; Partial Thromboplastin Time* 27 Seconds (23-33)
[2023-08-16 14:40] LABS: Blood Urea Nitrogen* 81 mg/dL (7-30); Calcium* 8.7 mg/dL (8.4-10.6)
[2023-08-16 14:44] LABS: Glucose* 375 mg/dL (60-115)
[2023-08-16 14:54] LABS: NT Pro B Type NatriureticPept* 11500 pg/mL; Troponin I* 0.14 ng/mL (0.01-0.04)
[2023-08-16 16:33] LABS: Troponin, Point-of-Care* 0.14 ng/ml (0.01-0.04)
[2023-08-16] MEDS: APIXABAN 5 MG TABLET 2.5 MG PO (16:52)
== END 2023-08-16 16:56 | disposition home or self-care (01) ==
PROVIDERS: Emergency Medicine Emergency Medical Services; Emergency Provider Family Medicine; PCP Pediatrics
DX: I48.20 Chronic atrial fibrillation, unspecified (principal); N18.9 Chronic kidney disease, unspecified; D64.9 Anemia, unspecified; I10 Essential (primary) hypertension
CPT/HCPCS: 36415; 80048; 83880; 84484; 85025; 85610; 85730; 86850; 86900; 86901; 93005; 99284; A9270

== ENCOUNTER 2023-09-05 18:33 | Outpatient (CLI) | payer MEDICARE, SELFPAY ==
--- OUTSIDE RECORDS SUMMARY | 2023-09-06 06:14 | XMS_ITS | Encounter Summary ---
Author Name Unknown Organization [facility] Address [address] [place] [address] Care Team Providers Care Roller Gold Leaf Name Role Phone Clover Delaney M.D. Primary Care Provider [phone]- [phone] Reason for Visit * Reason Comments Med Refill Encounter Details Date Type Department Care Team (Late st Contact Info) Description 08/28/2023 Refill Department of Community Internal Medicine in [address] [place] [phone] Clover Delaney M.D. [address] [place] [phone] Med Refill Social History Tobacco Use Types Packs/Day Years Used Date Smoking Tobacco: Former Cigarettes 0 1961 - 12/26/1980 Passive Smoke Exposure: Never Smokeless Tobacco: Never Alcohol Use Standard Drinks/Week Comments Yes 0 (1 standard drink = 0.6 oz pur e alcohol) Maybe one drink per month [facility] Utilities Answer Date Recorded In the past 12 months has e electric, gas, oil, or water [employer] threatened to shut off services in your home? No 08/28/2023 Humiliation, Afraid, Rape, and Kick questionnair e [...] Answer Date Recorded PHQ-2 Score 2 05/28/2023 [facility] of Occupat ional Health - [...] exercise (like a brisk walk)? 0 days 08/28/2023 On average, how many minutes do you engage in exercise at this level? 0 min 08/28/2023 Hunger Vital Sign Answer Date Recorded Within the past 12 months, y ou worried that your food would run out before you got the money to buy more. Never true 08/28/19 24 Within the past 12 months, t he food you bought just didn't last and you didn't have money to get more. Never true 08/28/2023 PRAPARE - Transportation Answer Date Re corded In the past 12 months, has l ack of transportation kept you from medical appointments or from getting medications? No 06/2023 In the past 12 months, has l ack of transportation kept you from meetings, work, or from getting things needed for daily living? No 08/28/2023 Depression Answer Date Recor ded PHQ-9 Total Score (max 27) 4 06/06 Nutrition Answer Date Recorded On average, how many serving s of fruits and vegetables do you eat per day (serving size is equal to 1 cup or approximately the size of a tennis ball)? 3-5 08/28/2023 Dental Answer Date Recorded Dental: Regular Dentist Yes 06/20/19 Employment Answer Date Recorded Employment status Employed but not working due t o illness or injury 08/28/2023 Housing Stability Answer Date Recorded What is your living situation today? [facility] 08/28/2023 Education Answer Date Recorded What is the highest level of school you have completed or the highest degree you have received? Professional school degree (e.g., MD, DDS, DVM, NACHO) 10/10/2020 Sex and Gender Information Value Date Recorded Sex Assigned at Male 05/13/2021 10:11 AM CLOTH STRETCHER Gender Identity Male 11/02/2017 7:22 PM CDT Sexual Orientation Straight 11/02/2017 7: 22 PM CDT documented as of this encounter Miscellaneous Notes * Telephone Encounter - Markus Ellis - 08/31/2023 6:47 AM CDT Nurse review: Med Refill Team is unable to forward request to provider. Patient called for refills. According to patient's chart, should have refills remaining. Please call and verify with patient. Per EMR, Rx was faxed to [facility] on 08-18-23 for 8 sensors. Primary Provider: Clover Delaney M.D. Requested Prescriptions Pending Prescriptions Disp Refills flash glucose sensor (FreeStyle Brionna 2 Sensor) kit 8 each 0 documented in this encounter Plan of Treatment Upcoming Encounters Date Type Department Care Team (Latest Contact Info) Description 09/08/2023 10:00 AM CDT Appointment Department of Laboratory Medicine in [address] [place] [address] Sera Casiano M.D., Ph.D. [address] [place] [phone] 09/08/2023 10:10 AM CDT Appointment Department of Laboratory Medicine in [place] [address] [place] [address] Sera Casiano M.D., Ph.D. [address] [place] [phone] 09/08/2023 2:00 PM CDT Virtual Visit Department of Family Medicine, [facility], in [address] [phone] Clover Delaney M.D. [address] [place] [phone] Discharge Disposition: Home or Self Care 09/10/2023 10:45 AM CDT Clinical Communication Virtual Review in [address] [phone] 09/10/2023 2:30 PM CDT Ancillary Procedure Department of Cardiovascular Diseases in [address] [phone] Clover Delaney M.D. [address] [place] [phone] Discharge Disposition: Home or Self Care 09/14/2023 9:30 AM CDT Comprehensive Visit Division of Pulmonary Medicine in [place], [place] [address] [place] [phone] Luis Carrion M.B.BJosé LuisS. [address] [place] [phone] 10/01/2023 9:30 AM CDT Comprehensive Visit Department of Cardiovascular Diseases in [address] [phone] Nikko Dey M.D. [address] [place] [phone] Discharge Disposition: Home or Self Care 10/27/2023 2:25 PM CDT Appointment Department of Cardiovascular Diseases in [place], [place] [address] [place] [phone] Clover Delaney M.D. 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 [address] [place] [phone] PCP - General Internal Medicine 11/23/17 documented as of this encounter
--- OUTSIDE RECORDS SUMMARY | 2023-09-06 06:14 | XMS_ITS ---
Author Name Unknown Organization [facility] Address [address] [place] [address] Care Team Providers Care Medical Office Receptionist Name Role Phone Unavailable Unavailable Unavailable Surgery Details Not on file Complications Check Surgery Details section. Procedure Estimated Blood Loss Check Surgery Details section. Procedure Findings Check Surgery Details section. Procedure Specimens Taken Check Surgery Details section.
--- OUTSIDE RECORDS SUMMARY | 2023-09-06 06:14 | XMS_ITS | Encounter Summary ---
Author Name Unknown Organization [facility] Address [address] [place] [id number] Care Team Providers Care Catcher Helper Name Role Phone Clover Delaney M.D. Primary Care Provider [phone]- [phone] Reason for Visit * Reason Comments Med Refill Encounter Details Date Type Department Care Team (Late st Contact Info) Description 09/05/2023 Refill Department of Ophthalmology in [place], [place] [address] [place] [phone] Jon Juarez M.D. [address] [place] [phone] Med Refill Social History Tobacco Use Types Packs/Day Years Used Date Smoking Tobacco: Former Cigarettes 0 1961 - 12/26/1980 Passive Smoke Exposure: Never Smokeless Tobacco: Never Alcohol Use Standard Drinks/Week Comments Yes 0 (1 standard drink = 0.6 oz pur e alcohol) Maybe one drink per month [facility] Utilities Answer Date Recorded In the past 12 months has e [employer], gas, oil, or water [employer] threatened to shut off services in your [...] How often do you attend chur or pentecostal services? Never 07/28/2022 Do you [...] Answer Date Recorded PHQ-2 Score 2 05/28/2023 [facility] [place] of Occupat ional Health - Occupational Stress [...] your living situation today? I have a [facility] place to live 08/28/2023 Education Answer Date Recorded What is the highest level of school you have completed or the highest degree you have received? Professional school degree (e.g., MD, DDS, DVM, NACHO) 10/10/2020 Sex and Gender Information Value Date Recorded Sex Assigned at Male 05/13/2021 10:11 AM ASSESSMENT EXPERT Gender Identity Male 11/02/2017 7:22 PM CDT Sexual Orientation Straight 11/02/2017 7: 22 PM CDT documented as of this encounter Plan of Treatment Upcoming Encounters Date Type Department Care Team (Latest Contact Info) Description 09/08/2023 10:00 AM CDT Appointment Department of Laboratory Medicine in [place] [address] [place] [phone] Sera Casiano M.D., Ph.D. [address] [place] [phone] 09/08/2023 10:10 AM CDT Appointment Department of Laboratory Medicine in [address] [place] [phone] Sera Casiano M.D., Ph.D. [address] [place] [phone] 09/08/2023 2:00 PM CDT Virtual Visit Department of Family Medicine, [facility], in [address] [phone] Clover Delaney M.D. [address] [place] [phone] Discharge Disposition: Home or Self Care 09/10/2023 10:45 AM CDT Clinical Communication Virtual Review in [place], [place] 200 [place] [phone] 09/10/2023 2:30 PM CDT Ancillary Procedure Department of Cardiovascular Diseases in [address] [phone] Clover Delaney M.D. [address] [place] [phone] Discharge Disposition: Home or Self Care 09/14/2023 9:30 AM CDT Comprehensive Visit Division of Pulmonary Medicine in [place], [place] [address] [place] [phone] Luis Carrion M.B.B.S. [address] [place] [phone] 10/01/2023 9:30 AM CDT Comprehensive Visit Department of Cardiovascular Diseases in [place], [place] 701 [place] [phone] Nikko Dey M.D. [address] [place] [phone] Discharge Disposition: Home or Self Care 10/27/2023 2:25 PM CDT Appointment Department of Cardiovascular Diseases in [place], [place] [address] [place] [address] Clover Delaney M.D. [address] [place] [phone] Discharge Disposition: Home or Self Care documented as of this encounter Visit Diagnoses Not on filedocumented in this encounter Additional Health Concerns Assessment Noted Time PHQ-9 Depression Total Score: 4 06/06/19 23 2:04 PM ASSESSMENT EXPERT documented as of this encounter Care Teams Catcher Helper Relationship Specialty Start Date End Date Clover Delaney M.D. [address] [place] [phone] PCP - General Internal Medicine 11/23/17 documented as of this encounter
--- OUTSIDE RECORDS SUMMARY | 2023-09-06 06:14 | XMS_ITS | Encounter Summary ---
Author Name Unknown Organization [facility] Address [address] [place] [address] Care Team Providers Care Seismograph Chief Name Role Phone Clover Delaney M.D. Primary Care Provider [phone]- [phone] Encounter Details Date Type Department Care Team (Late st Contact Info) Description 09/01/2023 Clinical Communication Department of Community Internal Medicine in [address] [place] [phone] Clover Delaney M.D. [address] [place] [phone] Social History Tobacco Use Types Packs/Day Years Used Date Smoking Tobacco: Former Cigarettes 0 1961 - 12/26/1980 Passive Smoke Exposure: Never Smokeless Tobacco: Never Alcohol Use Standard Drinks/Week Comments Yes 0 (1 standard drink = 0.6 oz pur e alcohol) Maybe one drink per month [facility] Utilities Answer Date Recorded In the past 12 months has e [employer] gas, oil, or water [employer] threatened to shut off services in your [...] How often do you attend chur or voodoo services? Never 07/28/2022 Do you [...] Answer Date Recorded PHQ-2 Score 2 05/28/2023 [facility] [place] of Occupat ional Health - Occupational Stress [...] your living situation today? I have a [facility] place to live 08/28/2023 Education Answer Date Recorded What is the highest level of school you have completed or the highest degree you have received? Professional school degree (e.g., MD, DDS, DVM, NACHO) 10/10/2020 Sex and Gender Information Value Date Recorded Sex Assigned at Male 05/13/2021 10:11 AM INVESTIGATIVE AGENT Gender Identity Male 11/02/2017 7:22 PM CDT Sexual Orientation Straight 11/02/2017 7: 22 PM CDT documented as of this encounter Plan of Treatment Upcoming Encounters Date Type Department Care Team (Latest Contact Info) Description 09/08/2023 10:00 AM CDT Appointment Department of Laboratory Medicine in [place] [address] [place] [phone] Sera Casiano M.D., Ph.D. [address] [place] [phone] 09/08/2023 10:10 AM CDT Appointment Department of Laboratory Medicine in [address] [place] [phone] Sera Casiano M.D., Ph.D. [address] [place] [phone] 09/08/2023 2:00 PM CDT Virtual Visit Department of Family Medicine, [facility], in [address] [phone] Clover Delaney M.D. [address] [place] [phone] Discharge Disposition: Home or Self Care 09/10/2023 10:45 AM CDT Clinical Communication Virtual Review in [place], [place] 200 [place] [address] 09/10/2023 2:30 PM CDT Ancillary Procedure Department of Cardiovascular Diseases in [address] [phone] Clover Delaney M.D. [address] [place] [phone] Discharge Disposition: Home or Self Care 09/14/2023 9:30 AM CDT Comprehensive Visit Division of Pulmonary Medicine in [place], [place] [address] [place] [phone] Luis Carrion M.B.B.S. [address] [place] [phone] 10/01/2023 9:30 AM CDT Comprehensive Visit Department of Cardiovascular Diseases in [place], [place] 701 [place] [phone] Nikko Dey M.D. [address] [place] [phone] Discharge Disposition: Home or Self Care 10/27/2023 2:25 PM CDT Appointment Department of Cardiovascular Diseases in [place], [place] [address] [place] [address] Clover Delaney M.D. [address] [place] [phone] Discharge Disposition: Home or Self Care documented as of this encounter Visit Diagnoses Not on filedocumented in this encounter Additional Health Concerns Assessment Noted Time PHQ-9 Depression Total Score: 4 06/06/19 23 2:04 PM INVESTIGATIVE AGENT documented as of this encounter Care Teams Seismograph Chief Relationship Specialty Start Date End Date Clover Delaney M.D. [address] [place] [phone] PCP - General Internal Medicine 11/23/17 documented as of this encounter
--- OUTSIDE RECORDS SUMMARY | 2023-09-06 06:14 | XMS_ITS ---
Author Name Unknown Organization [facility] Address [address] [place] [address] Care Team Providers Care Power Manager Name Role Phone Clover Macias M.D. 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 Was doing well on lisinopril, until [place] and hyperkalemia. Did not tolerate CCB. Last Assessment & Plan: >>ASSESSMENT AND PLAN FOR HYPERTENSION AND CHRONIC KIDNEY DISEASE STAGE 4 WRITTEN ON 07/01/2018 3:01 PM BY CLOVER MACIAS M.D. Tolerating lisinopril 5mg. BP not controlled. Increase to 10mg and recheck BMP in 2-3 weeks. Hyperparathyroidism 05/26/2023 Anemia Of Chronic Renal Disease 07/29/2022 Anemia Iron Deficiency 07/29/2022 Vitrectomy Status Post 03/18/2022 Diabetes Mellitus Type 2 Wit h Proliferative Diabetic Retinopathy Without Macular Edema Bilateral 11/11/2021 Glaucoma Neovascular 11/09/2021 Overview: Added automatically from request for surgery [id number] Cancer Colon Transverse Personal History 020 Overview: 03/2018 No evidence of metastatic disease, stable colon, diverticulosis on CT 04/09/2020 ([facility], [facility]) Repeat colonoscopy fall [address] Sewell (oncology, [place]), follow up Dr. Sewell 6-12 months with [...] of 03/2020 and determined to be benign ([facility] records). 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 Past Plans Infusion Therapy 1 Plan Name Start Date Discontinue Date Treatment Medications Discontinue Reason Plan Provider darbepoetin kerri (ARANESP) 09/03/2022 08/26/2023 No medications scheduled. Therapy Complete Mónica Portillo APRN, C.N.P., M.S. FERUMOXYTOL (FERAHEME) 09/03/2022 09/03/2022 No medications scheduled. Therapy Complete Mónica Portillo APRN, C.N.P., M.S. ELECTROLYTE ADMINISTRATION 09/03/2022 12/17/2020 No medications scheduled. Upgrade 2019 Therapy Plan Conversion Tahira Fall M.D. Radiation Treatments * No radiation treatments are documented for this patient in [facility]. Treatments may have been administered [...] Wound Foot Open Initial Left 01/26/2018 03/08/2018 Leukocytosis 01/22/2018 08/28/2023 Edema Leg 01/22/2018 07/01/2018 Malignant Neoplasm Of Transverse Colon 12/12/2017 08/28/2023 Anemia 12/01/2017 05/26/2023 Overview: Due to colon cancer Fatigue 12/01/2017 07/01/2018 Overview: Added automatically from request for surgery [id number] Hematochezia 11/09/2017 07/01/2018 Overview: Added automatically from request for surgery [id number] Diarrhea 11/09/2017 09/28/2018 Overview: S/P recurrent c diff. Tolerates 1500mg metformin per day. Cancer Colon Family History 01/19/2015 01/06/2020 Chronic Kidney Disease (CKD) , Stage 3b Glomerular Filtration Rate (GFR) 30 To 44 10/08/2009 08/28/2023
--- OUTSIDE RECORDS SUMMARY | 2023-09-06 06:14 | XMS_ITS | Clinical Summary ---
Author Name Unknown Organization [facility] Address [address] [place] [address] Care Team Providers Care Litigation Attorney Name Role Phone Clover Macias M.D. Primary Care Provider [phone] Source Comments Patient records contain information from all sites at [facility]. For routine questions regarding patient records, call [phone] during business hours, M-F 8:00 AM - 5:00 PM Central Time. Record requests for emergency care only can be directed to [phone] at any time.[facility] Allergies Active Allergy Reactions Criticality Noted Date Comments Amlodipine Edema High 07/10/2023 Epinephrine Palpitations High 11/11/2012 Tachycardia Penicillins Itching,Rash Medium 11/11/2012 Medications Medication Sig Dispensed Refills Start Date End Date Status miscellaneous medical supply [facility] CPAP Supplies See Instructions, CPAP machine, mask 1 ea x 4 refills, headgear 1 ea x 2 refills, tubing 1 ea x 4 refills, filters 2 ea per month, tub 1 ea x 2 refills, mask seal 1 ea x 2 refills DX G47.33, length of need 99, 1 each, 0 Refill(s) 7 Active miscellaneous medical supply [facility] Head Gear for CPAP Machine See Instructions, fax to patient at [phone], 1 each 4 Active MULTIVITAMIN ORAL Daily Multiple Vitamins See Instructions, Take 1 tablet by mouth daily. 4 Active ONETOUCH DELICA LANCETS 33 gauge misc 3 9 Active loperamide (IMODIUM A-D) 2 mg tablet Take 2 mg by mouth as needed. Active aspirin 81 mg chewable tablet Chew 1 tablet (81 mg total) daily. 90 tablet 3 0 Active cyanocobalamin (VITAMIN B12) 1,000 mcg tablet Take 1,000 mcg by mouth daily. Active DME CPAPIndications:Ob structive Sleep Apnea Adult DME Order 1 each 2 Active UltiCare Pen Needle 31 gauge x 04/30 needleIndications: Diabetes Mellitus Type 2 With Diabetic Neuropathy Hyperglycemic (HCC) Use to inject insulin daily 100 each 3 2 Active cholecalciferol (VITAMIN D3) 50 mcg (2,000 Unit) tablet Take 50 mcg by mouth daily. Active iron,carbonyl-shannan min C (VITRON-C) 65 mg iron- [address] tablet Take 65 mg of iron by mouth daily. Do not crush or chew. Active predniSONE (DELTASONE) 5 mg tablet TAKE ONE TABLET BY MOUTH ONE TIME DAILY 90 tablet 3 3 Active prednisoLONE acetate (PRED FORTE) 1 % ophthalmic suspension Instill 1 drop in left eye once daily 5 mL 3 Active prednisoLONE acetate (PRED FORTE) 1 % ophthalmic suspension place 1 drop into the left eye once daily. 5 mL 3 Active prednisoLONE acetate (PRED FORTE) 1 % ophthalmic suspension place 1 drop into the left eye once daily. 5 mL 3 Active sodium bicarbonate 650 mg tablet Take 1 tablet (650 mg total) by mouth 2 (two) times a day. 180 tablet 3 3 Active sevelamer carbonate (RENVELA) 800 mg tablet Take 1 tablet (800 mg total) by mouth 3 (three) times a day with meals. 270 tablet 3 3 04/06/20 24 Active BD Ultra-Fine Josefina Pen Needle 32 gauge x needle USE TO INJECT ONCE DAILY 100 each 3 4 Active OneTouch Ultra Test StripsIndications: Diabetes Mellitus Type 2 (HCC) Use to test once daily. 100 strip 3 4 Active FLUoxetine (PROzac) 10 mg capsule Take 1 capsule (10 mg total) by mouth daily. 90 capsule 1 4 Active doxazosin (CARDURA) 4 mg tablet Take 1 tablet (4 mg total) by mouth daily. 90 tablet 3 4 06/26/19 25 Active tirzepatide (Mounjaro) 5 mg/0.5 mL pen injector injectionIndicatio ns:Morbid Obesity (HCC) Inject 0.5 mL (5 mg total) under the skin every 7 (seven) days for 4 doses. 2 mL 4 Active tirzepatide (Mounjaro) 7.5 mg/0.5 mL pen injector injectionIndicatio ns:Morbid Obesity (HCC) Inject 0.5 mL (7.5 mg total) under the skin every 7 (seven) days for 4 doses. 2 mL 4 Active tirzepatide (Mounjaro) 2.5 mg/0.5 mL pen injector injectionIndicatio ns:Morbid Obesity (HCC) Inject 0.5 mL (2.5 mg total) under the skin every 7 (seven) days for 4 doses. From week 1 to week 4. 2 mL 4 Active tirzepatide (Mounjaro) 10 mg/0.5 mL pen injector injectionIndicatio ns:Morbid Obesity (HCC) Inject 0.5 mL (10 mg total) under the skin every 7 (seven) days. 6 mL 3 4 09/03/19 25 Active atorvastatin (LIPITOR) 40 mg tabletIndications: Morbid Obesity (HCC) Take 1 tablet (40 mg total) by mouth daily. 90 tablet 3 4 Active irbesartan (AVAPRO) 75 mg tablet Take 1 tablet (75 mg total) by mouth daily. 90 tablet 3 4 Active cloNIDine (CATAPRES) 0.2 mg tablet Take 1 tablet (0.2 mg total) by mouth 2 (two) times a day. 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 1 each 4 Active torsemide (DEMADEX) 20 mg tablet Take 2 tablets (40 mg total) by mouth daily. 180 tablet 3 4 08/28/19 25 Active Eliquis 2.5 mg tablet Take 1 tablet by mouth 2 (two) times a day. 4 Active carvediloL (COREG) 12.5 mg tablet Take 0.5 tablets (6.25 mg total) by mouth 2 (two) times a day with meals. 180 tablet 4 Active flash glucose sensor (FreeStyle Brionna 2 Sensor) kitIndications:Lance betes Mellitus Type 2 With Proliferative Diabetic Retinopathy Without Macular Edema Bilateral (HCC) Inject 1 each (1 kit total) under the skin every 14 (fourteen) days. 6 kit 3 4 08/31/19 25 Active carvediloL (COREG) 12.5 mg tablet TAKE ONE TABLET BY MOUTH TWICE A DAY WITH MEALS 180 tablet 3 3 08/28/19 24 Discontinued torsemide (DEMADEX) 20 mg tablet Take 3 tablets (60 mg total) by mouth daily. 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 8 each 4 08/28/19 24 Discontinued(Reo rder) carvediloL (COREG) 12.5 mg tablet take one tablet by mouth twice a day with meals 180 tablet 4 08/28/19 24 Discontinued(Reo rder) Hospital, Clinic, or Other Facility Administered Medication [...] 4 WRITTEN ON 07/01/2018 3:01 PM BY DALIGGA, CLOVER M, M.D. Was doing well on lisinopril, until [...] Overview: Added automatically from request for surgery [id number] Cancer Colon Transverse Personal History 020 Overview: 03/2018 No evidence of metastatic disease, stable colon, diverticulosis on CT 04/09/2020 ([facility]) Repeat colonoscopy fall [address] Sewell (oncology, [place]), follow up Dr. Sewell 6-12 months with [...] of 03/2020 and determined to be benign ([facility] records). 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 Tolerates 1500mg metformin per day. Cancer Colon Family History 01/19/2015 01/06/2020 Chronic Kidney Disease (CKD) , Stage 3b Glomerular Filtration Rate (GFR) 30 To 44 10/08/2009 08/28/2023 Encounters Date Type Department Care Team Description 09/05/2023 Refill Department of Ophthalmology in [place], [place] [address] [place] [address] Jon Juarez M.D. Med Refill 09/01/2023 Clinical Communication Department of [facility] Internal Medicine in [place] [address] [place] [phone] Clover Macias M.D. 08/28/2023 3:30 PM CDT Office Visit Department of [facility] Internal Medicine in [place] [address] [place] [address] Clover Macias M.D. 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 Med Refill 08/27/2023 Refill Division of Nephrology and Hypertension in [address] [address] Mónica Portillo APRN, C.N.P., M.S. Med Refill 08/25/2023 Clinical Communication Division of Nephrology and Hypertension in [place], [place] [address] [place] [address] Sera Casiano M.D., Ph.D. infusion orders 08/25/2023 Refill Department of Ophthalmology in [place], [place] [address] [place] [phone] Jon Juarez M.D. Med Refill 08/22/2023 Nurse Triage Department of [facility] Internal Medicine in [place] [address] [place] [address] Savanah Gibson M.S.N., R.N. Hyperglycemia 08/21/2023 Orders Only Division of Endocrinology in [place], [place] [address] [place] [address] Cammy Silva M.D. Diabetes Mellitus Type 2 With Diabetic Neuropathy (HCC) (Primary Dx) 08/21/2023 Refill Department of [facility] Internal Medicine in [place] [address] [place] [address] Clover Macias M.D. Med Refill 08/20/2023 3:08 PM CDT - 08/20/2023 11:59 PM CDT Hospital Encounter Department of Radiology in [place] [address] [place] [address] Clover Macias M.D. Atrial Fibrillation Unspecified (HCC); Hypertensive Chronic Kidney Disease With Stage 5 Chronic Kidney Disease Or End Stage Renal Disease, Chronic Kidney Disease Stage 5 (HCC) Discharge Disposition: Home or Self Care 08/20/2023 3:07 PM CDT Hospital Encounter Department of Radiology in [place] [address] [place] [address] Clover Macias M.D. Atrial Fibrillation Unspecified (HCC); Hypertensive Chronic Kidney Disease With Stage 5 Chronic Kidney Disease Or End Stage Renal Disease, Chronic Kidney Disease Stage 5 (HCC) Discharge Disposition: Home or Self Care 08/20/2023 3:00 PM CDT - 08/20/2023 3:06 PM CDT Hospital Encounter Department of Laboratory Medicine in [place] [address] [place] [address] Clover Macias M.D. 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 08/19/2023 Orders Only Department of Community Internal Medicine in [address] [place] [address] Clover Macias M.D. Atrial Fibrillation Unspecified (HCC) (Primary Dx); Hypertensive Chronic Kidney Disease With Stage 5 Chronic Kidney Disease Or End Stage Renal Disease, Chronic Kidney Disease Stage 5 (HCC) 08/17/2023 Refill Department of [facility] Internal Medicine in [place] [address] [place] [address] Clover Macias M.D. Med Refill 08/16/2023 Nurse Triage Department of Community Internal Medicine in [place], [place] [address] [place] [address] [place] [address] Philomena Raya, R.N. Bradycardia; Weakness - Generalized 08/10/2023 Clinical Communication Division of Nephrology and Hypertension in [place], [place] [address] [place] [address] Kanwal Roberts, R.N. 08/05/2023 4:00 PM CDT External Outreach Division of Nephrology and Hypertension in [place], [place] [address] [place] [address] Sera Casiano M.D., Ph.D. Chronic Kidney Disease Stage 5 Glomerular Filtration Rate Less Than 15 (HCC) (Primary Dx); Preoperative Exam; Hypertensive Chronic Kidney Disease With Stage 5 Chronic Kidney Disease Or End Stage Renal Disease, Chronic Kidney Disease Stage 5 (HCC) 07/29/2023 2:40 PM CDT - 07/29/2023 11:59 PM CDT Hospital Encounter Division of Nephrology and Hypertension, [place], in [place], [place] [address] [place] [address] Sera Casiano M.D., Ph.D. Sandeep Kuo M.D., Ph.D. Chronic Kidney Disease Stage 5 Glomerular Filtration Rate Less Than 15 (HCC) Discharge Disposition: Home or Self Care 07/29/2023 12:13 PM CDT - 07/29/2023 2:39 PM CDT Hospital Encounter Department of Radiology, [place], [place] [address] [place] [address] Sera Casiano M.D., Ph.D. Chronic Kidney Disease Stage 5 Glomerular Filtration Rate Less Than 15 (HCC) Discharge Disposition: Home or Self Care 07/29/2023 10:52 AM CDT - 07/29/2023 12:12 PM CDT Hospital Encounter Department of Radiology, [place], [place] [address] [place] [address] Sera Casiano M.D., Ph.D. 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 07/23/2023 Clinical Communication Division of Nephrology and Hypertension in [place], [place] [address] [place] [address] Monica Ferreira R.N., C.M.S.R.N. 07/17/2023 1:00 PM CDT Virtual Visit Division of Nephrology and Hypertension in [place], [place] [address] [place] [address] Sera Casiano M.D., Ph.D. Kanwal Roberts R.Cally. Chronic Kidney Disease Stage 5 Glomerular Filtration Rate Less Than 15 (HCC) (Primary Dx) 07/17/2023 Orders Only Division of Nephrology and Hypertension in [place], [place] [address] [place] [address] Sera Casiano M.D., Ph.D. 07/11/2023 Refill Division of Nephrology and Hypertension in [place], [place] [address] [place] [address] Mónica Portillo APRN, C.N.P., M.S. Med Refill 07/10/2023 2:30 PM CDT Nurse Only Division of Nephrology and Hypertension in [place], [place] [address] [place] [phone] Sera Casiano M.D., Ph.D. Aislinn Sharma, R.N. home blood pressure monitor check 07/10/2023 1:00 PM CDT Comprehensive Visit Division of Nephrology and Hypertension in [place], [place] [address] [place] [phone] Sera Casiano M.D., Ph.D. Elana lAmonte, JANINAN, LD Chronic Kidney Disease Stage 5 Glomerular Filtration Rate Less Than 15 (HCC) 07/06/2023 9:06 AM CDT - 07/06/2023 11:59 PM CDT Hospital Encounter Department of Laboratory Medicine in [address] [place] [address] Sera Casiano M.D., Ph.D. Hypertension And Chronic Kidney Disease Stage 5 (HCC); Proteinuria; 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 Discharge Disposition: Home or Self Care 07/06/2023 9:06 AM CDT - 07/06/2023 11:59 PM CDT Hospital Encounter Department of Laboratory Medicine in [address] [place] [address] Sera Casiano M.D., Ph.D. Hypertension And Chronic Kidney Disease Stage 5 (HCC); Proteinuria; 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 Discharge Disposition: Home or Self Care 06/30/2023 Orders Only Division of Nephrology and Hypertension in [place], [place] [address] [place] [phone] Sera Casiano M.D., Ph.D. 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 Clover Macias M.D. 06/29/2023 1:30 PM ASSISTANT PROFESSOR OF BIOCHEMISTRY Comprehensive Visit Division of Endocrinology in [place], [place] [address] [place] [address] Sera Casiano M.D., Ph.D. Cammy Silva M.D. Diabetes Mellitus Type 2 (HCC) (Primary Dx); Hypertension And Chronic Kidney Disease Stage 5 (HCC); Proteinuria; Insufficiency Adrenal Secondary (HCC); Morbid Obesity (HCC) 06/29/2023 11:47 AM ASSISTANT PROFESSOR OF BIOCHEMISTRY - 06/29/2023 11:59 PM ASSISTANT PROFESSOR OF BIOCHEMISTRY Hospital Encounter Department of Laboratory Medicine and Pathology, [facility] in [place], [place] [address] [place] [address] Sera Casiano M.D., Ph.D. Hyperkalemia; 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 Discharge Disposition: Home or Self Care 06/26/2023 4:00 PM ASSISTANT PROFESSOR OF BIOCHEMISTRY Office Visit Division of Nephrology and Hypertension in [place], [place] [address] [place] [phone] Sera Casiano M.D., Ph.D. Chronic Kidney Disease Stage 5 Glomerular Filtration Rate Less Than 15 (HCC) (Primary Dx); Hyperkalemia; 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 06/26/2023 3:00 PM ASSISTANT PROFESSOR OF BIOCHEMISTRY Education Division of Nephrology and Hypertension in [address] [address] Sera Casiano M.D., Ph.D. Sandeep Galicia R.N. Chronic Kidney Disease Stage 4 Glomerular Filtration Rate 15-29 (HCC) 06/26/2023 8:15 AM ASSISTANT PROFESSOR OF BIOCHEMISTRY Internal E-Consult Division of Pulmonary Medicine in [address] [address] Louie Aleman M.D. 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 06/16/2023 Orders Only Division of Nephrology and Hypertension in [address] [address] Sandeep Galicia R.N. Chronic Kidney Disease Stage 4 Glomerular Filtration Rate 15-29 (HCC) (Primary Dx) 06/15/2023 3:20 PM ASSISTANT PROFESSOR OF BIOCHEMISTRY - 06/15/2023 11:59 PM ASSISTANT PROFESSOR OF BIOCHEMISTRY Hospital Encounter Department of Laboratory Medicine and Pathology, [facility], in [address] [address] Sera Casiano M.D., Ph.D. Chronic Kidney Disease Stage 5 Glomerular Filtration Rate Less Than 15 (HCC) Discharge Disposition: Home or Self Care 06/15/2023 2:45 PM ASSISTANT PROFESSOR OF BIOCHEMISTRY Office Visit Department of Ophthalmology in [place], [place] [address] [place] [address] Justin Bunch M.D. 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 Sandeep Galicia, R.N. Chronic Kidney Disease Stage 5 Glomerular Filtration Rate Less Than 15 (HCC) 06/15/2023 Orders Only Department of Ophthalmology in [place], [place] [address] [place] [phone] Bailey Campo C.O.A. 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 06/15/2023 Orders Only Division of Nephrology and Hypertension in [place], [place] [address] [place] [phone] Sera Casiano M.D., Ph.D. Chronic Kidney Disease Stage 5 Glomerular Filtration Rate Less Than 15 (HCC) (Primary Dx) 06/15/2023 Ancillary Procedure Department of Ophthalmology 06/15/2023 Orders Only Division of Nephrology and Hypertension in [place], [place] [address] [place] [phone] Sera Casiano M.D., Ph.D. Chronic Kidney Disease Stage 5 Glomerular Filtration Rate Less Than 15 (HCC) (Primary Dx) 06/12/2023 10:50 AM ASSISTANT PROFESSOR OF BIOCHEMISTRY - 06/12/2023 11:59 PM ASSISTANT PROFESSOR OF BIOCHEMISTRY Hospital Encounter Department of Laboratory Medicine in [address] [place] [address] Mónica Portillo APRN, C.N.P., M.S. Hypertension And Chronic Kidney Disease Stage 5 (HCC); Proteinuria; 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; Acute Metabolic Acidosis; Hyperphosphatemia; Hypocalcemia; Anemia Of Chronic Renal Disease Discharge Disposition: Home or Self Care from [...] Influenza, Unspecified 03/10/2016,03/08/2015, PCV13 03/08/2015 PPSV23 02/11/2019,03/01/2009,02/16/1996 RSV: respiratory syncytial v irus (AREXVY) recombinant [...] suicide in 1955 Anesthesia problems Mother Nora Hargrovetad ponv Cancer Mother Nora Hargrovetad colon Colon cancer Mother Nora Sanchez Had it for 7 to 8 yrs prior to Depression Mother Nora Hargorvetad Hypertension Mother Nora Hargrovetad Obesity Mother Nora Hargrovetad Rectal cancer Mother Nora Hargrovetad Stroke Paternal Grandfather Zurdo sanchez in March 1960 Cancer Sister Kristin Ruizemmanuelle colon Colon cancer Sister Kristin Sanchez A survivor, lance gnosed March 2005 Depression Sister Pat Jorstad Hypertension Sister Kristin Hargrovetad Obesity Sister Pat Delvintad Sleep apnea Sister Pat Delvintad Heart disease Neg Hx Relation Name Status [...] e alcohol) Maybe one drink per month [facility] Utilities Answer Date Recorded In the past 12 months has e [place], gas, oil, or water Client Outlook threatened to shut off services in your [...] Answer Date Recorded PHQ-2 Score 2 05/28/2023 [facility] [place] [facility] of Occupat ional [facility] - Occupational Stress Questionnaire [...] your living situation today? I have a [facility] place to live 08/28/2023 Education Answer Date Recorded What is the highest level of school you have completed or the highest degree you have received? Professional school degree (e.g., MD, DDS, DVM, NACHO) 10/10/2020 Sex and Gender Information Value Date Recorded Sex Assigned at Male 05/13/2021 10:11 AM ASSISTANT PROFESSOR OF BIOCHEMISTRY Gender Identity Male 11/02/2017 7:22 PM CDT Sexual Orientation Straight 11/02/2017 7: 22 PM CDT Last Filed Vital Signs Vital Sign Reading Time Taken Comments Blood Pressure 112/64 08/28/2023 4:16 PM CDT Pulse 52 08/28/2023 4:16 PM CDT Temperature 36.7 ??C (98.1 ??F) 04/07/2023 2:34 PM CS T Respiratory Rate 17 04/07/2023 2:34 PM ASSISTANT PROFESSOR OF BIOCHEMISTRY Oxygen Saturation 93% 08/28/2023 3:24 PM CDT Inhaled Oxygen Concentration - - Weight 148 kg (326 lb 8 oz) 08/28/2023 3:24 PM C DT Height 176.9 cm (5' 9.65) 07/10/2023 1:33 PM CD T Body Mass Index 47.33 07/10/2023 1:33 PM CDT Plan of Treatment Upcoming Encounters Date Type Department Care Team (Latest Contact Info) Description 09/08/2023 10:00 AM CDT Appointment Department of Laboratory Medicine in [place], [place] [address] [place] [phone] Sera Casiano M.D., Ph.D. 200 [place] [address] 09/08/2023 10:10 AM CDT Appointment Department of Laboratory Medicine in [place], [place] [address] [place] [address] Sera Casiano M.D., Ph.D. [address] [place] [phone] 09/08/2023 2:00 PM CDT Virtual Visit Department of Family Medicine, [facility], in [address] [phone] Clover Macias M.D. [address] [place] [phone] Discharge Disposition: Home or Self Care 09/10/2023 10:45 AM CDT Clinical Communication Virtual Review in [place], [place] 200 [place] [address] 09/10/2023 2:30 PM CDT Ancillary Procedure Department of Cardiovascular Diseases in [address] [address] Clover Macias M.D. [address] [place] [phone] Discharge Disposition: Home or Self Care 09/14/2023 9:30 AM CDT Comprehensive Visit Division of Pulmonary Medicine in [place], [place] [address] [place] [phone] Luis Carrion M.B.B.S. [address] [place] [phone] 10/01/2023 9:30 AM CDT Comprehensive Visit Department of Cardiovascular Diseases in [address] [phone] Nikko Dey M.D. [address] [place] [phone] Discharge Disposition: Home or Self Care 10/27/2023 2:25 PM CDT Appointment Department of Cardiovascular Diseases in [place], [place] [address] [place] [address] Clover Macias M.D. 701 [place] [phone] Discharge Disposition: Home or Self Care Health Maintenance Due Date Last Done Comments [...] 09/29/2023 03/30/2023, 05/28, 03/31/2022, Additional history exists Dilated Eye Exam 06/15/2024 06/15/2023, 01/2023, 01/19/2023, Additional history exists Urine Albumin 07/05/2024 07/06/2023, 1207/2022, 09/01/2022, Additional history exists Creatinine Level (Kidney Fun ction Test) 08/19/2024 08/20/2023, 07/29/2023, 07/06/2023, Additional history exists Potassium Level 08/19/2024 08/20/2023, 04/0 06/2023, 07/06/2023, Additional history exists Sodium Level 08/19/2024 08/20/2023, 04/0 06/2023, 07/06/2023, Additional history exists Office Visit for Blood Press ure Check / Re-check 08/27/2024 08/28/2023, 07/23/2023, 07/23/2023 Visit: Chronic Disease, age 18+ 08/27/2024 , 08/28/2023 DTaP,Tdap,and Td Vaccines (4 - Td or [...] Procedure Name Priority Date/Time Associated Diagnosis Comments ECG Routine 08/28/2023 4:11 PM CDT Atrial Fibrillation Unspecified (HCC) DX CHEST AP OR PA AND LATERAL 2 VIEWS RAD - Routine (most inpatients and all outpatients) 08/20/2023 3:39 PM CDT Atrial Fibrillation Unspecified (HCC) Hypertensive Chronic Kidney Disease With Stage 5 Chronic Kidney Disease Or End Stage Renal Disease, Chronic Kidney Disease Stage 5 (HCC) ECG Routine 08/20/2023 3:30 PM CDT Atrial Fibrillation Unspecified (HCC) Hypertensive Chronic Kidney Disease With Stage 5 Chronic Kidney Disease Or End Stage Renal Disease, Chronic Kidney Disease Stage 5 (HCC) MAGNESIUM, S Routine 08/20/2023 3:17 PM CDT Atrial Fibrillation Unspecified (HCC) Hypertensive Chronic Kidney Disease With Stage 5 Chronic Kidney Disease Or End Stage Renal Disease, Chronic Kidney Disease Stage 5 (HCC) THYROID FUNCTION CASCADE, S Routine 08/20/2023 3:17 PM CDT Atrial Fibrillation Unspecified (HCC) Hypertensive Chronic Kidney Disease With Stage 5 Chronic Kidney Disease Or End Stage Renal Disease, Chronic Kidney Disease Stage 5 (HCC) COMPREHENSIVE METABOLIC PANEL, S/P Routine 08/20/2023 3:17 PM CDT Atrial Fibrillation Unspecified (HCC) Hypertensive Chronic Kidney Disease With Stage 5 Chronic Kidney Disease Or End Stage Renal Disease, Chronic Kidney Disease Stage 5 (HCC) CBC WITHOUT DIFFERENTIAL, B Routine 08/20/2023 3:17 PM CDT Atrial Fibrillation Unspecified (HCC) Hypertensive Chronic Kidney Disease With Stage 5 Chronic Kidney Disease Or End Stage Renal Disease, Chronic Kidney Disease Stage 5 (HCC) US UPPER EXTREMITY BILATERAL DIALYSIS MAPPING RAD [...] Erythropoietin FERRITIN, S Routine 06/29/2023 12:11 PM ASSISTANT PROFESSOR OF BIOCHEMISTRY 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 IRON AND TOT IRON-BINDING CAPACITY, S/P Routine 06/29/2023 12:11 PM ASSISTANT PROFESSOR OF BIOCHEMISTRY 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 RENAL FUNCTION PANEL, S Routine 06/29/2023 12:11 PM ASSISTANT PROFESSOR OF BIOCHEMISTRY Hyperkalemia QUANTIFERON-TB GOLD PLUS, B Routine 06/15/2023 4:07 PM ASSISTANT PROFESSOR OF BIOCHEMISTRY Chronic Kidney Disease Stage 5 Glomerular Filtration Rate Less Than 15 (HCC) BASIC METABOLIC PANEL, S/P Routine 06/15/2023 4:06 PM ASSISTANT PROFESSOR OF BIOCHEMISTRY Chronic Kidney Disease Stage 5 Glomerular Filtration Rate Less Than 15 (HCC) HEPATITIS B SURFACE ANTIGEN Routine 06/15/2023 4:06 PM ASSISTANT PROFESSOR OF BIOCHEMISTRY Chronic Kidney Disease Stage 5 Glomerular Filtration Rate Less Than 15 (HCC) HCV AB W/REFLEX TO HCV PCR, S Routine 06/15/2023 4:06 PM ASSISTANT PROFESSOR OF BIOCHEMISTRY Chronic Kidney Disease Stage 5 Glomerular Filtration Rate Less Than 15 (HCC) HBC TOTAL AB, SERUM Routine 06/15/2023 4 :06 PM ASSISTANT PROFESSOR OF BIOCHEMISTRY Chronic Kidney Disease Stage 5 Glomerular Filtration Rate Less Than 15 (HCC) HBS ANTIBODY, SERUM Routine 06/15/2023 4 :06 PM ASSISTANT PROFESSOR OF BIOCHEMISTRY Chronic Kidney Disease Stage 5 Glomerular Filtration Rate Less Than 15 (HCC) OPTICAL COHERENCE TOMOGRAPHY - MACULA/RETINA - OU - BOTH EYES Routine 06/15/2023 2:26 PM ASSISTANT PROFESSOR OF BIOCHEMISTRY 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) OPHTHALMOLOGY IMAGE EXAM Routine 06/15/2023 12:00 AM ASSISTANT PROFESSOR OF BIOCHEMISTRY CBC WITH DIFFERENTIAL, B Routine 06/12/2023 10:53 AM ASSISTANT PROFESSOR OF BIOCHEMISTRY Anemia Of Chronic Renal Disease FOLATE, S Routine 06/12/2023 10:53 AM ASSISTANT PROFESSOR OF BIOCHEMISTRY Hypertension And Chronic Kidney Disease Stage 5 (HCC) Proteinuria 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 Acute Metabolic Acidosis Hyperphosphatemia Hypocalcemia VITAMIN B12 ASSAY, S Routine 06/12/2023 10:53 AM ASSISTANT PROFESSOR OF BIOCHEMISTRY Hypertension And Chronic Kidney Disease Stage 5 (HCC) Proteinuria 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 Acute Metabolic Acidosis Hyperphosphatemia Hypocalcemia COLONOSCOPY Routine 04/07/2023 1:48 PM ASSISTANT PROFESSOR OF BIOCHEMISTRY Cancer Colon Transverse Personal History HEMOGLOBIN A1C, B Routine 03/30/2023 12:21 PM ASSISTANT PROFESSOR OF BIOCHEMISTRY Hypertension And Chronic Kidney Disease Stage 5 (HCC) Anemia Of Chronic Renal Disease US AORTA AAA SCREENING RAD - Routine (most inpatients and all outpatients) 07/22/2017 7:39 AM CDT Maintenance Health Adult from Last 3 Months or Most Recently Relevant to Health Maintenance Results * ECG 12 Lead (08/28/2023 4:11 PM CDT) Only the most recent of2 resultswithin the time period is included. Ventricular Rate ECG/Min 43 BPM MUSE QRSD Interval 104 ms MUSE QT Interval 490 ms MUSE QTC Interval 414 ms MUSE R [place] -12 degrees MUSE T Wave [place] 95 degrees MUSE 08/28/2023 4:11 PM CDT 08/28/2023 4:15 PM CDT Impressions MUSE - 08/28/2023 4:15 PM CDT Atrial fibrillation with slow ventricular response Minimal voltage criteria for LVH, may be normal variant Nonspecific ST and T wave abnormality When compared with ECG of 20-Aug-2023 15:30, T wave inversion no longer evident in Lateral leads Reviewed by SHANITA Brennan Narrative Procedure Note Luis Armando Wilkins M.D. - 08/28/2023 IMPRESSION: Atrial fibrillation with slow ventricular response Minimal voltage criteria for LVH, may be normal variant Nonspecific ST and T wave abnormality When compared with ECG of 20-Aug-2023 15:30, T wave inversion no longer evident in Lateral leads Reviewed by SHANITA Brennan Clover Macias M.D. ECG ORDERABLES MUSE NA * DX Chest AP or PA and Lateral 2 Views (08/20/2023 3:39 PM CDT) Anatomical Region Laterality Modality Chest, Thoracic RST LOS, Tho racic ARZ LOS, Thoracic FLA LOS N/A Digital Radiography Impressions 08/20/2023 4:12 PM CDT Calcified pleural plaques right lung base. Nothing for pneumonia, pulmonary edema, pleural effusion, or pneumothorax. Heart is normal in size. Stable mediastinal contours. Comparison 04/30/2018. Narrative 08/20/2023 4:12 PM CDT EXAM: DX CHEST AP OR PA AND LATERAL 2 VIEWS Procedure Note Gisela Beltre M.D. - 08/20/2023 EXAM: DX CHEST AP OR PA AND LATERAL 2 VIEWS IMPRESSION: Calcified pleural plaques right lung base. Nothing for pneumonia,pulmonary edema, pleural effusion, or pneumothorax. Heart is normal insize. Stable mediastinal contours. Comparison 04/30/2018. Clover Macias M.D. IMG DIAGNOSTIC IMAG ING PROCEDURES * Thyroid Function [place] (08/20/2023 3:17 PM CDT) Pathologist [facility] TSH, Sensitive 2.7 0.3 - 4.2 mIU/L 08/20/2023 8:07 PM CDT [facility] Blood (Blood, Venous) 08/20/2023 3:17 PM CDT 08/20/2023 7:01 PM CDT Clover Macias M.D. LAB BLOOD ADD-ON [facility] [address] [facility] [place] [address], [facility] R[facility] [place] [address] [place] [address] * (ABNORMAL) CBC without Differential (08/20/2023 3:17 PM CDT) Pathologist [facility] Hemoglobin 8.5(L) 13.2 - 16.6 g/dL 08/20/2023 7:32 PM CDT [facility] Hematocrit 26.5(L) 38.3 - 48.6 % 08/20/2023 7:32 PM CDT [facility] Erythrocytes 2.76(L) 4.35 - 5.65 x10(12)/L 08/20/2023 7:32 PM CDT [facility] MCV 96.0 78.2 - 97.9 fL 08/20/2023 7:32 PM CDT [facility] RBC Distrib Width 15.0(H) 11.8 - 14.5 % 08/20/2023 7:32 PM CDT [facility] Platelet Count 146 135 - 317 x10(9)/L 08/20/2023 7:32 PM CDT [facility] Leukocytes 8.5 3.4 - 9.6 x10(9)/L 08/20/2023 7:32 PM CDT [facility] Blood (Blood, Venous) 08/20/2023 3:17 PM CDT 08/20/2023 7:01 PM CDT Clover Macias M.D. LAB BLOOD ADD-ON Performing Organization Address City/[facility]/ZIP Co de Phone Number [facility] [address] [facility] [place] [address], [facility] RDWG [facility] [place] [address] * Magnesium (08/20/2023 3:17 PM CDT) Magnesium, P 2.0 1.7 - 2.3 mg/dL 08/20/2023 7:37 PM CDT [facility] Blood (Blood, Venous) 08/20/2023 3:17 PM CDT 08/20/2023 7:00 PM CDT Clover Macias M.D. LAB BLOOD ADD-ON Performing Organization Address [facility] Co de Phone Number [facility] [address] [facility] [place] [address], [facility] RDWG [facility] [place] [address] [place] [address] * (ABNORMAL) Comprehensive Metabolic Panel (08/20/2023 3:17 PM CDT) Only the most recent of2 resultswithin the time period is included. Potassium, P 4.0 3.6 - 5.2 mmol/L 08/20/2023 7:37 PM CDT [facility] Sodium, P 135 135 - 145 mmol/L 08/20/2023 7:37 PM CDT [facility] Chloride, P 95(L) 98 - 107 mmol/L 08/20/2023 7:37 PM CDT [facility] Bicarbonate, P 27 22 - 29 mmol/L 08/20/2023 7:37 PM CDT [facility] Anion Gap, P 13 7 - 15 08/20/2023 7:37 PM CDT [facility] BUN (Blood Urea Nitrogen), P 72(H) 8 - 24 mg/dL 08/20/2023 7:37 PM CDT [facility] Creatinine 4.69(H) 0.74 - 1.35 mg/dL 08/20/2023 7:37 PM CDT [facility] Estimated GFR (eGFR) <15(L) >=60 mL/min/BS A 08/20/2023 7:37 PM CDT [facility] Comment: Estimated GFR calculated using the 2020 CKD_EPI creatinine equation. Calcium, Total, P 8.3(L) 8.8 - 10.2 mg/dL 08/20/2023 7:37 PM CDT [facility] Glucose, P 344(H) 70 - 140 mg/dL 08/20/2023 7:37 PM CDT [facility] Protein, Total, P 6.0(L) 6.3 - 7.9 g/dL 08/20/2023 7:37 PM CDT [facility] Albumin, P 3.8 3.5 - 5.0 g/dL 08/20/2023 7:37 PM CDT [facility] Aspartate Aminotransferase (AST), P 15 8 - 48 U/L 08/20/2023 7:37 PM CDT [facility] Alkaline Phosphatase, P 89 40 - 129 U/L 08/20/2023 7:37 PM CDT [facility] Alanine Aminotransferase (ALT), P 14 7 - 55 U/L 08/20/2023 7:37 PM CDT [facility] Bilirubin, Total, P 0.6 0.0 - 1.2 mg/dL 08/20/2023 7:37 PM CDT [facility] Blood (Blood, Venous) 08/20/2023 3:17 PM CDT 08/20/2023 7:00 PM CDT Clover Macias M.D. LAB BLOOD ADD-ON [facility] [address] [address], [facility] RDWG [facility] [place] [address] [phone] * US Upper Extremity Bilateral Dialysis Mapping [...] the upper pole of the left kidney (). Hypertrophic changes in the spine. Mild degenerative [...] LAB UR INE ORDERABLES Performing Organization Address [facility] Co de Phone Number [facility] [address] 200 [place] [address] * (ABNORMAL) Microscopic Manual (07/29/2023 10:27 AM [...] LAB UR INE ORDERABLES Performing Organization Address City/[facility]/ZIP Co de Phone Number [facility] [address] [place] [address] * pH, Urine (07/29/2023 10:27 AM CDT) pH, U 6.2 4.5 - 8.0 07/29/2023 11: 02 AM CDT DTL Urine 07/29/2023 10:2 7 AM CDT 07/29/2023 10:35 AM CDT Sera Hyman M.D., Ph.D. LAB UR INE ORDERABLES Performing Organization Address City/[facility] Co de Phone Number [facility] [address] [place] [address] * Osmolality, Urine (07/29/2023 10:27 AM CDT) Osmolality, U 323 150 - 1150 mOsm/kg 07/29/2023 11:02 AM CDT DTL Urine 07/29/2023 10:2 7 AM CDT 07/29/2023 10:35 AM CDT Sera Hyman M.D., Ph.D. LAB UR INE ORDERABLES Performing Organization Address City/[facility] Co de Phone Number [facility] [address] [place] [address] * (ABNORMAL) Urinalysis, with Microscopic: Urine, Midstream (07/29/2023 10:27 AM CDT) Only the most recent of2 resultswithin the time period is included. Source [...] 07/29/2023 11:44 AM CDT DTL Predicted Range 2563-32482 mg/24 h 07/29/2023 11:44 AM CDT DTL Comment Micro done on <10 mL 07/29/2023 1:01 PM CDT DTL Urine (Urine, Midstream) 07/29/2023 10:27 AM CDT 07/29/2023 10:35 AM CDT Sera Hyman M.D., Ph.D. LAB UR INE ORDERABLES Performing Organization Address City/[facility]/ZIP Co de Phone Number [facility] [address] [place] [address], [facility] [address] [place] [address] * ANCA (Antineutrophil Cytoplasmic Antibodies) Vasculitis Panel (07/29/2023 10:17 AM CDT) Pathologist [facility] Myeloperoxidase Ab, S <0.2 <0.4 (Negative ) U 07/29/2023 4:45 PM CDT SDSC Proteinase 3 Ab (PR3), S <0.2 <0.4 (Negative ) U 07/29/2023 4:45 PM CDT [facility] Blood (Blood, Venous) 07/29/2023 10:17 AM CDT 07/29/2023 2:52 PM CDT Sera Hyman M.D., Ph.D. LAB BL OOD ADD-ON [facility] [address] [place] [address] [facility] [address] [place] [address] * (ABNORMAL) CBC with Differential, Blood (07/29/2023 [...] - 6.45 x10(9)/L 07/29/2023 11:03 AM CDT PM Lymphocytes 0.49(L) 0.95 - 3.07 x10(9)/L 07/29/2023 [...] M.D., Ph.D. LAB BL OOD ADD-ON [facility] [address] [place] [address], [facility] DTL [facility] [address] [place] [address] [facility] [address] [place] [address] * CRP (C-Reactive Protein) (07/29/2023 10:17 AM CDT) C-Reactive Protein (CRP), S <3.0 <5.0 mg/L 07/29/2023 12:32 PM CDT DTL Blood (Blood, Venous) 07/29/2023 10:17 AM CDT 07/29/2023 10:55 AM CDT Sera Hyman M.D., Ph.D. LAB BL OOD ADD-ON Performing Organization Address City/[facility]/ZIP Co de Phone Number [facility] [address] [place] [address] * (ABNORMAL) Uric Acid (07/29/2023 10:17 AM CDT) Only the most recent of2 resultswithin the time period is included. Uric Acid, S 11.2(H) 3.7 - 8.0 mg/dL 07/29/2023 12:32 PM CDT DTL Blood (Blood, Venous) 07/29/2023 10:17 AM CDT 07/29/2023 10:55 AM CDT Sera Hyman M.D., Ph.D. LAB BL OOD ADD-ON Performing Organization Address [facility] Co de Phone Number [facility] 200 [place] [address], [facility] 200 [place] [address] * Phosphorus Inorganic (07/29/2023 10:17 AM CDT) Phosphorus (Inorganic), S 4.5 2.5 - 4.5 mg/dL 07/29/2023 12:32 PM CDT DTL Blood (Blood, Venous) 07/29/2023 10:17 AM CDT 07/29/2023 10:55 AM CDT Sera Hyman M.D., Ph.D. LAB BL OOD ADD-ON Performing Organization Address City/[facility]/ZIP Co de Phone Number [facility] 200 [place] [address], [facility] 200 [place] [address] * (ABNORMAL) Glucose, Fasting (07/29/2023 10:17 AM CDT) Pathologist [facility] Glucose, P 256(H) 70 - 100 mg/dL 07/29/2023 11:15 AM CDT DTL Last Intake 16 hr 07/29/2023 10:52 AM CDT DTL Blood (Blood, Venous) 07/29/2023 10:17 AM CDT 07/29/2023 10:52 AM CDT Sera Hyman M.D., Ph.D. LAB BL OOD NON ADD-ON [facility] 200 [place] [address], [facility] 200 [place] [address] * Pulmonary Function Tests (07/29/2023 9:02 AM CDT) [facility] FVC 2.15 L 07/29/2023 10:32 AM CDT [facility] FEV1 1.56 L 07/29/2023 10:32 AM CDT [facility] FEV1/FVC 72.56 % 07/29/2023 10:32 AM CDT [facility] UPX90-41% 1.03 L/s 07/29/2023 10:32 AM CDT [facility] PEF PRE 5.91 L/s 07/29/2023 10:32 AM CDT [facility] PIF PRE 3.35 L/s 07/29/2023 10:32 AM CDT [facility] FEF 50 % FIF 50 PRE 54.00 % 07/29/2023 10:32 AM CDT [facility] FET PRE 9.49 sec 07/29/2023 10:32 AM CDT [facility] DLCO 10.65 ml/(min*mm Hg) 07/29/2023 10:32 AM CDT [facility] DLCOc 14.91 ml/(min*mm Hg) 07/29/2023 10:32 AM CDT [facility] HB 7.40 g(Hb)/dL 07/29/2023 10:32 AM CDT [facility] VA 4.05 L 07/29/2023 10:32 AM CDT [facility] PulseRest 50.00 1/min 07/29/2023 10:32 AM CDT [facility] TLC 4.43 L 07/29/2023 10:32 AM CDT [facility] FRCPLETH PROVBASE 2.72 L 07/29/2023 10:32 AM CDT [facility] RV 1.96 L 07/29/2023 10:32 AM CDT [facility] RV % TLC PRE 44.12 % 07/29/2023 10:32 AM CDT [facility] 07/29/2023 9:02 AM CDT Impressions [facility] - 07/29/2023 10:32 AM CDT Abnormal [...] Sera Hyman M.D., Ph.D. PFT OR DERABLES [facility] NA * (ABNORMAL) Renal Function Panel [...] Hyman M.D., Ph.D. LAB BL OOD ADD-ON [facility] [address] [address], [facility] RDWG [facility] [place] [address] [phone] * (ABNORMAL) Cystatin C with Estimated GFR [...] M.D., Ph.D. LAB BL OOD ADD-ON [facility] [address] [place] [address], [facility] 200 [place] [address] * (ABNORMAL) Iron and Total Iron-Binding Capacity (07/06/2023 9:22 AM CDT) Only the most recent of2 resultswithin the time period is included. Pathologist [facility] Iron 52 50 - 150 mcg/dL 07/06/2023 12:48 PM CDT [facility] Total Iron Binding Capacity 222(L) 250 - 400 mcg/dL 07/06/2023 12:48 PM CDT [facility] Percent Saturation 23 14 - 50 % 07/06/2023 12:48 PM CDT [facility] Blood (Blood, Venous) 07/06/2023 9:22 AM CDT 07/06/2023 11:51 AM CDT Sera Hyman M.D., Ph.D. LAB BL OOD ADD-ON Performing Organization Address [facility] Co de Phone Number [facility] [address] [place] [address], [facility] RDWG [facility] [place] [address] [place] [address] * (ABNORMAL) Albumin, Random, Urine (07/06/2023 9:22 AM CDT) Microalbumin 2309.6 mg/L 07/06/2023 1:30 PM CDT [facility] Creatinine 69 mg/dL 07/06/2023 12:51 PM CDT [facility] Albumin/Creatinin e Ratio 3347(H) <17 mg/g 07/06/2023 1:30 PM CDT [facility] Urine (Urine, Voided) 07/06/2023 9:22 AM CDT 07/06/2023 11:59 AM CDT Sera Hyman M.D., Ph.D. LAB UR INE ORDERABLES Performing Organization Address [facility] Co de Phone Number [facility] [address] [place] [address], [facility] RDW[facility] in [address] [address] * (ABNORMAL) Protein/Creatinine Ratio, Random, Urine (07/06/2023 [...] LAB UR INE ORDERABLES Performing Organization Address City/[facility]/ZIP Co de Phone Number [facility] [address] [place] [place] [address], [facility] [place] [address] [address] * (ABNORMAL) Ferritin (07/06/2023 9:22 AM CDT) Only the most recent of2 resultswithin the time period is included. Pathologist [facility] Ferritin, S 457(H) 31 - 409 mcg/L 07/06/2023 12:57 PM CDT RDW Comment: Biotin has been identified by the lab systems analyst as a potential interfering substance. Higher concentrations [...] LAB BL OOD ADD-ON Performing Organization Address City/[facility] Co de Phone Number [facility] [address] [place] [address], [facility] [place] [address] [place] [phone] * QuantiFERON-Tb Gold Plus, Blood (06/15/2023 4:07 PM ASSISTANT PROFESSOR OF BIOCHEMISTRY) [facility] QuantiFERON-TB Gold Plus Result Negative Negative 06/16/2023 12:08 PM ASSISTANT PROFESSOR OF BIOCHEMISTRY [facility] Comment: No interferon-gamma response to M. [...] Nil Result 0.02 IU/mL 06/16/2023 12:08 PM ASSISTANT PROFESSOR OF BIOCHEMISTRY [facility] TB2 Ag minus Nil Result 0.01 IU/mL 06/16/2023 12:08 PM ASSISTANT PROFESSOR OF BIOCHEMISTRY [facility] Mitogen minus Nil Result 3.42 IU/mL 06/16/2023 12:08 PM ASSISTANT PROFESSOR OF BIOCHEMISTRY SDSC Nil Result 0.04 IU/mL 06/16/2023 12:08 PM ASSISTANT PROFESSOR OF BIOCHEMISTRY [facility] Blood (Blood, Venous) 06/15/2023 4:07 PM ASSISTANT PROFESSOR OF BIOCHEMISTRY 06/15/2023 5:59 PM ASSISTANT PROFESSOR OF BIOCHEMISTRY Narrative [facility] - 06/16/2023 12:08 PM ASSISTANT PROFESSOR OF BIOCHEMISTRY Specimen Information: Specimen ID: [id number] Specimen Type: Blood Specimen Collection Start Date: 06/15/2023 ??4:07 PM Specimen Received Date: 06/15/2023 ??5:59 PM Specimen ID: [id number] Specimen Type: Blood Specimen Collection Start Date: 06/15/2023 ??4:07 PM Specimen Received Date: 06/15/2023 ??5:59 PM Specimen ID: [id number] Specimen Type: Blood Specimen Collection Start Date: 06/15/2023 ??4:07 PM Specimen Received Date: 06/15/2023 ??5:59 PM Specimen ID: [id number] Specimen Type: Blood Specimen Collection Start Date: 06/15/2023 ??4:07 PM Specimen Received Date: 06/15/2023 ??5:59 PM Sera Hyman M.D., Ph.D. LAB [place] CROBIOLOGY - BLOOD ORDERABLES [facility] [address] [place] [id number] [facility] [address] [place] [id number] * HCV Ab w/Reflex to HCV PCR, Serum (06/15/2023 4:06 PM ASSISTANT PROFESSOR OF BIOCHEMISTRY) HCV Ab, S Negative Negative 06/15/2023 10:21 PM ASSISTANT PROFESSOR OF BIOCHEMISTRY [facility] Comment:[id number] rat io is <1.00. Blood (Blood, Venous) 06/15/2023 4:06 PM ASSISTANT PROFESSOR OF BIOCHEMISTRY 06/15/2023 8:15 PM ASSISTANT PROFESSOR OF BIOCHEMISTRY Sera Hyman M.D., Ph.D. LAB [facility] BLOOD ORDERABLES Performing Organization Address City/[facility]/ZIP Co de Phone Number [facility] [address] [place] [place] [id number] [place] [address] [place] [address] * HBc Total Ab, Serum (06/15/2023 4:06 PM ASSISTANT PROFESSOR OF BIOCHEMISTRY) Pathologist [facility] HBc Total Ab, S Negative Negative 06/15/2023 10:17 PM ASSISTANT PROFESSOR OF BIOCHEMISTRY [facility] Blood (Blood, Venous) 06/15/2023 4:06 PM ASSISTANT PROFESSOR OF BIOCHEMISTRY 06/15/2023 8:15 PM ASSISTANT PROFESSOR OF BIOCHEMISTRY Sera Hyman M.D., Ph.D. LAB [facility] BLOOD ORDERABLES Performing Organization Address [facility] Co de Phone Number [facility] [address] [place] [address] [place] [address] * HBs Antibody, Serum (06/15/2023 4:06 PM ASSISTANT PROFESSOR OF BIOCHEMISTRY) HBs Antibody, S Negative 06/15/2023 10:18 PM ASSISTANT PROFESSOR OF BIOCHEMISTRY [facility] Comment: Patient is presumed to be not immune to infection with HBV. ----REFERENCE VALUE---- Unvaccinated: Negative Vaccinated: Positive HBs Antibody, Quantitative, S <5.0 mIU/mL 06/15/2023 10:18 PM ASSISTANT PROFESSOR OF BIOCHEMISTRY [facility] Comment: ----REFERENCE VALUE---- Unvaccinated: <5.0 Vaccinated: >=12.0 Blood (Blood, Venous) 06/15/2023 4:06 PM ASSISTANT PROFESSOR OF BIOCHEMISTRY 06/15/2023 8:15 PM ASSISTANT PROFESSOR OF BIOCHEMISTRY Sera Hyman M.D., Ph.D. LAB [facility] BLOOD ORDERABLES Performing Organization Address City/[facility]/ZIP Co de Phone Number [facility] [address] [place] [address] [facility] [address] [place] [address] * Hepatitis B Surface Antigen (06/15/2023 4:06 PM ASSISTANT PROFESSOR OF BIOCHEMISTRY) Pathologist [facility] HBs Antigen, S Negative Negative 06/15/2023 10:03 PM ASSISTANT PROFESSOR OF BIOCHEMISTRY [facility] Blood (Blood, Venous) 06/15/2023 4:06 PM ASSISTANT PROFESSOR OF BIOCHEMISTRY 06/15/2023 8:15 PM ASSISTANT PROFESSOR OF BIOCHEMISTRY Sera Hyman M.D., Ph.D. LAB [facility] BLOOD ORDERABLES Performing Organization Address City/[facility]/ZIP Co de Phone Number [facility] [address] [place] [address] [facility] [address] [place] [address] * (ABNORMAL) Basic Metabolic Panel (06/15/2023 4:06 PM ASSISTANT PROFESSOR OF BIOCHEMISTRY) Potassium, S 5.6(H) 3.6 - 5.2 mmol/L 06/15/2023 4:59 PM ASSISTANT PROFESSOR OF BIOCHEMISTRY DTL Sodium, S 142 135 - 145 mmol/L 06/15/2023 4:59 PM ASSISTANT PROFESSOR OF BIOCHEMISTRY DTL Chloride, S 105 98 - 107 mmol/L 06/15/2023 4:59 PM ASSISTANT PROFESSOR OF BIOCHEMISTRY DTL Bicarbonate, S 23 22 - 29 mmol/L 06/15/2023 4:59 PM ASSISTANT PROFESSOR OF BIOCHEMISTRY DTL Anion Gap 14 7 - 15 06/15/2023 4:59 PM ASSISTANT PROFESSOR OF BIOCHEMISTRY DTL BUN (Blood Urea Nitrogen), S 68(H) 8 - 24 mg/dL 06/15/2023 4:59 PM ASSISTANT PROFESSOR OF BIOCHEMISTRY DTL Creatinine 4.61(H) 0.74 - 1.35 mg/dL 06/15/2023 4:59 PM ASSISTANT PROFESSOR OF BIOCHEMISTRY DTL Estimated GFR (eGFR) <15(L) >=60 mL/min/BSA 06/15/2023 4:59 PM ASSISTANT PROFESSOR OF BIOCHEMISTRY DTL Comment: Estimated GFR calculated using the 2020 CKD_EPI creatinine equation. Calcium, Total, S 8.8 8.8 - 10.2 mg/dL 06/15/2023 4:59 PM ASSISTANT PROFESSOR OF BIOCHEMISTRY DTL Glucose, S 130 70 - 140 mg/dL 06/15/2023 4:59 PM ASSISTANT PROFESSOR OF BIOCHEMISTRY DTL Blood (Blood, Venous) 06/15/2023 4:06 PM ASSISTANT PROFESSOR OF BIOCHEMISTRY 06/15/2023 4:42 PM ASSISTANT PROFESSOR OF BIOCHEMISTRY Sera Hyman M.D., Ph.D. LAB BL OOD ADD-ON Performing Organization Address [facility] de Phone Number [address] [address], [facility] [place] [address] * Optical Coherence Tomography - Macula/Retina - OU - Both Eyes (06/15/2023 2:26 PM ASSISTANT PROFESSOR OF BIOCHEMISTRY) Narrative OPHTHALMOLOGY IMAGING EXAM - 06/15/2023 3:45 PM ASSISTANT PROFESSOR OF BIOCHEMISTRY Right Eye Reliability was good. OCT device used was Spectralis . Left Eye It was a technically difficult scan. OCT device used was Spectralis . Notes FREDY/JH See interpretation in note section Justin Bunch M.D. OPHTH TOMOGRAPHY Performing Organization Address [facility] de Phone Number OPHTHALMOLOGY IMAGING EXAM * Eyes Spectralis OCT-Ophthalmology Image Exam (06/15/2023 12:00 AM ASSISTANT PROFESSOR OF BIOCHEMISTRY) Narrative IIMS - 06/15/2023 2:28 PM ASSISTANT PROFESSOR OF BIOCHEMISTRY This order has been created and auto-finalized to support the import of images acquired without order. The clinical documentation to support these images can be found on the encounter that produced images. Provider Not In System IMG NON RAD IMAGI NG PROCEDURES Performing Organization Address [facility] de Phone Number IIMS NA * Folate (06/12/2023 10:53 AM ASSISTANT PROFESSOR OF BIOCHEMISTRY) Folate, S 12.6 >=4.0 mcg/L 06/13/2023 2:09 AM ASSISTANT PROFESSOR OF BIOCHEMISTRY ECLR Comment: Biotin has been identified by the lab systems analyst as a potential interfering substance. Higher concentrations of biotin may be found in multivitamins, hair/nail supplements, and workout supplements. If the result does not match clinical observations, repeat testing after patient refrains from the use of supplements for at least 12 hours. Blood (Blood, Venous) 06/12/2023 10:53 AM ASSISTANT PROFESSOR OF BIOCHEMISTRY 06/12/2023 9:30 PM ASSISTANT PROFESSOR OF BIOCHEMISTRY Mónica Portillo APRN, C.N.P., M.S. LAB BLOOD ADD-ON Performing Organization Address [facility] Co de Phone Number [facility] [address] [place] [id number], [facility] ECLR [address] [address] * (ABNORMAL) Vitamin B12 Assay (06/12/2023 10:53 AM ASSISTANT PROFESSOR OF BIOCHEMISTRY) Pathologist [facility] Vitamin B12 Assay, S 1249(H) 232 - 1245 ng/L 06/13/2023 2:09 AM ASSISTANT PROFESSOR OF BIOCHEMISTRY ECLR Comment: Biotin has been identified by the lab systems analyst as a potential interfering substance. Higher concentrations of biotin may be found in multivitamins, hair/nail supplements, and workout supplements. If the result does not match clinical observations, repeat testing after patient refrains from the use of supplements for at least 12 hours. Blood (Blood, Venous) 06/12/2023 10:53 AM ASSISTANT PROFESSOR OF BIOCHEMISTRY 06/12/2023 9:30 PM ASSISTANT PROFESSOR OF BIOCHEMISTRY Mónica Portillo APRN, C.N.P., M.S. LAB BLOOD ADD-ON Performing Organization Address [facility] Co de Phone Number [facility] [address] [place] [address], [facility] ECLR [address] [address] * (ABNORMAL) Hemoglobin A1c (03/30/2023 12:21 PM ASSISTANT PROFESSOR OF BIOCHEMISTRY) Hemoglobin A1c, B 6.8(H) 4.2 - 5.6 % 03/30/2023 12:36 PM ASSISTANT PROFESSOR OF BIOCHEMISTRY CNFL Comment: Hemoglobin A1c values greater than or equal to 6.5 percent are diagnostic for diabetes mellitus. ??Diagnosis should be confirmed by repeat testing. ??In diabetic patients, HbA1c goals should be discussed with healthcare provider. Blood (Blood, Venous) 03/30/2023 12:21 PM ASSISTANT PROFESSOR OF BIOCHEMISTRY 03/30/2023 12:23 PM ASSISTANT PROFESSOR OF BIOCHEMISTRY Drew Couch APRNN.P., M.S. LAB BLOOD ADD-ON Performing Organization Address City/State/[facility] Co de Phone Number [facility] [place] [address], [facility] CNFL [place] [address] * US Aorta AAA Screening (07/22/2017 7:39 [...] andvisualized common iliac arteries are nonaneurysmal. Clover Macias M.D. IMG US PROCEDURES from Last 3 Months or Most Recently Relevant to Health Maintenance Advance Directives For more information, please contact: [phone] Documents on File Type Date Recorded Patient Health Center Assistant Expl anation Advance Directives 12/22/2017 11:40 AM a [facility] Care Directive * Full Code (Latest [...] Agents on File Name Relationship Healthcare Agent [facility] p Communication Sayra Amanda Spouse Health Care Agent Kathie Sil[place]ira Daughter First Alternate Health Care Agent Monica Boggs Daughter First Alternate Health Care Agent Care Teams Litigation Attorney Relationship Specialty Start Date End Date Clover Macias M.D. [address] [place] [id number] PCP - General Internal Medicine 11/23/17
--- OUTSIDE RECORDS SUMMARY | 2023-09-06 06:14 | XMS_ITS | Referral Summary ---
Author Name Unknown Organization [facility] Address [address] [place] [address] Care Team Providers Care Doctorate Of Chiropractic Name Role Phone Clover Macias M.D. Primary Care Provider [phone] Source Comments Patient records contain information from all sites at [facility]. For routine questions regarding patient records, call [phone] during business hours, M-F 8:00 AM - 5:00 PM Central Time. Record requests for emergency care only can be directed to [phone] at any time.[facility] Encounters Date Type Department Care Team Description 09/05/2023 Refill Department of Ophthalmology in [place], [place] [address] [place] [address] Jon Juarez M.D. Med Refill 09/01/2023 Clinical Communication Department of Community Internal Medicine in [place] [address] [place] [phone] Clover Macias M.D. 08/28/2023 Refill Department of Community Internal Medicine in [place] [address] [place] [phone] Clover Macias M.D. Med Refill 08/28/2023 3:30 PM CDT Office Visit Department of Community Internal Medicine in [place] [place] [address] Clover Macias M.D. Follow Up Exam (Primary [...] History Discharge Disposition: Home or Self Care 08/27/2023 Refill Division of Nephrology and Hypertension in [place], [place] [address] [place] [address] Mónica Portillo APRN, C.N.P., M.S. Med Refill 08/25/2023 Clinical Communication Division of Nephrology and Hypertension in [place], [place] [address] [place] [address] Sera Casiano M.D., Ph.D. infusion orders 08/25/2023 Refill Department of Ophthalmology in [place], [place] [address] [place] [address] Jon Juarez M.D. Med Refill 08/22/2023 Nurse Triage Department of Community Internal Medicine in [address] [place] [address] Savanah Gibson M.S.N., R.N. Hyperglycemia 08/21/2023 Orders Only Division of Endocrinology in [place], [place] [address] [place] [address] Cammy Silva M.D. 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 Med Refill 08/20/2023 3:08 PM CDT - 08/20/2023 11:59 PM CDT Hospital Encounter Department of Radiology in [place] [address] [place] [phone] Clover Macias M.D. Atrial Fibrillation Unspecified (HCC); Hypertensive Chronic Kidney Disease With Stage 5 Chronic Kidney Disease Or End Stage Renal Disease, Chronic Kidney Disease Stage 5 (HCC) Discharge Disposition: Home or Self Care 08/20/2023 3:07 PM CDT Hospital Encounter Department of Radiology in [place] [address] [place] [phone] Clover Macias M.D. Atrial Fibrillation Unspecified (HCC); Hypertensive Chronic Kidney Disease With Stage 5 Chronic Kidney Disease Or End Stage Renal Disease, Chronic Kidney Disease Stage 5 (HCC) Discharge Disposition: Home or Self Care 08/20/2023 3:00 PM CDT - 08/20/2023 3:06 PM CDT Hospital Encounter Department of Laboratory Medicine [place] [address] [place] [address] Clover Macias M.D. 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 08/19/2023 Orders Only Department of Community Internal Medicine in [place] [address] [place] [phone] Clover Macias M.D. Atrial Fibrillation Unspecified (HCC) (Primary Dx); Hypertensive Chronic Kidney Disease With Stage 5 Chronic Kidney Disease Or End Stage Renal Disease, Chronic Kidney Disease Stage 5 (HCC) 08/17/2023 Refill Department of [facility] Internal Medicine in [address] [place] [address] Clover Macias M.D. Med Refill 08/16/2023 Nurse Triage Department of [facility] Internal Medicine in [address] [place] [address] Philomena Raya R.N. Bradycardia; Weakness - Generalized 08/10/2023 Clinical Communication Division of Nephrology and Hypertension in [place], [place] [address] [place] [address] Kanwal Roberts RJosé LuisN. 08/05/2023 4:00 PM CDT External Outreach Division of Nephrology and Hypertension in [place], [place] [address] [place] [address] Sera Casiano M.D., Ph.D. Chronic Kidney Disease Stage 5 Glomerular Filtration Rate Less Than 15 (HCC) (Primary Dx); Preoperative Exam; Hypertensive Chronic Kidney Disease With Stage 5 Chronic Kidney Disease Or End Stage Renal Disease, Chronic Kidney Disease Stage 5 (HCC) 07/29/2023 Documentation Division of Nephrology and Hypertension in [place], [place] [address] [place] [address] Kanwal Roberts R.N. 07/29/2023 9:49 AM CDT - 07/29/2023 10:51 AM CDT Hospital Encounter Department of Laboratory Medicine and Pathology, [place], [place] [address] [place] [address] Sera Casiano M.D., Ph.D. 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 Sandeep Kuo M.D., Ph.D. Chronic Kidney Disease Stage 5 Glomerular Filtration Rate Less Than 15 (HCC) Discharge Disposition: Home or Self Care 07/29/2023 12:13 PM CDT - 07/29/2023 2:39 PM CDT Hospital Encounter Department of Radiology, [facility] in [place], [place] [address] [place] [address] Sera Casiano M.D., Ph.D. Chronic Kidney Disease Stage 5 Glomerular Filtration Rate Less Than 15 (HCC) Discharge Disposition: Home or Self Care 07/23/2023 Clinical Communication Division of Nephrology and Hypertension in [place], [place] [address] [place] [phone] Monica Ferreira, R.N., C.M.S.R.N. 07/17/2023 Orders Only Division of Nephrology and Hypertension in [place], [place] [address] [place] [phone] Sera Casiano M.D., Ph.D. 07/17/2023 1:00 PM CDT Virtual Visit Division of Nephrology and Hypertension in [place], [place] [address] [place] [phone] Sera Casinao M.D., Ph.D. Kanwal Roberts R.N. Chronic Kidney Disease Stage 5 Glomerular Filtration Rate Less Than 15 (HCC) (Primary Dx) 07/11/2023 Refill Division of Nephrology and Hypertension in [place], [place] [address] [place] [address] Mónica Portillo APRN, C.NTaylor., M.S. Med Refill 07/10/2023 1:00 PM CDT Comprehensive Visit Division of Nephrology and Hypertension in [place], [place] [address] [place] [address] Sera Casiano M.D., Ph.D. Elana Almonte, JANINAN, LD Chronic Kidney Disease Stage 5 Glomerular Filtration Rate Less Than 15 (HCC) 07/10/2023 2:30 PM CDT Nurse Only Division of Nephrology and Hypertension in [place], [place] [address] [place] [address] Sera Casiano M.D., Ph.D. Aislinn Sharma R.N. home blood pressure monitor check 07/06/2023 9:06 AM CDT - 07/06/2023 11:59 PM CDT Hospital Encounter Department of Laboratory Medicine in [place] [address] [place] [phone] Sera Casiano M.D., Ph.D. Hypertension And Chronic Kidney Disease Stage 5 (HCC); Proteinuria; 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 Discharge Disposition: Home or Self Care 07/06/2023 9:06 AM CDT - 07/06/2023 11:59 PM CDT Hospital Encounter Department of Laboratory Medicine in [place] [address] [place] [phone] Sera Casiano M.D., Ph.D. 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 06/29/2023 11:47 AM HYDROELECTRIC PLANT ELECTRICAL ENGINEER - 06/29/2023 11:59 PM HYDROELECT[employer]IC PLANT ELECTRICAL ENGINEER Hospital Encounter Department of Laboratory Medicine and Pathology, [facility] in [place], [place] [address] [place] [phone] Sera Casiano M.D., Ph.D. Hyperkalemia; 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 Discharge Disposition: Home or Self Care 06/29/2023 1:30 PM HY[employer] ELECTRICAL ENGINEER Comprehensive Visit Division of Endocrinology in [place], [place] [address] [place] [phone] Sera Casiano M.D., Ph.D. Cammy Silva M.D. Diabetes Mellitus Type 2 (HCC) (Primary Dx); Hypertension And Chronic Kidney Disease Stage 5 (HCC); Proteinuria; Insufficiency Adrenal Secondary (HCC); Morbid Obesity (HCC) 06/26/2023 3:00 PM HY[employer]OE[employer] PLANT ELECTRICAL ENGINEER Education Division of Nephrology and Hypertension in [place], [place] [address] [place] [phone] Sera Casiano M.D., Ph.D. Sandeep Galicia R.N. Chronic Kidney Disease Stage 4 Glomerular Filtration Rate 15-29 (HCC) 06/26/2023 4:00 PM HY[employer] ELECTRICAL ENGINEER Office Visit Division of Nephrology and Hypertension in [place], [place] [address] [place] [phone] Sera Casiano M.D., Ph.D. Chronic Kidney Disease Stage 5 Glomerular Filtration Rate Less Than 15 (HCC) (Primary Dx); Hyperkalemia; 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 06/26/2023 8:15 AM HY[employer]OELECT[employer]IC PLANT ELECTRICAL ENGINEER Internal E-Consult Division of Pulmonary Medicine in [place], [place] [address] [place] [phone] Louie Aleman M.D. 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 06/16/2023 Orders Only Division of Nephrology and Hypertension in [place], [place] [address] [place] [phone] Sandeep Galicia, R.N. Chronic Kidney Disease Stage 4 Glomerular Filtration Rate 15-29 (HCC) (Primary Dx) 06/15/2023 Orders Only Department of Ophthalmology in [place], [place] [address] [place] [phone] Bailey Campo, C.O.A. 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 06/15/2023 Orders Only Division of Nephrology and Hypertension in [place], [place] [address] [place] [phone] Sera Casiano M.D., Ph.D. Chronic Kidney Disease Stage 5 Glomerular Filtration Rate Less Than 15 (HCC) (Primary Dx) 06/15/2023 3:20 PM HY[employer]OE[employer] PLANT ELECTRICAL ENGINEER - 06/15/2023 11:59 PM HYDROELECTRIC PLANT ELECTRICAL ENGINEER Hospital Encounter Department of Laboratory Medicine and Pathology, [facility], in [place], [place] [address] [place] [phone] Sera Casiano M.D., Ph.D. Chronic Kidney Disease Stage 5 Glomerular Filtration Rate Less Than 15 (HCC) Discharge Disposition: Home or Self Care 06/15/2023 Ancillary Procedure Department of Ophthalmology 06/15/2023 Orders Only Division of Nephrology and Hypertension in [place], [place] [address] [place] [phone] Sera Casiano M.D., Ph.D. Chronic Kidney Disease Stage 5 Glomerular Filtration Rate Less Than 15 (HCC) (Primary Dx) 06/15/2023 1:00 PM HY[employer] ELECTRICAL ENGINEER Education Division of Nephrology and Hypertension in [place], [place] [address] [place] [phone] Sera Casiano M.D., Ph.D. Sandeep Galicia R.N. Chronic Kidney Disease Stage 5 Glomerular Filtration Rate Less Than 15 (HCC) 06/15/2023 2:30 PM HY[employer]OE[employer] ELECTRICAL ENGINEER Ancillary Procedure Department of Ophthalmology in [place], [place] [address] [place] [phone] Justin Bunch M.D. 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 Hypertension And [...] Date End Date Status miscellaneous medical supply misc CPAP Supplies See Instructions, CPAP machine, mask 1 ea x 4 refills, headgear 1 ea x 2 refills, tubing 1 ea x 4 refills, filters 2 ea per month, tub 1 ea x 2 refills, mask seal 1 ea x 2 refills DX G47.33, length of need 99, 1 each, 0 Refill(s) 7 Active miscellaneous medical supply [facility] Head Gear for CPAP Machine See Instructions, fax to patient at [phone], 1 each 4 Active MULTIVITAMIN ORAL Daily Multiple Vitamins See Instructions, Take 1 tablet by mouth daily. 4 Active ONETOUCH DELICA LANCETS 33 [facility] 3 9 Active loperamide (IMODIUM A-D) 2 [...] flash glucose sensor (FreeStyle Brionna 2 Sensor) kitIndications:Subha betes Mellitus Type 2 With Proliferative Diabetic [...] 24 Discontinued(Reo rder) FreeStyle Brionna 2 Sensor kitIndications:Subha betes Mellitus Type 2 With Proliferative Diabetic [...] Overview: Added automatically from request for surgery [id number] Cancer Colon Transverse Personal History 020 Overview: 03/2018 No evidence of metastatic disease, stable colon, diverticulosis on CT 04/09/2020 ([facility], [facility]) Repeat colonoscopy fall [address] Sewell (oncology, Fine), follow up Dr. Sewell 6-12 months with [...] of 03/2020 and determined to be benign ([facility] records). Obstructive Sleep Apnea Adult [...] Overview: Added automatically from request for surgery [id number] Hematochezia 11/09/2017 07/01/2018 Overview: Added automatically from request for surgery [id number] Diarrhea 11/09/2017 09/28/2018 Overview: S/P recurrent c diff. Tolerates 1500mg metformin per day. Cancer Colon Family History 01/19/2015 01/06/2020 Chronic Kidney Disease (CKD) , Stage 3b Glomerular Filtration Rate (GFR) 30 To 44 10/08/2009 08/28/2023 Immunizations Name Administration Dates Next Due DTaP [...] In the past 12 months has e [employer], gas, oil, or water [employer] threatened to shut off services in your [...] Answer Date Recorded PHQ-2 Score 2 05/28/2023 [facility] [place] of Occupat ional Health - Occupational Stress [...] your living situation today? I have a [facility] place to live 08/28/2023 Education Answer Date Recorded What is the highest level of school you have completed or the highest degree you have received? Professional school degree (e.g., , DDS, DVM, NACHO) 10/10/2020 Sex and Gender Information Value Date Recorded Sex Assigned at Male 05/13/2021 10:11 AM HYDROELECT[employer]IC PLANT ELECTRICAL ENGINEER Gender Identity Male 11/02/2017 7:22 PM CDT Sexual Orientation Straight 11/02/2017 7: 22 PM CDT Last Filed Vital Signs Vital Sign Reading Time Taken Comments Blood Pressure 112/64 08/28/2023 4:16 PM CDT Pulse 52 08/28/2023 4:16 PM CDT Temperature 36.7 ??C (98.1 ??F) 04/07/2023 2:34 PM CS T Respiratory Rate 17 04/07/2023 2:34 PM HYDROELECT[employer]IC PLANT ELECTRICAL ENGINEER Oxygen Saturation 93% 08/28/2023 3:24 PM CDT [...] CDT Appointment Department of Laboratory Medicine in [place] [address] [place] [address] Sera Casiano M.D., Ph.D. [address] [place] [phone] 09/08/2023 10:10 AM CDT Appointment Department of Laboratory Medicine in [place] [address] [place] [address] Sera Casiano M.D., Ph.D. [address] [place] [phone] 09/08/2023 2:00 PM CDT Virtual Visit Department of Family Medicine, [facility], in [address] [phone] Clover Macias M.D. [address] [place] [phone] Discharge Disposition: Home or Self Care 09/10/2023 10:45 AM CDT Clinical Communication Virtual Review in [address] [phone] 09/10/2023 2:30 PM CDT Ancillary Procedure Department of Cardiovascular Diseases in [address] [phone] Clover Macias M.D. [address] [place] [phone] Discharge Disposition: Home or Self Care 09/14/2023 9:30 AM CDT Comprehensive Visit Division of Pulmonary Medicine in [place], [place] [address] [place] [address] Luis Carrion M.B.B.S. [address] [place] [phone] 10/01/2023 9:30 AM CDT Comprehensive Visit Department of Cardiovascular Diseases in [address] [phone] Nikko Dey M.D. [address] [place] [phone] Discharge Disposition: Home or Self Care 10/27/2023 2:25 PM CDT Appointment Department of Cardiovascular Diseases in [place], [place] [address] [place] [phone] Clover Macias M.D. [address] [place] [phone] Discharge Disposition: Home or Self Care Procedures Procedure Name Priority Date/Time Associated Diagnosis [...] Erythropoietin FERRITIN, S Routine 06/29/2023 12:11 PM HY[employer]OELECT[employer]IC PLANT ELECTRICAL ENGINEER 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 IRON AND TOT IRON-BINDING CAPACITY, S/P Routine 06/29/2023 12:11 PM HYDROELECTRIC PLANT ELECTRICAL ENGINEER 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 RENAL FUNCTION PANEL, S Routine 06/29/2023 12:11 PM HYDROELECTRIC PLANT ELECTRICAL ENGINEER Hyperkalemia QUANTIFERON-TB GOLD PLUS, B Routine 06/15/2023 4:07 PM HYDROELECTRIC PLANT ELECTRICAL ENGINEER Chronic Kidney Disease Stage 5 Glomerular Filtration Rate Less Than 15 (HCC) BASIC METABOLIC PANEL, S/P Routine 06/15/2023 4:06 PM HYDROELECTRIC PLANT ELECTRICAL ENGINEER Chronic Kidney Disease Stage 5 Glomerular Filtration Rate Less Than 15 (HCC) HEPATITIS B SURFACE ANTIGEN Routine 06/15/2023 4:06 PM HYDROELECT[employer]IC PLANT ELECTRICAL ENGINEER Chronic Kidney Disease Stage 5 Glomerular Filtration Rate Less Than 15 (HCC) HCV AB W/REFLEX TO HCV PCR, S Routine 06/15/2023 4:06 PM HYDROELECTRIC PLANT ELECTRICAL ENGINEER Chronic Kidney Disease Stage 5 Glomerular Filtration Rate Less Than 15 (HCC) HBC TOTAL AB, SERUM Routine 06/15/2023 4 :06 PM HYDROELECTRIC PLANT ELECTRICAL ENGINEER Chronic Kidney Disease Stage 5 Glomerular Filtration Rate Less Than 15 (HCC) HBS ANTIBODY, SERUM Routine 06/15/2023 4 :06 PM HYDROELECTRIC PLANT ELECTRICAL ENGINEER Chronic Kidney Disease Stage 5 Glomerular Filtration Rate Less Than 15 (HCC) OPTICAL COHERENCE TOMOGRAPHY - MACULA/RETINA - OU - BOTH EYES Routine 06/15/2023 2:26 PM HYDROELECTRIC PLANT ELECTRICAL ENGINEER 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) OPHTHALMOLOGY IMAGE EXAM Routine 06/15/2023 12:00 AM HYDROELECTRIC PLANT ELECTRICAL ENGINEER CBC WITH DIFFERENTIAL, B Routine 06/12/2023 10:53 AM HYDROELECTRIC PLANT ELECTRICAL ENGINEER Anemia Of Chronic Renal Disease FOLATE, S Routine 06/12/2023 10:53 AM HYDROELECTRIC PLANT ELECTRICAL ENGINEER Hypertension And Chronic Kidney Disease Stage 5 (HCC) Proteinuria 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 Acute Metabolic Acidosis Hyperphosphatemia Hypocalcemia VITAMIN B12 ASSAY, S Routine 06/12/2023 10:53 AM HYDROELECTRIC PLANT ELECTRICAL ENGINEER Hypertension And Chronic Kidney Disease Stage 5 (HCC) Proteinuria 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 Acute Metabolic Acidosis Hyperphosphatemia Hypocalcemia COLONOSCOPY Routine 04/07/2023 1:48 PM HYDROELECTRIC PLANT ELECTRICAL ENGINEER Cancer Colon Transverse Personal History HEMOGLOBIN A1C, B Routine 03/30/2023 12:21 PM HYDROELECTRIC PLANT ELECTRICAL ENGINEER Hypertension And Chronic Kidney Disease Stage 5 [...] MUSE QTC Interval 414 ms MUSE R [place] -12 degrees MUSE T Wave [place] 95 degrees MUSE 08/28/2023 4:11 PM CDT [...] DIAGNOSTIC IMAG ING PROCEDURES * Thyroid Function [place] (08/20/2023 3:17 PM CDT) TSH, Sensitive 2.7 0.3 - 4.2 mIU/L 08/20/2023 8:07 PM CDT [facility] Blood (Blood, Venous) 08/20/2023 3:17 PM CDT 08/20/2023 7:01 PM CDT Clover Macias M.D. LAB BLOOD ADD-ON [facility] [address] [place] [address], [facility] RDW[facility] in [place] [address] [place] [phone] * (ABNORMAL) CBC without Differential (08/20/2023 3:17 PM CDT) Hemoglobin 8.5(L) 13.2 - 16.6 g/dL 08/20/2023 [...] M.D. LAB BLOOD ADD-ON Performing Organization Address City/[facility]/ZIP Co de Phone Number [facility] [address] [place] [id number], [facility] [address] [phone] * Magnesium (08/20/2023 3:17 PM CDT) Magnesium, P 2.0 1.7 - 2.3 mg/dL 08/20/2023 7:37 PM CDT [facility] Blood (Blood, Venous) 08/20/2023 3:17 PM CDT 08/20/2023 7:00 PM CDT Clover Macias M.D. LAB BLOOD ADD-ON Performing Organization Address [facility]/ZIP Co de Phone Number [facility] [address] [place] [phone], [facility] in [address] [phone] * (ABNORMAL) Comprehensive Metabolic Panel (08/20/2023 3:17 [...] CDT Clover Macias M.D. LAB BLOOD ADD-ON [facility] [address] [address], [facility] RDWG [facility] in [place] [address] [phone] * US Upper Extremity Bilateral Dialysis Mapping [...] UR INE ORDERABLES Performing Organization Address City/[facility]/ZIP Co de Phone Number [facility] [address] [place] [address] * (ABNORMAL) Microscopic Manual (07/29/2023 10:27 AM [...] UR INE ORDERABLES Performing Organization Address City/[facility]/ZIP Co de Phone Number [facility] [address] [place] [place] [address] * pH, Urine (07/29/2023 10:27 AM CDT) Pathologist [facility] pH, U 6.2 4.5 - 8.0 07/29/2023 11: 02 AM CDT DTL Urine 07/29/2023 10:2 7 AM CDT 07/29/2023 10:35 AM CDT Sera Hyman M.D., Ph.D. LAB UR INE ORDERABLES Performing Organization Address City/[facility]/ZIP Co de Phone Number [facility] [address] [place] [address] * Osmolality, Urine (07/29/2023 10:27 AM CDT) [facility] Osmolality, U 323 150 - 1150 mOsm/kg 07/29/2023 11:02 AM CDT DT Urine 07/29/2023 10:2 7 AM CDT 07/29/2023 10:35 AM CDT Sera Hyman M.D., Ph.D. LAB UR INE ORDERABLES Performing Organization Address City/[facility]/ZIP Co de Phone Number [facility] [address] [place] [address] * (ABNORMAL) Urinalysis, with Microscopic: Urine, Midstream (07/29/2023 10:27 AM CDT) Only the most recent of2 resultswithin the time period is included. Pathologist [facility] Source Urine, Urine, Midstream 07/29/2023 10:35 AM CDT DTL Color, U Yellow 07/29/2023 10:35 AM CDT DTL Clarity, U Clear 07/29/2023 10:35 AM CDT DTL Protein, U 308(H) <26 mg/dL 07/29/2023 11:44 AM CDT DTL Protein/Osmol ality 9.54(H) <0.42 ratio 07/29/2023 11:44 AM CDT DTL Predicted 24 HR Protein, U 8076(H) <229 mg/24 h 07/29/2023 11:44 AM CDT DTL Predicted Range 2563-38508 mg/24 h 07/29/2023 11:44 AM CDT DTL Comment Micro done on <10 mL 07/29/2023 1:01 PM CDT DTL Urine (Urine, Midstream) 07/29/2023 10:27 AM CDT 07/29/2023 10:35 AM CDT Sera Hyman M.D., Ph.D. LAB UR INE ORDERABLES Performing Organization Address City/[facility]/ZIP Co de Phone Number [facility] [address] [place] [address], [facility] [address] [place] [address] * ANCA (Antineutrophil Cytoplasmic Antibodies) Vasculitis Panel (07/29/2023 10:17 AM CDT) Myeloperoxidase Ab, S <0.2 <0.4 (Negative ) U 07/29/2023 4:45 PM CDT SDSC Proteinase 3 Ab (PR3), S <0.2 <0.4 (Negative ) U 07/29/2023 4:45 PM CDT [facility] Blood (Blood, Venous) 07/29/2023 10:17 AM CDT 07/29/2023 2:52 PM CDT Sera Hyman M.D., Ph.D. LAB BL OOD ADD-ON [facility] [address] [place] [address] [facility] [address] [place] [address] * (ABNORMAL) CBC with Differential, Blood (07/29/2023 [...] Hyman M.D., Ph.D. LAB BL OOD ADD-ON [facility] [address] [place] [address], [facility] [address] [place] [address] [facility]3] 200 [place] [address] * CRP (C-Reactive Protein) (07/29/2023 10:17 AM CDT) C-Reactive Protein (CRP), S <3.0 <5.0 mg/L 07/29/2023 12:32 PM CDT DTL Blood (Blood, Venous) 07/29/2023 10:17 AM CDT 07/29/2023 10:55 AM CDT Sera Hyman M.D., Ph.D. LAB BL OOD ADD-ON [facility] [address] [address] * (ABNORMAL) Uric Acid (07/29/2023 10:17 AM CDT) Only the most recent of2 resultswithin the time period is included. Uric Acid, S 11.2(H) 3.7 - 8.0 mg/dL 07/29/2023 12:32 PM CDT DTL Blood (Blood, Venous) 07/29/2023 10:17 AM CDT 07/29/2023 10:55 AM CDT Sera Hyman M.D., Ph.D. LAB BL OOD ADD-ON [facility] [address] [place], [place] [id number] [place] [address] * Phosphorus Inorganic (07/29/2023 10:17 AM CDT) Phosphorus (Inorganic), S 4.5 2.5 - 4.5 mg/dL 07/29/2023 12:32 PM CDT DTL Blood (Blood, Venous) 07/29/2023 10:17 AM CDT 07/29/2023 10:55 AM CDT Sera Hyman M.D., Ph.D. LAB BL OOD ADD-ON [facility] [address] 200 [place] [address] * (ABNORMAL) Glucose, Fasting (07/29/2023 10:17 AM CDT) Glucose, P 256(H) 70 - 100 mg/dL 07/29/2023 11:15 AM CDT DTL Last Intake 16 hr 07/29/2023 10:52 AM CDT DTL Blood (Blood, Venous) 07/29/2023 10:17 AM CDT 07/29/2023 10:52 AM CDT Sera Hyman M.D., Ph.D. LAB BL OOD NON ADD-ON Performing Organization Address City/[facility]/ZIP Co de Phone Number [facility] [address] [place] [address], [facility] [address] [place] [address] * Pulmonary Function Tests (07/29/2023 9:02 AM CDT) FVC 2.15 L 07/29/2023 10:32 AM CDT [facility] FEV1 1.56 L 07/29/2023 10:32 AM CDT [facility] FEV1/FVC 72.56 % 07/29/2023 10:32 AM CDT [facility] SUITE BHV50-17% 1.03 L/s 07/29/2023 10:32 AM CDT [facility] PEF PRE 5.91 L/s 07/29/2023 10:32 AM CDT [facility] PIF PRE 3.35 L/s 07/29/2023 10:32 AM CDT [facility] FEF 50 % FIF 50 PRE 54.00 % 07/29/2023 10:32 AM CDT [facility] FET PRE 9.49 sec 07/29/2023 10:32 AM CDT [facility] DLCO 10.65 ml/(min*mm Hg) 07/29/2023 10:32 AM CDT [facility] DLCOc 14.91 ml/(min*mm Hg) 07/29/2023 10:32 AM CDT [facility] HB 7.40 g(Hb)/dL 07/29/2023 10:32 AM CDT [facility] VA 4.05 L 07/29/2023 10:32 AM CDT [facility] PulseRest 50.00 1/min 07/29/2023 10:32 AM CDT [facility] TLC 4.43 L 07/29/2023 10:32 AM CDT [facility] FRCPLETH PROVBASE 2.72 L 07/29/2023 10:32 AM CDT [facility] RV 1.96 L 07/29/2023 10:32 AM CDT [facility] RV % TLC PRE 44.12 % 07/29/2023 10:32 AM CDT [facility] 07/29/2023 9:02 AM CDT Impressions [facility] - 07/29/2023 10:32 AM CDT Abnormal [...] BL OOD ADD-ON Performing Organization Address City/[facility]/ZIP Co de Phone Number [facility] [address] [place] [address], [place] RDWG [facility] [place] [address] [place] [address] * (ABNORMAL) Cystatin C with Estimated GFR [...] BL OOD ADD-ON Performing Organization Address City/[facility]/ZIP Co de Phone Number [facility] [address] [place] [address], [facility] DTL [facility] [address] [place] [address] * (ABNORMAL) Iron and Total Iron-Binding Capacity [...] BL OOD ADD-ON Performing Organization Address City/[facility]/ZIP Co de Phone Number [facility] [address] [place] [address], [facility] RDWG [facility] [place] [address] [place] [address] * (ABNORMAL) Albumin, Random, Urine (07/06/2023 9:22 AM CDT) Microalbumin 2309.6 mg/L 07/06/2023 1:30 PM CDT RDWG Creatinine 69 mg/dL 07/06/2023 12:51 PM CDT R[facility] Albumin/Creatinin e Ratio 3347(H) <17 mg/g 07/06/2023 1:30 PM CDT [facility] Urine (Urine, Voided) 07/06/2023 9:22 AM CDT 07/06/2023 11:59 AM CDT Sera Hyman M.D., Ph.D. LAB UR INE ORDERABLES Performing Organization Address City/[facility]/ZIP Co de Phone Number [facility] [address] [place] [address], [facility] RDWG [facility] [place] [address] [place] [phone] * (ABNORMAL) Protein/Creatinine Ratio, Random, Urine (07/06/2023 [...] UR INE ORDERABLES Performing Organization Address City/[facility]/ZIP Co de Phone Number [facility] [address] [place] [address], [facility] RDWG [facility] in [address] [address] * (ABNORMAL) Ferritin (07/06/2023 9:22 AM CDT) Only the most recent of2 resultswithin the time period is included. Pathologist [facility] Ferritin, S 457(H) 31 - 409 mcg/L 07/06/2023 12:57 PM CDT RDWG Comment: Biotin has been identified by the business project analyst as a potential interfering substance. Higher [...] BL OOD ADD-ON Performing Organization Address City/[facility]/ZIP Co de Phone Number [facility] [address] [place] [address], [facility] RDWG [facility] in [address] [address] * QuantiFERON-Tb Gold Plus, Blood (06/15/2023 4:07 PM HYDROELECTRIC PLANT ELECTRICAL ENGINEER) Pathologist [facility] QuantiFERON-TB Gold Plus Result Negative Negative 06/16/2023 12:08 PM HYDROELECTRIC PLANT ELECTRICAL ENGINEER [facility] Comment: No interferon-gamma response to M. tuberculosis [...] Nil Result 0.02 IU/mL 06/16/2023 12:08 PM HYDROELECTRIC PLANT ELECTRICAL ENGINEER SDSC TB2 Ag minus Nil Result 0.01 IU/mL 06/16/2023 12:08 PM HYDROELECTRIC PLANT ELECTRICAL ENGINEER SDSC Mitogen minus Nil Result 3.42 IU/mL 06/16/2023 12:08 PM HYDROELECTRIC PLANT ELECTRICAL ENGINEER SDSC Nil Result 0.04 IU/mL 06/16/2023 12:08 PM HYDROELECTRIC PLANT ELECTRICAL ENGINEER SDSC Blood (Blood, Venous) 06/15/2023 4:07 PM HYDROELECTRIC PLANT ELECTRICAL ENGINEER 06/15/2023 5:59 PM HYDROELECTRIC PLANT ELECTRICAL ENGINEER Narrative [facility] - 06/16/2023 12:08 PM HYDROELECTRIC PLANT ELECTRICAL ENGINEER Specimen Information: Specimen ID: [id number] Specimen Type: Blood Specimen Collection Start Date: 06/15/2023 ??4:07 PM Specimen Received Date: 06/15/2023 ??5:59 PM Specimen ID: [id number] Specimen Type: Blood Specimen Collection Start Date: 06/15/2023 ??4:07 PM Specimen Received Date: 06/15/2023 ??5:59 PM Specimen ID: [id number] Specimen Type: Blood Specimen Collection Start Date: 06/15/2023 ??4:07 PM Specimen Received Date: 06/15/2023 ??5:59 PM Specimen ID: [id number] Specimen Type: Blood Specimen Collection Start Date: 06/15/2023 ??4:07 PM Specimen Received Date: 06/15/2023 ??5:59 PM Sera Hyman M.D., Ph.D. LAB [facility]OD ORDER[facility]LES Performing Organization Address City/[facility]/ZIP Co de Phone Number [facility] [address] [place] [address] [facility] [address] [place] [address] * HCV Ab w/Reflex to HCV PCR, Serum (06/15/2023 4:06 PM HYDROELECTRIC PLANT ELECTRICAL ENGINEER) HCV Ab, S Negative Negative 06/15/2023 10:21 PM HYDROELECTRIC PLANT ELECTRICAL ENGINEER [facility] Comment:Xdwyrn-zn-mfhllt rat io is <1.00. Blood (Blood, Venous) 06/15/2023 4:06 PM HYDROELECTRIC PLANT ELECTRICAL ENGINEER 06/15/2023 8:15 PM HYDROELECTRIC PLANT ELECTRICAL ENGINEER Sera Hyman M.D., Ph.D. LAB [facility] - BLOOD ORDERABLES Performing Organization Address City/[facility] Co de Phone Number [facility] [address] [place] [address] [facility] [address] [place] [address] * HBc Total Ab, Serum (06/15/2023 4:06 PM HYDROELECTRIC PLANT ELECTRICAL ENGINEER) Pathologist [facility] HBc Total Ab, S Negative Negative 06/15/2023 10:17 PM HYDROELECTRIC PLANT ELECTRICAL ENGINEER [facility] Blood (Blood, Venous) 06/15/2023 4:06 PM HYDROELECTRIC PLANT ELECTRICAL ENGINEER 06/15/2023 8:15 PM HYDROELECTRIC PLANT ELECTRICAL ENGINEER Sera Hyman M.D., Ph.D. LAB [facility] - BLOOD ORDERABLES Performing Organization Address City/[facility]/ZIP Co de Phone Number [facility] [address] [place] [address] [facility] [address] [place] [address] * HBs Antibody, Serum (06/15/2023 4:06 PM HYDROELECTRIC PLANT ELECTRICAL ENGINEER) HBs Antibody, S Negative 06/15/2023 10:18 PM HYDROELECTRIC PLANT ELECTRICAL ENGINEER [facility] Comment: Patient is presumed to be not immune to infection with HBV. ----REFERENCE VALUE---- Unvaccinated: Negative Vaccinated: Positive HBs Antibody, Quantitative, S <5.0 mIU/mL 06/15/2023 10:18 PM HYDROELECTRIC PLANT ELECTRICAL ENGINEER [facility] Comment: ----REFERENCE VALUE---- Unvaccinated: <5.0 Vaccinated: >=12.0 Blood (Blood, Venous) 06/15/2023 4:06 PM HYDROELECTRIC PLANT ELECTRICAL ENGINEER 06/15/2023 8:15 PM HYDROELECTRIC PLANT ELECTRICAL ENGINEER Sera Hyman M.D., Ph.D. LAB [facility] BLOOD ORDERABLES Performing Organization Address City/[facility]/ZIP Co de Phone Number [place] [address] [place], [place] [address] [place] [address] [place] [address] * Hepatitis B Surface Antigen (06/15/2023 4:06 PM HYDROELECTRIC PLANT ELECTRICAL ENGINEER) HBs Antigen, S Negative Negative 06/15/2023 10:03 PM HYDROELECTRIC PLANT ELECTRICAL ENGINEER [facility] Blood (Blood, Venous) 06/15/2023 4:06 PM HYDROELECTRIC PLANT ELECTRICAL ENGINEER 06/15/2023 8:15 PM HYDROELECTRIC PLANT ELECTRICAL ENGINEER Sera Hyman M.D., Ph.D. LAB [facility] BLOOD ORDERABLES Performing Organization Address City/[facility]/ZIP Co de Phone Number [facility] [address] [place] [id number] [place] [address] [place] [address] * (ABNORMAL) Basic Metabolic Panel (06/15/2023 4:06 PM HYDROELECTRIC PLANT ELECTRICAL ENGINEER) Potassium, S 5.6(H) 3.6 - 5.2 mmol/L 06/15/2023 4:59 PM HYDROELECTRIC PLANT ELECTRICAL ENGINEER DTL Sodium, S 142 135 - 145 mmol/L 06/15/2023 4:59 PM HYDROELECTRIC PLANT ELECTRICAL ENGINEER DTL Chloride, S 105 98 - 107 mmol/L 06/15/2023 4:59 PM HYDROELECTRIC PLANT ELECTRICAL ENGINEER DTL Bicarbonate, S 23 22 - 29 mmol/L 06/15/2023 4:59 PM HYDROELECTRIC PLANT ELECTRICAL ENGINEER DTL Anion Gap 14 7 - 15 06/15/2023 4:59 PM HYDROELECTRIC PLANT ELECTRICAL ENGINEER DTL BUN (Blood Urea Nitrogen), S 68(H) 8 - 24 mg/dL 06/15/2023 4:59 PM HYDROELECTRIC PLANT ELECTRICAL ENGINEER DTL Creatinine 4.61(H) 0.74 - 1.35 mg/dL 06/15/2023 4:59 PM HYDROELECTRIC PLANT ELECTRICAL ENGINEER DTL Estimated GFR (eGFR) <15(L) >=60 mL/min/BSA 06/15/2023 4:59 PM HYDROELECTRIC PLANT ELECTRICAL ENGINEER DTL Comment: Estimated GFR calculated using the 2020 CKD_EPI creatinine equation. Calcium, Total, S 8.8 8.8 - 10.2 mg/dL 06/15/2023 4:59 PM HYDROELECTRIC PLANT ELECTRICAL ENGINEER DTL Glucose, S 130 70 - 140 mg/dL 06/15/2023 4:59 PM HYDROELECTRIC PLANT ELECTRICAL ENGINEER DTL Blood (Blood, Venous) 06/15/2023 4:06 PM HYDROELECTRIC PLANT ELECTRICAL ENGINEER 06/15/2023 4:42 PM HYDROELECTRIC PLANT ELECTRICAL ENGINEER Sera Hyman M.D., Ph.D. LAB BL OOD ADD-ON Performing Organization Address City/[facility]/[place] [address], [facility] [place] [place] [address] * Optical Coherence Tomography - Macula/Retina - OU - Both Eyes (06/15/2023 2:26 PM HYDROELECTRIC PLANT ELECTRICAL ENGINEER) Narrative OPHTHALMOLOGY IMAGING EXAM - 06/15/2023 3:45 PM HYDROELECTRIC PLANT ELECTRICAL ENGINEER Right Eye Reliability was good. OCT device used was Spectralis . Left Eye It was a technically difficult scan. OCT device used was Spectralis . Notes FREDY/JH See interpretation in note section Justin Bunch M.D. OPHTH TOMOGRAPHY Performing Organization Address City/[facility]/ZIP Co de Phone Number OPHTHALMOLOGY IMAGING EXAM * Eyes Spectralis OCT-Ophthalmology Image Exam (06/15/2023 12:00 AM HYDROELECTRIC PLANT ELECTRICAL ENGINEER) Narrative [facility] - 06/15/2023 2:28 PM HYDROELECTRIC PLANT ELECTRICAL ENGINEER This order has been created and auto-finalized to support the import of images acquired without order. The clinical documentation to support these images can be found on the encounter that produced images. Provider Not In System IMG NON RAD IMAGI NG PROCEDURES Performing Organization Address City/[facility] Co de Phone Number [facility] NA * Folate (06/12/2023 10:53 AM HYDROELECTRIC PLANT ELECTRICAL ENGINEER) Folate, S 12.6 >=4.0 mcg/L 06/13/2023 2:09 AM HYDROELECTRIC PLANT ELECTRICAL ENGINEER ECLR Comment: Biotin has been identified by the business project analyst as a potential interfering substance. Higher concentrations of biotin may be found in multivitamins, hair/nail supplements, and workout supplements. If the result does not match clinical observations, repeat testing after patient refrains from the use of supplements for at least 12 hours. Blood (Blood, Venous) 06/12/2023 10:53 AM HYDROELECTRIC PLANT ELECTRICAL ENGINEER 06/12/2023 9:30 PM HYDROELECTRIC PLANT ELECTRICAL ENGINEER Mónica Portillo APRN, C.N.P., M.S. LAB BLOOD ADD-ON Performing Organization Address [facility] Co de Phone Number [facility] [address] [place] [address], [facility] ECLR [place] [address] * (ABNORMAL) Vitamin B12 Assay (06/12/2023 10:53 AM HYDROELECTRIC PLANT ELECTRICAL ENGINEER) Vitamin B12 Assay, S 1249(H) 232 - 1245 ng/L 06/13/2023 2:09 AM HYDROELECTRIC PLANT ELECTRICAL ENGINEER ECLR Comment: Biotin has been identified by the business project analyst as a potential interfering substance. Higher concentrations of biotin may be found in multivitamins, hair/nail supplements, and workout supplements. If the result does not match clinical observations, repeat testing after patient refrains from the use of supplements for at least 12 hours. Blood (Blood, Venous) 06/12/2023 10:53 AM HYDROELECTRIC PLANT ELECTRICAL ENGINEER 06/12/2023 9:30 PM HYDROELECTRIC PLANT ELECTRICAL ENGINEER Mónica Portillo APRN, C.N.P., M.S. LAB BLOOD ADD-ON [facility] [address] [place] [address], [facility] ECLR [facility] [place] [address] [place] [address] * (ABNORMAL) Hemoglobin A1c (03/30/2023 12:21 PM HYDROELECTRIC PLANT ELECTRICAL ENGINEER) Hemoglobin A1c, B 6.8(H) 4.2 - 5.6 % 03/30/2023 12:36 PM HYDROELECTRIC PLANT ELECTRICAL ENGINEER CNFL Comment: Hemoglobin A1c values greater than or equal to 6.5 percent are diagnostic for diabetes mellitus. ??Diagnosis should be confirmed by repeat testing. ??In diabetic patients, HbA1c goals should be discussed with healthcare provider. Blood (Blood, Venous) 03/30/2023 12:21 PM HYDROELECTRIC PLANT ELECTRICAL ENGINEER 03/30/2023 12:23 PM HYDROELECTRIC PLANT ELECTRICAL ENGINEER Mónica Portillo APRN, C.N.P., M.S. LAB BLOOD ADD-ON 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 [address] [place] [phone] PCP - General Internal Medicine 11/23/17
--- OUTSIDE RECORDS SUMMARY | 2023-09-06 06:15 | XMS_ITS | Encounter Summary ---
Author Name Unknown Organization [facility] Address [address] [place] [address] Care Team Providers Care Features Editor Name Role Phone Clover Delaney M.D. Primary Care Provider [phone] Reason for Visit * Reason Onset Date Comments Hyperglycemia 08/22/2023 Encounter Details Date Type Department Care Team (Late st Contact Info) Description 08/22/2023 Nurse Triage Department of Community Internal Medicine in [address] [place] [phone] Savanah Gibson, M.S.N., R.N. Hyperglycemia Social History Tobacco Use Types Packs/Day Years [...] Answer Date Recorded PHQ-2 Score 2 05/28/2023 [facility] of Occupat ional Health - Occupational Stress [...] No 07/28/2022 Housing Stability Vital Sign Answer Aawis e Recorded In the last 12 months, [...] Sex Assigned at Male 05/13/2021 10:11 AM SHEET METAL LAYOUT WORKER Gender Identity Male 11/02/2017 7:22 PM CDT Sexual Orientation Straight 11/02/2017 7: 22 PM CDT documented as of this encounter Miscellaneous Notes * Telephone Encounter - Savanah Gibson M.S.N., R.N. - 08/22/2023 11:16 AM CDT Chief Complaint / Reason for Call Patient is a 77 y.o. male calling regarding Hyperglycemia. Assessment Concern: Patient reports he has had his diabetic medica ition changed. He was place d on Mounjaro ,takes 7.5 mg . He was started back on Lantus 15 units yesterday. Hs blood sugar today was 440 Present for: on going Home cares tried: called Endocrinology yesterday and nurse line today Calling to request: advice Patient is followed by endocrinology RST , assisted to switchboard for further assistance from specialty. The recommended disposition is Call PCP Now. Reason for Disposition Blood glucose > 400 mg/dL (22.2 mmol/L) Protocols used: Diabetes - High Blood Jphbl-SNUFT-AB Care Advice Patient/Caregiver understands and will follow care advice?: Yes, able to teach back Diabetes - High Blood Agtux-[id number] Savanah Gibson M.S.N., R.N. Sat Aug 22, 2023 11:28 AM Care Advice CALL PCP NOW: * You need to discuss this with your doctor (or GRANULATING MACHINE OPERATOR/PA). * I'll page the on-call provider now. If you haven't heard from the provider (or me) within 30 minutes, call again. ALTERNATE DISPOSITION - CALL YOUR SEASONAL TAX PREPARER NOW: * If you have a senior computer specialist (doctor, GRANULATING MACHINE OPERATOR, PA), call the specialist now. CALL BACK IF: * Vomiting occurs * Rapid breathing occurs * You become worse documented in this encounter Plan of Treatment Upcoming Encounters Date Type Department Care Team (Latest Contact Info) Description 09/08/2023 10:00 AM CDT Appointment Department of Laboratory Medicine in [place] [address] [place] [address] Sera Casiano M.D., Ph.D. [address] [place] [phone] 09/08/2023 10:10 AM CDT Appointment Department of Laboratory Medicine in [address] [place] [phone] Sera Casiano M.D., Ph.D. [address] [place] [phone] 09/08/2023 2:00 PM CDT Virtual Visit Department of Family Medicine, [facility], in [address] [phone] Clover Delaney M.D. [address] [place] [phone] Discharge Disposition: Home or Self Care 09/10/2023 10:45 AM CDT Clinical Communication Virtual Review in [place], [place] 200 [place] [address] 09/10/2023 2:30 PM CDT Ancillary Procedure Department of Cardiovascular Diseases in [address] [phone] Clover Delaney M.D. [address] [place] [phone] Discharge Disposition: Home or Self Care 09/14/2023 9:30 AM CDT Comprehensive Visit Division of Pulmonary Medicine in [place], [place] [address] [place] [phone] Luis Carrion M.B.B.S. [address] [place] [phone] 10/01/2023 9:30 AM CDT Comprehensive Visit Department of Cardiovascular Diseases in [address] [phone] Nikko Dey M.D. [address] [place] [address] [place] [phone] Discharge Disposition: Home or Self Care 10/27/2023 2:25 PM CDT Appointment Department of Cardiovascular Diseases in [place], [place] [address] [place] [address] Clover Delaney M.D. [address] [place] [phone] Discharge Disposition: Home or Self Care documented as of this encounter Visit Diagnoses Not on filedocumented in this encounter Additional Health Concerns Assessment Noted Time PHQ-9 Depression Total Score: 4 06/06/19 23 2:04 PM SHEET METAL LAYOUT WORKER documented as of this encounter Care Teams Features Editor Relationship Specialty Start Date End Date Clover Delaney M.D. [address] [place] [phone] PCP - General Internal Medicine 11/23/17 documented as of this encounter
--- OUTSIDE RECORDS SUMMARY | 2023-09-06 06:15 | XMS_ITS | Encounter Summary ---
Author Name Unknown Organization [facility] Address [address] [place] [address] Care Team Providers Care Compensation And Benefits Administrator Name Role Phone Clover Delaney M.D. Primary Care Provider +1- [phone] Reason for Visit * Reason Comments Med Refill Encounter Details Date Type Department Care Team (Late st Contact Info) Description 08/27/2023 Refill Division of Nephrology and Hypertension in [place], [place] [address] [place] [phone] Mónica Portillo, TRIXIE, C.N.P., M.S. [address] [place] [phone] Med Refill Social History Tobacco Use Types Packs/Day Years Used Date Smoking Tobacco: Former Cigarettes 0 1961 - 12/26/1980 Passive Smoke Exposure: Never Smokeless Tobacco: Never Alcohol Use Standard Drinks/Week Comments Yes 0 (1 standard drink = 0.6 oz pur e alcohol) Maybe one drink per month [facility] Utilities Answer Date Recorded In the past 12 months has e [employer], gas, oil, or water [employer] threatened to shut off services in your [...] often do you attend chur ch or episcopal services? Never 07/28/2022 Do you [...] Answer Date Recorded PHQ-2 Score 2 05/28/2023 [facility] [place] of Occupat ional Health - Occupational Stress [...] your living situation today? I have a [facility] place to live 08/28/2023 Education Answer Date Recorded What is the highest level of school you have completed or the highest degree you have received? Professional school degree (e.g., MD, DDS, DVM, NACHO) 10/10/2020 Sex and Gender Information Value Date Recorded Sex Assigned at Male 05/13/2021 10:11 AM ELECTRICAL PROSPECTING OPERATOR Gender Identity Male 11/02/2017 7:22 PM CDT Sexual Orientation Straight 11/02/2017 7: 22 PM CDT documented as of this encounter Plan of Treatment Upcoming Encounters Date Type Department Care Team (Latest Contact Info) Description 09/08/2023 10:00 AM CDT Appointment Department of Laboratory Medicine in [place] [address] [place] [address] Sera Casiano M.D., Ph.D. [address] [place] [phone] 09/08/2023 10:10 AM CDT Appointment Department of Laboratory Medicine in [address] [place] [address] Sera Casiano M.D., Ph.D. [address] [place] [phone] 09/08/2023 2:00 PM CDT Virtual Visit Department of Family Medicine, [facility], in [address] [phone] Clover Delaney M.D. [address] [place] [phone] Discharge Disposition: Home or Self Care 09/10/2023 10:45 AM CDT Clinical Communication Virtual Review in [place], [place] 200 [place] [address] 09/10/2023 2:30 PM CDT Ancillary Procedure Department of Cardiovascular Diseases in [address] [phone] Clover Delaney M.D. [address] [place] [phone] Discharge Disposition: Home or Self Care 09/14/2023 9:30 AM CDT Comprehensive Visit Division of Pulmonary Medicine in [address] [phone] Luis Carrion M.B.B.S. [address] [place] [phone] 10/01/2023 9:30 AM CDT Comprehensive Visit Department of Cardiovascular Diseases in [place], [place] 701 [place] [phone] Nikko Dey M.D. 701 [place] [phone] Discharge Disposition: Home or Self Care 10/27/2023 2:25 PM CDT Appointment Department of Cardiovascular Diseases in [place], [place] [address] [place] [address] Clover Delaney M.D. [address] [place] [phone] Discharge Disposition: Home or Self Care documented as of this encounter Visit Diagnoses Not on filedocumented in this encounter Additional Health Concerns Assessment Noted Time PHQ-9 Depression Total Score: 4 06/06/19 23 2:04 PM ELECTRICAL PROSPECTING OPERATOR documented as of this encounter Care Teams Compensation And Benefits Administrator Relationship Specialty Start Date End Date Clover Delaney M.D. [address] [place] [phone] PCP - General Internal Medicine 11/23/17 documented as of this encounter
--- OUTSIDE RECORDS SUMMARY | 2023-09-06 06:15 | XMS_ITS | Encounter Summary ---
Author Name Unknown Organization [facility] Address [address] [place] [address] Care Team Providers Care Mill Beam Fitter Name Role Phone Clover Delaney M.D. Primary Care Provider +1- [phone] Reason for Visit * Reason Comments Med Refill Encounter Details Date Type Department Care Team (Late st Contact Info) Description 08/25/2023 Refill Department of Ophthalmology in [place], [place] [address] [place] [phone] Jon Juarez M.D. [address] [place] [phone] Med Refill Social History Tobacco Use Types [...] often do you attend chur ch or mosque services? Never 07/28/2022 Do you belong to [...] Answer Date Recorded PHQ-2 Score 2 05/28/2023 [facility] of Occupat ional Health - [...] Sex Assigned at Male 05/13/2021 10:11 AM LIME PULLER Gender Identity Male 11/02/2017 7:22 PM CDT Sexual Orientation Straight 11/02/2017 7: 22 PM CDT documented as of this encounter Plan of Treatment Upcoming Encounters Date Type Department Care Team (Latest Contact Info) Description 09/08/2023 10:00 AM CDT Appointment Department of Laboratory Medicine in [place] [address] [place] [address] Sera Casiano M.D., Ph.D. [address] [place] [phone] 09/08/2023 10:10 AM CDT Appointment Department of Laboratory Medicine in [place], [place] [address] [place] [address] Sera Casiano M.D., Ph.D. [address] [place] [phone] 09/08/2023 2:00 PM CDT Virtual Visit Department of Family Medicine, [facility], in [address] [phone] Clover Delaney M.D. 701 [place] [phone] Discharge Disposition: Home or Self Care 09/10/2023 10:45 AM CDT Clinical Communication Virtual Review in [address] [address] 09/10/2023 2:30 PM CDT Ancillary Procedure Department of Cardiovascular Diseases in [address] [phone] Clover Delaney M.D. 701 [place] [phone] Discharge Disposition: Home or Self Care 09/14/2023 9:30 AM CDT Comprehensive Visit Division of Pulmonary Medicine in [address] [address] Luis Carrion M.B.B.S. [address] [place] [address] 10/01/2023 9:30 AM CDT Comprehensive Visit Department of Cardiovascular Diseases in [place], [place] [address] [place] [phone] Nikko Dey M.D. [address] [place] [phone] Discharge Disposition: Home or Self Care 10/27/2023 2:25 PM CDT Appointment Department of Cardiovascular Diseases in [place], [place] [address] [place] [address] Clover Delaney M.D. [address] [place] [phone] Discharge Disposition: Home or Self Care documented as of this encounter Visit Diagnoses Not on filedocumented in this encounter Additional Health Concerns Assessment Noted Time PHQ-9 Depression Total Score: 4 06/06/19 23 2:04 PM LIME PULLER documented as of this encounter Care Teams Mill Beam Fitter Relationship Specialty Start Date End Date Clover Delaney M.D. [address] [place] [phone] PCP - General Internal Medicine 11/23/17 documented as of this encounter
--- OUTSIDE RECORDS SUMMARY | 2023-09-06 06:15 | XMS_ITS | Encounter Summary ---
Author Name Unknown Organization [facility] Address [address] [place] [address] Care Team Providers Care Sql Dba Name Role Phone Clover Delaney M.D. Primary Care Provider +1- [phone] Encounter Details Date Type Department Care Team (Late st Contact Info) Description 08/21/2023 Orders Only Division of Endocrinology in [place], [place] [address] [place] [phone] Cammy Silva M.D. 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 Never 07/28/2022 Do you [...] Recorded PHQ-2 Score 2 05/28/2023 [facility] [place] of Occupat ional Health - Occupational Stress [...] your living situation today? I have a [facility] place to live 08/28/2023 Education Answer Date Recorded What is the highest level of school you have completed or the highest degree you have received? Professional school degree (e.g., , DDS, DVM, NACHO) 10/10/2020 Sex and Gender Information Value Date Recorded Sex Assigned at Male 05/13/2021 10:11 AM AIR CREW MEMBER Gender Identity Male 11/02/2017 7:22 PM CDT Sexual Orientation Straight 11/02/2017 7: 22 PM CDT documented as of this encounter Plan of Treatment Upcoming Encounters Date Type Department Care Team (Latest Contact Info) Description 09/08/2023 10:00 AM CDT Appointment Department of Laboratory Medicine in [place] [address] [place] [phone] Sera Casiano M.D., Ph.D. [address] [place] [phone] 09/08/2023 10:10 AM CDT Appointment Department of Laboratory Medicine in [address] [place] [address] Sera Casiano M.D., Ph.D. [address] [place] [phone] 09/08/2023 2:00 PM CDT Virtual Visit Department of Family Medicine, [facility], in [address] [phone] Clover Delaney M.D. [address] [place] [phone] Discharge Disposition: Home or Self Care 09/10/2023 10:45 AM CDT Clinical Communication Virtual Review in [place], [place] 200 [place] [address] 09/10/2023 2:30 PM CDT Ancillary Procedure Department of Cardiovascular Diseases in [address] [phone] Clover Delaney M.D. 701 [place] [phone] Discharge Disposition: Home or Self Care 09/14/2023 9:30 AM CDT Comprehensive Visit Division of Pulmonary Medicine in [place], [place] [address] [place] [phone] Luis Carrion M.B.B.S. [address] [place] [phone] 10/01/2023 9:30 AM CDT Comprehensive Visit Department of Cardiovascular Diseases in [place], [place] [address] [place] [phone] Nikko Dey M.D. [address] [place] [phone] Discharge Disposition: Home or Self Care 10/27/2023 2:25 PM CDT Appointment Department of Cardiovascular Diseases in [place], [place] [address] [place] [address] Clover Delaney M.D. 701 [place] [phone] Discharge Disposition: Home or Self Care Scheduled Orders Name Type Priority Associated Diagnoses Orde r Schedule Hemoglobin A1c Lab Routine Diabetes Mellitus Type 2 With Diabetic Neuropathy (HCC) Expected: 08/21/2023, Expires: 11/19/2024 Glucose, Fasting Lab Routine Diabetes Mellitus Type 2 With Diabetic Neuropathy (HCC) Expected: 08/21/2023, Expires: 11/19/2024 documented as of this encounter Visit Diagnoses Diagnosis Diabetes Mellitus Type 2 With Diabetic Neuropathy (HCC)- Primary documented in this encounter Additional Health Concerns Assessment Noted Time PHQ-9 Depression Total Score: 4 06/06/19 23 2:04 PM AIR CREW MEMBER documented as of this encounter Care Teams Sql Dba Relationship Specialty Start Date End Date Clover Delaney M.D. [address] [place] [phone] PCP - General Internal Medicine 11/23/17 documented as of this encounter
--- OUTSIDE RECORDS SUMMARY | 2023-09-06 06:15 | XMS_ITS | Encounter Summary ---
Author Name Unknown Organization [facility] Address [address] [place] [address] Care Team Providers Care Parts Picker Name Role Phone Clover Delaney M.D. Primary Care Provider [phone]- [phone] Reason for Visit * Reason Comments infusion orders Encounter Details Date Type Department Care Team (Latest Contact Info) Description 08/25/2023 Clinical Communication Division of Nephrology and Hypertension in [place], [place] [address] [place] [address] Sera Casiano M.D., Ph.D. [address] [place] [phone] infusion orders Social History Tobacco Use Types Packs/Day Years Used Date Smoking Tobacco: Former Cigarettes 0 1961 - 12/26/1980 Passive Smoke Exposure: Never Smokeless Tobacco: Never Alcohol Use Standard Drinks/Week Comments Yes 0 (1 standard drink = 0.6 oz pur e alcohol) Maybe one drink per month [facility] Utilities Answer Date Recorded In the past 12 months has e [employer], gas, oil, or water [employer] threatened to shut off services in your [...] How often do you attend chur or christian services? Never 07/28/2022 Do you [...] Answer Date Recorded PHQ-2 Score 2 05/28/2023 [facility] [place] of Occupat ional Health - Occupational Stress [...] your living situation today? I have a [facility] place to live 08/28/2023 Education Answer Date Recorded What is the highest level of school you have completed or the highest degree you have received? Professional school degree (e.g., MD, DDS, DVM, NACHO) 10/10/2020 Sex and Gender Information Value Date Recorded Sex Assigned at Male 05/13/2021 10:11 AM MOTOR CARRIER INSPECTOR Gender Identity Male 11/02/2017 7:22 PM CDT Sexual Orientation Straight 11/02/2017 7: 22 PM CDT documented as of this encounter Plan of Treatment Upcoming Encounters Date Type Department Care Team (Latest Contact Info) Description 09/08/2023 10:00 AM CDT Appointment Department of Laboratory Medicine in [place] [address] [place] [phone] Sera Casiano M.D., Ph.D. [address] [place] [phone] 09/08/2023 10:10 AM CDT Appointment Department of Laboratory Medicine in [address] [place] [address] Sera Casiano M.D., Ph.D. [address] [place] [phone] 09/08/2023 2:00 PM CDT Virtual Visit Department of Family Medicine, [facility], in [address] [phone] Clover Delaney M.D. 701 [place] [phone] Discharge Disposition: Home or Self Care 09/10/2023 10:45 AM CDT Clinical Communication Virtual Review in [place], [place] 200 [place] [address] 09/10/2023 2:30 PM CDT Ancillary Procedure Department of Cardiovascular Diseases in [address] [phone] Clover Delaney M.D. 701 [place] [phone] Discharge Disposition: Home or Self Care 09/14/2023 9:30 AM CDT Comprehensive Visit Division of Pulmonary Medicine in [place], [place] [address] [place] [phone] Luis Carrion M.B.B.S. [address] [place] [phone] 10/01/2023 9:30 AM CDT Comprehensive Visit Department of Cardiovascular Diseases in [place], [place] 701 [place] [phone] Nikko Dey M.D. 701 [place] [phone] Discharge Disposition: Home or Self Care 10/27/2023 2:25 PM CDT Appointment Department of Cardiovascular Diseases in [place], [place] [address] [place] [address] Clover Delaney M.D. 701 [place] [phone] Discharge Disposition: Home or Self Care documented as of this encounter Visit Diagnoses Not on filedocumented in this encounter Additional Health Concerns Assessment Noted Time PHQ-9 Depression Total Score: 4 06/06/19 23 2:04 PM MOTOR CARRIER INSPECTOR documented as of this encounter Care Teams Parts Picker Relationship Specialty Start Date End Date Clover Delaney M.D. [address] [place] [phone] PCP - General Internal Medicine 11/23/17 documented as of this encounter
--- OUTSIDE RECORDS SUMMARY | 2023-09-06 06:15 | XMS_ITS | Encounter Summary ---
Author Name Unknown Organization [facility] Address [address] [place] [address] Care Team Providers Care Aircraft Engine Dismantler Name Role Phone Clover Delaney M.D. 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 [address] [place] [address] [facility] Region Referral ID Status Reason Start Date Expiration Date V isits Requested Visits Authorized [id number] Authorized 08/20/2023 02/18/2025 1 1 Encounter Details Date Type Department Care Team (Late st Contact Info) Description 08/20/2023 Orders Only [facility] [address] [place] [phone] Barbara Diane, Pharm.D., R.Ph., [facility] [address] [place] [address] Diabetes Mellitus Type 2 With Proliferative Diabetic [...] How often do you attend chur or caodaism services? Never 07/28/2022 Do you [...] Answer Date Recorded PHQ-2 Score 2 05/28/2023 [facility] of Occupat ional [...] Assigned at Male 05/13/2021 10:11 AM MANAGER LEARNING Gender Identity Male 11/02/2017 7:22 PM CDT Sexual Orientation Straight 11/02/2017 7: 22 PM CDT documented as of this encounter Plan of Treatment Upcoming Encounters Date Type Department Care Team (Latest Contact Info) Description 09/08/2023 10:00 AM CDT Appointment Department of Laboratory Medicine in [place] [address] [place] [address] Sera Casiano M.D., Ph.D. [address] [place] [phone] 09/08/2023 10:10 AM CDT Appointment Department of Laboratory Medicine in [place] [address] [place] [address] Sera Casiano M.D., Ph.D. [address] [place] [phone] 09/08/2023 2:00 PM CDT Virtual Visit Department of Family Medicine, [facility], in [address] [phone] Clover Delaney M.D. [address] [place] [phone] Discharge Disposition: Home or Self Care 09/10/2023 10:45 AM CDT Clinical Communication Virtual Review in [place], [place] 200 [place] [address] 09/10/2023 2:30 PM CDT Ancillary Procedure Department of Cardiovascular Diseases in [address] [phone] Clover Delaney M.D. 701 [place] [phone] Discharge Disposition: Home or Self Care 09/14/2023 9:30 AM CDT Comprehensive Visit Division of Pulmonary Medicine in [place], [place] [address] [place] [address] Luis Carrion M.B.B.S. [address] [place] [phone] 10/01/2023 9:30 AM CDT Comprehensive Visit Department of Cardiovascular Diseases in [address] [address] Nikko Dey M.D. [address] [place] [phone] Discharge Disposition: Home or Self Care 10/27/2023 2:25 PM CDT Appointment Department of Cardiovascular Diseases in [place], [place] [address] [place] [address] Clover Delaney M.D. 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 701 [place] [phone] PCP - General Internal Medicine 11/23/17 documented as of this encounter
--- OUTSIDE RECORDS SUMMARY | 2023-09-06 06:15 | XMS_ITS | Encounter Summary ---
Author Name Unknown Organization [facility] Address [address] [place] [address] Care Team Providers Care Over [employer] Horizon Targeting Supervisor Name Role Phone Clover Delaney M.D. Primary Care Provider +1- [phone] Reason for Visit * Reason Comments Med Refill Encounter Details Date Type Department Care Team (Late st Contact Info) Description 08/21/2023 Refill Department of Community Internal Medicine in [address] [place] [phone] Clover Delaney M.D. [address] [place] [address] Med Refill Social History Tobacco [...] Answer Date Recorded PHQ-2 Score 2 05/28/2023 [facility] [place] of Occupat ional Health - Occupational Stress [...] Sex Assigned at Male 05/13/2021 10:11 AM COMMUNITY FACILITATOR Gender Identity Male 11/02/2017 7:22 PM CDT Sexual Orientation Straight 11/02/2017 7: 22 PM CDT documented as of this encounter Miscellaneous Notes * Telephone Encounter - Glendy Leggett - 08/21/2023 12:02 PM CDT RX for 8 each was escribed 08/18/23 to [facility] in [place] documented in this encounter Plan of Treatment Upcoming Encounters Date Type Department Care Team (Latest Contact Info) Description 09/08/2023 10:00 AM CDT Appointment Department of Laboratory Medicine in [place] [address] [place] [address] Sera Casiano M.D., Ph.D. [address] [place] [phone] 09/08/2023 10:10 AM CDT Appointment Department of Laboratory Medicine in [place] [address] [place] [address] Sera Casiano M.D., Ph.D. [address] [place] [phone] 09/08/2023 2:00 PM CDT Virtual Visit Department of Family Medicine, [facility], in [address] [phone] Clover Delaney M.D. [address] [place] [phone] Discharge Disposition: Home or Self Care 09/10/2023 10:45 AM CDT Clinical Communication Virtual Review in [address] [phone] 09/10/2023 2:30 PM CDT Ancillary Procedure Department of Cardiovascular Diseases in [address] [phone] Clover Delaney M.D. [address] [place] [phone] Discharge Disposition: Home or Self Care 09/14/2023 9:30 AM CDT Comprehensive Visit Division of Pulmonary Medicine in [place], [place] [address] [place] [address] Luis Carrion M.B.BJosé LuisS. [address] [place] [address] 10/01/2023 9:30 AM CDT Comprehensive Visit Department of Cardiovascular Diseases in [address] [phone] Nikko Dey M.D. [address] [place] [phone] Discharge Disposition: Home or Self Care 10/27/2023 2:25 PM CDT Appointment Department of Cardiovascular Diseases in [place], [place] [address] [place] [address] Clover Delaney M.D. 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 [address] [place] [phone] PCP - General Internal Medicine 11/23/17 documented as of this encounter
--- OUTSIDE RECORDS SUMMARY | 2023-09-06 06:15 | XMS_ITS | Encounter Summary ---
Author Name Unknown Organization [facility] Address [address] [place] [address] Care Team Providers Care Transportation Driver Name Role Phone Clover Delaney M.D. Primary Care Provider [phone]- [phone] Encounter Details Date Type Department Care Team (Latest Contact Info) Description 08/20/2023 3:00 PM CDT - 08/20/2023 3:06 PM CDT Hospital Encounter Department of Laboratory Medicine in [address] [place] [address] Clover Delaney M.D. [address] [place] [address] Atrial Fibrillation Unspecified (HCC); Hypertensive Chronic Kidney [...] often do you attend chur ch or rastafari services? Never 07/28/2022 Do you belong to [...] Date Recorded PHQ-2 Score 2 05/28/2023 [facility] [...] Sex Assigned at Male 05/13/2021 10:11 AM HORSE BREEDER Gender Identity Male 11/02/2017 7:22 PM CDT [...] INJECT ONCE DAILY 100 each 3 05/08/2023 cholecalciferol (VITAMIN D3) 50 mcg (2,000 Unit) tablet Take 50 mcg by mouth daily. cloNIDine (CATAPRES) 0.2 mg tablet Take 1 tablet (0.2 mg total) by mouth 2 (two) times a day. 180 tablet 3 08/05/2023 08/04/2024 cyanocobalamin (VITAMIN B12) 1,000 mcg tablet Take 1,000 mcg by mouth daily. DME CPAPIndications:Obstruct ysabel Sleep Apnea Adult DME Order 1 each 08/27/2021 doxazosin (CARDURA) 4 mg tablet Take 1 tablet (4 mg total) by mouth daily. 90 tablet 3 06/26/2023 06/25/2024 Eliquis 2.5 mg tablet Take 1 tablet by mouth 2 (two) times a day. 08/16/2023 FLUoxetine (PROzac) 10 mg capsule Take 1 capsule (10 mg total) by mouth daily. 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 1 each 08/18/2023 irbesartan (AVAPRO) 75 mg tablet Take 1 tablet (75 mg total) by mouth daily. 90 tablet 3 07/13/2023 iron,carbonyl-vitamin C (VITRON-C) 65 mg iron- [address] tablet Take 65 mg of iron by mouth daily. Do not crush or chew. loperamide (IMODIUM A-D) 2 mg tablet Take 2 mg by mouth as needed. miscellaneous medical supply [facility] CP[place] Supp[place] See Instructions, CPAP machine, mask 1 ea x 4 refills, headgear 1 ea x 2 refills, tubing 1 ea x 4 refills, filters 2 ea per month, tub 1 ea x 2 refills, mask seal 1 ea x 2 refills DX G47.33, length of need 99, 1 each, 0 Refill(s) 10/20/2016 [facility] Head Gear for CPAP Machine See Instructions, fax to patient at [phone], 1 each 01/17/2014 MULTIVITAMIN ORAL Daily Multiple [...] 6 mL 3 09/03/2023 09/02/2024 tirzepatide (Mounjaro) 7.5 mg/0.5 mL pen injector injectionIndications:Mor bid Obesity (HCC) Inject 0.5 mL (7.5 mg total) under the skin every 7 (seven) days for 4 doses. 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 8 each 08/18/2023 08/28/2023 torsemide (DEMADEX) 20 mg tablet Take 3 tablets (60 mg total) by mouth daily. 270 tablet 3 08/05/2023 08/28/2023 documented as of this encounter Plan of Treatment Upcoming Encounters Date Type Department Care Team (Latest Contact Info) Description 09/08/2023 10:00 AM CDT Appointment Department of Laboratory Medicine in [place] [address] [place] [address] Sera Casiano M.D., Ph.D. [address] [place] [phone] 09/08/2023 10:10 AM CDT Appointment Department of Laboratory Medicine in [place] [address] [place] [address] Sera Casiano M.D., Ph.D. [address] [place] [phone] 09/08/2023 2:00 PM CDT Virtual Visit Department of Family Medicine, [facility], in [address] [phone] Clover Delaney M.D. [address] [place] [phone] Discharge Disposition: Home or Self Care 09/10/2023 10:45 AM CDT Clinical Communication Virtual Review in [place], [place] [address] [place] [address] 09/10/2023 2:30 PM CDT Ancillary Procedure Department of Cardiovascular Diseases in [address] [phone] Clover Delaney M.D. [address] [place] [phone] Discharge Disposition: Home or Self Care 09/14/2023 9:30 AM CDT Comprehensive Visit Division of Pulmonary Medicine in [place], [place] [address] [place] [phone] Luis Carrion M.B.B.S. [address] [place] [phone] 10/01/2023 9:30 AM CDT Comprehensive Visit Department of Cardiovascular Diseases in [place], [place] [address] [place] [phone] Nikko Dey M.D. [address] [place] [phone] Discharge Disposition: Home or Self Care 10/27/2023 2:25 PM CDT Appointment Department of Cardiovascular Diseases in [place], [place] [address] [place] [phone] Clover Delaney M.D. [address] [place] [phone] Discharge Disposition: Home or Self Care documented as of this encounter Procedures Procedure Name Priority Date/Time Associated Diagnosis Comments THYROID FUNCTION CASCADE, S Routine 08/20/2023 3:17 [...] Disease, Chronic Kidney Disease Stage 5 (HCC) documented in this encounter Results * Magnesium (08/20/2023 3:17 PM CDT) Magnesium, P 2.0 1.7 - 2.3 mg/dL 08/20/2023 7:37 PM CDT [facility] Blood (Blood, Venous) 08/20/2023 3:17 PM CDT 08/20/2023 7:00 PM CDT Clover Delaney M.D. LAB BLOOD ADD-ON [facility] [address] [place] [address], [facility] in [address] [phone] * Thyroid Function [place] (08/20/2023 3:17 PM CDT) TSH, Sensitive 2.7 0.3 - 4.2 mIU/L 08/20/2023 8:07 PM CDT [facility] Blood (Blood, Venous) 08/20/2023 3:17 PM CDT 08/20/2023 7:01 PM CDT Clover Delaney M.D. LAB BLOOD ADD-ON [facility] [address] [place] [address], [facility] in [place] [address] [place] [address] * (ABNORMAL) Comprehensive Metabolic Panel (08/20/2023 3:17 PM CDT) Potassium, P 4.0 3.6 - 5.2 mmol/L [...] PM CDT 08/20/2023 7:00 PM CDT Clover Delaney M.D. LAB BLOOD ADD-ON [facility] 701 [place] [address], [facility] in [place] [address] [place] [address] * (ABNORMAL) CBC without Differential (08/20/2023 3:17 [...] PM CDT 08/20/2023 7:01 PM CDT Clover Delaney M.D. LAB BLOOD ADD-ON [facility] [address] [place] [address], [facility] in [place] [address] [place] [address] documented in this encounter Visit Diagnoses Diagnosis Atrial Fibrillation Unspecified (HCC) Hypertensive Chronic Kidney Disease With Stage 5 Chronic Kidney Disease Or End Stage Renal Disease, Chronic Kidney Disease Stage 5 (HCC) documented in this encounter Additional Health Concerns Assessment Noted Time PHQ-9 Depression Total Score: 4 06/06/19 23 2:04 PM HORSE BREEDER documented as of this encounter Care Teams Transportation Driver Relationship Specialty Start Date End Date Clover Delaney M.D. [address] [facility] [phone] PCP - General Internal Medicine 11/23/17 documented as of this encounter
--- OUTSIDE RECORDS SUMMARY | 2023-09-06 06:15 | XMS_ITS | Encounter Summary ---
Author Name Unknown Organization [facility] Address [address] [place] [address] Care Team Providers Care Laborer Yard Name Role Phone Clover Delaney M.D. Primary Care Provider +1- [phone] Encounter Details Date Type Department Care Team (Late st Contact Info) Description 08/19/2023 Orders Only Division of Endocrinology in [place], [place] [address] [place] [phone] Cammy Silva M.D. [address] [place] [phone] Social History Tobacco Use Types Packs/Day Years Used Date Smoking Tobacco: Former Cigarettes 0 1961 - 12/26/1980 Passive Smoke Exposure: Never Smokeless Tobacco: Never Alcohol Use Standard Drinks/Week Comments Yes 0 (1 standard drink = 0.6 oz pur e alcohol) Maybe one drink per month [facility] Utilities Answer Date Recorded In the past 12 months has e electric, gas, oil, or water company threatened to shut off services in your [...] Answer Date Recorded PHQ-2 Score 2 05/28/2023 [facility] of Occupat ional Health - Occupational Stress [...] your living situation today? I have a [facility] place to live 08/28/2023 Education Answer Date Recorded What is the highest level of school you have completed or the highest degree you have received? Professional school degree (e.g., , DDS, DVM, NACHO) 10/10/2020 Sex and Gender Information Value Date Recorded Sex Assigned at Male 05/13/2021 10:11 AM EDUCATION TRAINER Gender Identity Male 11/02/2017 7:22 PM CDT Sexual Orientation Straight 11/02/2017 7: 22 PM CDT documented as of this encounter Plan of Treatment Upcoming Encounters Date Type Department Care Team (Latest Contact Info) Description 09/08/2023 10:00 AM CDT Appointment Department of Laboratory Medicine in [address] [place] [address] Sera Casiano M.D., Ph.D. [address] [place] [phone] 09/08/2023 10:10 AM CDT Appointment Department of Laboratory Medicine in [address] [place] [address] Sera Casiano M.D., Ph.D. [address] [place] [phone] 09/08/2023 2:00 PM CDT Virtual Visit Department of Family Medicine, [facility], in [address] [phone] Clover Delaney M.D. [address] [place] [phone] Discharge Disposition: Home or Self Care 09/10/2023 10:45 AM CDT Clinical Communication Virtual Review in [place], [place] 200 [place] [address] 09/10/2023 2:30 PM CDT Ancillary Procedure Department of Cardiovascular Diseases in [address] [phone] Clover Delaney M.D. [address] [place] [phone] Discharge Disposition: Home or Self Care 09/14/2023 9:30 AM CDT Comprehensive Visit Division of Pulmonary Medicine in [place], [place] [address] [place] [phone] Luis Carrion M.B.B.S. [address] [place] [phone] 10/01/2023 9:30 AM CDT Comprehensive Visit Department of Cardiovascular Diseases in [place], [place] [address] [place] [phone] Nikko Dey M.D. [address] [place] [phone] Discharge Disposition: Home or Self Care 10/27/2023 2:25 PM CDT Appointment Department of Cardiovascular Diseases in [place], [place] [address] [place] [address] Clover Delaney M.D. [address] [place] [phone] Discharge Disposition: Home or Self Care documented as of this encounter Visit Diagnoses Not on filedocumented in this encounter Additional Health Concerns Assessment Noted Time PHQ-9 Depression Total Score: 4 06/06/19 23 2:04 PM EDUCATION TRAINER documented as of this encounter Care Teams Laborer Yard Relationship Specialty Start Date End Date Clover Delaney M.D. [address] [place] [phone] PCP - General Internal Medicine 11/23/17 documented as of this encounter
--- OUTSIDE RECORDS SUMMARY | 2023-09-06 06:15 | XMS_ITS | Encounter Summary ---
Author Name Unknown Organization [facility] Address [address] [place] [address] Care Team Providers Care Lodging House Keeper Name Role Phone Clover Delaney M.D. Primary Care Provider +1- [phone] Reason for Referral * Outpatient (Routine) - Authorized Specialty Diagnoses / Procedures Referred By Yenny hunter Referred To Contact Diagnoses Atrial Fibrillation Unspecified (HCC) Hypertensive Chronic Kidney Disease With Stage 5 Chronic Kidney Disease Or End Stage Renal Disease, Chronic Kidney Disease Stage 5 (HCC) Procedures Echo Transthoracic (TTE) Clover Delaney M.D. [address] [place] [address] [facility] Referral ID Status Reason Start Date Expiration Date V isits Requested Visits Authorized [id number] Authorized 08/19/2023 08/18/2024 1 1 * Outpatient (Routine) - Authorized Specialty Diagnoses / Procedures Referred By Yenny hunter Referred To Contact Diagnoses Atrial Fibrillation Unspecified (HCC) Hypertensive Chronic Kidney Disease With Stage 5 Chronic Kidney Disease Or End Stage Renal Disease, Chronic Kidney Disease Stage 5 (HCC) Procedures ECG Heart rhythm monitor (Holter) Clover Delaney M.D. [address] [place] [address] [facility] Region Referral ID Status Reason Start Date Expiration Date V isits Requested Visits Authorized [id number] Authorized 08/19/2023 08/18/2024 1 1 * Outpatient (Routine) - Closed Specialty Diagnoses / Procedures Referred By Contac t Referred To Contact Diagnoses Atrial Fibrillation Unspecified (HCC) Hypertensive Chronic Kidney Disease With Stage 5 Chronic Kidney Disease Or End Stage Renal Disease, Chronic Kidney Disease Stage 5 (HCC) Procedures ECG 12 Lead Clover Delaney M.D. [address] [place] [address] [facility] Region Referral ID Status Reason Start Date Expiration Date Visits Re quested Visits Authorized [id number] Closed 08/19/2023 08/18/2024 1 1 * Outpatient (Routine) - Closed Specialty Diagnoses / Procedures Referred By Contac t Referred To Contact Diagnoses Atrial Fibrillation Unspecified (HCC) Hypertensive Chronic Kidney Disease With Stage 5 Chronic Kidney Disease Or End Stage Renal Disease, Chronic Kidney Disease Stage 5 (HCC) Procedures DX Chest AP or PA and Lateral 2 Views Clover Delaney M.D. [address] [place] [address] [facility] Region Referral ID Status Reason Start Date Expiration Date Visits Re quested Visits Authorized [id number] Closed 08/19/2023 08/18/2024 1 1 Encounter Details Date Type Department Care Team (Late st Contact Info) Description 08/19/2023 Orders Only Department of Community Internal Medicine in [address] [place] [address] Clover Delaney M.D. [address] [place] [phone] Atrial Fibrillation Unspecified (HCC) (Primary Dx); Hypertensive Chronic Kidney Disease With Stage 5 Chronic Kidney Disease Or End Stage Renal Disease, Chronic Kidney Disease Stage 5 (HCC) Social History Tobacco Use Types Packs/Day Years Used Date Smoking Tobacco: Former Cigarettes 0 1961 - 12/26/1980 Passive Smoke Exposure: Never Smokeless Tobacco: Never Alcohol Use Standard Drinks/Week Comments Yes 0 (1 standard drink = 0.6 oz pur e alcohol) Maybe one drink per month [facility] [employer] Answer Date Recorded In the past 12 months has e electric, gas, oil, or water [employer] threatened to shut off services in your [...] Recorded PHQ-2 Score 2 05/28/2023 [facility] [place] of Occupat ional Health - Occupational Stress [...] your living situation today? I have a [facility] place to live 08/28/2023 Education Answer Date Recorded What is the highest level of school you have completed or the highest degree you have received? Professional school degree (e.g., MD, MICKIS, DVM, NACHO) 10/10/2020 Sex and Gender Information Value Date Recorded Sex Assigned at Male 05/13/2021 10:11 AM TWITCHELL OPERATOR Gender Identity Male 11/02/2017 7:22 PM CDT Sexual Orientation Straight 11/02/2017 7: 22 PM CDT documented as of this encounter Plan of Treatment Upcoming Encounters Date Type Department Care Team (Latest Contact Info) Description 09/08/2023 10:00 AM CDT Appointment Department of Laboratory Medicine in [place] [address] [place] [address] Sera Casiano M.D., Ph.D. [address] [place] [phone] 09/08/2023 10:10 AM CDT Appointment Department of Laboratory Medicine in [place] [address] [place] [address] Sera Casiano M.D., Ph.D. [address] [place] [phone] 09/08/2023 2:00 PM CDT Virtual Visit Department of Family Medicine, [facility], in [address] [phone] Clover Delaney M.D. [address] [place] [phone] Discharge Disposition: Home or Self Care 09/10/2023 10:45 AM CDT Clinical Communication Virtual Review in [place], [place] 200 [place] [address] 09/10/2023 2:30 PM CDT Ancillary Procedure Department of Cardiovascular Diseases in [address] [phone] Clover Delaney M.D. [address] [place] [phone] Discharge Disposition: Home or Self Care 09/14/2023 9:30 AM CDT Comprehensive Visit Division of Pulmonary Medicine in [place], [place] [address] [place] [phone] Luis Carrion M.B.BJosé LuisS. [address] [place] [phone] 10/01/2023 9:30 AM CDT Comprehensive Visit Department of Cardiovascular Diseases in [place], [place] [address] [place] [phone] Nikko Dey M.D. [address] [place] [phone] Discharge Disposition: Home or Self Care 10/27/2023 2:25 PM CDT Appointment Department of Cardiovascular Diseases in [place], [place] [address] [place] [phone] Clover Delaney M.D. [address] [place] [phone] Discharge Disposition: Home or Self Care Scheduled Orders Name Type Priority Associated Diagnoses Orde r Schedule ECG Heart rhythm monitor (Holter) Cardiac Services Routine Atrial Fibrillation Unspecified (HCC) Hypertensive Chronic Kidney Disease With Stage 5 Chronic Kidney Disease Or End Stage Renal Disease, Chronic Kidney Disease Stage 5 (HCC) Expected: 08/19/2023, Expires: 11/17/2024 Echo Transthoracic (TTE) Echocardiography Routine Atrial Fibrillation Unspecified (HCC) Hypertensive Chronic Kidney Disease With Stage 5 Chronic Kidney Disease Or End Stage Renal Disease, Chronic Kidney Disease Stage 5 (HCC) Expected: 08/19/2023, Expires: 11/17/2024 Home Overnight Oximetry PFT Routine Atrial Fibrillation Unspecified (HCC) Hypertensive Chronic Kidney Disease With Stage 5 Chronic Kidney Disease Or End Stage Renal Disease, Chronic Kidney Disease Stage 5 (HCC) Expected: 08/19/2023, Expires: 11/17/2024 documented as of this encounter Results * DX Chest AP or PA and [...] insize. Stable mediastinal contours. Comparison 04/30/2018. [facility]G PROCEDURES * ECG 12 Lead (08/20/2023 3:30 PM CDT) Ventricular Rate ECG/Min 50 BPM MUSE QRSD Interval 102 ms MUSE QT Interval 472 ms MUSE QTC Interval 430 ms MUSE R Spiro -12 degrees MUSE T Wave Spiro 128 degrees MUSE 08/20/2023 3:30 PM CDT 08/20/2023 3:49 PM CDT Impressions MUSE - 08/20/2023 3:49 PM CDT Atrial fibrillation with slow ventricular response Moderate voltage criteria for LVH, may be normal variant T wave abnormality, consider lateral ischemia Nonspecific ST abnormality When compared with ECG of 01-Dec-2017 20:09, Significant changes have occurred Reviewed by SHANITA Bernabe Narrative Procedure Note Akash Meeks M.D., Ph.D. - 08/20/2023 IMPRESSION: Atrial fibrillation with slow ventricular response Moderate voltage criteria for LVH, may be normal variant T wave abnormality, consider lateral ischemia Nonspecific ST abnormality When compared with ECG of 01-Dec-2017 20:09, Significant changes have occurred Reviewed by SHANITA Bernabe Clover Delaney M.D. ECG ORDERABLES MUSE NA * Magnesium (08/20/2023 3:17 PM CDT) Magnesium, P 2.0 1.7 - 2.3 mg/dL 08/20/2023 7:37 PM CDT [facility] Blood (Blood, Venous) 08/20/2023 3:17 PM CDT 08/20/2023 7:00 PM CDT Clover Delaney M.D. LAB BLOOD ADD-ON Performing Organization Address City/[facility]/ZIP Co de Phone Number [facility] [address] [place] [phone], [facility] in [place] [address] [place] [phone] * Thyroid Function [place] (08/20/2023 3:17 PM CDT) TSH, Sensitive 2.7 0.3 - 4.2 mIU/L 08/20/2023 8:07 PM CDT [facility] Blood (Blood, Venous) 08/20/2023 3:17 PM CDT 08/20/2023 7:01 PM CDT Clover Delaney M.D. LAB BLOOD ADD-ON [facility] [address] [place] [address], [facility] in [place] [address] [place] [address] * (ABNORMAL) Comprehensive Metabolic Panel (08/20/2023 3:17 [...] CDT Clover Delaney M.D. LAB BLOOD ADD-ON [facility] [address] [place] [address], [facility] in [place] [address] [place] [address] * (ABNORMAL) CBC without Differential (08/20/2023 3:17 [...] CDT Clover Delaney M.D. LAB BLOOD ADD-ON [facility] [address] [place] [address], [facility] in [place] [address] [place] [phone] documented in this encounter Visit Diagnoses Diagnosis Atrial Fibrillation Unspecified (HCC)- Primary Hypertensive Chronic Kidney Disease With Stage 5 Chronic Kidney Disease Or End Stage Renal Disease, Chronic Kidney Disease Stage 5 (HCC) Atrial Fibrillation Unspecified (HCC) Hypertensive Chronic Kidney Disease With Stage 5 Chronic Kidney Disease Or End Stage Renal Disease, Chronic Kidney Disease Stage 5 (HCC) Atrial Fibrillation Unspecified (HCC) Hypertensive Chronic Kidney Disease With Stage 5 Chronic Kidney Disease Or End Stage Renal Disease, Chronic Kidney Disease Stage 5 (HCC) documented in this encounter Additional Health Concerns Assessment Noted Time PHQ-9 Depression Total Score: 4 06/06/19 23 2:04 PM TWITCHELL OPERATOR documented as of this encounter Care Teams Lodging House Keeper Relationship Specialty Start Date End Date Clover Delaney M.D. [address] [place] [phone] PCP - General Internal Medicine 11/23/17 documented as of this encounter
--- OUTSIDE RECORDS SUMMARY | 2023-09-06 06:15 | XMS_ITS | Encounter Summary ---
Author Name Unknown Organization [facility] Address [address] [place] [address] Care Team Providers Care Dish Machine Operator Name Role Phone Clover Delaney M.D. Primary Care Provider [phone]- [phone] Reason for Referral * Outpatient (Routine) - Closed Specialty Diagnoses / Procedures Referred By Yenny hunter Referred To Contact Diagnoses Atrial Fibrillation Unspecified (HCC) Hypertensive Chronic Kidney Disease With Stage 5 Chronic Kidney Disease Or End Stage Renal Disease, Chronic Kidney Disease Stage 5 (HCC) Procedures DX Chest AP or PA and Lateral 2 Views Clover Delaney M.D. [address] [place] [address] [facility] Region Referral ID Status Reason Start Date Expiration Date Visits Re quested Visits Authorized [id number] Closed 08/19/2023 08/18/2024 1 1 Reason for Visit * Outpatient (Routine) - Closed Specialty Diagnoses / Procedures Referred By Contanthony hunter Referred To Contact Diagnoses Atrial Fibrillation Unspecified (HCC) Hypertensive Chronic Kidney Disease With Stage 5 Chronic Kidney Disease Or End Stage Renal Disease, Chronic Kidney Disease Stage 5 (HCC) Procedures DX Chest AP or PA and Lateral 2 Views Clover Delaney M.D. [address] [place] [address] [facility] Region Referral ID Status Reason Start Date Expiration Date Visits Re quested Visits Authorized [id number] Closed 08/19/2023 08/18/2024 1 1 Encounter Details Date Type Department Care Team (Latest Contact Info) Description 08/20/2023 3:08 PM CDT - 08/20/2023 11:59 PM CDT Hospital Encounter Department of Radiology in [address] [place] [phone] Clover Delaney M.D. 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 miscellaneous medical supply [facility] [...] each, 0 Refill(s) 10/20/2016 miscellaneous medical supply [facility] Head Gear for CPAP Machine See Instructions, fax to patient at [phone], 1 each 01/17/2014 MULTIVITAMIN ORAL Daily Multiple Vitamins See Instructions, Take 1 tablet by mouth daily. 07/23/2013 ONETOUCH DELICA LANCETS 33 gauge [facility] 3 08/02/2018 OneTouch Ultra Test StripsIndications:Diabet es [...] CDT Appointment Department of Laboratory Medicine in [place], [place] [address] [place] [address] Sera Casiano M.D., Ph.D. [address] [place] [phone] 09/08/2023 10:10 AM CDT Appointment Department of Laboratory Medicine in [place], [place] [address] [place] [phone] Sera Casiano M.D., Ph.D. [address] [place] [phone] 09/08/2023 2:00 PM CDT Virtual Visit Department of Family Medicine, [facility], in [address] [phone] Clover Delaney M.D. [address] [place] [phone] Discharge Disposition: Home or Self Care 09/10/2023 10:45 AM CDT Clinical Communication Virtual Review in [place], [place] [address] [place] [address] 09/10/2023 2:30 PM CDT Ancillary Procedure Department of Cardiovascular Diseases in [address] [address] Clover Delaney M.D. [address] [place] [phone] Discharge Disposition: Home or Self Care 09/14/2023 9:30 AM CDT Comprehensive Visit Division of Pulmonary Medicine in [place], [place] [address] [place] [phone] Luis Carrion M.B.B.S. [address] [place] [address] 10/01/2023 9:30 AM CDT Comprehensive Visit Department of Cardiovascular Diseases in [place], [place] [address] [place] [phone] Nikko Dey M.D. [address] [place] [phone] Discharge Disposition: Home or Self Care 10/27/2023 2:25 PM CDT Appointment Department of Cardiovascular Diseases in [place], [place] [address] [place] [address] Clover Delaney M.D. [address] [place] [phone] Discharge Disposition: Home or Self Care documented as of this encounter Procedures Procedure Name Priority Date/Time Associated Diagnosis Comments DX CHEST AP OR PA AND LATERAL 2 VIEWS RAD - Routine (most inpatients and all outpatients) 08/20/2023 3:39 PM CDT Atrial Fibrillation Unspecified (HCC) Hypertensive Chronic Kidney Disease With Stage 5 Chronic Kidney Disease Or End Stage Renal Disease, Chronic Kidney Disease Stage 5 (HCC) documented in this encounter Results * DX Chest AP [...] insize. Stable mediastinal contours. Comparison 04/30/2018. Clover Delaney M.D. IMG DIAGNOSTIC IMAG ING PROCEDURES documented in this encounter Visit Diagnoses Diagnosis Atrial Fibrillation Unspecified (HCC) Hypertensive Chronic Kidney Disease With Stage 5 Chronic Kidney Disease Or End Stage Renal Disease, Chronic Kidney Disease Stage 5 (HCC) documented in this encounter Additional Health Concerns Assessment Noted Time PHQ-9 Depression Total Score: 4 06/06/19 23 2:04 PM HEAD BATCHER documented as of this encounter Care Teams Dish Machine Operator Relationship Specialty Start Date End Date Clover Delaney M.D. [address] [place] [phone] PCP - General Internal Medicine 11/23/17 documented as of this encounter
--- OUTSIDE RECORDS SUMMARY | 2023-09-06 06:15 | XMS_ITS | Encounter Summary ---
Author Name Unknown Organization [facility] Address [address] [place] [address] Care Team Providers Care Skein Washer Name Role Phone Clover Delaney M.D. Primary Care Provider [phone]- [phone] Reason for Referral * Outpatient (Routine) - Closed Specialty Diagnoses / Procedures Referred By Yenny hunter Referred To Contact Diagnoses Atrial Fibrillation Unspecified (HCC) Hypertensive Chronic Kidney Disease With Stage 5 Chronic Kidney Disease Or End Stage Renal Disease, Chronic Kidney Disease Stage 5 (HCC) Procedures ECG 12 Lead Clover Delaney M.D. [address] [place] [address] [facility] Region Referral ID Status Reason Start Date Expiration Date Visits Re quested Visits Authorized [id number] Closed 08/19/2023 08/18/2024 1 1 Reason for Visit * Outpatient (Routine) - Closed Specialty Diagnoses / Procedures Referred By Yenny hunter Referred To Contact Diagnoses Atrial Fibrillation Unspecified (HCC) Hypertensive Chronic Kidney Disease With Stage 5 Chronic Kidney Disease Or End Stage Renal Disease, Chronic Kidney Disease Stage 5 (HCC) Procedures ECG 12 Lead Clover Delaney M.D. [address] [place] [phone] [facility] Region Referral ID Status Reason Start Date Expiration Date Visits Re quested Visits Authorized [id number] Closed 08/19/2023 08/18/2024 1 1 Encounter Details Date Type Department Care Team (Latest Contact Info) Description 08/20/2023 3:07 PM CDT Hospital Encounter Department of Radiology in [place], [place] [address] [place] [phone] Clover Delaney M.D. [address] [place] [phone] Atrial Fibrillation Unspecified (HCC); Hypertensive [...] week 07/28/2022 How often do you attend [facility]? 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 miscellaneous medical supply [facility] CPAP Supplies See Instructions, CPAP machine, mask 1 ea x 4 refills, headgear 1 ea x 2 refills, tubing 1 ea x 4 refills, filters 2 ea per month, tub 1 ea x 2 refills, mask seal 1 ea x 2 refills DX G47.33, length of need 99, 1 each, 0 Refill(s) 10/20/2016 miscellaneous medical supply [facility] Head Gear for CPAP Machine See Instructions, fax to patient at [phone], 1 each 01/17/2014 MULTIVITAMIN ORAL Daily Multiple Vitamins See Instructions, Take 1 tablet by mouth daily. 07/23/2013 ONETOUCH DELICA LANCETS 33 gauge [facility] 3 08/02/2018 OneTouch Ultra Test [...] CDT Appointment Department of Laboratory Medicine in [place], [place] [address] [place] [address] Sera Casiano M.D., Ph.D. [address] [place] [phone] 09/08/2023 10:10 AM CDT Appointment Department of Laboratory Medicine in [place], [place] [address] [place] [address] Sera Casiano M.D., Ph.D. [address] [place] [phone] 09/08/2023 2:00 PM CDT Virtual Visit Department of Family Medicine, [facility], in [address] [phone] Clover Delaney M.D. [address] [place] [phone] Discharge Disposition: Home or Self Care 09/10/2023 10:45 AM CDT Clinical Communication Virtual Review in [place], [place] [address] [place] [address] 09/10/2023 2:30 PM CDT Ancillary Procedure Department of Cardiovascular Diseases in [address] [phone] Colver Delaney M.D. [address] [place] [phone] Discharge Disposition: Home or Self Care 09/14/2023 9:30 AM CDT Comprehensive Visit Division of Pulmonary Medicine in [address] [phone] Luis Carrion M.B.B.S. [address] [place] [phone] 10/01/2023 9:30 AM CDT Comprehensive Visit Department of Cardiovascular Diseases in [address] [phone] Nikko Dey M.D. [address] [place] [phone] Discharge Disposition: Home or Self Care 10/27/2023 2:25 PM CDT Appointment Department of Cardiovascular Diseases in [place], [place] [address] [place] [phone] Clover Delaney M.D. [address] [place] [phone] Discharge Disposition: Home or Self Care documented as of this encounter Procedures Procedure Name Priority Date/Time Associated Diagnosis Comments ECG Routine 08/20/2023 3:30 PM CDT Atrial Fibrillation Unspecified (HCC) Hypertensive Chronic Kidney Disease With Stage 5 Chronic Kidney Disease Or End Stage Renal Disease, Chronic Kidney Disease Stage 5 (HCC) documented in this encounter Results * ECG 12 Lead (08/20/2023 3:30 PM CDT) Ventricular Rate ECG/Min 50 BPM MUSE QRSD Interval 102 ms MUSE QT Interval 472 ms MUSE QTC Interval 430 ms MUSE R [place] -12 degrees MUSE T Wave [place] 128 degrees MUSE 08/20/2023 3:30 PM CDT [...] Clover Delaney M.D. 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 [address] [place] [phone] PCP - General Internal Medicine 11/23/17 documented as of this encounter
--- OUTSIDE RECORDS SUMMARY | 2023-09-06 06:15 | XMS_ITS | Encounter Summary ---
Author Name Unknown Organization [facility] Address [address] [place] [address] Care Team Providers Care Boat Rental Clerk Name Role Phone Clover Macias M.D. 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 [address] [place] [address] [facility] Referral ID Status Reason Start Date Expiration Date V isits Requested Visits Authorized [id number] Authorized 09/01/2023 03/02/2025 1 1 * Outpatient (Routine) - Authorized Specialty Diagnoses / Procedures Referred By Contac t Referred To Contact Diagnoses Atrial Fibrillation Unspecified (HCC) Procedures ECG 12 Lead Clover Macias M.D. [address] [place] [address] [facility] Region Referral ID Status Reason Start Date Expiration Date V isits Requested Visits Authorized [id number] Authorized 08/28/2023 08/27/2024 1 1 Reason for Visit * Reason Comments Weakness - Generalized Encounter Details Date Type Department Care Team (Latest Contact Info) Description 08/28/2023 3:30 PM CDT Office Visit Department of [facility] Internal Medicine in [address] [place] [phone] Clover Macias M.D. [address] [place] [address] Follow Up Exam (Primary Dx); Weakness General; [...] e alcohol) Maybe one drink per month [facility] Utilities Answer Date Recorded In the past 12 months has [facility] W[employer], [employer], oil, or water [employer] threatened to shut off services in your [...] Answer Date Recorded PHQ-2 Score 2 05/28/2023 [facility] of Occupat ional [...] your living situation today? I have [facility] [employer] [facility] to live 08/28/2023 Education Answer Date Recorded What is the highest level of school you have completed or the highest degree you have received? Professional school degree (e.g., MD, DDS, DVM, NACHO) 10/10/2020 Sex and Gender Information Value Date Recorded Sex Assigned at Male 05/13/2021 10:11 AM SEAT MAKER Gender Identity Male 11/02/2017 7:22 PM CDT Sexual Orientation Straight 11/02/2017 7: 22 PM CDT documented as of this encounter Last Filed Vital Signs Vital Sign Reading Time Taken Comments Blood Pressure 112/64 08/28/2023 4:16 PM CDT Pulse 52 08/28/2023 4:16 PM CDT Temperature - - Respiratory Rate - - Oxygen Saturation 93% 08/28/2023 3:24 PM CDT Inhaled Oxygen Concentration - - Weight 148 kg (326 lb 8 oz) 08/28/2023 3:24 PM C DT Height - - Body Mass Index 47.33 07/10/2023 1:33 PM CDT documented in this encounter Patient Instructions * Patient Instructions* Clover Macias M.D. - 08/28/2023 3:30 PM CDT Xylimelts for dry mouth (over the counter) documented in this encounter Progress Notes * Clover Macias M.D. - 08/28/2023 3:30 PM CDT SUBJECTIVE CHIEF COMPLAINT / REASON FOR VISIT Philip Patel is a 77 y.o. male who presents for evaluation of Weakness - Generalized. HISTORY OF PRESENT ILLNESS Patient is here for follow up of chronic conditions and ER visit to [place] 08/15 and was diagnosed with atrial fibrillation with slow ventricular response. He was given Eliquis 2.5mg twice daily and remaining meds were unchanged. He has had more problems with fatigue and weakness and extreme dry mouth since clonidine was increased 08/04 (along with increase in torsemide from 40mg to 60mg daily) by Dr. Can Hyman in nephrology. His blood pressure has been well controlled on this regimen, however. Home blood pressure have been 114-137 systolic in the morning, with pulse rate of 40s at rest and increases to the 50s with activity. He feels better when pulse is higher. Edema has resolved. Has lost 25# on Mounjaro. Has had decreased appetite, dry mouth, mild dysphagia from clonidine. Glucose has been all over the place (eg 250 yesterday) insulin is up to 18u Lantus at night. He is eating 1500kcal.day at the most. The following portions of the patient's history were reviewed and updated as appropriate: allergies, current medications, family history, medical history, social history, surgical history, and problem list. Social History Tobacco Use Smoking status: Former Current packs/day: 0.00 Types: Cigarettes Start date: 1961 Quit date: 12/26/1980 Years since quittin.6 Passive exposure: Never Smokeless tobacco: Never Vaping Use Vaping status: never used Substance Use Topics Alcohol use: Yes Comment: Maybe one drink per month Drug use: No Allergies Allergen Reactions Amlodipine Edema Epinephrine Palpitations Tachycardia Penicillins Itching and Rash Current Outpatient Medications Medication Sig aspirin 81 mg chewable tablet Chew 1 tablet (81 mg total) daily. atorvastatin (LIPITOR) 40 mg tablet Take 1 tablet (40 mg total) by mouth daily. BD Ultra-Fine Josefina Pen Needle 32 gauge x needle USE TO INJECT ONCE DAILY carvediloL (COREG) 12.5 mg tablet take one tablet by mouth twice a day with meals cholecalciferol (VITAMIN D3) 50 mcg (2,000 Unit) tablet Take 50 mcg by mouth daily. cloNIDine (CATAPRES) 0.2 mg tablet Take 1 tablet (0.2 mg total) by mouth 2 (two) times a day. cyanocobalamin (VITAMIN B12) 1,000 mcg tablet Take 1,000 mcg by mouth daily. DME CPAP DME Order doxazosin (CARDURA) 4 mg tablet Take 1 tablet (4 mg total) by mouth daily. Eliquis 2.5 mg tablet Take 1 tablet by mouth 2 (two) times a day. FLUoxetine (PROzac) 10 mg capsule Take 1 capsule (10 mg total) by mouth daily. FreeStyle Brionna 2 [place] 1 each (1 Device total) as directed. FreeStyle Brionna 2 Sensor kit APPLY SENSOR EVERY 14 DAYS. irbesartan (AVAPRO) 75 mg tablet Take 1 tablet (75 mg total) by mouth daily. iron,carbonyl-vitamin C (VITRON-C) 65 mg iron- [address] tablet Take 65 mg of iron by mouth daily. Do not crush or chew. loperamide (IMODIUM A-D) 2 mg tablet Take 2 mg by mouth as needed. miscellaneous medical supply [facility] CPAP Supplies See Instructions, CPAP machine, mask 1 ea x 4 refills, headgear 1 ea x 2 refills, tubing 1 ea x 4 refills, filters 2 ea per month, tub 1 ea x 2 refills, mask seal 1 ea x 2 refills DX G47.33, length of need 99, 1 each, 0 Refill(s) [facility] Head Gear for CPAP Machine See Instructions, fax to patient at [phone], 1 each MULTIVITAMIN ORAL Daily Multiple Vitamins See Instructions, Take 1 tablet by mouth daily. ONETOUCH DELICA LANCETS 33 gauge [facility] OneTouch Ultra Test Strips Use to test once daily. prednisoLONE acetate (PRED FORTE) 1 [...] by mouth 2 (two) times a day. [START ON 09/03/2023] tirzepatide (Mounjaro) 10 mg/0.5 mL pen injector injection Inject 0.5 mL (10 mgtotal) under the skin every 7 (seven) days. tirzepatide (Mounjaro) 7.5 mg/0.5 mL pen injector injection Inject 0.5 mL (7.5 mg total) under the skin every 7 (seven) days for 4 doses. torsemide (DEMADEX) 20 mg tablet Take 3 tablets (60 mg total) by mouth daily. UltiCare Pen Needle 31 gauge x 1/4 needle Use to inject insulin daily tirzepatide (Mounjaro) 2.5 mg/0.5 mL pen injector injection Inject 0.5 mL (2.5 mg total) under the skin every 7 (seven) days for 4 doses. From week 1 to week 4. tirzepatide (Mounjaro) 5 mg/0.5 mL pen injector injection Inject 0.5 mL (5 mg total) under the skinevery 7 (seven) days for 4 doses. OBJECTIVE PHYSICAL EXAMINATION BP (!) 177/73 (BP Location: Left arm, Patient Position: Sitting, Cuff Size: Large) Pulse 66 Wt (!) 148 kg SpO2 93% BMI 47.33 kg/m?? Body mass index is 47.33 kg/m??. BP 112/64 (BP Location: Left arm, Patient Position: Sitting, Cuff Size: Large) (Standing) General: Alert and in no acute distress HEENT: Oral cavity with dry mucosa, impairing speech Neck: Supple without lymphadenopathy, no bruit Respiratory: Effort is easy, lung sounds are clear to auscultation with no wheezes or crackles Cardiovascular: S1 & S2 are present, bradycardic rate and regular rhythm, no murmur, no significant ankle edema Musculoskeletal: Grossly intact, no deformities are noted Skin: Normal color, temperature and moisture, no rashes or lesions are noted Neuro: Face symmetric. Speech and gait normal Psych: Behavior, mood, affect, cognition and insight are all appropriate DIAGNOSTICS Results for orders placed or performed in visit on 08/28/23 ECG 12 Lead Result Value Ref Range Ventricular Rate ECG/Min 43 BPM QRSD Interval 104 ms QT Interval 490 ms QTC Interval 414 ms R Conrath -12 degrees T Wave [place]rath 95 degrees *Note: Due to a large number of results and/or encounters for the requested time period, some results have not been displayed. A complete set of results can be found in Results Review. Lab Results Component Value Date HGBA1C 6.8 (H) 03/30/2023 ASSESSMENT / PLAN #1 Follow Up Exam -Medications reconciled and refilled as needed. Decrease torsemide back to 40mg daily. Maintain clonidine. Decrease carvedilol to 6.25mg twice daily. Report back on BP/HR/symptoms on Thursday or Thursday. -Outstanding results reviewed -Follow up appointment plan reviewed and patient demonstrates good understanding of follow up plan.Cardiology referral still in triage and echo/Holter unable to be scheduled until 6+ weeks from now.Will work on expediting any of this evaluation in order to proceed with his nephrology vascular access. -Questions and concerns addressed -Reviewed reasons for additional follow up assessment #2 Weakness General Likely due to bradycardia. Decrease carvedilol as above. Use walking stick. Continue good nutrition and hydration. Recommend trial of over the counter Xylimelts for dry mouth. #3 Atrial Fibrillation Unspecified (HCC) Slow ventricular response, elevated BNP in ED. Echo and Holter pending, cardiology pending as above. 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 Plan as above. 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 Continue titrating insulin. Will try to pick up attendant Brionna sensors today. #6 Anemia Iron Deficiency #7 Anemia Of Chronic Renal Disease Improved at last labs. Notify us if bleeding is noted as now on DOAC. 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 #9 Cancer Colon Transverse Personal History No current symptoms. Monitor clinically. Colonoscopy due 03/2026. 03/2018 No evidence of metastatic disease, stable colon, diverticulosis on CT 04/09/2020 ([facility] CT, [facility] records) Future colonoscopies: clear liquid diet (no red liquids) 2-3 days prior to beginning colonoscopy preparation. An alternate large-volume preparation should be used 03/2023 1.1cm tubular adenoma with low grade dysplasia. Guidelines repeat 3 years (03/2026--will be>80y) Medications, proper use, and common and severe side effects were reviewed with the patient/caregiver. If new or concerning symptoms develop, patient/caregiver understands to seek medical attention. Patient/caregiver verbalizes understanding and acceptance of this plan of care and denies any further needs at this time. I spent 50 minutes on the date of this visit in record review, coordination of care and face to face or virtual patient care regarding the above chronic conditions. Clover Macias M.D. documented in this encounter Miscellaneous Notes * Addendum Note - Clover Murillo M.S., R.N. - 08/28/2023 3:30 PM CDTAddended by: CLOVER MURILLO on: 09/01/2023 02:45 PM Modules accepted: Orders * Addendum Note - Clover Macias M.D. - 08/28/2023 3:30 PM CDTAddended by: CLOVER MACIAS on: 09/01/2023 05:26 PM Modules accepted: Orders documented in this encounter Plan of Treatment Upcoming Encounters Date Type Department Care Team (Latest Contact Info) Description 09/08/2023 10:00 AM CDT Appointment Department of Laboratory Medicine in [address] [place] [address] Sera Casiano M.D., Ph.D. [address] [place] [address] [place] [phone] 09/08/2023 10:10 AM CDT Appointment Department of Laboratory Medicine in [address] [place] [address] Sera Casiano M.D., Ph.D. [address] [place] [phone] 09/08/2023 2:00 PM CDT Virtual Visit Department of Family Medicine, [facility], in [address] [phone] Clover Macias M.D. [address] [place] [phone] Discharge Disposition: Home or Self Care 09/10/2023 10:45 AM CDT Clinical Communication Virtual Review in [place], [place] 200 [place] [address] 09/10/2023 2:30 PM CDT Ancillary Procedure Department of Cardiovascular Diseases in [address] [phone] Clover Macias M.D. [address] [place] [phone] Discharge Disposition: Home or Self Care 09/14/2023 9:30 AM CDT Comprehensive Visit Division of Pulmonary Medicine in [place], [place] [address] [place] [phone] Luis Carrion M.B.B.S. [address] [place] [phone] 10/01/2023 9:30 AM CDT Comprehensive Visit Department of Cardiovascular Diseases in [address] [place] [phone] Nikko Dey M.D. [address] [place] [phone] Discharge Disposition: Home or Self Care 10/27/2023 2:25 PM CDT Appointment Department of Cardiovascular Diseases in [place], [place] [address] [place] [address] Clover Macias M.D. 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 [address] [place] [address] PCP - General Internal Medicine 11/23/17 documented as of this encounter
--- OUTSIDE RECORDS SUMMARY | 2023-09-06 06:16 | XMS_ITS | Encounter Summary ---
Author Name Unknown Organization [facility] Address [address] [address] Care Team Providers Care Research Methodologist Name Role Phone Clover Delaney M.D. Primary Care Provider [phone]- [phone] Encounter Details Date Type Department Care Team (Late st Contact Info) Description 07/23/2023 Clinical Communication Division of Nephrology and Hypertension in [place], [place] [address] [place] [address] Monica Ferreira RMonster., C.M.S.R.N. [address] [place] [phone] Social History Tobacco Use Types Packs/Day Years [...] Date Recorded PHQ-2 Score 2 05/28/2023 [facility] of Occupat ional Health - Occupational Stress [...] Sex Assigned at Male 05/13/2021 10:11 AM DRYWALL MECHANIC Gender Identity Male 11/02/2017 7:22 PM CDT [...] CDT Appointment Department of Laboratory Medicine in [address] [place] [address] Sera Casiano M.D., Ph.D. [address] [place] [phone] 09/08/2023 10:10 AM CDT Appointment Department of Laboratory Medicine in [place] [address] [place] [address] Sera Casiano M.D., Ph.D. [address] [place] [phone] 09/08/2023 2:00 PM CDT Virtual Visit Department of Family Medicine, [facility] [place] [facility], in [address] [phone] Clover Delaney M.D. [address] [place] [phone] Discharge Disposition: Home or Self Care 09/10/2023 10:45 AM CDT Clinical Communication Virtual Review in [place], [place] 200 [place] [address] 09/10/2023 2:30 PM CDT Ancillary Procedure Department of Cardiovascular Diseases in [address] [phone] Clover Delaney M.D. [address] [place] [phone] Discharge Disposition: Home or Self Care 09/14/2023 9:30 AM CDT Comprehensive Visit Division of Pulmonary Medicine in [place], [place] [address] [place] [phone] Luis Carrion M.B.BJosé LuisS. [address] [place] [phone] 10/01/2023 9:30 AM CDT Comprehensive Visit Department of Cardiovascular Diseases in [address] [phone] Nikko Dey M.D. [address] [place] [phone] Discharge Disposition: Home or Self Care 10/27/2023 2:25 PM CDT Appointment Department of Cardiovascular Diseases in [place], [place] [address] [place] [phone] Clover Delaney M.D. [address] [place] [phone] Discharge Disposition: Home or Self Care documented as of this encounter Visit Diagnoses Not on filedocumented in this encounter Additional Health Concerns Assessment Noted Time PHQ-9 Depression Total Score: 4 06/06/19 23 2:04 PM DRYWALL MECHANIC documented as of this encounter Care Teams Research Methodologist Relationship Specialty Start Date End Date Clover Delaney M.D. [address] [place] [phone] PCP - General Internal Medicine 11/23/17 documented as of this encounter
--- OUTSIDE RECORDS SUMMARY | 2023-09-06 06:16 | XMS_ITS | Encounter Summary ---
Author Name Unknown Organization [facility] Address [address] [place] [address] Care Team Providers Care Youth Program Director Name Role Phone Clover Delaney M.D. Primary Care Provider [phone] Reason for Visit * Reason Comments Med Refill Encounter Details Date Type Department Care Team (Late st Contact Info) Description 08/17/2023 Refill Department of Community Internal Medicine in [address] [place] [phone] Clover Delaney M.D. [address] [place] [address] Med Refill Social History Tobacco [...] Answer Date Recorded PHQ-2 Score 2 05/28/2023 [facility] of Occupat ional Health - Occupational Stress [...] Sex Assigned at Male 05/13/2021 10:11 AM CLERK CHECKER Gender Identity Male 11/02/2017 7:22 PM CDT Sexual Orientation Straight 11/02/2017 7: 22 PM CDT documented as of this encounter Miscellaneous Notes * Telephone Encounter - Laura Cobian - 08/18/2023 8:42 AM CDT Lab Results Component Value Date HGBA1C 6.8 (H) 03/30/2023 Nurse review: Med Refill Team is unable to forward request to provider. Discrepancy: Verification Required. Medication Discontinued. Primary Provider: Clover Delaney M.D. Requested Prescriptions Pending Prescriptions Disp Refills FreeStyle Brionna 2 Sensor kit [Pharmacy Med Name: FreeStyle Brionna 2 Sensor Miscellaneous] 8 each 0 Sig: APPLY SENSOR EVERY 14 DAYS. documented in this encounter Plan of Treatment Upcoming Encounters Date Type Department Care Team (Latest Contact Info) Description 09/08/2023 10:00 AM CDT Appointment Department of Laboratory Medicine in [address] [place] [address] Sera Casiano M.D., Ph.D. [address] [place] [phone] 09/08/2023 10:10 AM CDT Appointment Department of Laboratory Medicine in [place] [address] [place] [address] Sera Casiano M.D., Ph.D. [address] [place] [phone] 09/08/2023 2:00 PM CDT Virtual Visit Department of Family Medicine, [facility], in [address] [phone] Clover Delaney M.D. [address] [place] [phone] Discharge Disposition: Home or Self Care 09/10/2023 10:45 AM CDT Clinical Communication Virtual Review in [place], [place] 200 [place] [address] 09/10/2023 2:30 PM CDT Ancillary Procedure Department of Cardiovascular Diseases in [address] [phone] Clover Delaney M.D. [address] [place] [phone] Discharge Disposition: Home or Self Care 09/14/2023 9:30 AM CDT Comprehensive Visit Division of Pulmonary Medicine in [place], [place] [address] [place] [phone] Luis Carrion M.B.B.S. [address] [place] [phone] 10/01/2023 9:30 AM CDT Comprehensive Visit Department of Cardiovascular Diseases in [address] [phone] Nikko Dey M.D. [address] [place] [phone] Discharge Disposition: Home or Self Care 10/27/2023 2:25 PM CDT Appointment Department of Cardiovascular Diseases in [place], [place] [address] [place] [phone] Clover Delaney M.D. 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 [address] [place] [place] [phone] PCP - General Internal Medicine 11/23/17 documented as of this encounter
--- OUTSIDE RECORDS SUMMARY | 2023-09-06 06:16 | XMS_ITS | Encounter Summary ---
Author Name Unknown Organization [facility] Address [address] [place] [address] Care Team Providers Care Concreter Name Role Phone Clover Delaney M.D. Primary Care Provider +1- [phone] Reason for Visit * Reason Onset Date Comments Bradycardia 08/16/2023 Weakness - Generalized 08/16/2023 Encounter Details Date Type Department Care Team (Late st Contact Info) Description 08/16/2023 Nurse Triage Department of Community Internal Medicine in [address] [place] [phone] Philomena Raya, R.N. Bradycardia; Weakness - Generalized [...] Sex Assigned at Male 05/13/2021 10:11 AM ATHLETIC GEAR CUSTODIAN Gender Identity Male 11/02/2017 7:22 PM CDT [...] minute) Protocols used: Heart Rate and Heartbeat [id number] Care Advice Patient/Caregiver understands and will follow care advice?: Yes, able to teach back Heart Rate and Heartbeat [id number] Philomena Raya R.N. Sun Aug 16, 2023 12:46 PM Care Advice CALL EMS 911 NOW: documented in this encounter Plan of Treatment Upcoming Encounters Date Type Department Care Team (Latest Contact Info) Description 09/08/2023 10:00 AM CDT Appointment Department of Laboratory Medicine in [place], [place] [address] [place] [address] Sera Casiano M.D., Ph.D. [address] [place] [phone] 09/08/2023 10:10 AM CDT Appointment Department of Laboratory Medicine in [place], [place] [address] [place] [place] [address] Sera Casiano M.D., Ph.D. [address] [place] [phone] 09/08/2023 2:00 PM CDT Virtual Visit Department of Family Medicine, [facility], in [address] [phone] Clover Delaney M.D. [address] [place] [phone] Discharge Disposition: Home or Self Care 09/10/2023 10:45 AM CDT Clinical Communication Virtual Review in [place], [place] 200 [place] [address] 09/10/2023 2:30 PM CDT Ancillary Procedure Department of Cardiovascular Diseases in [address] [phone] Clover Delaney M.D. [address] [place] [phone] Discharge Disposition: Home or Self Care 09/14/2023 9:30 AM CDT Comprehensive Visit Division of Pulmonary Medicine in [address] [phone] Luis Carrion M.B.BJosé LuisS. [address] [place] [phone] 10/01/2023 9:30 AM CDT Comprehensive Visit Department of Cardiovascular Diseases in [address] [phone] Nikko Dey M.D. [address] [place] [phone] Discharge Disposition: Home or Self Care 10/27/2023 2:25 PM CDT Appointment Department of Cardiovascular Diseases in [place], [place] [address] [place] [phone] Clover Delaney M.D. [address] [place] [phone] Discharge Disposition: Home or Self Care documented as of this encounter Visit Diagnoses Not on filedocumented in this encounter Additional Health Concerns Assessment Noted Time PHQ-9 Depression Total Score: 4 06/06/19 23 2:04 PM ATHLETIC GEAR CUSTODIAN documented as of this encounter Care Teams Concreter Relationship Specialty Start Date End Date Clover Delaney M.D. [address] [place] [address] PCP - General Internal Medicine 11/23/17 documented as of this encounter
--- OUTSIDE RECORDS SUMMARY | 2023-09-06 06:16 | XMS_ITS | Encounter Summary ---
Author Name Unknown Organization [facility] Address [address] [place] [address] Care Team Providers Care Heel Padder Name Role Phone Clover Delaney M.D. Primary Care Provider +1- [phone] Encounter Details Date Type Department Care Team (Late st Contact Info) Description 07/29/2023 Documentation Division of Nephrology and Hypertension in [place], [place] [address] [place] [address] Kanwal Roberts, RLance [address] [place] [phone] Social History Tobacco Use Types Packs/Day Years [...] How often do you attend chur or sabianism services? Never 07/28/2022 Do you [...] Answer Date Recorded PHQ-2 Score 2 05/28/2023 [facility] - Occupational [...] Sex Assigned at Male 05/13/2021 10:11 AM FOREIGN LEGAL CONSULTANT Gender Identity Male 11/02/2017 7:22 PM [...] dialysis. IMPRESSION/REPORT/PLAN Surgeon: Patient seen by Dr. uKo Plan: Right Brachial cephalic AV fistula with possible subsequent superficialization after AVF matures. Surgery: Is scheduled for 09/03/2023. Checklist: The Checklist for Surgical Patients ([id number]) was given to the patient with the following instructions: Report to [facility] admissions at the time told to you [...] on 08/04 at 3:45 pm at the [facility]. Other: INFORMED CONSENT Patient signed the consent form electronically. documented in this encounter Plan of Treatment Upcoming Encounters Date Type Department Care Team (Latest Contact Info) Description 09/08/2023 10:00 AM CDT Appointment Department of Laboratory Medicine in [place], [place] [address] [address] Sera Casiano M.D., Ph.D. [address] [place] [address] 09/08/2023 10:10 AM CDT Appointment Department of Laboratory Medicine in [place], [place] [address] [address] Sera Casiano M.D., Ph.D. [address] [place] [address] 09/08/2023 2:00 PM CDT Virtual Visit Department of Family Medicine, [facility], in [address] [phone] Clover Delaney M.D. [address] [place] [phone] Discharge Disposition: Home or Self Care 09/10/2023 10:45 AM CDT Clinical Communication Virtual Review in [place], [place] 200 [place] [address] 09/10/2023 2:30 PM CDT Ancillary Procedure Department of Cardiovascular Diseases in [address] [phone] Clover Delaney M.D. [address] [place] [phone] Discharge Disposition: Home or Self Care 09/14/2023 9:30 AM CDT Comprehensive Visit Division of Pulmonary Medicine in [address] [phone] Luis Carrion M.B.BJosé LuisS. [address] [place] [phone] 10/01/2023 9:30 AM CDT Comprehensive Visit Department of Cardiovascular Diseases in [address] [phone] Nikko Dey M.D. [address] [place] [phone] Discharge Disposition: Home or Self Care 10/27/2023 2:25 PM CDT Appointment Department of Cardiovascular Diseases in [place], [place] [address] [place] [phone] Clover Delaney M.D. [address] [place], [place] [phone] [phone] Discharge Disposition: Home or Self Care documented as of this encounter Visit Diagnoses Not on filedocumented in this encounter Additional Health Concerns Assessment Noted Time PHQ-9 Depression Total Score: 4 06/06/19 23 2:04 PM FOREIGN LEGAL CONSULTANT documented as of this encounter Care Teams Heel Padder Relationship Specialty Start Date End Date Clover Delaney M.D. [address] [place] [address] PCP - General Internal Medicine 11/23/17 documented as of this encounter
--- OUTSIDE RECORDS SUMMARY | 2023-09-06 06:16 | XMS_ITS | Encounter Summary ---
Author Name Unknown Organization [facility] Address [address] [place] [address] Care Team Providers Care Bath Solution Maker Name Role Phone Clover Delaney M.D. Primary Care Provider +1- [phone] Reason for Referral * Outpatient (Routine) - Authorized Specialty Diagnoses / Procedures Referred By Contac t Referred To Contact Diagnoses Preoperative Exam Procedures ECG 12 Lead Sera Casiano M.D., Ph.D. 200 [place] [address] [facility] Referral ID Status Reason Start Date Expiration Date V isits Requested Visits Authorized [id number] Authorized 08/05/2023 08/04/2024 1 1 Reason for Visit * Appointment Request (Routine) - Closed Specialty Diagnoses / Procedures Referred By Contanthony t Referred To Contact Nephrology and Hypertension Referral ID Status Reason Start Date Expiration Date Visits Re quested Visits Authorized [id number] Closed 07/03/2023 07/02/2024 1 1 Encounter Details Date Type Department Care Team (Latest Contact Info) Description 08/05/2023 4:00 PM CDT External Outreach Division of Nephrology and Hypertension in [place], [place] 200 [place] [phone] Sera Casiano M.D., Ph.D. 200 [place] [address] Chronic Kidney Disease Stage 5 Glomerular Filtration [...] Answer Date Recorded PHQ-2 Score 2 05/28/2023 [facility] of Occupat ional Health - Occupational Stress [...] Sex Assigned at Male 05/13/2021 10:11 AM ENROLLMENT COORDINATOR Gender Identity Male 11/02/2017 7:22 PM CDT Sexual Orientation Straight 11/02/2017 7: 22 PM CDT documented as of this encounter Progress Notes * Sera Casiano M.D., Ph.D. - 08/05/2023 4:00 PM CDT PROGRESS NOTE SUBJECTIVE CHIEF COMPLAINT / REASON FOR VISIT Follow up CKD 5 [facility] Outreach Visit Location: [facility] HISTORY OF PRESENT ILLNESS Philip Patel [...] anemia management Return visit in August at [facility]. Jessica Hyman M.D., Ph.D. * Sera Casiano [...] less] Plan to repeat Potassium on 09/02/2023 [facility] - Required the day of the procedure [...] CDT Appointment Department of Laboratory Medicine in [place], [place] [address] [place] [address] Sera Casiano M.D., Ph.D. [address] [place] [phone] 09/08/2023 10:10 AM CDT Appointment Department of Laboratory Medicine in [place], [place] [address] [place] [address] Sera Casiano M.D., Ph.D. [address] [place] [phone] 09/08/2023 2:00 PM CDT Virtual Visit Department of Family Medicine, [facility], in [address] [phone] Clover Delaney M.D. 701 [place] [phone] Discharge Disposition: Home or Self Care 09/10/2023 10:45 AM CDT Clinical Communication Virtual Review in [address] [phone] 09/10/2023 2:30 PM CDT Ancillary Procedure Department of Cardiovascular Diseases in [address] [phone] Clover Delaney M.D. 701 [place] [phone] Discharge Disposition: Home or Self Care 09/14/2023 9:30 AM CDT Comprehensive Visit Division of Pulmonary Medicine in [place], [place] [address] [place] [address] Luis Carrion M.B.B.S. [address] [place] [phone] 10/01/2023 9:30 AM CDT Comprehensive Visit Department of Cardiovascular Diseases in [address] [phone] Nikko Dey M.D. [address] [place] [phone] Discharge Disposition: Home or Self Care 10/27/2023 2:25 PM CDT Appointment Department of Cardiovascular Diseases in [place], [place] [address] [place] [address] Clover Delaney M.D. 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 NPKatlin: [id number] [address] [place] [address] PCP - General Internal Medicine 11/23/17 documented as of this encounter
--- OUTSIDE RECORDS SUMMARY | 2023-09-06 06:16 | XMS_ITS | Encounter Summary ---
Author Name Unknown Organization [facility] Address [address] [place] [address] Care Team Providers Care Certified Professional Midwife Name Role Phone Clover Delaney M.D. 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 [address] [place] [phone] [facility] Referral ID Status Reason Start Date Expiration Date Visits Re quested Visits Authorized [id number] Closed 06/26/2023 12/25/2024 1 1 Encounter Details Date Type Department Care Team (Latest Contact Info) Description 07/29/2023 2:40 PM CDT - 07/29/2023 11:59 PM CDT Hospital Encounter Division of Nephrology and Hypertension, [facility], in [place], [place] [address] [place] [address] Sera Casiano M.D., Ph.D. [address] [place] [phone] Sandeep Kuo M.D., Ph.D. [address] [place] [phone] Chronic Kidney Disease Stage 5 Glomerular Filtration [...] week 07/28/2022 How often do you attend [facility] or restorationism services? Never 07/28/2022 Do [...] Sex Assigned at Male 05/13/2021 10:11 AM LADIES' HAT TRIMMER Gender Identity Male 11/02/2017 7:22 PM CDT [...] by mouth as needed. miscellaneous medical supply [facility] [...] each, 0 Refill(s) 10/20/2016 miscellaneous medical supply [facility] Head Gear for CPAP Machine See Instructions, fax to patient at [phone], 1 each 01/17/2014 MULTIVITAMIN ORAL Daily Multiple Vitamins See Instructions, Take 1 tablet by mouth daily. 07/23/2013 ONETOUCH DELICA LANCETS 33 gauge [facility] [...] WITH MEALS 180 tablet 3 09/03/2022 08/28/2023 cloNIDine (CATAPRES) 0.1 mg tablet Take 1 [...] an outpatient under MAC anesthesia here at [facility] on Sep 03 2023. All questions were answered and consent was obtained here from the patient in the presence of his . documented in this encounter Plan of Treatment Upcoming Encounters Date Type Department Care Team (Latest Contact Info) Description 09/08/2023 10:00 AM CDT Appointment Department of Laboratory Medicine in [place] [address] [place] [address] Sera Casiano M.D., Ph.D. [address] [place] [phone] 09/08/2023 10:10 AM CDT Appointment Department of Laboratory Medicine in [place] [address] [place] [phone] Sera Casiano M.D., Ph.D. [address] [place] [phone] 09/08/2023 2:00 PM CDT Virtual Visit Department of Family Medicine, [facility], in [address] [phone] Clover Delaney M.D. [address] [place] [phone] Discharge Disposition: Home or Self Care 09/10/2023 10:45 AM CDT Clinical Communication Virtual Review in [place], [place] 200 [place] [address] 09/10/2023 2:30 PM CDT Ancillary Procedure Department of Cardiovascular Diseases in [address] [phone] Clover Delaney M.D. [address] [place] [phone] Discharge Disposition: Home or Self Care 09/14/2023 9:30 AM CDT Comprehensive Visit Division of Pulmonary Medicine in [place], [place] [address] [place] [phone] Luis Carrion M.B.BJosé LuisSJosé Luis [address] [place] [phone] 10/01/2023 9:30 AM CDT Comprehensive Visit Department of Cardiovascular Diseases in [address] [phone] Nikko Dey M.D. [address] [place] [phone] Discharge Disposition: Home or Self Care 10/27/2023 2:25 PM CDT Appointment Department of Cardiovascular Diseases in [place], [place] [address] [place] [phone] Clover Delaney M.D. [address] [place] [phone] Discharge Disposition: Home or Self Care Scheduled [...] Than 15 (HCC) documented in this encounter Additional Health Concerns Assessment Noted Time PHQ-9 Depression Total Score: 4 06/06/19 23 2:04 PM LADIES' HAT TRIMMER documented as of this encounter Care Teams Certified Professional Midwife Relationship Specialty Start Date End Date Clover Delaney M.D. [address] [place] [address] PCP - General Internal Medicine 11/23/17 documented as of this encounter
--- OUTSIDE RECORDS SUMMARY | 2023-09-06 06:16 | XMS_ITS | Encounter Summary ---
Author Name Unknown Organization [facility] Address [address] [place] [address] Care Team Providers Care Actuarial Internship Name Role Phone Clover Delaney M.D. Primary Care Provider +1- [phone] Encounter Details Date Type Department Care Team (Late st Contact Info) Description 08/10/2023 Clinical Communication Division of Nephrology and Hypertension in [place], [place] [address] [place] [address] Kanwal Roberts, RJosé LuisNJosé Luis [address] [place] [phone] Social History Tobacco Use Types Packs/Day Years [...] How often do you attend chur or jew services? Never 07/28/2022 Do you belong to [...] Assigned at Male 05/13/2021 10:11 AM TEST BAKER Gender Identity Male 11/02/2017 7:22 PM CDT Sexual Orientation Straight 11/02/2017 7: 22 PM CDT documented as of this encounter Miscellaneous Notes * Telephone Encounter - Kanwal Roberts R.N. - 08/10/2023 12:17 PM CDT [...] Surgery: New date of 09/28/2023. Surgical Checklist ([id number]): Has been reviewed with the patient on [...] CDT Appointment Department of Laboratory Medicine in [place] [address] [place] [address] Sera Casiano M.D., Ph.D. [address] [place] [phone] 09/08/2023 10:10 AM CDT Appointment Department of Laboratory Medicine in [place] [address] [place] [address] Sera Casiano M.D., Ph.D. [address] [place] [phone] 09/08/2023 2:00 PM CDT Virtual Visit Department of Family Medicine, [facility], in [address] [phone] Clover Delaney M.D. [address] [place] [phone] Discharge Disposition: Home or Self Care 09/10/2023 10:45 AM CDT Clinical Communication Virtual Review in [place], [place] 200 [place] [address] 09/10/2023 2:30 PM CDT Ancillary Procedure Department of Cardiovascular Diseases in [address] [phone] Clover Delaney M.D. 701 [place] [phone] Discharge Disposition: Home or Self Care 09/14/2023 9:30 AM CDT Comprehensive Visit Division of Pulmonary Medicine in [place], [place] [address] [place] [phone] Luis Carrion M.B.B.S. [address] [place] [phone] 10/01/2023 9:30 AM CDT Comprehensive Visit Department of Cardiovascular Diseases in [place], [place] [address] [place] [phone] Nikko Dey M.D. 701 [place] [phone] Discharge Disposition: Home or Self Care 10/27/2023 2:25 PM CDT Appointment Department of Cardiovascular Diseases in [place], [place] [address] [place] [phone] Clover Delaney M.D. [address] [place] [phone] Discharge Disposition: Home or Self Care documented as of this encounter Visit Diagnoses Not on filedocumented in this encounter Additional Health Concerns Assessment Noted Time PHQ-9 Depression Total Score: 4 06/06/19 23 2:04 PM TEST BAKER documented as of this encounter Care Teams Actuarial Internship Relationship Specialty Start Date End Date Clover Delaney M.D. [address] [place] [phone] PCP - General Internal Medicine 11/23/17 documented as of this encounter
--- OUTSIDE RECORDS SUMMARY | 2023-09-06 06:16 | XMS_ITS | Encounter Summary ---
Author Name Unknown Organization [facility] Address [address] [place] [address] Care Team Providers Care Used Car Make Ready Mechanic Name Role Phone Clover Delaney M.D. 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 [address] [place] [phone] [facility] Referral ID Status Reason Start Date Expiration Date Visits Re quested Visits Authorized [id number] Closed 06/26/2023 06/25/2024 1 1 Encounter Details Date Type Department Care Team (Latest Contact Info) Description 07/29/2023 12:13 PM CDT - 07/29/2023 2:39 PM CDT Hospital Encounter Department of Radiology, [facility], in [place], [place] [address] [place] [address] Sera Casiano M.D., Ph.D. [address] [place] [address] Chronic Kidney Disease Stage 5 Glomerular Filtration [...] Answer Date Recorded PHQ-2 Score 2 05/28/2023 [facility] of Occupat ional [facility] - Occupational Stress Questionnaire Answer [...] Assigned at Male 05/13/2021 10:11 AM SUPERVISOR TAPING Gender Identity Male 11/02/2017 7:22 PM CDT [...] by mouth as needed. miscellaneous medical supply [facility] [place] Supplies See Instructions, CPAP machine, mask 1 ea x 4 refills, headgear 1 ea x 2 refills, tubing 1 ea x 4 refills, filters 2 ea per month, tub 1 ea x 2 refills, mask seal 1 ea x 2 refills DX G47.33, length of need 99, 1 each, 0 Refill(s) 10/20/2016 miscellaneous medical supply [facility] Head Gear for CPAP Machine See Instructions, fax to patient at [phone], 1 each 01/17/2014 MULTIVITAMIN ORAL Daily Multiple Vitamins See Instructions, Take 1 tablet by mouth daily. 07/23/2013 ONETOUCH DELICA LANCETS 33 gauge [facility] 3 08/02/2018 OneTouch Ultra Test StripsIndications:Diabet es [...] CDT Appointment Department of Laboratory Medicine in [place], [place] [address] [place] [phone] Sera Casiano M.D., Ph.D. [address] [place] [address] 09/08/2023 10:10 AM CDT Appointment Department of Laboratory Medicine in [place], [place] [address] [place] [address] Sera Casiano M.D., Ph.D. [address] [place] [phone] 09/08/2023 2:00 PM CDT Virtual Visit Department of Family Medicine, [facility], in [address] [phone] Clover Delaney M.D. [address] [place] [phone] Discharge Disposition: Home or Self Care 09/10/2023 10:45 AM CDT Clinical Communication Virtual Review in [place], [place] 200 [place] [phone] 09/10/2023 2:30 PM CDT Ancillary Procedure Department of Cardiovascular Diseases in [address] [phone] Clover Delaney M.D. [address] [place] [phone] Discharge Disposition: Home or Self Care 09/14/2023 9:30 AM CDT Comprehensive Visit Division of Pulmonary Medicine in [place], [place] [address] [place] [phone] Luis Carrion M.B.BJosé LuisS. [address] [place] [phone] 10/01/2023 9:30 AM CDT Comprehensive Visit Department of Cardiovascular Diseases in [address] [phone] Nikko Dey M.D. [address] [place] [phone] Discharge Disposition: Home or Self Care 10/27/2023 2:25 PM CDT Appointment Department of Cardiovascular Diseases in [place], [place] [address] [place] [address] Clover Delaney M.D. [address] [place] [phone] Discharge Disposition: Home or Self Care documented [...] Score: 4 06/06/19 23 2:04 PM SUPERVISOR TAPING documented as of this encounter Care Teams Used Car Make Ready Mechanic Relationship Specialty Start Date End Date Clover Delaney M.D. [address] [place] [address] PCP - General Internal Medicine 11/23/17 documented as of this encounter
--- OUTSIDE RECORDS SUMMARY | 2023-09-06 06:16 | XMS_ITS | Encounter Summary ---
Author Name Unknown Organization [facility] Address [address] [place] [address] Care Team Providers Care Extrusion Process Operator Name Role Phone Clover Delaney M.D. Primary Care Provider [phone]- [phone] Encounter Details Date Type Department Care Team (Latest Contact Info) Description 07/29/2023 9:49 AM CDT - 07/29/2023 10:51 AM CDT Hospital Encounter Department of Laboratory Medicine and Pathology, [facility], in [place], [place] [address] [place] [phone] Sera Casiano M.D., Ph.D. 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 miscellaneous medical supply [facility] CPAP Supplies See Instructions, CPAP machine, mask 1 ea x 4 refills, headgear 1 ea x 2 refills, tubing 1 ea x 4 refills, filters 2 ea per month, tub 1 ea x 2 refills, mask seal 1 ea x 2 refills DX G47.33, length of need 99, 1 each, 0 Refill(s) 10/20/2016 miscellaneous medical supply [facility] Head Gear for CPAP Machine See Instructions, fax to patient at [phone], 1 each 01/17/2014 MULTIVITAMIN ORAL Daily Multiple [...] Appointment Department of Laboratory Medicine in [address] [place] [address] Sera Casiano M.D., Ph.D. [address] [place] [phone] 09/08/2023 10:10 AM CDT Appointment Department of Laboratory Medicine in [place] [address] [place] [phone] Sera Casiano M.D., Ph.D. [address] [place] [phone] 09/08/2023 2:00 PM CDT Virtual Visit Department of Family Medicine, [facility], in [address] [phone] Clover Delaney M.D. [address] [place] [phone] Discharge Disposition: Home or Self Care 09/10/2023 10:45 AM CDT Clinical Communication Virtual Review in [address] [phone] 09/10/2023 2:30 PM CDT Ancillary Procedure Department of Cardiovascular Diseases in [address] [phone] Clover Delaney M.D. [address] [place] [phone] Discharge Disposition: Home or Self Care 09/14/2023 9:30 AM CDT Comprehensive Visit Division of Pulmonary Medicine in [place], [place] [address] [place] [address] Luis Carrion M.B.B.S. [address] [place] [phone] 10/01/2023 9:30 AM CDT Comprehensive Visit Department of Cardiovascular Diseases in [address] [phone] Nikko Dey M.D. [address] [place] [phone] Discharge Disposition: Home or Self Care 10/27/2023 2:25 PM CDT Appointment Department of Cardiovascular Diseases in [place], [place] [address] [place] [phone] Clover Delaney M.D. [address] [place] [phone] Discharge Disposition: Home or Self Care documented [...] BL OOD ADD-ON Performing Organization Address City/[facility]/ZIP Co de Phone Number [facility] [address] [facility] 200 [place] [address] * Phosphorus Inorganic (07/29/2023 10:17 AM CDT) Pathologist [facility] Phosphorus (Inorganic), S 4.5 2.5 - 4.5 mg/dL 07/29/2023 12:32 PM CDT DTL Blood (Blood, Venous) 07/29/2023 10:17 AM CDT 07/29/2023 10:55 AM CDT Sera Hyman M.D., Ph.D. LAB BL OOD ADD-ON Performing Organization Address City/[facility]/ZIP Co de Phone Number [facility] 200 [place] [address], [facility] [address] [place] [address] * (ABNORMAL) Glucose, Fasting (07/29/2023 10:17 AM CDT) Glucose, P 256(H) 70 - 100 mg/dL 07/29/2023 11:15 AM CDT DTL Last Intake 16 hr 07/29/2023 10:52 AM CDT DTL Blood (Blood, Venous) 07/29/2023 10:17 AM CDT 07/29/2023 10:52 AM CDT Sera Hyman M.D., Ph.D. LAB BL OOD NON ADD-ON [facility] [address] [place], [place] [address] [address] [place] [address] * CRP (C-Reactive Protein) (07/29/2023 10:17 AM CDT) C-Reactive Protein (CRP), S <3.0 <5.0 mg/L 07/29/2023 12:32 PM CDT DTL Blood (Blood, Venous) 07/29/2023 10:17 AM CDT 07/29/2023 10:55 AM CDT Sera Hyman M.D., Ph.D. LAB BL OOD ADD-ON [facility] [address] [place] [address], [facility] [address] [place] [address] * (ABNORMAL) Comprehensive Metabolic Panel (07/29/2023 10:17 [...] Hyman M.D., Ph.D. LAB BL OOD ADD-ON [facility] [address] [place] [address], [facility] DTL [facility] [address] [place] [address] * (ABNORMAL) CBC with Differential, Blood (07/29/2023 [...] Hyman M.D., Ph.D. LAB BL OOD ADD-ON [facility] [address] [place] [address], [facility] DTL [facility] [address] [place] [address] DHPM [facility] [address] [place] [address] * ANCA (Antineutrophil Cytoplasmic Antibodies) Vasculitis Panel (07/29/2023 10:17 AM CDT) Myeloperoxidase Ab, S <0.2 <0.4 (Negative ) U 07/29/2023 4:45 PM CDT SDSC Proteinase 3 Ab (PR3), S <0.2 <0.4 (Negative ) U 07/29/2023 4:45 PM CDT [facility] Blood (Blood, Venous) 07/29/2023 10:17 AM CDT 07/29/2023 2:52 PM CDT Sear Hyman M.D., Ph.D. LAB BL OOD ADD-ON [facility] [address] [place] [address] [facility] [address] 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 [address] [place] [phone] PCP - General Internal Medicine 11/23/17 documented as of this encounter
--- OUTSIDE RECORDS SUMMARY | 2023-09-06 06:16 | XMS_ITS | Encounter Summary ---
Author Name Unknown Organization [facility] Address [address] [place] [address] Care Team Providers Care Reagent Tender Helper Name Role Phone Clover Delaney M.D. Primary Care Provider [phone]- [phone] Encounter Details Date Type Department Care Team (Latest Contact Info) Description 07/29/2023 9:49 AM CDT - 07/29/2023 10:51 AM CDT Hospital Encounter Department of Laboratory Medicine and Pathology, [facility], in [place], [place] [address] [place] [phone] Sera Casiano M.D., Ph.D. 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 miscellaneous medical supply [facility] CPAP Supplies See Instructions, CPAP machine, mask 1 ea x 4 refills, headgear 1 ea x 2 refills, tubing 1 ea x 4 refills, filters 2 ea per month, tub 1 ea x 2 refills, mask seal 1 ea x 2 refills DX G47.33, length of need 99, 1 each, 0 Refill(s) 10/20/2016 miscellaneous medical supply [facility] Head Gear for CPAP Machine See Instructions, fax to patient at [phone], 1 each 01/17/2014 MULTIVITAMIN ORAL Daily Multiple [...] CDT Appointment Department of Laboratory Medicine in [address] [place] [address] Sera Casiano M.D., Ph.D. [address] [place] [phone] 09/08/2023 10:10 AM CDT Appointment Department of Laboratory Medicine in [place] [address] [place] [phone] Sera Casiano M.D., Ph.D. [address] [place] [phone] 09/08/2023 2:00 PM CDT Virtual Visit Department of Family Medicine, [facility], in [address] [phone] Clover Delaney M.D. [address] [place] [phone] Discharge Disposition: Home or Self Care 09/10/2023 10:45 AM CDT Clinical Communication Virtual Review in [address] [phone] 09/10/2023 2:30 PM CDT Ancillary Procedure Department of Cardiovascular Diseases in [address] [phone] Clover Delaney M.D. [address] [place] [phone] Discharge Disposition: Home or Self Care 09/14/2023 9:30 AM CDT Comprehensive Visit Division of Pulmonary Medicine in [place], [place] [address] [place] [address] Luis Carrion M.B.B.S. [address] [place] [phone] 10/01/2023 9:30 AM CDT Comprehensive Visit Department of Cardiovascular Diseases in [address] [phone] Nikko Dey M.D. [address] [place] [phone] Discharge Disposition: Home or Self Care 10/27/2023 2:25 PM CDT Appointment Department of Cardiovascular Diseases in [place], [place] [address] [place] [phone] Clover Delaney M.D. [address] [place] [phone] Discharge Disposition: Home or Self Care documented [...] (ABNORMAL) Microscopic Manual (07/29/2023 10:27 AM CDT) Pathologist [facility] Microscopy Abnormal 07/29/2023 1:01 PM CDT DTL [...] Hyman M.D., Ph.D. LAB UR INE ORDERABLES [facility] [address] [place] [address], [facility] [address] [place] [address] * (ABNORMAL) Dipstick, Urine (07/29/2023 10:27 AM CDT) Pathologist [facility] Hemoglobin, QL, U Trace(A) Negative 07/29/2023 11:25 [...] Hyman M.D., Ph.D. LAB UR INE ORDERABLES [facility] [address] 200 [place] [address] * pH, Urine (07/29/2023 10:27 AM CDT) Pathologist [facility] pH, U 6.2 4.5 - 8.0 07/29/2023 11: 02 AM CDT DT Urine 07/29/2023 10:2 7 AM CDT 07/29/2023 10:35 AM CDT Sera Hyman M.D., Ph.D. LAB UR INE ORDERABLES Performing Organization Address City/[facility]/ZIP Co de Phone Number [facility] [address] 200 [place] [address] * Osmolality, Urine (07/29/2023 10:27 AM CDT) [facility] Osmolality, U 323 150 - 1150 mOsm/kg 07/29/2023 11:02 AM CDT DT Urine 07/29/2023 10:2 7 AM CDT 07/29/2023 10:35 AM CDT Sera Hyman M.D., Ph.D. LAB UR INE ORDERABLES Performing Organization Address City/[facility]/ZIP Co de Phone Number [facility] [address] [place] [address] * (ABNORMAL) Urinalysis, with Microscopic: Urine, Midstream (07/29/2023 10:27 AM CDT) Pathologist [facility] Source Urine, Urine, Midstream 07/29/2023 10:35 AM CDT DTL Color, U Yellow 07/29/2023 10:35 AM CDT DTL Clarity, U Clear 07/29/2023 10:35 AM CDT DTL Protein, U 308(H) <26 mg/dL 07/29/2023 11:44 AM CDT DTL Protein/Osmol ality 9.54(H) <0.42 ratio 07/29/2023 11:44 AM CDT DTL Predicted 24 HR Protein, U 8076(H) <229 mg/24 h 07/29/2023 11:44 AM CDT DTL Predicted Range 2563-78220 mg/24 h 07/29/2023 11:44 AM CDT DTL Comment Micro done on <10 mL 07/29/2023 1:01 PM CDT DTL Urine (Urine, Midstream) 07/29/2023 10:27 AM CDT 07/29/2023 10:35 AM CDT Sera Hyman M.D., Ph.D. 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 [address] [place] [phone] PCP - General Internal Medicine 11/23/17 documented as of this encounter
--- OUTSIDE RECORDS SUMMARY | 2023-09-06 06:16 | XMS_ITS | Encounter Summary ---
Author Name Unknown Organization [facility] Address [address] [place] [address] Care Team Providers Care Senior Electrical Design Engineer Name Role Phone Clover Delaney M.D. 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 [address] [place] [phone] [facility] Referral ID Status Reason Start Date Expiration Date Visits Re quested Visits Authorized [id number] Closed 06/30/2023 06/29/2024 1 1 Encounter Details Date Type Department Care Team (Latest Contact Info) Description 07/29/2023 10:52 AM CDT - 07/29/2023 12:12 PM CDT Hospital Encounter Department of Radiology, [facility], in [place], [place] [address] [place] [address] Sera Casiano M.D., Ph.D. 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 Never 07/28/2022 Do you belong to [...] Date Recorded PHQ-2 Score 2 05/28/2023 [facility] of Occupat [...] Sex Assigned at Male 05/13/2021 10:11 AM DEBT MANAGEMENT COUNSELOR Gender Identity Male 11/02/2017 7:22 PM [...] Machine See Instructions, fax to patient at [phone], 1 each 01/17/2014 MULTIVITAMIN ORAL Daily Multiple Vitamins See Instructions, Take 1 tablet by mouth daily. 07/23/2013 ONETOUCH DELICA LANCETS 33 gauge [facility] 3 08/02/2018 OneTouch Ultra Test StripsIndications:Diabet es [...] CDT Appointment Department of Laboratory Medicine in [place], [place] [address] [place] [phone] Sera Casiano M.D., Ph.D. 200 [place] [address] 09/08/2023 10:10 AM CDT Appointment Department of Laboratory Medicine in [place] [phone] [place] [address] Sera Casiano M.D., Ph.D. [address] [place] [phone] 09/08/2023 2:00 PM CDT Virtual Visit Department of Family Medicine, [facility], in [address] [address] Clover Delaney M.D. [address] [place] [phone] Discharge Disposition: Home or Self Care 09/10/2023 10:45 AM CDT Clinical Communication Virtual Review in [place], [place] 200 [place] [phone] 09/10/2023 2:30 PM CDT Ancillary Procedure Department of Cardiovascular Diseases in [address] [phone] Clover Delaney M.D. [address] [place] [phone] Discharge Disposition: Home or Self Care 09/14/2023 9:30 AM CDT Comprehensive Visit Division of Pulmonary Medicine in [place], [place] [address] [place] [phone] Luis Carrion M.B.B.S. [address] [place] [phone] 10/01/2023 9:30 AM CDT Comprehensive Visit Department of Cardiovascular Diseases in [address] [phone] Nikko Dey M.D. [address] [place] [phone] Discharge Disposition: Home or Self Care 10/27/2023 2:25 PM CDT Appointment Department of Cardiovascular Diseases in [place], [place] [address] [place] [address] Clover Delaney M.D. [address] [place] [phone] Discharge Disposition: Home or Self Care documented [...] the upper pole of the left kidney ([id number]). Hypertrophic changes in the spine. Mild degenerative [...] Total Score: 4 06/06/19 23 2:04 PM DEBT MANAGEMENT COUNSELOR documented as of this encounter Care Teams Senior Electrical Design Engineer Relationship Specialty Start Date End Date Clover Delaney M.D. [address] [place] [phone] PCP - General Internal Medicine 11/23/17 documented as of this encounter
--- OUTSIDE RECORDS SUMMARY | 2023-09-06 06:17 | XMS_ITS | Encounter Summary ---
Author Name Unknown Organization [facility] Address [address] [place] [address] Care Team Providers Care Dye Reel Operator Helper Name Role Phone Clover Delaney M.D. Primary Care Provider +1- [phone] Reason for Visit * Outpatient (Routine) - Closed Specialty Diagnoses / Procedures Referred By Contanthony t Referred To Contact Nephrology and Hypertension Sera Casiano M.D., Ph.D. [address] [place] [phone] [facility] Referral ID Status Reason Start Date Expiration Date Visits Re quested Visits Authorized [id number] Closed 06/26/2023 12/25/2024 1 1 Encounter Details Date Type Department Care Team (Late st Contact Info) Description 07/17/2023 1:00 PM CDT Virtual Visit Division of Nephrology and Hypertension in [place], [place] [address] [place] [phone] Sera Casiano M.D., Ph.D. [address] [place] [address] [phone] Kanwal Roberts R.N. [address] [place] [phone] Chronic Kidney Disease Stage 5 Glomerular Filtration [...] often do you attend chur ch or congregation services? Never 07/28/2022 Do you belong to [...] 05/28/2023 [facility] - Occupational Stress Questionnaire Answer [...] Sex Assigned at Male 05/13/2021 10:11 AM ADVERTISING TRAFFIC MANAGER Gender Identity Male 11/02/2017 7:22 PM [...] dialysis, but will likely do dialysis at [facility]). He next sees CKD provider on 08/05/2023. Significant Medical History: obesity, colon malignant neoplasm, DM2, KIMBER, etc PACEMAKER: None noted. DIABETES: DM2: Mounjaro injectable ANTICOAGULATION: Takes Aspirin only. LABORATORY RESULTS: Please see [facility] for current labs. BMI: Body mass index [...] the patient over the phone: Hemodialysis Catheters ([id number]),Hemodialysis Fistula and Graft ([id number]). I gave him an red/orange Save your [...] CDT Appointment Department of Laboratory Medicine in [place] [address] [place] [phone] Sera Casiano M.D., Ph.D. [address] [place] [phone] 09/08/2023 10:10 AM CDT Appointment Department of Laboratory Medicine in [place] [address] [place] [phone] Sera Casiano M.D., Ph.D. [address] [place] [phone] 09/08/2023 2:00 PM CDT Virtual Visit Department of Family Medicine, [facility], in [address] [phone] Clover Delaney M.D. [address] [place] [phone] Discharge Disposition: Home or Self Care 09/10/2023 10:45 AM CDT Clinical Communication Virtual Review in [address] [phone] 09/10/2023 2:30 PM CDT Ancillary Procedure Department of Cardiovascular Diseases in [address] [phone] Clover Delaney M.D. [address] [place] [phone] Discharge Disposition: Home or Self Care 09/14/2023 9:30 AM CDT Comprehensive Visit Division of Pulmonary Medicine in [place], [place] [address] [place] [address] Luis Carrion M.B.BJosé LuisS. [address] [place] [address] 10/01/2023 9:30 AM CDT Comprehensive Visit Department of Cardiovascular Diseases in [place], [place] [address] [place] [phone] Nikko Dey M.D. [address] [place] [phone] Discharge Disposition: Home or Self Care 10/27/2023 2:25 PM CDT Appointment Department of Cardiovascular Diseases in [place], [place] [address] [place] [address] Clover Delaney M.D. 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 [address] [place] [phone] PCP - General Internal Medicine 11/23/17 documented as of this encounter
--- OUTSIDE RECORDS SUMMARY | 2023-09-06 06:17 | XMS_ITS | Encounter Summary ---
Author Name Unknown Organization [facility] Address [address] [place] [address] Care Team Providers Care Hand Tube Winder Name Role Phone Clover Delaney M.D. 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 [address] [place] [phone] [facility] Referral ID Status Reason Start Date Expiration Date Visits Re quested Visits Authorized [id number] Closed 06/26/2023 12/25/2024 1 1 Encounter Details Date Type Department Care Team (Latest Contact Info) Description 07/10/2023 1:00 PM CDT Comprehensive Visit Division of Nephrology and Hypertension in [place], [place] [address] [place] [phone] Sera Casiano M.D., Ph.D. [address] [place] [address] [phone] Elana Almonte, RDN, LD [address] [place] [address] [phone] Chronic Kidney Disease Stage 5 Glomerular Filtration [...] 05/28/2023 [facility]at ional Health [...] Sex Assigned at Male 05/13/2021 10:11 AM CRITICAL CARE UNIT NURSE Gender Identity Male 11/02/2017 7:22 PM [...] stage 5 Met with patient and spouse [id number] HISTORY OF PRESENT ILLNESS Pertinent PMH: HTN, [...] stable Nutrition Questionnaire Typical Daily Intake Breakfast: [place] 1 slice, one egg and butter and [...] patient questions and diet recall. Nutrition Prescription/Recommendation 2912-6497 mg sodium; 75 g protein INTERVENTION Counseling: Discussed limiting sodium intake to 0203-5498 mg per day Encouraged continuing to limit [...] values within target range Plan/Patient Goal(s): 1. 7915-0199 mg sodium 2. 75 gm total protein [...] CDT Appointment Department of Laboratory Medicine in [place], [place] [address] [place] [address] Sera Casiano M.D., Ph.D. [address] [place] [phone] 09/08/2023 10:10 AM CDT Appointment Department of Laboratory Medicine in [place], [place] [address] [place] [address] Sera Casiano M.D., Ph.D. [address] [place] [phone] 09/08/2023 2:00 PM CDT Virtual Visit Department of Family Medicine, [facility], in [address] [phone] Clover Delaney M.D. 701 [place] [phone] Discharge Disposition: Home or Self Care 09/10/2023 10:45 AM CDT Clinical Communication Virtual Review in [address] [phone] 09/10/2023 2:30 PM CDT Ancillary Procedure Department of Cardiovascular Diseases in [address] [phone] Clover Delaney M.D. [address] [place] [phone] Discharge Disposition: Home or Self Care 09/14/2023 9:30 AM CDT Comprehensive Visit Division of Pulmonary Medicine [place] [address] [place] [phone] Luis Carrion M.B.BJosé LuisS. [address] [place] [address] 10/01/2023 9:30 AM CDT Comprehensive Visit Department of Cardiovascular Diseases in [place], [place] 701 [place] [phone] Nikko Dey M.D. [address] [place] [phone] Discharge Disposition: Home or Self Care 10/27/2023 2:25 PM CDT Appointment Department of Cardiovascular Diseases in [place], [place] [address] [place] [address] Clover Delaney M.D. [address] [place] [phone] Discharge Disposition: Home or Self Care documented as of this encounter Visit Diagnoses Diagnosis Chronic Kidney Disease Stage 5 Glomerular Filtration Rate Less Than 15 (HCC) documented in this encounter Additional Health Concerns Assessment Noted Time PHQ-9 Depression Total Score: 4 06/06/19 23 2:04 PM CRITICAL CARE UNIT NURSE documented as of this encounter Care Teams Hand Tube Winder Relationship Specialty Start Date End Date Clover Delaney M.D. [address] [place] [phone] PCP - General Internal Medicine 11/23/17 documented as of this encounter
--- OUTSIDE RECORDS SUMMARY | 2023-09-06 06:17 | XMS_ITS | Encounter Summary ---
Author Name Unknown Organization [facility] Address [address] [place] [address] Care Team Providers Care Assembler Tubing Name Role Phone Clover Delaney M.D. Primary Care Provider +1- [phone] Reason for Visit * Reason Comments Med Refill Encounter Details Date Type Department Care Team (Late st Contact Info) Description 07/11/2023 Refill Division of Nephrology and Hypertension in [place], [place] [address] [place] [phone] Mónica Portillo, TRIXIE, C.N.P., M.S. [address] [place] [phone] Med Refill Social History Tobacco Use Types [...] Answer Date Recorded PHQ-2 Score 2 05/28/2023 [facility] [...] Sex Assigned at Male 05/13/2021 10:11 AM ROOFER GYPSUM Gender Identity Male 11/02/2017 7:22 PM CDT Sexual Orientation Straight 11/02/2017 7: 22 PM CDT documented as of this encounter Plan of Treatment Upcoming Encounters Date Type Department Care Team (Latest Contact Info) Description 09/08/2023 10:00 AM CDT Appointment Department of Laboratory Medicine in [place] [address] [place] [address] Sera Casiano M.D., Ph.D. [address] [place] [phone] 09/08/2023 10:10 AM CDT Appointment Department of Laboratory Medicine in [place] [address] [place] [address] Sera Casiano M.D., Ph.D. [address] [place] [phone] 09/08/2023 2:00 PM CDT Virtual Visit Department of Family Medicine, [facility], in [address] [phone] Clover Delaney M.D. [address] [place] [phone] Discharge Disposition: Home or Self Care 09/10/2023 10:45 AM CDT Clinical Communication Virtual Review in [address] [phone] 09/10/2023 2:30 PM CDT Ancillary Procedure Department of Cardiovascular Diseases in [address] [phone] Clover Delaney M.D. [address] [place] [phone] Discharge Disposition: Home or Self Care 09/14/2023 9:30 AM CDT Comprehensive Visit Division of Pulmonary Medicine in [place], [place] [address] [place] [phone] Luis Carrion M.B.BJosé LuisS. [address] [place] [address] 10/01/2023 9:30 AM CDT Comprehensive Visit Department of Cardiovascular Diseases in [place], [place] [address] [place] [phone] Nikko Dey M.D. [address] [place] [phone] Discharge Disposition: Home or Self Care 10/27/2023 2:25 PM CDT Appointment Department of Cardiovascular Diseases in [place], [place] [address] [place] [address] Clover Delaney M.D. [address] [place] [phone] Discharge Disposition: Home or Self Care documented as of this encounter Visit Diagnoses Not on filedocumented in this encounter Additional Health Concerns Assessment Noted Time PHQ-9 Depression Total Score: 4 06/06/19 23 2:04 PM ROOFER GYPSUM documented as of this encounter Care Teams Assembler Tubing Relationship Specialty Start Date End Date Clover Delaney M.D. [address] [place] [phone] PCP - General Internal Medicine 11/23/17 documented as of this encounter
--- OUTSIDE RECORDS SUMMARY | 2023-09-06 06:17 | XMS_ITS | Encounter Summary ---
Author Name Unknown Organization [facility] Address [address] [place] [address] Care Team Providers Care Karate Black Belt Name Role Phone Clover Delaney M.D. Primary Care Provider +1- [phone] Encounter Details Date Type Department Care Team (Latest Contact Info) Description 06/29/2023 11:47 AM ROTARY LITHOGRAPHIC PRESS OPERATOR - 06/29/2023 11:59 PM [facility] Encounter Department of Laboratory Medicine and Pathology, [facility], in [place], [place] [address] [place] [phone] Sera Casiano M.D., Ph.D. [address] [place] [phone] Hyperkalemia; Anemia Of Renal Failure Chronic Kidney [...] Answer Date Recorded PHQ-2 Score 2 05/28/2023 [facility] Occup[facility] ional Health - Occupational Stress [...] Sex Assigned at Male 05/13/2021 10:11 AM ROTARY LITHOGRAPHIC PRESS OPERATOR Gender Identity Male 11/02/2017 7:22 [...] by mouth as needed. miscellaneous medical supply [facility] [...] each, 0 Refill(s) 10/20/2016 miscellaneous medical supply [facility] Head Gear for CPAP Machine See Instructions, fax to patient at [phone], 1 each 01/17/2014 MULTIVITAMIN ORAL Daily Multiple [...] WITH MEALS 180 tablet 3 09/03/2022 08/28/2023 irbesartan (AVAPRO) 75 mg tablet Take 1 [...] Department of Laboratory Medicine in [place] [address] [place] [address] Sera Casiano M.D., Ph.D. [address] [place] [phone] 09/08/2023 10:10 AM CDT Appointment Department of Laboratory Medicine in [place] [address] [place] [phone] Sera Casiano M.D., Ph.D. [address] [place] [phone] 09/08/2023 2:00 PM CDT Virtual Visit Department of Family Medicine, [facility], in [address] [phone] Clover Delaney M.D. [address] [place] [phone] Discharge Disposition: Home or Self Care 09/10/2023 10:45 AM CDT Clinical Communication Virtual Review in [address] [phone] 09/10/2023 2:30 PM CDT Ancillary Procedure Department of Cardiovascular Diseases in [address] [phone] Clover Delaney M.D. [address] [place] [phone] Discharge Disposition: Home or Self Care 09/14/2023 9:30 AM CDT Comprehensive Visit Division of Pulmonary Medicine in [place], [place] [address] [place] [phone] Luis Carrion M.B.BJosé LuisS. [address] [place] [phone] 10/01/2023 9:30 AM CDT Comprehensive Visit Department of Cardiovascular Diseases in [address] [phone] Nikko Dey M.D. [address] [place] [phone] Discharge Disposition: Home or Self Care 10/27/2023 2:25 PM CDT Appointment Department of Cardiovascular Diseases in [place], [place] [address] [place] [phone] Clover Delaney M.D. 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 LAB BL OOD ADD-ON [facility] 200 [place], [place] [phone] [place] [address] [facility] 200 [place] [address] * (ABNORMAL) Iron and Total Iron-Binding Capacity (06/29/2023 12:11 PM ROTARY LITHOGRAPHIC PRESS OPERATOR) Iron 51 50 - 150 mcg/dL 06/29/2023 1:44 PM ROTARY LITHOGRAPHIC PRESS OPERATOR DTL Total Iron Binding Capacity 221(L) 250 - 400 mcg/dL 06/29/2023 1:44 PM ROTARY LITHOGRAPHIC PRESS OPERATOR DTL Percent Saturation 23 14 - 50 % 06/29/2023 1:44 PM ROTARY LITHOGRAPHIC PRESS OPERATOR DTL Blood (Blood, Venous) 06/29/2023 12:11 PM ROTARY LITHOGRAPHIC PRESS OPERATOR 06/29/2023 12:47 PM ROTARY LITHOGRAPHIC PRESS OPERATOR Sera Hyman M.D., Ph.D. LAB BL OOD ADD-ON [facility] 200 [place] [address], [facility] DTL [facility] 200 [place] [address] * (ABNORMAL) Renal Function Panel (06/29/2023 12:11 PM ROTARY LITHOGRAPHIC PRESS OPERATOR) Potassium, S 4.5 3.6 - 5.2 mmol/L 06/29/2023 1:44 PM ROTARY LITHOGRAPHIC PRESS OPERATOR DTL Sodium, S 143 135 - 145 mmol/L 06/29/2023 1:44 PM ROTARY LITHOGRAPHIC PRESS OPERATOR DTL Chloride, S 104 98 - 107 mmol/L 06/29/2023 1:44 PM ROTARY LITHOGRAPHIC PRESS OPERATOR DTL Bicarbonate, S 24 22 - 29 mmol/L 06/29/2023 1:44 PM ROTARY LITHOGRAPHIC PRESS OPERATOR DTL Anion Gap 15 7 - 15 06/29/2023 1:44 PM ROTARY LITHOGRAPHIC PRESS OPERATOR DTL BUN (Blood Urea Nitrogen), S 69(H) 8 - 24 mg/dL 06/29/2023 1:44 PM ROTARY LITHOGRAPHIC PRESS OPERATOR DTL Creatinine 4.51(H) 0.74 - 1.35 mg/dL 06/29/2023 1:44 PM ROTARY LITHOGRAPHIC PRESS OPERATOR DTL Estimated GFR (eGFR) <15(L) >=60 mL/min/BSA 06/29/2023 1:44 PM ROTARY LITHOGRAPHIC PRESS OPERATOR DTL Comment: Estimated GFR calculated using the 2020 CKD_EPI creatinine equation. Calcium, Total, S 8.5(L) 8.8 - 10.2 mg/dL 06/29/2023 1:44 PM ROTARY LITHOGRAPHIC PRESS OPERATOR DTL Glucose, S 97 70 - 140 mg/dL 06/29/2023 1:44 PM ROTARY LITHOGRAPHIC PRESS OPERATOR DTL Albumin, S 4.0 3.5 - 5.0 g/dL 06/29/2023 1:44 PM ROTARY LITHOGRAPHIC PRESS OPERATOR DTL Phosphorus (Inorganic), S 4.9(H) 2.5 - 4.5 mg/dL 06/29/2023 1:44 PM ROTARY LITHOGRAPHIC PRESS OPERATOR DTL Blood (Blood, Venous) 06/29/2023 12:11 PM ROTARY LITHOGRAPHIC PRESS OPERATOR 06/29/2023 12:47 PM ROTARY LITHOGRAPHIC PRESS OPERATOR Sera Hyman M.D., Ph.D. LAB BL OOD ADD-ON [facility] [address] [place] [address], [facility] [address] [place] [address] documented in this encounter Visit Diagnoses Diagnosis Hyperkalemia 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 documented in this encounter Additional Health Concerns Assessment Noted Time PHQ-9 Depression Total Score: 4 06/06/19 23 2:04 PM ROTARY LITHOGRAPHIC PRESS OPERATOR documented as of this encounter Care Teams Karate Black Belt Relationship Specialty Start Date End Date Clover Delaney M.D. [address] [place] [phone] PCP - General Internal Medicine 11/23/17 documented as of this encounter
--- OUTSIDE RECORDS SUMMARY | 2023-09-06 06:17 | XMS_ITS | Encounter Summary ---
Author Name Unknown Organization [facility] Address [address] [place] [address] Care Team Providers Care Transformer Shop Supervisor Name Role Phone Clover Delaney M.D. Primary Care Provider [phone]- [phone] Reason for Referral * Outpatient (Routine) - Authorized Specialty Diagnoses / Procedures Referred By Yenny hunter Referred To Contact Endocrinology Diagnoses Diabetes Mellitus Type 2 (HCC) Cammy Silva M.D. [address] [place] [address] [facility] Referral ID Status Reason Start Date Expiration Date V isits Requested Visits Authorized [id number] Authorized 06/29/2023 12/28/2024 1 1 ISTICS TEACHER * Medication Prior Authorization - Closed Specialty Diagnoses / Procedures Referred By Yenny hunter Referred To Contact Diagnoses Morbid Obesity (HCC) Cammy Silva M.D. [address] [place] [address] Referral ID Status Reason Start Date Expiration Date Visits Re quested Visits Authorized [id number] Closed 1 1 ISTICS TEACHER * Medication Prior Authorization - Authorized Specialty Diagnoses / Procedures Referred By Contanthony t Referred To Contact Diagnoses Morbid Obesity (HCC) Cammy Silva M.D. [address] [place] [phone] Referral ID Status Reason Start Date Expiration Date V isits Requested Visits Authorized [id number] Authorized 07/01/2023 06/30/2024 1 1 ISTICS TEACHER * Medication Prior Authorization - Closed Specialty Diagnoses / Procedures Referred By Yenny t Referred To Contact Diagnoses Morbid Obesity (HCC) Cammy Silva M.D. [address] [place] [phone] Referral ID Status Reason Start Date Expiration Date Visits Re quested Visits Authorized [id number] Closed 1 1 ISTICS TEACHER * Medication Prior Authorization - Closed Specialty Diagnoses / Procedures Referred By Yenny hunter Referred To Contact Diagnoses Morbid Obesity (HCC) Cammy Silva M.D. [address] [place] [phone] Referral ID Status Reason Start Date Expiration Date Visits Re quested Visits Authorized [id number] Closed 1 1 ISTICS TEACHER * Specialty Diagnoses / Procedures Referred By Contanthony t Referred To Contact Cammy Silva M.D. [address] [place] [phone] [facility] Referral ID Status Reason Start Date Expiration Date Visits Re quested Visits Authorized ISTICS TEACHER Reason for Visit * Outpatient (Routine) - Closed Specialty Diagnoses / Procedures Referred By Contac t Referred To Contact Endocrinology Diagnoses Hypertensive Chronic Kidney Disease With Stage 5 Chronic Kidney Disease Or End Stage Renal Disease, Chronic Kidney Disease Stage 5 (HCC) Proteinuria Sera Casiano M.D., Ph.D. [address] [place] [phone] [facility] Referral ID Status Reason Start Date Expiration Date Visits Re quested Visits Authorized [id number] Closed 05/29/2023 11/27/2024 1 1 Encounter Details Date Type Department Care Team (Latest Contact Info) Description 06/29/2023 1:30 PM BALLISTICS TEACHER Comprehensive Visit Division of Endocrinology in [place], [place] [address] [place] [phone] Sera Casiano M.D., Ph.D. [address] [place] [phone] Cammy Silva M.D. [address] [place] [phone] Diabetes Mellitus Type 2 (HCC) (Primary [...] any clubs o r organizations such as jewish groups, unions, fraternal or athletic groups, or [...] 2 05/28/2023 [facility] - Occupational Stress [...] Sex Assigned at Male 05/13/2021 10:11 AM BALLISTICS TEACHER Gender Identity Male 11/02/2017 7:22 PM [...] lb 14.4 oz) 06/29/2023 1:19 P M BALLISTICS TEACHER in shoes Height 176.9 cm (5' 9.65) 06/29/2023 1:19 PM CS T in shoes Body Mass Index 50.14 06/29/2023 1:19 PM BALLISTICS TEACHER documented in this encounter Consult Notes * Cammy Silva M.D. - 06/29/2023 1:30 PM CST SUBJECTIVE CHIEF COMPLAINT / REASON FOR VISIT Philip Patel is a 77 y.o. male who presents for an evaluation of diabetes mellitus. HISTORY OF PRESENT ILLNESS This is a 77 year old male who comes with his from [place], [place] who has CKD stage 5, granulomatous [...] mg daily. He has been prescribed CGM Lawdingo Brionna 2 but unfortunately he has experienced [...] been following regularly with Ophthalmology here at [place]. Last visit on 06/15/2023. The following portions [...] times a week at fasting - PGA manager advanced for sick day discussion in the setting [...] with plan. Case seen and discussed with Equipment Operat0R Dr. Ochoa. Cammy Jacques MD Endocrinology Fellow Pager [phone] ISTICS TEACHER Associated attestation - Edmundo Ochoa M.D. - 06/29/2023 4:08 PM BALLISTICS TEACHER I saw and evaluated the patient, participating in the thakkar portions of the service. I reviewed the fellow???s note. I agree with the fellow???s findings and plan. documented in this encounter Plan of Treatment Upcoming Encounters Date Type Department Care Team (Latest Contact Info) Description 09/08/2023 10:00 AM CDT Appointment Department of Laboratory Medicine in [place] [address] [place] [address] Sera Casiano M.D., Ph.D. [address] [place] [phone] 09/08/2023 10:10 AM CDT Appointment Department of Laboratory Medicine in [place] [address] [place] [address] Sera Casiano M.D., Ph.D. [address] [place] [phone] 09/08/2023 2:00 PM CDT Virtual Visit Department of Family Medicine, [facility], in [address] [phone] Clover Delaney M.D. [address] [place] [phone] Discharge Disposition: Home or Self Care 09/10/2023 10:45 AM CDT Clinical Communication Virtual Review in [address] [phone] 09/10/2023 2:30 PM CDT Ancillary Procedure Department of Cardiovascular Diseases in [address] [place] [address] Clover Delaney M.D. [address] [place] [phone] Discharge Disposition: Home or Self Care 09/14/2023 9:30 AM CDT Comprehensive Visit Division of Pulmonary Medicine in [place], [place] [address] [place] [phone] Luis Carrion M.B.BJosé LuisS. [address] [place] [phone] 10/01/2023 9:30 AM CDT Comprehensive Visit Department of Cardiovascular Diseases in [address] [phone] Nikko Dey M.D. [address] [place] [phone] Discharge Disposition: Home or Self Care 10/27/2023 2:25 PM CDT Appointment Department of Cardiovascular Diseases in [place], [place] [address] [place] [phone] Clover Delaney M.D. [address] [place] [phone] Discharge Disposition: Home or Self Care Scheduled Orders Name Type Priority Associated Diagnoses Orde r Schedule Hemoglobin A1c Lab Routine Diabetes Mellitus Type 2 (HCC) Expected: 12/30/2023 (Approximate), Expires: 09/28/2024 Lipid Panel Lab Routine Diabetes Mellitus Type 2 (HCC) Expected: 12/30/2023 (Approximate), Expires: 09/28/2024 Scheduled Referrals Name Type Priority Associated Diagnoses Order Schedule Endocrinology - PGA nurse education visit (clinic) Outpatient Referral Routine Insufficiency Adrenal Secondary (HCC) Expected: 12/30/2023 (Approximate), Expires: 09/28/2024 Endocrinology office visit (clinic) Outpatient Referral Routine Diabetes Mellitus Type 2 (HCC) Expected: 12/30/2023 (Approximate), Expires: 09/28/2024 documented as of this encounter Visit Diagnoses Diagnosis Diabetes Mellitus Type 2 (HCC)- Primary Hypertensive Chronic Kidney Disease With Stage 5 Chronic Kidney Disease Or End Stage Renal Disease, Chronic Kidney Disease Stage 5 (HCC) Proteinuria Insufficiency Adrenal Secondary (HCC) Morbid Obesity (HCC) documented in this encounter Additional Health Concerns Assessment Noted Time PHQ-9 Depression Total Score: 4 06/06/19 23 2:04 PM BALLISTICS TEACHER documented as of this encounter Care Teams Transformer Shop Supervisor Relationship Specialty Start Date End Date Clover Delaney M.D. [address] [place] [phone] PCP - General Internal Medicine 11/23/17 documented as of this encounter
--- OUTSIDE RECORDS SUMMARY | 2023-09-06 06:17 | XMS_ITS | Encounter Summary ---
Author Name Unknown Organization [facility] Address [address] [place] [address] Care Team Providers Care Hemming And Tacking Machine Operator Name Role Phone Clover Delaney M.D. 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 [address] [place] [phone] [facility] Referral ID Status Reason Start Date Expiration Date V isits Requested Visits Authorized [id number] Authorized 06/30/2023 12/29/2024 1 1 UCT SUPPORT ANALYST Encounter Details Date Type Department Care Team (Late st Contact Info) Description 06/30/2023 Orders Only Division of Nephrology and Hypertension in [place], [place] [address] [place] [address] Sera Casiano M.D., Ph.D. 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 [address] [place] [phone] 09/08/2023 10:10 AM CDT Appointment Department of Laboratory Medicine in [place] [address] [place] [address] Sera Casiano M.D., Ph.D. [address] [place] [phone] 09/08/2023 2:00 PM CDT Virtual Visit Department of Family Medicine, [facility], in [address] [phone] Clover Delaney M.D. [address] [place] [phone] Discharge Disposition: Home or Self Care 09/10/2023 10:45 AM CDT Clinical Communication Virtual Review in [place], [place] 200 [place] [address] 09/10/2023 2:30 PM CDT Ancillary Procedure Department of Cardiovascular Diseases in [address] [phone] Clover Delaney M.D. [address] [place] [phone] Discharge Disposition: Home or Self Care 09/14/2023 9:30 AM CDT Comprehensive Visit Division of Pulmonary Medicine in [address] [phone] Luis Carrion M.B.B.S. [address] [place] [phone] 10/01/2023 9:30 AM CDT Comprehensive Visit Department of Cardiovascular Diseases in [address] [phone] Nikko Dey M.D. [address] [place] [phone] Discharge Disposition: Home or Self Care 10/27/2023 2:25 PM CDT Appointment Department of Cardiovascular Diseases in [address] [phone] Clover Delaney M.D. [address] [place] [phone] Discharge Disposition: Home or Self Care Scheduled [...] the upper pole of the left kidney ([id number]). Hypertrophic changes in the spine. Mild degenerative [...] 07/29/2023 11:44 AM CDT DTL Predicted Range 2563-21232 mg/24 h 07/29/2023 11:44 AM CDT DTL Comment Micro done on <10 mL 07/29/2023 1:01 PM CDT DTL Urine (Urine, Midstream) 07/29/2023 10:27 AM CDT 07/29/2023 10:35 AM CDT Sera Hyman M.D., Ph.D. LAB UR INE ORDERABLES [facility] [address] [place] [address], [facility] DTL [facility] [address] [place] [address] * (ABNORMAL) Uric Acid (07/29/2023 10:17 AM CDT) Uric Acid, S 11.2(H) 3.7 - 8.0 mg/dL 07/29/2023 12:32 PM CDT DTL Blood (Blood, Venous) 07/29/2023 10:17 AM CDT 07/29/2023 10:55 AM CDT Sera Hyman M.D., Ph.D. LAB BL OOD ADD-ON [facility] [address] [place] [address] * Phosphorus Inorganic (07/29/2023 10:17 AM CDT) Phosphorus (Inorganic), S 4.5 2.5 - 4.5 mg/dL 07/29/2023 12:32 PM CDT DTL Blood (Blood, Venous) 07/29/2023 10:17 AM CDT 07/29/2023 10:55 AM CDT Sera Hyman M.D., Ph.D. LAB BL OOD ADD-ON [facility] [address] [place], [place] [phone] [place] [address] 200 [place] [address] * (ABNORMAL) Glucose, Fasting (07/29/2023 10:17 AM CDT) Glucose, P 256(H) 70 - 100 mg/dL 07/29/2023 11:15 AM CDT DTL Last Intake 16 hr 07/29/2023 10:52 AM CDT DTL Blood (Blood, Venous) 07/29/2023 10:17 AM CDT 07/29/2023 10:52 AM CDT Sera Hyman M.D., Ph.D. LAB BL OOD NON ADD-ON Performing Organization Address City/[facility]/[place] [address] * CRP (C-Reactive Protein) (07/29/2023 10:17 AM CDT) Pathologist [facility] C-Reactive Protein (CRP), S <3.0 <5.0 mg/L 07/29/2023 12:32 PM CDT DTL Blood (Blood, Venous) 07/29/2023 10:17 AM CDT 07/29/2023 10:55 AM CDT Sera Hyman M.D., Ph.D. LAB BL OOD ADD-ON Performing Organization Address [facility] Co de Phone Number [facility] [address] [place], [place] [address] [place] [address] * (ABNORMAL) Comprehensive Metabolic Panel (07/29/2023 10:17 AM CDT) [facility] Potassium, S 4.2 3.6 - [...] Ph.D. LAB BL OOD ADD-ON [facility] [address] [place] [address], [facility] [address] [place] [address] * (ABNORMAL) CBC with Differential, Blood (07/29/2023 [...] Hyman M.D., Ph.D. LAB BL OOD ADD-ON [facility] [address] [place] [address], [place] DTL [facility] [address] [place] [address] [facility] [address] [place] [address] * ANCA (Antineutrophil Cytoplasmic Antibodies) Vasculitis Panel (07/29/2023 10:17 AM CDT) Myeloperoxidase Ab, S <0.2 <0.4 (Negative ) U 07/29/2023 4:45 PM CDT SDSC Proteinase 3 Ab (PR3), S <0.2 <0.4 (Negative ) U 07/29/2023 4:45 PM CDT [facility] Blood (Blood, Venous) 07/29/2023 10:17 AM CDT 07/29/2023 2:52 PM CDT Sera Hyman M.D., Ph.D. LAB BL OOD ADD-ON [facility] [address] [place] [address] [facility] [address] [place] [address] * Pulmonary Function Tests (07/29/2023 9:02 AM CDT) Pathologist [facility] FVC 2.15 L 07/29/2023 10:32 AM CDT [facility] FEV1 1.56 L 07/29/2023 10:32 AM CDT [facility] FEV1/FVC 72.56 % 07/29/2023 10:32 AM CDT [facility] UHB64-67% 1.03 L/s 07/29/2023 10:32 AM CDT [facility] PEF PRE 5.91 L/s 07/29/2023 10:32 AM CDT [facility] PIF PRE 3.35 L/s 07/29/2023 10:32 AM CDT [facility] FEF 50 % FIF 50 PRE 54.00 % 07/29/2023 10:32 AM CDT [facility] FET PRE 9.49 sec 07/29/2023 10:32 AM CDT [facility] DLCO 10.65 ml/(min*mm Hg) 07/29/2023 10:32 AM CDT [facility] DLCOc 14.91 ml/(min*mm Hg) 07/29/2023 10:32 AM CDT [facility] HB 7.40 g(Hb)/dL 07/29/2023 10:32 AM CDT [facility] VA 4.05 L 07/29/2023 10:32 AM CDT [facility] PulseRest 50.00 1/min 07/29/2023 10:32 AM CDT [facility] TLC 4.43 L 07/29/2023 10:32 AM CDT [facility] FRCPLETH PROVBASE 2.72 L 07/29/2023 10:32 AM CDT [facility] RV 1.96 L 07/29/2023 10:32 AM CDT [facility] RV % TLC PRE 44.12 % 07/29/2023 10:32 AM CDT [facility] 07/29/2023 9:02 AM CDT Impressions [facility] - 07/29/2023 10:32 AM CDT Abnormal study. [...] Sera Hyman M.D., Ph.D. 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 [address] [place] [phone] PCP - General Internal Medicine 11/23/17 documented as of this encounter
--- OUTSIDE RECORDS SUMMARY | 2023-09-06 06:17 | XMS_ITS | Encounter Summary ---
Author Name Unknown Organization [facility] Address [address] [place] [address] Care Team Providers Care Dishing Machine Operator Name Role Phone Clover Delaney M.D. Primary Care Provider [phone] Reason for Referral * Outpatient (Routine) - Authorized Specialty Diagnoses / Procedures Referred By Contac t Referred To Contact Clover Delaney M.D. [address] [place] [address] [facility] Region Referral ID Status Reason Start Date Expiration Date V isits Requested Visits Authorized [id number] Authorized 06/30/2023 12/29/2024 1 1 Scheduling Instructions Nurse AWV Do not schedule prior to due date to ensure insurance coverage Visit: Medicare Annual Wellness Never done. LOGIC DEVELOPER Encounter Details Date Type Department Care Team (Late st Contact Info) Description 06/30/2023 [facility] Clover Delaney M.D. [address] [place] [address] Social History Tobacco Use Types [...] PHQ-2 Score 2 05/28/2023 [facility] [place] [facility] - Occupational Stress Questionnaire Answer Date [...] Sex Assigned at Male 05/13/2021 10:11 AM MARKLOGIC DEVELOPER Gender Identity Male 11/02/2017 7:22 PM CDT Sexual Orientation Straight 11/02/2017 7: 22 PM CDT documented as of this encounter Plan of Treatment Upcoming Encounters Date Type Department Care Team (Latest Contact Info) Description 09/08/2023 10:00 AM CDT Appointment Department of Laboratory Medicine in [place] [address] [place] [address] Sera Casiano M.D., Ph.D. [address] [place] [phone] 09/08/2023 10:10 AM CDT Appointment Department of Laboratory Medicine in [place] [address] [place] [address] Sera Casiano M.D., Ph.D. [address] [place] [phone] 09/08/2023 2:00 PM CDT Virtual Visit Department of Family Medicine, [facility], in [address] [phone] Clover Delaney M.D. [address] [place] [phone] Discharge Disposition: Home or Self Care 09/10/2023 10:45 AM CDT Clinical Communication Virtual Review in [place], [place] 200 [place] [address] 09/10/2023 2:30 PM CDT Ancillary Procedure Department of Cardiovascular Diseases in [address] [phone] Clover Delaney M.D. [address] [place] [phone] Discharge Disposition: Home or Self Care 09/14/2023 9:30 AM CDT Comprehensive Visit Division of Pulmonary Medicine in [place], [place] [address] [place] [phone] Luis Carrion M.B.BJosé LuisSJosé Luis [address] [place] [phone] 10/01/2023 9:30 AM CDT Comprehensive Visit Department of Cardiovascular Diseases in [address] [phone] Nikko Dey M.D. [address] [place] [phone] Discharge Disposition: Home or Self Care 10/27/2023 2:25 PM CDT Appointment Department of Cardiovascular Diseases in [place], [place] [address] [place] [phone] Clover Delaney M.D. [address] [place] [phone] Discharge Disposition: Home or Self Care Scheduled Referrals Name Type Priority Associated Diagnoses Orde r Schedule Primary Care nurse visit (clinic) - [facility] Region; Medicare Annual Wellness Outpatient Referral Routine Expected: 07/28/2023, Expires: 12/27/2023 documented as of this encounter Visit Diagnoses Not on filedocumented in this encounter Additional Health Concerns Assessment Noted Time PHQ-9 Depression Total Score: 4 06/06/19 23 2:04 PM MARKLOGIC DEVELOPER documented as of this encounter Care Teams Dishing Machine Operator Relationship Specialty Start Date End Date Clover Delaney M.D. [address] [place] [phone] PCP - General Internal Medicine 11/23/17 documented as of this encounter
--- OUTSIDE RECORDS SUMMARY | 2023-09-06 06:17 | XMS_ITS | Encounter Summary ---
Author Name Unknown Organization [facility] Address [address] [place] [address] Care Team Providers Care Adult Basic Education Manager Name Role Phone Clover Delaney M.D. Primary Care Provider +1- [phone] Encounter Details Date Type Department Care Team (Latest Contact Info) Description 07/06/2023 9:06 AM CDT - 07/06/2023 11:59 PM CDT Hospital Encounter Department of Laboratory Medicine in [address] [place] [phone] Sera Casiano M.D., Ph.D. [address] [place] [address] Hypertension And Chronic Kidney Disease Stage 5 [...] Answer Date Recorded PHQ-2 Score 2 05/28/2023 [facility] [place] of Occupat ional Health - Occupational Stress [...] Sex Assigned at Male 05/13/2021 10:11 AM HIGH PRESSURE OPERATOR Gender Identity Male 11/02/2017 7:22 PM [...] mouth as needed. miscellaneous medical supply [facility] CPAP Supplies See Instructions, CPAP machine, mask 1 ea x 4 refills, headgear 1 ea x 2 refills, tubing 1 ea x 4 refills, filters 2 ea per month, tub 1 ea x 2 refills, mask seal 1 ea x 2 refills DX G47.33, length of need 99, 1 each, 0 Refill(s) 10/20/2016 miscellaneous medical supply [facility] Head Gear for CPAP Machine See Instructions, fax to patient at [phone], 1 each 01/17/2014 MULTIVITAMIN ORAL Daily Multiple [...] CDT Appointment Department of Laboratory Medicine in [place] [address] [place] [address] Sera Casiano M.D., Ph.D. [address] [place] [phone] 09/08/2023 10:10 AM CDT Appointment Department of Laboratory Medicine in [place] [address] [place] [address] Sera Casiano M.D., Ph.D. [address] [place] [phone] 09/08/2023 2:00 PM CDT Virtual Visit Department of Family Medicine, [facility], in [address] [phone] Clover Delaney M.D. [address] [place] [phone] Discharge Disposition: Home or Self Care 09/10/2023 10:45 AM CDT Clinical Communication Virtual Review in [place], [place] 200 [place] [address] 09/10/2023 2:30 PM CDT Ancillary Procedure Department of Cardiovascular Diseases in [address] [phone] Clover Delaney M.D. [address] [place] [phone] Discharge Disposition: Home or Self Care 09/14/2023 9:30 AM CDT Comprehensive Visit Division of Pulmonary Medicine in [place], [place] [address] [place] [phone] Luis Carrion M.B.BJosé LuisS. [address] [place] [phone] 10/01/2023 9:30 AM CDT Comprehensive Visit Department of Cardiovascular Diseases in [address] [phone] Nikko Dey M.D. [address] [place] [phone] Discharge Disposition: Home or Self Care 10/27/2023 2:25 PM CDT Appointment Department of Cardiovascular Diseases in [place], [place] [address] [place] [address] Clover Delaney M.D. [address] [place] [phone] Discharge Disposition: Home or Self Care documented [...] LAB UR INE ORDERABLES Performing Organization Address City/State/[facility] Co de Phone Number [facility] [address] [place] [address], [facility] in [address] [phone] * (ABNORMAL) Protein/Creatinine Ratio, Random, Urine (07/06/2023 [...] Hyman M.D., Ph.D. LAB UR INE ORDERABLES [facility] [address] [place] [place] [address], [facility] in [place] [address] [place] [phone] * (ABNORMAL) Urinalysis, with Microscopic: Urine, Midstream [...] 8.0 07/06/2023 12:06 PM CDT [facility] Specific [place] 1.013 1.001 - 1.035 07/06/2023 12:06 PM [...] Hyman M.D., Ph.D. 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 [address] [place] [phone] PCP - General Internal Medicine 11/23/17 documented as of this encounter
--- OUTSIDE RECORDS SUMMARY | 2023-09-06 06:17 | XMS_ITS | Encounter Summary ---
Author Name Unknown Organization [facility] Address [address] [place] [address] Care Team Providers Care Automation Manager Name Role Phone Clover Delaney M.D. Primary Care Provider +1- [phone] Reason for Visit * Reason Comments home blood pressure monitor check * Outpatient (Routine) - Closed Specialty Diagnoses / Procedures Referred By Contanthony t Referred To Contact Nephrology and Hypertension Sera Casiano M.D., Ph.D. [address] [place] [phone] [facility] Referral ID Status Reason Start Date Expiration Date Visits Re quested Visits Authorized [id number] Closed 06/26/2023 12/25/2024 1 1 Encounter Details Date Type Department Care Team (Late st Contact Info) Description 07/10/2023 2:30 PM CDT Nurse Only Division of Nephrology and Hypertension in [place], [place] [address] [place] [phone] Sera Casiano M.D., Ph.D. [address] [place] [phone] Aislinn Sharma R.N. [address] [place] [phone] home blood pressure monitor check Social History [...] 05/28/2023 [facility] of Occupat ional [facility] - Occupational Stress Questionnaire Answer [...] Sex Assigned at Male 05/13/2021 10:11 AM CALENDER TENDER Gender Identity Male 11/02/2017 7:22 PM CDT Sexual Orientation Straight 11/02/2017 7: 22 PM CDT documented as of this encounter Last Filed Vital Signs Vital Sign Reading Time Taken Comments Blood Pressure 07/10/2023 3:05 PM CDT Pulse - - Temperature - - Respiratory Rate - - Oxygen Saturation - - Inhaled Oxygen Concentration - - Weight - - Height - - Body Mass Index - - documented in this encounter Progress Notes * Aislinn Sharma RJosé LuisN. - 07/10/2023 2:30 PM CDT Riccardo brought [...] CDT Appointment Department of Laboratory Medicine in [address] [place] [phone] Sera Casiano M.D., Ph.D. [address] [place] [phone] 09/08/2023 10:10 AM CDT Appointment Department of Laboratory Medicine in [address] [place] [address] Sera Casiano M.D., Ph.D. [address] [place] [phone] 09/08/2023 2:00 PM CDT Virtual Visit Department of Family Medicine, [facility], in [address] [phone] Clover Delaney M.D. 701 [place] [phone] Discharge Disposition: Home or Self Care 09/10/2023 10:45 AM CDT Clinical Communication Virtual Review in [place], [place] 200 [place] [address] 09/10/2023 2:30 PM CDT Ancillary Procedure Department of Cardiovascular Diseases in [address] [phone] Clover Delaney M.D. 701 [place] [phone] Discharge Disposition: Home or Self Care 09/14/2023 9:30 AM CDT Comprehensive Visit Division of Pulmonary Medicine in [place], [place] [address] [place] [phone] Luis Carrion M.B.B.S. [address] [place] [phone] 10/01/2023 9:30 AM CDT Comprehensive Visit Department of Cardiovascular Diseases in [place], [place] 701 [place] [phone] Nikko Dey M.D. 701 [place] [phone] Discharge Disposition: Home or Self Care 10/27/2023 2:25 PM CDT Appointment Department of Cardiovascular Diseases in [place], [place] [address] [place] [address] Clover Delaney M.D. 701 [place] [phone] Discharge Disposition: Home or Self Care documented as of this encounter Visit Diagnoses Diagnosis Hypertensive Chronic Kidney Disease With Stage 5 Chronic Kidney Disease Or End Stage Renal Disease, Chronic Kidney Disease Stage 5 (HCC)- Primary documented in this encounter Additional Health Concerns Assessment Noted Time PHQ-9 Depression Total Score: 4 06/06/19 23 2:04 PM CALENDER TENDER documented as of this encounter Care Teams Automation Manager Relationship Specialty Start Date End Date Clover Delaney M.D. [address] [place] [phone] PCP - General Internal Medicine 11/23/17 documented as of this encounter
--- OUTSIDE RECORDS SUMMARY | 2023-09-06 06:17 | XMS_ITS | Encounter Summary ---
Author Name Unknown Organization [facility] Address [address] [place] [address] Care Team Providers Care Cost Report Clerk Name Role Phone Clover Delaney M.D. Primary Care Provider [phone]- [phone] Encounter Details Date Type Department Care Team (Latest Contact Info) Description 07/06/2023 9:06 AM CDT - 07/06/2023 11:59 PM CDT Hospital Encounter Department of Laboratory Medicine in [address] [place] [phone] Sera Casiano M.D., Ph.D. 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 miscellaneous medical supply [facility] CPAP Supplies See Instructions, CPAP machine, mask 1 ea x 4 refills, headgear 1 ea x 2 refills, tubing 1 ea x 4 refills, filters 2 ea per month, tub 1 ea x 2 refills, mask seal 1 ea x 2 refills DX G47.33, length of need 99, 1 each, 0 Refill(s) 10/20/2016 miscellaneous medical supply [facility] Head Gear for CPAP Machine See Instructions, fax to patient at [phone], 1 each 01/17/2014 MULTIVITAMIN ORAL Daily Multiple [...] CDT Appointment Department of Laboratory Medicine in [place] [address] [place] [address] Sera Casiano M.D., Ph.D. [address] [place] [phone] 09/08/2023 10:10 AM CDT Appointment Department of Laboratory Medicine in [place] [address] [place] [address] Sera Casiano M.D., Ph.D. [address] [place] [phone] 09/08/2023 2:00 PM CDT Virtual Visit Department of Family Medicine, [facility] [place], in [address] [phone] Clover Delaney M.D. [address] [place] [phone] Discharge Disposition: Home or Self Care 09/10/2023 10:45 AM CDT Clinical Communication Virtual Review in [place], [place] 200 [place] [address] 09/10/2023 2:30 PM CDT Ancillary Procedure Department of Cardiovascular Diseases in [address] [address] Clover Delaney M.D. [address] [place] [phone] Discharge Disposition: Home or Self Care 09/14/2023 9:30 AM CDT Comprehensive Visit Division of Pulmonary Medicine in [place], [place] [address] [place] [phone] Luis Carrion M.B.B.S. [address] [place] [phone] 10/01/2023 9:30 AM CDT Comprehensive Visit Department of Cardiovascular Diseases in [address] [phone] Nikko Dey M.D. [address] [place] [phone] Discharge Disposition: Home or Self Care 10/27/2023 2:25 PM CDT Appointment Department of Cardiovascular Diseases in [place], [place] [address] [place] [phone] Clover Delaney M.D. [address] [place] [phone] Discharge Disposition: Home or Self Care documented [...] Comment: Biotin has been identified by the auto research engineer as a potential interfering substance. Higher concentrations of biotin may be found in multivitamins, hair/nail supplements, and workout supplements. If the result does not match clinical observations, repeat testing after patient refrains from the use of supplements for at least 12 hours. Blood (Blood, Venous) 07/06/2023 9:22 AM CDT 07/06/2023 11:51 AM CDT Sera Hyman M.D., Ph.D. LAB BL OOD ADD-ON [facility] [address] [place] [address], [place] [facility] in [place] [address] [place] [address] * (ABNORMAL) Iron and Total Iron-Binding Capacity (07/06/2023 9:22 AM CDT) Pathologist [facility] [place] Iron 52 50 - 150 mcg/dL 07/06/2023 12:48 PM CDT [facility] Total Iron Binding Capacity 222(L) 250 - 400 mcg/dL 07/06/2023 12:48 PM CDT [facility] Percent Saturation 23 14 - 50 % 07/06/2023 12:48 PM CDT [facility] Blood (Blood, Venous) 07/06/2023 9:22 AM CDT 07/06/2023 11:51 AM CDT Sera Hyman M.D., Ph.D. LAB BL OOD ADD-ON [facility] 701 [facility] [place] [address], [facility] in [place] 701 [place] [address] * (ABNORMAL) CBC with Differential, Blood (07/06/2023 9:22 AM CDT) Pathologist [facility] Hemoglobin 7.4(L) 13.2 - 16.6 g/dL 07/06/2023 [...] Hyman M.D., Ph.D. LAB BL OOD ADD-ON [facility] [address] [place] [address], [place] [address], [facility] in [place] [address] [place] [address], [place] [address] * (ABNORMAL) Uric Acid (07/06/2023 9:22 AM CDT) Uric Acid, P 10.4(H) 3.7 - 8.0 mg/dL 07/06/2023 12:35 PM CDT [facility] Blood (Blood, Venous) 07/06/2023 9:22 AM CDT 07/06/2023 11:51 AM CDT Sera Hyman M.D., Ph.D. LAB BL OOD ADD-ON [facility] [address] [place] [address], [place] [address], [facility] in [place] [address] [place] [address], [place] [address] * (ABNORMAL) Cystatin C with Estimated GFR [...] Hyman M.D., Ph.D. LAB BL OOD ADD-ON [place] [address] [place] [address], [facility] [address] [address] * (ABNORMAL) Renal Function Panel (07/06/2023 9:22 [...] Hyman M.D., Ph.D. 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 [address] [place] [address] [place] [phone] PCP - General Internal Medicine 11/23/17 documented as of this encounter
--- OUTSIDE RECORDS SUMMARY | 2023-09-06 06:17 | XMS_ITS | Encounter Summary ---
Author Name Unknown Organization [facility] Address [address] [place] [address] Care Team Providers Care Produce Runner Name Role Phone Clover Delaney M.D. Primary Care Provider +[phone]- [phone] Encounter Details Date Type Department Care Team (Late st Contact Info) Description 07/17/2023 Orders Only Division of Nephrology and Hypertension in [place], [place] [address] [place] [address] Sera Casiano M.D., Ph.D. [address] [place] [address] Social History Tobacco Use Types Packs/Day Years [...] Date Recorded PHQ-2 Score 2 05/28/2023 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 [address] [place] [phone] 09/08/2023 10:10 AM CDT Appointment Department of Laboratory Medicine in [place], [place] [address] [place] [address] Sera Casiano M.D., Ph.D. [address] [place] [phone] 09/08/2023 2:00 PM CDT Virtual Visit Department of Family Medicine, [facility], in [address] [phone] Clover Delaney M.D. 701 [place] [phone] Discharge Disposition: Home or Self Care 09/10/2023 10:45 AM CDT Clinical Communication Virtual Review in [place], [place] 200 [place] [address] 09/10/2023 2:30 PM CDT Ancillary Procedure Department of Cardiovascular Diseases in [address] [address] Clover Delaney M.D. 701 [place] [phone] Discharge Disposition: Home or Self Care 09/14/2023 9:30 AM CDT Comprehensive Visit Division of Pulmonary Medicine in [place], [place] [address] [place] [phone] Luis Carrion M.B.B.S. [address] [place] [phone] 10/01/2023 9:30 AM CDT Comprehensive Visit Department of Cardiovascular Diseases in [place], [place] 701 [place] [phone] Nikko Dey M.D. 701 [place] [phone] Discharge Disposition: Home or Self Care 10/27/2023 2:25 PM CDT Appointment Department of Cardiovascular Diseases in [place], [place] [address] [place] [address] Clover Delaney M.D. [address] [place] [phone] Discharge Disposition: Home or Self Care documented as of this encounter Visit Diagnoses Not on filedocumented in this encounter Additional Health Concerns Assessment Noted Time PHQ-9 Depression Total Score: 4 06/06/19 23 2:04 PM TELEPHONE ORDER SUPERVISOR documented as of this encounter Care Teams Produce Runner Relationship Specialty Start Date End Date Clover Delaney M.D. [address] [place] [phone] PCP - General Internal Medicine 11/23/17 documented as of this encounter
--- OUTSIDE RECORDS SUMMARY | 2023-09-06 06:17 | XMS_ITS | Encounter Summary ---
Author Name Unknown Organization [facility] Address [address] [place] [address] Care Team Providers Care Candle Maker Name Role Phone Clover Delaney M.D. Primary Care Provider [phone]- [phone] Encounter Details Date Type Department Care Team (Late st Contact Info) Description 06/30/2023 Orders Only Division of Nephrology and Hypertension in [place], [place] [address] [place] [address] Sera Casiano M.D., Ph.D. 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 Never 07/28/2022 Do you belong to [...] Answer Date Recorded PHQ-2 Score 2 05/28/2023 [facility] of Occupat ional Health - Occupational [...] Assigned at Male 05/13/2021 10:11 AM SENIOR CONTROLLER Gender Identity Male 11/02/2017 7:22 PM CDT Sexual Orientation Straight 11/02/2017 7: 22 PM CDT documented as of this encounter Plan of Treatment Upcoming Encounters Date Type Department Care Team (Latest Contact Info) Description 09/08/2023 10:00 AM CDT Appointment Department of Laboratory Medicine in [place] [address] [place] [address] Sera Casiano M.D., Ph.D. [address] [place] [phone] 09/08/2023 10:10 AM CDT Appointment Department of Laboratory Medicine in [place], [place] [address] [place] [phone] Sera Casiano M.D., Ph.D. [address] [place] [phone] 09/08/2023 2:00 PM CDT Virtual Visit Department of Family Medicine, [facility], in [address] [phone] Clover Delaney M.D. 701 [place] [address] Discharge Disposition: Home or Self Care 09/10/2023 10:45 AM CDT Clinical Communication Virtual Review in [address] [phone] 09/10/2023 2:30 PM CDT Ancillary Procedure Department of Cardiovascular Diseases in [address] [phone] Clover Delaney M.D. 701 [place] [phone] Discharge Disposition: Home or Self Care 09/14/2023 9:30 AM CDT Comprehensive Visit Division of Pulmonary Medicine in [address] [address] Luis Carrion M.B.BJosé LuisS. [address] [place] [address] 10/01/2023 9:30 AM CDT Comprehensive Visit Department of Cardiovascular Diseases in [place], [place] 701 [place] [phone] Nikko Dey M.D. [address] [place] [phone] Discharge Disposition: Home or Self Care 10/27/2023 2:25 PM CDT Appointment Department of Cardiovascular Diseases in [place], [place] [address] [place] [address] Clover Delaney M.D. 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 [address] [place] [phone] PCP - General Internal Medicine 11/23/17 documented as of this encounter
--- OUTSIDE RECORDS SUMMARY | 2023-09-06 06:18 | XMS_ITS | Encounter Summary ---
Author Name Unknown Organization [facility] Address [address] [place] [address] Care Team Providers Care Staff Air Tactical Officer Name Role Phone Clover Delaney M.D. Primary Care Provider +1 [phone] Reason for Referral * Specialty Diagnoses / Procedures Referred By Yenny hunter Referred To Contact [facility] [address] [place] [address] [facility] Referral ID Status Reason Start Date Expiration Date Visits Re quested Visits Authorized Scheduling Instructions Coordinate with Dr. North's visit please - kandice Hopkins RUBBER MOLDER Encounter Details Date Type Department Care Team (Late st Contact Info) Description 06/16/2023 Orders Only Division of Nephrology and Hypertension in [place], [place] [address] [place] [phone] Sandeep Galicia, R.N. 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 Never 07/28/2022 Do you [...] Answer Date Recorded PHQ-2 Score 2 05/28/2023 [facility] of Occupat ional Health [...] Sex Assigned at Male 05/13/2021 10:11 AM FOAM RUBBER MOLDER Gender Identity Male 11/02/2017 7:22 PM CDT Sexual Orientation Straight 11/02/2017 7: 22 PM CDT documented as of this encounter Plan of Treatment Upcoming Encounters Date Type Department Care Team (Latest Contact Info) Description 09/08/2023 10:00 AM CDT Appointment Department of Laboratory Medicine in [place] [address] [place] [phone] Sera Casiano M.D., Ph.D. [address] [place] [phone] 09/08/2023 10:10 AM CDT Appointment Department of Laboratory Medicine in [place] [address] [place] [address] Sera Casiano M.D., Ph.D. [address] [place] [phone] 09/08/2023 2:00 PM CDT Virtual Visit Department of Family Medicine, [facility], in [address] [phone] Clover Delaney M.D. [address] [place] [phone] Discharge Disposition: Home or Self Care 09/10/2023 10:45 AM CDT Clinical Communication Virtual Review in [address] [phone] 09/10/2023 2:30 PM CDT Ancillary Procedure Department of Cardiovascular Diseases in [address] [phone] Clover Delaney M.D. [address] [place] [phone] Discharge Disposition: Home or Self Care 09/14/2023 9:30 AM CDT Comprehensive Visit Division of Pulmonary Medicine in [place], [place] [address] [place] [phone] Luis Carrion M.B.B.SJosé Luis [address] [place] [phone] 10/01/2023 9:30 AM CDT Comprehensive Visit Department of Cardiovascular Diseases in [place], [place] [address] [place] [phone] Nikko Dey M.D. [address] [place] [phone] Discharge Disposition: Home or Self Care 10/27/2023 2:25 PM CDT Appointment Department of Cardiovascular Diseases in [place], [place] [address] [place] [address] Clover Delaney M.D. [address] [place] [phone] Discharge Disposition: Home or Self Care Scheduled Referrals Name Type Priority Associated Diagnoses Order Schedule Nephrology - Chronic kidney disease education visit (clinic) Outpatient Referral Routine Chronic Kidney Disease Stage 4 Glomerular Filtration Rate 15-29 (HCC) Expected: 06/26/2023, Expires: 09/13/2024 documented as of this encounter Visit Diagnoses Diagnosis Chronic Kidney Disease Stage 4 Glomerular Filtration Rate 15-29 (HCC)- Primary documented in this encounter Additional Health Concerns Assessment Noted Time PHQ-9 Depression Total Score: 4 06/06/19 23 2:04 PM FOAM RUBBER MOLDER documented as of this encounter Care Teams Staff Air Tactical Officer Relationship Specialty Start Date End Date Clover Delaney M.D. [address] [place] [phone] PCP - General Internal Medicine 11/23/17 documented as of this encounter
--- OUTSIDE RECORDS SUMMARY | 2023-09-06 06:18 | XMS_ITS | Encounter Summary ---
Author Name Unknown Organization [facility] Address [address] [place] [address] Care Team Providers Care Activities Assistant Name Role Phone Clover Delaney M.D. Primary Care Provider +1- [phone] Reason for Referral * Outpatient (Routine) - Closed Specialty Diagnoses / Procedures Referred By Contanthony t Referred To Contact Nephrology and Hypertension Sera Casiano M.D., Ph.D. [address] [place] [phone] [facility] Referral ID Status Reason Start Date Expiration Date Visits Re quested Visits Authorized [id number] Closed 06/15/2023 12/14/2024 1 1 Scheduling Instructions 4 PM DEVELOPER Encounter Details Date Type Department Care Team (Late st Contact Info) Description 06/15/2023 Orders Only Division of Nephrology and Hypertension in [place], [place] [address] [place] [phone] Sera Casiano M.D., Ph.D. [address] [place] [phone] Chronic Kidney Disease Stage 5 Glomerular Filtration [...] Recorded PHQ-2 Score 2 05/28/2023 [facility] of Occupat ional Health - Occupational Stress [...] Sex Assigned at Male 05/13/2021 10:11 AM RUBY DEVELOPER Gender Identity Male 11/02/2017 7:22 PM CDT Sexual Orientation Straight 11/02/2017 7: 22 PM CDT documented as of this encounter Plan of Treatment Upcoming Encounters Date Type Department Care Team (Latest Contact Info) Description 09/08/2023 10:00 AM CDT Appointment Department of Laboratory Medicine in [place] [address] [place] [address] Sera Casiano M.D., Ph.D. [address] [place] [phone] 09/08/2023 10:10 AM CDT Appointment Department of Laboratory Medicine in [place] [address] [place] [address] Sera Casiano M.D., Ph.D. [address] [place] [phone] 09/08/2023 2:00 PM CDT Virtual Visit Department of Family Medicine, [facility], in [address] [phone] Clover Delaney M.D. [address] [place] [phone] Discharge Disposition: Home or Self Care 09/10/2023 10:45 AM CDT Clinical Communication Virtual Review in [place], [place] 200 [place] [address] 09/10/2023 2:30 PM CDT Ancillary Procedure Department of Cardiovascular Diseases in [address] [phone] Clover Delaney M.D. [address] [place] [phone] Discharge Disposition: Home or Self Care 09/14/2023 9:30 AM CDT Comprehensive Visit Division of Pulmonary Medicine in [place], [place] [address] [place] [phone] Luis Carrion M.B.B.S. [address] [place] [phone] 10/01/2023 9:30 AM CDT Comprehensive Visit Department of Cardiovascular Diseases in [address] [phone] Nikko Dey M.D. [address] [place] [phone] Discharge Disposition: Home or Self Care 10/27/2023 2:25 PM CDT Appointment Department of Cardiovascular Diseases in [place], [place] [address] [place] [address] Clover Delaney M.D. [address] [place] [phone] Discharge Disposition: Home or Self Care Scheduled Referrals Name Type Priority Associated Diagnoses Order Schedule Nephrology and Hypertension office visit (clinic) Outpatient Referral Routine Expected: 06/26/2023, Expires: 09/12/2024 documented as of this encounter Results * (ABNORMAL) Basic Metabolic Panel (06/15/2023 4:06 PM RUBY DEVELOPER) Potassium, S 5.6(H) 3.6 - 5.2 mmol/L 06/15/2023 4:59 PM RUBY DEVELOPER DTL Sodium, S 142 135 - 145 mmol/L 06/15/2023 4:59 PM RUBY DEVELOPER DTL Chloride, S 105 98 - 107 mmol/L 06/15/2023 4:59 PM RUBY DEVELOPER DTL Bicarbonate, S 23 22 - 29 mmol/L 06/15/2023 4:59 PM RUBY DEVELOPER DTL Anion Gap 14 7 - 15 06/15/2023 4:59 PM RUBY DEVELOPER DTL BUN (Blood Urea Nitrogen), S 68(H) 8 - 24 mg/dL 06/15/2023 4:59 PM RUBY DEVELOPER DTL Creatinine 4.61(H) 0.74 - 1.35 mg/dL 06/15/2023 4:59 PM RUBY DEVELOPER DTL Estimated GFR (eGFR) <15(L) >=60 mL/min/BSA 06/15/2023 4:59 PM RUBY DEVELOPER DTL Comment: Estimated GFR calculated using the 2020 CKD_EPI creatinine equation. Calcium, Total, S 8.8 8.8 - 10.2 mg/dL 06/15/2023 4:59 PM RUBY DEVELOPER DTL Glucose, S 130 70 - 140 mg/dL 06/15/2023 4:59 PM RUBY DEVELOPER DTL Blood (Blood, Venous) 06/15/2023 4:06 PM RUBY DEVELOPER 06/15/2023 4:42 PM RUBY DEVELOPER Sera Hyman M.D., Ph.D. LAB BL OOD ADD-ON [facility] 200 [place] [address], [facility] 200 [place] [address] documented in this encounter Visit Diagnoses Diagnosis Chronic Kidney Disease Stage 5 Glomerular Filtration Rate Less Than 15 (HCC)- Primary documented in this encounter Additional Health Concerns Assessment Noted Time PHQ-9 Depression Total Score: 4 06/06/19 23 2:04 PM RUBY DEVELOPER documented as of this encounter Care Teams Activities Assistant Relationship Specialty Start Date End Date Clover Delaney M.D. [address] [place] [phone] PCP - General Internal Medicine 11/23/17 documented as of this encounter
--- OUTSIDE RECORDS SUMMARY | 2023-09-06 06:18 | XMS_ITS | Encounter Summary ---
Author Name Unknown Organization [facility] Address [address] [place] [address] Care Team Providers Care Bench Lay Out Technician Name Role Phone Clover Delaney M.D. 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 [address] [place] [phone] [facility] Referral ID Status Reason Start Date Expiration Date Visits Re quested Visits Authorized [id number] Closed 06/01/2023 05/31/2024 1 1 Encounter Details Date Type Department Care Team (Latest Contact Info) Description 06/26/2023 8:15 AM MUSIC EXECUTIVE Internal E-Consult Division of Pulmonary Medicine in [place], [place] [address] [place] [phone] Louie Aleman M.D. 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 CT CT Job ID: [id number]/bas C EXECUTIVE documented in this encounter Plan of Treatment Upcoming Encounters Date Type Department Care Team (Latest Contact Info) Description 09/08/2023 10:00 AM CDT Appointment Department of Laboratory Medicine in [place] [address] [place] [phone] Sera Casiano M.D., Ph.D. [address] [place] [phone] 09/08/2023 10:10 AM CDT Appointment Department of Laboratory Medicine in [place], [place] [address] [place] [address] Sera Casiano M.D., Ph.D. [address] [place] [phone] 09/08/2023 2:00 PM CDT Virtual Visit Department of Family Medicine, [facility], in [address] [place] [phone] Clover Delaney M.D. [address] [place] [phone] Discharge Disposition: Home or Self Care 09/10/2023 10:45 AM CDT Clinical Communication Virtual Review in [place], [place] 200 [place] [phone] 09/10/2023 2:30 PM CDT Ancillary Procedure Department of Cardiovascular Diseases in [address] [phone] Clover Delaney M.D. [address] [place] [phone] Discharge Disposition: Home or Self Care 09/14/2023 9:30 AM CDT Comprehensive Visit Division of Pulmonary Medicine in [address] [phone] Luis Carrion M.B.BJosé LuisS. [address] [place] [phone] 10/01/2023 9:30 AM CDT Comprehensive Visit Department of Cardiovascular Diseases in [address] [phone] Nikko Dey M.D. [address] [place] [phone] Discharge Disposition: Home or Self Care 10/27/2023 2:25 PM CDT Appointment Department of Cardiovascular Diseases in [address] [phone] Clover Delaney M.D. 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 701 [place] [phone] PCP - General Internal Medicine 11/23/17 documented as of this encounter
--- OUTSIDE RECORDS SUMMARY | 2023-09-06 06:18 | XMS_ITS | Encounter Summary ---
Author Name Unknown Organization [facility] Address [address] [place] [address] Care Team Providers Care Senior Director Creative Services Name Role Phone Clover Delaney M.D. Primary Care Provider +1- [phone] Encounter Details Date Type Department Care Team (Late st Contact Info) Description 06/15/2023 Orders Only Division of Nephrology and Hypertension in [place], [place] [address] [place] [address] Sera Casiano M.D., Ph.D. [address] [place] [phone] Chronic Kidney Disease Stage 5 Glomerular Filtration [...] Answer Date Recorded PHQ-2 Score 2 05/28/2023 [facility] of Occupat ional Health - Occupational [...] Sex Assigned at Male 05/13/2021 10:11 AM APPOINTMENT CLERK Gender Identity Male 11/02/2017 7:22 PM CDT Sexual Orientation Straight 11/02/2017 7: 22 PM CDT documented as of this encounter Plan of Treatment Upcoming Encounters Date Type Department Care Team (Latest Contact Info) Description 09/08/2023 10:00 AM CDT Appointment Department of Laboratory Medicine in [place] [address] [place] [address] Sera Casiano M.D., Ph.D. [address] [place] [phone] 09/08/2023 10:10 AM CDT Appointment Department of Laboratory Medicine in [place], [place] [address] [place] [address] Sera Casiano M.D., Ph.D. [address] [place] [phone] 09/08/2023 2:00 PM CDT Virtual Visit Department of Family Medicine, [facility], in [address] [phone] Clover Delaney M.D. 701 [place] [phone] Discharge Disposition: Home or Self Care 09/10/2023 10:45 AM CDT Clinical Communication Virtual Review in [address] [phone] 09/10/2023 2:30 PM CDT Ancillary Procedure Department of Cardiovascular Diseases in [address] [phone] Clover Delaney M.D. 701 [place] [phone] Discharge Disposition: Home or Self Care 09/14/2023 9:30 AM CDT Comprehensive Visit Division of Pulmonary Medicine in [address] [phone] Luis Carrion M.B.BJosé LuisS. [address] [place] [address] 10/01/2023 9:30 AM CDT Comprehensive Visit Department of Cardiovascular Diseases in [address] [phone] Nikko Dey M.D. [address] [place] [phone] Discharge Disposition: Home or Self Care 10/27/2023 2:25 PM CDT Appointment Department of Cardiovascular Diseases in [place], [place] [address] [place] [address] Clover Delaney M.D. [address] [place] [phone] Discharge Disposition: Home or Self Care documented as of this encounter Results * QuantiFERON-Tb Gold Plus, Blood (06/15/2023 4:07 PM APPOINTMENT CLERK) [facility] QuantiFERON-TB Gold Plus Result Negative Negative 06/16/2023 12:08 PM APPOINTMENT CLERK [facility] Comment: No interferon-gamma response to M. [...] Nil Result 0.02 IU/mL 06/16/2023 12:08 PM APPOINTMENT CLERK [facility] TB2 Ag minus Nil Result 0.01 IU/mL 06/16/2023 12:08 PM APPOINTMENT CLERK [facility] Mitogen minus Nil Result 3.42 IU/mL 06/16/2023 12:08 PM APPOINTMENT CLERK [facility] Nil Result 0.04 IU/mL 06/16/2023 12:08 PM APPOINTMENT CLERK [facility] Blood (Blood, Venous) 06/15/2023 4:07 PM APPOINTMENT CLERK 06/15/2023 5:59 PM APPOINTMENT CLERK Narrative [facility] - 06/16/2023 12:08 PM APPOINTMENT CLERK Specimen Information: Specimen ID: [id number] Specimen Type: Blood Specimen Collection Start Date: 06/15/2023 ??4:07 PM Specimen Received Date: 06/15/2023 ??5:59 PM Specimen ID: [id number] Specimen Type: Blood Specimen Collection Start Date: 06/15/2023 ??4:07 PM Specimen Received Date: 06/15/2023 ??5:59 PM Specimen ID: [id number] Specimen Type: Blood Specimen Collection Start Date: 06/15/2023 ??4:07 PM Specimen Received Date: 06/15/2023 ??5:59 PM Specimen ID: [id number] Specimen Type: Blood Specimen Collection Start Date: 06/15/2023 ??4:07 PM Specimen Received Date: 06/15/2023 ??5:59 PM Sera Hyman M.D., Ph.D. LAB [facility] BLOOD ORDERABLES Performing Organization Address City/State/[facility] Co de Phone Number [facility] [address] [place] [address] [facility] [address] [place] [address] * Hepatitis B Surface Antigen (06/15/2023 4:06 PM APPOINTMENT CLERK) HBs Antigen, S Negative Negative 06/15/2023 10:03 PM APPOINTMENT CLERK [facility] Blood (Blood, Venous) 06/15/2023 4:06 PM APPOINTMENT CLERK 06/15/2023 8:15 PM APPOINTMENT CLERK Sera Hyman M.D., Ph.D. LAB [place] CROBIOLOGY - BLOOD ORDERABLES Performing Organization Address City/[facility] Co de Phone Number [facility] [address] [place] [address] [facility] [address] [place] [address] * HCV Ab w/Reflex to HCV PCR, Serum (06/15/2023 4:06 PM APPOINTMENT CLERK) HCV Ab, S Negative Negative 06/15/2023 10:21 PM APPOINTMENT CLERK [facility] Comment:Rkyius-af-xboqak rat io is <1.00. Blood (Blood, Venous) 06/15/2023 4:06 PM APPOINTMENT CLERK 06/15/2023 8:15 PM APPOINTMENT CLERK Sera Hyman M.D., Ph.D. LAB [facility] BLOOD ORDERABLES Performing Organization Address City/[facility] Co de Phone Number [facility] [address] [place] [address] [facility] [address] [place] [address] * HBc Total Ab, Serum (06/15/2023 4:06 PM APPOINTMENT CLERK) HBc Total Ab, S Negative Negative 06/15/2023 10:17 PM APPOINTMENT CLERK [facility] Blood (Blood, Venous) 06/15/2023 4:06 PM APPOINTMENT CLERK 06/15/2023 8:15 PM APPOINTMENT CLERK Sera Hyman M.D., Ph.D. LAB [facility] BLOOD ORDERABLES Performing Organization Address City/[facility]/ZIP Co de Phone Number [facility] [address] [place] [address] [facility] [address] [place] [address] * HBs Antibody, Serum (06/15/2023 4:06 PM APPOINTMENT CLERK) HBs Antibody, S Negative 06/15/2023 10:18 PM APPOINTMENT CLERK [facility] Comment: Patient is presumed to be not immune to infection with HBV. ----REFERENCE VALUE---- Unvaccinated: Negative Vaccinated: Positive HBs Antibody, Quantitative, S <5.0 mIU/mL 06/15/2023 10:18 PM APPOINTMENT CLERK [facility] Comment: ----REFERENCE VALUE---- Unvaccinated: <5.0 Vaccinated: >=12.0 Blood (Blood, Venous) 06/15/2023 4:06 PM APPOINTMENT CLERK 06/15/2023 8:15 PM APPOINTMENT CLERK Sera Hyman M.D., Ph.D. LAB [place] CROBIOLOGY - BLOOD ORDERABLES [facility] [address] [place] [address] [facility] [address] 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 [address] [place] [phone] PCP - General Internal Medicine 11/23/17 documented as of this encounter
--- OUTSIDE RECORDS SUMMARY | 2023-09-06 06:18 | XMS_ITS | Encounter Summary ---
Author Name Unknown Organization [facility] Address [address] [place] [id number] Care Team Providers Care Net Mender Name Role Phone Clover Delaney M.D. 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 [address] [place] [phone] [facility] Referral ID Status Reason Start Date Expiration Date Visits Re quested Visits Authorized [id number] Closed 06/26/2023 12/25/2024 1 1 Scheduling Instructions VIDEO VISIT. This appointment should ideally be scheduled AFTER the Desizing Pad Operator Consults, but must at least be scheduled 48 hours after 24-hour urine collection is complete. Virtual visit is acceptable for this dietitian visit. WORKER * Outpatient (Routine) - Closed Specialty Diagnoses / Procedures Referred By Yenny hunter Referred To Contact Nephrology and Hypertension Sera Casiano M.D., Ph.D. 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 [address] [place] [phone] [facility] Referral ID Status Reason Start Date Expiration Date Visits Re quested Visits Authorized [id number] Closed 06/26/2023 12/25/2024 1 1 WORKER * Outpatient (Routine) - Closed Specialty Diagnoses / Procedures Referred By Contac t Referred To Contact Nephrology and Hypertension Sera Casiano M.D., Ph.D. [address] [place] [phone] [facility] Referral ID Status Reason Start Date Expiration Date Visits Re quested Visits Authorized [id number] Closed 06/26/2023 12/25/2024 1 1 WORKER Reason for Visit * Outpatient (Routine) - Closed Specialty Diagnoses / Procedures Referred By Yenny hunter Referred To Contact Nephrology and Hypertension Sera Casiano M.D., Ph.D. [address] [place] [address] [facility] Referral ID Status Reason Start Date Expiration Date Visits Re quested Visits Authorized [id number] Closed 06/15/2023 12/14/2024 1 1 Encounter Details Date Type Department Care Team (Latest Contact Info) Description 06/26/2023 4:00 PM BEET WORKER Office Visit Division of Nephrology and Hypertension in [place], [place] [address] [place] [phone] Sera Casiano M.D., Ph.D. [address] [place] [phone] Chronic Kidney Disease Stage 5 [...] Answer Date Recorded PHQ-2 Score 2 05/28/2023 [facility] ional [facility] - Occupational Stress Questionnaire Answer Date Recorded [...] Sex Assigned at Male 05/13/2021 10:11 AM BEET WORKER Gender Identity Male 11/02/2017 7:22 PM CDT Sexual Orientation Straight 11/02/2017 7: 22 PM CDT documented as of this encounter Patient Instructions * Patient Instructions* Sera Casiano M.D., Ph.D. - 06/26/2023 4:00 PM BEET WORKER Low potassium diet. Recheck potassium level on Thursday Bring your BP device for validation (nurse visit) Increase dose of doxazosin to 4 mg at bedtime Continue to monitor your BP Referral to vascular access clinic Ultrasound of arms to check for vessels for vascular access Dietitian appointment Continue Aranesp and Iron WORKER documented in this encounter Progress Notes [...] visit in July to be done at [facility]. WORKER documented in this encounter Plan of Treatment Upcoming Encounters Date Type Department Care Team (Latest Contact Info) Description 09/08/2023 10:00 AM CDT Appointment Department of Laboratory Medicine in [address] [place] [address] Sera Casiano M.D., Ph.D. [address] [place] [phone] 09/08/2023 10:10 AM CDT Appointment Department of Laboratory Medicine in [address] [place] [address] Sera Casiano M.D., Ph.D. [address] [place] [phone] 09/08/2023 2:00 PM CDT Virtual Visit Department of Family Medicine, [facility], in [address] [phone] Clover Delaney M.D. [address] [place] [phone] Discharge Disposition: Home or Self Care 09/10/2023 10:45 AM CDT Clinical Communication Virtual Review in [place], [place] 200 [place] [address] 09/10/2023 2:30 PM CDT Ancillary Procedure Department of Cardiovascular Diseases in [address] [phone] Clover Delaney M.D. [address] [place] [phone] Discharge Disposition: Home or Self Care 09/14/2023 9:30 AM CDT Comprehensive Visit Division of Pulmonary Medicine in [place], [place] [address] [place] [phone] Luis Carrion M.B.B.S. [address] [place] [phone] 10/01/2023 9:30 AM CDT Comprehensive Visit Department of Cardiovascular Diseases in [address] [phone] Nikko Dey M.D. [address] [place] [phone] Discharge Disposition: Home or Self Care 10/27/2023 2:25 PM CDT Appointment Department of Cardiovascular Diseases in [place], [place] [address] [place] [address] Clover Delaney M.D. [address] [place] [phone] Discharge Disposition: Home or Self Care Scheduled [...] PROCEDURES * (ABNORMAL) Ferritin (06/29/2023 12:11 PM BEET WORKER) Pathologist [facility] Ferritin, S 487(H) 31 - 409 mcg/L 06/29/2023 1:44 PM BEET WORKER DTL Blood (Blood, Venous) 06/29/2023 12:11 PM BEET WORKER 06/29/2023 12:47 PM BEET WORKER Sera Hyman M.D., Ph.D. LAB BL OOD ADD-ON [facility] [address] [place] [address], [facility] [address] [place] [address] * (ABNORMAL) Iron and Total Iron-Binding Capacity (06/29/2023 12:11 PM BEET WORKER) [facility] Iron 51 50 - 150 mcg/dL 06/29/2023 1:44 PM BEET WORKER DTL Total Iron Binding Capacity 221(L) 250 - 400 mcg/dL 06/29/2023 1:44 PM BEET WORKER DTL Percent Saturation 23 14 - 50 % 06/29/2023 1:44 PM BEET WORKER DTL Blood (Blood, Venous) 06/29/2023 12:11 PM BEET WORKER 06/29/2023 12:47 PM BEET WORKER Sera Hyman M.D., Ph.D. LAB BL OOD ADD-ON [facility] [address] [place] [address], [facility] DTL [facility] [address] [place] [address] * (ABNORMAL) Renal Function Panel (06/29/2023 12:11 PM BEET WORKER) Potassium, S 4.5 3.6 - 5.2 mmol/L 06/29/2023 1:44 PM BEET WORKER DTL Sodium, S 143 135 - 145 mmol/L 06/29/2023 1:44 PM BEET WORKER DTL Chloride, S 104 98 - 107 mmol/L 06/29/2023 1:44 PM BEET WORKER DTL Bicarbonate, S 24 22 - 29 mmol/L 06/29/2023 1:44 PM BEET WORKER DTL Anion Gap 15 7 - 15 06/29/2023 1:44 PM BEET WORKER DTL BUN (Blood Urea Nitrogen), S 69(H) 8 - 24 mg/dL 06/29/2023 1:44 PM BEET WORKER DTL Creatinine 4.51(H) 0.74 - 1.35 mg/dL 06/29/2023 1:44 PM BEET WORKER DTL Estimated GFR (eGFR) <15(L) >=60 mL/min/BSA 06/29/2023 1:44 PM BEET WORKER DTL Comment: Estimated GFR calculated using the 2020 CKD_EPI creatinine equation. Calcium, Total, S 8.5(L) 8.8 - 10.2 mg/dL 06/29/2023 1:44 PM BEET WORKER DTL Glucose, S 97 70 - 140 mg/dL 06/29/2023 1:44 PM BEET WORKER DTL Albumin, S 4.0 3.5 - 5.0 g/dL 06/29/2023 1:44 PM BEET WORKER DTL Phosphorus (Inorganic), S 4.9(H) 2.5 - 4.5 mg/dL 06/29/2023 1:44 PM BEET WORKER DTL Blood (Blood, Venous) 06/29/2023 12:11 PM BEET WORKER 06/29/2023 12:47 PM BEET WORKER Sera Hyman M.D., Ph.D. 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 [address] [place] [phone] PCP - General Internal Medicine 11/23/17 documented as of this encounter
--- OUTSIDE RECORDS SUMMARY | 2023-09-06 06:18 | XMS_ITS | Encounter Summary ---
Author Name Unknown Organization [facility] Address [address] [place] [address] Care Team Providers Care Concrete Engineer Name Role Phone Clover Delaney M.D. Primary Care Provider [phone]- [phone] Encounter Details Date Type Department Care Team (Late st Contact Info) Description 06/26/2023 3:00 PM MEDICATION TECH Education Division of Nephrology and Hypertension in [place], [place] [address] [place] [phone] Sera Casiano M.D., Ph.D. [address] [place] [phone] Sandeep Galicia, R.N. [address] [place] [phone] Chronic Kidney Disease Stage 4 Glomerular Filtration [...] How often do you attend chur or hindu services? Never 07/28/2022 Do you [...] Answer Date Recorded PHQ-2 Score 2 05/28/2023 [facility] of Occupat ional Health - Occupational Stress [...] Sex Assigned at Male 05/13/2021 10:11 AM MEDICATION TECH Gender Identity Male 11/02/2017 7:22 PM CDT Sexual Orientation Straight 11/02/2017 7: 22 PM CDT documented as of this encounter Progress Notes * Sandeep Galicia R.N. - 06/26/2023 3:00 PM CST Patient was here today for third education visit on renal replacement therapies with Kidney Mail Order Clerk Nurse patient states that he is feeling better than earlier this month. We reviewed patient'sblood pressure, dietary restrictions and weights. We discussed that he will need to plan soon for dialysis catheter/fistula placement soon at his local [facility] dialysis clinic in [place]. I discussed that the decision to stat dialysis is decided by a decision with Dr. Armenta and him. Patient and verbalized understanding. Contact information for Kidney Mail Order Clerk nurse was provided. Patient will be scheduled for follow up with Kidney Mail Order Clerk nurse. CATION TECH documented in this encounter Plan of Treatment Upcoming Encounters Date Type Department Care Team (Latest Contact Info) Description 09/08/2023 10:00 AM CDT Appointment Department of Laboratory Medicine in [place], [place] [address] [place] [address] Sera Casiano M.D., Ph.D. [address] [place] [phone] 09/08/2023 10:10 AM CDT Appointment Department of Laboratory Medicine in [place], [place] [address] [place] [phone] Sera Casiano M.D., Ph.D. [address] [place] [phone] 09/08/2023 2:00 PM CDT Virtual Visit Department of Family Medicine, [facility], in [address] [phone] Clover Delaney M.D. [address] [place] [phone] Discharge Disposition: Home or Self Care 09/10/2023 10:45 AM CDT Clinical Communication Virtual Review in [place], [place] [address] [place] [address] 09/10/2023 2:30 PM CDT Ancillary Procedure Department of Cardiovascular Diseases in [address] [phone] Clover Delaney M.D. [address] [place] [phone] Discharge Disposition: Home or Self Care 09/14/2023 9:30 AM CDT Comprehensive Visit Division of Pulmonary Medicine in [place], [place] [address] [place] [phone] Luis Carrion M.B.B.SJosé Luis [address] [place] [phone] 10/01/2023 9:30 AM CDT Comprehensive Visit Department of Cardiovascular Diseases in [place], [place] [address] [place] [phone] Nikko Dey M.D. [address] [place] [phone] Discharge Disposition: Home or Self Care 10/27/2023 2:25 PM CDT Appointment Department of Cardiovascular Diseases in [place], [place] [address] [place] [phone] Clover Delaney M.D. [address] [place] [phone] Discharge Disposition: Home or Self Care documented as of this encounter Visit Diagnoses Diagnosis Chronic Kidney Disease Stage 4 Glomerular Filtration Rate 15-29 (HCC) documented in this encounter Additional Health Concerns Assessment Noted Time PHQ-9 Depression Total Score: 4 06/06/19 23 2:04 PM MEDICATION TECH documented as of this encounter Care Teams Concrete Engineer Relationship Specialty Start Date End Date Clover Delaney M.D. [address] [place] [phone] PCP - General Internal Medicine 11/23/17 documented as of this encounter
--- OUTSIDE RECORDS SUMMARY | 2023-09-06 06:18 | XMS_ITS | Encounter Summary ---
Author Name Unknown Organization [facility] Address [address] [place] [address] Care Team Providers Care Zoo Director Name Role Phone Clover Delaney M.D. Primary Care Provider +1- [phone] Encounter Details Date Type Department Care Team (Latest Contact Info) Description 06/15/2023 3:20 PM SALES AND MARKETING PROFESSIONAL - 06/15/2023 11:59 PM [facility] Hospital Encounter Department of Laboratory Medicine and Pathology, [facility], in [place], [place] [address] [place] [address] Sera Casiano M.D., Ph.D. [address] [place] [phone] Chronic Kidney Disease Stage 5 Glomerular Filtration [...] Answer Date Recorded PHQ-2 Score 2 05/28/2023 [facility] [place] of Occupat ional Health - Occupational Stress [...] Sex Assigned at Male 05/13/2021 10:11 AM SALES AND MARKETING PROFESSIONAL Gender Identity Male 11/02/2017 7:22 PM CDT Sexual Orientation Straight 11/02/2017 7: 22 PM CDT documented as of this encounter Medications at Time of Discharge Medication Sig Dispensed Refills Start Date End Date aspirin 81 mg chewable tablet Chew 1 tablet (81 mg total) daily. 90 tablet 3 01/06/2020 BD Ultra-Fine Joesfina Pen Needle 32 gauge x 5/32 needle [...] Machine See Instructions, fax to patient at [phone], 1 each 01/17/2014 MULTIVITAMIN ORAL Daily Multiple [...] mouth daily. 90 tablet 3 05/29/2023 06/16/2023 carvediloL (COREG) 12.5 mg tablet TAKE ONE TABLET BY MOUTH TWICE A DAY WITH MEALS 180 tablet 3 09/03/2022 08/28/2023 doxazosin (CARDURA) 2 mg tablet Take 1 [...] Department of Laboratory Medicine in [place] [address] [place] [address] Sera Casiano M.D., Ph.D. [address] [place] [phone] 09/08/2023 10:10 AM CDT Appointment Department of Laboratory Medicine in [place] [address] [place] [address] Sera Casiano M.D., Ph.D. [address] [place] [phone] 09/08/2023 2:00 PM CDT Virtual Visit Department of Family Medicine, [facility], in [address] [phone] Clover Delaney M.D. [address] [place] [phone] Discharge Disposition: Home or Self Care 09/10/2023 10:45 AM CDT Clinical Communication Virtual Review in [address] [phone] 09/10/2023 2:30 PM CDT Ancillary Procedure Department of Cardiovascular Diseases in [address] [phone] Clover Delaney M.D. [address] [place] [phone] Discharge Disposition: Home or Self Care 09/14/2023 9:30 AM CDT Comprehensive Visit Division of Pulmonary Medicine in [place], [place] [address] [place] [address] Luis Carrion M.B.B.S. [address] [place] [address] 10/01/2023 9:30 AM CDT Comprehensive Visit Department of Cardiovascular Diseases in [address] [phone] Nikko Dey M.D. [address] [place] [phone] Discharge Disposition: Home or Self Care 10/27/2023 2:25 PM CDT Appointment Department of Cardiovascular Diseases in [place], [place] [address] [place] [address] Clover Delaney M.D. [address] [place] [phone] Discharge Disposition: Home or Self Care documented as of this encounter Procedures Procedure Name Priority Date/Time Associated Diagnosis Comments QUANTIFERON-TB GOLD PLUS, B Routine 06/15/2023 4:07 PM SALES AND MARKETING PROFESSIONAL Chronic Kidney Disease Stage 5 Glomerular Filtration Rate Less Than 15 (HCC) HCV AB W/REFLEX TO HCV PCR, S Routine 06/15/2023 4:06 PM SALES AND MARKETING PROFESSIONAL Chronic Kidney Disease Stage 5 Glomerular Filtration Rate Less Than 15 (HCC) HBC TOTAL AB, SERUM Routine 06/15/2023 4 :06 PM SALES AND MARKETING PROFESSIONAL Chronic Kidney Disease Stage 5 Glomerular Filtration Rate Less Than 15 (HCC) HBS ANTIBODY, SERUM Routine 06/15/2023 4 :06 PM SALES AND MARKETING PROFESSIONAL Chronic Kidney Disease Stage 5 Glomerular Filtration Rate Less Than 15 (HCC) HEPATITIS B SURFACE ANTIGEN Routine 06/15/2023 4:06 PM SALES AND MARKETING PROFESSIONAL Chronic Kidney Disease Stage 5 Glomerular Filtration Rate Less Than 15 (HCC) BASIC METABOLIC PANEL, S/P Routine 06/15/2023 4:06 PM SALES AND MARKETING PROFESSIONAL Chronic Kidney Disease Stage 5 Glomerular Filtration Rate Less Than 15 (HCC) documented in this encounter Results * QuantiFERON-Tb Gold Plus, Blood (06/15/2023 4:07 PM SALES AND MARKETING PROFESSIONAL) [facility] QuantiFERON-TB Gold Plus Result Negative Negative 06/16/2023 12:08 PM SALES AND MARKETING PROFESSIONAL [facility] Comment: No interferon-gamma response to M. [...] Nil Result 0.02 IU/mL 06/16/2023 12:08 PM SALES AND MARKETING PROFESSIONAL [facility] TB2 Ag minus Nil Result 0.01 IU/mL 06/16/2023 12:08 PM SALES AND MARKETING PROFESSIONAL [facility] Mitogen minus Nil Result 3.42 IU/mL 06/16/2023 12:08 PM SALES AND MARKETING PROFESSIONAL [facility] Nil Result 0.04 IU/mL 06/16/2023 12:08 PM SALES AND MARKETING PROFESSIONAL [facility] Blood (Blood, Venous) 06/15/2023 4:07 PM SALES AND MARKETING PROFESSIONAL 06/15/2023 5:59 PM SALES AND MARKETING PROFESSIONAL Narrative [facility] - 06/16/2023 12:08 PM SALES AND MARKETING PROFESSIONAL Specimen Information: Specimen ID: [id number] Specimen Type: Blood Specimen Collection Start Date: 06/15/2023 ??4:07 PM Specimen Received Date: 06/15/2023 ??5:59 PM Specimen ID: [id number] Specimen Type: Blood Specimen Collection Start Date: 06/15/2023 ??4:07 PM Specimen Received Date: 06/15/2023 ??5:59 PM Specimen ID: [id number] Specimen Type: Blood Specimen Collection Start Date: 06/15/2023 ??4:07 PM Specimen Received Date: 06/15/2023 ??5:59 PM Specimen ID: [id number] Specimen Type: Blood Specimen Collection Start Date: 06/15/2023 ??4:07 PM Specimen Received Date: 06/15/2023 ??5:59 PM Sera Hyman M.D., Ph.D. LAB VT CROBIOLOGY - BLOOD ORDERABLES [facility] [address] [place] [address] [facility] [address] [place] [address] * (ABNORMAL) Basic Metabolic Panel (06/15/2023 4:06 PM SALES AND MARKETING PROFESSIONAL) Pathologist [facility] Potassium, S 5.6(H) 3.6 - 5.2 mmol/L 06/15/2023 4:59 PM SALES AND MARKETING PROFESSIONAL [facility] Sodium, S 142 135 - 145 mmol/L 06/15/2023 4:59 PM SALES AND MARKETING PROFESSIONAL [facility] Chloride, S 105 98 - 107 mmol/L 06/15/2023 4:59 PM SALES AND MARKETING PROFESSIONAL [facility] Bicarbonate, S 23 22 - 29 mmol/L 06/15/2023 4:59 PM SALES AND MARKETING PROFESSIONAL [facility] Anion Gap 14 7 - 15 06/15/2023 4:59 PM SALES AND MARKETING PROFESSIONAL [facility] BUN (Blood Urea Nitrogen), S 68(H) 8 - 24 mg/dL 06/15/2023 4:59 PM SALES AND MARKETING PROFESSIONAL [facility] Creatinine 4.61(H) 0.74 - 1.35 mg/dL 06/15/2023 4:59 PM SALES AND MARKETING PROFESSIONAL D[facility] Estimated GFR (eGFR) <15(L) >=60 mL/min/BSA 06/15/2023 4:59 PM SALES AND MARKETING PROFESSIONAL [facility] Comment: Estimated GFR calculated using the 2020 CKD_EPI creatinine equation. Calcium, Total, S 8.8 8.8 - 10.2 mg/dL 06/15/2023 4:59 PM SALES AND MARKETING PROFESSIONAL [facility] Glucose, S 130 70 - 140 mg/dL 06/15/2023 4:59 PM SALES AND MARKETING PROFESSIONAL [facility] Blood (Blood, Venous) 06/15/2023 4:06 PM SALES AND MARKETING PROFESSIONAL 06/15/2023 4:42 PM SALES AND MARKETING PROFESSIONAL Sera Hyman M.D., Ph.D. LAB BL OOD ADD-ON Performing Organization Address City/[facility]/ZIP Co de Phone Number [facility] [address] [place] [address], [facility] DTL [facility] [address] [place] [address] * Hepatitis B Surface Antigen (06/15/2023 4:06 PM SALES AND MARKETING PROFESSIONAL) Pathologist [facility] HBs Antigen, S Negative Negative 06/15/2023 10:03 PM SALES AND MARKETING PROFESSIONAL [facility] Blood (Blood, Venous) 06/15/2023 4:06 PM SALES AND MARKETING PROFESSIONAL 06/15/2023 8:15 PM SALES AND MARKETING PROFESSIONAL Sera Hyman M.D., Ph.D. LAB VT CROBIOLOGY - BLOOD ORDERABLES Performing Organization Address [facility] [place]/[facility] Co de Phone Number [facility] [address] [place] [phone] [place] [address] [place] [address] * HCV Ab w/Reflex to HCV PCR, Serum (06/15/2023 4:06 PM SALES AND MARKETING PROFESSIONAL) HCV Ab, S Negative Negative 06/15/2023 10:21 PM SALES AND MARKETING PROFESSIONAL [facility] Comment:Pneums-au-ucnmml rat io is <1.00. Blood (Blood, Venous) 06/15/2023 4:06 PM SALES AND MARKETING PROFESSIONAL 06/15/2023 8:15 PM SALES AND MARKETING PROFESSIONAL Sera Hyman M.D., Ph.D. LAB VT CROBIOLOGY - BLOOD ORDERABLES [facility] [address] [place] [address] [facility] [address] [place] [address] * HBc Total Ab, Serum (06/15/2023 4:06 PM SALES AND MARKETING PROFESSIONAL) HBc Total Ab, S Negative Negative 06/15/2023 10:17 PM SALES AND MARKETING PROFESSIONAL [facility] Blood (Blood, Venous) 06/15/2023 4:06 PM SALES AND MARKETING PROFESSIONAL 06/15/2023 8:15 PM SALES AND MARKETING PROFESSIONAL Sera Hyman M.D., Ph.D. LAB VT CROBIOLOGY - BLOOD ORDERABLES [facility] [address] [place] [address] [facility] [address] [place] [address] * HBs Antibody, Serum (06/15/2023 4:06 PM SALES AND MARKETING PROFESSIONAL) HBs Antibody, S Negative 06/15/2023 10:18 PM SALES AND MARKETING PROFESSIONAL [facility] Comment: Patient is presumed to be not immune to infection with HBV. ----REFERENCE VALUE---- Unvaccinated: Negative Vaccinated: Positive HBs Antibody, Quantitative, S <5.0 mIU/mL 06/15/2023 10:18 PM SALES AND MARKETING PROFESSIONAL [facility] Comment: ----REFERENCE VALUE---- Unvaccinated: <5.0 Vaccinated: >=12.0 Blood (Blood, Venous) 06/15/2023 4:06 PM SALES AND MARKETING PROFESSIONAL 06/15/2023 8:15 PM SALES AND MARKETING PROFESSIONAL Sera Hyman M.D., Ph.D. LAB [email or web address] - BLOOD ORDERABLES Performing Organization Address City/[facility]/ZIP Co de Phone Number [facility] [address] [place] [address] [facility] [address] [place] [address] documented in this encounter Visit Diagnoses Diagnosis Chronic Kidney Disease Stage 5 Glomerular Filtration Rate Less Than 15 (HCC) documented in this encounter Additional Health Concerns Assessment Noted Time PHQ-9 Depression Total Score: 4 06/06/19 23 2:04 PM SALES AND MARKETING PROFESSIONAL documented as of this encounter Care Teams Zoo Director Relationship Specialty Start Date End Date Clover Delaney M.D. [address] [place] [phone] PCP - General Internal Medicine 11/23/17 documented as of this encounter
--- OUTSIDE RECORDS SUMMARY | 2023-09-06 06:18 | XMS_ITS | Encounter Summary ---
Author Name Unknown Organization [facility] Address [address] [place] [address] Care Team Providers Care Mathematics Department Chair Name Role Phone Clover Delaney M.D. Primary Care Provider +1- [phone] Encounter Details Date Type Department Care Team (Latest Contact Info) Description 06/15/2023 2:30 PM MARKETING DIRECTOR ASSISTED LIVING Ancillary Procedure Department of Ophthalmology in [place], [place] [address] [place] [address] Justin Bunch M.D. [address] [place] [address] Diabetes Mellitus Type 2 With Proliferative Diabetic [...] Date Recorded PHQ-2 Score 2 05/28/2023 [facility] of Occupat ional Health - [...] Sex Assigned at Male 05/13/2021 10:11 AM MARKETING DIRECTOR ASSISTED LIVING Gender Identity Male 11/02/2017 7:22 PM CDT Sexual Orientation Straight 11/02/2017 7: 22 PM CDT documented as of this encounter Plan of Treatment Upcoming Encounters Date Type Department Care Team (Latest Contact Info) Description 09/08/2023 10:00 AM CDT Appointment Department of Laboratory Medicine in [place] [address] [place] [address] Sera Casiano M.D., Ph.D. [address] [place] [phone] 09/08/2023 10:10 AM CDT Appointment Department of Laboratory Medicine in [place] [address] [place] [phone] Sera Casiano M.D., Ph.D. [address] [place] [phone] 09/08/2023 2:00 PM CDT Virtual Visit Department of Family Medicine, [facility], in [address] [phone] Clover Delaney M.D. [address] [place] [phone] Discharge Disposition: Home or Self Care 09/10/2023 10:45 AM CDT Clinical Communication Virtual Review in [address] [phone] 09/10/2023 2:30 PM CDT Ancillary Procedure Department of Cardiovascular Diseases in [address] [phone] Clover Delaney M.D. [address] [place] [phone] Discharge Disposition: Home or Self Care 09/14/2023 9:30 AM CDT Comprehensive Visit Division of Pulmonary Medicine in [address] [phone] Luis Carrion M.B.B.S. [address] [place] [address] 10/01/2023 9:30 AM CDT Comprehensive Visit Department of Cardiovascular Diseases in [place], [place] [address] [place] [phone] Nikko Dey M.D. [address] [place] [phone] Discharge Disposition: Home or Self Care 10/27/2023 2:25 PM CDT Appointment Department of Cardiovascular Diseases in [place], [place] [address] [place] [address] Clover Delaney M.D. 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 OCT device [...] Total Score: 4 06/06/19 23 2:04 PM MARKETING DIRECTOR ASSISTED LIVING documented as of this encounter Care Teams Mathematics Department Chair Relationship Specialty Start Date End Date Clover Delaney M.D. [address] [place] [phone] PCP - General Internal Medicine 11/23/17 documented as of this encounter
--- OUTSIDE RECORDS SUMMARY | 2023-09-06 06:18 | XMS_ITS | Encounter Summary ---
Author Name Unknown Organization [facility] Address [address] [place] [address] Care Team Providers Care Spreading Machine Operator Name Role Phone Clover Delaney M.D. Primary Care Provider [phone]- [phone] Encounter Details Date Type Department Care Team [...] Sex Assigned at Male 05/13/2021 10:11 AM BLEACHER OPERATOR Gender Identity Male 11/02/2017 7:22 PM CDT Sexual Orientation Straight 11/02/2017 7: 22 PM CDT documented as of this encounter Plan of Treatment Upcoming Encounters Date Type Department Care Team (Latest Contact Info) Description 09/08/2023 10:00 AM CDT Appointment Department of Laboratory Medicine in [address] [place] [address] Sera Casiano M.D., Ph.D. [address] [place] [phone] 09/08/2023 10:10 AM CDT Appointment Department of Laboratory Medicine in [address] [place] [phone] Sera Casiano M.D., Ph.D. [address] [place] [phone] 09/08/2023 2:00 PM CDT Virtual Visit Department of Family Medicine, [facility], in [address] [phone] Clover Delaney M.D. [address] [place] [phone] Discharge Disposition: Home or Self Care 09/10/2023 10:45 AM CDT Clinical Communication Virtual Review in [place], [place] 200 [place] [address] 09/10/2023 2:30 PM CDT Ancillary Procedure Department of Cardiovascular Diseases in [address] [phone] Clover Delaney M.D. [address] [place] [phone] Discharge Disposition: Home or Self Care 09/14/2023 9:30 AM CDT Comprehensive Visit Division of Pulmonary Medicine in [place], [place] [address] [place] [phone] Luis Carrion M.B.B.S. [address] [place] [phone] 10/01/2023 9:30 AM CDT Comprehensive Visit Department of Cardiovascular Diseases in [address] [phone] Nikko Dey M.D. [address] [place] [phone] Discharge Disposition: Home or Self Care 10/27/2023 2:25 PM CDT Appointment Department of Cardiovascular Diseases in [place], [place] [address] [place] [address] Clover Delaney M.D. [address] [place] [phone] Discharge Disposition: Home or Self Care documented as of this encounter Procedures Procedure Name Priority Date/Time Associated Diagnosis Comments OPHTHALMOLOGY IMAGE EXAM Routine 06/15/2023 12:00 AM BLEACHER OPERATOR documented in this encounter Results * Eyes Spectralis OCT-Ophthalmology Image Exam (06/15/2023 12:00 AM BLEACHER OPERATOR) Narrative [facility] - 06/15/2023 2:28 PM BLEACHER OPERATOR This order has been created and auto-finalized [...] Total Score: 4 06/06/19 23 2:04 PM BLEACHER OPERATOR documented as of this encounter Care Teams Spreading Machine Operator Relationship Specialty Start Date End Date Clover Delaney M.D. [address] [place] [phone] PCP - General Internal Medicine 11/23/17 documented as of this encounter
--- OUTSIDE RECORDS SUMMARY | 2023-09-06 06:18 | XMS_ITS | Encounter Summary ---
Author Name Unknown Organization [facility] Address [address] [place] [address] Care Team Providers Care Cutting Table Operator Name Role Phone Clover Delaney M.D. Primary Care Provider +1- [phone] Reason for Referral * Outpatient (Routine) - Authorized Specialty Diagnoses / Procedures Referred By Contanthony t Referred To Contact Ophthalmology Justin Bunch M.D. [address] [place] [address] [facility] Referral ID Status Reason Start Date Expiration Date V isits Requested Visits Authorized [id number] Authorized 06/15/2023 12/14/2024 1 1 C PROMOTER Encounter Details Date Type Department Care Team (Late st Contact Info) Description 06/15/2023 Orders Only Department of Ophthalmology in [place], [place] [address] [place] [phone] Bailey Campo, C.OJosé LuisAJosé Luis [address] [place] [phone] Diabetes Mellitus Type 2 With Proliferative Diabetic [...] Date Recorded PHQ-2 Score 2 05/28/2023 [place] of Occupat ional Health - Occupational Stress [...] Assigned at Male 05/13/2021 10:11 AM MUSIC PROMOTER Gender Identity Male 11/02/2017 7:22 PM CDT Sexual Orientation Straight 11/02/2017 7: 22 PM CDT documented as of this encounter Plan of Treatment Upcoming Encounters Date Type Department Care Team (Latest Contact Info) Description 09/08/2023 10:00 AM CDT Appointment Department of Laboratory Medicine in [place] [address] [place] [address] Sera Casiano M.D., Ph.D. [address] [place] [phone] 09/08/2023 10:10 AM CDT Appointment Department of Laboratory Medicine in [place] [address] [place] [address] Sera Casiano M.D., Ph.D. [address] [place] [phone] 09/08/2023 2:00 PM CDT Virtual Visit Department of Family Medicine, [facility], in [address] [phone] Clover Delaney M.D. [address] [place] [phone] Discharge Disposition: Home or Self Care 09/10/2023 10:45 AM CDT Clinical Communication Virtual Review in [address] [phone] 09/10/2023 2:30 PM CDT Ancillary Procedure Department of Cardiovascular Diseases in [address] [phone] Clover Delaney M.D. [address] [place] [phone] Discharge Disposition: Home or Self Care 09/14/2023 9:30 AM CDT Comprehensive Visit Division of Pulmonary Medicine in [place], [place] [address] [place] [address] Luis Carrion M.B.B.S. [address] [place] [address] 10/01/2023 9:30 AM CDT Comprehensive Visit Department of Cardiovascular Diseases in [address] [phone] Nikko Dey M.D. [address] [place] [phone] Discharge Disposition: Home or Self Care 10/27/2023 2:25 PM CDT Appointment Department of Cardiovascular Diseases in [place], [place] [address] [place] [address] Clovre Delaney M.D. 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) Expected: 09/13/2023, Expires: 06/15/2026 Scheduled Referrals Name Type Priority Associated Diagnoses Order Schedule Ophthalmology office visit (clinic) Outpatient Referral Routine Expected: 09/13/2023 (Approximate), Expires: 06/15/2026 documented as of this encounter Visit Diagnoses Diagnosis 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 [address] [place] [phone] PCP - General Internal Medicine 11/23/17 documented as of this encounter
--- OUTSIDE RECORDS SUMMARY | 2023-09-06 06:18 | XMS_ITS | Encounter Summary ---
Author Name Unknown Organization [facility] Address [address] [place] [address] Care Team Providers Care Humanities Department Chair Name Role Phone Clover Delaney M.D. Primary Care Provider +1- [phone] Encounter Details Date Type Department Care Team (Late st Contact Info) Description 06/15/2023 1:00 PM PLANT BUYER Education Division of Nephrology and Hypertension in [place], [place] [address] [place] [phone] Sera Casinao M.D., Ph.D. [address] [place] [phone] Sandeep Galicia, R.N. [address] [place] [phone] Chronic Kidney Disease Stage 5 Glomerular Filtration [...] often do you attend chur ch or druze services? Never 07/28/2022 Do you belong to [...] PHQ-2 Score 2 05/28/2023 [facility] of Occupat ional Health - Occupational [...] Sex Assigned at Male 05/13/2021 10:11 AM PLANT BUYER Gender Identity Male 11/02/2017 7:22 PM CDT Sexual Orientation Straight 11/02/2017 7: 22 PM CDT documented as of this encounter Last Filed Vital Signs Vital Sign Reading Time Taken Comments Blood Pressure 189/70 06/15/2023 2:08 PM PLANT BUYER Pulse 52 06/15/2023 2:08 PM PLANT BUYER Temperature - - Respiratory Rate - - Oxygen Saturation - - Inhaled Oxygen Concentration - - Weight 157 kg (345 lb 7.4 oz) 06/15/2023 2:08 PM PLANT BUYER Height - - Body Mass Index 49.18 05/29/2023 7:57 AM PLANT BUYER documented in this encounter Progress Notes * Sandeep Galicia R.N. - 06/15/2023 1:00 PM CST Patient was here today for second education visit on renal replacement therapies with Kidney Professor Sculpture Nurse. Patient reports that he noted leg [...] is comfortable starting in center hemodialysis in [facility] if nephrology deem it necessary. Contact information for Kidney Care Advocatenurse was provided. Patient will be scheduled for follow up with Kidney Professor Sculpture nurse. T BUYER documented in this encounter Plan of Treatment Upcoming Encounters Date Type Department Care Team (Latest Contact Info) Description 09/08/2023 10:00 AM CDT Appointment Department of Laboratory Medicine in [place], [place] [address] [place] [phone] Sera Casiano M.D., Ph.D. 200 [place] [address] 09/08/2023 10:10 AM CDT Appointment Department of Laboratory Medicine in [place] [place] [address] Sera Casiano M.D., Ph.D. [address] [place] [phone] 09/08/2023 2:00 PM CDT Virtual Visit Department of Family Medicine, [facility], in [address] [phone] Clover Delaney M.D. [address] [place] [phone] Discharge Disposition: Home or Self Care 09/10/2023 10:45 AM CDT Clinical Communication Virtual Review in [place], [place] 200 [place] [phone] 09/10/2023 2:30 PM CDT Ancillary Procedure Department of Cardiovascular Diseases in [address] [phone] Clover Delaney M.D. [address] [place] [phone] Discharge Disposition: Home or Self Care 09/14/2023 9:30 AM CDT Comprehensive Visit Division of Pulmonary Medicine in [place], [place] [address] [place] [phone] Luis Carrion M.B.B.S. [address] [place] [phone] 10/01/2023 9:30 AM CDT Comprehensive Visit Department of Cardiovascular Diseases in [address] [phone] Nikko Dey M.D. [address] [place] [phone] Discharge Disposition: Home or Self Care 10/27/2023 2:25 PM CDT Appointment Department of Cardiovascular Diseases in [place], [place] [address] [place] [address] Clover Delaney M.D. [address] [place] [phone] Discharge Disposition: Home or Self Care documented as of this encounter Visit Diagnoses Diagnosis Chronic Kidney Disease Stage 5 Glomerular Filtration Rate Less Than 15 (HCC) documented in this encounter Additional Health Concerns Assessment Noted Time PHQ-9 Depression Total Score: 4 06/06/19 23 2:04 PM PLANT BUYER documented as of this encounter Care Teams Humanities Department Chair Relationship Specialty Start Date End Date Clover Delaney M.D. [address] [place] [phone] PCP - General Internal Medicine 11/23/17 documented as of this encounter
--- OUTSIDE RECORDS SUMMARY | 2023-09-06 06:18 | XMS_ITS | Encounter Summary ---
Author Name Unknown Organization [facility] Address [address] [place] [address] Care Team Providers Care Pan Devulcanizer Name Role Phone Clover Delaney M.D. Primary Care Provider +1- [phone] Encounter Details Date Type Department Care Team (Late st Contact Info) Description 06/16/2023 Orders Only Department of Community Internal Medicine in [place], [place] [address] [place] [address] [place] [phone] Clover Delaney M.D. [address] [place] [phone] Social History Tobacco Use Types [...] Answer Date Recorded PHQ-2 Score 2 05/28/2023 [facility] of Occupat ional Health - Occupational Stress [...] Sex Assigned at Male 05/13/2021 10:11 AM ORACLE APPLICATION ARCHITECT Gender Identity Male 11/02/2017 7:22 PM CDT Sexual Orientation Straight 11/02/2017 7: 22 PM CDT documented as of this encounter Plan of Treatment Upcoming Encounters Date Type Department Care Team (Latest Contact Info) Description 09/08/2023 10:00 AM CDT Appointment Department of Laboratory Medicine in [place] [address] [place] [address] Sera Casiano M.D., Ph.D. [address] [place] [phone] 09/08/2023 10:10 AM CDT Appointment Department of Laboratory Medicine in [place], [place] [address] [place] [address] Sera Casiano M.D., Ph.D. [address] [place] [phone] 09/08/2023 2:00 PM CDT Virtual Visit Department of Family Medicine, [facility], in [address] [phone] Clover Delaney M.D. [address] [place] [phone] Discharge Disposition: Home or Self Care 09/10/2023 10:45 AM CDT Clinical Communication Virtual Review in [place], [place] 200 [place] [address] 09/10/2023 2:30 PM CDT Ancillary Procedure Department of Cardiovascular Diseases in [address] [phone] Clover Delaney M.D. [address] [place] [phone] Discharge Disposition: Home or Self Care 09/14/2023 9:30 AM CDT Comprehensive Visit Division of Pulmonary Medicine in [place], [place] [address] [place] [phone] Luis Carrion M.B.B.S. [address] [place] [address] 10/01/2023 9:30 AM CDT Comprehensive Visit Department of Cardiovascular Diseases in [place], [place] 701 [place] [phone] Nikko Dey M.D. [address] [place] [phone] Discharge Disposition: Home or Self Care 10/27/2023 2:25 PM CDT Appointment Department of Cardiovascular Diseases in [place], [place] [address] [place] [address] Clover Delaney M.D. [address] [place] [phone] Discharge Disposition: Home or Self Care documented as of this encounter Visit Diagnoses Not on filedocumented in this encounter Additional Health Concerns Assessment Noted Time PHQ-9 Depression Total Score: 4 06/06/19 23 2:04 PM ORACLE APPLICATION ARCHITECT documented as of this encounter Care Teams Pan Devulcanizer Relationship Specialty Start Date End Date Clover Delaney M.D. [address] [place] [phone] PCP - General Internal Medicine 11/23/17 documented as of this encounter
--- OUTSIDE RECORDS SUMMARY | 2023-09-06 06:18 | XMS_ITS | Encounter Summary ---
Author Name Unknown Organization [facility] Address [address] [place] [address] Care Team Providers Care Maintenance Planner Name Role Phone Clover Delaney M.D. Primary Care Provider [phone]- [phone] Encounter Details Date Type Department Care Team (Late st Contact Info) Description 06/15/2023 Clinical Communication Division of Nephrology and Hypertension, [facility], in [place], [place] [address] [place] [address] Sandeep Galicia, RJosé LuisN. [address] [place] [phone] Social History Tobacco Use Types Packs/Day Years [...] How often do you attend chur or synagogue services? Never 07/28/2022 Do you [...] Sex Assigned at Male 05/13/2021 10:11 AM SILVERING APPLICATOR Gender Identity Male 11/02/2017 7:22 PM CDT [...] at 3:45 pm. Patient verbalized understanding plan. ERING APPLICATOR documented in this encounter Plan of Treatment Upcoming Encounters Date Type Department Care Team (Latest Contact Info) Description 09/08/2023 10:00 AM CDT Appointment Department of Laboratory Medicine in [place] [address] [place] [address] Sera Casiano M.D., Ph.D. [address] [place] [phone] 09/08/2023 10:10 AM CDT Appointment Department of Laboratory Medicine in [place] [address] [place] [address] Sera Casiano M.D., Ph.D. [address] [place] [phone] 09/08/2023 2:00 PM CDT Virtual Visit Department of Family Medicine, [facility], in [address] [phone] Clover Delaney M.D. 701 [place] [phone] Discharge Disposition: Home or Self Care 09/10/2023 10:45 AM CDT Clinical Communication Virtual Review in [address] [phone] 09/10/2023 2:30 PM CDT Ancillary Procedure Department of Cardiovascular Diseases in [address] [phone] Clover Delaney M.D. 701 [place] [phone] Discharge Disposition: Home or Self Care 09/14/2023 9:30 AM CDT Comprehensive Visit Division of Pulmonary Medicine in [place], [place] [address] [place] [address] Luis Carrion M.B.B.S. [address] [place] [address] 10/01/2023 9:30 AM CDT Comprehensive Visit Department of Cardiovascular Diseases in [place], [place] 701 [place] [phone] Nikko Dey M.D. [address] [place] [phone] Discharge Disposition: Home or Self Care 10/27/2023 2:25 PM CDT Appointment Department of Cardiovascular Diseases in [place], [place] [address] [place] [address] Clover Delaney M.D. [address] [place] [phone] Discharge Disposition: Home or Self Care documented as of this encounter Visit Diagnoses Not on filedocumented in this encounter Additional Health Concerns Assessment Noted Time PHQ-9 Depression Total Score: 4 06/06/19 23 2:04 PM SILVERING APPLICATOR documented as of this encounter Care Teams Maintenance Planner Relationship Specialty Start Date End Date Clover Delaney M.D. [address] [place] [phone] PCP - General Internal Medicine 11/23/17 documented as of this encounter
--- OUTSIDE RECORDS SUMMARY | 2023-09-06 06:18 | XMS_ITS | Encounter Summary ---
Author Name Unknown Organization [facility] Address [address] [place] [address] Care Team Providers Care Hide Dyer Name Role Phone Clover Delaney M.D. Primary Care Provider [phone] Reason for Visit * Reason Onset Date Comments Pre-visit Intake 06/24/2023 Encounter Details Date Type Department Care Team (Latest Contact Info) Description 06/24/2023 9:45 AM SURETY BOND AGENT Clinical Communication Virtual Review in [place], [place] 200 [place] [phone] Pre-visit Intake Social History Tobacco Use Types [...] How often do you attend chur or druze services? Never 07/28/2022 Do you [...] Date Recorded PHQ-2 Score 2 05/28/2023 [facility] of Occupat ional Health - Occupational [...] Sex Assigned at Male 05/13/2021 10:11 AM SURETY BOND AGENT Gender Identity Male 11/02/2017 7:22 PM CDT Sexual Orientation Straight 11/02/2017 7: 22 PM CDT documented as of this encounter Plan of Treatment Upcoming Encounters Date Type Department Care Team (Latest Contact Info) Description 09/08/2023 10:00 AM CDT Appointment Department of Laboratory Medicine in [address] [place] [address] Sera Casiano M.D., Ph.D. [address] [place] [phone] 09/08/2023 10:10 AM CDT Appointment Department of Laboratory Medicine in [place] [address] [place] [address] Sera Casiano M.D., Ph.D. [address] [place] [phone] 09/08/2023 2:00 PM CDT Virtual Visit Department of Family Medicine, [facility], in [address] [phone] Clover Delaney M.D. [address] [place] [phone] Discharge Disposition: Home or Self Care 09/10/2023 10:45 AM CDT Clinical Communication Virtual Review in [place], [place] 200 [place] [address] 09/10/2023 2:30 PM CDT Ancillary Procedure Department of Cardiovascular Diseases in [address] [phone] Clover Delaney M.D. 701 [place] [phone] Discharge Disposition: Home or Self Care 09/14/2023 9:30 AM CDT Comprehensive Visit Division of Pulmonary Medicine in [address] [phone] Luis Carrion M.B.B.S. [address] [place] [phone] 10/01/2023 9:30 AM CDT Comprehensive Visit Department of Cardiovascular Diseases in [place], [place] 701 [place] [phone] Nikko Dey M.D. 701 [place] [phone] Discharge Disposition: Home or Self Care 10/27/2023 2:25 PM CDT Appointment Department of Cardiovascular Diseases in [place], [place] [address] [place] [address] Clover Delaney M.D. [address] [place] [phone] Discharge Disposition: Home or Self Care documented as of this encounter Visit Diagnoses Not on filedocumented in this encounter Additional Health Concerns Assessment Noted Time PHQ-9 Depression Total Score: 4 06/06/19 23 2:04 PM SURETY BOND AGENT documented as of this encounter Care Teams Hide Dyer Relationship Specialty Start Date End Date Clover Delaney M.D. [address] [place] [phone] PCP - General Internal Medicine 11/23/17 documented as of this encounter
--- OUTSIDE RECORDS SUMMARY | 2023-09-06 06:19 | XMS_ITS | Encounter Summary ---
Author Name Unknown Organization [facility] Address [address] [place] [address] Care Team Providers Care Change Control Specialist Name Role Phone Clover Delaney M.D. Primary Care Provider +[phone]- [phone] Reason for Visit * Episode Based Medications (Routine) - Closed Specialty Diagnoses / Procedures Referred By Contanthony t Referred To Contact Diagnoses Malignant Neoplasm Of Transverse Colon (HCC) Anemia Of Chronic Renal Disease Procedures OH DARBEPOETIN SHER, NON-ESRD [place] DARBEPOETIN SHER, ESRD USE Mónica Portillo APRN, C.N.P., M.S. 200 [place] [address] [facility] Region Referral ID Status Reason Start Date Expiration Date Visits Re quested Visits Authorized [id number] Closed 09/03/2022 04/26/2024 12 12 Encounter Details Date Type Department Care Team (Latest Contact Info) Description 06/12/2023 10:50 AM DIE TRIMMER - 06/12/2023 11:59 PM DIE TRIMMER Hospital Encounter Department of Laboratory Medicine in [place] [address] [place] [address] Mónica Potrillo APRN, C.N.P., M.S. 200 [place] [phone] Hypertension And Chronic Kidney Disease Stage 5 [...] How often do you attend [facility] or latter-day services? Never 07/28/2022 Do you [...] Answer Date Recorded PHQ-2 Score 2 05/28/2023 [facility] of Occupat ional Health - [...] ded PHQ-9 Total Score (max 27) 4 02/10 /2023 Nutrition Answer Date Recorded Nutrition: EVOO Fat [...] Sex Assigned at Male 05/13/2021 10:11 AM DIE TRIMMER Gender Identity Male 11/02/2017 7:22 PM [...] by mouth as needed. miscellaneous medical supply [facility] CPAP Supplies See Instructions, CPAP machine, mask 1 ea x 4 refills, headgear 1 ea x 2 refills, tubing 1 ea x 4 refills, filters 2 ea per month, tub 1 ea x 2 refills, mask seal 1 ea x 2 refills DX G47.33, length of need 99, 1 each, 0 Refill(s) 10/20/2016 miscellaneous medical supply [facility] Head Gear for CPAP Machine See Instructions, fax to patient at [phone], 1 each 01/17/2014 MULTIVITAMIN ORAL Daily Multiple Vitamins See Instructions, Take 1 tablet by mouth daily. 07/23/2013 ONETOUCH DELICA LANCETS 33 gauge [facility] 3 08/02/2018 OneTouch Ultra Test StripsIndications:Diabet es [...] Department of Laboratory Medicine in [place] [address] [place] [address] Sera Casiano M.D., Ph.D. 200 [place] [address] 09/08/2023 10:10 AM CDT Appointment Department of Laboratory Medicine in [place] [address] [place] [address] Sera Casiano M.D., Ph.D. 200 [place] [address] 09/08/2023 2:00 PM CDT Virtual Visit Department of Family Medicine, [facility], in [address] [phone] Clover Delaney M.D. [address] [place] [phone] Discharge Disposition: Home or Self Care 09/10/2023 10:45 AM CDT Clinical Communication Virtual Review in [place], [place] 200 [place] [address] 09/10/2023 2:30 PM CDT Ancillary Procedure Department of Cardiovascular Diseases in [address] [phone] Clover Delaney M.D. [address] [place] [phone] Discharge Disposition: Home or Self Care 09/14/2023 9:30 AM CDT Comprehensive Visit Division of Pulmonary Medicine in [place], [place] [address] [place] [phone] Luis Carrion M.B.B.S. [address] [place] [phone] 10/01/2023 9:30 AM CDT Comprehensive Visit Department of Cardiovascular Diseases in [address] [phone] Nikko Dey M.D. [address] [place] [phone] Discharge Disposition: Home or Self Care 10/27/2023 2:25 PM CDT Appointment Department of Cardiovascular Diseases in [place], [place] [address] [place] [phone] Clover Delaney M.D. [address] [place] [phone] Discharge Disposition: Home or Self Care documented as of this encounter Procedures Procedure Name Priority Date/Time Associated Diagnosis Comments CBC WITH DIFFERENTIAL, B Routine 06/12/2023 10:53 AM DIE TRIMMER Anemia Of Chronic Renal Disease FOLATE, S Routine 06/12/2023 10:53 AM DIE TRIMMER Hypertension And Chronic Kidney Disease Stage 5 (HCC) Proteinuria 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 Acute Metabolic Acidosis Hyperphosphatemia Hypocalcemia VITAMIN B12 ASSAY, S Routine 06/12/2023 10:53 AM DIE TRIMMER Hypertension And Chronic Kidney Disease Stage 5 (HCC) Proteinuria 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 Acute Metabolic Acidosis Hyperphosphatemia Hypocalcemia documented in this encounter Results * (ABNORMAL) CBC with Differential, Blood (06/12/2023 10:53 AM DIE TRIMMER) [facility] Hemoglobin 7.4(L) 13.2 - 16.6 g/dL 06/12/2023 7:24 PM DIE TRIMMER RDWG Hematocrit 24.1(L) 38.3 - 48.6 % 06/12/2023 7:24 PM DIE TRIMMER [facility]DW[facility] Erythrocytes 2.42(L) 4.35 - 5.65 x10(12)/L 06/12/2023 7:24 PM DIE TRIMMER [facility] MCV 99.6(H) 78.2 - 97.9 fL 06/12/2023 7:24 PM DIE TRIMMER [facility] RBC Distrib Width 14.7(H) 11.8 - 14.5 % 06/12/2023 7:24 PM DIE TRIMMER [facility] Platelet Count 159 135 - 317 x10(9)/L 06/12/2023 7:24 PM DIE TRIMMER [facility]DW[facility] Leukocytes 7.6 3.4 - 9.6 x10(9)/L 06/12/2023 7:24 PM DIE TRIMMER [facility]DW[facility] Neutrophils 6.33 1.56 - 6.45 x10(9)/L 06/12/2023 7:23 PM DIE TRIMMER [facility]DW[facility] Lymphocytes 0.55(L) 0.95 - 3.07 x10(9)/L 06/12/2023 7:24 PM DIE TRIMMER [facility]DW[facility] Monocytes 0.52 0.26 - 0.81 x10(9)/L 06/12/2023 7:24 PM DIE TRIMMER [facility]DW[facility] Eosinophils 0.16 0.03 - 0.48 x10(9)/L 06/12/2023 7:24 PM DIE TRIMMER [facility]DW[facility] Basophils 0.03 0.01 - 0.08 x10(9)/L 06/12/2023 7:24 PM DIE TRIMMER [facility] Blood (Blood, Venous) 06/12/2023 10:53 AM DIE TRIMMER 06/12/2023 7:04 PM DIE TRIMMER Mónica Portillo APRN, C.N.P., M.S. LAB BLOOD ADD-ON Performing Organization Address City/[facility]/ZIP Co de Phone Number [facility] [address] [place] [address], [facility] RDWG [facility] in [place] [address] * Folate (06/12/2023 10:53 AM DIE TRIMMER) Folate, S 12.6 >=4.0 mcg/L 06/13/2023 2:09 AM DIE TRIMMER ECLR Comment: Biotin has been identified by the ordnance technician as a potential interfering substance. Higher concentrations of biotin may be found in multivitamins, hair/nail supplements, and workout supplements. If the result does not match clinical observations, repeat testing after patient refrains from the use of supplements for at least 12 hours. Blood (Blood, Venous) 06/12/2023 10:53 AM DIE TRIMMER 06/12/2023 9:30 PM DIE TRIMMER Mónica Portillo APRN, C.N.P., M.S. LAB BLOOD ADD-ON Performing Organization Address City/[facility]/ZIP Co de Phone Number [facility] [address] [place] [address], [facility] ECLR [facility] in [address] [address] * (ABNORMAL) Vitamin B12 Assay (06/12/2023 10:53 AM DIE TRIMMER) Vitamin B12 Assay, S 1249(H) 232 - 1245 ng/L 06/13/2023 2:09 AM DIE TRIMMER ECLR Comment: Biotin has been identified by the ordnance technician as a potential interfering substance. Higher concentrations of biotin may be found in multivitamins, hair/nail supplements, and workout supplements. If the result does not match clinical observations, repeat testing after patient refrains from the use of supplements for at least 12 hours. Blood (Blood, Venous) 06/12/2023 10:53 AM DIE TRIMMER 06/12/2023 9:30 PM DIE TRIMMER Mónica Portillo APRN, C.N.P., M.S. LAB BLOOD ADD-ON [facility] [address] [place] [address], [facility] ECLR [facility] [place] [address] documented in this encounter Visit Diagnoses Diagnosis Hypertensive Chronic Kidney Disease With Stage 5 Chronic Kidney Disease Or End Stage Renal Disease, Chronic Kidney Disease Stage 5 (HCC) Proteinuria 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 Acute Metabolic Acidosis Hyperphosphatemia Hypocalcemia Anemia Of Chronic Renal Disease documented in this encounter Additional Health Concerns Assessment Noted Time PHQ-9 Depression Total Score: 4 06/06/19 23 2:04 PM DIE TRIMMER documented as of this encounter Care Teams Change Control Specialist Relationship Specialty Start Date End Date Clover Delaney M.D. [address] [place] [phone] PCP - General Internal Medicine 11/23/17 documented as of this encounter
--- OUTSIDE RECORDS SUMMARY | 2023-09-06 06:19 | XMS_ITS | Encounter Summary ---
Author Name Unknown Organization [facility] Address [address] [place] [address] Care Team Providers Care Marksmanship Instructor Name Role Phone Clover Delaney M.D. Primary Care Provider [phone]- [phone] Reason for Referral * Outpatient (Routine) - Authorized Specialty Diagnoses / Procedures Referred By Yenny hunter Referred To Contact [facility] Internal Medicine Clover Delaney M.D. [address] [place] [address] [facility] Region Referral ID Status Reason Start Date Expiration Date V isits Requested Visits Authorized [id number] Authorized 05/29/2023 11/27/2024 1 1 Scheduling Instructions DM, Labs ~1-3 days before ITE CARE PROVIDER Reason for Visit * Reason Comments Medication Reaction amolodipine * Outpatient (Routine) - Closed Specialty Diagnoses / Procedures Referred By Yenny hunter Referred To Contact [facility] Internal Medicine Diagnoses Anemia Diabetes Mellitus Type 2 With Diabetic Neuropathy Hyperglycemic (HCC) Chronic Kidney Disease (CKD), Stage 3b 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 [address] [place] [address] [facility] Region Referral ID Status Reason Start Date Expiration Date Visits Re quested Visits Authorized [id number] Closed 09/02/2022 09/01/2025 1 1 Encounter Details Date Type Department Care Team (Latest Contact Info) Description 05/29/2023 8:00 AM RESPITE CARE PROVIDER Office Visit Department of Community Internal Medicine in [place], [place] [address] [place] [phone] Clover Delaney M.D. [address] [place] [address] Hypertension And Chronic Kidney Disease [...] Date Recorded PHQ-2 Score 2 05/28/2023 [facility] of Occupat ional Health - [...] Sex Assigned at Male 05/13/2021 10:11 AM RESPITE CARE PROVIDER Gender Identity Male 11/02/2017 7:22 PM CDT Sexual Orientation Straight 11/02/2017 7: 22 PM CDT documented as of this encounter Last Filed Vital Signs Vital Sign Reading Time Taken Comments Blood Pressure 203/83 05/29/2023 8:48 AM RESPITE CARE PROVIDER Pulse 54 05/29/2023 8:48 AM RESPITE CARE PROVIDER Temperature - - Respiratory Rate - - Oxygen Saturation - - Inhaled Oxygen Concentration - - Weight 156 kg (343 lb 0.6 oz) 05/29/2023 7:57 AM RESPITE CARE PROVIDER Height 178.5 cm (5' 10.28) 05/29/2023 7:57 AM Kassandra GOMEZ Body Mass Index 48.83 05/29/2023 7:57 AM RESPITE CARE PROVIDER documented in this encounter Patient Instructions * Patient Instructions* Clover Delaney M.D. - 05/29/2023 8:00 AM RESPITE CARE PROVIDER Check with insurance to see if and where (ie doctor's office? Pharmacy?) Shingrix (new shingles vaccine) is covered. You just need the 2nd dose likely at the pharmacy. ITE CARE PROVIDER documented in this encounter Progress Notes * Clover Delaney M.D. - 05/29/2023 8:00 AM CST SUBJECTIVE CHIEF COMPLAINT / REASON FOR VISIT Philip Patel is a 77 y.o. male who presents for evaluation of Medication Reaction (amolodipine). HISTORY OF PRESENT ILLNESS Patient is here for follow up of chronic conditions. Has urology and nephrology appointments today. He was seen in [place] ED 05/05/23 for edema after resuming amlodipine [...] Take 2 mg by mouth as needed. [facility] [place] Supplies See Instructions, CPAP machine, mask 1 ea x 4 refills, headgear 1 ea x 2 refills, tubing 1 ea x 4 refills, filters 2 ea per month, tub 1 ea x 2 refills, mask seal 1 ea x 2 refills DX G47.33, length of need 99, 1 each, 0 Refill(s) [facility] Head Gear for CPAP Machine See Instructions, fax to patient at [phone], 1 each MULTIVITAMIN ORAL Daily Multiple Vitamins See Instructions, Take 1 tablet by mouth daily. multivitamin-eye (PRESERVISION LUTEIN) 226 mg-90 mg-5 mg-0.8 mg capsule Take 2 capsules by mouth daily. ONETOUCH DELICA LANCETS 33 gauge [facility] OneTouch Ultra Test strips Use to [...] Negative pH 6.5 5.0 - 8.0 Specific [place] 1.012 1.001 - 1.035 Urobilinogen 0.2 0.2 [...] a result he has beenreliant on cane. [employer] parking application completed for permanent permit. 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 #7 Cancer Colon Transverse Personal History Resolved per oncologists >5 years after surgery. Unable to resolve diagnosis since it is linked to [facility] infusion order set. Overview: 03/2018 No evidence of metastatic disease, stable colon, diverticulosis on CT 04/09/2020 ([facility], [facility] records) Repeat colonoscopy fall [address] Sewell (oncology, [place]), follow up Dr. Sewell 6-12 months with [...] iron deficiency. Has been getting darbepoetin at [place] but is interested in getting them at [place] but needs a form for this to [...] the above chronic conditions. Clover Delaney M.D. ITE CARE PROVIDER documented in this encounter Plan of Treatment Upcoming Encounters Date Type Department Care Team (Latest Contact Info) Description 09/08/2023 10:00 AM CDT Appointment Department of Laboratory Medicine in [address] [place] [address] Sera Casiano M.D., Ph.D. [address] [place] [phone] 09/08/2023 10:10 AM CDT Appointment Department of Laboratory Medicine in [address] [place] [phone] Sera Casiano M.D., Ph.D. [address] [place] [phone] 09/08/2023 2:00 PM CDT Virtual Visit Department of Family Medicine, [facility], in [address] [phone] Clover Delaney M.D. [address] [place] [phone] Discharge Disposition: Home or Self Care 09/10/2023 10:45 AM CDT Clinical Communication Virtual Review in [place], [place] [address] [place] [address] 09/10/2023 2:30 PM CDT Ancillary Procedure Department of Cardiovascular Diseases in [address] [phone] Clover Delaney M.D. [address] [place] [phone] Discharge Disposition: Home or Self Care 09/14/2023 9:30 AM CDT Comprehensive Visit Division of Pulmonary Medicine in [place], [place] [address] [place] [phone] Luis Carrion M.B.B.S. [address] [place] [phone] 10/01/2023 9:30 AM CDT Comprehensive Visit Department of Cardiovascular Diseases in [address] [phone] Nikko Dey M.D. [address] [place] [phone] Discharge Disposition: Home or Self Care 10/27/2023 2:25 PM CDT Appointment Department of Cardiovascular Diseases in [place], [place] [address] [place] [address] Clover Delaney M.D. [address] [place] [phone] Discharge Disposition: Home or Self Care Scheduled [...] (HCC) Expected: 11/27/2023 (Approximate), Expires: 05/29/2024 Scheduled Referrals Name Type Priority Associated Diagnoses [...] Neuropathy (HCC) Need Vaccine Immunization Hepatitis B documented in this encounter Additional Health Concerns Assessment Noted Time PHQ-9 Depression Total Score: 4 06/06/19 23 2:04 PM RESPITE CARE PROVIDER documented as of this encounter Care Teams Marksmanship Instructor Relationship Specialty Start Date End Date Clover Delaney M.D. [address] [place] [phone] PCP - General Internal Medicine 11/23/17 documented as of this encounter
--- OUTSIDE RECORDS SUMMARY | 2023-09-06 06:19 | XMS_ITS | Encounter Summary ---
Author Name Unknown Organization [facility] Address [address] [place] [address] Care Team Providers Care Bleach Analyst Name Role Phone Clover Delaney M.D. Primary Care Provider [phone] Reason for Referral * Specialty Diagnoses / Procedures Referred By Yenny hunter Referred To Contact [facility] [address] [place] [phone] [facility] Referral ID Status Reason Start Date Expiration Date Visits Re quested Visits Authorized Scheduling Instructions Patient requested appt on 06/15 while they are here for Opth appt. Schedule with Sandeep SH LINE OPERATOR Reason for Visit * Reason Comments Chronic Kidney Disease Encounter Details Date Type Department Care Team (Late st Contact Info) Description 05/29/2023 3:00 PM SPLASH LINE OPERATOR Education Division of Nephrology and Hypertension in [place], [place] [address] [place] [phone] Mónica Portillo, TRIXIE, C.N.P., M.S. [address] [place] [phone] Sandeep Galicia, R.N. [address] [place] [phone] Chronic Kidney Disease Stage 5 Glomerular Filtration [...] PHQ-2 Score 2 05/28/2023 [facility] of Occupat [...] Sex Assigned at Male 05/13/2021 10:11 AM SPLASH LINE OPERATOR Gender Identity Male 11/02/2017 7:22 PM CDT Sexual Orientation Straight 11/02/2017 7: 22 PM CDT documented as of this encounter Progress Notes * Sandeep Galicia R.N. - 05/29/2023 3:00 PM CST Patient was here today for first education visit on renal replacement therapies with Kidney Decorating Kiln Operator Nurse. We reviewed contents of education folder which included: 0533 Chronic Kidney Disease Treatment Options, 2877 Living Donor Kidney Transplant, 6228-01 Palliative and Supportive Care Service, 2540 Palliative Care for people with serious illness, 1181 Home Dialysis, 1181- 11 Basics of Hemodialysis, 1697 Basics of Peritoneal Dialysis. Contact information for Kidney Decorating Kiln Operator nurse was provided. Patient will be scheduled for follow up with Kidney Decorating Kiln Operator nurse. SH LINE OPERATOR documented in this encounter Plan of Treatment Upcoming Encounters Date Type Department Care Team (Latest Contact Info) Description 09/08/2023 10:00 AM CDT Appointment Department of Laboratory Medicine in [place], [place] [address] [place] [phone] Sera Casiano M.D., Ph.D. [address] [place] [phone] 09/08/2023 10:10 AM CDT Appointment Department of Laboratory Medicine in [place], [place] [address] [place] [address] Sera Casiano M.D., Ph.D. [address] [place] [phone] 09/08/2023 2:00 PM CDT Virtual Visit Department of Family Medicine, [facility], in [address] [phone] Clover Delaney M.D. [address] [place] [phone] Discharge Disposition: Home or Self Care 09/10/2023 10:45 AM CDT Clinical Communication Virtual Review in [place], [place] 200 [place] [address] 09/10/2023 2:30 PM CDT Ancillary Procedure Department of Cardiovascular Diseases in [address] [phone] Clover Delaney M.D. [address] [place] [phone] Discharge Disposition: Home or Self Care 09/14/2023 9:30 AM CDT Comprehensive Visit Division of Pulmonary Medicine in [place], [place] [address] [place] [phone] Luis Carrion M.B.B.S. [address] [place] [phone] 10/01/2023 9:30 AM CDT Comprehensive Visit Department of Cardiovascular Diseases in [place], [place] [address] [place] [phone] Nikko Dey M.D. [address] [place] [phone] Discharge Disposition: Home or Self Care 10/27/2023 2:25 PM CDT Appointment Department of Cardiovascular Diseases in [place], [place] [address] [place] [address] Clover Delaney M.D. [address] [place] [phone] Discharge Disposition: Home or Self Care Scheduled [...] Total Score: 4 06/06/19 23 2:04 PM SPLASH LINE OPERATOR documented as of this encounter Care Teams Bleach Analyst Relationship Specialty Start Date End Date Clover Delaney M.D. [address] [place] [phone] PCP - General Internal Medicine 11/23/17 documented as of this encounter
--- OUTSIDE RECORDS SUMMARY | 2023-09-06 06:19 | XMS_ITS | Encounter Summary ---
Author Name Unknown Organization [facility] Address [address] [place] [address] Care Team Providers Care Senior Devops Engineer Name Role Phone Clover Delaney M.D. Primary Care Provider [phone] Reason for Visit * Reason Comments Med Refill Encounter Details Date Type Department Care Team (Late st Contact Info) Description 06/02/2023 Refill Department of Community Internal Medicine in [address] [place] [phone] Karlene Rodríguez, TRIXIE, C.N.P., D.N.P. [address] [place] [phone] Med Refill Social History Tobacco Use Types [...] Answer Date Recorded PHQ-2 Score 2 05/28/2023 [facility] [place] of Occupat ional Health - Occupational Stress [...] Assigned at Male 05/13/2021 10:11 AM MANAGER OF REGULATORY AFFAIRS Gender Identity Male 11/02/2017 7:22 PM CDT Sexual Orientation Straight 11/02/2017 7: 22 PM CDT documented as of this encounter Miscellaneous Notes * Telephone Encounter - Alanis Rodriguez - 06/03/2023 7:44 AM CST Lab Results Component Value Date HGBA1C 6.8 (H) 03/30/2023 GER OF REGULATORY AFFAIRS documented in this encounter Plan of Treatment Upcoming Encounters Date Type Department Care Team (Latest Contact Info) Description 09/08/2023 10:00 AM CDT Appointment Department of Laboratory Medicine in [place] [address] [place] [address] Sera Casiano M.D., Ph.D. [address] [place] [phone] 09/08/2023 10:10 AM CDT Appointment Department of Laboratory Medicine in [place] [address] [place] [address] Sera Casiano M.D., Ph.D. [address] [place] [phone] 09/08/2023 2:00 PM CDT Virtual Visit Department of Family Medicine, [facility], in [address] [phone] Clover Delaney M.D. [address] [place] [phone] Discharge Disposition: Home or Self Care 09/10/2023 10:45 AM CDT Clinical Communication Virtual Review in [address] [phone] 09/10/2023 2:30 PM CDT Ancillary Procedure Department of Cardiovascular Diseases in [address] [phone] Clover Delaney M.D. [address] [place] [phone] Discharge Disposition: Home or Self Care 09/14/2023 9:30 AM CDT Comprehensive Visit Division of Pulmonary Medicine in [place], [place] [address] [place] [address] Luis Carrion M.B.BJosé LuisS. [address] [place] [phone] 10/01/2023 9:30 AM CDT Comprehensive Visit Department of Cardiovascular Diseases in [address] [phone] Nikko Dey M.D. [address] [place] [phone] Discharge Disposition: Home or Self Care 10/27/2023 2:25 PM CDT Appointment Department of Cardiovascular Diseases in [place], [place] [address] [place] [address] Clover Delaney M.D. [address] [place] [phone] Discharge Disposition: Home or Self Care documented as of this encounter Visit Diagnoses Diagnosis Diabetes Mellitus Type 2 (HCC) documented in this encounter Additional Health Concerns Assessment Noted Time PHQ-9 Depression Total Score: 4 06/06/19 23 2:04 PM MANAGER OF REGULATORY AFFAIRS documented as of this encounter Care Teams Senior Devops Engineer Relationship Specialty Start Date End Date Clover Delaney M.D. [address] [place] [phone] PCP - General Internal Medicine 11/23/17 documented as of this encounter
--- OUTSIDE RECORDS SUMMARY | 2023-09-06 06:19 | XMS_ITS | Encounter Summary ---
Author Name Unknown Organization [facility] Address [address] [place] [address] Care Team Providers Care Clipper Machine Name Role Phone Clover Delaney M.D. Primary Care Provider [phone] Reason for Visit * Reason Comments Incomplete Bladder Emptying * Outpatient (Routine) - Closed Specialty Diagnoses / Procedures Referred By Yenny t Referred To Contact Diagnoses Hypertensive Chronic Kidney Disease With Stage 5 Chronic Kidney Disease Or End Stage Renal Disease, Chronic Kidney Disease Stage 5 (HCC) Proteinuria Procedures URO Uroflow Mónica Portillo APRN, C.N.P., M.S. [address] [place] [phone] [facility] Referral ID Status Reason Start Date Expiration Date Visits Re quested Visits Authorized [id number] Closed 04/07/2023 04/06/2024 1 1 Encounter Details Date Type Department Care Team (Latest Contact Info) Description 05/29/2023 1:00 PM SURVEY MANAGER Procedure visit Department of Urology in [place], [place] [address] [place] [phone] Mónica Portillo APRN, C.N.P., M.S. [address] [place] [phone] Lauren Madden [address] [place] [phone] Incomplete Bladder Emptying (Primary Dx); Hypertension And [...] do you attend chur or [employer]beter[facility] services? Never 07/28/2022 Do you [...] Answer Date Recorded PHQ-2 Score 2 05/28/2023 [facility] of Occupat ional Health - Occupational Stress [...] Sex Assigned at Male 05/13/2021 10:11 AM SURVEY MANAGER Gender Identity Male 11/02/2017 7:22 PM [...] 0 to 10 pain scale post procedure. EY MANAGER documented in this encounter Procedure Notes * [...] ml by ultrasound Impression: Normal variant uroflow. EY MANAGER documented in this encounter Plan of Treatment Upcoming Encounters Date Type Department Care Team (Latest Contact Info) Description 09/08/2023 10:00 AM CDT Appointment Department of Laboratory Medicine in [place], [place] [address] [place] [address] Sera Casiano M.D., Ph.D. [address] [place] [phone] 09/08/2023 10:10 AM CDT Appointment Department of Laboratory Medicine in [place], [place] [address] [place] [phone] Sera Casiano M.D., Ph.D. [address] [place] [phone] 09/08/2023 2:00 PM CDT Virtual Visit Department of Family Medicine, [facility], in [address] [phone] Clover Delaney M.D. [address] [place] [phone] Discharge Disposition: Home or Self Care 09/10/2023 10:45 AM CDT Clinical Communication Virtual Review in [place], [place] [address] [place] [phone] 09/10/2023 2:30 PM CDT Ancillary Procedure Department of Cardiovascular Diseases in [address] [phone] Clover Delaney M.D. [address] [place] [phone] Discharge Disposition: Home or Self Care 09/14/2023 9:30 AM CDT Comprehensive Visit Division of Pulmonary Medicine in [place], [place] [address] [place] [phone] Luis Carrion M.B.B.S. [address] [place] [address] 10/01/2023 9:30 AM CDT Comprehensive Visit Department of Cardiovascular Diseases in [place], [place] [address] [place] [phone] Nikko Dey M.D. [address] [place] [phone] Discharge Disposition: Home or Self Care 10/27/2023 2:25 PM CDT Appointment Department of Cardiovascular Diseases in [place], [place] [address] [place] [address] Clover Delaney M.D. [address] [place] [phone] Discharge Disposition: Home or Self Care documented as of this encounter Procedures Procedure Name Priority Date/Time Associated Diagnosis Comments URO UROFLOW Routine 05/29/2023 1:00 PM SURVEY MANAGER Hypertension And Chronic Kidney Disease Stage 5 (HCC) Proteinuria documented in this encounter Results * URO Uroflow (05/29/2023 1:00 PM SURVEY MANAGER) Narrative Burke Hanna M.D. - 05/29/2023 1:00 PM SURVEY MANAGER Burke Hanna M.D. ? 05/29/2023 ??4:49 PM [...] ml by ultrasound Impression: Normal variant uroflow. Drew Couch APRNN.Allie., M.S. UROL OGY ORDERABLES documented in this encounter Visit Diagnoses Diagnosis Incomplete Bladder Emptying- Primary Hypertensive Chronic Kidney Disease With Stage 5 Chronic Kidney Disease Or End Stage Renal Disease, Chronic Kidney Disease Stage 5 (HCC) Proteinuria documented in this encounter Additional Health Concerns Assessment Noted Time PHQ-9 Depression Total Score: 4 06/06/19 23 2:04 PM SURVEY MANAGER documented as of this encounter Care Teams Clipper Machine Relationship Specialty Start Date End Date Clover Delaney M.D. [address] [place] [phone] PCP - General Internal Medicine 11/23/17 documented as of this encounter
--- OUTSIDE RECORDS SUMMARY | 2023-09-06 06:19 | XMS_ITS | Encounter Summary ---
Author Name Unknown Organization [facility] Address [address] [place] [address] Care Team Providers Care Roulette Dealer Name Role Phone Clover Delaney M.D. Primary Care Provider +1- [phone] Encounter Details Date Type Department Care Team (Late st Contact Info) Description 06/04/2023 Orders Only Division of Gastroenterology in [place], [place] [address] [place] [phone] Evelio Graham M.D. [address] [place] [phone] Genetic Susceptibility To Disease Social History Tobacco [...] Answer Date Recorded PHQ-2 Score 2 05/28/2023 [facility] [place] of Occupat ional Health - Occupational Stress [...] Sex Assigned at Male 05/13/2021 10:11 AM PHOTOENGRAVING APPRENTICE Gender Identity Male 11/02/2017 7:22 PM CDT Sexual Orientation Straight 11/02/2017 7: 22 PM CDT documented as of this encounter Plan of Treatment Upcoming Encounters Date Type Department Care Team (Latest Contact Info) Description 09/08/2023 10:00 AM CDT Appointment Department of Laboratory Medicine in [place], [place] [address] [place] [address] Sera Casiano M.D., Ph.D. [address] [place] [phone] 09/08/2023 10:10 AM CDT Appointment Department of Laboratory Medicine in [place] [address] [place] [address] Sera Casiano M.D., Ph.D. [address] [place] [phone] 09/08/2023 2:00 PM CDT Virtual Visit Department of Family Medicine, [facility], in [address] [phone] Clover Delaney M.D. 701 [place] [phone] Discharge Disposition: Home or Self Care 09/10/2023 10:45 AM CDT Clinical Communication Virtual Review in [place], [place] 200 [place] [address] 09/10/2023 2:30 PM CDT Ancillary Procedure Department of Cardiovascular Diseases in [address] [phone] Clover Delaney M.D. 701 [place] [phone] Discharge Disposition: Home or Self Care 09/14/2023 9:30 AM CDT Comprehensive Visit Division of Pulmonary Medicine in [address] [phone] Luis Carrion M.B.B.S. [address] [place] [phone] 10/01/2023 9:30 AM CDT Comprehensive Visit Department of Cardiovascular Diseases in [place], [place] [address] [place] [phone] Nikko Dey M.D. 701 [place] [phone] Discharge Disposition: Home or Self Care 10/27/2023 2:25 PM CDT Appointment Department of Cardiovascular Diseases in [place], [place] [address] [place] [address] Clover Delaney M.D. [address] [place] [phone] Discharge Disposition: Home or Self Care documented as of this encounter Procedures Procedure Name Priority Date/Time Associated Diagnosis Comments EXT TAPESTRY Routine 05/21/2021 12:00 AM PHOTOENGRAVING APPRENTICE Genetic Susceptibility To Disease documented in this encounter Results * EXT Tapestry (05/21/2021 12:00 AM PHOTOENGRAVING APPRENTICE) Gene Studied BRCA1,BRCA2,MLH1,MSH 2, MSH6,PMS2,EPCAM,APOB,L DLR,LDLRAP1,PCSK9 08/22/2021 [...] enriched using a custom set of reagents (Cista System+ chemistry). Targeted regions were sequenced using an Illumina DNA sequencing system. Your sequence was matched to a modified version of the industry standard reference genome (GRCh38). Variant calling was completed using a customized version of [employer]'s [employer]s software, requiring 20x coverage for validated variant calls. Copy Number Variants (CNVs) were called using a proprietary bioinformatics pipeline that compared the coverage profile of your sample with the coverage profiles of other reference set samples. [facility] [email or web address] then analyzed the generated variant data for the exons and 10 bp of flanking intronic sequence (and select tagged intronic variants) of the 11 genes included in [employer] from the [employer] Database. Your sample was reviewed for single [...] assessments and medical management. 08/22/2021 12:00 AM CDT [facility] Human Reference Sequence Assembly GRCh38 08/22/2021 12:00 AM [facility] Saliva (Mouth) 05/21/2021 Evelio Graham M.D. LAB GENETI C TESTING CARINE [place] [address] [facility], [address] [place] [address], [facility] KEELY [place]WK [address] [facility], [address] [place] [address] documented in this encounter Visit Diagnoses Diagnosis Genetic Susceptibility To Disease documented in this encounter Additional Health Concerns Assessment Noted Time PHQ-9 Depression Total Score: 4 06/06/19 23 2:04 PM PHOTOENGRAVING APPRENTICE documented as of this encounter Care Teams Roulette Dealer Relationship Specialty Start Date End Date Clover Delaney M.D. [address] [place] [phone] PCP - General Internal Medicine 11/23/17 documented as of this encounter
--- OUTSIDE RECORDS SUMMARY | 2023-09-06 06:19 | XMS_ITS | Encounter Summary ---
Author Name Unknown Organization [facility] Address [address] [place] [address] Care Team Providers Care Consulting Analyst Name Role Phone Clover Delaney M.D. Primary Care Provider +1- [phone] Reason for Visit * Reason Comments Eye Exam * Outpatient (Routine) - Closed Specialty Diagnoses / Procedures Referred By Yenny hunter Referred To Contact Ophthalmology [place] Bunch M.D. [address] [place] [address] [facility] Referral ID Status Reason Start Date Expiration Date Visits Re quested Visits Authorized [id number] Closed 03/06/2023 03/05/2026 1 1 Encounter Details Date Type Department Care Team (Latest Contact Info) Description 06/15/2023 2:45 PM TDP DISPLAYS ANALYST Office Visit Department of Ophthalmology in [place], [place] [address] [place] [phone] [place] Bunch M.D. [address] [place] [address] Diabetes Mellitus Type 2 With [...] Answer Date Recorded PHQ-2 Score 2 05/28/2023 [facility] [place] of Occupat ional Health - Occupational Stress [...] Sex Assigned at Male 05/13/2021 10:11 AM TDP DISPLAYS ANALYST Gender Identity Male 11/02/2017 7:22 PM CDT Sexual Orientation Straight 11/02/2017 7: 22 PM CDT documented as of this encounter Progress Notes * [place] Bunch M.D. - 06/15/2023 2:45 PM CST Philip Patel was seen today for PDR/DME # Posterior vitreous detachment, RIGHT eye # hx Endophthalmitis, LEFT eye # hx Total retinal detachment, LEFT eye # Hypotony, LEFT eye -tap/inject (11/10/21 [facility]) after intravitreal injection on 11/05/21 -No growth [...] Plan FU 12-14 weeks with OCT macula DISPLAYS ANALYST documented in this encounter Plan of Treatment Upcoming Encounters Date Type Department Care Team (Latest Contact Info) Description 09/08/2023 10:00 AM CDT Appointment Department of Laboratory Medicine in [address] [place] [address] Sera Casiano M.D., Ph.D. [address] [place] [phone] 09/08/2023 10:10 AM CDT Appointment Department of Laboratory Medicine in [address] [place] [address] Sera Casiano M.D., Ph.D. [address] [place] [phone] 09/08/2023 2:00 PM CDT Virtual Visit Department of Family Medicine, [facility] [place], in [address] [phone] Clover Delaney M.D. [address] [place] [phone] Discharge Disposition: Home or Self Care 09/10/2023 10:45 AM CDT Clinical Communication Virtual Review in [place], [place] 200 [place] [address] 09/10/2023 2:30 PM CDT Ancillary Procedure Department of Cardiovascular Diseases in [address] [phone] Clover Delaney M.D. [address] [place] [phone] Discharge Disposition: Home or Self Care 09/14/2023 9:30 AM CDT Comprehensive Visit Division of Pulmonary Medicine in [place], [place] [address] [place] [phone] Luis Carrion M.B.B.S. [address] [place] [phone] 10/01/2023 9:30 AM CDT Comprehensive Visit Department of Cardiovascular Diseases in [place] [address] [place] [phone] Nikko Dey M.D. 701 [place] [phone] Discharge Disposition: Home or Self Care 10/27/2023 2:25 PM CDT Appointment Department of Cardiovascular Diseases in [place], [place] [address] [place] [address] Clover Delaney M.D. 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 [address] [place] [phone] PCP - General Internal Medicine 11/23/17 documented as of this encounter
--- OUTSIDE RECORDS SUMMARY | 2023-09-06 06:19 | XMS_ITS | Encounter Summary ---
Author Name Unknown Organization [facility] Address [address] [place] [address] Care Team Providers Care Transportation Assistant Name Role Phone Clover Delaney M.D. Primary Care Provider +1- [phone] Reason for Visit * Reason Onset Date Comments Clarification on Aranesp 06/04/2023 Encounter Details Date Type Department Care Team (Latest Contact Info) Description 06/04/2023 Clinical Communication Division of Nephrology and Hypertension in [place], [place] [address] [place] [phone] Sera Casiano M.D., Ph.D. [address] [place] [address] Clarification on [facility] Social History Tobacco Use Types Packs/Day [...] PHQ-2 Score 2 05/28/2023 [facility] Sex Assigned at Male 05/13/2021 10:11 AM LOGISTICS COORDINATOR Gender Identity Male 11/02/2017 7:22 PM CDT Sexual Orientation Straight 11/02/2017 7: 22 PM CDT documented as of this encounter Miscellaneous Notes * Telephone Encounter - Kirstie Ramirez - 06/04/2023 8:18 AM CST Caller is: other: Authorization YES Preferred Communication Method: [phone] Reason for call: Cintia [facility] [place] called regarding the Aranesp order that they receivedfrom Dr. North for Mr. Patel. They need parameters on when to give the medication as well as whether Dr. North wants them to check hemoglobin every time and then give Aranesp if below 10, or just give without doing labs. STICS COORDINATOR documented in this encounter Plan of Treatment Upcoming Encounters Date Type Department Care Team (Latest Contact Info) Description 09/08/2023 10:00 AM CDT Appointment Department of Laboratory Medicine in [place] [address] [place] [address] Sera Casiano M.D., Ph.D. [address] [place] [phone] 09/08/2023 10:10 AM CDT Appointment Department of Laboratory Medicine in [place] [address] [place] [address] Sera Casiano M.D., Ph.D. [address] [place] [phone] 09/08/2023 2:00 PM CDT Virtual Visit Department of Family Medicine, [facility], in [address] [phone] Clover Delaney M.D. [address] [place] [phone] Discharge Disposition: Home or Self Care 09/10/2023 10:45 AM CDT Clinical Communication Virtual Review in [place], [place] 200 [place] [address] 09/10/2023 2:30 PM CDT Ancillary Procedure Department of Cardiovascular Diseases in [address] [phone] Clover Delaney M.D. [address] [place] [phone] Discharge Disposition: Home or Self Care 09/14/2023 9:30 AM CDT Comprehensive Visit Division of Pulmonary Medicine in [address] [phone] Luis Carrion M.B.B.SJosé Luis [address] [place] [phone] 10/01/2023 9:30 AM CDT Comprehensive Visit Department of Cardiovascular Diseases in [address] [phone] Nikko Dey M.D. [address] [place] [phone] Discharge Disposition: Home or Self Care 10/27/2023 2:25 PM CDT Appointment Department of Cardiovascular Diseases in [place], [place] [address] [place] [phone] Clover Delaney M.D. [address] [place] [phone] Discharge Disposition: Home or Self Care documented as of this encounter Visit Diagnoses Not on filedocumented in this encounter Additional Health Concerns Assessment Noted Time PHQ-9 Depression Total Score: 4 06/06/19 23 2:04 PM LOGISTICS COORDINATOR documented as of this encounter Care Teams Transportation Assistant Relationship Specialty Start Date End Date Clover Delaney M.D. [address] [place] [phone] PCP - General Internal Medicine 11/23/17 documented as of this encounter
--- OUTSIDE RECORDS SUMMARY | 2023-09-06 06:19 | XMS_ITS | Encounter Summary ---
Author Name Unknown Organization [facility] Address [address] [place] [address] Care Team Providers Care County Or City Auditor Name Role Phone Clover Delaney M.D. Primary Care Provider +1- [phone] Reason for Referral * Outpatient (Routine) - Closed Specialty Diagnoses / Procedures Referred By Yenny hunter Referred To Contact Diagnoses Hypertensive Chronic Kidney Disease With Stage 5 Chronic Kidney Disease Or End Stage Renal Disease, Chronic Kidney Disease Stage 5 (HCC) Proteinuria Procedures US Kidneys Bilateral with Bladder Mónica Portillo APRN, C.N.P., M.S. [address] [place] [phone] [facility] Referral ID Status Reason Start Date Expiration Date Visits Re quested Visits Authorized [id number] Closed 04/07/2023 04/06/2024 1 1 RIOR DESIGN PROFESSIONAL Reason for Visit * Outpatient (Routine) - Closed Specialty Diagnoses / Procedures Referred By Yenny hunter Referred To Contact Diagnoses Hypertensive Chronic Kidney Disease With Stage 5 Chronic Kidney Disease Or End Stage Renal Disease, Chronic Kidney Disease Stage 5 (HCC) Proteinuria Procedures US Kidneys Bilateral with Bladder Mónica Portillo APRN, C.N.P., M.S. [address] [place] [phone] [facility] Referral ID Status Reason Start Date Expiration Date Visits Re quested Visits Authorized [id number] Closed 04/07/2023 04/06/2024 1 1 Encounter Details Date Type Department Care Team (Latest Contact Info) Description 05/29/2023 9:24 AM INTERIOR DESIGN PROFESSIONAL - 05/29/2023 11:59 PM INTERIOR DESIGN PROFESSIONAL Hospital Encounter Department of Radiology, [facility], in [place], [place] [address] [place] [address] Mónica Portillo, TRIXIE, C.N.P., M.S. [address] [place] [address] Hypertension And Chronic Kidney Disease Stage 5 [...] week 07/28/2022 How often do you attend [facility] or christianity services? Never 07/28/2022 Do you belong to any clubs o r organizations such as gnosticist groups, unions, fraternal or athletic groups, or [...] Sex Assigned at Male 05/13/2021 10:11 AM INTERIOR DESIGN PROFESSIONAL Gender Identity Male 11/02/2017 7:22 PM [...] by mouth as needed. miscellaneous medical [facility] [...] each, 0 Refill(s) 10/20/2016 miscellaneous medical supply [facility] Head Gear for CPAP Machine See Instructions, fax to patient at [phone], 1 each 01/17/2014 MULTIVITAMIN ORAL Daily Multiple Vitamins See Instructions, Take 1 tablet by mouth daily. 07/23/2013 ONETOUCH DELICA LANCETS 33 gauge misc 3 08/02/2018 prednisoLONE acetate (PRED FORTE) 1 [...] CDT Appointment Department of Laboratory Medicine [place] [address] [place] [address] Sera Casiano M.D., Ph.D. [address] [place] [address] 09/08/2023 10:10 AM CDT Appointment Department of Laboratory Medicine in [address] [place] [phone] Sera Casiano M.D., Ph.D. [address] [place] [phone] 09/08/2023 2:00 PM CDT Virtual Visit Department of Family Medicine, [facility], in [address] [phone] Clover Delaney M.D. [address] [place] [phone] Discharge Disposition: Home or Self Care 09/10/2023 10:45 AM CDT Clinical Communication Virtual Review in [place], [place] 200 [place] [address] 09/10/2023 2:30 PM CDT Ancillary Procedure Department of Cardiovascular Diseases in [address] [phone] Clover Dealney M.D. [address] [place] [phone] Discharge Disposition: Home or Self Care 09/14/2023 9:30 AM CDT Comprehensive Visit Division of Pulmonary Medicine in [place], [place] [address] [place] [phone] Luis Carrion M.B.B.S. [address] [place] [phone] 10/01/2023 9:30 AM CDT Comprehensive Visit Department of Cardiovascular Diseases in [address] [phone] Nikko Dey M.D. 701 [place] [phone] Discharge Disposition: Home or Self Care 10/27/2023 2:25 PM CDT Appointment Department of Cardiovascular Diseases in [place], [place] [address] [place] [address] Clover Delaney M.D. 701 [place] [phone] Discharge Disposition: Home or Self Care documented as of this encounter Procedures Procedure Name Priority Date/Time Associated Diagnosis Comments US KIDNEYS BILATERAL WITH BLADDER RAD - Routine (most inpatients and all outpatients) 05/29/2023 10:33 AM INTERIOR DESIGN PROFESSIONAL Hypertension And Chronic Kidney Disease Stage 5 (HCC) Proteinuria documented in this encounter Results * US Kidneys Bilateral with Bladder (05/29/2023 10:33 AM INTERIOR DESIGN PROFESSIONAL) Anatomical Region Laterality Modality Abdomen, Renal, Ultrasound R ST LOS, Ultrasound ARZ LOS, Ultrasound FLA LOS Bilateral Ultrasound Impressions 05/29/2023 11:37 AM INTERIOR DESIGN PROFESSIONAL 1. Slightly thinned and hyperechoic appearance of [...] CT or MR. Narrative 05/29/2023 11:37 AM INTERIOR DESIGN PROFESSIONAL EXAM: US KIDNEYS BILATERAL WITH BLADDER COMPARISON: [...] Portillo APRN, C.N.P., M.S. IMG US PROCEDURES documented in this encounter Visit Diagnoses Diagnosis Hypertensive Chronic Kidney Disease With Stage 5 Chronic Kidney Disease Or End Stage Renal Disease, Chronic Kidney Disease Stage 5 (HCC) Proteinuria documented in this encounter Additional Health Concerns Assessment Noted Time PHQ-9 Depression Total Score: 4 06/06/19 23 2:04 PM INTERIOR DESIGN PROFESSIONAL documented as of this encounter Care Teams County Or City Auditor Relationship Specialty Start Date End Date Clover Delaney M.D. [address] [place] [phone] PCP - General Internal Medicine 11/23/17 documented as of this encounter
--- OUTSIDE RECORDS SUMMARY | 2023-09-06 06:19 | XMS_ITS | Encounter Summary ---
Author Name Unknown Organization [facility] Address [address] [place] [address] Care Team Providers Care Radio Station Audio Engineer Name Role Phone Clover Delaney M.D. Primary Care Provider [phone]- [phone] Encounter Details Date Type Department Care Team (Late st Contact Info) Description 06/05/2023 Orders Only Department of Community Internal Medicine in [place], [place] [address] [place] [address] [place] [phone] Clover Delaney M.D. [address] [place] [address] Social History Tobacco Use Types [...] Answer Date Recorded PHQ-2 Score 2 05/28/2023 [facility] [place] of Occupat ional Health - Occupational Stress [...] Assigned at Male 05/13/2021 10:11 AM ASSISTANT FITNESS MANAGER Gender Identity Male 11/02/2017 7:22 PM CDT Sexual Orientation Straight 11/02/2017 7: 22 PM CDT documented as of this encounter Plan of Treatment Upcoming Encounters Date Type Department Care Team (Latest Contact Info) Description 09/08/2023 10:00 AM CDT Appointment Department of Laboratory Medicine in [place] [address] [place] [address] Sera Casiano M.D., Ph.D. [address] [place] [phone] 09/08/2023 10:10 AM CDT Appointment Department of Laboratory Medicine in [place], [place] [address] [place] [address] Sera Casiano M.D., Ph.D. [address] [place] [phone] 09/08/2023 2:00 PM CDT Virtual Visit Department of Family Medicine, [facility], in [address] [phone] Clover Delaney M.D. [address] [place] [phone] Discharge Disposition: Home or Self Care 09/10/2023 10:45 AM CDT Clinical Communication Virtual Review in [place], [place] 200 [place] [address] 09/10/2023 2:30 PM CDT Ancillary Procedure Department of Cardiovascular Diseases in [address] [phone] Clover Delaney M.D. [address] [place] [phone] Discharge Disposition: Home or Self Care 09/14/2023 9:30 AM CDT Comprehensive Visit Division of Pulmonary Medicine in [place], [place] [address] [place] [phone] Luis Carrion M.B.B.S. [address] [place] [address] 10/01/2023 9:30 AM CDT Comprehensive Visit Department of Cardiovascular Diseases in [place], [place] 701 [place] [phone] Nikko Dey M.D. 701 [place] [phone] Discharge Disposition: Home or Self Care 10/27/2023 2:25 PM CDT Appointment Department of Cardiovascular Diseases in [place], [place] [address] [place] [address] Clover Delaney M.D. [address] [place] [phone] Discharge Disposition: Home or Self Care documented as of this encounter Visit Diagnoses Not on filedocumented in this encounter Additional Health Concerns Assessment Noted Time PHQ-9 Depression Total Score: 4 06/06/19 23 2:04 PM ASSISTANT FITNESS MANAGER documented as of this encounter Care Teams Radio Station Audio Engineer Relationship Specialty Start Date End Date Clover Delaney M.D. [address] [place] [phone] PCP - General Internal Medicine 11/23/17 documented as of this encounter
--- OUTSIDE RECORDS SUMMARY | 2023-09-06 06:19 | XMS_ITS | Encounter Summary ---
Author Name Unknown Organization [facility] Address [address] [place] [address] Care Team Providers Care Feed Inspection Supervisor Name Role Phone Cloevr Delaney M.D. 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 [address] [place] [phone] [facility] Referral ID Status Reason Start Date Expiration Date Visits Re quested Visits Authorized [id number] Closed 06/01/2023 05/31/2024 1 1 IGURATOR * Outpatient (Routine) - Closed Specialty Diagnoses / Procedures Referred By Contac t Referred To Contact Endocrinology Diagnoses Hypertensive Chronic Kidney Disease With Stage 5 Chronic Kidney Disease Or End Stage Renal Disease, Chronic Kidney Disease Stage 5 (HCC) Proteinuria Sera Casiano M.D., Ph.D. [address] [place] [phone] [facility] Referral ID Status Reason Start Date Expiration Date Visits Re quested Visits Authorized [id number] Closed 05/29/2023 11/27/2024 1 1 IGURATOR Reason for Visit * Outpatient (Routine) - Closed Specialty Diagnoses / Procedures Referred By Yenny t Referred To Contact Nephrology and Hypertension Diagnoses Hypertensive Chronic Kidney Disease With Stage 5 Chronic Kidney Disease Or End Stage Renal Disease, Chronic Kidney Disease Stage 5 (HCC) Proteinuria Mónica Portillo, TRIXIE, C.N.P., M.S. [address] [place] [phone] [facility] Referral ID Status Reason Start Date Expiration Date V isits Requested Visits Authorized [id number] Closed Specialty Services Required 04/07/2023 04/06/2024 1 1 Encounter Details Date Type Department Care Team (Latest Contact Info) Description 05/29/2023 4:00 PM CONFIGURATOR Comprehensive Visit Division of Nephrology and Hypertension in [place], [place] [address] [place] [phone] Sera Casiano M.D., Ph.D. [address] [place] [phone] 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 [...] Sex Assigned at Male 05/13/2021 10:11 AM CONFIGURATOR Gender Identity Male 11/02/2017 7:22 PM CDT Sexual Orientation Straight 11/02/2017 7: 22 PM CDT documented as of this encounter Last Filed Vital Signs Vital Sign Reading Time Taken Comments Blood Pressure 225/83 05/29/2023 3:56 PM CONFIGURATOR Pulse 69 05/29/2023 3:56 PM CONFIGURATOR Temperature - - Respiratory Rate - - [...] intervention. His monitored by Dr. Sewell in [facility]. She has type 2 diabetes complicated with [...] be helpful as likely it will not private branch exchange operator. He wonders if he should continue on [...] requesting this therapy to be given at [facility]. I have faxed order for Aranesp to [facility] to be given 100 mcg per month. There is no acute indication of initiation of dialysis during this visit. We will continue to closely monitor. He requires close monitoring that we are planning to do at [facility]. Jessica Hyman M.D., Ph.D. IGURATOR documented in this encounter Plan of Treatment Upcoming Encounters Date Type Department Care Team (Latest Contact Info) Description 09/08/2023 10:00 AM CDT Appointment Department of Laboratory Medicine in [place] [address] [place] [phone] Sera Casiano M.D., Ph.D. [address] [place] [phone] 09/08/2023 10:10 AM CDT Appointment Department of Laboratory Medicine in [place] [address] [place] [phone] Sera Casiano M.D., Ph.D. [address] [place] [phone] 09/08/2023 2:00 PM CDT Virtual Visit Department of Family Medicine, [facility] [place] [facility], in [address] [phone] Clover Delaney M.D. [address] [place] [phone] Discharge Disposition: Home or Self Care 09/10/2023 10:45 AM CDT Clinical Communication Virtual Review in [place], [place] 200 [place] [address] 09/10/2023 2:30 PM CDT Ancillary Procedure Department of Cardiovascular Diseases in [address] [phone] Clover Delaney M.D. [address] [place] [phone] Discharge Disposition: Home or Self Care 09/14/2023 9:30 AM CDT Comprehensive Visit Division of Pulmonary Medicine in [place], [place] [address] [place] [phone] Luis Carrion M.B.B.S. [address] [place] [phone] 10/01/2023 9:30 AM CDT Comprehensive Visit Department of Cardiovascular Diseases in [place], [place] [address] [place] [phone] Nikko Dey M.D. [address] [place] [phone] Discharge Disposition: Home or Self Care 10/27/2023 2:25 PM CDT Appointment Department of Cardiovascular Diseases in [place], [place] [address] [place] [phone] Clover Delaney M.D. [address] [place] [phone] Discharge Disposition: Home or Self Care Scheduled [...] Comment: Biotin has been identified by the buck presser as a potential interfering substance. Higher concentrations [...] LAB BL OOD ADD-ON Performing Organization Address City/[facility] Co de Phone Number [facility] [address] [place] [address], [facility] in [address] [phone] * (ABNORMAL) Iron and Total Iron-Binding Capacity [...] Hyman M.D., Ph.D. LAB BL OOD ADD-ON [facility] [address] [place] [address], [facility] in [address] [phone] * (ABNORMAL) CBC with Differential, Blood (07/06/2023 [...] Hyman M.D., Ph.D. LAB BL OOD ADD-ON [facility] [address] [place] [address], [facility] [place] [address] * (ABNORMAL) Uric Acid (07/06/2023 9:22 AM CDT) Uric Acid, P 10.4(H) 3.7 - 8.0 mg/dL 07/06/2023 12:35 PM CDT [facility] Blood (Blood, Venous) 07/06/2023 9:22 AM CDT 07/06/2023 11:51 AM CDT Sera Hyman M.D., Ph.D. LAB BL OOD ADD-ON Performing Organization Address [facility]/ZIP Co de Phone Number [facility] [address] [place] [address], [facility] [place] [address] * (ABNORMAL) Albumin, Random, Urine (07/06/2023 9:22 AM CDT) Microalbumin 2309.6 mg/L 07/06/2023 1:30 PM CDT [facility] Creatinine 69 mg/dL 07/06/2023 12:51 PM CDT [facility] Albumin/Creatinin e Ratio 3347(H) <17 mg/g 07/06/2023 1:30 PM CDT [facility] Urine (Urine, Voided) 07/06/2023 9:22 AM CDT 07/06/2023 11:59 AM CDT Sera Hyman M.D., Ph.D. LAB UR INE ORDERABLES Performing Organization Address City/[facility]/ZIP Co de Phone Number [facility] [address] [place] [address], [facility] in [place] [address] [place] [address] * (ABNORMAL) Protein/Creatinine Ratio, Random, Urine (07/06/2023 [...] Hyman M.D., Ph.D. LAB UR INE ORDERABLES [facility] [address] [place] [address], [facility] in [place] [address] [place] [address] * (ABNORMAL) Urinalysis, with Microscopic: Urine, Midstream [...] 8.0 07/06/2023 12:06 PM CDT [facility] Specific [place] 1.013 1.001 - 1.035 07/06/2023 12:06 PM [...] Hyman M.D., Ph.D. LAB UR INE ORDERABLES [facility] [address] [place] [address], [facility] in [place] [address] [place] [phone] * (ABNORMAL) Cystatin C with Estimated GFR [...] Hyman M.D., Ph.D. LAB BL OOD ADD-ON [facility] [address] [place] [address], [facility] [address] [place] [address] * (ABNORMAL) Renal Function Panel (07/06/2023 9:22 [...] Hyman M.D., Ph.D. 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 [address] [place] [address] [place] [phone] PCP - General Internal Medicine 11/23/17 documented as of this encounter
--- OUTSIDE RECORDS SUMMARY | 2023-09-06 06:20 | XMS_ITS | Encounter Summary ---
Author Name Unknown Organization [facility] Address [address] [place] [address] Care Team Providers Care Kindergarten Aide Name Role Phone Clover Delaney M.D. Primary Care Provider [phone] Encounter Details Date Type Department Care Team (Latest Contact Info) Description 05/28/2023 10:02 AM APPRENTICE LINEMAN THIRD STEP - 05/28/2023 11:59 PM [facility] Encounter Department of Laboratory Medicine in [address] [place] [phone] Mónica Portillo, TRIXIE, C.N.P., M.S. [address] [place] [phone] Hypertension And Chronic Kidney Disease Stage 5 [...] Score 2 05/28/2023 [facility] [place] of Occupat ional Health - Occupational Stress [...] Sex Assigned at Male 05/13/2021 10:11 AM APPRENTICE LINEMAN THIRD STEP Gender Identity Male 11/02/2017 7:22 PM CDT [...] by mouth as needed. miscellaneous medical supply [facility] CPAP Supplies See Instructions, CPAP machine, mask 1 ea x 4 refills, headgear 1 ea x 2 refills, tubing 1 ea x 4 refills, filters 2 ea per month, tub 1 ea x 2 refills, mask seal 1 ea x 2 refills DX G47.33, length of need 99, 1 each, 0 Refill(s) 10/20/2016 miscellaneous medical supply [facility] Head Gear for CPAP Machine See Instructions, fax to patient at [phone], 1 each 01/17/2014 MULTIVITAMIN ORAL Daily Multiple Vitamins See Instructions, Take 1 tablet by mouth daily. 07/23/2013 SHRADDHA BOONE LANCETS 33 gauge [facility] 3 08/02/2018 prednisoLONE acetate (PRED FORTE) 1 [...] mouth daily. 90 tablet 3 03/30/2023 05/29/2023 carvediloL (COREG) 12.5 mg tablet TAKE ONE [...] CDT Appointment Department of Laboratory Medicine in [place] [address] [place] [address] Sera Casaino M.D., Ph.D. 200 [place] [phone] 09/08/2023 10:10 AM CDT Appointment Department of Laboratory Medicine in [place] [address] [place] [phone] Sera Casiano M.D., Ph.D. [address] [place] [phone] 09/08/2023 2:00 PM CDT Virtual Visit Department of Family Medicine, [facility], in [address] [phone] Clover Delaney M.D. [address] [place] [phone] Discharge Disposition: Home or Self Care 09/10/2023 10:45 AM CDT Clinical Communication Virtual Review in [place], [place] 200 [place] [address] 09/10/2023 2:30 PM CDT Ancillary Procedure Department of Cardiovascular Diseases in [address] [phone] Clover Delaney M.D. [address] [place] [phone] Discharge Disposition: Home or Self Care 09/14/2023 9:30 AM CDT Comprehensive Visit Division of Pulmonary Medicine in [place], [place] [address] [place] [phone] Luis Carrion M.B.B.S. [address] [place] [phone] 10/01/2023 9:30 AM CDT Comprehensive Visit Department of Cardiovascular Diseases in [address] [phone] Nikko Dey M.D. [address] [place] [phone] Discharge Disposition: Home or Self Care 10/27/2023 2:25 PM CDT Appointment Department of Cardiovascular Diseases in [place], [place] [address] [place] [phone] Clover Dealney M.D. [address] [place] [phone] Discharge Disposition: Home or Self Care documented as of this encounter Procedures Procedure Name Priority Date/Time Associated Diagnosis Comments URINALYSIS WITH MICROSCOPIC Routine 05/28/2023 10:13 AM APPRENTICE LINEMAN THIRD STEP Hypertension And Chronic Kidney Disease Stage 5 (HCC) Proteinuria documented in this encounter Results * (ABNORMAL) Urinalysis with Microscopic: Urine, Midstream (05/28/2023 10:13 AM APPRENTICE LINEMAN THIRD STEP) Source Urine, Urine, Midstream 05/28/2023 11:59 AM APPRENTICE LINEMAN THIRD STEP [facility] Clarity Clear Clear 05/28/2023 11:59 AM APPRENTICE LINEMAN THIRD STEP [facility] Color Yellow 05/28/2023 11:59 AM APPRENTICE LINEMAN THIRD STEP [facility] Comment: ----REFERENCE VALUE---- Colorless Yellow Susana Blood Trace(A) Negative 05/28/2023 11:59 AM APPRENTICE LINEMAN THIRD STEP [facility] Nitrite Negative Negative 05/28/2023 11:59 AM APPRENTICE LINEMAN THIRD STEP [facility] Leukocyte Esterase Negative Negative 05/28/2023 11:59 AM APPRENTICE LINEMAN THIRD STEP [facility] Protein >=300(A) mg/dL 05/28/2023 11:59 AM APPRENTICE LINEMAN THIRD STEP [facility] Comment: ----REFERENCE VALUE---- Negative Trace Glucose Negative Negative mg/dL 05/28/2023 11:59 AM APPRENTICE LINEMAN THIRD STEP [facility] Ketone Negative Negative mg/dL 05/28/2023 11:59 AM APPRENTICE LINEMAN THIRD STEP [facility] Bilirubin Negative Negative 05/28/2023 11:59 AM APPRENTICE LINEMAN THIRD STEP [facility] pH 6.5 5.0 - 8.0 05/28/2023 11:59 AM APPRENTICE LINEMAN THIRD STEP [facility] Specific [place] 1.012 1.001 - 1.035 05/28/2023 11:59 AM APPRENTICE LINEMAN THIRD STEP [facility] Urobilinogen 0.2 0.2 - 1.0 mg/dL 05/28/2023 11:59 AM APPRENTICE LINEMAN THIRD STEP [facility] White Blood Cells None Seen /hpf 05/28/2023 12:13 PM APPRENTICE LINEMAN THIRD STEP [facility] Comment: ----REFERENCE VALUE---- Males: 0-3 Females: 0-10 Unknown: 0-10 Red Blood Cells 3-10(A) 0 - 2 /hpf 12:13 PM APPRENTICE LINEMAN THIRD STEP [facility] Dysmorphic Red Blood Cells <=25 <=25 % 05/28/2023 12:13 PM APPRENTICE LINEMAN THIRD STEP [facility] Hyaline Casts 1-3 /lpf 05/28/2023 12:13 PM APPRENTICE LINEMAN THIRD STEP [facility] Urine (Urine, Midstream) 05/28/2023 10:13 AM APPRENTICE LINEMAN THIRD STEP 05/28/2023 11:30 AM APPRENTICE LINEMAN THIRD STEP Mónica Portillo APRN, C.N.P., M.S. LAB URINE ORDERABLES [facility] [address] [address], [facility] [place] [address] [place] [phone] documented in this encounter Visit Diagnoses Diagnosis Hypertensive Chronic Kidney Disease With Stage 5 Chronic Kidney Disease Or End Stage Renal Disease, Chronic Kidney Disease Stage 5 (HCC) Proteinuria documented in this encounter Additional Health Concerns Assessment Noted Time PHQ-9 Depression Total Score: 4 06/06/19 23 2:04 PM APPRENTICE LINEMAN THIRD STEP documented as of this encounter Care Teams Kindergarten Aide Relationship Specialty Start Date End Date Clover Delaney M.D. [address] [facility] [place] [phone] PCP - General Internal Medicine 11/23/17 documented as of this encounter
--- OUTSIDE RECORDS SUMMARY | 2023-09-06 06:20 | XMS_ITS ---
Author Name Unknown Organization [facility] Address [address] [place] [address] Care Team Providers Care Financial Assistant Name Role Phone Clover Delaney M.D. Primary Care Provider [phone] Status:Identified (Enrolling) Start date:04/01/2023 Continued Care and Services Coordination
== END 2023-09-05 18:34 | disposition home or self-care (01) ==
LOC: AMB 09-06 06:11
PROVIDERS: PCP Pediatrics; Visit Provider Family Medicine
DX: R53.1 Weakness (principal)
CPT/HCPCS: A0998

== ENCOUNTER 2023-09-09 15:17 | Inpatient (IN) | payer MEDICARE, SELFPAY ==
[2023-09-09] VITALS (10 sets, daily range): BP systolic 158–195; BP diastolic 72–103; PULSE 59–81; RESP 16–18; TEMP 36.2–36.8; O2SAT 96–99; BMI 45.2; BMI 44.0
--- NOTE | 2023-09-09 16:36 | ED.GENADULT ---
HPI - General Adult General Date Seen: 09/09/23 Chief complaint: Unspecified Complaint, Adult Stated complaint: Low hemoglobin Time Seen by Provider: 09/09/23 16:35 History of Present Illness HPI narrative: This is a 77-year-old gentleman who sent to the ER today from the infusion center because of low hemoglobin. He is on Eliquis. He presented to the outpatient infusion center here at [facility] today for an Aranesp injection. Hemoglobin came back at 6.7. He had reported recently darker stools but no visual blood. He has been weak lately and largely using his wheelchair. He has had 2 recent falls or his son to his knees due to weakness. His workers compensation claims specialist is at [facility], [address]. [address] [phone]. Nephrology recommended he receive Aranesp and then be sent to the ER for transfusion. He has a past medical history including chronic renal failure, atrial fibrillation (diagnosed last month and was started on on Eliquis) hypertension (difficult to control, multiple recent medication adjustments over the past couple of months. Apparently had been on a beta-luis antonio which cause significant bradycardia so that dose was cut by half a couple of weeks ago), Corona's, and history of colon cancer diagnosed by colonoscopy in 2018( He underwent a laparoscopic partial colectomy. He has had a surveillance CT scans following up since then with no recurrence of cancer. Had a colonoscopy last March that showed no cancer), also. 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 He also has he has. He has chronic kidney disease with creatinine baseline around 4. He is not currently on dialysis. He follows with [facility] and sees them at the clinic in some [facility] and sometimes here in [place]. Per medical record review most recent visit to the ER was 08/15. He had presented for dizziness. He had recently started a new blood pressure medication and increased the dose. He was bradycardic with pulse in the 40s. EKG showed a new diagnosis of atrial fibrillation. He was started on Eliquis for stroke prophylaxis because chads Vasc score was 4. Troponin was positive at 0.14, trended in the ER and not rising. Creatinine was 4.8. Elevated troponin was likely thought to be due to renal failure. CBC showed a white count of 11.5, hemoglobin 8.9, platelet 156. BMP showed sodium 133, potassium 4.1, chloride 100, bicarb 27, BUN 81, creatinine 4.8, glucose 375, And terminal proBNP was 65059 In review recent labs here at [place] hemoglobin was ranging 8.0 up to 10.1 over the past couple of years. Most recently whom open is 8.9 on 08/15, 8.3 on 08/12, 8.0 on 06/08, and 8.9 on 05/05/2023. He reports that he does have chronic weakness. 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 He has been more unsteady over the past couple of weeks and attributes it to his blood pressure medication adjustments. However in that setting he has actually been more unsteady than baseline this week. He has had 2 ground level near falls and required lift assist from EMS last weekend. He has a bruise on his right cervantes from 1 of the falls but no other pain or Injuries. He also notes that he has had very dark stools, but not ?black? for the past few days or perhaps week or so. No visible blood in his stool. No abdominal pain. No nausea or vomiting. No fever. No chest pain. No palpitations. No cough. His recent EKGs done at the [facility] actually showed sinus rhythm, not AFib. Related Data Home Medications Medication Instructions Recorded Confirmed aspirin 81 mg tablet,delayed 81 mg PO QDAY 04/14/22 08/16/23 release blood sugar diagnostic (OneTouch #10 ea 04/14/22 08/05/23 Ultra Test strips) carvedilol 12.5 mg tablet 12.5 mg PO DAILY 04/14/22 08/16/23 cholecalciferol (vitamin D3) 50 50 mcg PO QDAY 04/14/22 08/05/23 mcg (2,000 unit) capsule insulin glargine 100 unit/mL (3 16 unit subcut QHS 04/14/22 08/16/23 mL) subcutaneous pen (Lantus Solostar U-100 Insulin) mecobalamin (vitamin B12) 1,000 1,000 mcg PO QDAY 04/14/22 08/16/23 mcg chewable tablet multivitamin 1 tab PO QAM 04/14/22 08/16/23 pen needle, diabetic 31 gauge x #50 ea 12/19/22 04/10/24 1/4 (UltiCare Pen Needle) pen needle, diabetic 32 gauge x #50 ea 04/14/22 08/05/23 (BD Ultra-Fine Josefina Pen Needle) prednisolone acetate 1 % eye 2 drp ophthalmic (eye) DAILY 04/14/22 08/05/23 drops,suspension prednisone 5 mg tablet 5 mg PO QDAY 04/14/22 08/16/23 torsemide 10 mg tablet 30 mg PO QDAY 04/14/22 08/16/23 vit C 250 mg-vit E 200 unit-zinc 1 tab PO DAILY 04/14/22 08/16/23 12.5 mg-copper 1 ad-[id number]-[id number] tablet (ICaps AREDS2 (copper citrate)) irbesartan 75 mg tablet (Avapro) 75 mg PO DAILY 09/10/22 08/16/23 doxazosin 2 mg tablet 2 mg PO QDAY 04/13/23 08/05/23 sevelamer HCl 800 mg tablet 800 mg PO TID 04/13/23 08/16/23 sodium bicarbonate 650 mg tablet 650 mg PO BID 04/13/23 08/16/23 clonidine HCl 0.1 mg tablet 0.05 mg PO BID 08/05/23 08/16/23 tirzepatide 5 mg/0.5 mL 5 mg subcut QWEEK 08/05/23 08/16/23 subcutaneous pen injector (Cali) atorvastatin 40 mg tablet 40 mg PO DAILY 08/16/23 08/16/23 clonidine HCl 0.2 mg tablet 0.2 mg PO BID 08/16/23 08/16/23 doxazosin 4 mg tablet 4 mg PO DAILY 08/16/23 08/16/23 fluoxetine 10 mg capsule 10 mg PO DAILY 08/16/23 08/16/23 Previous Rx's Medication Instructions Recorded apixaban 2.5 mg tablet (Eliquis) 2.5 mg PO BID #60 tabs 08/16/23 Allergies Allergy/AdvReac Type Severity Reaction Status Date / Time epinephrine Allergy Intermediate Hypertensio Verified 08/16/23 13:14 n Penicillins Allergy Verified 08/16/23 13:14 PFSH PFSH Social History Smoking Status: Former smoker Do you use any of these nicotine containing products: None How often do you have a drink containing alcohol: monthly or less How often do you have six or more drinks on one occasion: Never AUDIT-C Alcohol total score: 1 Non-prescribed substance use: denies use service: No Exam Narrative: Exam Narrative: Constitutional: Appears well-developed and well-nourished. Alert. Conversant. Looks pale, but no mottling or diaphoresis. Overall, non toxic. HENT: Head: Atraumatic. Nose: Nose normal. Mouth/Throat: Oral mucosa is clear and moist. no trismus. Pharynx normal. Tonsils symmetric. No tonsillar enlargement, erythema, or exudate. Eyes: Conjunctivae pale. EOM normal. Pupils equal, round, and reactive to light. No scleral icterus. Neck: Normal range of motion. Neck supple. No tracheal deviation present. Cardiovascular: Normal rate, regular rhythm. No gallop. No friction rub. No murmur heard. Symmetric radial artery pulses Pulmonary/Chest: Effort normal. No stridor. No respiratory distress. No wheezes. No rales. No rhonchi . No tenderness. Abdominal: Soft. Bowel sounds normal. No distension. No mass. No tenderness. No rebound. No guarding. Rectal: Normal rectal tone. No masses. Small amount of brown stool in the rectum. Sent for Hemoccult. Turned out to be Hemoccult negative Musculoskeletal: RUE: Normal range of motion. No tenderness. No deformity LUE: Normal range of motion. No tenderness. No deformity RLE: Normal range of motion. No edema. No tenderness. No deformity LLE: Normal range of motion. No edema. No tenderness. No deformity Neurological: Alert and oriented to person, place, and time. Normal strength. CN II-VII intact. No sensory deficit. GCS eye subscore is 4. GCS verbal subscore is 5. GCS motor subscore is 6. Normal coordination Skin: Multiple areas of subacute ecchymosis including both lateral rib cage, both buttocks, right anterior cervantes, left hip. Skin is warm and dry. No rash noted. No pallor. Normal capillary refill. Psychiatric: Normal mood. Normal affect. Const: Vital Signs, click to edit/add: Vital Signs - 24 hr 09/09/23 15:33 09/09/23 18:57 09/09/23 19:19 Temperature 97.9 F 97.9 F 97.2 F L Pulse Rate 73 81 Pulse Rate [Pulse Oximeter] 75 Respiratory Rate 18 18 18 Blood Pressure 195/72 H 173/103 H Blood Pressure [Ri ght Upper Arm] 158/89 H Pulse Oximetry 96 96 96 Oxygen Delivery Me thod Room Air Course Vital Signs Vital signs: Initial Vital Signs Temperature 97.9 F 09/09/23 15:33 Temperature Source Temporal Artery Scan 09/09/23 15:33 Pulse Rate 75 09/09/23 15:33 Respiratory Rate 18 09/09/23 15:33 Blood Pressure 158/89 H 09/09/23 15:33 Blood Pressure Mean 112 H 09/09/23 15:33 Blood Pressure Position Sitting 09/09/23 15:33 Pulse Oximetry 96 09/09/23 15:33 Oxygen Delivery Method Room Air 09/09/23 15:33 Vital Signs Temperature 97.9 F 09/09/23 15:33 Pulse Rate 75 09/09/23 15:33 Respiratory Rate 18 09/09/23 15:33 Blood Pressure 158/89 H 09/09/23 15:33 Pulse Oximetry 96 09/09/23 15:33 Oxygen Delivery Method Room Air 09/09/23 15:33 Temperature 97.2 F L 09/09/23 19:19 Pulse Rate 81 09/09/23 19:19 Respiratory Rate 18 09/09/23 19:19 Blood Pressure 173/103 H 09/09/23 19:19 Pulse Oximetry 96 09/09/23 19:19 Oxygen Delivery Method Room Air 09/09/23 15:33 Medications Administered Medications: Generic Name Dose Route Start Last Admin Trade Name Freq PRN Reason Stop Dose Admin Sodium Chloride 250 ml 09/09/23 17:12 09/09/23 18:54 0.9 % Sodium Chloride 250 Ml IV 09/10/23 23:59 250 ml ONCE PRN Administration Medical Decision Making [facility] Narrative Medical decision making narrative: Very pleasant 77-year-old gentleman with a very complex medical history sent to the ER today with worsening anemia. He has known chronic renal disease and also chronic anemia. For the past several months he has been receiving scheduled outpatient Aranesp infusions to help treat his anemia. Baseline hemoglobin roughly around 8-9. However today when he came in for his Aranesp infusion hemoglobin was down to 6.8. Fortunately blood pressure and pulse are stable and there is no signs of a shock or active exsanguinating hemorrhage. He does report dark stools for the past several days. This raises concern for possible upper GI bleed contributing to his anemia. However his stool is heme-negative (with brown stool on my rectal exam) today. No clear evidence for active bleeding at this moment. He also has a history of colon cancer resected 5 years ago) with subsequent follow-up screening CT scans showing no recurrence and had a follow-up colonoscopy about 6 months ago in March that was normal. No visible blood to suggest active lower GI bleeding. He is not having the abdominal pain to raise concern for colitis, diverticulitis. At this point extremely low suspicion for any internal bleeding or retroperitoneal hemorrhage in the absence of any pain. Possible GI bleed is complicated by his anticoagulation. He is on Eliquis for stroke prophylaxis with AFib. He has been on it now for the past few weeks. He has noted multiple areas of bruising since starting the Eliquis (but does not have any large subcutaneous hematomas that would accumulate a large enough volume of blood to affect his overall hemoglobin). No other bleeding such as from his gums, or urinary bleeding. No hemoptysis. Will hold Eliquis at least temporarily until bleeding as a cause for anemia can be ruled out. Platelet count is normal. He does have chronic weakness and gait instability that has been worse for the past week or 2 leading to 2 near falls at home. I suspect that his worsening weakness and balance is probably due to his worsening anemia. With symptomatic anemia, weakness, falls, and hemoglobin less than 7, transfusion is indicated. Discussed the risks and benefits of transfusion including the infection risk, transfusion reaction risk, as well as the risk of fluid overload because of his chronic renal failure. Ultimately we feel the benefit would outweigh the risk. Verbal and written consent obtained. We initiated his 1st unit of packed red cells while he was here in the ER. Plan will be to do a controlled slow transfusion rather than a rapid emergent transfusion since he is hemodynamically stable. Creatinine today is 4.0 which is in the range of his baseline for the past several months. Potassium is normal. Lungs are clear and no difficulty breathing or hypoxia. No signs of fluid overload. No indication for emergent dialysis. He is at risk for developing fluid overload or pulmonary edema associated with his transfusion but at this point lungs are clear. Oxygen normal on room air. He will require admission to complete his transfusion and to monitor his hemoglobin overnight. Additionally, if he has any further dark stools or if his hemoglobin drops he will probably need inpatient workup for potential upper GI bleed. Given his medical complexity and the potential for deterioration in the hospital and the potential need for dialysis, it would be best for him to be at a tertiary care facility. He normally gets his care through the [facility]. We contacted them and they are currently on divert and not able to take this patient. Therefore we will admit him to the hospitalist service here in [place]. Dr. Goodman graciously accepting. Lab Data Labs: Lab Results 09/09/23 09/09/23 Range/Units 16:42 18:22 WBC 6.86 (4.50-11.00) K/uL RBC 2.20 L (4.30-5.90) m/uL Hgb 6.9 L* (13.5-17.5) gm/dL Hct 21.2 L (37.0-53.0) % MCV 96 (80-100) fL MCH 31 (26-34) pg MCHC 33 (32-36) gm/dL RDW Coeff of Rita 15.0 (11.5-15.5) % Plt Count 142 (140-440) K/uL Neut % (Auto) 83.5 H (42.0-72.0) % Lymph % (Auto) 6.9 L (20-44) % [place] % (Auto) 7.1 (0.0-11.0) % Eos % (Auto) 1.3 (0.0-7.0) % Baso % (Auto) 0.3 (0.0-3.0) % Neut # (Auto) 5.70 (1.7-7.0) K/uL Lymph # (Auto) 0.50 L (0.90-2.90) K/uL [place] # (Auto) 0.50 (0.00-0.90) K/UL Eos # (Auto) 0.09 (0.00-0.50) K/uL Baso # (Auto) 0.02 (0.00-0.30) K/uL Abs Immat Gran (auto) 0.06 (0.00-0.30) K/uL Imm/Tot Granulo (auto) 0.9 % Sodium 136 (135-149) mmol/L Potassium 4.8 (3.6-5.1) mmol/L Chloride 103 (96-114) mmol/L Carbon Dioxide 28 (20-32) mmol/L Anion Gap 5 L (7-15) mEq/L BUN 78 H (7-30) mg/dL Creatinine 4.0 H (0.5-1.5) mg/dL Estimated Creat Clear 15.97 Estimated GFR 15 ml/min Glucose 250 H (60-115) mg/dL Lactate 1.5 (0.5-1.9) mmol/L Calcium 8.6 (8.4-10.6) mg/dL Stool Occult Blood Negative (Negative) Blood Type B Negative Antibody Screen NEGATIVE Crossmatch (AHG) See Detail ECG Data Attestation: I personally reviewed and interpreted this ECG as follows: Interpretation: Normal sinus rhythm with 1st degree AV block Rate: 66 OH: 320 QRS axis: Normal axis. Voltage criteria for LVH ST segment/T wave: No ST segment elevation depression. QTc: 427 Discharge Plan Discharge Clinical Impression: Anemia, Weakness, Falls, Chronic anticoagulation, Chronic renal failure
[2023-09-09 16:45] LABS: Lactate* 1.5 mmol/L (0.5-1.9)
[2023-09-09 16:46] LABS: Basophils Absolute Auto 0.02 K/uL (0.00-0.30); Basophils Percent Auto 0.3 % (0.0-3.0); Eosinophils Absolute Auto 0.09 K/uL (0.00-0.50); Eosinophils Percent Auto 1.3 % (0.0-7.0); Hematocrit 21.2 % (37.0-53.0); Immature Granulocytes Abs Auto 0.06 K/uL (0.00-0.30); Immature Granulocytes Pct Auto 0.9 %; Lymphocytes Percent Auto 6.9 % (20-44); Mean Corpuscular HGB Conc 33 gm/dL (32-36); Mean Corpuscular Hemoglobin 31 pg (26-34); Mean Corpuscular Volume 96 fL (80-100); Monocytes Percent Auto 7.1 % (0.0-11.0); Neutrophils Percent Auto 83.5 % (42.0-72.0); Platelet Count* 142 K/uL (140-440); White Blood Count* 6.86 K/uL (4.50-11.00)
[2023-09-09 17:09] LABS: Hemoglobin* 6.9 gm/dL (13.5-17.5)
[2023-09-09 17:10] LABS: Slide Review Reflex No
[2023-09-09 17:17] LABS: Chloride* 103 mmol/L (96-114); Potassium* 4.8 mmol/L (3.6-5.1); Sodium* 136 mmol/L (135-149)
[2023-09-09 17:19] LABS: Est. Creatinine Clearance* 15.97; Estimated Glomerular Filt Rate 15 ml/min
[2023-09-09 17:20] LABS: Anion Gap 5 mEq/L (7-15); Blood Urea Nitrogen* 78 mg/dL (7-30); Calcium* 8.6 mg/dL (8.4-10.6); Carbon Dioxide* 28 mmol/L (20-32); Glucose* 250 mg/dL (60-115)
--- OUTSIDE RECORDS SUMMARY | 2023-09-09 17:40 | XMS_ITS | Clinical Summary ---
Author Name Unknown Organization [facility] Address [address] [place] [address] Care Team Providers Care Mason Tender Name Role Phone Clover Macias M.D. Primary Care Provider [phone] Source Comments Patient records contain information from all sites at [facility]. For routine questions regarding patient records, call [phone] during business hours, M-F 8:00 AM - 5:00 PM Central Time. Record requests for emergency care only can be directed to [phone] at any time.[facility] Allergies Active Allergy Reactions Criticality Noted Date Comments Amlodipine Edema High 07/10/2023 Epinephrine Palpitations High 11/11/2012 Tachycardia Penicillins Itching,Rash Medium 11/11/2012 Medications Medication Sig Dispensed Refills Start Date End Date Status miscellaneous medical supply [facility] [...] 0 Refill(s) 7 Active miscellaneous medical supply [facility] [place] for CPAP Machine See Instructions, fax to patient at [phone], 1 each 4 Active MULTIVITAMIN ORAL Daily [...] 1,000 mcg by mouth daily. Active DME CPAPIndications:O bstructive Sleep Apnea Adult DME Order 1 each 2 Active UltiCare Pen Needle 31 gauge x 1/4 needleIndications :Diabetes Mellitus Type 2 With Diabetic Neuropathy Hyperglycemic (HCC) Use to inject insulin daily 100 each 3 2 Active cholecalciferol (VITAMIN D3) 50 mcg (2,000 Unit) tablet Take 50 mcg by mouth daily. Active iron,carbonyl-vit flores C (VITRON-C) 65 mg iron- 125 mg [...] day with meals. 270 tablet 3 3 024 Active BD Ultra-Fine Josefina Pen Needle 32 gauge x 5/32 needle USE TO INJECT ONCE DAILY 100 each 3 4 Active OneTouch Ultra Test StripsIndications :Diabetes Mellitus Type 2 (HCC) Use to test once daily. 100 strip 3 4 Active FLUoxetine (PROzac) 10 mg capsule Take 1 capsule (10 mg total) by mouth daily. 90 capsule 1 4 Active doxazosin (CARDURA) 4 mg tablet Take 1 tablet (4 mg total) by mouth daily. 90 tablet 3 4 025 Active tirzepatide (Mounjaro) 5 mg/0.5 mL pen injector injectionIndicati ons:Morbid Obesity (HCC) Inject 0.5 mL (5 mg total) under the skin every 7 (seven) days for 4 doses. 2 mL 4 Active tirzepatide (Mounjaro) 7.5 mg/0.5 mL pen injector injectionIndicati ons:Morbid Obesity (HCC) Inject 0.5 mL (7.5 mg total) under the skin every 7 (seven) days for 4 doses. 2 mL 4 Active Additional Information Patient taking differently:7.5 mg subcutaneous Every 7 days,Current dose, Reported on 09/08/2023 tirzepatide (Mounjaro) 2.5 mg/0.5 mL pen injector injectionIndicati ons:Morbid Obesity (HCC) Inject 0.5 mL (2.5 mg total) under the skin every 7 (seven) days for 4 doses. From week 1 to week 4. 2 mL 4 Active tirzepatide (Mounjaro) 10 mg/0.5 mL pen injector injectionIndicati ons:Morbid Obesity (HCC) Inject 0.5 mL (10 mg total) under the skin every 7 (seven) days. 6 mL 3 4 025 Active atorvastatin (LIPITOR) 40 mg tabletIndications :Morbid Obesity (HCC) Take 1 tablet (40 mg total) by mouth daily. 90 tablet 3 4 Active irbesartan (AVAPRO) 75 mg tablet Take 1 tablet (75 mg total) by mouth daily. 90 tablet 3 4 Active cloNIDine (CATAPRES) 0.2 mg tablet Take 1 tablet (0.2 mg total) by mouth 2 (two) times a day. 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 1 each 4 Active torsemide (DEMADEX) 20 mg tablet Take 2 tablets (40 mg total) by mouth daily. 180 tablet 3 4 025 Active Additional Information Patient taking differently: 20 mgoral Daily, Reported on 09/08/2023 Eliquis 2.5 mg tablet Take 1 tablet by mouth 2 (two) times a day. 4 Active carvediloL (COREG) 12.5 mg tablet Take 0.5 tablets (6.25 mg total) by mouth 2 (two) times a day with meals. 180 tablet 4 Active flash glucose sensor (FreeStyle Brionna 2 Sensor) kitIndications:Di abetes Mellitus Type 2 With Proliferative Diabetic Retinopathy Without Macular Edema Bilateral (HCC) Inject 1 each (1 kit total) under the skin every 14 (fourteen) days. 6 kit 3 4 025 Active prednisoLONE acetate (PRED FORTE) 1 % ophthalmic suspension INSTILL ONE DROP INTO LEFT EYE ONCE DAILY 5 mL 2 4 Active insulin glargine 100 unit/mL (3 mL) injection Inject 18 Units under the skin at bedtime. Pharmacy select brand per patient insurance/prefer ence. Active carvediloL (COREG) 12.5 mg tablet TAKE ONE TABLET BY MOUTH TWICE A DAY WITH MEALS 180 tablet 3 3 024 Discontinued prednisoLONE acetate (PRED FORTE) 1 % ophthalmic suspension place 1 drop into the left eye once daily. 5 mL 3 024 Discontinued torsemide (DEMADEX) 20 mg tablet Take 3 tablets (60 mg total) by mouth daily. 270 tablet 3 4 024 Discontinued(Re order) FreeStyle Brionna 2 Sensor kitIndications:Di abetes Mellitus Type 2 With Proliferative Diabetic Retinopathy Without Macular Edema Bilateral (HCC) APPLY SENSOR EVERY 14 DAYS. 8 each 4 024 Discontinued(Re order) carvediloL (COREG) 12.5 mg tablet take one tablet by mouth twice a day with meals 180 tablet 4 024 Discontinued(Re order) Hospital, Clinic, or Other Facility Administered Medication [...] Overview: Added automatically from request for surgery [id number] Cancer Colon Transverse Personal History 020 Overview: 03/2018 No evidence of metastatic disease, stable colon, diverticulosis on CT 04/09/2020 ([facility], [facility]) Repeat colonoscopy fall [address] Sewell (oncology, [place]), follow up Dr. Sewell 6-12 months with [...] of 03/2020 and determined to be benign ([facility] records). Obstructive Sleep Apnea Adult [...] Overview: Added automatically from request for surgery [id number] Hematochezia 11/09/2017 07/01/2018 Overview: Added automatically from request for surgery [id number] Diarrhea 11/09/2017 09/28/2018 Overview: S/P recurrent c diff. Tolerates 1500mg metformin per day. Cancer Colon Family History 01/19/2015 01/06/2020 Chronic Kidney Disease (CKD) , Stage 3b Glomerular Filtration Rate (GFR) 30 To 44 10/08/2009 08/28/2023 Encounters Date Type Department Care Team Description 09/09/2023 Clinical Communication Division of Nephrology and Hypertension in [place], [place] [address] [place] [address] Sera Casiano M.D., Ph.D. 09/08/2023 2:00 PM CDT Virtual Visit Department of Family Medicine, [facility], in [address] [address] Clover Macias M.D. 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 Med Refill 09/01/2023 Clinical Communication Department of Community Internal Medicine in [place] [address] [place] [phone] Clover Macias M.D. 08/28/2023 3:30 PM CDT Office Visit Department of Community Internal Medicine in [place] [address] [place] [phone] Clover Macias M.D. Follow Up Exam (Primary [...] or Self Care 08/28/2023 Refill Department of Community Internal Medicine in [place] [address] [place] [phone] Clover Macias M.D. Med Refill 08/27/2023 Refill Division of Nephrology and Hypertension in [place], [place] [address] [place] [address] Mónica Portillo APRN, C.N.P., M.S. Med Refill 08/25/2023 Clinical Communication Division of Nephrology and Hypertension in [place], [place] [address] [place] [address] Sera Casiano M.D., Ph.D. infusion orders 08/25/2023 Refill Department of Ophthalmology in [place], [place] [address] [place] [address] Jon Juarez M.D. Med Refill 08/22/2023 Nurse Triage Department of Community Internal Medicine in [address] [place] [address] Savanah Gibson M.S.N., R.N. Hyperglycemia 08/21/2023 Orders Only Division of Endocrinology in [place], [place] [address] [place] [address] Cammy Silva M.D. Diabetes Mellitus Type 2 With Diabetic Neuropathy (HCC) (Primary Dx) 08/21/2023 Refill Department of Community Internal Medicine in [place] [address] [place] [phone] Clover Macias M.D. Med Refill 08/20/2023 3:08 PM CDT - 08/20/2023 11:59 PM CDT Hospital Encounter Department of Radiology in [place] [address] [place] [address] Clover Macias M.D. Atrial Fibrillation Unspecified (HCC); Hypertensive Chronic Kidney Disease With Stage 5 Chronic Kidney Disease Or End Stage Renal Disease, Chronic Kidney Disease Stage 5 (HCC) Discharge Disposition: Home or Self Care 08/20/2023 3:07 PM CDT Hospital Encounter Department of Radiology in [place] [address] [place] [address] Clover Macias M.D. Atrial Fibrillation Unspecified (HCC); Hypertensive Chronic Kidney Disease With Stage 5 Chronic Kidney Disease Or End Stage Renal Disease, Chronic Kidney Disease Stage 5 (HCC) Discharge Disposition: Home or Self Care 08/20/2023 3:00 PM CDT - 08/20/2023 3:06 PM CDT Hospital Encounter Department of Laboratory Medicine in [place] [address] [place] [address] Clover Macias M.D. Atrial Fibrillation Unspecified (HCC); Hypertensive Chronic Kidney Disease With Stage 5 Chronic Kidney Disease Or End Stage Renal Disease, Chronic Kidney Disease Stage 5 (HCC) Discharge Disposition: Home or Self Care 08/20/[address] 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 08/19/2023 Orders Only Department of Community Internal Medicine in [place] [address] [place] [phone] Clover Macias M.D. Atrial Fibrillation Unspecified (HCC) (Primary Dx); Hypertensive Chronic Kidney Disease With Stage 5 Chronic Kidney Disease Or End Stage Renal Disease, Chronic Kidney Disease Stage 5 (HCC) 08/17/2023 Refill Department of Community Internal Medicine in [place] [address] [place] [phone] Clover Macias M.D. Med Refill 08/16/2023 Nurse Triage Department of Community Internal Medicine in [place], [place] [address] [place] [address] [place] [address] Philomena Raya R.N. Bradycardia; Weakness - Generalized 08/10/2023 Clinical Communication Division of Nephrology and Hypertension in [place], [place] [address] [place] [address] Kanwal Roberts R.N. 08/05/2023 4:00 PM CDT External Outreach Division of Nephrology and Hypertension in [place], [place] [address] [place] [address] Sera Casiano M.D., Ph.D. Chronic Kidney Disease Stage 5 Glomerular Filtration Rate Less Than 15 (HCC) (Primary Dx); Preoperative Exam; Hypertensive Chronic Kidney Disease With Stage 5 Chronic Kidney Disease Or End Stage Renal Disease, Chronic Kidney Disease Stage 5 (HCC) 07/29/2023 2:40 PM CDT - 07/29/2023 11:59 PM CDT Hospital Encounter [place] [address] [place] [address] Sera Casiano M.D., Ph.D. Sandeep Kuo M.D., Ph.D. Chronic Kidney Disease Stage 5 Glomerular Filtration Rate Less Than 15 (HCC) Discharge Disposition: Home or Self Care 07/29/2023 12:13 PM CDT - 07/29/2023 2:39 PM CDT Hospital Encounter Department of Radiology, [place], [place] [address] [place] [address] Sera Casiano M.D., Ph.D. Chronic Kidney Disease Stage 5 Glomerular Filtration Rate Less Than 15 (HCC) Discharge Disposition: Home or Self Care 07/29/2023 10:52 AM CDT - 07/29/2023 12:12 PM CDT Hospital Encounter Department of Radiology, [facility] in [place], [place] [address] [place] [address] Sera Casiano M.D., Ph.D. 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 07/23/2023 Clinical Communication Division of Nephrology and Hypertension in [place], [place] [address] [place] [address] Monica Ferreira R.N., C.M.S.R.N. 07/17/2023 1:00 PM CDT Virtual Visit Division of Nephrology and Hypertension in [place], [place] [address] [place] [address] Sera Casiano M.D., Ph.D. Kanwal Roberts, R.N. Chronic Kidney Disease Stage 5 Glomerular Filtration Rate Less Than 15 (HCC) (Primary Dx) 07/17/2023 Orders Only Division of Nephrology and Hypertension in [place], [place] [address] [place] [address] Sera Casiano M.D., Ph.D. 07/11/2023 Refill Division of Nephrology and Hypertension in [place], [place] [address] [place] [address] Mónica Portillo APRN, C.N.P., M.S. Med Refill 07/10/2023 2:30 PM CDT Nurse Only Division of Nephrology and Hypertension in [place], [place] [address] [place] [address] Sera Casiano M.D., Ph.D. Aislinn Sharma R.N. home blood pressure monitor check 07/10/2023 1:00 PM CDT Comprehensive Visit Division of Nephrology and Hypertension in [place], [place] [address] [place] [address] Sera Casiano M.D., Ph.D. Elana Almonte, JANINAN, LD Chronic Kidney Disease Stage 5 Glomerular Filtration Rate Less Than 15 (HCC) 07/06/2023 9:06 AM CDT - 07/06/2023 11:59 PM CDT Hospital Encounter Department of Laboratory Medicine in [address] [place] [address] Sera Casiano M.D., Ph.D. Hypertension And Chronic Kidney Disease Stage 5 (HCC); Proteinuria; 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 Discharge Disposition: Home or Self Care 07/06/2023 9:06 AM CDT - 07/06/2023 11:59 PM CDT Hospital Encounter Department of Laboratory Medicine in [address] [place] [address] Sera Casiano M.D., Ph.D. Hypertension And Chronic Kidney Disease Stage 5 (HCC); Proteinuria; 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 Discharge Disposition: Home or Self Care 06/30/2023 Orders Only Division of Nephrology and Hypertension in [place], [place] [address] [place] [address] Sera Casiano M.D., Ph.D. 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 06/29/2023 1:30 PM INTERACTIVE MEDIA DESIGNER Comprehensive Visit Division of Endocrinology in [address] [address] Sera Casiano M.D., Ph.D. Cammy Silva M.D. Diabetes Mellitus Type 2 (HCC) (Primary Dx); Hypertension And Chronic Kidney Disease Stage 5 (HCC); Proteinuria; Insufficiency Adrenal Secondary (HCC); Morbid Obesity (HCC) 06/29/2023 11:47 AM INTERACTIVE MEDIA DESIGNER - 06/29/2023 11:59 PM INTERACTIVE MEDIA DESIGNER Hospital Encounter Department of Laboratory Medicine and Pathology, [facility] in [address] [address] Sera Casiano M.D., Ph.D. Hyperkalemia; 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 Discharge Disposition: Home or Self Care 06/26/2023 4:00 PM INTERACTIVE MEDIA DESIGNER Office Visit Division of Nephrology and Hypertension in [address] [address] Sera Casiano M.D., Ph.D. Chronic Kidney Disease Stage 5 Glomerular Filtration Rate Less Than 15 (HCC) (Primary Dx); Hyperkalemia; 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 06/26/2023 3:00 PM INTERACTIVE MEDIA DESIGNER Education Division of Nephrology and Hypertension in [address] [address] Sera Casiano M.D., Ph.D. Sandeep Galicia, R.N. Chronic Kidney Disease Stage 4 Glomerular Filtration Rate 15-29 (HCC) 06/26/2023 8:15 AM INTERACTIVE MEDIA DESIGNER Internal E-Consult Division of Pulmonary Medicine in [address] [phone] Louie Aleman M.D. 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 06/16/2023 Orders Only Division of Nephrology and Hypertension in [place], [place] [address] [place] [address] Sandeep Galicia R.Garima Chronic Kidney Disease Stage 4 Glomerular Filtration Rate 15-29 (HCC) (Primary Dx) 06/15/2023 3:20 PM INTERACTIVE MEDIA DESIGNER - 06/15/2023 11:59 PM INTERACTIVE MEDIA DESIGNER Hospital Encounter Department of Laboratory Medicine and Pathology, [facility] in [place], [place] [address] [place] [address] Sera Casiano M.D., Ph.D. Chronic Kidney Disease Stage 5 Glomerular Filtration Rate Less Than 15 (HCC) Discharge Disposition: Home or Self Care 06/15/2023 2:45 PM INTERACTIVE MEDIA DESIGNER Office Visit Department of Ophthalmology in [place], [place] [address] [place] [address] Justin Bunch M.D. 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 Sandeep Galicia R.N. Chronic Kidney Disease Stage 5 Glomerular Filtration Rate Less Than 15 (HCC) 06/15/2023 Orders Only Department of Ophthalmology in [place], [place] [address] [place] [address] Jahaira, Bailey R, C.O.A. 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 06/15/2023 Orders Only Division of Nephrology and Hypertension in [place], [place] [address] [place] [address] Sera Casiano M.D., Ph.D. Chronic Kidney Disease Stage 5 Glomerular Filtration Rate Less Than 15 (HCC) (Primary Dx) 06/15/2023 Ancillary Procedure Department of Ophthalmology 06/15/2023 Orders Only Division of Nephrology and Hypertension in [place], [place] [address] [place] [address] Sera Casiano M.D., Ph.D. Chronic Kidney Disease Stage 5 Glomerular Filtration Rate Less Than 15 (HCC) (Primary Dx) 06/12/2023 10:50 AM INTERACTIVE MEDIA DESIGNER - 06/12/2023 11:59 PM INTERACTIVE MEDIA DESIGNER Hospital Encounter Department of Laboratory Medicine in [address] [place] [address] Mónica Portillo APRN, C.N.P., M.S. Hypertension And [...] Unspecified 09/05/2022(Deferred: Other) Influenza (IM) Preservative Free 01/25/2009,04/2007 Influenza Split 01/25/2009, 8,02/15/1997,1995 Influenza high dose [...] sanchez in March 1960 Cancer Sister Pat Sarad colon Colon cancer Sister Pat Amanda A survivor, lance gnosed March 2005 Depression Sister Pat Delvintad Hypertension Sister Pat Delvintad Obesity Sister Pat Delvintad Sleep apnea Sister Pat Delvintaemmanuelle Heart disease Neg Hx Relation Name Status [...] e alcohol) Maybe one drink per month [facility] Utilities Answer Date Recorded In the past 12 months has e [employer], gas, oil, or water [employer] threatened to shut off services in your [...] often do you attend chur ch or jew services? Never 07/28/2022 Do you [...] Answer Date Recorded PHQ-2 Score 2 05/28/2023 [facility] [place] [facility] - Occupational Stress [...] living situation today? I have a [facility] place to live 08/28/2023 Education Answer Date Recorded What is the highest level of school you have completed or the highest degree you have received? Professional school degree (e.g., , DDS, DVM, NACHO) 10/10/2020 Sex and Gender Information Value Date Recorded Sex Assigned at Male 05/13/2021 10:11 AM INTERACTIVE MEDIA DESIGNER Gender Identity Male 11/02/2017 7:22 PM CDT Sexual Orientation Straight 11/02/2017 7: 22 PM CDT Last Filed Vital Signs Vital Sign Reading Time Taken Comments Blood Pressure 112/64 08/28/2023 4:16 PM CDT Pulse 52 08/28/2023 4:16 PM CDT Temperature 36.7 ??C (98.1 ??F) 04/07/2023 2:34 PM CS T Respiratory Rate 17 04/07/2023 2:34 PM INTERACTIVE MEDIA DESIGNER Oxygen Saturation 93% 08/28/2023 3:24 PM CDT Inhaled Oxygen Concentration - - Weight 148 kg (326 lb 8 oz) 08/28/2023 3:24 PM C DT Height 176.9 cm (5' 9.65) 07/10/2023 1:33 PM CD T Body Mass Index 47.33 07/10/2023 1:33 PM CDT Plan of Treatment Upcoming Encounters Date Type Department Care Team (Latest Contact Info) Description 09/10/2023 10:45 AM CDT Clinical Communication Virtual Review in [place], [place] [address] [place] [address] 09/10/2023 1:00 PM CDT Appointment Department of Radiology in [place] [address] [place] [address] Sera Casiano M.D., Ph.D. [address] [place] [address] Discharge Disposition: Home or Self Care 09/10/2023 1:20 PM CDT Appointment Department of Laboratory Medicine in [place] [address] [place] [address] Sera Casiano M.D., Ph.D. [address] [place] [address] 09/10/2023 2:30 PM CDT Ancillary Procedure Department of Cardiovascular Diseases in [address] [address] Clover Macias M.D. [address] [place] [address] Discharge Disposition: Home or Self Care 10/01/2023 9:30 AM CDT Comprehensive Visit Department of Cardiovascular Diseases in [address] [address] Nikko Dey M.D. [address] [place] [address] Discharge Disposition: Home or Self Care 10/05/2023 1:30 PM CDT Comprehensive Visit Division of Pulmonary Medicine in [place], [place] [address] [place] [phone] Luis Carrion M.B.BJosé LuisS. [address] [place] [address] 10/27/2023 2:25 PM CDT Appointment Department of Cardiovascular Diseases in [place], [place] [address] [place] [address] Clover Macias M.D. [address] [place] [address] Discharge Disposition: Home or Self Care Health [...] Erythropoietin FERRITIN, S Routine 06/29/2023 12:11 PM INTERACTIVE MEDIA DESIGNER 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 IRON AND TOT IRON-BINDING CAPACITY, S/P Routine 06/29/2023 12:11 PM INTERACTIVE MEDIA DESIGNER 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 RENAL FUNCTION PANEL, S Routine 06/29/2023 12:11 PM INTERACTIVE MEDIA DESIGNER Hyperkalemia QUANTIFERON-TB GOLD PLUS, B Routine 06/15/2023 4:07 PM INTERACTIVE MEDIA DESIGNER Chronic Kidney Disease Stage 5 Glomerular Filtration Rate Less Than 15 (HCC) BASIC METABOLIC PANEL, S/P Routine 06/15/2023 4:06 PM INTERACTIVE MEDIA DESIGNER Chronic Kidney Disease Stage 5 Glomerular Filtration Rate Less Than 15 (HCC) HEPATITIS B SURFACE ANTIGEN Routine 06/15/2023 4:06 PM INTERACTIVE MEDIA DESIGNER Chronic Kidney Disease Stage 5 Glomerular Filtration Rate Less Than 15 (HCC) HCV AB W/REFLEX TO HCV PCR, S Routine 06/15/2023 4:06 PM INTERACTIVE MEDIA DESIGNER Chronic Kidney Disease Stage 5 Glomerular Filtration Rate Less Than 15 (HCC) HBC TOTAL AB, SERUM Routine 06/15/2023 4 :06 PM INTERACTIVE MEDIA DESIGNER Chronic Kidney Disease Stage 5 Glomerular Filtration Rate Less Than 15 (HCC) HBS ANTIBODY, SERUM Routine 06/15/2023 4 :06 PM INTERACTIVE MEDIA DESIGNER Chronic Kidney Disease Stage 5 Glomerular Filtration Rate Less Than 15 (HCC) OPTICAL COHERENCE TOMOGRAPHY - MACULA/RETINA - OU - BOTH EYES Routine 06/15/2023 2:26 PM INTERACTIVE MEDIA DESIGNER 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) OPHTHALMOLOGY IMAGE EXAM Routine 06/15/2023 12:00 AM INTERACTIVE MEDIA DESIGNER CBC WITH DIFFERENTIAL, B Routine 06/12/2023 10:53 AM INTERACTIVE MEDIA DESIGNER Anemia Of Chronic Renal Disease FOLATE, S Routine 06/12/2023 10:53 AM INTERACTIVE MEDIA DESIGNER Hypertension And Chronic Kidney Disease Stage 5 (HCC) Proteinuria 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 Acute Metabolic Acidosis Hyperphosphatemia Hypocalcemia VITAMIN B12 ASSAY, S Routine 06/12/2023 10:53 AM INTERACTIVE MEDIA DESIGNER Hypertension And Chronic Kidney Disease Stage 5 (HCC) Proteinuria 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 Acute Metabolic Acidosis Hyperphosphatemia Hypocalcemia COLONOSCOPY Routine 04/07/2023 1:48 PM INTERACTIVE MEDIA DESIGNER Cancer Colon Transverse Personal History HEMOGLOBIN A1C, B Routine 03/30/2023 12:21 PM INTERACTIVE MEDIA DESIGNER Hypertension And Chronic Kidney Disease Stage 5 [...] MUSE QTC Interval 414 ms MUSE R [place] -12 degrees MUSE T Wave [place] 95 degrees MUSE 08/28/2023 4:11 PM CDT [...] DIAGNOSTIC IMAG ING PROCEDURES * Thyroid Function [place] (08/20/2023 3:17 PM CDT) TSH, Sensitive 2.7 0.3 - 4.2 mIU/L 08/20/2023 8:07 PM CDT RDWG Blood (Blood, Venous) 08/20/2023 3:17 PM CDT 08/20/2023 7:01 PM CDT Clover Macias M.D. LAB BLOOD ADD-ON [facility] [address] [place] [address], [facility] RDWG [facility] [place] [address] [place] [address] * (ABNORMAL) CBC without Differential (08/20/2023 3:17 [...] M.D. LAB BLOOD ADD-ON Performing Organization Address City/[facility]/ZIP Co de Phone Number [facility] [address] [place] [address], [place] [address], [facility] RDWG [facility] in [address] [address] * Magnesium (08/20/2023 3:17 PM CDT) Magnesium, P 2.0 1.7 - 2.3 mg/dL 08/20/2023 7:37 PM CDT RDW[facility] Blood (Blood, Venous) 08/20/2023 3:17 PM CDT 08/20/2023 7:00 PM CDT Clover Macias M.D. LAB BLOOD ADD-ON [facility] [address] [place] [address], [place] [address], [facility] RDWG [facility] in [address] [address] * (ABNORMAL) Comprehensive Metabolic Panel (08/20/2023 3:17 [...] CDT Clover Macias M.D. LAB BLOOD ADD-ON [facility] [address] [place] [address], [place] RDWG [facility] [place] [address] [place] [address] * US Upper Extremity Bilateral Dialysis Mapping [...] Hyman M.D., Ph.D. LAB UR INE ORDERABLES [address] [facility] [address] [place] [address] * (ABNORMAL) Microscopic Manual (07/29/2023 10:27 AM CDT) Pathologist [facility] Microscopy Abnormal 07/29/2023 1:01 PM CDT DTL [...] LAB UR INE ORDERABLES Performing Organization Address City/[facility] [place] [address] * pH, Urine (07/29/2023 10:27 AM CDT) Pathologist [facility] pH, U 6.2 4.5 - 8.0 07/29/2023 11: 02 AM CDT DT Urine 07/29/2023 10:2 7 AM CDT 07/29/2023 10:35 AM CDT Sera Hyman M.D., Ph.D. LAB UR INE ORDERABLES Performing Organization Address City/[facility] [place] [address] * Osmolality, Urine (07/29/2023 10:27 AM CDT) Pathologist [facility] Osmolality, U 323 150 - 1150 mOsm/kg 07/29/2023 11:02 AM CDT [facility] Urine 07/29/2023 10:2 7 AM CDT 07/29/2023 10:35 AM CDT Sera Hyman M.D., Ph.D. LAB UR INE ORDERABLES Performing Organization Address City/[facility]/ZIP Co de Phone Number [facility] [address] [place] [address] * (ABNORMAL) Urinalysis, with Microscopic: Urine, Midstream [...] 07/29/2023 11:44 AM CDT DTL Predicted Range [id number] mg/24 h 07/29/2023 11:44 AM CDT DTL Comment Micro done on <10 mL 07/29/2023 1:01 PM CDT DTL Urine (Urine, Midstream) 07/29/2023 10:27 AM CDT 07/29/2023 10:35 AM CDT Sera Hyman M.D., Ph.D. LAB UR INE ORDERABLES [facility] [address] [place] [address], [facility] [address] [place] [address] * ANCA (Antineutrophil Cytoplasmic Antibodies) Vasculitis Panel (07/29/2023 10:17 AM CDT) Myeloperoxidase Ab, S <0.2 <0.4 (Negative ) U 07/29/2023 4:45 PM CDT SDSC Proteinase 3 Ab (PR3), S <0.2 <0.4 (Negative ) U 07/29/2023 4:45 PM CDT SDS Blood (Blood, Venous) 07/29/2023 10:17 AM CDT 07/29/2023 2:52 PM CDT Sera Hyman M.D., Ph.D. LAB BL OOD ADD-ON [facility] [address] [place] [address] [facility] [address] [place] [address] * (ABNORMAL) CBC with Differential, Blood (07/29/2023 [...] Hyman M.D., Ph.D. LAB BL OOD ADD-ON [facility] [address] [place] [address], [facility] [address] [place] [address] [facility] [address] [place] [address] * CRP (C-Reactive Protein) (07/29/2023 10:17 AM CDT) C-Reactive Protein (CRP), S <3.0 <5.0 mg/L 07/29/2023 12:32 PM CDT DTL Blood (Blood, Venous) 07/29/2023 10:17 AM CDT 07/29/2023 10:55 AM CDT Sera Hyman M.D., Ph.D. LAB BL OOD ADD-ON Performing Organization Address City/[facility]/ZIP Co de Phone Number [facility] [address] [place] [address], [facility] [address] [place] [address] * (ABNORMAL) Uric Acid (07/29/2023 10:17 AM CDT) Only the most recent of2 resultswithin the time period is included. Uric Acid, S 11.2(H) 3.7 - 8.0 mg/dL 07/29/2023 12:32 PM CDT DTL Blood (Blood, Venous) 07/29/2023 10:17 AM CDT 07/29/2023 10:55 AM CDT Sera Hyman M.D., Ph.D. LAB BL OOD ADD-ON [facility] [address] [place] [address], [facility] [address] [place] [address] * Phosphorus Inorganic (07/29/2023 10:17 AM CDT) Phosphorus (Inorganic), S 4.5 2.5 - 4.5 mg/dL 07/29/2023 12:32 PM CDT DTL Blood (Blood, Venous) 07/29/2023 10:17 AM CDT 07/29/2023 10:55 AM CDT Sera Hyman M.D., Ph.D. LAB BL OOD ADD-ON Performing Organization Address City/[facility]/ZIP Co de Phone Number [facility] [address] [place], [place] [address] [place] [address] [address] [place] [address] * (ABNORMAL) Glucose, Fasting (07/29/2023 10:17 AM CDT) Pathologist [facility] Glucose, P 256(H) 70 - 100 mg/dL 07/29/2023 11:15 AM CDT DTL Last Intake 16 hr 07/29/2023 10:52 AM CDT DTL Blood (Blood, Venous) 07/29/2023 10:17 AM CDT 07/29/2023 10:52 AM CDT Sera Hyman M.D., Ph.D. LAB BL OOD NON ADD-ON Performing Organization Address [facility] Co de Phone Number [facility] [address] [place], [place] [address] [place] [address] [address] [place] [address] * Pulmonary Function Tests (07/29/2023 9:02 AM CDT) Pathologist [facility] FVC 2.15 L 07/29/2023 10:32 AM CDT [facility] FEV1 1.56 L 07/29/2023 10:32 AM CDT [facility] FEV1/FVC 72.56 % 07/29/2023 10:32 AM CDT [facility] CUA73-30% 1.03 L/s 07/29/2023 10:32 AM CDT [facility] PEF PRE 5.91 L/s 07/29/2023 10:32 AM CDT [facility] PIF PRE 3.35 L/s 07/29/2023 10:32 AM CDT [facility] FEF 50 % FIF 50 PRE 54.00 % 07/29/2023 10:32 AM CDT [facility] FET PRE 9.49 sec 07/29/2023 10:32 AM CDT [facility] DLCO 10.65 ml/(min*mm Hg) 07/29/2023 10:32 AM CDT [facility] DLCOc 14.91 ml/(min*mm Hg) 07/29/2023 10:32 AM CDT [facility] HB 7.40 g(Hb)/dL 07/29/2023 10:32 AM CDT [facility] VA 4.05 L 07/29/2023 10:32 AM CDT [facility] PulseRest 50.00 1/min 07/29/2023 10:32 AM CDT [facility] TLC 4.43 L 07/29/2023 10:32 AM CDT [facility] FRCPLETH PROVBASE 2.72 L 07/29/2023 10:32 AM CDT [facility] RV 1.96 L 07/29/2023 10:32 AM CDT [facility] RV % TLC PRE 44.12 % 07/29/2023 10:32 AM CDT [facility] 07/29/2023 9:02 AM CDT Impressions [facility] - 07/29/2023 10:32 AM CDT [...] Hyman M.D., Ph.D. LAB BL OOD ADD-ON [facility] [address] [place] [address], [facility] RDWG [facility] [place] [address] [place] [address] * (ABNORMAL) Cystatin C with Estimated GFR [...] Hyman M.D., Ph.D. LAB BL OOD ADD-ON [facility] [address] [place] [address], [place] DTL [facility] [address] [place] [address] * (ABNORMAL) Iron and Total Iron-Binding Capacity (07/06/2023 9:22 AM CDT) Only the most recent of2 resultswithin the time period is included. Pathologist [facility] Iron 52 50 - 150 mcg/dL 07/06/2023 12:48 PM CDT RDWG Total Iron Binding Capacity 222(L) 250 - 400 mcg/dL 07/06/2023 12:48 PM CDT RDWG Percent Saturation 23 14 - 50 % 07/06/2023 12:48 PM CDT RDWG Blood (Blood, Venous) 07/06/2023 9:22 AM CDT 07/06/2023 11:51 AM CDT Sera Hyman M.D., Ph.D. LAB BL OOD ADD-ON [facility] [address] [place] [address], [facility] RDWG [facility] [place] [address] [place] [address] * (ABNORMAL) Albumin, Random, Urine (07/06/2023 9:22 AM CDT) Microalbumin 2309.6 mg/L 07/06/2023 1:30 PM CDT RDWG Creatinine 69 mg/dL 07/06/2023 12:51 PM CDT RDWG Albumin/Creatinin e Ratio 3347(H) <17 mg/g 07/06/2023 1:30 PM CDT RDWG Urine (Urine, Voided) 07/06/2023 9:22 AM CDT 07/06/2023 11:59 AM CDT Sera Hyman M.D., Ph.D. LAB UR INE ORDERABLES [facility] [address] [place] [address], [facility] RDWG [facility] in [address] [address] * (ABNORMAL) Protein/Creatinine Ratio, Random, Urine (07/06/2023 [...] LAB UR INE ORDERABLES Performing Organization Address City/[facility]/ZIP Co de Phone Number [facility] [address] [place] [address], [facility] RDWG [facility] [place] [address] [place] [phone] * (ABNORMAL) Ferritin (07/06/2023 9:22 AM CDT) Only the most recent of2 resultswithin the time period is included. Ferritin, S 457(H) 31 - 409 mcg/L 07/06/2023 12:57 PM CDT RDWG Comment: Biotin has been identified by the cotton inspector as a potential interfering substance. Higher concentrations of biotin may be found in multivitamins, hair/nail supplements, and workout supplements. If the result does not match clinical observations, repeat testing after patient refrains from the use of supplements for at least 12 hours. Blood (Blood, Venous) 07/06/2023 9:22 AM CDT 07/06/2023 11:51 AM CDT Sera Hyman M.D., Ph.D. LAB BL OOD ADD-ON [facility] [address] [facility] [place] [address], [facility] RDWG [facility] [place] [address] [place] [phone] * QuantiFERON-Tb Gold Plus, Blood (06/15/2023 4:07 PM INTERACTIVE MEDIA DESIGNER) [facility] QuantiFERON-TB Gold Plus Result Negative Negative 06/16/2023 12:08 PM INTERACTIVE MEDIA DESIGNER SDS Comment: No interferon-gamma response to M. [...] Nil Result 0.02 IU/mL 06/16/2023 12:08 PM INTERACTIVE MEDIA DESIGNER SDSC TB2 Ag minus Nil Result 0.01 IU/mL 06/16/2023 12:08 PM INTERACTIVE MEDIA DESIGNER SDSC Mitogen minus Nil Result 3.42 IU/mL 06/16/2023 12:08 PM INTERACTIVE MEDIA DESIGNER SDSC Nil Result 0.04 IU/mL 06/16/2023 12:08 PM INTERACTIVE MEDIA DESIGNER SDSC Blood (Blood, Venous) 06/15/2023 4:07 PM INTERACTIVE MEDIA DESIGNER 06/15/2023 5:59 PM INTERACTIVE MEDIA DESIGNER Narrative [facility] - 06/16/2023 12:08 PM INTERACTIVE MEDIA DESIGNER Specimen Information: Specimen ID: [id number] Specimen Type: Blood Specimen Collection Start Date: 06/15/2023 ??4:07 PM Specimen Received Date: 06/15/2023 ??5:59 PM Specimen ID: [id number] Specimen Type: Blood Specimen Collection Start Date: 06/15/2023 ??4:07 PM Specimen Received Date: 06/15/2023 ??5:59 PM Specimen ID: [id number] Specimen Type: Blood Specimen Collection Start Date: 06/15/2023 ??4:07 PM Specimen Received Date: 06/15/2023 ??5:59 PM Specimen ID: [id number] Specimen Type: Blood Specimen Collection Start Date: 06/15/2023 ??4:07 PM Specimen Received Date: 06/15/2023 ??5:59 PM Sera Hyman M.D., Ph.D. LAB [facility] BLOOD ORDERABLES Performing Organization Address City/[facility]/ZIP Co de Phone Number [facility] [address] [place] [id number] [place] [address] [place] [address] * HCV Ab w/Reflex to HCV PCR, Serum (06/15/2023 4:06 PM INTERACTIVE MEDIA DESIGNER) HCV Ab, S Negative Negative 06/15/2023 10:21 PM INTERACTIVE MEDIA DESIGNER [facility] Comment:[id number] rat io is <1.00. Blood (Blood, Venous) 06/15/2023 4:06 PM INTERACTIVE MEDIA DESIGNER 06/15/2023 8:15 PM INTERACTIVE MEDIA DESIGNER Sera Hyman M.D., Ph.D. LAB [facility] - BLOOD ORDERABLES Performing Organization Address [facility]/ZIP Co de Phone Number [facility] [address] [place] [address] [place] [address] * HBc Total Ab, Serum (06/15/2023 4:06 PM INTERACTIVE MEDIA DESIGNER) HBc Total Ab, S Negative Negative 06/15/2023 10:17 PM INTERACTIVE MEDIA DESIGNER [facility] Blood (Blood, Venous) 06/15/2023 4:06 PM INTERACTIVE MEDIA DESIGNER 06/15/2023 8:15 PM INTERACTIVE MEDIA DESIGNER Sera Hyman M.D., Ph.D. LAB [facility] BLOOD ORDERABLES Performing Organization Address City/[facility]/ZIP Co de Phone Number [facility] [address] [place] [address] [facility] [address] [place] [address] * HBs Antibody, Serum (06/15/2023 4:06 PM INTERACTIVE MEDIA DESIGNER) HBs Antibody, S Negative 06/15/2023 10:18 PM INTERACTIVE MEDIA DESIGNER [facility] Comment: Patient is presumed to be not immune to infection with HBV. ----REFERENCE VALUE---- Unvaccinated: Negative Vaccinated: Positive HBs Antibody, Quantitative, S <5.0 mIU/mL 06/15/2023 10:18 PM INTERACTIVE MEDIA DESIGNER [facility] Comment: ----REFERENCE VALUE---- Unvaccinated: <5.0 Vaccinated: >=12.0 Blood (Blood, Venous) 06/15/2023 4:06 PM INTERACTIVE MEDIA DESIGNER 06/15/2023 8:15 PM INTERACTIVE MEDIA DESIGNER Sera Hyman M.D., Ph.D. LAB [facility] BLOOD ORDERABLES Performing Organization Address [facility]/ZIP Co de Phone Number [facility] [address] [place], [place] [address] [place] [address] [place] [address] * Hepatitis B Surface Antigen (06/15/2023 4:06 PM INTERACTIVE MEDIA DESIGNER) Pathologist [facility] HBs Antigen, S Negative Negative 06/15/2023 10:03 PM INTERACTIVE MEDIA DESIGNER [facility] Blood (Blood, Venous) 06/15/2023 4:06 PM INTERACTIVE MEDIA DESIGNER 06/15/2023 8:15 PM INTERACTIVE MEDIA DESIGNER Sera Hyman M.D., Ph.D. LAB [facility] BLOOD ORDERABLES Performing Organization Address City/[facility]/ZIP Co de Phone Number [facility] [address] [place] [address] [place] [address] * (ABNORMAL) Basic Metabolic Panel (06/15/2023 4:06 PM INTERACTIVE MEDIA DESIGNER) Pathologist [facility] Potassium, S 5.6(H) 3.6 - 5.2 mmol/L 06/15/2023 4:59 PM INTERACTIVE MEDIA DESIGNER DTL Sodium, S 142 135 - 145 mmol/L 06/15/2023 4:59 PM INTERACTIVE MEDIA DESIGNER DTL Chloride, S 105 98 - 107 mmol/L 06/15/2023 4:59 PM INTERACTIVE MEDIA DESIGNER DTL Bicarbonate, S 23 22 - 29 mmol/L 06/15/2023 4:59 PM INTERACTIVE MEDIA DESIGNER DTL Anion Gap 14 7 - 15 06/15/2023 4:59 PM INTERACTIVE MEDIA DESIGNER DTL BUN (Blood Urea Nitrogen), S 68(H) 8 - 24 mg/dL 06/15/2023 4:59 PM INTERACTIVE MEDIA DESIGNER DTL Creatinine 4.61(H) 0.74 - 1.35 mg/dL 06/15/2023 4:59 PM INTERACTIVE MEDIA DESIGNER DTL Estimated GFR (eGFR) <15(L) >=60 mL/min/BSA 06/15/2023 4:59 PM INTERACTIVE MEDIA DESIGNER DTL Comment: Estimated GFR calculated using the 2020 CKD_EPI creatinine equation. Calcium, Total, S 8.8 8.8 - 10.2 mg/dL 06/15/2023 4:59 PM INTERACTIVE MEDIA DESIGNER DTL Glucose, S 130 70 - 140 mg/dL 06/15/2023 4:59 PM INTERACTIVE MEDIA DESIGNER DTL Blood (Blood, Venous) 06/15/2023 4:06 PM INTERACTIVE MEDIA DESIGNER 06/15/2023 4:42 PM INTERACTIVE MEDIA DESIGNER Sera Hyman M.D., Ph.D. [place] [address], [facility] [address] * Optical Coherence Tomography - Macula/Retina - OU - Both Eyes (06/15/2023 2:26 PM INTERACTIVE MEDIA DESIGNER) Narrative OPHTHALMOLOGY IMAGING EXAM - 06/15/2023 3:45 PM INTERACTIVE MEDIA DESIGNER Right Eye Reliability was good. OCT device used was Spectralis . Left Eye It was a technically difficult scan. OCT device used was Spectralis . Notes FREDY/JH See interpretation in note section Justin Bunch M.D. OPHTH TOMOGRAPHY Performing Organization Address City/[facility]/ZIP Co de Phone Number OPHTHALMOLOGY IMAGING EXAM * Eyes Spectralis OCT-Ophthalmology Image Exam (06/15/2023 12:00 AM INTERACTIVE MEDIA DESIGNER) Narrative IIMS - 06/15/2023 2:28 PM INTERACTIVE MEDIA DESIGNER This order has been created and auto-finalized to support the import of images acquired without order. The clinical documentation to support these images can be found on the encounter that produced images. Provider Not In System IMG NON RAD IMAGI NG PROCEDURES Performing Organization Address [facility] Co de Phone Number [facility] NA * Folate (06/12/2023 10:53 AM INTERACTIVE MEDIA DESIGNER) Folate, S 12.6 >=4.0 mcg/L 06/13/2023 2:09 AM INTERACTIVE MEDIA DESIGNER ECLR Comment: Biotin has been identified by the cotton inspector as a potential interfering substance. Higher concentrations of biotin may be found in multivitamins, hair/nail supplements, and workout supplements. If the result does not match clinical observations, repeat testing after patient refrains from the use of supplements for at least 12 hours. Blood (Blood, Venous) 06/12/2023 10:53 AM INTERACTIVE MEDIA DESIGNER 06/12/2023 9:30 PM INTERACTIVE MEDIA DESIGNER Drew Couch APRNN.Allie., M.S. LAB BLOOD ADD-ON Performing Organization Address [facility] Co de Phone Number [facility] [address] [place] [address], [facility] ECLR [facility] [place] [address] * (ABNORMAL) Vitamin B12 Assay (06/12/2023 10:53 AM INTERACTIVE MEDIA DESIGNER) Vitamin B12 Assay, S 1249(H) 232 - 1245 ng/L 06/13/2023 2:09 AM INTERACTIVE MEDIA DESIGNER ECLR Comment: Biotin has been identified by the cotton inspector as a potential interfering substance. Higher concentrations of biotin may be found in multivitamins, hair/nail supplements, and workout supplements. If the result does not match clinical observations, repeat testing after patient refrains from the use of supplements for at least 12 hours. Blood (Blood, Venous) 06/12/2023 10:53 AM INTERACTIVE MEDIA DESIGNER 06/12/2023 9:30 PM INTERACTIVE MEDIA DESIGNER Mónica Portillo APRN, C.N.P., M.S. LAB BLOOD ADD-ON [facility] [address] [place] [address], [facility] ECLR [facility] [place] [address] [place] [address] * (ABNORMAL) Hemoglobin A1c (03/30/2023 12:21 PM INTERACTIVE MEDIA DESIGNER) Hemoglobin A1c, B 6.8(H) 4.2 - 5.6 % 03/30/2023 12:36 PM INTERACTIVE MEDIA DESIGNER CNFL Comment: Hemoglobin A1c values greater than or equal to 6.5 percent are diagnostic for diabetes mellitus. ??Diagnosis should be confirmed by repeat testing. ??In diabetic patients, HbA1c goals should be discussed with healthcare provider. Blood (Blood, Venous) 03/30/2023 12:21 PM INTERACTIVE MEDIA DESIGNER 03/30/2023 12:23 PM INTERACTIVE MEDIA DESIGNER Mónica Portillo APRN, C.N.P., M.S. 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 [address] [phone] PCP - General Internal Medicine 11/23/17
--- OUTSIDE RECORDS SUMMARY | 2023-09-09 17:41 | XMS_ITS ---
Author Name Unknown Organization [facility] Address [address] [place] [address] Care Team Providers Care Life Skills Worker Name Role Phone Unavailable Unavailable Unavailable Surgery Details Not on file Complications Check Surgery Details section. Procedure Estimated Blood Loss Check Surgery Details section. Procedure Findings Check Surgery Details section. Procedure Specimens Taken Check Surgery Details section.
--- OUTSIDE RECORDS SUMMARY | 2023-09-09 17:41 | XMS_ITS | Encounter Summary ---
Author Name Unknown Organization [facility] Address [address] [place] [address] Care Team Providers Care Project Estimator Name Role Phone Clover Delaney M.D. Primary Care Provider [phone]- [phone] Encounter Details Date Type Department Care Team (Late st Contact Info) Description 09/01/2023 Clinical Communication Department of Community Internal Medicine in [address] [place] [phone] Clover Delaney M.D. [address] [place] [phone] Social History Tobacco Use Types Packs/Day Years Used Date Smoking Tobacco: Former Cigarettes 0 1961 - 12/26/1980 Passive Smoke Exposure: Never Smokeless Tobacco: Never Alcohol Use Standard Drinks/Week Comments Yes 0 (1 standard drink = 0.6 oz pur e alcohol) Maybe one drink per month [facility] Utilities Answer Date Recorded In the past 12 months has e [employer], gas, oil, or water [employer] threatened to shut off services in your [...] How often do you attend chur or taoist services? 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 [address] [place] [phone] Discharge Disposition: Home or Self Care 09/10/2023 1:20 PM CDT Appointment Department of Laboratory Medicine in [place] [address] [place] [address] Sera Casiano M.D., Ph.D. [address] [place] [phone] 09/10/2023 2:30 PM CDT Ancillary Procedure Department of Cardiovascular Diseases in [address] [phone] Clover Delaney M.D. [address] [place] [phone] Discharge Disposition: Home or Self Care 10/01/2023 9:30 AM CDT Comprehensive Visit Department of Cardiovascular Diseases in [address] [phone] Nikko Dey M.D. [address] [place] [phone] Discharge Disposition: Home or Self Care 10/05/2023 1:30 PM CDT Comprehensive Visit Division of Pulmonary Medicine in [place], [place] [address] [place] [phone] Luis Carrion M.B.B.S. [address] [place] [phone] 10/27/2023 2:25 PM CDT Appointment Department of Cardiovascular Diseases in [place], [place] [address] [place] [address] Clover Delaney M.D. [address] [place] [phone] Discharge Disposition: Home or Self Care documented as of this encounter Visit Diagnoses Not on filedocumented in this encounter Additional Health Concerns Assessment Noted Time PHQ-9 Depression Total Score: 4 06/06/19 23 2:04 PM [employer]CTOR [employer] COSMETOLOGY documented as of this encounter Care Teams Project Estimator Relationship Specialty Start Date End Date Clover Delaney M.D. [address] [place] [phone] PCP - General Internal Medicine 11/23/17 documented as of this encounter
--- OUTSIDE RECORDS SUMMARY | 2023-09-09 17:41 | XMS_ITS | Encounter Summary ---
Author Name Unknown Organization [facility] Address [address] [place] [address] Care Team Providers Care Community Service Officer Coordinator Name Role Phone Clover Delaney M.D. 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 [address] [place] [address] [facility] Region Referral ID Status Reason Start Date Expiration Date Visits Re quested Visits Authorized [id number] Closed 08/20/2023 02/18/2025 1 1 Encounter Details Date Type Department Care Team (Latest Contact Info) Description 09/08/2023 2:00 PM CDT Virtual Visit Department of Family Medicine, [employer], in [address] [phone] Clover Delaney M.D. [address] [place] [address] Diabetes Mellitus Type 2 With [...] alcohol) Maybe one drink per month [facility] Utilities Answer Date Recorded In the past 12 months has th e electric, gas, oil, or water company [...] Answer Date Recorded PHQ-2 Score 2 05/28/2023 [facility] - Occupational Stress Questionnaire [...] your living situation today? I have a [facility] place to live 08/28/2023 Education Answer Date Recorded What is the highest level of school you have completed or the highest degree you have received? Professional school degree (e.g., , MAREK, DVM, NACHO) 10/10/2020 Sex and Gender Information Value Date Recorded Sex Assigned at Male 05/13/2021 10:11 AM PEDIATRIC NEUROPSYCHOLOGIST Gender Identity Male 11/02/2017 7:22 PM CDT Sexual Orientation Straight 11/02/2017 7: 22 PM CDT documented as of this encounter Plan of Treatment Upcoming Encounters Date Type Department Care Team (Latest Contact Info) Description 09/10/2023 10:45 AM CDT Clinical Communication Virtual Review in [place], [place] 200 [place] [address] 09/10/2023 1:00 PM CDT Appointment Department of Radiology in [place] [address] [place] [address] Sera Casiano M.D., Ph.D. [address] [place] [phone] Discharge Disposition: Home or Self Care 09/10/2023 1:20 PM CDT Appointment Department of Laboratory Medicine in [place] [address] [place] [phone] Sera Casiano M.D., Ph.D. [address] [place] [phone] 09/10/2023 2:30 PM CDT Ancillary Procedure Department of Cardiovascular Diseases in [address] [phone] Clover Delaney M.D. [address] [place] [phone] Discharge Disposition: Home or Self Care 10/01/2023 9:30 AM CDT Comprehensive Visit Department of Cardiovascular Diseases in [address] [phone] Nikko Dey M.D. [address] [place] [phone] Discharge Disposition: Home or Self Care 10/05/2023 1:30 PM CDT Comprehensive Visit Division of Pulmonary Medicine in [place], [place] [address] [place] [phone] Luis Carrion M.B.BJosé LuisS. [address] [place] [phone] 10/27/2023 2:25 PM CDT Appointment Department of Cardiovascular Diseases in [place], [place] [address] [place] [phone] Clover Delaney M.D. 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 [address] [place] [phone] PCP - General Internal Medicine 11/23/17 documented as of this encounter
--- OUTSIDE RECORDS SUMMARY | 2023-09-09 17:41 | XMS_ITS ---
Author Name Unknown Organization [facility] Address [address] [place] [address] Care Team Providers Care Catalytic Case Operator Name Role Phone Clover Macias M.D. Primary Care Provider [phone]- [phone] Active Problems Problem Noted Date Diagnosed Date [...] Overview: Added automatically from request for surgery [id number] Cancer Colon Transverse Personal History 020 Overview: 03/2018 No evidence of metastatic disease, stable colon, diverticulosis on CT 04/09/2020 ([facility]) Repeat colonoscopy fall [address] Sewell (oncology, [place]), follow up Dr. Sewell 6-12 months with [...] of 03/2020 and determined to be benign ([facility] [place] [facility] records). Obstructive Sleep Apnea Adult 12/07/2015 [...] treatments are documented for this patient in [facility]. Treatments may have been administered in [...] Overview: Added automatically from request for surgery [id number] Hematochezia 11/09/2017 07/01/2018 Overview: Added automatically from request for surgery [id number] Diarrhea 11/09/2017 09/28/2018 Overview: S/P recurrent c diff. Tolerates 1500mg metformin per day. Cancer Colon Family History 01/19/2015 01/06/2020 Chronic Kidney Disease (CKD) , Stage 3b Glomerular Filtration Rate (GFR) 30 To 44 10/08/2009 08/28/2023
--- OUTSIDE RECORDS SUMMARY | 2023-09-09 17:41 | XMS_ITS | Encounter Summary ---
Author Name Unknown Organization [facility] Address [address] [place] [address] Care Team Providers Care Maintenance Of Way Foreman Name Role Phone Clover Delaney M.D. Primary Care Provider [phone]- [phone] Encounter Details Date Type Department Care Team (Late st Contact Info) Description 09/09/2023 Clinical Communication Division of Nephrology and Hypertension in [place], [place] [address] [place] [address] Sera Casiano M.D., Ph.D. [address] [place] [phone] Social History Tobacco Use Types Packs/Day Years Used Date Smoking Tobacco: Former Cigarettes 0 1961 - 12/26/1980 Passive Smoke Exposure: Never Smokeless Tobacco: Never Alcohol Use Standard Drinks/Week Comments Yes 0 (1 standard drink = 0.6 oz pur e alcohol) Maybe one drink per month [facility] Utilities Answer Date Recorded In the past 12 months has e [employer], gas, oil, or water company threatened to [...] PHQ-2 Score 2 05/28/2023 [facility] [place] of Occupat ional Health - Occupational Stress [...] your living situation today? I have a [facility] [facility] [employer] [facility] [employer] place to live 08/28/2023 Education Answer Date Recorded What is the highest level of school you have completed or the highest degree you have received? Professional school degree (e.g., , DDS, DVM, NACHO) 10/10/2020 Sex and Gender Information Value Date Recorded Sex Assigned at Male 05/13/2021 10:11 AM FINGER WAVER Gender Identity Male 11/02/2017 7:22 PM CDT Sexual Orientation Straight 11/02/2017 7: 22 PM CDT documented as of this encounter Miscellaneous Notes * Telephone Encounter - Sera Casiano M.D., Ph.D. - 09/09/2023 2:49 PM CDT I received a call from the infusion center regarding Mr. Patel. He presented for his Aranesp injection at the [facility] and he was found to have ahemoglobin of 6.7. He is very weak and he is in a wheel chair. He does not have chest pain or shortness of breath. I have instructed the nurse to send him to the ED after giving Aranesp today for evaluation.. He will probably benefit from blood transfusion. His electrolytes should be monitored to evaluate if he is need of starting dialysis. Last set of labs are from 08/19 showing acceptable electrolytes and BUN of 72. Jessica Hyman M.D., Ph.D. documented in this encounter Plan of Treatment Upcoming Encounters Date Type Department Care Team (Latest Contact Info) Description 09/10/2023 10:45 AM CDT Clinical Communication Virtual Review in [place], [place] 200 [place] [address] 09/10/2023 1:00 PM CDT Appointment Department of Radiology in [place] [address] [place] [address] Sera Casiano M.D., Ph.D. [address] [place] [phone] Discharge Disposition: Home or Self Care 09/10/2023 1:20 PM CDT Appointment Department of Laboratory Medicine in [place] [address] [place] [address] Sera Casiano M.D., Ph.D. [address] [place] [phone] 09/10/2023 2:30 PM CDT Ancillary Procedure Department of Cardiovascular Diseases in [address] [phone] Clover Delaney M.D. [address] [place] [phone] Discharge Disposition: Home or Self Care 10/01/2023 9:30 AM CDT Comprehensive Visit Department of Cardiovascular Diseases in [place], [place] [address] [place] [phone] Nikko Dey M.D. [address] [place] [phone] Discharge Disposition: Home or Self Care 10/05/2023 1:30 PM CDT Comprehensive Visit Division of Pulmonary Medicine in [place], [place] [address] [place] [address] Luis Carrion M.B.BJosé LuisS. [address] [place] [address] 10/27/2023 2:25 PM CDT Appointment Department of Cardiovascular Diseases in [place], [place] [address] [place] [address] Clover Delaney M.D. [address] [place] [phone] Discharge Disposition: Home or Self Care documented as of this encounter Visit Diagnoses Not on filedocumented in this encounter Additional Health Concerns Assessment Noted Time PHQ-9 Depression Total Score: 4 06/06/19 23 2:04 PM FINGER WAVER documented as of this encounter Care Teams Maintenance Of Way Foreman Relationship Specialty Start Date End Date Clover Delaney M.D. [address] [place] [phone] PCP - General Internal Medicine 11/23/17 documented as of this encounter
--- OUTSIDE RECORDS SUMMARY | 2023-09-09 17:41 | XMS_ITS | Encounter Summary ---
Author Name Unknown Organization [facility] Address [address] [place] [address] Care Team Providers Care Optometrist President/Practice Owner Name Role Phone Clover Delaney M.D. Primary Care Provider [phone]- [phone] Reason for Visit * Reason Comments Med Refill Encounter Details Date Type Department Care Team (Late st Contact Info) Description 09/05/2023 Refill Department of Ophthalmology in [place], [place] [address] [place] [phone] Jon Juarez M.D. [address] [place] [phone] Med Refill Social History Tobacco Use Types Packs/Day Years Used Date Smoking Tobacco: Former Cigarettes 0 1961 - 12/26/1980 Passive Smoke Exposure: Never Smokeless Tobacco: Never Alcohol Use Standard Drinks/Week Comments Yes 0 (1 standard drink = 0.6 oz pur e alcohol) Maybe one drink per month [facility] Utilities Answer Date Recorded In the past 12 months has e [employer], gas, oil, or water [employer] threatened to shut off services in your [...] How often do you attend chur or mormon services? Never 07/28/2022 Do you belong to any clubs o r organizations such as cheondoism groups, unions, fraternal or athletic groups, or [...] Answer Date Recorded PHQ-2 Score 2 05/28/2023 [facility] of Occupat ional Health - Occupational Stress [...] your living situation today? I have a [facility] place to live 08/28/2023 Education Answer Date Recorded What is the highest level of school you have completed or the highest degree you have received? Professional school degree (e.g., , DDS, DVM, NACHO) 10/10/2020 Sex and Gender Information Value Date Recorded Sex Assigned at Male 05/13/2021 10:11 AM TUGBOAT OPERATOR Gender Identity Male 11/02/2017 7:22 PM CDT Sexual Orientation Straight 11/02/2017 7: 22 PM CDT documented as of this encounter Plan of Treatment Upcoming Encounters Date Type Department Care Team (Latest Contact Info) Description 09/10/2023 10:45 AM CDT Clinical Communication Virtual Review in [place], [place] [address] [place] [address] 09/10/2023 1:00 PM CDT Appointment Department of Radiology in [address] [place] [address] Sera Casiano M.D., Ph.D. [address] [place] [phone] Discharge Disposition: Home or Self Care 09/10/2023 1:20 PM CDT Appointment Department of Laboratory Medicine in [place] [address] [place] [address] Sera Casiano M.D., Ph.D. [address] [place] [phone] 09/10/2023 2:30 PM CDT Ancillary Procedure Department of Cardiovascular Diseases in [address] [phone] Clover Delaney M.D. [address] [place] [phone] Discharge Disposition: Home or Self Care 10/01/2023 9:30 AM CDT Comprehensive Visit Department of Cardiovascular Diseases in [address] [phone] Nikko Dey M.D. [address] [place] [phone] Discharge Disposition: Home or Self Care 10/05/2023 1:30 PM CDT Comprehensive Visit Division of Pulmonary Medicine in [place], [place] [address] [place] [phone] Luis Carrion M.B.B.S. [address] [place] [phone] 10/27/2023 2:25 PM CDT Appointment Department of Cardiovascular Diseases in [place], [place] [address] [place] [address] Clover Delaney M.D. [address] [place] [phone] Discharge Disposition: Home or Self Care documented as of this encounter Visit Diagnoses Not on filedocumented in this encounter Additional Health Concerns Assessment Noted Time PHQ-9 Depression Total Score: 4 06/06/19 23 2:04 PM TUGBOAT OPERATOR documented as of this encounter Care Teams Optometrist President/Practice Owner Relationship Specialty Start Date End Date Clover Delaney M.D. [address] [place] [phone] PCP - General Internal Medicine 11/23/17 documented as of this encounter
--- OUTSIDE RECORDS SUMMARY | 2023-09-09 17:41 | XMS_ITS | Referral Summary ---
Author Name Unknown Organization [facility] Address [address] [place] [address] Care Team Providers Care Hot Saw Operator Name Role Phone Clover Macias M.D. Primary Care Provider [phone] Source Comments Patient records contain information from all sites at [facility]. For routine questions regarding patient records, call [phone] during business hours, M-F 8:00 AM - 5:00 PM Central Time. Record requests for emergency care only can be directed to [phone] at any time.[facility] Encounters Date Type Department Care Team Description 09/09/2023 Clinical Communication Division of Nephrology and Hypertension in [place], [place] [address] [place] [address] Sera Casiano M.D., Ph.D. 09/08/2023 2:00 PM CDT Virtual Visit Department of Family Medicine, [facility], in [address] [address] Clover Macias M.D. 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 Med Refill 09/01/2023 Clinical Communication Department of [facility] in [address] [place] [address] Clover Macias M.D. 08/28/2023 Refill Department of [facility] in [address] [place] [address] Clover Macias M.D. Med Refill 08/28/2023 3:30 PM CDT Office Visit Department of [facility] in [address] [place] [address] Clover Macias M.D. Follow Up Exam (Primary [...] Refill Division of Nephrology and Hypertension in [place], [place] [address] [place] [address] Mónica Portillo APRN, C.N.P., M.S. Med Refill 08/25/2023 Clinical Communication Division of Nephrology and Hypertension in [place], [place] [address] [place] [address] Sera Casiano M.D., Ph.D. infusion orders 08/25/2023 Refill Department of Ophthalmology in [place], [place] [address] [place] [address] Jon Juarez M.D. Med Refill 08/22/2023 Nurse Triage Department of [facility] in [address] [place] [address] Savanah Gibson M.S.N., R.N. Hyperglycemia 08/21/2023 Orders Only Division of Endocrinology in [place], [place] [address] [place] [address] Cammy Silva M.D. Diabetes Mellitus Type 2 With Diabetic Neuropathy (HCC) (Primary Dx) 08/21/2023 Refill Department of [facility] in [place] [address] [place] [address] Clover Macias M.D. Med Refill 08/20/2023 3:08 PM CDT - 08/20/2023 11:59 PM CDT Hospital Encounter Department of Radiology in [place] [address] [place] [address] Clover Macias M.D. Atrial Fibrillation Unspecified (HCC); Hypertensive Chronic Kidney Disease With Stage 5 Chronic Kidney Disease Or End Stage Renal Disease, Chronic Kidney Disease Stage 5 (HCC) Discharge Disposition: Home or Self Care 08/20/2023 3:07 PM CDT Hospital Encounter Department of Radiology in [address] [place] [address] Clover Macias M.D. Atrial Fibrillation Unspecified (HCC); Hypertensive Chronic Kidney Disease With Stage 5 Chronic Kidney Disease Or End Stage Renal Disease, Chronic Kidney Disease Stage 5 (HCC) Discharge Disposition: Home or Self Care 08/20/2023 3:00 PM CDT - 08/20/2023 3:06 PM CDT Hospital Encounter Department of Laboratory Medicine in [address] [place] [address] Clover Macias M.D. 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 08/19/2023 Orders Only Department of [facility] in [address] [place] [address] Clover Macias M.D. Atrial Fibrillation Unspecified (HCC) (Primary Dx); Hypertensive Chronic Kidney Disease With Stage 5 Chronic Kidney Disease Or End Stage Renal Disease, Chronic Kidney Disease Stage 5 (HCC) 08/17/2023 Refill Department of [facility] in [address] [place] [address] Clover Macias M.D. Med Refill 08/16/2023 Nurse Triage Department of [facility] in [address] [place] [address] Philomena Raya R.N. Bradycardia; Weakness - Generalized 08/10/2023 Clinical Communication Division of Nephrology and Hypertension in [place], [place] [address] [place] [address] Kanwal Roberts R.N. 08/05/2023 4:00 PM CDT External Outreach Division of Nephrology and Hypertension in [place], [place] [address] [place] [address] Sera Casiano M.D., Ph.D. Chronic Kidney Disease Stage 5 Glomerular Filtration Rate Less Than 15 (HCC) (Primary Dx); Preoperative Exam; Hypertensive Chronic Kidney Disease With Stage 5 Chronic Kidney Disease Or End Stage Renal Disease, Chronic Kidney Disease Stage 5 (HCC) 07/29/2023 Documentation Division of Nephrology and Hypertension in [place], [place] [address] [place] [address] Kanwal Roberts R.N. 07/29/2023 9:49 AM CDT - 07/29/2023 10:51 AM CDT Hospital Encounter Department of Laboratory Medicine and Pathology, [facility] in [place], [place] [address] [place] [phone] Sera Casiano M.D., Ph.D. 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 Sandeep Kuo M.D., Ph.D. Chronic Kidney Disease Stage 5 Glomerular Filtration Rate Less Than 15 (HCC) Discharge Disposition: Home or Self Care 07/29/2023 12:13 PM CDT - 07/29/2023 2:39 PM CDT Hospital Encounter Department of Radiology, [facility] in [place], [place] [address] [place] [phone] Sera Casiano M.D., Ph.D. Chronic Kidney Disease Stage 5 Glomerular Filtration Rate Less Than 15 (HCC) Discharge Disposition: Home or Self Care 07/23/2023 Clinical Communication Division of Nephrology and Hypertension [address] [address] Monica Ferreira R.N., C.M.S.R.N. 07/17/2023 Orders Only Division of Nephrology and Hypertension in [place], [place] [address] [place] [address] Sera Casiano M.D., Ph.D. 07/17/2023 1:00 PM CDT Virtual Visit Division of Nephrology and Hypertension in [place], [place] [address] [place] [address] Sera Casiano M.D., Ph.D. Kanwal Roberts, R.N. Chronic Kidney Disease Stage 5 Glomerular Filtration Rate Less Than 15 (HCC) (Primary Dx) 07/11/2023 Refill Division of Nephrology and Hypertension in [place], [place] [address] [place] [address] Mónica Portillo APRN, C.N.P., M.S. Med Refill 07/10/2023 1:00 PM CDT Comprehensive Visit Division of Nephrology and Hypertension in [place], [place] [address] [place] [address] Sera Casiano M.D., Ph.D. Elana Almonte RDN, LD Chronic Kidney Disease Stage 5 Glomerular Filtration Rate Less Than 15 (HCC) 07/10/2023 2:30 PM CDT Nurse Only Division of Nephrology and Hypertension in [place], [place] [address] [place] [address] Sera Casiano M.D., Ph.D. Aislinn Sharma, R.N. home blood pressure monitor check 07/06/2023 9:06 AM CDT - 07/06/2023 11:59 PM CDT Hospital Encounter Department of Laboratory Medicine in [address] [place] [phone] Sera Casiano M.D., Ph.D. 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 06/29/2023 11:47 AM VARNISH BLENDER - 06/29/2023 11:59 PM VARNISH BLENDER Hospital Encounter Department of Laboratory Medicine and Pathology, [facility] in [place], [place] [address] [place] [phone] Sera Casiano M.D., Ph.D. 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 Cammy Silva M.D. Diabetes Mellitus Type 2 (HCC) (Primary Dx); Hypertension And Chronic Kidney Disease Stage 5 (HCC); Proteinuria; Insufficiency Adrenal Secondary (HCC); Morbid Obesity (HCC) 06/26/2023 3:00 PM VARNISH BLENDER Education Division of Nephrology and Hypertension in [place], [place] [address] [place] [address] Sera Casiano M.D., Ph.D. Sandeep Galicia, R.N. Chronic Kidney Disease Stage 4 Glomerular Filtration Rate 15-29 (HCC) 06/26/2023 4:00 PM VARNISH BLENDER Office Visit Division of Nephrology and Hypertension in [place], [place] [address] [place] [phone] Sera Casiano M.D., Ph.D. Chronic Kidney Disease Stage 5 Glomerular Filtration Rate Less Than 15 (HCC) (Primary Dx); Hyperkalemia; 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 06/26/2023 8:15 AM VARNISH BLENDER Internal E-Consult Division of Pulmonary Medicine in [place], [place] [address] [place] [phone] Louie Aleman M.D. 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 06/16/2023 Orders Only Division of Nephrology and Hypertension in [address] [phone] Sandeep Galicia, R.NJosé Luis Chronic Kidney Disease Stage 4 Glomerular Filtration Rate 15-29 (HCC) (Primary Dx) 06/15/2023 Orders Only Department of Ophthalmology in [place], [place] [address] [place] [phone] Bailey Campo CJosé LuisOCleveland. 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 Chronic Kidney Disease Stage 5 Glomerular Filtration Rate Less Than 15 (HCC) (Primary Dx) 06/15/2023 3:20 PM VARNISH BLENDER - 06/15/2023 11:59 PM VARNISH BLENDER Hospital Encounter Department of Laboratory Medicine and Pathology, [facility] in [place], [place] [address] [place] [phone] Sera Casiano M.D., Ph.D. Chronic Kidney Disease Stage 5 Glomerular Filtration Rate Less Than 15 (HCC) Discharge Disposition: Home or Self Care 06/15/2023 Ancillary Procedure Department of Ophthalmology 06/15/2023 Orders Only Division of Nephrology and Hypertension in [place], [place] [address] [place] [phone] Sera Casiano M.D., Ph.D. Chronic Kidney Disease Stage 5 Glomerular Filtration Rate Less Than 15 (HCC) (Primary Dx) 06/15/2023 1:00 PM VARNISH BLENDER Education Division of Nephrology and Hypertension in [place], [place] [address] [place] [phone] Sera Casiano M.D., Ph.D. Sandeep Galicia, R.N. Chronic Kidney Disease Stage 5 Glomerular Filtration Rate Less Than 15 (HCC) 06/15/2023 2:30 PM VARNISH BLENDER Ancillary Procedure Department of Ophthalmology in [place], [place] [address] [place] [phone] Justin Bunch M.D. 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 Hypertension And [...] Date End Date Status miscellaneous medical supply [facility] [...] 0 Refill(s) 7 Active miscellaneous medical supply [facility] Head Gear for CPAP Machine See Instructions, fax to patient at [phone], 1 each 4 Active MULTIVITAMIN ORAL Daily Multiple Vitamins See Instructions, Take 1 tablet by mouth daily. 4 Active ONETOUCH DELICA LANCETS 33 gauge [facility] 3 9 Active loperamide (IMODIUM A-D) 2 [...] SENSOR EVERY 14 DAYS. 8 each 4 Discontinued(Re order) carvediloL (COREG) 12.5 mg tablet take one tablet by mouth twice a day with meals 180 tablet 4 Discontinued(Re order) Hospital, Clinic, or Other Facility [...] Overview: Added automatically from request for surgery [id number] Cancer Colon Transverse Personal History 020 Overview: 03/2018 No evidence of metastatic disease, stable colon, diverticulosis on CT 04/09/2020 ([facility] CT, [facility] records) Repeat colonoscopy fall [address] Sewell (oncology, [place]), follow up Dr. Sewell 6-12 months with [...] Overview: Added automatically from request for surgery [id number] Hematochezia 11/09/2017 07/01/2018 Overview: Added automatically from request for surgery [id number] Diarrhea 11/09/2017 09/28/2018 Overview: S/P recurrent c [...] e alcohol) Maybe one drink per month [facility] Infrascaleities Answer Date Recorded In the past 12 [...] Answer Date Recorded PHQ-2 Score 2 05/28/2023 [facility] - Occupational Stress Questionnaire Answer [...] your living situation today? I have a [facility] place to live 08/28/2023 Education Answer Date Recorded What is the highest level of school you have completed or the highest degree you have received? Professional school degree (e.g., MD, DDS, DVM, NACHO) 10/10/2020 Sex and Gender Information Value Date Recorded Sex Assigned at Male 05/13/2021 10:11 AM VARNISH BLENDER Gender Identity Male 11/02/2017 7:22 PM CDT Sexual Orientation Straight 11/02/2017 7: 22 PM CDT Last Filed Vital Signs Vital Sign Reading Time Taken Comments Blood Pressure 112/64 08/28/2023 4:16 PM CDT Pulse 52 08/28/2023 4:16 PM CDT Temperature 36.7 ??C (98.1 ??F) 04/07/2023 2:34 PM CS T Respiratory Rate 17 04/07/2023 2:34 PM VARNISH BLENDER Oxygen Saturation 93% 08/28/2023 3:24 PM CDT [...] AM CDT Clinical Communication Virtual Review in [place], [place] [address] [place] [address] 09/10/2023 1:00 PM CDT Appointment Department of Radiology in [place] [address] [place] [phone] Sera Casiano M.D., Ph.D. [address] [place] [phone] Discharge Disposition: Home or Self Care 09/10/2023 1:20 PM CDT Appointment Department of Laboratory Medicine in [address] [place] [address] Sera Casiano M.D., Ph.D. [address] [place] [address] 09/10/2023 2:30 PM CDT Ancillary Procedure Department of Cardiovascular Diseases in [address] [phone] Clover Macias M.D. [address] [place] [phone] Discharge Disposition: Home or Self Care 10/01/2023 9:30 AM CDT Comprehensive Visit Department of Cardiovascular Diseases in [address] [phone] Nikko Dey M.D. [address] [place] [phone] Discharge Disposition: Home or Self Care 10/05/2023 1:30 PM CDT Comprehensive Visit Division of Pulmonary Medicine in [place], [place] [address] [place] [phone] Luis Carrion M.B.B.S. [address] [place] [phone] 10/27/2023 2:25 PM CDT Appointment Department of Cardiovascular Diseases in [place], [place] [address] [place] [phone] Clover Macias M.D. 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 RENAL FUNCTION PANEL, S Routine 06/29/2023 12:11 PM VARNISH BLENDER Hyperkalemia QUANTIFERON-TB GOLD PLUS, B Routine 06/15/2023 4:07 PM VARNISH BLENDER Chronic Kidney Disease Stage 5 Glomerular Filtration Rate Less Than 15 (HCC) BASIC METABOLIC PANEL, S/P Routine 06/15/2023 4:06 PM VARNISH BLENDER Chronic Kidney Disease Stage 5 Glomerular Filtration Rate Less Than 15 (HCC) HEPATITIS B SURFACE ANTIGEN Routine 06/15/2023 4:06 PM VARNISH BLENDER Chronic Kidney Disease Stage 5 Glomerular Filtration Rate Less Than 15 (HCC) HCV AB W/REFLEX TO HCV PCR, S Routine 06/15/2023 4:06 PM VARNISH BLENDER Chronic Kidney Disease Stage 5 Glomerular Filtration Rate Less Than 15 (HCC) HBC TOTAL AB, SERUM Routine 06/15/2023 4 :06 PM VARNISH BLENDER Chronic Kidney Disease Stage 5 Glomerular Filtration Rate Less Than 15 (HCC) HBS ANTIBODY, SERUM Routine 06/15/2023 4 :06 PM VARNISH BLENDER Chronic Kidney Disease Stage 5 Glomerular Filtration Rate Less Than 15 (HCC) OPTICAL COHERENCE TOMOGRAPHY - MACULA/RETINA - OU - BOTH EYES Routine 06/15/2023 2:26 PM VARNISH BLENDER 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) OPHTHALMOLOGY IMAGE EXAM Routine 06/15/2023 12:00 AM VARNISH BLENDER CBC WITH DIFFERENTIAL, B Routine 06/12/2023 10:53 AM VARNISH BLENDER Anemia Of Chronic Renal Disease FOLATE, S Routine 06/12/2023 10:53 AM VARNISH BLENDER Hypertension And Chronic Kidney Disease Stage 5 (HCC) Proteinuria 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 Acute Metabolic Acidosis Hyperphosphatemia Hypocalcemia VITAMIN B12 ASSAY, S Routine 06/12/2023 10:53 AM VARNISH BLENDER Hypertension And Chronic Kidney Disease Stage 5 (HCC) Proteinuria 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 Acute Metabolic Acidosis Hyperphosphatemia Hypocalcemia COLONOSCOPY Routine 04/07/2023 1:48 PM VARNISH BLENDER Cancer Colon Transverse Personal History HEMOGLOBIN A1C, B Routine 03/30/2023 12:21 PM VARNISH BLENDER Hypertension And Chronic Kidney Disease Stage 5 [...] MUSE QTC Interval 414 ms MUSE R [place] -12 degrees MUSE T Wave [place] 95 degrees MUSE 08/28/2023 4:11 PM CDT [...] DIAGNOSTIC IMAG ING PROCEDURES * Thyroid Function [place] (08/20/2023 3:17 PM CDT) TSH, Sensitive 2.7 0.3 - 4.2 mIU/L 08/20/2023 8:07 PM CDT [facility] Blood (Blood, Venous) 08/20/2023 3:17 PM CDT 08/20/2023 7:01 PM CDT Clover Macias M.D. LAB BLOOD ADD-ON - [facility] [address] [place] [address], [facility] in [place] [address] [place] [address] * (ABNORMAL) CBC without Differential (08/20/2023 3:17 [...] M.D. LAB BLOOD ADD-ON Performing Organization Address City/[facility]/ZIP Co de Phone Number [facility] [address] [place] [address], [facility] in [address] [address] * Magnesium (08/20/2023 3:17 PM CDT) Magnesium, P 2.0 1.7 - 2.3 mg/dL 08/20/2023 7:37 PM CDT [facility] Blood (Blood, Venous) 08/20/2023 3:17 PM CDT 08/20/2023 7:00 PM CDT Clover Macias M.D. LAB BLOOD ADD-ON [facility] [address] [place] [address], [place] [address], [facility] in [place] [address] [place] [address] * (ABNORMAL) Comprehensive Metabolic Panel (08/20/2023 3:17 [...] CDT Clover Macias M.D. LAB BLOOD ADD-ON - [facility] [address] [place] [address], [facility] in [place] [address] [place] [address] * US Upper Extremity Bilateral Dialysis Mapping [...] the upper pole of the left kidney ([id number]). Hypertrophic changes in the spine. Mild degenerative [...] Hyman M.D., Ph.D. LAB UR INE ORDERABLES [facility] [place] [address], [facility] [address] [place] [address] * (ABNORMAL) Microscopic Manual (07/29/2023 10:27 AM [...] Hyman M.D., Ph.D. LAB UR INE ORDERABLES [facility] [address] [place] [address] * pH, Urine (07/29/2023 10:27 AM CDT) pH, U 6.2 4.5 - 8.0 07/29/2023 11: 02 AM CDT DTL Urine 07/29/2023 10:2 7 AM CDT 07/29/2023 10:35 AM CDT Sera Hyman M.D., Ph.D. LAB UR INE ORDERABLES Performing Organization Address City/[facility]/ZIP Co de Phone Number [facility] [address] [place] [address] * Osmolality, Urine (07/29/2023 10:27 AM CDT) Osmolality, U 323 150 - 1150 mOsm/kg 07/29/2023 11:02 AM CDT DTL Urine 07/29/2023 10:2 7 AM CDT 07/29/2023 10:35 AM CDT Sera Hyman M.D., Ph.D. LAB UR INE ORDERABLES [facility] [address] [place] [address] * (ABNORMAL) Urinalysis, with Microscopic: Urine, Midstream [...] 07/29/2023 11:44 AM CDT DTL Predicted Range 2563-11352 mg/24 h 07/29/2023 11:44 AM CDT DTL Comment Micro done on <10 mL 07/29/2023 1:01 PM CDT DTL Urine (Urine, Midstream) 07/29/2023 10:27 AM CDT 07/29/2023 10:35 AM CDT Sera Hyman M.D., Ph.D. LAB UR INE ORDERABLES [facility] [address] [place] [address], [facility] [address] [place] [address] * ANCA (Antineutrophil Cytoplasmic Antibodies) Vasculitis Panel (07/29/2023 10:17 AM CDT) Myeloperoxidase Ab, S <0.2 <0.4 (Negative ) U 07/29/2023 4:45 PM CDT [facility] Proteinase 3 Ab (PR3), S <0.2 <0.4 (Negative ) U 07/29/2023 4:45 PM CDT [facility] Blood (Blood, Venous) 07/29/2023 10:17 AM CDT 07/29/2023 2:52 PM CDT Sera Hyman M.D., Ph.D. LAB BL OOD ADD-ON [facility] [address] [place] [address] [facility] [address] [place] [address] * (ABNORMAL) CBC with Differential, Blood (07/29/2023 [...] LAB BL OOD ADD-ON Performing Organization Address City/[facility]/ZIP Co de Phone Number [facility] [address] 200 [place] [address] * CRP (C-Reactive Protein) (07/29/2023 10:17 AM CDT) C-Reactive Protein (CRP), S <3.0 <5.0 mg/L 07/29/2023 12:32 PM CDT DTL Blood (Blood, Venous) 07/29/2023 10:17 AM CDT 07/29/2023 10:55 AM CDT Sera Hyman M.D., Ph.D. LAB BL OOD ADD-ON Performing Organization Address City/[facility] Co de Phone Number [facility] [address] 200 [place] [address] * (ABNORMAL) Uric Acid (07/29/2023 10:17 AM CDT) Only the most recent of2 resultswithin the time period is included. Uric Acid, S 11.2(H) 3.7 - 8.0 mg/dL 07/29/2023 12:32 PM CDT DTL Blood (Blood, Venous) 07/29/2023 10:17 AM CDT 07/29/2023 10:55 AM CDT Sera Hyman M.D., Ph.D. LAB BL OOD ADD-ON [facility] 200 [place] [address], [facility] 200 [place] [address] * Phosphorus Inorganic (07/29/2023 10:17 AM CDT) Phosphorus (Inorganic), S 4.5 2.5 - 4.5 mg/dL 07/29/2023 12:32 PM CDT DTL Blood (Blood, Venous) 07/29/2023 10:17 AM CDT 07/29/2023 10:55 AM CDT Sera Hyman M.D., Ph.D. LAB BL OOD ADD-ON Performing Organization Address City/[facility]/ZIP Co de Phone Number [facility] 200 [place] [address], [facility] 200 [place] [address] * (ABNORMAL) Glucose, Fasting (07/29/2023 10:17 AM CDT) Pathologist [facility] Glucose, P 256(H) 70 - 100 mg/dL 07/29/2023 11:15 AM CDT DTL Last Intake 16 hr 07/29/2023 10:52 AM CDT DTL Blood (Blood, Venous) 07/29/2023 10:17 AM CDT 07/29/2023 10:52 AM CDT Sera Hyman M.D., Ph.D. LAB BL OOD NON ADD-ON [facility] 200 [place] [address], [facility] 200 [place] [address] * Pulmonary Function Tests (07/29/2023 9:02 AM CDT) FVC 2.15 L 07/29/2023 10:32 AM CDT [facility] FEV1 1.56 L 07/29/2023 10:32 AM CDT [facility] FEV1/FVC 72.56 % 07/29/2023 10:32 AM CDT [facility] FHE27-21% 1.03 L/s 07/29/2023 10:32 AM CDT [facility] PEF PRE 5.91 L/s 07/29/2023 10:32 AM CDT [facility] PIF PRE 3.35 L/s 07/29/2023 10:32 AM CDT [facility] FEF 50 % FIF 50 PRE 54.00 % 07/29/2023 10:32 AM CDT [facility] FET PRE 9.49 sec 07/29/2023 10:32 AM CDT [facility] DLCO 10.65 ml/(min*mm Hg) 07/29/2023 10:32 AM CDT [facility] DLCOc 14.91 ml/(min*mm Hg) 07/29/2023 10:32 AM CDT [facility] HB 7.40 g(Hb)/dL 07/29/2023 10:32 AM CDT [facility] VA 4.05 L 07/29/2023 10:32 AM CDT [facility] PulseRest 50.00 1/min 07/29/2023 10:32 AM CDT [facility] TLC 4.43 L 07/29/2023 10:32 AM CDT [facility] FRCPLETH PROVBASE 2.72 L 07/29/2023 10:32 AM CDT [facility] RV 1.96 L 07/29/2023 10:32 AM CDT [facility] RV % TLC PRE 44.12 % 07/29/2023 10:32 AM CDT [facility] 07/29/2023 9:02 AM CDT Impressions [facility] - 07/29/2023 10:32 AM CDT Abnormal [...] Sera Hyman M.D., Ph.D. PFT OR DERABLES [facility] NA * (ABNORMAL) Renal Function Panel [...] Hyman M.D., Ph.D. LAB BL OOD ADD-ON - [facility] [address] [place] [address], [facility] RDW[facility] [place] [address] [place] [phone] * (ABNORMAL) Cystatin C with Estimated GFR (07/06/2023 9:22 AM CDT) Pathologist [facility] eGFR by Cystatin C 9(L) >60 mL/min/BSA [...] Hyman M.D., Ph.D. LAB BL OOD ADD-ON [facility] 200 [place] [address], [place] DTL [facility] 200 [place] [address] * (ABNORMAL) Iron and Total Iron-Binding Capacity [...] Hyman M.D., Ph.D. LAB BL OOD ADD-ON [facility] [address] [place] [address], [facility] in [address] [phone] * (ABNORMAL) Albumin, Random, Urine (07/06/2023 9:22 AM CDT) Pathologist [facility] Microalbumin 2309.6 mg/L 07/06/2023 1:30 PM CDT [facility] Creatinine 69 mg/dL 07/06/2023 12:51 PM CDT [facility] Albumin/Creatinin e Ratio 3347(H) <17 mg/g 07/06/2023 1:30 PM CDT [facility] Urine (Urine, Voided) 07/06/2023 9:22 AM CDT 07/06/2023 11:59 AM CDT Sera Hyman M.D., Ph.D. LAB UR INE ORDERABLES Performing Organization Address City/[facility]/ZIP Co de Phone Number [facility] [address] [place] [address], [facility] in [address] [address] * (ABNORMAL) Protein/Creatinine Ratio, Random, Urine (07/06/2023 [...] Hyman M.D., Ph.D. LAB UR INE ORDERABLES - [facility] [address] [place] [address], [facility] in [address] [address] * (ABNORMAL) Ferritin (07/06/2023 9:22 AM CDT) Only the most recent of2 resultswithin the time period is included. Ferritin, S 457(H) 31 - 409 mcg/L 07/06/2023 12:57 PM CDT [facility] Comment: Biotin has been identified by the ordering machine operator as a potential interfering substance. Higher concentrations of biotin may be found in multivitamins, hair/nail supplements, and workout supplements. If the result does not match clinical observations, repeat testing after patient refrains from the use of supplements for at least 12 hours. Blood (Blood, Venous) 07/06/2023 9:22 AM CDT 07/06/2023 11:51 AM CDT Sera Hyman M.D., Ph.D. LAB BL OOD ADD-ON - [place] [address] [place] [address], [facility] [place] [address] [address] * QuantiFERON-Tb Gold Plus, Blood (06/15/2023 4:07 PM VARNISH BLENDER) [facility] QuantiFERON-TB Gold Plus Result Negative Negative 06/16/2023 12:08 PM VARNISH BLENDER [facility] Comment: No interferon-gamma response to M. [...] Nil Result 0.02 IU/mL 06/16/2023 12:08 PM VARNISH BLENDER [facility] TB2 Ag minus Nil Result 0.01 IU/mL 06/16/2023 12:08 PM VARNISH BLENDER [facility] Mitogen minus Nil Result 3.42 IU/mL 06/16/2023 12:08 PM VARNISH BLENDER [facility] Nil Result 0.04 IU/mL 06/16/2023 12:08 PM VARNISH BLENDER [facility] Blood (Blood, Venous) 06/15/2023 4:07 PM VARNISH BLENDER 06/15/2023 5:59 PM VARNISH BLENDER Narrative [facility] - 06/16/2023 12:08 PM VARNISH BLENDER Specimen Information: Specimen ID: [id number] Specimen Type: Blood Specimen Collection Start Date: 06/15/2023 ??4:07 PM Specimen Received Date: 06/15/2023 ??5:59 PM Specimen ID: [id number] Specimen Type: Blood Specimen Collection Start Date: 06/15/2023 ??4:07 PM Specimen Received Date: 06/15/2023 ??5:59 PM Specimen ID: [id number] Specimen Type: Blood Specimen Collection Start Date: 06/15/2023 ??4:07 PM Specimen Received Date: 06/15/2023 ??5:59 PM Specimen ID: [id number] Specimen Type: Blood Specimen Collection Start Date: 06/15/2023 ??4:07 PM Specimen Received Date: 06/15/2023 ??5:59 PM Sera Hyman M.D., Ph.D. LAB [facility] BLOOD ORDERABLES Performing Organization Address [facility] Co de Phone Number [facility] [address] [place], [place] [address] [place] [address] [place] [address] * HCV Ab w/Reflex to HCV PCR, Serum (06/15/2023 4:06 PM VARNISH BLENDER) [facility] HCV Ab, S Negative Negative 06/15/2023 10:21 PM VARNISH BLENDER [facility] Comment:Ihlish-az-nsptlz rat io is <1.00. Blood (Blood, Venous) 06/15/2023 4:06 PM VARNISH BLENDER 06/15/2023 8:15 PM VARNISH BLENDER Sera Hyman M.D., Ph.D. LAB [facility] BLOOD ORDERABLES Performing Organization Address [facility] Co de Phone Number [facility] [address] [place] [address] [facility] [address] [place] [address] * HBc Total Ab, Serum (06/15/2023 4:06 PM VARNISH BLENDER) Pathologist [facility] HBc Total Ab, S Negative Negative 06/15/2023 10:17 PM VARNISH BLENDER [facility] Blood (Blood, Venous) 06/15/2023 4:06 PM VARNISH BLENDER 06/15/2023 8:15 PM VARNISH BLENDER Sera Hyman M.D., Ph.D. LAB [facility] - BLOOD ORDERABLES [facility] [address] [place] [address] [facility] [address] [place] [address] * HBs Antibody, Serum (06/15/2023 4:06 PM VARNISH BLENDER) HBs Antibody, S Negative 06/15/2023 10:18 PM VARNISH BLENDER [facility] Comment: Patient is presumed to be not immune to infection with HBV. ----REFERENCE VALUE---- Unvaccinated: Negative Vaccinated: Positive HBs Antibody, Quantitative, S <5.0 mIU/mL 06/15/2023 10:18 PM VARNISH BLENDER [facility] Comment: ----REFERENCE VALUE---- Unvaccinated: <5.0 Vaccinated: >=12.0 Blood (Blood, Venous) 06/15/2023 4:06 PM VARNISH BLENDER 06/15/2023 8:15 PM VARNISH BLENDER Sera Hyman M.D., Ph.D. LAB [facility] - BLOOD ORDERABLES Performing Organization Address City/[facility] Co de Phone Number [facility] [address] [place] [address] [facility] [address] [place] [address] * Hepatitis B Surface Antigen (06/15/2023 4:06 PM VARNISH BLENDER) HBs Antigen, S Negative Negative 06/15/2023 10:03 PM VARNISH BLENDER [facility] Blood (Blood, Venous) 06/15/2023 4:06 PM VARNISH BLENDER 06/15/2023 8:15 PM VARNISH BLENDER Sera Hyman M.D., Ph.D. LAB [facility] - BLOOD ORDERABLES [facility] [address] [place] [address] [facility] [address] [place] [address] * (ABNORMAL) Basic Metabolic Panel (06/15/2023 4:06 PM VARNISH BLENDER) Potassium, S 5.6(H) 3.6 - 5.2 mmol/L 06/15/2023 4:59 PM VARNISH BLENDER DTL Sodium, S 142 135 - 145 mmol/L 06/15/2023 4:59 PM VARNISH BLENDER DTL Chloride, S 105 98 - 107 mmol/L 06/15/2023 4:59 PM VARNISH BLENDER DTL Bicarbonate, S 23 22 - 29 mmol/L 06/15/2023 4:59 PM VARNISH BLENDER DTL Anion Gap 14 7 - 15 06/15/2023 4:59 PM VARNISH BLENDER DTL BUN (Blood Urea Nitrogen), S 68(H) 8 - 24 mg/dL 06/15/2023 4:59 PM VARNISH BLENDER DTL Creatinine 4.61(H) 0.74 - 1.35 mg/dL 06/15/2023 4:59 PM VARNISH BLENDER DTL Estimated GFR (eGFR) <15(L) >=60 mL/min/BSA 06/15/2023 4:59 PM VARNISH BLENDER DTL Comment: Estimated GFR calculated using the 2020 CKD_EPI creatinine equation. Calcium, Total, S 8.8 8.8 - 10.2 mg/dL 06/15/2023 4:59 PM VARNISH BLENDER DTL Glucose, S 130 70 - 140 mg/dL 06/15/2023 4:59 PM VARNISH BLENDER DTL Blood (Blood, Venous) 06/15/2023 4:06 PM VARNISH BLENDER 06/15/2023 4:42 PM VARNISH BLENDER Sera Hyman M.D., Ph.D. LAB BL OOD ADD-ON [facility] [address] [place] [address], [place] DTL [facility] [address] [place] [address] * Optical Coherence Tomography - Macula/Retina - OU - Both Eyes (06/15/2023 2:26 PM VARNISH BLENDER) Narrative OPHTHALMOLOGY IMAGING EXAM - 06/15/2023 3:45 PM VARNISH BLENDER Right Eye Reliability was good. OCT device used was Spectralis . Left Eye It was a technically difficult scan. OCT device used was Spectralis . Notes FREDY/JH See interpretation in note section Justin Bunch M.D. OPHTH TOMOGRAPHY Performing Organization Address [facility] Co de Phone Number OPHTHALMOLOGY IMAGING EXAM * Eyes Spectralis OCT-Ophthalmology Image Exam (06/15/2023 12:00 AM VARNISH BLENDER) Narrative IIMA - 06/15/2023 2:28 PM VARNISH BLENDER This order has been created and auto-finalized to support the import of images acquired without order. The clinical documentation to support these images can be found on the encounter that produced images. Provider Not In System IMG NON RAD IMAGI NG PROCEDURES Performing Organization Address [facility] Co de Phone Number [facility] NA * Folate (06/12/2023 10:53 AM VARNISH BLENDER) Folate, S 12.6 >=4.0 mcg/L 06/13/2023 2:09 AM VARNISH BLENDER ECLR Comment: Biotin has been identified by the ordering machine operator as a potential interfering substance. Higher concentrations of biotin may be found in multivitamins, hair/nail supplements, and workout supplements. If the result does not match clinical observations, repeat testing after patient refrains from the use of supplements for at least 12 hours. Blood (Blood, Venous) 06/12/2023 10:53 AM VARNISH BLENDER 06/12/2023 9:30 PM VARNISH BLENDER Mónica Portillo APRN, C.N.P., M.S. LAB BLOOD ADD-ON Performing Organization Address [facility] Co de Phone Number - [facility] [address] [place] [address], [facility] ECLR [facility] in [address] [address] * (ABNORMAL) Vitamin B12 Assay (06/12/2023 10:53 AM VARNISH BLENDER) Vitamin B12 Assay, S 1249(H) 232 - 1245 ng/L 06/13/2023 2:09 AM VARNISH BLENDER ECL[facility] Comment: Biotin has been identified by the ordering machine operator as a potential interfering substance. Higher concentrations of biotin may be found in multivitamins, hair/nail supplements, and workout supplements. If the result does not match clinical observations, repeat testing after patient refrains from the use of supplements for at least 12 hours. Blood (Blood, Venous) 06/12/2023 10:53 AM VARNISH BLENDER 06/12/2023 9:30 PM VARNISH BLENDER Mónica Portillo APRN, C.N.P., M.S. LAB BLOOD ADD-ON [facility] [address] [place] [address], [facility] ECLR [facility] [place] [address] * (ABNORMAL) Hemoglobin A1c (03/30/2023 12:21 PM VARNISH BLENDER) Hemoglobin A1c, B 6.8(H) 4.2 - 5.6 % 03/30/2023 12:36 PM VARNISH BLENDER CNFL Comment: Hemoglobin A1c values greater than or equal to 6.5 percent are diagnostic for diabetes mellitus. ??Diagnosis should be confirmed by repeat testing. ??In diabetic patients, HbA1c goals should be discussed with healthcare provider. Blood (Blood, Venous) 03/30/2023 12:21 PM VARNISH BLENDER 03/30/2023 12:23 PM VARNISH BLENDER Drew Couch APRNNTaylor., M.S. LAB BLOOD ADD-ON [facility] [address] [place] [address], [facility] CNFL [facility] in [address] [address] * US Aorta AAA Screening (07/22/2017 7:39 [...] Advance Directives For more information, please contact: [phone] Documents on File Type Date Recorded Patient Oracle Iam Consultant Expl anation Advance Directives 12/22/2017 11:40 AM [facility] Care Directive * Full Code (Latest Code [...] First Alternate Health Care Agent Care Teams Hot Saw Operator Relationship Specialty Start Date End Date Clover Macias M.D. [address] [place] [phone] PCP - General Internal Medicine 11/23/17
--- OUTSIDE RECORDS SUMMARY | 2023-09-09 17:42 | XMS_ITS | Encounter Summary ---
Author Name Unknown Organization [facility] Address [address] [place] [address] Care Team Providers Care Balance Assembler Name Role Phone Clover Delaney M.D. 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 [address] [place] [address] [facility] Region Referral ID Status Reason Start Date Expiration Date Visits Re quested Visits Authorized [id number] Closed 08/20/2023 02/18/2025 1 1 Encounter Details Date Type Department Care Team (Late st Contact Info) Description 08/20/2023 Orders Only [facility] [address] [place] [phone] Barbara Diane, Pharm.D., R.Ph., [facility] [address] [place] [address] Diabetes Mellitus Type 2 With [...] How often do you attend chur or holiness services? Never 07/28/2022 Do you belong to [...] [facility] - [...] Assigned at Male 05/13/2021 10:11 AM CELLULAR TOWER CLIMBER Gender Identity Male 11/02/2017 7:22 PM CDT Sexual Orientation Straight 11/02/2017 7: 22 PM CDT documented as of this encounter Plan of Treatment Upcoming Encounters Date Type Department Care Team (Latest Contact Info) Description 09/10/2023 10:45 AM CDT Clinical Communication Virtual Review in [place], [place] 200 [place] [address] 09/10/2023 1:00 PM CDT Appointment Department of Radiology in [address] [place] [phone] Sera Casiano M.D., Ph.D. [address] [place] [phone] Discharge Disposition: Home or Self Care 09/10/2023 1:20 PM CDT Appointment Department of Laboratory Medicine in [place] [address] [place] [address] Sera Casiano M.D., Ph.D. [address] [place] [phone] 09/10/2023 2:30 PM CDT Ancillary Procedure Department of Cardiovascular Diseases in [address] [phone] Clover Delaney M.D. [address] [place] [phone] Discharge Disposition: Home or Self Care 10/01/2023 9:30 AM CDT Comprehensive Visit Department of Cardiovascular Diseases in [place], [place] [address] [place] [phone] Nikko Dey M.D. [address] [place] [phone] Discharge Disposition: Home or Self Care 10/05/2023 1:30 PM CDT Comprehensive Visit Division of Pulmonary Medicine in [place], [place] [address] [place] [address] Luis Carrion M.B.BJosé LuisS. [address] [place] [phone] 10/27/2023 2:25 PM CDT Appointment Department of Cardiovascular Diseases in [place], [place] [address] [place] [address] Clover Delaney M.D. [address] [place] [phone] Discharge Disposition: Home or Self Care Scheduled [...] Total Score: 4 06/06/19 23 2:04 PM CELLULAR TOWER CLIMBER documented as of this encounter Care Teams Balance Assembler Relationship Specialty Start Date End Date Clover Delaney M.D. [address] [place] [phone] PCP - General Internal Medicine 11/23/17 documented as of this encounter
--- OUTSIDE RECORDS SUMMARY | 2023-09-09 17:42 | XMS_ITS | Encounter Summary ---
Author Name Unknown Organization [facility] Address [address] [place] [address] Care Team Providers Care Dungeon Master Name Role Phone Clover Delaney M.D. Primary Care Provider [phone]- [phone] Reason for Visit * Reason Comments Med Refill Encounter Details Date Type Department Care Team (Late st Contact Info) Description 08/28/2023 Refill Department of Community Internal Medicine in [address] [place] [phone] Clover Delaney M.D. [address] [place] [phone] Med Refill Social History Tobacco Use Types Packs/Day Years Used Date Smoking Tobacco: Former Cigarettes 0 1961 - 12/26/1980 Passive Smoke Exposure: Never Smokeless Tobacco: Never Alcohol Use Standard Drinks/Week Comments Yes 0 (1 standard drink = 0.6 oz pur e alcohol) Maybe one drink per month [facility] Utilities Answer Date Recorded In the past 12 months has e Rat[employer], gas, oil, or water [employer] threatened to shut off services in your [...] Answer Date Recorded PHQ-2 Score 2 05/28/2023 [facility] of Occupat ional Health - Occupational Stress [...] your living situation today? I have a [facility] place to live 08/28/2023 Education Answer Date Recorded What is the highest level of school you have completed or the highest degree you have received? Professional school degree (e.g., MD, DDS, DVM, NACHO) 10/10/2020 Sex and Gender Information Value Date Recorded Sex Assigned at Male 05/13/2021 10:11 AM ELEMENTARY SCHOOL LIBRARIAN Gender Identity Male 11/02/2017 7:22 PM [...] patient. Per EMR, Rx was faxed to [facility] on 08-18-23 for 8 sensors. Primary Provider: Clover Delaney M.D. Requested Prescriptions Pending Prescriptions Disp Refills flash glucose sensor (FreeStyle Brionna 2 Sensor) kit 8 each 0 documented in this encounter Plan of Treatment Upcoming Encounters Date Type Department Care Team (Latest Contact Info) Description 09/10/2023 10:45 AM CDT Clinical Communication Virtual Review in [place], [place] 200 [place] [phone] 09/10/2023 1:00 PM CDT Appointment Department of Radiology in [address] [place] [address] Sera Casiano M.D., Ph.D. [address] [place] [phone] Discharge Disposition: Home or Self Care 09/10/2023 1:20 PM CDT Appointment Department of Laboratory Medicine in [address] [place] [phone] Sera Casiano M.D., Ph.D. [address] [place] [phone] 09/10/2023 2:30 PM CDT Ancillary Procedure Department of Cardiovascular Diseases in [address] [phone] Clover Delaney M.D. [address] [place] [phone] Discharge Disposition: Home or Self Care 10/01/2023 9:30 AM CDT Comprehensive Visit Department of Cardiovascular Diseases in [address] [place] [phone] Nikko Dey M.D. [address] [place] [phone] Discharge Disposition: Home or Self Care 10/05/2023 1:30 PM CDT Comprehensive Visit Division of Pulmonary Medicine in [place], [place] [address] [place] [address] Luis Carrion M.B.BJosé LuisS. [address] [place] [address] 10/27/2023 2:25 PM CDT Appointment Department of Cardiovascular Diseases in [place], [place] [address] [place] [address] Clover Delaney M.D. 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 [address] [place] [phone] PCP - General Internal Medicine 11/23/17 documented as of this encounter
--- OUTSIDE RECORDS SUMMARY | 2023-09-09 17:42 | XMS_ITS | Encounter Summary ---
Author Name Unknown Organization [facility] Address [address] [place] [address] Care Team Providers Care Rack Loader Name Role Phone Clover Delaney M.D. Primary Care Provider +1- [phone] Reason for Visit * Reason Onset Date Comments Hyperglycemia 08/22/2023 Encounter Details Date Type Department Care Team (Late st Contact Info) Description 08/22/2023 Nurse Triage Department of Community Internal Medicine in [address] [place] [phone] Savanah Gibson, M.S.N., R.N. Hyperglycemia Social History [...] Recorded PHQ-2 Score 2 05/28/2023 [facility] of Occupat ional Health - Occupational Stress [...] mmol/L) Protocols used: Diabetes - High Blood Fwait-[id number] Care Advice Patient/Caregiver understands and will follow care advice?: Yes, able to teach back Diabetes - High Blood [id number] Savanah Gibson M.S.N., R.N. Sat Aug 22, 2023 11:28 AM Care Advice CALL PCP NOW: * You need to discuss this with your doctor (or ASSEMBLER PING PONG TABLE/PA). * I'll page the on-call provider now. If you haven't heard from the provider (or me) within 30 minutes, call again. ALTERNATE DISPOSITION - CALL YOUR TOP DISTRIBUTION EXECUTIVE NOW: * If you have a medicaid specialist (doctor, ASSEMBLER PING PONG TABLE, PA), call the specialist now. CALL BACK IF: * Vomiting occurs * Rapid breathing occurs * You become worse documented in this encounter Plan of Treatment Upcoming Encounters Date Type Department Care Team (Latest Contact Info) Description 09/10/2023 10:45 AM CDT Clinical Communication Virtual Review in [place], [place] 200 [place] [address] 09/10/2023 1:00 PM CDT Appointment Department of Radiology in [address] [place] [address] Sera Casiano M.D., Ph.D. [address] [place] [phone] Discharge Disposition: Home or Self Care 09/10/2023 1:20 PM CDT Appointment Department of Laboratory Medicine in [address] [place] [address] Sera Casiano M.D., Ph.D. [address] [place] [phone] 09/10/2023 2:30 PM CDT Ancillary Procedure Department of Cardiovascular Diseases in [address] [phone] Clover Delaney M.D. [address] [place] [phone] Discharge Disposition: Home or Self Care 10/01/2023 9:30 AM CDT Comprehensive Visit Department of Cardiovascular Diseases in [address] [phone] Nikko Dey M.D. 701 [place] [phone] Discharge Disposition: Home or Self Care 10/05/2023 1:30 PM CDT Comprehensive Visit Division of Pulmonary Medicine in [place], [place] [address] [place] [phone] Luis Carrion M.B.B.S. [address] [place] [phone] 10/27/2023 2:25 PM CDT Appointment Department of Cardiovascular Diseases in [place], [place] [address] [place] [phone] Clover Delaney M.D. [address] [place] [phone] Discharge Disposition: Home or Self Care documented as of this encounter Visit Diagnoses Not on filedocumented in this encounter Additional Health Concerns Assessment Noted Time PHQ-9 Depression Total Score: 4 06/06/19 23 2:04 PM BEAUTY ADVISOR documented as of this encounter Care Teams Rack Loader Relationship Specialty Start Date End Date Clover Delaney M.D. [address] [place] [phone] PCP - General Internal Medicine 11/23/17 documented as of this encounter
--- OUTSIDE RECORDS SUMMARY | 2023-09-09 17:42 | XMS_ITS | Encounter Summary ---
Author Name Unknown Organization [facility] Address [address] [place] [address] Care Team Providers Care Extension Course Counselor Name Role Phone Clover Delaney M.D. Primary Care Provider +1- [phone] Reason for Visit * Reason Comments Med Refill Encounter Details Date Type Department Care Team (Late st Contact Info) Description 08/25/2023 Refill Department of Ophthalmology in [place], [place] [address] [place] [phone] Jon Juarez M.D. [address] [place] [phone] Med Refill Social History Tobacco Use Types [...] Answer Date Recorded PHQ-2 Score 2 05/28/2023 [facility] of Occupat [...] Sex Assigned at Male 05/13/2021 10:11 AM MEAT MARKET MANAGER Gender Identity Male 11/02/2017 7:22 PM CDT Sexual Orientation Straight 11/02/2017 7: 22 PM CDT documented as of this encounter Plan of Treatment Upcoming Encounters Date Type Department Care Team (Latest Contact Info) Description 09/10/2023 10:45 AM CDT Clinical Communication Virtual Review in [place], [place] 200 [place] [address] 09/10/2023 1:00 PM CDT Appointment Department of Radiology in [place] [address] [place] [address] Sera Casiano M.D., Ph.D. [address] [place] [phone] Discharge Disposition: Home or Self Care 09/10/2023 1:20 PM CDT Appointment Department of Laboratory Medicine in [place] [address] [place] [phone] Sera Casiano M.D., Ph.D. [address] [place] [phone] 09/10/2023 2:30 PM CDT Ancillary Procedure Department of Cardiovascular Diseases in [address] [phone] Clover Delaney M.D. [address] [place] [phone] Discharge Disposition: Home or Self Care 10/01/2023 9:30 AM CDT Comprehensive Visit Department of Cardiovascular Diseases in [address] [phone] Nikko Dey M.D. [address] [place] [phone] Discharge Disposition: Home or Self Care 10/05/2023 1:30 PM CDT Comprehensive Visit Division of Pulmonary Medicine in [place], [place] [address] [place] [phone] Luis Carrion M.B.B.S. [address] [place] [address] 10/27/2023 2:25 PM CDT Appointment Department of Cardiovascular Diseases in [place], [place] [address] [place] [address] Clover Delaney M.D. 701 [place] [phone] Discharge Disposition: Home or Self Care documented as of this encounter Visit Diagnoses Not on filedocumented in this encounter Additional Health Concerns Assessment Noted Time PHQ-9 Depression Total Score: 4 06/06/19 23 2:04 PM MEAT MARKET MANAGER documented as of this encounter Care Teams Extension Course Counselor Relationship Specialty Start Date End Date Clover Delaney M.D. 701 [place] [phone] PCP - General Internal Medicine 11/23/17 documented as of this encounter
--- OUTSIDE RECORDS SUMMARY | 2023-09-09 17:42 | XMS_ITS | Encounter Summary ---
Author Name Unknown Organization [facility] Address [address] [place] [address] Care Team Providers Care Command And Control Name Role Phone Clover Delaney M.D. Primary Care Provider [phone]- [phone] Reason for Referral * Outpatient (Routine) - Closed Specialty Diagnoses / Procedures Referred By Yenny hunter Referred To Contact Diagnoses Atrial Fibrillation Unspecified (HCC) Hypertensive Chronic Kidney Disease With Stage 5 Chronic Kidney Disease Or End Stage Renal Disease, Chronic Kidney Disease Stage 5 (HCC) Procedures ECG 12 Lead Clover Delaney M.D. [address] [place] [address] [facility] Region Referral ID Status Reason Start Date Expiration Date Visits Re quested Visits Authorized [id number] Closed 08/19/2023 08/18/2024 1 1 Reason for Visit * Outpatient (Routine) - Closed Specialty Diagnoses / Procedures Referred By Yenny hunter Referred To Contact Diagnoses Atrial Fibrillation Unspecified (HCC) Hypertensive Chronic Kidney Disease With Stage 5 Chronic Kidney Disease Or End Stage Renal Disease, Chronic Kidney Disease Stage 5 (HCC) Procedures ECG 12 Lead Clover Delaney M.D. [address] [place] [address] [facility] Region Referral ID Status Reason Start Date Expiration Date Visits Re quested Visits Authorized [id number] Closed 08/19/2023 08/18/2024 1 1 Encounter Details Date Type Department Care Team (Latest Contact Info) Description 08/20/2023 3:07 PM CDT Hospital Encounter Department of Radiology in [place], [place] [address] [place] [phone] Clover Delaney M.D. [address] [place] [address] Atrial Fibrillation Unspecified (HCC); Hypertensive [...] week 07/28/2022 How often do you attend [facility] or oriental orthodox services? 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 miscellaneous medical supply [facility] CPAP Supplies See Instructions, CPAP machine, mask 1 ea x 4 refills, headgear 1 ea x 2 refills, tubing 1 ea x 4 refills, filters 2 ea per month, tub 1 ea x 2 refills, mask seal 1 ea x 2 refills DX G47.33, length of need 99, 1 each, 0 Refill(s) 10/20/2016 miscellaneous medical supply [facility] Head Gear for CPAP Machine See Instructions, fax to patient at [phone], 1 each 01/17/2014 MULTIVITAMIN ORAL Daily Multiple Vitamins See Instructions, Take 1 tablet by mouth daily. 07/23/2013 ONETOUCH DELICA LANCETS 33 gauge [facility] 3 08/02/2018 OneTouch Ultra Test StripsIndications:Diabet es Mellitus Type 2 (HCC) Use to test once daily. 100 strip 3 06/03/2023 prednisoLONE acetate (PRED FORTE) 1 % ophthalmic suspension Instill 1 drop in left eye once daily 5 mL 11/06/2022 predniSONE (DELTASONE) 5 mg tablet TAKE [...] day. 180 tablet 3 04/07/2023 tirzepatide (Mounjaro) 7.5 mg/0.5 mL pen injector injectionIndications:Mor bid Obesity (HCC) Inject 0.5 mL (7.5 mg total) under the skin every 7 (seven) days for 4 doses. 2 mL 08/12/2023 UltiCare Pen Needle 31 gauge x 1/4 needleIndications:Diabet es Mellitus Type 2 With Diabetic Neuropathy Hyperglycemic (HCC) Use to inject insulin daily 100 each 3 03/31/2022 prednisoLONE acetate (PRED FORTE) 1 % ophthalmic suspension place 1 drop into the left eye once daily. 5 mL 11/06/2022 tirzepatide (Mounjaro) 10 mg/0.5 mL pen injector injectionIndications:Mor bid Obesity (HCC) Inject 0.5 mL (10 mg total) under the skin every 7 (seven) days. 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 8 each 08/18/2023 08/28/2023 prednisoLONE acetate (PRED FORTE) 1 % ophthalmic suspension place 1 drop into the left eye once daily. 5 mL 02/05/2023 09/07/2023 torsemide (DEMADEX) 20 mg tablet Take 3 tablets (60 mg total) by mouth daily. 270 tablet 3 08/05/2023 08/28/2023 documented as of this encounter Plan of Treatment Upcoming Encounters Date Type Department Care Team (Latest Contact Info) Description 09/10/2023 10:45 AM CDT Clinical Communication Virtual Review in [place], [place] [address] [place] [address] 09/10/2023 1:00 PM CDT Appointment Department of Radiology in [place] [address] [place] [phone] Sera Casiano M.D., Ph.D. [address] [place] [phone] Discharge Disposition: Home or Self Care 09/10/2023 1:20 PM CDT Appointment Department of Laboratory Medicine in [place] [address] [place] [phone] Sera Casiano M.D., Ph.D. [address] [place] [phone] 09/10/2023 2:30 PM CDT Ancillary Procedure Department of Cardiovascular Diseases in [address] [phone] Clover Delaney M.D. [address] [place] [phone] Discharge Disposition: Home or Self Care 10/01/2023 9:30 AM CDT Comprehensive Visit Department of Cardiovascular Diseases in [address] [phone] Nikko Dey M.D. [address] [place] [phone] Discharge Disposition: Home or Self Care 10/05/2023 1:30 PM CDT Comprehensive Visit Division of Pulmonary Medicine in [place], [place] [address] [place] [phone] Luis Carrion M.B.B.S. [address] [place] [phone] 10/27/2023 2:25 PM CDT Appointment Department of Cardiovascular Diseases in [place], [place] [address] [place] [address] Clover Delaney M.D. [address] [place] [phone] Discharge Disposition: Home or Self Care [...] MUSE QTC Interval 430 ms MUSE R [place] -12 degrees MUSE T Wave [place] 128 degrees MUSE 08/20/2023 3:30 PM CDT [...] Total Score: 4 06/06/19 23 2:04 PM ELECTROTYPE FINISHER documented as of this encounter Care Teams Command And Control Relationship Specialty Start Date End Date Clover Delaney M.D. [address] [place] [phone] PCP - General Internal Medicine 11/23/17 documented as of this encounter
--- OUTSIDE RECORDS SUMMARY | 2023-09-09 17:42 | XMS_ITS | Encounter Summary ---
Author Name Unknown Organization [facility] Address [address] [place] [address] Care Team Providers Care Electrophysiologist Name Role Phone Clover Macias M.D. 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 [address] [place] [address] [facility] Referral ID Status Reason Start Date Expiration Date V isits Requested Visits Authorized [id number] Authorized 09/01/2023 03/02/2025 1 1 * Outpatient (Routine) - Authorized Specialty Diagnoses / Procedures Referred By Contac t Referred To Contact Diagnoses Atrial Fibrillation Unspecified (HCC) Procedures ECG 12 Lead Clover Macias M.D. [address] [place] [address] [facility] Region Referral ID Status Reason Start Date Expiration Date V isits Requested Visits Authorized [id number] Authorized 08/28/2023 08/27/2024 1 1 Reason for Visit * Reason Comments Weakness - Generalized Encounter Details Date Type Department Care Team (Latest Contact Info) Description 08/28/2023 3:30 PM CDT Office Visit Department of [facility] Internal Medicine in [address] [place] [phone] Clover Macias M.D. [address] [place] [address] Follow Up Exam (Primary Dx); [...] e alcohol) Maybe one drink per month [facility] Utilities Answer Date Recorded In the past 12 months has [facility] [employer], [facility], oil, or water [employer] threatened to shut off services in your [...] your living situation today? I have a [facility] place to live 08/28/2023 Education Answer Date Recorded What is the highest level of school you have completed or the highest degree you have received? 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 FreeStyle Brionna 2 [place] 1 each (1 Device total) as directed. [...] by mouth as needed. miscellaneous medical supply [facility] CPAP Supplies See Instructions, CPAP machine, mask 1 ea x 4 refills, headgear 1 ea x 2 refills, tubing 1 ea x 4 refills, filters 2 ea per month, tub 1 ea x 2 refills, mask seal 1 ea x 2 refills DX G47.33, length of need 99, 1 each, 0 Refill(s) [facility] Head Gear for CPAP Machine See Instructions, fax to patient at [phone], 1 each MULTIVITAMIN ORAL Daily Multiple Vitamins See Instructions, Take 1 tablet by mouth daily. ONETOUCH DELICA LANCETS 33 gauge [facility] OneTouch Ultra Test Strips Use to test [...] 490 ms QTC Interval 414 ms R [place] -12 degrees T Wave [place] 95 degrees *Note: Due to a large [...] controlled. Continue titrating insulin. Will try to garbage pick up worker Brionna sensors today. #6 Anemia Iron Deficiency [...] 04/09/2020 ([facility] CT, [facility] records) Future colonoscopies: clear [...] AM CDT Clinical Communication Virtual Review in [address] [phone] 09/10/2023 1:00 PM CDT Appointment Department of Radiology in [address] [place] [address] Sera Casiano M.D., Ph.D. [address] [place] [phone] Discharge Disposition: Home or Self Care 09/10/2023 1:20 PM CDT Appointment Department of Laboratory Medicine [place] [address] [place] [address] Sera Casiano M.D., Ph.D. [address] [place] [phone] 09/10/2023 2:30 PM CDT Ancillary Procedure Department of Cardiovascular Diseases in [address] [phone] Clover Macias M.D. [address] [place] [phone] Discharge Disposition: Home or Self Care 10/01/2023 9:30 AM CDT Comprehensive Visit Department of Cardiovascular Diseases in [address] [phone] Nikko Dey M.D. [address] [place] [phone] Discharge Disposition: Home or Self Care 10/05/2023 1:30 PM CDT Comprehensive Visit Division of Pulmonary Medicine in [place], [place] [address] [place] [phone] Luis Carrion M.B.BJosé LuisS. [address] [place] [phone] 10/27/2023 2:25 PM CDT Appointment Department of Cardiovascular Diseases in [place], [place] [address] [place] [phone] Clover Macias M.D. 701 [facility] [place] [phone] Discharge Disposition: Home or Self Care Scheduled [...] MUSE QTC Interval 414 ms MUSE R [place] -12 degrees MUSE T Wave [place] 95 degrees MUSE 08/28/2023 4:11 PM CDT [...] Total Score: 4 06/06/19 23 2:04 PM MARINE OILER documented as of this encounter Care Teams Electrophysiologist Relationship Specialty Start Date End Date Clover Macias M.D. [address] [place] [address] PCP - General Internal Medicine 11/23/17 documented as of this encounter
--- OUTSIDE RECORDS SUMMARY | 2023-09-09 17:42 | XMS_ITS | Encounter Summary ---
Author Name Unknown Organization [facility] Address [address] [place] [address] Care Team Providers Care Phosphoric Acid Operator Name Role Phone Clover Delaney M.D. Primary Care Provider +1- [phone] Reason for Referral * Outpatient (Routine) - Closed Specialty Diagnoses / Procedures Referred By Yenny hunter Referred To Contact Diagnoses Atrial Fibrillation Unspecified (HCC) Hypertensive Chronic Kidney Disease With Stage 5 Chronic Kidney Disease Or End Stage Renal Disease, Chronic Kidney Disease Stage 5 (HCC) Procedures DX Chest AP or PA and Lateral 2 Views Clover Delaney M.D. [address] [place] [phone] [facility] Region Referral ID Status Reason Start Date Expiration Date Visits Re quested Visits Authorized [id number] Closed 08/19/2023 08/18/2024 1 1 Reason for Visit * Outpatient (Routine) - Closed Specialty Diagnoses / Procedures Referred By Contanthony hunter Referred To Contact Diagnoses Atrial Fibrillation Unspecified (HCC) Hypertensive Chronic Kidney Disease With Stage 5 Chronic Kidney Disease Or End Stage Renal Disease, Chronic Kidney Disease Stage 5 (HCC) Procedures DX Chest AP or PA and Lateral 2 Views Clover Delaney M.D. [address] [place] [address] [facility] Region Referral ID Status Reason Start Date Expiration Date Visits Re quested Visits Authorized [id number] Closed 08/19/2023 08/18/2024 1 1 Encounter Details Date Type Department Care Team (Latest Contact Info) Description 08/20/2023 3:08 PM CDT - 08/20/2023 11:59 PM CDT Hospital Encounter Department of Radiology in [address] [place] [phone] Clover Delaney M.D. [address] [place] [address] Atrial Fibrillation Unspecified (HCC); Hypertensive [...] Answer Date Recorded PHQ-2 Score 2 05/28/2023 [facility] [place] of Occupat ional Health - Occupational [...] Sex Assigned at Male 05/13/2021 10:11 AM ACTUARIAL INTERN Gender Identity Male 11/02/2017 7:22 PM [...] by mouth as needed. miscellaneous medical supply [facility] CPAP Supplies See Instructions, CPAP machine, mask 1 ea x 4 refills, headgear 1 ea x 2 refills, tubing 1 ea x 4 refills, filters 2 ea per month, tub 1 ea x 2 refills, mask seal 1 ea x 2 refills DX G47.33, length of need 99, 1 each, 0 Refill(s) 10/20/2016 miscellaneous medical supply [facility] Head Gear for CPAP Machine See Instructions, fax to patient at [phone], 1 each 01/17/2014 MULTIVITAMIN ORAL Daily Multiple Vitamins See Instructions, Take 1 tablet by mouth daily. 07/23/2013 ONETOUCH DELICA LANCETS 33 gauge [facility] 3 08/02/2018 OneTouch Ultra Test StripsIndications:Diabet es [...] AM CDT Clinical Communication Virtual Review in [place], [place] 200 [place] [address] 09/10/2023 1:00 PM CDT Appointment Department of Radiology in [place] [address] [place] [address] Sera Casiano M.D., Ph.D. [address] [place] [phone] Discharge Disposition: Home or Self Care 09/10/2023 1:20 PM CDT Appointment Department of Laboratory Medicine in [place] [address] [place] [address] Sera Casiano M.D., Ph.D. [address] [place] [phone] 09/10/2023 2:30 PM CDT Ancillary Procedure Department of Cardiovascular Diseases in [address] [phone] Clover Delaney M.D. [address] [place] [phone] Discharge Disposition: Home or Self Care 10/01/2023 9:30 AM CDT Comprehensive Visit Department of Cardiovascular Diseases in [address] [phone] Nikko Dey M.D. [address] [place] [phone] Discharge Disposition: Home or Self Care 10/05/2023 1:30 PM CDT Comprehensive Visit Division of Pulmonary Medicine in [place], [place] [address] [place] [phone] Luis Carrion M.B.B.S. [address] [place] [phone] 10/27/2023 2:25 PM CDT Appointment Department of Cardiovascular Diseases in [place], [place] [address] [place] [address] Clover Delaney M.D. [address] [place] [phone] Discharge Disposition: Home or Self Care [...] insize. Stable mediastinal contours. Comparison 04/30/2018. Clover M Daligga M.D. IMG DIAGNOSTIC IMAG ING PROCEDURES documented in this encounter Visit Diagnoses Diagnosis Atrial Fibrillation Unspecified (HCC) Hypertensive Chronic Kidney Disease With Stage 5 Chronic Kidney Disease Or End Stage Renal Disease, Chronic Kidney Disease Stage 5 (HCC) documented in this encounter Additional Health Concerns Assessment Noted Time PHQ-9 Depression Total Score: 4 06/06/19 23 2:04 PM ACTUARIAL INTERN documented as of this encounter Care Teams Phosphoric Acid Operator Relationship Specialty Start Date End Date Clover Delaney M.D. [address] [place] [phone] PCP - General Internal Medicine 11/23/17 documented as of this encounter
--- OUTSIDE RECORDS SUMMARY | 2023-09-09 17:42 | XMS_ITS | Encounter Summary ---
Author Name Unknown Organization [facility] Address [address] [place] [address] Care Team Providers Care Loom Starter Name Role Phone Clover Delaney M.D. Primary Care Provider +1- [phone] Encounter Details Date Type Department Care Team (Late st Contact Info) Description 08/21/2023 Orders Only Division of Endocrinology in [place], [place] [address] [place] [phone] Cammy Silva M.D. [address] [place] [address] Diabetes Mellitus Type 2 With Diabetic Neuropathy (HCC) (Primary Dx) Social History Tobacco Use Types Packs/Day Years Used Date Smoking Tobacco: Former Cigarettes 0 1961 - 12/26/1980 Passive Smoke Exposure: Never Smokeless Tobacco: Never Alcohol Use Standard Drinks/Week Comments Yes 0 (1 standard drink = 0.6 oz pur e alcohol) Maybe one drink per month [facility] Utilities Answer Date Recorded In the past 12 months has e [employer], gas, oil, or water [employer] threatened to shut off services in your [...] How often do you attend chur or protestant services? Never 07/28/2022 Do you belong to [...] Date Recorded PHQ-2 Score 2 05/28/2023 [facility] [place] of Occupat ional Health - Occupational Stress [...] your living situation today? I have a [facility] place to live 08/28/2023 Education Answer Date Recorded What is the highest level of school you have completed or the highest degree you have received? Professional school degree (e.g., , DDS, DVM, NACHO) 10/10/2020 Sex and Gender Information Value Date Recorded Sex Assigned at Male 05/13/2021 10:11 AM MODEL SET ARTIST Gender Identity Male 11/02/2017 7:22 PM CDT Sexual Orientation Straight 11/02/2017 7: 22 PM CDT documented as of this encounter Plan of Treatment Upcoming Encounters Date Type Department Care Team (Latest Contact Info) Description 09/10/2023 10:45 AM CDT Clinical Communication Virtual Review in [place], [place] [address] [place] [address] 09/10/2023 1:00 PM CDT Appointment Department of Radiology in [place] [address] [place] [address] Sera Casiano M.D., Ph.D. [address] [place] [phone] Discharge Disposition: Home or Self Care 09/10/2023 1:20 PM CDT Appointment Department of Laboratory Medicine in [place] [address] [place] [phone] Sera Casiano M.D., Ph.D. [address] [place] [phone] 09/10/2023 2:30 PM CDT Ancillary Procedure Department of Cardiovascular Diseases in [address] [phone] Clover Delaney M.D. [address] [place] [phone] Discharge Disposition: Home or Self Care 10/01/2023 9:30 AM CDT Comprehensive Visit Department of Cardiovascular Diseases in [address] [phone] Nikko Dey M.D. [address] [place] [phone] Discharge Disposition: Home or Self Care 10/05/2023 1:30 PM CDT Comprehensive Visit Division of Pulmonary Medicine in [place], [place] [address] [place] [phone] Luis Carrion M.B.B.S. [address] [place] [phone] 10/27/2023 2:25 PM CDT Appointment Department of Cardiovascular Diseases in [place], [place] [address] [place] [address] Clover Delaney M.D. [address] [place] [address] Discharge Disposition: Home or Self Care documented as of this encounter Visit Diagnoses Diagnosis Diabetes Mellitus Type 2 With Diabetic Neuropathy (HCC)- Primary documented in this encounter Additional Health Concerns Assessment Noted Time PHQ-9 Depression Total Score: 4 06/06/19 23 2:04 PM MODEL SET ARTIST documented as of this encounter Care Teams Loom Starter Relationship Specialty Start Date End Date Clover Delaney M.D. 701 [place] [address] PCP - General Internal Medicine 11/23/17 documented as of this encounter
--- OUTSIDE RECORDS SUMMARY | 2023-09-09 17:42 | XMS_ITS | Encounter Summary ---
Author Name Unknown Organization [facility] Address [address] [place] [address] Care Team Providers Care Profile Saw Setup Operator Name Role Phone Clover Delaney M.D. Primary Care Provider +1- [phone] Reason for Visit * Reason Comments infusion orders Encounter Details Date Type Department Care Team (Latest Contact Info) Description 08/25/2023 Clinical Communication Division of Nephrology and Hypertension in [place], [place] [address] [place] [address] Sera Casiano M.D., Ph.D. [address] [place] [phone] infusion orders Social History Tobacco Use Types Packs/Day Years Used Date Smoking Tobacco: Former Cigarettes 0 1961 - 12/26/1980 Passive Smoke Exposure: Never Smokeless Tobacco: Never Alcohol Use Standard Drinks/Week Comments Yes 0 (1 standard drink = 0.6 oz pur e alcohol) Maybe one drink per month [facility] Utilities Answer Date Recorded In the past 12 months has e [facility], gas, oil, or water [employer] threatened to shut off services in your [...] Answer Date Recorded PHQ-2 Score 2 05/28/2023 [facility] [place] of Occupat ional Health - Occupational Stress [...] living situation today? I have a [facility] place to live 08/28/2023 Education Answer Date Recorded What is the highest level of school you have completed or the highest degree you have received? Professional school degree (e.g., , DDS, DVM, NACHO) 10/10/2020 Sex and Gender Information Value Date Recorded Sex Assigned at Male 05/13/2021 10:11 AM JAILER CHIEF Gender Identity Male 11/02/2017 7:22 PM CDT Sexual Orientation Straight 11/02/2017 7: 22 PM CDT documented as of this encounter Plan of Treatment Upcoming Encounters Date Type Department Care Team (Latest Contact Info) Description 09/10/2023 10:45 AM CDT Clinical Communication Virtual Review in [place], [place] [address] [place] [address] 09/10/2023 1:00 PM CDT Appointment Department of Radiology in [address] [place] [address] Sera Casiano M.D., Ph.D. [address] [place] [phone] Discharge Disposition: Home or Self Care 09/10/2023 1:20 PM CDT Appointment Department of Laboratory Medicine in [place] [address] [place] [address] Sera Casiano M.D., Ph.D. [address] [place] [phone] 09/10/2023 2:30 PM CDT Ancillary Procedure Department of Cardiovascular Diseases in [address] [phone] Clover Delaney M.D. [address] [place] [phone] Discharge Disposition: Home or Self Care 10/01/2023 9:30 AM CDT Comprehensive Visit Department of Cardiovascular Diseases in [address] [phone] Nikko Dey M.D. [address] [place] [phone] Discharge Disposition: Home or Self Care 10/05/2023 1:30 PM CDT Comprehensive Visit Division of Pulmonary Medicine in [place], [place] [address] [place] [phone] Luis Carrion M.B.B.S. [address] [place] [phone] 10/27/2023 2:25 PM CDT Appointment Department of Cardiovascular Diseases in [place], [place] [address] [place] [address] Clover Delaney M.D. 701 [place] [phone] Discharge Disposition: Home or Self Care documented as of this encounter Visit Diagnoses Not on filedocumented in this encounter Additional Health Concerns Assessment Noted Time PHQ-9 Depression Total Score: 4 06/06/19 23 2:04 PM JAILER CHIEF documented as of this encounter Care Teams Profile Saw Setup Operator Relationship Specialty Start Date End Date Clover Delaney M.D. 701 [place] [phone] PCP - General Internal Medicine 11/23/17 documented as of this encounter
--- OUTSIDE RECORDS SUMMARY | 2023-09-09 17:42 | XMS_ITS | Encounter Summary ---
Author Name Unknown Organization [facility] Address [address] [place] [address] Care Team Providers Care Extension Course Counselor Name Role Phone Clover Delaney M.D. Primary Care Provider +1- [phone] Reason for Visit * Reason Comments Med Refill Encounter Details Date Type Department Care Team (Late st Contact Info) Description 08/27/2023 Refill Division of Nephrology and Hypertension in [place], [place] [address] [place] [phone] Mónica Portillo, TRIXIE, C.N.P., M.S. [address] [place] [phone] Med Refill Social History Tobacco Use Types Packs/Day Years Used Date Smoking Tobacco: Former Cigarettes 0 1961 - 12/26/1980 Passive Smoke Exposure: Never Smokeless Tobacco: Never Alcohol Use Standard Drinks/Week Comments Yes 0 (1 standard drink = 0.6 oz pur e alcohol) Maybe one drink per month [facility] Utilities Answer Date Recorded In the past 12 months has e [employer], gas, oil, or water [employer] threatened to shut off services in your [...] often do you attend chur ch or protestant services? Never 07/28/2022 Do you [...] Answer Date Recorded PHQ-2 Score 2 05/28/2023 [facility] [place] of Occupat ional Health - Occupational Stress [...] living situation today? I have a [facility] place to live 08/28/2023 Education Answer Date Recorded What is the highest level of school you have completed or the highest degree you have received? Professional school degree (e.g., MD, DDS, DVM, NACHO) 10/10/2020 Sex and Gender Information Value Date Recorded Sex Assigned at Male 05/13/2021 10:11 AM TURNER OFF Gender Identity Male 11/02/2017 7:22 PM CDT Sexual Orientation Straight 11/02/2017 7: 22 PM CDT documented as of this encounter Plan of Treatment Upcoming Encounters Date Type Department Care Team (Latest Contact Info) Description 09/10/2023 10:45 AM CDT Clinical Communication Virtual Review in [place], [place] [address] [place] [address] 09/10/2023 1:00 PM CDT Appointment Department of Radiology in [place] [address] [place] [address] Sera Casiano M.D., Ph.D. [address] [place] [phone] Discharge Disposition: Home or Self Care 09/10/2023 1:20 PM CDT Appointment Department of Laboratory Medicine in [place] [address] [place] [address] Sera Casiano M.D., Ph.D. [address] [place] [phone] 09/10/2023 2:30 PM CDT Ancillary Procedure Department of Cardiovascular Diseases in [address] [phone] Clover Delaney M.D. [address] [place] [phone] Discharge Disposition: Home or Self Care 10/01/2023 9:30 AM CDT Comprehensive Visit Department of Cardiovascular Diseases in [address] [phone] Nikko Dey M.D. [address] [place] [phone] Discharge Disposition: Home or Self Care 10/05/2023 1:30 PM CDT Comprehensive Visit Division of Pulmonary Medicine in [place], [place] [address] [place] [phone] Luis Carrion M.B.B.S. [address] [place] [phone] 10/27/2023 2:25 PM CDT Appointment Department of Cardiovascular Diseases in [place], [place] [address] [place] [address] Clover Delaney M.D. 701 [place] [address] Discharge Disposition: Home or Self Care documented as of this encounter Visit Diagnoses Not on filedocumented in this encounter Additional Health Concerns Assessment Noted Time PHQ-9 Depression Total Score: 4 06/06/19 23 2:04 PM TURNER OFF documented as of this encounter Care Teams Extension Course Counselor Relationship Specialty Start Date End Date Clover Delaney M.D. [address] [place] [address] PCP - General Internal Medicine 11/23/17 documented as of this encounter
--- OUTSIDE RECORDS SUMMARY | 2023-09-09 17:42 | XMS_ITS | Encounter Summary ---
Author Name Unknown Organization [facility] Address [address] [place] [address] Care Team Providers Care Supervisor Trust Accounts Name Role Phone Clover Delaney M.D. Primary Care Provider +1- [phone] Encounter Details Date Type Department Care Team (Late st Contact Info) Description 08/19/2023 Orders Only Division of Endocrinology in [place], [place] [address] [place] [phone] Cammy Silva M.D. [address] [place] [phone] Social History Tobacco Use Types Packs/Day Years Used Date Smoking Tobacco: Former Cigarettes 0 1961 - 12/26/1980 Passive Smoke Exposure: Never Smokeless Tobacco: Never Alcohol Use Standard Drinks/Week Comments Yes 0 (1 standard drink = 0.6 oz pur e alcohol) Maybe one drink per month [facility] Utilities Answer Date Recorded In the [...] Answer Date Recorded PHQ-2 Score 2 05/28/2023 [facility] [place] of Occupat ional Health - Occupational Stress [...] your living situation today? I have a [facility] place to live 08/28/2023 Education Answer Date Recorded What is the highest level of school you have completed or the highest degree you have received? Professional school degree (e.g., MD, DDS, DVM, NACHO) 10/10/2020 Sex and Gender Information Value Date Recorded Sex Assigned at Male 05/13/2021 10:11 AM PIGMENT WEIGHER Gender Identity Male 11/02/2017 7:22 PM CDT Sexual Orientation Straight 11/02/2017 7: 22 PM CDT documented as of this encounter Plan of Treatment Upcoming Encounters Date Type Department Care Team (Latest Contact Info) Description 09/10/2023 10:45 AM CDT Clinical Communication Virtual Review in [place], [place] [address] [place] [address] 09/10/2023 1:00 PM CDT Appointment Department of Radiology in [place] [address] [place] [address] Sera Casiano M.D., Ph.D. [address] [place] [phone] Discharge Disposition: Home or Self Care 09/10/2023 1:20 PM CDT Appointment Department of Laboratory Medicine in [place] [address] [place] [address] Sera Casiano M.D., Ph.D. [address] [place] [phone] 09/10/2023 2:30 PM CDT Ancillary Procedure Department of Cardiovascular Diseases in [address] [phone] Clover Delaney M.D. [address] [place] [phone] Discharge Disposition: Home or Self Care 10/01/2023 9:30 AM CDT Comprehensive Visit Department of Cardiovascular Diseases in [address] [phone] Nikko Dey M.D. [address] [place] [phone] Discharge Disposition: Home or Self Care 10/05/2023 1:30 PM CDT Comprehensive Visit Division of Pulmonary Medicine in [place], [place] [address] [place] [phone] Luis Carrion M.B.B.S. [address] [place] [phone] 10/27/2023 2:25 PM CDT Appointment Department of Cardiovascular Diseases in [place], [place] [address] [place] [address] Clover Delaney M.D. 701 [place] [phone] Discharge Disposition: Home or Self Care documented as of this encounter Visit Diagnoses Not on filedocumented in this encounter Additional Health Concerns Assessment Noted Time PHQ-9 Depression Total Score: 4 06/06/19 23 2:04 PM PIGMENT WEIGHER documented as of this encounter Care Teams Supervisor Trust Accounts Relationship Specialty Start Date End Date Clover Delaney M.D. [address] [place] [phone] PCP - General Internal Medicine 11/23/17 documented as of this encounter
--- OUTSIDE RECORDS SUMMARY | 2023-09-09 17:42 | XMS_ITS | Encounter Summary ---
Author Name Unknown Organization [facility] Address [address] [place] [address] Care Team Providers Care Banquet Houseperson Name Role Phone Clover Delaney M.D. Primary Care Provider +1- [phone] Reason for Visit * Reason Comments Med Refill Encounter Details Date Type Department Care Team (Late st Contact Info) Description 08/21/2023 Refill Department of Community Internal Medicine in [address] [place] [phone] Clover Delaney M.D. [address] [place] [address] Med Refill Social History Tobacco [...] often do you attend chur ch or tenriism services? Never 07/28/2022 Do you [...] Answer Date Recorded PHQ-2 Score 2 05/28/2023 [facility] [place] of Occupat ional Health - Occupational [...] Assigned at Male 05/13/2021 10:11 AM TRAINING INTERN Gender Identity Male 11/02/2017 7:22 PM CDT Sexual Orientation Straight 11/02/2017 7: 22 PM CDT documented as of this encounter Miscellaneous Notes * Telephone Encounter - Glendy Leggett - 08/21/2023 12:02 PM CDT RX for 8 each was escribed 08/18/23 to [facility] in [place] documented in this encounter Plan of Treatment Upcoming Encounters Date Type Department Care Team (Latest Contact Info) Description 09/10/2023 10:45 AM CDT Clinical Communication Virtual Review in [place], [place] 200 [place] [address] 09/10/2023 1:00 PM CDT Appointment Department of Radiology in [place] [address] [place] [address] Sera Casiano M.D., Ph.D. [address] [place] [phone] Discharge Disposition: Home or Self Care 09/10/2023 1:20 PM CDT Appointment Department of Laboratory Medicine in [place] [address] [place] [address] Sera Casiano M.D., Ph.D. [address] [place] [phone] 09/10/2023 2:30 PM CDT Ancillary Procedure Department of Cardiovascular Diseases in [address] [phone] Clover Delaney M.D. [address] [place] [phone] Discharge Disposition: Home or Self Care 10/01/2023 9:30 AM CDT Comprehensive Visit Department of Cardiovascular Diseases in [address] [phone] Nikko Dey M.D. 701 [place] [phone] Discharge Disposition: Home or Self Care 10/05/2023 1:30 PM CDT Comprehensive Visit Division of Pulmonary Medicine in [place], [place] [address] [place] [address] Luis Carrion M.B.B.SJosé Luis [address] [place] [phone] 10/27/2023 2:25 PM CDT Appointment Department of Cardiovascular Diseases in [place], [place] [address] [place] [phone] Clover Delaney M.D. 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 701 [place] [phone] PCP - General Internal Medicine 11/23/17 documented as of this encounter
--- OUTSIDE RECORDS SUMMARY | 2023-09-09 17:42 | XMS_ITS | Encounter Summary ---
Author Name Unknown Organization [facility] Address [address] [place] [address] Care Team Providers Care Sausage Maker Name Role Phone Clover Delaney M.D. Primary Care Provider [phone]- [phone] Encounter Details Date Type Department Care Team (Latest Contact Info) Description 08/20/2023 3:00 PM CDT - 08/20/2023 3:06 PM CDT Hospital Encounter Department of Laboratory Medicine in [address] [place] [address] Clover Delaney M.D. [address] [place] [phone] Atrial Fibrillation Unspecified (HCC); Hypertensive [...] Score 2 05/28/2023 [facility] of Occupat ional Health - [...] Sex Assigned at Male 05/13/2021 10:11 AM COMPANY ACCOUNTANT Gender Identity Male 11/02/2017 7:22 PM [...] by mouth as needed. miscellaneous medical supply [facility] CPAP Supplies See Instructions, CPAP machine, mask 1 ea x 4 refills, headgear 1 ea x 2 refills, tubing 1 ea x 4 refills, filters 2 ea per month, tub 1 ea x 2 refills, mask seal 1 ea x 2 refills DX G47.33, length of need 99, 1 each, 0 Refill(s) 10/20/2016 miscellaneous medical supply [facility] Head Gear for CPAP Machine See Instructions, fax to patient at [phone], 1 each 01/17/2014 MULTIVITAMIN ORAL Daily Multiple [...] AM CDT Clinical Communication Virtual Review in [place], [place] 200 [place] [address] 09/10/2023 1:00 PM CDT Appointment Department of Radiology in [place] [address] [place] [address] Sera Casiano M.D., Ph.D. [address] [place] [phone] Discharge Disposition: Home or Self Care 09/10/2023 1:20 PM CDT Appointment Department of Laboratory Medicine in [place] [address] [place] [phone] Sera Casiano M.D., Ph.D. [address] [place] [phone] 09/10/2023 2:30 PM CDT Ancillary Procedure Department of Cardiovascular Diseases in [address] [phone] Clover Delaney M.D. [address] [place] [phone] Discharge Disposition: Home or Self Care 10/01/2023 9:30 AM CDT Comprehensive Visit Department of Cardiovascular Diseases in [place], [place] 701 [place] [phone] Nikko Dey M.D. 701 [place] [phone] Discharge Disposition: Home or Self Care 10/05/2023 1:30 PM CDT Comprehensive Visit Division of Pulmonary Medicine in [place], [place] [address] [place] [phone] Luis Carrion M.B.B.S. [address] [place] [phone] 10/27/2023 2:25 PM CDT Appointment Department of Cardiovascular Diseases in [place], [place] [address] [place] [address] Clover Delaney M.D. [address] [place] [phone] Discharge Disposition: Home or Self Care documented [...] CDT Clover Delaney M.D. LAB BLOOD ADD-ON [facility] [address] [place] [address], [facility] in [address] [phone] * Thyroid Function White (08/20/2023 3:17 PM CDT) [facility] TSH, Sensitive 2.7 0.3 - 4.2 mIU/L 08/20/2023 8:07 PM CDT [facility] Blood (Blood, Venous) 08/20/2023 3:17 PM CDT 08/20/2023 7:01 PM CDT Clover Delaney M.D. LAB BLOOD ADD-ON [facility] [address] [place] [address], [facility] in [address] [phone] * (ABNORMAL) Comprehensive Metabolic Panel (08/20/2023 3:17 [...] CDT Clover Delaney M.D. LAB BLOOD ADD-ON [facility] [address] [place] [address], [facility] in [place] [address] [place] [address] * (ABNORMAL) CBC without Differential (08/20/2023 3:17 [...] 3:17 PM CDT 08/20/2023 7:01 PM CDT Clvoer Delaney M.D. LAB BLOOD ADD-ON [facility] [address] [place] [address], [facility] in [place] [address] [place] [address] documented in this encounter Visit Diagnoses Diagnosis Atrial Fibrillation Unspecified (HCC) Hypertensive Chronic Kidney Disease With Stage 5 Chronic Kidney Disease Or End Stage Renal Disease, Chronic Kidney Disease Stage 5 (HCC) documented in this encounter Additional Health Concerns Assessment Noted Time PHQ-9 Depression Total Score: 4 06/06/19 23 2:04 PM COMPANY ACCOUNTANT documented as of this encounter Care Teams Sausage Maker Relationship Specialty Start Date End Date Clover Delaney M.D. [address] [place] [phone] PCP - General Internal Medicine 11/23/17 documented as of this encounter
--- OUTSIDE RECORDS SUMMARY | 2023-09-09 17:43 | XMS_ITS | Encounter Summary ---
Author Name Unknown Organization [facility] Address [address] [place] [address] Care Team Providers Care Nursing Unit Clerk Name Role Phone Clover Delaney M.D. Primary Care Provider +1- [phone] Encounter Details Date Type Department Care Team (Latest Contact Info) Description 07/29/2023 9:49 AM CDT - 07/29/2023 10:51 AM CDT Hospital Encounter Department of Laboratory Medicine and Pathology, [facility], in [place], [place] [address] [place] [phone] Sera Casiano M.D., Ph.D. 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 miscellaneous medical supply [facility] CPAP Supplies See Instructions, CPAP machine, mask 1 ea x 4 refills, headgear 1 ea x 2 refills, tubing 1 ea x 4 refills, filters 2 ea per month, tub 1 ea x 2 refills, mask seal 1 ea x 2 refills DX G47.33, length of need 99, 1 each, 0 Refill(s) 10/20/2016 miscellaneous medical supply [facility] Head Gear for CPAP Machine See Instructions, fax to patient at [phone], 1 each 01/17/2014 MULTIVITAMIN ORAL Daily Multiple [...] days for 4 doses. 2 mL 07/21/2023 carvediloL (COREG) 12.5 mg tablet TAKE ONE TABLET BY MOUTH TWICE A DAY WITH MEALS 180 tablet 3 09/03/2022 08/28/2023 cloNIDine (CATAPRES) 0.1 mg tablet Take 1 tablet (0.1 mg total) by mouth 2 (two) times a day. 180 tablet 3 07/17/2023 08/05/2023 prednisoLONE acetate (PRED FORTE) 1 % ophthalmic suspension place 1 drop into the left eye once daily. 5 mL 02/05/2023 09/07/2023 torsemide (DEMADEX) 20 mg tablet Take 2 tablets (40 mg total) by mouth daily. 180 tablet 3 06/26/2023 08/05/2023 documented as of this encounter Plan of Treatment Upcoming Encounters Date Type Department Care Team (Latest Contact Info) Description 09/10/2023 10:45 AM CDT Clinical Communication Virtual Review in [place], [place] 200 [place] [address] 09/10/2023 1:00 PM CDT Appointment Department of Radiology in [place] [address] [place] [address] Sera Casiano M.D., Ph.D. [address] [place] [phone] Discharge Disposition: Home or Self Care 09/10/2023 1:20 PM CDT Appointment Department of Laboratory Medicine in [place] [address] [place] [address] Sera Casiano M.D., Ph.D. [address] [place] [phone] 09/10/2023 2:30 PM CDT Ancillary Procedure Department of Cardiovascular Diseases in [address] [phone] Clover Delaney M.D. [address] [place] [phone] Discharge Disposition: Home or Self Care 10/01/2023 9:30 AM CDT Comprehensive Visit Department of Cardiovascular Diseases in [address] [phone] Nikko Dey M.D. 701 [place] [phone] Discharge Disposition: Home or Self Care 10/05/2023 1:30 PM CDT Comprehensive Visit Division of Pulmonary Medicine in [place], [place] [address] [place] [phone] Luis Carrion M.B.B.S. [address] [place] [phone] 10/27/2023 2:25 PM CDT Appointment Department of Cardiovascular Diseases in [place], [place] [address] [place] [phone] Clover Delaney M.D. 701 [place] [phone] Discharge Disposition: Home or Self Care documented [...] LAB UR INE ORDERABLES Performing Organization Address [facility] Co de Phone Number [facility] 200 [place] [address], [facility] DTL [facility] 200 [place] [address] * (ABNORMAL) Dipstick, Urine (07/29/2023 10:27 AM [...] LAB UR INE ORDERABLES Performing Organization Address City/[facility] Co de Phone Number [facility] 200 [place] [address], [facility] DTL [facility] 200 [place] [address] * pH, Urine (07/29/2023 10:27 AM CDT) Pathologist [facility] pH, U 6.2 4.5 - 8.0 07/29/2023 11: 02 AM CDT DTL Urine 07/29/2023 10:2 7 AM CDT 07/29/2023 10:35 AM CDT Sera Hyman M.D., Ph.D. LAB UR INE ORDERABLES Performing Organization Address City/[facility] Co de Phone Number [facility] [address] 200 [place] [address] * Osmolality, Urine (07/29/2023 10:27 AM CDT) Pathologist [facility] Osmolality, U 323 150 - 1150 mOsm/kg 07/29/2023 11:02 AM CDT DT Urine 07/29/2023 10:2 7 AM CDT 07/29/2023 10:35 AM CDT Sera Hyman M.D., Ph.D. LAB UR INE ORDERABLES Performing Organization Address [facility] Co de Phone Number [facility] 200 [place] [address], [address] [address] * (ABNORMAL) Urinalysis, with Microscopic: Urine, Midstream [...] 07/29/2023 11:44 AM CDT DTL Predicted Range 2563-66936 mg/24 h 07/29/2023 11:44 AM CDT DTL Comment Micro done on <10 mL 07/29/2023 1:01 PM CDT DTL Urine (Urine, Midstream) 07/29/2023 10:27 AM CDT 07/29/2023 10:35 AM CDT Sera Hyman M.D., Ph.D. LAB UR INE ORDERABLES 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 [address] [place] [phone] PCP - General Internal Medicine 11/23/17 documented as of this encounter
--- OUTSIDE RECORDS SUMMARY | 2023-09-09 17:43 | XMS_ITS | Encounter Summary ---
Author Name Unknown Organization [facility] Address [address] [place] [address] Care Team Providers Care Animal Shelter Manager Name Role Phone Clover Delaney M.D. Primary Care Provider +1- [phone] Encounter Details Date Type Department Care Team (Late st Contact Info) Description 07/23/2023 Clinical Communication Division of Nephrology and Hypertension in [place], [place] [address] [place] [address] Monica Ferreira RMonster., C.M.S.R.N. [address] [place] [phone] Social History Tobacco Use Types Packs/Day Years [...] Answer Date Recorded PHQ-2 Score 2 05/28/2023 [facility] [place] [facility] [place] of Occupat ional Health - Occupational Stress [...] Sex Assigned at Male 05/13/2021 10:11 AM MOLDING MACHINE SETTER Gender Identity Male 11/02/2017 7:22 PM CDT [...] AM CDT Clinical Communication Virtual Review in [place], [place] 200 [place] [address] 09/10/2023 1:00 PM CDT Appointment Department of Radiology in [address] [place] [address] Sera Casiano M.D., Ph.D. [address] [place] [phone] Discharge Disposition: Home or Self Care 09/10/2023 1:20 PM CDT Appointment Department of Laboratory Medicine in [place] [address] [place] [address] Sera Casiano M.D., Ph.D. [address] [place] [phone] 09/10/2023 2:30 PM CDT Ancillary Procedure Department of Cardiovascular Diseases in [address] [phone] Clover Delaney M.D. [address] [place] [phone] Discharge Disposition: Home or Self Care 10/01/2023 9:30 AM CDT Comprehensive Visit Department of Cardiovascular Diseases in [place], [place] [address] [place] [phone] Nikko Dey M.D. 701 [place] [phone] Discharge Disposition: Home or Self Care 10/05/2023 1:30 PM CDT Comprehensive Visit Division of Pulmonary Medicine in [place], [place] [address] [place] [address] Luis Carrion M.B.BJosé LuisSJosé Luis [address] [place] [phone] 10/27/2023 2:25 PM CDT Appointment Department of Cardiovascular Diseases in [place], [place] [address] [place] [address] Clover Delaney M.D. [address] [place] [phone] Discharge Disposition: Home or Self Care documented as of this encounter Visit Diagnoses Not on filedocumented in this encounter Additional Health Concerns Assessment Noted Time PHQ-9 Depression Total Score: 4 06/06/19 23 2:04 PM MOLDING MACHINE SETTER documented as of this encounter Care Teams Animal Shelter Manager Relationship Specialty Start Date End Date Clover Delaney M.D. [address] [place] [phone] PCP - General Internal Medicine 11/23/17 documented as of this encounter
--- OUTSIDE RECORDS SUMMARY | 2023-09-09 17:43 | XMS_ITS | Encounter Summary ---
Author Name Unknown Organization [facility] Address [address] [place] [address] Care Team Providers Care Subway Guard Name Role Phone Clover Delaney M.D. Primary Care Provider [phone]- [phone] Encounter Details Date Type Department Care Team (Latest Contact Info) Description 07/29/2023 9:49 AM CDT - 07/29/2023 10:51 AM CDT Hospital Encounter Department of Laboratory Medicine and Pathology, [facility], in [place], [place] [address] [place] [phone] Sera Casiano M.D., Ph.D. 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 miscellaneous medical supply [facility] CPAP Supplies See Instructions, CPAP machine, mask 1 ea x 4 refills, headgear 1 ea x 2 refills, tubing 1 ea x 4 refills, filters 2 ea per month, tub 1 ea x 2 refills, mask seal 1 ea x 2 refills DX G47.33, length of need 99, 1 each, 0 Refill(s) 10/20/2016 miscellaneous medical supply [facility] Head Gear for CPAP Machine See Instructions, fax to patient at [phone], 1 each 01/17/2014 MULTIVITAMIN ORAL Daily Multiple [...] AM CDT Clinical Communication Virtual Review in [place], [place] 200 [place] [address] 09/10/2023 1:00 PM CDT Appointment Department of Radiology in [place] [address] [place] [address] Sera Casiano M.D., Ph.D. [address] [place] [phone] Discharge Disposition: Home or Self Care 09/10/2023 1:20 PM CDT Appointment Department of Laboratory Medicine in [place] [address] [place] [address] Sera Casiano M.D., Ph.D. [address] [place] [phone] 09/10/2023 2:30 PM CDT Ancillary Procedure Department of Cardiovascular Diseases in [address] [phone] Clover Delaney M.D. [address] [place] [phone] Discharge Disposition: Home or Self Care 10/01/2023 9:30 AM CDT Comprehensive Visit Department of Cardiovascular Diseases in [address] [phone] Nikko Dey M.D. 701 [place] [phone] Discharge Disposition: Home or Self Care 10/05/2023 1:30 PM CDT Comprehensive Visit Division of Pulmonary Medicine in [place], [place] [address] [place] [phone] Luis Carrion M.B.B.S. [address] [place] [phone] 10/27/2023 2:25 PM CDT Appointment Department of Cardiovascular Diseases in [place], [place] [address] [place] [phone] Clover Delaney M.D. 701 [place] [phone] Discharge Disposition: Home or Self Care documented [...] LAB BL OOD ADD-ON Performing Organization Address City/[facility]/[place] [address] * Phosphorus Inorganic (07/29/2023 10:17 AM CDT) [facility] Phosphorus (Inorganic), S 4.5 2.5 - 4.5 mg/dL 07/29/2023 12:32 PM CDT DTL Blood (Blood, Venous) 07/29/2023 10:17 AM CDT 07/29/2023 10:55 AM CDT Sera Hyman M.D., Ph.D. LAB BL OOD ADD-ON [facility] 200 [place] [address], [place] [address] * (ABNORMAL) Glucose, Fasting (07/29/2023 10:17 AM CDT) Pathologist [facility] Glucose, P 256(H) 70 - 100 mg/dL 07/29/2023 11:15 AM CDT DTL Last Intake 16 hr 07/29/2023 10:52 AM CDT DTL Blood (Blood, Venous) 07/29/2023 10:17 AM CDT 07/29/2023 10:52 AM CDT Sera Hyman M.D., Ph.D. LAB BL OOD NON ADD-ON Performing Organization Address City/[facility]/ZIP Co de Phone Number [facility] 200 [place] [address], [facility] 200 [place] [address] * CRP (C-Reactive Protein) (07/29/2023 10:17 AM CDT) C-Reactive Protein (CRP), S <3.0 <5.0 mg/L 07/29/2023 12:32 PM CDT DTL Blood (Blood, Venous) 07/29/2023 10:17 AM CDT 07/29/2023 10:55 AM CDT Sera Hyman M.D., Ph.D. LAB BL OOD ADD-ON Performing Organization Address City/[facility]/ZIP Co de Phone Number [facility] 200 [place] [address], [facility] 200 [place] [address] * (ABNORMAL) Comprehensive Metabolic Panel (07/29/2023 10:17 [...] Hyman M.D., Ph.D. LAB BL OOD ADD-ON [facility] [address] [place] [address], [facility] [address] [place] [address] * (ABNORMAL) CBC with Differential, Blood (07/29/2023 [...] Hyman M.D., Ph.D. LAB BL OOD ADD-ON [facility] [address] [place] [address], [facility] DTL [facility] [address] [place] [address] [facility] [address] [place] [address] * ANCA (Antineutrophil Cytoplasmic Antibodies) Vasculitis Panel (07/29/2023 10:17 AM CDT) Myeloperoxidase Ab, S <0.2 <0.4 (Negative ) U 07/29/2023 4:45 PM CDT [facility] Proteinase 3 Ab (PR3), S <0.2 <0.4 (Negative ) U 07/29/2023 4:45 PM CDT [facility] Blood (Blood, Venous) 07/29/2023 10:17 AM CDT 07/29/2023 2:52 PM CDT Sera Hyman M.D., Ph.D. LAB BL OOD ADD-ON [facility] [address] [place] [address] [facility] [address] 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 701 [place] [phone] PCP - General Internal Medicine 11/23/17 documented as of this encounter
--- OUTSIDE RECORDS SUMMARY | 2023-09-09 17:43 | XMS_ITS | Encounter Summary ---
Author Name Unknown Organization [facility] Address [address] [place] [address] Care Team Providers Care Point Of Care Specialist Name Role Phone Clover Delaney M.D. 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 [address] [place] [phone] [facility] Referral ID Status Reason Start Date Expiration Date Visits Re quested Visits Authorized [id number] Closed 06/30/2023 06/29/2024 1 1 Encounter Details Date Type Department Care Team (Latest Contact Info) Description 07/29/2023 10:52 AM CDT - 07/29/2023 12:12 PM CDT Hospital Encounter Department of Radiology, [facility], in [place], [place] [address] [place] [address] Sera Casiano M.D., Ph.D. 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 miscellaneous medical supply [facility] CPAP Supplies See Instructions, CPAP machine, mask 1 ea x 4 refills, headgear 1 ea x 2 refills, tubing 1 ea x 4 refills, filters 2 ea per month, tub 1 ea x 2 refills, mask seal 1 ea x 2 refills DX G47.33, length of need 99, 1 each, 0 Refill(s) 10/20/2016 miscellaneous medical supply [facility] Head Gear for CPAP Machine See Instructions, fax to patient at [phone], 1 each 01/17/2014 MULTIVITAMIN ORAL Daily Multiple Vitamins See Instructions, Take 1 tablet by mouth daily. 07/23/2013 ONETOUCH DELICA LANCETS 33 gauge [facility] 3 08/02/2018 OneTouch Ultra Test StripsIndications:Diabet es [...] AM CDT Clinical Communication Virtual Review in [place], [place] 200 [place] [address] 09/10/2023 1:00 PM CDT Appointment Department of Radiology in [address] [place] [address] Sera Casiano M.D., Ph.D. [address] [place] [phone] Discharge Disposition: Home or Self Care 09/10/2023 1:20 PM CDT Appointment Department of Laboratory Medicine in [address] [place] [address] Sera Casiano M.D., Ph.D. [address] [place] [phone] 09/10/2023 2:30 PM CDT Ancillary Procedure Department of Cardiovascular Diseases in [address] [phone] Clover Delaney M.D. [address] [place] [phone] Discharge Disposition: Home or Self Care 10/01/2023 9:30 AM CDT Comprehensive Visit Department of Cardiovascular Diseases in [place], [place] [address] [place] [phone] Nikko Dey M.D. [address] [place] [phone] Discharge Disposition: Home or Self Care 10/05/2023 1:30 PM CDT Comprehensive Visit Division of Pulmonary Medicine in [place], [place] [address] [place] [phone] Luis Carrion M.B.BJosé LuisS. [address] [place] [phone] 10/27/2023 2:25 PM CDT Appointment Department of Cardiovascular Diseases in [place], [place] [address] [place] [phone] Clover Delaney M.D. 701 [place] [phone] Discharge Disposition: Home or Self Care documented [...] the upper pole of the left kidney ([id number]). Hypertrophic changes in the spine. Mild degenerative [...] Score: 4 06/06/19 23 2:04 PM MARKETING PRODUCTION COORDINATOR documented as of this encounter Care Teams Point Of Care Specialist Relationship Specialty Start Date End Date Clover Delaney M.D. [address] [place] [phone] PCP - General Internal Medicine 11/23/17 documented as of this encounter
--- OUTSIDE RECORDS SUMMARY | 2023-09-09 17:43 | XMS_ITS | Encounter Summary ---
Author Name Unknown Organization [facility] Address [address] [place] [address] Care Team Providers Care Toaster Element Repairer Name Role Phone Clover Delaney M.D. Primary Care Provider +1- [phone] Encounter Details Date Type Department Care Team (Late st Contact Info) Description 08/10/2023 Clinical Communication Division of Nephrology and Hypertension in [place], [place] [address] [place] [address] Kanwal Roberts, RJosé LuisNJosé Luis [address] [place] [phone] Social History Tobacco Use Types Packs/Day Years [...] How often do you attend chur or shinto services? Never 07/28/2022 Do you [...] Assigned at Male 05/13/2021 10:11 AM ELECTRICAL RESEARCH ENGINEER Gender Identity Male 11/02/2017 7:22 PM [...] Surgery: New date of 09/28/2023. Surgical Checklist ([id number]): Has been reviewed with the patient on [...] AM CDT Clinical Communication Virtual Review in [place], [place] 200 [place] [address] 09/10/2023 1:00 PM CDT Appointment Department of Radiology in [place] [address] [place] [address] Sera Casiano M.D., Ph.D. [address] [place] [phone] Discharge Disposition: Home or Self Care 09/10/2023 1:20 PM CDT Appointment Department of Laboratory Medicine in [place] [address] [place] [address] Sera Casiano M.D., Ph.D. [address] [place] [phone] 09/10/2023 2:30 PM CDT Ancillary Procedure Department of Cardiovascular Diseases in [address] [address] Clover Delaney M.D. 701 [place] [phone] Discharge Disposition: Home or Self Care 10/01/2023 9:30 AM CDT Comprehensive Visit Department of Cardiovascular Diseases in [place], [place] [address] [place] [phone] Nikko Dey M.D. [address] [place] [phone] Discharge Disposition: Home or Self Care 10/05/2023 1:30 PM CDT Comprehensive Visit Division of Pulmonary Medicine in [place], [place] [address] [place] [address] Luis Carrion M.B.B.S. [address] [place] [address] 10/27/2023 2:25 PM CDT Appointment Department of Cardiovascular Diseases in [place], [place] [address] [place] [address] Clover Delaney M.D. [address] [place] [phone] Discharge Disposition: Home or Self Care documented as of this encounter Visit Diagnoses Not on filedocumented in this encounter Additional Health Concerns Assessment Noted Time PHQ-9 Depression Total Score: 4 06/06/19 23 2:04 PM ELECTRICAL RESEARCH ENGINEER documented as of this encounter Care Teams Toaster Element Repairer Relationship Specialty Start Date End Date Clover Delaney M.D. [address] [place] [phone] PCP - General Internal Medicine 11/23/17 documented as of this encounter
--- OUTSIDE RECORDS SUMMARY | 2023-09-09 17:43 | XMS_ITS | Encounter Summary ---
Author Name Unknown Organization [facility] Address [address] [place] [address] Care Team Providers Care Jet Mechanic Name Role Phone Clover Delaney M.D. Primary Care Provider +1- [phone] Reason for Visit * Reason Onset Date Comments Bradycardia 08/16/2023 Weakness - Generalized 08/16/2023 Encounter Details Date Type Department Care Team (Late st Contact Info) Description 08/16/2023 Nurse Triage Department of Community Internal Medicine in [address] [place] [phone] Philomena Raya, R.N. Bradycardia; Weakness - Generalized [...] Sex Assigned at Male 05/13/2021 10:11 AM CHECKER AND PACKER Gender Identity Male 11/02/2017 7:22 PM [...] minute) Protocols used: Heart Rate and Heartbeat [id number] Care Advice Patient/Caregiver understands and will follow care advice?: Yes, able to teach back Heart Rate and Heartbeat [id number] Philomena Raya R.N. Sun Aug 16, 2023 12:46 PM Care Advice CALL EMS 911 NOW: documented in this encounter Plan of Treatment Upcoming Encounters Date Type Department Care Team (Latest Contact Info) Description 09/10/2023 10:45 AM CDT Clinical Communication Virtual Review in [place], [place] 200 [place] [address] 09/10/2023 1:00 PM CDT Appointment Department of Radiology in [place] [address] [place] [phone] Sera Casiano M.D., Ph.D. [address] [place] [phone] Discharge Disposition: Home or Self Care 09/10/2023 1:20 PM CDT Appointment Department of Laboratory Medicine in [place] [address] [place] [phone] Sera Casiano M.D., Ph.D. [address] [place] [address] 09/10/2023 2:30 PM CDT Ancillary Procedure Department of Cardiovascular Diseases in [address] [phone] Clover Delaney M.D. [address] [place] [phone] Discharge Disposition: Home or Self Care 10/01/2023 9:30 AM CDT Comprehensive Visit Department of Cardiovascular Diseases in [address] [phone] Nikko Dey M.D. [address] [place] [phone] Discharge Disposition: Home or Self Care 10/05/2023 1:30 PM CDT Comprehensive Visit Division of Pulmonary Medicine in [place], [place] [address] [place] [phone] Luis Carrion M.B.B.S. [address] [place] [phone] 10/27/2023 2:25 PM CDT Appointment Department of Cardiovascular Diseases in [place], [place] [address] [place] [phone] Clover Delaney M.D. [address] [place] [phone] Discharge Disposition: Home or Self Care documented as of this encounter Visit Diagnoses Not on filedocumented in this encounter Additional Health Concerns Assessment Noted Time PHQ-9 Depression Total Score: 4 06/06/19 23 2:04 PM CHECKER AND PACKER documented as of this encounter Care Teams Jet Mechanic Relationship Specialty Start Date End Date Clover Delaney M.D. 701 [place] [phone] PCP - General Internal Medicine 11/23/17 documented as of this encounter
--- OUTSIDE RECORDS SUMMARY | 2023-09-09 17:43 | XMS_ITS | Encounter Summary ---
Author Name Unknown Organization [facility] Address [address] [place] [address] Care Team Providers Care Firer Low Pressure Name Role Phone Clover Delaney M.D. Primary Care Provider +1- [phone] Reason for Referral * Outpatient (Routine) - Authorized Specialty Diagnoses / Procedures Referred By Contac t Referred To Contact Diagnoses Preoperative Exam Procedures ECG 12 Lead Sera Casiano M.D., Ph.D. 200 [place] [address] [facility] Referral ID Status Reason Start Date Expiration Date V isits Requested Visits Authorized [id number] Authorized 08/05/2023 08/04/2024 1 1 Reason for Visit * Appointment Request (Routine) - Closed Specialty Diagnoses / Procedures Referred By Yenny t Referred To Contact Nephrology and Hypertension Referral ID Status Reason Start Date Expiration Date Visits Re quested Visits Authorized [id number] Closed 07/03/2023 07/02/2024 1 1 Encounter Details Date Type Department Care Team (Latest Contact Info) Description 08/05/2023 4:00 PM CDT External Outreach Division of Nephrology and Hypertension in [place], [place] 200 [place] [phone] Sera Casiano M.D., Ph.D. 200 [place] [address] Chronic Kidney Disease Stage 5 Glomerular Filtration [...] Answer Date Recorded PHQ-2 Score 2 05/28/2023 [facility] [place] of Occupat ional Health - Occupational Stress [...] Sex Assigned at Male 05/13/2021 10:11 AM OFFICE MACHINE SERVICER Gender Identity Male 11/02/2017 7:22 PM CDT Sexual Orientation Straight 11/02/2017 7: 22 PM CDT documented as of this encounter Progress Notes * Sera Casiano M.D., Ph.D. - 08/05/2023 4:00 PM CDT PROGRESS NOTE SUBJECTIVE CHIEF COMPLAINT / REASON FOR VISIT Follow up CKD 5 [facility] Outreach Visit Location: [facility] HISTORY OF PRESENT ILLNESS Philip Patel is [...] anemia management Return visit in August at [facility] Jessica Hyman M.D., Ph.D. * Sera [...] less] Plan to repeat Potassium on 09/02/2023 [facility] - Required the day of the procedure [...] AM CDT Clinical Communication Virtual Review in [place], [place] 200 [place] [address] 09/10/2023 1:00 PM CDT Appointment Department of Radiology in [place] [address] [place] [phone] Sera Casiano M.D., Ph.D. [address] [place] [phone] Discharge Disposition: Home or Self Care 09/10/2023 1:20 PM CDT Appointment Department of Laboratory Medicine in [place] [address] [place] [phone] Sera Casiano M.D., Ph.D. [address] [place] [phone] 09/10/2023 2:30 PM CDT Ancillary Procedure Department of Cardiovascular Diseases in [address] [phone] Clover Delaney M.D. [address] [place] [phone] Discharge Disposition: Home or Self Care 10/01/2023 9:30 AM CDT Comprehensive Visit Department of Cardiovascular Diseases in [address] [phone] Nikko Dey M.D. 701 [place] [phone] Discharge Disposition: Home or Self Care 10/05/2023 1:30 PM CDT Comprehensive Visit Division of Pulmonary Medicine in [place], [place] [address] [place] [phone] Luis Carrion M.B.BJosé LuisS. [address] [place] [phone] 10/27/2023 2:25 PM CDT Appointment Department of Cardiovascular Diseases in [place], [place] [address] [place] [phone] Clover Delaney M.D. [address] [place] [phone] Discharge Disposition: Home or Self Care Scheduled [...] Total Score: 4 06/06/19 23 2:04 PM OFFICE MACHINE SERVICER documented as of this encounter Care Teams Firer Low Pressure Relationship Specialty Start Date End Date Clover Delaney M.D. [address] [place] [phone] PCP - General Internal Medicine 11/23/17 documented as of this encounter
--- OUTSIDE RECORDS SUMMARY | 2023-09-09 17:43 | XMS_ITS | Encounter Summary ---
Author Name Unknown Organization [facility] Address [address] [place] [address] Care Team Providers Care Fisheries Diver Name Role Phone Clover Delaney M.D. Primary Care Provider +1- [phone] Reason for Visit * Reason Comments Med Refill Encounter Details Date Type Department Care Team (Late st Contact Info) Description 08/17/2023 Refill Department of Community Internal Medicine in [address] [place] [phone] Clover Delaney M.D. 70 [place] [phone] Med Refill Social History Tobacco [...] Answer Date Recorded PHQ-2 Score 2 05/28/2023 [facility] [place] of Occupat ional Health - Occupational Stress [...] Sex Assigned at Male 05/13/2021 10:11 AM GREETER Gender Identity Male 11/02/2017 7:22 PM CDT Sexual Orientation Straight 11/02/2017 7: 22 PM CDT documented as of this encounter Miscellaneous Notes * Telephone Encounter - Mango Laura Sterling - 08/18/2023 8:42 AM CDT Lab Results [...] AM CDT Clinical Communication Virtual Review in [place], [place] 200 [place] [address] 09/10/2023 1:00 PM CDT Appointment Department of Radiology in [address] [place] [phone] Sera Casiano M.D., Ph.D. [address] [place] [phone] Discharge Disposition: Home or Self Care 09/10/2023 1:20 PM CDT Appointment Department of Laboratory Medicine in [place] [address] [place] [address] Sera Casiano M.D., Ph.D. [address] [place] [phone] 09/10/2023 2:30 PM CDT Ancillary Procedure Department of Cardiovascular Diseases in [address] [phone] Clover Delaney M.D. [address] [place] [phone] Discharge Disposition: Home or Self Care 10/01/2023 9:30 AM CDT Comprehensive Visit Department of Cardiovascular Diseases in [place], [place] [address] [place] [phone] Nikko Dey M.D. 701 [place] [phone] Discharge Disposition: Home or Self Care 10/05/2023 1:30 PM CDT Comprehensive Visit Division of Pulmonary Medicine in [place], [place] [address] [place] [address] Luis Carrion M.B.B.S. [address] [place] [address] 10/27/2023 2:25 PM CDT Appointment Department of Cardiovascular Diseases in [place], [place] [address] [place] [address] Clover Delaney M.D. 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 [address] [place] [phone] PCP - General Internal Medicine 11/23/17 documented as of this encounter
--- OUTSIDE RECORDS SUMMARY | 2023-09-09 17:43 | XMS_ITS | Encounter Summary ---
Author Name Unknown Organization [facility] Address [address] [place] [address] Care Team Providers Care Arch Cushion Press Operator Name Role Phone Clover Delaney M.D. Primary Care Provider +1- [phone] Reason for Referral * Outpatient (Routine) - Closed Specialty Diagnoses / Procedures Referred By Contac t Referred To Contact Nephrology and Hypertension / Dialysis Diagnoses Chronic Kidney Disease Stage 5 Glomerular Filtration Rate Less Than 15 (HCC) Sera Casiano M.D., Ph.D. [address] [place] [phone] [facility] Referral ID Status Reason Start Date Expiration Date Visits Re quested Visits Authorized [id number] Closed 06/26/2023 12/25/2024 1 1 Reason for Visit * Outpatient (Routine) - Closed Specialty Diagnoses / Procedures Referred By Contanthony t Referred To Contact Nephrology and Hypertension / Dialysis Diagnoses Chronic Kidney Disease Stage 5 Glomerular Filtration Rate Less Than 15 (HCC) Sera Casiano M.D., Ph.D. [address] [place] [phone] [facility] Referral ID Status Reason Start Date Expiration Date Visits Re quested Visits Authorized [id number] Closed 06/26/2023 12/25/2024 1 1 Encounter Details Date Type Department Care Team (Latest Contact Info) Description 07/29/2023 2:40 PM CDT - 07/29/2023 11:59 PM CDT Hospital Encounter Division of Nephrology and Hypertension, [facility], in [place], [place] [address] [place] [address] Sera Casiano M.D., Ph.D. [address] [place] [phone] Sandeep Kuo M.D., Ph.D. [address] [place] [phone] Chronic Kidney Disease Stage 5 Glomerular Filtration [...] week 07/28/2022 How often do you attend [facility] or confucianism services? Never 07/28/2022 Do [...] Recorded PHQ-2 Score 2 05/28/2023 [facility] of Occupat ional Health [...] Sex Assigned at Male 05/13/2021 10:11 AM DISPATCHER BUS AND TROLLEY Gender Identity Male 11/02/2017 7:22 PM CDT [...] mouth as needed. miscellaneous medical supply [facility] CPAP Supplies See Instructions, CPAP machine, mask 1 ea x 4 refills, headgear 1 ea x 2 refills, tubing 1 ea x 4 refills, filters 2 ea per month, tub 1 ea x 2 refills, mask seal 1 ea x 2 refills DX G47.33, length of need 99, 1 each, 0 Refill(s) 10/20/2016 miscellaneous medical supply [facility] Head Gear for CPAP Machine See Instructions, fax to patient at [phone], 1 each 01/17/2014 MULTIVITAMIN ORAL Daily Multiple Vitamins See Instructions, Take 1 tablet by mouth daily. 07/23/2013 ONETOUCH DELICA LANCETS 33 gauge [facility] 3 08/02/2018 OneTouch Ultra Test StripsIndications:Diabet es [...] an outpatient under MAC anesthesia here at [facility] on Sep 03 2023. All questions were answered and consent was obtained here from the patient in the presence of his . documented in this encounter Plan of Treatment Upcoming Encounters Date Type Department Care Team (Latest Contact Info) Description 09/10/2023 10:45 AM CDT Clinical Communication Virtual Review in [place], [place] 200 [place] [address] 09/10/2023 1:00 PM CDT Appointment Department of Radiology in [place] [address] [place] [phone] Sera Casiano M.D., Ph.D. [address] [place] [phone] Discharge Disposition: Home or Self Care 09/10/2023 1:20 PM CDT Appointment Department of Laboratory Medicine in [place] [address] [place] [phone] Sera Casiano M.D., Ph.D. [address] [place] [phone] 09/10/2023 2:30 PM CDT Ancillary Procedure Department of Cardiovascular Diseases in [address] [phone] Clover Delaney M.D. [address] [place] [phone] Discharge Disposition: Home or Self Care 10/01/2023 9:30 AM CDT Comprehensive Visit Department of Cardiovascular Diseases in [place], [place] 701 [place] [phone] Nikko Dey M.D. 701 [place] [phone] Discharge Disposition: Home or Self Care 10/05/2023 1:30 PM CDT Comprehensive Visit Division of Pulmonary Medicine in [place], [place] [address] [place] [address] Luis Carrion M.B.BJosé LuisS. [address] [place] [address] 10/27/2023 2:25 PM CDT Appointment Department of Cardiovascular Diseases in [place], [place] [address] [place] [address] Clover Delaney M.D. [address] [place] [phone] Discharge Disposition: Home or Self Care Scheduled [...] Total Score: 4 06/06/19 23 2:04 PM DISPATCHER BUS AND TROLLEY documented as of this encounter Care Teams Arch Cushion Press Operator Relationship Specialty Start Date End Date Clover Delaney M.D. [address] [place] [phone] PCP - General Internal Medicine 11/23/17 documented as of this encounter
--- OUTSIDE RECORDS SUMMARY | 2023-09-09 17:43 | XMS_ITS | Encounter Summary ---
Author Name Unknown Organization [facility] Address [address] [place] [address] Care Team Providers Care Family Resource Coordinator Name Role Phone Clover Delaney M.D. Primary Care Provider [phone]- [phone] Reason for Referral * Outpatient (Routine) - Authorized Specialty Diagnoses / Procedures Referred By Yenny hunter Referred To Contact Diagnoses Atrial Fibrillation Unspecified (HCC) Hypertensive Chronic Kidney Disease With Stage 5 Chronic Kidney Disease Or End Stage Renal Disease, Chronic Kidney Disease Stage 5 (HCC) Procedures Echo Transthoracic (TTE) Clover Delaney M.D. [address] [place] [address] [facility] Referral ID Status Reason Start Date Expiration Date V isits Requested Visits Authorized [id number] Authorized 08/19/2023 08/18/2024 1 1 * Outpatient (Routine) - Authorized Specialty Diagnoses / Procedures Referred By Yenny hunter Referred To Contact Diagnoses Atrial Fibrillation Unspecified (HCC) Hypertensive Chronic Kidney Disease With Stage 5 Chronic Kidney Disease Or End Stage Renal Disease, Chronic Kidney Disease Stage 5 (HCC) Procedures ECG Heart rhythm monitor (Holter) Clover Delaney M.D. [address] [place] [address] [facility] Region Referral ID Status Reason Start Date Expiration Date V isits Requested Visits Authorized [id number] Authorized 08/19/2023 08/18/2024 1 1 * Outpatient (Routine) - Closed Specialty Diagnoses / Procedures Referred By Contac t Referred To Contact Diagnoses Atrial Fibrillation Unspecified (HCC) Hypertensive Chronic Kidney Disease With Stage 5 Chronic Kidney Disease Or End Stage Renal Disease, Chronic Kidney Disease Stage 5 (HCC) Procedures ECG 12 Lead Clover Delaney M.D. [address] [place] [address] [facility] Region Referral ID Status Reason Start Date Expiration Date Visits Re quested Visits Authorized [id number] Closed 08/19/2023 08/18/2024 1 1 * Outpatient (Routine) - Closed Specialty Diagnoses / Procedures Referred By Contac t Referred To Contact Diagnoses Atrial Fibrillation Unspecified (HCC) Hypertensive Chronic Kidney Disease With Stage 5 Chronic Kidney Disease Or End Stage Renal Disease, Chronic Kidney Disease Stage 5 (HCC) Procedures DX Chest AP or PA and Lateral 2 Views Clover Delaney M.D. [address] [place] [address] [facility] Region Referral ID Status Reason Start Date Expiration Date Visits Re quested Visits Authorized [id number] Closed 08/19/2023 08/18/2024 1 1 Encounter Details Date Type Department Care Team (Late st Contact Info) Description 08/19/2023 Orders Only Department of Community Internal Medicine in [address] [place] [address] Clover Delaney M.D. [address] [place] [phone] Atrial Fibrillation Unspecified (HCC) (Primary Dx); Hypertensive [...] Maybe one drink per month [facility] oort Incities Answer Date Recorded In the past 12 months has e electric, gas, oil, or water [employer] threatened to shut off services in [...] Answer Date Recorded PHQ-2 Score 2 05/28/2023 [facility] [place] of Occupat ional Health - Occupational Stress [...] Assigned at Male 05/13/2021 10:11 AM HEALTH INFORMATION INTERNSHIP Gender Identity Male 11/02/2017 7:22 PM CDT Sexual Orientation Straight 11/02/2017 7: 22 PM CDT documented as of this encounter Plan of Treatment Upcoming Encounters Date Type Department Care Team (Latest Contact Info) Description 09/10/2023 10:45 AM CDT Clinical Communication Virtual Review in [place], [place] 200 [place] [address] 09/10/2023 1:00 PM CDT Appointment Department of Radiology in [place] [address] [place] [address] Sera Casiano M.D., Ph.D. [address] [place] [phone] Discharge Disposition: Home or Self Care 09/10/2023 1:20 PM CDT Appointment Department of Laboratory Medicine in [place] [address] [place] [address] Sera Casiano M.D., Ph.D. [address] [place] [phone] 09/10/2023 2:30 PM CDT Ancillary Procedure Department of Cardiovascular Diseases in [address] [phone] Clover Delaney M.D. [address] [place] [phone] Discharge Disposition: Home or Self Care 10/01/2023 9:30 AM CDT Comprehensive Visit Department of Cardiovascular Diseases in [place], [place] 701 [place] [phone] Nikko Dey M.D. 701 [place] [phone] Discharge Disposition: Home or Self Care 10/05/2023 1:30 PM CDT Comprehensive Visit Division of Pulmonary Medicine in [place], [place] [address] [place] [address] Luis Carrion M.B.B.S. [address] [place] [phone] 10/27/2023 2:25 PM CDT Appointment Department of Cardiovascular Diseases in [place], [place] [address] [place] [address] Clover Delaney M.D. [address] [place] [phone] Discharge Disposition: Home or Self Care Scheduled [...] mediastinal contours. Comparison 04/30/2018. Clover Delaney M.D. [facility] DIAGNOSTIC IMAG ING PROCEDURES * ECG 12 Lead (08/20/2023 3:30 PM CDT) Ventricular Rate ECG/Min 50 BPM MUSE QRSD Interval 102 ms MUSE QT Interval 472 ms MUSE QTC Interval 430 ms MUSE R Marne -12 degrees MUSE T Wave Marne 128 degrees MUSE 08/20/2023 3:30 PM CDT [...] CDT Clover Delaney M.D. LAB BLOOD ADD-ON [facility] [address] [place] [address], [facility] in [place] [address] [place] [address] * Thyroid Function Hunter (08/20/2023 3:17 PM CDT) Pathologist [facility] TSH, Sensitive 2.7 0.3 - 4.2 mIU/L 08/20/2023 8:07 PM CDT [facility] Blood (Blood, Venous) 08/20/2023 3:17 PM CDT 08/20/2023 7:01 PM CDT Clover Delaney M.D. LAB BLOOD ADD-ON [facility] [address] [place] [address], [facility] in [place] [address] [place] [address] * (ABNORMAL) Comprehensive Metabolic Panel (08/20/2023 3:17 [...] CDT Clover Delaney M.D. LAB BLOOD ADD-ON [facility] [address] [place] [address], [place] [facility] [place] [address] * (ABNORMAL) CBC without Differential (08/20/2023 3:17 [...] CDT Clover Delaney M.D. LAB BLOOD ADD-ON [facility] [address] [place] [address], [place] [facility] [place] [address] documented in this encounter Visit Diagnoses Diagnosis [...] Score: 4 06/06/19 23 2:04 PM HEALTH INFORMATION INTERNSHIP documented as of this encounter Care Teams Family Resource Coordinator Relationship Specialty Start Date End Date Clover Delaney M.D. [address] [place] [phone] PCP - General Internal Medicine 11/23/17 documented as of this encounter
--- OUTSIDE RECORDS SUMMARY | 2023-09-09 17:43 | XMS_ITS | Encounter Summary ---
Author Name Unknown Organization [facility] Address [address] [place] [address] Care Team Providers Care Plunger Shovel Operator Name Role Phone Clover Delaney M.D. Primary Care Provider +1- [phone] Encounter Details Date Type Department Care Team (Late st Contact Info) Description 07/29/2023 Documentation Division of Nephrology and Hypertension in [place], [place] [address] [place] [address] Kanwal Roberts, RLance [address] [place] [phone] Social History Tobacco Use Types Packs/Day Years [...] How often do you attend chur or adventism services? Never 07/28/2022 Do you [...] Sex Assigned at Male 05/13/2021 10:11 AM NAVAL AIRCREWMAN AVIONICS Gender Identity Male 11/02/2017 7:22 PM CDT [...] 09/03/2023. Checklist: The Checklist for Surgical Patients ([id number]) was given to the patient with the following instructions: Report to [facility] admissions at the time told [...] on 08/04 at 3:45 pm at the [facility]. Other: INFORMED CONSENT Patient signed the consent form electronically. documented in this encounter Plan of Treatment Upcoming Encounters Date Type Department Care Team (Latest Contact Info) Description 09/10/2023 10:45 AM CDT Clinical Communication Virtual Review in [place], [place] 200 [place] [address] 09/10/2023 1:00 PM CDT Appointment Department of Radiology in [place] [address] [place] [address] [phone] Sera Casiano M.D., Ph.D. [address] [place] [phone] Discharge Disposition: Home or Self Care 09/10/2023 1:20 PM CDT Appointment Department of Laboratory Medicine in [place] [address] [place] [address] [phone] Sera Casiano M.D., Ph.D. [address] [place] [address] 09/10/2023 2:30 PM CDT Ancillary Procedure Department of Cardiovascular Diseases in [address] [phone] Clover Delaney M.D. [address] [place] [phone] Discharge Disposition: Home or Self Care 10/01/2023 9:30 AM CDT Comprehensive Visit Department of Cardiovascular Diseases in [address] [phone] Nikko Dey M.D. [address] [place] [phone] Discharge Disposition: Home or Self Care 10/05/2023 1:30 PM CDT Comprehensive Visit Division of Pulmonary Medicine in [place], [place] [address] [place] [phone] Luis Carrion M.B.B.S. [address] [place] [phone] 10/27/2023 2:25 PM CDT Appointment Department of Cardiovascular Diseases in [place], [place] [address] [place] [phone] Clover Delaney M.D. [address] [place] [phone] Discharge Disposition: Home or Self Care documented as of this encounter Visit Diagnoses Not on filedocumented in this encounter Additional Health Concerns Assessment Noted Time PHQ-9 Depression Total Score: 4 06/06/19 23 2:04 PM NAVAL AIRCREWMAN AVIONICS documented as of this encounter Care Teams Plunger Shovel Operator Relationship Specialty Start Date End Date Clover Delaney M.D. 701 [place] [address] PCP - General Internal Medicine 11/23/17 documented as of this encounter
--- OUTSIDE RECORDS SUMMARY | 2023-09-09 17:43 | XMS_ITS | Encounter Summary ---
Author Name Unknown Organization [facility] Address [address] [place] [address] Care Team Providers Care Weather Strip Mechanic Name Role Phone Clover Delaney M.D. Primary Care Provider +1- [phone] Reason for Referral * Outpatient (Routine) - Closed Specialty Diagnoses / Procedures Referred By Contac t Referred To Contact Diagnoses Chronic Kidney Disease Stage 5 Glomerular Filtration Rate Less Than 15 (HCC) Procedures US Upper Extremity Bilateral Dialysis Mapping Sera Casiano M.D., Ph.D. [address] [place] [phone] [facility] Referral ID Status Reason Start Date Expiration Date Visits Re quested Visits Authorized [id number] Closed 06/26/2023 06/25/2024 1 1 Reason for Visit * Outpatient (Routine) - Closed Specialty Diagnoses / Procedures Referred By Contanthony t Referred To Contact Diagnoses Chronic Kidney Disease Stage 5 Glomerular Filtration Rate Less Than 15 (HCC) Procedures US Upper Extremity Bilateral Dialysis Mapping Sera Casiano M.D., Ph.D. [address] [place] [phone] [facility] Referral ID Status Reason Start Date Expiration Date Visits Re quested Visits Authorized [id number] Closed 06/26/2023 06/25/2024 1 1 Encounter Details Date Type Department Care Team (Latest Contact Info) Description 07/29/2023 12:13 PM CDT - 07/29/2023 2:39 PM CDT Hospital Encounter Department of Radiology, [facility], in [place], [place] [address] [place] [address] Sera Casiano M.D., Ph.D. [address] [place] [address] Chronic Kidney Disease Stage 5 Glomerular Filtration [...] Answer Date Recorded PHQ-2 Score 2 05/28/2023 [facility] of Occupat ional [facility] - Occupational Stress Questionnaire Answer [...] Assigned at Male 05/13/2021 10:11 AM SENIOR INTERNAL AUDITOR Gender Identity Male 11/02/2017 7:22 PM CDT [...] by mouth as needed. miscellaneous medical supply [facility] CPAP Supplies See Instructions, CPAP machine, mask 1 ea x 4 refills, headgear 1 ea x 2 refills, tubing 1 ea x 4 refills, filters 2 ea per month, tub 1 ea x 2 refills, mask seal 1 ea x 2 refills DX G47.33, length of need 99, 1 each, 0 Refill(s) 10/20/2016 miscellaneous medical supply [facility] Head Gear for CPAP Machine See Instructions, fax to patient at [phone], 1 each 01/17/2014 MULTIVITAMIN ORAL Daily Multiple Vitamins See Instructions, Take 1 tablet by mouth daily. 07/23/2013 ONETOUCH DELICA LANCETS 33 gauge [facility] 3 08/02/2018 OneTouch Ultra [...] AM CDT Clinical Communication Virtual Review in [place], [place] 200 [place] [address] 09/10/2023 1:00 PM CDT Appointment Department of Radiology in [address] [place] [address] Sera Casiano M.D., Ph.D. [address] [place] [phone] Discharge Disposition: Home or Self Care 09/10/2023 1:20 PM CDT Appointment Department of Laboratory Medicine in [address] [place] [address] Sera Casiano M.D., Ph.D. [address] [place] [address] 09/10/2023 2:30 PM CDT Ancillary Procedure Department of Cardiovascular Diseases in [address] [phone] Clover Delaney M.D. 707 [place] [phone] Discharge Disposition: Home or Self Care 10/01/2023 9:30 AM CDT Comprehensive Visit Department of Cardiovascular Diseases in [place], [place] 701 [place] [phone] Nikko Dey M.D. 701 [place] [phone] Discharge Disposition: Home or Self Care 10/05/2023 1:30 PM CDT Comprehensive Visit Division of Pulmonary Medicine in [place], [place] [address] [place] [address] Luis Carrion M.B.BJosé LuisS. [address] [place] [phone] 10/27/2023 2:25 PM CDT Appointment Department of Cardiovascular Diseases in [place], [place] [address] [place] [phone] Clover Delaney M.D. 701 [place] [phone] Discharge Disposition: Home or Self Care documented [...] Score: 4 06/06/19 23 2:04 PM SENIOR INTERNAL AUDITOR documented as of this encounter Care Teams Weather Strip Mechanic Relationship Specialty Start Date End Date Clover Delaney M.D. [address] [place] [address] PCP - General Internal Medicine 11/23/17 documented as of this encounter
--- OUTSIDE RECORDS SUMMARY | 2023-09-09 17:44 | XMS_ITS | Encounter Summary ---
Author Name Unknown Organization [facility] Address [address] [place] [address] Care Team Providers Care Bill Cutter Name Role Phone Clover Delaney M.D. Primary Care Provider +1- [phone] Encounter Details Date Type Department Care Team (Late st Contact Info) Description 07/17/2023 Orders Only Division of Nephrology and Hypertension in [place], [place] [address] [place] [address] Sera Casiano M.D., Ph.D. [address] [place] [address] Social History Tobacco Use Types Packs/Day Years [...] Sex Assigned at Male 05/13/2021 10:11 AM WEB MOBILE DESIGNER Gender Identity Male 11/02/2017 7:22 PM CDT Sexual Orientation Straight 11/02/2017 7: 22 PM CDT documented as of this encounter Plan of Treatment Upcoming Encounters Date Type Department Care Team (Latest Contact Info) Description 09/10/2023 10:45 AM CDT Clinical Communication Virtual Review in [place], [place] 200 [place] [address] 09/10/2023 1:00 PM CDT Appointment Department of Radiology in [place] [address] [place] [address] Sera Casiano M.D., Ph.D. [address] [place] [phone] Discharge Disposition: Home or Self Care 09/10/2023 1:20 PM CDT Appointment Department of Laboratory Medicine in [place], [place] [address] [place] [address] Sera Casiano M.D., Ph.D. [address] [place] [phone] 09/10/2023 2:30 PM CDT Ancillary Procedure Department of Cardiovascular Diseases in [address] [phone] Clover Delaney M.D. [address] [place] [phone] Discharge Disposition: Home or Self Care 10/01/2023 9:30 AM CDT Comprehensive Visit Department of Cardiovascular Diseases in [address] [phone] Nikko Dye M.D. [address] [place] [phone] Discharge Disposition: Home or Self Care 10/05/2023 1:30 PM CDT Comprehensive Visit Division of Pulmonary Medicine in [place], [place] [address] [place] [phone] Luis Carrion M.B.B.S. [address] [place] [phone] 10/27/2023 2:25 PM CDT Appointment Department of Cardiovascular Diseases in [place], [place] [address] [place] [address] Clover Delaney M.D. 701 [place] [phone] Discharge Disposition: Home or Self Care documented as of this encounter Visit Diagnoses Not on filedocumented in this encounter Additional Health Concerns Assessment Noted Time PHQ-9 Depression Total Score: 4 06/06/19 23 2:04 PM WEB MOBILE DESIGNER documented as of this encounter Care Teams Bill Cutter Relationship Specialty Start Date End Date Clover Delaney M.D. 701 [place] [phone] PCP - General Internal Medicine 11/23/17 documented as of this encounter
--- OUTSIDE RECORDS SUMMARY | 2023-09-09 17:44 | XMS_ITS | Encounter Summary ---
Author Name Unknown Organization [facility] Address [address] [place] [address] Care Team Providers Care Outsole Flexer Name Role Phone Clover Delaney M.D. Primary Care Provider [phone]- [phone] Reason for Referral * Outpatient (Routine) - Authorized Specialty Diagnoses / Procedures Referred By Yenny hunter Referred To Contact Endocrinology Diagnoses Diabetes Mellitus Type 2 (HCC) Cammy Silva M.D. 200 [place] [address] [facility] Referral ID Status Reason Start Date Expiration Date V isits Requested Visits Authorized [id number] Authorized 06/29/2023 12/28/2024 1 1 LINING CLOSER * Medication Prior Authorization - Closed Specialty Diagnoses / Procedures Referred By Yenny hunter Referred To Contact Diagnoses Morbid Obesity (HCC) Cammy Silva M.D. [address] [place] [address] Referral ID Status Reason Start Date Expiration Date Visits Re quested Visits Authorized [id number] Closed 1 1 LINING CLOSER * Medication Prior Authorization - Authorized Specialty Diagnoses / Procedures Referred By Contanthony t Referred To Contact Diagnoses Morbid Obesity (HCC) Cammy Silva M.D. [address] [place] [phone] Referral ID Status Reason Start Date Expiration Date V isits Requested Visits Authorized [id number] Authorized 07/01/2023 06/30/2024 1 1 LINING CLOSER * Medication Prior Authorization - Closed Specialty Diagnoses / Procedures Referred By Yenny t Referred To Contact Diagnoses Morbid Obesity (HCC) Cammy Silva M.D. [address] [place] [phone] Referral ID Status Reason Start Date Expiration Date Visits Re quested Visits Authorized [id number] Closed 1 1 LINING CLOSER * Medication Prior Authorization - Closed Specialty Diagnoses / Procedures Referred By Yenny hunter Referred To Contact Diagnoses Morbid Obesity (HCC) Cammy Silva M.D. [address] [place] [phone] Referral ID Status Reason Start Date Expiration Date Visits Re quested Visits Authorized [id number] Closed 1 1 LINING CLOSER * Specialty Diagnoses / Procedures Referred By Contanthony t Referred To Contact Cammy Silva M.D. [address] [place] [phone] [facility] Referral ID Status Reason Start Date Expiration Date Visits Re quested Visits Authorized LINING CLOSER Reason for Visit * Outpatient (Routine) - Closed Specialty Diagnoses / Procedures Referred By Contac t Referred To Contact Endocrinology Diagnoses Hypertensive Chronic Kidney Disease With Stage 5 Chronic Kidney Disease Or End Stage Renal Disease, Chronic Kidney Disease Stage 5 (HCC) Proteinuria Sera Casiano M.D., Ph.D. [address] [place] [phone] [facility] Referral ID Status Reason Start Date Expiration Date Visits Re quested Visits Authorized [id number] Closed 05/29/2023 11/27/2024 1 1 Encounter Details Date Type Department Care Team (Latest Contact Info) Description 06/29/2023 1:30 PM TOE LINING CLOSER Comprehensive Visit Division of Endocrinology in [place], [place] [address] [place] [phone] Sera Casiano M.D., Ph.D. [address] [place] [phone] Cammy Silva M.D. [address] [place] [phone] Diabetes Mellitus Type 2 (HCC) (Primary [...] 05/28/2023 [facility] - Occupational Stress Questionnaire Answer Date Recorded [...] Sex Assigned at Male 05/13/2021 10:11 AM TOE LINING CLOSER Gender Identity Male 11/02/2017 7:22 PM CDT [...] lb 14.4 oz) 06/29/2023 1:19 P M TOE LINING CLOSER in shoes Height 176.9 cm (5' 9.65) 06/29/2023 1:19 PM CS T in shoes Body Mass Index 50.14 06/29/2023 1:19 PM TOE LINING CLOSER documented in this encounter Consult Notes * Cammy Silva M.D. - 06/29/2023 1:30 PM CST SUBJECTIVE CHIEF COMPLAINT / REASON FOR VISIT Philip Patel is a 77 y.o. male who presents for an evaluation of diabetes mellitus. HISTORY OF PRESENT ILLNESS This is a 77 year old male who comes with his from [place], [place] who has CKD stage 5, granulomatous [...] mg daily. He has been prescribed CGM Think Realtime Brionna 2 but unfortunately he has experienced [...] been following regularly with Ophthalmology here at [facility]. Last visit on 06/15/2023. 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 Case seen and discussed with Meter Installer And Remover Dr. Ochoa. Cammy Jacques MD Endocrinology Fellow Pager [phone] LINING CLOSER Associated attestation - Edmundo Ochoa M.D. - 06/29/2023 4:08 PM TOE LINING CLOSER I saw and evaluated the patient, participating in the thakkar portions of the service. I reviewed the fellow???s note. I agree with the fellow???s findings and plan. documented in this encounter Plan of Treatment Upcoming Encounters Date Type Department Care Team (Latest Contact Info) Description 09/10/2023 10:45 AM CDT Clinical Communication Virtual Review in [address] [address] 09/10/2023 1:00 PM CDT Appointment Department of Radiology in [place] [address] [place] [address] Sera Casiano M.D., Ph.D. [address] [place] [phone] Discharge Disposition: Home or Self Care 09/10/2023 1:20 PM CDT Appointment Department of Laboratory Medicine in [address] [place] [phone] Sera Casiano M.D., Ph.D. [address] [place] [phone] 09/10/2023 2:30 PM CDT Ancillary Procedure Department of Cardiovascular Diseases in [address] [phone] Clover Delaney M.D. [address] [place] [phone] Discharge Disposition: Home or Self Care 10/01/2023 9:30 AM CDT Comprehensive Visit Department of Cardiovascular Diseases in [address] [place] [phone] Nikko Dey M.D. 701 [place] [phone] Discharge Disposition: Home or Self Care 10/05/2023 1:30 PM CDT Comprehensive Visit Division of Pulmonary Medicine in [place], [place] [address] [place] [phone] Luis Carrion M.B.B.S. [address] [place] [phone] 10/27/2023 2:25 PM CDT Appointment Department of Cardiovascular Diseases in [place], [place] [address] [place] [phone] Clover Delaney M.D. 701 [place] [address] Discharge Disposition: Home or Self Care Scheduled [...] Total Score: 4 06/06/19 23 2:04 PM TOE LINING CLOSER documented as of this encounter Care Teams Outsole Flexer Relationship Specialty Start Date End Date Clover Delaney M.D. 701 [place] [phone] PCP - General Internal Medicine 11/23/17 documented as of this encounter
--- OUTSIDE RECORDS SUMMARY | 2023-09-09 17:44 | XMS_ITS | Encounter Summary ---
Author Name Unknown Organization [facility] Address [address] [place] [address] Care Team Providers Care Health Care Administrator Name Role Phone Clover Delaney M.D. Primary Care Provider [phone]- [phone] Reason for Visit * Reason Comments Med Refill Encounter Details Date Type Department Care Team (Late st Contact Info) Description 07/11/2023 Refill Division of Nephrology and Hypertension in [place], [place] [address] [place] [phone] Mónica Portillo, TRIXIE, C.N.P., M.S. [address] [place] [phone] Med Refill Social History Tobacco Use Types [...] PHQ-2 Score 2 05/28/2023 [facility] - Occupational [...] Sex Assigned at Male 05/13/2021 10:11 AM COREMAKER APPRENTICE Gender Identity Male 11/02/2017 7:22 PM CDT Sexual Orientation Straight 11/02/2017 7: 22 PM CDT documented as of this encounter Plan of Treatment Upcoming Encounters Date Type Department Care Team (Latest Contact Info) Description 09/10/2023 10:45 AM CDT Clinical Communication Virtual Review in [place], [place] 200 [place] [address] 09/10/2023 1:00 PM CDT Appointment Department of Radiology in [place] [address] [place] [address] Sera Casiano M.D., Ph.D. [address] [place] [phone] Discharge Disposition: Home or Self Care 09/10/2023 1:20 PM CDT Appointment Department of Laboratory Medicine in [place] [address] [place] [address] Sera Casiano M.D., Ph.D. [address] [place] [phone] 09/10/2023 2:30 PM CDT Ancillary Procedure Department of Cardiovascular Diseases in [address] [phone] Clover Delaney M.D. [address] [place] [phone] Discharge Disposition: Home or Self Care 10/01/2023 9:30 AM CDT Comprehensive Visit Department of Cardiovascular Diseases in [address] [phone] Nikko Dey M.D. [address] [place] [phone] Discharge Disposition: Home or Self Care 10/05/2023 1:30 PM CDT Comprehensive Visit Division of Pulmonary Medicine in [place], [place] [address] [place] [phone] Luis Carrion M.B.BJosé LuisS. [address] [place] [address] 10/27/2023 2:25 PM CDT Appointment Department of Cardiovascular Diseases in [place], [place] [address] [place] [address] Clover Delaney M.D. 701 [place] [phone] Discharge Disposition: Home or Self Care documented as of this encounter Visit Diagnoses Not on filedocumented in this encounter Additional Health Concerns Assessment Noted Time PHQ-9 Depression Total Score: 4 06/06/19 23 2:04 PM COREMAKER APPRENTICE documented as of this encounter Care Teams Health Care Administrator Relationship Specialty Start Date End Date Clover Delaney M.D. 701 [place] [phone] PCP - General Internal Medicine 11/23/17 documented as of this encounter
--- OUTSIDE RECORDS SUMMARY | 2023-09-09 17:44 | XMS_ITS | Encounter Summary ---
Author Name Unknown Organization [facility] Address [address] [place] [address] Care Team Providers Care Websphere Portal Developer Name Role Phone Clover Delaney M.D. Primary Care Provider [phone] Reason for Referral * Outpatient (Routine) - Authorized Specialty Diagnoses / Procedures Referred By Contac t Referred To Contact Clover Delaney M.D. [address] [place] [address] [facility] Region Referral ID Status Reason Start Date Expiration Date V isits Requested Visits Authorized [id number] Authorized 06/30/2023 12/29/2024 1 1 Scheduling Instructions Nurse AWV Do not schedule prior to due date to ensure insurance coverage Visit: Medicare Annual Wellness Never done. ST Encounter Details Date Type Department Care Team (Late st Contact Info) Description 06/30/2023 Orders Only [facility] Clover Delaney M.D. [address] [place] [address] Social History Tobacco Use Types [...] Answer Date Recorded PHQ-2 Score 2 05/28/2023 [facility] - Occupational Stress Questionnaire Answer Date [...] Sex Assigned at Male 05/13/2021 10:11 AM AURIST Gender Identity Male 11/02/2017 7:22 PM CDT Sexual Orientation Straight 11/02/2017 7: 22 PM CDT documented as of this encounter Plan of Treatment Upcoming Encounters Date Type Department Care Team (Latest Contact Info) Description 09/10/2023 10:45 AM CDT Clinical Communication Virtual Review in [place], [place] 200 [place] [address] 09/10/2023 1:00 PM CDT Appointment Department of Radiology in [place] [address] [place] [address] Sera Casiano M.D., Ph.D. [address] [place] [phone] Discharge Disposition: Home or Self Care 09/10/2023 1:20 PM CDT Appointment Department of Laboratory Medicine in [place] [address] [place] [address] Sera Casiano M.D., Ph.D. [address] [place] [phone] 09/10/2023 2:30 PM CDT Ancillary Procedure Department of Cardiovascular Diseases in [address] [phone] Clover Delaney M.D. [address] [place] [phone] Discharge Disposition: Home or Self Care 10/01/2023 9:30 AM CDT Comprehensive Visit Department of Cardiovascular Diseases in [address] [place] [phone] Nikko Dey M.D. [address] [place] [phone] Discharge Disposition: Home or Self Care 10/05/2023 1:30 PM CDT Comprehensive Visit Division of Pulmonary Medicine in [place], [place] [address] [place] [address] Luis Carrion M.B.BJosé LuisS. [address] [place] [address] 10/27/2023 2:25 PM CDT Appointment Department of Cardiovascular Diseases in [place], [place] [address] [place] [address] Clover Delaney M.D. [address] [place] [phone] Discharge Disposition: Home or Self Care Scheduled [...] Total Score: 4 06/06/19 23 2:04 PM AURIST documented as of this encounter Care Teams Websphere Portal Developer Relationship Specialty Start Date End Date Clover Delaney M.D. [address] [place] [phone] PCP - General Internal Medicine 11/23/17 documented as of this encounter
--- OUTSIDE RECORDS SUMMARY | 2023-09-09 17:44 | XMS_ITS | Encounter Summary ---
Author Name Unknown Organization [facility] Address [address] [place] [address] Care Team Providers Care Welfare Worker Name Role Phone Clover Delaney M.D. Primary Care Provider +1- [phone] Encounter Details Date Type Department Care Team (Latest Contact Info) Description 06/29/2023 11:47 AM PLASTER PATTERNMAKER - 06/29/2023 11:59 PM [facility] Hospital Encounter Department of Laboratory Medicine and Pathology, [facility], in [place], [place] [address] [place] [phone] Sera Casiano M.D., Ph.D. [address] [place] [phone] Hyperkalemia; Anemia Of Renal Failure Chronic Kidney [...] Score 2 05/28/2023 [facility] [place] of Occupat ional Health - Occupational Stress [...] Sex Assigned at Male 05/13/2021 10:11 AM PLASTER PATTERNMAKER Gender Identity Male 11/02/2017 7:22 PM CDT [...] by mouth as needed. miscellaneous medical supply [facility] CPAP Supplies See Instructions, CPAP machine, mask 1 ea x 4 refills, headgear 1 ea x 2 refills, tubing 1 ea x 4 refills, filters 2 ea per month, tub 1 ea x 2 refills, mask seal 1 ea x 2 refills DX G47.33, length of need 99, 1 each, 0 Refill(s) 10/20/2016 miscellaneous medical supply [facility] Head Gear for CPAP Machine See Instructions, fax to patient at [phone], 1 each 01/17/2014 MULTIVITAMIN ORAL Daily Multiple [...] mouth daily. 90 tablet 3 07/29/2022 07/13/2023 prednisoLONE acetate (PRED FORTE) 1 % ophthalmic [...] Virtual Review in [place], [place] 200 [place] [address] 09/10/2023 1:00 PM CDT Appointment Department of Radiology in [address] [place] [address] Sera Casiano M.D., Ph.D. [address] [place] [phone] Discharge Disposition: Home or Self Care 09/10/2023 1:20 PM CDT Appointment Department of Laboratory Medicine in [address] [place] [address] Sera Casiano M.D., Ph.D. [address] [place] [phone] 09/10/2023 2:30 PM CDT Ancillary Procedure Department of Cardiovascular Diseases in [address] [phone] Clover Delaney M.D. [address] [place] [phone] Discharge Disposition: Home or Self Care 10/01/2023 9:30 AM CDT Comprehensive Visit Department of Cardiovascular Diseases in [place], [place] 701 [place] [phone] Nikko Dye M.D. [address] [place] [phone] Discharge Disposition: Home or Self Care 10/05/2023 1:30 PM CDT Comprehensive Visit Division of Pulmonary Medicine in [place], [place] [address] [place] [phone] Luis Carrion M.B.BJosé LuisS. [address] [place] [phone] 10/27/2023 2:25 PM CDT Appointment Department of Cardiovascular Diseases in [place], [place] [address] [place] [phone] Clover Delaney M.D. 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 LAB BL OOD ADD-ON Performing Organization Address City/[facility]/ZIP Co de Phone Number [facility] 200 [place] [address], [facility]3] 200 [place] [address] * (ABNORMAL) Iron and Total Iron-Binding Capacity (06/29/2023 12:11 PM PLASTER PATTERNMAKER) Iron 51 50 - 150 mcg/dL 06/29/2023 1:44 PM PLASTER PATTERNMAKER DTL Total Iron Binding Capacity 221(L) 250 - 400 mcg/dL 06/29/2023 1:44 PM PLASTER PATTERNMAKER DTL Percent Saturation 23 14 - 50 % 06/29/2023 1:44 PM PLASTER PATTERNMAKER DTL Blood (Blood, Venous) 06/29/2023 12:11 PM PLASTER PATTERNMAKER 06/29/2023 12:47 PM PLASTER PATTERNMAKER Srea Hyman M.D., Ph.D. LAB BL OOD ADD-ON Performing Organization Address City/[facility]/ZIP Co de Phone Number [facility] 200 [place] [address], [facility]3] 200 [place] [address] * (ABNORMAL) Renal Function Panel (06/29/2023 12:11 PM PLASTER PATTERNMAKER) Potassium, S 4.5 3.6 - 5.2 mmol/L 06/29/2023 1:44 PM PLASTER PATTERNMAKER DTL Sodium, S 143 135 - 145 mmol/L 06/29/2023 1:44 PM PLASTER PATTERNMAKER DTL Chloride, S 104 98 - 107 mmol/L 06/29/2023 1:44 PM PLASTER PATTERNMAKER DTL Bicarbonate, S 24 22 - 29 mmol/L 06/29/2023 1:44 PM PLASTER PATTERNMAKER DTL Anion Gap 15 7 - 15 06/29/2023 1:44 PM PLASTER PATTERNMAKER DTL BUN (Blood Urea Nitrogen), S 69(H) 8 - 24 mg/dL 06/29/2023 1:44 PM PLASTER PATTERNMAKER DTL Creatinine 4.51(H) 0.74 - 1.35 mg/dL 06/29/2023 1:44 PM PLASTER PATTERNMAKER DTL Estimated GFR (eGFR) <15(L) >=60 mL/min/BSA 06/29/2023 1:44 PM PLASTER PATTERNMAKER DTL Comment: Estimated GFR calculated using the 2020 CKD_EPI creatinine equation. Calcium, Total, S 8.5(L) 8.8 - 10.2 mg/dL 06/29/2023 1:44 PM PLASTER PATTERNMAKER DTL Glucose, S 97 70 - 140 mg/dL 06/29/2023 1:44 PM PLASTER PATTERNMAKER DTL Albumin, S 4.0 3.5 - 5.0 g/dL 06/29/2023 1:44 PM PLASTER PATTERNMAKER DTL Phosphorus (Inorganic), S 4.9(H) 2.5 - 4.5 mg/dL 06/29/2023 1:44 PM PLASTER PATTERNMAKER DTL Blood (Blood, Venous) 06/29/2023 12:11 PM PLASTER PATTERNMAKER 06/29/2023 12:47 PM PLASTER PATTERNMAKER Sera Hyman M.D., Ph.D. 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 701 [place] [phone] PCP - General Internal Medicine 11/23/17 documented as of this encounter
--- OUTSIDE RECORDS SUMMARY | 2023-09-09 17:44 | XMS_ITS | Encounter Summary ---
Author Name Unknown Organization [facility] Address [address] [place] [address] Care Team Providers Care Ceramic Maker Demonstrator Name Role Phone Clover Delaney M.D. Primary Care Provider +1- [phone] Reason for Visit * Reason Comments home blood pressure monitor check * Outpatient (Routine) - Closed Specialty Diagnoses / Procedures Referred By Contanthony t Referred To Contact Nephrology and Hypertension Sera Casiano M.D., Ph.D. [address] [place] [phone] [facility] Referral ID Status Reason Start Date Expiration Date Visits Re quested Visits Authorized [id number] Closed 06/26/2023 12/25/2024 1 1 Encounter Details Date Type Department Care Team (Late st Contact Info) Description 07/10/2023 2:30 PM CDT Nurse Only Division of Nephrology and Hypertension in [place], [place] [address] [place] [phone] Sera Casiano M.D., Ph.D. [address] [place] [phone] Aislinn Sharma R.N. [address] [place] [phone] home blood pressure monitor check Social History [...] Answer Date Recorded PHQ-2 Score 2 05/28/2023 [facility] of Occupat ional [facility] - Occupational Stress Questionnaire Answer Date Recorded [...] Sex Assigned at Male 05/13/2021 10:11 AM DIESEL MECHANIC APPRENTICE Gender Identity Male 11/02/2017 7:22 PM [...] AM CDT Clinical Communication Virtual Review in [address] [phone] 09/10/2023 1:00 PM CDT Appointment Department of Radiology in [address] [place] [address] Sera Casiano M.D., Ph.D. [address] [place] [phone] Discharge Disposition: Home or Self Care 09/10/2023 1:20 PM CDT Appointment Department of Laboratory Medicine in [place] [address] [place] [address] Sera Casiano M.D., Ph.D. [address] [place] [phone] 09/10/2023 2:30 PM CDT Ancillary Procedure Department of Cardiovascular Diseases in [address] [phone] Clover Delaney M.D. [address] [place] [phone] Discharge Disposition: Home or Self Care 10/01/2023 9:30 AM CDT Comprehensive Visit Department of Cardiovascular Diseases in [address] [phone] Nikko Dey M.D. [address] [place] [phone] Discharge Disposition: Home or Self Care 10/05/2023 1:30 PM CDT Comprehensive Visit Division of Pulmonary Medicine in [place], [place] [address] [place] [phone] Luis Carrion M.B.B.S. [address] [place] [phone] 10/27/2023 2:25 PM CDT Appointment Department of Cardiovascular Diseases in [place], [place] [address] [place] [address] Clover Delaney M.D. [address] [place] [phone] Discharge Disposition: Home or Self Care documented as of this encounter Visit Diagnoses Diagnosis Hypertensive Chronic Kidney Disease With Stage 5 Chronic Kidney Disease Or End Stage Renal Disease, Chronic Kidney Disease Stage 5 (HCC)- Primary documented in this encounter Additional Health Concerns Assessment Noted Time PHQ-9 Depression Total Score: 4 06/06/19 23 2:04 PM DIESEL MECHANIC APPRENTICE documented as of this encounter Care Teams Ceramic Maker Demonstrator Relationship Specialty Start Date End Date Clover Delaney M.D. [address] [place] [phone] PCP - General Internal Medicine 11/23/17 documented as of this encounter
--- OUTSIDE RECORDS SUMMARY | 2023-09-09 17:44 | XMS_ITS | Encounter Summary ---
Author Name Unknown Organization [facility] Address [address] [place] [address] Care Team Providers Care Fabric And Textile Factory Worker Name Role Phone Clover Delaney M.D. Primary Care Provider +1- [phone] Reason for Visit * Outpatient (Routine) - Closed Specialty Diagnoses / Procedures Referred By Contanthony t Referred To Contact Nephrology and Hypertension Sera Casiano M.D., Ph.D. [address] [place] [phone] [facility] Referral ID Status Reason Start Date Expiration Date Visits Re quested Visits Authorized [id number] Closed 06/26/2023 12/25/2024 1 1 Encounter Details Date Type Department Care Team (Late st Contact Info) Description 07/17/2023 1:00 PM CDT Virtual Visit Division of Nephrology and Hypertension in [place], [place] [address] [place] [phone] Sera Casiano M.D., Ph.D. [address] [place] [address] [phone] Kanwal Roberts R.N. [address] [place] [phone] Chronic Kidney Disease Stage 5 Glomerular Filtration [...] 05/28/2023 [facility] of Occupat ional [facility] - Occupational Stress Questionnaire Answer Date [...] Sex Assigned at Male 05/13/2021 10:11 AM DESKTOP PUBLISHING OPERATOR Gender Identity Male 11/02/2017 7:22 PM [...] dialysis, but will likely do dialysis at [facility]). He next sees CKD provider on 08/05/2023. Significant Medical History: obesity, colon malignant neoplasm, DM2, KIMBER, etc PACEMAKER: None noted. DIABETES: DM2: Mounjaro injectable ANTICOAGULATION: Takes Aspirin only. LABORATORY RESULTS: Please see Shutl for current labs. BMI: Body mass index [...] the patient over the phone: Hemodialysis Catheters ([id number]),Hemodialysis Fistula and Graft ([id number]). I gave him an red/orange Save your [...] AM CDT Clinical Communication Virtual Review in [place], [place] 200 [place] [address] 09/10/2023 1:00 PM CDT Appointment Department of Radiology in [place] [address] [place] [address] Sera Casiano M.D., Ph.D. [address] [place] [phone] Discharge Disposition: Home or Self Care 09/10/2023 1:20 PM CDT Appointment Department of Laboratory Medicine in [place] [address] [place] [address] Sera Casiano M.D., Ph.D. [address] [place] [phone] 09/10/2023 2:30 PM CDT Ancillary Procedure Department of Cardiovascular Diseases in [address] [phone] Clover Delaney M.D. [address] [place] [phone] Discharge Disposition: Home or Self Care 10/01/2023 9:30 AM CDT Comprehensive Visit Department of Cardiovascular Diseases in [address] [phone] Nikko Dey M.D. [address] [place] [phone] Discharge Disposition: Home or Self Care 10/05/2023 1:30 PM CDT Comprehensive Visit Division of Pulmonary Medicine in [place], [place] [address] [place] [phone] Luis Carrion M.B.BJosé LuisS. [address] [place] [phone] 10/27/2023 2:25 PM CDT Appointment Department of Cardiovascular Diseases in [place], [place] [address] [place] [phone] Clover Delaney M.D. 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 701 [facility] [place] [phone] PCP - General Internal Medicine 11/23/17 documented as of this encounter
--- OUTSIDE RECORDS SUMMARY | 2023-09-09 17:44 | XMS_ITS | Encounter Summary ---
Author Name Unknown Organization [facility] Address [address] [place] [address] Care Team Providers Care Human Services Worker Name Role Phone Clover Delaney M.D. Primary Care Provider +1- [phone] Encounter Details Date Type Department Care Team (Latest Contact Info) Description 07/06/2023 9:06 AM CDT - 07/06/2023 11:59 PM CDT Hospital Encounter Department of Laboratory Medicine in [address] [place] [phone] Sera Casiano M.D., Ph.D. [address] [place] [address] Hypertension And Chronic Kidney Disease Stage 5 [...] often do you attend chur ch or religion services? Never 07/28/2022 Do you belong to [...] Recorded PHQ-2 Score 2 05/28/2023 [facility] of Occupat ional Health - Occupational Stress [...] Assigned at Male 05/13/2021 10:11 AM SURGICAL FIRST ASSISTANT Gender Identity Male 11/02/2017 7:22 PM [...] mouth as needed. miscellaneous medical supply [facility] CPAP Supplies See Instructions, CPAP machine, mask 1 ea x 4 refills, headgear 1 ea x 2 refills, tubing 1 ea x 4 refills, filters 2 ea per month, tub 1 ea x 2 refills, mask seal 1 ea x 2 refills DX G47.33, length of need 99, 1 each, 0 Refill(s) 10/20/2016 miscellaneous medical supply [facility] Head Gear for CPAP Machine See Instructions, fax to patient at [phone], 1 each 01/17/2014 MULTIVITAMIN ORAL Daily Multiple [...] AM CDT Clinical Communication Virtual Review in [place], [place] 200 [place] [address] 09/10/2023 1:00 PM CDT Appointment Department of Radiology in [place] [address] [place] [address] Sera Casiano M.D., Ph.D. [address] [place] [phone] Discharge Disposition: Home or Self Care 09/10/2023 1:20 PM CDT Appointment Department of Laboratory Medicine in [place] [address] [place] [phone] Sera Casiano M.D., Ph.D. [address] [place] [phone] 09/10/2023 2:30 PM CDT Ancillary Procedure Department of Cardiovascular Diseases in [address] [phone] Clover Delaney M.D. [address] [place] [phone] Discharge Disposition: Home or Self Care 10/01/2023 9:30 AM CDT Comprehensive Visit Department of Cardiovascular Diseases in [place], [place] 701 [place] [phone] Nikko Dey M.D. 701 [place] [phone] Discharge Disposition: Home or Self Care 10/05/2023 1:30 PM CDT Comprehensive Visit Division of Pulmonary Medicine in [place], [place] [address] [place] [phone] Luis Carrion M.B.B.S. [address] [place] [phone] 10/27/2023 2:25 PM CDT Appointment Department of Cardiovascular Diseases in [place], [place] [address] [place] [phone] Clover Delaney M.D. [address] [place] [phone] Discharge Disposition: Home or Self Care documented [...] Hyman M.D., Ph.D. LAB UR INE ORDERABLES [facility] [address] [place] [address], [facility] in [address] [phone] * (ABNORMAL) Protein/Creatinine Ratio, Random, Urine (07/06/2023 9:22 AM CDT) [facility] Protein, Total, Random, U 328 mg/dL 07/06/2023 1:30 PM CDT [facility] Creatinine, Random, U 68 16 - 326 mg/dL 07/06/2023 12:51 PM CDT [facility] Protein/Creati nine Ratio 4.82(H) <0.18 mg/mg 07/06/2023 1:30 PM CDT [facility] Urine (Urine, Midstream) 07/06/2023 9:22 AM CDT 07/06/2023 11:58 AM CDT Sera Hyman M.D., Ph.D. LAB UR INE ORDERABLES [facility] [address] [place] [address], [facility] in [address] [phone] * (ABNORMAL) Urinalysis, with Microscopic: Urine, Midstream [...] 8.0 07/06/2023 12:06 PM CDT [facility] Specific [place] 1.013 1.001 - 1.035 07/06/2023 12:06 PM [...] Hyman M.D., Ph.D. 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 [address] [place] [phone] PCP - General Internal Medicine 11/23/17 documented as of this encounter
--- OUTSIDE RECORDS SUMMARY | 2023-09-09 17:44 | XMS_ITS | Encounter Summary ---
Author Name Unknown Organization [facility] Address [address] [place] [address] Care Team Providers Care Hydro Generation Supervisor Name Role Phone Clover Delnaey M.D. Primary Care Provider +1- [phone] Encounter Details Date Type Department Care Team (Late st Contact Info) Description 06/30/2023 Orders Only Division of Nephrology and Hypertension in [place], [place] [address] [place] [address] Sera Casiano M.D., Ph.D. 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 [address] [place] [phone] Discharge Disposition: Home or Self Care 09/10/2023 1:20 PM CDT Appointment Department of Laboratory Medicine in [place] [address] [place] [phone] Sera Casiano M.D., Ph.D. [address] [place] [phone] 09/10/2023 2:30 PM CDT Ancillary Procedure Department of Cardiovascular Diseases in [address] [phone] Clover Delaney M.D. [address] [place] [phone] Discharge Disposition: Home or Self Care 10/01/2023 9:30 AM CDT Comprehensive Visit Department of Cardiovascular Diseases in [address] [phone] Nikko Dey M.D. [address] [place] [phone] Discharge Disposition: Home or Self Care 10/05/2023 1:30 PM CDT Comprehensive Visit Division of Pulmonary Medicine in [place], [place] [address] [place] [phone] Luis Carrion M.B.B.S. [address] [place] [address] 10/27/2023 2:25 PM CDT Appointment Department of Cardiovascular Diseases in [place], [place] [address] [place] [address] Clover Delaney M.D. 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 [address] [place] [phone] PCP - General Internal Medicine 11/23/17 documented as of this encounter
--- OUTSIDE RECORDS SUMMARY | 2023-09-09 17:44 | XMS_ITS | Encounter Summary ---
Author Name Unknown Organization [facility] Address [address] [place] [address] Care Team Providers Care Production Control Expediter Name Role Phone Clover Delaney M.D. 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 [address] [place] [phone] [facility] Referral ID Status Reason Start Date Expiration Date V isits Requested Visits Authorized [id number] Authorized 06/30/2023 12/29/2024 1 1 OR CYBER INTELLIGENCE ANALYST Encounter Details Date Type Department Care Team (Late st Contact Info) Description 06/30/2023 Orders Only Division of Nephrology and Hypertension in [place], [place] [address] [place] [address] Sera Casiano M.D., Ph.D. 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 [...] Answer Date Recorded PHQ-2 Score 2 05/28/2023 [facility] of Occupat ional Health [...] Assigned at Male 05/13/2021 10:11 AM SENIOR CYBER INTELLIGENCE ANALYST Gender Identity Male 11/02/2017 7:22 PM CDT Sexual Orientation Straight 11/02/2017 7: 22 PM CDT documented as of this encounter Plan of Treatment Upcoming Encounters Date Type Department Care Team (Latest Contact Info) Description 09/10/2023 10:45 AM CDT Clinical Communication Virtual Review in [place], [place] 200 [place] [phone] 09/10/2023 1:00 PM CDT Appointment Department of Radiology in [place] [address] [place] [phone] Sera Casiano M.D., Ph.D. [address] [place] [phone] Discharge Disposition: Home or Self Care 09/10/2023 1:20 PM CDT Appointment Department of Laboratory Medicine in [place] [address] [place] [phone] Sera Casiano M.D., Ph.D. [address] [place] [phone] 09/10/2023 2:30 PM CDT Ancillary Procedure Department of Cardiovascular Diseases in [address] [phone] Clover Delaney M.D. [address] [place] [phone] Discharge Disposition: Home or Self Care 10/01/2023 9:30 AM CDT Comprehensive Visit Department of Cardiovascular Diseases in [address] [phone] Nikko Dey M.D. [address] [place] [phone] Discharge Disposition: Home or Self Care 10/05/2023 1:30 PM CDT Comprehensive Visit Division of Pulmonary Medicine in [place], [place] [address] [place] [phone] Luis Carrion M.B.B.S. [address] [place] [phone] 10/27/2023 2:25 PM CDT Appointment Department of Cardiovascular Diseases in [place], [place] [address] [place] [phone] Clover Delaney M.D. [address] [place] [phone] Discharge Disposition: Home or Self Care Scheduled [...] the upper pole of the left kidney ([id number]). Hypertrophic changes in the spine. Mild degenerative [...] 07/29/2023 11:44 AM CDT DTL Predicted Range 2563-50093 mg/24 h 07/29/2023 11:44 AM CDT DTL Comment Micro done on <10 mL 07/29/2023 1:01 PM CDT DTL Urine (Urine, Midstream) 07/29/2023 10:27 AM CDT 07/29/2023 10:35 AM CDT Sera Hyman M.D., Ph.D. LAB UR INE ORDERABLES [facility] [address] [place] [address], [facility] [address] [place] [address] * (ABNORMAL) Uric Acid (07/29/2023 10:17 AM CDT) Uric Acid, S 11.2(H) 3.7 - 8.0 mg/dL 07/29/2023 12:32 PM CDT DTL Blood (Blood, Venous) 07/29/2023 10:17 AM CDT 07/29/2023 10:55 AM CDT Sera Hyman M.D., Ph.D. LAB BL OOD ADD-ON [facility] [address] [place] [address], [facility] [address] [place] [address] * Phosphorus Inorganic (07/29/2023 10:17 AM CDT) Phosphorus (Inorganic), S 4.5 2.5 - 4.5 mg/dL 07/29/2023 12:32 PM CDT DTL Blood (Blood, Venous) 07/29/2023 10:17 AM CDT 07/29/2023 10:55 AM CDT Sera Hyman M.D., Ph.D. LAB BL OOD ADD-ON Performing Organization Address City/[facility]/ZIP Co de Phone Number [facility] [address] [place], [place] [phone] [place] [address] [address] [place] [address] * (ABNORMAL) Glucose, Fasting (07/29/2023 10:17 AM CDT) Pathologist [facility] Glucose, P 256(H) 70 - 100 mg/dL 07/29/2023 11:15 AM CDT DTL Last Intake 16 hr 07/29/2023 10:52 AM CDT DTL Blood (Blood, Venous) 07/29/2023 10:17 AM CDT 07/29/2023 10:52 AM CDT Sera Hyman M.D., Ph.D. LAB BL OOD NON ADD-ON [facility] [address] [place] [address], [facility] [address] [place] [address] * CRP (C-Reactive Protein) (07/29/2023 10:17 AM CDT) C-Reactive Protein (CRP), S <3.0 <5.0 mg/L 07/29/2023 12:32 PM CDT DTL Blood (Blood, Venous) 07/29/2023 10:17 AM CDT 07/29/2023 10:55 AM CDT Sera Hyman M.D., Ph.D. LAB BL OOD ADD-ON [facility] [address] [place] [address], [facility] [address] [place] [address] * (ABNORMAL) Comprehensive Metabolic Panel (07/29/2023 10:17 AM CDT) Pathologist [facility] Potassium, S 4.2 3.6 - 5.2 mmol/L [...] Hyman M.D., Ph.D. LAB BL OOD ADD-ON [place] [address] [place] [address], [facility] 200 [place] [address] * (ABNORMAL) CBC with Differential, Blood (07/29/2023 [...] Hyman M.D., Ph.D. LAB BL OOD ADD-ON [facility] [address] [place] [address], [facility] DTL [facility] [address] [place] [address] [facility] [address] [place] [address] * ANCA (Antineutrophil Cytoplasmic Antibodies) Vasculitis Panel (07/29/2023 10:17 AM CDT) Myeloperoxidase Ab, S <0.2 <0.4 (Negative ) U 07/29/2023 4:45 PM CDT [facility] Proteinase 3 Ab (PR3), S <0.2 <0.4 (Negative ) U 07/29/2023 4:45 PM CDT [facility] Blood (Blood, Venous) 07/29/2023 10:17 AM CDT 07/29/2023 2:52 PM CDT Sera Hyman M.D., Ph.D. LAB BL OOD ADD-ON [facility] [address] [place] [address] [facility] [address] [place] [address] * Pulmonary Function Tests (07/29/2023 9:02 AM CDT) Pathologist [facility] FVC 2.15 L 07/29/2023 10:32 AM CDT [facility] SUITE FEV1 1.56 L 07/29/2023 10:32 AM CDT [facility] FEV1/FVC 72.56 % 07/29/2023 10:32 AM CDT [facility] EDQ07-76% 1.03 L/s 07/29/2023 10:32 AM CDT [facility] PEF PRE 5.91 L/s 07/29/2023 10:32 AM CDT [facility] PIF PRE 3.35 L/s 07/29/2023 10:32 AM CDT [facility] FEF 50 % FIF 50 PRE 54.00 % 07/29/2023 10:32 AM CDT [facility] FET PRE 9.49 sec 07/29/2023 10:32 AM CDT [facility] DLCO 10.65 ml/(min*mm Hg) 07/29/2023 10:32 AM CDT [facility] DLCOc 14.91 ml/(min*mm Hg) 07/29/2023 10:32 AM CDT [facility] HB 7.40 g(Hb)/dL 07/29/2023 10:32 AM CDT [facility] SUITE VA 4.05 L 07/29/2023 10:32 AM CDT [facility] PulseRest 50.00 1/min 07/29/2023 10:32 AM CDT [facility] SUITE TLC 4.43 L 07/29/2023 10:32 AM CDT [facility] FRCPLETH PROVBASE 2.72 L 07/29/2023 10:32 AM CDT [facility] SUITE RV 1.96 L 07/29/2023 10:32 AM CDT [facility] RV % TLC PRE 44.12 % 07/29/2023 10:32 AM CDT [facility] 07/29/2023 9:02 AM CDT Impressions [facility] - 07/29/2023 10:32 AM CDT Abnormal study. [...] Sera Hyman M.D., Ph.D. 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 [address] [place] [phone] PCP - General Internal Medicine 11/23/17 documented as of this encounter
--- OUTSIDE RECORDS SUMMARY | 2023-09-09 17:44 | XMS_ITS | Encounter Summary ---
Author Name Unknown Organization [facility] Address [address] [place] [address] Care Team Providers Care Seafood Fisherman Name Role Phone Clover Delaney M.D. Primary Care Provider [phone]- [phone] Encounter Details Date Type Department Care Team (Latest Contact Info) Description 07/06/2023 9:06 AM CDT - 07/06/2023 11:59 PM CDT Hospital Encounter Department of Laboratory Medicine in [address] [place] [phone] Sera Casiano M.D., Ph.D. [address] [place] [address] Hypertension And Chronic Kidney Disease Stage 5 [...] Answer Date Recorded PHQ-2 Score 2 05/28/2023 [facility] [place] of Occupat ional Health - Occupational Stress [...] Sex Assigned at Male 05/13/2021 10:11 AM SEC ACCOUNTANT Gender Identity Male 11/02/2017 7:22 PM [...] by mouth as needed. miscellaneous medical supply [facility] CPAP Supplies See Instructions, CPAP machine, mask 1 ea x 4 refills, headgear 1 ea x 2 refills, tubing 1 ea x 4 refills, filters 2 ea per month, tub 1 ea x 2 refills, mask seal 1 ea x 2 refills DX G47.33, length of need 99, 1 each, 0 Refill(s) 10/20/2016 miscellaneous medical supply [facility] Head Gear for CPAP Machine See Instructions, fax to patient at [phone], 1 each 01/17/2014 MULTIVITAMIN ORAL Daily Multiple [...] AM CDT Clinical Communication Virtual Review in [place], [place] 200 [place] [address] 09/10/2023 1:00 PM CDT Appointment Department of Radiology in [place] [address] [place] [address] Sera Casiano M.D., Ph.D. [address] [place] [phone] Discharge Disposition: Home or Self Care 09/10/2023 1:20 PM CDT Appointment Department of Laboratory Medicine in [place] [address] [place] [address] Sera Casiano M.D., Ph.D. [address] [place] [phone] 09/10/2023 2:30 PM CDT Ancillary Procedure Department of Cardiovascular Diseases in [address] [phone] Clover Delaney M.D. [address] [place] [phone] Discharge Disposition: Home or Self Care 10/01/2023 9:30 AM CDT Comprehensive Visit Department of Cardiovascular Diseases in [place], [place] 701 [place] [phone] Nikko Dey M.D. 701 [place] [phone] Discharge Disposition: Home or Self Care 10/05/2023 1:30 PM CDT Comprehensive Visit Division of Pulmonary Medicine in [place], [place] [address] [place] [phone] Luis Carrion M.B.B.S. [address] [place] [phone] 10/27/2023 2:25 PM CDT Appointment Department of Cardiovascular Diseases in [place], [place] [address] [place] [phone] Clover Delaney M.D. [address] [place] [phone] Discharge Disposition: Home or Self Care documented [...] Comment: Biotin has been identified by the powerhouse electrician apprentice as a potential interfering substance. Higher concentrations of biotin may be found in multivitamins, hair/nail supplements, and workout supplements. If the result does not match clinical observations, repeat testing after patient refrains from the use of supplements for at least 12 hours. Blood (Blood, Venous) 07/06/2023 9:22 AM CDT 07/06/2023 11:51 AM CDT Sera Hyman M.D., Ph.D. LAB BL OOD ADD-ON [facility] [address] [place] [address], [facility] in [place] [address] [place] [phone] * (ABNORMAL) Iron and Total Iron-Binding Capacity [...] Hyman M.D., Ph.D. LAB BL OOD ADD-ON [facility] [address] [place] [address], [facility] [place] [address] [facility] [place] [address] * (ABNORMAL) CBC with Differential, Blood (07/06/2023 [...] LAB BL OOD ADD-ON Performing Organization Address City/[facility]/ZIP Co de Phone Number [facility] [address] [place] [address], [facility] in [address] [phone] * (ABNORMAL) Uric Acid (07/06/2023 9:22 AM CDT) Uric Acid, P 10.4(H) 3.7 - 8.0 mg/dL 07/06/2023 12:35 PM CDT R[facility] Blood (Blood, Venous) 07/06/2023 9:22 AM CDT 07/06/2023 11:51 AM CDT Sera Hyman M.D., Ph.D. LAB BL OOD ADD-ON Performing Organization Address [facility] de Phone Number [facility] [address] [place] [address], [facility] in [address] [phone] * (ABNORMAL) Cystatin C with Estimated GFR [...] Hyman M.D., Ph.D. LAB BL OOD ADD-ON [facility] [address] [place] [address], [facility] [address] [place] [address] * (ABNORMAL) Renal Function Panel (07/06/2023 9:22 AM CDT) Pathologist [facility] Potassium, P 4.3 3.6 - 5.2 mmol/L [...] Hyman M.D., Ph.D. LAB BL OOD ADD-ON [facility] vascular [facility] LAB [address] [place] [address], [facility] in [place] [facility] [place] [address] documented in this encounter Visit Diagnoses Diagnosis Hypertensive Chronic Kidney Disease With Stage 5 Chronic Kidney Disease Or End Stage Renal Disease, Chronic Kidney Disease Stage 5 (HCC) Proteinuria 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 documented in this encounter Additional Health Concerns Assessment Noted Time PHQ-9 Depression Total Score: 4 06/06/19 23 2:04 PM SEC ACCOUNTANT documented as of this encounter Care Teams Seafood Fisherman Relationship Specialty Start Date End Date Clover Delaney M.D. [address] [place] [address] [place] [phone] PCP - General Internal Medicine 11/23/17 documented as of this encounter
--- OUTSIDE RECORDS SUMMARY | 2023-09-09 17:44 | XMS_ITS | Encounter Summary ---
Author Name Unknown Organization [facility] Address [address] [place] [address] Care Team Providers Care Director Of Rehabilitation And Wellness Name Role Phone Clover Delaney M.D. Primary Care Provider [phone]- [phone] Reason for Visit * Outpatient (Routine) - Closed Specialty Diagnoses / Procedures Referred By Contanthony t Referred To Contact Nutrition Diagnoses Chronic Kidney Disease Stage 5 Glomerular Filtration Rate Less Than 15 (HCC) Sera Casiano M.D., Ph.D. [address] [place] [phone] [facility] Referral ID Status Reason Start Date Expiration Date Visits Re quested Visits Authorized [id number] Closed 06/26/2023 12/25/2024 1 1 Encounter Details Date Type Department Care Team (Latest Contact Info) Description 07/10/2023 1:00 PM CDT Comprehensive Visit Division of Nephrology and Hypertension in [place], [place] [address] [place] [phone] Sera Casiano M.D., Ph.D. [address] [place] [phone] Elana Almonte, RDN, LD [address] [place] [phone] Chronic Kidney Disease Stage 5 Glomerular Filtration [...] Sex Assigned at Male 05/13/2021 10:11 AM REAL ESTATE REPRESENTATIVE Gender Identity Male 11/02/2017 7:22 PM [...] stage 5 Met with patient and spouse [id number] HISTORY OF PRESENT ILLNESS Pertinent PMH: HTN, [...] stable Nutrition Questionnaire Typical Daily Intake Breakfast: [place] 1 slice, one egg and butter and [...] patient questions and diet recall. Nutrition Prescription/Recommendation 2746-5788 mg sodium; 75 g protein INTERVENTION Counseling: Discussed limiting sodium intake to 2654-0229 mg per day Encouraged continuing to limit [...] values within target range Plan/Patient Goal(s): 1. 3322-8648 mg sodium 2. 75 gm total protein [...] AM CDT Clinical Communication Virtual Review in [place], [place] 200 [place] [phone] 09/10/2023 1:00 PM CDT Appointment Department of Radiology in [place] [address] [place] [address] Sera Casiano M.D., Ph.D. [address] [place] [phone] Discharge Disposition: Home or Self Care 09/10/2023 1:20 PM CDT Appointment Department of Laboratory Medicine in [place] [address] [place] [phone] Sera Casiano M.D., Ph.D. [address] [place] [phone] 09/10/2023 2:30 PM CDT Ancillary Procedure Department of Cardiovascular Diseases in [address] [phone] Clover Delaney M.D. [address] [place] [phone] Discharge Disposition: Home or Self Care 10/01/2023 9:30 AM CDT Comprehensive Visit Department of Cardiovascular Diseases in [address] [phone] Nikko Dey M.D. 701 [place] [phone] Discharge Disposition: Home or Self Care 10/05/2023 1:30 PM CDT Comprehensive Visit Division of Pulmonary Medicine in [address] [phone] Luis Carrion M.B.B.S. [address] [place] [address] 10/27/2023 2:25 PM CDT Appointment Department of Cardiovascular Diseases in [place], [place] [address] [place] [phone] Clover Delaney M.D. 701 [place] [address] Discharge Disposition: Home or Self Care documented as of this encounter Visit Diagnoses Diagnosis Chronic Kidney Disease Stage 5 Glomerular Filtration Rate Less Than 15 (HCC) documented in this encounter Additional Health Concerns Assessment Noted Time PHQ-9 Depression Total Score: 4 06/06/19 23 2:04 PM REAL ESTATE REPRESENTATIVE documented as of this encounter Care Teams Director Of Rehabilitation And Wellness Relationship Specialty Start Date End Date Clover Delaney M.D. [address] [place] [phone] PCP - General Internal Medicine 11/23/17 documented as of this encounter
--- OUTSIDE RECORDS SUMMARY | 2023-09-09 17:45 | XMS_ITS | Encounter Summary ---
Author Name Unknown Organization [facility] Address [address] [place] [address] Care Team Providers Care Cut Off Machine Unloader Name Role Phone Clover Delaney M.D. 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 [address] [place] [phone] [facility] Referral ID Status Reason Start Date Expiration Date Visits Re quested Visits Authorized [id number] Closed 06/01/2023 05/31/2024 1 1 Encounter Details Date Type Department Care Team (Latest Contact Info) Description 06/26/2023 8:15 AM DIE SINKER APPRENTICE Internal E-Consult Division of Pulmonary Medicine in [place], [place] [address] [place] [phone] Louie Aleman M.D. 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 Never 07/28/2022 Do you [...] Score 2 05/28/2023 [facility]ational [facility] Questionnaire Answer [...] Assigned at Male 05/13/2021 10:11 AM DIE SINKER APPRENTICE Gender Identity Male 11/02/2017 7:22 PM [...] Louie Aleman M.D. CT CT Job ID: [id number] SINKER APPRENTICE documented in this encounter Plan of Treatment Upcoming Encounters Date Type Department Care Team (Latest Contact Info) Description 09/10/2023 10:45 AM CDT Clinical Communication Virtual Review in [address] [phone] 09/10/2023 1:00 PM CDT Appointment Department of Radiology in [place] [address] [place] [phone] Sera Casiano M.D., Ph.D. [address] [place] [phone] Discharge Disposition: Home or Self Care 09/10/2023 1:20 PM CDT Appointment Department of Laboratory Medicine in [place] [address] [place] [phone] Sera Casiano M.D., Ph.D. [address] [place] [phone] 09/10/2023 2:30 PM CDT Ancillary Procedure Department of Cardiovascular Diseases in [address] [phone] Clover Delaney M.D. [address] [place] [phone] Discharge Disposition: Home or Self Care 10/01/2023 9:30 AM CDT Comprehensive Visit Department of Cardiovascular Diseases in [address] [phone] Nikko Dey M.D. [address] [place] [phone] Discharge Disposition: Home or Self Care 10/05/2023 1:30 PM CDT Comprehensive Visit Division of Pulmonary Medicine in [place], [place] [address] [place] [address] Luis Carrion M.B.BJosé LuisS. [address] [place] [address] 10/27/2023 2:25 PM CDT Appointment Department of Cardiovascular Diseases in [place], [place] [address] [place] [address] Clover Delaney M.D. 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 [address] [place] [phone] PCP - General Internal Medicine 11/23/17 documented as of this encounter
--- OUTSIDE RECORDS SUMMARY | 2023-09-09 17:45 | XMS_ITS | Encounter Summary ---
Author Name Unknown Organization [facility] Address [address] [place] [address] Care Team Providers Care Capacity Planning Analyst Name Role Phone Clover Delaney M.D. Primary Care Provider +1- [phone] Reason for Referral * Outpatient (Routine) - Closed Specialty Diagnoses / Procedures Referred By Yenny hunter Referred To Contact Nutrition Diagnoses Chronic Kidney Disease Stage 5 Glomerular Filtration Rate Less Than 15 (HCC) Sera Casiano M.D., Ph.D. [address] [place] [phone] [facility] Referral ID Status Reason Start Date Expiration Date Visits Re quested Visits Authorized [id number] Closed 06/26/2023 12/25/2024 1 1 Scheduling Instructions VIDEO VISIT. This appointment should ideally be scheduled AFTER the Microstrategy Bi Developer Consults, but must at least be scheduled 48 hours after 24-hour urine collection is complete. Virtual visit is acceptable for this dietitian visit. FACTURING QUALITY ENGINEER * Outpatient (Routine) - Closed Specialty Diagnoses / Procedures Referred By Yenny hunter Referred To Contact Nephrology and Hypertension Sera Casiano M.D., Ph.D. 200 [place] [address] [facility] Referral ID Status Reason Start Date Expiration Date Visits Re quested Visits Authorized [id number] Closed 06/26/2023 12/25/2024 1 1 FACTURING QUALITY ENGINEER * Outpatient (Routine) - Closed Specialty Diagnoses / Procedures Referred By Contac t Referred To Contact Diagnoses Chronic Kidney Disease Stage 5 Glomerular Filtration Rate Less Than 15 (HCC) Procedures US Upper Extremity Bilateral Dialysis Mapping Sera Casiano M.D., Ph.D. [address] [place] [phone] [facility] Referral ID Status Reason Start Date Expiration Date Visits Re quested Visits Authorized [id number] Closed 06/26/2023 06/25/2024 1 1 FACTURING QUALITY ENGINEER * Outpatient (Routine) - Closed Specialty Diagnoses / Procedures Referred By Contac t Referred To Contact Nephrology and Hypertension / Dialysis Diagnoses Chronic Kidney Disease Stage 5 Glomerular Filtration Rate Less Than 15 (HCC) Sera Casiano M.D., Ph.D. [address] [place] [phone] [facility] Referral ID Status Reason Start Date Expiration Date Visits Re quested Visits Authorized [id number] Closed 06/26/2023 12/25/2024 1 1 FACTURING QUALITY ENGINEER * Outpatient (Routine) - Closed Specialty Diagnoses / Procedures Referred By Contac t Referred To Contact Nephrology and Hypertension Sera Casiano M.D., Ph.D. [address] [place] [phone] [facility] Referral ID Status Reason Start Date Expiration Date Visits Re quested Visits Authorized [id number] Closed 06/26/2023 12/25/2024 1 1 FACTURING QUALITY ENGINEER Reason for Visit * Outpatient (Routine) - Closed Specialty Diagnoses / Procedures Referred By Yenny hunter Referred To Contact Nephrology and Hypertension Sera Casiano M.D., Ph.D. [address] [place] [address] [facility] Referral ID Status Reason Start Date Expiration Date Visits Re quested Visits Authorized [id number] Closed 06/15/2023 12/14/2024 1 1 Encounter Details Date Type Department Care Team (Latest Contact Info) Description 06/26/2023 4:00 PM MANUFACTURING QUALITY ENGINEER Office Visit Division of Nephrology and Hypertension in [place], [place] [address] [place] [phone] Sera Casiano M.D., Ph.D. [address] [place] [phone] Chronic Kidney Disease Stage 5 [...] 2 05/28/2023 [facility] - Occupational Stress Questionnaire Answer Date [...] Assigned at Male 05/13/2021 10:11 AM MANUFACTURING QUALITY ENGINEER Gender Identity Male 11/02/2017 7:22 PM CDT Sexual Orientation Straight 11/02/2017 7: 22 PM CDT documented as of this encounter Patient Instructions * Patient Instructions* Sera Casiano M.D., Ph.D. - 06/26/2023 4:00 PM MANUFACTURING QUALITY ENGINEER Low potassium diet. Recheck potassium level on Thursday Bring your BP device for validation (nurse visit) Increase dose of doxazosin to 4 mg at bedtime Continue to monitor your BP Referral to vascular access clinic Ultrasound of arms to check for vessels for vascular access Dietitian appointment Continue Aranesp and Iron FACTURING QUALITY ENGINEER documented in this encounter Progress Notes * [...] visit in July to be done at [facility]. FACTURING QUALITY ENGINEER documented in this encounter Plan of Treatment Upcoming Encounters Date Type Department Care Team (Latest Contact Info) Description 09/10/2023 10:45 AM CDT Clinical Communication Virtual Review in [place], [place] [address] [place] [address] 09/10/2023 1:00 PM CDT Appointment Department of Radiology in [address] [place] [phone] Sera Casiano M.D., Ph.D. [address] [place] [phone] Discharge Disposition: Home or Self Care 09/10/2023 1:20 PM CDT Appointment Department of Laboratory Medicine in [address] [place] [address] Sera Casiano M.D., Ph.D. [address] [place] [phone] 09/10/2023 2:30 PM CDT Ancillary Procedure Department of Cardiovascular Diseases in [address] [phone] Clover Delaney M.D. [address] [place] [phone] Discharge Disposition: Home or Self Care 10/01/2023 9:30 AM CDT Comprehensive Visit Department of Cardiovascular Diseases in [address] [phone] Nikko Dey M.D. [address] [place] [phone] Discharge Disposition: Home or Self Care 10/05/2023 1:30 PM CDT Comprehensive Visit Division of Pulmonary Medicine in [place], [place] [address] [place] [phone] Luis Carrion M.B.B.S. [address] [place] [phone] 10/27/2023 2:25 PM CDT Appointment Department of Cardiovascular Diseases in [place], [place] [address] [place] [phone] Clover Delaney M.D. 701 [facility] [place] [address] Discharge Disposition: Home or Self Care Scheduled [...] PROCEDURES * (ABNORMAL) Ferritin (06/29/2023 12:11 PM MANUFACTURING QUALITY ENGINEER) Ferritin, S 487(H) 31 - 409 mcg/L 06/29/2023 1:44 PM MANUFACTURING QUALITY ENGINEER DTL Blood (Blood, Venous) 06/29/2023 12:11 PM MANUFACTURING QUALITY ENGINEER 06/29/2023 12:47 PM MANUFACTURING QUALITY ENGINEER Sera Hyman M.D., Ph.D. LAB BL OOD ADD-ON Performing Organization Address City/[facility]/ZIP Co de Phone Number [facility] [address] [place] [address], [facility] 200 [place] [address] * (ABNORMAL) Iron and Total Iron-Binding Capacity (06/29/2023 12:11 PM MANUFACTURING QUALITY ENGINEER) Pathologist [facility] Iron 51 50 - 150 mcg/dL 06/29/2023 1:44 PM MANUFACTURING QUALITY ENGINEER DTL Total Iron Binding Capacity 221(L) 250 - 400 mcg/dL 06/29/2023 1:44 PM MANUFACTURING QUALITY ENGINEER DTL Percent Saturation 23 14 - 50 % 06/29/2023 1:44 PM MANUFACTURING QUALITY ENGINEER DTL Blood (Blood, Venous) 06/29/2023 12:11 PM MANUFACTURING QUALITY ENGINEER 06/29/2023 12:47 PM MANUFACTURING QUALITY ENGINEER Sera Hyman M.D., Ph.D. LAB BL OOD ADD-ON [facility] [address] [place] [address], [facility] 200 [place] [address] * (ABNORMAL) Renal Function Panel (06/29/2023 12:11 PM MANUFACTURING QUALITY ENGINEER) Potassium, S 4.5 3.6 - 5.2 mmol/L 06/29/2023 1:44 PM MANUFACTURING QUALITY ENGINEER DTL Sodium, S 143 135 - 145 mmol/L 06/29/2023 1:44 PM MANUFACTURING QUALITY ENGINEER DTL Chloride, S 104 98 - 107 mmol/L 06/29/2023 1:44 PM MANUFACTURING QUALITY ENGINEER DTL Bicarbonate, S 24 22 - 29 mmol/L 06/29/2023 1:44 PM MANUFACTURING QUALITY ENGINEER DTL Anion Gap 15 7 - 15 06/29/2023 1:44 PM MANUFACTURING QUALITY ENGINEER DTL BUN (Blood Urea Nitrogen), S 69(H) 8 - 24 mg/dL 06/29/2023 1:44 PM MANUFACTURING QUALITY ENGINEER DTL Creatinine 4.51(H) 0.74 - 1.35 mg/dL 06/29/2023 1:44 PM MANUFACTURING QUALITY ENGINEER DTL Estimated GFR (eGFR) <15(L) >=60 mL/min/BSA 06/29/2023 1:44 PM MANUFACTURING QUALITY ENGINEER DTL Comment: Estimated GFR calculated using the 2020 CKD_EPI creatinine equation. Calcium, Total, S 8.5(L) 8.8 - 10.2 mg/dL 06/29/2023 1:44 PM MANUFACTURING QUALITY ENGINEER DTL Glucose, S 97 70 - 140 mg/dL 06/29/2023 1:44 PM MANUFACTURING QUALITY ENGINEER DTL Albumin, S 4.0 3.5 - 5.0 g/dL 06/29/2023 1:44 PM MANUFACTURING QUALITY ENGINEER DTL Phosphorus (Inorganic), S 4.9(H) 2.5 - 4.5 mg/dL 06/29/2023 1:44 PM MANUFACTURING QUALITY ENGINEER DTL Blood (Blood, Venous) 06/29/2023 12:11 PM MANUFACTURING QUALITY ENGINEER 06/29/2023 12:47 PM MANUFACTURING QUALITY ENGINEER Sera Hyman M.D., Ph.D. 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 [address] [place] [phone] PCP - General Internal Medicine 11/23/17 documented as of this encounter
--- OUTSIDE RECORDS SUMMARY | 2023-09-09 17:45 | XMS_ITS | Encounter Summary ---
Author Name Unknown Organization [facility] Address [address] [place] [address] Care Team Providers Care Auto Suspension And Steering Mechanic Name Role Phone Clover Delaney M.D. Primary Care Provider [phone]- [phone] Encounter Details Date Type Department Care Team (Latest Contact Info) Description 06/15/2023 2:30 PM ESTHETICIAN/OWNER Ancillary Procedure Department of Ophthalmology in [place], [place] [address] [place] [address] Justin Bunch M.D. [address] [place] [address] Diabetes Mellitus Type 2 With Proliferative Diabetic [...] 2 05/28/2023 [facility] [...] Sex Assigned at Male 05/13/2021 10:11 AM ESTHETICIAN/OWNER Gender Identity Male 11/02/2017 7:22 PM CDT Sexual Orientation Straight 11/02/2017 7: 22 PM CDT documented as of this encounter Plan of Treatment Upcoming Encounters Date Type Department Care Team (Latest Contact Info) Description 09/10/2023 10:45 AM CDT Clinical Communication Virtual Review in [place], [place] [address] [place] [address] 09/10/2023 1:00 PM CDT Appointment Department of Radiology in [place] [address] [place] [phone] Sera Casiano M.D., Ph.D. [address] [place] [phone] Discharge Disposition: Home or Self Care 09/10/2023 1:20 PM CDT Appointment Department of Laboratory Medicine in [place] [address] [place] [phone] Sera Casiano M.D., Ph.D. [address] [place] [phone] 09/10/2023 2:30 PM CDT Ancillary Procedure Department of Cardiovascular Diseases in [address] [phone] Clover Delaney M.D. [address] [place] [phone] Discharge Disposition: Home or Self Care 10/01/2023 9:30 AM CDT Comprehensive Visit Department of Cardiovascular Diseases in [address] [phone] Nikko Dey M.D. [address] [place] [phone] Discharge Disposition: Home or Self Care 10/05/2023 1:30 PM CDT Comprehensive Visit Division of Pulmonary Medicine in [place], [place] [address] [place] [phone] Luis Carrion M.B.B.S. [address] [place] [address] [place] [phone] 10/27/2023 2:25 PM CDT Appointment Department of Cardiovascular Diseases in [place], [place] [address] [place] [address] Clover Delaney M.D. 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 OCT device [...] Total Score: 4 06/06/19 23 2:04 PM ESTHETICIAN/OWNER documented as of this encounter Care Teams Auto Suspension And Steering Mechanic Relationship Specialty Start Date End Date Clover Delaney M.D. [address] [place] [phone] PCP - General Internal Medicine 11/23/17 documented as of this encounter
--- OUTSIDE RECORDS SUMMARY | 2023-09-09 17:45 | XMS_ITS | Encounter Summary ---
Author Name Unknown Organization [facility] Address [address] [place] [address] Care Team Providers Care Burr Machine Operator Name Role Phone Clover Delaney M.D. Primary Care Provider [phone]- [phone] Encounter Details Date Type Department Care Team [...] Sex Assigned at Male 05/13/2021 10:11 AM DISC RECORDIST Gender Identity Male 11/02/2017 7:22 PM CDT Sexual Orientation Straight 11/02/2017 7: 22 PM CDT documented as of this encounter Plan of Treatment Upcoming Encounters Date Type Department Care Team (Latest Contact Info) Description 09/10/2023 10:45 AM CDT Clinical Communication Virtual Review in [place], [place] [address] [place] [address] 09/10/2023 1:00 PM CDT Appointment Department of Radiology in [place] [address] [place] [address] Sera Casiano M.D., Ph.D. [address] [place] [phone] Discharge Disposition: Home or Self Care 09/10/2023 1:20 PM CDT Appointment Department of Laboratory Medicine in [address] [place] [address] Sera Casiano M.D., Ph.D. [address] [place] [phone] 09/10/2023 2:30 PM CDT Ancillary Procedure Department of Cardiovascular Diseases in [address] [phone] Clover Delaney M.D. [address] [place] [phone] Discharge Disposition: Home or Self Care 10/01/2023 9:30 AM CDT Comprehensive Visit Department of Cardiovascular Diseases in [address] [phone] Nikko Dey M.D. [address] [place] [phone] Discharge Disposition: Home or Self Care 10/05/2023 1:30 PM CDT Comprehensive Visit Division of Pulmonary Medicine in [place], [place] [address] [place] [phone] Luis Carrion M.B.B.S. [address] [place] [phone] 10/27/2023 2:25 PM CDT Appointment Department of Cardiovascular Diseases in [place], [place] [address] [place] [phone] Clover Delaney M.D. [address] [place] [phone] Discharge Disposition: Home or Self Care documented as of this encounter Procedures Procedure Name Priority Date/Time Associated Diagnosis Comments OPHTHALMOLOGY IMAGE EXAM Routine 06/15/2023 12:00 AM DISC RECORDIST documented in this encounter Results * Eyes Spectralis OCT-Ophthalmology Image Exam (06/15/2023 12:00 AM DISC RECORDIST) Narrative IIMS - 06/15/2023 2:28 PM DISC RECORDIST This order has been created and auto-finalized [...] Total Score: 4 06/06/19 23 2:04 PM DISC RECORDIST documented as of this encounter Care Teams Burr Machine Operator Relationship Specialty Start Date End Date Clover Delaney M.D. [address] [place] [phone] PCP - General Internal Medicine 11/23/17 documented as of this encounter
--- OUTSIDE RECORDS SUMMARY | 2023-09-09 17:45 | XMS_ITS | Encounter Summary ---
Author Name Unknown Organization [facility] Address [address] [place] [address] Care Team Providers Care Manager Subway Name Role Phone Clover Delaney M.D. Primary Care Provider [phone] Reason for Visit * Reason Onset Date Comments Pre-visit Intake 06/24/2023 Encounter Details Date Type Department Care Team (Latest Contact Info) Description 06/24/2023 9:45 AM JUNIOR LEGAL SECRETARY Clinical Communication Virtual Review in [place], [place] 200 [place] [phone] Pre-visit Intake Social History Tobacco Use Types [...] Sex Assigned at Male 05/13/2021 10:11 AM JUNIOR LEGAL SECRETARY Gender Identity Male 11/02/2017 7:22 PM CDT Sexual Orientation Straight 11/02/2017 7: 22 PM CDT documented as of this encounter Plan of Treatment Upcoming Encounters Date Type Department Care Team (Latest Contact Info) Description 09/10/2023 10:45 AM CDT Clinical Communication Virtual Review in [place], [place] [address] [place] [address] 09/10/2023 1:00 PM CDT Appointment Department of Radiology in [place] [address] [place] [address] Sera Casiano M.D., Ph.D. [address] [place] [phone] Discharge Disposition: Home or Self Care 09/10/2023 1:20 PM CDT Appointment Department of Laboratory Medicine in [place] [address] [place] [phone] Sera Casiano M.D., Ph.D. [address] [place] [phone] 09/10/2023 2:30 PM CDT Ancillary Procedure Department of Cardiovascular Diseases in [address] [phone] Clover Delaney M.D. [address] [place] [phone] Discharge Disposition: Home or Self Care 10/01/2023 9:30 AM CDT Comprehensive Visit Department of Cardiovascular Diseases in [address] [phone] Nikko Dey M.D. [address] [place] [phone] Discharge Disposition: Home or Self Care 10/05/2023 1:30 PM CDT Comprehensive Visit Division of Pulmonary Medicine in [place], [place] [address] [place] [phone] Luis Carrion M.B.B.S. [address] [place] [phone] 10/27/2023 2:25 PM CDT Appointment Department of Cardiovascular Diseases in [place], [place] [address] [place] [address] Clover Delaney M.D. 701 [place] [phone] Discharge Disposition: Home or Self Care documented as of this encounter Visit Diagnoses Not on filedocumented in this encounter Additional Health Concerns Assessment Noted Time PHQ-9 Depression Total Score: 4 06/06/19 23 2:04 PM JUNIOR LEGAL SECRETARY documented as of this encounter Care Teams Manager Subway Relationship Specialty Start Date End Date Clover Delaney M.D. [address] [place] [phone] PCP - General Internal Medicine 11/23/17 documented as of this encounter
--- OUTSIDE RECORDS SUMMARY | 2023-09-09 17:45 | XMS_ITS | Encounter Summary ---
Author Name Unknown Organization [facility] Address [address] [place] [address] Care Team Providers Care Retail Sales Lead Name Role Phone Clover Delaney M.D. Primary Care Provider [phone]- [phone] Reason for Referral * Outpatient (Routine) - Closed Specialty Diagnoses / Procedures Referred By Contanthony t Referred To Contact Nephrology and Hypertension Sera Casiano M.D., Ph.D. [address] [place] [phone] [facility] Referral ID Status Reason Start Date Expiration Date Visits Re quested Visits Authorized [id number] Closed 06/15/2023 12/14/2024 1 1 Scheduling Instructions 4 PM WELDER BODY ASSEMBLY Encounter Details Date Type Department Care Team (Late st Contact Info) Description 06/15/2023 Orders Only Division of Nephrology and Hypertension in [place], [place] [address] [place] [phone] Sera Casiano M.D., Ph.D. [address] [place] [phone] Chronic Kidney Disease Stage 5 Glomerular Filtration [...] Answer Date Recorded PHQ-2 Score 2 05/28/2023 [facility] of Occupat ional Health - Occupational Stress [...] Sex Assigned at Male 05/13/2021 10:11 AM SPOT WELDER BODY ASSEMBLY Gender Identity Male 11/02/2017 7:22 PM CDT Sexual Orientation Straight 11/02/2017 7: 22 PM CDT documented as of this encounter Plan of Treatment Upcoming Encounters Date Type Department Care Team (Latest Contact Info) Description 09/10/2023 10:45 AM CDT Clinical Communication Virtual Review in [address] [phone] 09/10/2023 1:00 PM CDT Appointment Department of Radiology in [place] [address] [place] [address] Sera Casiano M.D., Ph.D. [address] [place] [phone] Discharge Disposition: Home or Self Care 09/10/2023 1:20 PM CDT Appointment Department of Laboratory Medicine in [place] [address] [place] [address] Sera Casiano M.D., Ph.D. [address] [place] [phone] 09/10/2023 2:30 PM CDT Ancillary Procedure Department of Cardiovascular Diseases in [address] [phone] Clover Delaney M.D. [address] [place] [phone] Discharge Disposition: Home or Self Care 10/01/2023 9:30 AM CDT Comprehensive Visit Department of Cardiovascular Diseases in [place], [place] 701 [place] [phone] Nikko Dey M.D. 701 [place] [phone] Discharge Disposition: Home or Self Care 10/05/2023 1:30 PM CDT Comprehensive Visit Division of Pulmonary Medicine in [place], [place] [address] [place] [phone] Luis Carrion M.B.B.S. [address] [place] [phone] 10/27/2023 2:25 PM CDT Appointment Department of Cardiovascular Diseases in [place], [place] [address] [place] [phone] Clover Delaney M.D. [address] [place] [phone] Discharge Disposition: Home or Self Care Scheduled Referrals Name Type Priority Associated Diagnoses Order Schedule Nephrology and Hypertension office visit (clinic) Outpatient Referral Routine Expected: 06/26/2023, Expires: 09/12/2024 documented as of this encounter Results * (ABNORMAL) Basic Metabolic Panel (06/15/2023 4:06 PM SPOT WELDER BODY ASSEMBLY) Potassium, S 5.6(H) 3.6 - 5.2 mmol/L 06/15/2023 4:59 PM SPOT WELDER BODY ASSEMBLY DTL Sodium, S 142 135 - 145 mmol/L 06/15/2023 4:59 PM SPOT WELDER BODY ASSEMBLY DTL Chloride, S 105 98 - 107 mmol/L 06/15/2023 4:59 PM SPOT WELDER BODY ASSEMBLY DTL Bicarbonate, S 23 22 - 29 mmol/L 06/15/2023 4:59 PM SPOT WELDER BODY ASSEMBLY DTL Anion Gap 14 7 - 15 06/15/2023 4:59 PM SPOT WELDER BODY ASSEMBLY DTL BUN (Blood Urea Nitrogen), S 68(H) 8 - 24 mg/dL 06/15/2023 4:59 PM SPOT WELDER BODY ASSEMBLY DTL Creatinine 4.61(H) 0.74 - 1.35 mg/dL 06/15/2023 4:59 PM SPOT WELDER BODY ASSEMBLY DTL Estimated GFR (eGFR) <15(L) >=60 mL/min/BSA 06/15/2023 4:59 PM SPOT WELDER BODY ASSEMBLY DTL Comment: Estimated GFR calculated using the 2020 CKD_EPI creatinine equation. Calcium, Total, S 8.8 8.8 - 10.2 mg/dL 06/15/2023 4:59 PM SPOT WELDER BODY ASSEMBLY DTL Glucose, S 130 70 - 140 mg/dL 06/15/2023 4:59 PM SPOT WELDER BODY ASSEMBLY DTL Blood (Blood, Venous) 06/15/2023 4:06 PM SPOT WELDER BODY ASSEMBLY 06/15/2023 4:42 PM SPOT WELDER BODY ASSEMBLY Sera Hyman M.D., Ph.D. LAB BL OOD ADD-ON [address] [address], [facility] [place] [address] documented in this encounter Visit Diagnoses Diagnosis Chronic Kidney Disease Stage 5 Glomerular Filtration Rate Less Than 15 (HCC)- Primary documented in this encounter Additional Health Concerns Assessment Noted Time PHQ-9 Depression Total Score: 4 06/06/19 23 2:04 PM SPOT WELDER BODY ASSEMBLY documented as of this encounter Care Teams Retail Sales Lead Relationship Specialty Start Date End Date Clover Delaney M.D. [address] [place] [phone] PCP - General Internal Medicine 11/23/17 documented as of this encounter
--- OUTSIDE RECORDS SUMMARY | 2023-09-09 17:45 | XMS_ITS | Encounter Summary ---
Author Name Unknown Organization [facility] Address [address] [place] [address] Care Team Providers Care Telemarketing Agent Name Role Phone Clover Delaney M.D. Primary Care Provider +1- [phone] Encounter Details Date Type Department Care Team (Late st Contact Info) Description 06/15/2023 Orders Only Division of Nephrology and Hypertension in [place], [place] [address] [place] [address] Sera Casiano M.D., Ph.D. [address] [place] [address] Chronic Kidney Disease Stage 5 Glomerular Filtration [...] Sex Assigned at Male 05/13/2021 10:11 AM VETERANS' COORDINATOR Gender Identity Male 11/02/2017 7:22 PM CDT Sexual Orientation Straight 11/02/2017 7: 22 PM CDT documented as of this encounter Plan of Treatment Upcoming Encounters Date Type Department Care Team (Latest Contact Info) Description 09/10/2023 10:45 AM CDT Clinical Communication Virtual Review in [place], [place] 200 [place] [address] 09/10/2023 1:00 PM CDT Appointment Department of Radiology in [place] [address] [place] [address] Sera Casiano M.D., Ph.D. [address] [place] [phone] Discharge Disposition: Home or Self Care 09/10/2023 1:20 PM CDT Appointment Department of Laboratory Medicine in [place] [address] [place] [phone] Sera Casiano M.D., Ph.D. [address] [place] [phone] 09/10/2023 2:30 PM CDT Ancillary Procedure Department of Cardiovascular Diseases in [address] [phone] Clover Delaney M.D. [address] [place] [phone] Discharge Disposition: Home or Self Care 10/01/2023 9:30 AM CDT Comprehensive Visit Department of Cardiovascular Diseases in [address] [phone] Nikko Dey M.D. [address] [place] [phone] Discharge Disposition: Home or Self Care 10/05/2023 1:30 PM CDT Comprehensive Visit Division of Pulmonary Medicine in [place], [place] [address] [place] [phone] Luis Carrion M.B.B.S. [address] [place] [address] 10/27/2023 2:25 PM CDT Appointment Department of Cardiovascular Diseases in [place], [place] [address] [place] [address] Clover Delaney M.D. [address] [place] [phone] Discharge Disposition: Home or Self Care documented as of this encounter Results * QuantiFERON-Tb Gold Plus, Blood (06/15/2023 4:07 PM VETERANS' COORDINATOR) [facility] QuantiFERON-TB Gold Plus Result Negative Negative 06/16/2023 12:08 PM VETERANS' COORDINATOR [facility] Comment: No interferon-gamma response to M. [...] Nil Result 0.02 IU/mL 06/16/2023 12:08 PM VETERANS' COORDINATOR [facility] TB2 Ag minus Nil Result 0.01 IU/mL 06/16/2023 12:08 PM VETERANS' COORDINATOR [facility] Mitogen minus Nil Result 3.42 IU/mL 06/16/2023 12:08 PM VETERANS' COORDINATOR [facility] Nil Result 0.04 IU/mL 06/16/2023 12:08 PM VETERANS' COORDINATOR [facility] Blood (Blood, Venous) 06/15/2023 4:07 PM VETERANS' COORDINATOR 06/15/2023 5:59 PM VETERANS' COORDINATOR Narrative [facility] - 06/16/2023 12:08 PM VETERANS' COORDINATOR Specimen Information: Specimen ID: [id number] Specimen Type: Blood Specimen Collection Start Date: 06/15/2023 ??4:07 PM Specimen Received Date: 06/15/2023 ??5:59 PM Specimen ID: [id number] Specimen Type: Blood Specimen Collection Start Date: 06/15/2023 ??4:07 PM Specimen Received Date: 06/15/2023 ??5:59 PM Specimen ID: [id number] Specimen Type: Blood Specimen Collection Start Date: 06/15/2023 ??4:07 PM Specimen Received Date: 06/15/2023 ??5:59 PM Specimen ID: [id number] Specimen Type: Blood Specimen Collection Start Date: 06/15/2023 ??4:07 PM Specimen Received Date: 06/15/2023 ??5:59 PM Sera Hyman M.D., Ph.D. LAB [facility] - BLOOD ORDERABLES Performing Organization Address City/[facility]/ZIP Co de Phone Number [facility] [address] [place], [place] [address] [place] [address] [place] [address] * Hepatitis B Surface Antigen (06/15/2023 4:06 PM VETERANS' COORDINATOR) [facility] HBs Antigen, S Negative Negative 06/15/2023 10:03 PM VETERANS' COORDINATOR [facility] Blood (Blood, Venous) 06/15/2023 4:06 PM VETERANS' COORDINATOR 06/15/2023 8:15 PM VETERANS' COORDINATOR Sera Hyman M.D., Ph.D. LAB [facility] BLOOD ORDERABLES Performing Organization Address City/[facility]/ZIP Co de Phone Number [facility] [address] [place] [address] [place] [address] * HCV Ab w/Reflex to HCV PCR, Serum (06/15/2023 4:06 PM VETERANS' COORDINATOR) Pathologist [facility] HCV Ab, S Negative Negative 06/15/2023 10:21 PM VETERANS' COORDINATOR [facility] Comment:Bagtdw-ib-yhueyp rat io is <1.00. Blood (Blood, Venous) 06/15/2023 4:06 PM VETERANS' COORDINATOR 06/15/2023 8:15 PM VETERANS' COORDINATOR Sera Hyman M.D., Ph.D. LAB [facility] - BLOOD ORDERABLES Performing Organization Address [facility] Co de Phone Number [place] [address] [place], [place] [address] [place] [address] [place] [address] * HBc Total Ab, Serum (06/15/2023 4:06 PM VETERANS' COORDINATOR) HBc Total Ab, S Negative Negative 06/15/2023 10:17 PM VETERANS' COORDINATOR [facility] Blood (Blood, Venous) 06/15/2023 4:06 PM VETERANS' COORDINATOR 06/15/2023 8:15 PM VETERANS' COORDINATOR Sera Hyman M.D., Ph.D. LAB [facility] BLOOD ORDERABLES Performing Organization Address [facility] Co de Phone Number [facility] [address] [place] [address] [place] [place] [address] * HBs Antibody, Serum (06/15/2023 4:06 PM VETERANS' COORDINATOR) HBs Antibody, S Negative 06/15/2023 10:18 PM VETERANS' COORDINATOR [facility] Comment: Patient is presumed to be not immune to infection with HBV. ----REFERENCE VALUE---- Unvaccinated: Negative Vaccinated: Positive HBs Antibody, Quantitative, S <5.0 mIU/mL 06/15/2023 10:18 PM VETERANS' COORDINATOR [facility] Comment: ----REFERENCE VALUE---- Unvaccinated: <5.0 Vaccinated: >=12.0 Blood (Blood, Venous) 06/15/2023 4:06 PM VETERANS' COORDINATOR 06/15/2023 8:15 PM VETERANS' COORDINATOR Sera Hyman M.D., Ph.D. LAB [facility] - BLOOD ORDERABLES [facility] [address] [place] [address] [facility] [address] [place] [address] documented in this encounter Visit Diagnoses Diagnosis Chronic Kidney Disease Stage 5 Glomerular Filtration Rate Less Than 15 (HCC)- Primary Chronic Kidney Disease Stage 5 Glomerular Filtration Rate Less Than 15 (HCC) documented in this encounter Additional Health Concerns Assessment Noted Time PHQ-9 Depression Total Score: 4 06/06/19 23 2:04 PM VETERANS' COORDINATOR documented as of this encounter Care Teams Telemarketing Agent Relationship Specialty Start Date End Date Clover Delaney M.D. [address] [place] [phone] PCP - General Internal Medicine 11/23/17 documented as of this encounter
--- OUTSIDE RECORDS SUMMARY | 2023-09-09 17:45 | XMS_ITS | Encounter Summary ---
Author Name Unknown Organization [facility] Address [address] [place] [address] Care Team Providers Care Applications Intern Name Role Phone Clover Delaney M.D. Primary Care Provider [phone]- [phone] Reason for Referral * Outpatient (Routine) - Authorized Specialty Diagnoses / Procedures Referred By Contanthony t Referred To Contact Ophthalmology Justin Bunch M.D. 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 [...] Answer Date Recorded PHQ-2 Score 2 05/28/2023 [facility] [place] - Occupational Stress [...] Sex Assigned at Male 05/13/2021 10:11 AM BLOCK INSPECTOR Gender Identity Male 11/02/2017 7:22 PM CDT Sexual Orientation Straight 11/02/2017 7: 22 PM CDT documented as of this encounter Plan of Treatment Upcoming Encounters Date Type Department Care Team (Latest Contact Info) Description 09/10/2023 10:45 AM CDT Clinical Communication Virtual Review in [place], [place] 200 [place] [address] 09/10/2023 1:00 PM CDT Appointment Department of Radiology in [place] [address] [place] [address] Sera Casiano M.D., Ph.D. [address] [place] [phone] Discharge Disposition: Home or Self Care 09/10/2023 1:20 PM CDT Appointment Department of Laboratory Medicine in [place] [address] [place] [phone] Sera Casiano M.D., Ph.D. [address] [place] [phone] 09/10/2023 2:30 PM CDT Ancillary Procedure Department of Cardiovascular Diseases in [address] [phone] Clover Delaney M.D. [address] [place] [phone] Discharge Disposition: Home or Self Care 10/01/2023 9:30 AM CDT Comprehensive Visit Department of Cardiovascular Diseases in [address] [phone] Nikko Dey M.D. [address] [place] [phone] Discharge Disposition: Home or Self Care 10/05/2023 1:30 PM CDT Comprehensive Visit Division of Pulmonary Medicine in [place], [place] [address] [place] [address] Luis Carrion M.B.BJosé LuisSJosé Luis [address] [place] [address] 10/27/2023 2:25 PM CDT Appointment Department of Cardiovascular Diseases in [place], [place] [address] [place] [address] Clover Delaney M.D. [address] [place] [phone] Discharge Disposition: Home or Self Care Scheduled [...] Total Score: 4 06/06/19 23 2:04 PM BLOCK INSPECTOR documented as of this encounter Care Teams Applications Intern Relationship Specialty Start Date End Date Clover Delaney M.D. [address] [place] [phone] PCP - General Internal Medicine 11/23/17 documented as of this encounter
--- OUTSIDE RECORDS SUMMARY | 2023-09-09 17:45 | XMS_ITS | Encounter Summary ---
Author Name Unknown Organization [facility] Address [address] [place] [address] Care Team Providers Care Home Care Manager Rn Name Role Phone Clover Delaney M.D. Primary Care Provider [phone]- [phone] Encounter Details Date Type Department Care Team (Late st Contact Info) Description 06/15/2023 1:00 PM DIRECTOR SOCIAL Education Division of Nephrology and Hypertension in [place], [place] [address] [place] [phone] Sera Casiano M.D., Ph.D. [address] [place] [phone] Sandeep Galicia, R.N. [address] [place] [phone] Chronic Kidney Disease Stage 5 Glomerular Filtration [...] Answer Date Recorded PHQ-2 Score 2 05/28/2023 [facility] [place] [facility] Occupat ional Health - Occupational [...] Assigned at Male 05/13/2021 10:11 AM DIRECTOR SOCIAL Gender Identity Male 11/02/2017 7:22 PM CDT Sexual Orientation Straight 11/02/2017 7: 22 PM CDT documented as of this encounter Last Filed Vital Signs Vital Sign Reading Time Taken Comments Blood Pressure 189/70 06/15/2023 2:08 PM DIRECTOR SOCIAL Pulse 52 06/15/2023 2:08 PM DIRECTOR SOCIAL Temperature - - Respiratory Rate - - Oxygen Saturation - - Inhaled Oxygen Concentration - - Weight 157 kg (345 lb 7.4 oz) 06/15/2023 2:08 PM DIRECTOR SOCIAL Height - - Body Mass Index 49.18 05/29/2023 7:57 AM DIRECTOR SOCIAL documented in this encounter Progress Notes * Sandeep Galicia R.N. - 06/15/2023 1:00 PM CST Patient was here today for second education visit on renal replacement therapies with Kidney Meteorological Engineer Nurse. Patient reports that he noted leg [...] is comfortable starting in center hemodialysis in [facility] if nephrology deem it necessary. Contact information for Kidney Care Advocatenurse was provided. Patient will be scheduled for follow up with Kidney Meteorological Engineer nurse. CTOR SOCIAL documented in this encounter Plan of Treatment Upcoming Encounters Date Type Department Care Team (Latest Contact Info) Description 09/10/2023 10:45 AM CDT Clinical Communication Virtual Review in [place], [place] 200 [place] [address] 09/10/2023 1:00 PM CDT Appointment Department of Radiology in [address] [place] [address] Sera Casiano M.D., Ph.D. [address] [place] [address] Discharge Disposition: Home or Self Care 09/10/2023 1:20 PM CDT Appointment Department of Laboratory Medicine in [address] [place] [address] Sera Casiano M.D., Ph.D. [address] [place] [phone] 09/10/2023 2:30 PM CDT Ancillary Procedure Department of Cardiovascular Diseases in [address] [phone] Clover Delaney M.D. [address] [place] [phone] Discharge Disposition: Home or Self Care 10/01/2023 9:30 AM CDT Comprehensive Visit Department of Cardiovascular Diseases in [address] [phone] Nikko Dey M.D. [address] [place] [phone] Discharge Disposition: Home or Self Care 10/05/2023 1:30 PM CDT Comprehensive Visit Division of Pulmonary Medicine in [place], [place] [address] [place] [phone] Luis Carrion M.B.B.S. [address] [place] [phone] 10/27/2023 2:25 PM CDT Appointment Department of Cardiovascular Diseases in [place], [place] [address] [place] [phone] Clover Delaney M.D. [address] [place] [phone] Discharge Disposition: Home or Self Care documented as of this encounter Visit Diagnoses Diagnosis Chronic Kidney Disease Stage 5 Glomerular Filtration Rate Less Than 15 (HCC) documented in this encounter Additional Health Concerns Assessment Noted Time PHQ-9 Depression Total Score: 4 06/06/19 23 2:04 PM DIRECTOR SOCIAL documented as of this encounter Care Teams Home Care Manager Rn Relationship Specialty Start Date End Date Clover Delaney M.D. [address] [place] [phone] PCP - General Internal Medicine 11/23/17 documented as of this encounter
--- OUTSIDE RECORDS SUMMARY | 2023-09-09 17:45 | XMS_ITS | Encounter Summary ---
Author Name Unknown Organization [facility] Address [address] [place] [address] Care Team Providers Care Bacteriologist Medical Name Role Phone Clover Delaney M.D. Primary Care Provider [phone]- [phone] Encounter Details Date Type Department Care Team (Late st Contact Info) Description 06/15/2023 Clinical Communication Division of Nephrology and Hypertension, [facility], in [place], [place] [address] [place] [address] Sandeep Galicia, RJosé LuisN. [address] [place] [phone] Social History Tobacco Use Types Packs/Day Years [...] Date Recorded PHQ-2 Score 2 05/28/2023 [facility] - Occupational [...] Sex Assigned at Male 05/13/2021 10:11 AM DATA ANALYTICS SPECIALIST Gender Identity Male 11/02/2017 7:22 PM [...] at 3:45 pm. Patient verbalized understanding plan. ANALYTICS SPECIALIST documented in this encounter Plan of Treatment Upcoming Encounters Date Type Department Care Team (Latest Contact Info) Description 09/10/2023 10:45 AM CDT Clinical Communication Virtual Review in [place], [place] 200 [place] [address] 09/10/2023 1:00 PM CDT Appointment Department of Radiology in [place] [address] [place] [phone] Sera Casiano M.D., Ph.D. [address] [place] [phone] Discharge Disposition: Home or Self Care 09/10/2023 1:20 PM CDT Appointment Department of Laboratory Medicine in [place] [address] [place] [phone] Sera Casiano M.D., Ph.D. [address] [place] [phone] 09/10/2023 2:30 PM CDT Ancillary Procedure Department of Cardiovascular Diseases in [address] [phone] Clover Delaney M.D. [address] [place] [phone] Discharge Disposition: Home or Self Care 10/01/2023 9:30 AM CDT Comprehensive Visit Department of Cardiovascular Diseases in [address] [phone] Nikko Dey M.D. [address] [place] [phone] Discharge Disposition: Home or Self Care 10/05/2023 1:30 PM CDT Comprehensive Visit Division of Pulmonary Medicine in [place], [place] [address] [place] [address] Luis Carrion M.B.BJosé LuisSJosé Luis [address] [place] [address] 10/27/2023 2:25 PM CDT Appointment Department of Cardiovascular Diseases in [place], [place] [address] [place] [phone] Clover Delaney M.D. [address] [place] [phone] Discharge Disposition: Home or Self Care documented as of this encounter Visit Diagnoses Not on filedocumented in this encounter Additional Health Concerns Assessment Noted Time PHQ-9 Depression Total Score: 4 06/06/19 23 2:04 PM DATA ANALYTICS SPECIALIST documented as of this encounter Care Teams Bacteriologist Medical Relationship Specialty Start Date End Date Clover Delaney M.D. [address] [place] [phone] PCP - General Internal Medicine 11/23/17 documented as of this encounter
--- OUTSIDE RECORDS SUMMARY | 2023-09-09 17:45 | XMS_ITS | Encounter Summary ---
Author Name Unknown Organization [facility] Address [address] [place] [address] Care Team Providers Care Spares Scheduler Name Role Phone Clover Delaney M.D. Primary Care Provider [phone] Reason for Referral * Specialty Diagnoses / Procedures Referred By Yenny hunter Referred To Contact RST [facility] [address] [place] [address] [facility] Referral ID Status Reason Start Date Expiration Date Visits Re quested Visits Authorized Scheduling Instructions Coordinate with Dr. North's visit please - kandice Hopkins ICAL COORDINATOR Encounter Details Date Type Department Care Team (Late st Contact Info) Description 06/16/2023 Orders Only Division of Nephrology and Hypertension in [place], [place] [address] [place] [phone] Sandeep Galicia, R.N. [address] [place] [phone] Chronic Kidney Disease Stage 4 Glomerular Filtration [...] week 07/28/2022 How often do you attend [facility] or [facility] services? Never 07/28/2022 Do you [...] Answer Date Recorded PHQ-2 Score 2 05/28/2023 [facility] of Occupat ional Health [...] Sex Assigned at Male 05/13/2021 10:11 AM CLERICAL COORDINATOR Gender Identity Male 11/02/2017 7:22 PM CDT Sexual Orientation Straight 11/02/2017 7: 22 PM CDT documented as of this encounter Plan of Treatment Upcoming Encounters Date Type Department Care Team (Latest Contact Info) Description 09/10/2023 10:45 AM CDT Clinical Communication Virtual Review in [place], [place] 200 [place] [address] 09/10/2023 1:00 PM CDT Appointment Department of Radiology in [place] [address] [place] [address] Sera Casiano M.D., Ph.D. [address] [place] [phone] Discharge Disposition: Home or Self Care 09/10/2023 1:20 PM CDT Appointment Department of Laboratory Medicine in [place] [address] [place] [phone] Sera Casiano M.D., Ph.D. [address] [place] [phone] 09/10/2023 2:30 PM CDT Ancillary Procedure Department of Cardiovascular Diseases in [address] [phone] Clover Delaney M.D. [address] [place] [phone] Discharge Disposition: Home or Self Care 10/01/2023 9:30 AM CDT Comprehensive Visit Department of Cardiovascular Diseases in [address] [phone] Nikko Dey M.D. [address] [place] [phone] Discharge Disposition: Home or Self Care 10/05/2023 1:30 PM CDT Comprehensive Visit Division of Pulmonary Medicine in [place], [place] [address] [place] [address] Luis Carrion M.B.BJosé LuisS. [address] [place] [phone] 10/27/2023 2:25 PM CDT Appointment Department of Cardiovascular Diseases in [place], [place] [address] [place] [phone] Clover Delaney M.D. [address] [place] [phone] Discharge Disposition: Home or Self Care Scheduled [...] Total Score: 4 06/06/19 23 2:04 PM CLERICAL COORDINATOR documented as of this encounter Care Teams Spares Scheduler Relationship Specialty Start Date End Date Clover Delaney M.D. [address] [place] [phone] PCP - General Internal Medicine 11/23/17 documented as of this encounter
--- OUTSIDE RECORDS SUMMARY | 2023-09-09 17:45 | XMS_ITS | Encounter Summary ---
Author Name Unknown Organization [facility] Address [address] [place] [address] Care Team Providers Care First Aid Director Name Role Phone Clover Delaney M.D. Primary Care Provider [phone]- [phone] Encounter Details Date Type Department Care Team (Late st Contact Info) Description 06/26/2023 3:00 PM PHOTOGRAPHER NEWS Education Division of Nephrology and Hypertension in [place], [place] [address] [place] [phone] Sera Casiano M.D., Ph.D. [address] [place] [phone] Sandeep Galicia, R.N. [address] [place] [phone] Chronic Kidney Disease Stage 4 Glomerular Filtration [...] How often do you attend chur or methodist services? Never 07/28/2022 Do you [...] Answer Date Recorded PHQ-2 Score 2 05/28/2023 [facility] [place] of Occupat ional Health - Occupational Stress [...] Sex Assigned at Male 05/13/2021 10:11 AM PHOTOGRAPHER NEWS Gender Identity Male 11/02/2017 7:22 PM CDT Sexual Orientation Straight 11/02/2017 7: 22 PM CDT documented as of this encounter Progress Notes * Sandeep Galicia R.N. - 06/26/2023 3:00 PM CST Patient was here today for third education visit on renal replacement therapies with Kidney Cnc Programmer Nurse patient states that he is feeling better than earlier this month. We reviewed patient'sblood pressure, dietary restrictions and weights. We discussed that he will need to plan soon for dialysis catheter/fistula placement soon at his local [facility] in [place]. I discussed that the decision to stat dialysis is decided by a decision with Dr. Armenta and him. Patient and verbalized understanding. Contact information for Kidney Cnc Programmer nurse was provided. Patient will be scheduled for follow up with Kidney Cnc Programmer nurse. OGRAPHER NEWS documented in this encounter Plan of Treatment Upcoming Encounters Date Type Department Care Team (Latest Contact Info) Description 09/10/2023 10:45 AM CDT Clinical Communication Virtual Review in [place], [place] 200 [place] [phone] 09/10/2023 1:00 PM CDT Appointment Department of Radiology in [place] [address] [place] [phone] Sera Casiano M.D., Ph.D. [address] [place] [phone] Discharge Disposition: Home or Self Care 09/10/2023 1:20 PM CDT Appointment Department of Laboratory Medicine in [place], [place] [address] [place] [address] [address] Sera Casiano M.D., Ph.D. [address] [place] [phone] 09/10/2023 2:30 PM CDT Ancillary Procedure Department of Cardiovascular Diseases in [address] [phone] Clover Delaney M.D. 1 [place] [phone] Discharge Disposition: Home or Self Care 10/01/2023 9:30 AM CDT Comprehensive Visit Department of Cardiovascular Diseases in [place], [place] 701 [place] [phone] Nikko Dey M.D. 701 [place] [phone] Discharge Disposition: Home or Self Care 10/05/2023 1:30 PM CDT Comprehensive Visit Division of Pulmonary Medicine in [place], [place] [address] [place] [address] Luis Carrion M.B.B.S. [address] [place] [phone] 10/27/2023 2:25 PM CDT Appointment Department of Cardiovascular Diseases in [place], [place] [address] [place] [address] Clover Delaney M.D. 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 [address] [place] [phone] PCP - General Internal Medicine 11/23/17 documented as of this encounter
--- OUTSIDE RECORDS SUMMARY | 2023-09-09 17:45 | XMS_ITS | Encounter Summary ---
Author Name Unknown Organization [facility] Address [address] [place] [address] Care Team Providers Care Wood Sash And Frame Carpenter Name Role Phone Clover Delaney M.D. Primary Care Provider [phone]- [phone] Encounter Details Date Type Department Care Team (Latest Contact Info) Description 06/15/2023 3:20 PM APPLIANCE ASSEMBLER - 06/15/2023 11:59 PM [facility] Encounter Department of Laboratory Medicine and Pathology, [facility], in [place], [place] [address] [place] [address] Sera Casiano M.D., Ph.D. 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 5 mL 11/06/2022 amLODIPine (NORVASC) 5 mg tablet Take 1 [...] daily. 5 mL 02/05/2023 09/07/2023 torsemide (DEMADEX) 10 mg tablet Take 3 tablets (30 mg total) by mouth daily. 270 tablet 3 01/16/2023 06/26/2023 documented as of this encounter Plan of Treatment Upcoming Encounters Date Type Department Care Team (Latest Contact Info) Description 09/10/2023 10:45 AM CDT Clinical Communication Virtual Review in [place], [place] 200 [place] [address] 09/10/2023 1:00 PM CDT Appointment Department of Radiology in [place] [address] [place] [phone] Sera Casiano M.D., Ph.D. [address] [place] [phone] Discharge Disposition: Home or Self Care 09/10/2023 1:20 PM CDT Appointment Department of Laboratory Medicine in [place] [address] [place] [address] Sera Casiano M.D., Ph.D. [address] [place] [phone] 09/10/2023 2:30 PM CDT Ancillary Procedure Department of Cardiovascular Diseases in [address] [phone] Clover Delaney M.D. [address] [place] [phone] Discharge Disposition: Home or Self Care 10/01/2023 9:30 AM CDT Comprehensive Visit Department of Cardiovascular Diseases in [address] [phone] Nikko Dey M.D. [address] [place] [phone] Discharge Disposition: Home or Self Care 10/05/2023 1:30 PM CDT Comprehensive Visit Division of Pulmonary Medicine in [place], [place] [address] [place] [phone] Luis Carrion M.B.B.S. [address] [place] [phone] 10/27/2023 2:25 PM CDT Appointment Department of Cardiovascular Diseases in [place], [place] [address] [place] [phone] Clover Delaney M.D. 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 Rate Less Than 15 (HCC) HBC TOTAL AB, SERUM Routine 06/15/2023 4 :06 PM APPLIANCE ASSEMBLER Chronic Kidney Disease Stage 5 Glomerular Filtration Rate Less Than 15 (HCC) HBS ANTIBODY, SERUM Routine 06/15/2023 4 :06 PM APPLIANCE ASSEMBLER Chronic Kidney Disease Stage 5 Glomerular Filtration Rate Less Than 15 (HCC) HEPATITIS B SURFACE ANTIGEN Routine 06/15/2023 4:06 PM APPLIANCE ASSEMBLER Chronic Kidney Disease Stage 5 Glomerular Filtration Rate Less Than 15 (HCC) BASIC METABOLIC PANEL, S/P Routine 06/15/2023 4:06 PM APPLIANCE ASSEMBLER Chronic Kidney Disease Stage 5 Glomerular Filtration Rate Less Than 15 (HCC) documented in this encounter Results * QuantiFERON-Tb Gold Plus, Blood (06/15/2023 4:07 PM APPLIANCE ASSEMBLER) [facility] QuantiFERON-TB Gold Plus Result Negative Negative 06/16/2023 12:08 PM APPLIANCE ASSEMBLER SDS Comment: No interferon-gamma response to M. [...] Nil Result 0.02 IU/mL 06/16/2023 12:08 PM APPLIANCE ASSEMBLER SDSC TB2 Ag minus Nil Result 0.01 IU/mL 06/16/2023 12:08 PM APPLIANCE ASSEMBLER SDSC Mitogen minus Nil Result 3.42 IU/mL 06/16/2023 12:08 PM APPLIANCE ASSEMBLER SDSC Nil Result 0.04 IU/mL 06/16/2023 12:08 PM APPLIANCE ASSEMBLER SDSC Blood (Blood, Venous) 06/15/2023 4:07 PM APPLIANCE ASSEMBLER 06/15/2023 5:59 PM APPLIANCE ASSEMBLER Narrative [facility] - 06/16/2023 12:08 PM APPLIANCE ASSEMBLER Specimen Information: Specimen ID: [id number] Specimen Type: Blood Specimen Collection Start Date: 06/15/2023 ??4:07 PM Specimen Received Date: 06/15/2023 ??5:59 PM Specimen ID: [id number] Specimen Type: Blood Specimen Collection Start Date: 06/15/2023 ??4:07 PM Specimen Received Date: 06/15/2023 ??5:59 PM Specimen ID: [id number] Specimen Type: Blood Specimen Collection Start Date: 06/15/2023 ??4:07 PM Specimen Received Date: 06/15/2023 ??5:59 PM Specimen ID: [id number] Specimen Type: Blood Specimen Collection Start Date: 06/15/2023 ??4:07 PM Specimen Received Date: 06/15/2023 ??5:59 PM Sera Hyman M.D., Ph.D. LAB [place] CROBIOLOGY - BLOOD ORDERABLES [facility] [address] [place] [address] [facility] [address] [place] [address] * (ABNORMAL) Basic Metabolic Panel (06/15/2023 4:06 PM APPLIANCE ASSEMBLER) Potassium, S 5.6(H) 3.6 - 5.2 mmol/L 06/15/2023 4:59 PM APPLIANCE ASSEMBLER DTL Sodium, S 142 135 - 145 mmol/L 06/15/2023 4:59 PM APPLIANCE ASSEMBLER DTL Chloride, S 105 98 - 107 mmol/L 06/15/2023 4:59 PM APPLIANCE ASSEMBLER DTL Bicarbonate, S 23 22 - 29 mmol/L 06/15/2023 4:59 PM APPLIANCE ASSEMBLER DTL Anion Gap 14 7 - 15 06/15/2023 4:59 PM APPLIANCE ASSEMBLER DTL BUN (Blood Urea Nitrogen), S 68(H) 8 - 24 mg/dL 06/15/2023 4:59 PM APPLIANCE ASSEMBLER DTL Creatinine 4.61(H) 0.74 - 1.35 mg/dL 06/15/2023 4:59 PM APPLIANCE ASSEMBLER DTL Estimated GFR (eGFR) <15(L) >=60 mL/min/BSA 06/15/2023 4:59 PM APPLIANCE ASSEMBLER DTL Comment: Estimated GFR calculated using the 2020 CKD_EPI creatinine equation. Calcium, Total, S 8.8 8.8 - 10.2 mg/dL 06/15/2023 4:59 PM APPLIANCE ASSEMBLER DTL Glucose, S 130 70 - 140 mg/dL 06/15/2023 4:59 PM APPLIANCE ASSEMBLER DTL Blood (Blood, Venous) 06/15/2023 4:06 PM APPLIANCE ASSEMBLER 06/15/2023 4:42 PM APPLIANCE ASSEMBLER Sera Hyman M.D., Ph.D. LAB BL OOD ADD-ON Performing Organization Address City/[facility]/ZIP Co de Phone Number [facility] [address] [place] [address], [place] DTL [facility] [address] [place] [address] * Hepatitis B Surface Antigen (06/15/2023 4:06 PM APPLIANCE ASSEMBLER) HBs Antigen, S Negative Negative 06/15/2023 10:03 PM APPLIANCE ASSEMBLER [facility] Blood (Blood, Venous) 06/15/2023 4:06 PM APPLIANCE ASSEMBLER 06/15/2023 8:15 PM APPLIANCE ASSEMBLER Sera Hyman M.D., Ph.D. LAB [facility] BLOOD ORDERABLES Performing Organization Address City/[facility] Co de Phone Number [facility] [address] [place] [address] [facility] [address] [place] [address] * HCV Ab w/Reflex to HCV PCR, Serum (06/15/2023 4:06 PM APPLIANCE ASSEMBLER) HCV Ab, S Negative Negative 06/15/2023 10:21 PM APPLIANCE ASSEMBLER [facility] Comment:[id number]-vt-[id number] rat io is <1.00. Blood (Blood, Venous) 06/15/2023 4:06 PM APPLIANCE ASSEMBLER 06/15/2023 8:15 PM APPLIANCE ASSEMBLER Sera Hyman M.D., Ph.D. LAB [facility] BLOOD ORDERABLES Performing Organization Address City/[facility]/ZIP Co de Phone Number [facility] [address] [place] [address] [facility] [address] [place] [address] * HBc Total Ab, Serum (06/15/2023 4:06 PM APPLIANCE ASSEMBLER) HBc Total Ab, S Negative Negative 06/15/2023 10:17 PM APPLIANCE ASSEMBLER [facility] Blood (Blood, Venous) 06/15/2023 4:06 PM APPLIANCE ASSEMBLER 06/15/2023 8:15 PM APPLIANCE ASSEMBLER Sera Hyman M.D., Ph.D. LAB ND CROBIOLOGY - BLOOD ORDERABLES Performing Organization Address [facility] Co de Phone Number [facility] [address] [place] [address] [facility] [address] [place] [address] * HBs Antibody, Serum (06/15/2023 4:06 PM APPLIANCE ASSEMBLER) HBs Antibody, S Negative 06/15/2023 10:18 PM APPLIANCE ASSEMBLER [facility] Comment: Patient is presumed to be not immune to infection with HBV. ----REFERENCE VALUE---- Unvaccinated: Negative Vaccinated: Positive HBs Antibody, Quantitative, S <5.0 mIU/mL 06/15/2023 10:18 PM APPLIANCE ASSEMBLER [facility] Comment: ----REFERENCE VALUE---- Unvaccinated: <5.0 Vaccinated: >=12.0 Blood (Blood, Venous) 06/15/2023 4:06 PM APPLIANCE ASSEMBLER 06/15/2023 8:15 PM APPLIANCE ASSEMBLER Sera Hyman M.D., Ph.D. LAB [place] CROBIOLOGY - BLOOD ORDERABLES Performing Organization Address [facility] Co de Phone Number [facility] [address] [place] [address] 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 [address] [place] [phone] PCP - General Internal Medicine 11/23/17 documented as of this encounter
--- OUTSIDE RECORDS SUMMARY | 2023-09-09 17:45 | XMS_ITS | Encounter Summary ---
Author Name Unknown Organization [facility] Address [address] [place] [address] Care Team Providers Care Cargo Agent Name Role Phone Clover Delaney M.D. Primary Care Provider [phone]- [phone] Encounter Details Date Type Department Care Team (Late st Contact Info) Description 06/16/2023 Orders Only Department of Community Internal Medicine in [place], [place] [address] [place] [address] [place] [phone] Clover Delaney M.D. [address] [place] [phone] Social History Tobacco Use Types [...] Answer Date Recorded PHQ-2 Score 2 05/28/2023 [facility] [place] of Occupat ional Health - Occupational Stress [...] Assigned at Male 05/13/2021 10:11 AM MANAGER MARKETING Gender Identity Male 11/02/2017 7:22 PM CDT Sexual Orientation Straight 11/02/2017 7: 22 PM CDT documented as of this encounter Plan of Treatment Upcoming Encounters Date Type Department Care Team (Latest Contact Info) Description 09/10/2023 10:45 AM CDT Clinical Communication Virtual Review in [place], [place] [address] [place] [address] 09/10/2023 1:00 PM CDT Appointment Department of Radiology in [place] [address] [place] [address] Sera Casiano M.D., Ph.D. [address] [place] [phone] Discharge Disposition: Home or Self Care 09/10/2023 1:20 PM CDT Appointment Department of Laboratory Medicine in [place] [address] [place] [address] Sera Casiano M.D., Ph.D. [address] [place] [phone] 09/10/2023 2:30 PM CDT Ancillary Procedure Department of Cardiovascular Diseases in [address] [phone] Clover Delaney M.D. [address] [place] [phone] Discharge Disposition: Home or Self Care 10/01/2023 9:30 AM CDT Comprehensive Visit Department of Cardiovascular Diseases in [address] [phone] Nikko Dey M.D. [address] [place] [phone] Discharge Disposition: Home or Self Care 10/05/2023 1:30 PM CDT Comprehensive Visit Division of Pulmonary Medicine in [place], [place] [address] [place] [phone] Luis Carrion M.B.B.S. [address] [place] [phone] 10/27/2023 2:25 PM CDT Appointment Department of Cardiovascular Diseases in [place], [place] [address] [place] [address] Clover Delaney M.D. [address] [place] [phone] Discharge Disposition: Home or Self Care documented as of this encounter Visit Diagnoses Not on filedocumented in this encounter Additional Health Concerns Assessment Noted Time PHQ-9 Depression Total Score: 4 06/06/19 23 2:04 PM MANAGER MARKETING documented as of this encounter Care Teams Cargo Agent Relationship Specialty Start Date End Date Clover Delaney M.D. [address] [place] [phone] PCP - General Internal Medicine 11/23/17 documented as of this encounter
--- OUTSIDE RECORDS SUMMARY | 2023-09-09 17:46 | XMS_ITS | Encounter Summary ---
Author Name Unknown Organization [facility] Address [address] [place] [address] Care Team Providers Care Web Applications Administrator Name Role Phone Clover Delaney M.D. 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 200 [place] [address] [facility] Region Referral ID Status Reason Start Date Expiration Date Visits Re quested Visits Authorized [id number] Closed 09/03/2022 04/26/2024 12 12 Encounter Details Date Type Department Care Team (Latest Contact Info) Description 06/12/2023 10:50 AM A/C TECHNICIAN - 06/12/2023 11:59 PM A/C TECHNICIAN Hospital Encounter Department of Laboratory Medicine in [place] [address] [place] [address] Mónica Portillo APRN, C.N.P., M.S. 200 [place] [phone] Hypertension And Chronic Kidney Disease Stage 5 [...] week 07/28/2022 How often do you attend [facility] or nondenominational services? Never 07/28/2022 Do you [...] Answer Date Recorded PHQ-2 Score 2 05/28/2023 [facility] of Occupat ional [...] Sex Assigned at Male 05/13/2021 10:11 AM A/C TECHNICIAN Gender Identity Male 11/02/2017 7:22 PM [...] by mouth as needed. miscellaneous medical supply [facility] CPAP Supplies See Instructions, CPAP machine, mask 1 ea x 4 refills, headgear 1 ea x 2 refills, tubing 1 ea x 4 refills, filters 2 ea per month, tub 1 ea x 2 refills, mask seal 1 ea x 2 refills DX G47.33, length of need 99, 1 each, 0 Refill(s) 10/20/2016 miscellaneous medical supply [facility] Head Gear for CPAP Machine See Instructions, fax to patient at [phone], 1 each 01/17/2014 MULTIVITAMIN ORAL Daily Multiple Vitamins See Instructions, Take 1 tablet by mouth daily. 07/23/2013 ONETOUCH DELICA LANCETS 33 gauge [facility] 3 08/02/2018 OneTouch [...] AM CDT Clinical Communication Virtual Review in [place], [place] 200 [place] [address] 09/10/2023 1:00 PM CDT Appointment Department of Radiology in [place] [address] [place] [phone] Sera Casiano M.D., Ph.D. [address] [place] [phone] Discharge Disposition: Home or Self Care 09/10/2023 1:20 PM CDT Appointment Department of Laboratory Medicine in [place] [address] [place] [address] Sera Casiano M.D., Ph.D. [address] [place] [phone] 09/10/2023 2:30 PM CDT Ancillary Procedure Department of Cardiovascular Diseases in [address] [address] Clover Delaney M.D. [address] [place] [phone] Discharge Disposition: Home or Self Care 10/01/2023 9:30 AM CDT Comprehensive Visit Department of Cardiovascular Diseases in [address] [phone] Nikko Dey M.D. [address] [place] [phone] Discharge Disposition: Home or Self Care 10/05/2023 1:30 PM CDT Comprehensive Visit Division of Pulmonary Medicine in [place], [place] [address] [place] [address] Luis Carrion M.B.B.S. [address] [place] [address] 10/27/2023 2:25 PM CDT Appointment Department of Cardiovascular Diseases in [place], [place] [address] [place] [address] Clover Delaney M.D. [address] [place] [phone] Discharge Disposition: Home or Self Care documented as of this encounter Procedures Procedure Name Priority Date/Time Associated Diagnosis Comments CBC WITH DIFFERENTIAL, B Routine 06/12/2023 10:53 AM A/C TECHNICIAN Anemia Of Chronic Renal Disease FOLATE, S Routine 06/12/2023 10:53 AM A/C TECHNICIAN Hypertension And Chronic Kidney Disease Stage 5 (HCC) Proteinuria 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 Acute Metabolic Acidosis Hyperphosphatemia Hypocalcemia VITAMIN B12 ASSAY, S Routine 06/12/2023 10:53 AM A/C TECHNICIAN Hypertension And Chronic Kidney Disease Stage 5 (HCC) Proteinuria 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 Acute Metabolic Acidosis Hyperphosphatemia Hypocalcemia documented in this encounter Results * (ABNORMAL) CBC with Differential, Blood (06/12/2023 10:53 AM A/C TECHNICIAN) Hemoglobin 7.4(L) 13.2 - 16.6 g/dL 06/12/2023 7:24 PM A/C TECHNICIAN RDWG Hematocrit 24.1(L) 38.3 - 48.6 % 06/12/2023 7:24 PM A/C TECHNICIAN RDWG Erythrocytes 2.42(L) 4.35 - 5.65 x10(12)/L 06/12/2023 7:24 PM A/C TECHNICIAN RDWG MCV 99.6(H) 78.2 - 97.9 fL 06/12/2023 7:24 PM A/C TECHNICIAN RDWG RBC Distrib Width 14.7(H) 11.8 - 14.5 % 06/12/2023 7:24 PM A/C TECHNICIAN RDWG Platelet Count 159 135 - 317 x10(9)/L 06/12/2023 7:24 PM A/C TECHNICIAN RDWG Leukocytes 7.6 3.4 - 9.6 x10(9)/L 06/12/2023 7:24 PM A/C TECHNICIAN RDWG Neutrophils 6.33 1.56 - 6.45 x10(9)/L 06/12/2023 7:23 PM A/C TECHNICIAN RDWG Lymphocytes 0.55(L) 0.95 - 3.07 x10(9)/L 06/12/2023 7:24 PM A/C TECHNICIAN RDWG Monocytes 0.52 0.26 - 0.81 x10(9)/L 06/12/2023 7:24 PM A/C TECHNICIAN RDWG Eosinophils 0.16 0.03 - 0.48 x10(9)/L 06/12/2023 7:24 PM A/C TECHNICIAN RDWG Basophils 0.03 0.01 - 0.08 x10(9)/L 06/12/2023 7:24 PM A/C TECHNICIAN RDWG Blood (Blood, Venous) 06/12/2023 10:53 AM A/C TECHNICIAN 06/12/2023 7:04 PM A/C TECHNICIAN Mónica E Sunberg RESAWYER, C.N.P., M.S. LAB BLOOD ADD-ON [facility] [address] [place] [address], [facility] RDWG [facility] [place] [address] [place] [address] * Folate (06/12/2023 10:53 AM A/C TECHNICIAN) Folate, S 12.6 >=4.0 mcg/L 06/13/2023 2:09 AM A/C TECHNICIAN ECLR Comment: Biotin has been identified by the delivery tech as a potential interfering substance. Higher concentrations of biotin may be found in multivitamins, hair/nail supplements, and workout supplements. If the result does not match clinical observations, repeat testing after patient refrains from the use of supplements for at least 12 hours. Blood (Blood, Venous) 06/12/2023 10:53 AM A/C TECHNICIAN 06/12/2023 9:30 PM A/C TECHNICIAN Mónica Portillo APRN, C.N.P., M.S. LAB BLOOD ADD-ON Performing Organization Address City/[facility] Co de Phone Number [facility] [address] [place] [address], [facility] ECLR [place] [address] * (ABNORMAL) Vitamin B12 Assay (06/12/2023 10:53 AM A/C TECHNICIAN) Vitamin B12 Assay, S 1249(H) 232 - 1245 ng/L 06/13/2023 2:09 AM A/C TECHNICIAN ECLR Comment: Biotin has been identified by the delivery tech as a potential interfering substance. Higher concentrations of biotin may be found in multivitamins, hair/nail supplements, and workout supplements. If the result does not match clinical observations, repeat testing after patient refrains from the use of supplements for at least 12 hours. Blood (Blood, Venous) 06/12/2023 10:53 AM A/C TECHNICIAN 06/12/2023 9:30 PM A/C TECHNICIAN Mónica Portillo APRN, C.N.P., M.S. LAB BLOOD ADD-ON [facility] [address] [place] [address], [facility] ECLR [facility] [place] [address] [place] [address] documented in this encounter Visit Diagnoses Diagnosis [...] Total Score: 4 06/06/19 23 2:04 PM A/C TECHNICIAN documented as of this encounter Care Teams Web Applications Administrator Relationship Specialty Start Date End Date Clover Delaney M.D. [address] [place] [address] PCP - General Internal Medicine 11/23/17 documented as of this encounter
--- OUTSIDE RECORDS SUMMARY | 2023-09-09 17:46 | XMS_ITS | Encounter Summary ---
Author Name Unknown Organization [facility] Address [address] [place] [address] Care Team Providers Care Leather Novelty Parts Cutter Name Role Phone Clover Delaney M.D. Primary Care Provider +1- [phone] Reason for Visit * Reason Comments Eye Exam * Outpatient (Routine) - Closed Specialty Diagnoses / Procedures Referred By Yenny hunter Referred To Contact Ophthalmology Justin Bunch M.D. [address] [place] [address] [facility] Referral ID Status Reason Start Date Expiration Date Visits Re quested Visits Authorized [id number] Closed 03/06/2023 03/05/2026 1 1 Encounter Details Date Type Department Care Team (Latest Contact Info) Description 06/15/2023 2:45 PM INSPECTOR GLASS OR MIRROR Office Visit Department of Ophthalmology in [place], [place] [address] [place] [phone] Justin Bunch M.D. [address] [place] [address] Diabetes Mellitus Type 2 With [...] Answer Date Recorded PHQ-2 Score 2 05/28/2023 [facility] [place] of Occupat ional Health - Occupational Stress [...] Sex Assigned at Male 05/13/2021 10:11 AM INSPECTOR GLASS OR MIRROR Gender Identity Male 11/02/2017 7:22 PM CDT Sexual Orientation Straight 11/02/2017 7: 22 PM CDT documented as of this encounter Progress Notes * Justin Bunch M.D. - 06/15/2023 2:45 PM CST Philip Patel was seen today for PDR/DME # Posterior vitreous detachment, RIGHT eye # hx Endophthalmitis, LEFT eye # hx Total retinal detachment, LEFT eye # Hypotony, LEFT eye -tap/inject (11/10/21 [facility]) after intravitreal injection on 11/05/21 -No growth [...] Plan FU 12-14 weeks with OCT macula ECTOR GLASS OR MIRROR documented in this encounter Plan of Treatment Upcoming Encounters Date Type Department Care Team (Latest Contact Info) Description 09/10/2023 10:45 AM CDT Clinical Communication Virtual Review in [place], [place] 200 [place] [address] 09/10/2023 1:00 PM CDT Appointment Department of Radiology in [place] [address] [place] [address] Sera Casiano M.D., Ph.D. [address] [place] [phone] Discharge Disposition: Home or Self Care 09/10/2023 1:20 PM CDT Appointment Department of Laboratory Medicine in [place] [address] [place] [address] Sera Casiano M.D., Ph.D. [address] [place] [phone] 09/10/2023 2:30 PM CDT Ancillary Procedure Department of Cardiovascular Diseases in [address] [address] Clover Delaney M.D. [address] [place] [phone] Discharge Disposition: Home or Self Care 10/01/2023 9:30 AM CDT Comprehensive Visit Department of Cardiovascular Diseases in [address] [phone] Nikko Dey M.D. [address] [place] [phone] Discharge Disposition: Home or Self Care 10/05/2023 1:30 PM CDT Comprehensive Visit Division of Pulmonary Medicine in [place], [place] [address] [place] [phone] Luis Carrion M.B.B.S. [address] [place] [phone] 10/27/2023 2:25 PM CDT Appointment Department of Cardiovascular Diseases in [place], [place] [address] [place] [address] Clover Delaney M.D. 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 [address] [place] [address] PCP - General Internal Medicine 11/23/17 documented as of this encounter
--- OUTSIDE RECORDS SUMMARY | 2023-09-09 17:46 | XMS_ITS | Encounter Summary ---
Author Name Unknown Organization [facility] Address [address] [place] [address] Care Team Providers Care Enterprise Resource Planning Consultant Name Role Phone Clover Delaney M.D. Primary Care Provider +1- [phone] Reason for Visit * Reason Onset Date Comments Clarification on Aranesp 06/04/2023 Encounter Details Date Type Department Care Team (Latest Contact Info) Description 06/04/2023 Clinical Communication Division of Nephrology and Hypertension in [place], [place] [address] [place] [phone] Sera Casiano M.D., Ph.D. [address] [place] [address] Clarification on [facility] Social History Tobacco Use Types [...] Answer Date Recorded PHQ-2 Score 2 05/28/2023 [facility] [...] at Male 05/13/2021 10:11 AM DIRECTOR OF ANALYTICS Gender Identity Male 11/02/2017 7:22 PM CDT Sexual Orientation Straight 11/02/2017 7: 22 PM CDT documented as of this encounter Miscellaneous Notes * Telephone Encounter - Kirstie Ramirez - 06/04/2023 8:18 AM CST Caller is: other: Authorization YES Preferred Communication Method: [phone] Reason for call: Cint[facility] [place] called regarding the Aranesp order that they receivedfrom Dr. North for Mr. Patel. They need parameters on when to give the medication as well as whether Dr. North wants them to check hemoglobin every time and then give Aranesp if below 10, or just give without doing labs. CTOR OF ANALYTICS documented in this encounter Plan of Treatment Upcoming Encounters Date Type Department Care Team (Latest Contact Info) Description 09/10/2023 10:45 AM CDT Clinical Communication Virtual Review in [address] [address] 09/10/2023 1:00 PM CDT Appointment Department of Radiology in [place] [address] [place] [address] Sera Casiano M.D., Ph.D. [address] [place] [phone] Discharge Disposition: Home or Self Care 09/10/2023 1:20 PM CDT Appointment Department of Laboratory Medicine in [place] [address] [place] [address] Sera Casiano M.D., Ph.D. [address] [place] [phone] 09/10/2023 2:30 PM CDT Ancillary Procedure Department of Cardiovascular Diseases in [address] [phone] Clover Delaney M.D. [address] [place] [phone] Discharge Disposition: Home or Self Care 10/01/2023 9:30 AM CDT Comprehensive Visit Department of Cardiovascular Diseases in [place], [place] 701 [place] [phone] Nikko Dey M.D. 701 [place] [phone] Discharge Disposition: Home or Self Care 10/05/2023 1:30 PM CDT Comprehensive Visit Division of Pulmonary Medicine in [place], [place] [address] [place] [address] Luis Carrion M.B.B.S. [address] [place] [address] 10/27/2023 2:25 PM CDT Appointment Department of Cardiovascular Diseases in [place], [place] [address] [place] [address] Clover Delaney M.D. [address] [place] [phone] Discharge Disposition: Home or Self Care documented as of this encounter Visit Diagnoses Not on filedocumented in this encounter Additional Health Concerns Assessment Noted Time PHQ-9 Depression Total Score: 4 06/06/19 23 2:04 PM DIRECTOR OF ANALYTICS documented as of this encounter Care Teams Enterprise Resource Planning Consultant Relationship Specialty Start Date End Date Clover Delaney M.D. [address] [place] [phone] PCP - General Internal Medicine 11/23/17 documented as of this encounter
--- OUTSIDE RECORDS SUMMARY | 2023-09-09 17:46 | XMS_ITS | Encounter Summary ---
Author Name Unknown Organization [facility] Address [address] [place] [address] Care Team Providers Care English Adjunct Faculty Name Role Phone Clover Delaney M.D. Primary Care Provider +1- [phone] Encounter Details Date Type Department Care Team (Late st Contact Info) Description 06/04/2023 Orders Only Division of Gastroenterology in [place], [place] [address] [place] [phone] Evelio Graham M.D. [address] [place] [phone] Genetic Susceptibility To Disease Social History Tobacco [...] Answer Date Recorded PHQ-2 Score 2 05/28/2023 [facility] [place] of Occupat ional Health - Occupational Stress [...] Sex Assigned at Male 05/13/2021 10:11 AM CONTROL SYSTEMS SPECIALIST Gender Identity Male 11/02/2017 7:22 PM CDT Sexual Orientation Straight 11/02/2017 7: 22 PM CDT documented as of this encounter Plan of Treatment Upcoming Encounters Date Type Department Care Team (Latest Contact Info) Description 09/10/2023 10:45 AM CDT Clinical Communication Virtual Review in [place], [place] 200 [place] [address] 09/10/2023 1:00 PM CDT Appointment Department of Radiology in [place] [address] [place] [address] Sera Casiano M.D., Ph.D. [address] [place] [phone] Discharge Disposition: Home or Self Care 09/10/2023 1:20 PM CDT Appointment Department of Laboratory Medicine in [place] [address] [place] [phone] Sera Casiano M.D., Ph.D. [address] [place] [phone] 09/10/2023 2:30 PM CDT Ancillary Procedure Department of Cardiovascular Diseases in [address] [address] Clover Delaney M.D. [address] [place] [phone] Discharge Disposition: Home or Self Care 10/01/2023 9:30 AM CDT Comprehensive Visit Department of Cardiovascular Diseases in [address] [phone] Nikko Dey M.D. [address] [place] [phone] Discharge Disposition: Home or Self Care 10/05/2023 1:30 PM CDT Comprehensive Visit Division of Pulmonary Medicine in [place], [place] [address] [place] [phone] Luis Carrion M.B.B.S. [address] [place] [phone] 10/27/2023 2:25 PM CDT Appointment Department of Cardiovascular Diseases in [place], [place] [address] [place] [address] Clover Delaney M.D. [address] [place] [phone] Discharge Disposition: Home or Self Care documented as of this encounter Procedures Procedure Name Priority Date/Time Associated Diagnosis Comments EXT TAPESTRY Routine 05/21/2021 12:00 AM CONTROL SYSTEMS SPECIALIST Genetic Susceptibility To Disease documented in this encounter Results * EXT Tapestry (05/21/2021 12:00 AM CONTROL SYSTEMS SPECIALIST) Gene Studied BRCA1,BRCA2,MLH1,MSH 2, MSH6,PMS2,EPCAM,APOB,L DLR,LDLRAP1,PCSK9 08/22/2021 [...] enriched using a custom set of reagents (Analyte Health+ chemistry). Targeted regions were sequenced using an Illumina DNA sequencing system. Your sequence was matched to a modified version of the industry standard reference genome (GRCh38). Variant calling was completed using a customized version of [employer]'s Celulares.comq software, requiring 20x coverage for validated variant calls. Copy Number Variants (CNVs) were called using a proprietary bioinformatics pipeline that compared the coverage profile of your sample with the coverage profiles of other reference set samples. [facility] 2threads then analyzed the generated variant data for the exons and 10 bp of flanking intronic sequence (and select tagged intronic variants) of the 11 genes included in Rip van Wafels from the [employer] Database. Your sample was reviewed for single [...] and medical management. 08/22/2021 12:00 AM T [facility] Human Reference Sequence Assembly GRCh38 08/22/2021 12:00 AM [facility] Saliva (Mouth) 05/21/2021 Evelio Graham M.D. LAB GENETI C TESTING LONGBRANCH [place] [address] [facility], [address] [place] [address], [facility] [address] [facility], [address] [place] [address] documented in this encounter Visit Diagnoses Diagnosis Genetic Susceptibility To Disease documented in this encounter Additional Health Concerns Assessment Noted Time PHQ-9 Depression Total Score: 4 06/06/19 23 2:04 PM CONTROL SYSTEMS SPECIALIST documented as of this encounter Care Teams English Adjunct Faculty Relationship Specialty Start Date End Date Clover Delaney M.D. [address] [place] [address] PCP - General Internal Medicine 11/23/17 documented as of this encounter
--- OUTSIDE RECORDS SUMMARY | 2023-09-09 17:46 | XMS_ITS | Encounter Summary ---
Author Name Unknown Organization [facility] Address [address] [place] [address] Care Team Providers Care Rfid Technician Name Role Phone Clover Delaney M.D. Primary Care Provider [phone] Reason for Visit * Reason Comments Med Refill Encounter Details Date Type Department Care Team (Late st Contact Info) Description 06/02/2023 Refill Department of Community Internal Medicine in [address] [place] [phone] Karlene Rodríguez, TRIXIE, C.N.P., D.N.P. [address] [place] [phone] Med Refill Social History Tobacco Use Types [...] you attend chur ch or temple services? Never 07/28/2022 Do you belong to [...] Answer Date Recorded PHQ-2 Score 2 05/28/2023 [facility] [place] of Occupat ional Health - Occupational Stress [...] Sex Assigned at Male 05/13/2021 10:11 AM MANAGEMENT CONSULTANT Gender Identity Male 11/02/2017 7:22 PM CDT Sexual Orientation Straight 11/02/2017 7: 22 PM CDT documented as of this encounter Miscellaneous Notes * Telephone Encounter - Alanis Rodriguez - 06/03/2023 7:44 AM CST Lab Results Component Value Date HGBA1C 6.8 (H) 03/30/2023 GEMENT CONSULTANT documented in this encounter Plan of Treatment Upcoming Encounters Date Type Department Care Team (Latest Contact Info) Description 09/10/2023 10:45 AM CDT Clinical Communication Virtual Review in [place], [place] 200 [place] [address] 09/10/2023 1:00 PM CDT Appointment Department of Radiology in [place] [address] [place] [address] Sera Casiano M.D., Ph.D. [address] [place] [phone] Discharge Disposition: Home or Self Care 09/10/2023 1:20 PM CDT Appointment Department of Laboratory Medicine in [place] [address] [place] [phone] Sera Casiano M.D., Ph.D. [address] [place] [phone] 09/10/2023 2:30 PM CDT Ancillary Procedure Department of Cardiovascular Diseases in [address] [phone] Clover Delaney M.D. [address] [place] [phone] Discharge Disposition: Home or Self Care 10/01/2023 9:30 AM CDT Comprehensive Visit Department of Cardiovascular Diseases in [address] [phone] Nikko Dey M.D. [address] [place] [phone] Discharge Disposition: Home or Self Care 10/05/2023 1:30 PM CDT Comprehensive Visit Division of Pulmonary Medicine in [place], [place] [address] [place] [address] Luis Carrion M.B.B.SJosé Luis [address] [place] [phone] 10/27/2023 2:25 PM CDT Appointment Department of Cardiovascular Diseases in [place], [place] [address] [place] [phone] Clover Delaney M.D. [address] [place] [phone] Discharge Disposition: Home or Self Care documented as of this encounter Visit Diagnoses Diagnosis Diabetes Mellitus Type 2 (HCC) documented in this encounter Additional Health Concerns Assessment Noted Time PHQ-9 Depression Total Score: 4 06/06/19 23 2:04 PM MANAGEMENT CONSULTANT documented as of this encounter Care Teams Rfid Technician Relationship Specialty Start Date End Date Clover Delaney M.D. [address] [place] [phone] PCP - General Internal Medicine 11/23/17 documented as of this encounter
--- OUTSIDE RECORDS SUMMARY | 2023-09-09 17:46 | XMS_ITS ---
Author Name Unknown Organization [facility] Address [address] [place] [address] Care Team Providers Care Reconciliation Manager Name Role Phone Clover Delaney M.D. Primary Care Provider +1 [phone] Status:Identified (Enrolling) Start date:04/01/2023 Continued Care and Services Coordination
--- OUTSIDE RECORDS SUMMARY | 2023-09-09 17:46 | XMS_ITS | Encounter Summary ---
Author Name Unknown Organization [facility] Address [address] [place] [address] Care Team Providers Care Mold Closer Name Role Phone Clover Delaney M.D. Primary Care Provider [phone] Encounter Details Date Type Department Care Team (Late st Contact Info) Description 06/05/2023 Orders Only Department of Community Internal Medicine in [place], [place] [address] [place] [address] [place] [phone] Clover Delaney M.D. [address] [place] [phone] Social History Tobacco Use Types [...] Answer Date Recorded PHQ-2 Score 2 05/28/2023 [facility] [place] of Occupat ional Health - Occupational Stress [...] Sex Assigned at Male 05/13/2021 10:11 AM LINE WORKER Gender Identity Male 11/02/2017 7:22 PM CDT Sexual Orientation Straight 11/02/2017 7: 22 PM CDT documented as of this encounter Plan of Treatment Upcoming Encounters Date Type Department Care Team (Latest Contact Info) Description 09/10/2023 10:45 AM CDT Clinical Communication Virtual Review in [place], [place] [address] [place] [phone] 09/10/2023 1:00 PM CDT Appointment Department of Radiology in [place] [address] [place] [phone] Sera Casiano M.D., Ph.D. [address] [place] [phone] Discharge Disposition: Home or Self Care 09/10/2023 1:20 PM CDT Appointment Department of Laboratory Medicine in [place] [address] [place] [phone] Sera Casiano M.D., Ph.D. [address] [place] [phone] 09/10/2023 2:30 PM CDT Ancillary Procedure Department of Cardiovascular Diseases in [address] [phone] Clover Delaney M.D. [address] [place] [phone] Discharge Disposition: Home or Self Care 10/01/2023 9:30 AM CDT Comprehensive Visit Department of Cardiovascular Diseases in [address] [phone] Nikko Dey M.D. [address] [place] [phone] Discharge Disposition: Home or Self Care 10/05/2023 1:30 PM CDT Comprehensive Visit Division of Pulmonary Medicine in [place], [place] [address] [place] [phone] Luis Carrion M.B.B.S. [address] [place] [phone] 10/27/2023 2:25 PM CDT Appointment Department of Cardiovascular Diseases in [place], [place] [address] [place] [phone] Clover Delaney M.D. [address] [place] [phone] Discharge Disposition: Home or Self Care documented as of this encounter Visit Diagnoses Not on filedocumented in this encounter Additional Health Concerns Assessment Noted Time PHQ-9 Depression Total Score: 4 06/06/19 23 2:04 PM LINE WORKER documented as of this encounter Care Teams Mold Closer Relationship Specialty Start Date End Date Clover Delaney M.D. [address] [place] [phone] PCP - General Internal Medicine 11/23/17 documented as of this encounter
[2023-09-09 18:41] LABS: Fecal Occult Blood* Negative (Negative)
[2023-09-09] MEDS: 0.9 % SODIUM CHLORIDE 250 ml IV (18:54)
[2023-09-09 20:32] LABS: Albumin* 3.4 g/dL (3.3-5.0)
[2023-09-09 20:34] LABS: Iron* 63 ug/dL (49-181)
[2023-09-09 20:35] LABS: Alanine Aminotransferase* 20 U/L (4-50); Alkaline Phosphatase* 98 U/L (40-150); Aspartate Amino Transferase* 25 U/L (12-35); Bilirubin Direct* 0.1 mg/dL (0.0-0.5); Bilirubin Total* 1.1 mg/dL (0.1-1.5); Lactate Dehydrogenase* 262 U/L (120-246); Total Protein* 6.1 g/dL (6.0-8.3)
--- NOTE | 2023-09-09 20:35 | PM.IMHP1 ---
Hospitalist- H&P: HPI History of Present Illness Date Seen: 09/09/23 Chief complaint: Low hemoglobin Narrative: Philip Patel is a 77 year old male with stage 5 kidney disease, diabetes mellitus, atrial fibrillation on Eliquis and aspirin and hypertension presents with several weeks of progressive weakness and new anemia. Patient reports over the last several weeks, possibly up to 2 months, he has been feeling progressively weak and tired. He also notes that his gait is more unsteady. He has not had chest pain lightheadedness or near syncope. He was seen in clinic today where he was found to have a hemoglobin of 6.7. This is significantly below his baseline between 8 and 9. He has stage 5 kidney disease and is getting Aranesp injections and taking iron pills. He has not noted any bloody stools or black stools. He ran out of iron a week ago and his stools are now brown. He had a normal colonoscopy in March or April. He is not aware of any other bleeding that we does note that he has had a lot of bruising related to recent falls. He has large bruises on his right leg, left anterior chest, right back. He was started on Eliquis 3-4 weeks ago for atrial fibrillation. He has stage 5 kidney disease and his Eliquis dose is 2.5 mg twice daily. He is also on chronic aspirin. He has had multiple adjustments to his medications over the last 2 months: Started Eliquis 3-4 weeks ago Started on clonidine about 2 months ago with an increased is 0.2 mg twice daily about 1 month ago for uncontrolled hypertension Increase of tomorrow torsemide to 30 mg daily then reduced to 20 mg daily Decrease of carvedilol to 12.5 mg b.i.d. due to bradycardia Started Mounjaro about 2 months ago with an increase in the dose. Along with this change he stopped his glipizide. Blood sugar control has been okay, commonly in the 150 did 200 range He is pending the initiation of dialysis under the care of Dr. Armenta from [facility]. He has an appointment with her in [place] next week. He is pending placement of a fistula. Review of Systems Narrative: Patient reports that aside from his feeling fatigue and malaise and some increased unsteadiness with walking he has been otherwise feeling okay. No fever, cold, cough, chest pain, shortness of breath, palpitations, nausea, vomiting, abdominal pain, diarrhea, melena, hematochezia, urinary problems, problems with edema. He has been taking some torsemide to address his chronic edema and appears to be fairly well managed. [facility] Medical History (Updated 09/09/23 @ 21:19 by Wilfred Goodman MD) Unstable gait ?R26.81 - Unsteadiness on feet (ICD-10) Blindness of left eye ?H54.40 - Blindness, one eye, unspecified eye (ICD-10) Efra's granulomatosis ?M31.30 - Efra's granulomatosis without renal involvement (ICD-10) Diabetes mellitus ?E11.9 - Type 2 diabetes mellitus without complications (ICD-10) Morbid obesity with BMI of 45.0-49.9, adult ?E66.01 - Morbid (severe) obesity due to excess calories (ICD-10) ?Z68.42 - Body mass index [BMI] 45.0-49.9, adult (ICD-10) Hypertension ?I10 - Essential (primary) hypertension (ICD-10) Stage 5 chronic kidney disease ?N18.5 - Chronic kidney disease, stage 5 (ICD-10) Chronic anticoagulation ?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 He is a former smoker. He rarely drinks alcohol. Code status is full. is healthcare power of transactional attorney. Smoking Status: Former smoker Do you use any of these nicotine containing products: None How often do you have a drink containing alcohol: monthly or less How often do you have six or more drinks on one occasion: Never AUDIT-C Alcohol total score: 1 Non-prescribed substance use: denies use service: No Meds Home Medications and Allergies Home Medications Medication Instructions Recorded Confirmed Type aspirin 81 mg tablet,delayed 81 mg PO QDAY 04/14/22 09/09/23 History release blood sugar diagnostic (OneTouch #10 ea 04/14/22 08/05/23 History Ultra Test strips) carvedilol 12.5 mg tablet 12.5 mg PO DAILY 04/14/22 09/09/23 History cholecalciferol (vitamin D3) 50 50 mcg PO QDAY 04/14/22 09/09/23 History mcg (2,000 unit) capsule insulin glargine 100 unit/mL (3 18 unit subcut QHS 04/14/22 09/09/23 History mL) subcutaneous pen (Lantus Solostar U-100 Insulin) mecobalamin (vitamin B12) 1,000 1,000 mcg PO QDAY 04/14/22 09/09/23 History mcg chewable tablet multivitamin 1 tab PO QAM 04/14/22 09/09/23 History pen needle, diabetic 31 gauge x #50 ea 04/14/22 08/05/23 History 1/4 (UltiCare Pen Needle) pen needle, diabetic 32 gauge x #50 ea 04/14/22 08/05/23 History 5/32 (BD Ultra-Fine Josefina Pen Needle) prednisolone acetate 1 % eye 2 drp ophthalmic (eye) DAILY 04/14/22 08/05/23 History drops,suspension prednisone 5 mg tablet 5 mg PO QDAY 04/14/22 09/09/23 History torsemide 10 mg tablet 20 mg PO QDAY 04/14/22 09/09/23 History vit C 250 mg-vit E 200 unit-zinc 1 tab PO DAILY 04/14/22 09/09/23 History 12.5 mg-copper 1 [id number] tablet (ICaps AREDS2 (copper citrate)) irbesartan 75 mg tablet (Avapro) 75 mg PO DAILY 09/10/22 09/09/23 History sevelamer HCl 800 mg tablet 800 mg PO TID 04/13/23 09/09/23 History sodium bicarbonate 650 mg tablet 650 mg PO BID 04/13/23 09/09/23 History tirzepatide 5 mg/0.5 mL 5 mg subcut QWEEK 08/05/23 09/09/23 History subcutaneous pen injector (Cali) atorvastatin 40 mg tablet 40 mg PO DAILY 08/16/23 09/09/23 History clonidine HCl 0.2 mg tablet 0.2 mg PO BID 08/16/23 09/09/23 History doxazosin 4 mg tablet 4 mg PO DAILY 08/16/23 09/09/23 History fluoxetine 10 mg capsule 10 mg PO DAILY 08/16/23 09/09/23 History Home Medication Comments: Also takes iron supplement but ran out 1 or 2 weeks ago Allergies Allergy/AdvReac Type Severity Reaction Status Date / Time epinephrine Allergy Intermediate Hypertensio Verified 08/16/23 13:14 n Penicillins Allergy Verified 08/16/23 13:14 Exam Narrative: Exam Narrative: He is somewhat pale-appearing, alert and in no distress. He gives his own history with good detail. Head is without trauma. Left eye is blind with fixed dilated pupil. Right eye is normal. Oropharynx with small airway. Neck is supple without mass or adenopathy. Respirations are clear to auscultation. Cardiovascular: S1, S2, very distant heart sounds. Abdomen is soft without tenderness or mass. He has moderate bruising or under his right scapula and over his left breast from recent falls. Minor bruising over his abdomen from Lantus injections. Right lower extremity with bruising around his ankle but no open wound. Is intact pedal pulses and diminished sensation. He moves all 4 extremities well without focal weakness. 2+ edema in his feet and ankles. Const: Vital Signs, click to edit/add: Vital Signs - 24 hr 09/09/23 15:33 09/09/23 18:57 09/09/23 19:19 Temperature 97.9 F 97.9 F 97.2 F L Pulse Rate 73 81 Pulse Rate [Pulse Oximeter] 75 Respiratory Rate 18 18 18 Blood Pressure 195/72 H 173/103 H Blood Pressure [Ri ght Upper Arm] 158/89 H Pulse Oximetry 96 96 96 Oxygen Delivery Me thod Room Air Documenting provider has reviewed patient's vital signs: yes Hospitalist - H&P: Result Labs Labs: Short CBC 09/09/23 Range/Units 16:42 WBC 6.86 (4.50-11.00) K/uL Hgb 6.9 L* (13.5-17.5) gm/dL Hct 21.2 L (37.0-53.0) % Plt Count 142 (140-440) K/uL [facility] 09/09/23 16:42 Sodium 136 Potassium 4.8 Chloride 103 Carbon Dioxide 28 BUN 78 H Creatinine 4.0 H Glucose 250 H Calcium 8.6 Assessment and Plan Assessment and plan (1) Anemia: Problem comment: Chronic anemia due to chronic renal failure and now worsening anemia due to unknown known cause. Anemia developed since starting Eliquis 3-4 weeks ago. Hemoglobin went from 8.9-6.7 since August 15. Check EGD for occult GI bleeding. Multiple bruises from falling on Eliquis could cause significant blood loss. Not obviously having hemolysis. In the emergency department his stool was medium brown and guaiac negative. Status: Acute (2) Weakness: Problem comment: Generalized, gradually worsening over the last few weeks. PT OT to evaluate Status: Acute (3) Falls: Problem comment: Recently has had falls due to weakness and poor balance. Multiple bruises. PT OT to evaluate Status: Acute (4) Stage 5 chronic kidney disease: Problem comment: Dr. Armenta, [facility], pending dialysis and fistula placement On sodium bicarbonate an sevelamer and torsemide for hyperkalemia Status: Acute (5) Diabetes mellitus: Problem comment: Some fluctuations in blood sugar with recent changes in medications, adding Mounjaro, stopping glipizide, increasing Lantus from 16-18 units at bedtime. Still reporting fair blood sugar control. Status: Acute (6) Chronic anticoagulation: Problem comment: On Eliquis 2.5 mg b.i.d. as well as aspirin 81 mg daily. Temporarily stop both due to concern about bleeding. Consider stopping aspirin indefinitely. No history of stroke or ACS/stent. Patient is high risk for vascular disease adverse events however. Discuss appropriate anticoagulation with telephone betting clerk next week Status: Acute (7) Unstable gait: Problem comment: Patient reports recent falls without serious injury which he attributes to recent weakness, poor balance and poor depth perception due to blindness in left eye. Status: Acute Plan 77-year-old male admitted to the hospital with acute on chronic anemia, acute on chronic weakness and recent falls. He has multiple severe chronic medical problems and multiple high risk medications many of which have been changed in the last couple months. At this time the plan is to transfuse 2 units of blood, monitor for bleeding, obtain EGD to evaluate for upper GI bleeding, look for other causes of anemia such as prominent bruising. Hold Eliquis and aspirin for now. Possibly discontinue aspirin indefinitely. Consider consult with Dr. Armenta, Nephrology, next week about antiplatelet and anti coagulation plan. Total Time Spent Total Time Spent: Total time spent is 100 minutes, 70 minutes in coordination of care discussing with patient and and other providers ongoing evaluation management of weakness, falls, anemia.
[2023-09-09 20:43] LABS: Percent Iron Saturation 28 % (20-50); Total Iron Binding Capacity 224 ug/dL (261-462)
[2023-09-09 20:48] LABS: Troponin I* 0.02 ng/mL (0.01-0.04)
[2023-09-09] MEDS: SODIUM BICARBONATE 650 MG TABLET PO (21:37)
[2023-09-09] MEDS: DOXAZOSIN 4 MG TABLET PO (21:38)
[2023-09-09] MEDS: cloNIDine HCL 0.1 MG TABLET 0.2 MG PO (21:38)
[2023-09-09] MEDS: INSULIN ASPART 100 UNIT/ML SUBCUT (22:26)
[2023-09-09] MEDS: PANTOPRAZOLE SODIUM 40 MG INJ IVP (22:27)
[2023-09-09] MEDS: SODIUM CHLORIDE 0.9 % (FLUSH) 10 ML SYRINGE 5 ML IVF (22:27)
[2023-09-10] VITALS (8 sets, daily range): BP systolic 139–236; BP diastolic 65–92; PULSE 55–70; RESP 16–20; TEMP 36.5–36.8; O2SAT 95–97; BMI 43.9
[2023-09-10] MEDS: FUROSEMIDE 10 MG/ML inj IVP (00:31)
[2023-09-10] MEDS: 0.9 % SODIUM CHLORIDE 1000 ml 1,000 ML 75 ML IV (00:37)
[2023-09-10 06:20] LABS: Basophils Absolute Auto 0.01 K/uL (0.00-0.30); Basophils Percent Auto 0.2 % (0.0-3.0); Eosinophils Absolute Auto 0.16 K/uL (0.00-0.50); Eosinophils Percent Auto 2.5 % (0.0-7.0); Hematocrit 24.5 % (37.0-53.0); Immature Granulocytes Abs Auto 0.04 K/uL (0.00-0.30); Immature Granulocytes Pct Auto 0.6 %; Immature Reticulocyte Fraction 11.1 % (2.3-13.4); Lymphocytes Percent Auto 10.8 % (20-44); Mean Corpuscular HGB Conc 33 gm/dL (32-36); Mean Corpuscular Hemoglobin 30 pg (26-34); Mean Corpuscular Volume 93 fL (80-100); Monocytes Percent Auto 8.6 % (0.0-11.0); Neutrophils Percent Auto 77.3 % (42.0-72.0); Platelet Count* 125 K/uL (140-440); RDW Coefficient of Variation % 16.4 % (11.5-15.5); Red Blood Count 2.65 m/uL (4.30-5.90); Reticulocyte Hemoglobin Equivi 32.8 pg (29.0-35.0); Reticulocyte Percent 3.1 % (0.5-2.0); Reticulocytes Absolute 0.08 # (0.03-0.08); White Blood Count* 6.36 K/uL (4.50-11.00)
[2023-09-10 06:26] LABS: Slide Review Reflex No
[2023-09-10 06:33] LABS: Chloride* 103 mmol/L (96-114)
[2023-09-10 06:34] LABS: Potassium* 3.9 mmol/L (3.6-5.1); Sodium* 138 mmol/L (135-149)
[2023-09-10 06:36] LABS: Anion Gap 9 mEq/L (7-15); Carbon Dioxide* 26 mmol/L (20-32); Est. Creatinine Clearance* 15.97; Estimated Glomerular Filt Rate 15 ml/min
[2023-09-10 06:37] LABS: Blood Urea Nitrogen* 69 mg/dL (7-30); Calcium* 8.4 mg/dL (8.4-10.6); Glucose* 149 mg/dL (60-115)
--- NOTE | 2023-09-10 06:44 | PC.NURSE ---
End of shift note [id number]: Pt has had two units of PRBC transfused since admission due to low Hgb of 6.7 and 6.9 noted in ED. He is alert & oriented x 4 and able to make needs known. Blood pressures trending high at start of shift with B/P of 202/89 though pt denying hypertensive symptoms when asked and stating, ?It goes higher because I?m in the hospital?. Pt NPO in preparation for upper endoscopy/EGD. He is noted to have orthostatic hypotension upon assessment though only stated he felt feeling of vertigo after going from lying to sitting position. Pt currently receiving 0.9% NS at 75 mL/hr per order. Blood glucose of 162 with 0200 blood glucose check though pt refused SS Novolog as he is NPO. Pt transferring with SBA using walker and gait belt. Pt has had no tarry stools or other new signs of bleeding noted this shift. He does have extensive bruising to RLE and near L axillary region which was also noted by evening RN. ?
--- NOTE | 2023-09-10 10:20 | P.ANES_ITS ---
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
--- NOTE | 2023-09-10 10:20 | W.ANESCHARGE ---
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
--- NOTE | 2023-09-10 11:21 | P.IMPN_ITS ---
Progress Note: A&P Assessment and plan (1) Anemia: Problem details: Chronic anemia due to chronic renal failure and now worsening anemia due to unknown cause. Baseline 8.0-8.9 since April 2023 Anemia developed since starting Eliquis 3-4 weeks ago. Hemoglobin went from 8.9-6.7 since August 15. Multiple bruises from falling on Eliquis could cause significant blood loss. Not obviously having hemolysis. In the emergency department his stool was medium brown and guaiac negative. EGD without evidence of bleed. Per General surgery, okay to resume general diet, start PPI Status: Acute (2) Weakness: Problem details: Generalized, gradually worsening over the last few weeks Reports feeling better this morning after transfusion and improvement in hemoglobin PT OT consulted. OT has no outpatient recommendations. Status: Acute (3) Falls: Problem details: Recently has had falls due to weakness and poor balance. Multiple bruises Increased risk while on Eliquis PT OT consulted Status: Acute (4) Stage 5 chronic kidney disease: Problem details: Dr. Armenta, [facility], pending dialysis and fistula placement On sodium bicarbonate an sevelamer and torsemide for hyperkalemia Creatinine 4.0, improved from previous 4.8 Status: Acute (5) Diabetes mellitus: Problem details: Some fluctuations in blood sugar with recent changes in medications, adding Mounjaro, stopping glipizide, increasing Lantus from 16-18 units at bedtime. Still reporting fair blood sugar control. Hold mounjaro. Home dose Lantus 18 units nightly. Scheduled 8 units Levemir during hospital course, glucose checks ACHS, ISS Status: Acute (6) Chronic anticoagulation: Problem details: On Eliquis 2.5 mg b.i.d. as well as aspirin 81 mg daily. Temporarily stop both due to concern about bleeding. Consider stopping aspirin indefinitely. No history of stroke or ACS/stent. Patient is high risk for vascular disease adverse events however. Discuss appropriate anticoagulation with lodge officer next week Status: Acute (7) Unstable gait: Problem details: Patient reports recent falls without serious injury which he attributes to re cent weakness, poor balance and poor depth perception due to blindness in left eye. Status: Acute (8) Thrombocytopenia: Problem details: Platelets 125 this morning, baseline 140-190, recheck in a.m. Status: Acute Plan EGD without evidence of acute bleed. Hemoglobin improved to 8 from 6.7 following transfusion. Will resume normal diet. Recheck hemoglobin in the morning. Consider discharge if remains stable, clinically improving, pending therapy recommendations. Consider restarting Eliquis prior to discharge. Outpatient follow-up with Nephrology next week. Time Spent With Patient Total time spent: Total time spent caring for the patient today was 45 minutes. This includes time spent for the visit reviewing the chart, time spent during the visit, time spent after the visit and documentation and planning in coordination of care. Subjective Date Seen: 09/10/23 Interval history: Patient is sitting up in a chair this morning. Reports feeling much better than on admission. Able to walk from his chair to the bathroom without significant fatigue and weakness that he was experiencing yesterday. Tells me he would not have been able to walk that far. Denies headache or dizziness. Denies chest pain or tightness. Denies feeling short of breath. Has been NPO for an EGD. No nausea. Hemoglobin improved to 8.0 from 6.7 following transfusion last night. His normal hemoglobin is 8-9. Mildly hypertensive however has not taken morning medications yet. Exam Narrative: Exam Narrative: PHYSICAL EXAM General: Pleasant, conversant, NAD HEENT: Normocephalic, atraumatic, sclera white, EOMI, oral mucosa moist Cardiovascular: RRR, S1S2. Pulmonary: CTA bilaterally without rhonchi, rales, expiratory wheezes. No dyspnea on room air Abdominal: Soft, nondistended, NTTP Neurological: Alert, answering questions appropriately, cranial nerves intact, no focal findings Extremities: No gross joint deformity or swelling. AROMI. Neurovascularly intact Skin: Pale, warm, dry. Const: Vital Signs, click to edit/add: Vital Signs - 24 hr 09/09/23 15:33 09/09/23 18:57 09/09/23 19:19 Temperature 97.9 F 97.9 F 97.2 F L Pulse Rate 73 81 Pulse Rate [Pulse Oximeter] 75 Pulse Rate [orthos tatic sitting Left Pulse Oximeter] Pulse Rate [orthos tatic standing Lef t Pulse Oximeter] Respiratory Rate 18 18 18 Blood Pressure 195/72 H 173/103 H Blood Pressure [Le ft Arm] Blood Pressure [Ri ght Upper Arm] 158/89 H Blood Pressure [or thostatic lying Le ft Arm] Blood Pressure [or thostatic sitting Left Arm] Blood Pressure [or thostatic standing Left Arm] Pulse Oximetry 96 96 96 Oxygen Delivery Me thod Room Air 09/09/23 21:01 09/09/23 21:07 09/09/23 21:14 Temperature 98.1 F 98.1 F Pulse Rate 74 74 Pulse Rate [Pulse Oximeter] 74 Pulse Rate [orthos tatic sitting Left Pulse Oximeter] Pulse Rate [orthos tatic standing Lef t Pulse Oximeter] Respiratory Rate 18 18 18 Blood Pressure 173/85 H 173/85 H Blood Pressure [Le ft Arm] 173/85 H Blood Pressure [Ri ght Upper Arm] Blood Pressure [or thostatic lying Le ft Arm] Blood Pressure [or thostatic sitting Left Arm] Blood Pressure [or thostatic standing Left Arm] Pulse Oximetry 98 99 98 Oxygen Delivery Me thod Room Air 09/09/23 21:14 09/09/23 21:22 09/09/23 22:10 Temperature 98.2 F 98.2 F Pulse Rate 66 71 Pulse Rate [Pulse Oximeter] Pulse Rate [orthos tatic sitting Left Pulse Oximeter] Pulse Rate [orthos tatic standing Lef t Pulse Oximeter] Respiratory Rate 18 18 18 Blood Pressure 168/90 H 172/88 H Blood Pressure [Le ft Arm] Blood Pressure [Ri ght Upper Arm] Blood Pressure [or thostatic lying Le ft Arm] Blood Pressure [or thostatic sitting Left Arm] Blood Pressure [or thostatic standing Left Arm] Pulse Oximetry 98 97 96 Oxygen Delivery Me thod Room Air 09/09/23 23:00 09/09/23 23:27 09/10/23 00:20 Temperature 97.8 F Pulse Rate 59 L 70 Pulse Rate [Pulse Oximeter] Pulse Rate [orthos tatic sitting Left Pulse Oximeter] Pulse Rate [orthos tatic standing Lef t Pulse Oximeter] Respiratory Rate 16 16 Blood Pressure 202/89 H Blood Pressure [Le ft Arm] Blood Pressure [Ri ght Upper Arm] Blood Pressure [or thostatic lying Le ft Arm] Blood Pressure [or thostatic sitting Left Arm] Blood Pressure [or thostatic standing Left Arm] Pulse Oximetry 97 Oxygen Delivery Me thod 09/10/23 00:20 09/10/23 00:50 09/10/23 02:45 Temperature 97.8 F 97.8 F Pulse Rate 63 Pulse Rate [Pulse Oximeter] 70 Pulse Rate [orthos tatic sitting Left Pulse Oximeter] 60 Pulse Rate [orthos tatic standing Lef t Pulse Oximeter] 55 L Respiratory Rate 16 16 Blood Pressure 175/88 H Blood Pressure [Le ft Arm] 202/89 H Blood Pressure [Ri ght Upper Arm] Blood Pressure [or thostatic lying Le ft Arm] 236/92 H Blood Pressure [or thostatic sitting Left Arm] 221/83 H Blood Pressure [or thostatic standing Left Arm] 155/65 H Pulse Oximetry 97 97 Oxygen Delivery Me thod Room Air 09/10/23 03:00 09/10/23 08:16 09/10/23 10:12 Temperature 97.7 F Pulse Rate 70 Pulse Rate [Pulse Oximeter] 58 L 57 L Pulse Rate [orthos tatic sitting Left Pulse Oximeter] Pulse Rate [orthos tatic standing Lef t Pulse Oximeter] Respiratory Rate 16 20 Blood Pressure Blood Pressure [Le ft Arm] 155/65 H 220/87 H Blood Pressure [Ri ght Upper Arm] Blood Pressure [or thostatic lying Le ft Arm] Blood Pressure [or thostatic sitting Left Arm] Blood Pressure [or thostatic standing Left Arm] Pulse Oximetry 96 95 Oxygen Delivery Me thod Room Air Room Air Labs Labs: Laboratory Results - last 24 hr 09/09/23 09/09/23 09/09/23 16:42 18:22 20:16 WBC 6.86 RBC 2.20 L Hgb 6.9 L* Hct 21.2 L MCV 96 MCH 31 MCHC 33 RDW Coeff of Rita 15.0 Plt Count 142 Neut % (Auto) 83.5 H Lymph % (Auto) 6.9 L [place] % (Auto) 7.1 Eos % (Auto) 1.3 Baso % (Auto) 0.3 Neut # (Auto) 5.70 Lymph # (Auto) 0.50 L [place] # (Auto) 0.50 Eos # (Auto) 0.09 Baso # (Auto) 0.02 Abs Immat Gran (auto) 0.06 Imm/Tot Granulo (auto) 0.9 Absolute Retic Percent Retic Immature Retic Fraction Retic Hgb Equivalent Sodium 136 Potassium 4.8 Chloride 103 Carbon Dioxide 28 Anion Gap 5 L BUN 78 H Creatinine 4.0 H Estimated Creat Clear 15.97 Estimated GFR 15 Glucose 250 H Lactate 1.5 Calcium 8.6 Iron 63 TIBC 224 L % Saturation 28 Total Bilirubin 1.1 Direct Bilirubin 0.1 AST 25 ALT 20 Alkaline Phosphatase 98 Lactate Dehydrogenase 262 H Troponin I 0.02 Total Protein 6.1 Albumin 3.4 Stool Occult Blood Negative Lab Acknowledgement Test Added Blood Type B Negative Antibody Screen NEGATIVE Crossmatch ([facility]) See Detail 09/10/23 06:05 WBC 6.36 RBC 2.65 L Hgb 8.0 L Hct 24.5 L MCV 93 MCH 30 MCHC 33 RDW Coeff of Rita 16.4 H Plt Count 125 L Neut % (Auto) 77.3 H Lymph % (Auto) 10.8 L [place] % (Auto) 8.6 Eos % (Auto) 2.5 Baso % (Auto) 0.2 Neut # (Auto) 4.90 Lymph # (Auto) 0.70 L [place] # (Auto) 0.50 Eos # (Auto) 0.16 Baso # (Auto) 0.01 Abs Immat Gran (auto) 0.04 Imm/Tot Granulo (auto) 0.6 Absolute Retic 0.08 Percent Retic 3.1 H Immature Retic Fraction 11.1 Retic Hgb Equivalent 32.8 Sodium 138 Potassium 3.9 Chloride 103 Carbon Dioxide 26 Anion Gap 9 BUN 69 H Creatinine 4.0 H Estimated Creat Clear 15.97 Estimated GFR 15 Glucose 149 H Lactate Calcium 8.4 Iron TIBC % Saturation Total Bilirubin Direct Bilirubin AST ALT Alkaline Phosphatase Lactate Dehydrogenase Troponin I Total Protein Albumin Stool Occult Blood Lab Acknowledgement Blood Type Antibody Screen Crossmatch ([facility])
[2023-09-10] MEDS: FLUOXETINE HCL 10 MG CAPSULE PO (11:30)
[2023-09-10] MEDS: IRBESARTAN 150 MG TABLET 75 MG PO (11:30)
[2023-09-10] MEDS: SODIUM BICARBONATE 650 MG TABLET PO (11:31)
[2023-09-10] MEDS: cloNIDine HCL 0.1 MG TABLET 0.2 MG PO (11:31)
[2023-09-10] MEDS: predniSONE 5 MG TABLET PO (11:31)
[2023-09-10] MEDS: CYANOCOBALAMIN (VITAMIN B-12) 500 MCG TABLET 1000 MCG PO (11:31)
[2023-09-10] MEDS: ATORVASTATIN CALCIUM 40 MG TABLET PO (11:32)
[2023-09-10] MEDS: carvediloL 6.25 MG TABLET 12.5 MG PO (11:32)
[2023-09-10] MEDS: MULTIVITAMIN/MINERALS 1 TABLET 1 TAB PO (11:32)
[2023-09-10] MEDS: prednisoLONE acetate 1 % DROPS 2 DROP EYE-BOTH (11:33)
[2023-09-10] MEDS: TORSEMIDE 20 MG TABLET PO (11:34)
--- NOTE | 2023-09-10 12:03 | W.ANESCHARGE ---
Anesthesia Charges Start Date/Time Anesthesia Start Date: 09/10/23 Anesthesia Start Time: 10:01 Stop Date/Time Anesthesia Stop Date: 09/10/23 Anesthesia Stop Time: 10:17 Summary Emergency: MDA Extremes of Age - Over 70 or under 1: MDA
[2023-09-10 17:26] LABS: Hemoglobin* 7.8 gm/dL (13.5-17.5)
--- NOTE | 2023-09-10 17:30 | PM.DS1 ---
DS: Providers Provider Date Seen: 09/10/23 Date of admission: 09/10/23 08:56 Primary care physician: Clover Boothe MD Admitting Clinician: Wilfred Goodman MD Attending Physician on discharge: Wilfred Goodman MD Date of Discharge: 09/10/23 DS: Diagnosis Discharge Diagnosis (1) Stage 5 chronic kidney disease: Status: Acute Problem details: Dr. Armenta, [facility], pending dialysis and fistula placement On sodium bicarbonate an sevelamer and torsemide for hyperkalemia Creatinine 4.0, improved from previous 4.8 (2) Falls: Status: Acute Problem details: Recently has had falls due to weakness and poor balance. Multiple bruises Increased risk while on Eliquis PT OT consulted (3) Anemia: Status: Acute Problem details: Chronic anemia due to chronic renal failure and now worsening anemia due to unknown cause. Baseline 8.0-8.9 since April 2023 Anemia developed since starting Eliquis 3-4 weeks ago. Hemoglobin went from 8.9-6.7 since August 15. Multiple bruises from falling on Eliquis could cause significant blood loss. Not obviously having hemolysis. In the emergency department his stool was medium brown and guaiac negative. EGD without evidence of bleed. Per General surgery, okay to resume general diet, (4) Diabetes mellitus: Status: Acute Problem details: Some fluctuations in blood sugar with recent changes in medications, adding Mounjaro, stopping glipizide, increasing Lantus from 16-18 units at bedtime. Still reporting fair blood sugar control. Hold mounjaro. Home dose Lantus 18 units nightly. Scheduled 8 units Levemir during hospital course, glucose checks ACHS, ISS (5) Chronic anticoagulation: Status: Acute Problem details: On Eliquis 2.5 mg b.i.d. as well as aspirin 81 mg daily. Temporarily stop both due to concern about bleeding. Consider stopping aspirin indefinitely. No history of stroke or ACS/stent. Patient is high risk for vascular disease adverse events however. 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 DS: Summary Hospital Course Hospital Course: 77-year-old male admitted the hospital with a few week history of progressive weakness, fatigue, malaise and anemia. Evaluation showed no evidence of GI bleeding. He had multiple large bruises from recent falls suggestive of possible blood loss into the soft tissue. He was transfused 2 units of blood. He had an EGD which was normal. Stool Hemoccult testing was negative. His hemoglobin was 6.7 on admission and 7.8 on discharge. On the day of discharge she was feeling much stronger and walking in the hallway with physical therapy. He in his are anxious to go home for outpatient clinic visit tomorrow. I reviewed with the patient the uncertainty of not knowing for sure the cause of his anemia and if he gets recurrent symptoms he will need re-evaluation. I recommend he stop aspirin until he sees his engine buildup mechanic next week. He is to continue his Eliquis at the renal dose of 2.5 mg b.i.d.. He is to resume taking iron therapy as well. Status at Discharge Functional status at discharge: uses cane/walker Overall status at discharge: patient is progressing back to baseline Time Spent with Patient Time attestation: Total time spent providing and/or coordinating discharge services: Exam Const: Vital Signs, click to edit/add: Vital Signs - 24 hr 09/09/23 18:57 09/09/23 19:19 09/09/23 21:01 Temperature 97.9 F 97.2 F L Pulse Rate 73 81 74 Pulse Rate [Pulse Oximeter] Pulse Rate [orthos tatic sitting Left Pulse Oximeter] Pulse Rate [orthos tatic standing Lef t Pulse Oximeter] Respiratory Rate 18 18 18 Blood Pressure 195/72 H 173/103 H 173/85 H Blood Pressure [Le ft Arm] Blood Pressure [or thostatic lying Le ft Arm] Blood Pressure [or thostatic sitting Left Arm] Blood Pressure [or thostatic standing Left Arm] Pulse Oximetry 96 96 98 Oxygen Delivery Me thod 09/09/23 21:07 09/09/23 21:14 09/09/23 21:14 Temperature 98.1 F 98.1 F Pulse Rate 74 Pulse Rate [Pulse Oximeter] 74 Pulse Rate [orthos tatic sitting Left Pulse Oximeter] Pulse Rate [orthos tatic standing Lef t Pulse Oximeter] Respiratory Rate 18 18 18 Blood Pressure 173/85 H Blood Pressure [Le ft Arm] 173/85 H Blood Pressure [or thostatic lying Le ft Arm] Blood Pressure [or thostatic sitting Left Arm] Blood Pressure [or thostatic standing Left Arm] Pulse Oximetry 99 98 98 Oxygen Delivery Me thod Room Air Room Air 09/09/23 21:22 09/09/23 22:10 09/09/23 23:00 Temperature 98.2 F 98.2 F Pulse Rate 66 71 Pulse Rate [Pulse Oximeter] Pulse Rate [orthos tatic sitting Left Pulse Oximeter] Pulse Rate [orthos tatic standing Lef t Pulse Oximeter] Respiratory Rate 18 18 16 Blood Pressure 168/90 H 172/88 H Blood Pressure [Le ft Arm] Blood Pressure [or thostatic lying Le ft Arm] Blood Pressure [or thostatic sitting Left Arm] Blood Pressure [or thostatic standing Left Arm] Pulse Oximetry 97 96 Oxygen Delivery Me thod 09/09/23 23:27 09/10/23 00:20 09/10/23 00:20 Temperature 97.8 F 97.8 F Pulse Rate 59 L 70 Pulse Rate [Pulse Oximeter] 70 Pulse Rate [orthos tatic sitting Left Pulse Oximeter] Pulse Rate [orthos tatic standing Lef t Pulse Oximeter] Respiratory Rate 16 16 Blood Pressure 202/89 H Blood Pressure [Le ft Arm] 202/89 H Blood Pressure [or thostatic lying Le ft Arm] Blood Pressure [or thostatic sitting Left Arm] Blood Pressure [or thostatic standing Left Arm] Pulse Oximetry 97 97 Oxygen Delivery Me thod Room Air 09/10/23 00:50 09/10/23 02:45 09/10/23 03:00 Temperature 97.8 F 97.7 F Pulse Rate 63 Pulse Rate [Pulse Oximeter] 58 L Pulse Rate [orthos tatic sitting Left Pulse Oximeter] 60 Pulse Rate [orthos tatic standing Lef t Pulse Oximeter] 55 L Respiratory Rate 16 16 Blood Pressure 175/88 H Blood Pressure [Le ft Arm] 155/65 H Blood Pressure [or thostatic lying Le ft Arm] 236/92 H Blood Pressure [or thostatic sitting Left Arm] 221/83 H Blood Pressure [or thostatic standing Left Arm] 155/65 H Pulse Oximetry 97 96 Oxygen Delivery Me thod Room Air 09/10/23 08:16 09/10/23 10:12 09/10/23 14:05 Temperature 98.3 F Pulse Rate 70 Pulse Rate [Pulse Oximeter] 57 L 56 L Pulse Rate [orthos tatic sitting Left Pulse Oximeter] Pulse Rate [orthos tatic standing Lef t Pulse Oximeter] Respiratory Rate 20 20 Blood Pressure Blood Pressure [Le ft Arm] 220/87 H 139/70 Blood Pressure [or thostatic lying Le ft Arm] Blood Pressure [or thostatic sitting Left Arm] Blood Pressure [or thostatic standing Left Arm] Pulse Oximetry 95 97 Oxygen Delivery Me thod Room Air Room Air 09/10/23 15:59 Temperature Pulse Rate 55 L Pulse Rate [Pulse Oximeter] Pulse Rate [orthos tatic sitting Left Pulse Oximeter] Pulse Rate [orthos tatic standing Lef t Pulse Oximeter] Respiratory Rate Blood Pressure Blood Pressure [Le ft Arm] Blood Pressure [or thostatic lying Le ft Arm] Blood Pressure [or thostatic sitting Left Arm] Blood Pressure [or thostatic standing Left Arm] Pulse Oximetry Oxygen Delivery Me thod DS: Data Data Completed and Pending Labs on day of discharge: Labs from last 24 hours 09/10/23 09/10/23 09/09/23 16:52 06:05 20:16 WBC 6.36 RBC 2.65 L Hgb 7.8 L* 8.0 L Hct 24.5 L MCV 93 MCH 30 MCHC 33 RDW Coeff of Rita 16.4 H Plt Count 125 L Neut % (Auto) 77.3 H Lymph % (Auto) 10.8 L [place] % (Auto) 8.6 Eos % (Auto) 2.5 Baso % (Auto) 0.2 Neut # (Auto) 4.90 Lymph # (Auto) 0.70 L [place] # (Auto) 0.50 Eos # (Auto) 0.16 Baso # (Auto) 0.01 Abs Immat Gran (auto) 0.04 Imm/Tot Granulo (auto) 0.6 Absolute Retic 0.08 Percent Retic 3.1 H Immature Retic Fraction 11.1 Retic Hgb Equivalent 32.8 Sodium 138 Potassium 3.9 Chloride 103 Carbon Dioxide 26 Anion Gap 9 BUN 69 H Creatinine 4.0 H Estimated Creat Clear 15.97 Estimated GFR 15 Glucose 149 H Haptoglobin Pending Calcium 8.4 Iron TIBC % Saturation Total Bilirubin Direct Bilirubin AST ALT Alkaline Phosphatase Lactate Dehydrogenase Troponin I Total Protein Albumin Stool Occult Blood Lab Acknowledgement Test Added Blood Type Antibody Screen Crossmatch ([facility]) 09/09/23 09/09/23 18:22 16:42 WBC RBC Hgb Hct MCV MCH MCHC RDW Coeff of Rita Plt Count Neut % (Auto) Lymph % (Auto) [place] % (Auto) Eos % (Auto) Baso % (Auto) Neut # (Auto) Lymph # (Auto) [place] # (Auto) Eos # (Auto) Baso # (Auto) Abs Immat Gran (auto) Imm/Tot Granulo (auto) Absolute Retic Percent Retic Immature Retic Fraction Retic Hgb Equivalent Sodium Potassium Chloride Carbon Dioxide Anion Gap BUN Creatinine Estimated Creat Clear Estimated GFR Glucose Haptoglobin Calcium Iron 63 TIBC 224 L % Saturation 28 Total Bilirubin 1.1 Direct Bilirubin 0.1 AST 25 ALT 20 Alkaline Phosphatase 98 Lactate Dehydrogenase 262 H Troponin I 0.02 Total Protein 6.1 Albumin 3.4 Stool Occult Blood Negative Lab Acknowledgement Blood Type B Negative Antibody Screen NEGATIVE Crossmatch ([facility]) See Detail Discharge Plan Discharge Disposition: Home, Self-Care Date of Admission: 09/10/23 08:56 Attending Provider on Discharge: Wilfred Goodman Primary Care Provider: Clover Boothe Condition: Improved Anticipated Discharge Date/Time: 09/10/23 18:00 Discharge Medications: New ferrous sulfate 325 mg (65 mg iron) tablet 325 mg PO DAILY Qty: 30 0RF Continued torsemide 10 mg tablet 20 mg PO QDAY Patient Comments: TAKE ONE TABLET BY MOUTH ONE TIME DAILY prednisolone acetate 1 % drops,suspension 2 drp ophthalmic (eye) DAILY Patient Comments: Follow prednisolone taper in left eye per Dr. Paez's handout insulin glargine [Lantus Solostar U-100 Insulin] 100 unit/mL (3 mL) insulin pen 18 unit subcut QHS prednisone 5 mg tablet 5 mg PO QDAY Patient Comments: TAKE ONE TABLET BY MOUTH ONE TIME DAILY carvedilol 12.5 mg tablet 12.5 mg PO DAILY Patient Comments: TAKE ONE TABLET BY MOUTH TWICE A DAY WITH MEALS cholecalciferol (vitamin D3) 50 mcg (2,000 unit) capsule 50 mcg PO QDAY mecobalamin (vitamin B12) 1,000 mcg tablet,chewable 1,000 mcg PO QDAY multivitamin Tablet 1 tab PO QAM ICaps AREDS2 (copper citrate) 250 mg-200 unit -12.5 mg-1 mg tablet 1 tab PO DAILY sodium bicarbonate 650 mg tablet 650 mg PO BID sevelamer HCl 800 mg tablet 800 mg PO TID Rx Instructions: must administer with a meal/food Mounjaro 5 mg/0.5 mL pen injector 5 mg subcut QWEEK irbesartan [Avapro] 75 mg tablet 75 mg PO DAILY atorvastatin 40 mg tablet 40 mg PO DAILY clonidine HCl 0.2 mg tablet 0.2 mg PO BID fluoxetine 10 mg capsule 10 mg PO DAILY doxazosin 4 mg tablet 4 mg PO DAILY Eliquis 2.5 mg tablet 2.5 mg PO BID Qty: 60 2RF Discontinued aspirin 81 mg tablet,delayed release (DR/EC) 81 mg PO QDAY No Action (DME) pen needle, diabetic [BD Ultra-Fine Josefina Pen Needle] 32 gauge x 5/32 needle See Rx Instructions .ROUTE .MEDSUPPLY Qty: 50 Patient Comments: USE TO INJECT ONCE DAILY Rx Instructions: As directed (DME) OneTouch Ultra Test Strip See Rx Instructions .ROUTE .MEDSUPPLY Qty: 10 Patient Comments: Use to test once daily. Rx Instructions: As directed (DME) pen needle, diabetic [UltiCare Pen Needle] 31 gauge x 1/4 needle See Rx Instructions .ROUTE .MEDSUPPLY Qty: 50 Rx Instructions: As directed Discharge Orders: Discharge Order (Routine); Ordered 09/10/23 Ordered By: Wilfred Goodman Patient Education: Iron Supplements (By mouth), Anemia (DC) Activity Level: Activity as Tolerated Discharge Diet: Heart Healthy (2 gm sodium, low fat) Follow Up Appointments: Clover Boothe MD [Primary Care Provider] - Sera Casiano MD [Staff Physician] - (Follow-up next week at previously scheduled appointment. Check hemoglobin next week.) Forms: Predect Info Instructions
--- NOTE | 2023-09-10 18:58 | PC.NURSE ---
Discharge - Pt alert, oriented, cooperative, and pleasant. Up with standby assistance, reports feeling increased strength. Observed to ambulate in halls with PT. Continent of bladder during shift. Tolerating RA, regular diet, fluids. Pt Denied pain, SOB, nausea, dizziness. IV removed with catheter intact. D/c education provided to pt with verbalized understanding. Pt d/c'd to home with spouse via wheelchair at approximately 1842.
[2023-09-12 02:46] LABS: Haptoglobin 163 mg/dL (30-200)
== END 2023-09-10 18:42 | disposition home or self-care (01) | DRG 813 ==
LOC: ED 17:38 → MEDSURG 19:47
PROVIDERS: Admitting Provider Family Medicine; Emergency Provider Emergency Medicine; PCP Pediatrics; Visit Provider Family Medicine
DX: D68.318 Other hemorrhagic disorder due to intrinsic circulating anticoagulants, antibodies, or inhibitors (principal); I12.0 Hypertensive chronic kidney disease with stage 5 chronic kidney disease or end stage renal disease; N18.5 Chronic kidney disease, stage 5; M31.31 Wegener's granulomatosis with renal involvement; Z68.42 Body mass index [BMI] 45.0-49.9, adult; D64.9 Anemia, unspecified; T45.515A Adverse effect of anticoagulants, initial encounter; E11.22 Type 2 diabetes mellitus with diabetic chronic kidney disease; D63.1 Anemia in chronic kidney disease; S80.11XA Contusion of right lower leg, initial encounter; S70.02XA Contusion of left hip, initial encounter; S30.0XXA Contusion of lower back and pelvis, initial encounter; S20.213A Contusion of bilateral front wall of thorax, initial encounter; E87.5 Hyperkalemia; Z79.85 Long-term (current) use of injectable non-insulin antidiabetic drugs; Z79.84 Long term (current) use of oral hypoglycemic drugs; R53.1 Weakness; Z91.81 History of falling; Z79.01 Long term (current) use of anticoagulants; R26.81 Unsteadiness on feet; E66.01 Morbid (severe) obesity due to excess calories; I48.91 Unspecified atrial fibrillation; Z86.010 Personal history of colon polyps; Z87.891 Personal history of nicotine dependence
CPT/HCPCS: 00731; 36415; 36430; 43235; 80048; 80076; 82270; 82962; 83010; 83540; 83550; 83605; 83615; 84484; 85018; 85025; 85045; 86850; 86900; 86901; 86922; 93005; 96372; 97116; 97161; 97165; 99100; 99140; 99284; 99285; G0378; A9153; A9270; C9113; J0881; J1940; J2704; J3490; J7030; J7050; J7512; P9016

== ENCOUNTER 2023-09-16 15:59 | Outpatient (CLI) | payer MEDICARE, SELFPAY ==
--- OUTSIDE RECORDS SUMMARY | 2023-10-06 10:24 | XMS_ITS | Clinical Summary ---
Author Organization [facility] Address [address] [place] [address] Care Team Providers Care Acid Tank Cleaner Name Role Phone Clover Macias M.D. Primary Care Provider [phone] Source Comments Patient records contain information from all sites at [facility]. For routine questions regarding patient records, call [phone] during business hours, M-F 8:00 AM - 5:00 PM Central Time. Record requests for emergency care only can be directed to [phone] at any time.[facility] Allergies Active Allergy Reactions Criticality Noted Date Comments Amlodipine Edema High 07/10/2023 Epinephrine Palpitations High 11/11/2012 Tachycardia Penicillins Itching,Rash Medium 11/11/2012 Medications Medication Sig Dispensed Refills Start Date End Date Status miscellaneous medical supply [facility] [...] 0 Refill(s) 7 Active miscellaneous medical supply [facility] Head Gear for CPAP Machine See Instructions, fax to patient at [phone], 1 each 4 Active MULTIVITAMIN ORAL Daily Multiple Vitamins See Instructions, Take 1 tablet by mouth daily. 4 Active ONETOUCH DELICA LANCETS 33 gauge misc 3 9 Active loperamide (IMODIUM A-D) 2 mg tablet Take 2 mg by mouth as needed. Active cyanocobalamin (VITAMIN B12) 1,000 mcg tablet [...] daily. Do not crush or chew. Active prednisoLONE acetate (PRED FORTE) 1 % [...] select brand per patient insurance/prefer ence. Active predniSONE (DELTASONE) 5 mg tablet take one tablet by mouth one time daily 90 tablet 4 Active aspirin 81 mg chewable tablet Chew 1 tablet (81 mg total) daily. 90 tablet 3 0 024 Discontinued(Th erapy completed) predniSONE (DELTASONE) 5 mg tablet TAKE ONE TABLET BY MOUTH ONE TIME DAILY 90 tablet 3 3 024 Discontinued prednisoLONE acetate (PRED FORTE) 1 % ophthalmic suspension place 1 drop into the left eye once daily. 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 Sewell (oncology, [place]), follow up Dr. Sewell 6-12 months with [...] of 03/2020 and determined to be benign ([facility] records). 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 Tolerates 1500mg metformin per day. 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 Morbid Obesity Body Mass Index 45.0-49.9 Adult (HCC) (Primary Dx); Atrial Fibrillation Unspecified (HCC); Hypertensive Heart And Chronic Kidney Disease Without Heart Failure And With Stage 5 Chronic Kidney Disease (HCC); Atrial Fibrillation Paroxysmal (HCC) Discharge Disposition: Home or Self Care 09/23/2023 Refill Department of [facility], in [address] [place] [address] Jocelyne Navarro M.D. Med Refill 09/16/2023 3:00 PM CDT External Outreach Division of Nephrology and Hypertension in [place], [place] [address] [place] [phone] Sera Casiano M.D., Ph.D. Hypertensive Heart And Chronic Kidney Disease Without Heart Failure And With Stage 5 Chronic Kidney Disease (HCC) (Primary Dx); Anemia Of Chronic Renal Disease 09/11/2023 10:11 AM CDT - 09/11/2023 11:59 PM CDT Hospital Encounter Department of Cardiovascular Diseases in [address] [phone] Clover Macias M.D. Atrial Fibrillation Unspecified (HCC); Hypertensive Chronic Kidney Disease With Stage 5 Chronic Kidney Disease Or End Stage Renal Disease, Chronic Kidney Disease Stage 5 (HCC) Discharge Disposition: Home or Self Care 09/11/2023 Orders Only Department of Community Internal Medicine in [place] [address] [place] [address] Clover Macias M.D. Failure Renal End Stage (HCC) (Primary Dx) 09/11/2023 Orders Only Division of Nephrology and Hypertension in [address] [address] Sera Casiano M.D., Ph.D. 09/09/2023 Clinical Communication Division of Nephrology and Hypertension in [place], [place] [address] [place] [address] Sera Casiano M.D., Ph.D. 09/08/2023 2:00 PM CDT Virtual Visit Department of Family Medicine, [facility], in [address] [address] Clover Macias M.D. 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 Med Refill 09/01/2023 Clinical Communication Department of Community Internal Medicine in [place] [address] [place] [address] Clover Macias M.D. 08/28/2023 3:30 PM CDT Office Visit Department of Community Internal Medicine in [address] [place] [address] Clover Macias M.D. Follow Up Exam (Primary [...] Refill Department of Community Internal Medicine in [place] [address] [address] Clover Macias M.D. Med Refill 08/27/2023 Refill Division of Nephrology and Hypertension in [place], [place] [address] [place] [address] Mónica Portillo APRN, C.N.P., M.S. Med Refill 08/25/2023 Clinical Communication Division of Nephrology and Hypertension in [place], [place] [address] [place] [address] Sera Casiano M.D., Ph.D. infusion orders 08/25/2023 Refill Department of Ophthalmology in [place], [place] [address] [place] [address] Jon Juarez M.D. Med Refill 08/22/2023 Nurse Triage Department of Community Internal Medicine in [address] [place] [address] Savanah Gibson M.S.N., R.N. Hyperglycemia 08/21/2023 Orders Only Division of Endocrinology in [place], [place] [address] [place] [address] Cammy Silva M.D. Diabetes Mellitus Type 2 With Diabetic Neuropathy (HCC) (Primary Dx) 08/21/2023 Refill Department of Community Internal Medicine [place] [address] [place] [address] Clover Macias M.D. Med Refill 08/20/2023 3:08 PM CDT - 08/20/2023 11:59 PM CDT Hospital Encounter Department of Radiology in [place] [address] [place] [address] Clover Macias M.D. Atrial Fibrillation Unspecified (HCC); Hypertensive Chronic Kidney Disease With Stage 5 Chronic Kidney Disease Or End Stage Renal Disease, Chronic Kidney Disease Stage 5 (HCC) Discharge Disposition: Home or Self Care 08/20/2023 3:07 PM CDT Hospital Encounter Department of Radiology in [place] [address] [place] [address] Clover Macias M.D. Atrial Fibrillation Unspecified (HCC); Hypertensive Chronic Kidney Disease With Stage 5 Chronic Kidney Disease Or End Stage Renal Disease, Chronic Kidney Disease Stage 5 (HCC) Discharge Disposition: Home or Self Care 08/20/2023 3:00 PM CDT - 08/20/2023 3:06 PM CDT Hospital Encounter Department of Laboratory Medicine in [place] [address] [place] [address] Clover Macias M.D. 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 08/19/2023 Orders Only Department of Community Internal Medicine in [place] [address] [place] [address] Clover Macias M.D. Atrial Fibrillation Unspecified (HCC) (Primary Dx); Hypertensive Chronic Kidney Disease With Stage 5 Chronic Kidney Disease Or End Stage Renal Disease, Chronic Kidney Disease Stage 5 (HCC) 08/17/2023 Refill Department of Community Internal Medicine in [place] [address] [place] [address] Clover Macias M.D. Med Refill 08/16/2023 Nurse Triage Department of Community Internal Medicine in [place] [address] [place] [address] Philomena Raya R.N. Bradycardia; Weakness - Generalized 08/10/2023 Clinical Communication Division of Nephrology and Hypertension in [place], [place] [address] [place] [address] Kanwal Roberts R.N. 08/05/2023 4:00 PM CDT External Outreach Division of Nephrology and Hypertension in [place], [place] [address] [place] [address] Sera Casiano M.D., Ph.D. Chronic Kidney Disease Stage 5 Glomerular Filtration Rate Less Than 15 (HCC) (Primary Dx); Preoperative Exam; Hypertensive Chronic Kidney Disease With Stage 5 Chronic Kidney Disease Or End Stage Renal Disease, Chronic Kidney Disease Stage 5 (HCC) 07/29/2023 2:40 PM CDT - 07/29/2023 11:59 PM CDT Hospital Encounter Division of Nephrology and Hypertension, [facility] in [place], [place] [address] [place] [address] Sera Casiano M.D., Ph.D. Sandeep uKo M.D., Ph.D. Chronic Kidney Disease Stage 5 Glomerular Filtration Rate Less Than 15 (HCC) Discharge Disposition: Home or Self Care 07/29/2023 12:13 PM CDT - 07/29/2023 2:39 PM CDT Hospital Encounter Department of Radiology, [place], [place] [address] [place] [address] Sera Casiano M.D., Ph.D. Chronic Kidney Disease Stage 5 Glomerular Filtration Rate Less Than 15 (HCC) Discharge Disposition: Home or Self Care 07/29/2023 10:52 AM CDT - 07/29/2023 12:12 PM CDT Hospital Encounter Department of Radiology, [facility] in [place], [place] [address] [place] [address] Sera Casiano M.D., Ph.D. 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 07/23/2023 Clinical Communication Division of Nephrology and Hypertension in [place], [place] [address] [place] [phone] Monica Ferreira RMonster., C.M.S.R.N. 07/17/2023 1:00 PM CDT Virtual Visit Division of Nephrology and Hypertension in [place], [place] [address] [place] [address] Sera Casiano M.D., Ph.D. Kanwal Roberts, R.N. Chronic Kidney Disease Stage 5 Glomerular Filtration Rate Less Than 15 (HCC) (Primary Dx) 07/17/2023 Orders Only Division of Nephrology and Hypertension in [place], [place] [address] [place] [phone] Sera Casiano M.D., Ph.D. 07/11/2023 Refill Division of Nephrology and Hypertension in [place], [place] [address] [place] [phone] Mónica Portillo APRN, C.N.P., M.S. Med Refill 07/10/2023 2:30 PM CDT Nurse Only Division of Nephrology and Hypertension in [place], [place] [address] [place] [address] Sera Casiano M.D., Ph.D. Aislinn Sharma R.N. home blood pressure monitor check 07/10/2023 1:00 PM CDT Comprehensive Visit Division of Nephrology and Hypertension in [place], [place] [address] [place] [address] Sera Casiano M.D., Ph.D. Elana Almonte, JANINAN, LD Chronic Kidney Disease Stage 5 Glomerular Filtration Rate Less Than 15 (HCC) 07/06/2023 9:06 AM CDT - 07/06/2023 11:59 PM CDT Hospital Encounter Department of Laboratory Medicine in [address] [place] [address] Sera Casiano M.D., Ph.D. Hypertension And Chronic Kidney Disease Stage 5 (HCC); Proteinuria; 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 Discharge Disposition: Home or Self Care 07/06/2023 9:06 AM CDT - 07/06/2023 11:59 PM CDT Hospital Encounter Department of Laboratory Medicine in [address] [place] [address] Sera Casiano M.D., Ph.D. Hypertension And Chronic Kidney Disease Stage 5 (HCC); Proteinuria; 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 Discharge Disposition: Home or Self Care from [...] Depression Mother Nora Hargrovetaemmanuelle Hypertension Mother Nora Sanchez Obesity Mother Nora Hargrovetaemmanuelle Rectal cancer Mother Nora Sanchez Stroke Paternal Grandfather Zurdo sanchez in March 1960 Cancer Sister Pat Sarad colon Colon cancer Sister Kristin Sanchez A survivor, lance gnosed March 2005 Depression Sister Pat Delvintad Hypertension Sister Pat Delvintad Obesity Sister Pat Delvintad Sleep apnea Sister Kristin Hargrovetad Heart disease Neg Hx Relation Name Status [...] alcohol) Maybe one drink per month [facility] Utilities Answer Date Recorded In the past 12 months has e [employer], gas, oil, or water [employer] threatened to shut off services in your [...] Recorded PHQ-2 Score 2 05/28/2023 [facility] Occupat ional [facility] - Occupational Stress [...] your living situation today? I have a [facility] place to live 08/28/2023 Education Answer Date Recorded What is the highest level of school you have completed or the highest degree you have received? Professional school degree (e.g., MD, DDS, DVM, NACHO) 10/10/2020 Sex and Gender Information Value Date Recorded Sex Assigned at Male 05/13/2021 10:11 AM [facility] Gender Identity Male 11/02/2017 7:22 PM CDT Sexual Orientation Straight 11/02/2017 7: 22 PM CDT Last Filed Vital Signs Vital Sign Reading Time Taken Comments Blood Pressure 179/72 10/01/2023 9:29 AM CDT Pulse 60 10/01/2023 9:29 AM CDT Temperature 36 ??C (96.8 ??F) 10/01/2023 9:20 AM CDT Respiratory Rate 17 04/07/2023 2:34 PM [facility] Oxygen Saturation 95% 10/05/2023 1:25 PM CDT Inhaled Oxygen Concentration - - Weight 140 kg (308 lb 13.8 oz) 10/05/2023 1:25 P M CDT Height 177.5 cm (5' 9.88) 10/05/2023 1:25 PM CD T Body Mass Index 44.47 10/05/2023 1:25 PM CDT Plan of Treatment Upcoming Encounters Date Type Department Care Team (Latest Contact Info) Description 10/15/2023 2:20 PM CDT Appointment Department of Laboratory Medicine in [address] [phone] Luis Carrion M.B.B.S. [address] [place] [phone] 10/15/2023 2:40 PM CDT Appointment Department of Laboratory Medicine in [address] [address] Luis Carrion M.B.B.S. [address] [place] [phone] 10/15/2023 3:30 PM CDT Ancillary Procedure Department of Cardiovascular Diseases in [address] [address] Clover Macias M.D. [address] [place] [phone] Discharge Disposition: Home or Self Care 12/18/2023 9:00 AM CDT Clinical Communication Virtual Review in [address] [address] 12/21/2023 9:15 AM CDT Ancillary Procedure Department of Ophthalmology in [address] [address] Justin Bunch M.D. [address] [place] [phone] 12/21/2023 9:45 AM CDT Ancillary Procedure Department of Ophthalmology in [place], [place] [address] [place] [address] Justin Bunch M.D. [address] [place] [address] 12/21/2023 10:00 AM CDT Office Visit Department of Ophthalmology in [place], [place] [address] [place] [address] Justin Bunch M.D. [address] [place] [phone] Health Maintenance Due Date Last Done Comments [...] for Blood Press ure Check / Re-check 01/01/2024 10/01/2023, 07/23/2023, 07/23/2023 Dilated Eye Exam 06/15/2024 06/15/2023, 01/2023, 01/19/2023, Additional history exists Urine Albumin 07/05/2024 07/06/2023, 07/2022, 09/01/2022, Additional history exists Creatinine Level (Kidney Fun ction Test) 08/19/2024 08/20/2023, 07/29/2023, 07/06/2023, Additional history exists Potassium Level 08/19/2024 08/20/2023, 04/0 06/2023, 07/06/2023, Additional history exists Sodium Level 08/19/2024 08/20/2023, 04/0 06/2023, 07/06/2023, Additional history exists Visit: Chronic Disease, age 18+ 08/27/2024 , [...] Procedure Name Priority Date/Time Associated Diagnosis Comments (TTE) 2D ECHO DOPPLER COLOR Routine 09/11/2023 11:39 AM CDT Atrial Fibrillation Unspecified (HCC) Hypertensive Chronic Kidney Disease With Stage 5 Chronic Kidney Disease Or End Stage Renal Disease, Chronic Kidney Disease Stage 5 (HCC) ECG Routine 08/28/2023 4:11 PM CDT Atrial [...] Renal Failure Chronic Kidney Disease On Erythropoietin OPHTHALMOLOGY IMAGE EXAM Routine 06/15/2023 12:00 AM [facility] COLONOSCOPY Routine 04/07/2023 1:48 PM [facility] Cancer Colon Transverse Personal History HEMOGLOBIN A1C, B Routine 03/30/2023 12:21 PM [facility] Hypertension And Chronic Kidney Disease Stage 5 (HCC) Anemia Of Chronic Renal Disease US AORTA AAA SCREENING RAD - Routine (most inpatients and all outpatients) 07/22/2017 7:39 AM CDT Maintenance Health Adult from Last 3 Months or Most Recently Relevant to Health Maintenance Results * (TTE) 2D ECHO DOPPLER COLOR (09/11/2023 11:39 AM CDT) Ejection Fraction 60 MC CV EIMS Mid-Ascending Aorta 39 MC CV EIMS LV End-Diastolic Volume 192 MC CV EIMS LV End-Systolic Volume 78 MC CV EIMS MV E Velocity 0.7 MC CV EIMS MV A Velocity 0.7 MC CV EIMS MV E/A 1 MC CV EIMS MV e' Velocity Medial 0.05 MC CV EIMS MV e' Velocity Lateral 0.09 MC CV EIMS MV E/e' Medial 14 MC CV EIMS MV E/e' Lateral 7.8 MC CV EIMS Left ventricular stroke volume index 51 MC CV EIMS Cardiac Output 7.64 MC CV EIMS Cardiac Index 2.98 MC CV EIMS Tricuspid Annular S? 0.14 MC CV EIMS RA Pressure 5 MC CV EIMS AV mean gradient 7 MC CV EIMS Aortic valve area 3.22 MC CV EIMS Aortic Valve Dimensionless Index 0.61 MC CV EIMS LA Volume Index 44 MC CV EIMS Aortic Valve Systolic Peak Velocity 1.9 MC CV EIMS Anatomical Region Laterality Modality Echocardiography 09/11/2023 10:1 6 AM CDT Impressions 09/11/2023 11:45 AM CDT LEFT VENTRICLE:Normal left ventricular chamber size. Calculated 2-D biplane volumetric left ventricular ejection fraction of 60%. No regional wall motion abnormalities. Normal left ventricular filling pressure. RIGHT VENTRICLE:Normal right ventricular chamber size. Normal right ventricular systolic function. Unable to detect peak tricuspid regurgitation velocity for pulmonary artery systolic pressure calculation. ATRIA:Moderately enlarged left atrial size. Left atrial volume index 44 ml/m2. Enlarged right atrial size. CARDIAC VALVES:Trileaflet aortic valve. Thickened aortic valve. Trivial aortic valve regurgitation. Normal mitral valve. Trivial mitral valve regurgitation. Normal pulmonary valve. Normal pulmonary valve systolic velocities. Trivial pulmonary valve regurgitation. Normal tricuspid valve. Trivial tricuspid valve regurgitation. OTHER ECHO FINDINGS:Normal inferior vena cava size with normal inspiratory collapse (>50%). Normal mid ascending aorta diameter of 39 mm. Abdominal aorta not visualized. Imaging inadequate for detection of atrial level shunt by color flow imaging. No intracardiac mass or thrombus, but the left atrial appendage cannot be visualized adequately with transthoracic echo to exclude thrombus in this location. No ??pericardial effusion. For the complete report, see the Order-Level Documents. Narrative 09/11/2023 11:45 AM CDT For the complete report, see the Order-Level Documents. Hemodynamics Heart Rate: 58 BPM Blood Pressure: 156 / 74 mmHg ECG: Sinus rhythm Final Impressions 1. Normal left ventricular chamber size, no regional wall motion abnormalities, calculated 2-D biplane volumetric ejection fraction of 60%. 2. Normal left ventricular filling pressure. 3. Normal right ventricular chamber size, normal systolic function, unable to detect peak tricuspid regurgitation velocity for pulmonary artery systolic pressure calculation. 4. No hemodynamically significant valvular heart disease. 5. Normal inferior vena cava size with normal inspiratory collapse (>50%). 6. No ??pericardial effusion. Procedure Note Jason Ham M.D., Ph.D. - 09/11/2023 For the complete report, see the Order-Level Documents. Hemodynamics Heart Rate: 58 BPM Blood Pressure: 156 / 74 mmHg ECG: Sinus rhythm Final Impressions 1. Normal left ventricular chamber size, no regional wall motionabnormalities, calculated 2-D biplane volumetric ejection fraction of60%. 2. Normal left ventricular filling pressure. 3. Normal right ventricular chamber size, normal systolic function, unableto detect peak tricuspid regurgitation velocity for pulmonary arterysystolic pressure calculation. 4. No hemodynamically significant valvular heart disease. 5. Normal inferior vena cava size with normal inspiratory collapse(>50%). 6. No pericardial effusion. Findings LEFT VENTRICLE:Normal left ventricular chamber size. Calculated 2-Dbiplane volumetric left ventricular ejection fraction of 60%. No regionalwall motion abnormalities. Normal left ventricular filling pressure. RIGHT VENTRICLE:Normal right ventricular chamber size. Normal rightventricular systolic function. Unable to detect peak tricuspidregurgitation velocity for pulmonary artery systolic pressurecalculation. ATRIA:Moderately enlarged left atrial size. Left atrial volume index 44ml/m2. Enlarged right atrial size. CARDIAC VALVES:Trileaflet aortic valve. Thickened aortic valve. Trivialaortic valve regurgitation. Normal mitral valve. Trivial mitral valveregurgitation. Normal pulmonary valve. Normal pulmonary valve systolicvelocities. Trivial pulmonary valve regurgitation. Normal tricuspid valve.Trivial tricuspid valve regurgitation. OTHER ECHO FINDINGS:Normal inferior vena cava size with normal inspiratorycollapse (>50%). Normal mid ascending aorta diameter of 39 mm. Abdominalaorta not visualized. Imaging inadequate for detection of atrial levelshunt by color flow imaging. No intracardiac mass or thrombus, but theleft atrial appendage cannot be visualized adequately with transthoracicecho to exclude thrombus in this location. No pericardial effusion. For the complete report, see the Order-Level Documents. Clover Macias M.D. CV ECHO PROCEDURES * ECG 12 Lead (08/28/2023 4:11 PM CDT) Only the most recent of2 resultswithin the time period is included. Ventricular Rate ECG/Min 43 BPM MUSE QRSD Interval 104 ms MUSE QT Interval 490 ms MUSE QTC Interval 414 ms MUSE R [place] -12 degrees MUSE T Wave [place] 95 degrees MUSE 08/28/2023 4:11 PM CDT [...] DIAGNOSTIC IMAG ING PROCEDURES * Thyroid Function [place] (08/20/2023 3:17 PM CDT) TSH, Sensitive 2.7 0.3 - 4.2 mIU/L 08/20/2023 8:07 PM CDT [facility] Blood (Blood, Venous) 08/20/2023 3:17 PM CDT 08/20/2023 7:01 PM CDT Clover Macias M.D. LAB BLOOD ADD-ON [facility] [address] [place] [address], [facility] R[facility] [address] [place] [address] * (ABNORMAL) CBC without Differential (08/20/2023 3:17 [...] CDT Clover Macias M.D. LAB BLOOD ADD-ON [facility] [address] [place] [place] [address], [facility] [address] [place] [address], [place] [address] * Magnesium (08/20/2023 3:17 PM CDT) Magnesium, P 2.0 1.7 - 2.3 mg/dL 08/20/2023 7:37 PM CDT [facility] Blood (Blood, Venous) 08/20/2023 3:17 PM CDT 08/20/2023 7:00 PM CDT Clover Macias M.D. LAB BLOOD ADD-ON [facility] [address] [facility] [place] [address], [facility] [place] [facility] [address] [place] [address], [place] [address] * (ABNORMAL) Comprehensive Metabolic Panel (08/20/2023 3:17 [...] CDT Clover Macias M.D. LAB BLOOD ADD-ON [facility] [address] [place] [address], [facility] [address] [place] [address] * US Upper Extremity Bilateral Dialysis Mapping [...] the upper pole of the left kidney ([id number]). Hypertrophic changes in the spine. Mild degenerative [...] Hyman M.D., Ph.D. LAB UR INE ORDERABLES [address] [place] [address] * (ABNORMAL) Microscopic Manual (07/29/2023 10:27 AM CDT) Pathologist [facility] Microscopy Abnormal 07/29/2023 1:01 PM CDT DTL [...] LAB UR INE ORDERABLES Performing Organization Address City/[facility]/ZIP Co de Phone Number [facility] [address] [place] [address] * pH, Urine (07/29/2023 10:27 AM CDT) pH, U 6.2 4.5 - 8.0 07/29/2023 11: 02 AM CDT DT Urine 07/29/2023 10:2 7 AM CDT 07/29/2023 10:35 AM CDT Sera Hyman M.D., Ph.D. LAB UR INE ORDERABLES Performing Organization Address City/[facility]/ZIP Co de Phone Number [facility] [address] [place] [address] * Osmolality, Urine (07/29/2023 10:27 AM CDT) Osmolality, U 323 150 - 1150 mOsm/kg 07/29/2023 11:02 AM CDT DT Urine 07/29/2023 10:2 7 AM CDT 07/29/2023 10:35 AM CDT Sera Hyman M.D., Ph.D. LAB UR INE ORDERABLES Performing Organization Address City/[facility]/ZIP Co de Phone Number [facility] [address] [place] [address] * (ABNORMAL) Urinalysis, with Microscopic: Urine, Midstream [...] 07/29/2023 11:44 AM CDT DTL Predicted Range [id number] mg/24 h 07/29/2023 11:44 AM CDT DTL Comment Micro done on <10 mL 07/29/2023 1:01 PM CDT DTL Urine (Urine, Midstream) 07/29/2023 10:27 AM CDT 07/29/2023 10:35 AM CDT Sera Hyman M.D., Ph.D. LAB UR INE ORDERABLES [facility] [address] [place] [address], [facility] [address] [place] [address] * ANCA (Antineutrophil Cytoplasmic Antibodies) Vasculitis Panel (07/29/2023 10:17 AM CDT) Myeloperoxidase Ab, S <0.2 <0.4 (Negative ) U 07/29/2023 4:45 PM CDT [facility]SC Proteinase 3 Ab (PR3), S <0.2 <0.4 (Negative ) U 07/29/2023 4:45 PM CDT [facility] Blood (Blood, Venous) 07/29/2023 10:17 AM CDT 07/29/2023 2:52 PM CDT Sera Hyman M.D., Ph.D. LAB BL OOD ADD-ON [facility] [address] [place] [address] [facility] [address] [place] [address] * (ABNORMAL) CBC with Differential, Blood (07/29/2023 10:17 AM CDT) Only the most recent of2 resultswithin the time period is included. Pathologist [facility] Hemoglobin 8.2(L) 13.2 - 16.6 g/dL 07/29/2023 [...] LAB BL OOD ADD-ON [facility] [address] [place] [address], [facility] [address] [place] [address] [facility] [address] [place] [address] * CRP (C-Reactive Protein) (07/29/2023 10:17 AM CDT) C-Reactive Protein (CRP), S <3.0 <5.0 mg/L 07/29/2023 12:32 PM CDT DTL Blood (Blood, Venous) 07/29/2023 10:17 AM CDT 07/29/2023 10:55 AM CDT Sera Hyman M.D., Ph.D. LAB BL OOD ADD-ON Performing Organization Address City/[facility]/ZIP Co de Phone Number [facility] [address] [place] [address], [facility] [address] [place] [address] * (ABNORMAL) Uric Acid (07/29/2023 10:17 AM CDT) Only the most recent of2 resultswithin the time period is included. Uric Acid, S 11.2(H) 3.7 - 8.0 mg/dL 07/29/2023 12:32 PM CDT DTL Blood (Blood, Venous) 07/29/2023 10:17 AM CDT 07/29/2023 10:55 AM CDT Sera Hyman M.D., Ph.D. LAB BL OOD ADD-ON [facility] [address] [place], [place] [id number] [place] [address] [address] [place] [address] * Phosphorus Inorganic (07/29/2023 10:17 AM CDT) [facility] Phosphorus (Inorganic), S 4.5 2.5 - 4.5 mg/dL 07/29/2023 12:32 PM CDT DTL Blood (Blood, Venous) 07/29/2023 10:17 AM CDT 07/29/2023 10:55 AM CDT Sera Hyman M.D., Ph.D. LAB BL OOD ADD-ON [facility] [address] [place], [place] [id number] [place] [address] [address] [place] [address] * (ABNORMAL) Glucose, Fasting (07/29/2023 10:17 AM CDT) [facility] Glucose, P 256(H) 70 - 100 mg/dL 07/29/2023 11:15 AM CDT DTL Last Intake 16 hr 07/29/2023 10:52 AM CDT DTL Blood (Blood, Venous) 07/29/2023 10:17 AM CDT 07/29/2023 10:52 AM CDT Sera Hyman M.D., Ph.D. LAB BL OOD NON ADD-ON [facility] [address] [place] [address], [facility] [address] [place] [address] * Pulmonary Function Tests (07/29/2023 9:02 AM CDT) [facility] FVC 2.15 L 07/29/2023 10:32 AM CDT [facility] FEV1 1.56 L 07/29/2023 10:32 AM CDT [facility] FEV1/FVC 72.56 % 07/29/2023 10:32 AM CDT [facility] COS48-15% 1.03 L/s 07/29/2023 10:32 AM CDT [facility] PEF PRE 5.91 L/s 07/29/2023 10:32 AM CDT [facility] PIF PRE 3.35 L/s 07/29/2023 10:32 AM CDT [facility] FEF 50 % FIF 50 PRE 54.00 % 07/29/2023 10:32 AM CDT [facility] FET PRE 9.49 sec 07/29/2023 10:32 AM CDT [facility] DLCO 10.65 ml/(min*mm Hg) 07/29/2023 10:32 AM CDT [facility] DLCOc 14.91 ml/(min*mm Hg) 07/29/2023 10:32 AM CDT [facility] HB 7.40 g(Hb)/dL 07/29/2023 10:32 AM CDT [facility] VA 4.05 L 07/29/2023 10:32 AM CDT [facility] PulseRest 50.00 1/min 07/29/2023 10:32 AM CDT [facility] TLC 4.43 L 07/29/2023 10:32 AM CDT [facility] FRCPLETH PROVBASE 2.72 L 07/29/2023 10:32 AM CDT [facility] RV 1.96 L 07/29/2023 10:32 AM CDT [facility] RV % TLC PRE 44.12 % 07/29/2023 10:32 AM CDT [facility] 07/29/2023 9:02 AM CDT Impressions [facility] - 07/29/2023 10:32 AM CDT Abnormal study. [...] Sera Hyman M.D., Ph.D. PFT OR DERABLES [facility] NA * (ABNORMAL) Renal Function Panel (07/06/2023 [...] Hyman M.D., Ph.D. LAB BL OOD ADD-ON [facility] [address] [place] [address], [place] [facility] [address] [place] [address] * (ABNORMAL) Cystatin C with Estimated GFR (07/06/2023 9:22 AM CDT) [facility] eGFR by Cystatin C 9(L) >60 mL/min/BSA [...] LAB BL OOD ADD-ON [facility] [address] [place] [address], [place] DTL [facility] [address] [place] [address] * (ABNORMAL) Iron and Total Iron-Binding Capacity [...] Hyman M.D., Ph.D. LAB BL OOD ADD-ON [facility] [address] [place] [address], [facility] in [address] [address] * (ABNORMAL) Albumin, Random, Urine (07/06/2023 9:22 AM CDT) Microalbumin 2309.6 mg/L 07/06/2023 1:30 PM CDT [facility] Creatinine 69 mg/dL 07/06/2023 12:51 PM CDT [facility] Albumin/Creatinin e Ratio 3347(H) <17 mg/g 07/06/2023 1:30 PM CDT [facility] Urine (Urine, Voided) 07/06/2023 9:22 AM CDT 07/06/2023 11:59 AM CDT Sera Hyman M.D., Ph.D. LAB UR INE ORDERABLES [facility] [address] [place] [address], [facility] in [address] [address] * (ABNORMAL) Protein/Creatinine Ratio, Random, Urine (07/06/2023 [...] INE ORDERABLES Performing Organization Address [facility]/ZIP Co de Phone Number [facility] [address] [place] [address], [facility] RDW[facility] in [address] [address] * (ABNORMAL) Ferritin (07/06/2023 9:22 AM CDT) Ferritin, S 457(H) 31 - 409 mcg/L 07/06/2023 12:57 PM CDT [facility] Comment: Biotin has been identified by the national flatbed truck driver as a potential interfering substance. Higher concentrations [...] Address City/[facility]/ZIP Co de Phone Number [facility] [address] [place] [address], [facility]DW[address] [facility] in [address] [address] * Eyes Spectralis OCT-Ophthalmology Image Exam (06/15/2023 12:00 AM [facility]) Narrative IIMS - 06/15/2023 2:28 PM [facility] This order has been created and auto-finalized to support the import of images acquired without order. The clinical documentation to support these images can be found on the encounter that produced images. Provider Not In System IMG NON RAD IMAGI NG PROCEDURES Performing Organization Address City/[facility] Co de Phone Number [facility] NA * (ABNORMAL) Hemoglobin A1c (03/30/2023 12:21 PM [facility]) Hemoglobin A1c, B 6.8(H) 4.2 - 5.6 % 03/30/2023 12:36 PM [facility] CNFL Comment: Hemoglobin A1c values greater than or equal to 6.5 percent are diagnostic for diabetes mellitus. ??Diagnosis should be confirmed by repeat testing. ??In diabetic patients, HbA1c goals should be discussed with healthcare provider. Blood (Blood, Venous) 03/30/2023 12:21 PM [facility] 03/30/2023 12:23 PM [facility] Kassandra Couch APRN.N.P., M.S. LAB BLOOD ADD-ON Performing Organization Address City/[facility] Co de Phone Number [facility] [address] [place] [address], [facility] CNFL [facility] [address] * [place] Aorta AAA Screening (07/22/2017 7:39 [...] Advance Directives For more information, please contact: [phone] Documents on File Type Date Recorded Patient Fractionation Plant Supervisor Expl anation Advance Directives 12/22/2017 11:40 AM [facility] Care Directive * Full Code (Latest Code [...] Agents on File Name Relationship Healthcare Agent [facility] p Communication Sayra Amanda Spouse Health Care Agent Kathie Silveira Daughter First Alternate Health Care Agent Monica Boggs Daughter First Alternate Health Care Agent Care Teams Acid Tank Cleaner Relationship Specialty Start Date End Date Clover Macias M.D. [address] [place] [id number] PCP - General Internal Medicine 11/23/17
--- OUTSIDE RECORDS SUMMARY | 2023-10-06 10:25 | XMS_ITS | Encounter Summary ---
Author Organization [facility] Address [address] [place] [address] Care Team Providers Care Multiple Games Dealer Name Role Phone Clover Delaney M.D. Primary Care Provider [phone] Reason for Referral * Outpatient (Routine) - Authorized Specialty Diagnoses / Procedures Referred By Contac t Referred To Contact Cardiovascular Disease Nikko Dey M.D. [address] [place] [address] [facility] Referral ID Status Reason Start Date Expiration Date V isits Requested Visits Authorized [id number] Authorized 10/01/2023 04/01/2025 1 1 Reason for Visit * Reason Comments Consult * Outpatient (Routine) - Closed Specialty Diagnoses / Procedures Referred By Contac t Referred To Contact Cardiovascular Diseases / Cardiovascular Disease Diagnoses Atrial Fibrillation Unspecified (HCC) Hypertensive Heart And Chronic Kidney Disease Without Heart Failure And With Stage 5 Chronic Kidney Disease (HCC) Clover Delaney M.D. [address] [place] [address] [facility] Region Referral ID Status Reason Start Date Expiration Date Visits Re quested Visits Authorized [id number] Closed 09/01/2023 03/02/2025 1 1 Encounter Details Date Type Department Care Team (Latest Contact Info) Description 10/01/2023 9:30 AM CDT Comprehensive Visit Department of Cardiovascular Diseases in [place], [place] [address] [place] [phone] Nikko Dey M.D. [address] [place] [address] Morbid Obesity Body Mass Index 45.0-49.9 Adult [...] Maybe one drink per month [facility] Utilities Answer Date Recorded In the past 12 months has [employer], gas, oil, or water [employer] threatened to shut off services in your [...] often do you attend chur ch or mu-ism services? Never 07/28/2022 Do you belong to [...] Answer Date Recorded PHQ-2 Score 2 05/28/2023 [facility] - Occupational Stress Questionnaire Answer Date Recorded [...] your living situation today? I have a [facility] place to live 08/28/2023 Education Answer Date Recorded What is the highest level of school you have completed or the highest degree you have received? Professional school degree (e.g., MD, DDS, DVM, NACHO) 10/10/2020 Sex and Gender Information Value Date Recorded Sex Assigned at Male 05/13/2021 10:11 AM [employer] INST[employer] Gender Identity Male 11/02/2017 7:22 PM CDT Sexual Orientation Straight 11/02/2017 7: 22 PM CDT documented as of this encounter Last Filed Vital Signs Vital Sign Reading Time Taken Comments Blood Pressure 179/72 10/01/2023 9:29 AM CDT Pulse 60 10/01/2023 9:29 AM CDT Temperature 36 ??C (96.8 ??F) 10/01/2023 9:20 AM CDT Respiratory Rate - - Oxygen Saturation 97% 10/01/2023 9:20 AM CDT Inhaled Oxygen Concentration - - Weight 139 kg (307 lb 5.1 oz) 10/01/2023 9:20 AM CDT Height - - Body Mass Index 44.55 07/10/2023 1:33 PM CDT documented in this encounter Patient Instructions * Patient Instructions* Nikko Dey M.D. - 10/01/2023 9:30 AM CDT Return in 3 months in [facility]. Concerns portal. documented in this encounter Consult Notes * Nikko Dey M.D. - 10/01/2023 9:30 AM CDT SUBJECTIVE REFERRING PROVIDER Clover Delaney M.D. CHIEF COMPLAINT / REASON FOR VISIT Consult HISTORY OF PRESENT ILLNESS Philip Patel is a 77 y.o. male who presents for consultation for evaluation of He has a history of CKD stage 5, Efra's granulomatosis with kidney involvement on chronic steroids, hypertension, and morbid obesity. 08/16/2023: He was seen in the emergency room with dizziness after changes with his blood pressure medications. Heart rate was in the 40s and he had a new diagnosis of atrial fibrillation. He was started on Eliquis 2.5 mg twice daily. 09/09/2023: He was noted to have a hemoglobin of 6.7 and was sent to the [place] emergency room.He described dark stools. Guaiac was negative. He was given blood. He underwent an EGD while in thespital which was reassuring. There was also concern that he had developed hematomas from falling while on Eliquis which could explain the blood loss. Aspirin was stopped while in the hospital. He presents back today overall doing reasonably well. He is feeling better. Heart rates have been in the 60s to 70s. No syncope or presyncope. He thinks he has been most of his time in normal sinus rhythm based upon his watch. He does not have awareness of atrial fibrillation. No further concerns over bleeding or dark stools. There is a plan for a fistula upcoming. Recent echo on 09/11/2023 was normal. He was in sinus rhythm during the study. MEDICAL HISTORY 1. CKD stage 5. 2. Atrial fibrillation. 3. Hypertension. 4. Obesity. 5. Diabetes mellitus type 2. 6. KIMBER on CPAP. 7. Efra's granulomatosis. 8. History of colon cancer. CURRENT MEDICATIONS Current Outpatient Medications on File Prior to Visit Medication Sig Dispense Refill atorvastatin (LIPITOR) 40 mg tablet Take 1 tablet (40 mg total) by mouth daily. 90 tablet 3 BD Ultra-Fine Josefina Pen Needle 32 gauge x 5/32 needle USE TO INJECT ONCE DAILY 100 each 3 carvediloL (COREG) 12.5 mg tablet Take 0.5 tablets (6.25 mg total) by mouth 2 (two) times a day with meals. 180 tablet 0 cholecalciferol (VITAMIN D3) 50 mcg (2,000 Unit) tablet Take 50 mcg by mouth daily. cloNIDine (CATAPRES) 0.2 mg tablet Take 1 tablet (0.2 mg total) by mouth 2 (two) times a day. 180 tablet 3 cyanocobalamin (VITAMIN B12) 1,000 mcg tablet Take 1,000 mcg by mouth daily. DME CPAP DME Order 1 each 0 doxazosin (CARDURA) 4 mg tablet Take 1 tablet (4 mg total) by mouth daily. 90 tablet 3 Eliquis 2.5 mg tablet Take 1 tablet by mouth 2 (two) times a day. flash glucose sensor (FreeStyle Brionna 2 Sensor) kit Inject 1 each (1 kit total) under the skin every 14 (fourteen) days. 6 kit 3 FLUoxetine (PROzac) 10 mg capsule Take 1 capsule (10 mg total) by mouth daily. 90 capsule 1 FreeStyle Brionna 2 [place] 1 each (1 Device total) as directed. 1 each 0 insulin glargine 100 unit/mL (3 mL) injection Inject 18 Units under the skin at bedtime. Pharmacy select brand per patient insurance/preference. irbesartan (AVAPRO) 75 mg tablet Take 1 tablet (75 mg total) by mouth daily. 90 tablet 3 iron,carbonyl-vitamin C (VITRON-C) 65 mg iron- [address] tablet Take 65 mg of iron by mouth daily. Do not crush or chew. loperamide (IMODIUM A-D) 2 mg tablet Take 2 mg by mouth as needed. miscellaneous medical supply [facility] CPAP Supplies See Instructions, CPAP machine, mask 1 ea x 4 refills, headgear 1 ea x 2 refills, tubing 1 ea x 4 refills, filters 2 ea per month, tub 1 ea x 2 refills, mask seal 1 ea x 2 refills DX G47.33, length of need 99, 1 each, 0 Refill(s) miscellaneous medical supply [facility] Head Gear for CPAP Machine See Instructions, fax to patient at [phone], 1 each MULTIVITAMIN ORAL Daily Multiple Vitamins See Instructions, Take 1 tablet by mouth daily. ONETOUCH DELICA LANCETS 33 gauge [facility] 3 OneTouch Ultra Test Strips Use to test once daily. 100 strip 3 prednisoLONE acetate (PRED FORTE) 1 % ophthalmic suspension Instill 1 drop in left eye once daily 5mL 0 prednisoLONE acetate (PRED FORTE) 1 % ophthalmic suspension place 1 drop into the left eye once daily. 5 mL 0 prednisoLONE acetate (PRED FORTE) 1 % ophthalmic suspension INSTILL ONE DROP INTO LEFT EYE ONCE DAILY 5 mL 2 predniSONE (DELTASONE) 5 mg tablet take one tablet by mouth one time daily 90 tablet 0 sevelamer carbonate (RENVELA) 800 mg tablet Take 1 tablet (800 mg total) by mouth 3 (three) times aday with meals. 270 tablet 3 sodium bicarbonate 650 mg tablet Take 1 tablet (650 mg total) by mouth 2 (two) times a day. 180 tablet 3 tirzepatide (Mounjaro) 10 mg/0.5 mL pen injector injection Inject 0.5 mL (10 mg total) under the skin every 7 (seven) days. 6 mL 3 torsemide (DEMADEX) 20 mg tablet Take 2 tablets (40 mg total) by mouth daily. (Patient taking differently: Take 20 mg by mouth daily.) 180 tablet 3 UltiCare Pen Needle 31 gauge x 1/4 needle Use to inject insulin daily 100 each 3 tirzepatide (Mounjaro) 2.5 mg/0.5 mL pen injector injection Inject 0.5 mL (2.5 mg total) under the skin every 7 (seven) days for 4 doses. From week 1 to week 4. 2 mL 0 tirzepatide (Mounjaro) 5 mg/0.5 mL pen injector injection Inject 0.5 mL (5 mg total) under the skinevery 7 (seven) days for 4 doses. 2 mL 0 tirzepatide (Mounjaro) 7.5 mg/0.5 mL pen injector injection Inject 0.5 mL (7.5 mg total) under the skin every 7 (seven) days for 4 doses. (Patient taking differently: Inject 7.5 mg under the skin every 7 (seven) days. Current dose) 2 mL 0 [DISCONTINUED] aspirin 81 mg chewable tablet Chew 1 tablet (81 mg total) daily. 90 tablet 3 Current Facility-Administered Medications on File Prior to Visit Medication Dose Route Frequency Provider Last Rate Last Admin sodium chloride 0.9 % injection 3 mL 3 mL intravenous PRN Justin Bunch, M.D. SOCIAL HISTORY Social History Tobacco Use Smoking status: Former Current packs/day: 0.00 Types: Cigarettes Start date: 1961 Quit date: 12/26/1980 Years since quittin.7 Passive exposure: Never Smokeless tobacco: Never Substance Use Topics Alcohol use: Yes Comment: Maybe one drink per month FAMILY HISTORY No family history of atrial fibrillation. REVIEW OF SYSTEMS As per HPI. OBJECTIVE BP (!) 179/72 Pulse 60 Temp 36 ??C Wt (!) 139 kg SpO2 97% BMI 44.55 kg/m?? PHYSICAL EXAMINATION General: Pleasant, conversant, and in no distress. Appears stated age. HEENT: Mucous membranes moist. Neck is supple. Trachea is midline. No scleral icterus or conjunctival pallor. Neck: Supple, no erythema. Cardiovascular: Regular rhythm and rate. No murmurs. Jugular venous pressure is normal. Pulmonary: Normal respiratory effort. Clear without wheezing or rhonchi. Abdomen: Soft, nontender, nondistended. Extremities: Warm and dry without significant edema. Psychiatric: Alert and oriented with appropriate affect. DIAGNOSTICS Lab Results Component Value Date/Time CHOL 171 11/07/2021 07:44 AM LDLCALC 114 11/07/2021 07:44 AM LDLCALC 105 04/10/2020 09:25 AM HDL 37 (L) 11/07/2021 07:44 AM HDL 38 (L) 09/11/2015 08:52 AM TRIG 112 11/07/2021 07:44 AM ASSESSMENT / PLAN 1. New diagnosis of atrial fibrillation, asymptomatic, elevated CHADS2 Vasc score on Eliquis. 2. Diabetes mellitus type 2. 3. Chronic kidney disease stage 5 with plans for fistula upcoming. 4. History of Efra's granulomatosis on chronic steroids. 5. Morbid obesity. 6. Hypertension, treated by Nephrology. He presents to Cardiovascular Clinic after a new diagnosis of atrial fibrillation. We reviewed whatatrial fibrillation is, associated conditions, rate versus rhythm control approaches, and increasedrisk of stroke. No reversible factor for his atrial fibrillation. I think it is likely related to his age, history of diabetes, hypertension, KIMBER and excess weight. He has an upcoming monitor but he appears to spend the majority of his time in normal sinus rhythm.Given his lack of awareness of atrial fibrillation, my tendency would be to treat him conservatively. Not required AV tk blockers. In fact, he there has been a tendency towards bradycardia and carvedilol could be further reduced if this was recurrent. His CHADS2 Vasc score is elevated. He will continue on Eliquis 2.5 mg twice daily. Blood pressure control as per Nephrology. I see no reason why he could not forward with a fistula. I do not think he requires further testingfrom a cardiovascular perspective prior to this. We will see him back in 3 months in [place]. Will use the portal if he was concerns in the interim. 60 minutes over half of which was spent in counseling and coordination of care in regards to atrialfibrillation, CKD stage 5. documented in this encounter Plan of Treatment Upcoming Encounters Date Type Department Care Team (Latest Contact Info) Description 10/15/2023 2:20 PM CDT Appointment Department of Laboratory Medicine in [address] [address] Luis Carrion M.B.B.S. [address] [place] [address] 10/15/2023 2:40 PM CDT Appointment Department of Laboratory Medicine in [address] [phone] Luis Carrion M.B.B.S. [address] [place] [phone] 10/15/2023 3:30 PM CDT Ancillary Procedure Department of Cardiovascular Diseases in [address] [phone] Clover Delaney M.D. [address] [place] [phone] Discharge Disposition: Home or Self Care 12/18/2023 9:00 AM CDT Clinical Communication Virtual Review in [place], [place] [address] [place] [address] 12/21/2023 9:15 AM CDT Ancillary Procedure Department of Ophthalmology in [place], [place] [address] [place] [phone] Justin Bunch M.D. [address] [place] [phone] 12/21/2023 9:45 AM CDT Ancillary Procedure Department of Ophthalmology in [place], [place] [address] [place] [phone] Justin Bunch M.D. [address] [place] [phone] 12/21/2023 10:00 AM CDT Office Visit Department of Ophthalmology in [place], [place] [address] [place] [phone] Justin Bunch M.D. [address] [place] [phone] Scheduled Referrals Name Type Priority Associated Diagnoses Order Schedule Cardiovascular Disease office visit (clinic) Outpatient Referral Routine Expect ed: 01/01/2024 (Approximate), Expires: 12/31/2024 documented as of this encounter Visit Diagnoses Diagnosis Morbid Obesity Body Mass Index 45.0-49.9 Adult (HCC)- Primary Atrial Fibrillation Unspecified (HCC) Hypertensive Heart And Chronic Kidney Disease Without Heart Failure And With Stage 5 Chronic Kidney Disease (HCC) Atrial Fibrillation Paroxysmal (HCC) documented in this encounter Additional Health Concerns Assessment Noted Time PHQ-9 Depression Total Score: 4 06/06/19 23 2:04 PM SHEET [employer]OCK INST[employer]ER documented as of this encounter Care Teams Multiple Games Dealer Relationship Specialty Start Date End Date Clover Delaney M.D. [address] [place] [address] PCP - General Internal Medicine 11/23/17 documented as of this encounter
--- OUTSIDE RECORDS SUMMARY | 2023-10-06 10:25 | XMS_ITS | Encounter Summary ---
Author Organization [facility] Address [address] [place] [address] Care Team Providers Care Sewing Machine Repairer Name Role Phone Clover Delaney M.D. 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 [address] [place] [phone] [facility] Referral ID Status Reason Start Date Expiration Date Visits Re quested Visits Authorized [id number] Closed 06/30/2023 12/29/2024 1 1 Encounter Details Date Type Department Care Team (Latest Contact Info) Description 10/05/2023 1:30 PM CDT Comprehensive Visit Division of Pulmonary Medicine in [place], [place] [address] [place] [phone] Luis Carrion M.B.B.S. 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 Never 07/28/2022 Do you [...] Answer Date Recorded PHQ-2 Score 2 05/28/2023 [facility] [place] of Occupat ional Health - Occupational Stress [...] Assigned at Male 05/13/2021 10:11 AM HEALTH SERVICES RN Gender Identity Male 11/02/2017 7:22 PM CDT Sexual Orientation Straight 11/02/2017 7: 22 PM CDT documented as of this encounter Last Filed Vital Signs Vital Sign Reading Time Taken Comments Blood Pressure - - Pulse - - Temperature - - Respiratory Rate - - Oxygen Saturation 95% 10/05/2023 1:25 PM CDT Inhaled Oxygen Concentration - - Weight 140 kg (308 lb 13.8 oz) 10/05/2023 1:25 P M CDT Height 177.5 cm (5' 9.88) 10/05/2023 1:25 PM CD T Body Mass Index 44.47 10/05/2023 1:25 PM CDT documented in this encounter Consult Notes * Luis Carrion M.B.B.S. - 10/05/2023 1:30 PM CDT SUBJECTIVE CHIEF COMPLAINT / REASON FOR VISIT Philip Sanchez is a 77 y.o. 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 HISTORY OF PRESENT ILLNESS Mr. 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 Patient was treated in the past with Bactrim but now he is off Bactrim. He is probably on 5 mg a day of prednisone. He is lately started on Mounjaro for diabetes and obesity and he has lost close to 35 lb. His kidney functions were getting worse to the point that there was discussion for fistula of placement but looks like that creatinine has come down from 4.6-3.7, could be because of Mounjaro. There is no blood in the urine,no rash, no shortness of breath, no hoarseness of voice. He states that in the afternoon when he starts feeling better as far as shortness of breath is concerned he probably can walk half a block. Clemente have history of leg edema in the past but that has also improved. He has history of colon cancer and had undergone colectomy for which he has loose stools every couple of weeks. He had recent diagnosis of atrial fibrillation for which he will undergo some rhythm monitoring. Otherwise he has anemia of chronic disease and gets Aranesp shots. He does not give history of any sinusitis, recent eye problems. He does have history of some eye issues in the past related to some infection. He does not see blood in the urine. His most recent urinalysis was in June which did not show RBCs. The following portions of the patient's history were reviewed and updated as appropriate: allergies, current medications, family history, medical history, social history, surgical history and problemlist. 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) Hypertension NOS Loss Visual Malignant Neoplasm Of Colon Adenocarcinoma (HCC) 12/08/2017 Malignant Neoplasm Of Transverse Colon (HCC) 12/12/2017 Obesity Body Mass Index 30-39.9 Adult Polyp Colon 05/02/2016 Stone Kidney 08/25/1984 Vertigo when on right side SURGICAL HISTORY Past Surgical History: Procedure Laterality Date COLON SURGERY COLONOSCOPIC POLYPECTOMY N/A 05/02/2016 Colonoscopic polypectomy COLONOSCOPY N/A 12/08/2017 Procedure: COLONOSCOPY; Surgeon: Artur Joseph M.D.; Location: [facility] GI LAB HAND-ASSISTED LAPAROSCOPIC COLECTOMY LEFT WITH ANASTOMOSIS N/A 01/13/2018 Procedure: HAND-ASSISTED LAPAROSCOPIC COLECTOMY LEFT WITH ANASTOMOSIS; Surgeon: Garland Abdi M.D.; Location: [facility] OR LENSECTOMY Left 03/03/2022 Procedure: LENSECTOMY.; Surgeon: Da Paez M.D.; Location: [facility] OR OTHER CONVERTED SHX (SEE COMMENT) N/A 01/17/1997 >Flexible fiberoptic bronchoscopy. Bronchoalveolar lavage for ICH and Hemosiderin-laden OTHER CONVERTED SHX (SEE COMMENT) N/A 01/22/1996 >Right thoracentesis OTHER CONVERTED SHX (SEE COMMENT) N/A 09/22/1995 >Aspiration left third MCP joint. RETINA INJECTIONS October RETINAL LASER PROCEDURE January 19, 2023 VITRECTOMY - PARS PLANA 23 GAUGE Left 03/03/2022 Procedure: VITRECTOMY, PARS PLANA 23 GAUGE.; Surgeon: Da Paez M.D.; Location: [facility] OR SOCIAL HISTORY Social History Tobacco Use Smoking Status Former Current packs/day: 0.00 Types: Cigarettes Start date: 1961 Quit date: 12/26/1980 Years since quittin.8 Passive exposure: Never Smokeless Tobacco Never reports that he quit smoking about 42 years ago. His smoking use included cigarettes. He started smoking about 61 years ago. He has never been exposed to tobacco smoke. He has never used smokeless tobacco. He reports current alcohol use. He reports that he does not use drugs. Smoked couple of packsper day for 20 years, quit in 1980. 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 . FAMILY HISTORY Family History Problem Relation Name Age of Onset Cancer Mother Nora Sanchez 80 colon Depression Mother Nora Sanchez Anesthesia problems Mother Nora Sanchez ponv Colon cancer Mother Nora Sanchez Had it for 7 to 8 yrs prior to Hypertension Mother Nora Sanchez Obesity Mother Nora Sanchez Rectal cancer Mother Nora Sanchez Cancer Father Sea Sanchez 70 colon Colon cancer Father Sea Sanchez 4 1/2 yrs later after diagnosed Cancer Sister Kristin Sanchez 55 colon Depression Sister Kristin Sanchez Colon cancer Sister Kristin Sanchez A survivor, diagnosed March 2005 Hypertension Sister Kristin Sanchez Sleep apnea Sister Kristin Sanchez Obesity Sister Kristin Sanchez Suicide Attempts Maternal Grandfather Benja Bermeo Committed suicide in 1955 Stroke Paternal Grandfather Zurdo sanchez in March 1960 Pancreatic cancer Aunt paternal 95 Heart disease Neg Hx OBJECTIVE PHYSICAL EXAMINATION Constitutional Comments: pallor Cardiovascular Rate and Rhythm: Normal rate and regular rhythm. Pulmonary Effort: Pulmonary effort is normal. Breath sounds: Normal breath sounds. DIAGNOSTICS Imaging: Calcified pleural plaques right lung base. Nothing for pneumonia, pulmonary edema, pleural effusion, or pneumothorax. Heart is normal in size. Stable mediastinal contours. Pulmonary Functions Testing Results: FEV1 Date Value Ref Range Status 07/29/2023 1.56 L Final FVC Date Value Ref Range Status 07/29/2023 2.15 L Final FEV1/FVC Date Value Ref Range Status 07/29/2023 72.56 % Final TLC Date Value Ref Range Status 07/29/2023 4.43 L Final DLCO Date Value Ref Range Status 07/29/2023 10.65 ml/(min*mmHg) Final Mild restriction, mild reduction in diffusing capacity ASSESSMENT / PLAN Impression/Differential Diagnosis: Based on what I have I do not think patient has active vasculitis. I would add ESR, C-reactive protein and urinalysis with the next time he will come here for any lab draw. Plan: No change of treatment needed at this time. 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 [address] [place] [phone] 10/15/2023 2:40 PM CDT Appointment Department of Laboratory Medicine in [address] [phone] Luis Carrion M.B.B.S. [address] [place] [phone] 10/15/2023 3:30 PM CDT Ancillary Procedure Department of Cardiovascular Diseases in [address] [phone] Clover Delaney M.D. [address] [place] [phone] Discharge Disposition: Home or Self Care 12/18/2023 9:00 AM CDT Clinical Communication Virtual Review in [place], [place] 200 [place] [phone] 12/21/2023 9:15 AM CDT Ancillary Procedure Department of Ophthalmology in [place], [place] [address] [place] [phone] Justin Bunch M.D. [address] [place] [phone] 12/21/2023 9:45 AM CDT Ancillary Procedure Department of Ophthalmology in [place], [place] [address] [place] [phone] Justin Bunch M.D. [address] [place] [phone] 12/21/2023 10:00 AM CDT Office Visit Department of Ophthalmology in [place], [place] [address] [place] [phone] Justin Bunch M.D. 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 [address] [place] [phone] PCP - General Internal Medicine 11/23/17 documented as of this encounter
--- OUTSIDE RECORDS SUMMARY | 2023-10-06 10:25 | XMS_ITS | Encounter Summary ---
Author Organization [facility] Address [address] [place] [address] Care Team Providers Care Net Developer With Wcf Name Role Phone Clover Delaney M.D. Primary Care Provider [phone] Reason for Visit * Reason Comments Med Refill Encounter Details Date Type Department Care Team (Late st Contact Info) Description 09/23/2023 Refill Department of Family Medicine, [facility], in [address] [place] [phone] Jocelyne Navarro M.D. [address] [place] [phone] Med Refill Social History Tobacco Use Types Packs/Day Years Used Date Smoking Tobacco: Former Cigarettes 0 1961 - 12/26/1980 Passive Smoke Exposure: Never Smokeless Tobacco: Never Alcohol Use Standard Drinks/Week Comments Yes 0 (1 standard drink = 0.6 oz pur e alcohol) Maybe one drink per month [facility] Utilities Answer Date Recorded In the [...] your living situation today? I have a [facility] place to live 08/28/2023 Education Answer Date Recorded What is the highest level of school you have completed or the highest degree you have received? Professional school degree (e.g., MD, DDS, DVM, NACHO) 10/10/2020 Sex and Gender Information Value Date Recorded Sex Assigned at Male 05/13/2021 10:11 AM PERSONNEL CLERK Gender Identity Male 11/02/2017 7:22 PM CDT Sexual Orientation Straight 11/02/2017 7: 22 PM CDT documented as of this encounter Plan of Treatment Upcoming Encounters Date Type Department Care Team (Latest Contact Info) Description 10/15/2023 2:20 PM CDT Appointment Department of Laboratory Medicine in [address] [place] [phone] Luis Carrion M.B.B.S. [address] [place] [phone] 10/15/2023 2:40 PM CDT Appointment Department of Laboratory Medicine in [address] [phone] Luis Carrion M.B.B.S. [address] [place] [phone] 10/15/2023 3:30 PM CDT Ancillary Procedure Department of Cardiovascular Diseases in [address] [phone] Clover Delaney M.D. [address] [place] [phone] Discharge Disposition: Home or Self Care 12/18/2023 9:00 AM CDT Clinical Communication Virtual Review in [address] [phone] 12/21/2023 9:15 AM CDT Ancillary Procedure Department of Ophthalmology in [address] [phone] Justin Bunch M.D. [address] [place] [phone] 12/21/2023 9:45 AM CDT Ancillary Procedure Department of Ophthalmology in [address] [phone] Justin Bunch M.D. [address] [place] [phone] 12/21/2023 10:00 AM CDT Office Visit Department of Ophthalmology in [address] [place] [phone] Justin Bunch M.D. [address] [place] [phone] documented as of this encounter Visit Diagnoses Not on filedocumented in this encounter Additional Health Concerns Assessment Noted Time PHQ-9 Depression Total Score: 4 06/06/19 23 2:04 PM PERSONNEL CLERK documented as of this encounter Care Teams Net Developer With Wcf Relationship Specialty Start Date End Date Clover Delaney M.D. [address] [place] [phone] PCP - General Internal Medicine 11/23/17 documented as of this encounter
--- OUTSIDE RECORDS SUMMARY | 2023-10-06 10:25 | XMS_ITS | Encounter Summary ---
Author Organization [facility] Address [address] [place] [address] Care Team Providers Care Senior Java Web Application Developer Name Role Phone Clover Delaney M.D. Primary Care Provider [phone] Encounter Details Date Type Department Care Team (Late st Contact Info) Description 09/11/2023 Orders Only Division of Nephrology and Hypertension in [place], [place] [address] [place] [phone] Sera Casiano M.D., Ph.D. [address] [place] [phone] Social History Tobacco Use Types Packs/Day Years Used Date Smoking Tobacco: Former Cigarettes 0 1961 - 12/26/1980 Passive Smoke Exposure: Never Smokeless Tobacco: Never Alcohol Use Standard Drinks/Week Comments Yes 0 (1 standard drink = 0.6 oz pur e alcohol) Maybe one drink per month [facility] Utilities Answer Date Recorded In [...] Answer Date Recorded PHQ-2 Score 2 05/28/2023 [facility] [place] of Occupat ional Health - Occupational Stress [...] your living situation today? I have a [facility] place to live 08/28/2023 Education Answer Date Recorded What is the highest level of school you have completed or the highest degree you have received? Professional school degree (e.g., , DDS, DVM, NACHO) 10/10/2020 Sex and Gender Information Value Date Recorded Sex Assigned at Male 05/13/2021 10:11 AM IMAGING AIDE Gender Identity Male 11/02/2017 7:22 PM CDT Sexual Orientation Straight 11/02/2017 7: 22 PM CDT documented as of this encounter Plan of Treatment Upcoming Encounters Date Type Department Care Team (Latest Contact Info) Description 10/15/2023 2:20 PM CDT Appointment Department of Laboratory Medicine in [address] [phone] Luis Carrion M.B.B.S. [address] [place] [phone] 10/15/2023 2:40 PM CDT Appointment Department of Laboratory Medicine in [address] [phone] Luis Carrion M.B.B.S. [address] [place] [phone] 10/15/2023 3:30 PM CDT Ancillary Procedure Department of Cardiovascular Diseases in [address] [phone] Clover Delaney M.D. [address] [place] [phone] Discharge Disposition: Home or Self Care 12/18/2023 9:00 AM CDT Clinical Communication Virtual Review in [place], [place] [address] [place] [phone] 12/21/2023 9:15 AM CDT Ancillary Procedure Department of Ophthalmology in [address] [phone] Justin Bunch M.D. [address] [place] [phone] 12/21/2023 9:45 AM CDT Ancillary Procedure Department of Ophthalmology in [address] [phone] Justin Bunch M.D. [address] [place] [phone] 12/21/2023 10:00 AM CDT Office Visit Department of Ophthalmology in [address] [phone] Justin Bunch M.D. [address] [place] [phone] documented as of this encounter Visit Diagnoses Not on filedocumented in this encounter Additional Health Concerns Assessment Noted Time PHQ-9 Depression Total Score: 4 06/06/19 23 2:04 PM IMAGING AIDE documented as of this encounter Care Teams Senior Java Web Application Developer Relationship Specialty Start Date End Date Clover Delaney M.D. [address] [place] [phone] PCP - General Internal Medicine 11/23/17 documented as of this encounter
--- OUTSIDE RECORDS SUMMARY | 2023-10-06 10:25 | XMS_ITS | Encounter Summary ---
Author Organization [facility] Address [address] [place] [address] Care Team Providers Care Farm Operations Manager Name Role Phone Clover Delaney M.D. Primary Care Provider [phone] Reason for Referral * Outpatient (Routine) - Closed Specialty Diagnoses / Procedures Referred By Yenny hunter Referred To Contact Diagnoses Atrial Fibrillation Unspecified (HCC) Hypertensive Chronic Kidney Disease With Stage 5 Chronic Kidney Disease Or End Stage Renal Disease, Chronic Kidney Disease Stage 5 (HCC) Procedures Echo Transthoracic (TTE) Clover Delaney M.D. [address] [place] [address] [facility] Referral ID Status Reason Start Date Expiration Date Visits Re quested Visits Authorized [id number] Closed 08/19/2023 08/18/2024 1 1 Reason for Visit * Outpatient (Routine) - Closed Specialty Diagnoses / Procedures Referred By Yenny hunter Referred To Contact Diagnoses Atrial Fibrillation Unspecified (HCC) Hypertensive Chronic Kidney Disease With Stage 5 Chronic Kidney Disease Or End Stage Renal Disease, Chronic Kidney Disease Stage 5 (HCC) Procedures Echo Transthoracic (TTE) Clover Delaney M.D. [address] [place] [address] [facility] Referral ID Status Reason Start Date Expiration Date Visits Re quested Visits Authorized [id number] Closed 08/19/2023 08/18/2024 1 1 Encounter Details Date Type Department Care Team (Latest Contact Info) Description 09/11/2023 10:11 AM CDT - 09/11/2023 11:59 PM CDT Hospital Encounter Department of Cardiovascular Diseases in [place], [place] [address] [place] [phone] Clover Delaney M.D. [address] [place] [phone] Atrial Fibrillation Unspecified (HCC); Hypertensive Chronic Kidney [...] e alcohol) Maybe one drink per month [facility] Utilities Answer Date Recorded In the past 12 months has [employer] gas, oil, or water [employer] threatened to shut off services in your [...] you attend chur ch or pentecostalism services? Never 07/28/2022 Do you belong to [...] living situation today? I have a [facility] place to live 08/28/2023 Education Answer Date Recorded What is the highest level of school you have completed or the highest degree you have received? Professional school degree (e.g., MD, DDS, DVM, NACHO) 10/10/2020 Sex and Gender Information Value Date Recorded Sex Assigned at Male 05/13/2021 10:11 AM WOOL W[employer]ER FEEDER Gender Identity Male 11/02/2017 7:22 PM CDT Sexual Orientation Straight 11/02/2017 7: 22 PM CDT documented as of this encounter Medications at Time of Discharge Medication Sig Dispensed Refills Start Date End Date atorvastatin (LIPITOR) 40 mg tabletIndications:Morbid Obesity (HCC) Take 1 tablet (40 mg total) by mouth daily. 90 tablet 3 06/29/2023 BD Ultra-Fine Josefina Pen Needle 32 gauge x 5/32 needle USE TO INJECT ONCE DAILY 100 each 3 05/08/2023 carvediloL (COREG) 12.5 mg tablet Take 0.5 tablets (6.25 mg total) by mouth 2 (two) times a day with meals. 180 tablet 08/28/2023 cholecalciferol (VITAMIN D3) 50 mcg (2,000 Unit) [...] mouth 2 (two) times a day. 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 6 kit 3 08/31/2023 08/30/2024 FLUoxetine (PROzac) 10 mg capsule Take 1 capsule (10 mg total) by mouth daily. 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 1 each 08/18/2023 insulin glargine 100 unit/mL (3 mL) injection Inject 18 Units under the skin at bedtime. Pharmacy select brand per patient insurance/preferen ce. irbesartan (AVAPRO) 75 mg tablet Take 1 tablet (75 mg total) by mouth daily. 90 tablet 3 07/13/2023 iron,carbonyl-vitamin C (VITRON-C) 65 mg iron- [address] tablet Take 65 mg of iron by mouth daily. Do not crush or chew. loperamide (IMODIUM A-D) 2 mg tablet Take 2 mg by mouth as needed. miscellaneous medical supply [facility] [...] each, 0 Refill(s) 10/20/2016 miscellaneous medical supply [facility] [place] [facility] for CPAP Machine See Instructions, fax to patient at [phone], 1 each 01/17/2014 MULTIVITAMIN ORAL Daily Multiple [...] LEFT EYE ONCE DAILY 5 mL 2 09/07/2023 sevelamer carbonate (RENVELA) 800 mg tablet Take [...] (seven) days. 6 mL 3 09/03/2023 09/02/2024 torsemide (DEMADEX) 20 mg tablet Take 2 tablets (40 mg total) by mouth daily. 180 tablet 3 08/28/2023 08/27/2024 UltiCare Pen Needle 31 gauge x 1/4 needleIndications:Diabet es Mellitus Type 2 With Diabetic Neuropathy Hyperglycemic (HCC) Use to inject insulin daily 100 each 3 03/31/2022 aspirin 81 mg chewable tablet Chew 1 tablet (81 mg total) daily. 90 tablet 3 01/06/2020 10/01/2023 predniSONE (DELTASONE) 5 mg tablet TAKE ONE TABLET BY MOUTH ONE TIME DAILY 90 tablet 3 10/23/2022 09/25/2023 documented as of this encounter Plan of Treatment Upcoming Encounters Date Type Department Care Team (Latest Contact Info) Description 10/15/2023 2:20 PM CDT Appointment Department of Laboratory Medicine in [address] [phone] Luis Carrion M.B.B.S. [address] [place] [phone] 10/15/2023 2:40 PM CDT Appointment Department of Laboratory Medicine in [address] [phone] Luis Carrion M.B.B.S. [address] [place] [phone] 10/15/2023 3:30 PM CDT Ancillary Procedure Department of Cardiovascular Diseases in [address] [phone] Clover Delaney M.D. [address] [place] [phone] Discharge Disposition: Home or Self Care 12/18/2023 9:00 AM CDT Clinical Communication Virtual Review in [address] [phone] 12/21/2023 9:15 AM CDT Ancillary Procedure Department of Ophthalmology in [address] [phone] Justin Bunch M.D. [address] [place] [phone] 12/21/2023 9:45 AM CDT Ancillary Procedure Department of Ophthalmology in [address] [phone] Justin Bunch M.D. [address] [place] [phone] 12/21/2023 10:00 AM CDT Office Visit Department of Ophthalmology in [address] [phone] Justin Bunch M.D. [address] [place] [phone] documented as of this encounter Procedures Procedure Name Priority Date/Time Associated Diagnosis Comments (TTE) 2D ECHO DOPPLER COLOR Routine 09/11/2023 11:39 AM CDT Atrial Fibrillation Unspecified (HCC) Hypertensive Chronic Kidney Disease With Stage 5 Chronic Kidney Disease Or End Stage Renal Disease, Chronic Kidney Disease Stage 5 (HCC) documented in this encounter Results * (TTE) 2D ECHO DOPPLER COLOR [...] complete report, see the Order-Level Documents. Clover Delaney M.D. CV ECHO PROCEDURES documented in this encounter Visit Diagnoses Diagnosis Atrial Fibrillation Unspecified (HCC) Hypertensive Chronic Kidney Disease With Stage 5 Chronic Kidney Disease Or End Stage Renal Disease, Chronic Kidney Disease Stage 5 (HCC) documented in this encounter Additional Health Concerns Assessment Noted Time PHQ-9 Depression Total Score: 4 06/06/19 23 2:04 PM WOOL W[employer]ER FEEDER documented as of this encounter Care Teams Farm Operations Manager Relationship Specialty Start Date End Date Clover Delaney M.D. [address] [place] [phone] PCP - General Internal Medicine 11/23/17 documented as of this encounter
--- OUTSIDE RECORDS SUMMARY | 2023-10-06 10:25 | XMS_ITS | Referral Summary ---
Author Organization [facility] Address [address] [place] [address] Care Team Providers Care It Risk Analyst Name Role Phone Clover Macias M.D. Primary Care Provider [phone] Source Comments Patient records contain information from all sites at [facility]. For routine questions regarding patient records, call [phone] during business hours, M-F 8:00 AM - 5:00 PM Central Time. Record requests for emergency care only can be directed to [phone] at any time.[facility] Encounters Date Type Department Care Team Description 10/05/2023 1:30 PM CDT Comprehensive Visit Division of Pulmonary Medicine in [place], [place] [address] [place] [address] Luis Carrion M.B.BJosé LuisS. 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 Med Refill 09/16/2023 3:00 PM CDT External Outreach Division of Nephrology and Hypertension in [place], [place] [address] [place] [address] Sera Casiano M.D., Ph.D. 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 Failure Renal End Stage (HCC) (Primary Dx) 09/11/2023 Orders Only Division of Nephrology and Hypertension in [place], [place] [address] [place] [address] Sera Casiano M.D., Ph.D. 09/11/2023 10:11 AM CDT - 09/11/2023 11:59 PM CDT Hospital Encounter Department of Cardiovascular Diseases in [address] [phone] Clover Macias M.D. Atrial Fibrillation Unspecified (HCC); Hypertensive Chronic Kidney Disease With Stage 5 Chronic Kidney Disease Or End Stage Renal Disease, Chronic Kidney Disease Stage 5 (HCC) Discharge Disposition: Home or Self Care 09/09/2023 Clinical Communication Division of Nephrology and Hypertension in [place], [place] [address] [place] [address] Sera Casiano M.D., Ph.D. 09/08/2023 2:00 PM CDT Virtual Visit Department of Family Medicine, [facility], in [address] [address] Clover Macias M.D. 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 Med Refill 09/01/2023 Clinical Communication Department of [facility] Internal Medicine [place] [address] [place] [address] Clover Macias M.D. 08/28/2023 Refill Department of [facility] Internal Medicine in [address] [place] [address] Clover Macias M.D. Med Refill 08/28/2023 3:30 PM CDT Office Visit Department of [facility] Internal Medicine [place] [address] [place] [address] Clover Macias M.D. Follow Up Exam (Primary [...] Refill Division of Nephrology and Hypertension in [place], [place] [address] [place] [phone] Mónica Portillo APRN, C.N.P., M.S. Med Refill 08/25/2023 Clinical Communication Division of Nephrology and Hypertension in [place], [place] [address] [place] [phone] Sera Casiano M.D., Ph.D. infusion orders 08/25/2023 Refill Department of Ophthalmology in [place], [place] [address] [place] [phone] Jon Juarez M.D. Med Refill 08/22/2023 Nurse Triage Department of Community Internal Medicine in [place] [address] [place] [address] Savanah Gibson M.S.Cally., R.N. Hyperglycemia 08/21/2023 Orders Only Division of Endocrinology in [place], [place] [address] [place] [address] Cammy Silva M.D. Diabetes Mellitus Type 2 With Diabetic Neuropathy (HCC) (Primary Dx) 08/21/2023 Refill Department of Community Internal Medicine in [place] [address] [place] [address] Clover Macias M.D. Med Refill 08/20/2023 3:08 PM CDT - 08/20/2023 11:59 PM CDT Hospital Encounter Department of Radiology in [place] [address] [place] [address] Clover Macias M.D. Atrial Fibrillation Unspecified (HCC); Hypertensive Chronic Kidney Disease With Stage 5 Chronic Kidney Disease Or End Stage Renal Disease, Chronic Kidney Disease Stage 5 (HCC) Discharge Disposition: Home or Self Care 08/20/2023 3:07 PM CDT Hospital Encounter Department of Radiology in [place] [address] [place] [address] Clover Macias M.D. Atrial Fibrillation Unspecified (HCC); Hypertensive Chronic Kidney Disease With Stage 5 Chronic Kidney Disease Or End Stage Renal Disease, Chronic Kidney Disease Stage 5 (HCC) Discharge Disposition: Home or Self Care 08/20/2023 3:00 PM CDT - 08/20/2023 3:06 PM CDT Hospital Encounter Department of Laboratory Medicine in [place] [address] [place] [address] Clover Macias M.D. Atrial Fibrillation Unspecified (HCC); Hypertensive Chronic Kidney Disease With Stage 5 Chronic Kidney Disease Or End Stage Renal Disease, Chronic Kidney Disease Stage 5 (HCC) Discharge Disposition: Home or Self Care 08/20/2023 Orders Only [facility] [address] [place] [address] [place] [phone] Barbara Diane, Pharm.D., R.Ph., 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 08/19/2023 Orders Only Department of [facility] Internal Medicine in [address] [place] [address] Clover Macias M.D. Atrial Fibrillation Unspecified (HCC) (Primary Dx); Hypertensive Chronic Kidney Disease With Stage 5 Chronic Kidney Disease Or End Stage Renal Disease, Chronic Kidney Disease Stage 5 (HCC) 08/17/2023 Refill Department of [facility] Internal Medicine in [place] [address] [place] [address] Clover Macias M.D. Med Refill 08/16/2023 Nurse Triage Department of [facility] Internal Medicine in [address] [place] [address] Philomena Raya, R.N. Bradycardia; Weakness - Generalized 08/10/2023 Clinical Communication Division of Nephrology and Hypertension in [place], [place] [address] [place] [address] Kanwal Roberts R.N. 08/05/2023 4:00 PM CDT External Outreach Division of Nephrology and Hypertension in [place], [place] [address] [place] [address] Sera Casiano M.D., Ph.D. Chronic Kidney Disease Stage 5 Glomerular Filtration Rate Less Than 15 (HCC) (Primary Dx); Preoperative Exam; Hypertensive Chronic Kidney Disease With Stage 5 Chronic Kidney Disease Or End Stage Renal Disease, Chronic Kidney Disease Stage 5 (HCC) 07/29/2023 Documentation Division of Nephrology and Hypertension in [place], [place] [address] [place] [phone] Kanwal Roberts R.N. 07/29/2023 9:49 AM CDT - 07/29/2023 10:51 AM CDT Hospital Encounter Department of Laboratory Medicine and Pathology, [place], [place] [address] [place] [phone] Sera Casiano M.D., Ph.D. 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 Sandeep Kuo M.D., Ph.D. Chronic Kidney Disease Stage 5 Glomerular Filtration Rate Less Than 15 (HCC) Discharge Disposition: Home or Self Care 07/29/2023 12:13 PM CDT - 07/29/2023 2:39 PM CDT Hospital Encounter Department of Radiology, [facility] in [place], [place] [address] [place] [phone] Sera Casiano M.D., Ph.D. Chronic Kidney Disease Stage 5 Glomerular Filtration Rate Less Than 15 (HCC) Discharge Disposition: Home or Self Care 07/23/2023 Clinical Communication Division of Nephrology and Hypertension in [place], [place] [address] [place] [address] Monica Ferreira R.N., C.M.S.R.N. 07/17/2023 Orders Only Division of Nephrology and Hypertension in [place], [place] [address] [place] [address] Sera Casiano M.D., Ph.D. 07/17/2023 1:00 PM CDT Virtual Visit Division of Nephrology and Hypertension in [place], [place] [address] [place] [address] Sera Casiano M.D., Ph.D. Kanwal Roberts, R.N. Chronic Kidney Disease Stage 5 Glomerular Filtration Rate Less Than 15 (HCC) (Primary Dx) 07/11/2023 Refill Division of Nephrology and Hypertension in [place], [place] [address] [place] [address] Mónica Portillo APRN, C.N.P., M.S. Med Refill 07/10/2023 1:00 PM CDT Comprehensive Visit Division of Nephrology and Hypertension in [place], [place] [address] [place] [address] Sera Casiano M.D., Ph.D. Elana Almonte RDN, LD Chronic Kidney Disease Stage 5 Glomerular Filtration Rate Less Than 15 (HCC) 07/10/2023 2:30 PM CDT Nurse Only Division of Nephrology and Hypertension in [place], [place] [address] [place] [address] Sera Casiano M.D., Ph.D. Aislinn Sharma, R.N. home blood pressure monitor check 07/06/2023 9:06 AM CDT - 07/06/2023 11:59 PM CDT Hospital Encounter Department of Laboratory Medicine in [place], [place] [address] [place] [address] [place] [address] Sera Casiano M.D., Ph.D. 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 Hypertension And Chronic [...] Date End Date Status miscellaneous medical supply [facility] CPAP Supplies See Instructions, CPAP machine, mask 1 ea x 4 refills, headgear 1 ea x 2 refills, tubing 1 ea x 4 refills, filters 2 ea per month, tub 1 ea x 2 refills, mask seal 1 ea x 2 refills DX G47.33, length of need 99, 1 each, 0 Refill(s) 7 Active miscellaneous medical supply [facility] Head Gear for CPAP Machine See Instructions, fax to patient at [phone], 1 each 4 Active MULTIVITAMIN ORAL Daily [...] 4 WRITTEN ON 07/01/2018 3:01 PM BY CLOEVR MACIAS M.D. Was doing well on lisinopril, [...] Overview: Added automatically from request for surgery [id number] Cancer Colon Transverse Personal History 020 Overview: 03/2018 No evidence of metastatic disease, stable colon, diverticulosis on CT 04/09/2020 ([facility], [facility]) Repeat colonoscopy fall [address] Sewell (oncology, [place]), follow up Dr. Sewell 6-12 months with [...] of 03/2020 and determined to be benign ([facility] records). Obstructive Sleep Apnea Adult 12/07/2015 [...] Overview: Added automatically from request for surgery [id number] Hematochezia 11/09/2017 07/01/2018 Overview: Added automatically from request for surgery [id number] Diarrhea 11/09/2017 09/28/2018 Overview: S/P recurrent c [...] alcohol) Maybe one drink per month [facility] Transfer Toities Answer Date Recorded In the past 12 months has e Unoco[employer], gas, oil, or water Pumpic threatened to shut off services in your [...] PHQ-2 Score 2 05/28/2023 [facility] Occupational Stress Questionnaire Answer Date Recorded [...] Sex Assigned at Male 05/13/2021 10:11 AM ACCOUNTANT SUPERVISOR Gender Identity Male 11/02/2017 7:22 PM CDT Sexual Orientation Straight 11/02/2017 7: 22 PM CDT Last Filed Vital Signs Vital Sign Reading Time Taken Comments Blood Pressure 179/72 10/01/2023 9:29 AM CDT Pulse 60 10/01/2023 9:29 AM CDT Temperature 36 ??C (96.8 ??F) 10/01/2023 9:20 AM CDT Respiratory Rate 17 04/07/2023 2:34 PM ACCOUNTANT SUPERVISOR Oxygen Saturation 95% 10/05/2023 1:25 PM CDT [...] CDT Appointment Department of Laboratory Medicine in [address] [phone] Luis Carrion M.B.B.S. 200 [place] [phone] 10/15/2023 2:40 PM CDT Appointment Department of Laboratory Medicine in [address] [address] Luis Carrion M.B.B.S. [address] [place] [phone] 10/15/2023 3:30 PM CDT Ancillary Procedure Department of Cardiovascular Diseases in [address] [address] Clover Macias M.D. [address] [place] [phone] Discharge Disposition: Home or Self Care 12/18/2023 9:00 AM CDT Clinical Communication Virtual Review in [place], [place] [address] [place] [address] 12/21/2023 9:15 AM CDT Ancillary Procedure Department of Ophthalmology in [place], [place] [address] [place] [phone] Justin Bunch M.D. [address] [place] [phone] 12/21/2023 9:45 AM CDT Ancillary Procedure Department of Ophthalmology in [place], [place] [address] [place] [phone] Justin Bunch M.D. [address] [place] [phone] 12/21/2023 10:00 AM CDT Office Visit Department of Ophthalmology in [place], [place] [address] [place] [phone] Justin Bunch M.D. [address] [place] [phone] Procedures Procedure Name Priority Date/Time Associated Diagnosis [...] OPHTHALMOLOGY IMAGE EXAM Routine 06/15/2023 12:00 AM ACCOUNTANT SUPERVISOR COLONOSCOPY Routine 04/07/2023 1:48 PM ACCOUNTANT SUPERVISOR Cancer Colon Transverse Personal History HEMOGLOBIN A1C, B Routine 03/30/2023 12:21 PM ACCOUNTANT SUPERVISOR Hypertension And Chronic Kidney Disease Stage [...] MUSE QTC Interval 414 ms MUSE R Casar -12 degrees MUSE T Wave Casar 95 degrees MUSE 08/28/2023 4:11 PM CDT [...] longer evident in Lateral leads Reviewed by Abundio Beberg, CRAT Clover Macias M.D. ECG ORDERABLES MUSE NA [...] DIAGNOSTIC IMAG ING PROCEDURES * Thyroid Function [place] (08/20/2023 3:17 PM CDT) TSH, Sensitive 2.7 0.3 - 4.2 mIU/L 08/20/2023 8:07 PM CDT [facility] Blood (Blood, Venous) 08/20/2023 3:17 PM CDT 08/20/2023 7:01 PM CDT Clover Macias M.D. LAB BLOOD ADD-ON [facility] [address] [place] [address], [place] [facility] in [place] [address] [place] [address] * (ABNORMAL) CBC without Differential (08/20/2023 3:17 [...] CDT Clover Macias M.D. LAB BLOOD ADD-ON [facility] [address] [place] [address], [facility] in [place] [address] [place] [phone] * Magnesium (08/20/2023 3:17 PM CDT) Magnesium, P 2.0 1.7 - 2.3 mg/dL 08/20/2023 7:37 PM CDT [facility] Blood (Blood, Venous) 08/20/2023 3:17 PM CDT 08/20/2023 7:00 PM CDT Clover Macias M.D. LAB BLOOD ADD-ON [facility] [address] [place] [address], [facility] in [place] [address] [place] [address] * (ABNORMAL) Comprehensive Metabolic Panel (08/20/2023 3:17 [...] CDT Clover Macias M.D. LAB BLOOD ADD-ON [facility] 701 [place] [place] [address], [facility] in [place] 701 [place] [address] * US Upper Extremity Bilateral Dialysis Mapping [...] the upper pole of the left kidney ([id number]). Hypertrophic changes in the spine. Mild degenerative [...] Hyman M.D., Ph.D. LAB UR INE ORDERABLES [facility] [address] [place] [address], [facility] [address] [place] [address] * (ABNORMAL) Microscopic Manual (07/29/2023 10:27 AM [...] LAB UR INE ORDERABLES Performing Organization Address City/[facility] Co de Phone Number [facility] [address] [place] [address] * pH, Urine (07/29/2023 10:27 AM CDT) pH, U 6.2 4.5 - 8.0 07/29/2023 11: 02 AM CDT DTL Urine 07/29/2023 10:2 7 AM CDT 07/29/2023 10:35 AM CDT Sera Hyman M.D., Ph.D. LAB UR INE ORDERABLES Performing Organization Address City/[facility] Co de Phone Number [facility] [address] [place] [address] * Osmolality, Urine (07/29/2023 10:27 AM CDT) Osmolality, U 323 150 - 1150 mOsm/kg 07/29/2023 11:02 AM CDT DTL Urine 07/29/2023 10:2 7 AM CDT 07/29/2023 10:35 AM CDT Sera Hyman M.D., Ph.D. LAB UR INE ORDERABLES [facility] [address] [place] [address], [facility] [address] [place] [address] * (ABNORMAL) Urinalysis, with Microscopic: Urine, Midstream [...] 07/29/2023 11:44 AM CDT DTL Predicted Range 2563-11021 mg/24 h 07/29/2023 11:44 AM CDT DTL Comment Micro done on <10 mL 07/29/2023 1:01 PM CDT DTL Urine (Urine, Midstream) 07/29/2023 10:27 AM CDT 07/29/2023 10:35 AM CDT Sera Hyman M.D., Ph.D. LAB UR INE ORDERABLES [facility] [address] [place] [address], [facility] [address] [place] [address] * ANCA (Antineutrophil Cytoplasmic Antibodies) Vasculitis Panel (07/29/2023 10:17 AM CDT) Myeloperoxidase Ab, S <0.2 <0.4 (Negative ) U 07/29/2023 4:45 PM CDT SDSC Proteinase 3 Ab (PR3), S <0.2 <0.4 (Negative ) U 07/29/2023 4:45 PM CDT [facility] Blood (Blood, Venous) 07/29/2023 10:17 AM CDT 07/29/2023 2:52 PM CDT Sera Hyman M.D., Ph.D. LAB BL OOD ADD-ON [facility] [address] [place] [address] [facility] [address] [place] [address] * (ABNORMAL) CBC with Differential, Blood (07/29/2023 [...] [facility] [address] [place] [address] * CRP (C-Reactive Protein) (07/29/2023 10:17 AM CDT) Pathologist [facility] C-Reactive Protein (CRP), S <3.0 <5.0 mg/L 07/29/2023 12:32 PM CDT DT Blood (Blood, Venous) 07/29/2023 10:17 AM CDT 07/29/2023 10:55 AM CDT Sera Hyman M.D., Ph.D. LAB BL OOD ADD-ON Performing Organization Address City/[facility]/ZIP Co de Phone Number [facility] [address] [place] [address] * (ABNORMAL) Uric Acid (07/29/2023 10:17 AM CDT) Only the most recent of2 resultswithin the time period is included. Uric Acid, S 11.2(H) 3.7 - 8.0 mg/dL 07/29/2023 12:32 PM CDT DTL Blood (Blood, Venous) 07/29/2023 10:17 AM CDT 07/29/2023 10:55 AM CDT Sera Hyman M.D., Ph.D. LAB BL OOD ADD-ON [facility] [address] [place] [address] * Phosphorus Inorganic (07/29/2023 10:17 AM CDT) Phosphorus (Inorganic), S 4.5 2.5 - 4.5 mg/dL 07/29/2023 12:32 PM CDT DTL Blood (Blood, Venous) 07/29/2023 10:17 AM CDT 07/29/2023 10:55 AM CDT Sera Hyman M.D., Ph.D. LAB BL OOD ADD-ON Performing Organization Address City/[facility]/ZIP Co de Phone Number [facility] [address] [place] [address], [facility] [address] [place] [address] * (ABNORMAL) Glucose, Fasting (07/29/2023 10:17 AM CDT) Glucose, P 256(H) 70 - 100 mg/dL 07/29/2023 11:15 AM CDT DTL Last Intake 16 hr 07/29/2023 10:52 AM CDT DTL Blood (Blood, Venous) 07/29/2023 10:17 AM CDT 07/29/2023 10:52 AM CDT Sera Hyman M.D., Ph.D. LAB BL OOD NON ADD-ON Performing Organization Address City/[facility]/ZIP Co de Phone Number [facility] [address] [place] [address], [facility] [address] [place] [address] * Pulmonary Function Tests (07/29/2023 9:02 AM CDT) FVC 2.15 L 07/29/2023 10:32 AM CDT [facility] FEV1 1.56 L 07/29/2023 10:32 AM CDT [facility] FEV1/FVC 72.56 % 07/29/2023 10:32 AM CDT [facility] DVZ82-00% 1.03 L/s 07/29/2023 10:32 AM CDT [facility] PEF PRE 5.91 L/s 07/29/2023 10:32 AM CDT [facility] PIF PRE 3.35 L/s 07/29/2023 10:32 AM CDT [facility] FEF 50 % FIF 50 PRE 54.00 % 07/29/2023 10:32 AM CDT [facility] FET PRE 9.49 sec 07/29/2023 10:32 AM CDT [facility] DLCO 10.65 ml/(min*mm Hg) 07/29/2023 10:32 AM CDT [facility] DLCOc 14.91 ml/(min*mm Hg) 07/29/2023 10:32 AM CDT [facility] HB 7.40 g(Hb)/dL 07/29/2023 10:32 AM CDT [facility] VA 4.05 L 07/29/2023 10:32 AM CDT [facility] PulseRest 50.00 1/min 07/29/2023 10:32 AM CDT [facility] TLC 4.43 L 07/29/2023 10:32 AM CDT [facility] FRCPLETH PROVBASE 2.72 L 07/29/2023 10:32 AM CDT [facility] RV 1.96 L 07/29/2023 10:32 AM CDT [facility] RV % TLC PRE 44.12 % 07/29/2023 10:32 AM CDT [facility] 07/29/2023 9:02 AM CDT Impressions [facility] - 07/29/2023 10:32 AM CDT [...] Sera Hyman M.D., Ph.D. PFT OR DERABLES [facility] NA * (ABNORMAL) Renal Function Panel (07/06/2023 [...] ADD-ON [facility] [address] [place] [address], [facility] in [place] [address] [place] [address] * (ABNORMAL) Cystatin C with Estimated GFR [...] [facility] [address] [place] [address], [place] DTL [facility] [address] [place] [address] * (ABNORMAL) Iron and Total Iron-Binding Capacity [...] LAB BL OOD ADD-ON Performing Organization Address City/[facility]/ZIP Co de Phone Number [facility] [address] [place] [address], [facility] in [address] [address] * (ABNORMAL) Albumin, Random, Urine (07/06/2023 9:22 AM CDT) Microalbumin 2309.6 mg/L 07/06/2023 1:30 PM CDT [facility] Creatinine 69 mg/dL 07/06/2023 12:51 PM CDT [facility] Albumin/Creatinin e Ratio 3347(H) <17 mg/g 07/06/2023 1:30 PM CDT [facility] Urine (Urine, Voided) 07/06/2023 9:22 AM CDT 07/06/2023 11:59 AM CDT Sera Hyman M.D., Ph.D. LAB UR INE ORDERABLES [facility] [address] [place] [address], [facility] in [address] [place] [address] * (ABNORMAL) Protein/Creatinine Ratio, Random, Urine (07/06/2023 [...] Hyman M.D., Ph.D. LAB UR INE ORDERABLES [facility] [address] [place] [address], [facility] in [address] [address] * (ABNORMAL) Ferritin (07/06/2023 9:22 AM CDT) Ferritin, S 457(H) 31 - 409 mcg/L 07/06/2023 12:57 PM CDT [facility] Comment: Biotin has been identified by the lung gun operator as a potential interfering substance. Higher [...] [facility] [address] [place] [address], [facility] R[facility] in [place] [address] [place] [phone] * Eyes [facility] OCT-Ophthalmology Image Exam (06/15/2023 12:00 AM ACCOUNTANT SUPERVISOR) Narrative IIMS - 06/15/2023 2:28 PM ACCOUNTANT SUPERVISOR This order has been created and auto-finalized to support the import of images acquired without order. The clinical documentation to support these images can be found on the encounter that produced images. Provider Not In System IMG NON RAD IMAGI NG PROCEDURES Performing Organization Address City/[facility] Co de Phone Number [facility] NA * (ABNORMAL) Hemoglobin A1c (03/30/2023 12:21 PM ACCOUNTANT SUPERVISOR) Hemoglobin A1c, B 6.8(H) 4.2 - 5.6 % 03/30/2023 12:36 PM ACCOUNTANT SUPERVISOR CNFL Comment: Hemoglobin A1c values greater than or equal to 6.5 percent are diagnostic for diabetes mellitus. ??Diagnosis should be confirmed by repeat testing. ??In diabetic patients, HbA1c goals should be discussed with healthcare provider. Blood (Blood, Venous) 03/30/2023 12:21 PM ACCOUNTANT SUPERVISOR 03/30/2023 12:23 PM ACCOUNTANT SUPERVISOR Drew Couch APRNN.P., M.S. LAB BLOOD ADD-ON Performing Organization Address City/[facility]/ZIP Co de Phone Number [facility] [address] [place] [address] [address] [place] [address], [facility] CNFL [facility] in [address] [place] [address] * US Aorta AAA Screening (07/22/2017 7:39 [...] Advance Directives For more information, please contact: [phone] Documents on File Type Date Recorded Patient Manager Of Regulatory Affairs Expl anation Advance Directives 12/22/2017 11:40 AM a [facility] Care Directive * Full Code [...] Agents on File Name Relationship Healthcare Agent [facility] Communication Sayra Amanda Spouse Health Care Agent Kathie Silveira Daughter First Alternate Health Care Agent Monica Boggs Daughter First Alternate Health Care Agent Care Teams It Risk Analyst Relationship Specialty Start Date End Date Clover Macias M.D. [address] [address] PCP - General Internal Medicine 11/23/17
--- OUTSIDE RECORDS SUMMARY | 2023-10-06 10:25 | XMS_ITS | Encounter Summary ---
Author Organization [facility] Address [address] [place] [address] Care Team Providers Care Federal Appellate Law Clerk Name Role Phone Clover Delaney M.D. Primary Care Provider [phone] Reason for Visit * Appointment Request (Routine) - Closed Specialty Diagnoses / Procedures Referred By Yenny t Referred To Contact Nephrology and Hypertension Referral ID Status Reason Start Date Expiration Date Visits Re quested Visits Authorized [id number] Closed 08/06/2023 08/05/2024 1 1 Encounter Details Date Type Department Care Team (Latest Contact Info) Description 09/16/2023 3:00 PM CDT External Outreach Division of Nephrology and Hypertension in [place], [place] [address] [place] [address] Sera Casiano M.D., Ph.D. [address] [place] [address] Hypertensive Heart And Chronic Kidney Disease Without [...] e alcohol) Maybe one drink per month [facility] Utilities Answer Date Recorded In the past 12 months has th e electric, gas, oil, or water [employer] threatened to shut off services in your [...] Answer Date Recorded PHQ-2 Score 2 05/28/2023 [facility] of Occupat ional Health [...] Sex Assigned at Male 05/13/2021 10:11 AM ACQUISITION ADVISOR Gender Identity Male 11/02/2017 7:22 PM CDT Sexual Orientation Straight 11/02/2017 7: 22 PM CDT documented as of this encounter Progress Notes * Sera Casiano M.D., Ph.D. - 09/16/2023 3:00 PM CDT PROGRESS NOTE SUBJECTIVE CHIEF COMPLAINT / REASON FOR VISIT Follow up CKD 5 [place] [facility] Outreach Visit Location: [facility] HISTORY OF PRESENT ILLNESS Philip Patel is a 77 y.o. male who is seen for follow up. He is meeting with Cardiology in few weeks for evaluation of new onset Afib. He has been started onEliquis. Patient was recently admitted to [facility] for symptomatic anemia. GI work up was unremarkable. His anemia worsened after initiation of Eliquis. He suffered several mechanical falls (no head trauma) after initiation of Eliquis causing large hematomas. He received 2 units of PRBCs and his hemoglobin improved and remained stable. His shortness of breath has resolved. Lower extremity edema is improved but remains present. No signs of uremia. He reports good urinary output. His BP at home ranges in the 180s/60s in clinic, he reports at home are in the 130s-140s/60s He feels very fatigued throughout the day, his legs are weak. OBJECTIVE 180/60 pulse 67 PHYSICAL EXAMINATION Physical Exam Lungs are clear to auscultation (he had rhonchi previously). No signs of uremia, no asterixis. Lower extremity edema 3+ DIAGNOSTICS I have reviewed available labs in detail with patient. ASSESSMENT / PLAN We discussed his CKD status, and risk of dialysis in the near future. He does not present signs of uremia, and would like to continue to close monitor and wait. We will continue with close monitoring. Low potassium diet. Rechecked potassium level is at goal BP device has been validated (nurse visit) 3. Continue to monitor BP. No changes made to his regimen, he states BP at home is better controlled. Vascular access was scheduled for August, due to recent Afib and initiation of Eliquis, we have postponed surgical intervention. He is meeting with Cardiology in the next few weeks. Continue Aranesp and Iron for anemia management, due to recent anemia, I have increase Aranesp to every 2 weeks. Return visit in September at [facility]. Jessica Hyman M.D., Ph.D. documented in this encounter Plan of Treatment Upcoming Encounters Date Type Department Care Team (Latest Contact Info) Description 10/15/2023 2:20 PM CDT Appointment Department of Laboratory Medicine in [address] [phone] Luis Carrion M.B.B.S. [address] [place] [phone] 10/15/2023 2:40 PM CDT Appointment Department of Laboratory Medicine in [address] [address] Luis Carrion M.B.B.S. [address] [place] [phone] 10/15/2023 3:30 PM CDT Ancillary Procedure Department of Cardiovascular Diseases in [address] [phone] Clover Delaney M.D. [address] [place] [phone] Discharge Disposition: Home or Self Care 12/18/2023 9:00 AM CDT Clinical Communication Virtual Review in [address] [phone] 12/21/2023 9:15 AM CDT Ancillary Procedure Department of Ophthalmology in [address] [address] Justin Bunch M.D. [address] [place] [phone] 12/21/2023 9:45 AM CDT Ancillary Procedure Department of Ophthalmology in [address] [place] [address] Justin Bunch M.D. [address] [place] [address] 12/21/2023 10:00 AM CDT Office Visit Department of Ophthalmology in [place], [place] [address] [place] [address] Justin Bunch M.D. 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 [address] [place] [address] PCP - General Internal Medicine 11/23/17 documented as of this encounter
--- OUTSIDE RECORDS SUMMARY | 2023-10-06 10:25 | XMS_ITS ---
Author Organization [facility] Address [address] [place] [address] Care Team Providers Care Medical Aide Name Role Phone Unavailable Unavailable Unavailable Surgery Details Not on file Complications Check Surgery Details section. Procedure Estimated Blood Loss Check Surgery Details section. Procedure Findings Check Surgery Details section. Procedure Specimens Taken Check Surgery Details section.
--- OUTSIDE RECORDS SUMMARY | 2023-10-06 10:25 | XMS_ITS ---
Author Organization [facility] Address [address] [place] [address] Care Team Providers Care Green Chainer Name Role Phone Clover Macias M.D. Primary Care Provider +1 [phone] Active Problems Problem Noted Date Diagnosed Date [...] Overview: Added automatically from request for surgery [id number] Cancer Colon Transverse Personal History 020 Overview: 03/2018 No evidence of metastatic disease, stable colon, diverticulosis on CT 04/09/2020 ([facility], [facility]) Repeat colonoscopy fall [address] Sewell (oncology, [place]), follow up Dr. Sewell 6-12 months with [...] of 03/2020 and determined to be benign ([facility]). 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 Treatments may have been administered in [...] Overview: Added automatically from request for surgery [id number] Hematochezia 11/09/2017 07/01/2018 Overview: Added automatically from request for surgery [id number] Diarrhea 11/09/2017 09/28/2018 Overview: S/P recurrent c diff. Tolerates 1500mg metformin per day. Cancer Colon Family History 01/19/2015 01/06/2020 Chronic Kidney Disease (CKD) , Stage 3b Glomerular Filtration Rate (GFR) 30 To 44 10/08/2009 08/28/2023
--- OUTSIDE RECORDS SUMMARY | 2023-10-06 10:25 | XMS_ITS | Encounter Summary ---
Author Organization [facility] Address [address] [place] [address] Care Team Providers Care Foundry Superintendant Name Role Phone Clover Delaney M.D. Primary Care Provider [phone] Encounter Details Date Type Department Care Team (Late st Contact Info) Description 09/11/2023 Orders Only Department of Community Internal Medicine in [place], [place] [address] [place] [address] [place] [phone] Clover Delaney M.D. [address] [place] [address] Failure Renal End Stage (HCC) (Primary Dx) Social History Tobacco Use Types Packs/Day Years Used Date Smoking Tobacco: Former Cigarettes 0 1961 - 12/26/1980 Passive Smoke Exposure: Never Smokeless Tobacco: Never Alcohol Use Standard Drinks/Week Comments Yes 0 (1 standard drink = 0.6 oz pur e alcohol) Maybe one drink per month [facility] Utilities Answer Date Recorded In the past 12 months has e electric, gas, oil, or water [employer] threatened to shut off services in your [...] PHQ-2 Score 2 05/28/2023 [facility] [place] of Occupat ional Health - Occupational Stress [...] your living situation today? I have a [facility] place to live 08/28/2023 Education Answer Date Recorded What is the highest level of school you have completed or the highest degree you have received? Professional school degree (e.g., MD, DDS, DVM, NACHO) 10/10/2020 Sex and Gender Information Value Date Recorded Sex Assigned at Male 05/13/2021 10:11 AM RN CLINICAL COORDINATOR Gender Identity Male 11/02/2017 7:22 PM CDT Sexual Orientation Straight 11/02/2017 7: 22 PM CDT documented as of this encounter Plan of Treatment Upcoming Encounters Date Type Department Care Team (Latest Contact Info) Description 10/15/2023 2:20 PM CDT Appointment Department [place] [address] Luis Carrion M.B.B.S. [address] [place] [phone] 10/15/2023 2:40 PM CDT Appointment Department of Laboratory Medicine in [address] [phone] Luis Carrion M.B.B.S. [address] [place] [phone] 10/15/2023 3:30 PM CDT Ancillary Procedure Department of Cardiovascular Diseases in [address] [phone] Clover Delaney M.D. [address] [place] [phone] Discharge Disposition: Home or Self Care 12/18/2023 9:00 AM CDT Clinical Communication Virtual Review in [address] [address] 12/21/2023 9:15 AM CDT Ancillary Procedure Department of Ophthalmology in [address] [address] Justin Bunch M.D. [address] [place] [phone] 12/21/2023 9:45 AM CDT Ancillary Procedure Department of Ophthalmology in [address] [address] Justin Bunch M.D. [address] [place] [phone] 12/21/2023 10:00 AM CDT Office Visit Department of Ophthalmology in [address] [address] Justin Bunch M.D. [address] [place] [address] Scheduled Orders Name Type Priority Associated Diagnoses Orde r Schedule CK (Creatine Kinase) Lab Routine Failure Renal End Stage (HCC) Expected: 09/11/2023, Expires: 12/11/2024 documented as of this encounter Visit Diagnoses Diagnosis Failure Renal End Stage (HCC)- Primary documented in this encounter Additional Health Concerns Assessment Noted Time PHQ-9 Depression Total Score: 4 06/06/19 23 2:04 PM RN CLINICAL COORDINATOR documented as of this encounter Care Teams Foundry Superintendant Relationship Specialty Start Date End Date Clover Delaney M.D. [address] [place] [address] PCP - General Internal Medicine 11/23/17 documented as of this encounter
--- OUTSIDE RECORDS SUMMARY | 2023-10-06 10:25 | XMS_ITS | Encounter Summary ---
Author Organization [facility] Address [address] [place] [address] Care Team Providers Care Sock Knitting Machine Operator Name Role Phone Clover Delaney M.D. Primary Care Provider [phone] Encounter Details Date Type Department Care Team (Late st Contact Info) Description 09/09/2023 Clinical Communication Division of Nephrology and Hypertension in [place], [place] [address] [place] [address] Sera Casiano M.D., Ph.D. [address] [place] [phone] Social History Tobacco Use Types Packs/Day Years [...] Answer Date Recorded PHQ-2 Score 2 05/28/2023 [facility] of Occupat ional Health - Occupational Stress [...] your living situation today? I [facility] a [facility] 08/28/2023 Education Answer Date Recorded What is the highest level of school you have completed or the highest degree you have received? Professional school degree (e.g., , DDS, DVM, NACHO) 10/10/2020 Sex and Gender Information Value Date Recorded Sex Assigned at Male 05/13/2021 10:11 AM MULTI SENSOR OPERATOR Gender Identity Male 11/02/2017 7:22 PM CDT Sexual Orientation Straight 11/02/2017 7: 22 PM CDT documented as of this encounter Miscellaneous Notes * Telephone Encounter - Sera Casiano M.D., Ph.D. - 09/09/2023 2:49 PM CDT I received a call from the infusion center regarding Mr. Patel. He [facility]p [facility] and he was found to have [...] CDT Appointment Department of Laboratory Medicine in [address] [address] Luis Carrion M.B.B.S. [address] [place] [phone] 10/15/2023 2:40 PM CDT Appointment Department of Laboratory Medicine in [address] [address] Luis Carrion M.B.B.S. [address] [place] [phone] 10/15/2023 3:30 PM CDT Ancillary Procedure Department of Cardiovascular Diseases in [address] [phone] Clover Delaney M.D. [address] [place] [phone] Discharge Disposition: Home or Self Care 12/18/2023 9:00 AM CDT Clinical Communication Virtual Review in [place], [place] [address] [place] [address] 12/21/2023 9:15 AM CDT Ancillary Procedure Department of Ophthalmology in [place], [place] [address] [place] [phone] Justin Bunch M.D. [address] [place] [phone] 12/21/2023 9:45 AM CDT Ancillary Procedure Department of Ophthalmology in [place], [place] [address] [place] [phone] Justin Bunch M.D. [address] [place] [phone] 12/21/2023 10:00 AM CDT Office Visit Department of Ophthalmology in [place], [place] [address] [place] [phone] Justin Bunch M.D. [address] [place] [phone] documented as of this encounter Visit Diagnoses Not on filedocumented in this encounter Additional Health Concerns Assessment Noted Time PHQ-9 Depression Total Score: 4 06/06/19 23 2:04 PM MULTI SENSOR OPERATOR documented as of this encounter Care Teams Sock Knitting Machine Operator Relationship Specialty Start Date End Date Clover Delaney M.D. [address] [place] [phone] PCP - General Internal Medicine 11/23/17 documented as of this encounter
--- OUTSIDE RECORDS SUMMARY | 2023-10-06 10:26 | XMS_ITS | Encounter Summary ---
Author Organization [facility] Address [address] [place] [address] Care Team Providers Care Director Of Cloud Services Name Role Phone Clover Delaney M.D. Primary Care Provider [phone] Reason for Visit * Reason Comments infusion orders Encounter Details Date Type Department Care Team (Latest Contact Info) Description 08/25/2023 Clinical Communication Division of Nephrology and Hypertension in [place], [place] [address] [place] [address] Sera Casiano M.D., Ph.D. [address] [place] [address] infusion orders Social History Tobacco Use Types Packs/Day Years Used Date Smoking Tobacco: Former Cigarettes 0 1961 - 12/26/1980 Passive Smoke Exposure: Never Smokeless Tobacco: Never Alcohol Use Standard Drinks/Week Comments Yes 0 (1 standard drink = 0.6 oz pur e alcohol) Maybe one drink per month [facility] Utilities Answer Date Recorded In the past 12 months has e Inventalator, gas, oil, or water company threatened to [...] Answer Date Recorded PHQ-2 Score 2 05/28/2023 [facility] [place] of Occupat ional Health - Occupational Stress [...] your living situation today? I have a [facility] place to live 08/28/2023 Education Answer Date Recorded What is the highest level of school you have completed or the highest degree you have received? Professional school degree (e.g., MD, DDS, DVM, NACHO) 10/10/2020 Sex and Gender Information Value Date Recorded Sex Assigned at Male 05/13/2021 10:11 AM AESTHETICS INSTRUCTOR Gender Identity Male 11/02/2017 7:22 PM CDT Sexual Orientation Straight 11/02/2017 7: 22 PM CDT documented as of this encounter Plan of Treatment Upcoming Encounters Date Type Department Care Team (Latest Contact Info) Description 10/15/2023 2:20 PM CDT Appointment Department of Laboratory Medicine in [address] [phone] Luis Carrion M.B.B.S. [address] [place] [phone] 10/15/2023 2:40 PM CDT Appointment Department of Laboratory Medicine in [address] [phone] Luis Carrion M.B.B.S. [address] [place] [phone] 10/15/2023 3:30 PM CDT Ancillary Procedure Department of Cardiovascular Diseases in [address] [phone] Clover Delaney M.D. [address] [place] [phone] Discharge Disposition: Home or Self Care 12/18/2023 9:00 AM CDT Clinical Communication Virtual Review in [address] [phone] 12/21/2023 9:15 AM CDT Ancillary Procedure Department of Ophthalmology in [address] [address] Justin Bunch M.D. [address] [place] [phone] 12/21/2023 9:45 AM CDT Ancillary Procedure Department of Ophthalmology in [address] [address] Justin Bunch M.D. [address] [place] [phone] 12/21/2023 10:00 AM CDT Office Visit Department of Ophthalmology in [address] [phone] Justin Bunch M.D. [address] [place] [address] documented as of this encounter Visit Diagnoses Not on filedocumented in this encounter Additional Health Concerns Assessment Noted Time PHQ-9 Depression Total Score: 4 06/06/19 23 2:04 PM AESTHETICS INSTRUCTOR documented as of this encounter Care Teams Director Of Cloud Services Relationship Specialty Start Date End Date Clover Delaney M.D. [address] [place] [phone] PCP - General Internal Medicine 11/23/17 documented as of this encounter
--- OUTSIDE RECORDS SUMMARY | 2023-10-06 10:26 | XMS_ITS | Encounter Summary ---
Author Organization [facility] Address [address] [place] [address] Care Team Providers Care Hand Riveter Name Role Phone Clover Delaney M.D. Primary Care Provider [phone] Reason for Visit * Reason Comments Med Refill Encounter Details Date Type Department Care Team (Late st Contact Info) Description 08/21/2023 Refill Department of Community Internal Medicine in [address] [place] [address] Clover Delaney M.D. [address] [place] [address] Med Refill Social History Tobacco [...] 2 05/28/2023 [facility] [...] Sex Assigned at Male 05/13/2021 10:11 AM CONDENSER OPERATOR Gender Identity Male 11/02/2017 7:22 PM CDT Sexual Orientation Straight 11/02/2017 7: 22 PM CDT documented as of this encounter Miscellaneous Notes * Telephone Encounter - Duellman, Glendy M - 08/21/2023 12:02 PM CDT RX for 8 each was escribed 08/18/23 to [facility] in [place] documented in this encounter Plan of Treatment Upcoming Encounters Date Type Department Care Team (Latest Contact Info) Description 10/15/2023 2:20 PM CDT Appointment Department of Laboratory Medicine in [address] [phone] Luis Carrion M.B.B.S. [address] [place] [phone] 10/15/2023 2:40 PM CDT Appointment Department of Laboratory Medicine in [address] [phone] Luis Carrion M.B.B.S. [address] [place] [phone] 10/15/2023 3:30 PM CDT Ancillary Procedure Department of Cardiovascular Diseases in [address] [phone] Clover Delaney M.D. [address] [place] [phone] Discharge Disposition: Home or Self Care 12/18/2023 9:00 AM CDT Clinical Communication Virtual Review in [address] [phone] 12/21/2023 9:15 AM CDT Ancillary Procedure Department of Ophthalmology in [address] [address] Justin Bunch M.D. [address] [place] [phone] 12/21/2023 9:45 AM CDT Ancillary Procedure Department of Ophthalmology in [place], [place] [address] [place] [address] Justin Bunch M.D. [address] [place] [phone] 12/21/2023 10:00 AM CDT Office Visit Department of Ophthalmology in [place], [place] [address] [place] [address] Justin Bunch M.D. 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 [address] [place] [phone] PCP - General Internal Medicine 11/23/17 documented as of this encounter
--- OUTSIDE RECORDS SUMMARY | 2023-10-06 10:26 | XMS_ITS | Encounter Summary ---
Author Organization [facility] Address [address] [place] [address] Care Team Providers Care Rug Setter [place]minster Name Role Phone Clover Macias M.D. 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 [address] [place] [address] [facility] Referral ID Status Reason Start Date Expiration Date Visits Re quested Visits Authorized [id number] Closed 09/01/2023 03/02/2025 1 1 * Outpatient (Routine) - Authorized Specialty Diagnoses / Procedures Referred By Yenny hunter Referred To Contact Diagnoses Atrial Fibrillation Unspecified (HCC) Procedures ECG 12 Lead Clover Macias M.D. [address] [place] [address] [facility] Region Referral ID Status Reason Start Date Expiration Date V isits Requested Visits Authorized [id number] Authorized 08/28/2023 08/27/2024 1 1 Reason for Visit * Reason Comments Weakness - Generalized Encounter Details Date Type Department Care Team (Latest Contact Info) Description 08/28/2023 3:30 PM CDT Office Visit Department of [facility] in [address] [place] [phone] Clover Macias M.D. [address] [place] [address] Follow Up Exam (Primary Dx); [...] per month [facility] Utilities Answer Date Recorded In the past 12 months has [facility] [employer], [employer], oil, or water [email or web address] threatened to shut off services in your [...] Answer Date Recorded PHQ-2 Score 2 05/28/2023 [facility] - Occupational Stress [...] your living situation today? I have a [facility] place to live 08/28/2023 Education Answer Date Recorded What is the highest level of school you have completed or the highest degree you have received? 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 - 08/28/2023 3:30 PM CDT SUBJECTIVE CHIEF COMPLAINT / REASON FOR VISIT Philip Patel is a 77 y.o. male who presents for evaluation of Weakness - Generalized. HISTORY OF PRESENT ILLNESS Patient is here for follow up of chronic conditions and ER visit to [place] 08/15 and was diagnosed with atrial fibrillation [...] capsule (10 mg total) by mouth daily. [employer] Brionna 2 Lueders 1 each (1 Device total) as directed. [employer] Brionna 2 Sensor kit APPLY SENSOR EVERY 14 DAYS. irbesartan (AVAPRO) 75 mg tablet Take 1 tablet (75 mg total) by mouth daily. iron,carbonyl-vitamin C (VITRON-C) 65 mg iron- [address] tablet Take 65 mg of iron by mouth daily. Do not crush or chew. loperamide (IMODIUM A-D) 2 mg tablet Take 2 mg by mouth as needed. [facility] CPAP Supplies See Instructions, CPAP machine, mask 1 ea x 4 refills, headgear 1 ea x 2 refills, tubing 1 ea x 4 refills, filters 2 ea per month, tub 1 ea x 2 refills, mask seal 1 ea x 2 refills DX G47.33, length of need 99, 1 each, 0 Refill(s) [facility] Head Gear for CPAP Machine See Instructions, fax to patient at [phone], 1 each MULTIVITAMIN ORAL Daily Multiple Vitamins See Instructions, Take 1 tablet by mouth daily. ONETOUCH DELICA LANCETS 33 gauge [facility] OneTouch Ultra Test Strips Use to test [...] 490 ms QTC Interval 414 ms R [place] -12 degrees T Wave [place] 95 degrees *Note: Due to a large [...] controlled. Continue titrating insulin. Will try to greens picker Brionna sensors today. #6 Anemia Iron Deficiency [...] 04/09/2020 ([facility] CT, [facility] records) Future colonoscopies: clear [...] Appointment Department of Laboratory Medicine in [address] [phone] Luis Carrion M.B.B.S. [address] [place] [phone] 10/15/2023 2:40 PM CDT Appointment Department of Laboratory Medicine in [address] [phone] Luis Carrion M.B.BJosé LuisS. [address] [place] [phone] 10/15/2023 3:30 PM CDT Ancillary Procedure Department of Cardiovascular Diseases in [address] [phone] Clover Macias M.D. [address] [place] [phone] Discharge Disposition: Home or Self Care 12/18/2023 9:00 AM CDT Clinical Communication Virtual Review in [place], [place] [address] [place] [address] 12/21/2023 9:15 AM CDT Ancillary Procedure Department of Ophthalmology in [place], [place] [address] [place] [phone] Justin Bunch M.D. [address] [place] [phone] 12/21/2023 9:45 AM CDT Ancillary Procedure Department of Ophthalmology in [place], [place] [address] [place] [phone] Justin Bunch M.D. [address] [place] [phone] 12/21/2023 10:00 AM CDT Office Visit Department of Ophthalmology in [place], [place] [address] [place] [phone] Justin Bunch M.D. [address] [place] [phone] Scheduled Referrals Name Type Priority Associated Diagnoses [...] MUSE QTC Interval 414 ms MUSE R [place] -12 degrees MUSE T Wave [place] 95 degrees MUSE 08/28/2023 4:11 PM CDT [...] Total Score: 4 06/06/19 23 2:04 PM RETIREMENT SALES CONSULTANT documented as of this encounter Care Teams Rug Setter Axminster Relationship Specialty Start Date End Date Clover Macias M.D. [address] [place] [phone] PCP - General Internal Medicine 11/23/17 documented as of this encounter
--- OUTSIDE RECORDS SUMMARY | 2023-10-06 10:26 | XMS_ITS | Encounter Summary ---
Author Organization [facility] Address [address] [place] [address] Care Team Providers Care Metal Dresser Name Role Phone Clover Delaney M.D. Primary Care Provider [phone] Reason for Visit * Reason Comments Med Refill Encounter Details Date Type Department Care Team (Late st Contact Info) Description 09/05/2023 Refill Department of Ophthalmology in [place], [place] [address] [place] [phone] Jon Juarez M.D. [address] [place] [phone] Med Refill Social History Tobacco Use Types Packs/Day Years Used Date Smoking Tobacco: Former Cigarettes 0 1961 - 12/26/1980 Passive Smoke Exposure: Never Smokeless Tobacco: Never Alcohol Use Standard Drinks/Week Comments Yes 0 (1 standard drink = 0.6 oz pur e alcohol) Maybe one drink per month [facility] Utilities Answer Date Recorded In the [...] Answer Date Recorded PHQ-2 Score 2 05/28/2023 [facility] of Occupat ional Health - Occupational Stress [...] Sex Assigned at Male 05/13/2021 10:11 AM VALVE INSPECTOR Gender Identity Male 11/02/2017 7:22 PM CDT Sexual Orientation Straight 11/02/2017 7: 22 PM CDT documented as of this encounter Plan of Treatment Upcoming Encounters Date Type Department Care Team (Latest Contact Info) Description 10/15/2023 2:20 PM CDT Appointment Department of Laboratory Medicine in [address] [phone] Luis Carrion M.B.B.S. [address] [place] [phone] 10/15/2023 2:40 PM CDT Appointment Department of Laboratory Medicine in [address] [phone] Luis Carrion M.B.B.S. [address] [place] [phone] 10/15/2023 3:30 PM CDT Ancillary Procedure Department of Cardiovascular Diseases in [address] [phone] Clover Delaney M.D. [address] [place] [phone] Discharge Disposition: Home or Self Care 12/18/2023 9:00 AM CDT Clinical Communication Virtual Review in [address] [phone] 12/21/2023 9:15 AM CDT Ancillary Procedure Department of Ophthalmology in [address] [phone] Justin Bunch M.D. [address] [place] [phone] 12/21/2023 9:45 AM CDT Ancillary Procedure Department of Ophthalmology in [address] [phone] Justin Bunch M.D. [address] [place] [phone] 12/21/2023 10:00 AM CDT Office Visit Department of Ophthalmology in [address] [phone] Justin Bunch M.D. [address] [place] [address] documented as of this encounter Visit Diagnoses Not on filedocumented in this encounter Additional Health Concerns Assessment Noted Time PHQ-9 Depression Total Score: 4 06/06/19 23 2:04 PM VALVE INSPECTOR documented as of this encounter Care Teams Metal Dresser Relationship Specialty Start Date End Date Clover Delaney M.D. [address] [place] [phone] PCP - General Internal Medicine 11/23/17 documented as of this encounter
--- OUTSIDE RECORDS SUMMARY | 2023-10-06 10:26 | XMS_ITS | Encounter Summary ---
Author Organization [facility] Address [address] [place] [address] Care Team Providers Care Junior Buyer Name Role Phone Clover Delaney M.D. Primary Care Provider [phone] Reason for Visit * Reason Comments Med Refill Encounter Details Date Type Department Care Team (Late st Contact Info) Description 08/27/2023 Refill Division of Nephrology and Hypertension in [place], [place] [address] [place] [phone] Mónica Portillo, TRIXIE, C.N.P., M.S. [address] [place] [phone] Med Refill Social History Tobacco Use Types Packs/Day Years Used Date Smoking Tobacco: Former Cigarettes 0 1961 - 12/26/1980 Passive Smoke Exposure: Never Smokeless Tobacco: Never Alcohol Use Standard Drinks/Week Comments Yes 0 (1 standard drink = 0.6 oz pur e alcohol) Maybe one drink per month [facility] Utilities Answer Date Recorded In the past 12 months has e [employer], gas, oil, or water [employer] threatened to shut off services in your [...] [facility] [place] of Occupat ional Health - Occupational [...] your living situation today? I have a [facility] place to live 08/28/2023 Education Answer Date Recorded What is the highest level of school you have completed or the highest degree you have received? Professional school degree (e.g., MD, DDS, DVM, NACHO) 10/10/2020 Sex and Gender Information Value Date Recorded Sex Assigned at Male 05/13/2021 10:11 AM ACTUARIAL CLERK Gender Identity Male 11/02/2017 7:22 PM CDT Sexual Orientation Straight 11/02/2017 7: 22 PM CDT documented as of this encounter Plan of Treatment Upcoming Encounters Date Type Department Care Team (Latest Contact Info) Description 10/15/2023 2:20 PM CDT Appointment Department of Laboratory Medicine in [address] [phone] Luis Carrion M.B.B.S. [address] [place] [phone] 10/15/2023 2:40 PM CDT Appointment Department of Laboratory Medicine in [address] [phone] Luis Carrion M.B.B.S. [address] [place] [phone] 10/15/2023 3:30 PM CDT Ancillary Procedure Department of Cardiovascular Diseases in [address] [phone] Clover Delaney M.D. [address] [place] [phone] Discharge Disposition: Home or Self Care 12/18/2023 9:00 AM CDT Clinical Communication Virtual Review in [address] [phone] 12/21/2023 9:15 AM CDT Ancillary Procedure Department of Ophthalmology in [address] [phone] Justin Bunch M.D. [address] [place] [phone] 12/21/2023 9:45 AM CDT Ancillary Procedure Department of Ophthalmology in [address] [phone] Justin Bunch M.D. [address] [place] [phone] 12/21/2023 10:00 AM CDT Office Visit Department of Ophthalmology in [address] [phone] Justin Bunch M.D. [address] [place] [phone] documented as of this encounter Visit Diagnoses Not on filedocumented in this encounter Additional Health Concerns Assessment Noted Time PHQ-9 Depression Total Score: 4 06/06/19 23 2:04 PM ACTUARIAL CLERK documented as of this encounter Care Teams Junior Buyer Relationship Specialty Start Date End Date Clover Delaney M.D. [address] [place] [phone] PCP - General Internal Medicine 11/23/17 documented as of this encounter
--- OUTSIDE RECORDS SUMMARY | 2023-10-06 10:26 | XMS_ITS | Encounter Summary ---
Author Organization [facility] Address [address] [place] [address] Care Team Providers Care Tube Drawing Supervisor Name Role Phone Clover Delaney M.D. Primary Care Provider [phone] Encounter Details Date Type Department Care Team (Late st Contact Info) Description 09/01/2023 Clinical Communication Department of Community Internal Medicine in [place], [place] [address] [place] [address] [place] [phone] Clover Delaney M.D. [address] [place] [phone] Social History Tobacco Use Types Packs/Day Years Used Date Smoking Tobacco: Former Cigarettes 0 1961 - 12/26/1980 Passive Smoke Exposure: Never Smokeless Tobacco: Never Alcohol Use Standard Drinks/Week Comments Yes 0 (1 standard drink = 0.6 oz pur e alcohol) Maybe one drink per month [facility] Utilities Answer Date Recorded In the past 12 months has e [employer], gas, oil, or water [employer] threatened to shut off services in your [...] do you attend chur or evangelical services? Never 07/28/2022 Do you belong to [...] Answer Date Recorded PHQ-2 Score 2 05/28/2023 [facility] [place] of Occupat ional Health - Occupational Stress [...] your living situation today? I have a [facility] place to live 08/28/2023 Education Answer Date Recorded What is the highest level of school you have completed or the highest degree you have received? Professional school degree (e.g., MD, DDS, DVM, NACHO) 10/10/2020 Sex and Gender Information Value Date Recorded Sex Assigned at Male 05/13/2021 10:11 AM WINE BLENDER Gender Identity Male 11/02/2017 7:22 PM CDT Sexual Orientation Straight 11/02/2017 7: 22 PM CDT documented as of this encounter Plan of Treatment Upcoming Encounters Date Type Department Care Team (Latest Contact Info) Description 10/15/2023 2:20 PM CDT Appointment Department of Laboratory Medicine in [address] [phone] Luis Carrion M.B.B.S. [address] [place] [phone] 10/15/2023 2:40 PM CDT Appointment Department of Laboratory Medicine in [address] [phone] Luis Carrion M.B.B.S. [address] [place] [phone] 10/15/2023 3:30 PM CDT Ancillary Procedure Department of Cardiovascular Diseases in [address] [phone] Clover Delaney M.D. [address] [place] [phone] Discharge Disposition: Home or Self Care 12/18/2023 9:00 AM CDT Clinical Communication Virtual Review in [address] [phone] 12/21/2023 9:15 AM CDT Ancillary Procedure Department of Ophthalmology in [address] [phone] Justin Bunch M.D. [address] [place] [phone] 12/21/2023 9:45 AM CDT Ancillary Procedure Department of Ophthalmology in [address] [phone] Justin Bunch M.D. [address] [place] [phone] 12/21/2023 10:00 AM CDT Office Visit Department of Ophthalmology in [address] [phone] Justin Bunch M.D. [address] [place] [address] documented as of this encounter Visit Diagnoses Not on filedocumented in this encounter Additional Health Concerns Assessment Noted Time PHQ-9 Depression Total Score: 4 06/06/19 23 2:04 PM WINE BLENDER documented as of this encounter Care Teams Tube Drawing Supervisor Relationship Specialty Start Date End Date Clover Delaney M.D. [address] [place] [address] PCP - General Internal Medicine 11/23/17 documented as of this encounter
--- OUTSIDE RECORDS SUMMARY | 2023-10-06 10:26 | XMS_ITS | Encounter Summary ---
Author Organization [facility] Address [address] [place] [address] Care Team Providers Care Dump Grader Name Role Phone Clover Delaney M.D. Primary Care Provider [phone] Reason for Referral * Outpatient (Routine) - Closed Specialty Diagnoses / Procedures Referred By Yenny hunter Referred To Contact Diagnoses Atrial Fibrillation Unspecified (HCC) Hypertensive Chronic Kidney Disease With Stage 5 Chronic Kidney Disease Or End Stage Renal Disease, Chronic Kidney Disease Stage 5 (HCC) Procedures DX Chest AP or PA and Lateral 2 Views Clover Delaney M.D. [address] [place] [address] [facility] Region Referral ID Status Reason Start Date Expiration Date Visits Re quested Visits Authorized [id number] Closed 08/19/2023 08/18/2024 1 1 Reason for Visit * Outpatient (Routine) - Closed Specialty Diagnoses / Procedures Referred By Yenny hunter Referred To Contact Diagnoses Atrial Fibrillation Unspecified (HCC) Hypertensive Chronic Kidney Disease With Stage 5 Chronic Kidney Disease Or End Stage Renal Disease, Chronic Kidney Disease Stage 5 (HCC) Procedures DX Chest AP or PA and Lateral 2 Views Clover Delaney M.D. [address] [place] [address] [facility] Region Referral ID Status Reason Start Date Expiration Date Visits Re quested Visits Authorized [id number] Closed 08/19/2023 08/18/2024 1 1 Encounter Details Date Type Department Care Team (Latest Contact Info) Description 08/20/2023 3:08 PM CDT - 08/20/2023 11:59 PM CDT Hospital Encounter Department of Radiology in [address] [place] [phone] Clover Delaney M.D. [address] [place] [address] Atrial Fibrillation Unspecified (HCC); Hypertensive [...] Sex Assigned at Male 05/13/2021 10:11 AM AUTO SLIP COVER INSTALLER Gender Identity Male 11/02/2017 7:22 PM [...] by mouth as needed. miscellaneous medical supply [facility] CPAP Supplies See Instructions, CPAP machine, mask 1 ea x 4 refills, headgear 1 ea x 2 refills, tubing 1 ea x 4 refills, filters 2 ea per month, tub 1 ea x 2 refills, mask seal 1 ea x 2 refills DX G47.33, length of need 99, 1 each, 0 Refill(s) 10/20/2016 [facility] Head Gear for CPAP Machine See Instructions, fax to patient at [phone], 1 each 01/17/2014 MULTIVITAMIN ORAL Daily Multiple Vitamins See Instructions, Take 1 tablet by mouth daily. 07/23/2013 ONETOUCH DELICA LANCETS 33 gauge [facility] 3 08/02/2018 OneTouch Ultra Test StripsIndications:Diabet es Mellitus Type 2 (HCC) Use to test once daily. 100 strip 3 06/03/2023 prednisoLONE acetate (PRED FORTE) 1 % ophthalmic suspension Instill 1 drop in left eye once daily 5 mL 11/06/2022 prednisoLONE acetate (PRED FORTE) 1 % ophthalmic suspension place 1 drop into the left eye once daily. 5 mL 11/06/2022 sevelamer carbonate (RENVELA) 800 mg tablet Take [...] total) daily. 90 tablet 3 01/06/2020 10/01/2023 carvediloL (COREG) 12.5 mg tablet TAKE ONE [...] eye once daily. 5 mL 02/05/2023 09/07/2023 predniSONE (DELTASONE) 5 mg tablet TAKE ONE TABLET BY MOUTH ONE TIME DAILY 90 tablet 3 10/23/2022 09/25/2023 torsemide (DEMADEX) 20 mg tablet Take 3 tablets (60 mg total) by mouth daily. 270 tablet 3 08/05/2023 08/28/2023 documented as of this encounter Plan of Treatment Upcoming Encounters Date Type Department Care Team (Latest Contact Info) Description 10/15/2023 2:20 PM CDT Appointment Department of Laboratory Medicine in [address] [phone] Luis Carrion M.B.B.S. [address] [place] [phone] 10/15/2023 2:40 PM CDT Appointment Department of Laboratory Medicine in [address] [phone] Luis Carrion M.B.B.S. [address] [place] [phone] 10/15/2023 3:30 PM CDT Ancillary Procedure Department of Cardiovascular Diseases in [address] [phone] Clover Delaney M.D. [address] [place] [phone] Discharge Disposition: Home or Self Care 12/18/2023 9:00 AM CDT Clinical Communication Virtual Review in [place], [place] 200 [place] [address] 12/21/2023 9:15 AM CDT Ancillary Procedure Department of Ophthalmology in [place], [place] [address] [place] [phone] Justin Bunch M.D. [address] [place] [phone] 12/21/2023 9:45 AM CDT Ancillary Procedure Department of Ophthalmology in [address] [phone] Justin Bunch M.D. [address] [place] [address] 12/21/2023 10:00 AM CDT Office Visit Department of Ophthalmology in [place], [place] [address] [place] [address] Justin Bunch M.D. [address] [place] [address] documented as of this encounter Procedures Procedure [...] Total Score: 4 06/06/19 23 2:04 PM AUTO SLIP COVER INSTALLER documented as of this encounter Care Teams Dump Grader Relationship Specialty Start Date End Date Clover Delaney M.D. [address] [place] [address] PCP - General Internal Medicine 11/23/17 documented as of this encounter
--- OUTSIDE RECORDS SUMMARY | 2023-10-06 10:26 | XMS_ITS | Encounter Summary ---
Author Organization [facility] Address [address] [place] [address] Care Team Providers Care Health Policy Analyst Name Role Phone Clover Delaney M.D. Primary Care Provider [phone] Reason for Visit * Reason Comments Med Refill Encounter Details Date Type Department Care Team (Late st Contact Info) Description 08/28/2023 Refill Department of Community Internal Medicine in [address] [place] [address] Clover Delaney M.D. [address] [place] [address] Med Refill Social History Tobacco Use Types Packs/Day Years Used Date Smoking Tobacco: Former Cigarettes 0 1961 - 12/26/1980 Passive Smoke Exposure: Never Smokeless Tobacco: Never Alcohol Use Standard Drinks/Week Comments Yes 0 (1 standard drink = 0.6 oz pur e alcohol) Maybe one drink per month [facility] Utilities Answer Date Recorded In the past 12 months has e electric, gas, oil, or water [place] threatened to shut off services in your [...] Answer Date Recorded PHQ-2 Score 2 05/28/2023 [facility] - Occupational [...] your living situation today? I have a [facility] place to live 08/28/2023 Education Answer Date Recorded What is the highest level of school you have completed or the highest degree you have received? Professional school degree (e.g., MD, DDS, DVM, NACHO) 10/10/2020 Sex and Gender Information Value Date Recorded Sex Assigned at Male 05/13/2021 10:11 AM INSTRUCTIONAL AIDE Gender Identity Male 11/02/2017 7:22 PM [...] patient. Per EMR, Rx was faxed to [facility] on 08-18-23 for 8 sensors. Primary Provider: Clover Delaney M.D. Requested Prescriptions Pending Prescriptions Disp Refills flash glucose sensor (FreeStyle Brionna 2 Sensor) kit 8 each 0 documented in this encounter Plan of Treatment Upcoming Encounters Date Type Department Care Team (Latest Contact Info) Description 10/15/2023 2:20 PM CDT Appointment Department of Laboratory Medicine in [address] [phone] Luis Carrion M.B.B.S. [address] [place] [phone] 10/15/2023 2:40 PM CDT Appointment Department of Laboratory Medicine in [address] [phone] Luis Carrion M.B.B.S. [address] [place] [phone] 10/15/2023 3:30 PM CDT Ancillary Procedure Department of Cardiovascular Diseases in [address] [phone] Clover Delaney M.D. [address] [place] [address] Discharge Disposition: Home or Self Care 12/18/2023 9:00 AM CDT Clinical Communication Virtual Review in [address] [address] 12/21/2023 9:15 AM CDT Ancillary Procedure Department of Ophthalmology in [address] [address] Justin Bunch M.D. [address] [place] [phone] 12/21/2023 9:45 AM CDT Ancillary Procedure Department of Ophthalmology in [place], [place] [address] [place] [address] Justin Bunch M.D. [address] [place] [phone] 12/21/2023 10:00 AM CDT Office Visit Department of Ophthalmology in [place], [place] [address] [place] [phone] Justin Bunch M.D. 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 [address] [place] [address] PCP - General Internal Medicine 11/23/17 documented as of this encounter
--- OUTSIDE RECORDS SUMMARY | 2023-10-06 10:26 | XMS_ITS | Encounter Summary ---
Author Organization [facility] Address [address] [place] [address] Care Team Providers Care Plate Painter Apprentice Name Role Phone Clover Delaney M.D. 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 [address] [place] [address] [facility] Region Referral ID Status Reason Start Date Expiration Date Visits Re quested Visits Authorized [id number] Closed 08/20/2023 02/18/2025 1 1 Encounter Details Date Type Department Care Team (Latest Contact Info) Description 09/08/2023 2:00 PM CDT Virtual Visit Department of Family Medicine, [facility], in [address] [phone] Clover Delaney M.D. [address] [place] [address] Barbara iDane, Pharm.D., R.Ph., [facility] [address] [place] [address] Diabetes Mellitus Type 2 With [...] e alcohol) Maybe one drink per month [facility] Utilities Answer Date Recorded In the past 12 months has e [facility], gas, oil, or water [employer] threatened to shut off services in your [...] Answer Date Recorded PHQ-2 Score 2 05/28/2023 [facility] - Occupational Stress Questionnaire Answer [...] money to buy more. Never true 08/28/19 Within the past 12 months, t he [...] Assigned at Male 05/13/2021 10:11 AM CLIENT DIRECTOR Gender Identity Male 11/02/2017 7:22 PM CDT Sexual Orientation Straight 11/02/2017 7: 22 PM CDT documented as of this encounter Consult Notes * Barbara Diane, Wyatt.D., R.Ph., [facility] - 09/08/2023 2:00 PM CDT Medication Management Services ([facility]) SUBJECTIVE Philip Gu is a 77 y.o. male, who is contacted via phone by [facility] Pharmacist to thepatient in patient's home in [place] for comprehensive medication review. As the provider for this telehealth service, I attest that I introduced myself to the patient/patient artist representative, provided my credentials, disclosed my location, and determined that, based on a review of the patient's chart and/or a discussion with members of the patient's treatment team, a telehealth visit is an appropriate and effective means of providing this service. It was also mutually agreed that this visit is appropriate for telehealth. He was referred by Clover Delaney M.D. and management by pharmacist is not outlined in klig-mg-fiya/video encounter at this time. Patient was at the visit with patient's significant other Sayra . The patient does not appear cognitively impaired at this visit. Patient???s purpose of visit today is review medications. Diabetes: Relevant diabetes history includes since greater than 10 years Patient does not report notable symptoms of hyperglycemia. Patient has experienced hypoglycemic events not often, better without glipizide. Patient is able toidentify symptoms of hypoglycemia. Patient reports the following notable hypoglycemic symptoms: dizziness and tremors. Patient does have a plan to treat hypoglycemia including glucose tablets.met with dietitian Patient does not follow an exercise regimen. Glucose monitoring: Kumbuya Brionna 2 via reader with ability to upload at home. Glucose readings: Not available today. Patient reports A1C has improved. Fasting blood glucose this morning 170, patient reports he follows with endocrine service to managediabetes. Hypertension: Patient does check their blood pressures routinely with reported values of 127/63. Patient does not report signs or symptoms of hypotension. Patient does not report signs and symptoms of hypertension. Patient does follow a sodium restriction. Lipid Management: Patient has met with a slate cutter. Patient does not follow an exercise regimen. Patient does not report any muscle related symptoms., however is uncertain about this as patient has been very weak especially in the mornings and it is hard to hold himself up with his legs. Depression/Anxiety: Patient reports symptoms of depression and anxiety daily and weekly. Patient reports current medication therapy is managing depression symptoms and is managing anxiety symptoms. Patient is not currently working with a therapist and is not interested in therapy. Patient denies suicidal ideation. Atrial Fibrillation: Patient reports atrial fibrillation as new onset. Patient does not report signs or symptoms of atrial fibrillation. Medication Adherence Medication reconciliation: reviewed prescription medications, crwn-qhk-[id number] medications, and vitamin and supplements with patient from electronic health record (EHR) medication list Adherence strategies: pill box twice daily managed by himself once weekly Medication timing: morning and evening Medication convenience: Sodium bicarb tablet seems hard to swallow, let patient know he can crush this medication if needed Reported missed doses: less than once per month The following portions of the patient's history were reviewed and updated as appropriate: allergies, current medications, family history, medical history, social history, surgical history and problemlist. Pertinent patient lifestyle habits, preferences and beliefs, health and functional goals, health literacy, cultural factors and socioeconomic factors were assessed at this appointment with no concerns noted. OBJECTIVE Wt Readings from Last 3 Encounters: 08/28/23 (!) 148 kg 07/10/23 (!) 157 kg 06/29/23 (!) 157 kg BMI Readings from Last 3 Encounters: 08/28/23 47.33 kg/m?? 07/10/23 50.17 kg/m?? 06/29/23 50.14 kg/m?? Pulse Readings from Last 3 Encounters: 08/28/23 (!) 52 06/15/23 (!) 52 05/29/23 69 BP Readings from Last 3 Encounters: 08/28/23 112/64 07/10/23 (!) 204/78 06/15/23 (!) 189/70 Albumin/Creatinine Ratio Date Value Ref Range Status 07/06/2023 3347 (H) <17 mg/g Final Lab Results Component Value Date CHOL 171 11/07/2021 CHOL 181 01/30/2021 CHOL 171 04/10/2020 Lab Results Component Value Date HDL 37 (L) 11/07/2021 HDL 36 (L) 01/30/2021 HDL 42 04/10/2020 Lab Results Component Value Date LDLCALC 114 11/07/2021 LDLCALC 112 01/30/2021 LDLCALC 105 04/10/2020 Lab Results Component Value Date TRIG 112 11/07/2021 TRIG 166 (H) 01/30/2021 TRIG 121 04/10/2020 Lab Results Component Value Date TTLCHOLHDLRT 5 09/11/2015 TTLCHOLHDLRT 5 01/11/2015 TTLCHOLHDLRT 5 06/01/2014 Lab Results Component Value Date TSH 2.7 08/20/2023 Lab Results Component Value Date NA 135 08/20/2023 KPLASMA 4.0 08/20/2023 CL 95 (L) 08/20/2023 BICARB 27 08/20/2023 CREATININE 4.69 (H) 08/20/2023 EGFR <15 (L) 08/20/2023 EGFRNONBLKAA 21 (L) 11/07/2021 EGFRBLKAA 24 (L) 11/07/2021 BUN 72 (H) 08/20/2023 ANIONGAP 13 08/20/2023 GLUCOSE 344 (H) 08/20/2023 CALCIUM 8.3 (L) 08/20/2023 Lab Results Component Value Date ALT 14 08/20/2023 AST 15 08/20/2023 ALKPHOS 89 08/20/2023 BILITOT 0.6 08/20/2023 Lab Results Component Value Date HGBA1C 6.8 (H) 03/30/2023 HGBA1C 8.3 (H) 06/06/2022 HGBA1C 7.5 (H) 03/31/2022 Estimated Creatinine Clearance: 19.2 mL/min (A) (by C-G formula based on SCr of 4.69 mg/dL (H)). The 10-year ASCVD risk score (Nikole CONTRERAS, et al., 2019) is: 45.6% Diabetes Optimal Care Composite Score: 5 Values used to calculate this score: Points Metrics 1 Diabetes Optimal Care Composite - HbA1c: 1 1 Diabetes Optimal Care Composite - Blood Pressure: 1 1 Diabetes Optimal Care Composite - Aspirin/Antithrombotic: 1 1 Diabetes Optimal Care Composite - LDL/Statin Use: 1 1 Diabetes Optimal Care Composite - Smoking Status : 1 Topic Date Due Zoster Vaccines (2 of 2) 08/02/2021 COVID-19 Vaccine ( season) 2023 Hepatitis B Vaccines (3 of 3 - Risk 3-dose series) 07/24/2023 The 10-year ASCVD risk score (Nikole CONTRERAS, et al., 2019) is: 45.6% Values used to calculate the score: Age: 77 years Sex: Male Is Non- : No Diabetic: Yes Tobacco smoker: No Systolic Blood Pressure: 112 mmHg Is BP treated: Yes HDL Cholesterol: 37 mg/dL Total Cholesterol: 171 mg/dL ASSESSMENT / PLAN Assessment: Pharmacotherapy was reviewed today with a patient-centered approach for indication, effectiveness, safety and convenience, taking into account pertinent health and functional status, risk factors, health data, cultural factors, health literacy and access to medications. Medication list discrepancies: notable discrepancies: added Lantus to med list Medication adherence: No concerns Renal dosing: no concerns Hepatic dosing: no concerns Drug-drug interactions of clinical significance: fluoxetine and carvedilol notes a moderate drug interaction involving CYP2D6 Inhibitors (Strong) may increase the serum concentration of Carvedilol. Monitor patients closely for signs and symptoms of excessive response to carvedilol (eg, hypotension,bradycardia, orthostasis) when used together with strong inhibitors of CYP2D6, patient has had a recent dose decrease of carvedilol Drug-disease interactions of clinical significance: none Immunizations: did not discuss 1. Diabetes: Patient has Type 2 Diabetes that is controlled on current therapy of insulin glargine 18 units daily at bedtime and Mounjaro 7.5 mg subq once weekly. Patient???s most recent A1C was at goal of less than 8% (modified target due to age and co-existing chronic illness) and glucose readings are not available with goal of time in target range more than 70% per CGM data. Patient???s next A1C is due in September 2023. Patient is meeting 5/5 diabetes quality metrics. Hypertension: Patient???s blood pressure control is improving with goal of less than 130/80 mmHg per Ask [place] Expert recommendations on current therapy of clonidine 0.2 mg twice daily, doxazosin 4 mgdaily, carvedilol 6.25 mg BID, irbesartan 75 mg daily, torsemide 20 mg daily. Patient to follow up with elevator adjuster in September and Nephrology/Hypertension clinic next week. Blood pressure's have shown improvement. Lipid Management: Based on primary prevention with ASCVD risk 45.6% patient is appropriately treated with recommended high intensity statin and on current therapy of atorvastatin 40 mg. Patient reports weakness in his legs, uncertain if atorvastatin is contributing to that. Could consider checking a creatine kinase level. Depression/Anxiety: The patient???s depression is well controlled and anxiety is well controlled with current therapy of fluoxetine 10 mg daily. Atrial Fibrillation: Patient is rate controlled on carvedilol. He has [id number] VASc Score of 4 and is on appropriate anticoagulation with Apixaban (Eliquis) to reduce risk of thromboembolism. Patient's current dose of Eliquis is 2.5 mg BID, patient is a fall risk, would defer to cardiology for any dose adjustment to Eliquis. CKD: taking sodium bicarbonate, sevelamer, torsemide The following medications and/or conditions were reviewed by pharmacist and found to be appropriatewith no medication-related problems at this time: prednisolone ophthalmic drops, prednisone, loperamide, MVI, Vitron-C, vitamin B12, vitamin D Plan: The following action(s) were not taken under the authority of a collaborative practice agreement unless otherwise noted. Provider to consider checking a creatine kinase as patient has renal insufficiency and long-standing diabetes and takes atorvastatin No changes made to medications, this was a comprehensive medication review Follow-up with pharmacist was not scheduled at this time patient will follow up with primary provider . Riccardo expressed understanding of, and agreement with plan of care. He was provided a verbal summaryof these recommendations and was provided Medication Action Plan. Total time spent was 45 minutes, with more than 50% of the time spent on counseling, coordination of care and patient education. Plan of care was communicated to the referring provider via an electronically routed chart. Barbara Diane, Pharm.D., R.Ph., BCPS documented in this encounter Plan of Treatment Upcoming Encounters Date Type Department Care Team (Latest Contact Info) Description 10/15/2023 2:20 PM CDT Appointment Department of Laboratory Medicine in [address] [phone] Luis Carrion M.B.B.S. [address] [place] [phone] 10/15/2023 2:40 PM CDT Appointment Department of Laboratory Medicine in [address] [phone] Luis Carrion M.B.B.S. [address] [place] [phone] 10/15/2023 3:30 PM CDT Ancillary Procedure Department of Cardiovascular Diseases in [address] [phone] Clover Delaney M.D. [address] [place] [phone] Discharge Disposition: Home or Self Care 12/18/2023 9:00 AM CDT Clinical Communication Virtual Review in [place], [place] [address] [place] [address] 12/21/2023 9:15 AM CDT Ancillary Procedure Department of Ophthalmology in [address] [phone] Jsutin Bunch M.D. [address] [place] [phone] 12/21/2023 9:45 AM CDT Ancillary Procedure Department of Ophthalmology in [address] [address] Justin Bunch M.D. [address] [place] [address] 12/21/2023 10:00 AM CDT Office Visit Department of Ophthalmology in [place], [place] [address] [place] [address] Justin Bunch M.D. 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 [address] [place] [address] PCP - General Internal Medicine 11/23/17 documented as of this encounter
--- OUTSIDE RECORDS SUMMARY | 2023-10-06 10:26 | XMS_ITS | Encounter Summary ---
Author Organization [facility] Address [address] [place] [address] Care Team Providers Care Property Maintenance Supervisor Name Role Phone Clover Delaney M.D. Primary Care Provider [phone] Reason for Referral * Outpatient (Routine) - Closed Specialty Diagnoses / Procedures Referred By Yenny hunter Referred To Contact Diagnoses Atrial Fibrillation Unspecified (HCC) Hypertensive Chronic Kidney Disease With Stage 5 Chronic Kidney Disease Or End Stage Renal Disease, Chronic Kidney Disease Stage 5 (HCC) Procedures ECG 12 Lead Clover Delaney M.D. [address] [place] [address] [facility] Region Referral ID Status Reason Start Date Expiration Date Visits Re quested Visits Authorized [id number] Closed 08/19/2023 08/18/2024 1 1 Reason for Visit * Outpatient (Routine) - Closed Specialty Diagnoses / Procedures Referred By Yenny hunter Referred To Contact Diagnoses Atrial Fibrillation Unspecified (HCC) Hypertensive Chronic Kidney Disease With Stage 5 Chronic Kidney Disease Or End Stage Renal Disease, Chronic Kidney Disease Stage 5 (HCC) Procedures ECG 12 Lead Clover Delaney M.D. [address] [facility] [place] [address] [facility] Region Referral ID Status Reason Start Date Expiration Date Visits Re quested Visits Authorized [id number] Closed 08/19/2023 08/18/2024 1 1 Encounter Details Date Type Department Care Team (Latest Contact Info) Description 08/20/2023 3:07 PM CDT Hospital Encounter Department of Radiology in [place], [place] [address] [place] [phone] Clover Delaney M.D. [address] [place] [address] Atrial Fibrillation Unspecified (HCC); Hypertensive [...] week 07/28/2022 How often do you attend [facility] or christianity services? Never 07/28/2022 Do you [...] Answer Date Recorded PHQ-2 Score 2 05/28/2023 [facility] - Occupational [...] Sex Assigned at Male 05/13/2021 10:11 AM TAX DIRECTOR Gender Identity Male 11/02/2017 7:22 PM [...] by mouth as needed. miscellaneous medical supply [facility] CPAP Supplies See Instructions, CPAP machine, mask 1 ea x 4 refills, headgear 1 ea x 2 refills, tubing 1 ea x 4 refills, filters 2 ea per month, tub 1 ea x 2 refills, mask seal 1 ea x 2 refills DX G47.33, length of need 99, 1 each, 0 Refill(s) 10/20/[address] [facility] Head Gear for CPAP Machine See Instructions, fax to patient at [phone], 1 each 01/17/2014 MULTIVITAMIN ORAL Daily Multiple Vitamins See Instructions, Take 1 tablet by mouth daily. 07/23/2013 ONETOUCH DELICA LANCETS [address] [facility] 3 08/02/2018 OneTouch Ultra Test StripsIndications:Diabet es [...] Appointment Department of Laboratory Medicine in [address] [phone] Luis Carrion M.B.B.S. [address] [place] [phone] 10/15/2023 2:40 PM CDT Appointment Department of Laboratory Medicine in [address] [phone] Luis Carrion M.B.B.S. [address] [place] [phone] 10/15/2023 3:30 PM CDT Ancillary Procedure Department of Cardiovascular Diseases in [address] [phone] Clover Delaney M.D. [address] [place] [phone] Discharge Disposition: Home or Self Care 12/18/2023 9:00 AM CDT Clinical Communication Virtual Review in [place], [place] 200 [place] [address] 12/21/2023 9:15 AM CDT Ancillary Procedure Department of Ophthalmology in [address] [phone] Justin Bunch M.D. [address] [place] [phone] 12/21/2023 9:45 AM CDT Ancillary Procedure Department of Ophthalmology in [address] [phone] Justin Bunch M.D. [address] [place] [phone] 12/21/2023 10:00 AM CDT Office Visit Department of Ophthalmology in [place], [place] [address] [place] [phone] Justin Bunch M.D. [address] [place] [address] documented as of this encounter Procedures Procedure [...] MUSE QTC Interval 430 ms MUSE R Mckenna -12 degrees MUSE T Wave Mckenna 128 degrees MUSE 08/20/2023 3:30 PM CDT [...] Total Score: 4 06/06/19 23 2:04 PM TAX DIRECTOR documented as of this encounter Care Teams Property Maintenance Supervisor Relationship Specialty Start Date End Date Clover Delaney M.D. [address] [place] [address] PCP - General Internal Medicine 11/23/17 documented as of this encounter
--- OUTSIDE RECORDS SUMMARY | 2023-10-06 10:26 | XMS_ITS | Encounter Summary ---
Author Organization [facility] Address [address] [place] [address] Care Team Providers Care Data Conversion Analyst Name Role Phone Clover Delaney M.D. Primary Care Provider [phone] Reason for Visit * Reason Comments Med Refill Encounter Details Date Type Department Care Team (Late st Contact Info) Description 08/25/2023 Refill Department of Ophthalmology in [place], [place] [address] [place] [phone] Jon Juarez M.D. [address] [place] [phone] Med Refill Social History Tobacco Use Types [...] Answer Date Recorded PHQ-2 Score 2 05/28/2023 [facility] of Occupat ional Health - Occupational Stress [...] Sex Assigned at Male 05/13/2021 10:11 AM GIN OPERATOR Gender Identity Male 11/02/2017 7:22 PM CDT Sexual Orientation Straight 11/02/2017 7: 22 PM CDT documented as of this encounter Plan of Treatment Upcoming Encounters Date Type Department Care Team (Latest Contact Info) Description 10/15/2023 2:20 PM CDT Appointment Department of Laboratory Medicine in [address] [phone] Luis Carrion M.B.B.S. [address] [place] [phone] 10/15/2023 2:40 PM CDT Appointment Department of Laboratory Medicine in [address] [address] Luis Carrion M.B.B.S. [address] [place] [phone] 10/15/2023 3:30 PM CDT Ancillary Procedure Department of Cardiovascular Diseases in [address] [address] Clover Delaney M.D. [address] [place] [phone] Discharge Disposition: Home or Self Care 12/18/2023 9:00 AM CDT Clinical Communication Virtual Review in [address] [address] 12/21/2023 9:15 AM CDT Ancillary Procedure Department of Ophthalmology in [address] [address] Justin Bunch M.D. [address] [place] [phone] 12/21/2023 9:45 AM CDT Ancillary Procedure Department of Ophthalmology in [address] [address] Justin Bunch M.D. [address] [place] [phone] 12/21/2023 10:00 AM CDT Office Visit Department of Ophthalmology in [place], [place] [address] [place] [address] Justin Bunch M.D. [address] [place] [address] documented as of this encounter Visit Diagnoses Not on filedocumented in this encounter Additional Health Concerns Assessment Noted Time PHQ-9 Depression Total Score: 4 06/06/19 23 2:04 PM GIN OPERATOR documented as of this encounter Care Teams Data Conversion Analyst Relationship Specialty Start Date End Date Clover Delaney M.D. [address] [place] [phone] PCP - General Internal Medicine 11/23/17 documented as of this encounter
--- OUTSIDE RECORDS SUMMARY | 2023-10-06 10:26 | XMS_ITS | Encounter Summary ---
Author Organization [facility] Address [address] [place] [address] Care Team Providers Care Seam Taper Machine Name Role Phone Clover Delaney M.D. Primary Care Provider [phone] Encounter Details Date Type Department Care Team (Late st Contact Info) Description 08/21/2023 Orders Only Division of Endocrinology in [place], [place] [address] [place] [place] [phone] Cammy Silva M.D. [address] [place] [phone] Diabetes Mellitus Type 2 With Diabetic Neuropathy [...] In the past 12 months has e [employer], gas, oil, or water [employer] threatened to shut off services in [...] Recorded PHQ-2 Score 2 05/28/2023 [facility] of Occupat ional Health - Occupational Stress [...] Sex Assigned at Male 05/13/2021 10:11 AM YARN PACKER Gender Identity Male 11/02/2017 7:22 PM CDT Sexual Orientation Straight 11/02/2017 7: 22 PM CDT documented as of this encounter Plan of Treatment Upcoming Encounters Date Type Department Care Team (Latest Contact Info) Description 10/15/2023 2:20 PM CDT Appointment Department of Laboratory Medicine in [address] [phone] Luis Carrion M.B.B.S. [address] [place] [phone] 10/15/2023 2:40 PM CDT Appointment Department of Laboratory Medicine in [address] [phone] Luis Carrion M.B.B.S. [address] [place] [phone] 10/15/2023 3:30 PM CDT Ancillary Procedure Department of Cardiovascular Diseases in [address] [phone] Clover Delaney M.D. [address] [place] [phone] Discharge Disposition: Home or Self Care 12/18/2023 9:00 AM CDT Clinical Communication Virtual Review in [address] [phone] 12/21/2023 9:15 AM CDT Ancillary Procedure Department of Ophthalmology in [address] [phone] Justin Bunch M.D. [address] [place] [phone] 12/21/2023 9:45 AM CDT Ancillary Procedure Department of Ophthalmology in [address] [address] Justin Bunch M.D. [address] [place] [phone] 12/21/2023 10:00 AM CDT Office Visit Department of Ophthalmology in [address] [address] Justin Bunch M.D. [address] [place] [address] documented as of this encounter Visit Diagnoses Diagnosis Diabetes Mellitus Type 2 With Diabetic Neuropathy (HCC)- Primary documented in this encounter Additional Health Concerns Assessment Noted Time PHQ-9 Depression Total Score: 4 06/06/19 23 2:04 PM YARN PACKER documented as of this encounter Care Teams Seam Taper Machine Relationship Specialty Start Date End Date Clover Delaney M.D. [address] [place] [address] PCP - General Internal Medicine 11/23/17 documented as of this encounter
--- OUTSIDE RECORDS SUMMARY | 2023-10-06 10:26 | XMS_ITS | Encounter Summary ---
Author Organization [facility] Address [address] [place] [address] Care Team Providers Care Fiberglass Grinder Name Role Phone Clover Delaney M.D. Primary Care Provider [phone] Reason for Visit * Reason Onset Date Comments Hyperglycemia 08/22/2023 Encounter Details Date Type Department Care Team (Late st Contact Info) Description 08/22/2023 Nurse Triage Department of [facility] Internal Medicine in [address] [place] [phone] Savanah Gibson, M.S.N., R.N. 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 - 08/22/2023 11:16 AM CDT Chief [...] mmol/L) Protocols used: Diabetes - High Blood Jvaxg-[id number] Care Advice Patient/Caregiver understands and will follow care advice?: Yes, able to teach back Diabetes - High Blood Anxry-BGAIA-NN Savanah Gibson M.S.N., R.N. Sat Aug 22, 2023 11:28 AM Care Advice CALL PCP NOW: * You need to discuss this with your doctor (or TRANSCRIPT CLERK/PA). * I'll page the on-call provider now. If you haven't heard from the provider (or me) within 30 minutes, call again. ALTERNATE DISPOSITION - CALL YOUR BIOINFORMATICS SUPPORT SPECIALIST NOW: * If you have a personal protection specialist (doctor, TRANSCRIPT CLERK, PA), call the specialist now. CALL BACK IF: * Vomiting occurs * Rapid breathing occurs * You become worse documented in this encounter Plan of Treatment Upcoming Encounters Date Type Department Care Team (Latest Contact Info) Description 10/15/2023 2:20 PM CDT Appointment Department of Laboratory Medicine in [address] [phone] Luis Carrion M.B.B.S. [address] [place] [address] 10/15/2023 2:40 PM CDT Appointment Department of Laboratory Medicine in [address] [phone] Luis Carrion M.B.B.S. [address] [place] [phone] 10/15/2023 3:30 PM CDT Ancillary Procedure Department of Cardiovascular Diseases in [address] [phone] Clover Delaney M.D. [address] [place] [phone] Discharge Disposition: Home or Self Care 12/18/2023 9:00 AM CDT Clinical Communication Virtual Review in [address] [address] 12/21/2023 9:15 AM CDT Ancillary Procedure Department of Ophthalmology in [place], [place] [address] [place] [phone] Justin Bunch M.D. [address] [place] [phone] 12/21/2023 9:45 AM CDT Ancillary Procedure Department of Ophthalmology in [address] [phone] Justin Bunch M.D. [address] [place] [phone] 12/21/2023 10:00 AM CDT Office Visit Department of Ophthalmology in [address] [address] Justin Bunch M.D. [address] [place] [phone] documented as of this encounter Visit Diagnoses Not on filedocumented in this encounter Additional Health Concerns Assessment Noted Time PHQ-9 Depression Total Score: 4 06/06/19 23 2:04 PM DUBBING MACHINE OPERATOR documented as of this encounter Care Teams Fiberglass Grinder Relationship Specialty Start Date End Date Clover Delaney M.D. [address] [place] [phone] PCP - General Internal Medicine 11/23/17 documented as of this encounter
--- OUTSIDE RECORDS SUMMARY | 2023-10-06 10:27 | XMS_ITS | Encounter Summary ---
Author Organization [facility] Address [address] [place] [address] Care Team Providers Care Inseam Trimming Machine Operator Name Role Phone Clover Delaney M.D. Primary Care Provider [phone] Reason for Referral * Outpatient (Routine) - Closed Specialty Diagnoses / Procedures Referred By Yenny hunter Referred To Contact Diagnoses Atrial Fibrillation Unspecified (HCC) Hypertensive Chronic Kidney Disease With Stage 5 Chronic Kidney Disease Or End Stage Renal Disease, Chronic Kidney Disease Stage 5 (HCC) Procedures Echo Transthoracic (TTE) Clover Delaney M.D. [address] [place] [address] [facility] Referral ID Status Reason Start Date Expiration Date Visits Re quested Visits Authorized [id number] Closed 08/19/2023 08/18/2024 1 1 * Outpatient (Routine) - Authorized Specialty Diagnoses / Procedures Referred By Yenny hunter Referred To Contact Diagnoses Atrial Fibrillation Unspecified (HCC) Hypertensive Chronic Kidney Disease With Stage 5 Chronic Kidney Disease Or End Stage Renal Disease, Chronic Kidney Disease Stage 5 (HCC) Procedures ECG Heart rhythm monitor (Holter) Clover Delaney M.D. [address] [place] [address] [facility] Region Referral ID Status Reason Start Date Expiration Date V isits Requested Visits Authorized [id number] Authorized 08/19/2023 08/18/2024 1 1 * Outpatient (Routine) - Closed Specialty Diagnoses / Procedures Referred By Contac t Referred To Contact Diagnoses Atrial Fibrillation Unspecified (HCC) Hypertensive Chronic Kidney Disease With Stage 5 Chronic Kidney Disease Or End Stage Renal Disease, Chronic Kidney Disease Stage 5 (HCC) Procedures ECG 12 Lead Clover Delaney M.D. [address] [place] [address] [facility] Region Referral ID Status Reason Start Date Expiration Date Visits Re quested Visits Authorized [id number] Closed 08/19/2023 08/18/2024 1 1 * Outpatient (Routine) - Closed Specialty Diagnoses / Procedures Referred By Contac t Referred To Contact Diagnoses Atrial Fibrillation Unspecified (HCC) Hypertensive Chronic Kidney Disease With Stage 5 Chronic Kidney Disease Or End Stage Renal Disease, Chronic Kidney Disease Stage 5 (HCC) Procedures DX Chest AP or PA and Lateral 2 Views Clover Delaney M.D. [address] [place] [address] [facility] Region Referral ID Status Reason Start Date Expiration Date Visits Re quested Visits Authorized [id number] Closed 08/19/2023 08/18/2024 1 1 Encounter Details Date Type Department Care Team (Late st Contact Info) Description 08/19/2023 Orders Only Department of Community Internal Medicine in [place], [place] [address] [place] [phone] Clover Delaney M.D. [address] [place] [phone] Atrial Fibrillation Unspecified (HCC) (Primary Dx); Hypertensive [...] e alcohol) Maybe one drink per month [facility] [employer] Answer Date Recorded In the past 12 months has e electric, gas, oil, or water [employer] threatened to shut off services in your [...] Answer Date Recorded PHQ-2 Score 2 05/28/2023 [facility] of Occupat ional Health - Occupational Stress [...] your living situation today? I have a [facility] place to live 08/28/2023 Education Answer Date Recorded What is the highest level of school you have completed or the highest degree you have received? 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 [address] [place] [phone] 10/15/2023 2:40 PM CDT Appointment Department of Laboratory Medicine in [address] [address] Luis Carrion M.B.B.S. [address] [place] [phone] 10/15/2023 3:30 PM CDT Ancillary Procedure Department of Cardiovascular Diseases in [address] [phone] Clvoer Delaney M.D. [address] [place] [phone] Discharge Disposition: Home or Self Care 12/18/2023 9:00 AM CDT Clinical Communication Virtual Review in [address] [place] [address] 12/21/2023 9:15 AM CDT Ancillary Procedure Department of Ophthalmology in [place], [place] [address] [place] [phone] Justin Bunch M.D. [address] [place] [phone] 12/21/2023 9:45 AM CDT Ancillary Procedure Department of Ophthalmology in [place], [place] [address] [place] [phone] Justin Bunch M.D. [address] [place] [phone] 12/21/2023 10:00 AM CDT Office Visit Department of Ophthalmology in [place], [place] [address] [place] [phone] Justin Bunch M.D. [address] [place] [phone] Scheduled Orders Name Type Priority Associated Diagnoses [...] documented as of this encounter Results * (TTE) 2D ECHO [...] Documents. Clover Delaney M.D. CV ECHO PROCEDURES * DX Chest AP or PA and [...] Delaney M.D. IMG DIAGNOSTIC IMAG ING PROCEDURES * ECG 12 Lead (08/20/2023 3:30 PM CDT) Ventricular Rate ECG/Min 50 BPM MUSE QRSD Interval 102 ms MUSE QT Interval 472 ms MUSE QTC Interval 430 ms MUSE R [place] -12 degrees MUSE T Wave [place] 128 degrees MUSE 08/20/2023 3:30 PM CDT [...] NA * Magnesium (08/20/2023 3:17 PM CDT) [facility] Magnesium, P 2.0 1.7 - 2.3 mg/dL 08/20/2023 7:37 PM CDT [facility] Blood (Blood, Venous) 08/20/2023 3:17 PM CDT 08/20/2023 7:00 PM CDT Clover Delaney M.D. LAB BLOOD ADD-ON [facility] [address] [place] [address], [facility] in [place] [address] [place] [address], [place] [address] * Thyroid Function Shannon (08/20/2023 3:17 PM CDT) [facility] TSH, Sensitive 2.7 0.3 - 4.2 mIU/L 08/20/2023 8:07 PM CDT [facility] Blood (Blood, Venous) 08/20/2023 3:17 PM CDT 08/20/2023 7:01 PM CDT Clover Delaney M.D. LAB BLOOD ADD-ON [facility] [address] [address], [facility] [place] [address] [place] [address] [facility] [place] [address] * (ABNORMAL) Comprehensive Metabolic Panel (08/20/2023 3:17 [...] Clover Delaney M.D. LAB BLOOD ADD-ON [facility] [address] [place] [address], [facility] [place] [address] [place] [address] * (ABNORMAL) CBC without Differential (08/20/2023 3:17 [...] Clover Delaney M.D. LAB BLOOD ADD-ON [facility] [address] [place] [address], [facility] [place] [address] [phone] documented in this encounter Visit Diagnoses Diagnosis [...] Score: 4 06/06/19 23 2:04 PM CLOTH PRINTING UTILITY WORKER documented as of this encounter Care Teams Inseam Trimming Machine Operator Relationship Specialty Start Date End Date Clover Delaney M.D. [address] [place] [phone] PCP - General Internal Medicine 11/23/17 documented as of this encounter
--- OUTSIDE RECORDS SUMMARY | 2023-10-06 10:27 | XMS_ITS | Encounter Summary ---
Author Organization [facility] Address [address] [place] [address] Care Team Providers Care Access Consultant Name Role Phone Clover Delaney M.D. Primary Care Provider [phone] Encounter Details Date Type Department Care Team (Latest Contact Info) Description 08/20/2023 3:00 PM CDT - 08/20/2023 3:06 PM CDT Hospital Encounter Department of Laboratory Medicine in [address] [place] [address] Clover Delaney M.D. 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 07/23/2013 ONETOUCH DELICA LANCETS [address] [facility] 08/02/2018 OneTouch Ultra Test StripsIndications:Diabet es [...] Appointment Department of Laboratory Medicine in [address] [phone] Luis Carrion M.B.B.S. 200 [place] [phone] 10/15/2023 2:40 PM CDT Appointment Department of Laboratory Medicine in [address] [phone] Luis Carrion M.B.B.S. [address] [place] [phone] 10/15/2023 3:30 PM CDT Ancillary Procedure Department of Cardiovascular Diseases in [address] [phone] Clover Delaney M.D. [address] [place] [phone] Discharge Disposition: Home or Self Care 12/18/2023 9:00 AM CDT Clinical Communication Virtual Review in [place], [place] [address] [place] [address] 12/21/2023 9:15 AM CDT Ancillary Procedure Department of Ophthalmology in [place], [place] [address] [place] [phone] Justin Bunch M.D. [address] [place] [phone] 12/21/2023 9:45 AM CDT Ancillary Procedure Department of Ophthalmology in [place], [place] [address] [place] [phone] Justin Bunch M.D. [address] [place] [phone] 12/21/2023 10:00 AM CDT Office Visit Department of Ophthalmology in [place], [place] [address] [place] [phone] Justin Bunch M.D. [address] [place] [phone] documented as of this encounter Procedures Procedure [...] M.D. LAB BLOOD ADD-ON Performing Organization Address City/[facility]/ZIP Co de Phone Number [facility] [address] [place] [address], [place] [address], [facility] in [address] [address] * Thyroid Function [place] (08/20/2023 3:17 PM CDT) TSH, Sensitive 2.7 0.3 - 4.2 mIU/L 08/20/2023 8:07 PM CDT [facility] Blood (Blood, Venous) 08/20/2023 3:17 PM CDT 08/20/2023 7:01 PM CDT Clover Delaney M.D. LAB BLOOD ADD-ON [facility] [address] [place] [address], [place] [address], [facility] in [address] [place] [address] * (ABNORMAL) Comprehensive Metabolic Panel (08/20/2023 3:17 [...] [facility] [place] [address] [address], [facility] in [place] [address] [address] * (ABNORMAL) CBC without Differential (08/20/2023 3:17 [...] [facility] [address] [address], [place] [facility] in [place] [address] [place] [address] documented in this encounter Visit Diagnoses Diagnosis Atrial Fibrillation Unspecified (HCC) Hypertensive Chronic Kidney Disease With Stage 5 Chronic Kidney Disease Or End Stage Renal Disease, Chronic Kidney Disease Stage 5 (HCC) documented in this encounter Additional Health Concerns Assessment Noted Time PHQ-9 Depression Total Score: 4 06/06/19 23 2:04 PM AUTOMATIC QUILLING MACHINE OPERATOR documented as of this encounter Care Teams Access Consultant Relationship Specialty Start Date End Date Clover Delaney M.D. [address] [place] [address] PCP - General Internal Medicine 11/23/17 documented as of this encounter
--- OUTSIDE RECORDS SUMMARY | 2023-10-06 10:27 | XMS_ITS | Encounter Summary ---
Author Organization [facility] Address [address] [place] [address] Care Team Providers Care Wet End Helper Name Role Phone Clover Delaney M.D. Primary Care Provider [phone] Encounter Details Date Type Department Care Team (Latest Contact Info) Description 07/29/2023 9:49 AM CDT - 07/29/2023 10:51 AM CDT Hospital Encounter Department of Laboratory Medicine and Pathology, [facility], in [place], [place] [address] [place] [phone] Sera Casiano M.D., Ph.D. 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 miscellaneous medical supply [facility] CPAP Supplies See Instructions, CPAP machine, mask 1 ea x 4 refills, headgear 1 ea x 2 refills, tubing 1 ea x 4 refills, filters 2 ea per month, tub 1 ea x 2 refills, mask seal 1 ea x 2 refills DX G47.33, length of need 99, 1 each, 0 Refill(s) 10/20/2016 miscellaneous medical supply [facility] Head Gear for CPAP Machine See Instructions, fax to patient at [phone], 1 each 01/17/2014 MULTIVITAMIN ORAL Daily Multiple [...] 09/25/2023 torsemide (DEMADEX) 20 mg tablet Take 2 tablets (40 mg total) by mouth daily. 180 tablet 3 06/26/2023 08/05/2023 documented as of this encounter Plan of Treatment Upcoming Encounters Date Type Department Care Team (Latest Contact Info) Description 10/15/2023 2:20 PM CDT Appointment Department of Laboratory Medicine in [address] [address] Luis Carrion M.B.B.S. [address] [place] [phone] 10/15/2023 2:40 PM CDT Appointment Department of Laboratory Medicine in [address] [address] Luis Carrion M.B.B.S. [address] [place] [phone] 10/15/2023 3:30 PM CDT Ancillary Procedure Department of Cardiovascular Diseases in [address] [phone] Clover Delaney M.D. [address] [place] [phone] Discharge Disposition: Home or Self Care 12/18/2023 9:00 AM CDT Clinical Communication Virtual Review in [place], [place] 200 [place] [address] 12/21/2023 9:15 AM CDT Ancillary Procedure Department of Ophthalmology in [place], [place] [address] [place] [phone] Justin Bunch M.D. [address] [place] [phone] 12/21/2023 9:45 AM CDT Ancillary Procedure Department of Ophthalmology in [place], [place] [address] [place] [address] Justin Bunch M.D. [address] [place] [phone] 12/21/2023 10:00 AM CDT Office Visit Department of Ophthalmology in [place], [place] [address] [place] [address] Justin Bunch M.D. [address] [place] [phone] documented as of this encounter Procedures Procedure [...] M.D., Ph.D. LAB BL OOD ADD-ON [facility] [address] [place] [address], [facility]3] 200 [place] [address] * Phosphorus Inorganic (07/29/2023 10:17 AM CDT) [facility] Phosphorus (Inorganic), S 4.5 2.5 - 4.5 mg/dL 07/29/2023 12:32 PM CDT DTL Blood (Blood, Venous) 07/29/2023 10:17 AM CDT 07/29/2023 10:55 AM CDT Sera Hyman M.D., Ph.D. LAB BL OOD ADD-ON [facility] [address] [place] [address], [facility]3] 200 [place] [address] * (ABNORMAL) Glucose, Fasting (07/29/2023 10:17 AM CDT) Pathologist [facility] Glucose, P 256(H) 70 - 100 mg/dL 07/29/2023 11:15 AM CDT DTL Last Intake 16 hr 07/29/2023 10:52 AM CDT DTL Blood (Blood, Venous) 07/29/2023 10:17 AM CDT 07/29/2023 10:52 AM CDT Sera Hyman M.D., Ph.D. LAB BL OOD NON ADD-ON Performing Organization Address City/[facility]/ZIP Co de Phone Number [facility] 200 [place] [address], [facility]3] 200 [place] [address] * CRP (C-Reactive Protein) (07/29/2023 10:17 AM CDT) C-Reactive Protein (CRP), S <3.0 <5.0 mg/L 07/29/2023 12:32 PM CDT DTL Blood (Blood, Venous) 07/29/2023 10:17 AM CDT 07/29/2023 10:55 AM CDT Sera Hyman M.D., Ph.D. LAB BL OOD ADD-ON Performing Organization Address [facility] Co de Phone Number [facility] 200 [place], [place] [address] 200 [place] [address] * (ABNORMAL) Comprehensive Metabolic Panel (07/29/2023 10:17 [...] Hyman M.D., Ph.D. LAB BL OOD ADD-ON [facility] [address] [place] [address], [facility] [address] [place] [address] * (ABNORMAL) CBC with Differential, Blood (07/29/2023 [...] M.D., Ph.D. LAB BL OOD ADD-ON [facility] [address] [place] [address], [facility] DTL [facility] [address] [place] [address] [facility] [address] [place] [address] * ANCA (Antineutrophil Cytoplasmic Antibodies) Vasculitis Panel (07/29/2023 10:17 AM CDT) Myeloperoxidase Ab, S <0.2 <0.4 (Negative ) U 07/29/2023 4:45 PM CDT [facility] Proteinase 3 Ab (PR3), S <0.2 <0.4 (Negative ) U 07/29/2023 4:45 PM CDT [facility] Blood (Blood, Venous) 07/29/2023 10:17 AM CDT 07/29/2023 2:52 PM CDT Sera Hyman M.D., Ph.D. LAB BL OOD ADD-ON [facility] [address] [place] [address] [facility] [address] 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 [address] [place] [phone] PCP - General Internal Medicine 11/23/17 documented as of this encounter
--- OUTSIDE RECORDS SUMMARY | 2023-10-06 10:27 | XMS_ITS | Encounter Summary ---
Author Organization [facility] Address [address] [place] [address] Care Team Providers Care Form Layer Name Role Phone Clover Delaney M.D. Primary Care Provider [phone] Reason for Visit * Reason Onset Date Comments Bradycardia 08/16/2023 Weakness - Generalized 08/16/2023 Encounter Details Date Type Department Care Team (Late st Contact Info) Description 08/16/2023 Nurse Triage Department of Community Internal Medicine in [address] [place] [phone] Philomena Raya, R.N. Bradycardia; Weakness - Generalized [...] Sex Assigned at Male 05/13/2021 10:11 AM PACKAGE CHECKER Gender Identity Male 11/02/2017 7:22 PM CDT Sexual Orientation Straight 11/02/2017 7: 22 PM CDT documented as of this encounter Miscellaneous Notes * Telephone Encounter - Philomena Raya R.NJosé Luis - 08/16/2023 12:40 PM CDT Chief Complaint [...] minute) Protocols used: Heart Rate and Heartbeat [id number] Care Advice Patient/Caregiver understands and will follow care advice?: Yes, able to teach back Heart Rate and Heartbeat [id number] Philomena Raya R.N. Sun Aug 16, 2023 12:46 PM Care Advice CALL EMS 911 NOW: documented in this encounter Plan of Treatment Upcoming Encounters Date Type Department Care Team (Latest Contact Info) Description 10/15/2023 2:20 PM CDT Appointment Department of Laboratory Medicine in [address] [address] Luis Carrion M.B.B.S. [address] [place] [address] 10/15/2023 2:40 PM CDT Appointment Department of Laboratory Medicine in [address] [address] Luis Carrion M.B.B.S. [address] [place] [phone] 10/15/2023 3:30 PM CDT Ancillary Procedure Department of Cardiovascular Diseases in [address] [phone] Clover Delaney M.D. [address] [place] [phone] Discharge Disposition: Home or Self Care 12/18/2023 9:00 AM CDT Clinical Communication Virtual Review in [place], [place] 200 [place] [address] 12/21/2023 9:15 AM CDT Ancillary Procedure Department of Ophthalmology in [address] [phone] Justin Bunch M.D. [address] [place] [phone] 12/21/2023 9:45 AM CDT Ancillary Procedure Department of Ophthalmology in [address] [address] Justin Bunch M.D. [address] [place] [phone] 12/21/2023 10:00 AM CDT Office Visit Department of Ophthalmology in [address] [address] Justin Bunch M.D. [address] [place] [phone] documented as of this encounter Visit Diagnoses Not on filedocumented in this encounter Additional Health Concerns Assessment Noted Time PHQ-9 Depression Total Score: 4 06/06/19 23 2:04 PM PACKAGE CHECKER documented as of this encounter Care Teams Form Layer Relationship Specialty Start Date End Date Clover Delaney M.D. [address] [place] [phone] PCP - General Internal Medicine 11/23/17 documented as of this encounter
--- OUTSIDE RECORDS SUMMARY | 2023-10-06 10:27 | XMS_ITS | Encounter Summary ---
Author Organization [facility] Address [address] [place] [address] Care Team Providers Care Medical Equipment Repairer Name Role Phone Clover Delaney M.D. Primary Care Provider [phone] Encounter Details Date Type Department Care Team (Latest Contact Info) Description 07/29/2023 9:49 AM CDT - 07/29/2023 10:51 AM CDT Hospital Encounter Department of Laboratory Medicine and Pathology, [facility], in [place], [place] [address] [place] [phone] Sera Casiano M.D., Ph.D. 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 miscellaneous medical supply [facility] [...] 0 Refill(s) 10/20/2016 miscellaneous medical supply [facility] Head Gear for CPAP Machine See Instructions, fax to patient at [phone], 1 each 01/17/2014 MULTIVITAMIN ORAL Daily Multiple [...] CDT Appointment Department of Laboratory Medicine in [address] [address] Luis Carrion M.B.B.S. [address] [place] [phone] 10/15/2023 2:40 PM CDT Appointment Department of Laboratory Medicine in [address] [address] Luis Carrion M.B.B.S. [address] [place] [phone] 10/15/2023 3:30 PM CDT Ancillary Procedure Department of Cardiovascular Diseases in [address] [address] Clover Delaney M.D. [address] [place] [phone] Discharge Disposition: Home or Self Care 12/18/2023 9:00 AM CDT Clinical Communication Virtual Review in [place], [place] 200 [place] [address] 12/21/2023 9:15 AM CDT Ancillary Procedure Department of Ophthalmology in [place], [place] [address] [place] [phone] Justin Bunch M.D. [address] [place] [address] 12/21/2023 9:45 AM CDT Ancillary Procedure Department of Ophthalmology in [place], [place] [address] [place] [address] Justin Bunch M.D. [address] [place] [phone] 12/21/2023 10:00 AM CDT Office Visit Department of Ophthalmology in [place], [place] [address] [place] [address] Justin Bunch M.D. [address] [place] [address] documented as of this encounter Procedures Procedure [...] LAB UR INE ORDERABLES Performing Organization Address City/[facility]/ZIP Co de Phone Number [facility] 200 [place] [address] * (ABNORMAL) Dipstick, Urine (07/29/2023 10:27 AM [...] LAB UR INE ORDERABLES Performing Organization Address City/[facility]/ZIP Co de Phone Number [facility] 200 [place], [place] [address] [place] [address] * pH, Urine (07/29/2023 10:27 AM CDT) pH, U 6.2 4.5 - 8.0 07/29/2023 11: 02 AM CDT DTL Urine 07/29/2023 10:2 7 AM CDT 07/29/2023 10:35 AM CDT Sera Hyman M.D., Ph.D. LAB UR INE ORDERABLES Performing Organization Address [facility] Co de Phone Number [facility] 200 [place] [address] * Osmolality, Urine (07/29/2023 10:27 AM CDT) Pathologist [facility] Osmolality, U 323 150 - 1150 mOsm/kg 07/29/2023 11:02 AM CDT DTL Urine 07/29/2023 10:2 7 AM CDT 07/29/2023 10:35 AM CDT Sera Hyman M.D., Ph.D. LAB UR INE ORDERABLES Performing Organization Address [facility] Co de Phone Number [facility] 200 [place] [address] * (ABNORMAL) Urinalysis, with Microscopic: Urine, Midstream [...] 07/29/2023 11:44 AM CDT DTL Predicted Range 2563-50141 mg/24 h 07/29/2023 11:44 AM CDT DTL Comment Micro done on <10 mL 07/29/2023 1:01 PM CDT DTL Urine (Urine, Midstream) 07/29/2023 10:27 AM CDT 07/29/2023 10:35 AM CDT Sera Hyman M.D., Ph.D. 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 [address] [place] [address] PCP - General Internal Medicine 11/23/17 documented as of this encounter
--- OUTSIDE RECORDS SUMMARY | 2023-10-06 10:27 | XMS_ITS | Encounter Summary ---
Author Organization [facility] Address [address] [place] [address] Care Team Providers Care Architecture Consultant Name Role Phone Clover Delaney M.D. Primary Care Provider [phone] Encounter Details Date Type Department Care Team (Late st Contact Info) Description 08/10/2023 Clinical Communication Division of Nephrology and Hypertension in [place], [place] [address] [place] [address] Kanwal Roberts, RJosé LuisNJosé Luis [address] [place] [phone] Social History Tobacco Use Types Packs/Day Years [...] Answer Date Recorded PHQ-2 Score 2 05/28/2023 [facility] of Occupat ional Health [...] Sex Assigned at Male 05/13/2021 10:11 AM CREDIT OR LOANS OFFICER Gender Identity Male 11/02/2017 7:22 PM CDT [...] Surgery: New date of 09/28/2023. Surgical Checklist ([id number]): Has been reviewed with the patient on [...] Appointment Department of Laboratory Medicine in [address] [address] Luis Carrion M.B.B.S. [address] [place] [phone] 10/15/2023 2:40 PM CDT Appointment Department of Laboratory Medicine in [address] [address] Luis Carrion M.B.B.S. [address] [place] [address] 10/15/2023 3:30 PM CDT Ancillary Procedure Department of Cardiovascular Diseases in [address] [phone] Clover Delaney M.D. [address] [place] [phone] Discharge Disposition: Home or Self Care 12/18/2023 9:00 AM CDT Clinical Communication Virtual Review in [place], [place] 200 [place] [address] 12/21/2023 9:15 AM CDT Ancillary Procedure Department of Ophthalmology in [address] [address] Justin Bunch M.D. [address] [place] [phone] 12/21/2023 9:45 AM CDT Ancillary Procedure Department of Ophthalmology in [address] [address] Justin Bunch M.D. [address] [place] [phone] 12/21/2023 10:00 AM CDT Office Visit Department of Ophthalmology in [address] [address] Justin Bunch M.D. [address] [place] [phone] documented as of this encounter Visit Diagnoses Not on filedocumented in this encounter Additional Health Concerns Assessment Noted Time PHQ-9 Depression Total Score: 4 06/06/19 23 2:04 PM CREDIT OR LOANS OFFICER documented as of this encounter Care Teams Architecture Consultant Relationship Specialty Start Date End Date Clover Delaney M.D. [address] [place] [phone] PCP - General Internal Medicine 11/23/17 documented as of this encounter
--- OUTSIDE RECORDS SUMMARY | 2023-10-06 10:27 | XMS_ITS | Encounter Summary ---
Author Organization [facility] Address [address] [place] [address] Care Team Providers Care Special Shopper Name Role Phone Clover Delaney M.D. Primary Care Provider [phone] Reason for Visit * Reason Comments Med Refill Encounter Details Date Type Department Care Team (Late st Contact Info) Description 08/17/2023 Refill Department of Community Internal Medicine in [address] [place] [address] Clover Delaney M.D. [address] [place] [address] Med Refill Social History Tobacco [...] Score 2 05/28/2023 [facility] - Occupational Stress [...] Sex Assigned at Male 05/13/2021 10:11 AM DEVELOPMENT VICE PRESIDENT Gender Identity Male 11/02/2017 7:22 PM CDT [...] Appointment Department of Laboratory Medicine in [address] [address] Luis Carrion M.B.B.S. [address] [place] [phone] 10/15/2023 2:40 PM CDT Appointment Department of Laboratory Medicine in [address] [address] Luis Carrion M.B.B.S. [address] [place] [phone] 10/15/2023 3:30 PM CDT Ancillary Procedure Department of Cardiovascular Diseases in [address] [address] Clover Delaney M.D. [address] [place] [phone] Discharge Disposition: Home or Self Care 12/18/2023 9:00 AM CDT Clinical Communication Virtual Review in [address] [phone] 12/21/2023 9:15 AM CDT Ancillary Procedure Department of Ophthalmology in [place], [place] [address] [place] [phone] Justin Bunch M.D. [address] [place] [phone] 12/21/2023 9:45 AM CDT Ancillary Procedure Department of Ophthalmology in [place], [place] [address] [place] [phone] Justin Bunch M.D. [address] [place] [phone] 12/21/2023 10:00 AM CDT Office Visit Department of Ophthalmology in [address] [phone] Justin Bunch M.D. 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 [address] [place] [phone] PCP - General Internal Medicine 11/23/17 documented as of this encounter
--- OUTSIDE RECORDS SUMMARY | 2023-10-06 10:27 | XMS_ITS | Encounter Summary ---
Author Organization [facility] Address [address] [place] [address] Care Team Providers Care Chief Mechanical Engineer Name Role Phone Clover Delaney M.D. Primary Care Provider [phone] Reason for Referral * Outpatient (Routine) - Authorized Specialty Diagnoses / Procedures Referred By Contac t Referred To Contact Diagnoses Preoperative Exam Procedures ECG 12 Lead Sera Casiano M.D., Ph.D. 200 [place] [address] [facility] Referral ID Status Reason Start Date Expiration Date V isits Requested Visits Authorized [id number] Authorized 08/05/2023 08/04/2024 1 1 Reason for Visit * Appointment Request (Routine) - Closed Specialty Diagnoses / Procedures Referred By Yenny hunter Referred To Contact Nephrology and Hypertension Referral ID Status Reason Start Date Expiration Date Visits Re quested Visits Authorized [id number] Closed 07/03/2023 07/02/2024 1 1 Encounter Details Date Type Department Care Team (Latest Contact Info) Description 08/05/2023 4:00 PM CDT External Outreach Division of Nephrology and Hypertension in [place], [place] 200 [place] [phone] Sera Casiano M.D., Ph.D. 200 [place] [address] Chronic Kidney Disease Stage 5 Glomerular Filtration [...] Answer Date Recorded PHQ-2 Score 2 05/28/2023 [facility] of Occupat ional Health - [...] Sex Assigned at Male 05/13/2021 10:11 AM TANK TRUCK MILK RECEIVER Gender Identity Male 11/02/2017 7:22 PM CDT Sexual Orientation Straight 11/02/2017 7: 22 PM CDT documented as of this encounter Progress Notes * Sera Casiano M.D., Ph.D. - 08/05/2023 4:00 PM CDT PROGRESS NOTE SUBJECTIVE CHIEF COMPLAINT / REASON FOR VISIT Follow up CKD 5 [facility] Outreach Visit Location: [facility] HISTORY OF PRESENT ILLNESS Philip Patel [...] anemia management Return visit in [facility] at [facility]. Jessica Hyman M.D., Ph.D. * Sera Casiano [...] less] Plan to repeat Potassium on 09/02/2023 [facility] - Required the day of the [...] CDT Appointment Department of Laboratory Medicine in [address] [phone] Luis Carrion M.B.B.S. [address] [place] [phone] 10/15/2023 2:40 PM CDT Appointment Department of Laboratory Medicine in [address] [phone] Luis Carrion M.B.B.S. [address] [place] [phone] 10/15/2023 3:30 PM CDT Ancillary Procedure Department of Cardiovascular Diseases in [address] [phone] Clover Delaney M.D. [address] [place] [phone] Discharge Disposition: Home or Self Care 12/18/2023 9:00 AM CDT Clinical Communication Virtual Review in [address] [phone] 12/21/2023 9:15 AM CDT Ancillary Procedure Department of Ophthalmology in [place], [place] [address] [place] [phone] Justin Bunch M.D. [address] [place] [phone] 12/21/2023 9:45 AM CDT Ancillary Procedure Department of Ophthalmology in [address] [address] Justin Bunch M.D. [address] [place] [phone] 12/21/2023 10:00 AM CDT Office Visit Department of Ophthalmology in [place], [place] [address] [place] [address] Justin Bunch M.D. 200 [place] [address] Scheduled Orders Name Type Priority Associated Diagnoses [...] Total Score: 4 06/06/19 23 2:04 PM TANK TRUCK MILK RECEIVER documented as of this encounter Care Teams Chief Mechanical Engineer Relationship Specialty Start Date End Date Clover Delaney M.D. [address] [place] [phone] PCP - General Internal Medicine 11/23/17 documented as of this encounter
--- OUTSIDE RECORDS SUMMARY | 2023-10-06 10:27 | XMS_ITS | Encounter Summary ---
Author Organization [facility] Address [address] [place] [address] Care Team Providers Care Casino Floor Person Name Role Phone Clover Delaney M.D. Primary Care Provider [phone] [phone] Encounter Details Date Type Department Care Team (Late st Contact Info) Description 07/29/2023 Documentation Division of Nephrology and Hypertension in [place], [place] [address] [place] [address] Kanwal Roberts, R.NJosé Luis [address] [place] [phone] Social History Tobacco Use Types Packs/Day Years [...] Answer Date Recorded PHQ-2 Score 2 05/28/2023 [facility] of Occupat ional Health - [...] Sex Assigned at Male 05/13/2021 10:11 AM POCKET CUTTER Gender Identity Male 11/02/2017 7:22 PM CDT [...] 09/03/2023. Checklist: The Checklist for Surgical Patients ([id number]) was given to the patient with the following instructions: Report to [facility] admissions at the time told [...] on 08/04 at 3:45 pm at the [facility]. Other: INFORMED CONSENT Patient signed the consent form electronically. documented in this encounter Plan of Treatment Upcoming Encounters Date Type Department Care Team (Latest Contact Info) Description 10/15/2023 2:20 PM CDT Appointment Department of Laboratory Medicine in [address] [phone] Luis Carrion M.B.B.S. [address] [place] [address] 10/15/2023 2:40 PM CDT Appointment Department of Laboratory Medicine in [address] [address] Luis Carrion M.B.B.S. [address] [place] [address] 10/15/2023 3:30 PM CDT Ancillary Procedure Department of Cardiovascular Diseases in [address] [phone] Clover Delaney M.D. [address] [place] [phone] Discharge Disposition: Home or Self Care 12/18/2023 9:00 AM CDT Clinical Communication Virtual Review in [place], [place] 200 [place] [address] 12/21/2023 9:15 AM CDT Ancillary Procedure Department of Ophthalmology in [address] [address] Justin Bunch M.D. [address] [place] [phone] 12/21/2023 9:45 AM CDT Ancillary Procedure Department of Ophthalmology in [address] [address] Justin Bunch M.D. [address] [place] [phone] 12/21/2023 10:00 AM CDT Office Visit Department of Ophthalmology in [address] [address] Justin Bunch M.D. [address] [place] [phone] documented as of this encounter Visit Diagnoses Not on filedocumented in this encounter Additional Health Concerns Assessment Noted Time PHQ-9 Depression Total Score: 4 06/06/19 23 2:04 PM POCKET CUTTER documented as of this encounter Care Teams Casino Floor Person Relationship Specialty Start Date End Date Clover Delaney M.D. [address] [place] [phone] PCP - General Internal Medicine 11/23/17 documented as of this encounter
--- OUTSIDE RECORDS SUMMARY | 2023-10-06 10:27 | XMS_ITS | Encounter Summary ---
Author Organization [facility] Address [address] [place] [address] Care Team Providers Care Hospice Nurse Name Role Phone Clover Delaney M.D. Primary Care Provider [phone] Encounter Details Date Type Department Care Team (Late st Contact Info) Description 08/19/2023 Orders Only Division of Endocrinology in [place], [place] [address] [place] [phone] Cammy Silva M.D. [address] [place] [phone] Social History Tobacco Use Types Packs/Day Years Used Date Smoking Tobacco: Former Cigarettes 0 1961 - 12/26/1980 Passive Smoke Exposure: Never Smokeless Tobacco: Never Alcohol Use Standard Drinks/Week Comments Yes 0 (1 standard drink = 0.6 oz pur e alcohol) Maybe one drink per month [facility] Utilities Answer Date Recorded [...] Answer Date Recorded PHQ-2 Score 2 05/28/2023 [facility] of Occupat ional Health - Occupational Stress [...] Sex Assigned at Male 05/13/2021 10:11 AM PLATE HANGER Gender Identity Male 11/02/2017 7:22 PM CDT Sexual Orientation Straight 11/02/2017 7: 22 PM CDT documented as of this encounter Plan of Treatment Upcoming Encounters Date Type Department Care Team (Latest Contact Info) Description 10/15/2023 2:20 PM CDT Appointment Department of Laboratory Medicine in [address] [phone] Luis Carrion M.B.B.S. [address] [place] [phone] 10/15/2023 2:40 PM CDT Appointment Department of Laboratory Medicine in [address] [phone] Luis Carrion M.B.B.S. [address] [place] [phone] 10/15/2023 3:30 PM CDT Ancillary Procedure Department of Cardiovascular Diseases in [address] [phone] Clover Delaney M.D. [address] [place] [phone] Discharge Disposition: Home or Self Care 12/18/2023 9:00 AM CDT Clinical Communication Virtual Review in [place], [place] 200 [place] [address] 12/21/2023 9:15 AM CDT Ancillary Procedure Department of Ophthalmology in [place], [place] [address] [place] [phone] Justin Bunch M.D. [address] [place] [phone] 12/21/2023 9:45 AM CDT Ancillary Procedure Department of Ophthalmology in [place], [place] [address] [place] [phone] Justin Bunch M.D. [address] [place] [phone] 12/21/2023 10:00 AM CDT Office Visit Department of Ophthalmology in [address] [address] Justin Bunch M.D. [address] [place] [phone] documented as of this encounter Visit Diagnoses Not on filedocumented in this encounter Additional Health Concerns Assessment Noted Time PHQ-9 Depression Total Score: 4 06/06/19 23 2:04 PM PLATE HANGER documented as of this encounter Care Teams Hospice Nurse Relationship Specialty Start Date End Date Clover Delaney M.D. [address] [place] [address] PCP - General Internal Medicine 11/23/17 documented as of this encounter
--- OUTSIDE RECORDS SUMMARY | 2023-10-06 10:27 | XMS_ITS | Encounter Summary ---
Author Organization [facility] Address [address] [place] [address] Care Team Providers Care Ship Runner Name Role Phone Clover Delaney M.D. 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 [address] [place] [address] [facility] Region Referral ID Status Reason Start Date Expiration Date Visits Re quested Visits Authorized [id number] Closed 08/20/2023 02/18/2025 1 1 Encounter Details Date Type Department Care Team (Late st Contact Info) Description 08/20/2023 Orders Only [facility] [address] [place] [phone] Barbara Diane, Pharm.D., R.Ph., [facility] [address] [place] [address] Diabetes Mellitus Type 2 With [...] Recorded PHQ-2 Score 2 05/28/2023 [facility] of Occupat ional [...] Sex Assigned at Male 05/13/2021 10:11 AM FLAME BURNER Gender Identity Male 11/02/2017 7:22 PM CDT Sexual Orientation Straight 11/02/2017 7: 22 PM CDT documented as of this encounter Plan of Treatment Upcoming Encounters Date Type Department Care Team (Latest Contact Info) Description 10/15/2023 2:20 PM CDT Appointment Department of Laboratory Medicine in [address] [phone] Luis Carrion M.B.B.S. [address] [place] [phone] 10/15/2023 2:40 PM CDT Appointment Department of Laboratory Medicine in [address] [phone] Luis Carrion M.B.B.S. [address] [place] [phone] 10/15/2023 3:30 PM CDT Ancillary Procedure Department of Cardiovascular Diseases in [address] [phone] Clover Delaney M.D. [address] [place] [phone] Discharge Disposition: Home or Self Care 12/18/2023 9:00 AM CDT Clinical Communication Virtual Review in [place], [place] 200 [place] [address] 12/21/2023 9:15 AM CDT Ancillary Procedure Department of Ophthalmology in [place], [place] [address] [place] [phone] Justin Bunch M.D. [address] [place] [phone] 12/21/2023 9:45 AM CDT Ancillary Procedure Department of Ophthalmology in [place], [place] [address] [place] [phone] Justin Bunch M.D. [address] [place] [phone] 12/21/2023 10:00 AM CDT Office Visit Department of Ophthalmology in [place], [place] [address] [place] [phone] Justin Bunch M.D. [address] [place] [phone] Scheduled Referrals Name Type Priority Associated Diagnoses [...] Total Score: 4 06/06/19 23 2:04 PM FLAME BURNER documented as of this encounter Care Teams Ship Runner Relationship Specialty Start Date End Date Clover Delaney M.D. [address] [place] [phone] PCP - General Internal Medicine 11/23/17 documented as of this encounter
--- OUTSIDE RECORDS SUMMARY | 2023-10-06 10:28 | XMS_ITS | Encounter Summary ---
Author Organization [facility] Address [address] [place] [address] Care Team Providers Care Control Technician Name Role Phone Clover Delaney M.D. Primary Care Provider [phone] Reason for Visit * Reason Comments home blood pressure monitor check * Outpatient (Routine) - Closed Specialty Diagnoses / Procedures Referred By Contanthony t Referred To Contact Nephrology and Hypertension Sera Casiano M.D., Ph.D. [address] [place] [phone] [facility] Referral ID Status Reason Start Date Expiration Date Visits Re quested Visits Authorized [id number] Closed 06/26/2023 12/25/2024 1 1 Encounter Details Date Type Department Care Team (Late st Contact Info) Description 07/10/2023 2:30 PM CDT Nurse Only Division of Nephrology and Hypertension in [place], [place] [address] [place] [phone] Sera Casiano M.D., Ph.D. [address] [place] [phone] Aislinn Sharma R.N. [address] [place] [phone] home blood pressure monitor check Social History [...] Answer Date Recorded PHQ-2 Score 2 05/28/2023 [facility] of Occupat ional [facility], [...] Sex Assigned at Male 05/13/2021 10:11 AM BURNISHER Gender Identity Male 11/02/2017 7:22 PM CDT Sexual Orientation Straight 11/02/2017 7: 22 PM CDT documented as of this encounter Last Filed Vital Signs Vital Sign Reading Time Taken Comments Blood Pressure /78 07/10/2023 3:05 PM CDT Pulse - - Temperature - - Respiratory Rate - - Oxygen Saturation - - Inhaled Oxygen Concentration - - Weight - - Height - - Body Mass Index - - documented in this encounter Progress Notes * Aislinn Sharma, RJosé LuisN. - 07/10/2023 2:30 PM CDT [...] from Last 1 Encounters: 07/10/23 1505 (!) 204/78 07/10/23 1504 (!) 203/86 07/10/23 1501 (!) [...] Appointment Department of Laboratory Medicine in [address] [phone] Luis Carrion M.B.B.S. [address] [place] [phone] 10/15/2023 2:40 PM CDT Appointment Department of Laboratory Medicine in [address] [phone] Luis Carrion M.B.B.S. [address] [place] [phone] 10/15/2023 3:30 PM CDT Ancillary Procedure Department of Cardiovascular Diseases in [address] [phone] Clover Delaney M.D. [address] [place] [phone] Discharge Disposition: Home or Self Care 12/18/2023 9:00 AM CDT Clinical Communication Virtual Review in [address] [phone] 12/21/2023 9:15 AM CDT Ancillary Procedure Department of Ophthalmology in [address] [phone] Justin Bunch M.D. [address] [place] [phone] 12/21/2023 9:45 AM CDT Ancillary Procedure Department of Ophthalmology in [address] [phone] Justin Bunch M.D. [address] [place] [phone] 12/21/2023 10:00 AM CDT Office Visit Department of Ophthalmology in [address] [phone] Justin Bunch M.D. [address] [place] [address] documented as of this encounter Visit Diagnoses Diagnosis Hypertensive Chronic Kidney Disease With Stage 5 Chronic Kidney Disease Or End Stage Renal Disease, Chronic Kidney Disease Stage 5 (HCC)- Primary documented in this encounter Additional Health Concerns Assessment Noted Time PHQ-9 Depression Total Score: 4 06/06/19 23 2:04 PM BURNISHER documented as of this encounter Care Teams Control Technician Relationship Specialty Start Date End Date Clover Delaney M.D. [address] [place] [phone] PCP - General Internal Medicine 11/23/17 documented as of this encounter
--- OUTSIDE RECORDS SUMMARY | 2023-10-06 10:28 | XMS_ITS | Encounter Summary ---
Author Organization [facility] Address [address] [place] [address] Care Team Providers Care Air Grinder Name Role Phone Clover Delaney M.D. Primary Care Provider [phone] Reason for Visit * Outpatient (Routine) - Closed Specialty Diagnoses / Procedures Referred By Yenny t Referred To Contact Nephrology and Hypertension Sera Casiano M.D., Ph.D. [address] [place] [phone] [facility] Referral ID Status Reason Start Date Expiration Date Visits Re quested Visits Authorized [id number] Closed 06/26/2023 12/25/2024 1 1 Encounter Details Date Type Department Care Team (Late st Contact Info) Description 07/17/2023 1:00 PM CDT Virtual Visit Division of Nephrology and Hypertension in [place], [place] [address] [place] [phone] Sera Casiano M.D., Ph.D. [address] [place] [phone] Kanwal Roberts R.N. [address] [place] [phone] Chronic Kidney Disease Stage 5 Glomerular Filtration [...] PHQ-2 Score 2 05/28/2023 [facility] - Occupational Stress Questionnaire Answer [...] Assigned at Male 05/13/2021 10:11 AM TUBE BACKER Gender Identity Male 11/02/2017 7:22 PM CDT Sexual Orientation Straight 11/02/2017 7: 22 PM CDT documented as of this encounter Progress Notes * Kanwal Roberts R.N. - 07/17/2023 1:00 PM CDT REFERRAL Sera [...] dialysis, but will likely do dialysis at [facility]). He next sees CKD provider on 08/05/2023. Significant Medical History: obesity, colon malignant neoplasm, DM2, KIMBER, etc PACEMAKER: None noted. DIABETES: DM2: Mounjaro injectable ANTICOAGULATION: Takes Aspirin only. LABORATORY RESULTS: Please see [facility] for current labs. BMI: Body mass index [...] the patient over the phone: Hemodialysis Catheters ([id number]),Hemodialysis Fistula and Graft ([id number]). I gave him an red/orange Save your [...] Appointment Department of Laboratory Medicine in [address] [phone] Luis Carrion M.B.B.S. [address] [place] [phone] 10/15/2023 2:40 PM CDT Appointment Department of Laboratory Medicine in [address] [phone] Luis Carrion M.B.B.S. [address] [place] [phone] 10/15/2023 3:30 PM CDT Ancillary Procedure Department of Cardiovascular Diseases in [address] [phone] Clover Delaney M.D. [address] [place] [phone] Discharge Disposition: Home or Self Care 12/18/2023 9:00 AM CDT Clinical Communication Virtual Review in [address] [phone] 12/21/2023 9:15 AM CDT Ancillary Procedure Department of Ophthalmology in [address] [phone] Justin Bunch M.D. [address] [place] [phone] 12/21/2023 9:45 AM CDT Ancillary Procedure Department of Ophthalmology in [place], [place] [address] [place] [address] Justin Bunch M.D. [address] [place] [phone] 12/21/2023 10:00 AM CDT Office Visit Department of Ophthalmology in [place], [place] [address] [place] [address] Justin Bunch M.D. 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 [address] [place] [phone] PCP - General Internal Medicine 11/23/17 documented as of this encounter
--- OUTSIDE RECORDS SUMMARY | 2023-10-06 10:28 | XMS_ITS | Encounter Summary ---
Author Organization [facility] Address [address] [place] [address] Care Team Providers Care Bareback Rider Name Role Phone Clover Delaney M.D. Primary Care Provider [phone] Encounter Details Date Type Department Care Team (Late st Contact Info) Description 07/17/2023 Orders Only Division of Nephrology and Hypertension in [place], [place] [address] [place] [address] Sera Casiano M.D., Ph.D. [address] [place] [phone] Social History Tobacco Use Types Packs/Day Years [...] Answer Date Recorded PHQ-2 Score 2 05/28/2023 [facility] of Occupat ional Health - Occupational Stress [...] Sex Assigned at Male 05/13/2021 10:11 AM VICE PRESIDENT OF MANUFACTURING Gender Identity Male 11/02/2017 7:22 PM CDT Sexual Orientation Straight 11/02/2017 7: 22 PM CDT documented as of this encounter Plan of Treatment Upcoming Encounters Date Type Department Care Team (Latest Contact Info) Description 10/15/2023 2:20 PM CDT Appointment Department of Laboratory Medicine in [address] [phone] Luis Carrino M.B.B.S. [address] [place] [phone] 10/15/2023 2:40 PM CDT Appointment Department of Laboratory Medicine in [address] [phone] Luis Carrion M.B.B.S. [address] [place] [phone] 10/15/2023 3:30 PM CDT Ancillary Procedure Department of Cardiovascular Diseases in [address] [phone] Clover Delaney M.D. [address] [place] [phone] Discharge Disposition: Home or Self Care 12/18/2023 9:00 AM CDT Clinical Communication Virtual Review in [address] [phone] 12/21/2023 9:15 AM CDT Ancillary Procedure Department of Ophthalmology in [address] [phone] Justin Bunch M.D. [address] [place] [phone] 12/21/2023 9:45 AM CDT Ancillary Procedure Department of Ophthalmology in [address] [phone] Justin Bunch M.D. [address] [place] [phone] 12/21/2023 10:00 AM CDT Office Visit Department of Ophthalmology in [place], [place] [address] [place] [address] Justin Bunch M.D. [address] [place] [address] documented as of this encounter Visit Diagnoses Not on filedocumented in this encounter Additional Health Concerns Assessment Noted Time PHQ-9 Depression Total Score: 4 06/06/19 23 2:04 PM VICE PRESIDENT OF MANUFACTURING documented as of this encounter Care Teams Bareback Rider Relationship Specialty Start Date End Date Clover Delaney M.D. [address] [place] [phone] PCP - General Internal Medicine 11/23/17 documented as of this encounter
--- OUTSIDE RECORDS SUMMARY | 2023-10-06 10:28 | XMS_ITS | Encounter Summary ---
Author Organization [facility] Address [address] [place] [address] Care Team Providers Care Enterprise Applications Manager Name Role Phone Clover Delaney M.D. Primary Care Provider [phone] Reason for Referral * Outpatient (Routine) - Closed Specialty Diagnoses / Procedures Referred By Contac t Referred To Contact Nephrology and Hypertension / Dialysis Diagnoses Chronic Kidney Disease Stage 5 Glomerular Filtration Rate Less Than 15 (HCC) Sera Casiano M.D., Ph.D. [address] [place] [phone] [facility] Referral ID Status Reason Start Date Expiration Date Visits Re quested Visits Authorized [id number] Closed 06/26/2023 12/25/2024 1 1 Reason for Visit * Outpatient (Routine) - Closed Specialty Diagnoses / Procedures Referred By Contanthony t Referred To Contact Nephrology and Hypertension / Dialysis Diagnoses Chronic Kidney Disease Stage 5 Glomerular Filtration Rate Less Than 15 (HCC) Sera Casiano M.D., Ph.D. [address] [place] [phone] [facility] Referral ID Status Reason Start Date Expiration Date Visits Re quested Visits Authorized [id number] Closed 06/26/2023 12/25/2024 1 1 Encounter Details Date Type Department Care Team (Latest Contact Info) Description 07/29/2023 2:40 PM CDT - 07/29/2023 11:59 PM CDT Hospital Encounter Division of Nephrology and Hypertension, [facility], in [place], [place] [address] [place] [address] Sera Casiano M.D., Ph.D. 200 [place] [phone] Sandeep Kuo M.D., Ph.D. 200 [place] [phone] Chronic Kidney Disease Stage 5 Glomerular Filtration [...] 07/28/2022 How often do you attend [facility] or rastafarian services? Never 07/28/2022 Do you [...] Date Recorded PHQ-2 Score 2 05/28/2023 [facility] - [...] Assigned at Male 05/13/2021 10:11 AM LABOR RELATIONS OFFICER Gender Identity Male 11/02/2017 7:22 PM [...] Take 2 mg by mouth as needed[facility] CPAP Supplies See Instructions, CPAP machine, mask 1 ea x 4 refills, headgear 1 ea x 2 refills, tubing 1 ea x 4 refills, filters 2 ea per month, tub 1 ea x 2 refills, mask seal 1 ea x 2 refills DX G47.33, length of need 99, 1 each, 0 Refill(s) 10/20/[address] [facility] Head Gear for CPAP Machine See Instructions, fax to patient at [phone], 1 each 01/17/2014 MULTIVITAMIN ORAL Daily Multiple Vitamins See Instructions, Take 1 tablet by mouth daily. 07/23/2013 ONETOUCH DELICA LANCETS [address] [facility] 3 08/02/2018 OneTouch [...] an outpatient under MAC anesthesia here at [facility] on Sep 03 2023. All questions were answered and consent was obtained here from the patient in the presence of his . documented in this encounter Plan of Treatment Upcoming Encounters Date Type Department Care Team (Latest Contact Info) Description 10/15/2023 2:20 PM CDT Appointment Department of Laboratory Medicine in [address] [phone] Luis Carrion M.B.B.S. [address] [place] [phone] 10/15/2023 2:40 PM CDT Appointment Department of Laboratory Medicine in [address] [phone] Luis Carrion M.B.B.S. [address] [place] [phone] 10/15/2023 3:30 PM CDT Ancillary Procedure Department of Cardiovascular Diseases in [address] [phone] Clover Delaney M.D. [address] [place] [phone] Discharge Disposition: Home or Self Care 12/18/2023 9:00 AM CDT Clinical Communication Virtual Review in [place], [place] 200 [place] [address] 12/21/2023 9:15 AM CDT Ancillary Procedure Department of Ophthalmology in [place], [place] [address] [place] [phone] Justin Bunch M.D. [address] [place] [phone] 12/21/2023 9:45 AM CDT Ancillary Procedure Department of Ophthalmology in [place], [place] [address] [place] [phone] Justin Bunch M.D. [address] [place] [phone] 12/21/2023 10:00 AM CDT Office Visit Department of Ophthalmology in [place], [place] [address] [place] [phone] Justin Bunch M.D. [address] [place] [phone] Scheduled Referrals Name Type Priority Associated Diagnoses [...] Score: 4 06/06/19 23 2:04 PM LABOR RELATIONS OFFICER documented as of this encounter Care Teams Enterprise Applications Manager Relationship Specialty Start Date End Date Clover Delaney M.D. 701 [place] [phone] PCP - General Internal Medicine 11/23/17 documented as of this encounter
--- OUTSIDE RECORDS SUMMARY | 2023-10-06 10:28 | XMS_ITS | Encounter Summary ---
Author Organization [facility] Address [address] [place] [address] Care Team Providers Care Planting Material Carrier Name Role Phone Clover Delaney M.D. Primary Care Provider [phone] Reason for Visit * Outpatient (Routine) - Closed Specialty Diagnoses / Procedures Referred By Yenyn hunter Referred To Contact Nutrition Diagnoses Chronic Kidney Disease Stage 5 Glomerular Filtration Rate Less Than 15 (HCC) Sera Casiano M.D., Ph.D. [address] [place] [phone] [facility] Referral ID Status Reason Start Date Expiration Date Visits Re quested Visits Authorized [id number] Closed 06/26/2023 12/25/2024 1 1 Encounter Details Date Type Department Care Team (Latest Contact Info) Description 07/10/2023 1:00 PM CDT Comprehensive Visit Division of Nephrology and Hypertension in [place], [place] [address] [place] [phone] Sera Casiano M.D., Ph.D. 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 Nutrition Prescription/Recommendation 6624-9987 mg sodium; 75 g protein INTERVENTION Counseling: Discussed limiting sodium intake to 5246-5903 mg per day Encouraged continuing to limit [...] values within target range Plan/Patient Goal(s): 1. 2898-9135 mg sodium 2. 75 gm total protein [...] CDT Appointment Department of Laboratory Medicine in [address] [phone] Luis Carrion M.B.B.S. [address] [place] [phone] 10/15/2023 2:40 PM CDT Appointment Department of Laboratory Medicine in [address] [phone] Luis Carrion M.B.B.S. [address] [place] [phone] 10/15/2023 3:30 PM CDT Ancillary Procedure Department of Cardiovascular Diseases in [address] [phone] Clover Delaney M.D. [address] [place] [phone] Discharge Disposition: Home or Self Care 12/18/2023 9:00 AM CDT Clinical Communication Virtual Review in [place], [place] 200 [place] [address] 12/21/2023 9:15 AM CDT Ancillary Procedure Department of Ophthalmology in [place], [place] [address] [place] [phone] Justin Bunch M.D. [address] [place] [phone] 12/21/2023 9:45 AM CDT Ancillary Procedure Department of Ophthalmology in [address] [phone] Justin Bunch M.D. [address] [place] [phone] 12/21/2023 10:00 AM CDT Office Visit Department of Ophthalmology in [place], [place] [address] [place] [address] Justin Bunch M.D. 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 [address] [place] [phone] PCP - General Internal Medicine 11/23/17 documented as of this encounter
--- OUTSIDE RECORDS SUMMARY | 2023-10-06 10:28 | XMS_ITS | Encounter Summary ---
Author Organization [facility] Address [address] [place] [address] Care Team Providers Care Seed Corn Manager Production Name Role Phone Clover Delaney M.D. 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 [address] [place] [phone] [facility] Referral ID Status Reason Start Date Expiration Date Visits Re quested Visits Authorized [id number] Closed 06/26/2023 06/25/2024 1 1 Reason for Visit * Outpatient (Routine) - Closed Specialty Diagnoses / Procedures Referred By Yenny hunter Referred To Contact Diagnoses Chronic Kidney Disease Stage 5 Glomerular Filtration Rate Less Than 15 (HCC) Procedures US Upper Extremity Bilateral Dialysis Mapping Sera Casiano M.D., Ph.D. [address] [place] [phone] [facility] Referral ID Status Reason Start Date Expiration Date Visits Re quested Visits Authorized [id number] Closed 06/26/2023 06/25/2024 1 1 Encounter Details Date Type Department Care Team (Latest Contact Info) Description 07/29/2023 12:13 PM CDT - 07/29/2023 2:39 PM CDT Hospital Encounter Department of Radiology, [facility], in [place], [place] [address] [place] [address] Sera Casiano M.D., Ph.D. [address] [place] [address] Chronic Kidney Disease Stage 5 Glomerular Filtration [...] 2 05/28/2023 [facility] of Occupat ional [...] Assigned at Male 05/13/2021 10:11 AM MARKETING TECHNOLOGIST Gender Identity Male 11/02/2017 7:22 PM CDT [...] by mouth as needed. miscellaneous medical supply [facility] CPAP Supplies See Instructions, CPAP machine, mask 1 ea x 4 refills, headgear 1 ea x 2 refills, tubing 1 ea x 4 refills, filters 2 ea per month, tub 1 ea x 2 refills, mask seal 1 ea x 2 refills DX G47.33, length of need 99, 1 each, 0 Refill(s) 10/20/2016 miscellaneous medical supply [facility] Head Gear for CPAP Machine See Instructions, fax to patient at [phone], 1 each 01/17/2014 MULTIVITAMIN ORAL Daily Multiple Vitamins See Instructions, Take 1 tablet by mouth daily. 07/23/2013 ONETOUCH DELICA LANCETS 33 gauge [facility] 3 08/02/2018 OneTouch [...] Appointment Department of Laboratory Medicine in [address] [phone] Luis Carrion M.B.B.S. [address] [place] [phone] 10/15/2023 2:40 PM CDT Appointment Department of Laboratory Medicine in [address] [phone] Luis Carrion M.B.B.S. [address] [place] [phone] 10/15/2023 3:30 PM CDT Ancillary Procedure Department of Cardiovascular Diseases in [address] [phone] Clover Delaney M.D. [address] [place] [phone] Discharge Disposition: Home or Self Care 12/18/2023 9:00 AM CDT Clinical Communication Virtual Review in [place], [place] 200 [place] [address] 12/21/2023 9:15 AM CDT Ancillary Procedure Department of Ophthalmology in [place], [place] [address] [place] [phone] Justin Bunch M.D. [address] [place] [phone] 12/21/2023 9:45 AM CDT Ancillary Procedure Department of Ophthalmology in [address] [phone] Justin Bunch M.D. [address] [place] [phone] 12/21/2023 10:00 AM CDT Office Visit Department of Ophthalmology in [address] [address] Justin Bunch M.D. [address] [place] [phone] documented as of this encounter Procedures Procedure [...] X ) = not examined Procedure Note Brown, Prieto E, M.D. - 07/29/2023 EXAM: US UPPER EXTREMITY [...] Score: 4 06/06/19 23 2:04 PM MARKETING TECHNOLOGIST documented as of this encounter Care Teams Seed Corn Manager Production Relationship Specialty Start Date End Date Clover Delaney M.D. [address] [place] [phone] PCP - General Internal Medicine 11/23/17 documented as of this encounter
--- OUTSIDE RECORDS SUMMARY | 2023-10-06 10:28 | XMS_ITS | Encounter Summary ---
Author Organization [facility] Address [address] [place] [address] Care Team Providers Care Manager Mall Name Role Phone Clover Delaney M.D. Primary Care Provider [phone] Encounter Details Date Type Department Care Team (Late st Contact Info) Description 07/23/2023 Clinical Communication Division of Nephrology and Hypertension in [place], [place] [address] [place] [phone] Monica Ferreira, RMonster., C.M.S.R.N. [address] [place] [phone] Social History Tobacco Use Types Packs/Day Years [...] Sex Assigned at Male 05/13/2021 10:11 AM VACUUM FORM OPERATOR Gender Identity Male 11/02/2017 7:22 PM [...] CDT Appointment Department of Laboratory Medicine in [address] [phone] Luis Carrion M.B.B.S. [address] [place] [phone] 10/15/2023 2:40 PM CDT Appointment Department of Laboratory Medicine in [address] [phone] Luis Carrion M.B.B.S. [address] [place] [phone] 10/15/2023 3:30 PM CDT Ancillary Procedure Department of Cardiovascular Diseases in [address] [phone] Clover Delaney M.D. [address] [place] [phone] Discharge Disposition: Home or Self Care 12/18/2023 9:00 AM CDT Clinical Communication Virtual Review in [place], [place] 200 [place] [address] 12/21/2023 9:15 AM CDT Ancillary Procedure Department of Ophthalmology in [place], [place] [address] [place] [address] Justin Bunch M.D. [address] [place] [phone] 12/21/2023 9:45 AM CDT Ancillary Procedure Department of Ophthalmology in [place], [place] [address] [place] [phone] Justin Bunch M.D. [address] [place] [phone] 12/21/2023 10:00 AM CDT Office Visit Department of Ophthalmology in [place], [place] [address] [place] [phone] Justin Bunch M.D. [address] [place] [phone] documented as of this encounter Visit Diagnoses Not on filedocumented in this encounter Additional Health Concerns Assessment Noted Time PHQ-9 Depression Total Score: 4 06/06/19 23 2:04 PM VACUUM FORM OPERATOR documented as of this encounter Care Teams Manager Mall Relationship Specialty Start Date End Date Clover Delaney M.D. [address] [place] [phone] PCP - General Internal Medicine 11/23/17 documented as of this encounter
--- OUTSIDE RECORDS SUMMARY | 2023-10-06 10:28 | XMS_ITS | Encounter Summary ---
Author Organization [facility] Address [address] [place] [address] Care Team Providers Care Sales Branch Manager Name Role Phone Clover Delaney M.D. Primary Care Provider [phone] Reason for Visit * Reason Comments Med Refill Encounter Details Date Type Department Care Team (Late st Contact Info) Description 07/11/2023 Refill Division of Nephrology and Hypertension in [place], [place] [address] [place] [phone] Mónica Portillo, TRIXIE, C.N.P., M.S. [address] [place] [phone] Med Refill Social History Tobacco Use Types [...] Score 2 05/28/2023 [facility] Questionnaire [...] Sex Assigned at Male 05/13/2021 10:11 AM SIZER MACHINE Gender Identity Male 11/02/2017 7:22 PM CDT Sexual Orientation Straight 11/02/2017 7: 22 PM CDT documented as of this encounter Plan of Treatment Upcoming Encounters Date Type Department Care Team (Latest Contact Info) Description 10/15/2023 2:20 PM CDT Appointment Department of Laboratory Medicine in [address] [phone] Luis Carrion M.B.B.S. [address] [place] [phone] 10/15/2023 2:40 PM CDT Appointment Department of Laboratory Medicine in [address] [phone] Luis Carrion M.B.B.S. [address] [place] [phone] 10/15/2023 3:30 PM CDT Ancillary Procedure Department of Cardiovascular Diseases in [address] [phone] Clover Delaney M.D. [address] [place] [phone] Discharge Disposition: Home or Self Care 12/18/2023 9:00 AM CDT Clinical Communication Virtual Review in [address] [phone] 12/21/2023 9:15 AM CDT Ancillary Procedure Department of Ophthalmology in [address] [phone] Justin Bunch M.D. [address] [place] [phone] 12/21/2023 9:45 AM CDT Ancillary Procedure Department of Ophthalmology in [address] [phone] Justin Bunch M.D. [address] [place] [phone] 12/21/2023 10:00 AM CDT Office Visit Department of Ophthalmology in [place], [place] [address] [place] [address] Justin Bunch M.D. [address] [place] [address] documented as of this encounter Visit Diagnoses Not on filedocumented in this encounter Additional Health Concerns Assessment Noted Time PHQ-9 Depression Total Score: 4 06/06/19 23 2:04 PM SIZER MACHINE documented as of this encounter Care Teams Sales Branch Manager Relationship Specialty Start Date End Date Clover Delaney M.D. [address] [place] [phone] PCP - General Internal Medicine 11/23/17 documented as of this encounter
--- OUTSIDE RECORDS SUMMARY | 2023-10-06 10:28 | XMS_ITS | Encounter Summary ---
Author Organization [facility] Address [address] [place] [address] Care Team Providers Care Front Desk Manager Name Role Phone Clover Delaney M.D. 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 [address] [place] [phone] [facility] Referral ID Status Reason Start Date Expiration Date Visits Re quested Visits Authorized [id number] Closed 06/30/2023 06/29/2024 1 1 Encounter Details Date Type Department Care Team (Latest Contact Info) Description 07/29/2023 10:52 AM CDT - 07/29/2023 12:12 PM CDT Hospital Encounter Department of Radiology, [facility], in [place], [place] [address] [place] [address] Sera Casiano M.D., Ph.D. 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 miscellaneous medical supply [facility] CPAP Supplies See Instructions, CPAP machine, mask 1 ea x 4 refills, headgear 1 ea x 2 refills, tubing 1 ea x 4 refills, filters 2 ea per month, tub 1 ea x 2 refills, mask seal 1 ea x 2 refills DX G47.33, length of need 99, 1 each, 0 Refill(s) 10/20/[facility] Head Gear for CPAP Machine See Instructions, fax to patient at [phone], 1 each 01/17/2014 MULTIVITAMIN ORAL Daily Multiple Vitamins See Instructions, Take 1 tablet by mouth daily. 07/23/2013 ONETOUCH DELICA LANCETS 33 gauge [facility] 3 08/02/2018 OneTouch Ultra Test StripsIndications:Diabet es [...] Appointment Department of Laboratory Medicine in [address] [phone] Luis Carrion M.B.BJosé LuisS. [address] [place] [address] 10/15/2023 2:40 PM CDT Appointment Department of Laboratory Medicine in [address] [phone] Luis Carrion M.B.B.S. [address] [place] [phone] 10/15/2023 3:30 PM CDT Ancillary Procedure Department of Cardiovascular Diseases in [address] [phone] Clover Delaney M.D. [address] [place] [phone] Discharge Disposition: Home or Self Care 12/18/2023 9:00 AM CDT Clinical Communication Virtual Review in [address] [phone] 12/21/2023 9:15 AM CDT Ancillary Procedure Department of Ophthalmology in [address] [phone] Justin Bunch M.D. [address] [place] [phone] 12/21/2023 9:45 AM CDT Ancillary Procedure Department of Ophthalmology in [address] [phone] Justin Bunch M.D. [address] [place] [phone] 12/21/2023 10:00 AM CDT Office Visit Department of Ophthalmology in [address] [phone] Justin Bunch M.D. [address] [place] [phone] documented as of this encounter Procedures Procedure [...] Total Score: 4 06/06/19 23 2:04 PM ANODIC TREATER documented as of this encounter Care Teams Front Desk Manager Relationship Specialty Start Date End Date Clover Delaney M.D. [address] [place] [phone] PCP - General Internal Medicine 11/23/17 documented as of this encounter
--- OUTSIDE RECORDS SUMMARY | 2023-10-06 10:28 | XMS_ITS | Encounter Summary ---
Author Organization [facility] Address [address] [place] [address] Care Team Providers Care Sugar Laboratory Assistant Name Role Phone Clover Delaney M.D. Primary Care Provider [phone] Encounter Details Date Type Department Care Team (Latest Contact Info) Description 07/06/2023 9:06 AM CDT - 07/06/2023 11:59 PM CDT Hospital Encounter Department of Laboratory Medicine in [address] [place] [phone] Sera Casiano M.D., Ph.D. [address] [place] [address] Hypertension And Chronic Kidney Disease Stage 5 [...] How often do you attend chur or rastafari services? Never 07/28/2022 Do you [...] Answer Date Recorded PHQ-2 Score 2 05/28/2023 [facility] Advance of Occupat ional Health - Occupational Stress [...] Assigned at Male 05/13/2021 10:11 AM OPERATIONS LEAD Gender Identity Male 11/02/2017 7:22 PM [...] mouth as needed. miscellaneous medical supply [facility] CPAP Supplies See Instructions, CPAP machine, mask 1 ea x 4 refills, headgear 1 ea x 2 refills, tubing 1 ea x 4 refills, filters 2 ea per month, tub 1 ea x 2 refills, mask seal 1 ea x 2 refills DX G47.33, length of need 99, 1 each, 0 Refill(s) 10/20/2016 miscellaneous medical supply [facility] Head Gear for CPAP Machine See Instructions, fax to patient at [phone], 1 each 01/17/2014 MULTIVITAMIN ORAL Daily Multiple [...] Appointment Department of Laboratory Medicine in [address] [address] Luis Carrion, Emma.B.B.S. [address] [place] [phone] 10/15/2023 2:40 PM CDT Appointment Department of Laboratory Medicine in [address] [address] Luis Carrion M.B.B.S. [address] [place] [phone] 10/15/2023 3:30 PM CDT Ancillary Procedure Department of Cardiovascular Diseases in [address] [phone] Clover Delaney M.D. [address] [place] [phone] Discharge Disposition: Home or Self Care 12/18/2023 9:00 AM CDT Clinical Communication Virtual Review in [place], [place] [address] [place] [address] 12/21/2023 9:15 AM CDT Ancillary Procedure Department of Ophthalmology in [place], [place] [address] [place] [phone] Justin Bunch M.D. [address] [place] [phone] 12/21/2023 9:45 AM CDT Ancillary Procedure Department of Ophthalmology in [place], [place] [address] [place] [phone] Justin Bunch M.D. [address] [place] [phone] 12/21/2023 10:00 AM CDT Office Visit Department of Ophthalmology in [place], [place] [address] [place] [phone] Justin Bunch M.D. [address] [place] [phone] documented as of this encounter Procedures Procedure [...] Performing Organization Address City/[facility] Co de Phone Number [facility] [address] [place] [address], [facility] RDWG [facility] in [address] [phone] * (ABNORMAL) Protein/Creatinine Ratio, Random, Urine (07/06/2023 [...] Performing Organization Address City/[facility] Co de Phone Number [facility] [address] [place] [address], [facility] RDWG [facility] in [address] [address] * (ABNORMAL) Urinalysis, with Microscopic: Urine, Midstream [...] 8.0 07/06/2023 12:06 PM CDT RDWG Specific [place] 1.013 1.001 - 1.035 07/06/2023 12:06 PM [...] Hyman M.D., Ph.D. LAB UR INE ORDERABLES [facility] [address] [place] [address], [facility] [place] [address] [place] [phone] documented in this encounter Visit Diagnoses Diagnosis Hypertensive Chronic Kidney Disease With Stage 5 Chronic Kidney Disease Or End Stage Renal Disease, Chronic Kidney Disease Stage 5 (HCC) Proteinuria 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 documented in this encounter Additional Health Concerns Assessment Noted Time PHQ-9 Depression Total Score: 4 06/06/19 23 2:04 PM OPERATIONS LEAD documented as of this encounter Care Teams Sugar Laboratory Assistant Relationship Specialty Start Date End Date Clover Delaney M.D. [address] [place] [phone] PCP - General Internal Medicine 11/23/17 documented as of this encounter
--- OUTSIDE RECORDS SUMMARY | 2023-10-06 10:28 | XMS_ITS | Encounter Summary ---
Author Organization [facility] Address [address] [place] [address] Care Team Providers Care Manager Corporate Responsibility Name Role Phone Clover Delaney M.D. Primary Care Provider [phone] Encounter Details Date Type Department Care Team (Latest Contact Info) Description 07/06/2023 9:06 AM CDT - 07/06/2023 11:59 PM CDT Hospital Encounter Department of Laboratory Medicine in [address] [place] [phone] Sera Casiano M.D., Ph.D. [address] [place] [address] Hypertension And Chronic Kidney Disease Stage 5 [...] Date Recorded PHQ-2 Score 2 05/28/2023 [facility] [place] of Occupat ional Health - Occupational Stress [...] Sex Assigned at Male 05/13/2021 10:11 AM PARADI OPERATOR Gender Identity Male 11/02/2017 7:22 PM [...] by mouth as needed. miscellaneous medical supply [facility] [place] [place] CPAP Supplies See Instructions, CPAP machine, mask 1 ea x 4 refills, headgear 1 ea x 2 refills, tubing 1 ea x 4 refills, filters 2 ea per month, tub 1 ea x 2 refills, mask seal 1 ea x 2 refills DX G47.33, length of need 99, 1 each, 0 Refill(s) 10/20/2016 miscellaneous medical supply [facility] [place] Head Gear for CPAP Machine See Instructions, fax to patient at [phone], 1 each 01/17/2014 MULTIVITAMIN ORAL Daily Multiple [...] CDT Appointment Department of Laboratory Medicine in [address] [address] Luis Carrion, Emma.B.B.S. [address] [place] [phone] 10/15/2023 2:40 PM CDT Appointment Department of Laboratory Medicine in [address] [phone] Luis Carrion M.B.B.S. [address] [place] [phone] 10/15/2023 3:30 PM CDT Ancillary Procedure Department of Cardiovascular Diseases in [address] [phone] Clover Delaney M.D. [address] [place] [phone] Discharge Disposition: Home or Self Care 12/18/2023 9:00 AM CDT Clinical Communication Virtual Review in [place], [place] 200 [place] [address] 12/21/2023 9:15 AM CDT Ancillary Procedure Department of Ophthalmology in [place], [place] [address] [place] [phone] Justin Bunch M.D. [address] [place] [phone] 12/21/2023 9:45 AM CDT Ancillary Procedure Department of Ophthalmology in [place], [place] [address] [place] [phone] Justin Bunch M.D. [address] [place] [phone] 12/21/2023 10:00 AM CDT Office Visit Department of Ophthalmology in [place], [place] [address] [place] [phone] Justin Bunch M.D. [address] [place] [phone] documented as of this encounter Procedures Procedure [...] Comment: Biotin has been identified by the edge brusher as a potential interfering substance. Higher concentrations of biotin may be found in multivitamins, hair/nail supplements, and workout supplements. If the result does not match clinical observations, repeat testing after patient refrains from the use of supplements for at least 12 hours. Blood (Blood, Venous) 07/06/2023 9:22 AM CDT 07/06/2023 11:51 AM CDT Sera Hyman M.D., Ph.D. LAB BL OOD ADD-ON [facility] [address] [place] [address], [facility] RDWG [facility] in [address] [phone] * (ABNORMAL) Iron and Total Iron-Binding Capacity [...] Hyman M.D., Ph.D. LAB BL OOD ADD-ON [facility] [address] [place] [address], [place] RDWG [facility] in [place] [address] [place] [address] * (ABNORMAL) CBC with Differential, Blood (07/06/2023 9:22 AM CDT) [facility] Hemoglobin 7.4(L) 13.2 - 16.6 g/dL 07/06/2023 [...] Hyman M.D., Ph.D. LAB BL OOD ADD-ON [facility] [address] [place] [address], [facility] RDWG [facility] in [place] [address] [address] * (ABNORMAL) Uric Acid (07/06/2023 9:22 AM CDT) Uric Acid, P 10.4(H) 3.7 - 8.0 mg/dL 07/06/2023 12:35 PM CDT RDWG Blood (Blood, Venous) 07/06/2023 9:22 AM CDT 07/06/2023 11:51 AM CDT Sera Hyman M.D., Ph.D. LAB BL OOD ADD-ON Performing Organization Address City/[facility]/ZIP Co de Phone Number [facility] [address] [address], [facility] RDWRainy Lake [facility] in [place] [address] [place] [address] * (ABNORMAL) Cystatin C with Estimated GFR [...] Hyman M.D., Ph.D. LAB BL OOD ADD-ON [facility] [address] [place] [address], [facility] DTOsce[facility] [address] [place] [address] * (ABNORMAL) Renal Function Panel (07/06/2023 9:22 [...] Hyman M.D., Ph.D. LAB BL OOD ADD-ON [facility] [address] [place] [address], [facility] RDWG [facility] in [place] [address] [place] [address] documented in this encounter Visit Diagnoses Diagnosis Hypertensive Chronic Kidney Disease With Stage 5 Chronic Kidney Disease Or End Stage Renal Disease, Chronic Kidney Disease Stage 5 (HCC) Proteinuria 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 documented in this encounter Additional Health Concerns Assessment Noted Time PHQ-9 Depression Total Score: 4 06/06/19 23 2:04 PM PARADI OPERATOR documented as of this encounter Care Teams Manager Corporate Responsibility Relationship Specialty Start Date End Date Clover Delaney M.D. [address] [place] [phone] PCP - General Internal Medicine 11/23/17 documented as of this encounter
--- OUTSIDE RECORDS SUMMARY | 2023-10-06 10:29 | XMS_ITS | Encounter Summary ---
Author Organization [facility] Address [address] [place] [address] Care Team Providers Care Hydrator Name Role Phone Clover Delaney M.D. Primary Care Provider [phone] Reason for Visit * Reason Onset Date Comments Clarification on Aranesp 06/04/2023 Encounter Details Date Type Department Care Team (Latest Contact Info) Description 06/04/2023 Clinical Communication Division of Nephrology and Hypertension in [place], [place] [address] [place] [address] Sera Casiano M.D., Ph.D. [address] [place] [address] Clarification on [facility] Social History Tobacco Use Types Packs/Day [...] PHQ-2 Score 2 05/28/2023 [facility]ational [facility] Questionnaire [...] at Male 05/13/2021 10:11 AM SPECIAL EDUCATION CASE MANAGER Gender Identity Male 11/02/2017 7:22 PM CDT Sexual Orientation Straight 11/02/2017 7: 22 PM CDT documented as of this encounter Miscellaneous Notes * Telephone Encounter - Kirstie Ramirez - 06/04/2023 8:18 AM CST Caller is: other: Authorization YES Preferred Communication Method: [phone] Reason for call: Cintia [facility] [place] called regarding the Aranesp order that they receivedfrom Dr. North for Mr. Patel. They need parameters on when to give the medication as well as whether Dr. North wants them to check hemoglobin every time and then give Aranesp if below 10, or just give without doing labs. IAL EDUCATION CASE MANAGER documented in this encounter Plan of Treatment Upcoming Encounters Date Type Department Care Team (Latest Contact Info) Description 10/15/2023 2:20 PM CDT Appointment Department of Laboratory Medicine in [address] [phone] Luis Carrion M.B.B.S. [address] [place] [phone] 10/15/2023 2:40 PM CDT Appointment Department of Laboratory Medicine in [address] [phone] Luis Carrion M.B.B.S. [address] [place] [phone] 10/15/2023 3:30 PM CDT Ancillary Procedure Department of Cardiovascular Diseases in [address] [phone] Clover Delaney M.D. [address] [place] [phone] Discharge Disposition: Home or Self Care 12/18/2023 9:00 AM CDT Clinical Communication Virtual Review in [address] [phone] 12/21/2023 9:15 AM CDT Ancillary Procedure Department of Ophthalmology in [place], [place] [address] [place] [address] Justin Bunch M.D. [address] [place] [phone] 12/21/2023 9:45 AM CDT Ancillary Procedure Department of Ophthalmology in [place], [place] [address] [place] [phone] Justin Bunch M.D. [address] [place] [phone] 12/21/2023 10:00 AM CDT Office Visit Department of Ophthalmology in [place], [place] [address] [place] [phone] Justin Bunch M.D. [address] [place] [phone] documented as of this encounter Visit Diagnoses Not on filedocumented in this encounter Additional Health Concerns Assessment Noted Time PHQ-9 Depression Total Score: 4 06/06/19 23 2:04 PM SPECIAL EDUCATION CASE MANAGER documented as of this encounter Care Teams Hydrator Relationship Specialty Start Date End Date Clover Delaney M.D. [address] [place] [phone] PCP - General Internal Medicine 11/23/17 documented as of this encounter
--- OUTSIDE RECORDS SUMMARY | 2023-10-06 10:29 | XMS_ITS | Encounter Summary ---
Author Organization [facility] Address [address] [place] [address] Care Team Providers Care Manager Call Name Role Phone Clover Dealney M.D. 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 [address] [place] [phone] [facility] Referral ID Status Reason Start Date Expiration Date Visits Re quested Visits Authorized [id number] Closed 06/30/2023 12/29/2024 1 1 ORDER CLERK Encounter Details Date Type Department Care Team (Late st Contact Info) Description 06/30/2023 Orders Only Division of Nephrology and Hypertension in [place], [place] [address] [place] [address] Sera Casiano M.D., Ph.D. 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 200 [place] [address] 10/15/2023 2:40 PM CDT Appointment Department of Laboratory Medicine in [address] [address] Luis Carrion M.B.B.S. 200 [place] [address] 10/15/2023 3:30 PM CDT Ancillary Procedure Department of Cardiovascular Diseases in [address] [phone] Clover Delaney M.D. [address] [place] [phone] Discharge Disposition: Home or Self Care 12/18/2023 9:00 AM CDT Clinical Communication Virtual Review in [place], [place] 200 [place] [address] 12/21/2023 9:15 AM CDT Ancillary Procedure Department of Ophthalmology in [address] [address] Justin Bunch M.D. [address] [place] [phone] 12/21/2023 9:45 AM CDT Ancillary Procedure Department of Ophthalmology in [address] [address] Justin Bunch M.D. [address] [place] [phone] 12/21/2023 10:00 AM CDT Office Visit Department of Ophthalmology in [address] [phone] Justin Bunch M.D. [address] [place] [phone] Scheduled Referrals Name Type Priority Associated Diagnoses [...] the upper pole of the left kidney ([id number]). Hypertrophic changes in the spine. Mild degenerative [...] 07/29/2023 11:44 AM CDT DTL Predicted Range 2563-02648 mg/24 h 07/29/2023 11:44 AM CDT DTL Comment Micro done on <10 mL 07/29/2023 1:01 PM CDT DTL Urine (Urine, Midstream) 07/29/2023 10:27 AM CDT 07/29/2023 10:35 AM CDT Sera Hyman M.D., Ph.D. LAB UR INE ORDERABLES Performing Organization Address City/[facility]/ZIP Co de Phone Number [facility] [address] [place] [address], [facility]TM[facility] [place] [address] [place] [address] * (ABNORMAL) Uric Acid (07/29/2023 10:17 AM CDT) Uric Acid, S 11.2(H) 3.7 - 8.0 mg/dL 07/29/2023 12:32 PM CDT DTL Blood (Blood, Venous) 07/29/2023 10:17 AM CDT 07/29/2023 10:55 AM CDT Sera Hyman M.D., Ph.D. LAB BL OOD ADD-ON [facility] [address] [place] [address], [facility] [address] [place] [address] * Phosphorus Inorganic (07/29/2023 10:17 AM CDT) Phosphorus (Inorganic), S 4.5 2.5 - 4.5 mg/dL 07/29/2023 12:32 PM CDT DTL Blood (Blood, Venous) 07/29/2023 10:17 AM CDT 07/29/2023 10:55 AM CDT Sera Hyman M.D., Ph.D. LAB BL OOD ADD-ON Performing Organization Address City/[facility]/ZIP Co de Phone Number [facility] [address] [place] [address], [facility] [address] [place] [address] * (ABNORMAL) Glucose, Fasting (07/29/2023 10:17 AM CDT) Pathologist [facility] Glucose, P 256(H) 70 - 100 mg/dL 07/29/2023 11:15 AM CDT DTL Last Intake 16 hr 07/29/2023 10:52 AM CDT DT Blood (Blood, Venous) 07/29/2023 10:17 AM CDT 07/29/2023 10:52 AM CDT Sera Hyman M.D., Ph.D. LAB BL OOD NON ADD-ON [facility] [address] [place] [address], [facility] [address] [place] [address] * CRP (C-Reactive Protein) (07/29/2023 10:17 AM CDT) C-Reactive Protein (CRP), S <3.0 <5.0 mg/L 07/29/2023 12:32 PM CDT DTL Blood (Blood, Venous) 07/29/2023 10:17 AM CDT 07/29/2023 10:55 AM CDT Sera Hyman M.D., Ph.D. LAB BL OOD ADD-ON [facility] [address] [place] [address], [facility] DTL [facility] [address] [place] [address] * (ABNORMAL) Comprehensive Metabolic Panel (07/29/2023 10:17 [...] Hyman M.D., Ph.D. LAB BL OOD ADD-ON [facility] [address] [place] [address], [facility]TM[facility] [place] [address] [place] [address] * (ABNORMAL) CBC with Differential, Blood (07/29/2023 10:17 AM CDT) [facility] Hemoglobin 8.2(L) 13.2 - 16.6 g/dL 07/29/2023 [...] Hyman M.D., Ph.D. LAB BL OOD ADD-ON [facility] [address] [place] [address], [facility] DTL [facility] [address] [place] [address] [facility] [address] [place] [address] * ANCA (Antineutrophil Cytoplasmic Antibodies) Vasculitis Panel (07/29/2023 10:17 AM CDT) Myeloperoxidase Ab, S <0.2 <0.4 (Negative ) U 07/29/2023 4:45 PM CDT [facility] Proteinase 3 Ab (PR3), S <0.2 <0.4 (Negative ) U 07/29/2023 4:45 PM CDT [facility] Blood (Blood, Venous) 07/29/2023 10:17 AM CDT 07/29/2023 2:52 PM CDT Sera Hyman M.D., Ph.D. LAB BL OOD ADD-ON [facility] [address] [place] [address] [facility] [address] [place] [address] * Pulmonary Function Tests (07/29/2023 9:02 AM CDT) FVC 2.15 L 07/29/2023 10:32 AM CDT [facility] FEV1 1.56 L 07/29/2023 10:32 AM CDT [facility] FEV1/FVC 72.56 % 07/29/2023 10:32 AM CDT [facility] NWW42-54% 1.03 L/s 07/29/2023 10:32 AM CDT [facility] PEF PRE 5.91 L/s 07/29/2023 10:32 AM CDT [facility] PIF PRE 3.35 L/s 07/29/2023 10:32 AM CDT [facility] FEF 50 % FIF 50 PRE 54.00 % 07/29/2023 10:32 AM CDT [facility] FET PRE 9.49 sec 07/29/2023 10:32 AM CDT [facility] DLCO 10.65 ml/(min*mm Hg) 07/29/2023 10:32 AM CDT [facility] DLCOc 14.91 ml/(min*mm Hg) 07/29/2023 10:32 AM CDT [facility] HB 7.40 g(Hb)/dL 07/29/2023 10:32 AM CDT [facility] VA 4.05 L 07/29/2023 10:32 AM CDT [facility] PulseRest 50.00 1/min 07/29/2023 10:32 AM CDT [facility] TLC 4.43 L 07/29/2023 10:32 AM CDT [facility] FRCPLETH PROVBASE 2.72 L 07/29/2023 10:32 AM CDT [facility] RV 1.96 L 07/29/2023 10:32 AM CDT [facility] RV % TLC PRE 44.12 % 07/29/2023 10:32 AM CDT [facility] 07/29/2023 9:02 AM CDT Impressions [facility] - 07/29/2023 10:32 AM CDT Abnormal [...] Sera Hyman M.D., Ph.D. 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 [address] [place] [phone] PCP - General Internal Medicine 11/23/17 documented as of this encounter
--- OUTSIDE RECORDS SUMMARY | 2023-10-06 10:29 | XMS_ITS ---
Author Organization [facility] Address [address] [place] [address] Care Team Providers Care Tenter Frame Operator Name Role Phone Clover Delaney M.D. Primary Care Provider [phone] Kidney Ironworker Foreman Program Status:Identified (Enrolling) Start date:04/01/2023 Continued Care and Services Coordination
--- OUTSIDE RECORDS SUMMARY | 2023-10-06 10:29 | XMS_ITS | Encounter Summary ---
Author Organization [facility] Address [address] [place] [address] Care Team Providers Care Quilting Machine Operator Name Role Phone Clover Delaney M.D. Primary Care Provider [phone] Reason for Referral * Outpatient (Routine) - Authorized Specialty Diagnoses / Procedures Referred By Yenny hunter Referred To Contact Endocrinology Diagnoses Diabetes Mellitus Type 2 (HCC) Cammy Silva M.D. [address] [place] [address] [facility] Referral ID Status Reason Start Date Expiration Date V isits Requested Visits Authorized [id number] Authorized 06/29/2023 12/28/2024 1 1 WORKER * Medication Prior Authorization - Closed Specialty Diagnoses / Procedures Referred By Yenny hunter Referred To Contact Diagnoses Morbid Obesity (HCC) Cammy Silva M.D. [address] [place] [address] Referral ID Status Reason Start Date Expiration Date Visits Re quested Visits Authorized [id number] Closed 1 1 WORKER * Medication Prior Authorization - Authorized Specialty Diagnoses / Procedures Referred By Contac t Referred To Contact Diagnoses Morbid Obesity (HCC) Cammy Silva M.D. [address] [place] [phone] Referral ID Status Reason Start Date Expiration Date V isits Requested Visits Authorized [id number] Authorized 07/01/2023 06/30/2024 1 1 WORKER * Medication Prior Authorization - Closed Specialty Diagnoses / Procedures Referred By Yenny t Referred To Contact Diagnoses Morbid Obesity (HCC) Cammy Silva M.D. [address] [place] [phone] Referral ID Status Reason Start Date Expiration Date Visits Re quested Visits Authorized [id number] Closed 1 1 WORKER * Medication Prior Authorization - Closed Specialty Diagnoses / Procedures Referred By Yenny hunter Referred To Contact Diagnoses Morbid Obesity (HCC) Cammy Silva M.D. [address] [place] [phone] Referral ID Status Reason Start Date Expiration Date Visits Re quested Visits Authorized [id number] Closed 1 1 WORKER * Specialty Diagnoses / Procedures Referred By Contanthony t Referred To Contact Cammy Silva M.D. [address] [place] [phone] [facility] Referral ID Status Reason Start Date Expiration Date Visits Re quested Visits Authorized WORKER Reason for Visit * Outpatient (Routine) - Closed Specialty Diagnoses / Procedures Referred By Contac t Referred To Contact Endocrinology Diagnoses Hypertensive Chronic Kidney Disease With Stage 5 Chronic Kidney Disease Or End Stage Renal Disease, Chronic Kidney Disease Stage 5 (HCC) Proteinuria Sera Casiano M.D., Ph.D. [address] [place] [phone] [facility] Referral ID Status Reason Start Date Expiration Date Visits Re quested Visits Authorized [id number] Closed 05/29/2023 11/27/2024 1 1 Encounter Details Date Type Department Care Team (Latest Contact Info) Description 06/29/2023 1:30 PM ASH WORKER Comprehensive Visit Division of Endocrinology in [place], [place] [address] [place] [phone] Sera Casiano M.D., Ph.D. [address] [place] [phone] Cammy Silva M.D. [address] [place] [phone] Diabetes Mellitus Type 2 (HCC) (Primary [...] Sex Assigned at Male 05/13/2021 10:11 AM ASH WORKER Gender Identity Male 11/02/2017 7:22 PM [...] lb 14.4 oz) 06/29/2023 1:19 P M ASH WORKER in shoes Height 176.9 cm (5' 9.65) 06/29/2023 1:19 PM CS T in shoes Body Mass Index 50.14 06/29/2023 1:19 PM ASH WORKER documented in this encounter Consult Notes * Cammy Silva M.D. - 06/29/2023 1:30 PM CST SUBJECTIVE CHIEF COMPLAINT / REASON FOR VISIT Philip Patel is a 77 y.o. male who presents for an evaluation of diabetes mellitus. HISTORY OF PRESENT ILLNESS This is a 77 year old male who comes with his from [place], [place] who has CKD stage 5, granulomatous [...] mg daily. He has been prescribed CGM [employer] Brionna 2 but unfortunately he has experienced difficulties obtaining data from [employer]. He has checked his capillary glucose through [...] been following regularly with Ophthalmology here at [place]. Last visit on 06/15/2023. The following portions [...] times a week at fasting - PGA professor/nurse anesthetist for sick day discussion in the setting [...] with plan. Case seen and discussed with Breast Buffer Dr. Ochoa. Cammy Jacques MD Endocrinology Fellow Pager [phone] WORKER Associated attestation - Edmundo Ochoa M.D. - 06/29/2023 4:08 PM ASH WORKER I saw and evaluated the patient, participating in the thakkar portions of the service. I reviewed the fellow???s note. I agree with the fellow???s findings and plan. documented in this encounter Plan of Treatment Upcoming Encounters Date Type Department Care Team (Latest Contact Info) Description 10/15/2023 2:20 PM CDT Appointment Department of Laboratory Medicine in [address] [phone] Luis Carrion M.B.B.S. [address] [place] [phone] 10/15/2023 2:40 PM CDT Appointment Department of Laboratory Medicine in [address] [address] Luis Carrion M.B.B.S. [address] [place] [phone] 10/15/2023 3:30 PM CDT Ancillary Procedure Department of Cardiovascular Diseases in [address] [phone] Clover Delaney M.D. [address] [place] [phone] Discharge Disposition: Home or Self Care 12/18/2023 9:00 AM CDT Clinical Communication Virtual Review in [address] [phone] 12/21/2023 9:15 AM CDT Ancillary Procedure Department of Ophthalmology in [address] [address] Justin Bunch M.D. [address] [place] [phone] 12/21/2023 9:45 AM CDT Ancillary Procedure Department of Ophthalmology in [place], [place] [address] [place] [address] Justin Bunch M.D. [address] [place] [phone] 12/21/2023 10:00 AM CDT Office Visit Department of Ophthalmology in [place], [place] [address] [place] [address] Jutsin Bunch M.D. [address] [place] [phone] Scheduled Orders Name Type Priority Associated Diagnoses [...] Total Score: 4 06/06/19 23 2:04 PM ASH WORKER documented as of this encounter Care Teams Quilting Machine Operator Relationship Specialty Start Date End Date Clover Delaney M.D. [address] [phone] PCP - General Internal Medicine 11/23/17 documented as of this encounter
--- OUTSIDE RECORDS SUMMARY | 2023-10-06 10:29 | XMS_ITS | Encounter Summary ---
Author Organization [facility] Address [address] [place] [address] Care Team Providers Care Paginator Name Role Phone Clover Delaney M.D. Primary Care Provider [phone] Encounter Details Date Type Department Care Team (Latest Contact Info) Description 06/29/2023 11:47 AM SANITATION LEAD - 06/29/2023 11:59 PM SANITATION LEAD Hospital Encounter Department of Laboratory Medicine and Pathology, [facility], in [place], [place] [address] [place] [phone] Sera Casiano M.D., Ph.D. [address] [place] [phone] Hyperkalemia; Anemia Of Renal Failure Chronic Kidney [...] Answer Date Recorded PHQ-2 Score 2 05/28/2023 [facility] of Occupat ional Health - Occupational Stress [...] Sex Assigned at Male 05/13/2021 10:11 AM SANITATION LEAD Gender Identity Male 11/02/2017 7:22 PM [...] by mouth as needed. miscellaneous medical supply [facility] CPAP Supplies See Instructions, CPAP machine, mask 1 ea x 4 refills, headgear 1 ea x 2 refills, tubing 1 ea x 4 refills, filters 2 ea per month, tub 1 ea x 2 refills, mask seal 1 ea x 2 refills DX G47.33, length of need 99, 1 each, 0 Refill(s) 10/20/2016 [facility] Head Gear for CPAP Machine See Instructions, fax to patient at [phone], 1 each 01/17/2014 MULTIVITAMIN ORAL Daily Multiple Vitamins See Instructions, Take 1 tablet by mouth daily. 07/23/2013 ONETOUCH DELICA LANCETS 33 gauge [facility] 3 08/02/2018 OneTouch Ultra Test StripsIndications:Diabet es [...] Appointment Department of Laboratory Medicine in [address] [phone] Luis Carrion M.B.B.S. [address] [place] [phone] 10/15/2023 2:40 PM CDT Appointment Department of Laboratory Medicine in [address] [phone] Luis Carrion M.B.B.S. [address] [place] [phone] 10/15/2023 3:30 PM CDT Ancillary Procedure Department of Cardiovascular Diseases in [address] [phone] Clover Delaney M.D. [address] [place] [phone] Discharge Disposition: Home or Self Care 12/18/2023 9:00 AM CDT Clinical Communication Virtual Review in [place], [place] 200 [place] [address] 12/21/2023 9:15 AM CDT Ancillary Procedure Department of Ophthalmology in [place], [place] [address] [place] [address] Justin Bunch M.D. [address] [place] [phone] 12/21/2023 9:45 AM CDT Ancillary Procedure Department of Ophthalmology in [place], [place] [address] [place] [address] Justin Bunch M.D. [address] [place] [phone] 12/21/2023 10:00 AM CDT Office Visit Department of Ophthalmology in [place], [place] [address] [place] [address] Jutsin Bunch M.D. [address] [place] [phone] documented as of this encounter Procedures Procedure Name Priority Date/Time Associated Diagnosis Comments RENAL FUNCTION PANEL, S Routine 06/29/2023 12:11 PM SANITATION LEAD Hyperkalemia IRON AND TOT IRON-BINDING CAPACITY, S/P Routine 06/29/2023 12:11 PM SANITATION LEAD 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 FERRITIN, S Routine 06/29/2023 12:11 PM SANITATION LEAD 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 documented in this encounter Results * (ABNORMAL) Ferritin (06/29/2023 12:11 PM SANITATION LEAD) Ferritin, S 487(H) 31 - 409 mcg/L 06/29/2023 1:44 PM SANITATION LEAD DTL Blood (Blood, Venous) 06/29/2023 12:11 PM SANITATION LEAD 06/29/2023 12:47 PM SANITATION LEAD Sera Hyman M.D., Ph.D. LAB BL OOD ADD-ON [facility] 200 [place] [address], [facility] [place] [address] [place] [address] * (ABNORMAL) Iron and Total Iron-Binding Capacity (06/29/2023 12:11 PM SANITATION LEAD) Pathologist [facility] Iron 51 50 - 150 mcg/dL 06/29/2023 1:44 PM SANITATION LEAD DTL Total Iron Binding Capacity 221(L) 250 - 400 mcg/dL 06/29/2023 1:44 PM SANITATION LEAD DTL Percent Saturation 23 14 - 50 % 06/29/2023 1:44 PM SANITATION LEAD DTL Blood (Blood, Venous) 06/29/2023 12:11 PM SANITATION LEAD 06/29/2023 12:47 PM SANITATION LEAD Sera Hyman M.D., Ph.D. LAB BL OOD ADD-ON [facility] 200 [place] [address], [facility] [place] [address] [place] [address] * (ABNORMAL) Renal Function Panel (06/29/2023 12:11 PM SANITATION LEAD) Pathologist [facility] Potassium, S 4.5 3.6 - 5.2 mmol/L 06/29/2023 1:44 PM SANITATION LEAD DTL Sodium, S 143 135 - 145 mmol/L 06/29/2023 1:44 PM SANITATION LEAD DTL Chloride, S 104 98 - 107 mmol/L 06/29/2023 1:44 PM SANITATION LEAD DTL Bicarbonate, S 24 22 - 29 mmol/L 06/29/2023 1:44 PM SANITATION LEAD DTL Anion Gap 15 7 - 15 06/29/2023 1:44 PM SANITATION LEAD DTL BUN (Blood Urea Nitrogen), S 69(H) 8 - 24 mg/dL 06/29/2023 1:44 PM SANITATION LEAD DTL Creatinine 4.51(H) 0.74 - 1.35 mg/dL 06/29/2023 1:44 PM SANITATION LEAD DTL Estimated GFR (eGFR) <15(L) >=60 mL/min/BSA 06/29/2023 1:44 PM SANITATION LEAD DTL Comment: Estimated GFR calculated using the 2020 CKD_EPI creatinine equation. Calcium, Total, S 8.5(L) 8.8 - 10.2 mg/dL 06/29/2023 1:44 PM SANITATION LEAD DTL Glucose, S 97 70 - 140 mg/dL 06/29/2023 1:44 PM SANITATION LEAD DTL Albumin, S 4.0 3.5 - 5.0 g/dL 06/29/2023 1:44 PM SANITATION LEAD DTL Phosphorus (Inorganic), S 4.9(H) 2.5 - 4.5 mg/dL 06/29/2023 1:44 PM SANITATION LEAD DTL Blood (Blood, Venous) 06/29/2023 12:11 PM SANITATION LEAD 06/29/2023 12:47 PM SANITATION LEAD Sera Hyman M.D., Ph.D. LAB BL OOD ADD[facility]ON [facility] 200 [place] [address], [facility] 200 [place] [address] documented in this encounter Visit Diagnoses Diagnosis Hyperkalemia 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 documented in this encounter Additional Health Concerns Assessment Noted Time PHQ-9 Depression Total Score: 4 06/06/19 23 2:04 PM SANITATION LEAD documented as of this encounter Care Teams Paginator Relationship Specialty Start Date End Date Clover Delaney M.D. [address] [place] [address] PCP - General Internal Medicine 11/23/17 documented as of this encounter
--- OUTSIDE RECORDS SUMMARY | 2023-10-06 10:29 | XMS_ITS | Encounter Summary ---
Author Organization [facility] Address [address] [place] [address] Care Team Providers Care Database Security Administrator Name Role Phone Clover Delaney M.D. Primary Care Provider [phone] Encounter Details Date Type Department Care Team (Late st Contact Info) Description 06/30/2023 Orders Only Division of Nephrology and Hypertension in [place], [place] [address] [place] [address] Sera Casiano M.D., Ph.D. 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 [address] [place] [phone] 10/15/2023 2:40 PM CDT Appointment Department of Laboratory Medicine in [address] [phone] Luis Carrion M.B.B.S. [address] [place] [phone] 10/15/2023 3:30 PM CDT Ancillary Procedure Department of Cardiovascular Diseases in [address] [phone] Clover Delaney M.D. [address] [place] [phone] Discharge Disposition: Home or Self Care 12/18/2023 9:00 AM CDT Clinical Communication Virtual Review in [address] [phone] 12/21/2023 9:15 AM CDT Ancillary Procedure Department of Ophthalmology in [address] [address] Justin Bunch M.D. [address] [place] [phone] 12/21/2023 9:45 AM CDT Ancillary Procedure Department of Ophthalmology in [address] [address] Justin Bunch M.D. [address] [place] [phone] 12/21/2023 10:00 AM CDT Office Visit Department of Ophthalmology in [place], [place] [address] [place] [address] Justin Bunch M.D. 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 [address] [place] [address] PCP - General Internal Medicine 11/23/17 documented as of this encounter
--- OUTSIDE RECORDS SUMMARY | 2023-10-06 10:29 | XMS_ITS | Encounter Summary ---
Author Organization [facility] Address [address] [place] [address] Care Team Providers Care Motion Picture Commentator Name Role Phone Clover Delaney M.D. Primary Care Provider [phone] Encounter Details Date Type Department Care Team (Late st Contact Info) Description 06/16/2023 Orders Only Department of Community Internal Medicine in [place], [place] [address] [place] [address] [place] [phone] Clover Delaney M.D. [address] [place] [address] Social History Tobacco Use Types [...] 2 05/28/2023 [facility] [place] of Occupat ional Health - Occupational [...] Sex Assigned at Male 05/13/2021 10:11 AM DIGITAL COMPUTER SYSTEMS ANALYST Gender Identity Male 11/02/2017 7:22 PM CDT Sexual Orientation Straight 11/02/2017 7: 22 PM CDT documented as of this encounter Plan of Treatment Upcoming Encounters Date Type Department Care Team (Latest Contact Info) Description 10/15/2023 2:20 PM CDT Appointment Department of Laboratory Medicine in [address] [phone] Luis Carrion M.B.B.S. [address] [place] [phone] 10/15/2023 2:40 PM CDT Appointment Department of Laboratory Medicine in [address] [phone] Luis Carrion M.B.B.S. [address] [place] [phone] 10/15/2023 3:30 PM CDT Ancillary Procedure Department of Cardiovascular Diseases in [address] [phone] Clover Delaney M.D. [address] [place] [phone] Discharge Disposition: Home or Self Care 12/18/2023 9:00 AM CDT Clinical Communication Virtual Review in [address] [phone] 12/21/2023 9:15 AM CDT Ancillary Procedure Department of Ophthalmology in [address] [address] Justin Bunch M.D. [address] [place] [phone] 12/21/2023 9:45 AM CDT Ancillary Procedure Department of Ophthalmology in [address] [address] Justin Bunch M.D. [address] [place] [phone] 12/21/2023 10:00 AM CDT Office Visit Department of Ophthalmology in [place], [place] [address] [place] [address] Justin Bunch M.D. [address] [place] [address] documented as of this encounter Visit Diagnoses Not on filedocumented in this encounter Additional Health Concerns Assessment Noted Time PHQ-9 Depression Total Score: 4 06/06/19 23 2:04 PM DIGITAL COMPUTER SYSTEMS ANALYST documented as of this encounter Care Teams Motion Picture Commentator Relationship Specialty Start Date End Date Clover Delaney M.D. [address] [place] [phone] PCP - General Internal Medicine 11/23/17 documented as of this encounter
--- OUTSIDE RECORDS SUMMARY | 2023-10-06 10:29 | XMS_ITS | Encounter Summary ---
Author Organization [facility] Address [address] [place] [address] Care Team Providers Care Surface Grinding Machine Hand Name Role Phone Clover Delaney M.D. Primary Care Provider [phone] Reason for Referral * Outpatient (Routine) - Authorized Specialty Diagnoses / Procedures Referred By Contac t Referred To Contact Clover Delaney M.D. [address] [place] [address] [facility] Referral ID Status Reason Start Date Expiration Date V isits Requested Visits Authorized [id number] Authorized 06/30/2023 12/29/2024 1 1 Scheduling Instructions Nurse AWV Do not schedule prior to due date to ensure insurance coverage Visit: Medicare Annual Wellness Never done. NESS LINE MANAGER Encounter Details Date Type Department Care Team (Late st Contact Info) Description 06/30/2023 Orders Only [facility] Clover Delaney M.D. [address] [place] [facility] [place] [address] Social History Tobacco Use Types Packs/Day [...] PHQ-2 Score 2 05/28/2023 [facility] - Occupational Stress Questionnaire Answer Date [...] Sex Assigned at Male 05/13/2021 10:11 AM BUSINESS LINE MANAGER Gender Identity Male 11/02/2017 7:22 PM CDT Sexual Orientation Straight 11/02/2017 7: 22 PM CDT documented as of this encounter Plan of Treatment Upcoming Encounters Date Type Department Care Team (Latest Contact Info) Description 10/15/2023 2:20 PM CDT Appointment Department of Laboratory Medicine in [address] [address] Luis Carrion M.B.B.S. [address] [place] [phone] 10/15/2023 2:40 PM CDT Appointment Department of Laboratory Medicine in [address] [address] Luis Carrion, M.B.B.S. [address] [place] [phone] 10/15/2023 3:30 PM CDT Ancillary Procedure Department of Cardiovascular Diseases in [address] [phone] Clover Delaney M.D. [address] [place] [phone] Discharge Disposition: Home or Self Care 12/18/2023 9:00 AM CDT Clinical Communication Virtual Review in [address] [phone] 12/21/2023 9:15 AM CDT Ancillary Procedure Department of Ophthalmology in [address] [address] Justin Bunch M.D. [address] [place] [phone] 12/21/2023 9:45 AM CDT Ancillary Procedure Department of Ophthalmology in [place], [place] [address] [place] [address] Justin Bunch M.D. [address] [place] [phone] 12/21/2023 10:00 AM CDT Office Visit Department of Ophthalmology in [place], [place] [address] [place] [address] Justin Bunch M.D. [address] [place] [phone] Scheduled Referrals Name Type Priority Associated Diagnoses Orde r Schedule Primary Care nurse visit (clinic) - [facility] Region; Medicare Annual Wellness Outpatient Referral Routine Expected: 07/28/2023, Expires: 12/27/2023 documented as of this encounter Visit Diagnoses Not on filedocumented in this encounter Additional Health Concerns Assessment Noted Time PHQ-9 Depression Total Score: 4 06/06/19 23 2:04 PM BUSINESS LINE MANAGER documented as of this encounter Care Teams Surface Grinding Machine Hand Relationship Specialty Start Date End Date Clover Delaney M.D. [address] [place] [phone] PCP - General Internal Medicine 11/23/17 documented as of this encounter
== END 2023-09-16 16:00 | disposition home or self-care (01) ==
LOC: NFLDREF 10-06 10:21
PROVIDERS: PCP Pediatrics; Visit Provider Internal Medicine Nephrology
DX: N18.9 Chronic kidney disease, unspecified (principal); D64.9 Anemia, unspecified
CPT/HCPCS: 80069; 82728; 83540; 83550

== ENCOUNTER 2023-10-07 10:00 | Outpatient (RCR) | payer MEDICARE, SELFPAY ==
[2023-04-10 15:50] LABS: Basophils Absolute Auto 0.02 K/uL (0.00-0.30); Basophils Percent Auto 0.2 % (0.0-3.0); Eosinophils Absolute Auto 0.11 K/uL (0.00-0.50); Eosinophils Percent Auto 1.2 % (0.0-7.0); Hematocrit 31.6 % (37.0-53.0); Hemoglobin* 10.1 gm/dL (13.5-17.5); Immature Granulocytes Abs Auto 0.05 K/uL (0.00-0.30); Immature Granulocytes Pct Auto 0.5 %; Lymphocytes Percent Auto 6.4 % (20-44); Mean Corpuscular HGB Conc 32 gm/dL (32-36); Mean Corpuscular Hemoglobin 30 pg (26-34); Mean Corpuscular Volume 95 fL (80-100); Neutrophils Percent Auto 86.7 % (42.0-72.0); Platelet Count* 170 K/uL (140-440); Red Blood Count 3.32 m/uL (4.30-5.90); White Blood Count* 9.46 K/uL (4.50-11.00)
[2023-04-10 16:05] LABS: Slide Review Reflex No
[2023-04-10 16:08] LABS: Albumin* 4.3 g/dL (3.3-5.0); Chloride* 107 mmol/L (96-114); Potassium* 4.7 mmol/L (3.6-5.1); Sodium* 137 mmol/L (135-149)
[2023-04-10 16:11] LABS: Alanine Aminotransferase* 16 U/L (4-50); Alkaline Phosphatase* 73 U/L (40-150); Anion Gap 12 mEq/L (7-15); Aspartate Amino Transferase* 23 U/L (12-35); Bilirubin Total* 0.6 mg/dL (0.1-1.5); Blood Urea Nitrogen* 80 mg/dL (7-30); Calcium* 8.4 mg/dL (8.4-10.6); Carbon Dioxide* 18 mmol/L (20-32); Creatinine* 4.2 mg/dL (0.5-1.5); Estimated Glomerular Filt Rate 14 ml/min; Glucose* 211 mg/dL (60-115); Total Protein* 7.1 g/dL (6.0-8.3)
[2023-04-12 10:59] LABS: Carcinoembryonic Antigen 3.4 ng/mL
--- NOTE | 2023-06-02 10:36 | URNOTE ---
Prior auth is not required for Aranesp ([id number]) per [facility]'s Medical Injectable Drug Authorization list.
--- NOTE | 2023-06-03 12:25 | ONC.NURNOTE ---
Dx: Anemia of CKD
[2023-06-08] MEDS: DARBEPOETIN ALFA (NON DIALYSIS) 100 MCG SUBCUT (14:22)
[2023-07-08 14:24] VITALS: BP 197/82; PULSE 53; RESP 16; TEMP 36.3; O2SAT 94
[2023-07-08] MEDS: DARBEPOETIN ALFA (NON DIALYSIS) 100 MCG SUBCUT (14:36)
--- NOTE | 2023-08-05 15:16 | ONC.NURNOTE ---
Patient did not show for appointment. Called and left a message with patient to call us back to reschedule.
[2023-08-13 09:06] LABS: Hemoglobin* 8.3 gm/dL (13.5-17.5)
[2023-08-13 09:14] VITALS: BP 158/76; PULSE 53; RESP 16; TEMP 36.1; O2SAT 95
[2023-08-13] MEDS: DARBEPOETIN ALFA (NON DIALYSIS) 100 MCG SUBCUT (09:17)
[2023-09-09 14:24] LABS: Hemoglobin* 6.7 gm/dL (13.5-17.5)
[2023-09-09 14:32] VITALS: BP 175/81; PULSE 68; RESP 16; TEMP 36.2; O2SAT 97
[2023-09-09] MEDS: DARBEPOETIN ALFA (NON DIALYSIS) 100 MCG IVP (15:02)
--- NOTE | 2023-09-09 15:06 | ONC.NURNOTE ---
Arrived to [facility] by W/C with his from home for a aranesp injection. Hgb came back at 6.7. vs 97.2-175/81-68-16. sats 97 RA. Note pt is a W/C and does not walk unless has to. He states he is weak. He is pale. He denies any SOB, Chest pain or rapid heart rate. He has been bruising more easily. He states hes had darker stools,no visual blood. He states he fell x2 recently skinning his knees. He was seen in the ER 3 weeks ago for Atrial Fib and was put on ELiquist. 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 states in 1996 he received blood with out difficulty. Called Dr. Armenta from [facility]. [phone]. She would like Riccardo to receive his Aranesp and be seen in [place] ER. nurse to nurse report called to [facility].
[2023-09-24 11:46] VITALS: BP 180/86; PULSE 56; RESP 16; TEMP 35.7; O2SAT 96
[2023-09-24] MEDS: DARBEPOETIN ALFA (NON DIALYSIS) 100 MCG IVP (11:57)
[2023-09-24 12:05] VITALS: BP 175/76; PULSE 54
[2023-10-07 10:24] VITALS: BP 151/75; PULSE 64; RESP 16; TEMP 36.1; O2SAT 96
[2023-10-07] MEDS: DARBEPOETIN ALFA (NON DIALYSIS) 100 MCG IVP (10:34)
[2023-10-07 14:51] LABS: Appearance Urine Clear (Clear); Bilirubin Urine Negative (Negative); Blood Urine Trace-intact (Negative); Color Urine Yellow (Yellow); Glucose Urine Trace (Negative); Ketones Urine Negative (Negative); Leukocyte Esterase Urine Negative (Negative); Nitrite Urine Negative (Negative); Protein Urine 3+ (Negative); Urobilinogen Urine 0.2 (0.2-1.0)
[2023-10-07 15:02] LABS: RBC Urine 0-2 (0-2); WBC Urine 0-2 (0-5)
[2023-10-07 15:03] LABS: Fine Granular Casts Urine Few
[2023-10-07 15:06] LABS: Creatinine Urine 66.7 mg/dL
[2023-10-07 15:15] LABS: Microalbumin Creatinine Ratio 280 mg/g (0-30); Microalbumin Urine > 19 mg/dL
== END 2023-10-07 23:59 | disposition home or self-care (01) ==
LOC: CCIC 10:00
PROVIDERS: Internal Medicine Medical Oncology; Internal Medicine Nephrology; Visit Provider Internal Medicine Hematology & Oncology
DX: C18.9 Malignant neoplasm of colon, unspecified (principal); N18.5 Chronic kidney disease, stage 5; D63.1 Anemia in chronic kidney disease
CPT/HCPCS: 36415; 80053; 80069; 81001; 81003; 82043; 82378; 82570; 82728; 83540; 83550; 85018; 85025; 96372; 99212; 99213; J0881

== ENCOUNTER 2024-01-04 15:24 | Outpatient (CLI) | payer MEDICARE, SELFPAY ==
--- OUTSIDE RECORDS SUMMARY | 2024-01-10 10:30 | XMS_ITS | Encounter Summary ---
Author Organization [facility] Address [address] [place] [address] Care Team Providers Care Editor Greeting Card Name Role Phone Clover Delaney M.D. Primary Care Provider [phone] Reason for Visit * Appointment Request (Routine) - Closed Specialty Diagnoses / Procedures Referred By Yenny t Referred To Contact Nephrology and Hypertension Referral ID Status Reason Start Date Expiration Date Visits Re quested Visits Authorized [id number] Closed 12/04/2023 12/03/2024 1 1 Encounter Details Date Type Department Care Team (Latest Contact Info) Description 01/04/2024 2:30 PM CDT External Outreach Division of Nephrology and Hypertension in [place], [place] [address] [place] [phone] Sera Casiano M.D., Ph.D. 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 - 01/04/2024 2:30 PM CDT PROGRESS NOTE SUBJECTIVE CHIEF COMPLAINT / REASON FOR VISIT Follow up CKD 4-5 [facility] Outreach Visit Location: [facility] HISTORY OF PRESENT ILLNESS Philip Patel is a 78 y.o. male who is seen for follow up. He has lost 60 lbs since he was started on Mounjaro. He also receives Aranesp every 2 weeks, and his hemoglobin is improving, currently at 9.8 He is undergoing work up with Cardiology for new onset Afib. He continues on Eliquis. His shortness of breath has resolved. Lower extremity edema is also resolved. He continues to wear compression stockings. No signs of uremia. He reports good urinary output. He has no energy, and has wobbly walk. No dizziness, or lightheadedness. His BP in clinic is the 120s, while he used to have white coat syndrome in the past. His BP at home is in the 100s/60s. He decreased clonidine from 0.2 mg BID to 0.1 mg BID about 2-3 weeks ago. He vomited today in clinic, he mentions it is the second time he vomits in the past week. He feels nauseated frequently. He feels side effects could be related to Mounjaro. OBJECTIVE BP 136/72 pulse 60 PHYSICAL EXAMINATION Physical Exam Lungs are clear to auscultation (he had rhonchi previously). No signs of uremia, no asterixis. Lower extremity trace edema DIAGNOSTICS I have reviewed available labs in detail with patient. 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 No new labs. He will do them today. Unclear cause of his symptoms of nausea and vomiting. It could be related to Mounjaro. His BP is better controlled after weight loss of 60 lbs. Plan to wean clonidine off. He will take 1tab daily for 3 days and then off. Return visit in 1 month at [facility]. Jessica Hyman M.D., Ph.D. Addendum: Laboratory workup showed normal WBCs, hemoglobin trended down to 9 (from 9.8). Sodium is 135, bicarbonate 13, rest of electrolytes within normal range, including potassium. Cr. Is at 4.6, slightly higher than his baseline. I have recommended patient to: Restart bicarbonate tablets Receive 1 L of fluid hydration 1/2 NS with 75 mEq of bicarbonate (this will be done at the [facility]) Discontinue clonidine by weaning it off as described above. Hold Mounjaro until his symptoms resolved, and probably he would require a lower dose when able to restart it. If symptoms do not improve in the next few days, or if worsening oral intake, I have instructed himto go to the ED for further evaluation. Jessica Hyman M.D., Ph.D. documented in this encounter Plan of Treatment Upcoming Encounters Date Type Department Care Team (Latest Contact Info) Description 01/14/2024 11:00 AM CDT Office Visit Department of Cardiovascular Diseases in [address] [phone] Nikko Dey M.D. [address] [place] [phone] Discharge Disposition: Home or Self Care 01/18/2024 2:45 PM CDT Ancillary Procedure Department of Ophthalmology in [place], [place] [address] [place] [phone] Justin Bunch M.D. [address] [place] [phone] 01/18/2024 3:15 PM CDT Ancillary Procedure Department of Ophthalmology in [place], [place] [address] [place] [phone] Justin Bunch M.D. [address] [place] [phone] 01/18/2024 3:30 PM CDT Office Visit Department of Ophthalmology in [place], [place] [address] [place] [phone] Justin Bunch M.D. [address] [place] [phone] 02/23/2024 10:00 AM CDT Appointment Department of Laboratory Medicine in [address] [place] [phone] Cammy Silva M.D. [address] [place] [phone] 02/25/2024 1:30 PM CDT Education Division of Endocrinology in [place], [place] [address] [place] [phone] Cammy Silva M.D. [address] [place] [phone] 02/25/2024 3:00 PM CDT Office Visit Division of Endocrinology in [place], [place] [address] [place] [phone] Cammy Silva M.D. 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 [address] [place] [phone] PCP - General Internal Medicine 11/23/17 documented as of this encounter
--- OUTSIDE RECORDS SUMMARY | 2024-01-10 10:30 | XMS_ITS | Clinical Summary ---
Author Organization [facility] Address [address] [place] [address] Care Team Providers Care Electric Screw Driver Operator Name Role Phone Clover Macias M.D. Primary Care Provider [phone] Source Comments Patient records contain information from all sites at [facility]. For routine questions regarding patient records, call [phone] during business hours, M-F 8:00 AM - 5:00 PM Central Time. Record requests for emergency care only can be directed to [phone] at any time.[facility] Allergies Active Allergy Reactions Criticality Noted Date Comments Amlodipine Edema High 07/10/2023 Epinephrine Palpitations High 11/11/2012 Tachycardia Penicillins Itching,Rash Medium 11/11/2012 Medications Medication Sig Dispensed Refills Start Date End Date Status miscellaneous medical supply [facility] CPAP Supplies See Instructions, CPAP machine, mask 1 ea x 4 refills, headgear 1 ea x 2 refills, tubing 1 ea x 4 refills, filters 2 ea per month, tub 1 ea x 2 refills, mask seal 1 ea x 2 refills DX G47.33, length of need 99, 1 each, 0 Refill(s) 7 Active miscellaneous medical supply [facility] Head Gear for CPAP Machine See Instructions, fax to patient at [phone], 1 each 4 Active MULTIVITAMIN ORAL Daily [...] once daily. 100 strip 3 4 Active doxazosin (CARDURA) 4 mg tablet [...] mouth daily. 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 1 each 4 Active torsemide (DEMADEX) 20 mg tablet Take 2 tablets (40 mg total) by mouth daily. 180 tablet 3 4 025 Active Additional Information Patient taking differently: 20 mgoral Daily, Reported on 09/08/2023 carvediloL (COREG) 12.5 mg tablet Take 0.5 [...] select brand per patient insurance/prefer ence. Active apixaban (Eliquis) 2.5 mg tablet take one tablet by mouth twice daily 180 tablet 3 4 Active FLUoxetine (PROzac) 10 mg capsule take one capsule by mouth one time daily 90 capsule 3 4 Active cloNIDine (Catapres) 0.1 mg tablet Take 1 tablet (0.1 mg total) by mouth 2 (two) times a day. 180 tablet 3 4 025 Active predniSONE (Deltasone) 5 mg tablet take one tablet by mouth one time daily 90 tablet 3 4 Active cloNIDine (CATAPRES) 0.2 mg tablet Take 1 tablet (0.2 mg total) by mouth 2 (two) times a day. 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 Was doing well on lisinopril, until INDIO and hyperkalemia. Did not tolerate CCB. Assessment & Plan (08/28/2023 7:52 AM CDT): >>ASSESSMENT AND PLAN FOR HYPERTENSION AND CHRONIC [...] Macular Edema Bilateral 11/11/2021 Glaucoma Neovascular 11/09/2021 Overview (11/09/2021): Added automatically from request for surgery [id number] Cancer Colon Transverse Personal History 020 Overview (05/29/2023): 03/2018 No evidence of metastatic disease, stable colon, diverticulosis on CT 04/09/2020 ([facility]) Repeat colonoscopy fall [address] Sewell (oncology, [place]), follow up Dr. Sewell 6-12 months with [...] Antibody A ssociated 01/04/2020 Cyst Pancreas 02/14/2019 Overview (01/06/2020): Stable per imaging through oncology Mass Pancreas 05/27/2018 Overview (01/28/2022): Noted on CT imaging for colon CA follow up. Has benign features. Per oncology and repeat imaging was stable as of 03/2020 and determined to be benign ([facility]). 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 Tolerates 1500mg metformin per day. Cancer Colon Family History 01/19/2015 01/06/2020 Chronic Kidney Disease (CKD) , Stage 3b Glomerular Filtration Rate (GFR) 30 To 44 10/08/2009 08/28/2023 Encounters Date Type Department Care Team Description 01/04/2024 2:30 PM CDT External Outreach Division of Nephrology and Hypertension in [place], [place] [address] [place] [address] Sera Casiano M.D., Ph.D. Failure Renal Acute (Acute Kidney Injury) (HCC) (Primary Dx); Chronic Kidney Disease Stage 4 Glomerular Filtration Rate 15-29 (HCC); Hypertension Essential Primary 12/22/2023 Refill Department of [facility], [facility], in [address] [place] [id number] Clover Macias M.D. Med Refill 12/06/2023 Refill Department of Counts Include [address] At [facility] Internal Medicine in [address] [place] [phone] Clover Macias M.D. Med Refill 11/16/2023 Refill Department of Counts Include [address] At [facility] Internal Medicine in [address] [place] [address] Clover Macias M.D. Med Refill 10/20/2023 12:00 PM CDT External Outreach Division of Nephrology and Hypertension in [place], [place] [address] [place] [address] Sera Casiano M.D., Ph.D. 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 Atrial Fibrillation Unspecified (HCC) Discharge Disposition: Home or Self Care 10/15/2023 3:30 PM CDT Ancillary Procedure Department of Cardiovascular Diseases in [address] [address] Clover Macias M.D. Atrial Fibrillation Unspecified (HCC); Hypertensive Chronic Kidney Disease With Stage 5 Chronic Kidney Disease Or End Stage Renal Disease, Chronic Kidney Disease Stage 5 (HCC) Discharge Disposition: Home or Self Care 10/15/2023 2:21 PM CDT - 10/15/2023 11:59 PM CDT Hospital Encounter Department of Laboratory Medicine in [address] [address] Luis Carrion M.B.B.S. 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 Atrial Fibrillation Unspecified (HCC); Hypertensive Chronic Kidney Disease With Stage 5 Chronic Kidney Disease Or End Stage Renal Disease, Chronic Kidney Disease Stage 5 (HCC) Discharge Disposition: Home or Self Care from Last 3 Months Immunizations Name Administration Dates Next Due DTaP (Infanrix, Tripedia) 05/08/2008 HepA Adult 11/22/1999,05/17/1999 HepB Adult 02/21/2020 HepB Adult (HEPLISAV-B) 05/29/2023 HepB, Unspecified 09/05/2022(Deferred: Other) Influenza Split 01/25/2009, 8,02/15/1997,1995 Influenza high dose [...] 02/11/2019,02/16/1996 Tuberculin Skin Test, Unspecified 02/02/2018 influenza trivalent high dos e (HD)(PF) 02/11/2019,02/10/2018,03/17/2017,2015,03/08/2015 influenza trivalent vaccine (6 months and older)(PF) 01/25/2009,02/26/2008 influenza vaccine QV(FLUBLOK ) (18 years or [...] Sister Pat Delvintad Sleep apnea Sister Kristin Sanchez Heart disease [...] Maybe one drink per month [facility] Utilities Answer Date Recorded In the past 12 months has e [employer], gas, oil, or water [facility] threatened to shut off services in your [...] Answer Date Recorded PHQ-2 Score 2 05/28/2023 [facility] [place] [facility] Occupat ional Health - Occupational Stress [...] your living situation today? I have a [facility] place to live 08/28/2023 Education Answer Date Recorded What is the highest level of school you have completed or the highest degree you have received? Professional school degree (e.g., MD, DDS, DVM, NACHO) 10/10/2020 Sex and Gender Information Value Date Recorded Sex Assigned at Male 05/13/2021 10:11 AM CHILDREN'S PROGRAM COORDINATOR Gender Identity Male 11/02/2017 7:22 PM CDT Sexual Orientation Straight 11/02/2017 7: 22 PM CDT Last Filed Vital Signs Vital Sign Reading Time Taken Comments Blood Pressure 179/72 10/01/2023 9:29 AM CDT Pulse 60 10/01/2023 9:29 AM CDT Temperature 36 ??C (96.8 ??F) 10/01/2023 9:20 AM CDT Respiratory Rate 17 04/07/2023 2:34 PM CHILDREN'S PROGRAM COORDINATOR Oxygen Saturation 95% 10/05/2023 1:25 PM CDT [...] Office Visit Department of Cardiovascular Diseases in [address] [phone] Nikko Dey M.D. [address] [place] [phone] Discharge Disposition: Home or Self Care 01/18/2024 2:45 PM CDT Ancillary Procedure Department of Ophthalmology in [place], [place] [address] [place] [address] Justin Bunch M.D. [address] [place] [phone] 01/18/2024 3:15 PM CDT Ancillary Procedure Department of Ophthalmology in [place], [place] [address] [place] [address] Justin Bunch M.D. [address] [place] [phone] 01/18/2024 3:30 PM CDT Office Visit Department of Ophthalmology in [place], [place] [address] [place] [address] Justin Bunch M.D. [address] [place] [phone] 02/23/2024 10:00 AM CDT Appointment Department of Laboratory Medicine in [place] [address] [place] [address] Cammy Silva M.D. [address] [place] [phone] 02/25/2024 1:30 PM CDT Education Division of Endocrinology in [place], [place] [address] [place] [phone] Cammy Silva M.D. [address] [place] [phone] 02/25/2024 3:00 PM CDT Office Visit Division of Endocrinology in [place], [place] [address] [place] [phone] Cammy Silva M.D. [address] [place] [phone] Health Maintenance Due Date Last Done Comments Visit: Medicare Annual Wellness 1945 Diabetic Office Visit with F oot Exam 02/12/2021 02/13/2020 (Performed elsewhere), 02/11/2019, 01/11/2015 Zoster Vaccines (2 of 2) 08/02/2021 06/07/2021 Hepatitis B Vaccines (3 of 3 - Risk 3-dose series) 07/24/2023 05/29/2023, 02/21/2020 Hemoglobin A1C 09/29/2023 03/30/2023, 05/28, 03/31/2022, Additional history exists COVID-19 Vaccine (2022-2 4 season) 2023 01/24/2023, 04/10/2022, 10/05/2021, Additional history exists Office Visit for Blood Press ure Check / Re-check 01/01/2024 10/01/2023, 07/23/2023, 07/23/2023 Influenza Vaccine (#1) 2024 , 03/10/2022, 02/02/2021, Additional history exists Dilated Eye Exam 06/15/2024 06/15/2023, 01/2023, 01/19/2023, Additional history exists Urine Albumin 07/05/2024 07/06/2023, 12/0 07/2022, 09/01/2022, Additional history exists Creatinine Level [...] Completed 02/11/2019, 03/08/2015, 03/01/2009, Additional history exists RSV vaccine - (32-3 6 weeks) or 60+ years Completed 03/05/2023 Colonoscopy Discontinued 04/07/2023, 03/27, 04/08/2022, Additional history exists Colorectal Cancer Surveillance Discontinued Depression Screening (Annual PHQ-2) Completed 05/29/2023, 05/28/2023 Fall Risk Screen (Annual) Completed 05/29/2023 CT Colonography Discontinued Cologuard Discontinued Procedures Procedure Name Priority Date/Time Associated Diagnosis Comments ECG AMBULATORY REAL TIME CARDIAC MONITORING Routine 10/26/2023 11:59 PM CDT Atrial Fibrillation Unspecified (HCC) PUL HOME OVERNIGHT OXIMETRY Routine 10/21/2023 Atrial Fibrillation Unspecified (HCC) Hypertensive Chronic Kidney Disease With Stage 5 Chronic Kidney Disease Or End Stage Renal Disease, Chronic Kidney Disease Stage 5 (HCC) HOLTER MONITOR - IN CLINIC THERAPEUTIC ACTIVITIES SERVICES WORKER Routine 10/16/2023 3:14 PM CDT Atrial Fibrillation Unspecified (HCC) Hypertensive Chronic Kidney Disease With Stage 5 Chronic Kidney Disease Or End Stage Renal Disease, Chronic Kidney Disease Stage 5 (HCC) URINALYSIS WITH MICROSCOPIC Routine 10/15/2023 2:48 PM CDT 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) C-REACTIVE PROTEIN (CRP), S/P Routine 10/15/2023 2:32 PM CDT 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) SEDIMENTATION RATE, B Routine 10/15/2023 2:32 PM CDT 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) COMPREHENSIVE METABOLIC PANEL, S/P Routine 08/20/2023 3:17 PM CDT Atrial Fibrillation Unspecified (HCC) Hypertensive Chronic Kidney Disease With Stage 5 Chronic Kidney Disease Or End Stage Renal Disease, Chronic Kidney Disease Stage 5 (HCC) ALBUMIN, RANDOM, U Routine 07/06/2023 9: 22 AM CDT Hypertension And Chronic Kidney Disease Stage 5 (HCC) Proteinuria 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 OPHTHALMOLOGY IMAGE EXAM Routine 06/15/2023 12:00 AM CHILDREN'S PROGRAM COORDINATOR COLONOSCOPY Routine 04/07/2023 1:48 PM CHILDREN'S PROGRAM COORDINATOR Cancer Colon Transverse Personal History HEMOGLOBIN A1C, B Routine 03/30/2023 12:21 PM CHILDREN'S PROGRAM COORDINATOR Hypertension And Chronic Kidney Disease Stage 5 (HCC) Anemia Of Chronic Renal Disease US AORTA AAA SCREENING RAD - Routine (most inpatients and all outpatients) 07/22/2017 7:39 AM CDT Maintenance Health Adult from Last 3 Months or Most Recently Relevant to Health Maintenance Results * ECG AMBULATORY REAL TIME CARDIAC MONITORING (10/26/2023 11:59 PM CDT) Min Heart Rate 52 bpm INFOBIONIC MOME Max Heart Rate 87 bpm INFOBIONIC MOME Mean Heart Rate 60 bpm INFOBIONIC MOME VE Total Beats 7,744 count INFOBIONIC MOME VE Percent Beats 1.42% percent INFOBIONIC MOME SVE Total Beats 2797 count INFOBIONIC MOME SVE Percent Beats <1% percent INFOBIONIC MOME Holter Pauses 0 count INFOBIONIC MOME AF Count 0 count INFOBIONIC MOME AF Duration 0 sec duration INFOBIONIC MOME AF Delmar 0% percent INFOBIONIC MOME VT Runs 0 count INFOBIONIC MOME SVT Runs 0 count INFOBIONIC MOME Symptom Count 0 count INFOBIONIC MOME 10/20/2023 6:09 PM CDT Narrative INFOBIONIC MOME - 10/27/2023 7:38 AM CDT 1. The patient was monitored from 10/20/2023 to 10/26/2023 with a total monitoring time of 6 days 5 hours 15 minutes. The baseline rhythm was sinus with a first-degree AV delay. The heart rate varied from 52 bpm to 87 bpm. The average heart rate was 60 bpm. 2. There were 7,744 PVCs seen singly with a PVC burden of 1.42%. 3. There were 2,797 PACs seen singly with a PAC burden of less than 1%. 4. The patient did not record any symptomatic events. Banking Assistant: SHANITA Melgar / SHANITA Patel Procedure Note Stan Vasquez M.D. - 10/27/2023 1. The patient was monitored from 10/20/2023 to 10/26/2023 with a totalmonitoring time of 6 days 5 hours 15 minutes. The baseline rhythm wassinus with a first-degree AV delay. The heart rate varied from 52 bpm to87 bpm. The average heart rate was 60 bpm. 2. There were 7,744 PVCs seen singly with a PVC burden of 1.42%. 3. There were 2,797 PACs seen singly with a PAC burden of less than 1%. 4. The patient did not record any symptomatic events. Banking Assistant: SHANITA Melgar / SHANITA Patel Clover Macias M.D. CV CARDIAC SERVICES PROCEDURES Performing Organization Address [facility] Co de Phone Number AGUSTO DAMIAN NA * Home Overnight Oximetry (10/21/2023) 10/21/2023 Impressions MATT ROLLINS EAAllie - 11/02/2023 4:01 PM CDT Overnight oximetry was performed on CPAP. ??Baseline saturation was within normal limits. ??Mild oscillatory fluctuations were noted but the oxyhemoglobin desaturation index was within normal limits. Impression: ??Nocturnal saturations appear to be well supported on current CPAP settings. Physician: Bekah Card M.B.B.S. [id number] Narrative Procedure Note Bekah Card M.B.B.S. - 11/02/2023 IMPRESSION: Overnight oximetry was performed on CPAP. Baseline saturation was withinnormal limits. Mild oscillatory fluctuations were noted but theoxyhemoglobin desaturation index was within normal limits. Impression: Nocturnal saturations appear to be well supported on currentCPAP settings. Physician: Bekah Card M.B.B.S. [id number] Clover Macias M.D. PFT ORDERABLES Performing Organization Address [facility] Co de Phone Number MATT ROLLINS EAAllie * HOLTER MONITOR - IN CLINIC THERAPEUTIC ACTIVITIES SERVICES WORKER (10/16/2023 3:14 PM CDT) Min Heart Rate 54 bpm INFOB IONIC MOME Max Heart Rate 90 bpm INFOB IONIC MOME Mean Heart Rate 61 bpm INFOBIONIC MOME VE Total Beats 713 count INFOB IONIC MOME VE Percent Beats less than 1 percent INFOBIONIC MOME SVE Total Beats 640 count INFOBIONIC MOME SVE Percent Beats less than 1 percent INFOBIONIC MOME Holter Pauses 1 count INFOBI ONIC MOME Pause Longest 2.06s duration INFOBI ONIC MOME AF Count 0 count INFOBIONIC MOME AF Duration 0 duration INFOBION IC MOME AF Delmar 0 percent INFOBIONIC MOME Symptom Count 0 count INFOBI ONIC MOME 10/15/2023 2:47 PM CDT Narrative NEFTALYNIC NATI - 10/19/2023 9:26 AM CDT Stephany Stanley Fall 1. The basic rhythm was sinus with a first degree AV delay. Sinus arrhythmia was seen at times. The total analyzed time was 23h 49m. The heart rate varied from 54 to 90 bpm. The average HR was 61 bpm. 1 pause was seen, perhaps due to a blocked APC. ??It was 2.06s in duration. 2. Premature ventricular complexes were noted singly, fused, paired and in bigeminy. There were 713 PVCs recorded with a PVC burden of less than 1%. 3. Premature supraventricular complexes were noted singly, aberrantly, non- conducted, paired, in bigeminy and in thirty 3-10 beat atrial runs with a maximum heart rate of 84 bpm. There were 640 PACs recorded with a PAC burden of less than 1%. 4. No symptomatic events were noted. Banking Assistant: SHANITA Garcia/ SHANITA Read Fellow: Mayelin Torres MD A Holter monitor with cascade to extended monitoring was ordered for the indication of Atrial fibrillation or flutter calculate burden/% time in AF. During the Holter monitoring period, the patient did not have atrial fibrillation or flutter >=30. Therefore, the study was cascaded to extended monitoring. Procedure Note Stan Vasquez M.D. - 10/19/2023 Stephany Montes 1. The basic rhythm was sinus with a first degree AV delay. Sinusarrhythmia was seen at times. The total analyzed time was 23h 49m. Theheart rate varied from 54 to 90 bpm. The average HR was 61 bpm. 1 pausewas seen, perhaps due to a blocked APC. It was 2.06s in duration. 2. Premature ventricular complexes were noted singly, fused, paired and inbigeminy. There were 713 PVCs recorded with a PVC burden of less than 1%. 3. Premature supraventricular complexes were noted singly, aberrantly,non- conducted, paired, in bigeminy and in thirty 3-10 beat atrial runswith a maximum heart rate of 84 bpm. There were 640 PACs recorded with aPAC burden of less than 1%. 4. No symptomatic events were noted. Banking Assistant: SHANITA Garcia/ SHANITA Read Fellow: Mayelin Torres MD A Holter monitor with cascade to extended monitoring was ordered for theindication of Atrial fibrillation or flutter calculate burden/% time inAF. During the Holter monitoring period, the patient did not have atrialfibrillation or flutter >=30. Therefore, the study was cascaded to extended monitoring. Clover Macias M.D. CV CARDIAC SERVICES PROCEDURES INFOBIONIC MOME NA * (ABNORMAL) Urinalysis, with Microscopic: Urine, Midstream (10/15/2023 2:48 PM CDT) Source Urine, Urine, Midstream 10/15/2023 2:48 PM CDT CNFL Clarity Clear Clear 10/15/2023 2:52 PM CDT CNFL Color Yellow 10/15/2023 2:52 PM CDT CNFL Comment: ----REFERENCE VALUE---- Colorless Yellow Susana Blood Trace(A) Negative 10/15/2023 2:52 PM CDT CNFL Nitrite Negative Negative 10/15/2023 2:52 PM CDT CNFL Leukocyte Esterase Negative Negative 10/15/2023 2:52 PM CDT CNFL Protein >=300(A) mg/dL 10/15/2023 2:52 PM CDT CNFL Comment: ----REFERENCE VALUE---- Negative Trace Glucose 100(A) Negative mg/dL 10/15/2023 2:52 PM CDT CNFL Ketones, QI(U) Negative Negative mg/dL 10/15/2023 2:52 PM CDT CNFL Bilirubin Negative Negative 10/15/2023 2:52 PM CDT CNFL pH 6.0 5.0 - 8.0 10/15/2023 2:52 PM CDT CNFL Specific [place] 1.020 1.001 - 1.035 10/15/2023 2:52 PM CDT CNFL Urobilinogen 0.2 0.2 - 1.0 mg/dL 10/15/2023 2:52 PM CDT CNFL White Blood Cells Occ-3 /hpf 10/15/2023 3:05 PM CDT CNFL Comment: ----REFERENCE VALUE---- Males: 0-3 Females: 0-10 Unknown: 0-10 Red Blood Cells Occ-2 0 - 2 /hpf 3:05 PM CDT CNFL Fat Occasional(A ) None Seen /hpf 10/15/2023 3:05 PM CDT CNFL Squamous Cells Occ-3 /hpf 10/15/2023 3:05 PM CDT CNFL Bacteria None Seen None Seen 10/15/2023 3:05 PM CDT CNFL Urine (Urine, Midstream) 10/15/2023 2:48 PM CDT 10/15/2023 2:48 PM CDT Luis MotaB.S. LAB URINE ORDERABL ES Performing Organization Address [facility]/ZIP Co de Phone Number [facility] [address] [place] [phone], [facility] CNFL [facility] in [address] [address] * (ABNORMAL) Sedimentation Rate (10/15/2023 2:32 PM CDT) Pathologist [facility] Sedimentation Rate, B 77(H) 0 - 22 mm/1 h 10/15/2023 7:41 PM CDT RDW[facility] Blood (Blood, Venous) 10/15/2023 2:32 PM CDT 10/15/2023 6:50 PM CDT Luis Melendez.B.S. LAB BLOOD ADD-ON [facility] [address] [place] [address], [facility] RDWG [facility] in [place] [address] [place] [address] * CRP (C-Reactive Protein) (10/15/2023 2:32 PM CDT) C-Reactive Protein (CRP), P <3.0 <5.0 mg/L 10/15/2023 2:55 PM CDT CNFL Blood (Blood, Venous) 10/15/2023 2:32 PM CDT 10/15/2023 2:34 PM CDT Luis Kim LAB BLOOD ADD-ON [facility] [address] [place] [address], [facility] CNFL [facility] [place] [address] * (ABNORMAL) Comprehensive Metabolic Panel (08/20/2023 3:17 [...] CDT Clover Macias M.D. LAB BLOOD ADD-ON [facility] [address] [place] [address], [facility] RDWG [facility] in [address] [phone] * (ABNORMAL) Albumin, Random, Urine (07/06/2023 9:22 AM CDT) Microalbumin 2309.6 mg/L 07/06/2023 1:30 PM CDT RDWG Creatinine 69 mg/dL 07/06/2023 12:51 PM CDT R[facility] Albumin/Creatinin e Ratio 3347(H) <17 mg/g 07/06/2023 1:30 PM CDT R[facility] Urine (Urine, Voided) 07/06/2023 9:22 AM CDT 07/06/2023 11:59 AM CDT Sera Can Hyman M.D., Ph.D. LAB UR INE ORDERABLES Performing Organization Address [facility]/ZIP Co de Phone Number [facility] [address] [place] [address], [facility] RDWG [facility] in [place] [address] [phone] * Eyes Spectralis OCT-Ophthalmology Image Exam (06/15/2023 12:00 AM CHILDREN'S PROGRAM COORDINATOR) Narrative IIMS - 06/15/2023 2:28 PM CHILDREN'S PROGRAM COORDINATOR This order has been created and auto-finalized to support the import of images acquired without order. The clinical documentation to support these images can be found on the encounter that produced images. Provider Not In System IMG NON RAD IMAGI NG PROCEDURES Performing Organization Address [facility] Co de Phone Number [facility] NA * (ABNORMAL) Hemoglobin A1c (03/30/2023 12:21 PM CHILDREN'S PROGRAM COORDINATOR) Hemoglobin A1c, B 6.8(H) 4.2 - 5.6 % 03/30/2023 12:36 PM CHILDREN'S PROGRAM COORDINATOR CNFL Comment: Hemoglobin A1c values greater than or equal to 6.5 percent are diagnostic for diabetes mellitus. ??Diagnosis should be confirmed by repeat testing. ??In diabetic patients, HbA1c goals should be discussed with healthcare provider. Blood (Blood, Venous) 03/30/2023 12:21 PM CHILDREN'S PROGRAM COORDINATOR 03/30/2023 12:23 PM CHILDREN'S PROGRAM COORDINATOR Mónica Portillo APRN, C.N.P., M.S. LAB BLOOD ADD-ON Performing Organization Address [facility] Co de Phone Number [facility] [address] [place] [phone], [facility] CNFL [facility] in [address] [address] * US Aorta AAA Screening (07/22/2017 7:39 [...] iliac: 1.1 x 1.0 cm Procedure Note eDv Coats M.D. 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 [address] [place] [phone] PCP - General Internal Medicine 11/23/17
--- OUTSIDE RECORDS SUMMARY | 2024-01-10 10:30 | XMS_ITS | Encounter Summary ---
Author Organization [facility] Address [address] [place] [address] Care Team Providers Care Alternative Energy Engineer Name Role Phone Clover Delaney M.D. Primary Care Provider [phone] Reason for Referral * Outpatient (Routine) - Closed Specialty Diagnoses / Procedures Referred By Maddyac t Referred To Contact Diagnoses Atrial Fibrillation Unspecified (HCC) Procedures Escalated MCT - TECH USE ONLY Clover Delaney M.D. [address] [place] [address] [facility] Referral ID Status Reason Start Date Expiration Date Visits Re quested Visits Authorized [id number] Closed 10/19/2023 10/18/2024 1 1 Reason for Visit * Outpatient (Routine) - Closed Specialty Diagnoses / Procedures Referred By Yenny hunter Referred To Contact Diagnoses Atrial Fibrillation Unspecified (HCC) Procedures Escalated MCT - TECH USE ONLY Clover Delaney M.D. [address] [place] [address] [facility] Region Referral ID Status Reason Start Date Expiration Date Visits Re quested Visits Authorized [id number] Closed 10/19/2023 10/18/2024 1 1 Encounter Details Date Type Department Care Team (Latest Contact Info) Description 10/19/2023 9:55 AM CDT - 10/19/2023 11:59 PM CDT Hospital Encounter Division of Cardiovascular Diseases in [place], [place] [address] [place] [address] Clover Delaney M.D. [address] [place] [address] Atrial Fibrillation Unspecified (HCC) Discharge Disposition: Home or Self Care Social History Tobacco Use Types Packs/Day Years Used Date Smoking Tobacco: Former Cigarettes 0 1961 - 12/26/1980 Passive Smoke Exposure: Never Smokeless Tobacco: Never Alcohol Use Standard Drinks/Week Comments Yes 0 (1 standard drink = 0.6 oz pur e alcohol) Maybe one drink per month [facility] Utilities Answer Date Recorded In the past 12 months has e [employer], gas, oil, or water [employer] threatened to shut off services in your [...] you attend [facility] or orthodoxy services? Never 07/28/2022 Do you [...] 2 05/28/2023 [facility] [place] of Occupat ional [facility] - Occupational Stress Questionnaire Answer [...] your living situation today? I have a [facility] place to live 08/28/2023 Education Answer Date Recorded What is the highest level of school you have completed or the highest degree you have received? 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 6 kit 3 08/31/2023 08/30/2024 FreeStyle Brionna 2 ReaderIndications:Diabet es Mellitus Type [...] mouth as needed. miscellaneous medical supply [facility] CPAP Supplies See Instructions, CPAP machine, mask 1 ea x 4 refills, headgear 1 ea x 2 refills, tubing 1 ea x 4 refills, filters 2 ea per month, tub 1 ea x 2 refills, mask seal 1 ea x 2 refills DX G47.33, length of need 99, 1 each, 0 Refill(s) 10/20/2016 miscellaneous medical supply [facility] Head Gear for CPAP Machine See Instructions, fax to patient at [phone], 1 each 01/17/2014 MULTIVITAMIN ORAL Daily Multiple Vitamins See Instructions, Take 1 tablet by mouth daily. 07/23/2013 ONETOUCH DELICA LANCETS 33 gauge [facility] 3 08/02/2018 OneTouch Ultra [...] daily 100 each 3 03/31/2022 cloNIDine (CATAPRES) 0.2 mg tablet Take 1 tablet (0.2 mg total) by mouth 2 (two) times a day. 180 tablet 3 08/05/2023 12/15/2023 Eliquis 2.5 mg tablet Take 1 tablet by mouth 2 (two) times a day. 08/16/2023 11/17/2023 FLUoxetine (PROzac) 10 mg capsule Take 1 capsule (10 mg total) by mouth daily. 90 capsule 1 06/05/2023 12/08/2023 predniSONE (DELTASONE) 5 mg tablet take one tablet by mouth one time daily 90 tablet 09/25/2023 12/23/2023 documented as of this encounter Plan of Treatment Upcoming Encounters Date Type Department Care Team (Latest Contact Info) Description 01/14/2024 11:00 AM CDT Office Visit Department of Cardiovascular Diseases in [address] [phone] Nikko Dey M.D. [address] [place] [phone] Discharge Disposition: Home or Self Care 01/18/2024 2:45 PM CDT Ancillary Procedure Department of Ophthalmology in [place] [address] [place] [address] Justin Bunch M.D. [address] [place] [phone] 01/18/2024 3:15 PM CDT Ancillary Procedure Department of Ophthalmology in [place], [place] [address] [place] [address] Justin Bunch M.D. [address] [place] [phone] 01/18/2024 3:30 PM CDT Office Visit Department of Ophthalmology in [place], [place] [address] [place] [address] Justin Bunch M.D. [address] [place] [phone] 02/23/2024 10:00 AM CDT Appointment Department of Laboratory Medicine in [address] [place] [address] Cammy Silva M.D. [address] [place] [phone] 02/25/2024 1:30 PM CDT Education Division of Endocrinology in [place], [place] [address] [place] [address] Cammy Silva M.D. [address] [place] [phone] 02/25/2024 3:00 PM CDT Office Visit Division of Endocrinology in [place], [place] [address] [place] [address] Cammy Silva M.D. [address] [place] [phone] documented as of this encounter Procedures Procedure Name Priority Date/Time Associated Diagnosis Comments ECG AMBULATORY REAL TIME CARDIAC MONITORING Routine 10/26/2023 11:59 PM CDT Atrial Fibrillation Unspecified (HCC) documented in this encounter Results * ECG AMBULATORY REAL TIME CARDIAC [...] Duration 0 sec duration INFOBIONIC MOME AF [place] 0% percent INFOBIONIC MOME [place] Runs 0 [...] patient did not record any symptomatic events. Security Trainer: SHANITA Melgar / SHANITA Patel Procedure Note [...] patient did not record any symptomatic events. Security Trainer: SHANITA Melgar / SHANITA Patel Clover Delaney M.D. CV CARDIAC SERVICES PROCEDURES INFOBIONIC MOME NA documented in this encounter Visit Diagnoses Diagnosis Atrial Fibrillation Unspecified (HCC) documented in this encounter Additional Health Concerns Assessment Noted Time PHQ-9 Depression Total Score: 4 06/06/19 23 2:04 PM CERTIFIED PROFESSIONAL CONTROLLER documented as of this encounter Care Teams Alternative Energy Engineer Relationship Specialty Start Date End Date Clover Delaney M.D. [address] [place] [phone] PCP - General Internal Medicine 11/23/17 documented as of this encounter
--- OUTSIDE RECORDS SUMMARY | 2024-01-10 10:30 | XMS_ITS | Encounter Summary ---
Author Organization [facility] Address [address] [place] [address] Care Team Providers Care Make Ready Mechanic Name Role Phone Clover Delaney M.D. Primary Care Provider [phone] Reason for Visit * Reason Comments Med Refill Encounter Details Date Type Department Care Team (Late st Contact Info) Description 11/16/2023 Refill Department of Community Internal Medicine in [address] [place] [address] Clover Delaney M.D. [address] [place] [address] Med Refill Social History Tobacco Use Types Packs/Day Years Used Date Smoking Tobacco: Former Cigarettes 0 1961 - 12/26/1980 Passive Smoke Exposure: Never Smokeless Tobacco: Never Alcohol Use Standard Drinks/Week Comments Yes 0 (1 standard drink = 0.6 oz pur e alcohol) Maybe one drink per month [facility] Utilities Answer Date Recorded In the past 12 months has e electric, gas, oil, or water [employer] threatened to shut off services in your [...] your living situation today? I have a [facility] place to live 08/28/2023 Education Answer Date Recorded What is the highest level of school you have completed or the highest degree you have received? Professional school degree (e.g., , DDS, DVM, NACHO) 10/10/2020 Sex and Gender Information Value Date Recorded Sex Assigned at Male 05/13/2021 10:11 AM CAP SEWER Gender Identity Male 11/02/2017 7:22 PM CDT Sexual Orientation Straight 11/02/2017 7: 22 PM CDT documented as of this encounter Plan of Treatment Upcoming Encounters Date Type Department Care Team (Latest Contact Info) Description 01/14/2024 11:00 AM CDT Office Visit Department of Cardiovascular Diseases in [address] [phone] Nikko Dey M.D. [address] [facility] [place] [phone] Discharge Disposition: Home or Self Care 01/18/2024 2:45 PM CDT Ancillary Procedure Department of Ophthalmology in [place], [place] [address] [place] [phone] Justin Bunch M.D. [address] [place] [phone] 01/18/2024 3:15 PM CDT Ancillary Procedure Department of Ophthalmology in [place], [place] [address] [place] [phone] Justin Bunch M.D. [address] [place] [phone] 01/18/2024 3:30 PM CDT Office Visit Department of Ophthalmology in [place], [place] [address] [place] [phone] Justin Bunch M.D. [address] [place] [phone] 02/23/2024 10:00 AM CDT Appointment Department of Laboratory Medicine in [address] [place] [phone] Cammy Silva M.D. [address] [place] [phone] 02/25/2024 1:30 PM CDT Education Division of Endocrinology in [place], [place] [address] [place] [phone] Cammy Silva M.D. [address] [place] [phone] 02/25/2024 3:00 PM CDT Office Visit Division of Endocrinology in [place], [place] [address] [place] [address] Cammy Silva M.D. [address] [place] [address] documented as of this encounter Visit Diagnoses Not on filedocumented in this encounter Additional Health Concerns Assessment Noted Time PHQ-9 Depression Total Score: 4 06/06/19 23 2:04 PM CAP SEWER documented as of this encounter Care Teams Make Ready Mechanic Relationship Specialty Start Date End Date Clover Delaney M.D. [address] [place] [phone] PCP - General Internal Medicine 11/23/17 documented as of this encounter
--- OUTSIDE RECORDS SUMMARY | 2024-01-10 10:30 | XMS_ITS ---
Author Organization [facility] Address [address] [place] [address] Care Team Providers Care Apprentice Stylist Name Role Phone Unavailable Unavailable Unavailable Surgery Details Not on file Complications Check Surgery Details section. Procedure Estimated Blood Loss Check Surgery Details section. Procedure Findings Check Surgery Details section. Procedure Specimens Taken Check Surgery Details section.
--- OUTSIDE RECORDS SUMMARY | 2024-01-10 10:30 | XMS_ITS | Referral Summary ---
Author Organization [facility] Address [address] [place] [address] Care Team Providers Care Employee Development Manager Name Role Phone Clover Macias M.D. Primary Care Provider [phone] Source Comments Patient records contain information from all sites at [facility]. For routine questions regarding patient records, call [phone] during business hours, M-F 8:00 AM - 5:00 PM Central Time. Record requests for emergency care only can be directed to [phone] at any time.[facility] Encounters Date Type Department Care Team Description 01/04/2024 2:30 PM CDT External Outreach Division of Nephrology and Hypertension in [place], [place] [address] [place] [address] Sera Casiano M.D., Ph.D. Failure Renal Acute (Acute Kidney Injury) (HCC) (Primary Dx); Chronic Kidney Disease Stage 4 Glomerular Filtration Rate 15-29 (HCC); Hypertension Essential Primary 12/22/2023 Refill Department of Family Medicine, [facility], in [place] [address] [place] [phone] Clover Macias M.D. Med Refill 12/06/2023 Refill Department of Community Internal Medicine in [place], [place] [address] [place] [address] [phone] Clover Macias M.D. Med Refill 11/16/2023 Refill Department of [facility] Internal Medicine in [address] [place] [address] Clover Macias M.D. Med Refill 10/20/2023 12:00 PM CDT External Outreach Division of Nephrology and Hypertension in [place], [place] [address] [place] [address] Sera Casiano M.D., Ph.D. 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 Atrial Fibrillation Unspecified (HCC) Discharge Disposition: Home or Self Care 10/15/2023 2:20 PM CDT Hospital Encounter Department of Laboratory Medicine in [address] [address] Luis Carrion M.B.B.S. 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 Atrial Fibrillation Unspecified (HCC); Hypertensive Chronic Kidney Disease With Stage 5 Chronic Kidney Disease Or End Stage Renal Disease, Chronic Kidney Disease Stage 5 (HCC) Discharge Disposition: Home or Self Care 10/12/2023 7:31 AM CDT - 10/12/2023 11:59 PM CDT Hospital Encounter Department of Pulmonary Medicine in [place], [place] [address] [place] [address] Clover Macias M.D. Atrial Fibrillation Unspecified (HCC); [...] Date End Date Status miscellaneous medical supply [facility] CPAP Supplies See Instructions, CPAP machine, mask 1 ea x 4 refills, headgear 1 ea x 2 refills, tubing 1 ea x 4 refills, filters 2 ea per month, tub 1 ea x 2 refills, mask seal 1 ea x 2 refills DX G47.33, length of need 99, 1 each, 0 Refill(s) 7 Active miscellaneous medical supply [facility] Head Gear for CPAP Machine See Instructions, fax to patient at [phone], 1 each 4 Active MULTIVITAMIN ORAL Daily Multiple Vitamins See Instructions, Take 1 tablet by mouth daily. 4 Active ONETOUCH DELICA LANCETS [facility] 3 9 Active loperamide (IMODIUM A-D) [...] week 1 to week 4. 2 mL 03/04/202 4 Active tirzepatide (Mounjaro) 10 mg/0.5 mL [...] (11/09/2021): Added automatically from request for surgery [id number] Cancer Colon Transverse Personal History 020 Overview (05/29/2023): 03/2018 No evidence of metastatic disease, stable colon, diverticulosis on CT 04/09/2020 ([facility], [facility]) Repeat colonoscopy fall [address] Sewell (oncology, [place]), follow up Dr. Sewell 6-12 months with [...] of 03/2020 and determined to be benign ([facility] records). Obstructive Sleep Apnea Adult [...] (12/01/2017): Added automatically from request for surgery [id number] Hematochezia 11/09/2017 07/01/2018 Overview (11/09/2017): Added automatically from request for surgery [id number] Diarrhea 11/09/2017 09/28/2018 Overview (09/28/2018): S/P recurrent [...] per month [facility] [employer]ities Answer Date Recorded In the past 12 months has e [employer], gas, oil, or water [employer] threatened to shut off services in [...] 2 05/28/2023 [facility] Occupational Stress Questionnaire Answer Date [...] your living situation today? I have a [facility] place to live 08/28/2023 Education Answer Date Recorded What is the highest level of school you have completed or the highest degree you have received? Professional school degree (e.g., MD, DDS, DVM, NACHO) 10/10/2020 Sex and Gender Information Value Date Recorded Sex Assigned at Male 05/13/2021 10:11 AM BUILDING MAINTENANCE SUPERVISOR Gender Identity Male 11/02/2017 7:22 PM CDT Sexual Orientation Straight 11/02/2017 7: 22 PM CDT Last Filed Vital Signs Vital Sign Reading Time Taken Comments Blood Pressure 179/72 10/01/2023 9:29 AM CDT Pulse 60 10/01/2023 9:29 AM CDT Temperature 36 ??C (96.8 ??F) 10/01/2023 9:20 AM CDT Respiratory Rate 17 04/07/2023 2:34 PM BUILDING MAINTENANCE SUPERVISOR Oxygen Saturation 95% 10/05/2023 1:25 PM [...] Office Visit Department of Cardiovascular Diseases in [address] [phone] Nikko Dey M.D. [address] [place] [phone] Discharge Disposition: Home or Self Care 01/18/2024 2:45 PM CDT Ancillary Procedure Department of Ophthalmology in [place], [place] [address] [place] [address] Justin Bunch M.D. [address] [place] [address] 01/18/2024 3:15 PM CDT Ancillary Procedure Department of Ophthalmology in [place], [place] [address] [place] [address] Justin Bunch M.D. [address] [place] [phone] 01/18/2024 3:30 PM CDT Office Visit Department of Ophthalmology in [place], [place] [address] [place] [phone] Justin Bunch M.D. [address] [place] [phone] 02/23/2024 10:00 AM CDT Appointment Department of Laboratory Medicine in [address] [facility] [place] [address] Cammy Silva M.D. [address] [place] [phone] 02/25/2024 1:30 PM CDT Education Division of Endocrinology in [place], [place] [address] [place] [address] Cammy Silva M.D. [address] [place] [phone] 02/25/2024 3:00 PM CDT Office Visit Division of Endocrinology in [place], [place] [address] [place] [phone] Cammy Silva M.D. [address] [place] [phone] Procedures Procedure Name Priority Date/Time Associated Diagnosis Comments ECG AMBULATORY REAL TIME CARDIAC MONITORING Routine 10/26/2023 11:59 PM CDT Atrial Fibrillation Unspecified (HCC) PUL HOME OVERNIGHT OXIMETRY Routine 10/21/2023 Atrial Fibrillation Unspecified (HCC) Hypertensive Chronic Kidney Disease With Stage 5 Chronic Kidney Disease Or End Stage Renal Disease, Chronic Kidney Disease Stage 5 (HCC) HOLTER MONITOR - IN CLINIC BOW TACKER Routine 10/16/2023 3:14 PM CDT Atrial Fibrillation [...] OPHTHALMOLOGY IMAGE EXAM Routine 06/15/2023 12:00 AM BUILDING MAINTENANCE SUPERVISOR COLONOSCOPY Routine 04/07/2023 1:48 PM BUILDING MAINTENANCE SUPERVISOR Cancer Colon Transverse Personal History HEMOGLOBIN A1C, B Routine 03/30/2023 12:21 PM BUILDING MAINTENANCE SUPERVISOR Hypertension And Chronic Kidney Disease Stage [...] Duration 0 sec duration INFOBIONIC MOME AF [place] 0% percent INFOBIONIC MOME [place] Runs 0 [...] patient did not record any symptomatic events. Highway Maintainer: SHANITA Melgar / SHANITA Patel Procedure Note [...] patient did not record any symptomatic events. Highway Maintainer: SHANITA Melgar / SHANITA Patel Clover Macias M.D. CV CARDIAC SERVICES PROCEDURES Performing Organization Address [facility] Co de Phone Number AGUSTO DAMIAN NA * Home Overnight Oximetry (10/21/2023) 10/21/2023 Impressions MATT ROLLINS EAP - 11/02/2023 4:01 PM CDT Overnight oximetry was performed on CPAP. ??Baseline saturation was within normal limits. ??Mild oscillatory fluctuations were noted but the oxyhemoglobin desaturation index was within normal limits. Impression: ??Nocturnal saturations appear to be well supported on current CPAP settings. Physician: Bekah Card M.B.B.S. [id number] Narrative Procedure Note Bekah Card M.B.B.S. - 11/02/2023 IMPRESSION: Overnight oximetry was performed on CPAP. Baseline saturation was withinnormal limits. Mild oscillatory fluctuations were noted but theoxyhemoglobin desaturation index was within normal limits. Impression: Nocturnal saturations appear to be well supported on currentCPAP settings. Physician: Bekah Card M.B.B.S. [id number] Clover Macias M.D. PFT ORDERABLES Performing Organization Address [facility]/ZIP Co de Phone Number MATT ROLLINS EAAllie * HOLTER MONITOR - IN CLINIC BOW TACKER (10/16/2023 3:14 PM CDT) Min Heart Rate [...] Duration 0 duration INFOBION IC MOME AF [place] 0 percent INFOBIONIC MOME Symptom Count 0 count INFOBI ONIC MOME 10/15/2023 2:47 PM CDT Narrative INFOBIONIC MOME - 10/19/2023 9:26 AM CDT fall 1. The basic rhythm was sinus with [...] 1%. 4. No symptomatic events were noted. Highway Maintainer: SHANITA Garcia/ SHANITA Read Fellow: Mayelin Torres MD A Holter monitor with cascade to extended monitoring was ordered for the indication of Atrial fibrillation or flutter calculate burden/% time in AF. During the Holter monitoring period, the patient did not have atrial fibrillation or flutter >=30. Therefore, the study was cascaded to extended monitoring. Procedure Note Stan Vasquez M.D. - 10/19/2023 fall 1. The basic rhythm was sinus with [...] 1%. 4. No symptomatic events were noted. Highway Maintainer: SHANITA Garcia/ SHANITA Read Fellow: Mayelin Torres MD A Holter monitor with cascade to extended monitoring was ordered for theindication of Atrial fibrillation or flutter calculate burden/% time inAF. During the Holter monitoring period, the patient did not have atrialfibrillation or flutter >=30. Therefore, the study was cascaded to extended monitoring. Clover Macias M.D. CV CARDIAC SERVICES PROCEDURES INFOBIONIC NATI NA * (ABNORMAL) Urinalysis, with Microscopic: Urine, [...] 8.0 10/15/2023 2:52 PM CDT CNFL Specific Mccormick 1.020 1.001 - 1.035 10/15/2023 2:52 PM [...] PM CDT 10/15/2023 2:48 PM CDT Luis MotaBJosé LuisS. LAB URINE ORDERABL ES [facility] [address] [place] [address], [facility] [place] [address] * (ABNORMAL) Sedimentation Rate (10/15/2023 2:32 PM CDT) Sedimentation Rate, B 77(H) 0 - 22 mm/1 h 10/15/2023 7:41 PM CDT RDW[facility] Blood (Blood, Venous) 10/15/2023 2:32 PM CDT 10/15/2023 6:50 PM CDT Luis MotaB.S. LAB BLOOD ADD-ON [facility] [address] [facility] [place] [address], [facility] RDWG [facility] in [place] [address] [place] [address] * CRP (C-Reactive Protein) (10/15/2023 2:32 PM CDT) C-Reactive Protein (CRP), P <3.0 <5.0 mg/L 10/15/2023 2:55 PM CDT CNFL Blood (Blood, Venous) 10/15/2023 2:32 PM CDT 10/15/2023 2:34 PM CDT Luis Kim LAB BLOOD ADD-ON [facility] [address] [place] [address], [facility] CNFL [facility] in [address] [address] * (ABNORMAL) Comprehensive Metabolic Panel (08/20/2023 3:17 [...] CDT Clover Macias M.D. LAB BLOOD ADD-ON [facility] [address] [place] [address], [facility] RDW[facility] in [place] [address] [place] [phone] * (ABNORMAL) Albumin, Random, Urine (07/06/2023 9:22 AM CDT) Microalbumin 2309.6 mg/L 07/06/2023 1:30 PM CDT RDWG Creatinine 69 mg/dL 07/06/2023 12:51 PM CDT [facility] Albumin/Creatinin e Ratio 3347(H) <17 mg/g 07/06/2023 1:30 PM CDT RDWG Urine (Urine, Voided) 07/06/2023 9:22 AM CDT 07/06/2023 11:59 AM CDT Sera Hyman M.D., Ph.D. LAB UR INE ORDERABLES Performing Organization Address [facility]/ZIP Co de Phone Number [facility] [address] [place] [address], [facility] RDWG [facility] in [place] [address] [place] [address] * Eyes Spectralis OCT-Ophthalmology Image Exam (06/15/2023 12:00 AM BUILDING MAINTENANCE SUPERVISOR) Narrative IIMS - 06/15/2023 2:28 PM BUILDING MAINTENANCE SUPERVISOR This order has been created and auto-finalized to support the import of images acquired without order. The clinical documentation to support these images can be found on the encounter that produced images. Provider Not In System IMG NON RAD IMAGI NG PROCEDURES Performing Organization Address [facility] Co de Phone Number IINM NA * (ABNORMAL) Hemoglobin A1c (03/30/2023 12:21 PM BUILDING MAINTENANCE SUPERVISOR) Hemoglobin A1c, B 6.8(H) 4.2 - 5.6 % 03/30/2023 12:36 PM BUILDING MAINTENANCE SUPERVISOR CNFL Comment: Hemoglobin A1c values greater than or equal to 6.5 percent are diagnostic for diabetes mellitus. ??Diagnosis should be confirmed by repeat testing. ??In diabetic patients, HbA1c goals should be discussed with healthcare provider. Blood (Blood, Venous) 03/30/2023 12:21 PM BUILDING MAINTENANCE SUPERVISOR 03/30/2023 12:23 PM BUILDING MAINTENANCE SUPERVISOR Drew Couch APRNN.Allie., M.S. LAB BLOOD ADD-ON Performing Organization Address City/[facility]/ZIP Co de Phone Number [facility] [address] [place] [address], [place] CNFL [facility] in [address] [address] * [place] Aorta AAA Screening (07/22/2017 7:39 [...] Advance Directives For more information, please contact: [phone] Documents on File Type Date Recorded Patient Transcription Typist Expl anation Advance Directives 12/22/2017 11:40 AM [facility] Care Directive * Full Code [...] Agents on File Name Relationship Healthcare Agent [employer] Health[facility] p Communication Sayra Amanda Spouse Health Care Agent Kathie Silveira Daughter First Alternate Health Care Agent Monica Boggs Daughter First Alternate Health Care Agent Care Teams Employee Development Manager Relationship Specialty Start Date End Date Clover Macias M.D. [address] [place] [phone] PCP - General Internal Medicine 11/23/17
--- OUTSIDE RECORDS SUMMARY | 2024-01-10 10:30 | XMS_ITS | Encounter Summary ---
Author Organization [facility] Address [address] [place] [address] Care Team Providers Care Post Office Manager Name Role Phone Clover Delaney M.D. Primary Care Provider [phone] Reason for Visit * Reason Comments Med Refill Encounter Details Date Type Department Care Team (Late st Contact Info) Description 12/22/2023 Refill Department of Family Medicine, [facility], in [place], [place] [address] [place] [address] [place] [address] Clover Delaney M.D. [address] [place] [address] Med Refill Social History Tobacco Use Types Packs/Day Years Used Date Smoking Tobacco: Former Cigarettes 0 1961 - 12/26/1980 Passive Smoke Exposure: Never Smokeless Tobacco: Never Alcohol Use Standard Drinks/Week Comments Yes 0 (1 standard drink = 0.6 oz pur e alcohol) Maybe one drink per month [facility] Utilities Answer Date Recorded In the past 12 months has e electric, gas, oil, or water [employer] threatened to shut off services in your [...] living situation today? I have a [facility] place to live 08/28/2023 Education Answer Date Recorded What is the highest level of school you have completed or the highest degree you have received? Professional school degree (e.g., MD, DDS, DVM, NACHO) 10/10/2020 Sex and Gender Information Value Date Recorded Sex Assigned at Male 05/13/2021 10:11 AM ADVERTISING SPECIALIST Gender Identity Male 11/02/2017 7:22 PM CDT Sexual Orientation Straight 11/02/2017 7: 22 PM CDT documented as of this encounter Plan of Treatment Upcoming Encounters Date Type Department Care Team (Latest Contact Info) Description 01/14/2024 11:00 AM CDT Office Visit Department of Cardiovascular Diseases in [address] [place] [address] Nikko Dey M.D. [address] [facility] [place] [phone] Discharge Disposition: Home or Self Care 01/18/2024 2:45 PM CDT Ancillary Procedure Department of Ophthalmology in [place], [place] [address] [place] [phone] Justin Bunch M.D. [address] [place] [address] 01/18/2024 3:15 PM CDT Ancillary Procedure Department of Ophthalmology in [place], [place] [address] [place] [phone] Justin Bunch M.D. [address] [place] [phone] 01/18/2024 3:30 PM CDT Office Visit Department of Ophthalmology in [place], [place] [address] [place] [phone] Justin Bunch M.D. [address] [place] [phone] 02/23/2024 10:00 AM CDT Appointment Department of Laboratory Medicine in [place] [address] [place] [address] Cammy Silva M.D. [address] [place] [phone] 02/25/2024 1:30 PM CDT Education Division of Endocrinology in [place], [place] [address] [place] [phone] Cammy Silva M.D. [address] [place] [phone] 02/25/2024 3:00 PM CDT Office Visit Division of Endocrinology in [place], [place] [address] [place] [address] Cammy Silva M.D. [address] [place] [address] documented as of this encounter Visit Diagnoses Not on filedocumented in this encounter Additional Health Concerns Assessment Noted Time PHQ-9 Depression Total Score: 4 06/06/19 23 2:04 PM ADVERTISING SPECIALIST documented as of this encounter Care Teams Post Office Manager Relationship Specialty Start Date End Date Clover Delaney M.D. [address] [place] [address] PCP - General Internal Medicine 11/23/17 documented as of this encounter
--- OUTSIDE RECORDS SUMMARY | 2024-01-10 10:30 | XMS_ITS | Encounter Summary ---
Author Organization [facility] Address [address] [place] [address] Care Team Providers Care Integration Analyst Name Role Phone Clover Delaney M.D. Primary Care Provider +1- [phone] Reason for Visit * Appointment Request (Routine) - Closed Specialty Diagnoses / Procedures Referred By Yenny t Referred To Contact Nephrology and Hypertension Referral ID Status Reason Start Date Expiration Date Visits Re quested Visits Authorized [id number] Closed 09/24/2023 09/23/2024 1 1 Encounter Details Date Type Department Care Team (Latest Contact Info) Description 10/20/2023 12:00 PM CDT External Outreach Division of Nephrology and Hypertension in [place], [place] [address] [place] [address] Sera Casiano M.D., Ph.D. 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 I have a [facility] place to live 08/28/2023 Education Answer Date Recorded What is the highest level of school you have completed or the highest degree you have received? Professional school degree (e.g., , MICKIS, DVM, NACHO) 10/10/2020 Sex and Gender Information Value Date Recorded Sex Assigned at Male 05/13/2021 10:11 AM CEREAL SUPERVISOR Gender Identity Male 11/02/2017 7:22 PM CDT Sexual Orientation Straight 11/02/2017 7: 22 PM CDT documented as of this encounter Progress Notes * Sera Casiano M.D., Ph.D. - 10/20/2023 12:00 PM CDT PROGRESS NOTE SUBJECTIVE CHIEF COMPLAINT / REASON FOR VISIT Follow up CKD 4-5 [facility] Outreach Visit Location: [facility] HISTORY OF PRESENT ILLNESS Philip Patel is a 77 y.o. male who is seen for follow up. He feels better and has been doing well at home. He has lost 40 lbs since he was started on Mounjaro. He also receives Aranesp every 2 weeks, and his hemoglobin is improving, although it is still below9. He is undergoing work up with Cardiology for new onset Afib. He continues on Eliquis. His shortness of breath has resolved. Lower extremity edema is also resolved. He continues to wear compression stockings. No signs of uremia. He reports good urinary output. His BP at home ranges in the 180s/60s in clinic, he reports at home are in the 120s-140s/60s OBJECTIVE BP 157/67 pulse 62 PHYSICAL EXAMINATION Physical Exam Lungs are clear [...] Renal Disease Patient returns for follow up. Kidney function remains stable. We discussed his CKD status, and risk [...] states BP at home is better controlled. Weight loss will help to improve BP as well. Monitor for signs of hypotension, in which case decreasing clonidine will be needed. Vascular access was scheduled for August, due to recent Afib and initiation of Eliquis, we have postponed surgical intervention. Plan to monitor for now, and referral again in December. Continue Aranesp and oral Iron for anemia management, due to recent anemia, continue Aranesp 100 mcg every 2 weeks. Hold sodium bicarbonate for now Regarding prednisone, Pulmonary agrees with possible taper off, I will touch base with Endocrinology. Return visit in December at [facility]. Jessica Hyman M.D., Ph.D. documented in this encounter Plan of Treatment Upcoming Encounters Date Type Department Care Team (Latest Contact Info) Description 01/14/2024 11:00 AM CDT Office Visit Department of Cardiovascular Diseases in [address] [phone] Nikko Dey M.D. [address] [place] [phone] Discharge Disposition: Home or Self Care 01/18/2024 2:45 PM CDT Ancillary Procedure Department of Ophthalmology in [address] [phone] Justin Bunch M.D. [address] [place] [phone] 01/18/2024 3:15 PM CDT Ancillary Procedure Department of Ophthalmology in [place], [place] [address] [place] [phone] Justin Bunch M.D. [address] [place] [phone] 01/18/2024 3:30 PM CDT Office Visit Department of Ophthalmology in [place], [place] [address] [place] [phone] Justin Bunch M.D. [address] [place] [phone] 02/23/2024 10:00 AM CDT Appointment Department of Laboratory Medicine in [address] [place] [phone] Cammy Silva M.D. [address] [place] [address] 02/25/2024 1:30 PM CDT Education Division of Endocrinology in [place], [place] [address] [place] [address] Cammy Silva M.D. [address] [place] [phone] 02/25/2024 3:00 PM CDT Office Visit Division of Endocrinology in [place], [place] [address] [place] [address] Cammy Silva M.D. 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 [facility] [place] [phone] PCP - General Internal Medicine 11/23/17 documented as of this encounter
--- OUTSIDE RECORDS SUMMARY | 2024-01-10 10:30 | XMS_ITS ---
Author Organization [facility] Address [address] [place] [address] Care Team Providers Care Long Chain Beamer Name Role Phone Clover Macias M.D. Primary Care Provider +1- [phone] Active Problems Problem Noted Date Diagnosed Date [...] (11/09/2021): Added automatically from request for surgery [id number] Cancer Colon Transverse Personal History 020 Overview (05/29/2023): 03/2018 No evidence of metastatic disease, stable colon, diverticulosis on CT 04/09/2020 ([facility], [facility]) Repeat colonoscopy fall [address] Sewell (oncology, [place]), follow up Dr. Sewell 6-12 months with [...] of 03/2020 and determined to be benign ([facility] records). Obstructive Sleep Apnea [...] medications scheduled. Therapy Complete Mónica Portillo APRN, C.N.Allie., M.S. FERUMOXYTOL (FERAHEME) 09/03/2022 09/03/2022 No medications scheduled. Therapy Complete Mónica Potrillo APRN, C.NLesa, M.S. ELECTROLYTE ADMINISTRATION 09/03/2022 12/17/2020 No medications scheduled. Upgrade 2019 Therapy Plan Conversion Tahira Fall M.D. Radiation Treatments * No radiation treatments are documented for this patient in [facility]. Treatments may have been administered in another [...] (12/01/2017): Added automatically from request for surgery [id number] Hematochezia 11/09/2017 07/01/2018 Overview (11/09/2017): Added automatically from request for surgery [id number] Diarrhea 11/09/2017 09/28/2018 Overview (09/28/2018): S/P recurrent c diff. Tolerates 1500mg metformin per day. Cancer Colon Family History 01/19/2015 01/06/2020 Chronic Kidney Disease (CKD) , Stage 3b Glomerular Filtration Rate (GFR) 30 To 44 10/08/2009 08/28/2023
--- OUTSIDE RECORDS SUMMARY | 2024-01-10 10:30 | XMS_ITS | Encounter Summary ---
Author Organization [facility] Address [address] [place] [address] Care Team Providers Care Web Designer Developer Name Role Phone Clover Delaney M.D. Primary Care Provider [phone] Reason for Visit * Reason Comments Med Refill Encounter Details Date Type Department Care Team (Late st Contact Info) Description 12/06/2023 Refill Department of Community Internal Medicine in [address] [place] [address] Clover Delaney M.D. [address] [place] [address] Med Refill Social History Tobacco Use Types Packs/Day Years Used Date Smoking Tobacco: Former Cigarettes 0 1961 - 12/26/1980 Passive Smoke Exposure: Never Smokeless Tobacco: Never Alcohol Use Standard Drinks/Week Comments Yes 0 (1 standard drink = 0.6 oz pur e alcohol) Maybe one drink per month [facility] Utilities Answer Date Recorded In the past 12 months has e electric, gas, oil, or water [email or web address] threatened to shut off services in your [...] Answer Date Recorded PHQ-2 Score 2 05/28/2023 [facility] of Occupat ional Health - Occupational [...] your living situation today? I have a [facility] place to live 08/28/2023 Education Answer Date Recorded What is the highest level of school you have completed or the highest degree you have received? Professional school degree (e.g., , DDS, DVM, NACHO) 10/10/2020 Sex and Gender Information Value Date Recorded Sex Assigned at Male 05/13/2021 10:11 AM CASEWORK SUPERVISOR Gender Identity Male 11/02/2017 7:22 PM CDT Sexual Orientation Straight 11/02/2017 7: 22 PM CDT documented as of this encounter Plan of Treatment Upcoming Encounters Date Type Department Care Team (Latest Contact Info) Description 01/14/2024 11:00 AM CDT Office Visit Department of Cardiovascular Diseases in [address] [phone] Nikko Dey M.D. [address] [facility] [place] [phone] Discharge Disposition: Home or Self Care 01/18/2024 2:45 PM CDT Ancillary Procedure Department of Ophthalmology in [place], [place] [address] [place] [phone] Justin Bunch M.D. [address] [place] [phone] 01/18/2024 3:15 PM CDT Ancillary Procedure Department of Ophthalmology in [place], [place] [address] [place] [phone] Justin Bunch M.D. [address] [place] [phone] 01/18/2024 3:30 PM CDT Office Visit Department of Ophthalmology in [place], [place] [address] [place] [phone] Justin Bunch M.D. [address] [place] [phone] 02/23/2024 10:00 AM CDT Appointment Department of Laboratory Medicine in [address] [place] [phone] Cammy Silva M.D. [address] [place] [phone] 02/25/2024 1:30 PM CDT Education Division of Endocrinology in [place], [place] [address] [place] [phone] Cammy Silva M.D. [address] [place] [phone] 02/25/2024 3:00 PM CDT Office Visit Division of Endocrinology in [place], [place] [address] [place] [address] Cammy Silva M.D. [address] [place] [address] documented as of this encounter Visit Diagnoses Not on filedocumented in this encounter Additional Health Concerns Assessment Noted Time PHQ-9 Depression Total Score: 4 06/06/19 23 2:04 PM CASEWORK SUPERVISOR documented as of this encounter Care Teams Web Designer Developer Relationship Specialty Start Date End Date Clover Delaney M.D. [address] [place] [phone] PCP - General Internal Medicine 11/23/17 documented as of this encounter
--- OUTSIDE RECORDS SUMMARY | 2024-01-10 10:31 | XMS_ITS | Encounter Summary ---
Author Organization [facility] Address [address] [place] [address] Care Team Providers Care Cancer Registry Coordinator Name Role Phone Clover Delaney M.D. Primary Care Provider +1- [phone] Encounter Details Date Type Department Care Team (Late st Contact Info) Description 09/01/2023 Clinical Communication Department of Community Internal Medicine in [place], [place] [address] [place] [address] [place] [phone] Clover Delaney M.D. [address] [place] [phone] Social History Tobacco Use Types Packs/Day Years Used Date Smoking Tobacco: Former Cigarettes 0 1961 - 12/26/1980 Passive Smoke Exposure: Never Smokeless Tobacco: Never Alcohol Use Standard Drinks/Week Comments Yes 0 (1 standard drink = 0.6 oz pur e alcohol) Maybe one drink per month [facility] Utilities Answer Date Recorded In the past 12 months has e [employer], gas, oil, or water [employer] threatened to shut off services in your [...] How often do you attend chur or sikh services? Never 07/28/2022 Do you [...] Date Recorded PHQ-2 Score 2 05/28/2023 [facility] [place] of Occupat ional Health - Occupational Stress [...] your living situation today? I have a [facility] place to live 08/28/2023 Education Answer Date Recorded What is the highest level of school you have completed or the highest degree you have received? Professional school degree (e.g., , DDS, DVM, NACHO) 10/10/2020 Sex and Gender Information Value Date Recorded Sex Assigned at Male 05/13/2021 10:11 AM AUTOMATION MANAGER Gender Identity Male 11/02/2017 7:22 PM CDT Sexual Orientation Straight 11/02/2017 7: 22 PM CDT documented as of this encounter Plan of Treatment Upcoming Encounters Date Type Department Care Team (Latest Contact Info) Description 01/14/2024 11:00 AM CDT Office Visit Department of Cardiovascular Diseases in [address] [phone] Nikko Dey M.D. [address] [place] [phone] Discharge Disposition: Home or Self Care 01/18/2024 2:45 PM CDT Ancillary Procedure Department of Ophthalmology in [place], [place] [address] [place] [phone] Justin Bunch M.D. [address] [place] [phone] 01/18/2024 3:15 PM CDT Ancillary Procedure Department of Ophthalmology in [place], [place] [address] [place] [phone] Justin Bunch M.D. [address] [place] [phone] 01/18/2024 3:30 PM CDT Office Visit Department of Ophthalmology in [place], [place] [address] [place] [phone] Justin Bunch M.D. [address] [place] [phone] 02/23/2024 10:00 AM CDT Appointment Department of Laboratory Medicine in [address] [place] [phone] Cammy Silva M.D. [address] [place] [phone] 02/25/2024 1:30 PM CDT Education Division of Endocrinology in [place], [place] [address] [place] [phone] Cammy Silva M.D. [address] [place] [phone] 02/25/2024 3:00 PM CDT Office Visit Division of Endocrinology in [place], [place] [address] [place] [address] Cammy Silva M.D. [address] [place] [phone] documented as of this encounter Visit Diagnoses Not on filedocumented in this encounter Additional Health Concerns Assessment Noted Time PHQ-9 Depression Total Score: 4 06/06/19 23 2:04 PM AUTOMATION MANAGER documented as of this encounter Care Teams Cancer Registry Coordinator Relationship Specialty Start Date End Date Clover Delaney M.D. [address] [place] [phone] PCP - General Internal Medicine 11/23/17 documented as of this encounter
--- OUTSIDE RECORDS SUMMARY | 2024-01-10 10:31 | XMS_ITS ---
Author Organization [facility] Address [address] [place] [address] Care Team Providers Care Curve Cleaner Name Role Phone Clover Delaney M.D. Primary Care Provider [phone]- [phone] Kidney Watch Assembler Program Status:Identified (Enrolling) Start date:04/01/2023 Continued Care and Services Coordination
--- OUTSIDE RECORDS SUMMARY | 2024-01-10 10:31 | XMS_ITS | Encounter Summary ---
Author Organization [facility] Address [address] [place] [address] Care Team Providers Care Insurance Adviser Name Role Phone Clover Delaney M.D. Primary Care Provider +1 [phone] Encounter Details Date Type Department Care Team (Latest Contact Info) Description 10/15/2023 2:20 PM CDT Hospital Encounter Department of Laboratory Medicine in [address] [phone] Luis Carrion M.B.B.S. 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 I have a [facility] place to live 08/28/2023 Education Answer Date Recorded What is the highest level of school you have completed or the highest degree you have received? Professional school degree (e.g., MD, DDS, DVM, NACHO) 10/10/2020 Sex and Gender Information Value Date Recorded Sex Assigned at Male 05/13/2021 10:11 AM SILO ERECTOR Gender Identity Male 11/02/2017 7:22 PM [...] as needed. miscellaneous medical supply [facility] [...] Refill(s) 10/20/2016 miscellaneous medical supply [facility] Head Gear for CPAP Machine See Instructions, fax to patient at [phone], 1 each 01/17/2014 MULTIVITAMIN ORAL Daily Multiple Vitamins See Instructions, Take 1 tablet by mouth daily. 07/23/2013 ONETOUCH DELICA LANCETS 33 gauge [facility] [place] 08/02/2018 OneTouch Ultra Test StripsIndications:Diabet es [...] Office Visit Department of Cardiovascular Diseases in [address] [phone] Nikko Dey M.D. [address] [place] [phone] Discharge Disposition: Home or Self Care 01/18/2024 2:45 PM CDT Ancillary Procedure Department of Ophthalmology in [place], [place] [address] [place] [phone] Justni Bunch M.D. [address] [place] [phone] 01/18/2024 3:15 PM CDT Ancillary Procedure Department of Ophthalmology in [place], [place] [address] [place] [phone] Justin Bunch M.D. [address] [place] [phone] 01/18/2024 3:30 PM CDT Office Visit Department of Ophthalmology in [place], [place] [address] [place] [phone] Justin Bunch M.D. [address] [place] [phone] 02/23/2024 10:00 AM CDT Appointment Department of Laboratory Medicine in [address] [place] [address] Cammy Silva M.D. [address] [place] [phone] 02/25/2024 1:30 PM CDT Education Division of Endocrinology in [place], [place] [address] [place] [phone] Cammy Silva M.D. [address] [place] [phone] 02/25/2024 3:00 PM CDT Office Visit Division of Endocrinology in [place], [place] [address] [place] [phone] Cammy Silva M.D. 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) documented in this encounter Results * (ABNORMAL) Urinalysis, with Microscopic: Urine, Midstream [...] 8.0 10/15/2023 2:52 PM CDT CNFL Specific [place] 1.020 1.001 - 1.035 10/15/2023 2:52 PM [...] PM CDT 10/15/2023 2:48 PM CDT Luis Kim LAB URINE ORDERABL [facility] [address] [place] [phone], [facility] CNFL [facility] in [address] [address] documented in this encounter Visit Diagnoses Diagnosis 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 [address] [place] [phone] PCP - General Internal Medicine 11/23/17 documented as of this encounter
--- OUTSIDE RECORDS SUMMARY | 2024-01-10 10:31 | XMS_ITS | Encounter Summary ---
Author Organization [facility] Address [address] [place] [address] Care Team Providers Care Hris Coordinator Name Role Phone Clover Delaney M.D. Primary Care Provider [phone] Reason for Visit * Outpatient (Routine) - Authorized Specialty Diagnoses / Procedures Referred By Yenny t Referred To Contact Diagnoses Atrial Fibrillation Unspecified (HCC) Hypertensive Chronic Kidney Disease With Stage 5 Chronic Kidney Disease Or End Stage Renal Disease, Chronic Kidney Disease Stage 5 (HCC) Procedures ECG Heart rhythm monitor (Holter) Clover Delaney M.D. [address] [place] [address] [facility] Region Referral ID Status Reason Start Date Expiration Date V isits Requested Visits Authorized [id number] Authorized 08/19/2023 08/18/2024 1 1 Encounter Details Date Type Department Care Team (Latest Contact Info) Description 10/15/2023 3:30 PM CDT Ancillary Procedure Department of Cardiovascular Diseases in [address] [phone] Clover Delaney M.D. [address] [place] [phone] Atrial Fibrillation Unspecified (HCC); Hypertensive [...] e alcohol) Maybe one drink per month [facility] Utilities Answer Date Recorded In the past 12 months has e [employer], oil, or water [employer] threatened to shut off services in your [...] Answer Date Recorded PHQ-2 Score 2 05/28/2023 [facility] of Occupat ional Health - [...] your living situation today? I have a gerri place to live 08/28/2023 Education Answer Date Recorded What is the highest level of school you have completed or the highest degree you have received? Professional school degree (e.g., , MAREK, DVM, NACHO) 10/10/2020 Sex and Gender Information Value Date Recorded Sex Assigned at Male 05/13/2021 10:11 AM HOME CONNECT LPN Gender Identity Male 11/02/2017 7:22 PM CDT Sexual Orientation Straight 11/02/2017 7: 22 PM CDT documented as of this encounter Nursing Notes * Anne Segal R.N. - 10/15/2023 3:30 PM CDT Patient came in today for 24 hour with 7 day cascade MoMe placement. Patient instructed not to use any heated blankets or pads, no showers, bathing, or get the MoMe wet. Instructed on how to change MoMe batteries: batteries will be changed out in the AM and PM during the duration of the MoMe, and a new fully charged battery will be placed in the device before returning. The patient was able to show how to change batteries. Patient instructed where and how to return device, and will return MoMe at end of service. documented in this encounter Plan of Treatment Upcoming Encounters Date Type Department Care Team (Latest Contact Info) Description 01/14/2024 11:00 AM CDT Office Visit Department of Cardiovascular Diseases in [address] [phone] Nikko Dey M.D. [address] [place] [phone] Discharge Disposition: Home or Self Care 01/18/2024 2:45 PM CDT Ancillary Procedure Department of Ophthalmology in [place], [place] [address] [place] [address] Justin Bunch M.D. [address] [place] [phone] 01/18/2024 3:15 PM CDT Ancillary Procedure Department of Ophthalmology in [place], [place] [address] [place] [phone] Justin Bunch M.D. [address] [place] [phone] 01/18/2024 3:30 PM CDT Office Visit Department of Ophthalmology in [place], [place] [address] [place] [phone] Justin Bunch M.D. [address] [place] [phone] 02/23/2024 10:00 AM CDT Appointment Department of Laboratory Medicine in [address] [place] [address] Cammy Silva M.D. [address] [place] [phone] 02/25/2024 1:30 PM CDT Education Division of Endocrinology in [place], [place] [address] [place] [phone] Cammy Silva M.D. [address] [place] [phone] 02/25/2024 3:00 PM CDT Office Visit Division of Endocrinology in [place], [place] [address] [place] [phone] Cammy Silva M.D. [address] [place] [phone] documented as of this encounter Procedures Procedure Name Priority Date/Time Associated Diagnosis Comments HOLTER MONITOR - IN CLINIC DIRECTOR DENTAL SERVICES Routine 10/16/2023 3:14 PM CDT Atrial Fibrillation Unspecified (HCC) Hypertensive Chronic Kidney Disease With Stage 5 Chronic Kidney Disease Or End Stage Renal Disease, Chronic Kidney Disease Stage 5 (HCC) documented in this encounter Results * HOLTER MONITOR - IN CLINIC DIRECTOR DENTAL SERVICES (10/16/2023 3:14 PM CDT) Min Heart Rate [...] Duration 0 duration INFOBION IC MOME AF [place] 0 percent INFOBIONIC MOME Symptom Count 0 count INFOBI ONIC MOME 10/15/2023 2:47 PM CDT Narrative INFOBIONIC MOME - 10/19/2023 9:26 AM CDT [place] Fall 1. The basic rhythm was [...] 1%. 4. No symptomatic events were noted. Baseball Scout: SHANITA Garcia/ SHANITA Read Fellow: Mayelin Torres MD A Holter monitor with cascade to extended monitoring was ordered for the indication of Atrial fibrillation or flutter calculate burden/% time in AF. During the Holter monitoring period, the patient did not have atrial fibrillation or flutter >=30. Therefore, the study was cascaded to extended monitoring. Procedure Note Stan Vasquez M.D. - 10/19/2023 [place] Fall 1. The basic rhythm was [...] 1%. 4. No symptomatic events were noted. Baseball Scout: SHANITA Garcia/ SHANITA Read Fellow: Mayelin Torres MD A Holter monitor with cascade to extended monitoring was ordered for theindication of Atrial fibrillation or flutter calculate burden/% time inAF. During the Holter monitoring period, the patient did not have atrialfibrillation or flutter >=30. Therefore, the study was cascaded to extended monitoring. Clover Delaney M.D. CV CARDIAC SERVICES PROCEDURES INFOBIONIC MOME NA documented in this encounter Visit Diagnoses Diagnosis Atrial Fibrillation Unspecified (HCC) Hypertensive Chronic Kidney Disease With Stage 5 Chronic Kidney Disease Or End Stage Renal Disease, Chronic Kidney Disease Stage 5 (HCC) documented in this encounter Additional Health Concerns Assessment Noted Time PHQ-9 Depression Total Score: 4 06/06/19 23 2:04 PM HOME CONNECT LPN documented as of this encounter Care Teams Hris Coordinator Relationship Specialty Start Date End Date lCover Delaney M.D. [address] [place] [phone] PCP - General Internal Medicine 11/23/17 documented as of this encounter
--- OUTSIDE RECORDS SUMMARY | 2024-01-10 10:31 | XMS_ITS | Encounter Summary ---
Author Organization [facility] Address [address] [place] [address] Care Team Providers Care Nurse Leader Name Role Phone Clover Delaney M.D. Primary Care Provider [phone] Encounter Details Date Type Department Care Team (Latest Contact Info) Description 10/15/2023 2:21 PM CDT - 10/15/2023 11:59 PM CDT Hospital Encounter Department of Laboratory Medicine in [address] [phone] Luis Carrion M.B.B.S. 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) Discharge Disposition: Home or Self Care Social History Tobacco Use Types Packs/Day Years Used Date Smoking Tobacco: Former Cigarettes 0 1961 - 12/26/1980 Passive Smoke Exposure: Never Smokeless Tobacco: Never Alcohol Use Standard Drinks/Week Comments Yes 0 (1 standard drink = 0.6 oz pur e alcohol) Maybe one drink per month [facility] Utilities Answer Date Recorded In the [...] Date Recorded PHQ-2 Score 2 05/28/2023 [facility] of Occupat ional Health [...] Assigned at Male 05/13/2021 10:11 AM INDUSTRIAL SAFETY ENGINEER Gender Identity Male 11/02/2017 7:22 PM [...] by mouth as needed. miscellaneous medical supply [facility] [...] each, 0 Refill(s) 10/20/2016 miscellaneous medical supply [facility] Head Gear for CPAP Machine See Instructions, fax to patient at [phone], 1 each 01/17/2014 MULTIVITAMIN ORAL Daily Multiple [...] Office Visit Department of Cardiovascular Diseases in [address] [phone] Nikko Dey M.D. [address] [place] [phone] Discharge Disposition: Home or Self Care 01/18/2024 2:45 PM CDT Ancillary Procedure Department of Ophthalmology in [place], [place] [address] [place] [phone] Justin Bunch M.D. [address] [place] [phone] 01/18/2024 3:15 PM CDT Ancillary Procedure Department of Ophthalmology in [place], [place] [address] [place] [phone] Justin Bunch M.D. [address] [place] [phone] 01/18/2024 3:30 PM CDT Office Visit Department of Ophthalmology in [place], [place] [address] [place] [phone] Justin Bunch M.D. [address] [place] [phone] 02/23/2024 10:00 AM CDT Appointment Department of Laboratory Medicine in [address] [place] [phone] Cammy Silva M.D. [address] [place] [phone] 02/25/2024 1:30 PM CDT Education Division of Endocrinology in [place], [place] [address] [place] [phone] Cammy Silva M.D. [address] [place] [phone] 02/25/2024 3:00 PM CDT Office Visit Division of Endocrinology in [place], [place] [address] [place] [phone] Cammy Silva M.D. 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 [address] [place] [phone], [facility] CNFL [facility] in [address] [address] * (ABNORMAL) Sedimentation Rate (10/15/2023 2:32 PM CDT) Sedimentation Rate, B 77(H) 0 - 22 mm/1 h 10/15/2023 7:41 PM CDT RDWG Blood (Blood, Venous) 10/15/2023 2:32 PM CDT 10/15/2023 6:50 PM CDT Luis Kim LAB BLOOD ADD-ON 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 [address] [place] [phone] PCP - General Internal Medicine 11/23/17 documented as of this encounter
--- OUTSIDE RECORDS SUMMARY | 2024-01-10 10:31 | XMS_ITS | Encounter Summary ---
Author Organization [facility] Address [address] [place] [address] Care Team Providers Care Palliative Nurse Name Role Phone Clover Delaney M.D. 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 [address] [place] [phone] [facility] Referral ID Status Reason Start Date Expiration Date Visits Re quested Visits Authorized [id number] Closed 06/30/2023 12/29/2024 1 1 Encounter Details Date Type Department Care Team (Latest Contact Info) Description 10/05/2023 1:30 PM CDT Comprehensive Visit Division of Pulmonary Medicine in [place], [place] [address] [place] [phone] Luis Carrion M.B.B.S. 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) Social History Tobacco Use Types Packs/Day Years Used Date Smoking Tobacco: Former Cigarettes 0 1961 - 12/26/1980 Passive Smoke Exposure: Never Smokeless Tobacco: Never Alcohol Use Standard Drinks/Week Comments Yes 0 (1 standard drink = 0.6 oz pur e alcohol) Maybe one drink per month [facility] Utilities Answer Date Recorded In [...] Answer Date Recorded PHQ-2 Score 2 05/28/2023 [facility] [place] of Occupat ional Health - Occupational Stress [...] Assigned at Male 05/13/2021 10:11 AM ASSISTANT AUDITOR Gender Identity Male 11/02/2017 7:22 PM [...] Procedure: COLONOSCOPY; Surgeon: Artur Joseph M.D.; Location: [facility] GI LAB HAND-ASSISTED LAPAROSCOPIC COLECTOMY LEFT WITH ANASTOMOSIS N/A 01/13/2018 Procedure: HAND-ASSISTED LAPAROSCOPIC COLECTOMY LEFT WITH ANASTOMOSIS; Surgeon: Garland Abdi M.D.; Location: [facility] OR LENSECTOMY Left 03/03/2022 Procedure: LENSECTOMY.; [...] 23 GAUGE.; Surgeon: Da Paez M.D.; Location: [facility] OR SOCIAL HISTORY Social History Tobacco Use [...] in 1980. 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 . FAMILY HISTORY Family History Problem Relation [...] Office Visit Department of Cardiovascular Diseases in [address] [phone] Nikko Dey M.D. [address] [place] [phone] Discharge Disposition: Home or Self Care 01/18/2024 2:45 PM CDT Ancillary Procedure Department of Ophthalmology in [address] [phone] uJstin Bunch M.D. [address] [place] [phone] 01/18/2024 3:15 PM CDT Ancillary Procedure Department of Ophthalmology in [place], [place] [address] [place] [phone] Justin Bunch M.D. [address] [place] [phone] 01/18/2024 3:30 PM CDT Office Visit Department of Ophthalmology in [place], [place] [address] [place] [phone] Justin Bunch M.D. [address] [place] [phone] 02/23/2024 10:00 AM CDT Appointment Department of Laboratory Medicine in [address] [place] [phone] Cammy Silva M.D. [address] [place] [phone] 02/25/2024 1:30 PM CDT Education Division of Endocrinology in [place], [place] [address] [place] [phone] Cammy Silva M.D. [address] [place] [phone] 02/25/2024 3:00 PM CDT Office Visit Division of Endocrinology in [place], [place] [address] [place] [address] Cammy Silva M.D. [address] [place] [phone] documented as of this encounter Results * (ABNORMAL) Urinalysis, with [...] 8.0 10/15/2023 2:52 PM CDT CNFL Specific Sedan 1.020 1.001 - 1.035 10/15/2023 2:52 PM [...] PM CDT Luis Kim LAB URINE ORDERABL ES [facility] [address] [place] [address], [facility] CNFL [facility] [place] [address] * CRP (C-Reactive Protein) (10/15/2023 2:32 PM CDT) C-Reactive Protein (CRP), P <3.0 <5.0 mg/L 10/15/2023 2:55 PM CDT CNFL Blood (Blood, Venous) 10/15/2023 2:32 PM CDT 10/15/2023 2:34 PM CDT Luis CallesS. LAB BLOOD ADD-ON Performing Organization Address City/[facility]/ZIP Co de Phone Number [facility] [address] [place] [phone], [facility] CNFL [facility] in [address] [address] * (ABNORMAL) Sedimentation Rate (10/15/2023 2:32 PM CDT) Sedimentation Rate, B 77(H) 0 - 22 mm/1 h 10/15/2023 7:41 PM CDT RDWG Blood (Blood, Venous) 10/15/2023 2:32 PM CDT 10/15/2023 6:50 PM CDT Luis Elizabeth.S. 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 [address] [facility] [place] [phone] PCP - General Internal Medicine 11/23/17 documented as of this encounter
--- OUTSIDE RECORDS SUMMARY | 2024-01-10 10:31 | XMS_ITS | Encounter Summary ---
Author Organization [facility] Address [address] [place] [address] Care Team Providers Care Automation Analyst Name Role Phone Clover Delaney M.D. Primary Care Provider [phone] Encounter Details Date Type Department Care Team (Latest Contact Info) Description 10/12/2023 7:31 AM CDT - 10/12/2023 11:59 PM CDT Hospital Encounter Department of Pulmonary Medicine in [place], [place] [address] [place] [phone] Clover Delaney M.D. [address] [place] [phone] Atrial Fibrillation Unspecified (HCC); Hypertensive Chronic Kidney [...] Recorded In the past 12 months has [employer] electric, gas, oil, or water company threatened [...] week 07/28/2022 How often do you attend [facility] or orthodoxy services? Never 07/28/2022 Do [...] Answer Date Recorded PHQ-2 Score 2 05/28/2023 [facility] [place] of Occupat ional Health - Occupational Stress [...] your living situation today? I have a [facility] place to live 08/28/2023 Education Answer Date Recorded What is the highest level of school you have completed or the highest degree you have received? Professional school degree (e.g., , DDS, DVM, NACHO) 10/10/2020 Sex and Gender Information Value Date Recorded Sex Assigned at Male 05/13/2021 10:11 AM AROMATHERAPIST Gender Identity Male 11/02/2017 7:22 PM CDT [...] by mouth as needed. miscellaneous medical supply [facility] CPAP Supplies See Instructions, CPAP machine, mask 1 ea x 4 refills, headgear 1 ea x 2 refills, tubing 1 ea x 4 refills, filters 2 ea per month, tub 1 ea x 2 refills, mask seal 1 ea x 2 refills DX G47.33, length of need 99, 1 each, 0 Refill(s) 10/20/2016 miscellaneous medical supply [facility] Head Gear for CPAP Machine See Instructions, fax to patient at [phone], 1 each 01/17/2014 MULTIVITAMIN ORAL Daily Multiple [...] Office Visit Department of Cardiovascular Diseases in [address] [phone] Nikko Dey M.D. [address] [place] [phone] Discharge Disposition: Home or Self Care 01/18/2024 2:45 PM CDT Ancillary Procedure Department of Ophthalmology in [place], [place] [address] [place] [address] Justin Bunch M.D. [address] [place] [phone] 01/18/2024 3:15 PM CDT Ancillary Procedure Department of Ophthalmology in [place], [place] [address] [place] [address] Justin Bunch M.D. [address] [place] [phone] 01/18/2024 3:30 PM CDT Office Visit Department of Ophthalmology in [place], [place] [address] [place] [phone] Justin Bunch M.D. [address] [place] [phone] 02/23/2024 10:00 AM CDT Appointment Department of Laboratory Medicine in [address] [place] [address] Cammy Silva M.D. [address] [place] [phone] 02/25/2024 1:30 PM CDT Education Division of Endocrinology in [place], [place] [address] [place] [phone] Cammy Silva M.D. [address] [place] [phone] 02/25/2024 3:00 PM CDT Office Visit Division of Endocrinology in [place], [place] [address] [place] [address] Cammy Silva M.D. [address] [place] [phone] documented as of this encounter Procedures Procedure Name Priority Date/Time Associated Diagnosis Comments PUL HOME OVERNIGHT OXIMETRY Routine 10/21/2023 Atrial Fibrillation Unspecified (HCC) Hypertensive Chronic Kidney Disease With Stage 5 Chronic Kidney Disease Or End Stage Renal Disease, Chronic Kidney Disease Stage 5 (HCC) documented in this encounter Results * Home Overnight Oximetry (10/21/2023) 10/21/2023 Impressions [facility] - 11/02/2023 4:01 PM CDT Overnight oximetry was performed on CPAP. ??Baseline saturation was within normal limits. ??Mild oscillatory fluctuations were noted but the oxyhemoglobin desaturation index was within normal limits. Impression: ??Nocturnal saturations appear to be well supported on current CPAP settings. Physician: Bekah Card M.B.B.S. [id number] Narrative Procedure Note Bekah Card M.BJosé LuisB.S. - 11/02/2023 IMPRESSION: Overnight oximetry was performed on CPAP. Baseline saturation was withinnormal limits. Mild oscillatory fluctuations were noted but theoxyhemoglobin desaturation index was within normal limits. Impression: Nocturnal saturations appear to be well supported on currentCPAP settings. Physician: Bekah Card M.B.B.S. [id number] Clover Delaney M.D. PFT ORDERABLES [facility] documented in this encounter Visit Diagnoses Diagnosis Atrial Fibrillation Unspecified (HCC) Hypertensive Chronic Kidney Disease With Stage 5 Chronic Kidney Disease Or End Stage Renal Disease, Chronic Kidney Disease Stage 5 (HCC) documented in this encounter Additional Health Concerns Assessment Noted Time PHQ-9 Depression Total Score: 4 06/06/19 23 2:04 PM AROMATHERAPIST documented as of this encounter Care Teams Automation Analyst Relationship Specialty Start Date End Date Clover Delaney M.D. [address] [place] [phone] PCP - General Internal Medicine 11/23/17 documented as of this encounter
== END 2024-01-04 15:25 | disposition home or self-care (01) ==
LOC: NFLDREF 01-10 10:27
PROVIDERS: PCP Pediatrics; Referring Provider Pediatrics; Visit Provider Internal Medicine Nephrology
DX: N18.5 Chronic kidney disease, stage 5 (principal)
CPT/HCPCS: 80069; 82043; 82570

== ENCOUNTER 2024-01-29 13:15 | Outpatient (CLI) | payer MEDICARE, SELFPAY ==
--- OUTSIDE RECORDS SUMMARY | 2024-02-02 11:15 | XMS_ITS ---
Author Organization [facility] Address [address] [place] [address] Care Team Providers Care Receiver/Laborer Name Role Phone Unavailable Unavailable Unavailable Surgery Details Not on file Complications Check Surgery Details section. Procedure Estimated Blood Loss Check Surgery Details section. Procedure Findings Check Surgery Details section. Procedure Specimens Taken Check Surgery Details section.
--- OUTSIDE RECORDS SUMMARY | 2024-02-02 11:15 | XMS_ITS | Encounter Summary ---
Author Organization [facility] Address [address] [place] [address] Care Team Providers Care Automobile Body Repairer Name Role Phone Clover Delaney M.D. Primary Care Provider [phone] Reason for Referral * Outpatient (Routine) - Authorized Specialty Diagnoses / Procedures Referred By Yenny t Referred To Contact Ophthalmology Justin Bunch M.D. [address] [place] [phone] [facility] Referral ID Status Reason Start Date Expiration Date V isits Requested Visits Authorized [id number] Authorized 01/18/2024 07/19/2025 1 1 Scheduling Instructions FU 4 months with OCT macula and optos FA transit RIGHT Encounter Details Date Type Department Care Team (Late st Contact Info) Description 01/18/2024 Orders Only Department of Ophthalmology in [place], [place] [address] [place] [phone] Justin Bunch M.D. 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) Social History Tobacco Use Types Packs/Day Years Used Date Smoking Tobacco: Former Cigarettes 0 1961 - 12/26/1980 Passive Smoke Exposure: Never Smokeless Tobacco: Never Alcohol Use Standard Drinks/Week Comments Yes 0 (1 standard drink = 0.6 oz pur e alcohol) Maybe one drink per month [facility] Utilities Answer Date Recorded In the [...] Assigned at Male 05/13/2021 10:11 AM MARINE RESOURCE ECONOMIST Gender Identity Male 11/02/2017 7:22 PM CDT Sexual Orientation Straight 11/02/2017 7: 22 PM CDT documented as of this encounter Plan of Treatment Upcoming Encounters Date Type Department Care Team (Late st Contact Info) Description 02/02/2024 2:30 PM CDT External Outreach Division of Nephrology and Hypertension in [place], [place] [address] [place] [phone] Sera Casiano M.D., Ph.D. [address] [place] [phone] Arrived 02/23/2024 10:00 AM CDT Appointment Department of Laboratory Medicine in [address] [place] [address] Cammy Silva M.D. [address] [place] [phone] 02/25/2024 1:30 PM CDT Education Division of Endocrinology in [place], [place] [address] [place] [phone] Cammy Silva M.D. [address] [place] [phone] 02/25/2024 3:00 PM CDT Office Visit Division of Endocrinology in [place], [place] [address] [place] [phone] Cammy Silva M.D. 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) Expected: 05/19/2024, Expires: 01/17/2027 Scheduled Referrals Name Type Priority Associated Diagnoses Order Schedule Ophthalmology office visit (clinic) Outpatient Referral Routine Expected: 05/19/2024, Expires: 01/17/2027 documented as of this encounter Visit Diagnoses Diagnosis 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 [address] [place] [phone] PCP - General Internal Medicine 11/23/17 documented as of this encounter
--- OUTSIDE RECORDS SUMMARY | 2024-02-02 11:15 | XMS_ITS | Encounter Summary ---
Author Organization [facility] Address [address] [place] [address] Care Team Providers Care Director Medicaid Name Role Phone Clover Delaney M.D. Primary Care Provider [phone] Encounter Details Date Type Department Care Team (Late st Contact Info) Description 01/18/2024 Ancillary Procedure Department of Ophthalmology Social History [...] In the past 12 months has e [employer], gas, oil, or water [employer] threatened to shut off services in your [...] Answer Date Recorded PHQ-2 Score 2 05/28/2023 [facility] of Occupat ional [...] your living situation today? I have a [facility] place to live 08/28/2023 Education Answer Date Recorded What is the highest level of school you have completed or the highest degree you have received? Professional school degree (e.g., MD, DDS, DVM, NACHO) 10/10/2020 Sex and Gender Information Value Date Recorded Sex Assigned at Male 05/13/2021 10:11 AM ENTHONE SOLDER STRIPPER Gender Identity Male 11/02/2017 7:22 PM CDT Sexual Orientation Straight 11/02/2017 7: 22 PM CDT documented as of this encounter Plan of Treatment Upcoming Encounters Date Type Department Care Team (Late st Contact Info) Description 02/02/2024 2:30 PM CDT External Outreach Division of Nephrology and Hypertension in [place], [place] 200 [place] [address] Sera Casiano M.D., Ph.D. 200 [place] [address] Arrived 02/23/2024 10:00 AM CDT Appointment Department of Laboratory Medicine in [place] [address] [place] [address] Cammy Silva M.D. [address] [place] [address] 02/25/2024 1:30 PM CDT Education Division of Endocrinology in [place], [place] [address] [place] [address] Cammy Silva M.D. [address] [place] [phone] 02/25/2024 3:00 PM CDT Office Visit Division of Endocrinology in [place], [place] [address] [place] [address] Cammy Silva M.D. [address] [place] [phone] documented as of this encounter Procedures Procedure Name Priority Date/Time Associated Diagnosis Comments OPHTHALMOLOGY IMAGE EXAM Routine 01/18/2024 12:00 AM CDT documented in this encounter Results * Eyes Spectralis OCT-Ophthalmology Image Exam (01/18/2024 12:00 AM CDT) Narrative IIMS - 01/18/2024 3:44 PM CDT This order has been created [...] Total Score: 4 06/06/19 23 2:04 PM ENTHONE SOLDER STRIPPER documented as of this encounter Care Teams Director Medicaid Relationship Specialty Start Date End Date Clover Delaney M.D. [address] [place] [phone] PCP - General Internal Medicine 11/23/17 documented as of this encounter
--- OUTSIDE RECORDS SUMMARY | 2024-02-02 11:15 | XMS_ITS ---
Author Organization [facility] Address [address] [place] [address] Care Team Providers Care Casino Change Attendant Name Role Phone Clover Macias M.D. Primary Care Provider [phone] Active Problems Problem Noted Date Diagnosed Date [...] (11/09/2021): Added automatically from request for surgery [id number] Cancer Colon Transverse Personal History 020 Overview (05/29/2023): 03/2018 No evidence of metastatic disease, stable colon, diverticulosis on CT 04/09/2020 ([facility]) Repeat colonoscopy fall [address] Sewell (oncology, [place]), follow up Dr. Sewell 6-12 months with [...] of 03/2020 and determined to be benign ([facility] records). Obstructive Sleep Apnea Adult [...] medications scheduled. Therapy Complete Mónica Portillo APRN, C.NLesa, M.S. ELECTROLYTE ADMINISTRATION 09/03/2022 12/17/2020 No medications scheduled. Upgrade 2019 Therapy Plan Conversion Tahira Fall M.D. Radiation Treatments * No radiation treatments are documented for this patient in [facility]. Treatments may have been administered in another [...] (12/01/2017): Added automatically from request for surgery [id number] Hematochezia 11/09/2017 07/01/2018 Overview (11/09/2017): Added automatically from request for surgery [id number] Diarrhea 11/09/2017 09/28/2018 Overview (09/28/2018): S/P recurrent c diff. Tolerates 1500mg metformin per day. Cancer Colon Family History 01/19/2015 01/06/2020 Chronic Kidney Disease (CKD) , Stage 3b Glomerular Filtration Rate (GFR) 30 To 44 10/08/2009 08/28/2023
--- OUTSIDE RECORDS SUMMARY | 2024-02-02 11:15 | XMS_ITS | Referral Summary ---
Author Organization [facility] Address [address] [place] [address] Care Team Providers Care Crime Prevention Police Officer Name Role Phone Clover Macias M.D. Primary Care Provider [phone] Source Comments Patient records contain information from all sites at [facility]. For routine questions regarding patient records, call [phone] during business hours, M-F 8:00 AM - 5:00 PM Central Time. Record requests for emergency care only can be directed to [phone] at any time.[facility] Encounters Date Type Department Care Team Description 02/02/2024 2:30 PM CDT External Outreach Division of Nephrology and Hypertension in [place], [place] [address] [place] [address] Sera Casiano M.D., Ph.D. Arrived 01/18/2024 Orders Only Department of Ophthalmology in [place], [place] [address] [place] [address] Justin Bunch M.D. 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 Atrial Fibrillation Paroxysmal (HCC) (Primary Dx) Discharge Disposition: Home or Self Care 01/04/2024 2:30 PM CDT External Outreach Division of Nephrology and Hypertension in [place], [place] [address] [place] [address] Sera Casiano M.D., Ph.D. Failure Renal Acute (Acute Kidney Injury) (HCC) (Primary Dx); Chronic Kidney Disease Stage 4 Glomerular Filtration Rate 15-29 (HCC); Hypertension Essential Primary 12/22/2023 Refill Department of Family Medicine, [facility], in [place] [address] [place] [phone] Clover Macias M.D. Med Refill 12/06/2023 Refill Department of [facility] Internal Medicine in [place] [address] [place] [phone] Clover Macias M.D. Med Refill 11/16/2023 Refill Department of [facility] Internal Medicine in [place] [address] [place] [phone] Clover Macias M.D. Med Refill from Last 3 Months [...] 0 Refill(s) 10/20/2016 Active miscellaneous medical supply [facility] Head Gear for CPAP Machine See Instructions, fax to patient at [phone], 1 each 01/17/2014 Active MULTIVITAMIN ORAL Daily Multiple Vitamins See Instructions, Take 1 tablet by mouth daily. 07/23/2013 Active ONETOUCH DELICA LANCETS [address] [facility] 3 08/02/2018 Active loperamide (IMODIUM A-D) 2 [...] eye once daily. 5 mL 11/06/2022 Active sodium bicarbonate 650 mg tablet Take [...] each 3 05/08/2023 Active OneTouch Ultra Test StripsIndications: Diabetes Mellitus Type 2 (HCC) Use to test once daily. 100 strip 3 06/03/2023 Active doxazosin (CARDURA) 4 mg tablet Take [...] days for 4 doses. 2 mL 08/12/2023 Active Additional Information Patient taking differently:7.5 mg [...] 7 (seven) days. 6 mL 3 09/03/2023 Active atorvastatin (LIPITOR) 40 mg tabletIndications: Morbid Obesity (HCC) Take 1 tablet (40 mg total) by mouth daily. 90 tablet 3 06/29/2023 Active irbesartan (AVAPRO) 75 mg tablet Take 1 tablet (75 mg total) by mouth daily. 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 1 each 08/18/2023 Active torsemide (DEMADEX) 20 mg tablet Take 2 tablets (40 mg total) by mouth daily. 180 tablet 3 08/28/2023 5 Active Additional Information Patient taking differently: 20 mgoral Daily, Reported on 09/08/2023 carvediloL (COREG) 12.5 mg tablet Take 0.5 tablets (6.25 mg total) by mouth 2 (two) times a day with meals. 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 6 kit 3 08/31/2023 Active prednisoLONE acetate (PRED FORTE) 1 % ophthalmic suspension INSTILL ONE DROP INTO LEFT EYE ONCE DAILY 5 mL 2 09/07/2023 Active insulin glargine 100 unit/mL (3 mL) injection Inject 18 Units under the skin at bedtime. Pharmacy select brand per patient insurance/prefere nce. Active apixaban (Eliquis) 2.5 mg tablet take one tablet by mouth twice daily 180 tablet 3 11/17/2023 Active FLUoxetine (PROzac) 10 mg capsule take one capsule by mouth one time daily 90 capsule 3 12/08/2023 Active predniSONE (Deltasone) 5 mg tablet take one tablet by mouth one time daily 90 tablet 3 12/23/2023 Active cloNIDine (Catapres) 0.1 mg tablet Take 1 tablet (0.1 mg total) by mouth 2 (two) times a day. 180 tablet 3 12/15/2023 4 Discontinu ed(Therapy completed) Hospital, Clinic, or Other Facility Administered Medication Ordered Dose Route Frequency Start Date End Date Status sodium chloride 0.9 % injection 3 mL 3 mL IV As needed 09/08/2022 Active sodium chloride 0.9 % injection 3 mL 3 mL IV As needed 01/18/2024 Active fluorescein 100 mg/mL (10 %) injection 500 mg 500 mg IV Once in imaging 01/18/2024 Active Active Problems Problem Noted Date Diagnosed [...] (11/09/2021): Added automatically from request for surgery [id number] Cancer Colon Transverse Personal History 020 Overview (05/29/2023): 03/2018 No evidence of metastatic disease, stable colon, diverticulosis on CT 04/09/2020 ([facility]) Repeat colonoscopy fall [address] Sewell (oncology, [place]), follow up Dr. Sewell 6-12 months with [...] of 03/2020 and determined to be benign ([facility]). Obstructive Sleep Apnea [...] (12/01/2017): Added automatically from request for surgery [id number] Hematochezia 11/09/2017 07/01/2018 Overview (11/09/2017): Added automatically from request for surgery [id number] Diarrhea 11/09/2017 09/28/2018 Overview (09/28/2018): S/P recurrent [...] e alcohol) Maybe one drink per month [facility] Utilities Answer Date Recorded In the past 12 months has e [employer], gas, oil, or water company threatened to [...] PHQ-2 Score 2 05/28/2023 [facility] of Occupat ional Health - Occupational Stress [...] your living situation today? I have a [facility] place to live 08/28/2023 [...] Sign Reading Time Taken Comments Blood Pressure 149/84 01/14/2024 10:53 AM CDT Pulse 60 01/14/2024 10:48 AM CDT Temperature 35.7 ??C (96.3 ??F) 01/14/2024 10:48 AM C DT Respiratory Rate 17 04/07/2023 2:34 PM VARNISH BLENDER Oxygen Saturation 96% 01/14/2024 10:48 AM CDT Inhaled Oxygen Concentration - - Weight 130 kg (286 lb 9.6 oz) 01/14/2024 10:48 A M CDT Height 177.5 cm (5' 9.88) 10/05/2023 1:25 PM CD T Body Mass Index 41.26 10/05/2023 1:25 PM CDT Plan of Treatment Upcoming Encounters Date Type Department Care Team (Late st Contact Info) Description 02/02/2024 2:30 PM CDT External Outreach Division of Nephrology and Hypertension in [place], [place] [address] [place] [phone] Sera Casiano M.D., Ph.D. [address] [place] [phone] Arrived 02/23/2024 10:00 AM CDT Appointment Department of Laboratory Medicine in [address] [facility] [address] Cammy Silva M.D. [address] [place] [phone] 02/25/2024 1:30 PM CDT Education Division of Endocrinology in [place], [place] [address] [place] [phone] Cammy Silva M.D. [address] [place] [phone] 02/25/2024 3:00 PM CDT Office Visit Division of Endocrinology in [place], [place] [address] [place] [phone] Cammy Silva M.D. 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) OPHTHALMOLOGY IMAGE EXAM Routine 01/18/2024 12:00 AM CDT COMPREHENSIVE METABOLIC PANEL, S/P Routine 08/20/2023 3:17 PM CDT Atrial Fibrillation Unspecified (HCC) Hypertensive Chronic Kidney Disease With Stage 5 Chronic Kidney Disease Or End Stage Renal Disease, Chronic Kidney Disease Stage 5 (HCC) ALBUMIN, RANDOM, U Routine 07/06/2023 9: 22 AM CDT Hypertension And Chronic Kidney Disease Stage 5 (HCC) Proteinuria 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 COLONOSCOPY Routine 04/07/2023 1:48 PM VARNISH BLENDER [...] Recently Relevant to Health Maintenance Results * Optical Coherence Tomography - Macula/Retina - OU - Both Eyes (01/18/2024 3:38 PM CDT) Narrative OPHTHALMOLOGY IMAGING EXAM - 01/18/2024 4:42 PM CDT Right Eye OCT device used was Spectralis . Left Eye OCT device used was Spectralis . Notes PC See interpretation in note section Justin Bunch M.D. OPHTH TOMOGRAPHY OPHTHALMOLOGY IMAGING EXAM * Eyes Spectralis OCT-Ophthalmology Image Exam (01/18/2024 12:00 AM CDT) Narrative IIMS - 01/18/2024 3:44 PM CDT This order has been created and auto-finalized to support the import of images acquired without order. The clinical documentation to support these images can be found on the encounter that produced images. Provider Not In System IMG NON RAD IMAGI NG PROCEDURES IIMS NA * (ABNORMAL) Comprehensive Metabolic Panel (08/20/2023 3:17 [...] CDT Clover Macias M.D. LAB BLOOD ADD-ON [facility] [address] [place] [address], [facility] RDWG [facility] in [place] [address] * (ABNORMAL) Albumin, Random, Urine (07/06/2023 9:22 AM CDT) Microalbumin 2309.6 mg/L 07/06/2023 1:30 PM CDT RDWG Creatinine 69 mg/dL 07/06/2023 12:51 PM CDT RDWG Albumin/Creatinin e Ratio 3347(H) <17 mg/g 07/06/2023 1:30 PM CDT RDWG Urine (Urine, Voided) 07/06/2023 9:22 AM CDT 07/06/2023 11:59 AM CDT Sera Hyman M.D., Ph.D. LAB UR INE ORDERABLES [facility] [address] [place] [address], [facility]DW[facility] in [address] [phone] * (ABNORMAL) Hemoglobin A1c (03/30/2023 12:21 PM [...] VARNISH BLENDER 03/30/2023 12:23 PM VARNISH BLENDER Mónica Portillo APRN, C.N.P., M.S. LAB BLOOD ADD-ON [facility] [address] [place] [address], [facility] CNFL [facility] in [address] [address] * US Aorta AAA Screening (07/22/2017 7:39 [...] iliac arteries are nonaneurysmal. Clover Macias M.D. IMBoni US PROCEDURES from Last 3 Months or Most Recently Relevant to Health Maintenance Advance Directives For more information, please contact: [phone] Documents on File Type Date Recorded Patient Copper Miner Expl anation Advance Directives 12/22/2017 11:40 AM [facility] Care Directive * Full Code (Latest [...] Agents on File Name Relationship Healthcare Agent Shahbaz banda Communication Sayra Bedoyacatrachoemmanuelle Spouse Health Care Agent Kathie Silveira Daughter First Alternate Health Care Agent Monica Boggs Daughter First Alternate Health Care Agent Care Teams Crime Prevention Police Officer Relationship Specialty Start Date End Date Clover Macias M.D. [address] [place] [phone] PCP - General Internal Medicine 11/23/17
--- OUTSIDE RECORDS SUMMARY | 2024-02-02 11:15 | XMS_ITS | Encounter Summary ---
Author Organization [facility] Address [address] [place] [address] Care Team Providers Care Hearing Dog Trainer Name Role Phone Clover Delaney M.D. Primary Care Provider [phone] Reason for Visit * Appointment Request (Routine) - Closed Specialty Diagnoses / Procedures Referred By Yenny t Referred To Contact Nephrology and Hypertension Referral ID Status Reason Start Date Expiration Date Visits Re quested Visits Authorized [id number] Closed 01/08/2024 01/07/2025 1 1 Encounter Details Date Type Department Care Team (Late st Contact Info) Description 02/02/2024 2:30 PM CDT External Outreach Division of Nephrology and Hypertension in [place], [place] [address] [place] [phone] Sera Casiano M.D., Ph.D. [address] [place] [address] Arrived Social History Tobacco Use Types Packs/Day Years Used Date Smoking Tobacco: Former Cigarettes 0 1961 - 12/26/1980 Passive Smoke Exposure: Never Smokeless Tobacco: Never Alcohol Use Standard Drinks/Week Comments Yes 0 (1 standard drink = 0.6 oz pur e alcohol) Maybe one drink per month [facility] Utilities Answer Date Recorded In the [...] week 07/28/2022 How often [facility] attend [facility] services? Never 07/28/2022 Do you [...] Answer Date Recorded PHQ-2 Score 2 05/28/2023 [facility] of Occupat ional Health - Occupational Stress [...] your living situation today? I have a [facility] place to live 08/28/2023 Education Answer Date Recorded What is the highest level of school you have completed or the highest degree you have received? Professional school degree (e.g., , DDS, DVM, NACHO) 10/10/2020 Sex and Gender Information Value Date Recorded Sex Assigned at Male 05/13/2021 10:11 AM FLOWER BUNCHER OR PICKER Gender Identity Male 11/02/2017 7:22 PM CDT Sexual Orientation Straight 11/02/2017 7: 22 PM CDT documented as of this encounter Plan of Treatment Upcoming Encounters Date Type Department Care Team (Late st Contact Info) Description 02/23/2024 10:00 AM CDT Appointment Department of Laboratory Medicine in [address] [place] [address] Cammy Silva M.D. [address] [place] [address] 02/25/2024 1:30 PM CDT Education Division of Endocrinology in [place], [place] [address] [place] [address] Cammy Silva M.D. [address] [place] [phone] 02/25/2024 3:00 PM CDT Office Visit Division of Endocrinology in [place], [place] [address] [place] [address] Cammy Silva M.D. [address] [place] [phone] documented as of this encounter Visit Diagnoses Not on filedocumented in this encounter Additional Health Concerns Assessment Noted Time PHQ-9 Depression Total Score: 4 06/06/19 23 2:04 PM FLOWER BUNCHER OR PICKER documented as of this encounter Care Teams Hearing Dog Trainer Relationship Specialty Start Date End Date Clover Delaney M.D. [address] [place] [phone] PCP - General Internal Medicine 11/23/17 documented as of this encounter
--- OUTSIDE RECORDS SUMMARY | 2024-02-02 11:15 | XMS_ITS | Clinical Summary ---
Author Organization [facility] Address [address] [place] [address] Care Team Providers Care Petroleum Refinery Operator Name Role Phone Clover Macias M.D. Primary Care Provider [phone] Source Comments Patient records contain information from all sites at [facility]. For routine questions regarding patient records, call [phone] during business hours, M-F 8:00 AM - 5:00 PM Central Time. Record requests for emergency care only can be directed to [phone] at any time.[facility] Allergies Active Allergy Reactions Criticality Noted Date Comments Amlodipine Edema High 07/10/2023 Epinephrine Palpitations High 11/11/2012 Tachycardia Penicillins Itching,Rash Medium 11/11/2012 Medications Medication Sig Dispensed Refills Start Date End Date Status miscellaneous medical [facility] 0 Refill(s) 10/20/2016 Active miscellaneous medical [place] [facility] [place] Gear for CP[place] Machine See Instructions, fax to patient at [phone], 1 each 01/17/2014 Active MULTIVITAMIN ORAL Daily Multiple Vitamins See Instructions, Take 1 tablet by mouth daily. 07/23/2013 Active ONETOUCH DELICA LANCETS 33 gauge [facility] [place] 3 08/02/2018 Active loperamide (IMODIUM A-D) 2 [...] by mouth daily. 180 tablet 3 08/28/2023 Active Additional Information Patient taking differently: 20 [...] 14 (fourteen) days. 6 kit 3 08/31/2023 5 Active prednisoLONE acetate (PRED FORTE) 1 % [...] 3:01 PM BY DALIGGA, CLOVER M, M.D. Tolerating lisinopril 5mg. BP not controlled. Increase to 10mg and recheck BMP in 2-3 weeks. Hyperparathyroidism 05/26/2023 Anemia Of Chronic Renal Disease 07/29/2022 Anemia Iron Deficiency 07/29/2022 Vitrectomy Status Post 03/18/2022 Diabetes Mellitus Type 2 Wit h Proliferative Diabetic Retinopathy Without Macular Edema Bilateral 11/11/2021 Glaucoma Neovascular 11/09/2021 Overview (11/09/2021): Added automatically from request for surgery [id number] Cancer Colon Transverse Personal History 020 Overview (05/29/2023): 03/2018 No evidence of metastatic disease, stable colon, diverticulosis on CT 04/09/2020 ([facility]) Repeat colonoscopy fall [address] Sewell (oncology, [place]), follow up Dr. Sewell 6-12 months with [...] of 03/2020 and determined to be benign ([facility]). Obstructive Sleep Apnea Adult 12/07/2015 [...] (12/01/2017): Added automatically from request for surgery [id number] Hematochezia 11/09/2017 07/01/2018 Overview (11/09/2017): Added automatically from request for surgery [id number] Diarrhea 11/09/2017 09/28/2018 Overview (09/28/2018): S/P recurrent c diff. Tolerates 1500mg metformin per day. Cancer Colon Family History 01/19/2015 01/06/2020 Chronic Kidney Disease (CKD) , Stage 3b Glomerular Filtration Rate (GFR) 30 To 44 10/08/2009 08/28/2023 Encounters Date Type Department Care Team Description 02/02/2024 2:30 PM CDT External Outreach Division of Nephrology and Hypertension in [place], [place] [address] [place] [address] Sera Casiano M.D., Ph.D. Arrived 01/18/2024 3:30 PM CDT Office Visit Department of Ophthalmology in [place], [place] [address] [place] [address] Justin Bunch M.D. 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 Atrial Fibrillation Paroxysmal (HCC) (Primary Dx) Discharge Disposition: Home or Self Care 01/04/2024 2:30 PM CDT External Outreach Division of Nephrology and Hypertension in [place], [place] [address] [place] [address] Sera Casiano M.D., Ph.D. Failure Renal Acute (Acute Kidney Injury) (HCC) (Primary Dx); Chronic Kidney Disease Stage 4 Glomerular Filtration Rate 15-29 (HCC); Hypertension Essential Primary 12/22/2023 Refill Department of Family Medicine, [facility], in [place] [address] [place] [address] Clover Macias M.D. Med Refill 12/06/2023 Refill Department of [facility] in [place] [address] [place] [address] Clover Macias M.D. Med Refill 11/16/2023 Refill Department of [facility] in [address] [place] [address] Clover Macias M.D. Med Refill from Last [...] 8 yrs prior to Depression Mother Nora Hargrovetad Hypertension Mother Nora Hargrovetad Obesity Mother Nora Hargrovetad Rectal cancer Mother Nora Hargrovetad Stroke Paternal Grandfather Zurdo sanchez in March 1960 Cancer Sister Pat Delvintaemmanuelle colon Colon cancer Sister Kristin Ruizd A survivor, lance gnosed March 2005 Depression [...] e alcohol) Maybe one drink per month [facility] Utilities Answer Date Recorded In [...] 05/28/2023 [facility] of Occupat ional [facility] - Occupational Stress Questionnaire Answer Date [...] Sex Assigned at Male 05/13/2021 10:11 AM SCRAP CUTTER Gender Identity Male 11/02/2017 7:22 PM CDT Sexual Orientation Straight 11/02/2017 7: 22 PM CDT Last Filed Vital Signs Vital Sign Reading Time Taken Comments Blood Pressure 149/84 01/14/2024 10:53 AM CDT Pulse 60 01/14/2024 10:48 AM CDT Temperature 35.7 ??C (96.3 ??F) 01/14/2024 10:48 AM C DT Respiratory Rate 17 04/07/2023 2:34 PM SCRAP CUTTER Oxygen Saturation 96% 01/14/2024 10:48 AM CDT [...] Outreach Division of Nephrology and Hypertension in [place], [place] [address] [place] [address] Sera Csaiano M.D., Ph.D. [address] [place] [address] Arrived 02/23/2024 10:00 AM CDT Appointment Department of Laboratory Medicine in [address] [place] [phone] Cammy Silva M.D. [address] [place] [phone] 02/25/2024 1:30 PM CDT Education Division of Endocrinology in [place], [place] [address] [place] [phone] Cammy Silva M.D. [address] [place] [phone] 02/25/2024 3:00 PM CDT Office Visit Division of Endocrinology in [place], [place] [address] [place] [phone] Cammy Silva M.D. [address] [place] [phone] Health Maintenance Due Date Last Done Comments Visit: Medicare Annual Wellness 1945 Diabetic Office Visit with F oot Exam 02/12/2021 02/13/2020 (Performed elsewhere), 02/11/2019, 01/11/2015 Zoster Vaccines (2 of 2) 08/02/2021 06/07/2021 Hepatitis B Vaccines (3 of 3 - Risk 3-dose series) 07/24/2023 05/29/2023, 02/21/2020 Hemoglobin A1C 09/29/2023 03/30/2023, 05/28, 03/31/2022, Additional history exists COVID-19 Vaccine (2023-2 5 season) 2023 01/24/2023, 04/10/2022, 10/05/2021, Additional history exists Influenza Vaccine (#1) 2024 , 03/10/2022, 02/02/2021, Additional history exists Office Visit for Blood Press ure Check / Re-check 04/14/2024 01/14/2024, 07/23/2023, 07/23/2023 Urine Albumin 07/05/2024 07/06/2023, 12/07/2022, 09/01/2022, Additional history exists Creatinine Level (Kidney Fun ction Test) 08/19/2024 08/20/2023, 07/29/2023, 07/06/2023, Additional history exists Potassium Level 08/19/2024 08/20/2023, 04/0 06/2023, 07/06/2023, Additional history exists Sodium Level 08/19/2024 08/20/2023, 04/0 06/2023, 07/06/2023, Additional history exists Visit: Chronic Disease, age 18+ 08/27/2024 , 08/28/2023 Dilated Eye Exam 01/17/2025 01/18/2024, , 03/06/2023, Additional history exists DTaP,Tdap,and Td Vaccines (4 [...] On Erythropoietin COLONOSCOPY Routine 04/07/2023 1:48 PM SCRAP CUTTER Cancer Colon Transverse Personal History HEMOGLOBIN A1C, B Routine 03/30/2023 12:21 PM SCRAP CUTTER Hypertension And Chronic Kidney Disease Stage 5 [...] Bunch M.D. OPHTH TOMOGRAPHY Performing Organization Address [facility] Co de Phone Number OPHTHALMOLOGY IMAGING EXAM [...] RAD IMAGI NG PROCEDURES Performing Organization Address City/[facility]/ZIP Co de Phone Number IIMS NA * (ABNORMAL) Comprehensive Metabolic Panel [...] CDT Clover Macias M.D. LAB BLOOD ADD-ON [facility] [address] [place] [address], [facility] RDWG [facility] [place] [address] * (ABNORMAL) Albumin, Random, Urine (07/06/2023 9:22 AM CDT) Microalbumin 2309.6 mg/L 07/06/2023 1:30 PM CDT RDWG Creatinine 69 mg/dL 07/06/2023 12:51 PM CDT [facility] Albumin/Creatinin e Ratio 3347(H) <17 mg/g 07/06/2023 1:30 PM CDT [facility] Urine (Urine, Voided) 07/06/2023 9:22 AM CDT 07/06/2023 11:59 AM CDT Sera Hyman M.D., Ph.D. LAB UR INE ORDERABLES [facility] [address] [place] [address], [facility] [place] [address] * (ABNORMAL) Hemoglobin A1c (03/30/2023 12:21 PM SCRAP CUTTER) Hemoglobin A1c, B 6.8(H) 4.2 - 5.6 % 03/30/2023 12:36 PM SCRAP CUTTER CNFL Comment: Hemoglobin A1c values greater than or equal to 6.5 percent are diagnostic for diabetes mellitus. ??Diagnosis should be confirmed by repeat testing. ??In diabetic patients, HbA1c goals should be discussed with healthcare provider. Blood (Blood, Venous) 03/30/2023 12:21 PM SCRAP CUTTER 03/30/2023 12:23 PM SCRAP CUTTER Mónica Portillo APRN, C.N.P., M.S. LAB BLOOD ADD-ON [facility] [address] [place] [address], [place] CNFL [facility] in [address] [place] [address] * [place] Aorta AAA Screening (07/22/2017 7:39 [...] Advance Directives For more information, please contact: [phone] Documents on File Type Date Recorded Patient Claims Support Specialist Expl anation Advance Directives 12/22/2017 11:40 AM [facility] Care Directive * Full Code (Latest [...] Relationship Healthcare Agent Shahbaz banda Communication Sayra Amanda Spouse Health Care Agent Kathie Silveira Daughter First Alternate Health Care Agent Monica Boggs Daughter First Alternate Health Care Agent Care Teams Petroleum Refinery Operator Relationship Specialty Start Date End Date Clover Macias M.D. [address] [place] [phone] PCP - General Internal Medicine 11/23/17
--- OUTSIDE RECORDS SUMMARY | 2024-02-02 11:16 | XMS_ITS ---
Author Organization [facility] Address [address] [place] [address] Care Team Providers Care Senior Business Development Manager Name Role Phone Clover Delaney M.D. Primary Care Provider [phone] Kidney Tool Designer Apprentice Program Status:Identified (Enrolling) Start date:04/01/2023 Continued Care and Services Coordination
--- OUTSIDE RECORDS SUMMARY | 2024-02-02 11:16 | XMS_ITS | Encounter Summary ---
Author Organization [facility] Address [address] [place] [address] Care Team Providers Care Elevator Installer Apprentice Name Role Phone Clover Delaney M.D. Primary Care Provider [phone] Reason for Visit * Reason Comments Follow-up Atrial Fibrillation * Outpatient (Routine) - Closed Specialty Diagnoses / Procedures Referred By Yenny t Referred To Contact Cardiovascular Disease Nikko Dey M.D. [address] [place] [address] [facility] Referral ID Status Reason Start Date Expiration Date Visits Re quested Visits Authorized [id number] Closed 10/01/2023 04/01/2025 1 1 Encounter Details Date Type Department Care Team (Latest Contact Info) Description 01/14/2024 11:00 AM CDT Office Visit Department of Cardiovascular Diseases in [address] [phone] Nikko Dey M.D. [address] [place] [address] Atrial Fibrillation Paroxysmal (HCC) (Primary Dx) Discharge Disposition: Home or Self Care Social History Tobacco Use Types Packs/Day Years Used Date Smoking Tobacco: Former Cigarettes 0 1961 - 12/26/1980 Passive Smoke Exposure: Never Smokeless Tobacco: Never Tobacco Cessation:Counseling Given: Not Answered Alcohol Use Standard Drinks/Week Comments Yes 0 (1 standard drink = 0.6 oz pur e alcohol) Maybe one drink per month [facility] Utilities Answer Date Recorded In [...] often do you attend chur ch or samaritan services? Never 07/28/2022 Do you [...] Answer Date Recorded PHQ-2 Score 2 05/28/2023 [facility] of Occupat ional [facility] - Occupational Stress [...] Assigned at Male 05/13/2021 10:11 AM INTERACTIVE MARKETING STRATEGIST Gender Identity Male 11/02/2017 7:22 PM CDT Sexual Orientation Straight 11/02/2017 7: 22 PM CDT documented as of this encounter Last Filed Vital Signs Vital Sign Reading Time Taken Comments Blood Pressure 149/84 01/14/2024 10:53 AM CDT Pulse 60 01/14/2024 10:48 AM CDT Temperature 35.7 ??C (96.3 ??F) 01/14/2024 10:48 AM C DT Respiratory Rate - - Oxygen Saturation 96% 01/14/2024 10:48 AM CDT Inhaled Oxygen Concentration - - Weight 130 kg (286 lb 9.6 oz) 01/14/2024 10:48 A M CDT Height - - Body Mass Index 41.26 10/05/2023 1:25 PM CDT documented in this encounter Patient Instructions * Patient Instructions* Nikko Dey M.D. - 01/14/2024 11:00 AM CDT Let me now how you are doing through the portal in 6 months. documented in this encounter Progress Notes * Nikko Dey M.D. - 01/14/2024 11:00 AM CDT SUBJECTIVE CHIEF COMPLAINT / REASON FOR VISIT Follow-up and Atrial Fibrillation HISTORY OF PRESENT ILLNESS Philip Patel is a 78 y.o. male who presents for follow-up for evaluation of atrial fibrillation. He has a history of CKD stage 5, Efra's granulomatosis with kidney involvement on chronic steroids, hypertension, and morbid obesity. 08/16/2023: He was seen in the emergency room with dizziness after changes with his blood pressure medications. Heart rate was in the 40s and he had a new diagnosis of atrial fibrillation. He was started on Eliquis 2.5 mg twice daily. Carvedilol was decreased in follow-up. 09/09/2023: He was noted to have a hemoglobin of 6.7 and was sent to the [place] emergency room.He described dark stools. Guaiac was negative. He was given blood. He underwent an EGD while in thehospital which was reassuring. There was also concern that he had developed hematomas from falling while on Eliquis which could explain the blood loss. Aspirin was stopped while in the hospital. When I last saw him in September 2023, he was doing reasonably well. Heart rates were under good controlin the 60s to 70s. He felt that he was likely in normal sinus rhythm most of the time based upon his watch. He does not have awareness of atrial fibrillation. There was no further bleeding or dark stools. A 6 day monitor in late September to early October showed sinus rhythm with rare PVCs and PACs. No atrial fibrillation. Average heart rate was 60 beats per minute. No significant pausing. He was recently seen by Nephrology. He reported a 60 lb weight loss since starting Mounjaro. Clonidine was weaned and with this he feels like his balance and sense of well-being is markedly improved.Hemoglobin is stable. Most recent hemoglobin for Nephrology notes was 9. He is on iron and Aranesp.Shortness of breath has improved. Mounjaro was recently stopped by Nephrology given concerns over nausea. No edema. Echo in August 2023 was normal. MEDICAL HISTORY 1. CKD stage 5. 2. Atrial fibrillation. 3. Hypertension. 4. Obesity. 5. Diabetes mellitus type 2. 6. KIMBER on CPAP. 7. Efra's granulomatosis. 8. History of colon cancer. CURRENT MEDICATIONS Current Outpatient Medications on File Prior to Visit Medication Sig Dispense Refill apixaban (Eliquis) 2.5 mg tablet take one tablet by mouth twice daily 180 tablet 3 atorvastatin (LIPITOR) 40 mg tablet Take 1 [...] total) by mouth daily. 90 tablet 3 flash glucose sensor (FreeStyle Brionna 2 Sensor) kit Inject 1 each (1 kit total) under the skin every 14 (fourteen) days. 6 kit 3 FLUoxetine (PROzac) 10 mg capsule take one capsule by mouth one time daily 90 capsule 3 FreeStyle Brionna 2 Okay 1 each (1 Device total) as directed. [...] of need 99, 1 each, 0 [facility] Head Gear for CPAP Machine See Instructions, fax to patient at [phone], 1 each MULTIVITAMIN ORAL Daily Multiple Vitamins See Instructions, Take 1 tablet by mouth daily. ONETOUCH DELICA LANCETS 33 gauge [facility] 3 OneTouch Ultra Test Strips Use to [...] EYE ONCE DAILY 5 mL 2 predniSONE (Deltasone) 5 mg tablet take one tablet by mouth one time daily 90 tablet 3 sevelamer carbonate (RENVELA) 800 mg tablet Take 1 tablet (800 mg total) by mouth 3 (three) times aday with meals. 270 tablet 3 sodium bicarbonate 650 mg tablet Take 1 tablet (650 mg total) by mouth 2 (two) times a day. 180 tablet 3 torsemide (DEMADEX) 20 mg tablet Take 2 tablets (40 mg total) by mouth daily. (Patient taking differently: Take 20 mg by mouth daily.) 180 tablet 3 UltiCare Pen Needle 31 gauge x 1/4 needle Use to inject insulin daily 100 each 3 cloNIDine (Catapres) 0.1 mg tablet Take 1 tablet (0.1 mg total) by mouth 2 (two) times a day. 180 tablet 3 tirzepatide (Mounjaro) 10 mg/0.5 mL pen injector injection Inject 0.5 mL (10 mg total) under the skin every 7 (seven) days. 6 mL 3 tirzepatide (Mounjaro) 2.5 mg/0.5 mL pen [...] (seven) days. Current dose) 2 mL 0 Current Facility-Administered Medications on File Prior to Visit Medication Dose Route Frequency Provider Last Rate Last Admin sodium chloride 0.9 % injection 3 mL 3 mL intravenous Justin Ervin M.D. OBJECTIVE BP 149/84 Pulse 60 Temp (!) 35.7 ??C Wt 130 kg SpO2 96% BMI 41.26 kg/m?? PHYSICAL EXAMINATION General: Pleasant, conversant, and [...] Value Date/Time CHOL 171 11/07/2021 07:44 AM HDL 37 (L) 11/07/2021 07:44 AM HDL 38 (L) 09/11/2015 08:52 AM LDLCALC 114 11/07/2021 07:44 AM LDLCALC 105 04/10/2020 09:25 AM TRIG 112 11/07/2021 07:44 AM ASSESSMENT / PLAN 1. Previous episode of atrial fibrillation, asymptomatic, elevated CHADS2 Vasc score on Eliquis. 2. Diabetes mellitus type 2. 3. Chronic kidney disease stage 5 with plans for fistula upcoming. 4. History of Efra's granulomatosis on chronic steroids. 5. Morbid obesity. 6. Hypertension, treated by Nephrology. He presents back overall doing well. He attributes much of his improvement in his ability to walk and sense of well-being to stopping clonidine. He has had no further episodes of atrial fibrillation and a monitor over the summer was reassuring.No significant pausing or indications for a pacemaker. At this time, we would continue to follow conservatively. He is at high-risk of having further episodes of atrial fibrillation. If he does have episodes that are persisting for more than a few days, I encouraged him to contact me. We would treat atrial fibrillation aggressively if it seemed to be causing symptoms or we had difficulty controlling the rates. We would recommend he continue on oral anticoagulation long-term. Treatment of his blood pressure would be deferred to Nephrology. Given there were concerns over bradycardia this spring, I would be cautious with increasing beta-blockers or starting other AV tk blockers At this time, they will let me know if they have concerns through the portal. We will otherwise follow up with him as needed 30 minutes over half of which was spent in counseling and coordination of care in regards to atrialfibrillation. documented in this encounter Plan of Treatment Upcoming Encounters Date Type Department Care Team (Late st Contact Info) Description 02/02/2024 2:30 PM CDT External Outreach Division of Nephrology and Hypertension in [place], [place] [address] [place] [address] Sera Casiano M.D., Ph.D. [address] [place] [phone] Arrived 02/23/2024 10:00 AM CDT Appointment Department of Laboratory Medicine in [address] [place] [address] Cammy Silva M.D. [address] [place] [phone] 02/25/2024 1:30 PM CDT Education Division of Endocrinology in [place], [place] [address] [place] [address] Cammy Silva M.D. [address] [place] [phone] 02/25/2024 3:00 PM CDT Office Visit Division of Endocrinology in [place], [place] [address] [place] [address] Cammy Silva M.D. [address] [place] [phone] documented as of this encounter Visit Diagnoses Diagnosis Atrial Fibrillation Paroxysmal (HCC)- Primary documented in this encounter Additional Health Concerns Assessment Noted Time PHQ-9 Depression Total Score: 4 06/06/19 23 2:04 PM INTERACTIVE MARKETING STRATEGIST documented as of this encounter Care Teams Elevator Installer Apprentice Relationship Specialty Start Date End Date Clover Delaney M.D. [address] [place] [phone] PCP - General Internal Medicine 11/23/17 documented as of this encounter
--- OUTSIDE RECORDS SUMMARY | 2024-02-02 11:16 | XMS_ITS | Encounter Summary ---
Author Organization [facility] Address [address] [place] [address] Care Team Providers Care Electron Gun Inspector Name Role Phone [place] Delaney M.D. Primary Care Provider [phone] Reason for Visit * Appointment Request (Routine) - Closed Specialty Diagnoses / Procedures Referred By Yenny t Referred To Contact Nephrology and Hypertension Referral ID Status Reason Start Date Expiration Date Visits Re quested Visits Authorized [id number] Closed 12/04/2023 12/03/2024 1 1 Encounter Details Date Type Department Care Team (Latest Contact Info) Description 01/04/2024 2:30 PM CDT External Outreach Division of Nephrology and Hypertension in [place], [place] [address] [place] [address] Sera Casiano M.D., Ph.D. [address] [place] [address] Failure Renal Acute (Acute Kidney Injury) (HCC) [...] In the past 12 months has e T[employer], [employer]oo[employer], oil, or water [employer] threatened to shut off services in your [...] Score 2 05/28/2023 [facility] - Occupational Stress Questionnaire Answer [...] Sex Assigned at Male 05/13/2021 10:11 AM CRIB ATTENDANT Gender Identity Male 11/02/2017 7:22 PM CDT Sexual Orientation Straight 11/02/2017 7: 22 PM CDT documented as of this encounter Progress Notes * Sera Casiano M.D., Ph.D. - 01/04/2024 2:30 PM CDT PROGRESS NOTE SUBJECTIVE CHIEF COMPLAINT / REASON FOR VISIT Follow up CKD 4-5 [place] [facility] Outreach Visit Location: [facility] HISTORY OF PRESENT ILLNESS Philip Patel is [...] off. Return visit in 1 month at [facility]. Jessica Hyman M.D., Ph.D. Addendum: Laboratory workup [...] bicarbonate (this will be done at the [facility]) Discontinue clonidine by weaning it off as [...] Outreach Division of Nephrology and Hypertension in [place], [place] [address] [place] [address] Sera Casiano M.D., Ph.D. [address] [place] [phone] Arrived 02/23/2024 10:00 AM CDT Appointment Department of Laboratory Medicine in [place] [address] [place] [address] Cammy Silva M.D. [address] [place] [phone] 02/25/2024 1:30 PM CDT Education Division of Endocrinology in [place], [place] [address] [place] [address] Cammy Silva M.D. [address] [place] [address] 02/25/2024 3:00 PM CDT Office Visit Division of Endocrinology in [place], [place] [address] [place] [address] Cammy Silva M.D. [address] [place] [address] documented as of this encounter Visit Diagnoses Diagnosis Failure Renal Acute (Acute Kidney Injury) (HCC)- Primary Chronic Kidney Disease Stage 4 Glomerular Filtration Rate 15-29 (HCC) Hypertension Essential Primary documented in this encounter Additional Health Concerns Assessment Noted Time PHQ-9 Depression Total Score: 4 06/06/19 23 2:04 PM CRIB ATTENDANT documented as of this encounter Care Teams Electron Gun Inspector Relationship Specialty Start Date End Date Clover Delaney M.D. [address] [place] [address] PCP - General Internal Medicine 11/23/17 documented as of this encounter
--- OUTSIDE RECORDS SUMMARY | 2024-02-02 11:16 | XMS_ITS | Encounter Summary ---
Author Organization [facility] Address [address] [place] [address] Care Team Providers Care Datapower Consultant Name Role Phone [place] Delaney M.D. Primary Care Provider [phone] Encounter Details Date Type Department Care Team (Latest Contact Info) Description 01/18/2024 3:15 PM CDT Ancillary Procedure Department of Ophthalmology in [place], [place] [address] [place] [address] Justin Bunch M.D. 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 Never 07/28/2022 Do you [...] Recorded PHQ-2 Score 2 05/28/2023 [facility] of Occupat ional Health - Occupational Stress [...] your living situation today? [facility] live 08/28/2023 Education Answer Date Recorded What is the highest level of school you have completed or the highest degree you have received? Professional school degree (e.g., MD, DDS, DVM, NACHO) 10/10/2020 Sex and Gender Information Value Date Recorded Sex Assigned at Male 05/13/2021 10:11 AM BONBON DIPPER Gender Identity Male 11/02/2017 7:22 PM CDT Sexual Orientation Straight 11/02/2017 7: 22 PM CDT documented as of this encounter Plan of Treatment Upcoming Encounters Date Type Department Care Team (Late st Contact Info) Description 02/02/2024 2:30 PM CDT External Outreach Division of Nephrology and Hypertension in [place], [place] [address] [place] [address] Sera Casiano M.D., Ph.D. [address] [place] [phone] Arrived 02/23/2024 10:00 AM CDT Appointment Department of Laboratory Medicine in [place], [place] [address] [place] [address] Cammy Silva M.D. [address] [place] [phone] 02/25/2024 1:30 PM CDT Education Division of Endocrinology in [place], [place] [address] [place] [address] Cammy Silva M.D. [address] [place] [phone] 02/25/2024 3:00 PM CDT Office Visit Division of Endocrinology in [place], [place] [address] [place] [address] Cammy Silva M.D. [address] [place] [phone] documented as of this encounter Procedures Procedure [...] Total Score: 4 06/06/19 23 2:04 PM BONBON DIPPER documented as of this encounter Care Teams Datapower Consultant Relationship Specialty Start Date End Date Clover Delaney M.D. [address] [place] [address] PCP - General Internal Medicine 11/23/17 documented as of this encounter
--- OUTSIDE RECORDS SUMMARY | 2024-02-02 11:16 | XMS_ITS | Encounter Summary ---
Author Organization [facility] Address [address] [place] [address] Care Team Providers Care Needle Board Repairer Name Role Phone Clover Delaney M.D. Primary Care Provider [phone] Reason for Visit * Reason Comments Med Refill Encounter Details Date Type Department Care Team (Late st Contact Info) Description 12/06/2023 Refill Department of Community Internal Medicine in [address] [place] [address] Clover Delaney M.D. [address] [place] [address] Med Refill Social History Tobacco Use Types Packs/Day Years Used Date Smoking Tobacco: Former Cigarettes 0 1961 - 12/26/1980 Passive Smoke Exposure: Never Smokeless Tobacco: Never Alcohol Use Standard Drinks/Week Comments Yes 0 (1 standard drink = 0.6 oz pur e alcohol) Maybe one drink per month [facility] Utilities Answer Date Recorded In the past 12 months has e electric, gas, oil, or water [employer] threatened to shut off services in your [...] living situation today? I have a [facility] place to live 08/28/2023 Education Answer Date Recorded What is the highest level of school you have completed or the highest degree you have received? Professional school degree (e.g., MD, DDS, DVM, NACHO) 10/10/2020 Sex and Gender Information Value Date Recorded Sex Assigned at Male 05/13/2021 10:11 AM GOODYEAR WELTER Gender Identity Male 11/02/2017 7:22 PM CDT Sexual Orientation Straight 11/02/2017 7: 22 PM CDT documented as of this encounter Plan of Treatment Upcoming Encounters Date Type Department Care Team (Late st Contact Info) Description 02/02/2024 2:30 PM CDT External Outreach Division of Nephrology and Hypertension in [place], [place] [address] [place] [address] Sera Casiano M.D., Ph.D. [address] [place] [address] Arrived 02/23/2024 10:00 AM CDT Appointment Department of Laboratory Medicine in [address] [place] [address] Cammy Silva M.D. [address] [place] [address] 02/25/2024 1:30 PM CDT Education Division of Endocrinology in [place], [place] [address] [place] [address] Cammy Silva M.D. [address] [place] [phone] 02/25/2024 3:00 PM CDT Office Visit Division of Endocrinology in [place], [place] [address] [place] [address] Cammy Silva M.D. [address] [place] [phone] documented as of this encounter Visit Diagnoses Not on filedocumented in this encounter Additional Health Concerns Assessment Noted Time PHQ-9 Depression Total Score: 4 06/06/19 23 2:04 PM GOODYEAR WELTER documented as of this encounter Care Teams Needle Board Repairer Relationship Specialty Start Date End Date Clover Delaney M.D. [address] [place] [phone] PCP - General Internal Medicine 11/23/17 documented as of this encounter
--- OUTSIDE RECORDS SUMMARY | 2024-02-02 11:16 | XMS_ITS | Encounter Summary ---
Author Organization [facility] Address [address] [place] [address] Care Team Providers Care Basket Hand Braider Name Role Phone Clover Delaney M.D. Primary Care Provider [phone] Reason for Visit * Reason Comments Med Refill Encounter Details Date Type Department Care Team (Late st Contact Info) Description 11/16/2023 Refill Department of Community Internal Medicine in [address] [place] [address] Clover Delaney M.D. [address] [place] [address] Med Refill Social History Tobacco Use Types Packs/Day Years Used Date Smoking Tobacco: Former Cigarettes 0 1961 - 12/26/1980 Passive Smoke Exposure: Never Smokeless Tobacco: Never Alcohol Use Standard Drinks/Week Comments Yes 0 (1 standard drink = 0.6 oz pur e alcohol) Maybe one drink per month [facility] Utilities Answer Date Recorded In the past 12 months has e electric, gas, oil, or water [employer] threatened to shut off services in your [...] your living situation today? I have a [facility] place to live 08/28/2023 Education Answer Date Recorded What is the highest level of school you have completed or the highest degree you have received? Professional school degree (e.g., MD, DDS, DVM, NACHO) 10/10/2020 Sex and Gender Information Value Date Recorded Sex Assigned at Male 05/13/2021 10:11 AM CLINICAL PROGRAM CONSULTANT Gender Identity Male 11/02/2017 7:22 PM CDT Sexual Orientation Straight 11/02/2017 7: 22 PM CDT documented as of this encounter Plan of Treatment Upcoming Encounters Date Type Department Care Team (Late st Contact Info) Description 02/02/2024 2:30 PM CDT External Outreach Division of Nephrology and Hypertension in [place], [place] [address] [place] [address] Sera Casiano M.D., Ph.D. [address] [place] [address] Arrived 02/23/2024 10:00 AM CDT Appointment Department of Laboratory Medicine in [address] [place] [address] Cammy Silva M.D. [address] [place] [address] 02/25/2024 1:30 PM CDT Education Division of Endocrinology in [place], [place] [address] [place] [address] Cammy Silva M.D. [address] [place] [phone] 02/25/2024 3:00 PM CDT Office Visit Division of Endocrinology in [place], [place] [address] [place] [address] Cammy Silva M.D. [address] [place] [phone] documented as of this encounter Visit Diagnoses Not on filedocumented in this encounter Additional Health Concerns Assessment Noted Time PHQ-9 Depression Total Score: 4 06/06/19 23 2:04 PM CLINICAL PROGRAM CONSULTANT documented as of this encounter Care Teams Basket Hand Braider Relationship Specialty Start Date End Date Clover Delaney M.D. [address] [place] [phone] PCP - General Internal Medicine 11/23/17 documented as of this encounter
--- OUTSIDE RECORDS SUMMARY | 2024-02-02 11:16 | XMS_ITS | Encounter Summary ---
Author Organization [facility] Address [address] [place] [address] Care Team Providers Care Blender / Cook Name Role Phone Clover Delaney M.D. Primary Care Provider [phone] Reason for Visit * Outpatient (Routine) - Closed Specialty Diagnoses / Procedures Referred By Yenny hunter Referred To Contact Ophthalmology Justin Bunch M.D. [address] [place] [address] [facility] Referral ID Status Reason Start Date Expiration Date Visits Re quested Visits Authorized [id number] Closed 06/15/2023 12/14/2024 1 1 Encounter Details Date Type Department Care Team (Latest Contact Info) Description 01/18/2024 3:30 PM CDT Office Visit Department of Ophthalmology in [place], [place] [address] [place] [phone] Justin Bunch M.D. 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 - 01/18/2024 3:30 PM CDT Philip Patel was seen today for PDR/DME [...] Granulomatosis with polyangiitis Selected imaging: OCT Macula 12/2023 Right: decreased IRF Left: tabletop fibrotic bands; IRF with loss of foveal contour; choroidal folds Impression 01/18/2024: Mr Patel feels that his vision is stable. He was last seen 05/2023 and has had significant systemic health issues since then. Fortunately, he is now doing better and has lost weight and has decreased pedal edema. DME has improved, as well. Recommend continued close observation. Plan FU 4 months with OCT macula and optos FA transit RIGHT documented in this encounter Plan of Treatment Upcoming Encounters Date Type Department Care Team (Late st Contact Info) Description 02/02/2024 2:30 PM CDT External Outreach Division of Nephrology and Hypertension in [place], [place] [address] [place] [address] Sera Casiano M.D., Ph.D. [address] [place] [address] Arrived 02/23/2024 10:00 AM CDT Appointment Department of Laboratory Medicine in [address] [place] [address] Cammy Silva M.D. [address] [place] [address] 02/25/2024 1:30 PM CDT Education Division of Endocrinology in [place], [place] [address] [place] [address] Cammy Silva M.D. [address] [place] [phone] 02/25/2024 3:00 PM CDT Office Visit Division of Endocrinology in [place], [place] [address] [place] [address] Cammy Silva M.D. 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 [address] [place] [phone] PCP - General Internal Medicine 11/23/17 documented as of this encounter
--- OUTSIDE RECORDS SUMMARY | 2024-02-02 11:16 | XMS_ITS | Encounter Summary ---
Author Organization [facility] Address [address] [place] [address] Care Team Providers Care Supervisor Accounting Clerks Name Role Phone Clover Delaney M.D. Primary Care Provider [phone] Reason for Visit * Reason Comments Med Refill Encounter Details Date Type Department Care Team (Late st Contact Info) Description 12/22/2023 Refill Department of Family Medicine, [facility], in [place], [place] [address] [place] [address] [place] [address] Clover Delaney M.D. [address] [place] [address] Med Refill Social History Tobacco Use Types Packs/Day Years Used Date Smoking Tobacco: Former Cigarettes 0 1961 - 12/26/1980 Passive Smoke Exposure: Never Smokeless Tobacco: Never Alcohol Use Standard Drinks/Week Comments Yes 0 (1 standard drink = 0.6 oz pur e alcohol) Maybe one drink per month [facility] Utilities Answer Date Recorded In the past 12 months has e electric, gas, oil, or water [employer] threatened to shut off services in your [...] often do you attend chur ch or hoahaoism services? Never 07/28/2022 Do you [...] Answer Date Recorded PHQ-2 Score 2 05/28/2023 [facility] of Occupat ional Health - [...] your living situation today? I have a [facility] place to live 08/28/2023 Education Answer Date Recorded What is the highest level of school you have completed or the highest degree you have received? Professional school degree (e.g., MD, DDS, DVM, NACHO) 10/10/2020 Sex and Gender Information Value Date Recorded Sex Assigned at Male 05/13/2021 10:11 AM CONTRACTS OFFICER Gender Identity Male 11/02/2017 7:22 PM CDT Sexual Orientation Straight 11/02/2017 7: 22 PM CDT documented as of this encounter Plan of Treatment Upcoming Encounters Date Type Department Care Team (Late st Contact Info) Description 02/02/2024 2:30 PM CDT External Outreach Division of Nephrology and Hypertension in [place], [place] [address] [place] [address] Sera Casiano M.D., Ph.D. [address] [place] [phone] Arrived 02/23/2024 10:00 AM CDT Appointment Department of Laboratory Medicine in [address] [place] [address] Cammy Silva M.D. [address] [place] [phone] 02/25/2024 1:30 PM CDT Education Division of Endocrinology in [place], [place] [address] [place] [address] Cammy Silva M.D. [address] [place] [phone] 02/25/2024 3:00 PM CDT Office Visit Division of Endocrinology in [place], [place] [address] [place] [address] Cammy Silva M.D. [address] [place] [phone] documented as of this encounter Visit Diagnoses Not on filedocumented in this encounter Additional Health Concerns Assessment Noted Time PHQ-9 Depression Total Score: 4 06/06/19 23 2:04 PM CONTRACTS OFFICER documented as of this encounter Care Teams Supervisor Accounting Clerks Relationship Specialty Start Date End Date Clover Delaney M.[facility]. [facility] [place] [phone] PCP - General Internal Medicine 11/23/17 documented as of this encounter
== END 2024-01-29 13:16 | disposition home or self-care (01) ==
LOC: NFLDREF 02-02 09:58
PROVIDERS: PCP Pediatrics; Referring Provider Pediatrics; Visit Provider Internal Medicine Nephrology
DX: N18.5 Chronic kidney disease, stage 5 (principal); N18.9 Chronic kidney disease, unspecified; D64.9 Anemia, unspecified; E11.9 Type 2 diabetes mellitus without complications
CPT/HCPCS: 80069; 82043; 82570; 87086

== ENCOUNTER 2024-04-08 13:30 | Outpatient (RCR) | payer MEDICARE, SELFPAY ==
[2023-10-22 09:15] VITALS: BP 148/76; PULSE 60; RESP 16; TEMP 35.8; O2SAT 96
[2023-10-22] MEDS: DARBEPOETIN ALFA (NON DIALYSIS) 100 MCG SUBCUT (09:32)
[2023-11-05 09:13] LABS: Basophils Absolute Auto 0.03 K/uL (0.00-0.30); Basophils Percent Auto 0.4 % (0.0-3.0); Eosinophils Absolute Auto 0.16 K/uL (0.00-0.50); Eosinophils Percent Auto 1.9 % (0.0-7.0); Hematocrit 29.5 % (37.0-53.0); Hemoglobin* 9.6 gm/dL (13.5-17.5); Immature Granulocytes Abs Auto 0.06 K/uL (0.00-0.30); Immature Granulocytes Pct Auto 0.7 %; Lymphocytes Percent Auto 10.8 % (20-44); Mean Corpuscular HGB Conc 33 gm/dL (32-36); Mean Corpuscular Hemoglobin 30 pg (26-34); Mean Corpuscular Volume 93 fL (80-100); Monocytes Percent Auto 7.6 % (0.0-11.0); Neutrophils Percent Auto 78.6 % (42.0-72.0); Platelet Count* 161 K/uL (140-440); RDW Coefficient of Variation % 15.3 % (11.5-15.5); Red Blood Count 3.16 m/uL (4.30-5.90); White Blood Count* 8.39 K/uL (4.50-11.00)
[2023-11-05 09:15] LABS: Slide Review Reflex No
[2023-11-05 09:30] VITALS: BP 147/82; PULSE 72; RESP 16; TEMP 36.2; O2SAT 96
[2023-11-05] MEDS: DARBEPOETIN ALFA (NON DIALYSIS) 100 MCG SUBCUT (10:06)
[2023-11-24 08:39] VITALS: BP 181/80; PULSE 68; RESP 16; TEMP 36.4; O2SAT 95
[2023-11-24] MEDS: DARBEPOETIN ALFA (NON DIALYSIS) 100 MCG SUBCUT (09:18)
[2023-11-24 09:25] VITALS: BP 171/81
[2023-11-24 09:35] VITALS: BP 167/74; PULSE 68
--- NOTE | 2023-11-24 09:37 | PC.NURSE ---
Pt here for Aranesp. BP initally 181/80, recheck BP's 171/81, 167/74. Discussed with Radha Robbins APRN pattern of pt's blood pressures. Pt also declined having renal function panel drawn this am. Pt aware this was not drawn on 11/05/23 with the CBC. Plan is for blood draw and aranesp in 2 weeks.
[2023-12-09 14:33] LABS: Hematocrit 30.7 % (37.0-53.0); Hemoglobin* 9.8 gm/dL (13.5-17.5); Mean Corpuscular HGB Conc 32 gm/dL (32-36); Mean Corpuscular Hemoglobin 30 pg (26-34); Mean Corpuscular Volume 94 fL (80-100); Platelet Count* 159 K/uL (140-440); Red Blood Count 3.27 m/uL (4.30-5.90); White Blood Count* 9.88 K/uL (4.50-11.00)
[2023-12-09 14:36] LABS: Slide Review Reflex No
[2023-12-09 14:37] VITALS: BP 116/71; PULSE 73; RESP 16; TEMP 35.9; O2SAT 93
[2023-12-09 14:46] LABS: Chloride* 103 mmol/L (96-114)
[2023-12-09 14:47] LABS: Albumin* 3.7 g/dL (3.3-5.0); Potassium* 4.2 mmol/L (3.6-5.1); Sodium* 135 mmol/L (135-149)
[2023-12-09 14:49] LABS: Anion Gap 10 mEq/L (7-15); Carbon Dioxide* 22 mmol/L (20-32); Creatinine* 4.1 mg/dL (0.5-1.5); Estimated Glomerular Filt Rate 14 ml/min
[2023-12-09 14:50] VITALS: BP 128/76; PULSE 61; O2SAT 96
[2023-12-09 14:50] LABS: Blood Urea Nitrogen* 71 mg/dL (7-30); Calcium* 8.6 mg/dL (8.4-10.6); Glucose* 226 mg/dL (60-115); Phosphorus* 4.1 mg/dL (2.5-4.5)
[2023-12-09] MEDS: DARBEPOETIN ALFA (NON DIALYSIS) 100 MCG SUBCUT (15:00)
--- NOTE | 2023-12-09 15:19 | ONC.NURNOTE ---
Pt here for Jesenia, feels tired today. Fell this am. Pt states his primary care physician is aware of the falls, they believe it may be from the Clonidine he is taking. VSS. Hgb 9.8. Creatinine 4.1 today, automobile and property underwriter emailed Dr. Sera North with the Creatinine level and questioned if she would like lab results faxed to her.
[2023-12-31 14:48] VITALS: BP 152/84; PULSE 68; RESP 16; TEMP 36; O2SAT 96
[2023-12-31] MEDS: DARBEPOETIN ALFA (NON DIALYSIS) 100 MCG SUBCUT (15:10)
[2024-01-05 11:40] VITALS: BP 147/77; PULSE 70; RESP 16; TEMP 35.8; O2SAT 97
[2024-01-15 13:42] VITALS: BP 156/76; PULSE 74; RESP 20; TEMP 36.2; O2SAT 97
[2024-01-15] MEDS: DARBEPOETIN ALFA (NON DIALYSIS) 100 MCG SUBCUT (13:51)
[2024-01-29] MEDS: DARBEPOETIN ALFA (NON DIALYSIS) 100 MCG SUBCUT (13:48)
[2024-01-29 13:56] VITALS: BP 178/63; PULSE 68; RESP 16; TEMP 36.3; O2SAT 96
--- NOTE | 2024-02-12 15:04 | ONC.NURNOTE ---
Patient in clinic today for every 2 week Aranesp injection. On arrival patient's BP 191/73. Patient sat for a few minutes and BP rechecked. BP 196/100. Assessment done and patient feeling good. Denies any chest tightness, vision issues, or headaches. Patient sat again for a little while. BP 186/66. Discussed with patient that order parameters are to hold dose if SBP is over 180. Patient opted to sit for another 15 minutes. Recheck BP 213/93. It was decided to not do patient's injection today due to BP. Patient declined to reschedule as he will be out of town for the next 2 weeks. He is already scheduled for his next lab appt with injection in 2 weeks. Patient monitors BP at home, advised him that if it stays elevated he needs to contact his PCP also advised him that if he develops any chest tightness, vision changes or a headache he needs to be seen in ER. Patient verbalized understanding and agreeable to the plan.
[2024-02-26 13:56] LABS: Basophils Absolute Auto 0.04 K/uL (0.00-0.30); Basophils Percent Auto 0.5 % (0.0-3.0); Eosinophils Absolute Auto 0.08 K/uL (0.00-0.50); Immature Granulocytes Abs Auto 0.02 K/uL (0.00-0.30); Immature Granulocytes Pct Auto 0.3 %; Lymphocytes Percent Auto 4.9 % (20-44); Mean Corpuscular HGB Conc 31 gm/dL (32-36); Mean Corpuscular Hemoglobin 30 pg (26-34); Mean Corpuscular Volume 98 fL (80-100); Monocytes Percent Auto 4.6 % (0.0-11.0); Neutrophils Percent Auto 88.7 % (42.0-72.0); Platelet Count* 136 K/uL (140-440); RDW Coefficient of Variation % 14.5 % (11.5-15.5); Red Blood Count 2.54 m/uL (4.30-5.90); White Blood Count* 7.88 K/uL (4.50-11.00)
[2024-02-26 14:08] LABS: Hemoglobin* 7.7 gm/dL (13.5-17.5); Slide Review Reflex No
[2024-02-26] MEDS: DARBEPOETIN ALFA (NON DIALYSIS) 100 MCG SUBCUT (14:34)
[2024-02-26 14:57] VITALS: BP 167/76; PULSE 58; RESP 18; TEMP 36.6; O2SAT 95
--- NOTE | 2024-02-29 15:19 | ONC.NURNOTE ---
Addendum entered and electronically signed by Radha Garcia APRN 03/01/24 11:35: Call placed to [facility] for Dr. Joseph, Nephrology with hgb result and trend. See nursing assessment below. I note pt is also on anticoagulation. 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 Original Note: late entry from 02/26/24 Discussed Hg 7.7 today denies any SOB, palpitations, excessive fatigue instructed patient to phone MD if symptoms develop aranesp given today next appts scheduled
[2024-03-11 14:00] VITALS: BP 174/68; PULSE 57; RESP 16; TEMP 35.9; O2SAT 96
[2024-03-11] MEDS: DARBEPOETIN ALFA (NON DIALYSIS) 100 MCG SUBCUT (14:34)
[2024-03-25 13:46] LABS: Basophils Absolute Auto 0.02 K/uL (0.00-0.30); Basophils Percent Auto 0.3 % (0.0-3.0); Eosinophils Absolute Auto 0.08 K/uL (0.00-0.50); Eosinophils Percent Auto 1.1 % (0.0-7.0); Hematocrit 25.6 % (37.0-53.0); Immature Granulocytes Abs Auto 0.02 K/uL (0.00-0.30); Immature Granulocytes Pct Auto 0.3 %; Lymphocytes Percent Auto 5.9 % (20-44); Mean Corpuscular HGB Conc 31 gm/dL (32-36); Mean Corpuscular Hemoglobin 30 pg (26-34); Mean Corpuscular Volume 99 fL (80-100); Monocytes Percent Auto 5.3 % (0.0-11.0); Neutrophils Percent Auto 87.1 % (42.0-72.0); Platelet Count* 134 K/uL (140-440); RDW Coefficient of Variation % 14.7 % (11.5-15.5); White Blood Count* 7.59 K/uL (4.50-11.00)
[2024-03-25 13:47] LABS: Hemoglobin* 7.8 gm/dL (13.5-17.5); Slide Review Reflex No
[2024-03-25] MEDS: DARBEPOETIN ALFA (NON DIALYSIS) 100 MCG SUBCUT (13:55)
[2024-04-08] MEDS: DARBEPOETIN ALFA (NON DIALYSIS) 100 MCG SUBCUT (13:59)
[2024-04-08 14:02] VITALS: BP 179/76; PULSE 55; RESP 16; TEMP 36; O2SAT 96
--- NOTE | 2024-04-13 11:42 | URNOTE ---
Request received for authorization for Jesenia ([id number]) and Gavino ([id number]). Prior authorization is not required per [facility]'s Medical injectable drug list.
--- NOTE | 2024-05-04 09:55 | ONC.NURNOTE ---
Patient called in to state that he has the flu. Took a home covid test and this was negative but feels crumby and does not want to expose anyone to his illness on Thursday. Rescheduled for Tuesday 05/09. Patient will call if he is still ill on thursday.
== END 2024-04-19 23:59 | disposition home or self-care (01) ==
LOC: CCIC 13:30
PROVIDERS: Clinical Nurse Specialist; Internal Medicine Nephrology; PCP Pediatrics; Visit Provider Internal Medicine Hematology & Oncology
DX: N18.5 Chronic kidney disease, stage 5 (principal); D63.1 Anemia in chronic kidney disease
CPT/HCPCS: 36415; 80069; 83540; 83550; 85025; 85027; 96365; 96366; 96372; 99211; J0881

== ENCOUNTER 2024-04-11 10:04 | Outpatient (CLI) | payer MEDICARE, SELFPAY | END 2024-04-11 10:05 | disposition home or self-care (01) | LOC: NFLDREF 19:40 | PROVIDERS: PCP Pediatrics; Referring Provider Pediatrics; Visit Provider Internal Medicine Nephrology | DX: N18.5 Chronic kidney disease, stage 5 (principal) | CPT/HCPCS: 80069; 82043; 82570; 82728; 83540; 83550 ==

== ENCOUNTER 2024-05-26 08:56 | Outpatient (CLI) | payer MEDICARE, SELFPAY | END 2024-05-26 08:57 | disposition home or self-care (01) | LOC: NFLDREF 05-30 03:37 | PROVIDERS: PCP Pediatrics; Referring Provider Pediatrics; Visit Provider Internal Medicine Nephrology | DX: N18.5 Chronic kidney disease, stage 5 (principal); I12.0 Hypertensive chronic kidney disease with stage 5 chronic kidney disease or end stage renal disease | CPT/HCPCS: 80069; 82043; 82570; 82728; 83540; 83550 ==

== ENCOUNTER 2024-07-04 10:55 | Outpatient (CLI) | payer MEDICARE, SELFPAY | END 2024-07-04 10:56 | disposition home or self-care (01) | LOC: NFLDREF 07-06 05:34 | PROVIDERS: PCP Pediatrics; Referring Provider Pediatrics; Visit Provider Internal Medicine Nephrology | DX: N18.5 Chronic kidney disease, stage 5 (principal) | CPT/HCPCS: 80069 ==

== ENCOUNTER 2024-08-02 08:33 | Outpatient (CLI) | payer MEDICARE, SELFPAY | END 2024-08-02 08:34 | disposition home or self-care (01) | LOC: NFLDREF 08-05 23:27 | PROVIDERS: PCP Pediatrics; Referring Provider Pediatrics; Visit Provider Internal Medicine Nephrology | DX: N18.5 Chronic kidney disease, stage 5 (principal); D64.9 Anemia, unspecified; N18.9 Chronic kidney disease, unspecified | CPT/HCPCS: 80069; 82728; 83540; 83550 ==

== ENCOUNTER 2024-10-14 13:00 | Outpatient (RCR) | payer MEDICARE, SELFPAY ==
[2024-04-25 13:45] VITALS: BP 209/93; PULSE 66; RESP 18; TEMP 36.6; O2SAT 97
[2024-04-25 14:00] VITALS: BP 208/73
[2024-04-25 14:30] VITALS: BP 211/78
--- NOTE | 2024-04-25 15:01 | ONC.NURNOTE ---
Jesenia/Gavino held for Hypertension Pt presents to [facility] with bp's ranging 209/93, then after 15 min sitting 208/73; additional 20 min sitting 211/80; OVSS. Pt notes he is on day 06/27 Prednisone 20mg oral for ear neuropathy and has been sleeping ~ 5 hrs/night the last few nights. He notes Dr. Can Hyman is managing his hypertension and recently added back in Clonidine 0.1mg BID; see her note for more detailed hx/plan. Reviewed with Radha Robbins APRN as nephrology not in house today. Hold Jesenia and Gavino; notify Dr. Can Hyman. Pt due for 2 mo f/u with Dr. Can Hyman in May; scheduled 1st available 05/31/24 @ 11am. Rescheduled Jesenia/Gavino for 04/29, per pt's request to check BP sooner than 1 wk as he hopes it will improve being off his oral steroids. Task out to Dr. North; clinic nurses to triage/contact [facility] administration advisor as needed. Pt is agreeable to this plan.
[2024-04-29 10:20] VITALS: BP 188/80; PULSE 51; RESP 16; TEMP 36.1; O2SAT 98
[2024-04-29 10:50] VITALS: BP 185/76
[2024-04-29] MEDS: 0.9 % SODIUM CHLORIDE 500 ML IV (11:50)
[2024-04-29] MEDS: ferumoxytoL 510 MG in 0.9 % SODIUM CHLORIDE 250 ml 250 ML 560 MG IVPB (11:50)
[2024-04-29] MEDS: SODIUM CHLORIDE 0.9 % (FLUSH) 10 ML SYRINGE IVF (11:50)
[2024-04-29 12:31] VITALS: BP 162/75; PULSE 67; RESP 18; O2SAT 95
[2024-04-29 13:07] VITALS: BP 152/80; PULSE 51; RESP 18; O2SAT 97
[2024-05-09] MEDS: SODIUM CHLORIDE 0.9 % (FLUSH) 10 ML SYRINGE IVF (13:39)
[2024-05-09] MEDS: 0.9 % SODIUM CHLORIDE 500 ML IV (13:39)
[2024-05-09] MEDS: ferumoxytoL 510 MG in 0.9 % SODIUM CHLORIDE 250 ml 250 ML 534 MG IVPB (13:39)
[2024-05-09 13:55] VITALS: BP 170/76; PULSE 59; RESP 16; TEMP 35.9; O2SAT 96
[2024-05-09 14:25] VITALS: BP 123/71; PULSE 61; RESP 16; TEMP 36.5; O2SAT 96
[2024-05-13 13:27] LABS: Basophils Absolute Auto 0.02 K/uL (0.00-0.30); Basophils Percent Auto 0.2 % (0.0-3.0); Eosinophils Absolute Auto 0.32 K/uL (0.00-0.50); Eosinophils Percent Auto 3.5 % (0.0-7.0); Hematocrit 26.7 % (37.0-53.0); Hemoglobin* 8.4 gm/dL (13.5-17.5); Immature Granulocytes Abs Auto 0.05 K/uL (0.00-0.30); Immature Granulocytes Pct Auto 0.6 %; Lymphocytes Percent Auto 5.7 % (20-44); Mean Corpuscular HGB Conc 32 gm/dL (32-36); Mean Corpuscular Hemoglobin 30 pg (26-34); Mean Corpuscular Volume 94 fL (80-100); Monocytes Percent Auto 8.2 % (0.0-11.0); Neutrophils Percent Auto 81.8 % (42.0-72.0); Platelet Count* 154 K/uL (140-440); RDW Coefficient of Variation % 16.2 % (11.5-15.5); Red Blood Count 2.84 m/uL (4.30-5.90); White Blood Count* 9.02 K/uL (4.50-11.00)
[2024-05-13 13:37] LABS: Slide Review Reflex No
[2024-05-13 15:37] VITALS: BP 178/78; PULSE 81; RESP 18; O2SAT 96
[2024-05-27 13:13] VITALS: BP 145/74; PULSE 73; RESP 16; TEMP 36.3; O2SAT 94
[2024-06-10 13:29] LABS: Basophils Absolute Auto 0.02 K/uL (0.00-0.30); Basophils Percent Auto 0.2 % (0.0-3.0); Eosinophils Percent Auto 2.4 % (0.0-7.0); Hematocrit 31.9 % (37.0-53.0); Hemoglobin* 10.1 gm/dL (13.5-17.5); Immature Granulocytes Abs Auto 0.04 K/uL (0.00-0.30); Immature Granulocytes Pct Auto 0.5 %; Lymphocytes Percent Auto 7.7 % (20-44); Mean Corpuscular HGB Conc 32 gm/dL (32-36); Mean Corpuscular Hemoglobin 31 pg (26-34); Mean Corpuscular Volume 97 fL (80-100); Monocytes Percent Auto 9.4 % (0.0-11.0); Neutrophils Percent Auto 79.8 % (42.0-72.0); Platelet Count* 139 K/uL (140-440); RDW Coefficient of Variation % 16.2 % (11.5-15.5); Red Blood Count 3.29 m/uL (4.30-5.90); White Blood Count* 8.17 K/uL (4.50-11.00)
[2024-06-10 13:33] LABS: Slide Review Reflex No
[2024-06-10 13:39] LABS: Albumin* 3.9 g/dL (3.3-5.0); Chloride* 98 mmol/L (96-114); Potassium* 3.9 mmol/L (3.6-5.1); Sodium* 136 mmol/L (135-149)
[2024-06-10 13:42] LABS: Anion Gap 12 mEq/L (7-15); Blood Urea Nitrogen* 94 mg/dL (7-30); Calcium* 8.5 mg/dL (8.4-10.6); Carbon Dioxide* 26 mmol/L (20-32); Creatinine* 5.6 mg/dL (0.5-1.5); Estimated Glomerular Filt Rate 10 ml/min; Glucose* 160 mg/dL (60-115)
[2024-06-10 13:51] VITALS: BP 157/83; PULSE 54; RESP 16; TEMP 35.9; O2SAT 97
[2024-06-24 13:06] VITALS: BP 165/64; PULSE 72; RESP 16; TEMP 36.6; O2SAT 97
[2024-07-08 13:12] LABS: Basophils Absolute Auto 0.02 K/uL (0.00-0.30); Basophils Percent Auto 0.3 % (0.0-3.0); Eosinophils Absolute Auto 0.12 K/uL (0.00-0.50); Eosinophils Percent Auto 1.8 % (0.0-7.0); Hematocrit 30.9 % (37.0-53.0); Hemoglobin* 9.6 gm/dL (13.5-17.5); Immature Granulocytes Abs Auto 0.03 K/uL (0.00-0.30); Immature Granulocytes Pct Auto 0.5 %; Lymphocytes Percent Auto 6.1 % (20-44); Mean Corpuscular HGB Conc 31 gm/dL (32-36); Mean Corpuscular Hemoglobin 31 pg (26-34); Mean Corpuscular Volume 99 fL (80-100); Monocytes Percent Auto 7.7 % (0.0-11.0); Neutrophils Percent Auto 83.6 % (42.0-72.0); Platelet Count* 145 K/uL (140-440); RDW Coefficient of Variation % 15.5 % (11.5-15.5); Red Blood Count 3.12 m/uL (4.30-5.90); White Blood Count* 6.51 K/uL (4.50-11.00)
[2024-07-08 13:23] LABS: Slide Review Reflex No
[2024-07-08 13:28] LABS: Albumin* 3.8 g/dL (3.3-5.0); Chloride* 100 mmol/L (96-114); Potassium* 4.7 mmol/L (3.6-5.1); Sodium* 137 mmol/L (135-149)
[2024-07-08 13:31] LABS: Anion Gap 15 mEq/L (7-15); Blood Urea Nitrogen* 95 mg/dL (7-30); Calcium* 8.4 mg/dL (8.4-10.6); Carbon Dioxide* 22 mmol/L (20-32); Estimated Glomerular Filt Rate 11 ml/min; Glucose* 170 mg/dL (60-115); Phosphorus* 5.2 mg/dL (2.5-4.5)
[2024-07-08 13:55] LABS: Iron* 72 ug/dL (49-181)
[2024-07-08] MEDS: DARBEPOETIN ALFA (NON DIALYSIS) 100 MCG SUBCUT (14:04)
[2024-07-08 14:05] LABS: Percent Iron Saturation 31 % (20-50); Total Iron Binding Capacity 229 ug/dL (261-462)
[2024-07-25 13:04] VITALS: BP 146/72; PULSE 66; RESP 18; TEMP 36.2; O2SAT 95
[2024-07-25 13:26] LABS: Basophils Absolute Auto 0.02 K/uL (0.00-0.30); Basophils Percent Auto 0.3 % (0.0-3.0); Eosinophils Absolute Auto 0.14 K/uL (0.00-0.50); Eosinophils Percent Auto 2.2 % (0.0-7.0); Hematocrit 28.5 % (37.0-53.0); Hemoglobin* 8.9 gm/dL (13.5-17.5); Immature Granulocytes Abs Auto 0.02 K/uL (0.00-0.30); Immature Granulocytes Pct Auto 0.3 %; Lymphocytes Percent Auto 7.4 % (20-44); Mean Corpuscular HGB Conc 31 gm/dL (32-36); Mean Corpuscular Hemoglobin 31 pg (26-34); Mean Corpuscular Volume 99 fL (80-100); Monocytes Percent Auto 7.9 % (0.0-11.0); Neutrophils Percent Auto 81.9 % (42.0-72.0); Platelet Count* 147 K/uL (140-440); RDW Coefficient of Variation % 14.9 % (11.5-15.5); Red Blood Count 2.88 m/uL (4.30-5.90); White Blood Count* 6.45 K/uL (4.50-11.00)
[2024-07-25 13:34] LABS: Slide Review Reflex No
[2024-07-25] MEDS: DARBEPOETIN ALFA (NON DIALYSIS) 100 MCG SUBCUT (13:46)
[2024-08-05 13:10] LABS: Eosinophils Percent Auto 1.9 % (0.0-7.0); Hematocrit 29.1 % (37.0-53.0); Hemoglobin* 9.2 gm/dL (13.5-17.5); Lymphocytes Percent Auto 5.8 % (20-44); Mean Corpuscular HGB Conc 32 gm/dL (32-36); Mean Corpuscular Hemoglobin 31 pg (26-34); Mean Corpuscular Volume 98 fL (80-100); Monocytes Percent Auto 7.8 % (0.0-11.0); Neutrophils Percent Auto 84.1 % (42.0-72.0); Platelet Count* 154 K/uL (140-440); RDW Coefficient of Variation % 14.9 % (11.5-15.5); Red Blood Count 2.97 m/uL (4.30-5.90); White Blood Count* 9.31 K/uL (4.50-11.00)
[2024-08-05 13:11] LABS: Basophils Absolute Auto 0.02 K/uL (0.00-0.30); Basophils Percent Auto 0.2 % (0.0-3.0); Eosinophils Absolute Auto 0.18 K/uL (0.00-0.50); Immature Granulocytes Abs Auto 0.02 K/uL (0.00-0.30); Immature Granulocytes Pct Auto 0.2 %
[2024-08-05 13:32] LABS: Slide Review Reflex No
[2024-08-05 13:43] VITALS: BP 177/71; PULSE 67; RESP 18; TEMP 35.8; O2SAT 96
[2024-08-05] MEDS: DARBEPOETIN ALFA (NON DIALYSIS) 100 MCG SUBCUT (13:50)
--- NOTE | 2024-08-17 14:50 | URNOTE ---
Request received for authorization forKathleen ([id number]). Prior authorization is not required per [facility] Injectable Drug Authorization List.
[2024-08-19 13:19] VITALS: BP 134/71; PULSE 94; RESP 22; TEMP 35.7; O2SAT 94
[2024-08-19 13:33] LABS: Basophils Absolute Auto 0.03 K/uL (0.00-0.30); Basophils Percent Auto 0.5 % (0.0-3.0); Eosinophils Absolute Auto 0.14 K/uL (0.00-0.50); Eosinophils Percent Auto 2.3 % (0.0-7.0); Hematocrit 26.5 % (37.0-53.0); Hemoglobin* 8.5 gm/dL (13.5-17.5); Immature Granulocytes Abs Auto 0.01 K/uL (0.00-0.30); Immature Granulocytes Pct Auto 0.2 %; Lymphocytes Percent Auto 12.2 % (20-44); Mean Corpuscular HGB Conc 32 gm/dL (32-36); Mean Corpuscular Hemoglobin 31 pg (26-34); Mean Corpuscular Volume 97 fL (80-100); Monocytes Percent Auto 10.6 % (0.0-11.0); Neutrophils Percent Auto 74.2 % (42.0-72.0); Platelet Count* 132 K/uL (140-440); RDW Coefficient of Variation % 14.8 % (11.5-15.5); Red Blood Count 2.72 m/uL (4.30-5.90); White Blood Count* 5.96 K/uL (4.50-11.00)
[2024-08-19 13:34] LABS: Slide Review Reflex No
[2024-08-19] MEDS: SODIUM CHLORIDE 0.9 % (FLUSH) 10 ML SYRINGE IVF (14:17)
[2024-08-19] MEDS: 0.9 % SODIUM CHLORIDE 500 ML IV (14:18)
[2024-08-19] MEDS: ferumoxytoL 510 MG in 0.9 % SODIUM CHLORIDE 250 ml 250 ML 534 MG IVPB (14:21)
[2024-08-19] MEDS: DARBEPOETIN ALFA (NON DIALYSIS) 100 MCG SUBCUT (14:22)
[2024-09-02 13:04] VITALS: BP 171/72; PULSE 62; RESP 20; TEMP 36.2; O2SAT 97
[2024-09-02 13:26] LABS: Basophils Absolute Auto 0.02 K/uL (0.00-0.30); Basophils Percent Auto 0.3 % (0.0-3.0); Eosinophils Percent Auto 1.4 % (0.0-7.0); Hematocrit 27.4 % (37.0-53.0); Hemoglobin* 8.6 gm/dL (13.5-17.5); Immature Granulocytes Abs Auto 0.02 K/uL (0.00-0.30); Immature Granulocytes Pct Auto 0.3 %; Lymphocytes Percent Auto 5.9 % (20-44); Mean Corpuscular HGB Conc 31 gm/dL (32-36); Mean Corpuscular Hemoglobin 31 pg (26-34); Mean Corpuscular Volume 98 fL (80-100); Neutrophils Percent Auto 86.1 % (42.0-72.0); Platelet Count* 141 K/uL (140-440); RDW Coefficient of Variation % 14.8 % (11.5-15.5); Red Blood Count 2.79 m/uL (4.30-5.90); White Blood Count* 7.11 K/uL (4.50-11.00)
[2024-09-02 13:29] LABS: Slide Review Reflex No
[2024-09-02 13:39] LABS: Chloride* 101 mmol/L (96-114)
[2024-09-02 13:40] LABS: Albumin* 3.8 g/dL (3.3-5.0); Potassium* 4.5 mmol/L (3.6-5.1); Sodium* 137 mmol/L (135-149)
[2024-09-02 13:43] LABS: Anion Gap 13 mEq/L (7-15); Blood Urea Nitrogen* 92 mg/dL (7-30); Calcium* 8.5 mg/dL (8.4-10.6); Carbon Dioxide* 23 mmol/L (20-32); Creatinine* 5.2 mg/dL (0.5-1.5); Estimated Glomerular Filt Rate 11 ml/min; Glucose* 254 mg/dL (60-115)
[2024-09-02] MEDS: DARBEPOETIN ALFA (NON DIALYSIS) 100 MCG SUBCUT (14:11)
[2024-09-02 14:12] LABS: Iron* 87 ug/dL (49-181)
[2024-09-02 14:21] LABS: Percent Iron Saturation 40 % (20-50); Total Iron Binding Capacity 218 ug/dL (261-462)
[2024-09-02 14:31] LABS: PTH Intact* 215.2 pg/mL (14.2-75.2); Vitamin D 25 Hydroxy* 36 ng/mL (30-80)
[2024-09-16 13:16] LABS: Basophils Absolute Auto 0.04 K/uL (0.00-0.30); Basophils Percent Auto 0.5 % (0.0-3.0); Eosinophils Absolute Auto 0.22 K/uL (0.00-0.50); Eosinophils Percent Auto 2.9 % (0.0-7.0); Hematocrit 29.3 % (37.0-53.0); Hemoglobin* 9.3 gm/dL (13.5-17.5); Immature Granulocytes Abs Auto 0.02 K/uL (0.00-0.30); Immature Granulocytes Pct Auto 0.3 %; Lymphocytes Percent Auto 8.5 % (20-44); Mean Corpuscular HGB Conc 32 gm/dL (32-36); Mean Corpuscular Hemoglobin 31 pg (26-34); Mean Corpuscular Volume 97 fL (80-100); Monocytes Percent Auto 9.9 % (0.0-11.0); Neutrophils Percent Auto 77.9 % (42.0-72.0); Platelet Count* 130 K/uL (140-440); Red Blood Count 3.01 m/uL (4.30-5.90)
[2024-09-16 13:56] LABS: Slide Review Reflex No
[2024-09-16 14:17] VITALS: BP 164/65; PULSE 50; RESP 16; TEMP 36.3; O2SAT 97
[2024-09-30 13:18] VITALS: BP 128/65; PULSE 64; TEMP 36.9; O2SAT 94
[2024-09-30 13:21] LABS: Basophils Absolute Auto 0.03 K/uL (0.00-0.30); Basophils Percent Auto 0.4 % (0.0-3.0); Eosinophils Absolute Auto 0.19 K/uL (0.00-0.50); Eosinophils Percent Auto 2.6 % (0.0-7.0); Hematocrit 30.5 % (37.0-53.0); Hemoglobin* 9.8 gm/dL (13.5-17.5); Immature Granulocytes Abs Auto 0.03 K/uL (0.00-0.30); Immature Granulocytes Pct Auto 0.4 %; Mean Corpuscular HGB Conc 32 gm/dL (32-36); Mean Corpuscular Hemoglobin 31 pg (26-34); Mean Corpuscular Volume 97 fL (80-100); Monocytes Percent Auto 10.2 % (0.0-11.0); Neutrophils Percent Auto 76.4 % (42.0-72.0); Platelet Count* 122 K/uL (140-440); RDW Coefficient of Variation % 15.2 % (11.5-15.5); Red Blood Count 3.15 m/uL (4.30-5.90); White Blood Count* 7.43 K/uL (4.50-11.00)
[2024-09-30 13:23] LABS: Slide Review Reflex No
[2024-10-14 13:30] LABS: Basophils Absolute Auto 0.03 K/uL (0.00-0.30); Basophils Percent Auto 0.4 % (0.0-3.0); Eosinophils Absolute Auto 0.13 K/uL (0.00-0.50); Eosinophils Percent Auto 1.7 % (0.0-7.0); Hematocrit 32.2 % (37.0-53.0); Hemoglobin* 10.3 gm/dL (13.5-17.5); Immature Granulocytes Abs Auto 0.03 K/uL (0.00-0.30); Immature Granulocytes Pct Auto 0.4 %; Lymphocytes Percent Auto 8.6 % (20-44); Mean Corpuscular HGB Conc 32 gm/dL (32-36); Mean Corpuscular Hemoglobin 31 pg (26-34); Mean Corpuscular Volume 96 fL (80-100); Monocytes Percent Auto 10.6 % (0.0-11.0); Neutrophils Percent Auto 78.3 % (42.0-72.0); Platelet Count* 148 K/uL (140-440); RDW Coefficient of Variation % 14.8 % (11.5-15.5); Red Blood Count 3.35 m/uL (4.30-5.90); White Blood Count* 7.44 K/uL (4.50-11.00)
[2024-10-14 13:34] LABS: Slide Review Reflex No
== END 2024-10-22 23:59 | disposition home or self-care (01) ==
LOC: CCIC 13:00
PROVIDERS: Internal Medicine Nephrology; PCP Pediatrics; Referring Provider Pediatrics; Visit Provider Clinical Nurse Specialist
DX: N18.5 Chronic kidney disease, stage 5 (principal); D63.1 Anemia in chronic kidney disease
CPT/HCPCS: 36415; 80069; 82306; 82728; 83540; 83550; 83970; 85025; 96365; 96372; 99211; J0881; J7030; J7050; Q0138

== ENCOUNTER 2024-10-18 15:25 | Outpatient (CLI) | payer MEDICARE, SELFPAY | END 2024-10-18 15:26 | disposition home or self-care (01) | LOC: NFLDREF 10-21 14:30 | PROVIDERS: PCP Pediatrics; Referring Provider Pediatrics; Visit Provider Internal Medicine Nephrology | DX: N18.5 Chronic kidney disease, stage 5 (principal); I12.0 Hypertensive chronic kidney disease with stage 5 chronic kidney disease or end stage renal disease | CPT/HCPCS: 80048; 80069 ==